=== PATIENT | male | born 1965 | race Caucasian/White ===

== ENCOUNTER 2023-07-07 13:36 | Outpatient (OUT) | payer MEDICARE, SELFPAY ==
--- NOTE | 2023-07-07 13:42 | US_ITS ---
The [address] [address] Patient Name: LIMA LOYD MRN: [id number] date: 1965 Sex: M Assigned Patient Location: US Current Patient Location: Accession/Order Number: [id number] Exam Date: 07/07/2023 13:55 Report Date: 07/07/2023 14:39 At the request of: ANTONIO ALAS Procedure: US renal BI EXAMINATION: US renal BI HISTORY: Kidney Stones COMPARISON: Ultrasound kidneys 03/03/2023 TECHNIQUE: Ultrasound examination was performed of the kidneys and urinary bladder. FINDINGS: RIGHT KIDNEY: Contains several echogenic structures favoring nonobstructing stones. Normal renal cortical parenchymal echogenicity. Color Doppler demonstrates blood flow within the kidney. Kidney: 11.7 x 6.2 x 6.0 cm LEFT KIDNEY: Contain several echogenic structures favoring nonobstructing stones. Normal renal cortical parenchymal echogenicity. Color Doppler demonstrates blood flow within the kidney. Kidney: 11.4 x 6.0 x 6.8 cm BLADDER: No visible wall thickening, mass, or calculi. US/US renal BI IMPRESSION: 1. Bilateral nonobstructing nephrolithiasis. Electronically authenticated by: RIVAS KINCAID Date: 07/07/2023 14:39
--- NOTE | 2023-07-07 13:51 | XR_ITS ---
The [address] [address] Patient Name: LIMA LOYD MRN: [id number] date: 1965 Sex: M Assigned Patient Location: US Current Patient Location: US Accession/Order Number: [id number] Exam Date: 07/07/2023 13:45 Report Date: 07/07/2023 16:13 At the request of: ANTONIO ALAS Procedure: XR abdomen 1V EXAM: XR abdomen 1V at 1352 hours HISTORY: Kidney Stones . Follow-up study. COMPARISON: 10/05/2022 TECHNIQUE: AP supine abdomen KUB x-ray FINDINGS: There is been interval removal of the left-sided ureteral stent. There are several small calcifications in the right kidney which appear a bit more numerous. There are multiple calcifications seen in the left kidney which appears smaller and fewer. No calcifications are seen along the routes of the ureters or in the pelvis. Gas and fecal material is seen throughout the colon, without evidence of obstruction or localized ileus. A fusion procedure can be seen in the lower lumbar spine. XR/XR abdomen 1V IMPRESSION: There appears to be increase in the number of small calcifications in the right kidney, and decrease in the number and size of the calcifications projecting over the left kidney. The left ureteral stent has been removed. No calcifications are seen in the pelvis. The bowel gas pattern is unremarkable without evidence of bowel obstruction or localized ileus. Degenerative and postsurgical changes are seen in the spine. Electronically authenticated by: ENRIQUETA BELLE Date: 07/07/2023 16:13
== END 2023-07-07 13:37 | disposition home or self-care (01) ==
LOC: US 13:36
PROVIDERS: PCP Family Medicine; Visit Provider Urology
DX: N20.0 Calculus of kidney (principal)
CPT/HCPCS: 74018; 76775

== ENCOUNTER 2023-12-18 08:20 | Outpatient (OUT) | payer MEDICARE, SELFPAY ==
[2023-12-18 08:52] LABS: Basophils Absolute Auto 0.1 10^3/uL (0.0-0.1); Basophils Percent Auto 0.8 % (0.2-2.0); Eosinophils Absolute Auto 0.2 10^3/uL (0.0-0.7); Eosinophils Percent Auto 2.1 % (0.9-7.0); Hemoglobin 13.8 g/dL (14.0-18.0); Immature Granulocytes Abs Auto 0.09 10^3/uL (0.00-0.03); Lymphocytes Absolute Auto 2.6 10^3/uL (1.2-3.8); Lymphocytes Percent Auto 29.7 % (20.5-60.0); Mean Corpuscular HGB Conc 31.4 g/dL (29.9-35.2); Mean Corpuscular Hemoglobin 25.1 pg (25.9-34.0); Mean Platelet Volume 9.1 fL (9.5-13.5); Monocytes Absolute Auto 0.7 10^3/uL (0.3-0.8); Neutrophils Absolute Auto 5.1 10^3/uL (1.4-6.5); Neutrophils Percent Auto 58.4 % (43.0-75.0); Platelet Count 229 10^3/uL (150-450); Red Cell Distribution Width 14.4 % (11.0-15.0); White Blood Count 8.7 10^3/uL (4.0-11.0)
[2023-12-18 09:10] LABS: Alanine Aminotransferase 30 U/L (16-63); Albumin Globulin Ratio 1.1; Albumin Level 3.8 g/dL (3.4-5.0); Alkaline Phosphatase 64 U/L (46-116); Anion Gap 11.8; Aspartate Amino Transferase 13 U/L (15-37); BUN Creatinine Ratio 8.2; Bilirubin Total 0.4 mg/dL (0.2-1.0); Calcium 8.3 mg/dL (8.5-10.1); Chloride 105 mmol/L (98-107); Chol HDL Ratio 3.3; Cholesterol 144 mg/dL (<=200); Estimated GFR (African America 59 (>=60); Estimated GFR (Non-African Ame 49 (>=60); Free T3 2.55 pg/mL (2.18-3.98); Globulin 3.6 g/dL; Glucose 160 mg/dL (74-106); HDL Cholesterol 43 mg/dL (40-60); LDL Cholesterol Calculated 88.2 mg/dL; Potassium 3.8 mmol/L (3.5-5.1); Sodium 142 mmol/L (136-145); Thyroid Stimulating Hormone 0.986 uIU/mL (0.358-3.740); Total Protein 7.4 g/dL (6.4-8.2); Triglycerides 64 mg/dL (<=150); VLDL CHOLESTEROL 12.8 mg/dL
[2023-12-18 10:29] LABS: Estimated Average Glucose 148 mg/dL; Glycohemoglobin A1C 6.8 % (4.5-6.2)
== END 2023-12-18 08:21 | disposition home or self-care (01) ==
LOC: LAB 08:22
PROVIDERS: PCP Family Medicine; Visit Provider Family Medicine
DX: M54.16 Radiculopathy, lumbar region (principal); G47.00 Insomnia, unspecified; B37.0 Candidal stomatitis; E78.9 Disorder of lipoprotein metabolism, unspecified; R73.09 Other abnormal glucose
CPT/HCPCS: 36415; 80053; 80061; 83036; 84436; 84443; 84481; 85025

== ENCOUNTER 2024-08-07 11:47 | Outpatient (OUT) | payer MEDICARE, SELFPAY ==
--- OUTSIDE RECORDS SUMMARY | 2024-08-07 12:09 | XMS_ITS | CCD ---
Author Organization [facility] Care Team Providers Care General Surgeon Name Role Phone Gaurav Scott Unavailable Tomi Leach Unavailable Jeff Terrell Primary Care Physician MD Jeff Terrell Primary Care Provider DO Gaurav Scott Attending Provider [phone] MD Tomi Leach Attending Provider [phone] MD Patito Sweet Attending Provider Ramiro George Unavailable MD Jeff Terrell Primary Care Provider DO Gaurav Scott Attending Provider MD Jeff Terrell Primary Care Provider MD Tomi Leach Attending Provider [phone] MD Patito Sweet Attending Provider MD Jeff Terrell Primary Care Provider MD Tomi Leach Attending Provider MD Jeff Terrell Primary Care Provider MD Patito Sweet Attending Provider MD Jeff Terrell Primary Care Provider MD Patito Sweet Attending Provider MD Jeff Terrell Primary Care Provider MD Patito Sweet Attending Provider GALLO Flores-MACIE Chavez Emergency Provider [phone] SRIDHAR MCLAUGHLIN Consulting Unavailable HOY ., DR TRAN Primary Care Unavailable LUE ., PATITO M Attending Unavailable LUE ., PATITO M Admitting Unavailable LUE ., PATITO M Consulting Unavailable JULES HAJI Consulting Unavailable HOY ., DR TRAN Primary Care Unavailable LUE ., PATITO M Attending Unavailable LUE ., PATITO M Admitting Unavailable ZIEBER, DR RIVAS Pires Unavailable HOY ., DR TRAN Primary Care Unavailable LUE ., PATITO M Attending Unavailable LUE ., PATTIO M Admitting Unavailable LUE ., PATITO M Consulting Unavailable HOY ., DR TRAN Consulting Unavailable HOY ., DR TRAN Primary Care Unavailable HOY ., DR TRAN Attending Unavailable HOY ., DR TRAN Admitting Unavailable ZIEBER, DR RIVAS Verdugo Consulting Unavailable HOY ., DR TRAN Primary Care Unavailable LUE ., PATITO M Attending Unavailable LUE ., PATITO M Admitting Unavailable LUE ., PATITO M Consulting Unavailable LIMA CAMPOS Consulting Unavailable HOY ., DR TRAN Primary Care Unavailable LUE ., PATITO M Attending Unavailable LUE ., PATITO M Admitting Unavailable LUE ., PATITO M Consulting Unavailable EDMUND, DR MYRA Allen Consulting Unavailable HOY ., DR TRAN Primary Care Unavailable LUE ., PATITO Juan Attending Unavailable LUE ., PATITO M Admitting Unavailable LUE ., PATITO M Consulting Unavailable HOY ., DR TRAN Consulting Unavailable HOY ., DR TRAN Primary Care Unavailable HOY ., DR TRAN Attending Unavailable HOY ., DR TRAN Admjenae Unavailable MYRA PAREDES Unavailable ZIEBER, DR RIVAS Verdugo Consulting Unavailable HOY ., DR TRAN Primary Care Unavailable LUE ., PATITO M Attending Unavailable LUE ., PATITO M Admitting Unavailable LUE ., PATITO M Consulting Unavailable HOY ., DR TRAN Consulting Unavailable HOY ., DR TRAN Primary Care Unavailable HOY ., DR TRAN Attending Unavailable HOY ., DR TRAN Admitting Unavailable LUE ., PATITO Martinez Consulting Unavailable HOY ., DR TRAN Primary Care Unavailable LUE ., PATITO M Attending Unavailable LUE ., PATITO M Admitting Unavailable MD Jeff Terrell Primary Care Provider DO Gaurav Scott Attending Provider MD Patito Sweet Other Provider MD Jeff Terrell Primary Care Provider MD Tomi Leach Attending Provider [phone] MD Jeff Terrell Primary Care Provider Self, Referral Attending Provider Unavailable DO Gaurav Scott A Attending Provider MD Jeff Terrell Primary Care Provider MD Tomi Leach Attending Provider DO Gaurav Scott Attending Provider [phone] Self, Referral Attending Provider Unavailable CHARLI Black Emergency Provider MD Patito Sweet Attending Provider Janine Maynard Unavailable Melissa Castellano Unavailable MD Jeff Terrell Primary Care Provider MD Melissa Castellano Attending Provider MD Jeff Terrell Primary Care Provider DO Gaurav Scott Attending Provider MD Jeff Terrell Primary Care Provider MD Melissa Castellano Attending Provider MD Patito Sweet Attending Provider DO Gaurav Scott A Attending Provider [phone] MD Jeff Terrell Primary Care Provider MD Jeff Terrell Primary Care Provider MD Jeff Terrell Primary Care Provider DO Gaurav Scott Attending Provider [phone] MD Patito Sweet Attending Provider Patito Sweet Attending Unavailable Patito Sweet Attending Unavailable Patito Sweet Attending Unavailable Patito Sweet Attending Unavailable JANINE GARCIA Attending Unavailable Lue, Patito M. Attending Unavailable Lue, Patito M. Attending Unavailable Garrett MICHAEL Attending Unavailable Lue, Patito M. Attending Unavailable Lue, Patito M. Referring Unavailable Lue, Patito M. Admitting Unavailable Lue, Patito M. Attending Unavailable MD Jeff Terrell Primary Care Provider [phone] DO Gaurav Scott Attending Provider DO Gaurav Scott Attending Provider [phone] Melissa Castellano Admitting Unavailable Melissa Castellano Attending Unavailable Hoy, Jeff M Primary Care Unavailable Hoy, Jeff M Primary Care Unavailable Sofia, Tony Admitting Unavailable Sofia, Tony Attending Unavailable IlanerTomi Attending Unavailable Felter Tomi Admitting Unavailable Hoy, Jeff M Primary Care Unavailable Self, Referral Admitting Unavailable Self, Referral Attending Unavailable Hoy, Jeff M Primary Care Unavailable Hoy, Jeff M Primary Care Unavailable Lue, Patito M Admitting Unavailable Lue, Patito M Attending Unavailable Davida, Gaurav A Admitting Unavailable Hoy, Jeff M Primary Care Unavailable Davida, Gaurav A Attending Unavailable Hoy, Jeff M Primary Care Unavailable Davida, Gaurav A Attending Unavailable Davida, Gaurav A Admitting Unavailable Hoy, Jeff M Primary Care Unavailable Lue, Patito M Admitting Unavailable Lue, Patito M Attending Unavailable Hoy, Jeff M Primary Care Unavailable Davida, Gaurav A Attending Unavailable Davida, Gaurav A Admitting Unavailable Hoy, Jeff M Primary Care Unavailable Davida, Gaurav A Admitting Unavailable Davida, Gaurav A Attending Unavailable Lue, Patito M Admitting Unavailable Lue, Patito M Attending Unavailable Hoy, Jeff M Primary Care Unavailable Hoy, Jeff M Primary Care Unavailable Davida, Gaurav A Admitting Unavailable Davida, Gaurav A Attending Unavailable Jeff Terrell MD Primary Care Provider [phone] VENKAT PAREDES Attending Unavailable Allergies Allergy Classification Reported Allergen(s) Allergy Type Date of Onset Reaction(s) Facility (20 sources) Amoxicillin / Clavulanate; Translations: [amoxicillin-cla vulanate] Drug Allergy hives, Unknown (qualifier value), Weal (disorder) [facility] Other Comment on above: listed as allergy on 05/26/22 pt states he has no issues with this medicaiton (20 sources) Morphine; Translations: [morphine] Drug Allergy 02-23-20 17 hives, Unknown (qualifier value), Itching [facility] Other Comment on above: all in morphine fami ly (20 sources) traMADol Drug Allergy 02-08-20 21 Unknown, Itching [facility] (20 sources) Bee/Wasp/Ant venom; Translations: [Bee Stings] Drug allergy 02-29-20 23 Swelling [facility] (20 sources) Amoxicillin Drug Allergy 02-06-20 21 [facility] (20 sources) Clavulanate Drug Allergy 02-06-20 21 [facility] (10 sources) oxyCODONE Drug Allergy 02-06-20 21 [facility] (14 sources) Ciprofloxacin; Translations: [ciprofloxacin] Drug Allergy Unknown (qualifier value) [facility] (11 sources) Amoxicillin / Clavulanate; Translations: [Augmentin] Drug Allergy 04-28-20 13 hives [facility] (2 sources) Acetaminophen / oxyCODONE Drug Allergy 11-03-19 17 [facility] (1 source) bee venom Drug allergy (disorder) [facility] (2 sources) Morphine Drug Allergy 11-03-19 17 [facility] (1 source) traMADol Drug Allergy 06-07-20 16 [facility] (2 sources) Morphine Drug Allergy [facility] Other (2 sources) Amoxicillin-Pot Clavulanate Drug Intolerance 02-23-20 17 Hives, Itching, Rash, Swelling [facility] Medications Current Medications Medication Drug Class(es) Dates Sig (Normalized) Sig (Original) acetaminophen 500 mg oral tablet (20 sources) Start: 03-04-2021 take 2 tablets by mouth every six hours as needed for pain acetaminophen 500 mg Tab 1,000 mg = 2 tab(s), Oral, q6hr, PRN as needed for pain, Refills(s) 0 Start Date: 03/04/21 Status: Ordered Start: 03-04-2021 acetaminophen 500 mg Tab Refills(s) 0 Start Date: 03/04/21 Status: Ordered Start: 02-12-2021 End: 08-12-2022 take 500 mg by mouth every six hours Acetaminophen Discontinued 500 MG PO Q6H 120 30 February 12, 2021 12:00am August 12, 2022 1:40pm Start: 02-05-2021 End: 02-12-2021 take 1000 mg by mouth every eight hours Acetaminophen Discontinued 1000 MG PO Q8H February 05, 2021 12:00am February 12, 2021 8:59am ALPRAZolam 0.25 mg oral tablet (20 sources) Benzodiazepine Start: 09-26-2023 Xanax 0.25 mg Tab 0.25 mg = 1 tab(s), Oral, PRN for anxiety Start Date: 09/26/23 Status: Ordered Start: 09-30-2022 End: 11-29-2022 take 0.25 mg by mouth once daily at bedtime Alprazolam Discontinued 0.25 MG PO Daily at bedtime September 30, 2022 1:00am November 29, 2022 10:09am Start: 09-21-2022 take 0.5-1 tablets b y mouth three times daily as needed for anxiety alprazolam 0.25 mg Tab 0.5-1 tabs, Oral, TID, PRN as needed for anxiety, Refills(s) 0 Start Date: 09/21/22 Status: Ordered Start: 09-21-2022 alprazolam 0.2 5 mg Tab 21 tab(s), Refills(s) 0 Start Date: 09/21/22 Status: Ordered Xanax Active amitriptyline hydrochloride 50 mg oral tablet (19 sources) Tricyclic Antidepressant Start: 10-30-2023 take 50 mg by mouth once daily Amitriptyline Active 50 MG PO Daily October 30, 2023 1:00am celecoxib 200 mg oral capsule (20 sources) Nonsteroidal Anti-inflammatory Drug Start: 12-02-2023 take 1 capsule by mouth twice daily at mealtime Celecoxib Active 200 MG PO December 02, 2023 1:00am FreeTextSig: TAKE ONE CAPSULE BY MOUTH TWICE A DAY WITH FOOD; Note: Source Status: Not-Taking\PRN; Refills: 3; Qty: 60 Capsule; Provider: Davida Nolasco ( ) Start: 05-09-2022 End: 11-29-2022 take 200 mg by mouth twice daily Celecoxib Discontinued 200 MG PO Twice daily July 26, 2022 12:00am November 29, 2022 10:10am clindamycin 300 mg oral capsule (2 sources) Lincosamide Antibacterial Start: 06-15-2021 Clindamycin HCl 300 MG 2 capsules Orally 1 hour before dental procedure for 1 day May, Active cyclobenzaprine hydrochloride 10 mg oral tablet (20 sources) Muscle Relaxant Start: 07-18-2024 cyclobenzaprin e (Flexeril) 10 MG tablet 07/18/2024 Active Start: 02-01-2023 take 0.5-1 tablets b y mouth every eight hours Cyclobenzaprine HCl 10 MG 1/2 to 1 tablet Orally Every 8 hours for 14 days Jan, Active Start: 08-12-2022 End: 08-15-2023 take 10-20 mg by mouth once daily at bedtime Cyclobenzaprine Discontinued 10 - 20 MG PO Daily at bedtime August 12, 2022 12:00am August 15, 2023 9:37am Start: 08-02-2022 take 1 tablet by marcela twice daily as needed Cyclobenzaprine HCl 10 MG 1 tablet as needed Orally up to twice daily as needed for 30 day(s) Nov, Not-Taking/PRN Start: 02-02-2021 End: 02-05-2021 Cyclobenzaprine Discontinued 5 MG PO As Directed February 02, 2021 12:00am February 05, 2021 6:50pm fluconazole 100 mg oral tablet (5 sources) Azole Antifungal Start: 11-03-2023 fluconazole 1 00 mg Tab Refills(s) 0 Start Date: 11/03/23 Status: Ordered Start: 10-21-2022 End: 11-04-2022 fluconazole 200 mg Tab 200 m g = 1 tab(s), Oral, Daily, Discontinue Cipro for ear infection while taking Fluconazole. Can restart Cipro once Fluconazole course is completed., X 14 day(s), # 14 tab(s), Refills(s) 0, Pharmacy: [facility] [id number], 188, cm, 09/21/22 8:23:0... Start Date: 10/21/22 Stop Date: 11/04/22 Status: Ordered furosemide 40 mg oral tablet (10 sources) Loop Diuretic Start: 10-21-2022 furosemide 40 mg Tab Refills(s) 0 Start Date: 10/21/22 Status: Ordered gabapentin 600 mg oral tablet (20 sources) Anti-epileptic Agent Start: 10-30-2023 take 1 tablet by mouth three times daily gabapentin (Neurontin) 600 MG tablet 1 tablet Orally three times daily for 30 days 10/30/2023 Active Start: 06-14-2022 End: 10-30-2023 take 300 mg by mouth twice daily Gabapentin Discontinued 300 MG PO Twice daily June 14, 2022 8:26am October 30, 2023 8:50am Start: 06-14-2022 take 600 mg by mouth twice daily Gabapentin Active 600 MG PO Twice daily June 14, 2022 8:26am Start: 06-14-2022 take 600 mg by mouth twice daily Gabapentin Active 600 MG PO Twice daily June 14, 2022 8:26am Start: 05-26-2022 take 1 tablet by marcela twice daily gabapentin 600 mg Tab 600 mg = 1 tab(s), Oral, BID, Refills(s) 0 Start Date: 05/26/22 Status: Ordered Start: 02-05-2021 End: 06-14-2022 take 300 mg by mouth three times daily Gabapentin Discontinued 300 MG PO Three times daily 90 30 February 12, 2021 12:00am June 14, 2022 8:26am Start: 09-28-2017 End: 02-05-2021 take 1200 mg by mouth at bedtime Gabapentin Discontinued 1200 MG PO Bedtime September 28, 2017 1:00am February 05, 2021 5:19pm take 2 tablets by mo [facility] every twenty-four hours Gabapentin 600 MG 2 capsule Orally Once a day Active hyoscyamine sulfate 0.125 mg oral tablet (8 sources) Start: 12-21-2022 take 1 tablet by mouth four times daily as needed for pain Levsin 0.125 mg SL Tab 0.125 mg = 1 tab(s), Oral, QID, PRN abdominal pain, # 90 tab(s), Refills(s) 2, Pharmacy: [facility] [id number], 188, cm, 12/21/22 7:44:00 EST, Height/Length Dosing, 132, kg, 12/21/22 7:44:00 EST, Weight Dosing Start Date: 12/21/22 Status: Ordered Start: 10-05-2022 take 1 tablet by marcela th four times daily as needed for pain Levsin 0.125 mg SL Tab 0.125 mg = 1 tab(s), Oral, QID, PRN abdominal pain, Refills(s) 0 Start Date: 10/05/22 Status: Ordered ibuprofen 800 mg oral tablet (5 sources) Nonsteroidal Anti-inflammatory Drug Start: 05-03-2021 take 1 tablet by mouth three times daily at mealtime as needed Ibuprofen 800 MG 1 tablet with food or milk as needed Orally Three times a day for 30 days Apr, Active irbesartan 300 mg oral tablet (20 sources) Angiotensin 2 Receptor Elli Start: 06-23-2024 irbesartan (Avapro) 300 MG tablet 06/23/2024 Active Start: 02-02-2021 End: 12-02-2023 take 300 mg by mouth once daily in the morning Irbesartan Discontinued 300 MG PO Every morning February 28, 2023 9:05am December 02, 2023 3:57pm Iron Chews (12 sources) Start: 09-21-2022 take 1 mg by mouth once daily Iron Chews mg, Oral, Daily, Refills(s) 0 Start Date: 09/21/22 Status: Ordered levoFLOXacin 500 mg oral tablet (5 sources) Quinolone Antimicrobial Start: 09-26-2023 End: 09-29-2023 take 1 tablet by mouth every twenty-four hours Levaquin 500 mg Tab 500 mg = 1 tab(s), Oral, q24hr, X 3 day(s), # 3 tab(s), Refills(s) 0, Pharmacy: [facility] [id number], 187, cm, 09/26/23 7:40:00 EST, Height/Length Dosing, 138.9, kg, 09/26/23 7:40:00 EST, Weight Dosing Start Date: 09/26/23 Stop Date: 09/29/23 Status: Ordered Start: 11-04-2022 End: 11-18-2022 take 1 tablet by mouth once daily Levaquin 500 mg Tab 500 mg = 1 tab(s), Oral, Daily, X 14 day(s), # 14 tab(s), Refills(s) 0, Pharmacy: [facility] [id number], 188, cm, 11/04/22 9:22:00 EST, Height/Length Dosing, 132, kg, 11/04/22 9:22:00 EST, Weight Dosing Start Date: 11/04/22 Stop Date: 11/18/22 Status: Ordered levoFLOXacin 750 MG (Prior Auth#:[id number]) Oral for 10 Active lidocaine 0.05 mg/mg medicated patch (6 sources) Antiarrhythmic, Amide Local Anesthetic Start: 11-18-2022 lidocaine Top 5% satinder m Patch 1 patch(es), Topical, Daily, 7 patch(es), Refill(s) 3, apply 12 hours on and 12 hours off daily, [facility] [id number], 188, cm, 11/04/22 9:22:00 EST, Height/Length Dosing, 132, kg, 11/04/22 9:22:00 EST, Weight Dosing Start Date: 11/18/22 Status: Ordered Start: 10-21-2022 End: 10-28-2022 lidocaine Top 5% film Patch 1 patch(es), Topical, Daily for 7 day(s), 7 patch(es), Refill(s) 0, Apply to affected area for up to 12 hours a day., [facility] [id number], 188, cm, 09/21/22 8:23:00 EST, Height/Length Dosing, 132, kg, 09/21/22 8:23:00 EST, Weight Dosing Start Date: 10/21/22 Stop Date: 10/28/22 Status: Ordered methylPREDNISolone 4 mg oral tablet (14 sources) Corticosteroid Start: 04-29-2024 take 1 tablet by mouth once Methylprednisolone (Medrol (Lee)) 4 mg tablets,dose pack Active 0 PO per package directions April 29, 2024 12:00am PO PER PKG DIR for 6 days Start: 10-25-2023 Medrol 4 MG as directed Orally Oct, Active Start: 05-09-2022 Medrol 4 MG as directed Orally for 6 days Apr, Active naproxen 500 mg oral tablet (17 sources) Nonsteroidal Anti-inflammatory Drug Start: 12-02-2023 take 1 tablet by mouth every twelve hours at mealtime as needed Naproxen Active 500 MG PO Every 12 hours December 02, 2023 1:00am FreeTextSi tablet with food or milk as needed Orally every 12 hrs; Note: Source Status: Taking; Refills: 1; Qty: 60 Tablet; Provider: Davida Nixon Start: 10-25-2023 take 1 tablet by marcela th every twelve hours at mealtime as needed Naproxen 500 MG 1 tablet with food or milk as needed Orally every 12 hrs for 30 days Oct, Active Start: 07-13-2023 End: 07-27-2023 take 1 tablet by mouth twice daily at mealtime naproxen 500 mg Tab 500 mg = 1 tab(s), Oral, BID, Take with food, X 2 week(s), # 28 tab(s), Refills(s) 0, Pharmacy: [facility] [id number], 188, cm, 07/13/23 9:45:00 EDT, Height/Length Dosing, 132, kg, 07/13/23 9:45:00 EDT, Weight Dosing Start Date: 07/13/23 Stop Date: 07/27/23 Status: Ordered oxybutynin chloride 5 mg oral tablet (20 sources) Cholinergic Muscarinic Antagonist Start: 09-26-2023 take 1 tablet by mouth three times daily oxybutynin 5 mg Tab 5 mg = 1 tab(s), Oral, TID, # 30 tab(s), Refills(s) 0, Pharmacy: [facility] [id number], 187, cm, 09/26/23 7:40:00 EST, Height/Length Dosing, 138.9, kg, 09/26/23 7:40:00 EST, Weight Dosing Start Date: 09/26/23 Status: Ordered Start: 11-29-2022 End: 08-15-2023 take 5 mg by mouth twice daily Oxybutynin Chloride Dis continued 5 MG PO Twice daily November 29, 2022 1:00am August 15, 2023 9:37am Start: 09-30-2022 End: 11-29-2022 take 5 mg by mouth three times daily Oxybutynin Chloride Discontinued 5 MG PO Three times daily 60 September 30, 2022 1:00am November 29, 2022 10:11am potassium citrate 10 meq extended release oral tablet (6 sources) Start: 08-18-2023 take 1 tablet by mouth twice daily potassium CITRATE 10 mEq ER Tab 10 mEq, 1 tab(s), Oral, BID, 180 tab(s), Refill(s) 3, [facility] [id number], 188, cm, 08/18/23 10:17:00 EDT, Height/Length Dosing, 132, kg, 08/18/23 10:17:00 EDT, Weight Dosing Start Date: 08/18/23 Status: Ordered Start: 05-31-2023 take 1 tablet by marcela th twice daily potassium CITRATE 10 mEq ER Tab 10 mEq, 1 tab(s), Oral, BID, 90 tab(s), Refill(s) 0, [facility] [id number], 188, cm, 05/31/23 8:37:00 EDT, Height/Length Dosing, 132, kg, 05/31/23 8:37:00 EDT, Weight Dosing Start Date: 05/31/23 Status: Ordered QUEtiapine 50 mg oral tablet (1 source) Atypical Antipsychotic Start: 08-18-2023 quetiapine 50 mg oral tablet Refills(s) 0 Start Date: 08/18/23 Status: Ordered sulfamethoxazole 800 mg / trimethoprim 160 mg oral tablet (1 source) Dihydrofolate Reductase Inhibitor Antibacterial, Sulfonamide Antimicrobial Start: 07-13-2023 End: 08-10-2023 take 1 tablet by mouth twice daily Bactrim D.S. 800 mg-160 mg Tab 1 tab(s), Oral, BID for 4 week(s), 56 tab(s), Refill(s) 0, [facility] [id number], 188, cm, 07/13/23 9:45:00 EDT, Height/Length Dosing, 132, kg, 07/13/23 9:45:00 EDT, Weight Dosing Start Date: 07/13/23 Stop Date: 08/10/23 Status: Ordered tadalafil 20 mg oral tablet (20 sources) Phosphodiesterase 5 Inhibitor Start: 05-09-2024 tadalafil (Cialis) 20 MG tablet Take 20 mg by mouth 05/09/2024 Active Start: 05-09-2024 Cialis 20 mg T ab 20 mg = 1 tab(s), Oral, As Directed, Take one tab by mouth one to two hours prior to sexual activity. Do NOT exceed 20 mg (1 tab) in 24 hours., # 30 tab(s), Refills(s) 3, Pharmacy: [facility] [id number], 188, cm, 05/09/24 10:10:00 EDT, Height/Length Dosing, 144, kg, 05/09/24 10:10:00 EDT, Weight Dosing Start Date: 05/09/24 Status: Ordered Start: 05-31-2023 take 1 tablet by marcela th every hour as needed, then take 2 tablets by mouth every twenty-four hours as needed Cialis 10 mg Tab 10 mg = 1 tab(s), Oral, As Directed, PRN for erectile dysfunction, Take one hour prior to sexual intercourse. Do not exceed 20mg within 24 hrs., # 30 tab(s), Refills(s) 0, Pharmacy: [facility] [id number], 188, cm, 05/31/23 8:37:00 EDT, Height/Length Dosing, 132, kg, 05/31/23 8:37:00 EDT, Weight Dosing Start Date: 05/31/23 Status: Ordered Start: 09-21-2022 take 1 tablet by marcela th every twenty-four hours Cialis 5 MG 1 tablet as needed Orally Once a day for 30 day(s) Nov, Active Start: 09-21-2022 End: 10-30-2023 take 1 tablet by mouth once daily in the morning Tadalafil (Cialis) 10 mg Tablet Discontinued 5 MG PO Every morning September 30, 2022 1:00am October 30, 2023 8:49am Start: 06-22-2022 take 1 mg by mouth once daily Cialis 20 mg Tab mg tab(s), Oral, Daily, Refills(s) 0 Start Date: 06/22/22 Status: Ordered temazepam 30 mg oral capsule (20 sources) Benzodiazepine Start: 12-02-2023 temazepam (Res toril) 30 MG capsule 12/02/2023 Active Start: 05-26-2022 End: 01-15-2024 take 30 mg by mouth once daily at bedtime Temazepam Discontinued 30 MG PO Daily at bedtime August 12, 2022 12:00am October 30, 2023 8:50am traMADol hydrochloride 50 mg oral tablet (20 sources) Opioid Agonist Start: 02-28-2023 End: 12-02-2023 take 50 mg by mouth every four hours Tramadol Discontinued 50 MG PO Q4H 14 August 29, 2023 1:00am October 30, 2023 8:51am Start: 02-07-2023 End: 05-20-2024 traMADol (Ultram) 50 MG tabl et Twice daily 08/18/2023 Active Start: 07-26-2022 End: 11-29-2022 Tramadol Discontinued 50 MG PO As Directed July 26, 2022 12:00am November 29, 2022 10:12am Start: 07-26-2022 End: 11-29-2022 take 1 tablet by mouth every twenty-four hours traMADol HCl 50 MG 1 tablet as needed Orally Once a day for 30 days Jul, Not-Taking/PRN Start: 07-26-2022 End: 11-29-2022 take 1 tablet by mouth every six hours traMADOL 50 mg Tab 50 mg = 1 tab(s), Oral, q6hr, # 12 tab(s), Refills(s) 0, Pharmacy: [facility] [id number], 188, cm, 11/04/22 9:22:00 EST, Height/Length Dosing, 132, kg, 11/04/22 9:22:00 EST, Weight Dosing Start Date: 11/18/22 Status: Ordered Start: 06-27-2022 take 1 tablet by marcela th every twenty-four hours traMADol HCl 50 MG 1 tablet as needed Orally Once a day for 30 days Jun, Active Start: 03-03-2021 take 1 tablet by marcela th every twenty-four hours traMADol HCl 50 MG 1 tablet as needed Orally Once a day February, Not-Taking Start: 02-12-2021 End: 06-14-2022 take 50 mg by mouth every four hours Tramadol Discontinued 50 MG PO Q4H 40 7 February 12, 2021 12:00am June 14, 2022 8:26am Start: 02-05-2021 End: 02-12-2021 take 100 mg by mouth every six hours Tramadol Discontinued 100 MG PO Q6H February 05, 2021 12:00am February 12, 2021 8:59am Completed/Discontinued Medications Medication Drug Class(es) Dates Sig (Normalized) Sig (Original) acetaminophen 325 mg / HYDROcodone bitartrate 5 mg oral tablet (20 sources) Opioid Agonist Start: 10-30-2023 End: 12-04-2023 take 1 tablet by mouth every four to six hours Hydrocodone-Acetami nophen Discontinued 1 - 2 TAB PO EVERY 4-6 HOURS 12 02October 30, 2023 December 04, 2023 9:43am Start: 09-26-2023 End: 09-29-2023 take 1 tablet by mouth every six hours for pain [place] 325 mg-5 mg oral tablet 1 tab(s), Oral, q6hr for pain for 3 day(s), 12 tab(s), Refill(s) 0, [facility] [id number], 187, cm, 09/26/23 7:40:00 EST, Height/Length Dosing, 138.9, kg, 09/26/23 7:40:00 EST, Weight Dosing Start Date: 09/26/23 Stop Date: 09/29/23 Status: Ordered Start: 04-25-2023 End: 08-15-2023 take 1 tablet by mouth every four hours Hydrocodone-Acetaminophen Discontinued 1 TAB PO Q4H 10 April 25, 2023 August 15, 2023 9:37am Start: 11-24-2022 take 1 tablet by marcela three times daily as needed HYDROcodone-Acetaminophen 5-325 MG 1 tablet as needed Orally up to three times daily as needed for 7 days Nov, Not-Taking/PRN Start: 10-21-2022 acetaminophen- hydrocodone 325 mg-5 mg oral tablet Refill(s) 0 Start Date: 10/21/22 Status: Ordered Start: 09-30-2022 End: 02-28-2023 take 1 tablet by mouth every six hours Hydrocodone-Acetaminophen Discontinued 1 TAB PO Q6H 12 January 30, 2023 February 28, 2023 9:03am Start: 01-12-2018 End: 11-24-2020 take 1 tablet by mouth every four hours as needed for pain Hydrocodone-Acetaminophen ([place]) 5-325 mg tablet Discontinued 1 TAB PO Q4H January 12, 2018 November 24, 2020 11:16am 1 or 2 p.o. q 4 hours prn pain Start: 09-28-2017 End: 11-24-2020 take 1 tablet by mouth every four to six hours Hydrocodone-Acetaminophen ([place]) 5-325 mg tablet Discontinued 1 TAB PO EVERY 4-6 HOURS September 28, 2017 November 24, 2020 11:15am ARIPiprazole 5 mg oral tablet (20 sources) Atypical Antipsychotic Start: 09-28-2017 End: 11-24-2020 take 1 tablet by mouth at bedtime Aripiprazole (Abilify) 5 mg Tablet Discontinued 5 MG PO Bedtime September 28, 2017 1:00am November 24, 2020 11:11am aspirin 81 mg delayed release oral tablet (20 sources) Platelet Aggregation Inhibitor, Nonsteroidal Anti-inflammatory Drug Start: 08-12-2022 End: 11-29-2022 take 81 mg by mouth once daily at bedtime Aspirin Discontinued 81 MG PO Daily at bedtime August 12, 2022 1:38pm November 29, 2022 10:09am Start: 03-04-2021 aspirin 81 mg Chew Tab 81 mg = 1 tab(s), Chewed, Daily, Refills(s) 0 Start Date: 03/04/21 Status: Ordered Start: 02-17-2021 aspirin 81 mg Chew Tab Refills(s) 0 Start Date: 03/04/21 Status: Ordered Start: 02-05-2021 End: 08-12-2022 take 81 mg by mouth twice daily Aspirin Discontinued 81 MG PO Twice daily February 12, 2021 8:58am August 12, 2022 1:40pm baclofen 20 mg oral tablet (20 sources) gamma-Aminobutyric Acid-ergic Agonist Start: 02-12-2021 End: 06-14-2022 take 20 mg by mouth once daily in the morning Baclofen Discontinued 20 MG PO Every morning February 12, 2021 12:00am June 14, 2022 8:25am Start: 11-24-2020 End: 06-14-2022 take 40 mg by mouth once daily at bedtime Baclofen Discontinued 40 MG PO Daily at bedtime February 12, 2021 12:00am June 14, 2022 8:26am Start: 09-28-2017 End: 02-12-2021 take 20 mg by mouth once daily in the morning Baclofen Discontinued 20 MG PO Every morning September 28, 2017 1:00am February 12, 2021 8:59am ciprofloxacin 500 mg oral tablet (20 sources) Quinolone Antimicrobial Start: 11-02-2022 End: 11-29-2022 take 1 tablet by mouth twice daily Ciprofloxacin Hcl (Cipro) 500 mg tablet Discontinued 500 MG PO Twice daily November 02, 2022 1:00am November 29, 2022 10:10am citalopram 40 mg oral tablet (20 sources) Serotonin Reuptake Inhibitor Start: 09-28-2017 End: 08-12-2022 take 40 mg by mouth at bedtime Citalopram Discontinued 40 MG PO Bedtime 30 February 12, 2021 12:00am August 12, 2022 1:40pm take 0.5 tablet by m outh every twenty-four hours CeleXA 40 MG 0.5 tablet Orally Once a day Active diclofenac potassium 50 mg oral tablet (20 sources) Nonsteroidal Anti-inflammatory Drug Start: 09-28-2017 End: 01-12-2018 Diclofenac Potassium Discontinued TABLET September 28, 2017 1:00am January 12, 2018 8:02am Voltaren 1 % dimas ly 1-2 grams to affected area Externally BID Active docusate sodium 100 mg oral capsule (20 sources) Start: 01-28-2021 End: 06-14-2022 take 1 capsule by mouth twice daily Docusate Sodium (Dok) 100 mg Capsule Discontinued 100 MG PO Twice daily 60 February 12, 2021 12:00am June 14, 2022 8:26am doxycycline hyclate 100 mg oral tablet (14 sources) Tetracycline-class Drug Start: 10-30-2023 End: 12-02-2023 take 100 mg by mouth twice daily Doxycycline Hyclate Discontinued 100 MG PO Twice daily 10 October 30, 2023 1:00am December 02, 2023 3:55pm lisinopril 20 mg oral tablet (20 sources) Angiotensin Converting Enzyme Inhibitor Start: 09-28-2017 End: 02-03-2021 take 40 mg by mouth once daily Lisinopril Discontinued 40 MG PO Daily September 28, 2017 1:00am February 03, 2021 9:28am take 1 tablet by marcela th every twenty-four hours Lisinopril 40 MG 1 tablet Orally Once a day Active meloxicam 15 mg oral tablet (20 sources) Nonsteroidal Anti-inflammatory Drug Start: 02-02-2021 End: 02-05-2021 take 15 mg by mouth once daily Meloxicam Discontinued 15 MG PO Daily February 02, 2021 12:00am February 05, 2021 5:19pm Multivitamin preparation (20 sources) Start: 11-24-2020 End: 02-12-2021 take 2 tablets by mouth once daily in the morning Multivitamin Discontinued 2 TAB PO Every morning November 24, 2020 12:00am February 12, 2021 7:59am Start: 11-24-2020 End: 02-12-2021 take 2 tablets by mouth once daily in the morning Multivitamin Discontinued 2 TAB PO Every morning November 24, 2020 1:00am February 12, 2021 8:59am Multivitamin With Folic Acid (Thera) 400 mcg Tablet (20 sources) Start: 02-12-2021 End: 11-29-2022 take 2 tablets by mouth once daily in the morning Multivitamin With Folic Acid (Thera) 400 mcg Tablet Discontinued 2 TAB PO Every morning 60 February 12, 2021 12:00am November 29, 2022 10:11am Start: 02-12-2021 End: 11-29-2022 take 2 tablets by mouth once daily in the morning Multivitamin With Folic Acid (Thera) 400 mcg Tablet Discontinued 2 TAB PO Every morning 60 February 11, 2021 11:00pm November 29, 2022 9:11am Start: 02-12-2021 take 2 tablets by mo uth once daily in the morning Multivitamin With Folic Acid (Thera) 400 mcg Tablet Active 2 TAB PO Every morning 60 February 11, 2021 11:00pm Start: 02-12-2021 take 2 tablets by mo uth once daily in the morning Multivitamin With Folic Acid (Thera) 400 mcg Tablet Active 2 TAB PO Every morning 60 February 12, 2021 12:00am nabumetone 500 mg oral tablet (20 sources) Nonsteroidal Anti-inflammatory Drug Start: 11-24-2020 End: 02-02-2021 take 1000 mg by mouth twice daily Nabumetone Discontinued 1000 MG PO Twice daily November 24, 2020 1:00am February 02, 2021 7:53am Nabumetone 500 M G (Prior Auth#:[id number]) Oral for 30 Active phentermine hydrochloride 37.5 mg oral tablet (20 sources) Sympathomimetic Amine Anorectic Start: 02-02-2021 End: 02-05-2021 take 1 tablet by mouth once daily in the morning Phentermine (Adipex-P) 37.5 mg Tablet Discontinued 37.5 MG PO Every morning February 02, 2021 12:00am February 05, 2021 5:19pm polysaccharide iron complex 150 mg oral capsule (20 sources) Start: 02-12-2021 End: 06-14-2022 Polysaccharide Iron Complex (Ferrex 150) 150 mg iron Capsule Discontinued 150 MG PO Every morning February 12, 2021 12:00am June 14, 2022 8:26am predniSONE 50 mg oral tablet (20 sources) Start: 01-30-2023 End: 02-28-2023 take 50 mg by mouth once daily at mealtime Prednisone Discontinued 50 MG PO Daily 5 January 30, 2023 12:00am February 28, 2023 9:03am administer with food or milk tamsulosin hydrochloride 0.4 mg oral capsule (20 sources) alpha-Adrenergic Elli Start: 08-23-2022 End: 11-29-2022 take 0.4 mg by mouth once daily at bedtime Tamsulosin Discontinued 0.4 MG PO Daily at bedtime September 30, 2022 1:00am November 29, 2022 10:11am Start: 02-05-2021 End: 06-14-2022 take 0.4 mg by mouth once daily in the morning Tamsulosin Discontinued 0.4 MG PO Every morning February 12, 2021 12:00am June 14, 2022 8:26am triamcinolone acetonide 40 mg/ml injectable suspension (20 sources) Corticosteroid Start: 09-20-2023 Kenalog-40 Sep, 40 mg Start: 02-20-2018 Kenalog -40 mg February, 40 mg Walker - (5 sources) Start: 12-04-2020 John - jillian ann Nov, Not-Taking Problems Active Problems Problem Classification Problem Date Documented Date Episodic/Chronic Abdominal pain (2 sources) Unspecified abdominal pain Episodic Acute and unspecified renal failure (20 sources) Injury of kidney; Translations: [Acute kidney failure, unspecified] 02-09-2021 Episodic Acute posthemorrhagic anemia (20 sources) Anemia following acute postoperative blood loss; Translations: [Acute posthemorrhagic anemia] 02-06-2021 Episodic Administrative/social admission (20 sources) Other reduced mobility; Translations: [Impaired mobility and activities of daily living] 02-06-2021 Episodic Anxiety disorders (14 sources) Anxiety 10-05-2022 Chronic Calculus of urinary tract (20 sources) Kidney stone; Translations: [Calculus of kidney] Onset: 06-22-2022 Episodic Complications of surgical procedures or medical care (20 sources) Postoperative retention of urine; Translations: [Other postprocedural complications and disorders of genitourinary system] 02-04-2021 Episodic Congestive heart failure; nonhypertensive (1 source) Unspecified diastolic (congestive) heart failure; Translations: [UNSPECIFIED DIASTOLIC HEART FAILURE] Onset: 10-03-2022 Chronic Crushing injury or internal injury (5 sources) Contusion of kidney; Translations: [Minor contusion of unspecified kidney, initial encounter] Onset: 10-13-2022 Episodic Diseases of white blood cells (20 sources) Leukocytosis; Translations: [Elevated white blood cell count, unspecified] 02-06-2021 Chronic Essential hypertension (15 sources) Hypertensive disorder; Translations: [Essential (primary) hypertension] Onset: 01-19-2023 10-05-2022 Chronic Genitourinary symptoms and ill-defined conditions (20 sources) Blood in urine; Translations: [Gross hematuria] Onset: 06-08-2022 Episodic Hyperplasia of prostate (20 sources) Benign prostatic hypertrophy with outflow obstruction; Translations: [Benign prostatic hyperplasia with lower urinary tract symptoms] Onset: 07-12-2022 Chronic Hypertension with complications and secondary hypertension (4 sources) Hypertensive heart disease with heart failure; Translations: [HTN HEART DISEASE W/HEART FAIL] Onset: 09-29-2022 Chronic Inflammatory conditions of male genital organs (6 sources) Prostatitis; Translations: [Inflammatory disease of prostate, unspecified] Onset: 07-13-2023 Episodic Joint disorders and dislocations; trauma-related (20 sources) Tear of medial meniscus of knee; Translations: [Other tear of medial meniscus, current injury, left knee, initial encounter] Episodic Mood disorders (20 sources) Depressive disorder; Translations: [Chronic depression] 03-04-2021 Chronic Mycoses (2 sources) Pain in toe; Translations: [Tinea unguium] 08-05-2024 Episodic Open wounds of extremities (18 sources) Laceration of finger; Translations: [Laceration without foreign body of unspecified finger without damage to nail, initial encounter] 2023 Episodic Open wounds of head; neck; and trunk (18 sources) Laceration - injury; Translations: [Laceration] 2023 Episodic Osteoarthritis (20 sources) Osteoarthritis of right knee joint; Translations: [Unilateral primary osteoarthritis, right knee] Onset: 02-02-2022 Resolved: 05-09-2022 Chronic Other aftercare (1 source) bed bug exterminator (current) use of aspirin; Translations: [GREENKEEPER CURRENT USE OF ASPIRIN] Onset: 01-19-2023 Episodic Other aftercare (1 source) Other [facility] (current) drug therapy; Translations: [OTH JAIL CURRENT DRUG THERAPY] Onset: 01-19-2023 Episodic Other aftercare (2 sources) Encounter for removal of sutures Episodic Other circulatory disease (14 sources) Vascular insufficiency 10-05-2022 Episodic Other congenital anomalies (20 sources) Congenital hip dysplasia; Translations: [Other specified congenital deformities of hip] Chronic Other congenital anomalies (4 sources) Other specified congenital deformities of hip Onset: 02-02-2022 Resolved: 05-09-2022 Chronic Other connective tissue disease (20 sources) History of total knee arthroplasty; Translations: [Presence of artificial knee joint, bilateral] 02-06-2021 Chronic Other connective tissue disease (4 sources) Presence of artificial knee joint, bilateral Onset: 02-02-2022 Resolved: 05-09-2022 Chronic Other connective tissue disease (12 sources) Presence of unspecified artificial knee joint; Translations: [Knee joint replacement] 03-13-2024 Chronic Other connective tissue disease (1 source) Arthrodesis status Episodic Other connective tissue disease (16 sources) Hematoma 09-21-2022 Episodic Other connective tissue disease (14 sources) Impingement syndrome of shoulder region 10-05-2022 Episodic Other connective tissue disease (13 sources) Lateral epicondylitis of left humerus; Translations: [Lateral epicondylitis, left elbow] 12-02-2023 Episodic Other connective tissue disease (12 sources) Hand pain; Translations: [Pain in right hand] 12-06-2023 Episodic Other connective tissue disease (12 sources) Triggering of digit; Translations: [Trigger finger, right middle finger] 12-06-2023 Episodic Other connective tissue disease (4 sources) Pain in right hand; Translations: [Pain in limb] 12-06-2023 Episodic Other connective tissue disease (10 sources) Trigger finger, right middle finger; Translations: [Trigger finger (acquired)] 12-06-2023 Episodic Other connective tissue disease (5 sources) Tendinitis of left quadriceps tendon; Translations: [Other specified enthesopathies of left lower limb, excluding foot] 04-29-2024 Episodic Other connective tissue disease (5 sources) Tendinitis of right quadriceps tendon; Translations: [Other specified enthesopathies of right lower limb, excluding foot] 04-29-2024 Episodic Other connective tissue disease (7 sources) Other specified enthesopathies of left lower limb, excluding foot; Translations: [Other synovitis and tenosynovitis] 04-29-2024 Episodic Other connective tissue disease (2 sources) Plantar fasciitis; Translations: [Plantar fascial fibromatosis] 08-05-2024 Episodic Other diseases of bladder and urethra (4 sources) Disorder of bladder; Translations: [Bladder disorder, unspecified] Onset: 06-22-2022 Chronic Other diseases of bladder and urethra (8 sources) Lesion of bladder 06-22-2022 Chronic Other diseases of kidney and ureters (8 sources) Hematoma of kidney 10-21-2022 Chronic Other diseases of kidney and ureters (1 source) Other specified disorders of kidney and ureter; Translations: [OTHER SPEC DISORDERS KIDNEY URETER] Onset: 01-19-2023 Chronic Other diseases of kidney and ureters (2 sources) Acquired renal cyst without neoplastic change; Translations: [Cyst of kidney, acquired] Onset: 06-22-2022 Episodic Other diseases of kidney and ureters (20 sources) Cyst of kidney 06-22-2022 Episodic Other diseases of kidney and ureters (1 source) Urinary tract obstruction; Translations: [Other obstructive and reflux uropathy] Onset: 09-26-2023 Episodic Other injuries and conditions due to external causes (20 sources) Contusion; Translations: [Other injury of unspecified body region, initial encounter] 01-12-2018 Episodic Other injuries and conditions due to external causes (1 source) Traumatic AND/OR non-traumatic injury; Translations: [Other injury of unspecified body region, initial encounter] Onset: 09-21-2022 Episodic Other male genital disorders (20 sources) Male erectile dysfunction, unspecified; Translations: [Erectile dysfunction] Onset: 06-22-2022 Chronic Other male genital disorders (2 sources) H/O: male genital disorder; Translations: [Personal history of other diseases of male genital organs] Onset: 08-17-2023 Episodic Other male genital disorders (4 sources) History of prostatitis 08-17-2023 Episodic Other nervous system disorders (20 sources) Chronic pain; Translations: [Other chronic pain] 01-29-2024 Chronic Other nervous system disorders (15 sources) Other chronic pain; Translations: [Other chronic pain] Onset: 06-27-2022 Resolved: 06-27-2022 Chronic Other nervous system disorders (20 sources) Bilateral carpal tunnel syndrome; Translations: [Carpal tunnel syndrome, bilateral upper limbs] Chronic Other nervous system disorders (20 sources) Carpal tunnel syndrome of right wrist; Translations: [Carpal tunnel syndrome, right upper limb] 12-02-2023 Chronic Other nervous system disorders (20 sources) Carpal tunnel syndrome of left wrist; Translations: [Carpal tunnel syndrome, left upper limb] 04-28-2023 Chronic Other nervous system disorders (7 sources) Carpal tunnel syndrome, left upper limb; Translations: [Carpal tunnel syndrome] Chronic Other nervous system disorders (3 sources) Carpal tunnel syndrome, right upper limb Chronic Other nervous system disorders (20 sources) Carpal tunnel syndrome; Translations: [Carpal tunnel syndrome, left upper limb] 04-28-2023 Chronic Other nervous system disorders (10 sources) Lesion of ulnar nerve, left upper limb; Translations: [Cubital tunnel syndrome, left] Chronic Other nervous system disorders (17 sources) Ulnar nerve entrapment at elbow; Translations: [Lesion of ulnar nerve, unspecified upper limb] 08-29-2023 Chronic Other nervous system disorders (6 sources) Lesion of ulnar nerve, unspecified upper limb; Translations: [Lesion of ulnar nerve] Onset: 08-29-2023 12-04-2023 Chronic Other nervous system disorders (10 sources) Neuropathy; Translations: [Polyneuropathy, unspecified] 02-01-2024 Chronic Other nervous system disorders (16 sources) Polyneuropathy, unspecified; Translations: [Mononeuritis of unspecified site] 02-01-2024 Chronic Other nervous system disorders (20 sources) Postoperative pain ; Translations: [Other acute postprocedural pain] 02-06-2021 Episodic Other nervous system disorders (14 sources) Tremor 10-05-2022 Episodic Other nervous system disorders (14 sources) Pain in limb; Translations: [Other acute postprocedural pain] 10-30-2023 Episodic Other non-traumatic joint disorders (20 sources) Pain in elbow; Translations: [Pain in left elbow] 01-30-2023 Episodic Other nutritional; endocrine; and metabolic disorders (20 sources) Body mass index 40+ - severely obese; Translations: [Body mass index (BMI) 40.0-44.9, adult] 02-06-2021 Chronic Other nutritional; endocrine; and metabolic disorders (20 sources) Severe obesity; Translations: [Morbid (severe) obesity due to excess calories] Chronic Other nutritional; endocrine; and metabolic disorders (20 sources) Body mass index 30+ - obesity; Translations: [Obesity, unspecified] Chronic Other nutritional; endocrine; and metabolic disorders (4 sources) Obesity, unspecified Onset: 02-02-2022 Resolved: 05-09-2022 Chronic Other nutritional; endocrine; and metabolic disorders (3 sources) Body mass index (BMI) 40.0-44.9, adult Chronic Other screening for suspected conditions (not mental disorders or infectious disease) (20 sources) Protein level - finding; Translations: [Other specified abnormal findings of blood chemistry] 02-06-2021 Episodic Other skin disorders (2 sources) Localized swelling, mass and lump, right upper limb Episodic Other skin disorders (14 sources) Lump on finger; Translations: [Localized swelling, mass and lump, unspecified upper limb] 10-30-2023 Episodic Residual codes; unclassified (20 sources) Patient encounter status; Translations: [Encounter for prophylactic measures, unspecified] 02-06-2021 Episodic Residual codes; unclassified (14 sources) Insomnia 10-05-2022 Episodic Residual codes; unclassified (14 sources) Poor short-term memory 10-05-2022 Episodic Residual codes; unclassified (20 sources) Other specified postprocedural states; Translations: [Other postprocedural status] Episodic Residual codes; unclassified (13 sources) Postprocedural state finding; Translations: [Other specified postprocedural states] 12-02-2023 Episodic Residual codes; unclassified (13 sources) History of operative procedure on elbow; Translations: [Other specified postprocedural states] 12-02-2023 Episodic Screening and history of mental health and substance abuse codes (14 sources) Tobacco use and exposure - finding 10-05-2022 Chronic Skin and subcutaneous tissue infections (4 sources) Paronychia of toe of left foot; Translations: [Cellulitis of left toe] 08-05-2024 Episodic Spondylosis; intervertebral disc disorders; other back problems (20 sources) Lumbar arthritis; Translations: [Spondylosis without myelopathy or radiculopathy, lumbar region] Onset: 05-09-2022 Resolved: 06-27-2022 Chronic Superficial injury; contusion (20 sources) Contusion of knee; Translations: [Contusion of left knee, initial encounter] Episodic Unclassified (1 source) Laceration without foreign body of unspecified finger without damage to nail, initial encounter; Translations: [Laceration without foreign body of unspecified finger without damage to nail, initial encounter] Onset: 2023 Urinary tract infections (17 sources) Urinary tract infectious disease; Translations: [Urinary tract infection, site not specified] Onset: 10-21-2022 Episodic Past or Other Problems Problem Classification Problem Date Documented Date Episodic/Chronic Diabetes mellitus without complication (1 source) Other abnormal glucose; Translations: [OTHER ABNORMAL GLUCOSE] Onset: 09-24-2022 Episodic Other circulatory disease (1 source) Hypotension, unspecified; Translations: [HYPOTENSION UNSPECIFIED] Onset: 09-24-2022 Episodic Other connective tissue disease (7 sources) Lateral epicondylitis, left elbow; Translations: [Lateral epicondylitis] Onset: 12-04-2023 Episodic Other connective tissue disease (1 source) Pain in unspecified limb; Translations: [Pain in unspecified limb] Onset: 10-30-2023 Episodic Other injuries and conditions due to external causes (4 sources) Other injury of unspecified body region, initial encounter; Translations: [OTHER INJURY UNS BODY REGION INIT] Onset: 09-28-2022 Episodic Other nervous system disorders (1 source) Other acute postprocedural pain; Translations: [Other acute postprocedural pain] Onset: 10-30-2023 Episodic Other non-traumatic joint disorders (4 sources) Pain in right hip Onset: 02-02-2022 Resolved: 05-09-2022 Episodic Other non-traumatic joint disorders (3 sources) Pain in left hip Onset: 02-16-2022 Resolved: 05-09-2022 Episodic Other skin disorders (11 sources) Localized swelling, mass and lump, unspecified upper limb; Translations: [Localized superficial swelling, mass, or lump] Onset: 10-30-2023 12-06-2023 Episodic Other upper respiratory infections (1 source) Acute sinusitis, unspecified; Translations: [ACUTE SINUSITIS UNSPECIFIED] Onset: 09-24-2022 Episodic Residual codes; unclassified (1 source) Insomnia, unspecified; Translations: [INSOMNIA UNSPECIFIED] Onset: 09-24-2022 Episodic Spondylosis; intervertebral disc disorders; other back problems (20 sources) Radiculopathy, lumbar region; Translations: [Spinal stenosis of lumbar region] Onset: 05-09-2022 Resolved: 05-09-2022 Episodic Unclassified (4 sources) Other low back pain M54.59 Onset: 06-27-2022 Resolved: 06-27-2022 Results Test Name Value Interpretation Reference Range Facility Reminderson 05-16-2024 Reminders Reminders From: Namita Alexander To: [facility] - Recalls Lue; Sent: 11/03/2023 10:50:57 EST Show up: 04/03/2024 11:50:00 EDT Subject: CHANTEL/KUB Due Date/Time: 05/03/2024 11:50:00 EDT Pt is to get KUB and CHANTEL done prior to appt. Called pt and advised of below message. Orders fax[place] [facility] [place] CHANTEL/KUB. Called and scheduled pt for 05/07/24 @ 10:00 AM. Pt notified. Pt seen KML on 05/09/24 to review imaging Normal [facility] Ambulatory Visit Summaryon 0 05-09-2024 Ambulatory Visit Summary Ambulatory Visit Summary LIMA LOYD :1965 Visit Date:05/09/2024 Ambulatory Visit Instructions Your Diagnosis Kidney stones BPH with urinary obstruction ED (erectile dysfunction) Tests Performed US Renal -- Results Pending -- XR Abdomen 1 View -- Results Pending -- Please visit your patient portal for your results or contact your primary care physician. Your Care Team Attending Physician - Patito Sweet MD Primary Care Physician - Jeff Terrell MD This Is Your Medications List potassium citrate (potassium CITRATE 10 mEq ER Tab) tadalafil (Cialis 20 mg Tab) Contact prescribing physician if questions or concerns alprazolam (Xanax 0.25 mg Tab) amitriptyline (amitriptyline 50 mg Tab) citalopram (citalopram 40 mg Tab) fluconazole (fluconazole 100 mg Tab) gabapentin (gabapentin 600 mg Tab) irbesartan (irbesartan 300 mg Tab) temazepam (temazepam 30 mg Cap) tramadol (traMADOL 50 mg Tab) Procedures Performed Cystoscopy (09/26/2023), Cystoscopic laser lithotripsy of ureteric calculus (11/29/2022), ESWL of kidney (08/23/2022), Cystoscopy (07/12/2022), Epidural injection of cervical spine using fluoroscopic guidance (08/17/2018), Epidural injection of cervical spine using fluoroscopic guidance (05/26/2017), Epidural injection of cervical spine using fluoroscopic guidance (09/16/2016), Back (2000), Total knee replacement, Total knee replacement. Discharge Vitals Temperature (Temporal Artery) 36 ?C Heart Rate (Peripheral) 78 Respiratory Rate 19 Blood Pressure 138/80 Height 188 cm Height 74 in Weight 144.0 kg Weight 316.8 lb BMI 40.74 What to do next Scheduled Follow-Up Appointments Monday 11:00 AM EST With: Patito Sweet MD Where: [facility] [address] [place] [address]- You Need to Schedule the Following Appointments Follow Up with Kee NAVARRO, RENATA Ghotra, URO When: Where: Medications What How Much When Instructions New tadalafil (Cialis 20 mg Tab) 1 Tablets By Mouth As Directed Refills: 3 Take one tab by mouth one to two hours prior to sexual activity. Do NOT exceed 20 mg (1 tab) in 24 hours. Pickup at [facility] [id number] Unchanged potassium citrate (potassium CITRATE 10 mEq ER Tab) 1 Tablets By Mouth 2 times a day Unchanged alprazolam (Xanax 0.25 mg Tab) 1 Tablets By Mouth As needed for for anxiety Contact prescribing physician if questions or concerns Unchanged amitriptyline (amitriptyline 50 mg Tab) By Mouth Once a day (at bedtime) Contact prescribing physician if questions or concerns Unchanged citalopram (citalopram 40 mg Tab) 1 Tablets By Mouth Every day Contact prescribing physician if questions or concerns Unchanged fluconazole (fluconazole 100 mg Tab) Contact prescribing physician if questions or concerns Unchanged gabapentin (gabapentin 600 mg Tab) 1 Tablets By Mouth 2 times a day Contact prescribing physician if questions or concerns Unchanged irbesartan (irbesartan 300 mg Tab) 1 Tablets By Mouth Every day Contact prescribing physician if questions or concerns Unchanged temazepam (temazepam 30 mg Cap) 1 Capsules By Mouth Once a day (at bedtime) as needed for for sleep Contact prescribing physician if questions or concerns Unchanged tramadol (traMADOL 50 mg Tab) Contact prescribing physician if questions or concerns Pharmacy Information [facility] [id number]: [address] [place], [place] [id number] [phone] Allergies Augmentin (Hives) Bee Stings morphine (Unknown) Problems Ongoing - Any problem that you are currently receiving treatment for. Anxiety Arthritis BPH with urinary obstruction Cervical radiculopathy Depression ED (erectile dysfunction) Gross hematuria History of prostatitis HTN (hypertension) Insomnia Kidney stones Lumbar radiculopathy Poor short term memory Prostatitis Renal cyst Shoulder impingement syndrome Thoracic spondylosis Tobacco use Tremor UTI (urinary tract infection) Venous insufficiency Historical - Any problem that you are no longer receiving treatment for. Hematoma Patient Survey You may receive a survey via text or e-mail asking about your office visit. Please share your experience with us by completing your survey. We appreciate your feedback and thank you for choosing us for your care. Education Materials Dietary Guidelines to Help Prevent Kidney Stones Kidney stones are deposits of minerals and salts that form inside your kidneys. Your risk of developing kidney stones may be greater depending on your diet, your lifestyle, the medicines you take, and whether you have certain medical conditions. Most people can lower their risks of developing kidney stones by following these dietary guidelines. Your dietitian may give you more specific instructions depending on your overall health and the type of kidney stones you tend to de (more content not included)... Normal [facility] Urology Office/Clinic Noteon 05-09-2024 Urology Office/Clinic Note Urology Office/Clinic Note Chief Complaint 6 month follow up w/ CHANTEL and KUB HPI Staff Lima is a 58 y.o. male here for 6 month w/ KUB done 05/07/24/CHANTEL done 05/07/24. BUN 10, Creatinine 1.12 done 05/07/24. Previous Dx: BPH w/ urinary obstruction, ED, gross hematuria, prostatitis, kidney stone, renal cyst, UTI. S/P cystoscopy done on 09/26/23, laser lithotripsy done on 11/29/22, ESWL done on 08/23/22. Dysuria: denies Incomplete bladder emptying: denies Hematuria: denies visible blood Frequency: denies Urgency: denies Nocturia: denies Stream: denies hesitancy Leaking: denies Post void dripping: denies Wearing pads/ Depends: denies Urge incontinence: denies Stress incontinence: denies Incontinence without Sensory Awareness: denies Abdominal pain: denies Flank pain: denies Sexual complaints: denies History of Present Illness Tests reviewed: reviewed UA, CHANTEL, KUB, BMP I have reviewed the previous health record information and history for this patient from Dr. Sweet. I have reviewed and verified the staff HPI to be accurate for this encounter. Review of Systems PHQ Score Initial Depression Screen Score: 0 SCORE ROS - Provider Constitutional: denies weight loss, denies hot flashes. Eyes: denies eye problems. Gastrointestinal: denies nausea, denies vomiting. Cardiovascular: denies chest pain or angina. Integumentary: no dryness Musculoskeletal: denies musculoskeletal symptoms. ENMT: denies otolaryngeal symptoms. Respiratory: no shortness of breath. Heme/Lymph: denies easy bleeding tendency, denies easy bruising tendency. Psychiatric: no confusion, no anxiety. Genitourinary: See HPI. Physical Exam Vitals & Measurements T: 36 ?C(Temporal Artery) HR: 78(Peripheral) RR: 19 BP: 138/80 HT: 74 in HT: 188 cm WT: 144.0 kg WT: 316.8 lb BMI: 40.74 General Appearance: alert, no distress, well nourished, well developed male. Assessment/Plan 58-year-old male here for follow up for kidney stones. Hx of BPH with worsening LUTS, kidney stones and ED. 1. Kidney stones (N20.0: Calculus of kidney) Lt ESWL 08/23/22 for 13 mm LLP stone. Known multiple stones throughout the kidney. CT AP wo con 09/28/22 - BL stones, largest L kidney 10mm. Nonobstructing 7 x 7 x 5mm stones at the UPJ S/P Cysto/Lt Stent Placement on 09/30/22. S/p Cysto, L RPG, staged L ureteroscopy, Laser Litho, stone extraction, stent exchange (> 2 cm total stone burden) 11/29/22. Stone analysis 100% Ca Ox monohydrate. KUB 12/14/22 - Left stones up to 1.3 cm, left ureteral stent. Renal US multiple foci up to 7 mm, nonobstructing nephroliths R side. L Hematoma mid pole 6.4 x 4.3 x 3.9 cm Stone analysis 01/11/23 -70% Ca Ox mono and Ca Ox di 30%. Cysto, L stent removal 01/16/23. CHANTEL 03/03/23 - Several nonobstructing R stones, largest 6 mm. Several nonobstructing L stones, largest 8 mm. Personal review: located in calyceal diverticulum. KUB 03/03/23 - Few small stones RUP/RLP and LUP (known calyceal diverticulum) Serum Uric Acid 03/31/23 - 7.9, mildly elevated (normal in urine) LithoLink 05/22/23 - Lower Volume 1.8 Liters, Mildly low citrate 414, PH 5.4, higher normal Ca. -Started on potassium citrate twice daily. Tolerated this well. potassium 4.3 on external labs 08/15/2023 CHANTEL 07/07/23 - bilateral nonobstructing nephrolithiasis. Pt passed a kidney stone the morning of scope on 07/11/23. BUN 15, Crea 1.5 - external labs 08/15/2023 -Likely due to recent Bactrim and NSAID use for prostatitis. Recommend increase hydration TODAY: CHANTEL 05/07/24 [facility] - Multiple renal stones bilaterally. No hydro. ( on review, 2-3 stones BL) KUB 05/07/24 [facility] - Bilateral renal stones, largest 5 mm R kidney. Dominant calculi seen w/in L kidney are not seen. Stone burden appears to have improved from prior KUB. (Difficult to view on KUB) 05/07/24 - BUN 10, Cre 1.12, eGFR >60. K 4.2. Ca 8.5 L. Taking Potassium Citrate 10 mEq bid. Cont wo changes. Passed some tiny stones a couple mos ago, side of a pen tip. Reviewed imaging and BMP with pt. Crea improved. K wnl however Ca L. Counseled pt on diet modifications to improve Ca. Again addressed met workup showed low volume, stressed high fluid intake. Drink a 1-2 gallons of water daily plus lemonade. Pt prefers to cont monitoring q6mos instead of yearly. Follow up 6 mos with KUB and CHANTEL or sooner if needed. Pt understands and agrees with plan. -Cont high fluid intake. -Increase dietary Ca. -Cont K citrate, refill sent today 2. BPH with urinary obstruction (N40.1: Benign prostatic hyperplasia with lower urinary tract symptoms) PSA: 12/2021 - 0.75 03/31/23 - 0.65 PVR (cc): 05/31/23 - 68 11/03/23 - 120 05/09/24 - 64 Failed Flomax due to SE of dry mouth [1] and Cialis 5 mg due to SE of indigestion [2]. S/p Urolift 7 seated 09/26/23. UA today negative for blood and infection. IPSS 2 (6). Not currently taking any BPH meds. Emptying has improved. (more content not included)... Normal [facility] Comment on above: Result Comment: Elec tronically Signed By: Patito Sweet MD\.br\Date and Time Signed: 05/09/24 11:06 EDT\.br\Electronically Co-Signed By: Katherine Harrison\.br\Date and Time Co-Signed: 05/09/24 10:37 EDT Basic Metabolic Panelon 04-16 GFR/1.73 sq M.predicted MDRD (S/P/Bld) [Vol rate/Area] mL/min/{1.73_m2} Normal [facility] Comment on above: Performed By: #### B MP #### [place] [address] [place] Calcium [Mass/volume] in Ser um or PlasmaOrdered By: Patito Sweet on 05-07-2024 Calcium [Mass/Vol] 8.5 mg/dL Low 8.6-10.3 [facility] Comment on above: Result Comment: PERF ORMED BY: [place] [address] PATHOLOGIST DIRECTOR AMBULATORY BENEDICTO WOOD M.D. Performed By: #### B MP #### [place] [address] [place] Carbon dioxide, total [Moles /volume] in Serum or PlasmaOrdered By: Patito Sweet on 05-07-2024 CO2 [Moles/Vol] 26.8 mmol/L Normal 21.0-31.0 [facility] Comment on above: Performed By: #### B MP #### [place] [address] [place] Chloride [Moles/volume] in S lilli or PlasmaOrdered By: Patito Sweet on 05-07-2024 Chloride [Moles/Vol] 105 mmol/L Normal 98-107 [facility] Comment on above: Performed By: #### B MP #### [place] [address] [place] Creatinine [Mass/volume] in Serum or PlasmaOrdered By: Patito Sweet on 05-07-2024 Creatinine [Mass/Vol] 1.12 mg/dL Normal 0.70-1.30 [facility] Comment on above: Performed By: #### B MP #### [address] Glucose [Mass/volume] in Ser um or PlasmaOrdered By: Patito Sweet on 05-07-2024 Glucose [Mass/Vol] 191 mg/dL High 70-100 [facility] Comment on above: ADA recommended refe rence rangeRandom Glucose Reference Range is dependent on time and content of last meal. Glucose of more than 200 mg/dL in a nonstressed, ambulatory subject supports the diagnosis of Diabetes Mellitus. Result Comment: [place] om Glucose Reference Range is dependent on time and content of last meal. Glucose of more than 200 mg/dL in a nonstressed, ambulatory subject supports the diagnosis of Diabetes Mellitus. ADA recommended reference range Performed By: #### B MP #### [address] No Panel InformationOrdered By: Patito Sweet on 05-07-2024 Estimated GFR (CKD-EPI) > 60.0 mL/Min [facility] Creatinine Clearance (Chem N/A [facility] Potassium [Moles/volume] in Serum or PlasmaOrdered By: Patito Sweet on 05-07-2024 Potassium [Moles/Vol] 4.2 mmol/L Normal 3.5-5.1 [facility] Comment on above: Performed By: #### B MP #### [address] Serum or plasma anion gap de terminationOrdered By: Patito Sweet on 05-07-2024 Anion gap [Moles/Vol] 9.4 mmol/L Normal 6.0-15.0 [facility] Comment on above: Performed By: #### B MP #### [address] Sodium [Moles/volume] in Ser um or PlasmaOrdered By: Patito Sweet on 05-07-2024 Sodium [Moles/Vol] 137 mmol/L Normal 136-145 [facility] Comment on above: Performed By: #### B MP #### [facility] [address] US renal BIon 05-07-2024 US renal BI [facility] [place] [address] [place] [address] Ultrasound Report Signed Patient: Lima Loyd MR#: [id number] : 1965 Acct:[id number] Age/Sex: 58 / M ADM Date: 05/07/24 Loc: Room: Type: [facility] Attending Dr: Patito Sweet MD Ordering Provider: Patito Sweet MD Date of Service: 05/07/24 US/US renal BI: N20.0 Copies to: Patito Sweet MD BILATERAL RENAL AND BLADDER ULTRASOUND CLINICAL HISTORY: History of kidney stones. COMPARISON: KUB performed today. FINDINGS: Estimation of renal size is approximately 11.3 cm on the right and 11.2 cm on the left. No hydronephrosis. Multiple echogenic foci are seen within both kidneys likely relating to stones confirmed on the KUB study. No mass. The urinary bladder is partially distended with a volume of 89.98 ml. No shadowing stone or focal lesion. US/US renal BI IMPRESSION: BILATERAL NEPHROLITHIASIS. NO HYDRONEPHROSIS TO SUGGEST OBSTRUCTION. Impression dictated by: Abad Perez Jr., D.OAlejo05/07/2024 12:10 PM Dictation Location: [place] [address] Tech: Ghislaine Roney Transcribed By: ALDEN 05/07/24 1210 Dictated By: Abad Perez Jr, DO 05/07/24 1209 Signed By: 05/07/24 1210 Normal [facility] Urea nitrogen [Mass/volume] in Serum or PlasmaOrdered By: Patito Sweet on 05-07-2024 Urea nitrogen [Mass/Vol] 10 mg/dL Normal 7- [facility] Comment on above: Performed By: #### B MP #### [facility] [address] XR abdomen 1Von 05-07-2024 XR abdomen 1V [facility] [place] [address] [place] [id number] XRay Report Signed Patient: Lima Loyd MR#: [id number] : 1965 Acct:[id number] Age/Sex: 58 / M ADM Date: 05/07/24 Loc: Room: Type: REG CLI Attending Dr: Patito Sweet MD Copies to: Patito Sweet MD Ordering Provider: Patito Sewet MD Date of Service: 05/07/24 XR/XR abdomen 1V: ALSO FOR ULTRASOUND @ 10 KUB: CLINICAL INFORMATION: Renal stone follow-up COMPARISON: KUB 09/30/2022 FINDINGS: Bilateral nephrolithiasis, largest stone measuring 5 mm within the right kidney. The dominant calculi seen within the left kidney are not seen on today's study. No definite ureteral or urinary bladder calculus. No bowel obstruction or free air. Osseous structures demonstrate degenerative change with posterior hardware changes involving L4-L5. Presumed radiation seeds are seen involving the prostate gland. XR/XR abdomen 1V IMPRESSION: BILATERAL NEPHROLITHIASIS, LARGEST STONE MEASURING 5 MM WITHIN THE RIGHT KIDNEY. DEGREE OF STONE BURDEN APPEARS TO HAVE IMPROVED SINCE THE PRIOR KUB. Impression dictated by: Abad Perez Jr., DAlejoOAlejo05/07/2024 12:11 PM Dictation Location: [place] [address] Transcribed By: [facility] 05/07/24 1211 Dictated By: Abad Perez Jr, DO 05/07/24 1210 Signed By: 05/07/24 1211 Normal [facility] XR knee LT 3V - NOT FOR ER U Stew 03-13-2024 XR knee LT 3V - NOT FOR ER USE [facility] [address] [place] [address] XRay Report Signed Patient: Lima Loyd MR#: [id number] : 1965 Acct:[id number] Age/Sex: 58 / M ADM Date: 03/13/24 Loc: [facility] Room: Type: REG CLI Attending Dr: Gaurav Scott DO Copies to: Gaurav Scott DO Ordering Provider: Gaurav Scott DO Date of Service: 03/13/24 XR/XR knee LT 3V - NOT FOR ER USE: Z96.659 - Presence of unspecified artificial knee joint LEFT KNEE - 3 views CLINICAL HISTORY: Increased left knee pain for months. COMPARISON: Knee series 02/02/2022 FINDINGS: Left TKA without radiographic complication. No acute bony process. XR/XR knee LT 3V - NOT FOR ER USE IMPRESSION: NO HARDWARE COMPLICATION. Impression dictated by: Abad Perez Jr., D.OAlejo03/13/2024 4:34 PM Dictation Location: [place] [address] Transcribed By: [facility] 03/13/24 1634 Dictated By: Abad Perez Jr, DO 03/13/24 1633 Signed By: 03/13/24 1634 Normal [facility] [place] 12-18-2023 Consent [id number] Normal [facility] Registrationon 12-18-2023 Registration [id number] Normal [facility] Lab Reportson 11-24-2023 Lab Reports [id number]#1.00TIFF Normal [facility] Basic Metabolic Panelon GFR/1.73 sq M.predicted MDRD (S/P/Bld) [Vol rate/Area] mL/min/{1.73_m2} Normal [facility] Comment on above: Performed By: #### B MP #### [address] Calcium [Mass/volume] in Ser um or PlasmaOrdered By: Patito Sweet on 11-23-2023 Calcium [Mass/Vol] 8.8 mg/dL Normal 8.6-10.3 [facility] Comment on above: Result Comment: PERF ORMED BY: [place] [address] PATHOLOGIST DIRECTOR AMBULATORY BENEDICTO WOOD M.D. Performed By: #### B MP #### [facility] [address] [place] [address] [place] Carbon dioxide, total [Moles /volume] in Serum or PlasmaOrdered By: Patito Sweet on 11-23-2023 CO2 [Moles/Vol] 28.9 mmol/L Normal 21.0-31.0 [facility] Comment on above: Performed By: #### B MP #### [facility] [address] [place] [address] [place] Chloride [Moles/volume] in S lilli or PlasmaOrdered By: Patito Sweet on 11-23-2023 Chloride [Moles/Vol] 105 mmol/L Normal 98-107 [facility] Comment on above: Performed By: #### B MP #### [address] Creatinine [Mass/volume] in Serum or PlasmaOrdered By: Patito Sweet on 11-23-2023 Creatinine [Mass/Vol] 1.15 mg/dL Normal 0.70-1.30 [facility] Comment on above: Performed By: #### B MP #### [place] [address] [place] Glucose [Mass/volume] in Ser um or PlasmaOrdered By: Patito Sweet on 11-23-2023 Glucose [Mass/Vol] 119 mg/dL High 70-100 [facility] Comment on above: ADA recommended refe rence rangeRandom Glucose Reference Range is dependent on time and content of last meal. Glucose of more than 200 mg/dL in a nonstressed, ambulatory subject supports the diagnosis of Diabetes Mellitus. Result Comment: [place] om Glucose Reference Range is dependent on time and content of last meal. Glucose of more than 200 mg/dL in a nonstressed, ambulatory subject supports the diagnosis of Diabetes Mellitus. ADA recommended reference range Performed By: #### B MP #### [address] No Panel InformationOrdered By: Patito Sweet on 11-23-2023 Estimated GFR (CKD-EPI) > 60.0 mL/Min [facility] Creatinine Clearance (Chem N/A [facility] Potassium [Moles/volume] in Serum or PlasmaOrdered By: Patito Sweet on 11-23-2023 Potassium [Moles/Vol] 4.3 mmol/L Normal 3.5-5.1 [facility] Comment on above: Performed By: #### B MP #### [facility] [address] Serum or plasma anion gap de terminationOrdered By: Patito Sweet on 11-23-2023 Anion gap [Moles/Vol] 9.4 mmol/L Normal 6.0-15.0 [facility] Comment on above: Performed By: #### B MP #### [address] Sodium [Moles/volume] in Ser um or PlasmaOrdered By: Patito Sweet on 11-23-2023 Sodium [Moles/Vol] 139 mmol/L Normal 136-145 [facility] Comment on above: Performed By: #### B MP #### [address] Urea nitrogen [Mass/volume] in Serum or PlasmaOrdered By: Patito Sweet on 11-23-2023 Urea nitrogen [Mass/Vol] 11 mg/dL Normal 7-25 [facility] Comment on above: Performed By: #### B MP #### [address] [place] 11-06-2023 Screens [id number] Normal [facility] Screens [id number]#1.00TIFF Normal [facility] Ambulatory Visit Summaryon 0 11-03-2023 Ambulatory Visit Summary LIMA LOYD :1965 Visit Date:11/03/2023 Ambulatory Visit Instructions Your Diagnosis Kidney stone BPH with urinary obstruction ED (erectile dysfunction) History of prostatitis Tests Performed Urnls Dip Stick Auto w/o Microscopy POC 27867 US Renal -- Results Pending -- XR Abdomen 1 View -- Results Pending -- Please visit your patient portal for your results or contact your primary care physician. Your Care Team Attending Physician - Patito Sweet MD Primary Care Physician - Jeff Terrell MD This Is Your Medications List Contact prescribing physician if questions or concerns alprazolam (Xanax 0.25 mg Tab) amitriptyline (amitriptyline 50 mg Tab) citalopram (citalopram 40 mg Tab) fluconazole (fluconazole 100 mg Tab) gabapentin (gabapentin 600 mg Tab) irbesartan (irbesartan 300 mg Tab) potassium citrate (potassium CITRATE 10 mEq ER Tab) temazepam (temazepam 30 mg Cap) tramadol (traMADOL 50 mg Tab) [Image Removed: STOP]Stop taking these medications oxybutynin (oxybutynin 5 mg Tab) tadalafil (Cialis 10 mg Tab) Procedures Performed Cystoscopy (09/26/2023), Cystoscopic laser lithotripsy of ureteric calculus (11/29/2022), ESWL of kidney (08/23/2022), Cystoscopy (07/12/2022), Epidural injection of cervical spine using fluoroscopic guidance (08/17/2018), Epidural injection of cervical spine using fluoroscopic guidance (05/26/2017), Epidural injection of cervical spine using fluoroscopic guidance (09/16/2016), Back (2000), Total knee replacement, Total knee replacement. Discharge Vitals Heart Rate (Peripheral) 80 Blood Pressure 128/82 Height 188 cm Height 74 in Weight 144.0 kg Weight 316.8 lb BMI 40.74 What to do next Scheduled Follow-Up Appointments 2023 10:00 AM EDT With: Patito Sweet MD Where: [facility] Patient Educationon 11-03-19 Patient Education Urology Benign Prostatic Hyperplasia Benign prostatic hyperplasia (BPH) is an enlarged prostate gland that is caused by the normal aging process. The prostate may get bigger as a man gets older. The condition is not caused by cancer. The prostate is a walnut-sized gland that is involved in the production of semen. It is located in front of the rectum and below the bladder. The bladder stores urine. The urethra carries stored urine out of the body. An enlarged prostate can press on the urethra. This can make it harder to pass urine. The buildup of urine in the bladder can cause infection. Back pressure and infection may progress to bladder damage and kidney (renal) failure. What are the causes? This condition is part of the normal aging process. However, not all men develop problems from this condition. If the prostate enlarges away from the urethra, urine flow will not be blocked. If it enlarges toward the urethra and compresses it, there will be problems passing urine. What increases the risk? This condition is more likely to develop in men older than 50 years. What are the signs or symptoms? Symptoms of this condition include: ? Getting up often during the night to urinate. ? Needing to urinate frequently during the day. ? Difficulty starting urine flow. ? Decrease in size and strength of your urine stream. ? Leaking (dribbling) after urinating. ? Inability to pass urine. This needs immediate treatment. ? Inability to completely empty your bladder. ? Pain when you pass urine. This is more common if there is also an infection. ? Urinary tract infection (UTI). How is this diagnosed? This condition is diagnosed based on your medical history, a physical exam, and your symptoms. Tests will also be done, such as: ? A post-void bladder scan. This measures any amount of urine that may remain in your bladder after you finish urinating. ? A digital rectal exam. In a rectal exam, your health care provider checks your prostate by putting a lubricated, gloved finger into your rectum to feel the back of your prostate gland. This exam detects the size of your gland and any abnormal lumps or growths. ? An exam of your urine (urinalysis). ? A prostate specific antigen (PSA) screening. This is a blood test used to screen for prostate cancer. ? An ultrasound. This test uses sound waves to electronically produce a picture of your prostate gland. Your health care provider may refer you to a specialist in kidney and prostate diseases (urologist). How is this treated? Once symptoms begin, your health care provider will monitor your condition (active surveillance or watchful waiting). Treatment for this condition will depend on the severity of your condition. Treatment may include: ? Observation and yearly exams. This may be the only treatment needed if your condition and symptoms are mild. ? Medicines to relieve your symptoms, including: ? Medicines to shrink the prostate. ? Medicines to relax the muscle of the prostate. ? Surgery in severe cases. Surgery may include: ? Prostatectomy. In this procedure, the prostate tissue is removed completely through an open incision or with a laparoscope or robotics. ? Transurethral resection of the prostate (TURP). In this procedure, a tool is inserted through the opening at the tip of the penis (urethra). It is used to cut away tissue of the inner core of the prostate. The pieces are removed through the same opening of the penis. This removes the blockage. ? Transurethral incision (TUIP). In this procedure, small cuts are made in the prostate. This lessens the prostate's pressure on the urethra. ? Transurethral microwave thermotherapy (TUMT). This procedure uses microwaves to create heat. The heat destroys and removes a small amount of prostate tissue. ? Transurethral needle ablation (TUNA). This procedure uses radio frequencies to destroy and remove a small amount of prostate tissue. ? Interstitial laser coagulation (ILC). This procedure uses a laser to destroy and remove a small amount of prostate tissue. ? Transurethral electrovaporization (TUVP). This procedure uses electrodes to destroy and remove a small amount of prostate tissue. ? Prostatic urethral lift. This procedure inserts an implant to push the lobes of the prostate away from the urethra. Follow these instructions at home: ? Take srcf-sxm-vrjlyup and prescription medicines only as told by your health care provider. ? Monitor your symptoms for any changes. Contact your health care provider with any changes. ? Avoid drinking large amounts of liquid before going to bed or out in public. ? Avoid or reduce how much caffeine or alcohol you drink. ? Give yourself time when you urinate. ? Keep all follow-up visits. This is important. Contact a health care provider if: ? You have unexplained back pain. ? Your symptoms do not get better with treatment. ? You develop side effects from the medicine (more content not included)... Normal [facility] Urology Office/Clinic Noteon 11-03-2023 Urology Office/Clinic Note Chief Complaint S/P to Cysto and PVR HPI Staff Lima is a 58 y.o. male here for 1 month follow up w/ PVR. Previous Dx: BPH w/ urinary obstruction, ED, gross hematuria, history of prostatitis, kidney stone, renal cyst, UTI. S/P UroLift done on 09/26/23.- first 3 weeks wore a pad for leaking stopped wearing pad October 16 2023 IPSS 6 ABDELRAHMAN 4 Has passed 2 stones the day of procedure, he did not catch them but he heard the stones hit the toilet PVR 120 Dysuria: _denies Incomplete bladder emptying: denies Hematuria: denies visible blood Frequency: every couple hours Urgency: denies Nocturia: once nightly Stream: denies hesitation, normal stream Leaking: denies Post void dripping: denies Wearing pads/ Depends: denies Urge incontinence: denies Stress incontinence: denies Incontinence without Sensory Awareness: denies Abdominal pain: denies Flank pain: denies Sexual complaints: denies History of Present Illness Tests reviewed: reviewed UA, PVR I have reviewed the previous health record information and history for this patient from . I have reviewed and verified the staff HPI to be accurate for this encounter. There have been no associated fever, chills, flank pain, or blood in the urine. Denies any urinary infections since last encounter. Review of Systems PHQ Score Initial Depression Screen Score: 0 SCORE ROS - Provider Constitutional: denies weight loss, denies hot flashes. Eyes: denies eye problems. Gastrointestinal: denies nausea, denies vomiting. Cardiovascular: denies chest pain or angina. Integumentary: no dryness Musculoskeletal: denies musculoskeletal symptoms. ENMT: denies otolaryngeal symptoms. Respiratory: no shortness of breath. Heme/Lymph: denies easy bleeding tendency, denies easy bruising tendency. Psychiatric: no confusion, no anxiety. Genitourinary: See HPI. Physical Exam Vitals & Measurements HR: 80(Peripheral) BP: 128/82 HT: 74 in HT: 188 cm WT: 144.0 kg WT: 316.8 lb BMI: 40.74 General Appearance: alert, no distress, well nourished, well developed male. Assessment/Plan 58-year-old male here for follow up from recent UroLift Hx of BPH with worsening LUTS, kidney stones and ED 1. Kidney stone (N20.0: Calculus of kidney) S/P Lt ESWL 08/23/22 for 13 mm LLP stone. Known multiple stones throughout the kidney. CT AP wo con 09/28/22 - BL stones, largest L kidney 10mm. Nonobstructing 7 x 7 x 5mm stones at the UPJ. S/P Cysto/Lt Stent Placement on 09/30/22. S/p Cysto, L retrograde pyelogram, staged L ureteroscopy, Laser Litho, stone extraction, stent exchange (> 2 cm total stone burden) 11/29/22. Stone analysis 100% Ca Ox monohydrate. KUB 12/14/22 - Left stones up to 1.3 cm, left ureteral stent. Renal US multiple foci up to 7 mm, nonobstructing nephroliths R side. L Hematoma mid pole 6.4 x 4.3 x 3.9 cm Stone analysis 01/11/23 -70% Ca Ox mono and Ca Ox di 30%. Cysto, L stent removal 01/16/23. CHANTEL 03/03/23 - Several nonobstructing R stones, largest 6 mm. Several nonobstructing L stones, largest 8 mm. Personal review: located in calyceal diverticulum. KUB 03/03/23 - Few small stones RUP/RLP and LUP (known calyceal diverticulum) Serum Uric Acid 03/31/23 - 7.9, mildly elevated (normal in urine) LithoLink 05/22/23 - Lower Volume 1.8 Liters, Mildly low citrate 414, PH 5.4, higher normal Ca. -Started on potassium citrate twice daily. Tolerated this well. potassium 4.3 on external labs 08/15/2023 CHANTEL 07/07/23 - bilateral nonobstructing nephrolithiasis. Pt passed a kidney stone the morning of scope on 07/11/23. BUN 15, Crea 1.5 - external labs 08/15/2023 -Likely due to recent Bactrim and NSAID use for prostatitis. Recommend increase hydration Pt is currently taking Potassium Citrate 10 mEq ER BID. Denies side effects Has passed 2 stones the day of procedure, he did not catch them but he heard the stones hit the toilet. [place] some lower abdominal pain, sat down to void, and had felt them pass. Advised pt that we will get labs done now that he has been taking the Potassium Citrate. Discussed getting imaging done to see if he has any other stones. Pt states that he has increased his water intake. Follow up in 6 mos w/KUB and CHANTEL. All questions/concerns were discussed. Pt to call the office if he encounters any issues prior. Pt acknowledges understanding. -Dietary modifications as above -increase fluid intake -Will order BMP. Pt is to get this done now to ensure K and creatinine -Will order KUB and CHANTEL to be done in 6 months. 2. BPH with urinary obstruction (N40.1: Benign prostatic hyperplasia with lower urinary tract symptoms) Cysto 07/12/22 - Moderate bilobar lateral hypertrophy, tall, minimal intravesical mass effect from prostate, no median lobe. Previously tried Tamsulosin, d/c due to SE of dry mouth. Cysto 07/11/23 - kbrmvpxi-kx-qhfnau bilobar hypertrophy, near kissing lateral lobes, 1+ trabeculations Calculated prostate volume: [address] 10/04 (more content not included)... Normal [facility] Comment on above: Result Comment: Elec tronically Signed By: Kee NAVARRO, Patito Good\.br\Date and Time Signed: 11/03/23 12:30 EST\.br\Electronically Co-Signed By: Namita Alexander\.br\Date and Time Co-Signed: 11/03/23 10:49 EST Damien 10-30-2023 L ------ Specimen: [id number] Received: 10/30/23 Status: RIK Carloz Num: [id number] Spec Type: Surgical Subm Dr: Melissa Castellano MD Tissues: A Ganglion Cyst (RT MIDDLE FINGER, GANGLION C) Procedures: HE, Gross/Micro L3 Age/ Patient Sex Location Account Attending Physician Lima Lyod 58/M [place] [id number] Melissa Castellano MD SPEC NUM: [id number] RECD: 10/30/23 STATUS: RIK PATEL NUM: [id number] JAY: 10/30/23-1033 [facility] DR: Melissa Castellano MD ENTERED: 10/30/23-1105 [facility] DR: LEANNE TYPE: Surgical DEPT: S ORDERED: HE, Gross/Micro L3 ORDERED: HE, Gross/Micro L3 Pathological Diagnosis Ganglion cyst of tendon sheath, excision:: - Ganglion cyst Clinical Information Soft tissue mass Gross Description Received in formalin labeled with the patient's name, date of and ganglion cyst of tendon sheath (middle right finger per requisition) is a 1.0 x 0.7 x 0.6 cm pickering-buckley, rubbery tissue that is inked and sectioned revealing a cystic structure containing clear, gelatinous material. Entirely submitted in one cassette labeled A1. Microscopic Description One H E slide reviewed. The microscopic examination confirms the diagnosis. CPT Codes 73747 Specimen: [id number] Received: 10/30/23 Status: LINNEADevika Patel Num: [id number] Spec Type: Surgical Subm Dr: Melissa Castellano MD Tissues: A Ganglion Cyst (RT MIDDLE FINGER, GANGLION C) Procedures: Héctor DUNLAP/Elsi L3 Patient: Lima Loyd [id number] (Continued) Signed (signature on file) Ai Redd MD 10/31/23 0909 Normal [facility] IntraOperative Documentson 1 12-13-2022 IntraOperative Documents [id number] Normal [facility] Main OR Intraoperative Recor don 10-11-2023 Main OR Intraoperative Record IntraOp Document Type FT Summary Primary Physician: Patito Sweet MD Finalized Date/Time: 10/11/23 14:28:30 Pt. Name: LIMA LOYD /Sex: 1965 Male Med Rec #: [id number] Physician: Patito Sweet MD Financial #: [id number] Pt. Type: A Room/Bed: [place] [address] Admit/Disch: 09/26/23 07:01:16 - 09/26/23 12:05:00 Institution: Case Times FT Entry 1 Patient Times In Room 09/26/23 09:45:00 Out Room 09/26/23 10:33:00 Procedure Times Start 09/26/23 10:09:00 Stop 09/26/23 10:26:00 Anesthesia Times Start 09/26/23 09:45:00 Stop 09/26/23 10:33:00 Last Modified By: Kyle RICHARD, Anais Castro 09/26/23 10:33:03 General Comments: 09/28/23 Chart opened to review and send charges [facility]oth CSFA Case Attendance FT Entry 1 Entry 2 Entry 3 Case Attendee Tish ARROYO, DISABILITY ATTORNEY, Queen Kee NAVARRO, Patito Wright RN, Anais Kumar Role Performed DISABILITY ATTORNEY Surgeon - Primary Historical Archeologist - Primary Time In 09/26/23 09:45:00 09/26/23 09:45:00 09/26/23 09:45:00 Time Out 09/26/23 10:33:00 09/26/23 10:33:00 09/26/23 10:33:00 Procedure CYSTOSCOPY(.) CYSTOSCOPY(.) CYSTOSCOPY(.) Comments dr gramajo supervising Last Modified By: Kyle RN, Anais Wright RN, Anais Wright RN, Anais Castro 09/26/23 10:33:04 09/26/23 10:33:04 09/26/23 10:33:04 Entry 4 Entry 5 Case Attendee Polo Brizuela BUTCHER HELPER, Sadie Nixon Role Performed Scrub - Primary Staff - Other Time In 09/26/23 09:45:00 09/26/23 09:45:00 Time Out 09/26/23 10:33:00 09/26/23 10:00:00 Procedure CYSTOSCOPY(.) CYSTOSCOPY(.) Comments Last Modified By: Anais Wright RN, RN, Amy J 09/26/23 10:33:04 09/26/23 10:33:04 General Comments: BREA NUÑEZ, UROLIFT EDUCATION SPECIALIST, ALSO IN ATTENDANCE. HILARY FLORESlens generating machine tender Protocols FT Pre-Care Text: Implements protective measures prior to operative or invasive procedure, confirms identity before the operative or invasive procedure, verifies operative procedure, surgical site, and laterality Entry 1 Procedure(s) CYSTOSCOPY(.) Patient Identity Birthday, ID Band Check Verified (select at least 2): Consents / H and P Anesthesia Consent, Operative Site N/A Verified HandP, Surgery/Procedure Marking Verified Consent Surgical Site Yes Laterality Verified n/a Verified Procedure Verified Yes Correct Patient Yes Position Verified Availability Equipment, Implant, Prep Dry n/a Verified (If Medication Applicable) PreOp Antibiotic Yes Time Out Tish ARROYO, KYM, Orourke Toro Kumar, Patito Sweet MD, Kyle RICHARD, Anais Castro, Polo Brizuela R, Tejinder BUTCHER HELPER, Sadie A Time Out Complete 09/26/23 10:09:00 Outcomes Met? Yes Last Modified By: Anais Wright RN 09/26/23 10:09:04 Post-Care Text: The patient is free from signs and symptoms of injury caused by extraneous objects Allergy Information FT Pre-Care Text: Verifies allergies Entry 1 Allergies Reviewed? Yes Allergies Reviewed Self/Patient With Outcomes Met? Yes Last Modified By: Anais Wright RN 09/26/23 07:58:31 Post-Care Text: The patient received appropriate medication(s) safely administered during the perioperative period Surgical Procedures FT Entry 1 Procedure Description Procedure CYSTOSCOPY Modifiers . Surgeon Description UROLIFT Primary Procedure Yes Primary Surgeon Kee NAVARRO, Patito Good Start 09/26/23 10:09:00 Stop 09/26/23 10:26:00 Anesthesia Type General Surgical Service Urology Wound Class 2 - Clean-Contaminated Last Modified By: Anais Wright RN 09/26/23 10:36:45 General Case Data FT Pre-Care Text: Classifies surgical wound, implements aseptic technique, initiates traffic control Entry 1 Case Information OR OR 1 FT Case Level Level 3 Wound Class 2 - Clean-Contaminated Specialty Urology ASA Class 3 Preop Diagnosis BPH WITH LUTS Postop Same As Preop Yes Postop Diagnosis BPH WITH LUTS Outcomes Met? Yes Last Modified By: Lissa Perales CST 09/28/23 14:41:32 Post-Care Text: The patient is free from signs and symptoms of infection Skin Assessment (Pre Procedure) FT Pre-Care Text: Implements protective measures to prevent skin/ tissue injury due to thermal or mechanical sources Evaluates for signs and symptoms of physical injury to skin and tissue Entry 1 Skin Integrity Intact, Mamers, Warm, and Skin Abnormality No Dry Outcomes Met? Yes Last Modified By: Kyle RICHADR, Anais Castro 09/26/23 09:59:04 Post-Care Text: The patient is free from signs and symptoms of injury caused by extraneous objects Patient Positioning FT Pre-Care Text: Identifies physical alterations that require additional precautions for procedure-specific positioning, verifies presence of prosthetics or corrective devices, positions the patient, evaluates the patient for signs and symptoms of injury as a result of positioning Entry 1 Procedure CYSTOSCOPY(.) Body Position Low Lithotomy Feet Uncrossed? Yes Left Arm Position Resting at Side Right Arm Position Resting at Side Left Leg Position Secured in St (more content not included)... [facility] Consent for Anesthesiaon Consent for Anesthesia [id number]#1.00TIFF [facility] Discharge Instructionson Discharge Instructions [id number]#[id number] [facility] IntraOperative Documentson 1 11-28-2022 IntraOperative Documents [id number]#1.00TIFF [facility] Preoperative Documentson Preoperative Documents [id number]#1.00TIFF [facility] COAGULATIONOrdered By: Sheree Lopez on 09-26-2023 aPTT Coag (PPP) [Time] 32.6 s Normal 25.1 - 36.5 second(s) [facility] Auto Coag Comment on above: Interpretive Data: P schuylerer 15 days - 4 weeks 1 - 5 months 6 - 11 months 1 - 5 years 6 - 10 years 11 - 17 years PTT Mean: 35.4 (27.6-45.6) Mean: 33.5 (24.8-40.7) Mean: 32.4 (25.1-40.7) Mean: 31.6 (24.0-39.2) Mean: 31.6 (26.9-38.7) Mean: 31.0 (24.6-38.4) Pediatric Reference ranges were obtained from a study by Toy Croft et alAlejo prepared from 1437 samples obtained at 7 different centers using the same coagulation reagent and instrumentation as [facility]. Currently there are no coagulation studies available worldwide for children to 14 days, and no normal ranges. Heparin therapeutic range (represented by Anti-Factor Xa activity of 0.2 - 0.4 U/mL) corresponds to PTT of 56.6 - 109.0 sec. INR Coag (PPP) [Relative time] 1.1 {INR} Invalid Interpretation Code [facility] Comment on above: Interpretive Data: I NR results are specifically intended to assess patients stabilized on long-term Anticoagulation therapy suggested INR s Less Intensive Anticoagulation 2.0 3.0 Conventional Range 3.0 4.5 PT Coag (PPP) [Time] 12.6 s High 9.4 - 1 2.5 second(s) [facility] Comment on above: Interpretive Data: 1 5 days - 4 weeks 1 - 5 months 6 -11 months 1 5 years 6 10 years 11 -17 years Mean: 11.2 (9.5 12.6) Mean: 11.0 (9.7 12.8) Mean: 11.0 (9.8 13.0) Mean: 11.3 (9.9 13.4) Mean: 11.7 (10.0 14.6) Mean: 11.8 (10.0 - 14.1) Pediatric Reference ranges were obtained from a study by carissa Dewitt prepared from 1437 samples obtained at 7 different centers using the same coagulation reagent and instrumentation as [facility]. Currently there are no coagulation studies available worldwide for children to 14 days, and no normal ranges. Consent for Procedure/Surger yon 12-12-2023 Consent for Procedure/Surgery [id number]#1.00TIFF Normal [facility] Consent for Treatmenton 09-15 Consent for Treatment [id number]#1.00TIFF Normal [facility] Discharge Instructionson Discharge Instructions LIMA LOYD :1965 Visit Date:09/26/2023 Inpatient Discharge Instructions Your Care Team Admitting Physician - Patito Sweet MD Referring Physician - Patito Sweet MD Reason for Your Visit BPH WITH LUTS Your Diagnosis BPH with urinary obstruction Other obstructive and reflux uropathy Procedure History Cystoscopic laser lithotripsy of ureteric calculus (11/29/2022), ESWL of kidney (08/23/2022), Cystoscopy (07/12/2022), Epidural injection of cervical spine using fluoroscopic guidance (08/17/2018), Epidural injection of cervical spine using fluoroscopic guidance (05/26/2017), Epidural injection of cervical spine using fluoroscopic guidance (09/16/2016), Back (2000), Total knee replacement, Total knee replacement. What to do next Instructions From Your Doctor Event Name Event Result Discharge Activity Ambulate as tolerated, Arrange for a responsible adult supervision for 24 hours, Expect mild pain, Expect minimal amount of drainage and/or bleeding Discharge Restrictions No driving for 24 hrs, Do not operate machinery or tools, Do not make important decisions for 24 hours, Do not drink alcoholic beverages for 24 hours Discharge Diet(s) Drink liquids and eat a light meal Call Your Doctor For Persistent or heavy bleeding, Temperature above 101.5 degrees, Severe pain at the operative site, Persistent vomiting Pharmacy Information [facility] Discharge Instructions Discharge Instructions New Follow Up Appointments after Discharge Follow Up with Patito Sweet When: Comments: Call for followup appointment in 1 month with PVR Where: [facility], [address] [address] [phone] Business (1) Medications What How Much When Instructions Next Dose New acetaminophen-hydrocodone (Conway 325 mg-5 mg oral tablet) 1 Tablets By Mouth Every 6 hours as needed for for pain Duration: 3 Days Pickup at [facility] [id number] New levofloxacin (Levaquin 500 mg Tab) 1 Tablets By Mouth Every 24 hours Duration: 3 Days Pickup at [facility] [id number] New oxybutynin (oxybutynin 5 mg Tab) 1 Tablets By Mouth 3 times a day Pickup at [facility] [id number] Unchanged alprazolam (Xanax 0.25 mg Tab) 1 Tablets By Mouth As needed for for anxiety Unchanged citalopram (citalopram 40 mg Tab) 1 Tablets By Mouth Every day Unchanged gabapentin (gabapentin 600 mg Tab) 1 Tablets By Mouth 2 times a day Unchanged irbesartan (irbesartan 300 mg Tab) 1 Tablets By Mouth Every day Unchanged potassium citrate (potassium CITRATE 10 mEq ER Tab) 1 Tablets By Mouth 2 times a day Unchanged tadalafil (Cialis 10 mg Tab) 1 Tablets By Mouth As Directed as needed for for erectile dysfunction Take one hour prior to sexual intercourse. Do not exceed 20mg within 24 hrs. Unchanged temazepam (temazepam 30 mg Cap) 1 Capsules By Mouth Once a day (at bedtime) as needed for for sleep Unchanged tramadol (traMADOL 50 mg Tab) Pharmacy Information [facility] [id number]: [address] [place], [place] [phone] Allergies Augmentin (Hives) Bee Stings morphine (Unknown) Devices Implanted/Removed This Visit Notice: You have devices implanted this visit that may not be MRI compatible. Implanted CYSTOSCOPY Pelvis and Genitalia IMPLANT UROLIFT SYSTEM 09/26/2023 IMPLANT UROLIFT SYSTEM (6), 09/26/2023 [employer] [facility], [place] Post-Operative Instructions for UroLift After your procedure it is normal to have: Gross Hematuria (blood in the urine) You may even notice blood clots in your urine. A small amount of blood may apppear to be a lot of blood in your urine as it is diluted. Restarting your blood thinner, increased activity and heavy lifting could increase the amount of bleeding. The bleeding may be sporadic (off and on) over the next 2-3 weeks. Ensure you are hydrating to assist in flushing the blood to prevent voiding complications. In the event you are unable to void, please reach out to our office. If the office is closed, you will need to report to the local emergency room. Blood in your semen and stool may be present. The blood in your semen is not harmful to you or your partner. This will resolve with time. Frequency/urgency/burning with urination is very common. This is due to irritation from your procedure. These symptoms do not indicate that your procedure was unsuccessful or that there is an infection. Ensure you are hydrating! You may try AZO over the counter as needed for urinary discomfort. Pain/discomfort are normal as well. There has been a non-narcotic prescription sent to your pharmacy. You may alternate this prescription with over the counter Ibuprofen. Your pain and discomfort should improve within a few days. When do I need to call the office? We ask that you reach out to the office if you experien (more content not included)... Normal [facility] Comment on above: Result Comment: Elec tronically Signed By: Karen RICHARD, Marci Aceves\.br\Date and Time Signed: 09/26/23 11:05 EST H&P Updateon 09-26-2023 H&P Update [id number] Normal [facility] Inpatient Patient Summaryon 09-26-2023 Inpatient Patient Summary [place] [id number] [facility] Clinical Discharge Instructions PERSON INFORMATION Name: LIMA LOYD PHYSICIANS Admitting Physician: Patito Sweet MD Attending Physician: Patito Sweet MD PCP: Jeff Terrell MD Discharge Diagnosis: BPH with urinary obstruction; Other obstructive and reflux uropathy Comment: PATIENT EDUCATION INFORMATION Instructions: Lue - Urolift Post-Op Instructions (CUSTOM) Medication Leaflets: Follow up: With: Address: When: Patito Sweet [address] [place] [address] [phone] Business (1) Comments: Call for followup appointment in 1 month with PVR MEDICATION LIST New Medications [facility] [id number], [address] [place] [phone], [phone] acetaminophen-hydrocodone (Conway 325 mg-5 mg oral tablet) 1 Tablets By Mouth every 6 hours as needed for pain for 3 Days. Refills: 0. levofloxacin (Levaquin 500 mg Tab) 1 Tablets By Mouth every 24 hours for 3 Days. Refills: 0. oxybutynin (oxybutynin 5 mg Tab) 1 Tablets By Mouth 3 times a day. Refills: 0. Medications to Continue with No Changes Other Medications alprazolam (Xanax 0.25 mg Tab) 1 Tablets By Mouth as needed for anxiety. citalopram (citalopram 40 mg Tab) 1 Tablets By Mouth every day. gabapentin (gabapentin 600 mg Tab) 1 Tablets By Mouth 2 times a day. irbesartan (irbesartan 300 mg Tab) 1 Tablets By Mouth every day. potassium citrate (potassium CITRATE 10 mEq ER Tab) 1 Tablets By Mouth 2 times a day. Refills: 3. tadalafil (Cialis 10 mg Tab) 1 Tablets By Mouth As Directed as needed for erectile dysfunction. Take one hour prior to sexual intercourse. Do not exceed 20mg within 24 hrs.. Refills: 0. temazepam (temazepam 30 mg Cap) 1 Capsules By Mouth once a day (at bedtime) as needed for sleep. tramadol (traMADOL 50 mg Tab) Comment: [facility] Main OR PACU I Recordon 09-15 Main OR PACU I Record PACU Phase I Docum ent Type FT Summary Primary Physician: Patito Sweet MD Finalized Date/Time: 09/26/23 11:48:18 Pt. Name: LIMA LOYD/Sex: 1965 Male Med Rec #: [id number] Physician: Patito Sweet MD Financial #: [id number] Pt. Type: A Room/Bed: [facility]/ Admit/Disch: 09/26/23 07:01:16 - Institution: Case Times PACU I FT Pre-Care Text: Identifies barriers to communication and implements measures to provide psychological support Develops individualized plan of care, and ensures continuity of care Maintains patient's dignity and privacy, and maintains patient confidentiality Identifies and reports philosophical, cultural, and spiritual beliefs and values Identifies individual values and wishes concerning care Implements aseptic technique, and administers prescribed antibiotic therapy and immunizing agents as ordered Evaluates postoperative tissue perfusion Implements thermoregulation measures, and monitors body temperature Evaluates postoperative respiratory status Evaluates postoperative cardiac status Evaluates postoperative neurological status Assesses pain control, collaborated in initiating patient-controlled analgesia and implements alternative methods of pain control Verifies allergies, administers prescribed medications and solutions, evaluates response to medications Entry 1 In PACU I 09/26/23 10:34:00 Discharge from PACU 09/26/23 11:04:00 I Outcomes Met? Yes Last Modified By: Fely Dowd RN 09/26/23 11:47:59 Post-Care Text: The patient demonstrates knowledge of the expected response to the operative or invasive procedure The patient's care is consistent with the individualized perioperative plan of care The patient's right to privacy is maintained The patient's value system, lifestyle, ethnicity, and culture are considered, respected, and incorporated into the perioperative plan of care The patient participates in decisions affecting his or her perioperative plan of care The patient is free from signs and symptoms of infection The patient has wound/tissue perfusion consistent with or improved from baseline levels established preoperatively The patient is at or returning to normothermia at the conclusion of the immediate postoperative period The patient's respiratory function is consistent with or improved from baseline levels established preoperatively The patient's cardiovascular status is consistent with or improved from baseline levels established preoperatively The patient's cardiovascular status is consistent with or improved from baseline levels established preoperatively The patient demonstrates and/or reports adequate pain control throughout the perioperative period The patient received appropriate medication(s), safely administered during the perioperative period Acuity Level PACU I FT Entry 1 Start Time 09/26/23 10:34:00 Stop Time 09/26/23 11:04:00 Acuity Level Acuity Level I Last Modified By: Fely Dowd RN 09/26/23 11:48:11 Finalized By: Fely Dowd RN Document Signatures Signed By: Fely Dowd RN 09/26/23 11:48 Normal [facility] Monitor Recordon 09-26-2023 Monitor Record [id number] Normal [facility] Operative Reporton 3 Operative Report Patient: BLANCA LOYD Age: 58 years Sex: Male : 1965 Associated Diagnoses: None Author: Patito Sweet MD Procedure Operative Information Details: Date/ Time: 09/26/2023 10:48:00. Pre-Op Dx: BPH w/ LUTS - N40.1. Post-Op Dx: Same. Anesthesia Type: Local. Procedure: Cystoscopy with UroLift Prostatic Urethral Lift. Complications: None. Risks/Benefits/Informed Consent: Surgical risks, benefits, details of the procedure have been explained to the patient, Full informed consent has been obtained. Indications: INDICATIONS: 58-year-old male with benign prostatic hyperplasia and bothersome voiding symptoms including obstruction. Specifically, the patient has an IPSS of 23, post-void residual volume (PVR) of 77 ml, and serum PSA level of 0.65 ng/ml. CT scan calculcated 40 gram prostate volume. Office cystoscopy demonstrates moderate to severe bilateral lateral lobe obstruction without median lobe component. His symptoms have failed to improve on medical therapy (alpha blockers and tadalafil). After discussion of surgical treatment options, the patient elected a prostatic urethral lift procedure in which permanent transprostatic implants are installed to create a wider channel by which to void. Other surgical alternatives were rejected due to known adverse sexual side effects. . Intraoperative Information Procedure: PROCEDURE IN DETAIL: After the risks, benefits, indications, alternatives and expectations of the procedure were reviewed with the patient and informed consent was obtained, the patient was taken to operative suite and placed in the supine position. Sequential compression devices were placed on bilateral lower extremities. General anesthesia LMA was induced and the patient was transitioned to the lithotomy position and prepped and draped in the usual sterile fashion for cystoscopy. A preoperative dose of antibiotics was given. A timeout was observed prior to initiating the procedure. Lidocaine gel was inserted into the urethra and bladder. A 20F cystoscope was inserted into the bladder. The cystoscopy bridge was replaced with a UroLift UL-2 delivery device. The first treatment site was the patient's left side approximately 1.5 cm distal to the bladder neck. The distal tip of the delivery device was then angled anterior laterally approximately 10 degrees at this position to compress the lateral lobe. The trigger was pulled, thereby deploying a needle containing the implant through the prostate. The implant was additionally compressed for total 20 degrees, trigger pulled and needle was then retracted, allowing one end of the implant to be delivered to the capsular surface of the prostate. The implant was then tensioned to assure capsular seating and removal of slack monofilament. The device was then angled back toward midline and slowly advanced proximally (typically 3 to 4 mm) until cystoscopic verification of the monofilament being centered in the delivery bay. The urethral end piece was then affixed to the monofilament thereby tailoring the size of the implant. Excess filament was then severed. The delivery device was then re-advanced into the bladder. The delivery device was then replaced with cystoscope and bridge and the implant location and opening effect was confirmed cystoscopically. The same procedure was then repeated on the right side however the implant did not seat. Reattempt with less compression was able to seat the device appropriately. Two additional implants were delivered in the mid gland on the right and left side of the prostate following a similar technique. 2 more implants were then placed just proximal to the verumontanum, again one on right and one on left side of the prostate. Cystoscopy then revealed a persistent area of obstruction, and one more implant was delivered in the mid/proximal prostate on the left. A final cystoscopy was conducted first to inspect the location and state of each implant and second, to confirm the presence of a continuous anterior channel was present through the prostatic urethra with irrigation flow turned off. All instruments were removed. The patient's bladder was left full to allow patient to void prior to discharge home. The patient tolerated the procedure well without complication. He was awakened from anesthesia and sent to PACU in stable condition. . Specimens Removed: None. Devices Implanted: 8 implants attempted, 7 seated. Attempted deployment of 2nd implant on patient's right side, implant did not properly seat and implant retracted into the device. Upon second attempt and less compression, implant seated properly, effectively addressing lateral lobe obstruction.. Postoperative Information Discharge: The patient tolerated the procedure well and was subsequently discharged home, Void prior to discharge home. Follow-up in 1 month [facility]. Normal [facility] Comment on above: Result Comment: Elec tronically Signed By: Patito Sweet MD\.br\Date and Time Signed: 09/26/23 11:00 EST Outpatient Surgery Discharge Instructionon 09-26-2023 Outpatient Surgery Discharge Instruction [place] [id number] Patient Discharge Instructions PERSON INFORMATION Name: LIMA LOYD Date of : 1965 Current Date: 09/26/2023 10:47:44 PHYSICIANS Admitting Physician: Patito Sweet MD Discharge Diagnosis: BPH with urinary obstruction; Other obstructive and reflux uropathy LIMA LOYD has been given the following list of follow-up instructions, prescriptions, and patient education materials: PATIENT FOLLOW-UP INFORMATION Diet: Drink liquids and eat a light meal Discharge Activity: Ambulate as tolerated, Arrange for a responsible adult supervision for 24 hours, Expect mild pain, Expect minimal amount of drainage and/or bleeding Discharge Restrictions: No driving for 24 hrs, Do not operate machinery or tools, Do not make important decisions for 24 hours, Do not drink alcoholic beverages for 24 hours Call Your Doctor For: Persistent or heavy bleeding, Temperature above 101.5 degrees, Severe pain at the operative site, Persistent vomiting IF UNABLE TO CONTACT YOUR PHYSICIAN AND YOU FEEL IT IS AN EMERGENCY, GO TO THE NEAREST EMERGENCY ROOM OR CALL 911 I, LIMA LOYD, have received the attached patient education materials/instructions and have verbalized understanding: May we do a follow up call? Yes No I was present when discharge instructions were given ____ Patient Signature _ Date Clinican/Nurse Signature Date Follow up: With: Address: When: [address], [address] [address] [phone] Business (1) Comments: Call for followup appointment in 1 month with [facility] Pharmacy Information: [facility] You may receive a survey from [employer] asking you to rate your care experience. Your feedback is important and will help us understand what we do well and how we can improve the quality of care we provide to you, your loved ones and our community. It?s an honor to serve you. Thank you for choosing [facility] HERE ARE THE MEDICATION CHANGES THAT OCCURRED DURING YOUR HOSPITAL STAY New Medications [facility] [id number], [address] [place], [place] [id number], [phone] acetaminophen-hydrocodone ([place] 325 mg-5 mg oral tablet) 1 Tablets By Mouth every 6 hours as needed for pain for 3 Days. Refills: 0. levofloxacin (Levaquin 500 mg Tab) 1 Tablets By Mouth every 24 hours for 3 Days. Refills: 0. oxybutynin (oxybutynin 5 mg Tab) 1 Tablets By Mouth 3 times a day. Refills: 0. Medications to Continue with No Changes Other Medications alprazolam (Xanax 0.25 mg Tab) 1 Tablets By Mouth as needed for anxiety. citalopram (citalopram 40 mg Tab) 1 Tablets By Mouth every day. gabapentin (gabapentin 600 mg Tab) 1 Tablets By Mouth 2 times a day. irbesartan (irbesartan 300 mg Tab) 1 Tablets By Mouth every day. potassium citrate (potassium CITRATE 10 mEq ER Tab) 1 Tablets By Mouth 2 times a day. Refills: 3. tadalafil (Cialis 10 mg Tab) 1 Tablets By Mouth As Directed as needed for erectile dysfunction. Take one hour prior to sexual intercourse. Do not exceed 20mg within 24 hrs.. Refills: 0. temazepam (temazepam 30 mg Cap) 1 Capsules By Mouth once a day (at bedtime) as needed for sleep. tramadol (traMADOL 50 mg Tab) PATIENT EDUCATION INFORMATION Instructions: [facility], [place] Post-Operative Instructions for UroLift After your procedure it is normal to have: Gross Hematuria (blood in the urine) You may even notice blood clots in your urine. A small amount of blood may apppear to be a lot of blood in your urine as it is diluted. Restarting your blood thinner, increased activity and heavy lifting could increase the amount of bleeding. The bleeding may be sporadic (off and on) over the next 2-3 weeks. Ensure you are hydrating to assist in flushing the blood to prevent voiding complications. In the event you are unable to void, please reach out to our office. If the office is closed, you will need to report to the local emergency room. Blood in your semen and stool may be present. The blood in your semen is not harmful to you or your partner. This will resolve with time. Frequency/urgency/burning with urination is very common. This is due to irritation from your procedure. These symptoms do not indicate that your procedure was unsuccessful or that there is an infection. Ensure you are hydrating! You may try AZO over the counter as needed for urinary discomfort. Pain/discomfort are normal as well. There has been a non-narcotic prescription sent to (more content not included)... Normal [facility] Outside Radiologyon 09-26-20 Outside Radiology [id number] Normal [facility] PT & PTTon 09-26-2023 aPTT Coag (PPP) [Time] 32.6 second(s) Normal 25.1-36.5 [facility] Comment on above: Result Comment: Para meter 15 days - 4 weeks 1 - 5 months 6 - 11 months 1 - 5 years 6 - 10 years 11 - 17 years PTT Mean: 35.4 (27.6-45.6) Mean: 33.5 (24.8-40.7) Mean: 32.4 (25.1-40.7) Mean: 31.6 (24.0-39.2) Mean: 31.6 (26.9-38.7) Mean: 31.0 (24.6-38.4) Pediatric Reference ranges were obtained from a study by carissa Dewitt prepared from 1437 samples obtained at 7 different centers using the same coagulation reagent and instrumentation as [facility]. Currently there are no coagulation studies available worldwide for children to 14 days, and no normal ranges. Heparin therapeutic range (represented by Anti-Factor Xa activity of 0.2 - 0.4 U/mL) corresponds to PTT of 56.6 - 109.0 sec. Performed By: #### 1 [id number] ####[facility] [id number] [place] [address] INR Coag (PPP) [Relative time] 1.1 {INR} Invalid Interpretation Code [facility] Comment on above: Result Comment: INR results are specifically intended to assess patients stabilized on long-term Anticoagulation therapy suggested INR?s ?Less Intensive Anticoagulation? 2.0 ? 3.0 Conventional Range 3.0 ? 4.5 Performed By: #### 1 [id number] ####[facility] [id number] [place] [address] PT Coag (PPP) [Time] 12.6 second(s) High 9.4-12.5 [facility] Comment on above: Result Comment: 15 d ays - 4 weeks 1 - 5 months 6 -11 months 1 ? 5 years 6 ? 10 years 11 -17 years Mean: 11.2 (9.5 ? 12.6) Mean: 11.0 (9.7 ? 12.8) Mean: 11.0 (9.8 ? 13.0) Mean: 11.3 (9.9 ? 13.4) Mean: 11.7 (10.0 ? 14.6) Mean: 11.8 (10.0 - 14.1) Pediatric Reference ranges were obtained from a study by carissa Dewitt prepared from 1437 samples obtained at 7 different centers using the same coagulation reagent and instrumentation as [facility]. Currently there are no coagulation studies available worldwide for children to 14 days, and no normal ranges. Performed By: #### 1 [id number] ####[facility] [address] [place] [address] Patient Education - Texton 1 11-27-2022 Patient Education - Text [facility] [place] Post-Operative Instructions for UroLift After your procedure it is normal to have: Gross Hematuria (blood in the urine) You may even notice blood clots in your urine. A small amount of blood may apppear to be a lot of blood in your urine as it is diluted. Restarting your blood thinner, increased activity and heavy lifting could increase the amount of bleeding. The bleeding may be sporadic (off and on) over the next 2-3 weeks. Ensure you are hydrating to assist in flushing the blood to prevent voiding complications. In the event you are unable to void, please reach out to our office. If the office is closed, you will need to report to the local emergency room. Blood in your semen and stool may be present. The blood in your semen is not harmful to you or your partner. This will resolve with time. Frequency/urgency/burning with urination is very common. This is due to irritation from your procedure. These symptoms do not indicate that your procedure was unsuccessful or that there is an infection. Ensure you are hydrating! You may try AZO over the counter as needed for urinary discomfort. Pain/discomfort are normal as well. There has been a non-narcotic prescription sent to your pharmacy. You may alternate this prescription with over the counter Ibuprofen. Your pain and discomfort should improve within a few days. When do I need to call the office? We ask that you reach out to the office if you experience a temperature of 100.4 ? F or higher, excessive urinary bleeding, symptoms of infection, inability to urinate or uncontrolled pain. If the office is closed, you may need to present to the local emergency department. Lee catheter If you have a catheter and will remove it at home, you may do so the next day if urine is clear and no longer red/pink in color. If urine is red, wait until clear to remove the catheter. See attached instructions for removal. Postop UroLift Instructions ? Complete your antibiotic as instructed. ? Remain on all your urinary medication until follow up. ? Take your pain madications and AZO as needed. ? Resume any blood thinners 48 hour post procedure. ? Continue to hydrate! ? Minimize your activity for 72-96 hours post procedure. ? If you are prescribed Oxybutynin for bladder spasms, you may take this medication every 8 hours as needed. This medication may cause dry mouth/eyes and constipation. Taking an over the counter stool softener and drinking plenty of water will help with side effects. Lee Catheter Removal Your healthcare provider has instructed you to remove your Lee catheter. This is a thin, flexible tube that allows urine to drain out of your bladder and into a bag. It is important to properly remove your catheter to prevent infection and other complications. If you have any questions about removing the Lee catheter, ask your healthcare provider before trying to remove it. Otherwise, follow the instructions on this sheet. Lee Catheter The Lee catheter is held in place by a small balloon that is filled with water. To remove the catheter, you must first drain the water from the balloon. This is done using a syringe and the balloon port. This is the opening in the catheter that is not attached to the bag. It allows you to get to the balloon. Instructions for Removing the Catheter Follow the directions closely. Note: If the catheter does not come out with gentle pulling, stop and call your healthcare provider right away. ? Empty the bag of urine if needed. ? Wash your hands with soap and warm water. Dry them well. ? Gather your supplies. This includes a syringe that was given to you by your healthcare provider, a wastebasket, and a towel. ? Put the syringe into the balloon port on the catheter. The syringe fits tightly into the port with a firm push and twist motion. ? Wait as the water from the balloon empties into the syringe. Depending on how large the balloon is, you may need to repeat this process several times until all of the water is out of the balloon. ? Once the balloon is emptied, gently pull out the catheter. ? Put the used catheter in the wastebasket. Throw away the syringe. ? Use the towel to wipe up any spilled water or urine if needed. ? Wash your hands again. When to Call Your Healthcare Provider Call the healthcare provider right away if: ? You have a fever of 100.4 ?F (38?C) or higher, or as directed by your healthcare provider. ? You have questions about removing the catheter. ? The catheter does not come out with gentle pulling. ? You cannot urinate within 8 hours of removing the catheter. ? Your belly (abdomen) is painful or bloated ? You have burning pain with urination that lasts for 24 hours. ? You see a lot of blood in your urine. Light bleeding for 24 ho (more content not included)... Normal [facility] Progress Note-Physicianon Progress Note-Physician Patient: LIMA LOYD Age: 58 years Sex: Male : 1965 Associated Diagnoses: None Author: Clyde Gramajo Jr., DO Postoperative Information Postoperative disposition: Postoperative disposition: Home. Optimetrix number: Optimetrix number [id number]. Anesthetic utilized: General. Physical Examination Vital Signs 09/26/2023 10:50 EST Heart Rate Monitored 80 bpm Respiratory Rate Monitored 10 br/min Systolic Blood Pressure 152 mmHg HI Diastolic Blood Pressure 94 mmHg HI Blood Pressure Location Right arm Mean Arterial Pressure, Cuff 113 mmHg SpO2 94 % 09/26/2023 10:45 EST Heart Rate Monitored 83 bpm Respiratory Rate Monitored 17 br/min Systolic Blood Pressure 156 mmHg HI Diastolic Blood Pressure 94 mmHg HI Blood Pressure Location Right arm Mean Arterial Pressure, Cuff 115 mmHg SpO2 98 % 09/26/2023 10:40 EST Heart Rate Monitored 80 bpm Respiratory Rate Monitored 10 br/min Systolic Blood Pressure 140 mmHg HI Diastolic Blood Pressure 94 mmHg HI Blood Pressure Location Right arm Mean Arterial Pressure, Cuff 109 mmHg SpO2 98 % 09/26/2023 10:34 EST Temperature Axillary 36.5 DegC Heart Rate Monitored 84 bpm Respiratory Rate Monitored 9 br/min Systolic Blood Pressure 141 mmHg HI Diastolic Blood Pressure 88 mmHg Blood Pressure Location Right arm Mean Arterial Pressure, Cuff 106 mmHg SpO2 97 % Pain Assessment: Controlled, 09/26/2023 10:34 EST Numeric Pain Scale 0 = No pain . General: Awake, Alert, Appropriate. Respiratory: Adequate air exchange, Non-labored. Cardiovascular: Stable, Normal peripheral perfusion. Neurological: Neurologic exam at baseline. No changes.. Assessment Anesthetic outcome No anesthetic complications noted. No nausea/vomiting. Review / Management Condition: Stable. Plan Transfer/Discharge: Transfer/Discharge Discharge when meets criteria ( From PACU to Ambulatory Surgery Unit, and To home ). Normal [facility] Comment on above: Result Comment: Elec tronically Signed By: Clyde Gramajo Jr., DO\.br\Date and Time Signed: 09/26/23 11:06 EST Progress Note-Physician Patient: LIMA LOYD Age: 58 years Sex: Male : 1965 Associated Diagnoses: None Author: Clyde Gramajo Jr., DO Preoperative Information Anesthesia Preop Info NPO since midnight Anesthesia history: Patient history: No prior anesthetic problems. Informed consent: Signed by patient. Re-evaluation prior to induction: Initial evaluation reviewed: No significant change. Health Status Allergies: Allergic Reactions (Selected) Severity Not Documented Augmentin- Hives. Bee Stings- No reactions were documented. Morphine- Unknown., Allergies (3) Active Reaction Augmentin Hives Bee Stings None Documented morphine Unknown Current medications: (Selected) Inpatient Medications Ordered Lactated Ringers IV Tania 1000 mL 1,000 mL: 1,000 mL, IV, 100 mL/hr, Routine, Start date 09/26/23 8:31:00 EST, 10 hour(s), Total volume (mL): 1,000, 138.9 kg, 2.69, m2 Lactated Ringers IV Tania 1000 mL 1,000 mL: 1,000 mL, IV, 150 mL/hr, Routine, Start date 09/26/23 7:30:00 EST, 6.7 hour(s), Total volume (mL): 1,000 Phenergan 25 mg/mL Injection: 12.5 mg = 0.5 mL, Injection, IV Push, q2min PRN Other (see comment) for 2 dose(s), Stop date Limited # of times, Routine, Start date 09/26/23 8:31:00 EST, 09/26/23 8:31:00 EST ciprofloxacin additive + Premix Dextrose 5% Diluent 200 mL: 400 mg = 200 mL, Soln-IV, IV Piggyback, PREOP, Routine, Start date 09/26/23 7:30:00 EST, 200 mL/hr, Infuse over 60 minute(s) morphine 4 mg/mL Inj: 4 mg = 1 mL, Injection, IV Push, q4min PRN Pain 8-10 for 5 dose(s), Stop date Limited # of times, Routine, Start date 09/26/23 8:31:00 EST, 09/26/23 8:31:00 EST Prescriptions Prescribed Cialis 10 mg Tab: 10 mg = 1 tab(s), Oral, As Directed, PRN for erectile dysfunction, Take one hour prior to sexual intercourse. Do not exceed 20mg within 24 hrs., # 30 tab(s), Refills(s) 0, Pharmacy: [facility] [id number], 188, cm, 05/31/23 8:37:00 EDT, Height/Lengt... potassium CITRATE 10 mEq ER Tab: 10 mEq, 1 tab(s), Oral, BID, 180 tab(s), Refill(s) 3, [facility] [id number], 188, cm, 08/18/23 10:17:00 EDT, Height/Length Dosing, 132, kg, 08/18/23 10:17:00 EDT, Weight Dosing Documented Medications Documented Xanax 0.25 mg Tab: 0.25 mg = 1 tab(s), Oral, PRN for anxiety citalopram 40 mg Tab: 40 mg = 1 tab(s), Oral, Daily, Refills(s) 0 gabapentin 600 mg Tab: 600 mg = 1 tab(s), Oral, BID, Refills(s) 0 irbesartan 300 mg Tab: 300 mg = 1 tab(s), Oral, Daily, Refills(s) 0 temazepam 30 mg Cap: 30 mg = 1 cap(s), Oral, Once a day (at bedtime), PRN for sleep, Refills(s) 0 traMADOL 50 mg Tab: Refills(s) 0, Home Medications (8) Active Cialis 10 mg Tab 10 mg = 1 tab(s), PRN, Oral, As Directed citalopram 40 mg Tab 40 mg = 1 tab(s), Oral, Daily gabapentin 600 mg Tab 600 mg = 1 tab(s), Oral, BID irbesartan 300 mg Tab 300 mg = 1 tab(s), Oral, Daily potassium CITRATE 10 mEq ER Tab 10 mEq = 1 tab(s), Oral, BID temazepam 30 mg Cap 30 mg = 1 cap(s), PRN, Oral, Once a day (at bedtime) traMADOL 50 mg Tab Xanax 0.25 mg Tab 0.25 mg = 1 tab(s), PRN, Oral , Medications (5) Active Scheduled: (1) ciprofloxacin + Dextrose 5% Premix Diluent 200 mL 400 mg 200 mL, IV Piggyback, PREOP Continuous: (2) Lactated Ringers 1,000 mL 1,000 mL, IV, 150 mL/hr Lactated Ringers 1,000 mL 1,000 mL, IV, 100 mL/hr PRN: (2) morphine 4 mg/mL preservative-free [F] 4 mg 1 mL, IV Push, q4min promethazine 25 mg/mL Inj [F] 12.5 mg 0.5 mL, IV Push, q2min Problem list: All Problems Anxiety / SNOMED CT 17295663 / Confirmed Arthritis / SNOMED CT 2278373 / Confirmed BPH with urinary obstruction / SNOMED CT 2974728855 / Confirmed Cervical radiculopathy / SNOMED CT 934304182 / Confirmed Depression / SNOMED CT 75529627 / Confirmed ED (erectile dysfunction) / SNOMED CT 2090835370 / Confirmed Gross hematuria / SNOMED CT 659675617 / Confirmed History of prostatitis / SNOMED CT 6068724376 / Confirmed HTN (hypertension) / SNOMED CT 5642006769 / Confirmed Insomnia / SNOMED CT 739758700 / Confirmed Kidney stone / SNOMED CT 566165155 / Confirmed Lumbar radiculopathy / SNOMED CT 082416369 / Confirmed Poor short term memory / SNOMED CT 021584208 / Confirmed Prostatitis / SNOMED CT 37169227 / Confirmed Renal cyst / SNOMED CT 2489702298 / Confirmed Shoulder impingement syndrome / SNOMED CT 089170436 / Confirmed Thoracic spondylosis / SNOMED CT 0297495760 / Confirmed Tobacco use / SNOMED CT 236054808 / Confirmed Tremor / SNOMED CT 86833145 / Confirmed UTI (urinary tract infection) / SNOMED CT 488461004 / Confirmed Venous insufficiency / SNOMED CT 646836236 / Confirmed Resolved: Hematoma / SNOMED CT 3735992155 Canceled: Balanitis / SNOMED CT 06435785 Canceled: Erectile dysfunction / SNOMED CT 5541054117 Canceled: Gross hematuria / SNOMED CT 651568946 Canceled: Lesion of bladder / SNOMED CT 658403140 Canceled: Renal hematoma / SNOMED CT 143477008 Histories Past Medical History: Resolved He (more content not included)... Normal [facility] Comment on above: Result Comment: Elec tronically Signed By: Clyde Gramajo Jr., DO\.br\Date and Time Signed: 09/26/23 10:11 EST RAD - MISCon 09-19-2023 RAD - MISC [id number]#1.00TIFF Normal [facility] XR chest 2V*on 09-15-2023 XR chest 2V* [facility] [place] [address] [place] [address] XRay Report Signed Patient: Lima Loyd MR#: [id number] : 1965 Acct:[id number] Age/Sex: 58 / M ADM Date: 09/15/23 Loc: XD Room: Type: [facility] Attending Dr: Patito Sweet MD Copies to: Patito Sweet MD Ordering Provider: Patito Sweet MD Date of Service: 09/15/23 XR/XR chest 2V*: N40.1 Plain film chest 2 view HISTORY: Presurgical testing for prostate surgery COMPARISON: 08/12/2022 FINDINGS: SUPPORT DEVICES: None POSTSURGICAL CHANGES: None HEART: Within normal limits PULMONARY [place]ENRIET[place]: Within normal limits MEDIASTINUM: Unremarkable LUNGS AND PLEURA: No acute lung process, pleural effusion or pneumothorax identified. BONY STRUCTURES: Thoracic hyperostosis. ADDITIONAL FINDINGS calcified granuloma the left lung base unchanged. XR/XR chest 2V* IMPRESSION: No acute process. Impression dictated by: Garrett Astudillo M.D.09/15/2023 2:56 PM Dictation Location: [place] [address] Transcribed By: [facility] 09/15/23 1456 Dictated By: Garrett Astudillo DO 09/15/23 145 Signed By: 09/15/231455 Normal [facility] Outside Recordson 09-04-2023 Outside Records [id number]#1.00TIFF Normal [facility] ECG 12-Leadon 08-21-2023 ECG 12-Lead [id number]#1.00TIFF Normal [facility] Lab Reportson 08-21-2023 Lab Reports [id number]#1.00TIFF Normal [facility] Screenson 08-21-2023 Screens [id number]#1.00TIFF Normal [facility] Screens [id number]#1.00TIFF Normal [facility] Ambulatory Visit Summaryon 1 10-18-2022 Ambulatory Visit Summary LIMA LOYD A :1965 Visit Date:08/18/2023 Ambulatory Visit Instructions Your Diagnosis Kidney stone BPH with urinary obstruction ED (erectile dysfunction) History of prostatitis Tests Performed Urnls Dip Stick Auto w/o Microscopy POC 29310 Your Care Team Attending Physician - Kee NAVARRO, Patito Good Primary Care Physician - Jeff Terrell MD This Is Your Medications List potassium citrate (potassium CITRATE 10 mEq ER Tab) Contact prescribing physician if questions or concerns citalopram (citalopram 40 mg Tab) gabapentin (gabapentin 600 mg Tab) irbesartan (irbesartan 300 mg Tab) quetiapine (quetiapine 50 mg oral tablet) tadalafil (Cialis 10 mg Tab) temazepam (temazepam 30 mg Cap) tramadol (traMADOL 50 mg Tab) Procedures Performed Cystoscopic laser lithotripsy of ureteric calculus (11/29/2022), ESWL of kidney (08/23/2022), Cystoscopy (07/12/2022), Epidural injection of cervical spine using fluoroscopic guidance (08/17/2018), Epidural injection of cervical spine using fluoroscopic guidance (05/26/2017), Epidural injection of cervical spine using fluoroscopic guidance (09/16/2016), Back (2000), Total knee replacement. Discharge Vitals Heart Rate (Peripheral) 72 Blood Pressure 136/81 Height 188 cm Height 74 in Weight 132 kg Weight 290.4 lb BMI 37.35 Medications What How Much When Instructions Unchanged potassium citrate (potassium CITRATE 10 mEq ER Tab) 1 Tablets By Mouth 2 times a day Unchanged citalopram (citalopram 40 mg Tab) 1 Tablets By Mouth Every day Contact prescribing physician if questions or concerns Unchanged gabapentin (gabapentin 600 mg Tab) 1 Tablets By Mouth 2 times a day Contact prescribing physician if questions or concerns Unchanged irbesartan (irbesartan 300 mg Tab) 1 Tablets By Mouth Every day Contact prescribing physician if questions or concerns Unchanged quetiapine (quetiapine 50 mg oral tablet) Contact prescribing physician if questions or concerns Unchanged tadalafil (Cialis 10 mg Tab) 1 Tablets By Mouth As Directed as needed for for erectile dysfunction Take one hour prior to sexual intercourse. Do not exceed 20mg within 24 hrs. Contact prescribing physician if questions or concerns Unchanged temazepam (temazepam 30 mg Cap) 1 Capsules By Mouth Once a day (at bedtime) as needed for for sleep Contact prescribing physician if questions or concerns Unchanged tramadol (traMADOL 50 mg Tab) Contact prescribing physician if questions or concerns Test Results Urnls Dip Stick Auto w/o Microscopy POC 60795 (08/18/2023) Bilirubin Urine Dipstick - Negative Blood Urine Dipstick - Negative Glucose Urine Dipstick - Negative Ketones Urine Dipstick - Negative Leukocytes Urine Dipstick - Negative Nitrite Urine Dipstick - Negative Protein Urine Dipstick - Negative Specific Murray Urine Dipstick - 1.010 Urine Appearance Urine Dipstick - Clear Urine Color Urine Dipstick - Yellow Urobilinogen Urine Dipstick - Normal 0.2-1 EU/dl pH Urine Dipstick - 5.5 Allergies Augmentin (Hives) Bee Stings morphine (Unknown) Problems Ongoing - Any problem that you are currently receiving treatment for. Anxiety Arthritis BPH with urinary obstruction Cervical radiculopathy Depression ED (erectile dysfunction) Gross hematuria History of prostatitis HTN (hypertension) Insomnia Kidney stone Lumbar radiculopathy Poor short term memory Prostatitis Renal cyst Shoulder impingement syndrome Thoracic spondylosis Tobacco use Tremor UTI (urinary tract infection) Venous insufficiency Historical - Any problem that you are no longer receiving treatment for. Hematoma Patient Survey You may receive a survey via text or e-mail asking about your office visit. Please share your experience with us by completing your survey. We appreciate your feedback and thank you for choosing us for your care. Clive Teague [facility] Urology Office/Clinic Noteon 08-18-2023 Urology Office/Clinic Note Chief Complaint Pt is here for PO cystoscopy HPI Staff Follow up w/BMP. Previous DX: BPH w/ urinary obstruction, ED, gross hematuria, kidney stone, renal cyst, renal hematoma, UTI. S/P cystoscopy done on 07/11/23, Laser lithotripsy done on 11/29/22, ESWL done on 08/23/22. Previous KUB done on 07/07/23. Renal US done on 07/07/23 showed bilateral nonobstructing nephrolithiasis. Pt passed a kidney stone the morning of scope on 07/11/23. PVR 77mL. Pt just finished Bactrim for Prostatitis. Dysuria: denies Incomplete bladder emptying: denies Hematuria: denies Frequency: denies Urgency: denies Nocturia: 4-5x a night Stream: weak slow stream, sometimes strong Leaking: denies Post void dripping: denies Wearing pads/ Depends: denies Urge incontinence: denies Stress incontinence: denies Incontinence without Sensory Awareness: denies Abdominal pain: denies Flank pain: bilateral flank pain, pain 6/7 on 10 scale Sexual complaints: _ History of Present Illness Tests reviewed: reviewed UA and external labs I have reviewed the previous health record information and history for this patient from . I have reviewed and verified the staff HPI to be accurate for this encounter. There have been no associated fever, chills, flank pain, or blood in the urine. Denies any urinary infections since last encounter. Review of Systems PHQ Score Initial Depression Screen Score: 0 ROS - Provider Constitutional: denies weight loss, denies hot flashes. Eyes: denies eye problems. Gastrointestinal: denies nausea, denies vomiting. Cardiovascular: denies chest pain or angina. Integumentary: no dryness Musculoskeletal: denies musculoskeletal symptoms. ENMT: denies otolaryngeal symptoms. Respiratory: no shortness of breath. Heme/Lymph: denies easy bleeding tendency, denies easy bruising tendency. Psychiatric: no confusion, no anxiety. Genitourinary: See HPI. Physical Exam Vitals & Measurements HR: 72(Peripheral) BP: 136/81 HT: 74 in HT: 188 cm WT: 132 kg WT: 290.4 lb BMI: 37.35 General Appearance: alert, no distress, well nourished, well developed male. Assessment/Plan 57-year-old male here for follow up of BPH with worsening LUTS, kidney stones and ED 1. Kidney stone (N20.0: Calculus of kidney) S/P Lt ESWL 08/23/22 for 13 mm LLP stone. Known multiple stones throughout the kidney. CT AP wo con 09/28/22 - BL stones, largest 10mm in left kidney. Nonobstructing 7 x 7 x 5mm stones at the UPJ. Prominent stranding w/in left perirenal space which may be secondary to prior hemorrhage or represent recent obstruction and decompression. S/P Cysto/Lt Stent Placement on 09/30/22. S/p Cysto, L retrograde pyelogram, staged L ureteroscopy, Laser Litho, stone extraction, stent exchange (> 2 cm total stone burden) 11/29/22. Stone analysis 100% Ca Ox monohydrate. KUB 12/14/22 - Left nephrolithiasis measuring up to 1.3 cm, left ureteral stent. Renal US multiple foci measuring up to 7 mm, nonobstructing nephroliths R side. L Hematoma mid pole 6.4 x 4.3 x 3.9 cm Stone analysis 01/11/23 -70% Ca Ox mono and Ca Ox di 30%. Cysto, L stent removal 01/16/23. CHANTEL 03/03/23 - Several nonobstructing R stones, largest 6 mm. Several nonobstructing L stones, largest 8 mm. Personal review: located in calyceal diverticulum. KUB 03/03/23 - Few small stones RUP/RLP and LUP (known calyceal diverticulum) Serum Uric Acid 03/31/23 - 7.9, mildly elevated (normal in urine) LithoLink 05/22/23 - Lower Volume 1.8 Liters, Mildly low citrate 414, PH 5.4, higher normal Ca. -Started on potassium citrate twice daily. Tolerated this well. potassium 4.3 on external labs 08/15/2023 CHANTEL 07/07/23 - bilateral nonobstructing nephrolithiasis. Pt passed a kidney stone the morning of scope on 07/11/23. BUN 15, Crea 1.5 - external labs 08/15/2023 -Likely due to recent Bactrim and NSAID use for prostatitis. Recommend increase hydration Pt states that he had no SE's from the Potassium Citrate, has not been taking it due to running out. Advised pt that he should start this again. -Dietary modifications as above -increase fluid intake -Start Potassium Citrate 10 mEq ER BID again, refills sent today. 2. BPH with urinary obstruction (N40.1: Benign prostatic hyperplasia with lower urinary tract symptoms) Cysto 07/12/22 - Moderate bilobar lateral hypertrophy, tall, minimal intravesical mass effect from prostate, no median lobe. Previously tried Tamsulosin, d/c due to SE of dry mouth. Cysto 07/11/23 - [id number] bilobar hypertrophy, near kissing lateral lobes, 1+ trabeculations Calculated prostate volume: 40gms from CT 09/2022 PSA 12/2021 - 0.75 03/31/23 - 0.65 IPSS 23(6) Pt is currently taking Cialis 5mg daily - helped initially but now with worsening sx. Pt states he has indigestion with Cialis. Straining to void, stream varies, has been weak. Urge to urinate and will go to the bathroom and will be unable to urinate at all. Pt states that he would like to g (more content not included)... Normal [facility] Comment on above: Result Comment: Elec tronically Signed By: Kee NAVARRO, Patito Champagne.br\Date and Time Signed: 08/18/23 18:11 EDT\.br\Electronically Co-Signed By: Namita Alexander.br\Date and Time Co-Signed: 08/18/23 11:08 EDT Lab Reportson 08-16-2023 Lab Reports [id number] Normal [facility] Alanine aminotransferase [En zymatic activity/volume] in Serum or PlasmaOrdered By: Gaurav Scott on 08-15-2023 ALT [Catalytic activity/Vol] 17 U/L Normal 7-52 [facility] Comment on above: Performed By: #### E BS A1C, CMP wRFX A1C, CBC #### [address] Albumin [Mass/volume] in Ser um or Plasma by Bromocresol green (BCG) dye binding methoOrdered By: Gaurav Scott on 08-15-2023 Albumin BCG dye [Mass/Vol] 4.2 g/dL 3.5-5.7 [facility] Alkaline phosphatase [Enzyma tic activity/volume] in Serum or PlasmaOrdered By: Gaurav Scott on 08-15-2023 ALP [Catalytic activity/Vol] 47 U/L Normal 34-104 [facility] Comment on above: Result Comment: PERF ORMED BY: [place] [address] PATHOLOGIST DIRECTOR AMBULATORY BENEDICTO WOOD M.D. Performed By: #### E BS A1C, CMP wRFX A1C, CBC #### [address] Aspartate aminotransferase [ Enzymatic activity/volume] in Serum or PlasmaOrdered By: Gaurav Scott on 08-15-2023 AST [Catalytic activity/Vol] 13 U/L Normal 13-39 [facility] Comment on above: Performed By: #### E BS A1C, CMP wRFX A1C, CBC #### [address] Automated basophil %Ordered By: Gaurav Scott on 08-15-2023 Basophils/100 WBC (Bld) 0.8 % Normal . [facility] Comment on above: Performed By: #### E BS A1C, CMP wRFX A1C, CBC #### [address] Automated basophil countOrde red By: Gaurav Scott on 08-15-2023 Basophils (Bld) [#/Vol] 0.1 10*3/uL Normal 0.0-0.2 [facility] Comment on above: Result Comment: PERF ORMED BY: [place] [address] PATHOLOGIST DIRECTOR AMBULATORY BENEDICTO WOOD M.D. Performed By: #### E BS A1C, CMP wRFX A1C, CBC #### [address] Automated blood monocyte cou ntOrdered By: Gaurav Scott on 08-15-2023 Monocytes (Bld) [#/Vol] 0.7 10*3/uL Normal 0.0-0.8 [facility] Comment on above: Performed By: #### E BS A1C, CMP wRFX A1C, CBC #### [address] Automated eosinophil %Ordere d By: Gaurav Scott on 08-15-2023 Eosinophils/100 WBC (Bld) 2.5 % Normal . [facility] Comment on above: Performed By: #### E BS A1C, CMP wRFX A1C, CBC #### [address] Automated eosinophil countOr dered By: Gaurav Scott on 08-15-2023 Eosinophils (Bld) [#/Vol] 0.2 10*3/uL Normal 0.0-0.45 [facility] Comment on above: Performed By: #### E BS A1C, CMP wRFX A1C, CBC #### [address] Automated monocyte %Ordered By: Gaurav Scott on 08-15-2023 Monocytes/100 WBC (Bld) 10.3 % Normal . [facility] Comment on above: Performed By: #### E BS A1C, CMP wRFX A1C, CBC #### [address] Automated neutrophil %Ordere d By: Gaurav Scott on 08-15-2023 Neutrophils/100 WBC (Bld) 56.2 % Normal . [facility] Comment on above: Performed By: #### E BS A1C, CMP wRFX A1C, CBC #### [address] Bilirubin.total [Mass/volume ] in Serum or PlasmaOrdered By: Gaurav Scott on 08-15-2023 Bilirubin [Mass/Vol] 0.4 mg/dL Normal 0.3-1.0 [facility] Comment on above: Performed By: #### E BS A1C, CMP wRFX A1C, CBC #### [facility] [address] CMP with reflex to A1Con Albumin [Mass/Vol] 4.2 g/dL Normal 3.5-5.7 [facility] Comment on above: Performed By: #### E BS A1C, CMP wRFX A1C, CBC #### [facility] [address] [place] [address] [place] GFR/1.73 sq M.predicted MDRD (S/P/Bld) [Vol rate/Area] 53.298 mL/min/{1.73_m2} Normal [facility] Comment on above: Performed By: #### E BS A1C, CMP wRFX A1C, CBC #### [facility] [address] [place] [address] [place] Calcium [Mass/volume] in Ser um or PlasmaOrdered By: Gaurav Scott on 08-15-2023 Calcium [Mass/Vol] 8.6 mg/dL Normal 8.6-10.3 [facility] Comment on above: Performed By: #### E BS A1C, CMP wRFX A1C, CBC #### [facility] [address] [place] [address] [place] Carbon dioxide, total [Moles /volume] in Serum or PlasmaOrdered By: Gaurav Scott on 08-15-2023 CO2 [Moles/Vol] 23.6 mmol/L Normal 21.0-31.0 [facility] Comment on above: Performed By: #### E BS A1C, CMP wRFX A1C, CBC #### [facility] [address] [place] [address] [place] Chloride [Moles/volume] in S lilli or PlasmaOrdered By: Gaurav Scott on 08-15-2023 Chloride [Moles/Vol] 108 mmol/L High 98-107 [facility] Comment on above: Performed By: #### E BS A1C, CMP wRFX A1C, CBC #### [facility] [address] Complete Blood Count Auto Di ffon 08-15-2023 Mean Corpuscular HGB Conc 33.5 g/dL Normal 32.5-35.6 [facility] Comment on above: Performed By: #### E BS A1C, CMP wRFX A1C, CBC #### [facility] [address] [place] [address] [place] NRBC% 0.1 /100{WBC} Normal 0-0.5 [facility] Comment on above: Performed By: #### E BS A1C, CMP wRFX A1C, CBC #### [facility] [address] Creatinine [Mass/volume] in Serum or PlasmaOrdered By: Gaurav Scott on 08-15-2023 Creatinine [Mass/Vol] 1.50 mg/dL High 0.70-1.30 [facility] Comment on above: Performed By: #### E BS A1C, CMP wRFX A1C, CBC #### [facility] [address] EBS A1C with Estimated Ave G luon 08-15-2023 Glucose [Mass/Vol] 134 mg/dL Normal [facility] Comment on above: Result Comment: PERF ORMED BY: [place] [address] PATHOLOGIST DIRECTOR AMBULATORY BENEDICTO WOOD M.D. Performed By: #### E BS A1C, CMP wRFX A1C, CBC #### [facility] [address] EBS A1C with Estimated Ave G luOrdered By: Gaurav Scott on 08-15-2023 HbA1c (Bld) [Mass fraction] 6.3 % High 4.3-5.6 [facility] Comment on above: Increased risk for d iabetes: 5.7 - 6.4diabetes: >6.4glycemic control for adults with diabetes: <7.0 Result Comment: Incr eased risk for diabetes: 5.7 - 6.4 diabetes: >6.4 glycemic control for adults with diabetes: <7.0 Performed By: #### E BS A1C, CMP wRFX A1C, CBC #### [facility] [address] ECG 12 lead ECGon 08-15-2023 ECG 12 lead ECG [facility] [place] [address] [place] [address] Electrocardiograph Report Signed Patient: Lima Loyd MR#: [id number] : 1965 Acct:[id number] Age/Sex: 57 / M ADM Date: 08/15/23 Loc: Room: Type: [facility] Attending Dr: Gaurav Scott DO Ordering Provider: Gaurav Scott DO Date of Service: 08/15/23 ECG/ECG 12 lead ECG: Pre op Copies to: Test Reason : Blood Pressure : / mmHG Vent. Rate : 084 BPM Atrial Rate : 084 BPM P-R Int : 154 ms QRS Dur : 108 ms QT Int : 382 ms P-R-T Axes : 072 029 024 degrees QTc Int : 451 ms Normal sinus rhythm Normal ECG When compared with ECG of 28-FEB-2023 08:45, No significant change was found Confirmed by ALFONSO NAVARRO [facility], [place] ([id number]) on 08/15/2023 4:40:12 PM Referred By: NIDHI SCOTT Electronically Signed By:ELENA HAMILTON MD [facility] Transcribed By: MUS Signed By Elena Hamilton MD, FAC 08/15/23 1640 Normal [facility] Erythrocyte distribution wid th [Ratio] by Automated countOrdered By: Gaurav Scott on 08-15-2023 Erythrocyte distribution width (RBC) [Ratio] 15.4 % High 12.0-14.8 [facility] Comment on above: Performed By: #### E BS A1C, CMP wRFX A1C, CBC #### [facility] [address] [place] [address] [place] Erythrocytes [#/volume] in B lood by Automated countOrdered By: Gaurav Scott on 08-15-2023 RBC (Bld) [#/Vol] 5.14 10*6/uL Normal 3.90-5.60 [facility] Comment on above: Performed By: #### E BS A1C, CMP wRFX A1C, CBC #### [facility] [address] Glucose [Mass/volume] in Ser um or PlasmaOrdered By: Gaurav Scott on 08-15-2023 Glucose [Mass/Vol] 120 mg/dL High 70-100 [facility] Comment on above: ADA recommended refe rence range Result Comment: ADA recommended reference range Performed By: #### E BS A1C, CMP wRFX A1C, CBC #### [facility] [address] Glucose mean value [Mass/vol ume] in Blood Estimated from glycated hemoglobinOrdered By: Gaurav Scott on 08-15-2023 Average glucose Estimated from glycated hemoglobin (Bld) [Mass/Vol] 134 mg/dL [facility] Hematocrit [Volume Fraction] of Blood by Automated countOrdered By: Gaurav Scott on 08-15-2023 Hematocrit (Bld) [Volume fraction] 40.0 % Normal 38.8-50.0 [facility] Comment on above: Performed By: #### E BS A1C, CMP wRFX A1C, CBC #### [facility] [address] Hemoglobin [Mass/volume] in BloodOrdered By: Gaurav Scott on 08-15-2023 Hemoglobin (Bld) [Mass/Vol] 13.4 g/dL Normal 13.0-17.0 [facility] Comment on above: Performed By: #### E BS A1C, CMP wRFX A1C, CBC #### [facility] [address] Leukocytes [#/volume] correc tremaine for nucleated erythrocytes in Blood by Automated counOrdered By: Gaurav Scott on 08-15-2023 WBC corrected for nucl RBC Auto (Bld) [#/Vol] 6.6 10*3/uL 4.1-10.5 [facility] Leukocytes [#/volume] in Blo od by Automated countOrdered By: Gaurav Scott on 08-15-2023 WBC (Bld) [#/Vol] 6.6 10*3/uL Normal 4.1-10.5 [facility] Comment on above: Performed By: #### E BS A1C, CMP wRFX A1C, CBC #### [facility] [address] [place] [address] [place] Lymphocytes [#/volume] in Bl ood by Automated countOrdered By: Gaurav Scott on 08-15-2023 Lymphocytes (Bld) [#/Vol] 2.0 10*3/uL Normal 1.00-4.8 [facility] Comment on above: Performed By: #### E BS A1C, CMP wRFX A1C, CBC #### [place] [address] [place] Lymphocytes/100 leukocytes i n Blood by Automated countOrdered By: Gaurav Scott on 08-15-2023 Lymphocytes/100 WBC (Bld) 30.2 % Normal . [facility] Comment on above: Performed By: #### E BS A1C, CMP wRFX A1C, CBC #### [place] [address] [place] MCH [Entitic mass] by Automa tremaine countOrdered By: Gaurav Scott on 08-15-2023 MCH (RBC) [Entitic mass] 26.0 pg Low 27.5-35.2 [facility] Comment on above: Performed By: #### E BS A1C, CMP wRFX A1C, CBC #### [facility] [address] [place] [address] [place] MCHC Auto (RBC) [Mass/Vol]Or dered By: Gaurav Scott on 08-15-2023 MCHC (RBC) [Mass/Vol] 33.5 g/dL 32.5-35.6 [facility] MCV [Entitic volume] by Auto mated countOrdered By: Gaurav Scott on 08-15-2023 MCV (RBC) [Entitic vol] 77.7 fL Low 83.5-101 [facility] Comment on above: Performed By: #### E BS A1C, CMP wRFX A1C, CBC #### [facility] [address] Neutrophils [#/volume] in Bl ood by Automated countOrdered By: Gaurav Scott on 08-15-2023 Neutrophils (Bld) [#/Vol] 3.7 10*3/uL Normal 1.8-7.7 [facility] Comment on above: Performed By: #### E BS A1C, CMP wRFX A1C, CBC #### [facility] [address] No Panel InformationOrdered By: Gaurav Scott on 08-15-2023 Estimated GFR (CKD-EPI) 53.298 mL/Min [facility] Creatinine Clearance (Chem N/A [facility] Nucleated erythrocytes [Pres ence] in Blood by Automated countOrdered By: Gaurav Scott on 08-15-2023 Nucleated RBC Auto Ql (Bld) 0.1 /100{WBC} 0-0.5 [facility] Platelet mean volume [Entiti c volume] in Blood by Automated countOrdered By: Gaurav Scott on 08-15-2023 Platelet mean volume (Bld) [Entitic vol] 7.2 fL Normal 6.6-10.1 [facility] Comment on above: Performed By: #### E BS A1C, CMP wRFX A1C, CBC #### [place] [address] [place] Platelets [#/volume] in Bloo d by Automated countOrdered By: Gaurav Scott on 08-15-2023 Platelets (Bld) [#/Vol] 220 10*3/uL Normal 150-450 [facility] Comment on above: Performed By: #### E BS A1C, CMP wRFX A1C, CBC #### [place] [address] [place] Potassium [Moles/volume] in Serum or PlasmaOrdered By: Gaurav Scott on 08-15-2023 Potassium [Moles/Vol] 4.3 mmol/L Normal 3.5-5.1 [facility] Comment on above: Performed By: #### E BS A1C, CMP wRFX A1C, CBC #### [facility] [address] [place] [address] Protein [Mass/volume] in Ser um or PlasmaOrdered By: Gaurav Scott on 08-15-2023 Protein [Mass/Vol] 6.5 g/dL Normal 6.4-8.9 [facility] Comment on above: Performed By: #### E BS A1C, CMP wRFX A1C, CBC #### [address] Serum globulin measurement b y calculation (mass/volume)Ordered By: Gaurav Scott on 08-15-2023 Globulin (S) [Mass/Vol] 2.3 g/dL Normal [facility] Comment on above: Performed By: #### E BS A1C, CMP wRFX A1C, CBC #### [address] Serum or plasma albumin/glob ulin mass ratioOrdered By: Gaurav Scott on 08-15-2023 Albumin/Globulin [Mass ratio] 1.8 {ratio} [facility] Comment on above: Performed By: #### E BS A1C, CMP wRFX A1C, CBC #### [address] Serum or plasma anion gap de terminationOrdered By: Gaurav Scott on 08-15-2023 Anion gap [Moles/Vol] 10.7 mmol/L Normal 6.0-15.0 [facility] Comment on above: Performed By: #### E BS A1C, CMP wRFX A1C, CBC #### [place] [address] [place] Sodium [Moles/volume] in Ser um or PlasmaOrdered By: Gaurav Scott on 08-15-2023 Sodium [Moles/Vol] 138 mmol/L Normal 136-145 [facility] Comment on above: Performed By: #### E BS A1C, CMP wRFX A1C, CBC #### [address] Urea nitrogen [Mass/volume] in Serum or PlasmaOrdered By: Gaurav Scott on 08-15-2023 Urea nitrogen [Mass/Vol] 15 mg/dL Normal 7-25 [facility] Comment on above: Performed By: #### E BS A1C, CMP wRFX A1C, CBC #### [facility] [address] [place] [id number] [facility] Urology Office/Clinic Noteon 07-16-2023 Urology Office/Clinic Note Chief Complaint Pt is here for PO cystoscopy complications HPI Staff Lima is a 57 y.o. male here for PO cystoscopy complications. Previous Dx: BPH w/ urinary obstruction, ED, gross hematuria, kidney stone, renal cyst, renal hematoma, UTI. S/P cystoscopy done on 07/11/23, Laser lithotripsy done on 11/29/22, ESWL done on 08/23/22. KUB done on 07/07/23. Renal US done on 07/07/23 showed bilateral nonobstructing nephrolithiasis. Pt states he has a pain/burning under neath scrotum between anus and scrotum. Pt passed a kidney stone the morning of scope on 07/11/23. PVR 77mL. Dysuria: denies Incomplete bladder emptying: denies Hematuria: denies Frequency: denies Urgency: denies Nocturia: 2x a night Stream: weak stream Leaking: denies Post void dripping: denies Wearing pads/ Depends: denies Urge incontinence: denies Stress incontinence: denies Incontinence without Sensory Awareness: denies Abdominal pain: denies Flank pain: bilateral flank pain on occasion Sexual complaints: _ History of Present Illness staff HPI reviewed and agree. Review of Systems PHQ Score Initial Depression Screen Score: 0 no fever, chills, malaise, myalgia. no rash/lesions. no chest pain, palpitations, or SOB. no abdominal pain, nausea, vomiting. no unilateral calf swelling, redness, pain Physical Exam Vitals & Measurements HT: 74 in HT: 188 cm WT: 132 kg WT: 290.4 lb BMI: 37.35 General: nontoxic, NAD Mouth: moist mucosa Lungs: normal respiratory effort Cardio: regular rate, good distal perfusion Abdomen: nondistended, no suprapubic distention or tenderness, no CVA tenderness Neurologic: Grossly normal Skin: No rashes or suspicious lesions CELI: not boggy but mildly tender to palpation of prostate Assessment/Plan 1. Prostatitis (N41.9: Inflammatory disease of prostate, unspecified) sp cysto 2 days ago w KML. Pt states he has pain/burning underneath scrotum between anus and scrotum. Pain w BM. Pain w urination. Not sure if pain w ejaculation (hasn't ejaculated in that time). Tender prostate on CELI. IO UA today neg. The patient likely has prostatitis. He was advised about the different possible causes of bacterial and non-bacterial prostatitis. He needs to complete the course of prescribed antibiotics. He understands that the symptoms improve if he decreases his exercise and activity level. Anti-inflammatory medicines can also be helpful, as well as frequent ejaculations. Hot baths are also helpful in easing the discomfort. -Will send Bactrim DS x 4wks and Naproxen x 2 wks. Discussed the medication side effects, and the patient will monitor closely for these, as well as for symptom improvement. If severe side effects occur, the medication should be stopped and the office notified. 2. ED (erectile dysfunction) (N52.9: Male erectile dysfunction, unspecified) had a long discussion regarding his ED. pt wants to start dating again for the first time in over a decade. has not tried the Cialis 10mg PRN yet. we discussed the proper use extensively. pt had a lot of questions regarding JEEVAN. extensive discussion regarding proper use. -pt plans to purchase JEEVAN and try the Cialis 10mg PRN dosing and discuss efficacy w KML at next f/u 3. BPH with urinary obstruction (N40.1: Benign prostatic hyperplasia with lower urinary tract symptoms) Cysto 07/12/22 - Moderate bilobar lateral hypertrophy, tall, minimal intravesical mass effect from prostate, no median lobe. Previously tried Tamsulosin, d/c due to SE of dry mouth. Cysto 07/11/23 - [id number]-[id number] bilobar hypertrophy, near kissing lateral lobes, 1% trabeculations PSA 12/2021 - 0.75 03/31/23 - 0.65 IPSS 6 (2) Pt is currently taking Cialis 5mg daily - helped initially but now with worsening sx. Pt states he has indigestion with Cialis. Straining to void, stream varies, has been weak. Urge to urinate and will go to the bathroom and will be unable to urinate at all. Pt had a lot of questions regarding Urolift as far as safety, efficacy, what to expect post-op. I went over everything in great detail and answered all his questions to his satisfaction. He is not wanting to schedule at this time but would like to think about it some more and discuss w KML at next visit. Total time spent reviewing previous notes/results/external documents, preparing the chart, conducting the encounter with the patient and family, ordering tests/medications, and documenting the encounter was 40 minutes. Follow-up With When Contact Information JANINE GARCIA PA-C, [facility] [address] [place] [address] Additional Instructions: follow up with KML sched already Patient Education Prostatitis I, Namita Alexander, personally scribed for Janine Garcia PA-C on 07/13/2023 11:00:30. . Documentation recorded by the scribe Namita Alexander accurately reflects the services(s) I performed and decisions made by me. Authentic (more content not included)... Normal [facility] Comment on above: Result Comment: Elec tronically Signed By: AJNINE GARCIA PA-C\.br\Date and Time Signed: 07/16/23 22:54 EDT\.br\Electronically Co-Signed By: Namita Alexander\.br\Date and Time Co-Signed: 07/13/23 11:00 EDT Ambulatory Visit Summaryon 0 07-13-2023 Ambulatory Visit Summary EVERTLIMA MUÑOZ A :1965 Visit Date:07/13/2023 Ambulatory Visit Instructions Your Diagnosis BPH with urinary obstruction Kidney stone ED (erectile dysfunction) Prostatitis Tests Performed Urnls Dip Stick Auto w/o Microscopy POC [address] Your Care Team Attending Physician - JANINE GARCIA PA-C Primary Care Physician - Jeff Terrell MD This Is Your Medications List potassium citrate (potassium CITRATE 10 mEq ER Tab) tadalafil (Cialis 10 mg Tab) Contact prescribing physician if questions or concerns acetaminophen-hydrocodone (acetaminophen-hydrocodone 325 mg-5 mg oral tablet) alprazolam (alprazolam 0.25 mg Tab) aspirin (aspirin 81 mg Chew Tab) carbonyl iron (Iron Chews) celecoxib (celecoxib 200 mg Cap) citalopram (citalopram 40 mg Tab) furosemide (furosemide 40 mg Tab) gabapentin (gabapentin 600 mg Tab) irbesartan (irbesartan 300 mg Tab) temazepam (temazepam 30 mg Cap) Procedures Performed Cystoscopic laser lithotripsy of ureteric calculus (11/29/2022), ESWL of kidney (08/23/2022), Cystoscopy (07/12/2022), Epidural injection of cervical spine using fluoroscopic guidance (08/17/2018), Epidural injection of cervical spine using fluoroscopic guidance (05/26/2017), Epidural injection of cervical spine using fluoroscopic guidance (09/16/2016), Back (2000), Total knee replacement. Discharge Vitals Height 188 cm Height 74 in Weight 132 kg Weight 290.4 lb BMI 37.35 What to do next Scheduled Follow-Up Appointments Monday 10:00 AM EDT With: Patito Sweet MD Where: [facility] Patient Educationon 07-13-20 Patient Education Infectious Disease Prostatitis Prostatitis is swelling or inflammation of the prostate gland, also called the prostate. This gland is about 1.5 inches wide and 1 inch high, and it is involved in making semen. The prostate is located below a man's bladder, in front of the rectum. There are four types of prostatitis: ? Chronic prostatitis (CP), also called chronic pelvic pain syndrome (CPPS). This is the most common type of prostatitis. It is associated with increased muscle tone in the area between the hip bones (pelvic area), around the prostate. This type is also known as a pelvic floor disorder. ? Chronic bacterial prostatitis. This type usually results from an acute bacterial infection in the prostate gland that keeps coming back or has not been treated properly. The symptoms are less severe than those caused by acute bacterial prostatitis, which lasts a shorter time. ? Asymptomatic inflammatory prostatitis. This type does not have symptoms and does not need treatment. This is diagnosed when tests are done for other disorders of the urinary tract or reproductive tract. ? Acute bacterial prostatitis. This type starts quickly and results from an acute bacterial infection in the prostate gland. It is usually associated with a bladder infection, high fever, and chills. This is the least common type of prostatitis. What are the causes? Bacterial prostatitis is caused by an infection from bacteria. Chronic nonbacterial prostatitis may be caused by: ? Factors related to the nervous system. This system includes thebrain, spinal cord, and nerves. ? An autoimmune response. This happens when the body's disease-fighting system attacks healthy tissue in the body by mistake. ? Psychological factors. These have to do with how the mind works. The causes of the other types of prostatitis are usually not known. What are the signs or symptoms? Symptoms of this condition depend on the type of prostatitis you have. Acute bacterial prostatitis Symptoms may include: ? Pain or burning during urination. ? Frequent and sudden urges to urinate. ? Trouble starting to urinate. ? Fever. ? Chills. ? Pain in your muscles or joints, lower back, or lower abdomen. Other types of prostatitis Symptoms may include: ? Sudden urges to urinate, or urinating often. ? Trouble starting to urinate. ? Weak urine stream. ? Dribbling after urination. ? Discharge coming from the penis. ? Pain in the testicles, the penis, or the tip of the penis. ? Pain in the area in front of the rectum and below the scrotum (perineum). ? Pain when ejaculating. How is this diagnosed? This condition may be diagnosed based on: ? A physical and medical exam. ? A digital rectal exam. For this, the health care provider may use a finger to feel the prostate. ? A urine test to check for bacteria. ? A semen sample or blood tests. ? Ultrasound. ? Urodynamic tests to check how your body handles urine. ? Cystoscopy to look inside your bladder or inside the part of your body that drains urine from the bladder (urethra). How is this treated? Treatment for this condition depends on the type of prostatitis. Treatment may involve: ? Medicines to relieve pain or inflammation, or to help relax your muscles. ? Physical therapy. ? Heat therapy. ? Biofeedback. These techniques help you control certain body functions. ? Relaxation exercises. ? Antibiotic medicine, if your condition is caused by bacteria. ? Sitz baths. These warm water baths help to relax your pelvic floor muscles, which helps to relieve pressure on the prostate. Follow these instructions at home: Medicines ? Take [id number]-alfyehk and prescription medicines only as told by your health care provider. ? If you were prescribed an antibiotic medicine, take it as told by your health care provider. Do not stop using the antibiotic even if you start to feel better. Managing pain and swelling ? Take sitz baths as directed by your health care provider. For a sitz bath, sit in warm water that is deep enough to cover your hips and buttocks. ? If directed, apply heat to the affected area as often as told by your health care provider. Use the heat source that your health care provider recommends, such as a moist heat pack or a heating pad. ? Place a towel between your skin and the heat source. ? Leave the heat on for 20?30 minutes. ? Remove the heat if your skin turns bright red. This is especially important if you are unable to feel pain, heat, or cold. You may have a greater risk of getting burned. General instructions ? Do exercises as told by your health care provider, if you were prescribed physical therapy, biofeedback, or relaxation exercises. ? Keep all follow-up visits as told by your health care provider. This is important. Where to find more information ? National [place] of Diabetes and Digestive and Kidney Diseases: (more content not included)... Normal [facility] Operative Reporton 3 Operative Report [id number]:127 Normal [facility] Reminderson 07-12-2023 Reminders - From: Namita Alexander To: TEAGAN Sweet; Sent: 06/02/2023 16:19:22 EDT Show up: 06/30/2023 16:19:00 EDT Subject: Reminder Message Due Date/Time: 07/07/2023 16:19:00 EDT Pt needs KUB and CHANTEL prior to cysto on 07/11/23. Pt still needs the CHANTEL scheduled. Pt prefers [facility]. left vm for patient to call the office to see if he had testing done CHANTEL/KUB done and reviewed. Normal [facility] RAD - Ultrasound Reporton RAD - Ultrasound Report [id number]:127 Normal [facility] RAD - MISCon 07-10-2023 RAD - MISC [id number]:127 Normal [facility] Insurance Correspondenceon 0 06-13-2023 Insurance Correspondence [id number]:127 Normal [facility] Screenson 06-01-2023 Screens [id number]:127 Normal [facility] Screens [id number]:127 Normal [facility] Urology Office/Clinic Noteon 06-01-2023 Urology Office/Clinic Note Chief Complaint issues urinating HPI Staff Pt is here today due to difficulty urinating. Last seen in our office 03/09/23 due to Renal Hematoma, Kidney Stone & BPH. *Cialis 5mg qd therapy. PSA 03/31/23- 0.650 Uric 03/31/23- 7.9 (4.4-7.6) Litholink 05/16/23 IPSS today 6, ABDELRAHMAN 7 passed a stone last week Dysuria: no Incomplete bladder emptying: feels empty pvr today is 68ml, unable to give a sample today Hematuria: no Frequency: q2-3hrs Urgency: intermittent Nocturia: 2x Stream: stream varies, has been weak states he will get the urge to urinate and will go to the bathroom and will be unable to urinate at all Leaking: no Post void dripping: no Wearing pads/ Depends: no Urge incontinence: mild intermittent Stress incontinence: no Incontinence without Sensory Awareness: no Abdominal pain: bi lateral low stomach pain Flank pain: no Sexual complaints: no History of Present Illness Tests reviewed: LithoLink and Labs I have reviewed the previous health record information and history for this patient from . I have reviewed and verified the staff HPI to be accurate for this encounter. There have been no associated fever, chills, flank pain, or blood in the urine. Denies any urinary infections since last encounter. Review of Systems PHQ Score Initial Depression Screen Score: 0 ROS - Provider Constitutional: denies weight loss, denies hot flashes. Eyes: denies eye problems. Gastrointestinal: denies nausea, denies vomiting. Cardiovascular: denies chest pain or angina. Integumentary: no dryness Musculoskeletal: denies musculoskeletal symptoms. ENMT: denies otolaryngeal symptoms. Respiratory: no shortness of breath. Heme/Lymph: denies easy bleeding tendency, denies easy bruising tendency. Psychiatric: no confusion, no anxiety. Genitourinary: See HPI. Physical Exam Vitals & Measurements HT: 74 in HT: 188 cm WT: 132 kg WT: 290.4 lb BMI: 37.35 General Appearance: alert, no distress, well nourished, well developed male. Assessment/Plan Patient presented today for follow up of kidney stones, BPH with worsening LUTS. 1. BPH with urinary obstruction (N40.1: Benign prostatic hyperplasia with lower urinary tract symptoms) Cysto 07/12/22 - Moderate bilobar lateral hypertrophy, tall, minimal intravesical mass effect from prostate, no median lobe. Previously tried Tamsulosin, d/c due to SE of dry mouth. PSA 12/2021 - 0.75 03/31/23 - 0.65 IPSS 6 (2) Pt is currently taking Cialis - helped initially but now with worsening sx. Pt states he has indigestion with Cialis. Straining to void, stream varies, has been weak. Urge to urinate and will go to the bathroom and will be unable to urinate at all. Discussed management options including repeat cysto to ensure stone fragment not contributing given recent passage and onset on sx. BPH procedures such as rezum, urolift, laser and turp also discussed. Educational pamphlets provided. - Pt will think about his options and give his decision at his cysto. - Will schedule cystoscopy. The risks and benefits for cystoscopy have been discussed. The risks include bleeding, infection, and irritation of the bladder and urinary channel, among others. The patient, after being informed of procedural details and after questions have been answered, wishes to proceed. Full informed consent has been obtained. Will order Local anesthesia. -Calculate prostate volume from recent CT scan -Cont Cialis as indigestion allows Ordered: [id number] Measure Post Void residual urine and/or bladder capacity by US- non-imaging Urology Procedure Order 2. Kidney stone (N20.0: Calculus of kidney) S/P Lt ESWL 08/23/22 for 13 mm LLP stone. Known multiple stones throughout the kidney. CT AP wo con 09/28/22 - Nonobstructing BL stones, largest 10mm in left kidney. Nonobstructing 7 x 7 x 5mm stones at the UPJ. Prominent stranding w/in left perirenal space which may be secondary to prior hemorrhage or represent recent obstruction and decompression. S/P Cysto/Lt Stent Placement on 09/30/22. S/p Cysto, L retrograde pyelogram, staged L ureteroscopy, Laser Litho, stone extraction, stent exchange (> 2 cm total stone burden) 11/29/22. Stone analysis 100% Ca Ox monohydrate. KUB 12/14/22 - Left nephrolithiasis measuring up to 1.3 cm, left ureteral stent. Renal US multiple foci measuring up to 7 mm, nonobstructing nephroliths R side. L Hematoma mid pole 6.4 x 4.3 x 3.9 cm Stone analysis 01/11/23 -70% Ca Ox mono and Ca Ox di 30%. Cysto, L stent removal 01/16/23. CHANTEL 03/03/23 - Several nonobstructing R stones, largest 6 mm. Several nonobstructing L stones, largest 8 mm. Personal review: located in calyceal diverticulum. KUB 03/03/23 - Few small stones RUP/RLP and LUP (known calyceal diverticulum) Serum Uric Acid 03/31/23 - 7.9, mildly elevated (normal in urine) LithoLink 05/22/23 - Lower Volume 1.8 Liters, Mildly low citrate 414, PH 5.4, higher normal Ca. Pt states that he had passed a k (more content not included)... Normal [facility] Comment on above: Result Comment: Elec tronically Signed By: Kee NAVARRO, Patito Champagne.br\Date and Time Signed: 06/01/23 10:44 EDT Patient Educationon 05-31-20 Patient Education Urology Benign Prostatic Hyperplasia Benign prostatic hyperplasia (BPH) is an enlarged prostate gland that is caused by the normal aging process. The prostate may get bigger as a man gets older. The condition is not caused by cancer. The prostate is a walnut-sized gland that is involved in the production of semen. It is located in front of the rectum and below the bladder. The bladder stores urine. The urethra carries stored urine out of the body. An enlarged prostate can press on the urethra. This can make it harder to pass urine. The buildup of urine in the bladder can cause infection. Back pressure and infection may progress to bladder damage and kidney (renal) failure. What are the causes? This condition is part of the normal aging process. However, not all men develop problems from this condition. If the prostate enlarges away from the urethra, urine flow will not be blocked. If it enlarges toward the urethra and compresses it, there will be problems passing urine. What increases the risk? This condition is more likely to develop in men older than 50 years. What are the signs or symptoms? Symptoms of this condition include: ? Getting up often during the night to urinate. ? Needing to urinate frequently during the day. ? Difficulty starting urine flow. ? Decrease in size and strength of your urine stream. ? Leaking (dribbling) after urinating. ? Inability to pass urine. This needs immediate treatment. ? Inability to completely empty your bladder. ? Pain when you pass urine. This is more common if there is also an infection. ? Urinary tract infection (UTI). How is this diagnosed? This condition is diagnosed based on your medical history, a physical exam, and your symptoms. Tests will also be done, such as: ? A post-void bladder scan. This measures any amount of urine that may remain in your bladder after you finish urinating. ? A digital rectal exam. In a rectal exam, your health care provider checks your prostate by putting a lubricated, gloved finger into your rectum to feel the back of your prostate gland. This exam detects the size of your gland and any abnormal lumps or growths. ? An exam of your urine (urinalysis). ? A prostate specific antigen (PSA) screening. This is a blood test used to screen for prostate cancer. ? An ultrasound. This test uses sound waves to electronically produce a picture of your prostate gland. Your health care provider may refer you to a specialist in kidney and prostate diseases (urologist). How is this treated? Once symptoms begin, your health care provider will monitor your condition (active surveillance or watchful waiting). Treatment for this condition will depend on the severity of your condition. Treatment may include: ? Observation and yearly exams. This may be the only treatment needed if your condition and symptoms are mild. ? Medicines to relieve your symptoms, including: ? Medicines to shrink the prostate. ? Medicines to relax the muscle of the prostate. ? Surgery in severe cases. Surgery may include: ? Prostatectomy. In this procedure, the prostate tissue is removed completely through an open incision or with a laparoscope or robotics. ? Transurethral resection of the prostate (TURP). In this procedure, a tool is inserted through the opening at the tip of the penis (urethra). It is used to cut away tissue of the inner core of the prostate. The pieces are removed through the same opening of the penis. This removes the blockage. ? Transurethral incision (TUIP). In this procedure, small cuts are made in the prostate. This lessens the prostate's pressure on the urethra. ? Transurethral microwave thermotherapy (TUMT). This procedure uses microwaves to create heat. The heat destroys and removes a small amount of prostate tissue. ? Transurethral needle ablation (TUNA). This procedure uses radio frequencies to destroy and remove a small amount of prostate tissue. ? Interstitial laser coagulation (ILC). This procedure uses a laser to destroy and remove a small amount of prostate tissue. ? Transurethral electrovaporization (TUVP). This procedure uses electrodes to destroy and remove a small amount of prostate tissue. ? Prostatic urethral lift. This procedure inserts an implant to push the lobes of the prostate away from the urethra. Follow these instructions at home: ? Take bapw-dsy-synigqh and prescription medicines only as told by your health care provider. ? Monitor your symptoms for any changes. Contact your health care provider with any changes. ? Avoid drinking large amounts of liquid before going to bed or out in public. ? Avoid or reduce how much caffeine or alcohol you drink. ? Give yourself time when you urinate. ? Keep all follow-up visits. This is important. Contact a health care provider if: ? You have unexplained back pain. ? Your symptoms do not get better with treatment. ? You develop side effects from the medicine (more content not included)... Normal [facility] Alanine aminotransferase [En zymatic activity/volume] in Serum or PlasmaOrdered By: Gaurav Scott on 03-31-2023 ALT [Catalytic activity/Vol] 16 U/L 7-52 [facility] Albumin [Mass/volume] in Ser um or Plasma by Bromocresol green (BCG) dye binding methoOrdered By: Gaurav Scott on 03-31-2023 Albumin BCG dye [Mass/Vol] 4.4 g/dL 3.5-5.7 [facility] Alkaline phosphatase [Enzyma tic activity/volume] in Serum or PlasmaOrdered By: Gaurav Scott on 03-31-2023 ALP [Catalytic activity/Vol] 56 U/L 34-104 [facility] Aspartate aminotransferase [ Enzymatic activity/volume] in Serum or PlasmaOrdered By: Gaurav Scott on 03-31-2023 AST [Catalytic activity/Vol] 12 U/L 13-39 [facility] Basophils Auto (Bld) [#/Vol] Ordered By: Gaurav Scott on 03-31-2023 Basophils (Bld) [#/Vol] 0.0 10*3/uL 0.0-0.2 [facility] Basophils/100 WBC Auto (Bld) Ordered By: Gaurav Scott on 03-31-2023 Basophils/100 WBC (Bld) 0.3 % . [facility] Bilirubin.total [Mass/volume ] in Serum or PlasmaOrdered By: Gaurav Scott on 03-31-2023 Bilirubin [Mass/Vol] 0.7 mg/dL 0.3-1.0 [facility] Calcium [Mass/volume] in Ser um or PlasmaOrdered By: Gaurav Scott on 03-31-2023 Calcium [Mass/Vol] 8.8 mg/dL 8.6-10.3 [facility] Carbon dioxide, total [Moles /volume] in Serum or PlasmaOrdered By: Gaurav Scott on 03-31-2023 CO2 [Moles/Vol] 26.7 mmol/L 21.0-31.0 [facility] Chloride [Moles/volume] in S lilli or PlasmaOrdered By: Gaurav Scott on 03-31-2023 Chloride [Moles/Vol] 106 mmol/L 98-107 [facility] Creatinine [Mass/volume] in Serum or PlasmaOrdered By: Gaurav Scott on 03-31-2023 Creatinine [Mass/Vol] 1.24 mg/dL 0.70-1.30 [facility] Eosinophils Auto (Bld) [#/Vo l]Ordered By: Gaurav Scott on 03-31-2023 Eosinophils (Bld) [#/Vol] 0.1 10*3/uL 0.0-0.45 [facility] Eosinophils/100 WBC Auto (Bl d)Ordered By: Gaurav Scott on 03-31-2023 Eosinophils/100 WBC (Bld) 1.0 % . [facility] Erythrocyte distribution wid th Auto (RBC) [Ratio]Ordered By: Gaurav Scott on 03-31-2023 Erythrocyte distribution width (RBC) [Ratio] 16.1 % 12.0-14.8 [facility] Globulin Calc (S) [Mass/Vol] Ordered By: Gaurav Scott on 03-31-2023 Globulin (S) [Mass/Vol] 2.1 g/dL [facility] Glucose [Mass/volume] in Ser um or PlasmaOrdered By: Gaurav Scott on 03-31-2023 Glucose [Mass/Vol] 105 mg/dL 70-100 [facility] Comment on above: ADA recommended refe rence range Glucose mean value [Mass/vol ume] in Blood Estimated from glycated hemoglobinOrdered By: Gaurav Scott on 03-31-2023 Average glucose Estimated from glycated hemoglobin (Bld) [Mass/Vol] 151 mg/dL [facility] Hematocrit Auto (Bld) [Volum e fraction]Ordered By: Gaurav Scott on 03-31-2023 Hematocrit (Bld) [Volume fraction] 41.1 % 38.8-50.0 [facility] Hemoglobin [Mass/volume] in BloodOrdered By: Gaurav Scott on 03-31-2023 Hemoglobin (Bld) [Mass/Vol] 13.8 g/dL 13.0-17.0 [facility] Laboratory - Hematology and Cell countsOrdered By: Gaurav Scott on 03-31-2023 HbA1c (Bld) [Mass fraction] 6.9 % 4.3-5.6 [facility] Comment on above: Increased risk for d iabetes: 5.7 - 6.4diabetes: >6.4glycemic control for adults with diabetes: <7.0 Leukocytes [#/volume] correc tremaine for nucleated erythrocytes in Blood by Automated counOrdered By: Gaurav Scott on 03-31-2023 WBC corrected for nucl RBC Auto (Bld) [#/Vol] 9.6 10*3/uL 4.1-10.5 [facility] Lymphocytes Auto (Bld) [#/Vo l]Ordered By: Gaurav Scott on 03-31-2023 Lymphocytes (Bld) [#/Vol] 2.1 10*3/uL 1.00-4.8 [facility] Lymphocytes/100 WBC Auto (Bl d)Ordered By: Gaurav Scott on 03-31-2023 Lymphocytes/100 WBC (Bld) 21.5 % . [facility] MCH Auto (RBC) [Entitic mass ]Ordered By: Gaurav Scott on 03-31-2023 MCH (RBC) [Entitic mass] 26.3 pg 27.5-35.2 [facility] MCHC Auto (RBC) [Mass/Vol]Or dered By: Gaurav Scott on 03-31-2023 MCHC (RBC) [Mass/Vol] 33.6 g/dL 32.5-35.6 [facility] MCV Auto (RBC) [Entitic vol] Ordered By: aGurav Scott on 03-31-2023 MCV (RBC) [Entitic vol] 78.2 fL 83.5-101 [facility] Monocytes Auto (Bld) [#/Vol] Ordered By: Gaurav Scott on 03-31-2023 Monocytes (Bld) [#/Vol] 0.7 10*3/uL 0.0-0.8 [facility] Monocytes/100 WBC Auto (Bld) Ordered By: Gaurav Scott on 03-31-2023 Monocytes/100 WBC (Bld) 7.2 % . [facility] Neutrophils Auto (Bld) [#/Vo l]Ordered By: Gaurav Scott on 03-31-2023 Neutrophils (Bld) [#/Vol] 6.7 10*3/uL 1.8-7.7 [facility] Neutrophils/100 WBC Auto (Bl d)Ordered By: Gaurav Scott on 03-31-2023 Neutrophils/100 WBC (Bld) 70.0 % . [facility] No Panel InformationOrdered By: Gaurav Scott on 03-31-2023 Estimated GFR (CKD-EPI) > 60.0 mL/Min [facility] Creatinine Clearance (Chem N/A [facility] Nucleated erythrocytes [Pres ence] in Blood by Automated countOrdered By: Gaurav Scott on 03-31-2023 Nucleated RBC Auto Ql (Bld) 0.1 /100{WBC} 0-0.5 [facility] Platelet mean volume Auto (B ld) [Entitic vol]Ordered By: Gaurav Scott on 03-31-2023 Platelet mean volume (Bld) [Entitic vol] 7.0 fL 6.6-10.1 [facility] Platelets Auto (Bld) [#/Vol] Ordered By: Gaurav Scott on 03-31-2023 Platelets (Bld) [#/Vol] 195 10*3/uL 150-450 [facility] Potassium [Moles/volume] in Serum or PlasmaOrdered By: Gaurav Scott on 03-31-2023 Potassium [Moles/Vol] 4.2 mmol/L 3.5-5.1 [facility] Prostate specific Ag [Mass/v olume] in Serum or PlasmaOrdered By: Patito Sweet on 03-31-2023 Prostate specific Ag [Mass/Vol] 0.650 ng/mL 0.000-4.00 0 [facility] Protein [Mass/volume] in Ser um or PlasmaOrdered By: Gaurav Scott on 03-31-2023 Protein [Mass/Vol] 6.5 g/dL 6.4-8.9 [facility] RBC Auto (Bld) [#/Vol]Ordere d By: Gaurav Scott on 03-31-2023 RBC (Bld) [#/Vol] 5.25 10*6/uL 3.90-5.60 [facility] Serum or plasma albumin/glob ulin mass ratioOrdered By: Gaurav Scott on 03-31-2023 Albumin/Globulin [Mass ratio] 2.1 {ratio} [facility] Serum or plasma anion gap de terminationOrdered By: Gaurav Scott on 03-31-2023 Anion gap [Moles/Vol] 11.5 mmol/L 6.0-15.0 [facility] Sodium [Moles/volume] in Ser um or PlasmaOrdered By: Gaurav Scott on 03-31-2023 Sodium [Moles/Vol] 140 mmol/L 136-145 [facility] Urate [Mass/volume] in Serum or PlasmaOrdered By: Patito Sweet on 03-31-2023 Urate [Mass/Vol] 7.9 mg/dL 4.4-7.6 [facility] Urea nitrogen [Mass/volume] in Serum or PlasmaOrdered By: Gaurav Scott on 03-31-2023 Urea nitrogen [Mass/Vol] 17 mg/dL 7-25 [facility] WBC Auto (Bld) [#/Vol]Ordere d By: Gaurav Scott on 03-31-2023 WBC (Bld) [#/Vol] 9.6 10*3/uL 4.1-10.5 [facility] Alanine aminotransferase [En zymatic activity/volume] in Serum or PlasmaOrdered By: Gaurav Scott on 02-28-2023 ALT [Catalytic activity/Vol] 11 U/L 7-52 [facility] Albumin [Mass/volume] in Ser um or Plasma by Bromocresol green (BCG) dye binding methoOrdered By: Gaurav Scott on 02-28-2023 Albumin BCG dye [Mass/Vol] 4.1 g/dL 3.5-5.7 [facility] Alkaline phosphatase [Enzyma tic activity/volume] in Serum or PlasmaOrdered By: Gaurav Scott on 02-28-2023 ALP [Catalytic activity/Vol] 55 U/L 34-104 [facility] Aspartate aminotransferase [ Enzymatic activity/volume] in Serum or PlasmaOrdered By: Gaurav Scott on 02-28-2023 AST [Catalytic activity/Vol] 8 U/L 13-39 [facility] Basophils Auto (Bld) [#/Vol] Ordered By: Gaurav Scott on 02-28-2023 Basophils (Bld) [#/Vol] 0.0 10*3/uL 0.0-0.2 [facility] Basophils/100 WBC Auto (Bld) Ordered By: Gaurav Scott on 02-28-2023 Basophils/100 WBC (Bld) 0.6 % . [facility] Bilirubin.total [Mass/volume ] in Serum or PlasmaOrdered By: Gaurav Scott on 02-28-2023 Bilirubin [Mass/Vol] 0.3 mg/dL 0.3-1.0 [facility] Calcium [Mass/volume] in Ser um or PlasmaOrdered By: Gaurav Scott on 02-28-2023 Calcium [Mass/Vol] 8.5 mg/dL 8.6-10.3 [facility] Carbon dioxide, total [Moles /volume] in Serum or PlasmaOrdered By: Gaurav Scott on 02-28-2023 CO2 [Moles/Vol] 25.3 mmol/L 21.0-31.0 [facility] Chloride [Moles/volume] in S lilli or PlasmaOrdered By: Gaurav Scott on 02-28-2023 Chloride [Moles/Vol] 109 mmol/L 98-107 [facility] Creatinine [Mass/volume] in Serum or PlasmaOrdered By: Gaurav Scott on 02-28-2023 Creatinine [Mass/Vol] 1.24 mg/dL 0.70-1.30 [facility] Eosinophils Auto (Bld) [#/Vo l]Ordered By: Gaurav Scott on 02-28-2023 Eosinophils (Bld) [#/Vol] 0.1 10*3/uL 0.0-0.45 [facility] Eosinophils/100 WBC Auto (Bl d)Ordered By: Gaurav Scott on 02-28-2023 Eosinophils/100 WBC (Bld) 1.0 % . [facility] Erythrocyte distribution wid th Auto (RBC) [Ratio]Ordered By: Gaurav Scott on 02-28-2023 Erythrocyte distribution width (RBC) [Ratio] 16.8 % 12.0-14.8 [facility] Globulin Calc (S) [Mass/Vol] Ordered By: Gaurav Scott on 02-28-2023 Globulin (S) [Mass/Vol] 2.4 g/dL [facility] Glucose [Mass/volume] in Ser um or PlasmaOrdered By: Gaurav Scott on 02-28-2023 Glucose [Mass/Vol] 131 mg/dL 70-100 [facility] Comment on above: ADA recommended refe rence range Glucose mean value [Mass/vol ume] in Blood Estimated from glycated hemoglobinOrdered By: Gaurav Scott on 02-28-2023 Average glucose Estimated from glycated hemoglobin (Bld) [Mass/Vol] 143 mg/dL [facility] Hematocrit Auto (Bld) [Volum e fraction]Ordered By: Gaurav Scott on 02-28-2023 Hematocrit (Bld) [Volume fraction] 41.1 % 38.8-50.0 [facility] Hemoglobin [Mass/volume] in BloodOrdered By: Gaurav Scott on 02-28-2023 Hemoglobin (Bld) [Mass/Vol] 13.3 g/dL 13.0-17.0 [facility] Laboratory - Hematology and Cell countsOrdered By: Gaurav Scott on 02-28-2023 HbA1c (Bld) [Mass fraction] 6.6 % 4.3-5.6 [facility] Comment on above: Increased risk for d iabetes: 5.7 - 6.4diabetes: >6.4glycemic control for adults with diabetes: <7.0 Leukocytes [#/volume] correc tremaine for nucleated erythrocytes in Blood by Automated counOrdered By: Gaurav Scott on 02-28-2023 WBC corrected for nucl RBC Auto (Bld) [#/Vol] 8.4 10*3/uL 4.1-10.5 [facility] Lymphocytes Auto (Bld) [#/Vo l]Ordered By: Gaurav Scott on 02-28-2023 Lymphocytes (Bld) [#/Vol] 2.3 10*3/uL 1.00-4.8 [facility] Lymphocytes/100 WBC Auto (Bl d)Ordered By: Gaurav Scott on 02-28-2023 Lymphocytes/100 WBC (Bld) 27.0 % . [facility] MCH Auto (RBC) [Entitic mass ]Ordered By: Gaurav Scott on 02-28-2023 MCH (RBC) [Entitic mass] 24.8 pg 27.5-35.2 [facility] MCHC Auto (RBC) [Mass/Vol]Or dered By: Gaurav Scott on 02-28-2023 MCHC (RBC) [Mass/Vol] 32.4 g/dL 32.5-35.6 [facility] MCV Auto (RBC) [Entitic vol] Ordered By: Gaurav Scott on 02-28-2023 MCV (RBC) [Entitic vol] 76.7 fL 83.5-101 [facility] Monocytes Auto (Bld) [#/Vol] Ordered By: Gaurav Scott on 02-28-2023 Monocytes (Bld) [#/Vol] 0.9 10*3/uL 0.0-0.8 [facility] Monocytes/100 WBC Auto (Bld) Ordered By: Gaurav Scott on 02-28-2023 Monocytes/100 WBC (Bld) 10.1 % . [facility] Neutrophils Auto (Bld) [#/Vo l]Ordered By: Gaurav Scott on 02-28-2023 Neutrophils (Bld) [#/Vol] 5.2 10*3/uL 1.8-7.7 [facility] Neutrophils/100 WBC Auto (Bl d)Ordered By: Gaurav Scott on 02-28-2023 Neutrophils/100 WBC (Bld) 61.3 % . [facility] No Panel InformationOrdered By: Gaurav Scott on 02-28-2023 Estimated GFR (CKD-EPI) > 60.0 mL/Min [facility] Creatinine Clearance (Chem N/A [facility] Nucleated erythrocytes [Pres ence] in Blood by Automated countOrdered By: Gaurav Scott on 02-28-2023 Nucleated RBC Auto Ql (Bld) 0.1 /100{WBC} 0-0.5 [facility] Platelet mean volume Auto (B ld) [Entitic vol]Ordered By: Gaurav Scott on 02-28-2023 Platelet mean volume (Bld) [Entitic vol] 7.2 fL 6.6-10.1 [facility] Platelets Auto (Bld) [#/Vol] Ordered By: Gaurav Scott on 02-28-2023 Platelets (Bld) [#/Vol] 239 10*3/uL 150-450 [facility] Potassium [Moles/volume] in Serum or PlasmaOrdered By: Gaurav Scott on 02-28-2023 Potassium [Moles/Vol] 3.9 mmol/L 3.5-5.1 [facility] Protein [Mass/volume] in Ser um or PlasmaOrdered By: Gaurav Scott on 02-28-2023 Protein [Mass/Vol] 6.5 g/dL 6.4-8.9 [facility] RBC Auto (Bld) [#/Vol]Ordere d By: Gaurav Scott on 02-28-2023 RBC (Bld) [#/Vol] 5.36 10*6/uL 3.90-5.60 [facility] Serum or plasma albumin/glob ulin mass ratioOrdered By: Gaurav Scott on 02-28-2023 Albumin/Globulin [Mass ratio] 1.7 {ratio} [facility] Serum or plasma anion gap de terminationOrdered By: Gaurav Scott on 02-28-2023 Anion gap [Moles/Vol] 9.6 mmol/L 6.0-15.0 [facility] Sodium [Moles/volume] in Ser um or PlasmaOrdered By: Gaurav Scott on 02-28-2023 Sodium [Moles/Vol] 140 mmol/L 136-145 [facility] Urea nitrogen [Mass/volume] in Serum or PlasmaOrdered By: Gaurav Scott on 02-28-2023 Urea nitrogen [Mass/Vol] 12 mg/dL 7-25 [facility] WBC Auto (Bld) [#/Vol]Ordere d By: Gaurav Scott on 02-28-2023 WBC (Bld) [#/Vol] 8.4 10*3/uL 4.1-10.5 [facility] CALCULI, URINARYon 3 2,8 Dihydroxyadenine Normal [facility] Comment on above: Performed By: #### C ALCULI #### [facility] [address] [address] [address] Peter Kyle Ammonium Acid Urate Normal [facility] Comment on above: Performed By: #### C ALCULI #### [facility] [address] [address] [address] Peter Kyle Bilirubin Ql (U) [facility] Comment on above: Performed By: #### C ALCULI #### [facility] [address] [address] [address] Peter Kyle Ca Oxalate Dihydrate 30 % [facility] Comment on above: Performed By: #### C ALCULI #### [facility] [address] [address] [address] Peter Kyle CaHPO4 (Brushite) [facility] Comment on above: Performed By: #### C ALCULI #### [facility] [address] [address] [address] Peter Kyle Calcium Bilirubinate [facility] Comment on above: Performed By: #### C ALCULI #### [facility] [address] [address] [address] Peter Kyle Calcium Carbonate [facility] Comment on above: Performed By: #### C ALCULI #### [facility] [address] [address] [address] Peter Kyle Calcium Oxalate Monohydrate 70 % [facility] Comment on above: Performed By: #### C ALCULI #### [facility] [address] [address] [address] Peter Kyle Calcium Palmitate [facility] Comment on above: Performed By: #### C ALCULI #### [facility] [address] [address] [address] Peter Kyle Calcium Phosphate [facility] Comment on above: Performed By: #### C ALCULI #### [facility] [address] [address] [address] Peter Kyle Calcium Stearate Normal [facility] Comment on above: Performed By: #### C ALCULI #### [facility] [address] [address] [address] Peter Kyle Carbonate Apatite Normal [facility] Comment on above: Performed By: #### C ALCULI #### [facility] [address] [address] [address] Peter Kyle Cellular Material Normal [facility] Comment on above: Performed By: #### C ALCULI #### [facility] [address] [address] [address] Peter Kyle Cholesterol [facility] Comment on above: Performed By: #### C ALCULI #### [facility] [address] [place] [address] Dr. Peter Kyle Color (U) Brown Normal [facility] Comment on above: Performed By: #### C ALCULI #### [facility] [address] [address] [address] Peter Kyle Comment [facility] Comment on above: Performed By: #### C ALCULI #### [facility] [address] [address] [address] Peter Kyle Comment Comment Normal [facility] Comment on above: Result Comment: Calc ulus received wet. Wet calculi must be dried before analysis, which delays reporting of results. Leaving calculi wet (such as water, saline, blood, urine) may lead to changes in composition. Performed By: #### C ALCULI #### [facility] [address] [address] [address] Peter Kyle Comment: Comment Normal [facility] Comment on above: Result Comment: Phys dylan questions regarding Calculi Analysis contact [facility] at: [phone]. Performed By: #### C ALCULI #### [facility] [address] [address] [address] Peter Kyle Composition Comment [facility] Comment on above: Result Comment: Perc entage (Represents the % composition) Performed By: #### C ALCULI #### [facility] [address] [address] [address] Peter Kyle Cystine Normal [facility] Comment on above: Performed By: #### C ALCULI #### [facility] [address] [address] [address] Peter Kyle Disclaimer: Comment Normal [facility] Comment on above: Result Comment: This test was developed and its performance characteristics determined by [facility]. It has not been cleared or approved by the Food and Drug Administration. Performed By: #### C ALCULI #### [facility] [address] [address] [address] Peter Kyle Dried Blood [facility] Comment on above: Performed By: #### C ALCULI #### [facility] [address] [place] [address] Dr. Peter Kyle Drug or Metabolite Normal [facility] Comment on above: Performed By: #### C ALCULI #### [facility] [address] [place] [address] Dr. Peter Kyle Hydroxyapatite [facility] Comment on above: Performed By: #### C ALCULI #### [facility] [address] [place] [address] Dr. Peter Kyle Mg NH4 PO4 (Struvite) [facility] Comment on above: Performed By: #### C ALCULI #### [facility] [address] [place] [address] Dr. Peter Kyle MgHPO4 (Newberyite) Normal [facility] Comment on above: Performed By: #### C ALCULI #### [facility] [address] [place] [address] Dr. Peter Kyle Other component(s) Normal [facility] Comment on above: Performed By: #### C ALCULI #### [facility] [address] [place] [address] Dr. Peter Kyle PDF . Normal [facility] Comment on above: Performed By: #### C ALCULI #### [facility] [address] [place] [address] Dr. Peter Kyle Photo Comment [facility] Comment on above: Result Comment: Phot ograph will follow under a separate cover Performed By: #### C ALCULI #### [facility] [address] [address] [address] Peter Kyle Please note: Comment Normal [facility] Comment on above: Result Comment: Calc melita report will follow via computer, mail or grease maker head delivery. Performed By: #### C ALCULI #### [facility] [address] [address] [address] Peter Kyle Size 3x5 [facility] Comment on above: Result Comment: Mult iple pieces received. Dimensions of the largest piece reported. Performed By: #### C ALCULI #### [facility] [address] [address] [address] Peter Kyle Sodium Acid Urate Normal [facility] Comment on above: Performed By: #### C ALCULI #### [facility] [address] [address] [address] Peter Kyle Source Comment [facility] Comment on above: Result Comment: Left Kidney Performed By: #### C ALCULI #### [facility] [address] [address] [address] Peter Kyle Triamterene [facility] Comment on above: Performed By: #### C ALCULI #### [facility] [address] [address] [address] Peter Kyle Uric Acid [facility] Comment on above: Performed By: #### C ALCULI #### [facility] [address] [address] [address] Peter Kyle Uric Acid Dihydrate Normal [facility] Comment on above: Performed By: #### C ALCULI #### [facility] [address] [address] [address] Peter Kyle Weight 61 mg [facility] Comment on above: Performed By: #### C ALCULI #### [facility] [address] [address] [address] Peter Kyle Xanthine [facility] Comment on above: Performed By: #### C ALCULI #### [facility] [address] [address] [address] Peter Kyle CALCULI, URINARYon 3 2,8 Dihydroxyadenine Normal [facility] Comment on above: Performed By: #### C BC #### [facility] [address] [address] [address] Peter Kyle Ammonium Acid Urate Normal [facility] Comment on above: Performed By: #### C BC #### [facility] [address] [address] [address] Peter Kyle Bilirubin Ql (U) [facility] Comment on above: Performed By: #### C BC #### [facility] [facility] [address] [address] [address] Peter Kyle Ca Oxalate Dihydrate 20 % [facility] Comment on above: Performed By: #### C BC #### [facility] [address] [address] [address] Peter Kyle CaHPO4 (Brushite) [facility] Comment on above: Performed By: #### C BC #### [facility] [address] [address] [address] Peter Kyle Calcium Bilirubinate [facility] Comment on above: Performed By: #### C BC #### [facility] [address] [place] [address] Dr. Peter Kyle Calcium Carbonate Normal [facility] Comment on above: Performed By: #### C BC #### [facility] [address] [address] [address] Peter Kyle Calcium Oxalate Monohydrate 80 % [facility] Comment on above: Performed By: #### C BC #### [facility] [address] [address] [address] Peter Kyle Calcium Palmitate [facility] Comment on above: Performed By: #### C BC #### [facility] [address] [place] [address] Dr. Peter Kyle Calcium Phosphate Normal [facility] Comment on above: Performed By: #### C BC #### [facility] [address] [address] [address] Peter Kyle Calcium Stearate Normal [facility] Comment on above: Performed By: #### C BC #### [facility] [address] [address] [address] Peter Kyle Carbonate Apatite Normal [facility] Comment on above: Performed By: #### C BC #### [facility] [address] [address] [address] Peter Kyle Cellular Material Normal [facility] Comment on above: Performed By: #### C BC #### [facility] [address] [address] [address] Peter Kyle Cholesterol [facility] Comment on above: Performed By: #### C BC #### [facility] [address] [place] [address] Dr. Peter Kyle Color (U) Brown Normal [facility] Comment on above: Performed By: #### C BC #### [facility] [address] [address] [address] Peter Kyle Comment [facility] Comment on above: Performed By: #### C BC #### [facility] [address] [address] [address] Peter Kyle Comment: Comment Normal [facility] Comment on above: Result Comment: Tone richardson questions regarding Calculi Analysis contact [facility] at: [phone]. Performed By: #### C BC #### [facility] [address] [address] [address] Peter Kyle Composition Comment [facility] Comment on above: Result Comment: Perc entage (Represents the % composition) Performed By: #### C BC #### [facility] [address] [place] [address] Dr. Peter Kyle Cystine [facility] Comment on above: Performed By: #### C BC #### [facility] [address] [place] [address] Dr. Peter Kyle Disclaimer: Comment Normal [facility] Comment on above: Result Comment: This test was developed and its performance characteristics determined by [employer]. It has not been cleared or approved by the Food and Drug Administration. Performed By: #### C BC #### [facility] [address] [place] [address] Dr. Peter Kyle Dried Blood [facility] Comment on above: Performed By: #### C BC #### [facility] [address] [place] [address] Dr. Peter Kyle Drug or Metabolite Normal [facility] Comment on above: Performed By: #### C BC #### [facility] [address] [place] [address] Dr. Peter Kyle Hydroxyapatite [facility] Comment on above: Performed By: #### C BC #### [facility] [address] [place] [address] Dr. Peter Kyle Mg NH4 PO4 (Struvite) [facility] Comment on above: Performed By: #### C BC #### [facility] [address] [place] [address] Dr. Peter Kyle MgHPO4 (Newberyite) Normal [facility] Comment on above: Performed By: #### C BC #### [facility] [address] [place] [address] Dr. Peter Kyle Other component(s) Normal [facility] Comment on above: Performed By: #### C BC #### [facility] [address] [place] [address] Dr. Peter Kyle PDF . Normal [facility] Comment on above: Performed By: #### C BC #### [facility] [address] [place] [address] Dr. Peter Kyle Photo Comment [facility] Comment on above: Result Comment: Phot ograph will follow under a separate cover Performed By: #### C BC #### [facility] [address] [place] [address] Dr. Peter Kyle Please note: Comment [facility] Comment on above: Result Comment: Calc melita report will follow via computer, mail or grease maker head delivery. Performed By: #### C BC #### [facility] [address] [address] [address] Peter Kyle Size 5x7 Normal [facility] Comment on above: Result Comment: Mult iple pieces received. Dimensions of the largest piece reported. Performed By: #### C BC #### [facility] [address] [address] [address] Peter Kyle Sodium Acid Urate Normal [facility] Comment on above: Performed By: #### C BC #### [facility] [address] [address] [address] Peter Kyle Source Comment [facility] Comment on above: Result Comment: Not provided Performed By: #### C BC #### [facility] [address] [place] [address] Dr. Peter Kyle Triamterene [facility] Comment on above: Performed By: #### C BC #### [facility] [address] [place] [address] Dr. Peter Kyle Uric Acid [facility] Comment on above: Performed By: #### C BC #### [facility] [address] [address] [address] Peter Kyle Uric Acid Dihydrate Normal [facility] Comment on above: Performed By: #### C BC #### [facility] [address] [place] [address] Dr. Peter Kyle Weight 138 mg [facility] Comment on above: Performed By: #### C BC #### [facility] [address] [address] [address] Peter Kyle Xanthine [facility] Comment on above: Performed By: #### C BC #### [facility] [address] [address] [address] Peter Kyle CBC AUTO DIFFon 12-30-2022 BASO # 0.1 103/ul Normal 0.0-0.1 [facility] Comment on above: Performed By: #### C BC #### [facility] [address] [place] [address] Dr. Peter Kyle Basophils/100 WBC (Bld) 0.8 % Normal 0.2-2.0 [facility] Comment on above: Performed By: #### C BC #### [facility] [address] [place] [address] Dr. Peter Kyle EO # 0.4 103/ul Normal 0.0-0.7 [facility] Comment on above: Performed By: #### C BC #### [facility] [address] [place] [address] Dr. Peter Kyle Eosinophils/100 WBC (Bld) 4.6 % Normal 0.9-7.0 [facility] Comment on above: Performed By: #### C BC #### [facility] [address] [place] [address] Dr. Peter Kyle Erythrocyte distribution width (RBC) [Ratio] 16.1 % Critically high 11.0-15.0 [facility] Comment on above: Performed By: #### C BC #### [facility] [address] [place] [address] Dr. Peter yKle Hematocrit (Bld) [Volume fraction] 42.6 % Normal 42.0-54.0 [facility] Comment on above: Performed By: #### C BC #### [facility] [address] [place] [address] Dr. Peter Kyle Hemoglobin (Bld) [Mass/Vol] 13.9 g/dL Critically low 14.0-18.0 [facility] Comment on above: Performed By: #### C BC #### [facility] [address] [place] [address] Dr. Peter Kyle IG # 0.09 10e3/ul Critically high 0.00-0.03 [facility] Comment on above: Performed By: #### C BC #### [facility] [address] [place] [address] Dr. Peter Kyle IG % 1.2 % Critically high 0.0-0.5 [facility] Comment on above: Performed By: #### C BC #### [facility] [address] [place] [address] Dr. Peter Kyle LYMPH # 2.2 103/ul Normal 1.2-3.8 [facility] Comment on above: Performed By: #### C BC #### [facility] [address] [place] [address] Dr. Peter Kyle Lymphocytes/100 WBC (Bld) 27.5 % Normal 20.5-60.0 [facility] Comment on above: Performed By: #### C BC #### [facility] [address] [place] [address] Dr. Peter Kyle MANUAL DIFF REQ NO Normal [facility] Comment on above: Performed By: #### C BC #### [facility] [address] [place] [address] Dr. Peter Kyle MCH (RBC) [Entitic mass] 24.2 pg Critically low 25.9-34.0 [facility] Comment on above: Performed By: #### C BC #### [facility] [address] [place] [address] Dr. Peter Kyle MCHC (RBC) [Mass/Vol] 32.6 g/dL Normal 29.9-35.2 [facility] Comment on above: Performed By: #### C BC #### [facility] [address] [place] [address] Dr. Peter Kyle MCV (RBC) [Entitic vol] 74.1 fL Critically low 80.0-94.0 [facility] Comment on above: Performed By: #### C BC #### [facility] [address] [place] [address] Dr. Peter Kyle MONO # 0.8 103/ul Normal 0.3-0.8 [facility] Comment on above: Performed By: #### C BC #### [facility] [address] [place] [address] Dr. Peter Kyle Monocytes/100 WBC (Bld) 10.5 % Normal 1.7-12.0 [facility] Comment on above: Performed By: #### C BC #### [facility] [address] [place] [address] Dr. Peter Kyle NEUT # 4.3 103/ul Normal 1.4-6.5 [facility] Comment on above: Performed By: #### C BC #### [facility] [address] [address] [address] Peter Kyle Neutrophils/100 WBC (Bld) 55.4 % Normal 43.0-75.0 [facility] Comment on above: Performed By: #### C BC #### [facility] [address] [address] [address] Peter Kyle Platelet mean volume (Bld) [Entitic vol] 8.6 fL Critically low 9.5-13.5 [facility] Comment on above: Performed By: #### C BC #### [facility] [address] [place] [address] Dr. Peter Kyle PLT 214 103/ul Normal 150-450 [facility] Comment on above: Performed By: #### C BC #### [facility] [address] [place] [address] Dr. Peter Kyle RBC 5.75 106/ul Normal 4.70-6.10 [facility] Comment on above: Performed By: #### C BC #### [facility] [address] [address] [address] Peter Kyle WBC 7.8 103/ul Normal 4.0-11.0 [facility] Comment on above: Performed By: #### C BC #### [facility] [address] [place] [address] Dr. Peter Kyle PROF CHEM 8 (BAS METB)on Anion gap [Moles/Vol] 14.2 mmol/L Normal [facility] Comment on above: Performed By: #### B MP #### [facility] [address] [place] [address] Dr. Peter Kyle Calcium [Mass/Vol] 8.9 mg/dL Normal 8.5-10.1 [facility] Comment on above: Performed By: #### B MP #### [facility] [address] [place] [address] Dr. Peter Kyle Chloride [Moles/Vol] 106 mmol/L Normal 98-107 [facility] Comment on above: Performed By: #### B MP #### [facility] [address] [address] [address] Peter Kyle CO2 [Moles/Vol] 26.9 mmol/L Normal 21.0-32.0 [facility] Comment on above: Performed By: #### B MP #### [facility] [address] [address] [address] Peter Kyle Creatinine [Mass/Vol] 1.03 mg/dL Normal 0.70-1.30 [facility] Comment on above: Performed By: #### B MP #### [facility] [address] [address] [address] Peter Kyle EGFR-AF SINGAPOREAN >60 Normal >=60 [facility] Comment on above: Performed By: #### B MP #### [facility] [address] [address] [address] Peter Kyle EGFR-NON AF SINGAPOREAN >60 Normal >=60 [facility] Comment on above: Performed By: #### B MP #### [facility] [address] [address] [address] Peter Kyle Glucose [Mass/Vol] 111 mg/dL Critically high 74-106 [facility] Comment on above: Performed By: #### B MP #### [facility] [address] [address] [address] Peter Kyle Potassium [Moles/Vol] 4.1 mmol/L Normal 3.5-5.1 [facility] Comment on above: Performed By: #### B MP #### [facility] [address] [address] [address] Peter Kyle Sodium [Moles/Vol] 143 mmol/L Normal 136-145 [facility] Comment on above: Performed By: #### B MP #### [facility] [address] [address] [address] Peter Kyle Urea nitrogen [Mass/Vol] 8.0 mg/dL Normal 7.0-18.0 [facility] Comment on above: Performed By: #### B MP #### [facility] [address] [place] [address] Dr. Peter Kyle Urea nitrogen/Creatinine [Mass ratio] 7.8 mg/mg Normal [facility] Comment on above: Performed By: #### B MP #### [facility] [address] [place] [address] Dr. Peter Kyle PROTIMEon 12-30-2022 INR Coag (PPP) [Relative time] 1.01 {INR} Normal [facility] Comment on above: Performed By: #### P TT, PT #### [facility] [address] [place] [address] Dr. Peter Kyle INR GUIDELINES SEE BELOW Normal [facility] Comment on above: Result Comment: ALE RED INR: 2.0 - 3.0 CONDITIONS NOT LISTED BELOW 2.5 - 3.5 FOR PROSTHETIC HEART VALVE REPLACEMENT 2.5 - 3.5 RECURRENT THROMBOSIS Performed By: #### P TT, PT #### [facility] [address] [place] [address] Dr. Peter Kyle PT Coag (PPP) [Time] 10.7 s Normal 9.0-11.6 [facility] Comment on above: Performed By: #### P TT, PT #### [facility] [address] [place] [address] Dr. Peter Kyle PTTon 12-30-2022 aPTT Coag (Bld) [Time] 29.2 s Normal 22.3-36.2 [facility] Comment on above: Performed By: #### P TT, PT #### [facility] [address] [place] [address] Dr. Peter Kyle US KIDNEYSon 12-14-2022 US KIDNEYS EXAMINATION: US KIDN EYS HISTORY: Contusion of kidney COMPARISON: No relevant comparison available. TECHNIQUE: Ultrasound examination was performed of the bladder. FINDINGS: Right Kidney: Normal in size, contour and cortical echotexture with no focal cortical mass or hydronephrosis. The cortex measures 1.5 cm. Multiple echogenic foci measuring up to 7 mm, nonobstructing nephroliths. Height: 6.2 cm Length: 11.3 cm Width: 4.9 cm Left Kidney: Normal in size, contour and cortical echotexture with no hydronephrosis. The cortex measures 1.4 cm. Multiple echogenic foci measuring up to 1.3 cm, nonobstructing nephroliths. Area of soft tissue echogenicity mid pole cortex measuring 6.4 x 4.3 x 3.9 cm Height: 7.4 cm Length: 11.4 cm Width: 6.0 cm The urinary bladder contains an echogenic focus likely calcification or passed stone. Volume 267 mL The prostate gland is lobular measuring 4.3 x 4.3 x 4.5 cm IMPRESSION: 6.4 cm soft tissue echogenicity midpole cortex, nonspecific Bilateral nonobstructing nephrolithiasis Electronically authenticated by: MYRA SHAFFER Date: 2022-12-14 17:38 Normal [facility] XR KUB 1 VIEWon 12-14-2022 XR KUB 1 VIEW EXAMINATION: XR KUB 1 VIEW HISTORY: Kidney stone COMPARISON: No relevant comparison available. FINDINGS: KIDNEY/URETER - RIGHT: No visible renal or ureteral calcifications. KIDNEY/URETER - LEFT: Left nephrolithiasis. Left ureteral stent PELVIS: No visible ureteral calcifications. Any visible calcifications favor phleboliths. BOWEL: No abnormal dilation or deviation. BONES: Moderate degenerative spondylosis OTHER: Negative. No abnormal gaseous collections. IMPRESSION: Decrease in left nephrolithiasis Left ureteral stent Electronically authenticated by: MYRA SHAFFER Date: 2022-12-14 18:10 Normal [facility] Ammonium urate crystals dete ction in stone by infrared spectroscopyOrdered By: Patito Sweet on 11-29-2022 Ammonium urate crystals Infrared spectroscopy Ql (Stone) N/A [facility] Calcium bilirubinate measure mentOrdered By: Patito Sweet on 11-29-2022 Calcium bilirubinate (Stone) [Mass fraction] N/A [facility] Calcium carbonate measuremen tOrdered By: Patito Sweet on 11-29-2022 Calcium carbonate (Stone) [Mass fraction] N/A [facility] Calcium hydrogen phosphate d ihydrate/Total in StoneOrdered By: Patito Sweet on 11-29-2022 Calcium hydrogen phosphate dihydrate (Stone) [Mass fraction] N/A [facility] Calcium oxalate dihydrate cr ystals detection in stone by infrared spectroscopyOrdered By: Patito Sweet on 11-29-2022 Calcium oxalate dihydrate crystals Infrared spectroscopy Ql (Stone) N/A [facility] Calcium oxalate monohydrate/ Total in StoneOrdered By: Patito Sweet on 11-29-2022 Calcium oxalate monohydrate (Stone) [Mass fraction] 100 % . [facility] Calcium phosphate measuremen tOrdered By: Patito Sweet on 11-29-2022 Calcium phosphate (Stone) [Mass fraction] N/A [facility] Calculus analysis interpreta tion in stoneOrdered By: Patito Sweet on 11-29-2022 Calculus analysis [Interp] N/A [facility] Calculus analysis [Interp] See comment . [facility] Comment on above: Calculus received we t. Wet calculi must be dried beforeanalysis, which delays reporting of results. Leaving calculiwet (such as water, saline, blood, urine) may lead tochanges in composition. Physician questions regarding Calculi Analysis [facility] at: [phone]. Calculi report will follow via computer, mail or courierdelivery. Calculus analysis with calcu alok photography interpretation in stoneOrdered By: Patito Sweet on 11-29-2022 Calculus analysis with calculus photography [Interp] See comment . [facility] Comment on above: Photograph will foll ow under a separate cover Cellular material measuremen t in stone by estimated (mass/mass)Ordered By: Patito Sweet on 11-29-2022 Cellular material Est (Stone) [Mass/Mass] N/A [facility] Cholesterol/Total in StoneOr dered By: Patito Sweet on 11-29-2022 Cholesterol (Stone) [Mass fraction] N/A [facility] Composition of stoneOrdered By: Patito Sweet on 11-29-2022 Composition Nom (Stone) See comment . [facility] Comment on above: Percentage (Represen ts the % composition) Creatinine and Glomerular fi ltration rate.predicted panel (S/P/Bld)Ordered By: Myra Lynne on 11-29-2022 Creatinine [Mass/Vol] 1.11 mg/dL 0.64-1.27 [facility] Cystine measurementOrdered B y: Patito Sweet on 11-29-2022 Cystine (Unsp spec) [Moles/Vol] N/A [facility] Determination of color of ca lculusOrdered By: Patito Sweet on 11-29-2022 Color (Stone) Brown . [facility] Estimated glomerular filtrat ion rate (GFR) non- AmericanOrdered By: Myra Lynne on 11-29-2022 GFR/1.73 sq M.predicted among non-blacks MDRD (S/P/Bld) [Vol rate/Area] > 60 mL/Min [facility] Hydroxyapatite [Energy Diffe rence] in 24 hour UrineOrdered By: Patito Sweet on 11-29-2022 Hydroxyapatite (24H U) [Energy diff] N/A [facility] Measurement of proportion of calculus composed of dried blood (mass/mass)Ordered By: Patito Sweet on 11-29-2022 Blood.dried (Stone) [Mass fraction] N/A [facility] Newberyite/Total in StoneOrd ered By: Patito Sweet on 11-29-2022 Newberyite (Stone) [Mass fraction] N/A [facility] No Panel InformationOrdered By: Myra Lynne on 11-29-2022 Estimated GFR () > 60 mL/Min [facility] Comment on above: GFR estimated refere nce range: According to KDOQI guidelines, <60 ml/min/1.73m2 is sufficient to diagnose a patient with chronic kidney disease. Pharmacy Creatinine Clearance (Chem 104.60 [facility] No Panel InformationOrdered By: Patito Sweet on 11-29-2022 Stone 2,8 Dihydroxyadenine N/A [facility] Stone Analysis Disclaimer See comment . [facility] Comment on above: This test was develo ped and its performance characteristicsdetermined by [employer]. It has not been cleared or approvedby the Food and Drug Administration.Performed at: [facility] Stone [id number] [place] [address] [address], [place], [place] [id number] Director: Francesco Martinez PhD, Phone: [phone] [place] Bilirubinate N/A [facility] Stone Calcium Palmitate N/A [facility] Stone Calcium Stearate N/A [facility] Stone Carbonate Apatite N/A [facility] Stone Drug or Metabolite N/A [facility] Stone Other Constituent N/A [facility] Stone Xanthine N/A [facility] Serum or plasma anion gap de terminationOrdered By: Myra Lynne on 11-29-2022 Anion gap [Moles/Vol] 12.4 mmol/L 6.0-15.0 [facility] Serum or plasma calcium dustin urement (mass/volume)Ordered By: Myra Lynne on 11-29-2022 Calcium [Mass/Vol] 8.9 mg/dL 8.2-10.2 [facility] Serum or plasma chloride justin surement (moles/volume)Ordered By: Myra Lynne on 11-29-2022 Chloride [Moles/Vol] 106 mmol/L 95-114 [facility] Serum or plasma glucose dustin urement (mass/volume)Ordered By: Myra Lynne on 11-29-2022 Glucose [Mass/Vol] 111 mg/dL 70-100 [facility] Comment on above: ADA recommended refe rence rangeRandom Glucose Reference Range is dependent on time and content of last meal. Glucose of more than 200 mg/dL in a nonstressed, ambulatory subject supports the diagnosis of Diabetes Mellitus. Serum or plasma potassium me asurement (moles/volume)Ordered By: Myra Lynne on 11-29-2022 Potassium [Moles/Vol] 3.8 mmol/L 3.5-5.1 [facility] Serum or plasma sodium measu rement (moles/volume)Ordered By: Myra Lynne on 11-29-2022 Sodium [Moles/Vol] 140 mmol/L 136-146 [facility] Serum or plasma total carbon dioxide measurement (moles/volume)Ordered By: Myra Lynne on 11-29-2022 CO2 [Moles/Vol] 25.4 mmol/L 22.0-30.0 [facility] Serum or plasma urea nitroge n measurement (mass/volume)Ordered By: Myra Lynne on 11-29-2022 Urea nitrogen [Mass/Vol] 8 mg/dL 9-23 [facility] Size [Entitic volume] of Sto neOrdered By: Patito Sweet on 11-29-2022 Size (Stone) [Entitic vol] 3x4 mm . [facility] Comment on above: Multiple pieces rece ived. Dimensions of the largest piecereported. Sodium urate crystals detect ion in stone by infrared spectroscopyOrdered By: Patito Sweet on 11-29-2022 Sodium urate crystals Infrared spectroscopy Ql (Stone) N/A [facility] Specimen source subject [Typ e]Ordered By: Patito Sweet on 11-29-2022 Specimen source subject Nom See comment . [facility] Comment on above: Left Kidney Triamterene measurement in c alculusOrdered By: Patito Sweet on 11-29-2022 Triamterene (Stone) [Mass fraction] N/A [facility] Triple phosphate/Total in St oneOrdered By: Patito Sweet on 11-29-2022 Triple phosphate (Stone) [Mass fraction] N/A [facility] Uric acid dihydrate crystals detection in stone by infrared spectroscopyOrdered By: Patito Sweet on 11-29-2022 Urate dihydrate crystals Infrared spectroscopy Ql (Stone) N/A [facility] Activated partial thrombopla stin time (aPTT) in platelet poor plasma by coagulation aOrdered By: Patito Sweet on 11-02-2022 aPTT Coag (PPP) [Time] 26.1 s 25.1-36.5 [facility] Aerobic cultureOrdered By: Esther Sweet on 11-02-2022 Bacteria identified Aer cx Nom (Unsp spec) No Growth 2 Days [facility] Bacteria identified Aer cx Nom (Unsp spec) No Growth 2 Days [facility] Anaerobic cultureOrdered By: Patito Sweet on 11-02-2022 Bacteria identified Anaer cx Nom (Unsp spec) No Anaerobes Isolated 3 Days [facility] Bacteria identified Anaer cx Nom (Unsp spec) No Anaerobes Isolated 3 Days [facility] Gram stain for investigation of transfusion reactionOrdered By: Patito Sweet on 11-02-2022 Microscopic observation Gram stain Nom (Unsp spec) [facility] Microscopic observation Gram stain Nom (Unsp spec) [facility] Laboratory - CoagulationOrde red By: Patito Sweet on 11-02-2022 PT Coag (PPP) [Time] 12.5 s 9.0-12.9 [facility] Platelet poor plasma interna tional normalized ratio (INR) by coagulation assay (relatOrdered By: Patito Sweet on 11-02-2022 INR Coag (PPP) [Relative time] 1.1 {INR} [facility] Comment on above: INR Therapeutic Rang e A) Pre- and Peroperative OAT started two weeks before surgery. NOT HIP SURGERY: 1.5 - 2.5 HIP SURGERY: 2 - 3B) Primary and secondary prevention of venous THROMBOSIS: 2 - 3C) Active venous thrombosis, pulmonary embolismand prevention of recurrent venous thrombosis: 2 - 3D) Prevention of arterial thromboembolismincluding patients with mechanical heart valves: 3 - 4.5 Platelets Auto (Bld) [#/Vol] Ordered By: Patito Sweet on 11-02-2022 Platelets (Bld) [#/Vol] 268 10*3/uL 150-450 [facility] CBC AUTO DIFFon 10-21-2022 BASO # 0.1 103/ul Normal 0.0-0.1 [facility] Comment on above: Performed By: #### C BC #### [facility] [address] [place] [address] Dr. Peter Kyle Basophils/100 WBC (Bld) 0.6 % Normal 0.2-2.0 [facility] Comment on above: Performed By: #### C BC #### [facility] [address] [address] [address] Peter Kyle EO # 0.2 103/ul Normal 0.0-0.7 [facility] Comment on above: Performed By: #### C BC #### [facility] [address] [place] [address] Dr. Peter Kyle Eosinophils/100 WBC (Bld) 2.0 % Normal 0.9-7.0 [facility] Comment on above: Performed By: #### C BC #### [facility] [address] [place] [address] Dr. Peter Kyle Erythrocyte distribution width (RBC) [Ratio] 15.9 % Critically high 11.0-15.0 [facility] Comment on above: Performed By: #### C BC #### [facility] [address] [place] [address] Dr. Peter Kyle Hematocrit (Bld) [Volume fraction] 37.0 % Critically low 42.0-54.0 [facility] Comment on above: Performed By: #### C BC #### [facility] [address] [place] [address] Dr. Peter Kyle Hemoglobin (Bld) [Mass/Vol] 11.9 g/dL Critically low 14.0-18.0 [facility] Comment on above: Performed By: #### C BC #### [facility] [address] [place] [address] Dr. Peter Kyle IG # 0.06 10e3/ul Critically high 0.00-0.03 [facility] Comment on above: Performed By: #### C BC #### [facility] [address] [place] [address] Dr. Peter Kyle IG % 0.6 % Critically high 0.0-0.5 [facility] Comment on above: Performed By: #### C BC #### [facility] [address] [place] [address] Dr. Peter Kyle LYMPH # 2.5 103/ul Normal 1.2-3.8 [facility] Comment on above: Performed By: #### C BC #### [facility] [address] [place] [address] Dr. Peter Kyle Lymphocytes/100 WBC (Bld) 25.7 % Normal 20.5-60.0 [facility] Comment on above: Performed By: #### C BC #### [facility] [address] [place] [address] Dr. Peter Kyle MANUAL DIFF REQ NO Normal [facility] Comment on above: Performed By: #### C BC #### [facility] [address] [place] [address] Dr. Peter Kyle MCH (RBC) [Entitic mass] 24.3 pg Critically low 25.9-34.0 [facility] Comment on above: Performed By: #### C BC #### [facility] [address] [address] [address] Peter Kyle MCHC (RBC) [Mass/Vol] 32.2 g/dL Normal 29.9-35.2 [facility] Comment on above: Performed By: #### C BC #### [facility] [address] [address] [address] Peter Kyle MCV (RBC) [Entitic vol] 75.5 fL Critically low 80.0-94.0 [facility] Comment on above: Performed By: #### C BC #### [facility] [address] [address] [address] Peter Kyle MONO # 0.9 103/ul Critically high 0.3-0.8 [facility] Comment on above: Performed By: #### C BC #### [facility] [address] [address] [address] Peter Kyle Monocytes/100 WBC (Bld) 9.2 % Normal 1.7-12.0 [facility] Comment on above: Performed By: #### C BC #### [facility] [address] [address] [address] Peter Kyle NEUT # 5.9 103/ul Normal 1.4-6.5 [facility] Comment on above: Performed By: #### C BC #### [facility] [address] [address] [address] Peter Kyle Neutrophils/100 WBC (Bld) 61.9 % Normal 43.0-75.0 [facility] Comment on above: Performed By: #### C BC #### [facility] [address] [address] [address] Peter Kyle Platelet mean volume (Bld) [Entitic vol] 8.7 fL Critically low 9.5-13.5 [facility] Comment on above: Performed By: #### C BC #### [facility] [address] [address] [address] Peter Kyle PLT 276 103/ul Normal 150-450 [facility] Comment on above: Performed By: #### C BC #### [facility] [address] [place], [place] [address] Dr. Peter Kyle RBC 4.90 106/ul Normal 4.70-6.10 [facility] Comment on above: Performed By: #### C BC #### [facility] [address] [place], [place] [address] Dr. Peter Kyle WBC 9.6 103/ul Normal 4.0-11.0 [facility] Comment on above: Performed By: #### C BC #### [facility] [address] [place], [place] [address] Dr. Peter Kyle US KIDNEYSon 10-21-2022 US KIDNEYS EXAM: Renal ultrasou nd: HISTORY: Gross hematuria. History of kidney stones, left renal stent, and lithotripsy. COMPARISON STUDY: Ultrasound dated 10/05/2022. FINDINGS: The right kidney measures 11.5 cm and the left kidney measures 12.3 cm. Both kidneys show a normal cortex to medullary ratio. There is no hydronephrosis on either side. Grossly stable large subcapsular fluid collection in the left kidney with grossly stable bilateral renal calcifications, left greater than right. The urinary bladder is grossly normal in appearance. IMPRESSION: Overall stable exam. There is no evidence of obstruction on either side. Electronically authenticated by: LIMA CAMPOS Date: 2022-10-21 13:25 Normal [facility] US KIDNEYSon 10-06-2022 US KIDNEYS EXAMINATION: US KIDN EYS HISTORY: Kidney stone ; left renal hematoma COMPARISON: CT abdomen pelvis 09/28/2022 TECHNIQUE: Ultrasound examination was performed of the kidneys and urinary bladder. FINDINGS: RIGHT KIDNEY: Contains several nonobstructing stones, largest is 8 mm. Incidental small benign-appearing 8 mm cyst within superior pole. No appreciable cortical thinning. Kidney: 11.4 x 5.3 x 6.1 cm LEFT KIDNEY: Thickened, heterogeneous, hypoechoic rim along lateral margin of kidney, 12.5 x 7.4 x 6.5 cm compatible with known subcapsular hematoma. Contain multiple nonobstructing stones, largest is 10 mm. Kidney: 12.6 x 8.4 x 9.4 cm BLADDER: Small focal area of echogenicity, likely related to left ureteral stent. No wall thickening or convincing stones. IMPRESSION: 1. Bilateral nonobstructing nephrolithiasis. 2. Large left renal subcapsular hematoma. Continued follow-up to document clearing is recommended. Electronically authenticated by: RIVAS KINCAID Date: 2022-10-06 07:41 Normal [facility] XR KUB 1 VIEWon 10-06-2022 XR KUB 1 VIEW EXAMINATION: XR KUB 1 VIEW HISTORY: Kidney stone ; acute left kidney stone COMPARISON: CT abdomen pelvis 09/28/2022, XR KUB 09/20/2022 FINDINGS: KIDNEY/URETER - RIGHT: Several small stones within right kidney. KIDNEY/URETER - LEFT: Left ureteral stent with numerous small and large calcifications within left kidney. 7 x 5 mm stone within proximal left ureter at ureteropelvic junction. PELVIS: No visible distal ureteral stones. BOWEL: No abnormal dilation or deviation. BONES: No acute abnormality. OTHER: Negative. No abnormal gaseous collections. IMPRESSION: 1. Bilateral nephrolithiasis. 2. Left ureteral stent with 7 x 5 mm stone likely at ureteropelvic junction; no progression compared to prior CT study. Electronically authenticated by: RIVAS KINCAID Date: 2022-10-06 07:28 Normal [facility] Basophils Auto (Bld) [#/Vol] Ordered By: Ulises Barron on 09-30-2022 Basophils (Bld) [#/Vol] 0.1 10*3/uL 0.0-0.2 [facility] Basophils/100 WBC Auto (Bld) Ordered By: Ulises Barorn on 09-30-2022 Basophils/100 WBC (Bld) 0.8 % . [facility] Creatinine and Glomerular fi ltration rate.predicted panel (S/P/Bld)Ordered By: Ulises Barron on 09-30-2022 Creatinine [Mass/Vol] 1.08 mg/dL 0.64-1.27 [facility] Eosinophils Auto (Bld) [#/Vo l]Ordered By: Ulises Barron on 09-30-2022 Eosinophils (Bld) [#/Vol] 0.2 10*3/uL 0.0-0.45 [facility] Eosinophils/100 WBC Auto (Bl d)Ordered By: Ulises Barron on 09-30-2022 Eosinophils/100 WBC (Bld) 2.5 % . [facility] Erythrocyte distribution wid th Auto (RBC) [Ratio]Ordered By: Ulises Barron on 09-30-2022 Erythrocyte distribution width (RBC) [Ratio] 17.3 % 12.0-14.8 [facility] Estimated glomerular filtrat ion rate (GFR) non- AmericanOrdered By: Ulises Barron on 09-30-2022 GFR/1.73 sq M.predicted among non-blacks MDRD (S/P/Bld) [Vol rate/Area] > 60 mL/Min [facility] Hematocrit Auto (Bld) [Volum e fraction]Ordered By: Ulises Barron on 09-30-2022 Hematocrit (Bld) [Volume fraction] 34.3 % 38.8-50.0 [facility] Hemoglobin [Mass/volume] in BloodOrdered By: Ulises Barron on 09-30-2022 Hemoglobin (Bld) [Mass/Vol] 10.9 g/dL 13.0-17.0 [facility] Leukocytes [#/volume] correc tremaine for nucleated erythrocytes in Blood by Automated counOrdered By: Ulises Barron on 09-30-2022 WBC corrected for nucl RBC Auto (Bld) [#/Vol] 7.6 10*3/uL 4.1-10.5 [facility] Lymphocytes Auto (Bld) [#/Vo l]Ordered By: Ulises Barron on 09-30-2022 Lymphocytes (Bld) [#/Vol] 1.8 10*3/uL 1.00-4.8 [facility] Lymphocytes/100 WBC Auto (Bl d)Ordered By: Ulises Barron on 09-30-2022 Lymphocytes/100 WBC (Bld) 23.4 % . [facility] MCH Auto (RBC) [Entitic mass ]Ordered By: Ulises Barron on 09-30-2022 MCH (RBC) [Entitic mass] 24.3 pg 27.5-35.2 [facility] MCHC Auto (RBC) [Mass/Vol]Or dered By: Ulises Barron on 09-30-2022 MCHC (RBC) [Mass/Vol] 31.7 g/dL 32.5-35.6 [facility] MCV Auto (RBC) [Entitic vol] Ordered By: Ulises Barron on 09-30-2022 MCV (RBC) [Entitic vol] 76.6 fL 83.5-101 [facility] Monocytes Auto (Bld) [#/Vol] Ordered By: Ulises Barron on 09-30-2022 Monocytes (Bld) [#/Vol] 0.8 10*3/uL 0.0-0.8 [facility] Monocytes/100 WBC Auto (Bld) Ordered By: Ulises Barron on 09-30-2022 Monocytes/100 WBC (Bld) 10.4 % . [facility] Neutrophils Auto (Bld) [#/Vo l]Ordered By: Ulises Barron on 09-30-2022 Neutrophils (Bld) [#/Vol] 4.8 10*3/uL 1.8-7.7 [facility] Neutrophils/100 WBC Auto (Bl d)Ordered By: Ulises Barron on 09-30-2022 Neutrophils/100 WBC (Bld) 62.9 % . [facility] No Panel InformationOrdered By: Ulises Barron on 09-30-2022 Estimated GFR () > 60 mL/Min [facility] Comment on above: GFR estimated refere nce range: According to KDOQI guidelines, <60 ml/min/1.73m2 is sufficient to diagnose a patient with chronic kidney disease. Pharmacy Creatinine Clearance (Chem 108.07 [facility] Nucleated erythrocytes [Pres ence] in Blood by Automated countOrdered By: Ulises Barron on 09-30-2022 Nucleated RBC Auto Ql (Bld) 0.1 /100{WBC} 0-0.5 [facility] Platelet mean volume Auto (B ld) [Entitic vol]Ordered By: Ulises Barron on 09-30-2022 Platelet mean volume (Bld) [Entitic vol] 6.6 fL 6.6-10.1 [facility] Platelets Auto (Bld) [#/Vol] Ordered By: Ulises Barron on 09-30-2022 Platelets (Bld) [#/Vol] 225 10*3/uL 150-450 [facility] RBC Auto (Bld) [#/Vol]Ordere d By: Ulises Barron on 09-30-2022 RBC (Bld) [#/Vol] 4.47 10*6/uL 3.90-5.60 [facility] Serum or plasma anion gap de terminationOrdered By: Ulises Barron on 09-30-2022 Anion gap [Moles/Vol] 11.2 mmol/L 6.0-15.0 [facility] Serum or plasma calcium dustin urement (mass/volume)Ordered By: Ulises Barron on 09-30-2022 Calcium [Mass/Vol] 8.7 mg/dL 8.2-10.2 [facility] Serum or plasma chloride justin surement (moles/volume)Ordered By: Ulises Barron on 09-30-2022 Chloride [Moles/Vol] 104 mmol/L 95-114 [facility] Serum or plasma glucose dustin urement (mass/volume)Ordered By: Ulises Barron on 09-30-2022 Glucose [Mass/Vol] 98 mg/dL 70-100 [facility] Comment on above: ADA recommended refe rence rangeRandom Glucose Reference Range is dependent on time and content of last meal. Glucose of more than 200 mg/dL in a nonstressed, ambulatory subject supports the diagnosis of Diabetes Mellitus. Serum or plasma potassium me asurement (moles/volume)Ordered By: Ulises Barron on 09-30-2022 Potassium [Moles/Vol] 3.9 mmol/L 3.5-5.1 [facility] Serum or plasma sodium measu rement (moles/volume)Ordered By: Ulises Barron on 09-30-2022 Sodium [Moles/Vol] 137 mmol/L 136-146 [facility] Serum or plasma total carbon dioxide measurement (moles/volume)Ordered By: Ulises Barron on 09-30-2022 CO2 [Moles/Vol] 25.7 mmol/L 22.0-30.0 [facility] Serum or plasma urea nitroge n measurement (mass/volume)Ordered By: Ulises Barron on 09-30-2022 Urea nitrogen [Mass/Vol] 9 mg/dL 9-23 [facility] WBC Auto (Bld) [#/Vol]Ordere d By: Ulises Barron on 09-30-2022 WBC (Bld) [#/Vol] 7.6 10*3/uL 4.1-10.5 [facility] BNPon 09-29-2022 Natriuretic peptide B (Bld) [Mass/Vol] 89.0 pg/mL Normal <=900.0 [facility] Comment on above: Performed By: #### C BC #### [facility] [address] [place] [address] Dr. Peter Kyle CARDIAC ITALO ADMITon 022 CK [Catalytic activity/Vol] 94 U/L Normal 39-308 [facility] Comment on above: Performed By: #### C BC #### [facility] [address] [place] [address] Dr. Peter Kyle CK.MB [Mass/Vol] 1.55 ng/mL Normal <=3.[address] [facility] Comment on above: Performed By: #### C BC #### [facility] [address] [place] [address] Dr. Peter Kyle HSTROP 12.0 pg/mL Normal 4.0-76.1 [facility] Comment on above: Result Comment: CUT- OFF POINTS HAVE BEEN ESTABLISHED BASED ON THE FOURTH UNIVERSAL DEFINITIONS OF MYOCARDIAL INFARCTION. THE UPPER REFERENCE LIMIT (URL) OF TROPONIN, DEFINED THE 99TH PERCENTILE OF cTnI DISTRIBUTION IN A REFERENCE POPULATION, HAS BEEN CONFIRMED THE DECISION THRESHOLD FOR PA DIAGNOSIS. Performed By: #### C BC #### [facility] [address] [place] [address] Dr. Peter Kyle CELIO 64 ng/mL Normal 16-96 [facility] Comment on above: Performed By: #### C BC #### [facility] [address] [place] [address] Dr. Peter Kyle CBC AUTO DIFFon 09-29-2022 BASO # 0.1 103/ul Normal 0.0-0.1 [facility] Comment on above: Performed By: #### C BC #### [facility] [address] [place] [address] Dr. Peter Kyle Basophils/100 WBC (Bld) 0.7 % Normal 0.2-2.0 [facility] Comment on above: Performed By: #### C BC #### [facility] [address] [place] [address] Dr. Peter Kyle EO # 0.2 103/ul Normal 0.0-0.7 [facility] Comment on above: Performed By: #### C BC #### [facility] [address] [place] [address] Dr. Peter Kyle Eosinophils/100 WBC (Bld) 2.8 % Normal 0.9-7.0 [facility] Comment on above: Performed By: #### C BC #### [facility] [address] [place] [address] Dr. Peter Kyel Erythrocyte distribution width (RBC) [Ratio] 16.3 % Critically high 11.0-15.0 [facility] Comment on above: Performed By: #### C BC #### [facility] [address] [place] [address] Dr. Peter Kyle Hematocrit (Bld) [Volume fraction] 34.3 % Critically low 42.0-54.0 [facility] Comment on above: Performed By: #### C BC #### [facility] [address] [place] [address] Dr. Peter Kyle Hemoglobin (Bld) [Mass/Vol] 10.7 g/dL Critically low 14.0-18.0 [facility] Comment on above: Performed By: #### C BC #### [facility] [address] [place] [address] Dr. Peter Kyle IG # 0.08 10e3/ul Critically high 0.00-0.03 [facility] Comment on above: Performed By: #### C BC #### [facility] [address] [place] [address] Dr. Peter Kyle IG % 1.1 % Critically high 0.0-0.5 [facility] Comment on above: Performed By: #### C BC #### [facility] [address] [place] [address] Dr. Peter Kyle LYMPH # 1.9 103/ul Normal 1.2-3.8 [facility] Comment on above: Performed By: #### C BC #### [facility] [address] [place] [address] Dr. Peter Kyle Lymphocytes/100 WBC (Bld) 24.8 % Normal 20.5-60.0 [facility] Comment on above: Performed By: #### C BC #### [facility] [address] [place] [address] Dr. Peter Kyle MANUAL DIFF REQ NO Normal [facility] Comment on above: Performed By: #### C BC #### [facility] [address] [place] [address] Dr. Peter Kyle MCH (RBC) [Entitic mass] 24.5 pg Critically low 25.9-34.0 [facility] Comment on above: Performed By: #### C BC #### [facility] [address] [place] [address] Dr. Peter Kyle MCHC (RBC) [Mass/Vol] 31.2 g/dL Normal 29.9-35.2 [facility] Comment on above: Performed By: #### C BC #### [facility] [address] [place] [address] Dr. Peter Kyle MCV (RBC) [Entitic vol] 78.5 fL Critically low 80.0-94.0 [facility] Comment on above: Performed By: #### C BC #### [facility] [address] [place] [address] Dr. Peter Kyle MONO # 0.8 103/ul Normal 0.3-0.8 [facility] Comment on above: Performed By: #### C BC #### [facility] [address] [place] [address] Dr. Peter Kyle Monocytes/100 WBC (Bld) 10.0 % Normal 1.7-12.0 [facility] Comment on above: Performed By: #### C BC #### [facility] [address] [place] [address] Dr. Peter Kyle NEUT # 4.6 103/ul Normal 1.4-6.5 [facility] Comment on above: Performed By: #### C BC #### [facility] [address] [place] [address] Dr. Peter Kyle Neutrophils/100 WBC (Bld) 60.6 % Normal 43.0-75.0 [facility] Comment on above: Performed By: #### C BC #### [facility] [address] [address] [address] Peter Kyle Platelet mean volume (Bld) [Entitic vol] 8.3 fL Critically low 9.5-13.5 [facility] Comment on above: Performed By: #### C BC #### [facility] [address] [address] [address] Peter Kyle PLT 203 103/ul Normal 150-450 [facility] Comment on above: Performed By: #### C BC #### [facility] [address] [address] [address] Peter Kyle RBC 4.37 106/ul Critically low 4.70-6.10 [facility] Comment on above: Performed By: #### C BC #### [facility] [address] [address] [address] Peter Kyle WBC 7.6 103/ul Normal 4.0-11.0 [facility] Comment on above: Performed By: #### C BC #### [facility] [address] [address] [address] ABD/PELVIS WO CONon 09-29 CT ABD/PELVIS WO CON EXAMINATION: CT ABD /PELVIS WO CON HISTORY: Kidney stone ; follow-up left renal hematoma post lithotripsy 1 month ago COMPARISON: No relevant comparison available. TECHNIQUE: Axial, Coronal, and Sagittal images were obtained without and/or with IV contrast as indicated by examination type. Dose reduction techniques were achieved by using automated exposure control and/or adjustment of mA and/or kV according to patient size and/or use of iterative reconstruction technique. FINDINGS: LUNG BASES: Mild atelectasis versus infiltrates within lung bases. Incidental granulomas. LIVER: No enlargement, atrophy, suspicious density, or significant focal lesion. BILIARY: No dilatation or calcification. PANCREAS: No lesion, fluid collection, or abnormal duct dilatation. SPLEEN: No enlargement or focal lesion. ADRENALS: No mass or enlargement. KIDNEYS: Numerous nonobstructing stones within right kidney, largest is 6 mm. Unremarkable ureter. Large subcapsular hematoma involving left kidney which is isodense to the kidney, and margins cannot be defined. Overall size of the kidney and hematoma combined is 12.1 x 10.6 x 9.2 cm. Several nonobstructing stones within left kidney, largest is 10 mm. Nonobstructing 7 x 7 x 5 mm stone at the ureteropelvic junction. Prominent stranding within left perirenal space which may be secondary to prior hemorrhage or represent recent obstruction and decompression. BOWEL/MESENTERY: No visible mass, obstruction, or bowel wall thickening. AORTA/VASCULAR: No aneurysm or dissection. RETROPERITONEUM: No mass or adenopathy. LYMPH NODES: No adenopathy. URINARY BLADDER: No visible focal wall thickening, lesion, or calculus. PELVIC ORGANS: No visible mass. Pelvic organs appropriate for patient age. ABDOMINAL WALL: Tiny fat filled umbilical hernia without strangulation. BONES: Intervertebral disc spacers at L4-L5. Mild loss of disc height at L5-S1. No fracture or bone lesion. OTHER: Negative. IMPRESSION: 1. Large left renal subcapsular hematoma which is isodense to renal parenchyma preventing defining of exact size. No recent correlated studies for comparison, but patient history describes known subcapsular hematoma. 2. Bilateral nephrolithiasis. 3. Large stone within left renal pelvis at the ureteropelvic junction, not currently obstructing, but given the stranding within the left perirenal space. This may have recently obstructed and decompressed. Electronically authenticated by: RIVAS KINCAID Date: 2022-09-29 07:04 Normal [facility] FREE THYROXINE INDEX T7on FTI 2.15 Normal 1.30-4.50 [facility] Comment on above: Performed By: #### C BC #### [facility] [address] [place], [place] [address] Dr. Peter Kyle T3U 33.0 % Normal 33.0-40.0 [facility] Comment on above: Performed By: #### C BC #### [facility] [address] [place], [place] [address] Dr. Peter Kyle T4 [Mass/Vol] 6.50 ug/dL Normal 4.50-12.10 [facility] Comment on above: Performed By: #### C BC #### [facility] [address] [place], [place] [address] Dr. Peter Kyle PROF 14(COMP METB)on 022 Albumin [Mass/Vol] 3.4 g/dL Normal 3.4-5.0 [facility] Comment on above: Performed By: #### C BC #### [facility] [address] [place] [address] Dr. Peter Kyle Albumin/Globulin [Mass ratio] 0.9 {ratio} Normal [facility] Comment on above: Performed By: #### C BC #### [facility] [address] [place] [address] Dr. Peter Kyle ALP [Catalytic activity/Vol] 64 U/L Normal 46-116 [facility] Comment on above: Performed By: #### C BC #### [facility] [address] [place] [address] Dr. Peter Kyle ALT [Catalytic activity/Vol] 14 U/L Critically low 16-63 [facility] Comment on above: Performed By: #### C BC #### [facility] [address] [place] [address] Dr. Peter Kyle Anion gap [Moles/Vol] 9.6 mmol/L Normal [facility] Comment on above: Performed By: #### C BC #### [facility] [address] [place] [address] Dr. Peter Kyle AST [Catalytic activity/Vol] 15 U/L Normal 15-37 [facility] Comment on above: Performed By: #### C BC #### [facility] [address] [place] [address] Dr. Peter Kyle Bilirubin [Mass/Vol] 0.5 mg/dL Normal 0.2-1.0 [facility] Comment on above: Performed By: #### C BC #### [facility] [address] [place] [address] Dr. Peter Kyle Calcium [Mass/Vol] 8.5 mg/dL Normal 8.5-10.1 [facility] Comment on above: Performed By: #### C BC #### [facility] [address] [place] [address] Dr. Peter Kyle Chloride [Moles/Vol] 105 mmol/L Normal 98-107 [facility] Comment on above: Performed By: #### C BC #### [facility] [address] [place] [address] Dr. Peter Kyle CO2 [Moles/Vol] 29.4 mmol/L Normal 21.0-32.[address] [facility] Comment on above: Performed By: #### C BC #### [facility] [address] [place] [address] [address] Peter Kyle Creatinine [Mass/Vol] 1.17 mg/dL Normal 0.70-1.30 [facility] Comment on above: Performed By: #### C BC #### [facility] [address] [place] [address] Dr. Peter Kyle EGFR-AF SINGAPOREAN >60 Normal >=[address] [facility] Comment on above: Performed By: #### C BC #### [facility] [address] [place] [address] Dr. Peter Kyle EGFR-NON AF SINGAPOREAN >60 Normal >=60 [facility] Comment on above: Performed By: #### C BC #### [facility] [address] [place] [address] Dr. Peter Kyle Globulin (S) [Mass/Vol] 4.0 g/dL Normal [facility] Comment on above: Performed By: #### C BC #### [facility] [address] [place] [address] Dr. Peter Kyle Glucose [Mass/Vol] 89 mg/dL Normal 74-106 [facility] Comment on above: Performed By: #### C BC #### [facility] [address] [place] [address] Dr. Peter Kyle Potassium [Moles/Vol] 4.0 mmol/L Normal 3.5-5.1 [facility] Comment on above: Performed By: #### C BC #### [facility] [address] [place] [address] Dr. Peter Klye Protein [Mass/Vol] 7.4 g/dL Normal 6.4-8.2 [facility] Comment on above: Performed By: #### C BC #### [facility] [address] [place] [address] [address] Peter Kyle Sodium [Moles/Vol] 140 mmol/L Normal 136-145 [facility] Comment on above: Performed By: #### C BC #### [facility] [address] [place] [address] [address] Peter Kyle Urea nitrogen [Mass/Vol] 12.0 mg/dL Normal 7.0-18.0 [facility] Comment on above: Performed By: #### C BC #### [facility] [address] [place] [address] [address] Peter Kyle Urea nitrogen/Creatinine [Mass ratio] 10.3 mg/mg Normal [facility] Comment on above: Performed By: #### C BC #### [facility] [address] [place] [address] Dr. Peter Kyle TSHon 09-29-2022 TSH 1.129 uIU/mL Normal 0.358-3.74 0 [facility] Comment on above: Performed By: #### C BC #### [facility] [address] [place] [address] Dr. Peter Kyle HEMOGLOBIN AND HEMATOCRITon 09-28-2022 Hematocrit (Bld) [Volume fraction] 34.1 % Critically low 42.0-54.0 [facility] Comment on above: Performed By: #### H GBHCT #### [facility] [address] [place] [address] Dr. Peter Kyle Hemoglobin (Bld) [Mass/Vol] 10.8 g/dL Critically low 14.0-18.0 [facility] Comment on above: Performed By: #### H GBHCT #### [facility] [address] [place] [address] Dr. Peter Kyle INSULINon 09-21-2022 Insulin 33.7 uIU/mL Critically high 2.6-24.9 [facility] Comment on above: Performed By: #### C BC #### [facility] [address] [place] [address] Dr. Peter Kyle CBC AUTO DIFFon 09-20-2022 BASO # 0.1 103/ul Normal 0.0-0.1 [facility] Comment on above: Performed By: #### P TT, PT #### [facility] [address] [place] [address] Dr. Peter Kyle Basophils/100 WBC (Bld) 0.5 % Normal 0.2-2.0 [facility] Comment on above: Performed By: #### P TT, PT #### [facility] [address] [place] [address] Dr. Peter Kyle EO # 0.3 103/ul Normal 0.0-0.7 [facility] Comment on above: Performed By: #### P TT, PT #### [facility] [address] [place] [address] Dr. Peter Kyle Eosinophils/100 WBC (Bld) 3.3 % Normal 0.9-7.0 [facility] Comment on above: Performed By: #### P TT, PT #### [facility] [address] [place] [address] Dr. Peter Kyle Erythrocyte distribution width (RBC) [Ratio] 14.7 % Normal 11.0-15.0 [facility] Comment on above: Performed By: #### P TT, PT #### [facility] [address] [place] [address] Dr. Peter Kyle Hematocrit (Bld) [Volume fraction] 33.4 % Critically low 42.0-54.0 [facility] Comment on above: Performed By: #### P TT, PT #### [facility] [address] [place] [address] Dr. Peter Kyle Hemoglobin (Bld) [Mass/Vol] 10.6 g/dL Critically low 14.0-18.0 [facility] Comment on above: Performed By: #### P TT, PT #### [facility] [address] [place] [address] Dr. Peter Kyle IG # 0.14 10e3/ul Critically high 0.00-0.03 [facility] Comment on above: Performed By: #### P TT, PT #### [facility] [address] [place] [address] [address] Peter Kyle IG % 1.5 % Critically high 0.0-0.5 [facility] Comment on above: Performed By: #### P TT, PT #### [facility] [address] [place] [address] [address] Peter Kyle LYMPH # 2.0 103/ul Normal 1.2-3.8 [facility] Comment on above: Performed By: #### P TT, PT #### [facility] [address] [place] [address] [address] Peter Kyle Lymphocytes/100 WBC (Bld) 21.8 % Normal 20.5-60.0 [facility] Comment on above: Performed By: #### P TT, PT #### [facility] [address] [place] [address] Dr. Peter Kyle MANUAL DIFF REQ NO Normal [facility] Comment on above: Performed By: #### P TT, PT #### [facility] [address] [place] [address] Dr. Peter Kyle MCH (RBC) [Entitic mass] 24.8 pg Critically low 25.9-34.0 [facility] Comment on above: Performed By: #### P TT, PT #### [facility] [address] [place] [address] Dr. Peter Kyle MCHC (RBC) [Mass/Vol] 31.7 g/dL Normal 29.9-35.2 [facility] Comment on above: Performed By: #### P TT, PT #### [facility] [address] [place] [address] Dr. Peter Kyle MCV (RBC) [Entitic vol] 78.0 fL Critically low 80.0-94.0 [facility] Comment on above: Performed By: #### P TT, PT #### [facility] [address] [place] [address] Dr. Peter Kyle MONO # 0.8 103/ul Normal 0.3-0.8 [facility] Comment on above: Performed By: #### P TT, PT #### [facility] [address] [place] [address] [address] Peter Kyle Monocytes/100 WBC (Bld) 8.6 % Normal 1.7-12.0 [facility] Comment on above: Performed By: #### P TT, PT #### [facility] [address] [place] [address] Dr. Peter Kyle NEUT # 5.9 103/ul Normal 1.4-6.5 [facility] Comment on above: Performed By: #### P TT, PT #### [facility] [address] [place] [address] Dr. Peter Kyle Neutrophils/100 WBC (Bld) 64.3 % Normal 43.0-75.0 [facility] Comment on above: Performed By: #### P TT, PT #### [facility] [address] [place] [address] Dr. Peter Kyle Platelet mean volume (Bld) [Entitic vol] 8.1 fL Critically low 9.5-13.5 [facility] Comment on above: Performed By: #### P TT, PT #### [facility] [address] [place] [address] Dr. Peter Kyle PLT 309 103/ul Normal 150-450 [facility] Comment on above: Performed By: #### P TT, PT #### [facility] [address] [place] [address] Dr. Peter Kyle RBC 4.28 106/ul Critically low 4.70-6.10 [facility] Comment on above: Performed By: #### P TT, PT #### [facility] [address] [place] [address] Dr. Peter Kyle WBC 9.2 103/ul Normal 4.0-11.0 [facility] Comment on above: Performed By: #### P TT, PT #### [facility] [address] [place] [address] Dr. Peter Kyle FREE THYROXINE INDEX T7on FTI 1.77 Normal 1.30-4.50 [facility] Comment on above: Performed By: #### T SH, T7, CMP #### [facility] [address] [place] [address] [address] Peter Kyle T3U 34.0 % Normal 33.0-40.0 [facility] Comment on above: Performed By: #### T SH, T7, CMP #### [facility] [address] [place] [address] [address] Peter Kyle T4 [Mass/Vol] 5.20 ug/dL Normal 4.50-12.10 [facility] Comment on above: Performed By: #### T EZEKIEL, T7, CMP #### [facility] [address] [place] [address] [address] Peter Kyle GLYCOHEMOGLOBIN A1Con 2021 ADA RECOMMENDATION SEE BELOW Normal [facility] Comment on above: Result Comment: ADA RECOMMENDED LIMIT 4.0 - 6.0 ADA THERAPEUTIC TARGET < 7.0 ACTION SUGGESTED > 7.0 Performed By: #### C BC #### [facility] [address] [place] [address] [address] Peter Kyle Glucose [Mass/Vol] 126 mg/dL Normal [facility] Comment on above: Performed By: #### C BC #### [facility] [address] [place] [address] [address] Peter Kyle HbA1c (Bld) [Mass fraction] 6.0 % Normal 4.5-6.2 [facility] Comment on above: Performed By: #### C BC #### [facility] [address] [place] [address] [address] Peter Kyle PROF 14(COMP METB)on 022 Albumin [Mass/Vol] 3.3 g/dL Critically low 3.4-5.0 [facility] Comment on above: Performed By: #### T SH, T7, CMP #### [facility] [address] [place] [address] Dr. Peter Kyle Albumin/Globulin [Mass ratio] 0.8 {ratio} Normal [facility] Comment on above: Performed By: #### T SH, T7, CMP #### [facility] [address] [place] [address] [address] Peter Kyle ALP [Catalytic activity/Vol] 71 U/L Normal 46-116 [facility] Comment on above: Performed By: #### T EZEKIEL, T7, CMP #### [facility] [address] [place] [address] [address] Peter Kyle ALT [Catalytic activity/Vol] 12 U/L Critically low 16-63 [facility] Comment on above: Performed By: #### T EZEKIEL, T7, CMP #### [facility] [address] [place] [address] [address] Peter Kyle Anion gap [Moles/Vol] 11.4 mmol/L Normal [facility] Comment on above: Performed By: #### T EZEKIEL, T7, CMP #### [facility] [address] [place] [address] Dr. Peter Kyle AST [Catalytic activity/Vol] 12 U/L Critically low 15-37 [facility] Comment on above: Performed By: #### T EZEKIEL, T7, CMP #### [facility] [address] [place] [address] [address] Peter Kyle Bilirubin [Mass/Vol] 0.4 mg/dL Normal 0.2-1.0 [facility] Comment on above: Performed By: #### T EZEKIEL, T7, CMP #### [facility] [address] [place] [address] Dr. Peter Kyle Calcium [Mass/Vol] 8.6 mg/dL Normal 8.5-10.1 [facility] Comment on above: Performed By: #### T EZEKIEL, T7, CMP #### [facility] [address] [place] [address] [address] Peter Kyle Chloride [Moles/Vol] 106 mmol/L Normal 98-107 [facility] Comment on above: Performed By: #### T SH, T7, CMP #### [facility] [address] [place] [address] Dr. Peter Kyle CO2 [Moles/Vol] 25.9 mmol/L Normal 21.0-32.0 [facility] Comment on above: Performed By: #### T SH, T7, CMP #### [facility] [address] [place] [address] [address] Peter Kyle Creatinine [Mass/Vol] 1.22 mg/dL Normal 0.70-1.30 [facility] Comment on above: Performed By: #### T SH, T7, CMP #### [facility] [address] [place] [address] [address] Peter Kyle EGFR-AF SINGAPOREAN >60 Normal >=60 [facility] Comment on above: Performed By: #### T SH, T7, CMP #### [facility] [address] [place] [address] [address] Peter Kyle EGFR-NON AF SINGAPOREAN >60 Normal >=60 [facility] Comment on above: Performed By: #### T SH, T7, CMP #### [facility] [address] [place] [address] [address] Peter Kyle Globulin (S) [Mass/Vol] 4.2 g/dL Normal [facility] Comment on above: Performed By: #### T SH, T7, CMP #### [facility] [address] [place] [address] [address] Peter Kyle Glucose [Mass/Vol] 111 mg/dL Critically high 74-106 [facility] Comment on above: Performed By: #### T SH, T7, CMP #### [facility] [address] [place] [address] [address] Peter Kyle Potassium [Moles/Vol] 4.3 mmol/L Normal 3.5-5.1 [facility] Comment on above: Performed By: #### T SH, T7, CMP #### [facility] [address] [address] [address] Peter Kyle Protein [Mass/Vol] 7.5 g/dL Normal 6.4-8.2 [facility] Comment on above: Performed By: #### T SH, T7, CMP #### [facility] [address] [place] [address] [address] Peter Kyle Sodium [Moles/Vol] 139 mmol/L Normal 136-145 [facility] Comment on above: Performed By: #### T SH, T7, CMP #### [facility] [address] [place] [address] [address] Peter Kyle Urea nitrogen [Mass/Vol] 8.0 mg/dL Normal 7.0-18.0 [facility] Comment on above: Performed By: #### T SH, T7, CMP #### [facility] [address] [place] [address] [address] Peter Kyle Urea nitrogen/Creatinine [Mass ratio] 6.6 mg/mg Normal [facility] Comment on above: Performed By: #### T SH, T7, CMP #### [facility] [address] [address] [address] Peter Kyle TSHon 09-20-2022 TSH 0.857 uIU/mL Normal 0.358-3.74 0 [facility] Comment on above: Performed By: #### T SH, T7, CMP #### [facility] [address] [place] [address] Dr. Peter Kyle XR KUB 1 VIEWon 09-20-2022 XR KUB 1 VIEW EXAMINATION: XR KUB 1 VIEW HISTORY: Kidney stone COMPARISON: Ultrasound kidneys and bladder 06/08/2022, CT chest abdomen pelvis 10/11/2015 FINDINGS: KIDNEY/URETER - RIGHT: Several small stones projecting over right kidney. KIDNEY/URETER - LEFT: Multiple stones projecting over left kidney, largest is 10 mm. PELVIS: 1-2 mm stone projecting over suspected location of the left ureterovesical junction. BOWEL: No abnormal dilation or deviation. BONES: No acute abnormality. OTHER: Negative. No abnormal gaseous collections. IMPRESSION: 1. Bilateral nephrolithiasis. No prior radiographs for comparison. 2. Small phleboliths versus distal left ureteral stone. No recent comparison studies of this area. Electronically authenticated by: RIVAS KINCAID Date: 2022-09-20 12:24 Normal [facility] COVID-19 Positive/NegativeOr dered By: Patito Sweet on 08-19-2022 SARS-CoV-2 (COVID-19) N gene VIMAL+probe Ql (Resp) Negative Negative [facility] Comment on above: Testing for SARS-CoV -2 by RT-PCRThis test was developed and its performance characteristics determined by [employer] ([employer]) and validated at the [facility]. This test has not been FDA cleared or approved. This test has been authorized by FDA under an Emergency Use Authorization (EUA). This test has been validated in accordance with the FDA's Guidance Document (Policy for Diagnostics Testing in Laboratories Certified to Perform High Complexity Testing under CLIA prior to Emergency Use Authorization for Coronavirus Disease-2019 during the Public Health Emergency) issued on January 16, 2020. This test is only authorized for the duration of time the declaration that circumstances exist justifying the authorization of the emergency use of in vitro diagnostic tests for detection of SARS-CoV-2 virus and/or diagnosis of COVID-19 infection under section 564(b)(1) of the Act, 21 U.S.C. 360bbb-3(b)(1), unless the authorization is terminated or revoked sooner. Activated partial thrombopla stin time (aPTT) in platelet poor plasma by coagulation aOrdered By: Patito Sweet on 08-12-2022 aPTT Coag (PPP) [Time] 30.4 s 25.1-36.5 [facility] Basophils Auto (Bld) [#/Vol] Ordered By: Patito Sweet on 08-12-2022 Basophils (Bld) [#/Vol] 0.1 10*3/uL 0.0-0.2 [facility] Basophils/100 WBC Auto (Bld) Ordered By: Patito Sweet on 08-12-2022 Basophils/100 WBC (Bld) 0.6 % . [facility] Creatinine and Glomerular fi ltration rate.predicted panel (S/P/Bld)Ordered By: Patito Sweet on 08-12-2022 Creatinine [Mass/Vol] 1.08 mg/dL 0.64-1.27 [facility] Eosinophils Auto (Bld) [#/Vo l]Ordered By: Patito Sweet on 08-12-2022 Eosinophils (Bld) [#/Vol] 0.2 10*3/uL 0.0-0.45 [facility] Eosinophils/100 WBC Auto (Bl d)Ordered By: Patito wSeet on 08-12-2022 Eosinophils/100 WBC (Bld) 1.9 % . [facility] Erythrocyte distribution wid th Auto (RBC) [Ratio]Ordered By: Patito Sweet on 08-12-2022 Erythrocyte distribution width (RBC) [Ratio] 15.0 % 12.0-14.8 [facility] Estimated glomerular filtrat ion rate (GFR) non- AmericanOrdered By: Patito Sweet on 08-12-2022 GFR/1.73 sq M.predicted among non-blacks MDRD (S/P/Bld) [Vol rate/Area] > 60 mL/Min [facility] Hematocrit Auto (Bld) [Volum e fraction]Ordered By: Patito Sweet on 08-12-2022 Hematocrit (Bld) [Volume fraction] 42.6 % 38.8-50.0 [facility] Hemoglobin [Mass/volume] in BloodOrdered By: Patito Sweet on 08-12-2022 Hemoglobin (Bld) [Mass/Vol] 13.9 g/dL 13.0-17.0 [facility] - CoagulationOrde red By: Patito Sweet on 08-12-2022 PT Coag (PPP) [Time] 14.0 s 9.0-12.9 [facility] - Hematology and Cell countsOrdered By: Patito Sweet on 08-12-2022 Nucleated RBC/100 WBC (Bld) [Ratio] 0.1 % 0-0.5 [facility] Leukocytes [#/volume] in Blo od by Automated countOrdered By: Patito Sweet on 08-12-2022 WBC (Bld) [#/Vol] 9.0 10*3/uL 4.5-11.0 [facility] Lymphocytes Auto (Bld) [#/Vo l]Ordered By: Patito Sweet on 08-12-2022 Lymphocytes (Bld) [#/Vol] 2.0 10*3/uL 1.00-4.8 [facility] Lymphocytes/100 WBC Auto (Bl d)Ordered By: Patito Sweet on 08-12-2022 Lymphocytes/100 WBC (Bld) 22.1 % . [facility] MCH Auto (RBC) [Entitic mass ]Ordered By: Patito Sweet on 08-12-2022 MCH (RBC) [Entitic mass] 25.8 pg 27.5-35.2 [facility] MCHC Auto (RBC) [Mass/Vol]Or dered By: Patito Sweet on 08-12-2022 MCHC (RBC) [Mass/Vol] 32.6 g/dL 32.5-35.6 [facility] MCV Auto (RBC) [Entitic vol] Ordered By: Patito Sweet on 08-12-2022 MCV (RBC) [Entitic vol] 79.1 fL 83.5-101 [facility] Monocytes Auto (Bld) [#/Vol] Ordered By: Patito Sweet on 08-12-2022 Monocytes (Bld) [#/Vol] 0.8 10*3/uL 0.0-0.8 [facility] Monocytes/100 WBC Auto (Bld) Ordered By: Patito Sweet on 08-12-2022 Monocytes/100 WBC (Bld) 9.2 % . [facility] Neutrophils Auto (Bld) [#/Vo l]Ordered By: Patito Sweet on 08-12-2022 Neutrophils (Bld) [#/Vol] 6.0 10*3/uL 1.8-7.7 [facility] Neutrophils/100 WBC Auto (Bl d)Ordered By: Patito Sweet on 08-12-2022 Neutrophils/100 WBC (Bld) 66.2 % . [facility] No Panel InformationOrdered By: Patito Sweet on 08-12-2022 Estimated GFR () > 60 mL/Min [facility] Comment on above: GFR estimated refere nce range: According to KDOQI guidelines, <60 ml/min/1.73m2 is sufficient to diagnose a patient with chronic kidney disease. Pharmacy Creatinine Clearance (Chem N/A [facility] Platelet mean volume Auto (B ld) [Entitic vol]Ordered By: Patito Sweet on 08-12-2022 Platelet mean volume (Bld) [Entitic vol] 7.5 fL 6.6-10.1 [facility] Platelet poor plasma interna tional normalized ratio (INR) by coagulation assay (relatOrdered By: Patito Sweet on 08-12-2022 INR Coag (PPP) [Relative time] 1.2 {INR} [facility] Comment on above: INR Therapeutic Rang e A) Pre- and Peroperative OAT started two weeks before surgery. NOT HIP SURGERY: 1.5 - 2.5 HIP SURGERY: 2 - 3B) Primary and secondary prevention of venous THROMBOSIS: 2 - 3C) Active venous thrombosis, pulmonary embolismand prevention of recurrent venous thrombosis: 2 - 3D) Prevention of arterial thromboembolismincluding patients with mechanical heart valves: 3 - 4.5 Platelets Auto (Bld) [#/Vol] Ordered By: Patito Sweet on 08-12-2022 Platelets (Bld) [#/Vol] 213 10*3/uL 150-450 [facility] RBC Auto (Bld) [#/Vol]Ordere d By: Patito Sweet on 08-12-2022 RBC (Bld) [#/Vol] 5.38 10*6/uL 3.90-5.60 [facility] Serum or plasma anion gap de terminationOrdered By: Patito Sweet on 08-12-2022 Anion gap [Moles/Vol] 15.0 mmol/L 6.0-15.0 [facility] Serum or plasma calcium dustin urement (mass/volume)Ordered By: Patito Sweet on 08-12-2022 Calcium [Mass/Vol] 9.0 mg/dL 8.2-10.2 [facility] Serum or plasma chloride justin surement (moles/volume)Ordered By: Patito Sweet on 08-12-2022 Chloride [Moles/Vol] 107 mmol/L 95-114 [facility] Serum or plasma glucose dustin urement (mass/volume)Ordered By: Patito Sweet on 08-12-2022 Glucose [Mass/Vol] 128 mg/dL 70-100 [facility] Comment on above: ADA recommended refe rence rangeRandom Glucose Reference Range is dependent on time and content of last meal. Glucose of more than 200 mg/dL in a nonstressed, ambulatory subject supports the diagnosis of Diabetes Mellitus. Serum or plasma potassium me asurement (moles/volume)Ordered By: Patito Sweet on 08-12-2022 Potassium [Moles/Vol] 4.2 mmol/L 3.5-5.1 [facility] Serum or plasma sodium measu rement (moles/volume)Ordered By: Patito Sweet on 08-12-2022 Sodium [Moles/Vol] 142 mmol/L 136-146 [facility] Serum or plasma total carbon dioxide measurement (moles/volume)Ordered By: Patito Sweet on 08-12-2022 CO2 [Moles/Vol] 24.2 mmol/L 22.0-30.0 [facility] Serum or plasma urea nitroge n measurement (mass/volume)Ordered By: Patito Sweet on 08-12-2022 Urea nitrogen [Mass/Vol] 12 mg/dL 07-08 [facility] US KIDNEYS BLADDERon 022 US KIDNEYS BLADDER EXAM: US KIDNEYS JUSTINE DDER HISTORY: . Kel hematuria . COMPARISON: None. TECHNIQUE: Grayscale and color imaging was performed FINDINGS: Scanning of the right kidney demonstrates the right kidney to measure 11.3 x 5.2 x 5.2 cm. Color-flow is noted. There are several echogenic foci within the kidney with shadowing consistent with renal calculi. The largest calculus measures approximately 8 mm. No hydronephrosis is noted. There is an 8 mm cyst involving the upper pole of the right kidney. Left kidney measures 12.7 x 5.4 x 5.3 cm. Color-flow is noted. Several echogenic foci are noted within the left kidney with shadowing consistent with renal calculi. The largest measures 1.4 cm. There is also 8 8 x 7 mm cyst involving the mid upper pole of the right kidney. No hydronephrosis is noted. There is a 1.1 x 0.9 cm cyst in the midportion of the left kidney. Scanning of the bladder demonstrates a bladder volume of 241 cc. No bladder wall thickening is noted. Within the posterior inferior aspect of the bladder along the wall there is a 1.2 x 0.8 x 0.7 cm hyperechoic lesion. This did not move with positioning. Bilateral ureteral jets were noted. IMPRESSION: 1. Right kidney demonstrates several nonobstructing calculi. There is also a 8 mm cyst involving the upper pole of the right kidney. No hydronephrosis. 2. Several nonobstructing left renal calculi. No hydronephrosis. There is a 1.1 cm cyst involving the midpole of the left kidney. 3. The latter demonstrates bilateral ureteral jets. Along the posterior inferior wall of the bladder there is a 1.2 x 0.7 cm echogenic focus. Findings could represent a bladder calculus, bladder mass with early calcifications, an inflammatory mass or possibly a neoplasm. Clinical correlation is suggested. Electronically authenticated by: MYRA PAREDES Date: 2022-06-08 08:34 Normal [facility] XR hip LT min 2V(w/wo pelvis )*on 02-16-2022 XR hip LT min 2V(w/wo pelvis)* [facility] [employer] Other XR hip LT min 2V(w/wo pelvis)* [facility] [employer] Other XR hip LT min 2V(w/wo pelvis)* [address] [facility] [employer] Other XR hip LT min 2V(w/wo pelvis)* [place] [address] [employer] Other XR hip LT min 2V(w/wo pelvis)* XRay Report [employer] Other XR hip LT min 2V(w/wo pelvis)* Signed [employer] Other XR hip LT min 2V(w/wo pelvis)* Patient: Lima Loyd MR#: [id number] [employer] Other XR hip LT min 2V(w/wo pelvis)* [id number] [facility] [employer] Other XR hip LT min 2V(w/wo pelvis)* : 1965 Acct:[id number] [employer] Other XR hip LT min 2V(w/wo pelvis)* Age/Sex: 56 / M ADM Date: 02/16/22 [employer] Other XR hip LT min 2V(w/wo pelvis)* Loc: [facility] Room: Type: [facility] [employer] Other XR hip LT min 2V(w/wo pelvis)* Attending Dr: Gaurav Scott DO [employer] Other XR hip LT min 2V(w/wo pelvis)* Ordering Provider: Gaurav Scott DO [employer] Other XR hip LT min 2V(w/wo pelvis)* Date of Service: 02/16/22 [employer] Other XR hip LT min 2V(w/wo pelvis)* XR/XR hip LT min 2V(w/wo pelvis)*: Acute pain of left hip [employer] Other XR hip LT min 2V(w/wo pelvis)* Copies to: Gaurav Scott DO [employer] Other XR hip LT min 2V(w/wo pelvis)* 2 views LEFT hip single view pelvisplain film [employer] Other XR hip LT min 2V(w/wo pelvis)* COMPARISON:02/02/22 [employer] Other XR hip LT min 2V(w/wo pelvis)* HISTORY:LEFT hip pain for months [employer] Other XR hip LT min 2V(w/wo pelvis)* No fracture, dislocation or focal soft tissue abnormality seen.Hip joint space is adequate. The [employer] Other XR hip LT min 2V(w/wo pelvis)* articular surfaces of the hips preserved. [employer] Other XR hip LT min 2V(w/wo pelvis)* XR/XR hip LT min 2V(w/wo pelvis)* [employer] Other XR hip LT min 2V(w/wo pelvis)* IMPRESSION:Unremarkable LEFT hip [employer] Other XR hip LT min 2V(w/wo pelvis)* Impression dictated by: Garrett Astudillo M.D.02/16/2022 2:21 PM [employer] Other XR hip LT min 2V(w/wo pelvis)* Dictation Location: [facility] [employer] Other XR hip LT min 2V(w/wo pelvis)* Transcribed By: PWS 02/16/22 1421 [facility] [employer] [facility] Other XR hip LT min 2V(w/wo pelvis)* Dictated By: Garrett Astudillo DO 02/16/22 1411 [employer] Other XR hip LT min 2V(w/wo pelvis)* Signed By: [employer] Other XR hip LT min 2V(w/wo pelvis)* 02/16/22 [facility] [employer] Other XR hip RT min 2V(w/wo pelvis )*on 02-02-2022 XR hip RT min 2V(w/wo pelvis)* [facility] [employer] Other XR hip RT min 2V(w/wo pelvis)* [facility] [place] [employer] Other XR hip RT min 2V(w/wo pelvis)* [address] [place] [address] [employer] Other XR hip RT min 2V(w/wo pelvis)* [place] [address] [employer] Other XR hip RT min 2V(w/wo pelvis)* XRay Report [employer] Other XR hip RT min 2V(w/wo pelvis)* Signed [employer] Other XR hip RT min 2V(w/wo pelvis)* Patient: Lima Loyd MR#: [id number] [employer] Other XR hip RT min 2V(w/wo pelvis)* [id number] [employer] Other XR hip RT min 2V(w/wo pelvis)* : 1965 Acct:[id number] [employer] Other XR hip RT min 2V(w/wo pelvis)* Age/Sex: 56 / M ADM Date: 02/02/22 [employer] Other XR hip RT min 2V(w/wo pelvis)* Loc: [facility] Room: Type: [facility] [employer] Other XR hip RT min 2V(w/wo pelvis)* Attending Dr: Gaurav Scott DO [employer] Other XR hip RT min 2V(w/wo pelvis)* Ordering Provider: Gaurav Scott DO [employer] Other XR hip RT min 2V(w/wo pelvis)* Date of Service: 02/02/22 [employer] Other XR hip RT min 2V(w/wo pelvis)* XR/XR hip RT min 2V(w/wo pelvis)*: Right hip pain [employer] Other XR hip RT min 2V(w/wo pelvis)* Copies to: Gaurav Scott DO [employer] Other XR hip RT min 2V(w/wo pelvis)* Pelvis and right hip 02/02/2022. [employer] Other XR hip RT min 2V(w/wo pelvis)* CLINICAL DATA: Right hip pain. [employer] Other XR hip RT min 2V(w/wo pelvis)* FINDINGS: A single view of the pelvis and 2 views of the right hip were obtained. [employer] Other XR hip RT min 2V(w/wo pelvis)* The right and left acetabula appear shallow. No acute fracture or dislocation is identified. 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 No bony erosion or destruction is [employer] Other XR hip RT min 2V(w/wo pelvis)* visualized. There are postsurgical changes related to L4-L5 interbody fusion. [employer] Other XR hip RT min 2V(w/wo pelvis)* XR/XR hip RT min 2V(w/wo pelvis)* [employer] Other XR hip RT min 2V(w/wo pelvis)* IMPRESSION: Shallow acetabula. Mild degenerative changes. No acute bony abnormality. [employer] Other XR hip RT min 2V(w/wo pelvis)* Impression dictated by: Junito Sims Jr., M.D.02/02/2022 11:14 AM [facility] [employer] [facility] Other XR hip RT min 2V(w/wo pelvis)* Dictation Location: [facility] [employer] Other XR hip RT min 2V(w/wo pelvis)* Transcribed By: ALDEN 02/02/22 1114 [facility] [employer] Other XR hip RT min 2V(w/wo pelvis)* Dictated By: Junito Sims Jr, MD 02/02/22 [facility] [employer] Other XR hip RT min 2V(w/wo pelvis)* Signed By: [employer] Other XR hip RT min 2V(w/wo pelvis)* 02/02/22 1114 [employer] Other XR knee BI 2Von 02-02-2022 XR knee BI 2V 65094) XR/XR knee BI 2V: Z96.653 [employer] Other XR knee BI 2V BILATERAL KNEES - 2 views each [employer] Other XR knee BI 2V CLINICAL HISTORY: Follow-up bilateral TKA [employer] Other XR knee BI 2V COMPARISON: Knee ser ies 02/02/2021 [employer] Other XR knee BI 2V FINDINGS: Bilateral knee prostheses are in place without radiographic complication. No acute bony [employer] Other XR knee BI 2V process is seen. No joint effusions. [employer] Other XR knee BI 2V X R/XR knee BI 2V [employer] Other XR knee BI 2V IMPRESSION: [employer] Other XR knee BI 2V NO EVIDENCE OF HARDW ARE COMPLICATION. [employer] Other XR knee BI 2V Impression dictated by: Abad Perez Jr., D.OAlejo02/02/2022 10:27 AM [employer] Other XR knee BI 2V Dictation Location: [place] [address] [employer] Other XR knee BI 2V Transcribed By: PWS 02/02/22 [facility] [employer] Other XR knee BI 2V Dictated By: Abad Perez Jr, DO 02/02/22 [facility] [employer] Other XR knee BI 2V Signed By: [employer] Other XR knee BI 2V 02/02/22 [facility] [employer] Other Vital Signs Date Time Vital Sign Value Performing Clinician Facility 08-05-2024 09:16-0400 Body height 188 cm Venkat Paredes DPM Work Phone: [facility] [employer] 08-05-2024 09:16-0400 Body mass index (BMI) [Ratio] 38.77 kg/m2 Venkat Paredes DPM Work Phone: [facility] [employer] 08-05-2024 09:16-0400 Body weight 136.99 kg Venkat Paredes DPM Work Phone: [facility] [employer] 08-05-2024 09:16-0400 Diastolic blood pressure 80 mm[Hg] Venkat Tyson DPM Work Phone: [facility] 08-05-2024 09:16-0400 Heart rate 88 /min Venkat Tyson DPM Work Phone: [facility] 08-05-2024 09:16-0400 Systolic blood pressure 129 mm[Hg] Venkat Paredes DPM Work Phone: [facility] 05-09-2024 09:50-0400 Blood Pressure Location Patito Lue [facility] 05-09-2024 09:50-0400 Body temperature 96.8 [degF] Patito Lue [facility] 05-09-2024 09:50-0400 Diastolic blood pressure 80 mm[Hg] Patito Lue [facility] 05-09-2024 09:50-0400 Heart rate 78 /min Patito Lue [facility] 05-09-2024 09:50-0400 Respiratory rate 19 /min Patito Lue [facility] 05-09-2024 09:50-0400 Systolic blood pressure 138 mm[Hg] Patito Lue [facility] 12-04-2023 08:47-0500 Body height 187.96 cm MD Jeff Terrell Work Phone: [facility] 12-04-2023 08:47-0500 Body mass index (BMI) [Ratio] 40.4 kg/m2 MD Jeff Terrell Work Phone: [facility] 12-04-2023 08:47-0500 Body weight 142.88 kg MD Jeff Terrell Work Phone: [facility] 11-03-2023 09:58-0500 Blood Pressure Location Patito Lue [facility] 11-03-2023 09:58-0500 Diastolic blood pressure 82 mm[Hg] Patito Lue [facility] 11-03-2023 09:58-0500 Heart rate 80 /min Patito Lue [facility] 11-03-2023 09:58-0500 Systolic blood pressure 128 mm[Hg] Patito Lue [facility] 10-30-2023 10:43-0500 Diastolic blood pressure 96 mm[Hg] MD Jeff Terrell Work Phone: [facility] 10-30-2023 10:43-0500 Heart rate 72 /min MD Jeff Terrell Work Phone: [facility] 10-30-2023 10:43-0500 Respiratory rate 18 /min MD Jeff Terrell Work Phone: [facility] 10-30-2023 10:43-0500 SaO2% (BldA) [Mass fraction] 93 % MD Jeff Terrell Work Phone: [facility] 10-30-2023 10:43-0500 Systolic blood pressure 154 mm[Hg] MD Jeff Terrell Work Phone: [facility] 10-30-2023 07:55-0500 Body height 187.96 cm MD Jeff Terrell Work Phone: [facility] 10-30-2023 07:55-0500 Body temperature 97.9 [degF] MD Jeff Terrell Work Phone: [facility] 10-30-2023 07:55-0500 Body weight 144.24 kg MD Jeff Terrell Work Phone: [facility] 10-25-2023 10:45-0500 Body height 187.96 cm MD Jeff Terrell Work Phone: [facility] 09-26-2023 11:58-0500 Diastolic blood pressure 82 mm[Hg] Patito Lue [facility] 09-26-2023 11:58-0500 Heart rate 72 /min Patito Lue [facility] 09-26-2023 11:58-0500 Mean blood pressure 104 mm[Hg] Patito Lue [facility] 09-26-2023 11:58-0500 Respiratory rate 18 /min Patito Lue [facility] 09-26-2023 11:58-0500 SaO2% (BldA) [Mass fraction] 96 % Patito Lue [facility] 09-26-2023 11:58-0500 Systolic blood pressure 148 mm[Hg] Patito Lue [facility] 09-26-2023 11:12-0500 Heart rate 80 /min Patito Lue [facility] 09-26-2023 11:12-0500 SaO2% (BldA) [Mass fraction] 94 % Patito Lue [facility] 09-26-2023 11:10-0500 Body temperature 97.7 [degF] Patito Lue [facility] 09-26-2023 11:10-0500 Respiratory rate 20 /min Patito Lue [facility] 09-26-2023 11:08-0500 Blood Pressure Location Patito Lue [facility] 12-12-2023 11:08-0500 Diastolic blood pressure 88 mm[Hg] Patito Lue [facility] 09-26-2023 11:08-0500 Mean blood pressure 112 mm[Hg] Patito Lue [facility] 09-26-2023 11:08-0500 Systolic blood pressure 160 mm[Hg] Patito Lue [facility] 09-26-2023 11:08-0500 Mean blood pressure 112 mm[Hg] Patito Lue [facility] 09-26-2023 11:00-0500 Body temperature 98.24 [degF] Patito Lue [facility] 09-26-2023 11:00-0500 Diastolic blood pressure 89 mm[Hg] Patito Lue [facility] 09-26-2023 11:00-0500 Heart rate 79 /min Patito Lue [facility] 09-26-2023 11:00-0500 Respiratory rate 11 /min Patito Lue [facility] 09-26-2023 11:00-0500 SaO2% (BldA) [Mass fraction] 93 % Patito Lue [facility] 09-26-2023 11:00-0500 Systolic blood pressure 157 mm[Hg] Patito Lue [facility] 09-26-2023 10:50-0500 Blood Pressure Location Patito Lue [facility] 09-26-2023 10:50-0500 Respiratory rate 10 /min Patito Lue [facility] 09-26-2023 10:45-0500 Respiratory rate 17 /min Patito Lue [facility] 09-26-2023 10:34-0500 Body temperature 97.7 [degF] Patito Sweet [facility] 09-26-2023 10:30-0500 Respiratory rate 16 /min Patito Christiee [facility] 09-26-2023 07:28-0500 Mean blood pressure 115 mm[Hg] Patito Christiee [facility] 09-20-2023 11:00-0500 Body height Janine Maynard Other [facility] [employer] Other 09-20-2023 11:00-0500 Body height 187.96 cm MD Jeff Terrell Work Phone: [facility] 09-06-2023 08:45-0500 Body height Gaurav Davida Other [facility] [employer] Other 09-06-2023 08:45-0500 Body height 187.96 cm MD Jeff Terrell Work Phone: [facility] 09-06-2023 08:45-0500 Body mass index (BMI) [Ratio] 39.8 kg/m2 Gaurav Scott Other [facility] [employer] Other 09-06-2023 08:45-0500 Body weight 140.62 kg Gaurav Scott Other [facility] [employer] Other 09-06-2023 08:45-0500 Body weight 140.61 kg MD Jeff Terrell Work Phone: [facility] 08-29-2023 13:10-0500 Diastolic blood pressure 86 mm[Hg] MD Jeff Terrell Work Phone: [facility] 08-29-2023 13:10-0500 Heart rate 71 /min MD Jeff Terrell Work Phone: [facility] 08-29-2023 13:10-0500 Respiratory rate 16 /min MD Jeff Terrell Work Phone: [facility] 08-29-2023 13:10-0500 SaO2% (BldA) [Mass fraction] 96 % MD Jeff Terrell Work Phone: [facility] 08-29-2023 13:10-0500 Systolic blood pressure 145 mm[Hg] MD Jeff Terrell Work Phone: [facility] 08-29-2023 12:25-0500 Inhaled oxygen flow rate 8 L/min MD Jeff Terrell Work Phone: [facility] 08-29-2023 11:16-0500 Body height 187.96 cm MD Jeff Terrell Work Phone: [facility] 08-29-2023 11:16-0500 Body mass index (BMI) [Ratio] 39.3 kg/m2 MD Jeff Terrell Work Phone: [facility] 08-29-2023 11:16-0500 Body weight 139 kg MD Jeff Terrell Work Phone: [facility] 08-29-2023 09:20-0500 Body temperature 98.5 [degF] MD Jeff Terrell Work Phone: [facility] 2023 15:32-0500 Body height 187.96 cm MD Jeff Terrell Work Phone: [facility] 2023 15:32-0500 Body temperature 98.6 [degF] MD Jeff Terrell Work Phone: [facility] 2023 15:32-0500 Body weight 139.25 kg MD Jeff Terrell Work Phone: [facility] 2023 15:32-0500 Diastolic blood pressure 92 mm[Hg] MD Jeff Terrell Work Phone: [facility] 2023 15:32-0500 Heart rate 83 /min MD Jeff Terrell Work Phone: [facility] 2023 15:32-0500 Respiratory rate 16 /min MD Jeff Terrell Work Phone: [facility] 2023 15:32-0500 SaO2% (BldA) [Mass fraction] 96 % MD Jeff Terrell Work Phone: [facility] 2023 15:32-0500 Systolic blood pressure 178 mm[Hg] MD Jeff Terrell Work Phone: [facility] 08-18-2023 10:14-0400 Diastolic blood pressure 81 mm[Hg] Patito Lue [facility] 08-18-2023 10:14-0400 Heart rate 72 /min Patito Lue [facility] 08-18-2023 10:14-0400 Systolic blood pressure 136 mm[Hg] Patito Lue [facility] 06-30-2023 09:15-0400 Body height Gauravrolly Scott Other [facility] [employer] Other 06-30-2023 09:15-0400 Body mass index (BMI) [Ratio] 36.84 kg/m2 Gaurav Scott Other [facility] [employer] Other 06-30-2023 09:15-0400 Body weight 130.18 kg Gaurav Scott Other [facility] [employer] Other 04-25-2023 10:43-0400 Diastolic blood pressure 95 mm[Hg] MD Jeff Terrell Work Phone: [facility] 04-25-2023 10:43-0400 Heart rate 71 /min MD Jeff Terrell Work Phone: [facility] 04-25-2023 10:43-0400 Respiratory rate 16 /min MD Jeff Terrell Work Phone: [facility] 04-25-2023 10:43-0400 SaO2% (BldA) [Mass fraction] 95 % MD Jeff Terrell Work Phone: [facility] 04-25-2023 10:43-0400 Systolic blood pressure 146 mm[Hg] MD Jeff Terrell Work Phone: [facility] 04-25-2023 10:13-0400 Inhaled oxygen flow rate 6 L/min MD Jeff Terrell Work Phone: [facility] 04-25-2023 09:01-0400 Body mass index (BMI) [Ratio] 39.4 kg/m2 MD Jeff Terrell Work Phone: [facility] 04-25-2023 08:57-0400 Body height 187.96 cm MD Jeff Terrell Work Phone: [facility] 04-25-2023 08:57-0400 Body weight 139.25 kg MD Jeff Terrell Work Phone: [facility] 04-25-2023 08:17-0400 Body temperature 97.6 [degF] MD Jeff Terrell Work Phone: [facility] 03-24-2023 09:45-0400 Body height Gaurav Scott Other [facility] [employer] Other 03-24-2023 09:45-0400 Body mass index (BMI) [Ratio] 36.84 kg/m2 Gaurav Scott Other [employer] Other 03-24-2023 09:45-0400 Body weight 130.18 kg Gaurav Scott Other [employer] Other 03-14-2023 15:16-0400 Diastolic blood pressure 88 mm[Hg] MD Jeff Terrell Work Phone: [facility] 03-14-2023 15:16-0400 Heart rate 76 /min MD Jeff Terrell Work Phone: [facility] 03-14-2023 15:16-0400 Respiratory rate 16 /min MD Jeff Terrell Work Phone: [facility] 03-14-2023 15:16-0400 SaO2% (BldA) [Mass fraction] 98 % MD Jeff Terrell Work Phone: [facility] 03-14-2023 15:16-0400 Systolic blood pressure 159 mm[Hg] MD Jeff Terrell Work Phone: [facility] 03-14-2023 14:32-0400 Inhaled oxygen flow rate 6 L/min MD Jeff Terrell Work Phone: [facility] 03-14-2023 13:27-0400 Body height 187.96 cm MD Jeff Terrell Work Phone: [facility] 03-14-2023 13:27-0400 Body weight 139.25 kg MD Jeff Terrell Work Phone: [facility] 03-14-2023 13:21-0400 Body mass index (BMI) [Ratio] 17.9 kg/m2 MD Jeff Terrell Work Phone: [facility] 03-14-2023 11:29-0400 Body temperature 98.5 [degF] MD Jeff Terrell Work Phone: [facility] 02-24-2023 12:15-0400 Body height Gaurav Scott Other [facility] [employer] Other 02-24-2023 12:15-0400 Body mass index (BMI) [Ratio] 36.84 kg/m2 Gaurav Scott Other [employer] Other 02-24-2023 12:15-0400 Body weight 130.18 kg Gaurav Scott Other [facility] [employer] Other 02-07-2023 17:15-0400 Body height Tomi Leach Other [facility] [employer] Other 01-30-2023 14:03-0400 Body height 187.96 cm MD Jeff Terrell Work Phone: [facility] 01-30-2023 14:03-0400 Body temperature 97.8 [degF] MD Jeff Terrell Work Phone: [facility] 01-30-2023 14:03-0400 Body weight 138 kg MD Jeff Terrell Work Phone: [facility] 01-30-2023 14:03-0400 Diastolic blood pressure 92 mm[Hg] MD Jeff Terrell Work Phone: [facility] 01-30-2023 14:03-0400 Heart rate 86 /min MD Jeff Terrell Work Phone: [facility] 01-30-2023 14:03-0400 Respiratory rate 18 /min MD Jeff Terrell Work Phone: [facility] 01-30-2023 14:03-0400 SaO2% (BldA) [Mass fraction] 95 % MD Jeff Terrell Work Phone: [facility] 01-30-2023 14:03-0400 Systolic blood pressure 186 mm[Hg] MD Jeff Terrell Work Phone: [facility] 12-21-2022 07:41-0500 Blood Pressure Location Patito Lue [facility] 12-21-2022 07:41-0500 Diastolic blood pressure 87 mm[Hg] Patito Lue [facility] 12-21-2022 07:41-0500 Heart rate 72 /min Patito Lue [facility] 12-21-2022 07:41-0500 Systolic blood pressure 137 mm[Hg] Patito Sweet [facility] 11-29-2022 15:53-0500 Diastolic blood pressure 91 mm[Hg] MD Jeff Terrell Work Phone: [facility] 11-29-2022 15:53-0500 Heart rate 95 /min MD Jeff Terrell Work Phone: [facility] 11-29-2022 15:53-0500 Respiratory rate 16 /min MD Jeff Terrell Work Phone: [facility] 11-29-2022 15:53-0500 SaO2% (BldA) [Mass fraction] 93 % MD Jeff Terrell Work Phone: [facility] 11-29-2022 15:53-0500 Systolic blood pressure 142 mm[Hg] MD Jeff Terrell Work Phone: [facility] 11-29-2022 15:00-0500 Body temperature 97.2 [degF] MD Jeff Terrell Work Phone: [facility] 11-29-2022 14:35-0500 Inhaled oxygen flow rate 8 L/min MD Jeff Terrell Work Phone: [facility] 11-29-2022 12:37-0500 Body height 187.96 cm MD Jeff Terrell Work Phone: [facility] 11-29-2022 12:37-0500 Body mass index (BMI) [Ratio] 38.1 kg/m2 MD Jeff Terrell Work Phone: [facility] 11-29-2022 12:37-0500 Body weight 134.71 kg MD Jeff Terrell Work Phone: [facility] 11-29-2022 00:00-0500 Body weight 533 mg MD Jeff Terrell Work Phone: [facility] 11-24-2022 10:00-0500 Body height Tomi Leach Other [facility] Other 11-24-2022 10:00-0500 Body mass index (BMI) [Ratio] 36.84 kg/m2 Tomi Leach Other [facility] [employer] Other 11-24-2022 10:00-0500 Body weight 130.18 kg Tomi Leach Other [facility] Other 11-02-2022 09:55-0500 Diastolic blood pressure 94 mm[Hg] MD Jeff Terrell Work Phone: [facility] 11-02-2022 09:55-0500 Heart rate 61 /min MD Jeff Terrell Work Phone: [facility] 11-02-2022 09:55-0500 Respiratory rate 18 /min MD Jeff Terrell Work Phone: [facility] 11-02-2022 09:55-0500 SaO2% (BldA) [Mass fraction] 96 % MD Jeff Terrell Work Phone: [facility] 11-02-2022 09:55-0500 Systolic blood pressure 153 mm[Hg] MD Jeff Terrell Work Phone: [facility] 11-02-2022 08:12-0500 Body height 187.96 cm MD Jeff Terrell Work Phone: [facility] 11-02-2022 08:12-0500 Body weight 134.71 kg MD Jeff Terrell Work Phone: [facility] 09-30-2022 16:42-0500 Body height 187.96 cm MD Jeff Terrell Work Phone: [facility] 09-30-2022 16:42-0500 Body mass index (BMI) [Ratio] 38.5 kg/m2 MD Jeff Terrell Work Phone: [facility] 09-30-2022 16:42-0500 Body weight 136.07 kg MD Jeff Terrell Work Phone: [facility] 09-30-2022 14:40-0500 Diastolic blood pressure 96 mm[Hg] MD Jeff Terrell Work Phone: [facility] 09-30-2022 14:40-0500 Heart rate 64 /min MD Jeff Terrell Work Phone: [facility] 09-30-2022 14:40-0500 Respiratory rate 18 /min MD Jeff Terrell Work Phone: [facility] 09-30-2022 14:40-0500 SaO2% (BldA) [Mass fraction] 96 % MD Jeff Terrell Work Phone: [facility] 09-30-2022 14:40-0500 Systolic blood pressure 148 mm[Hg] MD Jeff Terrell Work Phone: [facility] 09-30-2022 10:48-0500 Body height 187.96 cm MD Jeff Terrell Work Phone: [facility] 09-30-2022 10:48-0500 Body temperature 98.1 [degF] MD Jeff Terrell Work Phone: [facility] 09-30-2022 10:48-0500 Body weight 136.07 kg MD Jeff Terrell Work Phone: [facility] 09-21-2022 08:22-0500 Blood Pressure Location Patito Lue [facility] 09-21-2022 08:22-0500 Diastolic blood pressure 80 mm[Hg] Patito Lue [facility] 09-21-2022 08:22-0500 Heart rate 64 /min Patito Lue [facility] 09-21-2022 08:22-0500 Respiratory rate 16 /min Patito Lue [facility] 09-21-2022 08:22-0500 Systolic blood pressure 125 mm[Hg] Patito Lue [facility] 08-23-2022 17:13-0500 Diastolic blood pressure 94 mm[Hg] MD Jeff Terrell Work Phone: [facility] 08-23-2022 17:13-0500 Heart rate 70 /min MD Jeff Terrell Work Phone: [facility] 08-23-2022 17:13-0500 Respiratory rate 16 /min MD Jeff Terrell Work Phone: [facility] 08-23-2022 17:13-0500 SaO2% (BldA) [Mass fraction] 95 % MD Jeff Terrell Work Phone: [facility] 08-23-2022 17:13-0500 Systolic blood pressure 148 mm[Hg] MD Jeff Terrell Work Phone: [facility] 08-23-2022 16:16-0500 Body height 187.96 cm MD Jeff Terrell Work Phone: [facility] 08-23-2022 16:16-0500 Body mass index (BMI) [Ratio] 38.2 kg/m2 MD Jeff Terrell Work Phone: [facility] 08-23-2022 16:16-0500 Body weight 135.3 kg MD Jeff Terrell Work Phone: [facility] 08-23-2022 12:17-0500 Body temperature 99.4 [degF] MD Jeff Terrell Work Phone: [facility] 08-11-2022 09:20-0400 Body height Ramiro George Other [facility] [employer] Other 08-11-2022 09:20-0400 Body mass index (BMI) [Ratio] 37.49 kg/m2 Ramiro George Other [facility] [employer] Other 08-11-2022 09:20-0400 Body weight 132.45 kg Ramiro George Other [facility] [employer] Other 08-10-2022 09:49-0400 Blood Pressure Location Patito Lue [facility] 08-10-2022 09:49-0400 Diastolic blood pressure 87 mm[Hg] Patito Lue [facility] 08-10-2022 09:49-0400 Heart rate 76 /min Patito Lue [facility] 08-10-2022 09:49-0400 Respiratory rate 16 /min Patito Lue [facility] 08-10-2022 09:49-0400 Systolic blood pressure 134 mm[Hg] Patito Lue [facility] 08-02-2022 15:15-0400 Body height Tomi Leach Other [facility] [employer] Other 07-26-2022 08:48-0400 Diastolic blood pressure 85 mm[Hg] MD Jeff Terrell Work Phone: [facility] 07-26-2022 08:48-0400 Heart rate 69 /min MD Jeff Terrell Work Phone: [facility] 07-26-2022 08:48-0400 Respiratory rate 16 /min MD Jeff Terrell Work Phone: [facility] 07-26-2022 08:48-0400 SaO2% (BldA) [Mass fraction] 95 % MD Jeff Terrell Work Phone: [facility] 07-26-2022 08:48-0400 Systolic blood pressure 137 mm[Hg] MD Jeff Terrell Work Phone: [facility] 07-26-2022 08:05-0400 Inhaled oxygen flow rate 3 L/min MD Jeff Terrell Work Phone: [facility] 07-26-2022 06:41-0400 Body height 187.96 cm MD Jeff Terrell Work Phone: [facility] 07-26-2022 06:41-0400 Body weight 130.18 kg MD Jeff Terrell Work Phone: [facility] 07-12-2022 08:29-0400 Blood Pressure Location Patito Lue [facility] 07-12-2022 08:29-0400 Diastolic blood pressure 84 mm[Hg] Patito Lue [facility] 07-12-2022 08:29-0400 Heart rate 72 /min Patito Lue [facility] 07-12-2022 08:29-0400 Systolic blood pressure 136 mm[Hg] Patito Lue [facility] 06-23-2022 12:14-0400 Diastolic blood pressure 83 mm[Hg] Ronak Zumbar [facility] 06-23-2022 12:14-0400 Heart rate 60 /min Ronak Zumbar [facility] 06-23-2022 12:14-0400 Mean blood pressure 104 mm[Hg] Ronak Zumbar [facility] 06-23-2022 12:14-0400 Respiratory rate 16 /min Ronak Zumbar [facility] 06-23-2022 12:14-0400 Systolic blood pressure 146 mm[Hg] Ronak Zumbar [facility] 06-14-2022 10:42-0400 Diastolic blood pressure 62 mm[Hg] MD Jeff Terrell Work Phone: [facility] 06-14-2022 10:42-0400 Heart rate 65 /min MD Jeff Terrell Work Phone: [facility] 06-14-2022 10:42-0400 Respiratory rate 20 /min MD Jeff Terrell Work Phone: [facility] 06-14-2022 10:42-0400 SaO2% (BldA) [Mass fraction] 98 % MD Jeff Terrell Work Phone: [facility] 06-14-2022 10:42-0400 Systolic blood pressure 150 mm[Hg] MD Jeff Terrell Work Phone: [facility] 06-14-2022 10:01-0400 Inhaled oxygen flow rate 3 L/min MD Jeff Terrell Work Phone: [facility] 06-14-2022 08:29-0400 Body height 187.96 cm MD Jeff Terrell Work Phone: [facility] 06-14-2022 08:29-0400 Body weight 130.18 kg MD Jeff Terrell Work Phone: [facility] 05-26-2022 10:12-0400 Diastolic blood pressure 66 mm[Hg] Ronak Zumbar [facility] 05-26-2022 10:12-0400 Heart rate 70 /min Ronak Zumbar [facility] 05-26-2022 10:12-0400 Mean blood pressure 83 mm[Hg] Ronak Zumbar [facility] 05-26-2022 10:12-0400 Respiratory rate 16 /min Ronak Rao [facility] 05-26-2022 10:12-0400 Systolic blood pressure 118 mm[Hg] Ronak Rao [facility] 05-09-2022 10:30-0400 Body height Gaurav Scott Other [facility] [employer] Other 05-09-2022 10:30-0400 Body mass index (BMI) [Ratio] 37.23 kg/m2 Gaurav Davida Other [facility] Other 05-09-2022 10:30-0400 Body weight 131.54 kg Gaurav Davida Other [facility] Other 03-16-2022 13:00-0400 Body height Gaurav Davida Other [employer] Other 02-16-2022 15:00-0400 Body height Gaurav Davida Other [employer] Other 02-16-2022 15:00-0400 Body mass index (BMI) [Ratio] 39.54 kg/m2 Gaurav Davida Other [employer] Other 02-16-2022 15:00-0400 Body weight 139.71 kg Gaurav Davida Other [employer] Other 02-02-2022 09:15-0400 Body height Gaurav Davida Other [employer] Other 02-02-2022 09:15-0400 Body mass index (BMI) [Ratio] 39.54 kg/m2 Gaurav Davida Other [employer] Other 02-02-2022 09:15-0400 Body weight 139.71 kg Gaurav Scott Other [employer] Other Encounters Encounter Date Encounter Type Care Provider Facility Start: 11-08-2024 ambulatory Patito Sweet Facility:[facility] Start: 08-05-2024 End: 08-05-2024 Bamboo flowsheet Venkat Paredes DPM Work Phone: [facility] Start: 08-05-2024 End: 08-05-2024 Bamboo flowsheet Venkat Paredes DPM Work Phone: [facility] Start: 08-05-2024 End: 08-05-2024 ambulatory VENKAT PAREDES Not Available Start: 08-05-2024 End: 08-05-2024 Office outpatient new 30 minutes Venkat Paredes DPM Work Phone: [facility] Comment on above: 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 (Primary Dx); Plantar fasciitis; Paronychia, toe, left; Paronychia, toe, right Start: 07-08-2024 End: 07-08-2024 ambulatory MD Jeff Terrell Work Phone: [facility] Work Phone: Start: 07-08-2024 End: 07-08-2024 Discharged Recurring MD Jeff Terrell Work Phone: [facility] Start: 06-12-2024 End: 06-12-2024 ambulatory MD Jeff Terrell Work Phone: [facility] Work Phone: Start: 06-12-2024 End: 06-12-2024 Patient encounter procedure MD Jeff Terrell Work Phone: [facility] Work Phone: Start: 06-06-2024 Registered Recurring MD Bernie Terrell Work Phone: [facility] Start: 05-20-2024 End: 05-20-2024 ambulatory MD Jeff Terrell Work Phone: [facility] Work Phone: Start: 05-20-2024 End: 05-20-2024 Patient encounter procedure MD Jeff Terrell Work Phone: [facility] Work Phone: Start: 05-09-2024 End: 05-09-2024 ambulatory Patito Sweet Facility: [facility] Start: 05-09-2024 End: 05-09-2024 Patient encounter procedure Patito Sweet [facility] Start: 05-07-2024 End: 05-07-2024 Patient encounter procedure MD Jeff Terrell Work Phone: [facility] [place] Work Phone: Start: 05-07-2024 End: 05-07-2024 ambulatory MD Jeff Terrell Work Phone: [facility] Work Phone: Start: 04-29-2024 End: 04-29-2024 ambulatory MD Jeff Terrell Work Phone: [facility] Work Phone: Start: 04-29-2024 End: 04-29-2024 Patient encounter procedure MD Jeff Terrell Work Phone: [facility] Work Phone: Start: 03-13-2024 End: 03-13-2024 ambulatory MD Jeff Terrell Work Phone: [facility] Work Phone: Start: 03-13-2024 End: 03-13-2024 Patient encounter procedure MD Jeff Terrell Work Phone: [facility] Work Phone: Start: 03-13-2024 End: 03-13-2024 Patient encounter procedure MD Jeff Terrell Work Phone: [facility] Start: 03-13-2024 End: 03-13-2024 ambulatory MD Jeff Terrell Work Phone: [facility] Work Phone: Start: 02-19-2024 End: 02-19-2024 ambulatory MD Jeff Terrell Work Phone: [facility] Work Phone: Start: 02-19-2024 End: 02-19-2024 Patient encounter procedure MD Jeff Terrell Work Phone: [facility] Work Phone: Start: 02-19-2024 Non-patient / Non-visit [facility] Work Phone: Start: 02-01-2024 End: 02-01-2024 ambulatory MD Jeff Terrell Work Phone: [facility] Work Phone: Start: 02-01-2024 End: 02-01-2024 Patient encounter procedure MD Jeff Terrell Work Phone: [facility] Work Phone: Start: 01-10-2024 End: 01-10-2024 ambulatory MD Jeff Terrell Work Phone: [facility] Work Phone: Start: 01-10-2024 End: 01-10-2024 Patient encounter procedure MD Jeff Terrell Work Phone: [facility] Work Phone: Start: 12-18-2023 End: 12-18-2023 ambulatory Garrett MICHAEL Facility:[facility] Start: 12-06-2023 End: 12-06-2023 ambulatory MD Jeff Terrell Work Phone: [facility] Work Phone: Start: 12-06-2023 End: 12-06-2023 Patient encounter procedure MD Jeff Terrell Work Phone: [facility] Work Phone: Start: 12-04-2023 End: 12-04-2023 Patient encounter procedure MD Jeff Terrell Work Phone: [facility] Work Phone: Start: 12-04-2023 End: 12-04-2023 ambulatory MD Jeff Terrell Work Phone: [facility] Work Phone: Start: 12-04-2023 Registered Recurring MD Bernie Terrell Work Phone: [facility] Start: 11-23-2023 End: 11-23-2023 Patient encounter procedure MD Jeff Terrell Work Phone: [facility] [place] Work Phone: Start: 11-23-2023 End: 11-23-2023 ambulatory Jeff Terrell Facility:[facility] Start: 11-10-2023 End: 11-10-2023 ambulatory Melissa Castellano Other [employer] Other Start: 11-10-2023 Encounter for other preprocedural examination Melissa Castellano [facility] Start: 11-10-2023 Postop follow up vis it related to original px Melissa Castellano [facility] Start: 11-03-2023 End: 11-03-2023 ambulatory Patito Sweet Facility:[facility] Start: 11-03-2023 End: 11-03-2023 Patient encounter procedure Patito Sweet [facility] Start: 10-30-2023 End: 10-30-2023 Admission to same day surgery center MD Jeff Terrell Work Phone: [facility] [place] Start: 10-30-2023 End: 10-30-2023 ambulatory MD Jeff Terrell Work Phone: [facility] Work Phone: Start: 10-25-2023 End: 10-25-2023 ambulatory Melissa Castellano Other [facility] Other Start: 10-25-2023 Encounter for other preprocedural examination Melissa Castellano [facility] Start: 10-25-2023 Office outpatient ne w 45 minutes Melissa Castellano [facility] Start: 10-25-2023 Telephone encounter Melissa Castellano [facility] Start: 10-25-2023 End: 10-25-2023 Patient encounter procedure MD Jeff Terrell Work Phone: [facility] Work Phone: Start: 09-26-2023 End: 09-26-2023 Admission to same day surgery center Patito Sweet [facility] Start: 09-26-2023 End: 09-26-2023 ambulatory Patito Sweet Facility:[facility] Start: 09-20-2023 End: 09-20-2023 ambulatory Janine Maynard Other [facility] Other Start: 09-20-2023 Office outpatient vi sit 15 minutes Janine Maynard [facility] Start: 09-20-2023 End: 09-20-2023 Patient encounter procedure MD Jeff Terrell Work Phone: [facility] Work Phone: Start: 09-15-2023 End: 09-15-2023 Patient encounter procedure MD Jeff Terrell Work Phone: [facility] [place] Work Phone: Start: 09-15-2023 End: 09-15-2023 ambulatory MD Jeff Terrell Work Phone: [facility] Work Phone: Start: 09-06-2023 End: 09-06-2023 ambulatory Gaurav Scott Other [employer] Other Start: 09-06-2023 Postop follow up vis it related to original px Gaurav cSott [facility] Start: 09-06-2023 End: 09-06-2023 Patient encounter procedure MD Jeff Terrell Work Phone: [facility] Work Phone: Start: 08-29-2023 End: 08-29-2023 Admission to same day surgery center MD Jeff Terrell Work Phone: [facility] Start: 08-29-2023 End: 08-29-2023 ambulatory MD Jeff Terrell Work Phone: [facility] Work Phone: Start: 2023 End: 2023 Emergency department patient visit MD Jeff Terrell Work Phone: [facility]Emergency Room Work Phone: Start: 08-21-2023 End: 08-21-2023 ambulatory Referral Self Facility:[facility] Start: 08-21-2023 Registered Recurring MD Bernie Terrell Work Phone: [facility] Start: 08-18-2023 End: 08-18-2023 ambulatory Patito Sweet Facility: [facility] Start: 08-18-2023 End: 08-18-2023 Patient encounter procedure Patito Sweet [facility] Start: 08-15-2023 End: 08-15-2023 Patient encounter procedure MD Jeff Terrell Work Phone: [facility]Pre-Surgical Testing Work Phone: Start: 08-15-2023 End: 08-15-2023 ambulatory MD Jeff Terrell Work Phone: [facility] Work Phone: Start: 07-26-2023 End: 07-26-2023 ambulatory Gaurav Scott Other [facility] [employer] [facility] Other Start: 07-26-2023 Office outpatient vi sit 25 minutes Gaurav Scott [facility] Start: 07-24-2023 End: 07-24-2023 ambulatory MD Jeff Terrell Work Phone: [facility] Work Phone: Start: 07-24-2023 End: 07-24-2023 Discharged Recurring MD Jeff Terrell Work Phone: [facility] Start: 07-24-2023 Registered Recurring MD Bernie Terrell Work Phone: [facility] Start: 07-20-2023 Registered Recurring MD Bernie Terrell Work Phone: [facility] Start: 07-13-2023 End: 07-13-2023 ambulatory JANINE GARCIA Facility: [place] Start: 07-13-2023 End: 07-13-2023 Patient encounter procedure JANINE GARCIA [facility] Start: 07-11-2023 ambulatory Patito Sweet Facility:[facility] Start: 07-11-2023 End: 07-11-2023 ambulatory Patito Sweet Facility:[id number] Start: 07-06-2023 End: 07-06-2023 ambulatory Tomi Leach Other [facility] Other Start: 07-06-2023 Office outpatient vi sit 15 minutes Tomi Leach [facility] Start: 06-30-2023 End: 06-30-2023 ambulatory Gaurav Scott Other [employer] Other Start: 06-30-2023 Office outpatient vi sit 25 minutes Gaurav Scott [facility] Start: 06-12-2023 End: 06-12-2023 ambulatory Gaurav Scott Other [facility] [employer] Other Start: 06-12-2023 Postop follow up vis it related to original px Gaurav Scott [facility] Start: 06-07-2023 (Procedure) Short Tomi Leach [facility] Start: 06-07-2023 End: 06-07-2023 ambulatory Tomi Leach Other [facility] [employer] Other Start: 05-31-2023 End: 05-31-2023 ambulatory Patito Sweet Facility:[facility] Start: 05-31-2023 End: 05-31-2023 Patient encounter procedure [facility] Start: 05-25-2023 Telephone encounter Tomi Leach [facility] Start: 05-25-2023 End: 05-25-2023 ambulatory MD Jeff Terrell Work Phone: [facility] Work Phone: Start: 05-25-2023 End: 05-25-2023 Patient encounter procedure MD Jeff Terrell Work Phone: [facility] Start: 04-25-2023 End: 04-25-2023 Admission to same day surgery center MD Jeff Terrell Work Phone: [facility]gery [facility] Start: 04-25-2023 End: 04-25-2023 ambulatory MD Jeff Terrell Work Phone: [facility] Work Phone: Start: 03-31-2023 End: 03-31-2023 ambulatory MD Jeff Terrell Work Phone: [facility] Work Phone: Start: 03-31-2023 End: 03-31-2023 Patient encounter procedure MD Jeff Terrell Work Phone: [facility] [place] Work Phone: Start: 03-24-2023 End: 03-24-2023 ambulatory Gaurav Scott Other [facility] [employer] Other Start: 03-24-2023 Encounter for other preprocedural examination Gaurav Scott [facility] Start: 03-24-2023 Office outpatient vi sit 25 minutes [facility] Start: 03-14-2023 End: 03-14-2023 Admission to same day surgery center MD Jeff Terrell Work Phone: [facility] Start: 03-14-2023 End: 03-14-2023 ambulatory MD Jeff Terrell Work Phone: [facility] Work Phone: Start: 03-03-[address] JEFF TERRELL . Facili ty:[facility] Start: 02-28-2023 End: 02-28-2023 ambulatory MD Jeff Terrell Work Phone: [facility] Work Phone: Start: 02-28-2023 End: 02-28-2023 Patient encounter procedure MD Jeff Terrell Work Phone: [facility]Surgical Testing Work Phone: Start: 02-24-2023 End: 02-24-2023 ambulatory Gaurav Scott Other [facility] Other Start: 02-24-2023 Office outpatient vi sit 25 minutes Gaurav Scott [facility] Start: 02-07-2023 End: 02-07-2023 ambulatory Tomi Leach Other [facility] Other Start: 02-07-2023 Office outpatient vi sit 25 minutes Tomi Leach [facility] Start: 02-07-2023 Telephone encounter Tomi Leach [facility] Start: 02-01-2023 End: 02-01-2023 ambulatory Gaurav Scott Other [facility] [employer] [facility] Other Start: 02-01-2023 Office outpatient vi sit 25 minutes Gaurav Scott [facility] Start: 01-30-2023 End: 01-30-2023 Emergency department patient visit MD Jeff Terrell Work Phone: [facility]-Emergency Room Work Phone: Start: 01-16-2023 End: 01-16-2023 Patient encounter procedure Patito Sweet [facility] Start: 01-11-2023 End: 01-11-2023 ambulatory SRIDHAR MCLAUGHLIN Facility: Start: 01-07-2023 Encounter for preprocedural laboratory examination PATITO SWEET . [facility] Start: 01-06-2023 End: 01-06-2023 Patient encounter procedure Jeff Terrell [facility] Start: 12-30-2022 End: 12-31-2022 ambulatory PATITO CHRISTIEKathy . Facility:[facility] Start: 12-30-2022 End: 12-31-2022 Encounter for preprocedural laboratory examination PATITO Martinez PRATIKKathy . Facility:[facility] Start: 12-21-2022 End: 12-21-2022 Patient encounter procedure Patito Sweet [facility] Start: 12-14-2022 End: 12-15-[address] MYRA SHAFFER Facility:[facility] Start: 11-29-2022 End: 11-29-2022 Admission to same day surgery center MD Jeff Terrell Work Phone: [facility] [place] Start: 11-29-2022 End: 11-29-2022 ambulatory MD Jeff Terrell Work Phone: [facility] Work Phone: Start: 11-24-2022 End: 11-24-2022 ambulatory Tomi Leach Other [facility] Other Start: 11-24-2022 Office outpatient vi sit 25 minutes Tomi MURDOCK [facility] Start: 11-24-2022 Telephone encounter Tomi GONZALEZ [facility] Start: 11-08-2022 End: 11-08-2022 Patient encounter procedure Pritesh HOLLOWAY [facility] Start: 11-04-2022 End: 11-04-2022 Patient encounter procedure Patito Sweet [facility] Start: 11-02-2022 End: 11-02-2022 Admission to same day surgery center MD Jeff Terrell Work Phone: [facility] [place] Work Phone: Start: 11-02-2022 End: 11-02-2022 ambulatory MD Jeff Terrell Work Phone: [facility] Work Phone: Start: 10-26-2022 End: 10-26-2022 Lab Drop off Patito Sweet [facility] Start: 10-26-2022 End: 10-26-2022 Patient encounter procedure Patito MAlejo Christiekathy [facility] Start: 10-21-2022 End: 10-21-2022 Patient encounter procedure Patito MAlejo Sweet [facility] Start: 10-21-2022 End: 10-22-2022 ambulatory LIMA CAMPOS Facility:H1 Start: 10-05-2022 End: 10-06-[address] RIVAS KINCAID Facility:H1 Start: 09-30-2022 End: 09-30-2022 Admission to same day surgery center MD Jeff Terrell Work Phone: [facility] [place] Start: 09-30-2022 End: 09-30-2022 ambulatory MD Jeff Terrell Work Phone: [facility] Work Phone: Start: 09-29-2022 End: 09-30-[address] JEFF TERRELL . Facility:H1 Start: 09-28-2022 End: 09-29-[address] RIVAS KINCAID Facility:[facility]1 Start: 09-21-2022 End: 09-21-2022 Lab Drop off Patito JuanAlejo Sweet [facility] Start: 09-21-2022 End: 09-21-2022 Patient encounter procedure Patito JuanAlejo Sweet [facility] Start: 09-20-2022 End: 09-21-[address] JEFF TERRELL . Facility: Start: 08-29-2022 End: 08-29-2022 ambulatory Tomi Leach Other [facility] Other Start: 08-29-2022 Telephone encounter Tomi Leach [facility] Start: 08-23-2022 End: 08-23-2022 Admission to same day surgery center MD Jeff Terrell Work Phone: [facility] [place] Start: 08-23-2022 End: 08-23-2022 ambulatory MD Jeff Terrell Work Phone: [facility] Work Phone: Start: 08-19-2022 End: 08-19-2022 ambulatory MD Jeff Terrell Work Phone: [facility] Work Phone: Start: 08-19-2022 End: 08-19-2022 Patient encounter procedure MD Jeff Terrell Work Phone: [facility] Start: 08-15-2022 End: 08-15-2022 ambulatory Tomi Leach Other [facility] Other Start: 08-15-2022 Office outpatient vi sit 25 minutes Tomi Leach [facility] Start: 08-12-2022 End: 08-12-2022 ambulatory MD Jeff Terrell Work Phone: [facility] Work Phone: Start: 08-12-2022 End: 08-12-2022 Patient encounter procedure MD Jeff Terrell Work Phone: [facility] Start: 08-11-2022 End: 08-11-2022 ambulatory Ramiro George Other [facility] Other Start: 08-11-2022 Office outpatient ne w 30 minutes Ramiro George [facility] Start: 08-11-2022 Telephone encounter Ramiro George [facility] [employer] Start: 08-10-2022 End: 08-10-2022 Patient encounter procedure Patito MartinezAlejo Kee [facility] Start: 08-08-2022 End: 08-08-2022 ambulatory Tomi Leach Other [facility] Other Start: 08-08-2022 Telephone encounter Tomi [facility] Start: 08-03-2022 End: 08-03-2022 ambulatory MD Jeff Terrell Work Phone: [facility] Work Phone: Start: 08-03-2022 End: 08-03-2022 Patient encounter procedure MD Jeff Terrell Work Phone: [facility] [place] Start: 08-02-2022 End: 08-02-2022 ambulatory Tomi Leach Other [facility] Other Start: 08-02-2022 Office outpatient vi sit 25 minutes Tomi Leach [facility] Start: 07-26-2022 End: 07-26-2022 Admission to same day surgery center MD Jeff Terrell Work Phone: [facility] Start: 07-26-2022 End: 07-26-2022 ambulatory MD Jeff Terrell Work Phone: [facility] Work Phone: Start: 07-21-2022 End: 07-21-2022 ambulatory Tomi Leach Other [facility] Other Start: 07-21-2022 Telephone encounter Tomi [facility] Start: 07-18-2022 End: 07-18-2022 Patient encounter procedure Ronak Rao [facility] Start: 07-14-2022 End: 07-14-2022 Patient encounter procedure Lauri SOLIZ [facility] Start: 07-12-2022 End: 07-12-2022 Patient encounter procedure Patito Sweet [facility] Start: 06-27-2022 End: 06-27-2022 ambulatory Tomi Leach Other [facility] Other Start: 06-27-2022 Office outpatient vi sit 25 minutes Tomi Leach [facility] Start: 06-23-2022 End: 06-23-2022 Pain Management Ronak Rao [facility] Start: 06-22-2022 End: 06-22-2022 Patient encounter procedure Patito Sweet [facility] Start: 06-14-2022 (Procedure) Short Tomi Leach [facility] Start: 06-14-2022 End: 06-14-2022 ambulatory Tomi Leach Other [facility] Other Start: 06-14-2022 End: 06-14-2022 Admission to same day surgery center MD Jeff Terrell Work Phone: [facility] Start: 06-08-2022 End: 06-09-[address] JEFF TERRELL . Facility: Start: 05-26-2022 End: 05-26-2022 ambulatory Gaurav Scott Other [facility] Other Start: 05-26-2022 Telephone encounter Gaurav Maguire [facility] Start: 05-26-2022 End: 05-26-2022 Patient encounter procedure Ronak Rao [facility] Start: 05-26-2022 End: 05-26-2022 Pain Management Ronak Rao [facility] Start: 05-20-2022 End: 05-20-2022 Patient encounter procedure MD Jeff Terrell Work Phone: [facility] Start: 05-09-2022 End: 05-09-2022 ambulatory Gaurav Scott Other [facility] Other Start: 05-09-2022 Office outpatient vi sit 25 minutes Gaurav Scott [facility] Start: 05-09-2022 End: 05-09-2022 Patient encounter procedure MD Jeff Terrell Work Phone: [facility] Start: 05-05-2022 End: 05-05-2022 ambulatory Gaurav Scott Other [facility] Other Start: 05-05-2022 Telephone encounter Gaurav Maguire [facility] Start: 03-16-2022 End: 03-16-2022 ambulatory Gaurav Scott Other [facility] Other Start: 03-16-2022 Office outpatient vi sit 15 minutes Gaurav Scott [facility] [place] [facility] Start: 02-21-2022 (Procedure) Steffanie Leach [facility] Start: 02-21-2022 End: 02-21-2022 ambulatory Tomi Leach Other [facility] Other Start: 02-16-2022 End: 02-16-2022 ambulatory Gaurav Davida Other [facility] Other Start: 02-16-2022 Office outpatient vi sit 15 minutes Gaurav Scott [facility] Start: 02-02-2022 End: 02-02-2022 ambulatory Gaurav Scott Other [facility] Other Start: 02-02-2022 Office outpatient vi sit 15 minutes Gaurav Scott [facility] [place] [facility] Start: 11-04-2021 End: 11-04-2021 ambulatory Gaurav Scott Other [facility] Other Start: 11-04-2021 Telephone encounter Gaurav GONZALEZ G [facility] Procedures Date Procedure Procedure Detail Performing Clinician Start: 05-07-2024 Diagnostic radiograp hy of abdomen MD Jeff Terrell Work Phone: Start: 05-07-2024 Ultrasonography of bilateral kidneys MD Jeff Terrell Work Phone: Start: 03-13-2024 X-ray of left knee MD Levi Terrell Work Phone: Start: 10-30-2023 Release of trigger finger MD Jeff Terrell Work Phone: Start: 09-26-2023 Transurethral cystoscopy Patito Sweet Start: 09-15-2023 Plain chest X-ray MD Guzman Work Phone: Start: 08-29-2023 Decompression of med johnathan nerve MD Jeff Terrell Work Phone: Start: 05-25-2023 X-ray of cervical spine MD Jeff Terrell Work Phone: Start: 04-25-2023 Decompression of med johnathan nerve MD Jeff Terrell Work Phone: Start: 03-14-2023 Decompression of med johnathan nerve MD Jeff Terrell Work Phone: Start: 01-30-2023 Plain X-ray of left elbow MD Jeff Terrell Work Phone: Start: 11-29-2022 Cystoscopy MD Jeff Terrell Work Phone: Start: 11-29-2022 Cystoscopic laser lithotripsy of ureteric calculus Patito Lue Start: 11-02-2022 Aerobic microbial culture MD Jeff Terrell Work Phone: Start: 11-02-2022 Anaerobic microbial culture MD Jeff Terrell Work Phone: Start: 11-02-2022 Investigation of transfusion reaction MD Jeff Terrell Work Phone: Start: 11-02-2022 CT guided percutaneo us therapeutic drainage MD Jeff Terrell Work Phone: Start: 09-30-2022 Cystoscopy MD Jeff Terrell Work Phone: Start: 09-30-2022 Diagnostic radiograp hy of abdomen MD Jeff Terrell Work Phone: Start: 08-23-2022 Extracorporeal shock wave lithotripsy of calculus of kidney MD Jeff Terrell Work Phone: Start: 08-23-2022 Diagnostic radiograp hy of abdomen MD Jeff Terrell Work Phone: Start: 08-23-2022 Extracorporeal shock wave lithotripsy of calculus of kidney Patito Lue Start: 08-12-2022 Plain chest X-ray MD Guzman Work Phone: Start: 08-03-2022 CT of abdomen and pe lvis without contrast MD Jeff Terrell Work Phone: Start: 08-03-2022 Diagnostic radiograp hy of abdomen MD Jeff Terrell Work Phone: Start: 07-26-2022 Epidural injection o f lumbar spine using fluoroscopic guidance MD Jeff Terrell Work Phone: Start: 07-12-2022 Cystoscopy Patito Lue Start: 06-14-2022 Injection of spinal epidural space MD Jeff Terrell Work Phone: Start: 05-20-2022 MRI of lumbar spine with contrast MD Jeff Terrell Work Phone: Start: 05-09-2022 X-ray of lumbar spin e, four views MD Jeff Terrell Work Phone: Start: 08-17-2018 Epidural injection o f cervical spine using fluoroscopic guidance Patito Kee Comment on above: C6/[address] Bowles at [facility]. Start: 05-26-2017 Epidural injection o f cervical spine using fluoroscopic guidance Ronakmaria eugenia Rao Start: 09-16-2016 Epidural injection o f cervical spine using fluoroscopic guidance Ronak Rao Start: 10-16-2000 Back structure, excl uding neck (body structure) Ronak Terrancepatrick Comment on above: lumbar fusion History of decompres edgard of median nerve S/P carpal tunnel release MD Jeff Terrell Work Phone: Total knee replacement Rosalind lindsey Jalen Total knee replacement Patito Sweet Plan of Treatment Date Care Activity Detail Author Start: 04-29-2024 Patient referral [facility] Work Phone: Start: 03-13-2024 X-ray of left knee XR knee LT 3V - NOT FOR ER USE [facility] Start: 03-13-2024 XR Knee - left 3 Views [facility] Start: 10-30-2023 [facility] Start: 08-29-2023 [facility] Start: 08-22-2023 [facility] Start: 04-25-2023 [facility] Start: 04-24-2023 [facility] Start: 03-14-2023 [facility] Start: 03-14-2023 [facility] Start: 11-29-2022 [facility] Start: 11-29-2022 [facility] Start: 11-29-2022 [facility] Start: 11-02-2022 Aerobic Culture Aerobic Culture [facility] Start: 11-02-2022 Anaerobic Culture Anaerobic Culture [facility] Start: 11-02-2022 Microscopic observation [Identifier] in Unspecified specimen by Gram stain Gram Stain [facility] Start: 11-02-2022 [facility] Start: 11-02-2022 Microbial culture, body fluid [facility] Start: 11-02-2022 CT guided percutaneous therapeutic drainage [facility] Start: 09-30-2022 [facility] Start: 08-23-2022 End: 08-23-2022 [facility] Start: 07-26-2022 [facility] Start: 06-14-2022 [facility] Start: 06-14-2022 Injection of spinal epidural space DH Epidural Transforaminal (Right) [facility] Start: 06-14-2022 End: 06-14-2022 Admission to same day surgery center Departed Surgical Day Care [facility] Start: 05-20-2022 MRI of lumbar spine with contrast MR lumbar spine wo/w con [facility] Start: 05-20-2022 End: 05-20-2022 Patient encounter procedure Departed Clinical [facility] [place] Bacteria identified in Unspecified specimen by Aerobe culture [facility] Bacteria identified in Unspecified specimen by Anaerobe culture [facility] Bilirubin [facility] Body weight [facility] Calcium carbonate/To karie in [facility] Calcium hydrogen phosphate dihydrate/Total in [facility] Calcium oxalate monohydrate/Total in [facility] Calcium phosphate level [facility] Calculus analysis wi th calculus photography [Interpretation] in [facility] Calculus analysis, qualitative [facility] Calculus analysis, quantitative [facility] Calculus analysis, quantitative, infrared spectroscopy [facility] Cellular material [Mass/mass] of Stone by Estimated [facility] Cholesterol [Mass/vo lume] in Serum or Plasma [facility] Cystine measurement [facility] Determination of cy culus chemical composition [facility] Evaluation procedure [facility] Glucose measurement estimated from glycated hemoglobin [facility] Hemoglobin A1c measurement [facility] Hydroxyapatite [Ener gy Difference] in 24 hour Urine [facility] Laboratory data interpretation [facility] Newberyite/Total in [facility] Education [facility] Work Phone: Patient referral [facility] Work Phone: Specimen source subj ect [Type] [facility] Triamterene measurement [facility] Triple phosphate/Tot al in [facility] XR Knee - left 3 Views [facility] Immunizations Immunization Date Immunization Notes Care Provider Fa [facility] 2023 tetanus toxoid, reduced diphtheria toxoid, and acellular pertussis vaccine, adsorbed MD Jeff Terrell Work Phone: [facility] NEGATED: Highlighted row has not occurred!06-22-2022 SARS-CoV-2 mRNA (tozinameran 5y-11y) vaccine Patito Kee [facility] Payers Date Payer Category Payer Medicare (Managed Care) [employer] M EDICARE ADVANTAGE [id number] 2022 Private Health Insurance [id number] 2022 Unknown [id number] 1965 Unknown [id number] 2.16.840.1.866503.3.579.2 .593 1965 Unknown [id number] 2.16.840.1.604473.3.579.2 .593 1963 Unknown [id number] 2.16.840.1.020966.3.579.2 .593 1963 Unknown [id number] 2.16.840.1.621969.3.579.2 .593 1963 Unknown [id number] 2.16.840.1.751834.3.579.2 .593 1963 Unknown [id number] 2.16.840.1.550035.3.579.2 .593 1963 Unknown [id number] 2.16.840.1.720778.3.579.2 .593 1963 Unknown [id number] 2.16.840.1.861726.3.579.2 .593 1963 Unknown [id number] 2.16.840.1.407784.3.579.2 .593 1963 Unknown [id number] 2.16.840.1.088097.3.579.2 .593 1963 Unknown [id number] 2.16.840.1.024511.3.579.2 .593 1963 Unknown [id number] 2.16.840.1.377050.3.579.2 .727 1965 Unknown [id number] 2.16.840.1.161625.3.579.2 .727 1965 Unknown [id number] 2.16.840.1.201336.3.579.2 .727 1965 Unknown [id number] 2.16.840.1.255230.3.579.2 .727 1963 Unknown [id number] 2.16.840.1.459377.3.579.2 .727 1963 Unknown [id number] 2.16.840.1.877354.3.579.2 .727 1963 Unknown [id number] 2.16.840.1.381576.3.579.2 .727 1963 Unknown [id number] 2.16.840.1.009932.3.579.2 .727 1965 Unknown [id number] 2.16.840.1.042268.3.579.2 .727 1965 Unknown [id number] 2.16.840.1.363166.3.579.2 .1259 1961 Medicare [id number] 2.16.840.1.852305.19 1959 Medicare [id number] 2.16.840.1.962836.19 1959 Medicare [id number] 1959 Private Health Insurance [id number] 1959 Self-pay [id number] Medicaid Medicaid [id number] Unknown [place] BC/BS [id number] Worker's Compensation Care Works [facility] [id number] Social History Date Type Detail Facility Unknown if ever smoked [facility] Other Sex Assigned At [facility] Other Start: 03-04-2021 End: 08-05-2024 Tobacco smoking status Never smoked tobacco (finding) [facility] Work Phone: Start: 1965 Sex Assigned At Male [facility] Tobacco smoking status Never [facility] Tobacco smoking status NHIS Tobacco smoking consumption unknown [facility] Start: 08-04-2024 Gender identity Identifies as male gender (finding) [facility] Start: 08-04-2024 Sexual orientation Heterosexual (fin ding) [facility] Start: 08-05-2024 Tobacco use and exposure Smokeless tobacco non-user [facility] Start: 08-05-2024 Alcoholic beverage intake Defer [facility] NEGATED: Highlighted rowStart: NINF History of tobacco use Passive smoker [facility] Medical Equipment Procedure Code Equipment Code Equipment Origin al Text Equipment Identifier Dates Cystoscopy, with ureteral calculus manipulation and stent placement Polymeric ureteral stent ()[id number] FDA Start: 09-30-2022 Cystoscopy, with ureteral calculus manipulation and stent placement Polymeric ureteral stent ()[id number] FDA Start: 11-29-2022 Arthroplasty, knee, total, minimally invasive Orthopaedic cement, non-medicated ()[id number] FDA Start: 02-02-2021 Arthroplasty, knee, total, minimally invasive Polyethylene patella prosthesis ()[id number] FDA Start: 02-02-2021 Arthroplasty, knee, total, minimally invasive Uncoated knee tibia prosthesis, metallic ()[id number] FDA Start: 02-02-2021 Arthroplasty, knee, total, minimally invasive Coated knee femur prosthesis ()[id number] FDA Start: 02-02-2021 Arthroplasty, knee, total, minimally invasive Coated knee femur prosthesis ()[id number] FDA Start: 02-02-2021 Arthroplasty, knee, total, minimally invasive Tibial insert ()[id number] FDA Start: 02-02-2021 Arthroplasty, knee, total, minimally invasive Tibial insert ()[id number] FDA Start: 02-02-2021 Arthroplasty, knee, total, minimally invasive Uncoated knee tibia prosthesis, metallic ()[id number] FDA Start: 02-02-2021 Arthroplasty, knee, total, minimally invasive Polyethylene patella prosthesis ()[id number] FDA Start: 02-02-2021 CYSTOSCOPY Lue M Levi, Patito M. 09/26/23 Unknown Pelvis and Genitalia FDA Start: 09-26-2023 CYSTOSCOPY Lue M Levi, Patito M. 09/26/23 Unknown Pelvis and Genitalia FDA Start: 09-26-2023 CYSTOSCOPY Lue M Levi, Patito M. 09/26/23 Unknown Pelvis and Genitalia FDA Start: 09-26-2023 CYSTOSCOPY Lue M Levi, Patito M. 09/26/23 Unknown Pelvis and Genitalia FDA Start: 09-26-2023 CYSTOSCOPY Lue M Levi, Patito M. 09/26/23 Unknown Pelvis and Genitalia FDA Start: 09-26-2023 CYSTOSCOPY Lue M Levi, Patito M. 09/26/23 Unknown Pelvis and Genitalia FDA Start: 09-26-2023 Goals Date Patient Goal Desired Activity /State Functional Status Date Assessment Result Facility 05-09-2024 Functional Status N/A [facility] 11-03-2023 Functional Status N/A [facility] 09-25-2023 Functional Status No [facility] 08-18-2023 Functional Status N/A [facility] 07-13-2023 Functional Status N/A [facility] 05-31-2023 Functional Status N/A [facility] 01-12-2023 Functional Status N/A [facility] 12-21-2022 Functional Status N/A [facility] 11-04-2022 Functional Status N/A [facility] 09-21-2022 Functional Status N/A [facility] 08-10-2022 Functional Status N/A [facility] 07-12-2022 Functional Status N/A [facility] 06-23-2022 Functional Status N/A [facility] 06-22-2022 Functional Status N/A [facility] 05-26-2022 Functional Status N/A [facility] Clinical Notes 02-02-2022 to 08-05-2024 Venkatelinor Paredes, DPM - 08/05/2024 9:00 AM EDT Note Date & Type Note Facility 08-05-2024 History of Presen t illness Narrative Patient: Lima Loyd : 1965 PCP: Jeff Terrell MD SUBJECTIVE This is a 58 y.o. male that presents today with a CC of elongated, thick nails. Pt states nails have been elongated and thick for many years and cause pain with ambulation in shoegear. Pt has tried previous treatment with minimal relief. Pt presents today for nail care and treatment. Patient also complains of pain to bilateral feet and arch regions and pes tried different treatments including arch supports and different shoes with minimal improvement rates up to 5/10 and presents today for possible treatment options He also has history of ingrowing nails in the past has had permanent procedures with regrowth of nails in the past and would like to have permanent nail procedure in the future Allergies: Allergies Allergen Reactions Amoxicillin Hives Clavulanic Acid Hives Morphine Itching and Hives Other Reaction(s): Itching, mental problems, hives all in morphine family Amoxicillin-Pot Clavulanate Hives, Itching, Rash and Swelling listed as allergy on 05/26/22pt states he has no issues with this medicaiton Past Medical History: Past Medical History: Diagnosis Date Hypertension ([facility]) Medications: Current Outpatient Medications: cyclobenzaprine (Flexeril) 10 MG tablet, , Disp: , Rfl: gabapentin (Neurontin) 600 MG tablet, 1 tablet Orally three times daily for 30 days, Disp: , Rfl: irbesartan (Avapro) 300 MG tablet, , Disp: , Rfl: tadalafil (Cialis) 20 MG tablet, Take 20 mg by mouth, Disp: , Rfl: temazepam (Restoril) 30 MG capsule, , Disp: , Rfl: traMADol (Ultram) 50 MG tablet, Twice daily, Disp: , Rfl: Social History: Social History Socioeconomic History Marital status: Spouse name: Not on file Number of children: Not on file Years of education: Not on file Highest education level: Not on file Occupational History Not on file Tobacco Use Smoking status: Never Passive exposure: Never Smokeless tobacco: Never Vaping Use Vaping status: Unknown Substance and Sexual Activity Alcohol use: Defer Drug use: Defer Sexual activity: Defer Other Topics Concern Not on file Social History Narrative Not on file Social Drivers of Health Financial Resource Strain: Not on file Food Insecurity: Not on file Transportation Needs: Not on file Physical Activity: Not on file Stress: Not on file Social Connections: Not on file Intimate Partner Violence: Not on file Housing Stability: Not on file ROS: General: denies fever, chills, fatigue, malaise Gastrointestinal: denies abdominal pain, ulcers, or changes in appetite or bowel habits Musculoskeletal: denies arthritis, positive history of total knee replacements bilateral Cardiovascular: denies CP, palpitations, irregular rhythms OBJECTIVE LE EXAM: DERM: Elongated thick yellow crumbly nails digits 1 through 10. Positive hair growth b/l feet. Slight erythema to nail borders of 1 through 5 digits bilaterally VASC: Positive palpable pedal pulses bilaterally NEURO: Gross sensation intact to bilateral feet ORTHO: Positive pain on palpation to nails 1 through 10 Possible pain on palpation left and right mid arch region along plantar fascial bands ASSESSMENT 1. Pain due to onychomycosis of toenails of both feet 2. Plantar fasciitis 3. Paronychia, toe, left 4. Paronychia, toe, right PLAN Discussed proper foot care with patient today. Debride nails in length and thickness digits 1 through 10 Patient received [id number] inserts with power steps today and begin wearing daily Patient to continue with oral anti - inflammatories as needed for pain and recommended OTC medications such as tylenol or Ibuprofen Discussed conservative and surgical treatment options for patient today including postoperative time frame and surgical procedure in detail. Patient may continue with conservative treatments including [id number] anti-inflammatories and other treatments suggested today. Patient may want to be scheduled for surgical intervention in the near future. Patient has total permanent nail avulsions in the near future with removal of nails had surgery Center and will need preop and have Ultram for postop pain Venkat Paredes DPM documented in this encounter [facility] 05-09-2024 Hospital Discharg e instructions Patient Education 05/09/2024 10:36:01 Dietary Guidelines to Help Prevent Kidney Stones Dietary Guidelines to Help Prevent Kidney Stones Kidney stones are deposits of minerals and salts that form inside your kidneys. Your risk of developing kidney stones may be greater depending on your diet, your lifestyle, the medicines you take, and whether you have certain medical conditions. Most people can lower their risks of developing kidney stones by following these dietary guidelines. Your dietitian may give you more specific instructions depending on your overall health and the type of kidney stones you tend to develop. What are tips for following this plan? Reading food labels Choose foods with no salt added or low-salt labels. Limit your salt (sodium) intake to less than 1,500 mg a day. Choose foods with calcium for each meal and snack. Try to eat about 300 mg of calcium at each meal. Foods that contain 200 500 mg of calcium a serving include: ?8 oz (237 mL) of milk, xjsdguf-drhcojnkkypa-xdahl milk, and calcium-fortifiedfruit juice. Calcium-fortified means that calcium has been added to these drinks. ?8 oz (237 mL) of kefir, yogurt, and soy yogurt. ?4 oz (114 g) of tofu. ?1 oz (28 g) of cheese. ?1 cup (150 g) of dried figs. ?1 cup (91 g) of cooked broccoli. ?One 3 oz (85 g) can of sardines or mackerel. Most people need 1,000 1,500 mg of calcium a day. Talk to your dietitian about how much calcium is recommended for you. Shopping Buy plenty of fresh fruits and vegetables. Most people do not need to avoid fruits and vegetables, even if these foods contain nutrients that may contribute to kidney stones. When shopping for convenience foods, choose: ?Whole pieces of fruit. ?Pre-made salads with dressing on the side. ?Low-fat fruit and yogurt smoothies. Avoid buying frozen meals or prepared deli foods. These can be high in sodium. Look for foods with live cultures, such as yogurt and kefir. Choose high-fiber grains, such as whole-wheat breads, oat bran, and wheat cereals. Cooking Do not add salt to food when cooking. Place a salt shaker on the table and allow each person to add their own salt to taste. Use vegetable protein, such as beans, textured vegetable protein (TVP), or tofu, instead of meat in pasta, casseroles, and soups. Meal planning Eat less salt, if told by your dietitian. To do this: ?Avoid eating processed or pre-made food. ?Avoid eating fast food. Eat less animal protein, including cheese, meat, poultry, or fish, if told by your dietitian. To do this: ?Limit the number of times you have meat, poultry, fish, or cheese each week. Eat a diet free of meat at least 2 days a week. ?Eat only one serving each day of meat, poultry, fish, or seafood. ?When you prepare animal proteins, cut pieces into small portion sizes. For most meat and fish, one serving is about the size of the palm of your hand. Eat at least five servings of fresh fruits and vegetables each day. To do this: ?Keep fruits and vegetables on hand for snacks. ?Eat one piece of fruit or a handful of berries with breakfast. ?Have a salad and fruit at lunch. ?Have two kinds of vegetables at dinner. You may be told to limit foods that are high in a substance called oxalate. These include: ?Spinach (cooked), rhubarb, beets, sweet potatoes, and [place] chard. ?Peanuts. ?Potato chips, [place]ican fries, and baked potatoes with skin on. ?Nuts and nut products. ?Chocolate. If you regularly take a diuretic medicine, make sure to eat at least 1 or 2 servings of fruits or vegetables that are high in potassium each day. These include: ?Avocado. ?Banana. ?[place], prune, carrot, or tomato juice. ?Baked potato. ?Cabbage. ?Beans and split peas. Lifestyle Drink enough fluid to keep your urine pale yellow. This is the most important thing you can do. Spread your fluid intake throughout the day. If you drink alcohol: ?Limit how much you have to: ?0 1 drink a day for women who are not . ?0 2 drinks a day for men. ?Know how much alcohol is in your drink. In the [place] one drink equals one 12 oz bottle of beer (355 mL), one 5 oz glass of wine (148 mL), or one 1 oz glass of hard liquor (44 mL). Lose weight if told by your health care provider. Work with your dietitian to find an eating plan and weight loss strategies that work best for you. General information Talk to your health care provider and dietitian about taking daily supplements. Depending on your health and the cause of your kidney stones, you may be told: ?Do not take high-dose supplements of vitamin C (1,000 mg a day or more). ?To take a calcium supplement. ?To take a daily probiotic supplement. ?To take other supplements such as magnesium, fish oil, or vitamin B6. Take wivi-ghg-wqpalpb and prescription medicines only as told by your health care provider. These include supplements. What foods should I limit? Limit your intake of the following foods, or eat them as told by your dietitian. Vegetables Spinach. Rhubarb. Beets. Canned vegetables. Pickles. Olives. Baked potatoes with skin. Grains Wheat bran. Baked goods. Salted crackers. Cereals high in sugar. Meats and other proteins Nuts. Nut butters. Large portions of meat, poultry, or fish. Salted, precooked, or cured meats, such as sausages, meat loaves, and hot dogs. Dairy Cheeses. Beverages Regular soft drinks. Regular vegetable juice. Seasonings and condiments Seasoning blends with salt. Salad dressings. Soy sauce. Ketchup. Barbecue sauce. Other foods Canned soups. Canned pasta sauce. Casseroles. Pizza. Lasagna. Frozen meals. Potato chips. [place] fries. The items listed above may not be a complete list of foods and beverages you should limit. Contact a dietitian for more information. What foods should I avoid? Talk to your dietitian about specific foods you should avoid based on the type of kidney stones you have and your overall health. Fruits Grapefruit. The item listed above may not be a complete list of foods and beverages you should avoid. Contact a dietitian for more information. Summary Kidney stones are deposits of minerals and salts that form inside your kidneys. You can lower your risk of kidney stones by making changes to your diet. The most important thing you can do is drink enough fluid. Drink enough fluid to keep your urine pale yellow. Talk to your dietitian about how much calcium you should have each day, and eat less salt and animal protein as told by your dietitian. This information is not intended to replace advice given to you by your health care provider. Make sure you discuss any questions you have with your health care provider. Document Revised: 01/12/2023 Document Reviewed: 01/12/2023 [employer] Patient Education 2022 [employer] [place]. Follow Up Care 11/03/2023 10:48:01 With:Kee NAVARRO, RENATA Ghotra, URO Address: When: Unknown [facility] 05-09-2024 Note Patient Education Nephrology Dietary Guidelines to Help Prevent Kidney Stones Kidney stones are deposits of minerals and salts that form inside your kidneys. Your risk of developing kidney stones may be greater depending on your diet, your lifestyle, the medicines you take, and whether you have certain medical conditions. Most people can lower their risks of developing kidney stones by following these dietary guidelines. Your dietitian may give you more specific instructions depending on your overall health and the type of kidney stones you tend to develop. What are tips for following this plan? Reading food labels ? Choose foods with no salt added or low-salt labels. Limit your salt (sodium) intake to less than 1,500 mg a day. ? Choose foods with calcium for each meal and snack. Try to eat about 300 mg of calcium at each meal. Foods that contain 200?500 mg of calcium a serving include: ? 8 oz (237 mL) of milk, eulkrms-tuqfuwbpgqss-foysm milk, and calcium-fortifiedfruit juice. Calcium-fortified means that calcium has been added to these drinks. ? 8 oz (237 mL) of kefir, yogurt, and soy yogurt. ? 4 oz (114 g) of tofu. ? 1 oz (28 g) of cheese. ? 1 cup (150 g) of dried figs. ? 1 cup (91 g) of cooked broccoli. ? One 3 oz (85 g) can of sardines or mackerel. Most people need 1,000?1,500 mg of calcium a day. Talk to your dietitian about how much calcium is recommended for you. Shopping ? Buy plenty of fresh fruits and vegetables. Most people do not need to avoid fruits and vegetables, even if these foods contain nutrients that may contribute to kidney stones. ? When shopping for convenience foods, choose: ? Whole pieces of fruit. ? Pre-made salads with dressing on the side. ? Low-fat fruit and yogurt smoothies. ? Avoid buying frozen meals or prepared deli foods. These can be high in sodium. ? Look for foods with live cultures, such as yogurt and kefir. ? Choose high-fiber grains, such as whole-wheat breads, oat bran, and wheat cereals. Cooking ? Do not add salt to food when cooking. Place a salt shaker on the table and allow each person to add their own salt to taste. ? Use vegetable protein, such as beans, textured vegetable protein (TVP), or tofu, instead of meat in pasta, casseroles, and soups. Meal planning ? Eat less salt, if told by your dietitian. To do this: ? Avoid eating processed or pre-made food. ? Avoid eating fast food. ? Eat less animal protein, including cheese, meat, poultry, or fish, if told by your dietitian. To do this: ? Limit the number of times you have meat, poultry, fish, or cheese each week. Eat a diet free of meat at least 2 days a week. ? Eat only one serving each day of meat, poultry, fish, or seafood. ? When you prepare animal proteins, cut pieces into small portion sizes. For most meat and fish, one serving is about the size of the palm of your hand. ? Eat at least five servings of fresh fruits and vegetables each day. To do this: ? Keep fruits and vegetables on hand for snacks. ? Eat one piece of fruit or a handful of berries with breakfast. ? Have a salad and fruit at lunch. ? Have two kinds of vegetables at dinner. ? You may be told to limit foods that are high in a substance called oxalate. These include: ? Spinach (cooked), rhubarb, beets, sweet potatoes, and [place] chard. ? Peanuts. ? Potato chips, costa rican fries, and baked potatoes with skin on. ? Nuts and nut products. ? Chocolate. ? If you regularly take a diuretic medicine, make sure to eat at least 1 or 2 servings of fruits or vegetables that are high in potassium each day. These include: ? Avocado. ? Banana. ? [place], prune, carrot, or tomato juice. ? Baked potato. ? Cabbage. ? Beans and split peas. Lifestyle ? Drink enough fluid to keep your urine pale yellow. This is the most important thing you can do. Spread your fluid intake throughout the day. ? If you drink alcohol: ? Limit how much you have to: ? 0?1 drink a day for women who are not . ? 0?2 drinks a day for men. ? Know how much alcohol is in your drink. In the [place] one drink equals one 12 oz bottle of beer (355 mL), one 5 oz glass of wine (148 mL), or one 1? oz glass of hard liquor (44 mL). ? Lose weight if told by your health care provider. Work with your dietitian to find an eating plan and weight loss strategies that work best for you. General information ? Talk to your health care provider and dietitian about taking daily supplements. Depending on your health and the cause of your kidney stones, you may be told: ? Do not take high-dose supplements of vitamin C (1,000 mg a day or more). ? To take a calcium supplement. ? To take a daily probiotic supplement. ? To take other supplements such as magnesium, fish oil, or vitamin B6. ? Take xfph-ofw-btcphtg and prescription medicines only as told by your health care provider. These include suppleme (more content not included)... [facility] 04-29-2024 Hospital Discharg e instructions Ambulatory OrdersReferral to Neurology Time Frame: 04/29/24, Location: None [facility] Work Phone: 11-10-2023 Evaluation note Encounter Date Diagnosis Assessment Notes Oct, Finger mass, right (ICD-10 - R22.31) Oct, Pre-op exam (ICD-10 - Z01.818) [facility] Other 01-19-2024 Hospital Discharge instructions Patient Education 11/03/2023 10:46:04 Benign Prostatic Hyperplasia Benign Prostatic Hyperplasia Benign prostatic hyperplasia (BPH) is an enlarged prostate gland that is caused by the normal agingprocess. The prostate may get bigger as a man gets older. The condition is not caused by cancer. The prostate is a walnut-sized gland that is involved in the production of semen. It is located in front of the rectum and below the bladder. The bladder stores urine. The urethra carries stored urine ou t of the body. An enlarged prostate can press on the urethra. This can make it harder to pass urine. The buildup of urine in the bladder can cause infection. Back pressure and infection may progress to bladder damage and kidney (renal) failure. What are the causes? This condition is part of the normal aging process. However, not all men develop problems from thiscondition. If the prostate enlarges away from the urethra, urine flow will not be blocked. If it enlarges toward the urethra and compresses it, there will be problems passing urine. What increases the risk? This condition is more likely to develop in men older than 50 years. What are the signs or symptoms? Symptoms of this condition include: Getting up often during the night to urinate. Needing to urinate frequently during the day. Difficulty starting urine flow. Decrease in size and strength of your urine stream. Leaking (dribbling) after urinating. Inability to pass urine. This needs immediate treatment. Inability to completely empty your bladder. Pain when you pass urine. This is more common if there is also an infection. Urinary tract infection (UTI). How is this diagnosed? This condition is diagnosed based on your medical history, a physical exam, and your symptoms. Tests will also be done, such as: A post-void bladder scan. This measures any amount of urine that may remain in your bladder after you finish urinating. A digital rectal exam. In a rectal exam, your health care provider checks your prostate by putting a lubricated, gloved finger into your rectum to feel the back of your prostate gland. This exam detects the size of your gland and any abnormal lumps or growths. An exam of your urine (urinalysis). A prostate specific antigen (PSA) screening. This is a blood test used to screen for prostate cancer. An ultrasound. This test uses sound waves to electronically produce a picture of your prostate gland. Your health care provider may refer you to a specialist in kidney and prostate diseases (urologist). How is this treated? Once symptoms begin, your health care provider will monitor your condition (active surveillance or watchful waiting). Treatment for this condition will depend on the severity of your condition. Treatment may include: Observation and yearly exams. This may be the only treatment needed if your condition and symptoms are mild. Medicines to relieve your symptoms, including: ?Medicines to shrink the prostate. ?Medicines to relax the muscle of the prostate. Surgery in severe cases. Surgery may include: ?Prostatectomy. In this procedure, the prostate tissue is removed completely through an open incision or with a laparoscope or robotics. ?Transurethral resection of the prostate (TURP). In this procedure, a tool is inserted through the opening at the tip of the penis (urethra). It is used to cut away tissue of the inner core of the prostate. The pieces are removed through the same opening of the penis. This removes the blockage. ?Transurethral incision (TUIP). In this procedure, small cuts are made in the prostate. This lessens the prostate's pressure on the urethra. ?Transurethral microwave thermotherapy (TUMT). This procedure uses microwaves to create heat. The heat destroys and removes a small amount of prostate tissue. ?Transurethral needle ablation (TUNA). This procedure uses radio frequencies to destroy and remove a small amount of prostate tissue. ?Interstitial laser coagulation (ILC). This procedure uses a laser to destroy and remove a small amount of prostate tissue. ?Transurethral electrovaporization (TUVP). This procedure uses electrodes to destroy and remove a small amount of prostate tissue. ?Prostatic urethral lift. This procedure inserts an implant to push the lobes of the prostate away from the urethra. Follow these instructions at home: Take qgpr-ped-nhexxwx and prescription medicines only as told by your health care provider. Monitor your symptoms for any changes. Contact your health care provider with any changes. Avoid drinking large amounts of liquid before going to bed or out in public. Avoid or reduce how much caffeine or alcohol you drink. Give yourself time when you urinate. Keep all follow-up visits. This is important. Contact a health care provider if: You have unexplained back pain. Your symptoms do not get better with treatment. You develop side effects from the medicine you are taking. Your urine becomes very dark or has a bad smell. Your lower abdomen becomes distended and you have trouble passing urine. Get help right away if: You have a fever or chills. You suddenly cannot urinate. You feel light-headed or very dizzy, or you faint. There are large amounts of blood or clots in your urine. Your urinary problems become hard to manage. You develop moderate to severe low back or flank pain. The flank is the side of your body between the ribs and the hip. These symptoms may be an emergency. Get help right away. Call 911. Do not wait to see if the symptoms will go away. Do not drive yourself to the hospital. Summary Benign prostatic hyperplasia (BPH) is an enlarged prostate that is caused by the normal aging process. It is not caused by cancer. An enlarged prostate can press on the urethra. This can make it hard to pass urine. This condition is more likely to develop in men older than 50 years. Get help right away if you suddenly cannot urinate. This information is not intended to replace advice given to you by your health care provider. Make sure you discuss any questions you have with your health care provider. Document Revised: 04/20/2022 Document Reviewed: 04/20/2022 [employer] Patient Education 2022 [employer] [place]. Follow Up Care 09/26/2023 15:07:03 With:Kee NAVARRO, RENATA Ghotra, URO Address: When:Within 6 Month(s) Comments:britany/CHANTEL and SUMMER [facility] 01-10-2024 Evaluation note* Encounter Date Diagnosis Assessment Notes Treatment Notes Treatment Clinical Notes Oct, Finger mass, right (ICD-10 - R22.31) This may be a neuroma versus a cyst that is putting pressure on the nerve. Discussed further assessment with MRI versus surgical excision. Patient opts for surgical excision at this time. Surgical procedure, risks, recovery and restrictions discussed in detail. Patient was in understanding and wishes to proceed with local anesthesia. Oct, Pre-op exam (ICD-10 - Z01.818) [facility] Other 12-12-2023 Evaluation + Plan noteExtracted from: Title:ANES Post-operative Note - General Author: Clyde Gramajo Jr., DO Date:09/26/23 Plan Transfer/Discharge: Transfer/Discharge Discharge when meets criteria ( From PACU to Ambulatory Surgery Unit, and To home ). Extracted from: Title:ANES Pre-operative Note - Adult Author:Clyde Zee Jr., DO Date:09/26/23 Patient: LIMA LOYD Age: 58 years Sex: Male : 1965 Associated Diagnoses: None Author: Clyde Gramajo Jr., DO Preoperative Information Anesthesia Preop Info NPO since midnight Anesthesia history: Patient history: No prior anesthetic problems. Informed consent: Signed by patient. Re-evaluation prior to induction: Initial evaluation reviewed: No significant change. Health Status Allergies: Allergic Reactions (Selected) Severity Not Documented Augmentin- Hives. Bee Stings- No reactions were documented. Morphine- Unknown., Allergies (3) ActiveReaction AugmentinHives Bee StingsNone Documented morphineUnknown Current medications: (Selected) Inpatient Medications Ordered Lactated Ringers IV Tania 1000 mL 1,000 mL: 1,000 mL, IV, 100 mL/hr, Routine, Start date 09/26/23 8:31:00 EST, 10 hour(s), Total volume (mL): 1,000, 138.9 kg, 2.69, m2 Lactated Ringers IV Tania 1000 mL 1,000 mL: 1,000 mL, IV, 150 mL/hr, Routine, Start date 09/26/23 7:30:00 EST, 6.7 hour(s), Total volume (mL): 1,000 Phenergan 25 mg/mL Injection: 12.5 mg = 0.5 mL, Injection, IV Push, q2min PRN Other (see comment) for 2 dose(s), Stop date Limited # of times, Routine, Start date 09/26/23 8:31:00 EST, 09/26/23 8:31:00 EST ciprofloxacin additive + Premix Dextrose 5% Diluent 200 mL: 400 mg = 200 mL, Soln-IV, IV Piggyback, PREOP, Routine, Start date 09/26/23 7:30:00 EST, 200 mL/hr, Infuse over 60 minute(s) morphine 4 mg/mL Inj: 4 mg = 1 mL, Injection, IV Push, q4min PRN Pain 8-10 for 5 dose(s), Stop date Limited # of times, Routine, Start date 09/26/23 8:31:00 EST, 09/26/23 8:31:00 EST Prescriptions Prescribed Cialis 10 mg Tab: 10 mg = 1 tab(s), Oral, As Directed, PRN for erectile dysfunction, Take one hour prior to sexual intercourse. Do not exceed 20mg within 24 hrs., # 30 tab(s), Refills(s) 0, Pharmacy: [facility] [id number], 188, cm, 05/31/23 8:37:00 EDT, Height/Lengt... potassium CITRATE 10 mEq ER Tab: 10 mEq, 1 tab(s), Oral, BID, 180 tab(s), Refill(s) 3, [facility] [id number], 188, cm, 08/18/23 10:17:00 EDT, Height/Length Dosing, 132, kg, 08/18/23 10:17:00 EDT, Weight Dosing Documented Medications Documented Xanax 0.25 mg Tab: 0.25 mg = 1 tab(s), Oral, PRN for anxiety citalopram 40 mg Tab: 40 mg = 1 tab(s), Oral, Daily, Refills(s) 0 gabapentin 600 mg Tab: 600 mg = 1 tab(s), Oral, BID, Refills(s) 0 irbesartan 300 mg Tab: 300 mg = 1 tab(s), Oral, Daily, Refills(s) 0 temazepam 30 mg Cap: 30 mg = 1 cap(s), Oral, Once a day (at bedtime), PRN for sleep, Refills(s) 0 traMADOL 50 mg Tab: Refills(s) 0, Home Medications (8) Active Cialis 10 mg Tab 10 mg = 1 tab(s), PRN, Oral, As Directed citalopram 40 mg Tab 40 mg = 1 tab(s), Oral, Daily gabapentin 600 mg Tab 600 mg = 1 tab(s), Oral, BID irbesartan 300 mg Tab 300 mg = 1 tab(s), Oral, Daily potassium CITRATE 10 mEq ER Tab 10 mEq = 1 tab(s), Oral, BID temazepam 30 mg Cap 30 mg = 1 cap(s), PRN, Oral, Once a day (at bedtime) traMADOL 50 mg Tab Xanax 0.25 mg Tab 0.25 mg = 1 tab(s), PRN, Oral , Medications (5) Active Scheduled: (1) ciprofloxacin + Dextrose 5% Premix Diluent 200 mL 400 mg 200 mL, IV Piggyback, PREOP Continuous: (2) Lactated Ringers 1,000 mL 1,000 mL, IV, 150 mL/hr Lactated Ringers 1,000 mL 1,000 mL, IV, 100 mL/hr PRN: (2) morphine 4 mg/mL preservative-free [F] 4 mg 1 mL, IV Push, q4min promethazine 25 mg/mL Inj [F] 12.5 mg 0.5 mL, IV Push, q2min Problem list: All Problems Anxiety / SNOMED CT 07444109 / Confirmed Arthritis / SNOMED CT 3230727 / Confirmed BPH with urinary obstruction / SNOMED CT 3633569787 / Confirmed Cervical radiculopathy / SNOMED CT 010323192 / Confirmed Depression / SNOMED CT 90369264 / Confirmed ED (erectile dysfunction) / SNOMED CT 8204434907 / Confirmed Gross hematuria / SNOMED CT 548623851 / Confirmed History of prostatitis / SNOMED CT 0718293476 / Confirmed HTN (hypertension) / SNOMED CT 7357673489 / Confirmed Insomnia / SNOMED CT 039373551 / Confirmed Kidney stone / SNOMED CT 331970767 / Confirmed Lumbar radiculopathy / SNOMED CT 815604276 / Confirmed Poor short term memory / SNOMED CT 689560659 / Confirmed Prostatitis / SNOMED CT 95150150 / Confirmed Renal cyst / SNOMED CT 5063214374 / Confirmed Shoulder impingement syndrome / SNOMED CT 340863532 / Confirmed Thoracic spondylosis / SNOMED CT 6910834512 / Confirmed Tobacco use / SNOMED CT 438304396 / Confirmed Tremor / SNOMED CT 09880968 / Confirmed UTI (urinary tract infection) / SNOMED CT 009001218 / Confirmed Venous insufficiency / SNOMED CT 200099234 / Confirmed Resolved: Hematoma / SNOMED CT 8358538755 Canceled: Balanitis / SNOMED CT 43501618 Canceled: Erectile dysfunction / SNOMED CT 4836070223 Canceled: Gross hematuria / SNOMED CT 509399194 Canceled: Lesion of bladder / SNOMED CT 933828529 Canceled: Renal hematoma / SNOMED CT 273736219 Histories Past Medical History: Resolved Hematoma ([id number]): Resolved. Procedure history: Holmium Laser/Lt Stent Exchange ([id number]) on 11/29/2022 at 57 Years. ESWL of kidney ([id number]) on 08/23/2022 at 56 Years. Cystoscopy ([id number]) on 07/12/2022 at 56 Years. Epidural injection of cervical spine using fluoroscopic guidance ([id number]) on 08/17/2018 at 52 Years. Comments: 06/09/2022 13:10 CHERELLE Jolly RN, Megha C6/[address] Bowles at [facility]. Epidural injection of cervical spine using fluoroscopic guidance ([id number]) on 05/26/2017 at 51 Years. Epidural injection of cervical spine using fluoroscopic guidance ([id number]) on 09/16/2016 at 51 Years. Back- titanium cage L4-L5 ([id number]) in 2000 at 36 Years. Comments: 06/23/2022 12:26 CHERELLE Jolly RN, Megha lumbar fusion Total knee replacement ([id number]). bilateral Total knee replacement ([id number]). Social History Social & Psychosocial Habits Alcohol 08/18/2023Risk Assessment: Denies Alcohol Use Substance Abuse 08/18/2023Risk Assessment: Denies Substance Abuse Tobacco 08/18/2023 Tobacco Use: Never (less than 100 in l Smokeless tobacco use: Never . Physical Examination Vital Signs 09/26/2023 7:28 EST Heart Rate Monitored 86 bpm SpO2 95 % 09/26/2023 7:28 EST Systolic Blood Pressure 164 mmHg HI Diastolic Blood Pressure 90 mmHg HI Blood Pressure Location Right arm Mean Arterial Pressure, Monitered 115 mmHg 09/26/2023 7:27 EST Respiratory Rate 20 br/min 09/26/2023 7:27 EST Temperature Axillary 36.7 DegC Measurements from flowsheet : Measurements 09/26/2023 7:35 EST Height/Length Measured 187 cm Height/Length Dosing 187.0 cm Weight Dosing 138.9 kg BSA Measured 2.69 m2 Body Mass Index Measured 39.72 kg/m2 Weight Measured 138.9 kg 09/25/2023 17:57 EST Height/Length Measured 187 cm Weight Measured 138.9 kg Airway: Respiratory: Lungs are clear to auscultation, Respirations are non-labored. Cardiovascular: Regular rhythm. Review / Management Results review: Lab results 09/26/2023 7:46 EST PT 12.6 second(s) HI INR 1.1 NA PTT 32.6 second(s) . Interpretation: Outside results reviewed. No significant abnormalities noted.. ECG interpretation: NSR. Plan [place] [employer]esthesi[employer] (ASA) physical status classification: Class III. Anesthetic Preoperative Plan: Anesthesia General. Addendum by Clyde Gramajo Jr., DO D ec2022 10:11 EST Mallampati 3 Future Appointments Appointment Date:11/03/2023 10:15:00 AM Scheduled Provider:Patito Sweet MD Location:[facility] Appointment Type:URO Office Visit [facility]12-12-2023 Hospital Discharge instructions Patient Education 09/26/2023 11:02:55 Post Op Patient Instructions - FT (Custom) (CUSTOM) 09/26/2023 10:47:43 Lue - Urolift Post-Op Instructions (CUSTOM) [facility] [place] Post-Operative Instructions for UroLift After your procedure it is normal to have: Gross Hematuria (blood in the urine) You may even notice blood clots in your urine. A small amount of blood may apppear to be a lot of blood in your urine as it is diluted. Restarting your blood thinner, increased activity and heavy lifting could increase the amount of bleeding. The bleeding may besporadic (off and on) over the next 2-3 weeks. Ensure you are hydrating to assist in flushing the blood to prevent voiding complications. In the event you are unable to void, please reach out to our office. If the office is closed, you will need to report to the local emergency room. Blood in your semen and stool may be present. The blood in your semen is not harmful to you or your partner. This w ill resolve with time. Frequency/urgency/burning with urination is very common. This is due to irritation from your procedure. These symptoms do not indicate that your procedure was unsuccessful or that there is an infection. Ensure you are hydrating! You may try AZO over the counter as needed for urinary discomfort. Pain/discomfort are normal as well. There has been a non-narcotic prescription sent to your pharmacy. You may alternate this prescription with over the counter Ibuprofen. Your pain and discomfort should improve within a few days. When do I need to call the office? We ask that you reach out to the office if you experience a temperature of 100.4 F or higher, excessive urinary bleeding, symptoms of infection, inability to urinate or uncontrolled pain. If the office is closed, you may need to present to the local emergency department. Lee catheter If you have a catheter and will remove it at home, you may do so the next day if urine is clear and no longer red/pink in color. If urine is red, wait until clear to remove the catheter. See attached instructions for removal. Postop UroLift Instructions Complete your antibiotic as instructed. Remain on all your urinary medication until follow up. Take your pain madications and AZO as needed. Resume any blood thinners 48 hour post procedure. Continue to hydrate! Minimize your activity for 72-96 hours post procedure. If you are prescribed Oxybutynin for bladder spasms, you may take this medication every 8 hours as needed. This medication may cause dry mouth/eyes and constipation. Taking an over the counter stool softener and drinking plenty of water will help with side effects. Lee Catheter Removal Your healthcare provider has instructed you to remove your Lee catheter. This is a thin, flexibletube that allows urine to drain out of your bladder and into a bag. It is important to properly remove your catheter to prevent infection and other complications. If you have any questions about removing the Lee catheter, ask your healthcare provider before trying to remove it. Otherwise, follow the instructions on this sheet. Lee Catheter The Lee catheter is held in place by a small balloon that is filled with water. To remove the catheter, you must first drain the water from the balloon. This is done using a syringe and the balloonport. This is the opening in the catheter that is not attached to the bag. It allows you to get to the balloon. Instructions for Removing the Catheter Follow the directions closely. Note: If the catheter does not come out with gentle pulling, stop and call your healthcare provider right away. Empty the bag of urine if needed. Wash your hands with soap and warm water. Dry them well. Gather your supplies. This includes a syringe that was given to you by your healthcare provider, a wastebasket, and a towel. Put the syringe into the balloon port on the catheter. The syringe fits tightly into the port with a firm push and twist motion. Wait as the water from the balloon empties into the syringe. Depending on how large the balloon is,you may need to repeat this process several times until all of the water is out of the balloon. Once the balloon is emptied, gently pull out the catheter. Put the used catheter in the wastebasket. Throw away the syringe. Use the towel to wipe up any spilled water or urine if needed. Wash your hands again. When to Call Your Healthcare Provider Call the healthcare provider right away if: You have a fever of 100.4 F (38 C) or higher, or as directed by your healthcare provider. You have questions about removing the catheter. The catheter does not come out with gentle pulling. You cannot urinate within 8 hours of removing the catheter. Your belly (abdomen) is painful or bloated You have burning pain with urination that lasts for 24 hours. You see a lot of blood in your urine. Light bleeding for 24 hours is normal. It feels like the bladder is not emptying. Follow Up Care 08/18/2023 11:39:29 With:Patito Sweet Address: [address] [phone] Business (1) When: Unknown Comments:Call for followup appointment in 1 month with IGG[facility]12-06-2023 Evaluation note* Encounter Date Diagnosis Assessment Notes Treatment Notes Treatment Clinical Notes Sep, Cubital tunnel syndrome, left (ICD-10 - G56.22) Sep, Other specified postprocedural states (ICD-10 - Z98.890) Sep, Left lateral epicondylitis (ICD-10 - M77.12) Patient was prepped and area of left lateral epicondyle was injected under sterile conditions. Patient tolerated well with no adverse reactions. Tennis elbow strap applied. Examination and assessment of this patient was performed by Janine Maynard NP and patient will continue with the treatment plan per Dr. Scott, who initiated this treatment plan. Dr. Ruiz is present in the office today and providing supervision. [facility] Other 11-22-2023 Evaluation note* Encounter Date Diagnosis Assessment Notes Treatment Notes Treatment Clinical Notes Aug, Cubital tunnel syndrome, left (ICD-10 - G56.22) Lima is here now 1 week s/p left cubital tunnel release. He is doing well. Surgical incision and physical exam are overall benign. Sutures removed today. He has already had subjective improvement in his sensation. I explained to to him that he can return to activity slowly but without restrictions. He should continue to monitor the surgical site for any signs of infection. Will plan to see him back in 3 months if needed Sutures removed today and steri strips placed over the incision under sterile conditions. Patient tolerated well with no adverse reactions. May allow incision to get wet in clean running water, no alvarado/pablo/streams. Instructed to progress activity as tolerated. Prescription for cyclobenzaprine was sent into patients pharmacy Aug, Other specified postprocedural states (ICD-10 - Z98.890) Aug, Encounter for removal of sutures (ICD-10 - Z48.02) Aug, Other See orders for this visit as documented in the electronic medical record. [facility] Other 11-20-2023 Note [id number] 07-26-2023 Evaluation note* Encounter Date Diagnosis Assessment Notes Treatment Notes Treatment Clinical Notes Jul, Left carpal tunnel syndrome (ICD-10 - G56.02) Lima is here today s/p bilateral carpal tunnel release. He is doing well. Physical exam is overall benign. He can continue working on strengthening. Continue to monitor. Follow-up as needed Jul, Other specified postprocedural states (ICD-10 - Z98.890) Jul, Cubital tunnel syndrome, left (ICD-10 - G56.22) Today we have discussed cubital tunnel syndrome. 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 Physical exam findings have also been discussed. Electromyography and nerve conduction study findings associated with ulnar neuropathy and cubital tunnel syndrome have been discussed at length with the patient. Nonoperative treatment including NSAIDs, activity modification and elbow splinting have been discussed and offered. Operative intervention of ulnar nerve decompression with or without transposition has been discussed. Complications including recurrence of symptoms, incomplete resolution of symptoms as well as neuroma formation have been discussed specifically. At this time the patient would like to proceed with cubital tunnel release. Lima presents with EMG positive left cubital tunnel syndrome. At this juncture we have discussed the findings and diagnosis as well as reviewed appropriate imaging and performed interpretation of testing. Surgical intervention is recommended. Prior medical notes and history have been reviewed. Surgical versus non-operative management have been discussed in detail and non-operative management was given as an option. The risks of surgical intervention were given. Pre-operative optimization will be done prior to surgical procedure to limit deepti-operative risks. I have discussed the planned procedure, how and who performs the procedure, and the personnel involved. Cardiovascular, pulmonary, and other life threatening episodes can occur during surgery although there is a low risk of these happening. Surgical risks including bleeding, neurovascular injury, wound closure problems and infection were discussed. Deepti-operative risks including infection, bleeding, wound healing problems, and need for further surgery were discussed. It was discussed that there is a possibility of blood transfusion with any surgical procedure and the risks involved in receiving a blood transfusion. Possibility of, and need for, future bracing or DME use, physical or occupational therapy, mental therapy, rehabilitation, pain management and need for secondary procedures was discussed. I have warned against smoking and the use of tobacco products due to the risks associated with them, in particular, poor healing. I have advised against the mcfp use of narcotic pain medication. I have advised to follow all post-operative instructions in order to obtain the best outcome. Informed consent has been verbally affirmed and signed as indicated. Based on the patient's symptoms EMG and physical exam, it appears that they are suffering from cubital tunnel syndrome. Etiology of the symptoms were discussed with the patient. He has failed conservative treatment and would like to preceed with surgery. The risks, benefits, complications, procedure detail were discussed in length with the patient. We discussed risks including but not limited to infection, damage to nearby structures, wound healing problems, damage to vasculature, damage to nerves, risk with anesthesia. 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 This glandis about 1.5 inches wide and 1 inch high, and it is involved in making semen. The prostate is located below a man's bladder, in front of the rectum. There are four types of prostatitis: Chronic prostatitis (CP), also called chronic pelvic pain syndrome (CPPS). This is the most common type of prostatitis. It is associated with increased muscle tone in the area between the hip bones (pelvic area), around the prostate. This type is also known as a pelvic floor disorder. Chronic bacterial prostatitis. This type usually results from an acute bacterial infection in the prostate gland that keeps coming back or has not been treated properly. The symptoms are less severe than those caused by acute bacterial prostatitis, which lasts a shorter time. Asymptomatic inflammatory prostatitis. This type does not have symptoms and does not need treatment. This is diagnosed when tests are done for other disorders of the urinary tract or reproductive tract. Acute bacterial prostatitis. This type starts quickly and results from an acute bacterial infectionin the prostate gland. It is usually associated with a bladder infection, high fever, and chills. This is the least common type of prostatitis. What are the causes? Bacterial prostatitis is caused by an infection from bacteria. Chronic nonbacterial prostatitis may be caused by: Factors related to the nervous system. This system includes thebrain, spinal cord, and nerves. An autoimmune response. This happens when the body's disease-fighting system attacks healthy tissuein the body by mistake. Psychological factors. These have to do with how the mind works. The causes of the other types of prostatitis are usually not known. What are the signs or symptoms? Symptoms of this condition depend on the type of prostatitis you have. Acute bacterial prostatitis Symptoms may include: Pain or burning during urination. Frequent and sudden urges to urinate. Trouble starting to urinate. Fever. Chills. Pain in your muscles or joints, lower back, or lower abdomen. Other types of prostatitis Symptoms may include: Sudden urges to urinate, or urinating often. Trouble starting to urinate. Weak urine stream. Dribbling after urination. Discharge coming from the penis. Pain in the testicles, the penis, or the tip of the penis. Pain in the area in front of the rectum and below the scrotum (perineum). Pain when ejaculating. How is this diagnosed? This condition may be diagnosed based on: A physical and medical exam. A digital rectal exam. For this, the health care provider may use a finger to feel the prostate. A urine test to check for bacteria. A semen sample or blood tests. Ultrasound. Urodynamic tests to check how your body handles urine. Cystoscopy to look inside your bladder or inside the part of your body that drains urine from the bladder (urethra). How is this treated? Treatment for this condition depends on the type of prostatitis. Treatment may involve: Medicines to relieve pain or inflammation, or to help relax your muscles. Physical therapy. Heat therapy. Biofeedback. These techniques help you control certain body functions. Relaxation exercises. Antibiotic medicine, if your condition is caused by bacteria. Sitz baths. These warm water baths help to relax your pelvic floor muscles, which helps to relieve pressure on the prostate. Follow these instructions at home: Medicines Take hrqx-zyj-elwwzsm and prescription medicines only as told by your health care provider. If you were prescribed an antibiotic medicine, take it as told by your health care provider. Do notstop using the antibiotic even if you start to feel better. Managing pain and swelling Take sitz baths as directed by your health care provider. For a sitz bath, sit in warm water that is deep enough to cover your hips and buttocks. If directed, apply heat to the affected area as often as told by your health care provider. Use theheat source that your health care provider recommends, such as a moist heat pack or a heating pad. ?Place a towel between your skin and the heat source. ?Leave the heat on for 20 30 minutes. ?Remove the heat if your skin turns bright red. This is especially important if you are unable to feel pain, heat, or cold. You may have a greater risk of getting burned. General instructions Do exercises as told by your health care provider, if you were prescribed physical therapy, biofeedback, or relaxation exercises. Keep all follow-up visits as told by your health care provider. This is important. Where to find more information National [place] of Diabetes and Digestive and Kidney Diseases: https://www.niddk.nih.gov Contact a health care provider if: Your symptoms get worse. You have a fever. Get help right away if: You have chills. You feel light-headed or feel like you may faint. You cannot urinate. You have blood or blood clots in your urine. Summary Prostatitis is swelling or inflammation of the prostate gland. Treatment for this condition depends on the type of prostatitis. Take ezcg-bnt-poyvynh and prescription medicines only as told by your health care provider. Get help right away of you have chills, feel light-headed, feel like you may faint, cannot urinate,or have blood or blood clots in your urine. This information is not intended to replace advice given to you by your health care provider. Make sure you discuss any questions you have with your health care provider. Document Revised: 11/06/2020 Document Reviewed: 11/06/2020 [employer] Patient Education 2022 [employer] [place]. Follow Up Care 07/13/2023 09:28:59 With:JANINE GARCIA PA-C, URL Address: [address] [place] [place] [address] When: Unknown Comments:follow up with JEFFERY hernandez [facility] 09-21-2023 Evaluation note* Encounter Date Diagnosis Assessment Notes Treatment Notes Treatment Clinical Notes Jun, Sacroiliitis, not elsewhere classified (ICD-10 - M46.1) Patient denies any complaints of pain in the area at this time. He attributes this to a recent right sacroiliac joint injection. We will continue to monitor and proceed with repeat treatment to the area as needed. In the meantime, he will continue with Tramadol 50 mg to be taken as needed for breakthrough pain, very sparingly with benefit. OARRS was processed and reviewed, no discrepancies. Risks and side effects of this medication was discussed in detail with the patient who voiced understanding. He does not need a refill at this time. Anatomy of spine discussed in detail with patient in regard to patients condition. Overall, patient believes their pain is reasonably well controlled and he is in agreement with our treatment plan. Jun, Cervical arthritis (ICD-10 - M47.812) Patient continues to voice some complaints of cervical pain at this time. He was encouraged to continue with physical therapy as previously ordered as well as an upcoming EMG. Should his symptoms persist, we can consider ordering an MRI of his cervical spine. Anatomy of spine discussed in detail with patient in regards to patients condition. Jun, Other chronic pain (ICD-10 - G89.29) Jun, Other Above note writ ten by Germain Bowles MA, Car Shakeout Operator. Edited and approved by Dr. Tomi Leach MD. [facility] Other 09-15-2023 Evaluation note* Encounter Date Diagnosis Assessment Notes Treatment Notes Treatment Clinical Notes Jun, Left carpal tunnel syndrome (ICD-10 - G56.02) Lima is here today s/p bilateral carpal tunnel release. He is doing well. Physical exam is overall benign. He can continue working on strengthening. He is having some cubital tunnel symptoms on the left side but is also being treated for some cervical spine issues right now which she feels is the main culprit. He has not had any evidence of an ulnar neuropathy until he had an elbow injury but he is also complaining of neck pain. At this time we will repeat a EMG to see if we can discern from neck versus elbow pathology follow-up after EMG Jun, Other specified postprocedural states (ICD-10 - Z98.890) Jun, Contusion of left elbow, initial encounter (ICD-10 - S50.02XA) As patient continues to experience symptoms, we will order a repeat EMG at this time. Based on EMG results, may consider further work up of the cervical spine. Jun, Body mass index [BMI]40.0-44.9, adult (ICD-10 - Z68.41) Jun, Other See orders for this visit as documented in the electronic medical record. [facility] Other 08-28-2023 Evaluation note* Encounter Date Diagnosis Assessment Notes Treatment Notes Treatment Clinical Notes May, Left carpal tunnel syndrome (ICD-10 - G56.02) Lima is here today now 6 week s/p left carpal tunnel release in about 12 weeks s/p right carpal tunnel release. He is doing well. Physical exam is overall benign. He can continue working on strengthening. He is having some cubital tunnel symptoms on the left side but is also being treated for some cervical spine issues right now which she feels is the main culprit. I have asked him to continue to monitor this. His EMG did not show any cubital tunnel signs but this continues to be an issue we could possibly need to repeat his EMG. Patient will continue to monitor the pinky numbness/pain. He may need to discuss symptoms with Dr. Leach for a cervical spine work up. May, Other specified postprocedural states (ICD-10 - Z98.890) May, Contusion of left elbow, initial encounter (ICD-10 - S50.02XA) May, Body mass index [BMI]40.0-44.9, adult (ICD-10 - Z68.41) May, Other See orders for this visit as documented in the electronic medical record. [facility] Other 08-16-2023 Hospital Discharge instructions Patient Education 05/31/2023 09:47:22 Benign Prostatic Hyperplasia Benign Prostatic Hyperplasia Benign prostatic hyperplasia (BPH) is an enlarged prostate gland that is caused by the normal agingprocess. The prostate may get bigger as a man gets older. The condition is not caused by cancer. The prostate is a walnut-sized gland that is involved in the production of semen. It is located in front of the rectum and below the bladder. The bladder stores urine. The urethra carries stored urine ou t of the body. An enlarged prostate can press on the urethra. This can make it harder to pass urine. The buildup of urine in the bladder can cause infection. Back pressure and infection may progress to bladder damage and kidney (renal) failure. What are the causes? This condition is part of the normal aging process. However, not all men develop problems from thiscondition. If the prostate enlarges away from the urethra, urine flow will not be blocked. If it enlarges toward the urethra and compresses it, there will be problems passing urine. What increases the risk? This condition is more likely to develop in men older than 50 years. What are the signs or symptoms? Symptoms of this condition include: Getting up often during the night to urinate. Needing to urinate frequently during the day. Difficulty starting urine flow. Decrease in size and strength of your urine stream. Leaking (dribbling) after urinating. Inability to pass urine. This needs immediate treatment. Inability to completely empty your bladder. Pain when you pass urine. This is more common if there is also an infection. Urinary tract infection (UTI). How is this diagnosed? This condition is diagnosed based on your medical history, a physical exam, and your symptoms. Tests will also be done, such as: A post-void bladder scan. This measures any amount of urine that may remain in your bladder after you finish urinating. A digital rectal exam. In a rectal exam, your health care provider checks your prostate by putting a lubricated, gloved finger into your rectum to feel the back of your prostate gland. This exam detects the size of your gland and any abnormal lumps or growths. An exam of your urine (urinalysis). A prostate specific antigen (PSA) screening. This is a blood test used to screen for prostate cancer. An ultrasound. This test uses sound waves to electronically produce a picture of your prostate gland. Your health care provider may refer you to a specialist in kidney and prostate diseases (urologist). How is this treated? Once symptoms begin, your health care provider will monitor your condition (active surveillance or watchful waiting). Treatment for this condition will depend on the severity of your condition. Treatment may include: Observation and yearly exams. This may be the only treatment needed if your condition and symptoms are mild. Medicines to relieve your symptoms, including: ?Medicines to shrink the prostate. ?Medicines to relax the muscle of the prostate. Surgery in severe cases. Surgery may include: ?Prostatectomy. In this procedure, the prostate tissue is removed completely through an open incision or with a laparoscope or robotics. ?Transurethral resection of the prostate (TURP). In this procedure, a tool is inserted through the opening at the tip of the penis (urethra). It is used to cut away tissue of the inner core of the prostate. The pieces are removed through the same opening of the penis. This removes the blockage. ?Transurethral incision (TUIP). In this procedure, small cuts are made in the prostate. This lessens the prostate's pressure on the urethra. ?Transurethral microwave thermotherapy (TUMT). This procedure uses microwaves to create heat. The heat destroys and removes a small amount of prostate tissue. ?Transurethral needle ablation (TUNA). This procedure uses radio frequencies to destroy and remove a small amount of prostate tissue. ?Interstitial laser coagulation (ILC). This procedure uses a laser to destroy and remove a small amount of prostate tissue. ?Transurethral electrovaporization (TUVP). This procedure uses electrodes to destroy and remove a small amount of prostate tissue. ?Prostatic urethral lift. This procedure inserts an implant to push the lobes of the prostate away from the urethra. Follow these instructions at home: Take nuuq-xqx-xpoifty and prescription medicines only as told by your health care provider. Monitor your symptoms for any changes. Contact your health care provider with any changes. Avoid drinking large amounts of liquid before going to bed or out in public. Avoid or reduce how much caffeine or alcohol you drink. Give yourself time when you urinate. Keep all follow-up visits. This is important. Contact a health care provider if: You have unexplained back pain. Your symptoms do not get better with treatment. You develop side effects from the medicine you are taking. Your urine becomes very dark or has a bad smell. Your lower abdomen becomes distended and you have trouble passing urine. Get help right away if: You have a fever or chills. You suddenly cannot urinate. You feel light-headed or very dizzy, or you faint. There are large amounts of blood or clots in your urine. Your urinary problems become hard to manage. You develop moderate to severe low back or flank pain. The flank is the side of your body between the ribs and the hip. These symptoms may be an emergency. Get help right away. Call 911. Do not wait to see if the symptoms will go away. Do not drive yourself to the hospital. Summary Benign prostatic hyperplasia (BPH) is an enlarged prostate that is caused by the normal aging process. It is not caused by cancer. An enlarged prostate can press on the urethra. This can make it hard to pass urine. This condition is more likely to develop in men older than 50 years. Get help right away if you suddenly cannot urinate. This information is not intended to replace advice given to you by your health care provider. Make sure you discuss any questions you have with your health care provider. Document Revised: 04/20/2022 Document Reviewed: 04/20/2022 [employer] Patient Education 2022 [employer] [place]. Follow Up Care 05/10/2023 14:32:19 With:Kee NAVARRO, RENATA Ghotra, URO Address: When: Unknown Comments:sched Cysto [facility] 06-09-2023 Evaluation note* Encounter Date Diagnosis Assessment Notes Treatment Notes Treatment Clinical Notes Mar, Right carpal tunnel syndrome (ICD-10 - G56.01) Lima is here now 1 week s/p right carpal tunnel release. He is doing well. He has no complaints today. His surgical incision is benign and sutures been removed today. His physical exam is benign. Continue to work on strengthening of the hand at home. We discussed that this could take several months to fully recover. Verbalized understanding. We will plan to get his left carpal tunnel release done soon as possible Instructed on application of Neosporin to incision to help dryness. Sutures removed today under sterile conditions. Patient tolerated well with no adverse reactions. May allow incision to get wet in clean running water, no alvarado/pablo/stream s. Instructed on 2-5 lb weight restriction, may slowly progress as heals. Mar, Other specified postprocedural states (ICD-10 - Z98.890) Mar, Encounter for removal of sutures (ICD-10 - Z48.02) Mar, Left carpal tunnel syndrome (ICD-10 - G56.02) Plan to move forward with left carpal tunnel release in 6 weeks after injection We will plan on carpal tunnel release.The patient has stated that they do not want to live in this condition any longer and would like to proceed with surgery. I feel that this is a reasonable option at this point and we may be able to improve function and decrease pain and numbness. We have discussed the process and procedure in detail including not eating or drinking 8 hrs prior to surgery, the need for anesthesia and associated respiratory, cardiac, and patient position complications (such as nerve traction and compression). We discussed that incisional pain and continued neurologic symptoms can persist for months after surgery. The complications of infection, persistent symptoms, sensory and motor nerve injury are well known problems that can require repeat surgeries. Patient is fully aware that this wrist may never be the same. We discussed that our team will do everything we can to help achieve the best outcome. Mar, Preop examination (ICD-10 - Z01.818) Mar, Other See orders for this visit as documented in the electronic medical record. [facility] Other 05-25-2023 Hospital Discharge instructions Follow Up Care 03/09/2023 11:30:53 With:Kee NAVARRO, RENATA Ghotra, URO Address: When: Unknown Comments:[facility] 05-12-2023 Evaluation note* Encounter Date Diagnosis Assessment Notes Treatment Notes Treatment Clinical Notes February, Contusion of left elbow, initial encounter (ICD-10 - S50.02XA) Seems to be improving at this time. We will continue to monitorThe patient has been involved in our cooperative treatment plan and agrees to move forward with treatment at this time. February, Left carpal tunnel syndrome (ICD-10 - G56.02) Findings and diagnosis of carpal tunnel syndrome have been discussed at length with the patient. We have discussed how it is the most common compressive neuropathy effects up to 10% of the population. Diagnostic evaluation including physical exam as well as electromyography and nerve conduction studies were discussed. Imaging and diagnostic studies have been reviewed with the patient. Nonoperative treatment including NSAIDs, night splints as well as activity modifications along with steroid injections have been discussed. We have discussed open surgical release of the transverse carpal ligament which is performed during carpal tunnel surgery. 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 Patient verbalized understanding of our discussion. We did obtain an EMG which shows mild carpal tunnel syndrome. He wants to move forward with right followed by left carpal tunnel release. At this juncture we have discussed the findings and diagnosis as well as reviewed appropriate imaging and performed interpretation of testing. Surgical intervention is recommended. Prior medical notes and history have been reviewed. Surgical versus non-operative management have been discussed in detail and non-operative management was given as an option. The risks of surgical intervention were given. Pre-operative optimization will be done prior to surgical procedure to limit deepti-operative risks. I have discussed the planned procedure, how and who performs the procedure, and the personnel involved. Cardiovascular, pulmonary, and other life threatening episodes can occur during surgery although there is a low risk of these happening. Surgical risks including bleeding, neurovascular injury, wound closure problems and infection were discussed. Deepti-operative risks including infection, bleeding, wound healing problems, and need for further surgery were discussed. It was discussed that there is a possibility of blood transfusion with any surgical procedure and the risks involved in receiving a blood transfusion. Possibility of, and need for, future bracing or DME use, physical or occupational therapy, mental therapy, rehabilitation, pain management and need for secondary procedures was discussed. I have warned against smoking and the use of tobacco products due to the risks associated with them, in particular, poor healing. 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 I have advised to follow all post-operative instructions in order to obtain the best outcome. Informed consent has been verbally affirmed and signed as indicated. We will plan to move forward with right carpal tunnel release patient's request February, Right carpal tunnel syndrome (ICD-10 - G56.01) Lima returns to review EMG results today. This appears to be Carpal Tunnel Syndrome. We discussed the cause of this condition and the treatment options. We discussed the use of cortisone injection into the carpal tunnel can be helpful in relieving painful symptoms .We also discussed the use of wearing braces and hand occupational therapy can help with symptoms. We also discussed the option of surgical release which can eliminate the problem. Patient voiced understanding and opts to treat with carpal tunnel release. CONSENT: Pt was explained risks, benefits and alternatives to surgery including but not limited to bleeding, infection, need for further surgery, scarring, wound healing issues, and nerve injury. Pt understands these risks and wishes to proceed. [facility] Other 05-01-2023 Hospital Discharge instructions Additional Instructions Dr. Scott's discharge instructions Carpal tunnel release Maintain your postoperative dressing for 72 hours after surgery. After this time the dressing can be removed. After dressing removal you may cleanse your incision with warm soapy water. You may keep the incision covered with a Band-Aid if you wish. You should use diligent icing for the first several days after surgery as this will help with swelling. We will plan to remove the sutures at your follow-up appointment. Elevation of your hand above the level of your heart can help with swelling and inflammation. You are weightbearing as tolerated and range of motion as tolerated to the hand wrist and fingers, protect the surgical site from injury. Take medications as prescribed. You may take NSAIDs/Tylenol qrbh-bac-zrmbjvx as indicated on the bottle. Follow-up in office as scheduled, approximately one week after surgery. Call the office with any questions or concerns. Dr. Gaurav Scott [facility] [address] [place], [place] [id number] [facility] Phone: [phone]) [phone] Evaluation note* Encounter Date Diagnosis Assessment Notes Treatment Notes Treatment Clinical Notes Jan, Sacroiliitis, not elsewhere classified (ICD-10 - M46.1) We discussed treatment options for the patient's persistent low right lumbar/gluteal pain. He shows notable pain consistent with the sacroiliac joint. He has failed multiple previous conservative treatment options. Given location of pain and exam findings, patient is a candidate for right sacroiliac joint injection, which we will proceed with. Risks and benefits of procedure explained to patient; patient verbalizes understanding. In the meantime given severity of overall pain symptoms, we will prescribe Tramadol 50 mg to be taken as needed for breakthrough pain, he has taken this in the past very sparingly with benefit. OARRS was processed and reviewed, no discrepancies. Risks and side effects of this medication was discussed in detail with the patient who voiced understanding. Anatomy of spine discussed in detail with patient in regard to patients condition. Jan, Other low back pain (ICD-10 - M54.59) Jan, Other chronic pain (ICD-10 - G89.29) Jan, Other Above note writ ten by Lakshmi Lorenzo LPN, Car Shakeout Operator. Edited and approved by Dr. Tomi Leach MD. [facility] Other 04-19-2023 Evaluation note* Encounter Date Diagnosis Assessment Notes Treatment Notes Treatment Clinical Notes Jan, Contusion of left elbow, initial encounter (ICD-10 - S50.02XA) Lima presents with left elbow contusion. At this juncture we have discussed the findings and diagnosis as well as personally reviewed appropriate imaging and performed interpretation of related testing and examination with the patient in office today. Prior medical notes [facility] ED and history have been reviewed. At this time I would recommend continued conservative treatment with icing and anti-inflammatories. He was given steroids to the ED and will continue to take these until completed. I have prescribed Flexeril today. Padding as needed. We will plan for follow-up 3 weeks. The patient has been involved in our cooperative treatment plan and agrees to move forward with treatment at this time. Extensive discussion about current condition and treatment options available. Instructed on gentle motion exercises of the elbow. Sent in cyclobenzaprine and advised patient contact Dr Devika Leach for tramadol as he is under a pain contract with him. Finish oral steroid as prescribed. If no improvement may consider further evaluation and treatment options. Jan, Left carpal tunnel syndrome (ICD-10 - G56.02) Findings and diagnosis of carpal tunnel syndrome have been discussed at length with the patient. We have discussed how it is the most common compressive neuropathy effects up to 10% of the population. Diagnostic evaluation including physical exam as well as electromyography and nerve conduction studies were discussed. Imaging and diagnostic studies have been reviewed with the patient. Nonoperative treatment including NSAIDs, night splints as well as activity modifications along with steroid injections have been discussed. We have discussed open surgical release of the transverse carpal ligament which is performed during carpal tunnel surgery. 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 Patient verbalized understanding of our discussion and would like to move forward with EMG at this time. We will order EMG for further evaluation. May consider following with carpal tunnel release. Jan, Right carpal tunnel syndrome (ICD-10 - G56.01) Jan, Other See orders for this visit as documented in the electronic medical record. [facility] Other 04-03-2023 Evaluation + Plan noteExtracted from: Title:EU Local Cysto w/ L Stent Removal - FT Aut hor:Patito Sweet MD. Date:01/16/23 Patient: LIMA LOYD Age: 57 years Sex: Male : 1965 Associated Diagnoses: None Author: Patito Sweet MD Procedure Operative Information Details: Date/ Time: 01/16/2023 08:56:00. Pre-Op Dx: Foreign body in bladder ([id number] T19.1XXA, Billing Diagnosis, Medical), Kidney stone (HQR23-RN N20.0, Discharge, Medical). Post-Op Dx: Same. Anesthesia Type: Local. Procedure: Local Cystoscopy with Stent Removal, Left . Complications: None. Risks/Benefits/Informed Consent: Surgical risks, benefits, details of the procedure have been explained to the patient, Full informed consent has been obtained. Intraoperative Information Prepped: The patient was placed in supine position, The patient was prepped with the Betadine solution. Anesthesia: 2% Xylocaine Jelly per urethra. Procedure: Cystoscopy and Left Stent Removal, The flexible Cystoscope was passed in retrograde fashion into the bladder without difficulty, The bladder was viewed in entirety and found to be without tumors or stones, Mild inflammation was seen surrounding the orifice with the stent seen protruding from it, The stent was then grasped and removed in its entirety. Specimens Removed: None. Devices Implanted: None. Postoperative Information Discharge: The patient tolerated the procedure well and was subsequently discharged home. Serum metabolic workup wnl including uric acid and Ca. 24 hr urine to be done, review at follow up with renal US and KUB in 6-8 wks . Addendum by Patito Sweet MD on January 16, 2023 8:58 EDT Stone analysis from recent procedure not available yet. Prior stones were 100% CaOx mono Future Appointments Appointment Date:03/09/2023 10:15:00 AM Scheduled Provider:Patito Sweet MD Location:[facility] Appointment Type:URO Office Visit [facility]04-03-2023 Hospital Discharge instructions Patient Education 01/16/2023 08:53:16 EU - Cystoscopy with Stent Removal Discharge Instructions (CUSTOM) Cystoscopy with Stent Removal Voiding after the procedure: there may be some pain, burning, urgency, frequency and blood tinged urine following the procedure. These symptoms usually resolve within 2-5 days. Drink the amount of fluid it takes to keep the urine pink to yellow or clear in color. Drinking enough water and fluids will help to ease any discomfort after your procedure. If you are having problems that seem out of the ordinary, please call. If unable to contact your physician and you feel it is an emergency, go to the nearest emergency room or call 911 Diet you may resume your normal diet. Activity you may resume your normal activities Call if you have a fever over 100 degrees. Follow Up Care 01/12/2023 09:39:17 With:Patito Sweet Address: [address] [place] [address] [phone] Business (1) [facility] Rui Roberts [address] [address] [phone] Business (1) When: Unknown Comments:Office to schedule follow up in 6-8 wks with renal US, KUB and metabolic stone workup [facility]03-08-2023 Hospital Discharge instructions Patient Education 12/21/2022 08:06:14 Kidney Stones, Dgod-uh-Rcfn Kidney Stones Kidney stones are rock-like masses that form inside of the kidneys. Kidneys are organs that make pee (urine). A kidney stone may move into other parts of the urinary tract, including: The tubes that connect the kidneys to the bladder (ureters). The bladder. The tube that carries urine out of the body (urethra). Kidney stones can cause very bad pain and can block the flow of pee. The stone usually leaves your body (passes) through your pee. You may need to have a doctor take out the stone. What are the causes? Kidney stones may be caused by: A condition in which certain glands make too much parathyroid hormone (primary hyperparathyroidism). A buildup of a type of crystals in the bladder made of a chemical called uric acid. The body makes uric acid when you eat certain foods. Narrowing (stricture) of one or both of the ureters. A kidney blockage that you were born with. Past surgery on the kidney or the ureters, such as gastric bypass surgery. What increases the risk? You are more likely to develop this condition if: You have had a kidney stone in the past. You have a family history of kidney stones. You do not drink enough water. You eat a diet that is high in protein, salt (sodium), or sugar. You are overweight or very overweight (obese). What are the signs or symptoms? Symptoms of a kidney stone may include: Pain in the side of the belly, right below the ribs (flank pain). Pain usually spreads (radiates) to the groin. Needing to pee often or right away (urgently). Pain when going pee (urinating). Blood in your pee (hematuria). Feeling like you may vomit (nauseous). Vomiting. Fever and chills. How is this treated? Treatment depends on the size, location, and makeup of the kidney stones. The stones will often pass out of the body through peeing. You may need to: Drink more fluid to help pass the stone. In some cases, you may be given fluids through an IV tube put into one of your veins at the hospital. Take medicine for pain. Make changes in your diet to help keep kidney stones from coming back. Sometimes, medical procedures are needed to remove a kidney stone. This may involve: A procedure to break up kidney stones using a beam of light (laser) or shock waves. Surgery to remove the kidney stones. Follow these instructions at home: Medicines Take gjqc-mys-jdgqyzt and prescription medicines only as told by your doctor. Ask your doctor if the medicine prescribed to you requires you to avoid driving or using heavy machinery. Eating and drinking Drink enough fluid to keep your pee pale yellow. You may be told to drink at least 8 10 glasses of water each day. This will help you pass the stone. If told by your doctor, change your diet. This may include: ?Limiting how much salt you eat. ?Eating more fruits and vegetables. ?Limiting how much meat, poultry, fish, and eggs you eat. Follow instructions from your doctor about eating or drinking restrictions. General instructions Collect pee samples as told by your doctor. You may need to collect a pee sample: ?24 hours after a stone comes out. ?8 12 weeks after a stone comes out, and every 6 12 months after that. Strain your pee every time you pee (urinate), for as long as told. Use the strainer that your doctor recommends. Do not throw out the stone. Keep it so that it can be tested by your doctor. Keep all follow-up visits as told by your doctor. This is important. You may need follow-up tests. How is this prevented? To prevent another kidney stone: Drink enough fluid to keep your pee pale yellow. This is the best way to prevent kidney stones. Eat healthy foods. Avoid certain foods as told by your doctor. You may be told to eat less protein. Stay at a healthy weight. Where to find more information National Kidney Foundation (NKF): www.kidney.org [facility] (U[facility]): www.urologyhealth.org Contact a doctor if: You have pain that gets worse or does not get better with medicine. Get help right away if: You have a fever or chills. You get very bad pain. You get new pain in your belly (abdomen). You pass out (faint). You cannot pee. Summary Kidney stones are rock-like masses that form inside of the kidneys. Kidney stones can cause very bad pain and can block the flow of pee. The stones will often pass out of the body through peeing. Drink enough fluid to keep your pee pale yellow. This information is not intended to replace advice given to you by your health care provider. Make sure you discuss any questions you have with your health care provider. Document Released: 03/20/2009 Document Revised: 02/18/2020 Document Reviewed: 02/18/2020 [employer] Patient Education 2019 [employer] [place]. Follow Up Care 11/30/2022 15:07:22 With:Kee NAVARRO, RENATA Ghotra, URO Address: When: Unknown [facility] 02-09-2023 Evaluation note* Encounter Date Diagnosis Assessment Notes Treatment Notes Treatment Clinical Notes Nov, Sacroiliitis, not elsewhere classified (ICD-10 - M46.1) Patient is also continues to voice complaints of right sided low lumbar/gluteal pain however we will hold off on further treatment in this region until his current urology issues are resolved. Nov, Right flank pain (ICD-10 - R10.9) Patients primary complaint today is persistent right flank pain following several treatments/ procedures for multiple kidney stones. Patient was sent for a possible nerve block however he notes an upcoming surgery scheduled for next week with urology therefore we will hold off at this time. Patient is in agreement. We will see how he does with the surgery; if he has residual pain we will consider proceeding with a nerve block. Our office will reach our ro urology for further clarification. In the meantime, given the severity of his symptoms, I will prescribe a temporary supply of [place] 5-325 up to twice daily as needed. OARRS was processed and reviewed, no discrepencies. Risks and side effects of this medication was discussed in detail with the patient who voiced understanding. Additionally, Flexeril was refilled today. We will follow up with the patient after his upcoming procedure. Nov, Other chronic pain (ICD-10 - G89.29) Nov, Other Above note writ ten by Germain Bowles MA, Car Shake[employer] Operator. Edited and approved by Dr. Tomi Leach MD. [facility] Other 02-09-2023 Evaluation note* Encounter Date Diagnosis Assessment Notes Treatment Notes Treatment Clinical Notes Nov, Right flank pain (ICD-10 - R10.9) [facility] Other 01-19-2023 Hospital Discharge instructions Patient Education 11/03/2022 13:22:31 Dietary Guidelines to Help Prevent Kidney Stones Dietary Guidelines to Help Prevent Kidney Stones Kidney stones are deposits of minerals and salts that form inside your kidneys. Your risk of developing kidney stones may be greater depending on your diet, your lifestyle, the medicines you take, and whether you have certain medical conditions. Most people can reduce their chances of developing kidney stones by following the instructions below. Depending on your overall health and the type of kidney stones you tend to develop, your dietitian may give you more specific instructions. What are tips for following this plan? Reading food labels Choose foods with no salt added or low-salt labels. Limit your sodium intake to less than 1500 mg per day. Choose foods with calcium for each meal and snack. Try to eat about 300 mg of calcium at each meal.Foods that contain 200 500 mg of calcium per serving include: ?8 oz (237 ml) of milk, fortified nondairy milk, and fortified fruit juice. ?8 oz (237 ml) of kefir, yogurt, and soy yogurt. ?4 oz (118 ml) of tofu. ?1 oz of cheese. ?1 cup (300 g) of dried figs. ?1 cup (91 g) of cooked broccoli. ?1 3 oz can of sardines or mackerel. Most people need 1000 to 1500 mg of calcium each day. Talk to your dietitian about how much calciumis recommended for you. Shopping Buy plenty of fresh fruits and vegetables. Most people do not need to avoid fruits and vegetables, even if they contain nutrients that may contribute to kidney stones. When shopping for convenience foods, choose: ?Whole pieces of fruit. ?Premade salads with dressing on the side. ?Low-fat fruit and yogurt smoothies. Avoid buying frozen meals or prepared deli foods. Look for foods with live cultures, such as yogurt and kefir. Cooking Do not add salt to food when cooking. Place a salt shaker on the table and allow each person to addhis or her own salt to taste. Use vegetable protein, such as beans, textured vegetable protein (TVP), or tofu instead of meat in pasta, casseroles, and soups. Meal planning Eat less salt, if told by your dietitian. To do this: ?Avoid eating processed or premade food. ?Avoid eating fast food. Eat less animal protein, including cheese, meat, poultry, or fish, if told by your dietitian. To dothis: ?Limit the number of times you have meat, poultry, fish, or cheese each week. Eat a diet free of meat at least 2 days a week. ?Eat only one serving each day of meat, poultry, fish, or seafood. ?When you prepare animal protein, cut pieces into small portion sizes. For most meat and fish, one serving is about the size of one deck of cards. Eat at least 5 servings of fresh fruits and vegetables each day. To do this: ?Keep fruits and vegetables on hand for snacks. ?Eat 1 piece of fruit or a handful of berries with breakfast. ?Have a salad and fruit at lunch. ?Have two kinds of vegetables at dinner. Limit foods that are high in a substance called oxalate. These include: ?Spinach. ?Rhubarb. ?Beets. ?Potato chips and [place] fries. ?Nuts. If you regularly take a diuretic medicine, make sure to eat at least 1 2 fruits or vegetables high in potassium each day. These include: ?Avocado. ?Banana. ?[place], prune, carrot, or tomato juice. ?Baked potato. ?Cabbage. ?Beans and split peas. General instructions Drink enough fluid to keep your urine clear or pale yellow. This is the most important thing you can do. Talk to your health care provider and dietitian about taking daily supplements. Depending on your health and the cause of your kidney stones, you may be advised: ?Not to take supplements with vitamin C. ?To take a calcium supplement. ?To take a daily probiotic supplement. ?To take other supplements such as magnesium, fish oil, or vitamin B6. Take all medicines and supplements as told by your health care provider. Limit alcohol intake to no more than 1 drink a day for non women and 2 drinks a day for men. One drink equals 12 oz of beer, 5 oz of wine, or 1 oz of hard liquor. Lose weight if told by your health care provider. Work with your dietitian to find strategies and an eating plan that works best for you. What foods are not recommended? Limit your intake of the following foods, or as told by your dietitian. Talk to your dietitian about specific foods you should avoid based on the type of kidney stones and your overall health. Grains Breads. Bagels. Rolls. Baked goods. Salted crackers. Cereal. Pasta. Vegetables Spinach. Rhubarb. Beets. Canned vegetables. Pickles. Olives. Meats and other protein foods Nuts. Nut butters. Large portions of meat, poultry, or fish. Salted or cured meats. Deli meats. Hotdogs. Sausages. Dairy Cheese. Beverages Regular soft drinks. Regular vegetable juice. Seasonings and other foods Seasoning blends with salt. Salad dressings. Canned soups. Soy sauce. Ketchup. Barbecue sauce. Canned pasta sauce. Casseroles. Pizza. Lasagna. Frozen meals. Potato chips. [place] fries. Summary You can reduce your risk of kidney stones by making changes to your diet. The most important thing you can do is drink enough fluid. You should drink enough fluid to keep your urine clear or pale yellow. Ask your health care provider or dietitian how much protein from animal sources you should eat eachday, and also how much salt and calcium you should have each day. This information is not intended to replace advice given to you by your health care provider. Make sure you discuss any questions you have with your health care provider. Document Released: 01/27/2012 Document Revised: 01/22/2020 Document Reviewed: 09/12/2017 [employer] Patient Education 2020 [employer] [place]. Follow Up Care 11/03/2022 11:32:52 With:Patito Sweet MD, URL, URO Address: When: Unknown [facility] 01-11-2023 Evaluation + Plan note Diagnostic Tests Pending * Urine Culture 10/26/22 [facility]12-19-2022 Hospital Discharge instructions Follow Up Care 10/03/2022 10:36:41 With:Patito Sweet MD, URL, URO Address: When: Unknown [facility] 12-07-2022 Hospital Discharge instructions Patient Education 09/21/2022 09:23:11 Dietary Guidelines to Help Prevent Kidney Stones Dietary Guidelines to Help Prevent Kidney Stones Kidney stones are deposits of minerals and salts that form inside your kidneys. Your risk of developing kidney stones may be greater depending on your diet, your lifestyle, the medicines you take, and whether you have certain medical conditions. Most people can reduce their chances of developing kidney stones by following the instructions below. Depending on your overall health and the type of kidney stones you tend to develop, your dietitian may give you more specific instructions. What are tips for following this plan? Reading food labels Choose foods with no salt added or low-salt labels. Limit your sodium intake to less than 1500 mg per day. Choose foods with calcium for each meal and snack. Try to eat about 300 mg of calcium at each meal.Foods that contain 200 500 mg of calcium per serving include: ?8 oz (237 ml) of milk, fortified nondairy milk, and fortified fruit juice. ?8 oz (237 ml) of kefir, yogurt, and soy yogurt. ?4 oz (118 ml) of tofu. ?1 oz of cheese. ?1 cup (300 g) of dried figs. ?1 cup (91 g) of cooked broccoli. ?1 3 oz can of sardines or mackerel. Most people need 1000 to 1500 mg of calcium each day. Talk to your dietitian about how much calciumis recommended for you. Shopping Buy plenty of fresh fruits and vegetables. Most people do not need to avoid fruits and vegetables, even if they contain nutrients that may contribute to kidney stones. When shopping for convenience foods, choose: ?Whole pieces of fruit. ?Premade salads with dressing on the side. ?Low-fat fruit and yogurt smoothies. Avoid buying frozen meals or prepared deli foods. Look for foods with live cultures, such as yogurt and kefir. Cooking Do not add salt to food when cooking. Place a salt shaker on the table and allow each person to addhis or her own salt to taste. Use vegetable protein, such as beans, textured vegetable protein (TVP), or tofu instead of meat in pasta, casseroles, and soups. Meal planning Eat less salt, if told by your dietitian. To do this: ?Avoid eating processed or premade food. ?Avoid eating fast food. Eat less animal protein, including cheese, meat, poultry, or fish, if told by your dietitian. To dothis: ?Limit the number of times you have meat, poultry, fish, or cheese each week. Eat a diet free of meat at least 2 days a week. ?Eat only one serving each day of meat, poultry, fish, or seafood. ?When you prepare animal protein, cut pieces into small portion sizes. For most meat and fish, one serving is about the size of one deck of cards. Eat at least 5 servings of fresh fruits and vegetables each day. To do this: ?Keep fruits and vegetables on hand for snacks. ?Eat 1 piece of fruit or a handful of berries with breakfast. ?Have a salad and fruit at lunch. ?Have two kinds of vegetables at dinner. Limit foods that are high in a substance called oxalate. These include: ?Spinach. ?Rhubarb. ?Beets. ?Potato chips and [place] fries. ?Nuts. If you regularly take a diuretic medicine, make sure to eat at least 1 2 fruits or vegetables high in potassium each day. These include: ?Avocado. ?Banana. ?[place], prune, carrot, or tomato juice. ?Baked potato. ?Cabbage. ?Beans and split peas. General instructions Drink enough fluid to keep your urine clear or pale yellow. This is the most important thing you can do. Talk to your health care provider and dietitian about taking daily supplements. Depending on your health and the cause of your kidney stones, you may be advised: ?Not to take supplements with vitamin C. ?To take a calcium supplement. ?To take a daily probiotic supplement. ?To take other supplements such as magnesium, fish oil, or vitamin B6. Take all medicines and supplements as told by your health care provider. Limit alcohol intake to no more than 1 drink a day for non women and 2 drinks a day for men. One drink equals 12 oz of beer, 5 oz of wine, or 1 oz of hard liquor. Lose weight if told by your health care provider. Work with your dietitian to find strategies and an eating plan that works best for you. What foods are not recommended? Limit your intake of the following foods, or as told by your dietitian. Talk to your dietitian about specific foods you should avoid based on the type of kidney stones and your overall health. Grains Breads. Bagels. Rolls. Baked goods. Salted crackers. Cereal. Pasta. Vegetables Spinach. Rhubarb. Beets. Canned vegetables. Pickles. Olives. Meats and other protein foods Nuts. Nut butters. Large portions of meat, poultry, or fish. Salted or cured meats. Deli meats. Hotdogs. Sausages. Dairy Cheese. Beverages Regular soft drinks. Regular vegetable juice. Seasonings and other foods Seasoning blends with salt. Salad dressings. Canned soups. Soy sauce. Ketchup. Barbecue sauce. Canned pasta sauce. Casseroles. Pizza. Lasagna. Frozen meals. Potato chips. [place] fries. Summary You can reduce your risk of kidney stones by making changes to your diet. The most important thing you can do is drink enough fluid. You should drink enough fluid to keep your urine clear or pale yellow. Ask your health care provider or dietitian how much protein from animal sources you should eat eachday, and also how much salt and calcium you should have each day. This information is not intended to replace advice given to you by your health care provider. Make sure you discuss any questions you have with your health care provider. Document Released: 01/27/2012 Document Revised: 01/22/2020 Document Reviewed: 09/12/2017 [employer] Patient Education 2020 [employer] [place]. Follow Up Care 08/25/2022 10:58:56 With:Kee NAVARRO, RENATA Ghotra, URO Address: When:1 month [facility] 10-31-2022 Evaluation note* Encounter Date Diagnosis Assessment Notes Treatment Notes Treatment Clinical Notes Jul, Other spondylosis with radiculopathy, lumbar region (ICD-10 - M47.26) Jul, Sacroiliitis, not elsewhere classified (ICD-10 - M46.1) We discussed treatment options for the patient's persistent low right sided lumbar/gluteal pain. He saw neurosurgery who believes much of his pain may be related to his SI joint, the patient is in agreement to try conservative measures prior to considering further sugery. He shows notable pain consistent with the sacroiliac joint. He has failed multiple previous conservative treatment options. Given location of pain and exam findings, patient is a candidate for right sacroiliac joint injection, which we will proceed with. Risks and benefits of procedure explained to patient; patient verbalizes understanding. Finally, he has started physical therapy as well. Anatomy of spine discussed in detail with patient in regard to patients condition. Jul, Other low back pain (ICD-10 - M54.59) Jul, Other chronic pain (ICD-10 - G89.29) Jul, Other Above note writ ten by Lakshmi Lorenzo LPN, Car Shake[employer] Operator. Edited and approved by Dr. Tomi Leach MD. [facility] Other 10-27-2022 Evaluation note* Encounter Date Diagnosis Assessment Notes Treatment Notes Treatment Clinical Notes Jul, Neck pain (ICD-10 - M54.2) Jul, History of lumbar fusion (ICD-10 - Z98.1) Jul, Inflammation of right sacroiliac joint (ICD-10 - M46.1) Jul, Spinal stenosis of lumbar region, unspecified whether neurogenic claudication present (ICD-10 - M48.061) This gentleman had a lumbar fusion L4-5 20 years ago in [place]. Over the last year he has been noting buttock and leg discomfort down the back of his legs which may be claudicatory with prolonged standing and walking. He also has clinically a lot of sacroiliac pain on the right. The patient would like to try and avoid surgery as much as possible. W e will send him for physical therapy. In addition we will send him back to pain management for a sacroiliac injection on the right. We will see how he does and reevaluate him in 4 to 5 weeks. [facility] Other 10-26-2022 Hospital Discharge instructions Patient Education 08/10/2022 10:11:18 Erectile Dysfunction Erectile Dysfunction Erectile dysfunction (ED) is the inability to get or keep an erection in order to have sexual intercourse. Erectile dysfunction may include: Inability to get an erection. Lack of enough hardness of the erection to allow penetration. Loss of the erection before sex is finished. What are the causes? This condition may be caused by: Certain medicines, such as: ?Pain relievers. ?Antihistamines. ?Antidepressants. ?Blood pressure medicines. ?Water pills (diuretics). ?Ulcer medicines. ?Muscle relaxants. ?Drugs. Excessive drinking. Psychological causes, such as: ?Anxiety. ?Depression. ?Sadness. ?Exhaustion. ?Performance fear. ?Stress. Physical causes, such as: ?Artery problems. This may include diabetes, smoking, liver disease, or atherosclerosis. ?High blood pressure. ?Hormonal problems, such as low testosterone. ?Obesity. ?Nerve problems. This may include back or pelvic injuries, diabetes mellitus, multiple sclerosis, or Parkinson disease. What are the signs or symptoms? Symptoms of this condition include: Inability to get an erection. Lack of enough hardness of the erection to allow penetration. Loss of the erection before sex is finished. Normal erections at some times, but with frequent unsatisfactory episodes. Low sexual satisfaction in either partner due to erection problems. A curved penis occurring with erection. The curve may cause pain or the penis may be too curved to allow for intercourse. Never having nighttime erections. How is this diagnosed? This condition is often diagnosed by: Performing a physical exam to find other diseases or specific problems with the penis. Asking you detailed questions about the problem. Performing blood tests to check for diabetes mellitus or to measure hormone levels. Performing other tests to check for underlying health conditions. Performing an ultrasound exam to check for scarring. Performing a test to check blood flow to the penis. Doing a sleep study at home to measure nighttime erections. How is this treated? This condition may be treated by: Medicine taken by mouth to help you achieve an erection (oral medicine). Hormone replacement therapy to replace low testosterone levels. Medicine that is injected into the penis. Your health care provider may instruct you how to give yourself these injections at home. Vacuum pump. This is a pump with a ring on it. The pump and ring are placed on the penis and used to create pressure that helps the penis become erect. Penile implant surgery. In this procedure, you may receive: ?An inflatable implant. This consists of cylinders, a pump, and a reservoir. The cylinders can be inflated with a fluid that helps to create an erection, and they can be deflated after intercourse. ?A semi-rigid implant. This consists of two silicone rubber rods. The rods provide some rigidity. They are also flexible, so the penis can both curve downward in its normal position and become straight for sexual intercourse. Blood vessel surgery, to improve blood flow to the penis. During this procedure, a blood vessel from a different part of the body is placed into the penis to allow blood to flow around (bypass) damaged or blocked blood vessels. Lifestyle changes, such as exercising more, losing weight, and quitting smoking. Follow these instructions at home: Medicines Take essv-[id number] and prescription medicines only as told by your health care provider. Do not increase the dosage without first discussing it with your health care provider. If you are using self-injections, perform injections as directed by your health care provider. Makesure to avoid any veins that are on the surface of the penis. After giving an injection, apply pressure to the injection site for 5 minutes. General instructions Exercise regularly, as directed by your health care provider. Work with your health care provider to lose weight, if needed. Do not use any products that contain nicotine or tobacco, such as cigarettes and e-cigarettes. If you need help quitting, ask your health care provider. Before using a vacuum pump, read the instructions that come with the pump and discuss any questionswith your health care provider. Keep all follow-up visits as told by your health care provider. This is important. Contact a health care provider if: You feel nauseous. You vomit. Get help right away if: You are taking oral or injectable medicines and you have an erection that lasts longer than 4 hours. If your health care provider is unavailable, go to the nearest emergency room for evaluation. An erection that lasts much longer than 4 hours can result in permanent damage to your penis. You have severe pain in your groin or abdomen. You develop redness or severe swelling of your penis. You have redness spreading up into your groin or lower abdomen. You are unable to urinate. You experience chest pain or a rapid heart beat (palpitations) after taking oral medicines. Summary Erectile dysfunction (ED) is the inability to get or keep an erection during sexual intercourse. This problem can usually be treated successfully. This condition is diagnosed based on a physical exam, your symptoms, and tests to determine the cause. Treatment varies depending on the cause, and may include medicines, hormone therapy, surgery, orvacuum pump. You may need follow-up visits to make sure that you are using your medicines or devices correctly. Get help right away if you are taking or injecting medicines and you have an erection that lasts longer than 4 hours. This information is not intended to replace advice given to you by your health care provider. Make sure you discuss any questions you have with your health care provider. Document Released: 09/29/2001 Document Revised: 09/14/2018 Document Reviewed: 10/18/2017 [employer] Patient Education 2019 [employer] [place]. Follow Up Care 07/28/2022 15:43:12 With:Kee NAVARRO, RENATA Ghotra, URO Address: [address] [place] [phone] When: Unknown [facility] 10-18-2022 Evaluation note* Encounter Date Diagnosis Assessment Notes Treatment Notes Treatment Clinical Notes Jul, Other spondylosis with radiculopathy, lumbar region (ICD-10 - M47.26) Patients primary complaint today continues to be low back pain radiating into the posterior aspect of his right lower extremity, extending into his foot. He has exhausted multiple treatment options without benefit. Unfortunately, patient only experienced short term relief following a recent L5 right transforaminal and no relief following the most recent lumbar epidural. His symptoms remain consistent with neural foraminal narrowing particularly on the right side at L5-S1, seen on previous imaging. We discussed at this point I think it would be best to be evaluated by neurosurgery. In the meantime, given the severity of his symptoms, we will plan on trialing Cyclobenzaprine 10 mg as needed to try and help with spasm symptoms. Risks and side effects of this medication was discussed in detail with the patient who voiced understanding. Anatomy of spine discussed in detail with patient in regard to patients condition. Jul, Other low back pain (ICD-10 - M54.59) Jul, Other chronic pain (ICD-10 - G89.29) Jul, Other Above note writ ten by Lakshmi Lorenzo LPN, Car Shake[employer] Operator. Edited and approved by Dr. Tomi Leach MD. [facility] Other 10-06-2022 Evaluation note* Encounter Date Diagnosis Assessment Notes Treatment Notes Treatment Clinical Notes Jul, Other spondylosis with radiculopathy, lumbar region (ICD-10 - M47.26) [facility] Other 09-27-2022 Hospital Discharge instructions Patient Education 07/12/2022 09:00:15 Cystoscopy Cystoscopy Cystoscopy is a procedure that is used to help diagnose and sometimes treat conditions that affect the lower urinary tract. The lower urinary tract includes the bladder and the urethra. The urethra is the tube that drains urine from the bladder. Cystoscopy is done using a thin, tube-shaped instrument with a light and camera at the end (cystoscope). The cystoscope may be hard or flexible, depending on the goal of the procedure. The cystoscope is inserted through the urethra, into the bladder. Cystoscopy may be recommended if you have: Urinary tract infections that keep coming back. Blood in the urine (hematuria). An inability to control when you urinate (urinary incontinence) or an overactive bladder. Unusual cells found in a urine sample. A blockage in the urethra, such as a urinary stone. Painful urination. An abnormality in the bladder found during an intravenous pyelogram (IVP) or CT scan. Cystoscopy may also be done to remove a sample of tissue to be examined under a microscope (biopsy). Tell a health care provider about: Any allergies you have. All medicines you are taking, including vitamins, herbs, eye drops, creams, and eoof-fkz-vbijhuh medicines. Any problems you or family members have had with anesthetic medicines. Any blood disorders you have. Any surgeries you have had. Any medical conditions you have. Whether you are or may be . What are the risks? Generally, this is a safe procedure. However, problems may occur, including: Infection. Bleeding. Allergic reactions to medicines. Damage to other structures or organs. What happens before the procedure? Ask your health care provider about: ?Changing or stopping your regular medicines. This is especially important if you are taking diabetes medicines or blood thinners. ?Taking medicines such as aspirin and ibuprofen. These medicines can thin your blood. Do not take these medicines unless your health care provider tells you to take them. ?Taking rret-abt-reqxgqn medicines, vitamins, herbs, and supplements. Follow instructions from your health care provider about eating or drinking restrictions. Ask your health care provider what steps will be taken to help prevent infection. These may include: ?Washing skin with a germ-killing soap. ?Taking antibiotic medicine. You may have an exam or testing, such as: ? X-rays of the bladder, urethra, or kidneys. ?Urine tests to check for signs of infection. Plan to have someone take you home from the hospital or clinic. What happens during the procedure? You will be given one or more of the following: ?A medicine to help you relax (sedative). ?A medicine to numb the area (local anesthetic). The area around the opening of your urethra will be cleaned. The cystoscope will be passed through your urethra into your bladder. Germ-free (sterile) fluid will flow through the cystoscope to fill your bladder. The fluid will stretch your bladder so that your health care provider can clearly examine your bladder acevedo. Your doctor will look at the urethra and bladder. Your doctor may take a biopsy or remove stones. The cystoscope will be removed, and your bladder will be emptied. The procedure may vary among health care providers and hospitals. What can I expect after the procedure? After the procedure, it is common to have: Some soreness or pain in your abdomen and urethra. Urinary symptoms. These include: ?Mild pain or burning when you urinate. Pain should stop within a few minutes after you urinate. This may last for up to 1 week. ?A small amount of blood in your urine for several days. ?Feeling like you need to urinate but producing only a small amount of urine. Follow these instructions at home: Medicines Take rrxj-gri-pbbxulu and prescription medicines only as told by your health care provider. If you were prescribed an antibiotic medicine, take it as told by your health care provider. Do notstop taking the antibiotic even if you start to feel better. General instructions Return to your normal activities as told by your health care provider. Ask your health care provider what activities are safe for you. Do not drive for 24 hours if you were given a sedative during your procedure. Watch for any blood in your urine. If the amount of blood in your urine increases, call your healthcare provider. Follow instructions from your health care provider about eating or drinking restrictions. If a tissue sample was removed for testing (biopsy) during your procedure, it is up to you to get your test results. Ask your health care provider, or the department that is doing the test, when yourresults will be ready. Drink enough fluid to keep your urine pale yellow. Keep all follow-up visits as told by your health care provider. This is important. Contact a health care provider if you: Have pain that gets worse or does not get better with medicine, especially pain when you urinate. Have trouble urinating. Have more blood in your urine. Get help right away if you: Have blood clots in your urine. Have abdominal pain. Have a fever or chills. Are unable to urinate. Summary Cystoscopy is a procedure that is used to help diagnose and sometimes treat conditions that affect the lower urinary tract. Cystoscopy is done using a thin, tube-shaped instrument with a light and camera at the end. After the procedure, it is common to have some soreness or pain in your abdomen and urethra. Watch for any blood in your urine. If the amount of blood in your urine increases, call your healthcare provider. If you were prescribed an antibiotic medicine, take it as told by your health care provider. Do notstop taking the antibiotic even if you start to feel better. This information is not intended to replace advice given to you by your health care provider. Make sure you discuss any questions you have with your health care provider. Document Released: 09/29/2001 Document Revised: 09/24/2019 Document Reviewed: 09/24/2019 [employer] Patient Education 2020 [employer] [place]. Follow Up Care 06/22/2022 13:16:22 With:Kee NAVARRO, RENATA Ghotra, URO Address: [address] [phone] When:Within 4 Week(s) Comments:w/ CT w/o contrast [facility] 09-12-2022 Evaluation note* Encounter Date Diagnosis Assessment Notes Treatment Notes Treatment Clinical Notes Jun, Other spondylosis with radiculopathy, lumbar region (ICD-10 - M47.26) Patients primary complaint today continues to be low back pain radiating into the posterior aspect of his right lower extremity, extending into his foot. He has exhausted multiple treatment options without benefit. Unfortunately, patient only experienced short term relief following a recent L5 right transforaminal. His symptoms remain consistent with neural foraminal narrowing particularly on the right side at L5-S1, seen on previous imaging. Patient continues to want to avoid discussion of surgery at this time, I believe he would be a reasonable candidate for an interlaminar lumbar epidural steroid injection which we will proceed with. Risks and benefits of procedure explained to patient; patient verbalizes understanding. Additionally, given the severity of his symptoms, I will take over the patients current conservative regimen of Tramadol up to once daily as needed for severe pain. Patient was advised I do not wish for this to be a m[facility]p prescription. OARRS was processed and reviewed, no discrepencies. He signed an opioid contract with us today in office. Anatomy of spine discussed in detail with patient in regards to patients condition. Jun, Other low back pain (ICD-10 - M54.59) Jun, Other chronic pain (ICD-10 - G89.29) Jun, Other Above note writ ten by Germain Bowles MA, Car Shake[employer] Operator. Edited and approved by Dr. Tomi Leach MD. [facility] Other 09-07-2022 Hospital Discharge instructions Patient Education 06/22/2022 10:48:00 Kidney Stones, Oqbx-cg-Mitz Kidney Stones Kidney stones are rock-like masses that form inside of the kidneys. Kidneys are organs that make pee (urine). A kidney stone may move into other parts of the urinary tract, including: The tubes that connect the kidneys to the bladder (ureters). The bladder. The tube that carries urine out of the body (urethra). Kidney stones can cause very bad pain and can block the flow of pee. The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 to ensure your stent is removed. Failure to do so may result in recurrent infections and renal failure.[facility] Work Phone: Hospital Discharge instructions Additional Instructions Take tylenol 650 mg every 6 hours for pain relief. Oxybutynin or Levsin as needed for bladder spasms/stent pain. May cause dry mouth/eyes and constipation. Take stool softeners. You can buy AZO [id number] and use as needed for burning with urination. This will make your urine orange. Drink plenty of water and fluids You must follow up to ensure your stent is removed. Failure to do so may result in recurrent infections and renal failure.[facility] Work Phone: Hospital Discharge instructions Additional Instructions Take the prednisone once a day for 5 days May take 1 hydrocodone every 6 hours for pain May apply ice warm moist heat whichever helps the best Gentle stretching If the pain continues follow-up with either your family doctor or [place] [facility] Return to the ER for more severe pain weakness in your arm if the arm becomes red warm swollen or any other concerns[facility] Center Work Phone: Hospital Discharge instructions Additional Instructions [facility] Work [facility] Hospital Discharge instructions Additional Instructions Dr. Scott's discharge instructions Cubital tunnel release Maintain your postoperative dressing for 72 hours after surgery. After this time the dressing can be removed. After dressing removal you may cleanse your incision with warm soapy water. You may keep the incision covered with a Band-Aid if you wish. You should use diligent icing for the first several days after surgery as this will help with swelling. We will plan to remove the sutures at your follow-up appointment. Elevation of your hand above the level of your heart can help with swelling and inflammation. You are weightbearing as tolerated and range of motion as tolerated to the hand wrist and fingers, protect the surgical site from injury. Take medications as prescribed. You may take NSAIDs/Tylenol [id number] as indicated on the bottle. Follow-up in office as scheduled, approximately one week after surgery. Call the office with any questions or concerns. Dr. Gaurav Scott [facility] [place] [address] [facility] Work Phone: Hospital Discharge instructions Additional Instructions DR. CASTELLANO'S POST OP INSTRUCTIONS Take prescribed pain medication as directed and as needed to control your post- operative pain. -In addition to the prescribed medication, you may take ibuprofen (Advil, Motrin) or naproxen (Aleve/Naprosyn) to help control pain and decrease swelling. -DO NOT TAKE ibuprofen/Naprosyn/naproxen if you have a history of bleeding ulcer, are taking anticoagulation medication (Coumadin/warfarin, Eliquis, Xarelto, Plavix, Lovenox), if you have had a history of gastric bypass surgery, or if you have a history of kidney disease. Elevate the operative area as much as possible, using at least 2-3 pillows, keeping the hand higher than the elbow. Keep ice at the operative area as much as possible. It takes longer than 20 minutes for the cold to penetrate the bandages, so leave the ice bag or cold pack in place until the ice melts, then it is time to change to a fresh ice bag or cold pack. -Elevation and ice help to lessen the swelling post-operatively which helps to lessen pain so that you will need to take less pain medication, as well as maintaining better range of motion and function of your hand (more swelling, less movement). You may wiggle your fingers, bending, flexing, and move them to decrease stiffness. You may use your hands for light activities of 2-5 lbs. This is lifting your coffee cup, using your silverware, and typing on a computer or tablet. -Do NOT perform strenuous lifting or lift greater than 10 lbs until 4-6 weeks after surgery to minimize exacerbation of pain at the surgery site. You may remove your dressing on the third day after surgery, and get your surgical incision wet in the shower or when washing your hands with soap and water. -DO NOT soak your incision or submerge it under standing water such as dishwater or bathtub. -DO NOT apply perfumed moisturizers or ointments unless otherwise instructed by your physician. -Washing your incision gently with soap and water on a daily basis, helps to rid your skin of bacteria and decrease the risk of wound infections. -After showering or washing your hands, pat the incision dry, and keep covered with a clean dry gauze bandage. -You may apply Bacitracin, Neosporin, or generic triple antibiotic ointment to incision if you would like Take vitamin C 500 mg by mouth daily to help skin and incision heal Take antibiotics as directed to decrease risk of infection after surgery [facility] Work Phone: Progress note No data available for this section [facility] Chief Complaint and Reason for Visit Chief Complaint Q65.89 M54.16 Chief Complaint Q65.89 M54.16 Back Pain Chief Complaint Q65.89 M54.16 Back Pain Back Pain Chief Complaint Q65.89 M54.16 Back Pain Back Pain n32.9 n28.1 Chief Complaint M54.16 Back Pain Back Pain n32.9 n28.1 Kidney Stone Chief Complaint Back Pain Back Pain n32.9 n28.1 Kidney Stone Kidney Stone Chief Complaint Back Pain Back Pain n32.9 n28.1 Kidney Stone Kidney Stone Kidney Stone Chief Complaint Back Pain n32.9 n28.1 Kidney Stone Kidney Stone Kidney Stone Surgery Chief Complaint Kidney Stone Kidney Stone Kidney Stone Surgery left renal subcapsular hemotoma Chief Complaint Surgery left renal subcapsular hemotoma kidney stone Chief Complaint left renal subcapsul ar hemotoma kidney stone left elbow pain Chief Complaint left elbow pain carpal tunnel Chief Complaint left elbow pain carpal tunnel carpal tunnel Chief Complaint left elbow pain carpal tunnel carpal tunnel G56.02 N40.1 N20.0 Chief Complaint left elbow pain carpal tunnel carpal tunnel G56.02 N40.1 N20.0 Carpal Tunnel Chief Complaint carpal tunnel carpal tunnel G56.02 N40.1 N20.0 Carpal Tunnel Reason for Visit Left carpal tunnel s yndrome Chief Complaint m46.1 Dry needle eval Neck Pain Cubital Tunnel Chief Complaint Neck Pain Cubital Tunnel Dry needle eval R index finger lac Chief Complaint Neck Pain Cubital Tunnel Dry needle eval R index finger lac Cubital Tunnel Chief Complaint Neck Pain Cubital Tunnel Dry needle eval R index finger lac Cubital Tunnel PST/N40.1 Chief Complaint Cubital Tunnel Dry needle eval R index finger lac Cubital Tunnel PST/N40.1 Soft Tissue Mass Chief Complaint 1 Week Post Op PST/N40.1 Bishop Pt Lt Elbow Increased Pain And Swell 4-6 Weeks Soft Tissue Mass n20.0 Left Lateral Epicondylitis 6 Weeks Reason for Visit Cubital tunnel syndr ome Left lateral epicondylitis Other specified postprocedural states Chief Complaint PST/N40.1 Bishop Pt Lt Elbow Increased Pain And Swell 4-6 Weeks Soft Tissue Mass n20.0 Left Lateral Epicondylitis 6 Weeks 3-4 WEEKS Reason for Visit Cubital tunnel syndr ome Left lateral epicondylitis Other specified postprocedural states Mass of finger Other specified postprocedural states Right hand pain Trigger finger, right middle finger Chief Complaint 4-6 Weeks Soft Tissue Mass n20.0 Left Lateral Epicondylitis 6 Weeks 3-4 WEEKS 4 week recheck Reason for Visit Cubital tunnel syndr ome Left lateral epicondylitis Other specified postprocedural states Mass of finger Other specified postprocedural states Right hand pain Trigger finger, right middle finger Mass of finger Other specified postprocedural states Trigger finger, right middle finger Chief Complaint n20.0 Left Lateral Epicondylitis 6 Weeks 3-4 WEEKS 4 week recheck RECHECK BACK PAIN Reason for Visit Cubital tunnel syndr ome Left lateral epicondylitis Other specified postprocedural states Mass of finger Other specified postprocedural states Right hand pain Trigger finger, right middle finger Mass of finger Other specified postprocedural states Trigger finger, right middle finger Cervical arthritis Chronic pain Neuropathy Sacroiliitis, not elsewhere classified Chief Complaint Left Lateral Epicond ylitis 6 Weeks 3-4 WEEKS 4 week recheck RECHECK BACK PAIN RIGHT SI JOINT INJECTION /VW Reason for Visit Cubital tunnel syndr ome Left lateral epicondylitis Other specified postprocedural states Mass of finger Other specified postprocedural states Right hand pain Trigger finger, right middle finger Mass of finger Other specified postprocedural states Trigger finger, right middle finger Cervical arthritis Chronic pain Neuropathy Sacroiliitis, not elsewhere classified Chief Complaint 4 week recheck RECHECK BACK PAIN RIGHT SI JOINT INJECTION /VW Reason for Visit Mass of finger Other specified postprocedural states Trigger finger, right middle finger Cervical arthritis Chronic pain Neuropathy Sacroiliitis, not elsewhere classified Chief Complaint 4 week recheck RECHECK BACK PAIN RIGHT SI JOINT INJECTION /VW Z96.659 - Presence of unspecified artificial knee OP SP LTKA PAIN Reason for Visit Mass of finger Other specified postprocedural states Trigger finger, right middle finger Cervical arthritis Chronic pain Neuropathy Sacroiliitis, not elsewhere classified Primary osteoarthritis of left knee Primary osteoarthritis of right knee S/P total knee arthroplasty Chief Complaint RECHECK BACK PAIN RIGHT SI JOINT INJECTION /VW Z96.659 - Presence of unspecified artificial knee OP SP LTKA PAIN OP SP LT TKA PAIN Reason for Visit Cervical arthritis Chronic pain Neuropathy Sacroiliitis, not elsewhere classified Primary osteoarthritis of left knee Primary osteoarthritis of right knee S/P total knee arthroplasty Neuropathy Primary osteoarthritis of left knee Primary osteoarthritis of right knee S/P total knee arthroplasty Tendinitis of left quadriceps tendon Chief Complaint RIGHT SI JOINT INJ ECTION /VW Z96.659 - Presence of unspecified artificial knee OP SP LTKA PAIN OP SP LT TKA PAIN N20.0 Reason for Visit Primary osteoarthrit is of left knee Primary osteoarthritis of right knee S/P total knee arthroplasty Neuropathy Primary osteoarthritis of left knee Primary osteoarthritis of right knee S/P total knee arthroplasty Tendinitis of left quadriceps tendon Chief Complaint Z96.659 - Presence o f unspecified artificial knee OP SP LTKA PAIN OP SP LT TKA PAIN N20.0 F/U RIGHT SI JOINT INJECTION Reason for Visit Primary osteoarthrit is of left knee Primary osteoarthritis of right knee S/P total knee arthroplasty Neuropathy Primary osteoarthritis of left knee Primary osteoarthritis of right knee S/P total knee arthroplasty Tendinitis of left quadriceps tendon Cervical arthritis Chronic pain Neuropathy Sacroiliitis, not elsewhere classified Chief Complaint OP SP LT TKA PAIN N20.0 F/U RIGHT SI JOINT INJECTION R knee OA 6 WEEK RECHECK Reason for Visit Neuropathy Primary osteoarthritis of left knee Primary osteoarthritis of right knee S/P total knee arthroplasty Tendinitis of left quadriceps tendon Cervical arthritis Chronic pain Neuropathy Sacroiliitis, not elsewhere classified Neuropathy Primary osteoarthritis of left knee Primary osteoarthritis of right knee S/P total knee arthroplasty Tendinitis of left quadriceps tendon Chief Complaint OP SP LT TKA PAIN N20.0 F/U RIGHT SI JOINT INJECTION 6 WEEK RECHECK R knee OA Reason for Visit Neuropathy Primary osteoarthritis of left knee Primary osteoarthritis of right knee S/P total knee arthroplasty Tendinitis of left quadriceps tendon Cervical arthritis Chronic pain Neuropathy Sacroiliitis, not elsewhere classified Neuropathy Primary osteoarthritis of left knee Primary osteoarthritis of right knee S/P total knee arthroplasty Tendinitis of left quadriceps tendon Family History No Family History Records Found Relationship Condition Age at Onset Recorded Date/T rajesh brother Diabetes mellitus Unknown sister Diabetes mellitus Unknown Not Specified Diabetes mellitus Unknown father Leukemia Unknown Relationship Condition Age at Onset Recorded Date/T rajesh brother Diabetes mellitus Unknown sister Diabetes mellitus Unknown Myocardial infarction Unknown History of heart surgery Unknown Renal failure Unknown Not Specified Diabetes mellitus Unknown father Leukemia Unknown Relationship Condition Age at Onset Recorded Date/T rajesh brother Diabetes mellitus Unknown sister Diabetes mellitus Unknown Myocardial infarction Unknown History of heart surgery Unknown Renal failure Unknown Not Specified Diabetes mellitus Unknown father Leukemia Unknown father Unknown Not Specified Unknown Relationship Condition Age at Onset Recorded Date/T rajesh brother Diabetes mellitus Unknown sister Diabetes mellitus Unknown Myocardial infarction Unknown History of heart surgery Unknown Renal failure Unknown mother Diabetes mellitus Unknown father Leukemia Unknown father Unknown mother Unknown Advance Directives No Advanced Directives Records Found Advance Directive Response Recorded Date/ Time Advance Directives No September 5:16pm Advance Directive Response Recorded Date/ Time Advance Directives No September 4:16pm Reason for Referral Reason please refer to [facility] for repeat EMG bilateral upper extremity. Hx left elbow pain. Having ulnar nerve pain. Left small finger numbness. Hx bilateral carpal tunnel release Diagnosis 1 Left carpal tunnel s yndrome (G56.02) Referral Organization [facility] Referring Provider First Name Gaurav Referring Provider Last Name Davida Referring Provider Specialty Orthopedic Surgery Referred Organization [facility] Referred Provider Patti Whelan Referred Address [address] [place], [place],[address] Referred Provider Specialty Neurology Referral Priority Routine General Notes Janine Walden 11:27:31 AM >Received today, Dr. Whelan did patient's last EMG earlier this year, will refer to her again. Awaiting note to be locked from patient visit before sending out referral Reason please refer to [facility] for EMG bilateral upper extremities. assess for carpal tunnel syndrome Diagnosis 1 Left carpal tunnel s yndrome (G56.02) Referral Organization [facility] Referring Provider First Name Gaurav Referring Provider Last Name Davida Referring Provider Specialty Orthopedic Surgery Referred Organization [facility] Referred Address [address] [place] [place],[address] Referred Provider Specialty Neurology Referral Priority Routine General Notes Janine Walden 08:08:02 AM >received today, holding until Dr Scott's note is locked Janine Walden 02/03/2023 08:28:03 AM >still holding, note not locked yet Reason Evaluate and Treat B ack and Leg Pain at [facility] PT Diagnosis 1 Spinal stenosis of l umbar region, unspecified whether neurogenic claudication present (M48.061) Referral Organization [facility] Referring Provider First Name Ramiro Referring Provider Last Name Ariel Referring Provider Specialty Neurologica l Surgery Referred Organization [facility] Referred Address [address] [place],[address] Referred Provider Specialty Physical The rapist Referral Priority Routine Reason ra lower extr emity pain, no relief with epidural, history of lumbar fusion. Patient requesting referral to Dr. George Diagnosis 1 Other spondylosis wi th radiculopathy, lumbar region (M47.26) Referral Organization [facility] Referring Provider First Name Tomi Referring Provider Last Name Haylee Referring Provider Specialty Pain Medici ne Referred Organization Unknown Facility Referred Provider Ramiro George Referred Provider Specialty Neurological Surgery Referral Priority Routine General Notes Janine Walden 02:57:17 PM >p2p sent Summary Purpose Additional Source Comments REASON FOR VISIT (unrecogniz ed section and content) Reason Comments Foot Pain B/L arch pain Care Team (unrecognized sect ion and content) Team Status: Active Member Role Status Dates Jeff Terrell MD Primary Care Provider Active Team Status: Inactive Member Role Status Dates Jeff Terrell MD Primary Care Provider Active Start: March 13, 2024 End: March 13, 2024 Gaurav Scott DO Attending Provider Active S tart: March 13, 2024 End: March 13, 2024 Team Status: Inactive Member Role Status Sanket Terrell MD Primary Care Provider Active Start: April 29, 2024 End: April 29, 2024 Gaurav Scott DO Attending Provider Active S tart: April 29, 2024 End: April 29, 2024 Team Status: Inactive Member Role Status Sanket Terrell MD Primary Care Provider Active Start: May 07, 2024 End: May 07, 2024 Patito Sweet MD Attending Provider Active Start : May 07, 2024 End: May 07, 2024 Team Status: Inactive Member Role Status Sanket Terrell MD Primary Care Provider Active Start: May 20, 2024 End: May 20, 2024 Tomi Leach MD Attending Provider Active Sta rt: May 20, 2024 End: May 20, 2024 Team Status: Active Member Role Status Sanket Terrell MD Primary Care Provider Active Start: February 19, 2024 Tomi Leach MD Attending Provider Active Sta rt: February 19, 2024 Team Status: Inactive Member Role Status Sanket Terrell MD Primary Care Provider Active Start: February 19, 2024 End: February 19, 2024 Tomi Leach MD Attending Provider Active Sta rt: February 19, 2024 End: February 19, 2024 Team Status: Inactive Member Role Status Sanket Terrell MD Primary Care Provider Active Start: January 10, 2024 End: January 10, 2024 Melissa Castellano MD Attending Provider Active Start: January 10, 2024 End: January 10, 2024 Team Status: Inactive Member Role Status Sanket Terrell MD Primary Care Provider Active Start: February 01, 2024 End: February 01, 2024 Tomi Leach MD Attending Provider Active Sta rt: February 01, 2024 End: February 01, 2024 Team Status: Active Member Role Status Sanket Terrell MD Primary Care Provider Active Start: December 04, 2023 Gaurav Scott DO Attending Provider Active S tart: December 04, 2023 Team Status: Inactive Member Role Status Sanket Terrell MD Primary Care Provider Active Start: December 04, 2023 End: December 04, 2023 Gaurav Scott DO Attending Provider Active S tart: December 04, 2023 End: December 04, 2023 Team Status: Inactive Member Role Status Sanket Terrell MD Primary Care Provider Active Start: December 06, 2023 End: December 06, 2023 Melissa Castellano MD Attending Provider Active Start: December 06, 2023 End: December 06, 2023 Team Status: Inactive Member Role Status Sanket Scott DO Attending Provider Active S tart: September 06, 2023 End: September 06, 2023 Team Status: Inactive Member Role Status Sanket Terrell MD Primary Care Provider Active Start: September 15, 2023 End: September 15, 2023 Patito Sweet MD Attending Provider Active Start : September 15, 2023 End: September 15, 2023 Team Status: Inactive Member Role Status ZACH Hernandez Attending Provider Active Start: September 20, 2023 End: September 20, 2023 Team Status: Inactive Member Role Status Sanket Scott DO Attending Provider Active S tart: October 25, 2023 End: October 25, 2023 Team Status: Inactive Member Role Status Sanket Terrell MD Primary Care Provider Active Start: October 30, 2023 End: October 30, 2023 Melissa Castellano MD Attending Provider Active Start: October 30, 2023 End: October 30, 2023 Team Status: Inactive Member Role Status Sanket Terrell MD Primary Care Provider Active Start: November 23, 2023 End: November 23, 2023 Patito Sweet MD Attending Provider Active Start : November 23, 2023 End: November 23, 2023 Team Status: Active Member Role Status Sanket Terrell MD Primary Care Provider Active Referral Self Attending Provider Active Team Status: Inactive Member Role Status Sanket Terrell MD Primary Care Provider Active Gaurav Scott DO Attending Provider Active Team Status: Inactive Member Role Status aSnket Terrell MD Primary Care Provider Active Tomi Leach MD Attending Provider Active Team Status: Active Member Role Status Sanket Terrell MD Primary Care Provider Active Tomi Leach MD Attending Provider Active Team Status: Inactive Member Role Status Sanket Terrell MD Primary Care Provider Active Patito Sweet MD Attending Provider Active Team Status: Inactive Member Role Status Sanket Terrell MD Primary Care Provider Active Marina Flores [facility] Emergency Provider Active Team Status: Inactive Member Role Status Dates Jeff Terrell MD Primary Care Provider Active Gaurav Scott DO Attending Provider Active Patito Sweet MD Other Provider Active Team Status: Inactive Member Role Status Dates Jeff Terrell MD Primary Care Provider Active Tony Black APRN Emergency Provider Active Team Status: Inactive Member Role Status Dates Jeff Terrell MD Primary Care Provider Active Melissa Castellano MD Attending Provider Active Team Status: Active Member Role Status Dates Jeff Terrell MD Primary Care Provider Active Start: March 13, 2024 Gaurav Scott DO Attending Provider Active S tart: March 13, 2024 Team Status: Active Member Role Status Dates Jeff Terrell MD Primary Care Provider Active Start: June 06, 2024 Gaurav Scott DO Attending Provider Active S tart: June 06, 2024 Team Status: Inactive Member Role Status Dates Jeff Terrell MD Primary Care Provider Active Start: June 12, 2024 End: June 12, 2024 Gaurav Scott , Attending Provider Active S tart: June 12, 2024 End: June 12, 2024 Team Status: Inactive Member Role Status Dates Jeff Terrell MD Primary Care Provider Active Start: July 08, 2024 End: July 08, 2024 Gaurav Scott DO Attending Provider Active S tart: July 08, 2024 End: July 08, 2024 General Surgeon Relationship Specialty Start Date End Date Jeff Terrell MD [address] [place] [address] PCP - General Family Medicine 08/05/24 General Surgeon Relationship Specialty Start Date End Date Jeff Terrell MD [address] [place] [address] PCP - General Family Medicine 08/05/24 Goals (unrecognized section and content) Goals may be documented in a n alternate section (unrecognized sect ion and content) No Status Records FoundNo Status Records FoundNo Status Records FoundNo Status Records Found INFORMATION SOURCE (unrecogn ized section and content) DATE CREATED AUTHOR 02/25/2023 [facility] DATE CREATED AUTHOR AUTHOR'S ORGANIZ ATION 05/18/2024 [facility] DATE CREATED AUTHOR AUTHOR'S ORGANIZ ATION 07/11/2024 [facility] DATE CREATED AUTHOR AUTHOR'S ORGANIZ ATION 08/06/2024 [facility] EPIC FOR RECORDS PERTAINING TO PATIENTS WHO ARE OR HAVE BEEN ENROLLED IN A CHEMICAL DEPENDENCY/SUBSTANCEABUSE PROGRAM, SOME INFORMATION MAY BE OMITTED. This clinical summary was aggregated from multiple sources. Caution should be exercised in using it in the provision of clinical care. This summary normalizes information from multiple sources, and as a consequence, information in this document may materially change the coding, format and clinical context of patient data. In addition, data may be omitted in some cases. CLINICAL DECISIONS SHOULD BE BASED ON THE PRIMARY CLINICAL RECORDS. [facility] [employer] provides no warranty or guarantee of the accuracy or completeness of information in this document.
[2024-08-07 12:19] LABS: Basophils Absolute Auto 0.1 10^3/uL (0.0-0.1); Basophils Percent Auto 0.7 % (0.2-2.0); Eosinophils Absolute Auto 0.2 10^3/uL (0.0-0.7); Eosinophils Percent Auto 2.6 % (0.9-7.0); Hematocrit 42.1 % (42.0-54.0); Hemoglobin 13.8 g/dL (14.0-18.0); Immature Granulocytes Abs Auto 0.07 10^3/uL (0.00-0.03); Immature Granulocytes Pct Auto 0.9 % (0.0-0.5); Lymphocytes Absolute Auto 2.3 10^3/uL (1.2-3.8); Lymphocytes Percent Auto 27.8 % (20.5-60.0); Mean Corpuscular HGB Conc 32.8 g/dL (29.9-35.2); Mean Corpuscular Hemoglobin 25.8 pg (25.9-34.0); Mean Corpuscular Volume 78.8 fL (80.0-94.0); Monocytes Absolute Auto 0.8 10^3/uL (0.3-0.8); Monocytes Percent Auto 9.4 % (1.7-12.0); Neutrophils Absolute Auto 4.8 10^3/uL (1.4-6.5); Neutrophils Percent Auto 58.6 % (43.0-75.0); Platelet Count 233 10^3/uL (150-450); Red Blood Count 5.34 10^6/uL (4.70-6.10); Red Cell Distribution Width 14.1 % (11.0-15.0); White Blood Count 8.2 10^3/uL (4.0-11.0)
[2024-08-07 12:45] LABS: Alanine Aminotransferase 28 U/L (16-63); Albumin Level 3.5 g/dL (3.4-5.0); Alkaline Phosphatase 68 U/L (46-116); Anion Gap 12.5; Aspartate Amino Transferase 16 U/L (15-37); BUN Creatinine Ratio 6.6; Bilirubin Total 0.4 mg/dL (0.2-1.0); Calcium 8.8 mg/dL (8.5-10.1); Carbon Dioxide 27.5 mmol/L (21.0-32.0); Chloride 108 mmol/L (98-107); Estimated GFR (African America >60 (>=60 mL/min/1.73m^2); Estimated GFR (Non-African Ame 53 (>=60 mL/min/1.73m^2); Globulin 3.6 g/dL; Glucose 137 mg/dL (74-106); Sodium 144 mmol/L (136-145); Total Protein 7.1 g/dL (6.4-8.2)
== END 2024-08-07 11:48 | disposition home or self-care (01) ==
LOC: LAB 11:55
PROVIDERS: PCP Family Medicine; Visit Provider Family Medicine
DX: R59.1 Generalized enlarged lymph nodes (principal)
CPT/HCPCS: 36415; 80053; 85025

== ENCOUNTER 2024-08-09 14:13 | Outpatient (OUT) | payer MEDICARE, SELFPAY ==
--- NOTE | 2024-08-09 14:21 | US_ITS ---
The [address] [address] Patient Name: LIMA LOYD MRN: [id number] date: 1965 Sex: M Assigned Patient Location: US Current Patient Location: US Accession/Order Number: [id number] Exam Date: 08/09/2024 15:05 Report Date: 08/10/2024 11:48 At the request of: MARC TERRELL Procedure: US extremity nonvascular LT EXAM: US extremity nonvascular LT HISTORY: Lymphadenopathy. COMPARISON: None. TECHNIQUE: Vital-scale and color Doppler imaging was utilized. FINDINGS: Several lymph nodes were seen within the axillary region. The largest of which measures 5.7 x 1.6 x [address] scan for further evaluation. US/US extremity nonvascular LT IMPRESSION: Probable lymphadenopathy within the axillary region. Recommend CT. Electronically authenticated by: Gloria LARA Date: 08/10/2024 11:48
== END 2024-08-09 14:14 | disposition home or self-care (01) ==
LOC: US 14:16
PROVIDERS: PCP Family Medicine; Visit Provider Family Medicine
DX: R59.1 Generalized enlarged lymph nodes (principal)
CPT/HCPCS: 76882

== ENCOUNTER 2024-09-02 14:40 | Outpatient (OUT) | payer MEDICARE, SELFPAY ==
--- NOTE | 2024-09-02 14:42 | CT_ITS ---
[address] [address] Patient Name: LIMA LOYD MRN: [id number] date: 1965 Sex: M Assigned Patient Location: CT Current Patient Location: Accession/Order Number: [id number] Exam Date: 09/02/2024 14:55 Report Date: 09/03/2024 06:53 At the request of: KIKO SOSA Procedure: CT chest wo con EXAMINATION: CT chest wo con HISTORY: Enlarged Lymph Nodes In Armpit COMPARISON: CTA chest 09/14/2021 TECHNIQUE: Axial, Coronal, and Sagittal images were created without the administration of IV contrast material. Dose reduction techniques were achieved by using automated exposure control and/or adjustment of mA and/or kV according to patient size and/or use of iterative reconstruction technique. FINDINGS: LUNGS: Chronic calcified granuloma within posterior left lung base. No acute infiltrates or suspicious nodules. PLEURA: No mass, effusion, or pneumothorax. VASCULATURE: No abnormality. HENRIETTA: Calcified lymph nodes suggestive of chronic granulomatous disease. MEDIASTINUM: Anterior upper mediastinal heterogeneous mass 4.6 x 3.7 x 2.8 cm. This is inferior to the thyroid gland and appears to be separate from the thyroid gland. No mediastinal adenopathy. CARDIAC: No enlargement, pericardial thickening, or pericardial effusion. Coronary Artery calcifications: Coronary calcifications are absent. AORTA: No aneurysm or dissection. CHEST WALL: No mass or axillary adenopathy BONES: No bone lesion or fracture. LIMITED ABDOMEN: No suspicious findings. Limited images of the upper abdomen. OTHER: Negative. CT/CT chest wo con IMPRESSION: 1. No lymphadenopathy or suspicious findings within the right or left axilla. 2. Known upper anterior mediastinal heterogeneous mass of uncertain etiology which is increased slightly in size. Electronically authenticated by: RIVAS KINCAID Date: 09/03/2024 06:53
== END 2024-09-02 14:41 | disposition home or self-care (01) ==
LOC: CT 14:40
PROVIDERS: PCP Family Medicine; Visit Provider Nurse Practitioner Family
DX: R59.0 Localized enlarged lymph nodes (principal)
CPT/HCPCS: 71250

== ENCOUNTER 2024-09-13 13:54 | Outpatient (OUT) | payer MEDICARE, SELFPAY ==
--- NOTE | 2024-09-13 13:57 | US_ITS ---
The [address] [address] Patient Name: LIMA LOYD MRN: [id number] date: 1965 Sex: M Assigned Patient Location: US Current Patient Location: Accession/Order Number: [id number] Exam Date: 09/13/2024 14:00 Report Date: 09/14/2024 10:02 At the request of: MARC TERRELL Procedure: US chest EXAM: US chest HISTORY: Mediastinal mass COMPARISON: CT chest 09/02/2024 TECHNIQUE: Percutaneous ultrasound evaluation. FINDINGS: Posterior to the upper sternum is a 5.0 x 2.6 x 3.6 cm heterogeneous mass without significant vascularity. US/US chest IMPRESSION: 1. Limited ultrasound evaluation due to location of mass posterior to the sternum. 2. Heterogeneous mass posterior to the sternum which appears to be separate from the thyroid gland. No significant detectable vascularity. 3. Etiology of the mass is uncertain. Consider a nuclear medicine thyroid scan to see if this does represent ectopic thyroid tissue. Electronically authenticated by: RIVAS KINCAID Date: 09/14/2024 10:02
--- OUTSIDE RECORDS SUMMARY | 2024-09-13 13:57 | XMS_ITS | CCD ---
Author Organization [facility] Care Team Providers Care Surgical Services Coordinator Name Role Phone Gaurav Higuera Unavailable Tomi Leach Unavailable Jeff Terrell Primary Care Physician MD Jeff Terrell Primary Care Provider DO Gaurav Higuera Attending Provider MD Tomi Leach Attending Provider MD Patito Sweet Attending Provider Ramiro George Unavailable MD Jeff Terrell Primary Care Provider DO Gaurav Higuera Attending Provider MD Jeff Terrell Primary Care Provider MD Tomi Leach Attending Provider MD Patito Sweet Attending Provider MD Jeff Terrell Primary Care Provider MD Tomi Leach Attending Provider MD Jeff Terrell Primary Care Provider MD Patito Sweet Attending Provider MD Jeff Terrell Primary Care Provider MD Patito Sweet Attending Provider MD Jeff Terrell Primary Care Provider MD Patito Sweet Attending Provider GALLO Flores-MACIE Chavez Emergency Provider SRIDHAR MCLAUGHLIN Consulting Unavailable HOY ., DR [...] Unavailable MD Jeff Terrell Primary Care Provider [phone] DO Gaurav Higuera Attending Provider MD Patito Sweet Other Provider MD Jeff Terrell Primary Care Provider MD Tomi Leach Attending Provider MD Jeff Terrell Primary Care Provider Self, Referral Attending Provider Unavailable DO Gaurav Higuera A Attending Provider MD Jeff Terrell Primary Care Provider MD Tomi Leach Attending Provider DO Gaurav Higuera Attending Provider Self, Referral Attending Provider Unavailable CHARLI Black Emergency Provider MD Patito Sweet Attending Provider Janine Maynard Unavailable Melissa Castellano Unavailable MD Jeff Terrell Primary Care Provider MD Melissa Castellano Attending Provider MD Jeff Terrell Primary Care Provider DO Gaurav Higuera Attending Provider MD Jeff Terrell Primary Care Provider MD Melissa Castellano Attending Provider MD Patito Sweet Attending Provider DO Gaurav Higuera A Attending Provider [phone] MD Jeff Terrell Primary Care Provider MD Jeff Terrell Primary Care Provider MD Jeff Terrell Primary Care Provider DO Gaurav Higuera Attending Provider MD Patito Sweet Attending Provider Patito Sweet [...] Unavailable MD Jeff Terrell Primary Care Provider [phone] DO Gaurav Higuera A Attending Provider [phone] DO Gaurav Higuera Attending Provider [phone] Jeff Terrell MD Primary Care Provider MD Jeff Terrell Primary Care Provider [phone] DO Gaurav Higuera A Attending Provider [phone] NICOLAS Paredes Attending Provider [phone] Hozan Jeff Juan Primary Care Unavailable Lue, Patito M Admitting Unavailable Lue, Patito M Attending Unavailable Hoy, Jeff M Primary Care Unavailable Lue, Patito M Admitting Unavailable Lue, Patito M Attending Unavailable Davida, Gaurav A Admitting Unavailable Davida, Gaurav A Attending Unavailable Hoy, Jeff M Primary Care Unavailable Davida, Gaurav A Admitting Unavailable Davida, Gaurav A Attending Unavailable Hoy, Jeff M Primary Care Unavailable Hoy, Jeff M Primary Care Unavailable Davida, Gaurav A Admitting Unavailable Davida, Gaurav A Attending Unavailable Hoy, Jeff M Primary Care Unavailable Calvey, Melissa R Attending Unavailable Calvey, Melissa R Admitting Unavailable Sofia, Tony Admitting Unavailable Sofia, Tony Attending Unavailable Hoy, Jeff M Primary Care Unavailable Hoy, Jeff M Primary Care Unavailable Lue, Patito M Admitting Unavailable Lue, Patito M Attending Unavailable Hoy, Jeff M Primary Care Unavailable Davida, Gaurav A Attending Unavailable Davida, Gaurav A Admitting Unavailable BrownTabithas A Admitting Unavailable BrownVenkat Attending Unavailable Hoy, Jeff M Primary Care Unavailable VENKAT PAREDES Attending Unavailable VENKAT PAREDES Attending Unavailable Allergies Allergy Classification Reported Allergen(s) Allergy Type Date of Onset Reaction(s) Facility (20 sources) Amoxicillin / Clavulanate; Translations: [amoxicillin-cla vulanate] Drug Allergy hives, Unknown (qualifier value), Weal (disorder) ethology [facility] [employer] Other Comment on above: listed as allergy on 05/26/22 pt states he has no issues with this medicaiton (20 sources) Morphine; Translations: [morphine] Drug Allergy 02-23-20 17 hives, Unknown (qualifier value), Itching [facility] [employer] Other Comment on above: all in morphine fami ly (20 sources) traMADol Drug Allergy 02-08-20 21 Unknown, Itching [facility] (20 sources) Bee/Wasp/Ant venom; Translations: [Bee Stings] Drug allergy 02-29-20 23 Swelling [facility] (20 sources) Amoxicillin Drug Allergy 02-06-20 21 [facility] (20 sources) Clavulanate Drug Allergy 02-06-20 21 [facility] (10 sources) oxyCODONE Drug Allergy 02-06-20 21 [facility] (14 sources) Ciprofloxacin; Translations: [ciprofloxacin] Drug Allergy Unknown (qualifier value) [facility] (11 sources) Amoxicillin / Clavulanate; Translations: [Augmentin] Drug Allergy 04-28-20 13 hives [facility] (2 sources) Acetaminophen / oxyCODONE Drug Allergy 11-03-19 17 [facility] (1 source) bee venom Drug allergy (disorder) [facility] (2 sources) Morphine Drug Allergy 11-03-19 17 [facility] (1 source) traMADol Drug Allergy 06-07-20 16 [facility] (2 sources) Morphine Drug Allergy [facility] Audience [facility] Other (10 sources) Amoxicillin-Pot Clavulanate Drug Intolerance 02-23-20 17 [...] 500 MG PO Q6H 120 30 February 11, 2021 11:00pm August 12, 2022 12:40pm Start: 02-05-2021 End: 02-12-2021 take 1000 mg by mouth every eight hours Acetaminophen Discontinued 1000 MG PO Q8H February 04, 2021 11:00pm February 12, 2021 7:59am ALPRAZolam 0.25 mg oral tablet (20 sources) Benzodiazepine Start: 09-26-2023 Xanax 0.25 mg Tab 0.25 mg = 1 tab(s), Oral, PRN for anxiety Start Date: 09/26/23 Status: Ordered Start: 09-30-2022 End: 11-29-2022 take 0.25 mg by mouth once daily at bedtime Alprazolam Discontinued 0.25 MG PO Daily at bedtime September 30, 2022 12:00am November 29, 2022 9:09am Start: 09-21-2022 take 0.5-1 tablets b y mouth three times daily as needed for anxiety alprazolam 0.25 mg Tab 0.5-1 tabs, Oral, TID, PRN as needed for anxiety, Refills(s) 0 Start Date: 09/21/22 Status: Ordered Start: 09-21-2022 alprazolam 0.2 5 mg Tab 21 tab(s), Refills(s) 0 Start Date: 09/21/22 Status: Ordered Xanax Active amitriptyline hydrochloride 50 mg oral tablet (20 sources) Tricyclic Antidepressant Start: 10-30-2023 take 50 mg by mouth once daily Amitriptyline Active 50 MG PO Daily October 30, 2023 12:00am celecoxib 200 mg oral capsule (20 sources) Nonsteroidal Anti-inflammatory Drug Start: 12-02-2023 take 1 capsule by mouth twice daily at mealtime Celecoxib Active 200 MG PO December 02, 2023 12:00am FreeTextSig: TAKE ONE CAPSULE BY MOUTH TWICE A DAY WITH FOOD; Note: Source Status: Not-Taking\PRN; Refills: 3; Qty: 60 Capsule; Provider: Davida Nolasco ( ) Start: 05-09-2022 End: 11-29-2022 take 200 mg by mouth twice daily Celecoxib Discontinued 200 MG PO Twice daily July 25, 2022 11:00pm November 29, 2022 9:10am clindamycin 300 mg oral capsule (2 sources) [...] 20 MG PO Daily at bedtime August 11, 2022 11:00pm August 15, 2023 8:37am Start: 08-02-2022 take 1 tablet by marcela th twice daily as needed Cyclobenzaprine HCl 10 MG 1 tablet as needed Orally up to twice daily as needed for 30 day(s) Nov, Not-Taking/PRN Start: 02-02-2021 End: 02-05-2021 Cyclobenzaprine Discontinued 5 MG PO As Directed February 01, 2021 11:00pm February 05, 2021 5:50pm fluconazole 100 mg oral tablet (5 sources) [...] day(s), # 14 tab(s), Refills(s) 0, Pharmacy: [facility] [id number], 188, cm, 09/21/22 8:23:0... Start Date: 10/21/22 [...] MG PO Twice daily June 14, 2022 7:26am October 30, 2023 7:50am Start: 06-14-2022 take 600 mg by mouth [...] Discontinued 300 MG PO Three times daily February 11, 2021 11:00pm June 14, 2022 7:26am Start: 09-28-2017 End: 02-05-2021 take 1200 mg by mouth at bedtime Gabapentin Discontinued 1200 MG PO Bedtime September 28, 2017 12:00am February 05, 2021 4:19pm take 2 tablets by mo [facility] every twenty-four hours Gabapentin 600 MG 2 capsule Orally Once a day Active hyoscyamine sulfate 0.125 mg oral tablet (8 sources) Start: 12-21-2022 take 1 tablet by mouth four times daily as needed for pain Levsin 0.125 mg SL Tab 0.125 mg = 1 tab(s), Oral, QID, PRN abdominal pain, # 90 tab(s), Refills(s) 2, Pharmacy: [facility] [id number], 188, cm, 12/21/22 7:44:00 EST, Height/Length Dosing, [...] MG PO Every morning February 28, 2023 8:05am December 02, 2023 2:57pm Iron Chews (12 sources) Start: 09-21-2022 take [...] day(s), # 3 tab(s), Refills(s) 0, Pharmacy: [facility] [id number], 187, cm, 09/26/23 7:40:00 EST, Height/Length Dosing, 138.9, kg, 09/26/23 7:40:00 EST, Weight Dosing Start Date: 09/26/23 Stop Date: 09/29/23 Status: Ordered Start: 11-04-2022 End: 11-18-2022 take 1 tablet by mouth once daily Levaquin 500 mg Tab 500 mg = 1 tab(s), Oral, Daily, X 14 day(s), # 14 tab(s), Refills(s) 0, Pharmacy: [facility] [id number], 188, cm, 11/04/22 9:22:00 EST, Height/Length Dosing, 132, kg, 11/04/22 9:22:00 EST, Weight Dosing Start Date: 11/04/22 Stop Date: 11/18/22 Status: Ordered levoFLOXacin 750 MG (Prior Auth#:[id number]) Oral for 10 Active lidocaine 0.05 mg/mg medicated patch (6 sources) Antiarrhythmic, Amide Local Anesthetic Start: 11-18-2022 lidocaine Top 5% satinder m Patch 1 patch(es), Topical, Daily, 7 patch(es), Refill(s) 3, apply 12 hours on and 12 hours off daily, [facility] [id number], 188, cm, 11/04/22 9:22:00 EST, Height/Length Dosing, 132, kg, 11/04/22 9:22:00 EST, Weight Dosing Start Date: 11/18/22 Status: Ordered Start: 10-21-2022 End: 10-28-2022 lidocaine Top 5% film Patch 1 patch(es), Topical, Daily for 7 day(s), 7 patch(es), Refill(s) 0, Apply to affected area for up to 12 hours a day., [facility] [id number], 188, cm, 09/21/22 8:23:00 EST, Height/Length Dosing, 132, kg, 09/21/22 8:23:00 EST, Weight Dosing Start Date: 10/21/22 Stop Date: 10/28/22 Status: Ordered methylPREDNISolone 4 mg oral tablet (15 sources) Corticosteroid Start: 04-29-2024 take 1 tablet by mouth once Methylprednisolone (Medrol (Lee)) 4 mg tablets,dose pack Active 0 PO per package directions April 28, 2024 11:00pm PO PER PKG DIR for 6 days Start: 10-25-2023 Medrol 4 MG as directed Orally Oct, Active Start: 05-09-2022 Medrol 4 MG as directed Orally for 6 days Apr, Active naproxen 500 mg oral tablet (18 sources) Nonsteroidal Anti-inflammatory Drug Start: 12-02-2023 take 1 tablet by mouth every twelve hours at mealtime as needed Naproxen Active 500 MG PO Every 12 hours December 02, 2023 12:00am FreeTextSi tablet with food or milk as [...] week(s), # 28 tab(s), Refills(s) 0, Pharmacy: [facility] [id number], 188, cm, 07/13/23 9:45:00 EDT, Height/Length Dosing, 132, kg, 07/13/23 9:45:00 EDT, Weight Dosing Start Date: 07/13/23 Stop Date: 07/27/23 Status: Ordered oxybutynin chloride 5 mg oral tablet (20 sources) Cholinergic Muscarinic Antagonist Start: 09-26-2023 take 1 tablet by mouth three times daily oxybutynin 5 mg Tab 5 mg = 1 tab(s), Oral, TID, # 30 tab(s), Refills(s) 0, Pharmacy: [facility] [id number], 187, cm, 09/26/23 7:40:00 EST, Height/Length Dosing, 138.9, kg, 09/26/23 7:40:00 EST, Weight Dosing Start Date: 09/26/23 Status: Ordered Start: 11-29-2022 End: 08-15-2023 take 5 mg by mouth twice daily Oxybutynin Chloride Dis continued 5 MG PO Twice daily November 29, 2022 12:00am August 15, 2023 8:37am Start: 09-30-2022 End: 11-29-2022 take 5 mg by mouth three times daily Oxybutynin Chloride Discontinued 5 MG PO Three times daily 60 September 30, 2022 12:00am November 29, 2022 9:11am potassium citrate 10 meq extended release oral tablet (6 sources) Start: 08-18-2023 take 1 tablet by mouth twice daily potassium CITRATE 10 mEq ER Tab 10 mEq, 1 tab(s), Oral, BID, 180 tab(s), Refill(s) 3, [facility] [id number], 188, cm, 08/18/23 10:17:00 EDT, Height/Length Dosing, 132, kg, 08/18/23 10:17:00 EDT, Weight Dosing Start Date: 08/18/23 Status: Ordered Start: 05-31-2023 take 1 tablet by marcela th twice daily potassium CITRATE 10 mEq ER Tab 10 mEq, 1 tab(s), Oral, BID, 90 tab(s), Refill(s) 0, [facility] [id number], 188, cm, 05/31/23 8:37:00 EDT, Height/Length Dosing, [...] for 4 week(s), 56 tab(s), Refill(s) 0, [facility] [id number], 188, cm, 07/13/23 9:45:00 EDT, Height/Length Dosing, [...] hours., # 30 tab(s), Refills(s) 3, Pharmacy: [facility] [id number], 188, cm, 05/09/24 10:10:00 EDT, Height/Length Dosing, 144, kg, 05/09/24 10:10:00 EDT, Weight Dosing Start Date: 05/09/24 Status: Ordered Start: 05-31-2023 take 1 tablet by macrela th every hour as needed, then take 2 tablets by mouth every twenty-four hours as needed Cialis 10 mg Tab 10 mg = 1 tab(s), Oral, As Directed, PRN for erectile dysfunction, Take one hour prior to sexual intercourse. Do not exceed 20mg within 24 hrs., # 30 tab(s), Refills(s) 0, Pharmacy: [facility] [id number], 188, cm, 05/31/23 8:37:00 EDT, Height/Length Dosing, [...] MG PO Every morning September 30, 2022 12:00am October 30, 2023 7:49am Start: 06-22-2022 take 1 mg by mouth once daily Cialis 20 mg Tab mg tab(s), Oral, Daily, Refills(s) 0 Start Date: 06/22/22 Status: Ordered temazepam 30 mg oral capsule (20 sources) Benzodiazepine Start: 12-02-2023 temazepam (Res toril) 30 MG capsule 12/02/2023 Active Start: 05-26-2022 End: 10-30-2023 take 30 mg by mouth once daily at bedtime Temazepam Discontinued 30 MG PO Daily at bedtime August 11, 2022 11:00pm October 30, 2023 7:50am Completed/Discontinued Medications Medication Drug Class(es) Dates Sig (Normalized) Sig (Original) acetaminophen 325 mg / HYDROcodone bitartrate 5 mg oral tablet (20 sources) Opioid Agonist Start: 10-30-2023 End: 12-04-2023 take 1 tablet by mouth every four to six hours Hydrocodone-Acetami nophen Discontinued 1 - 2 TAB PO EVERY 4-6 HOURS 30 October 30, 2023 December 04, 2023 8:43am Start: 09-26-2023 End: 09-29-2023 take 1 tablet by mouth every six hours for pain [place] 325 mg-5 mg oral tablet 1 tab(s), Oral, q6hr for pain for 3 day(s), 12 tab(s), Refill(s) 0, [facility] [id number], 187, cm, 09/26/23 7:40:00 EST, Height/Length Dosing, 138.9, kg, 09/26/23 7:40:00 EST, Weight Dosing Start Date: 09/26/23 Stop Date: 09/29/23 Status: Ordered Start: 04-25-2023 End: 08-15-2023 take 1 tablet by mouth every four hours Hydrocodone-Acetaminophen Discontinued 1 TAB PO Q4H 10 7 April 25, 2023 August 15, 2023 8:37am Start: 11-24-2022 take 1 tablet by marcela th three times daily as needed HYDROcodone-Acetaminophen 5-325 [...] 12 January 30, 2023 February 28, 2023 8:03am Start: 01-12-2018 End: 11-24-2020 take 1 tablet by mouth every four hours as needed for pain Hydrocodone-Acetaminophen ([place]) 5-325 mg tablet Discontinued 1 TAB PO Q4H January 12, 2018 November 24, 2020 10:16am 1 or 2 p.o. q 4 hours prn pain Start: 09-28-2017 End: 11-24-2020 take 1 tablet by mouth every four to six hours Hydrocodone-Acetaminophen ([place]) 5-325 mg tablet Discontinued 1 TAB PO EVERY 4-6 HOURS September 28, 2017 November 24, 2020 10:15am ARIPiprazole 5 mg oral tablet (20 sources) Atypical Antipsychotic Start: 09-28-2017 End: 11-24-2020 take 1 tablet by mouth at bedtime Aripiprazole (Abilify) 5 mg Tablet Discontinued 5 MG PO Bedtime September 28, 2017 12:00am November 24, 2020 10:11am aspirin 81 mg delayed release oral tablet (20 sources) Platelet Aggregation Inhibitor, Nonsteroidal Anti-inflammatory Drug Start: 08-12-2022 End: 11-29-2022 take 81 mg by mouth once daily at bedtime Aspirin Discontinued 81 MG PO Daily at bedtime August 12, 2022 12:38pm November 29, 2022 9:09am Start: 03-04-2021 aspirin 81 mg Chew Tab 81 mg = 1 tab(s), Chewed, Daily, Refills(s) 0 Start Date: 03/04/21 Status: Ordered Start: 02-17-2021 aspirin 81 mg Chew Tab Refills(s) 0 Start Date: 03/04/21 Status: Ordered Start: 02-05-2021 End: 08-12-2022 take 81 mg by mouth twice daily Aspirin Discontinued 81 MG PO Twice daily February 12, 2021 7:58am August 12, 2022 12:40pm baclofen 20 mg oral tablet (20 sources) gamma-Aminobutyric Acid-ergic Agonist Start: 02-12-2021 End: 06-14-2022 take 20 mg by mouth once daily in the morning Baclofen Discontinued 20 MG PO Every morning February 11, 2021 11:00pm June 14, 2022 7:25am Start: 11-24-2020 End: 06-14-2022 take 40 mg by mouth once daily at bedtime Baclofen Discontinued 40 MG PO Daily at bedtime 60 February 11, 2021 11:00pm June 14, 2022 7:26am Start: 09-28-2017 End: 02-12-2021 take 20 mg by mouth once daily in the morning Baclofen Discontinued 20 MG PO Every morning September 28, 2017 12:00am February 12, 2021 7:59am ciprofloxacin 500 mg oral tablet (20 sources) Quinolone Antimicrobial Start: 11-02-2022 End: 11-29-2022 take 1 tablet by mouth twice daily Ciprofloxacin Hcl (Cipro) 500 mg tablet Discontinued 500 MG PO Twice daily November 02, 2022 12:00am November 29, 2022 9:10am citalopram 40 mg oral tablet (20 sources) Serotonin Reuptake Inhibitor Start: 09-28-2017 End: 08-12-2022 take 40 mg by mouth at bedtime Citalopram Discontinued 40 MG PO Bedtime 30 February 11, 2021 11:00pm August 12, 2022 12:40pm take 0.5 tablet by m outh every twenty-four hours CeleXA 40 MG 0.5 tablet Orally Once a day Active diclofenac potassium 50 mg oral tablet (20 sources) Nonsteroidal Anti-inflammatory Drug Start: 09-28-2017 End: 01-12-2018 Diclofenac Potassium Discontinued TABLET September 28, 2017 12:00am January 12, 2018 7:02am Voltaren 1 % dimas ly 1-2 grams to affected area Externally BID Active docusate sodium 100 mg oral capsule (20 sources) Start: 01-28-2021 End: 06-14-2022 take 1 capsule by mouth twice daily Docusate Sodium (Dok) 100 mg Capsule Discontinued 100 MG PO Twice daily 60 February 11, 2021 11:00pm June 14, 2022 7:26am doxycycline hyclate 100 mg oral tablet (15 sources) Tetracycline-class Drug Start: 10-30-2023 End: 12-02-2023 take 100 mg by mouth twice daily Doxycycline Hyclate Discontinued 100 MG PO Twice daily 10 October 30, 2023 12:00am December 02, 2023 2:55pm lisinopril 20 mg oral tablet (20 sources) Angiotensin Converting Enzyme Inhibitor Start: 09-28-2017 End: 02-03-2021 take 40 mg by mouth once daily Lisinopril Discontinued 40 MG PO Daily September 28, 2017 12:00am February 03, 2021 8:28am take 1 tablet by marcela every twenty-four hours Lisinopril 40 MG 1 tablet Orally Once a day Active meloxicam 15 mg oral tablet (20 sources) Nonsteroidal Anti-inflammatory Drug Start: 02-02-2021 End: 02-05-2021 take 15 mg by mouth once daily Meloxicam Discontinued 15 MG PO Daily February 01, 2021 11:00pm February 05, 2021 4:19pm Multivitamin preparation (20 sources) Start: 11-24-2020 End: [...] MG PO Twice daily November 24, 2020 12:00am February 02, 2021 6:53am Nabumetone 500 M G (Prior Auth#:[id number]) Oral for 30 Active phentermine hydrochloride 37.5 mg oral tablet (20 sources) Sympathomimetic Amine Anorectic Start: 02-02-2021 End: 02-05-2021 take 1 tablet by mouth once daily in the morning Phentermine (Adipex-P) 37.5 mg Tablet Discontinued 37.5 MG PO Every morning February 01, 2021 11:00pm February 05, 2021 4:19pm polysaccharide iron complex 150 mg oral capsule (20 sources) Start: 02-12-2021 End: 06-14-2022 Polysaccharide Iron Complex (Ferrex 150) 150 mg iron Capsule Discontinued 150 MG PO Every morning February 11, 2021 11:00pm June 14, 2022 7:26am predniSONE 50 mg oral tablet (20 sources) Start: 01-30-2023 End: 02-28-2023 take 50 mg by mouth once daily at mealtime Prednisone Discontinued 50 MG PO Daily 02 17January 29, 2023 11:00pm February 28, 2023 8:03am administer with food or milk tamsulosin hydrochloride 0.4 mg oral capsule (20 sources) alpha-Adrenergic Elli Start: 08-23-2022 End: 11-29-2022 take 0.4 mg by mouth once daily at bedtime Tamsulosin Discontinued 0.4 MG PO Daily at bedtime September 30, 2022 12:00am November 29, 2022 9:11am Start: 02-05-2021 End: 06-14-2022 take 0.4 mg by mouth once daily in the morning Tamsulosin Discontinued 0.4 MG PO Every morning February 11, 2021 11:00pm June 14, 2022 7:26am traMADol hydrochloride 50 mg oral tablet (20 sources) Opioid Agonist Start: 08-26-2024 End: 08-31-2024 take 1 tablet by mouth every six hours for pain traMADol (Ultram) 50 MG tablet Indications: Paronychia, toe, left , Paronychia, toe, right Take 1 tablet (50 mg) by mouth every 6 (six) hours if needed for severe pain for up to 5 days 15 tablet 08/26/2024 08/31/2024 Start: 02-28-2023 End: 12-02-2023 take 50 mg by mouth every four hours Tramadol Discontinued 50 MG PO Q4H 14 7 August 29, 2023 12:00am October 30, 2023 7:51am Start: 02-07-2023 End: 08-26-2024 traMADol (Ultram) 50 MG tabl et Twice daily 08/18/2023 08/26/2024 Discontinued (Reorder) Start: 07-26-2022 End: 11-29-2022 Tramadol Discontinued 50 MG PO As Directed July 25, 2022 11:00pm November 29, 2022 9:12am Start: 07-26-2022 End: 11-29-2022 take 1 tablet by mouth every twenty-four hours traMADol HCl 50 MG 1 tablet as needed Orally Once a day for 30 days Jul, Not-Taking/PRN Start: 06-27-2022 take 1 tablet by marcela [...] 50 MG PO Q4H 40 7 February 11, 2021 11:00pm June 14, 2022 7:26am Start: 02-05-2021 End: 02-12-2021 take 100 mg by mouth every six hours Tramadol Discontinued 100 MG PO Q6H February 04, 2021 11:00pm February 12, 2021 7:59am triamcinolone acetonide 40 mg/ml injectable suspension (20 sources) Corticosteroid Start: 09-20-2023 Kenalog-40 Sep, 40 mg Start: 02-20-2018 Kenalog -40 mg February, 40 mg Walker - (5 sources) Start: 12-04-2020 Walker Samuel brito rected Nov, Not-Taking Problems Active Problems Problem Classification [...] unguium] 08-05-2024 Episodic Open wounds of extremities (19 sources) Laceration of finger; Translations: [Laceration without foreign body of unspecified finger without damage to nail, initial encounter] 2023 Episodic Open wounds of head; neck; and trunk (19 sources) Laceration - injury; Translations: [Laceration] 2023 Episodic Osteoarthritis (20 sources) Osteoarthritis of right knee joint; Translations: [Unilateral primary osteoarthritis, right knee] Onset: 02-02-2022 Resolved: 05-09-2022 Chronic Other aftercare (1 source) penitentiary (current) use of aspirin; Translations: [NEWS LIBRARIAN CURRENT USE OF ASPIRIN] Onset: 01-19-2023 Episodic Other aftercare (1 source) Other terminal press operator (current) drug therapy; Translations: [OTH NEWS LIBRARIAN CURRENT DRUG THERAPY] Onset: 01-19-2023 Episodic Other [...] Resolved: 05-09-2022 Chronic Other connective tissue disease (13 sources) Presence of unspecified artificial knee joint; Translations: [Knee joint replacement] 03-13-2024 Chronic Other connective tissue disease (1 source) Arthrodesis status Episodic Other connective tissue disease (16 sources) Hematoma 12-07-2022 Episodic Other connective tissue disease (14 sources) Impingement syndrome of shoulder region 10-05-2022 Episodic Other connective tissue disease (14 sources) Lateral epicondylitis of left humerus; Translations: [Lateral epicondylitis, left elbow] 12-02-2023 Episodic Other connective tissue disease (13 sources) Hand pain; Translations: [Pain in right hand] 12-06-2023 Episodic Other connective tissue disease (13 sources) Triggering of digit; Translations: [Trigger finger, right middle finger] 12-06-2023 Episodic Other connective tissue disease (4 sources) Pain in right hand; Translations: [Pain in limb] 12-06-2023 Episodic Other connective tissue disease (10 sources) Trigger finger, right middle finger; Translations: [Trigger finger (acquired)] 12-06-2023 Episodic Other connective tissue disease (6 sources) Tendinitis of left quadriceps tendon; Translations: [Other specified enthesopathies of left lower limb, excluding foot] 04-29-2024 Episodic Other connective tissue disease (6 sources) Tendinitis of right quadriceps tendon; Translations: [Other specified enthesopathies of right lower limb, excluding foot] 04-29-2024 Episodic Other connective tissue disease (8 sources) Other specified enthesopathies of left lower [...] syndrome, left] Chronic Other nervous system disorders (18 sources) Ulnar nerve entrapment at elbow; Translations: [Lesion of ulnar nerve, unspecified upper limb] 08-29-2023 Chronic Other nervous system disorders (6 sources) Lesion of ulnar nerve, unspecified upper limb; Translations: [Lesion of ulnar nerve] Onset: 08-29-2023 12-04-2023 Chronic Other nervous system disorders (11 sources) Neuropathy; Translations: [Polyneuropathy, unspecified] 02-01-2024 Chronic Other nervous system disorders (17 sources) Polyneuropathy, unspecified; Translations: [Mononeuritis of unspecified site] 02-01-2024 Chronic Other nervous system disorders (20 sources) Postoperative pain ; Translations: [Other acute postprocedural pain] 02-06-2021 Episodic Other nervous system disorders (14 sources) Tremor 10-05-2022 Episodic Other nervous system disorders (15 sources) Pain in limb; Translations: [Other acute [...] right upper limb Episodic Other skin disorders (15 sources) Lump on finger; Translations: [Localized swelling, [...] [Other postprocedural status] Episodic Residual codes; unclassified (14 sources) Postprocedural state finding; Translations: [Other specified postprocedural states] 12-02-2023 Episodic Residual codes; unclassified (14 sources) History of operative procedure on elbow; Translations: [Other specified postprocedural states] 12-02-2023 Episodic Screening and history of mental health and substance abuse codes (14 sources) Tobacco use and exposure - finding 10-05-2022 Chronic Skin and subcutaneous tissue infections (12 sources) Paronychia of toe of left foot; Translations: [Cellulitis of left toe] 08-05-2024 Episodic Spondylosis; intervertebral disc disorders; other back problems (20 sources) Lumbar arthritis; Translations: [Spondylosis without myelopathy or radiculopathy, lumbar region] Onset: 05-09-2022 Resolved: 06-27-2022 Chronic Spondylosis; intervertebral disc disorders; other back problems (20 sources) Radiculopathy, lumbar region; Translations: [Spinal stenosis of lumbar region] Onset: 05-09-2022 Resolved: 05-09-2022 Episodic Superficial injury; contusion (20 sources) Contusion of [...] unspecified; Translations: [INSOMNIA UNSPECIFIED] Onset: 09-24-2022 Episodic Unclassified (4 sources) Other low back pain M54.59 Onset: 06-27-2022 Resolved: 06-27-2022 Results Test Name Value Interpretation Reference Range Facility Automated basophil %Ordered By: Venkat Paredes on 08-20-2024 Basophils/100 WBC (Bld) 0.5 % Normal . [facility] Comment on above: Performed By: #### B MP, CBC #### [address] Automated basophil countOrde red By: Venkat Paredes on 08-20-2024 Basophils (Bld) [#/Vol] 0.0 10*3/uL Normal 0.0-0.2 [facility] Comment on above: Result Comment: PERF ORMED BY: [place] [address] PATHOLOGIST GRAIN ROASTER BENEDICTO WOOD M.D. Performed By: #### B MP, CBC #### [address] Automated blood monocyte cou ntOrdered By: Venkat Paredes on 08-20-2024 Monocytes (Bld) [#/Vol] 1.0 10*3/uL High 0.0-0.8 [facility] Comment on above: Performed By: #### B MP, CBC #### [address] Automated eosinophil %Ordere d By: Venkat Paredes on 08-20-2024 Eosinophils/100 WBC (Bld) 2.3 % Normal . [facility] Comment on above: Performed By: #### B MP, CBC #### [address] Automated eosinophil countOr dered By: Venkat Paredes on 08-20-2024 Eosinophils (Bld) [#/Vol] 0.2 10*3/uL Normal 0.0-0.45 [facility] Comment on above: Performed By: #### B MP, CBC #### [address] Automated monocyte %Ordered By: Venkat Paredes on 08-20-2024 Monocytes/100 WBC (Bld) 10.8 % Normal . [facility] Comment on above: Performed By: #### B MP, CBC #### [address] Automated neutrophil %Ordere d By: Venkat Paredes on 08-20-2024 Neutrophils/100 WBC (Bld) 58.9 % Normal . [facility] Comment on above: Performed By: #### B MP, CBC #### [address] Basic Metabolic Panelon 11 GFR/1.73 sq M.predicted MDRD (S/P/Bld) [Vol rate/Area] mL/min/{1.73_m2} Normal [facility] Comment on above: Performed By: #### B MP, CBC #### [facility] [address] Basic metabolic 1998 panelon 08-20-2024 Anion gap [Moles/Vol] 11.9 mmol/L 6.0 - 15.0 [facility] Calcium [Mass/Vol] 8.6 mg/dL 8.6 - 10. 3 mg/dL [facility] Chloride [Moles/Vol] 108 mmol/L High 98 - 10 7 mmol/L [facility] CO2 [Moles/Vol] 27.5 mmol/L 21.0 - 31.0 mmol/L [facility] Creatinine (U) [Mass/Vol] 1.27 mg/dL 0.70 - 1.30 mg/dL [facility] GFR/1.73 sq M.predicted MDRD (S/P/Bld) [Vol rate/Area] mL/min/{1.73_m2} [facility] Glucose [Mass/Vol] 119 mg/dL High 70 - 100 mg/dL [facility] Comment on above: Random Glucose Refer ence Range is dependent on time and content of last meal. Glucose of more than 200 mg/dL in a nonstressed, ambulatory subject supports the diagnosis of Diabetes Mellitus. ADA recommended reference range Interpretation and review of laboratory results Abnormal [facility] Potassium [Moles/Vol] 4.4 mmol/L 3.5 - 5.1 mmol/L [facility] Sodium [Moles/Vol] 143 mmol/L 136 - 145 mmol/L [facility] Urea nitrogen [Mass/Vol] 10 mg/dL 7 - 25 mg/dL [facility] CBC W Auto Differential pane l (Bld)on 08-20-2024 Basophils (Bld) [#/Vol] 0 10*3/uL 0.0 - 0.2 10*3/uL [facility] Basophils/100 WBC Manual cnt (Syn fld) 0.5 % . [facility] Eosinophils (Bld) [#/Vol] 0.2 10*3/uL 0.0 - 0.45 10*3/uL [facility] Eosinophils/100 WBC Manual cnt (Syn fld) 2.3 % . [facility] Erythrocyte distribution width (RBC) [Ratio] 15.4 % High 12.0 - 14.8 % [facility] Hematocrit (Bld) [Volume fraction] 40.5 % 38.8 - 50.0 % [facility] Hemoglobin (Bld) [Mass/Vol] 13.5 g/dL 13.0 - 17.0 g/dL [facility] Interpretation and review of laboratory results Abnormal [facility] Lymphocytes (Bld) [#/Vol] 2.6 10*3/uL 1.00 - 4.8 10*3/uL [facility] Lymphocytes/100 WBC Manual cnt (Syn fld) 27.5 % . [facility] MCH (RBC) [Entitic mass] 25.9 pg Low 27.5 - 35.2 pg [facility] MCHC (RBC) [Mass/Vol] 33.3 g/dL 32.5 - 35.6 g/dL [facility] MCV (RBC) [Entitic vol] 77.8 fL Low 83.5 - 101 fL [facility] Monocytes (Bld) [#/Vol] 1 10*3/uL High 0.0 - 0.8 10*3/uL [facility] Monocytes+Macrophages /100 WBC Manual cnt (Syn fld) 10.8 % . [facility] Neutrophils (Bld) [#/Vol] 5.7 10*3/uL 1.8 - 7.7 10*3/uL [facility] Neutrophils/100 WBC Manual cnt (Syn fld) 58.9 % . [facility] NRBC 0.2 /100{WBC} 0 - 0.5 /100{WBC} [facility] Platelet mean volume (Bld) [Entitic vol] 7.5 fL 6.6 - 10.1 fL [facility] Platelets (Bld) [#/Vol] 217 10*3/uL 150 - 450 10*3/uL [facility] RBC LM.HPF (Urine sed) [#/Area] 5.21 /[HPF] 3.90 - 5.60 [facility] WBC (Bld) [#/Vol] 9.6 10*3/uL 4.1 - 10.5 10*3/uL [facility] WBC LM.HPF (Urine sed) [#/Area] 9.6 10*3/uL 4.1 - 10.5 10*3/uL [facility] Calcium [Mass/volume] in Ser um or PlasmaOrdered By: Venkat Paredes on 08-20-2024 Calcium [Mass/Vol] 8.6 mg/dL Normal 8.6-10.3 [facility] Comment on above: Result Comment: PERF ORMED BY: [place] [address] PATHOLOGIST GRAIN ROASTER BENEDICTO WOOD M.D. Performed By: #### B MP, CBC #### [address] Carbon dioxide, total [Moles /volume] in Serum or PlasmaOrdered By: Venkat Paredes on 08-20-2024 CO2 [Moles/Vol] 27.5 mmol/L Normal 21.0-31.0 [facility] Comment on above: Performed By: #### B MP, CBC #### [address] Chloride [Moles/volume] in S lilli or PlasmaOrdered By: Venkat Paredes on 08-20-2024 Chloride [Moles/Vol] 108 mmol/L High 98-107 [facility] Comment on above: Performed By: #### B MP, CBC #### [address] Complete Blood Count Auto Di ffon 08-20-2024 Mean Corpuscular HGB Conc 33.3 g/dL Normal 32.5-35.6 [facility] Comment on above: Performed By: #### B MP, CBC #### [address] NRBC% 0.2 /100{WBC} Normal 0-0.5 [facility] Comment on above: Performed By: #### B MP, CBC #### [address] Creatinine [Mass/volume] in Serum or PlasmaOrdered By: Venkat Paredes on 08-20-2024 Creatinine [Mass/Vol] 1.27 mg/dL Normal 0.70-1.30 [facility] Comment on above: Performed By: #### B MP, CBC #### [facility] [address] [place], [place] [id number] [facility] ECG 12 lead ECGon 08-20-2024 ECG 12 lead ECG [facility] [place] [address] [place] [address] Electrocardiograph Report Signed Patient: Lima Loyd MR#: [id number] : 1965 Acct:[id number] Age/Sex: 58 / M ADM Date: 08/20/24 Loc: Room: Type: [facility] Attending Dr: Venkat Paredes DPJuan Ordering Provider: Venkat Paredes DPM Date of Service: 08/20/24/ ECG/ECG 12 lead ECG: pst Copies to: Test Reason : Blood Pressure : */* mmHG Vent. Rate : 79 BPM Atrial Rate : 79 BPM P-R Int : 150 ms QRS Dur : 102 ms QT Int : 398 ms P-R-T Axes : -12 43 9 degrees QTcB Int : 456 ms Normal sinus rhythm Normal ECG When compared with ECG of 15-Aug-2023 09:15, No significant change was found Confirmed by ALFONSO NAVARRO [facility], ELENA ([id number]) on 08/20/2024 2:16:35 PM Referred By: Electronically Signed By: ELENA HAMILTON MD [facility] Transcribed By: MUS Signed By Elena Hamilton MD, [facility] 08/20/24 1416 Normal [facility] Erythrocyte distribution wid th [Ratio] by Automated countOrdered By: Venkat Paredes on 08-20-2024 Erythrocyte distribution width (RBC) [Ratio] 15.4 % High 12.0-14.8 [facility] Comment on above: Performed By: #### B MP, CBC #### [facility] [address] [place] [address] [place] Erythrocytes [#/volume] in B lood by Automated countOrdered By: Venkat Paredes on 08-20-2024 RBC (Bld) [#/Vol] 5.21 10*6/uL Normal 3.90-5.60 [facility] Comment on above: Performed By: #### B MP, CBC #### [facility] [address] [place] [address] [place] Glucose [Mass/volume] in Ser um or PlasmaOrdered By: Venkat Paredes on 08-20-2024 Glucose [Mass/Vol] 119 mg/dL High 70-100 [facility] Comment on above: ADA recommended refe rence rangeRandom Glucose Reference Range is dependent on time and content of last meal. Glucose of more than 200 mg/dL in a nonstressed, ambulatory subject supports the diagnosis of Diabetes Mellitus. Result Comment: [place] om Glucose Reference Range is dependent on time and content of last meal. Glucose of more than 200 mg/dL in a nonstressed, ambulatory subject supports the diagnosis of Diabetes Mellitus. ADA recommended reference range Performed By: #### B MP, CBC #### [address] Hematocrit [Volume Fraction] of Blood by Automated countOrdered By: Venkat Paredes on 08-20-2024 Hematocrit (Bld) [Volume fraction] 40.5 % Normal 38.8-50.0 [facility] Comment on above: Performed By: #### B MP, CBC #### [address] Hemoglobin [Mass/volume] in BloodOrdered By: Venkat Paredes on 08-20-2024 Hemoglobin (Bld) [Mass/Vol] 13.5 g/dL Normal 13.0-17.0 [facility] Comment on above: Performed By: #### B MP, CBC #### [address] Leukocytes [#/volume] correc tremaine for nucleated erythrocytes in Blood by Automated counOrdered By: Venkat Paredes on 08-20-2024 WBC corrected for nucl RBC Auto (Bld) [#/Vol] 9.6 10*3/uL 4.1-10.5 [facility] Leukocytes [#/volume] in Blo od by Automated countOrdered By: Venkat Paredes on 08-20-2024 WBC (Bld) [#/Vol] 9.6 10*3/uL Normal 4.1-10.5 [facility] Comment on above: Performed By: #### B MP, CBC #### [address] Lymphocytes [#/volume] in Bl ood by Automated countOrdered By: Venkat Paredes on 08-20-2024 Lymphocytes (Bld) [#/Vol] 2.6 10*3/uL Normal 1.00-4.8 [facility] Comment on above: Performed By: #### B MP, CBC #### [address] Lymphocytes/100 leukocytes i n Blood by Automated countOrdered By: Venkat Paredes on 08-20-2024 Lymphocytes/100 WBC (Bld) 27.5 % Normal . [facility] Comment on above: Performed By: #### B MP, CBC #### [address] MCH [Entitic mass] by Automa tremaine countOrdered By: Venkat Paredes on 08-20-2024 MCH (RBC) [Entitic mass] 25.9 pg Low 27.5-35.2 [facility] Comment on above: Performed By: #### B MP, CBC #### [address] MCHC Auto (RBC) [Mass/Vol]Or dered By: Venkat Paredes on 08-20-2024 MCHC (RBC) [Mass/Vol] 33.3 g/dL 32.5-35.6 [facility] MCV [Entitic volume] by Auto mated countOrdered By: Venkat Paredes on 08-20-2024 MCV (RBC) [Entitic vol] 77.8 fL Low 83.5-101 [facility] Comment on above: Performed By: #### B MP, CBC #### [place] [address] [place] Neutrophils [#/volume] in Bl ood by Automated countOrdered By: Venkat Paredes on 08-20-2024 Neutrophils (Bld) [#/Vol] 5.7 10*3/uL Normal 1.8-7.7 [facility] Comment on above: Performed By: #### B MP, CBC #### [address] No Panel InformationOrdered By: Venkat Paredes on 08-20-2024 Estimated GFR (CKD-EPI) > 60.0 mL/Min [facility] Creatinine Clearance (Chem N/A [facility] Nucleated erythrocytes [Pres ence] in Blood by Automated countOrdered By: Venkat Paredes on 08-20-2024 Nucleated RBC Auto Ql (Bld) 0.2 /100{WBC} 0-0.5 [facility] Platelet mean volume [Entiti c volume] in Blood by Automated countOrdered By: Venkat Paredes on 08-20-2024 Platelet mean volume (Bld) [Entitic vol] 7.5 fL Normal 6.6-10.1 [facility] Comment on above: Performed By: #### B MP, CBC #### [facility] [address] [place] [address] Platelets [#/volume] in Bloo d by Automated countOrdered By: Venkat Paredes on 08-20-2024 Platelets (Bld) [#/Vol] 217 10*3/uL Normal 150-450 [facility] Comment on above: Performed By: #### B MP, CBC #### [facility] [address] [place] [address] Potassium [Moles/volume] in Serum or PlasmaOrdered By: Venkat Paredes on 08-20-2024 Potassium [Moles/Vol] 4.4 mmol/L Normal 3.5-5.1 [facility] Comment on above: Performed By: #### B MP, CBC #### [address] Serum or plasma anion gap de terminationOrdered By: Venkat Paredes on 08-20-2024 Anion gap [Moles/Vol] 11.9 mmol/L Normal 6.0-15.0 [facility] Comment on above: Performed By: #### B MP, CBC #### [facility] [address] [place] [address] [place] Sodium [Moles/volume] in Ser um or PlasmaOrdered By: Venkat Paredes on 08-20-2024 Sodium [Moles/Vol] 143 mmol/L Normal 136-145 [facility] Comment on above: Performed By: #### B MP, CBC #### [facility] [address] Urea nitrogen [Mass/volume] in Serum or PlasmaOrdered By: Venkat Tyson on 08-20-2024 Urea nitrogen [Mass/Vol] 10 mg/dL Normal - [facility] Comment on above: Performed By: #### B MP, CBC #### [facility] [address] [place] [id number] [facility] Reminderson 05-16-2024 Reminders Reminders From: Namita Alexander To: TE[place] - Paula Sweet; Sent: 11/03/2023 10:50:57 EST Show up: 04/03/2024 11:50:00 EDT Subject: CHANTEL/KUB Due Date/Time: 05/03/2024 11:50:00 EDT Pt is to get KUB and CHANTEL done prior to appt. Called pt and advised of below message. Orders faxed to [facility] for CHANTEL/KUB. Called and scheduled pt for 05/07/24 @ 10:00 AM. Pt notified. Pt seen KML on 05/09/24 to review imaging Normal [facility] Ambulatory Visit Summaryon 0 05-09-2024 Ambulatory Visit [...] physician. Your Care Team Attending Physician - Kee [...] Follow-Up Appointments Monday 11:00 AM EST With: Kee NAVARRO, Patito Good [facility] [place] [address]- You Need to Schedule the Following Appointments Follow Up with Kee NAVARRO, Patito Good, URL, URO When: Where: Medications What How Much When Instructions New tadalafil (Cialis 20 mg Tab) 1 Tablets By Mouth As Directed Refills: 3 Take one tab by mouth one to two hours prior to sexual activity. Do NOT exceed 20 mg (1 tab) in 24 hours. Pickup at [facility] [id number] Unchanged potassium citrate (potassium CITRATE 10 mEq [...] physician if questions or concerns Pharmacy Information [facility] [id number]: [address] [place], [place] [id number] [phone] Allergies Augmentin (Hives) Bee Stings morphine (Unknown) [...] to de (more content not included)... Normal [facility]rology Office/Clinic Noteon 05-09-2024 Urology Office/Clinic Note [...] has improved. (more content not included)... Normal [facility] Comment on above: Result Comment: Elec tronically Signed By: Patito Sweet MD\.br\Date and Time Signed: 05/09/24 11:06 EDT\.br\Electronically Co-Signed By: Katherine Harrison\.br\Date and Time Co-Signed: 05/09/24 10:37 EDT Basic Metabolic Panelon 04-16 GFR/1.73 sq M.predicted MDRD (S/P/Bld) [Vol rate/Area] mL/min/{1.73_m2} Normal [facility] Comment on above: Performed By: #### B MP #### [address] Calcium [Mass/volume] in Ser um or PlasmaOrdered By: Patito Sweet on 05-07-2024 Calcium [Mass/Vol] 8.5 mg/dL Low 8.6-10.3 [facility] Comment on above: Result Comment: PERF ORMED BY: [place] [address] PATHOLOGIST GRAIN ROASTER BENEDICTO WOOD M.D. Performed By: #### B MP #### [place] [address] [place] Carbon dioxide, total [Moles /volume] in Serum or PlasmaOrdered By: Patito Sweet on 05-07-2024 CO2 [Moles/Vol] 26.8 mmol/L Normal 21.0-31.0 [facility] Comment on above: Performed By: #### B MP #### [place] [address] [place] Chloride [Moles/volume] in S lilli or PlasmaOrdered By: Patito Sweet on 05-07-2024 Chloride [Moles/Vol] 105 mmol/L Normal 98-107 [facility] Comment on above: Performed By: #### B MP #### [place] [address] [place] Creatinine [Mass/volume] in Serum or PlasmaOrdered By: Patito Sweet on 05-07-2024 Creatinine [Mass/Vol] 1.12 mg/dL Normal 0.70-1.30 [facility] Comment on above: Performed By: #### B MP #### [place] [address] [place] Glucose [Mass/volume] in Ser um or PlasmaOrdered By: Patito Sweet on 05-07-2024 Glucose [Mass/Vol] 191 mg/dL High 70-100 [facility] Comment on above: ADA recommended refe rence rangeRandom Glucose Reference Range is dependent on time and content of last meal. Glucose of more than 200 mg/dL in a nonstressed, ambulatory subject supports the diagnosis of Diabetes Mellitus. Result Comment: [place] om Glucose Reference Range is dependent on time and content of last meal. Glucose of more than 200 mg/dL in a nonstressed, ambulatory subject supports the diagnosis of Diabetes Mellitus. ADA recommended reference range Performed By: #### B MP #### [address] No Panel InformationOrdered By: Patito Sweet on 05-07-2024 Estimated GFR (CKD-EPI) > 60.0 mL/Min [facility] Creatinine Clearance (Chem N/A [facility] Potassium [Moles/volume] in Serum or PlasmaOrdered By: Patito Sweet on 05-07-2024 Potassium [Moles/Vol] 4.2 mmol/L Normal 3.5-5.1 [facility] Comment on above: Performed By: #### B MP #### [address] Serum or plasma anion gap de terminationOrdered By: Patito Sweet on 05-07-2024 Anion gap [Moles/Vol] 9.4 mmol/L Normal 6.0-15.0 [facility] Comment on above: Performed By: #### B MP #### [address] Sodium [Moles/volume] in Ser um or PlasmaOrdered By: Patito Sweet on 05-07-2024 Sodium [Moles/Vol] 137 mmol/L Normal 136-145 [facility] Comment on above: Performed By: #### B MP #### [address] US renal BIon 05-07-2024 US renal BI [facility] [place] [address] Ultrasound Report Signed Patient: Lima Loyd MR#: [id number] : 1965 Acct:[id number] Age/Sex: 58 / M ADM Date: 05/07/24 Loc: Room: Type: [facility] Attending Dr: Patito Sweet MD Ordering Provider: [...] Perez Jr., D.OAlejo05/07/2024 12:10 PM Dictation Location: [place] [address] Tech: Ghislaine Sim Transcribed By: ALDEN 05/07/24 1210 Dictated By: Abad Perez Jr, DO 05/07/24 1209 Signed By: 05/07/24 1210 Normal [facility] Urea nitrogen [Mass/volume] in Serum or PlasmaOrdered By: Patito Sweet on 05-07-2024 Urea nitrogen [Mass/Vol] 10 mg/dL Normal 05-09 [facility] Comment on above: Performed By: #### B MP #### [address] XR abdomen 1Von 05-07-2024 XR abdomen 1V [facility] [place] [address] [place] [address] XRay Report Signed Patient: Lima Loyd MR#: [id number] : 1965 Acct:[id number] Age/Sex: 58 / M ADM Date: 05/07/24 Loc: Room: Type: [facility] Attending Dr: Patito Sweet MD Copies to: Patito Sweet MD Ordering Provider: Patito Sweet MD Date of Service: 05/07/24 XR/XR abdomen [...] KUB. Impression dictated by: Abad Perez Jr., D.O.05/07/2024 12:11 PM Dictation Location: RADIO-PC-08 Transcribed By: PWS 05/07/24 1211 Dictated By: Abad Perez Jr, DO 05/07/24 1210 Signed By: 05/07/24 1211 Normal [facility] XR knee LT 3V - NOT FOR ER U Stew 03-13-2024 XR knee LT 3V - NOT FOR ER USE [facility] [address] [place] [address] XRay Report Signed Patient: Lima Loyd MR#: [id number] : 1965 Acct:[id number] Age/Sex: 58 / M ADM Date: 03/13/24 Loc: [facility] Room: Type: [facility] Attending Dr: Gaurav Higuera DO Copies to: Gaurav Higuera DO Ordering Provider: Gaurav Higuera DO Date of Service: 03/13/24 XR/XR knee [...] COMPLICATION. Impression dictated by: Abad Perez Jr., D.O.03/13/2024 4:34 PM Dictation Location: [facility]-08 Transcribed By: PWS 03/13/24 1634 Dictated By: Abad Perez Jr DO 03/13/24 1633 Signed By: 03/13/24 1634 Normal [facility] [place] 12-18-2023 Consent [id number] Normal [facility] Registrationon 12-18-2023 Registration [id number]#1.00TIFF Normal [facility] Lab Reportson 11-24-2023 Lab Reports [id number] Normal [facility] Basic Metabolic Panelon GFR/1.73 sq M.predicted MDRD (S/P/Bld) [Vol rate/Area] mL/min/{1.73_m2} Normal [facility] Comment on above: Performed By: #### B MP #### [place] [address] [place] Calcium [Mass/volume] in Ser um or PlasmaOrdered By: Patito Sweet on 11-23-2023 Calcium [Mass/Vol] 8.8 mg/dL Normal 8.6-10.3 [facility] Comment on above: Result Comment: PERF ORMED BY: [place] [address] PATHOLOGIST GRAIN ROASTER BENEDICTO WOOD M.D. Performed By: #### B MP #### [place] [address] [place] Carbon dioxide, total [Moles /volume] in Serum or PlasmaOrdered By: Patito Sweet on 11-23-2023 CO2 [Moles/Vol] 28.9 mmol/L Normal 21.0-31.0 [facility] Comment on above: Performed By: #### B MP #### [facility] [address] [id number] [place] Chloride [Moles/volume] in S lilli or PlasmaOrdered By: Patito Sweet on 11-23-2023 Chloride [Moles/Vol] 105 mmol/L Normal 98-107 [facility] Comment on above: Performed By: #### B MP #### [facility] [address] [place] [address] [place] Creatinine [Mass/volume] in Serum or PlasmaOrdered By: Patito Sweet on 11-23-2023 Creatinine [Mass/Vol] 1.15 mg/dL Normal 0.70-1.30 [facility] Comment on above: Performed By: #### B MP #### [facility] [address] Glucose [Mass/volume] in Ser um or PlasmaOrdered By: Patito Sweet on 11-23-2023 Glucose [Mass/Vol] 119 mg/dL High 70-100 [facility] Comment on above: ADA recommended refe rence rangeRandom Glucose Reference Range is dependent on time and content of last meal. Glucose of more than 200 mg/dL in a nonstressed, ambulatory subject supports the diagnosis of Diabetes Mellitus. Result Comment: [place] om Glucose Reference Range is dependent on time and content of last meal. Glucose of more than 200 mg/dL in a nonstressed, ambulatory subject supports the diagnosis of Diabetes Mellitus. ADA recommended reference range Performed By: #### B MP #### [address] No Panel InformationOrdered By: Patito Sweet on 11-23-2023 Estimated GFR (CKD-EPI) > 60.0 mL/Min [facility] Creatinine Clearance (Chem N/A [facility] Potassium [Moles/volume] in Serum or PlasmaOrdered By: Patito Sweet on 11-23-2023 Potassium [Moles/Vol] 4.3 mmol/L Normal 3.5-5.1 [facility] Comment on above: Performed By: #### B MP #### [address] Serum or plasma anion gap de terminationOrdered By: Patito Sweet on 11-23-2023 Anion gap [Moles/Vol] 9.4 mmol/L Normal 6.0-15.0 [facility] Comment on above: Performed By: #### B MP #### [address] Sodium [Moles/volume] in Ser um or PlasmaOrdered By: Patito Sweet on 11-23-2023 Sodium [Moles/Vol] 139 mmol/L Normal 136-145 [facility] Comment on above: Performed By: #### B MP #### [facility] [address] [id number] [facility] Urea nitrogen [Mass/volume] in Serum or PlasmaOrdered By: Patito Sweet on 11-23-2023 Urea nitrogen [Mass/Vol] 11 mg/dL Normal 7-25 [facility] Comment on above: Performed By: #### B MP #### [facility] [address] [id number] [facility] Screenson 11-06-2023 Screens [id number]#1.00TIFF Normal [facility] Screens [id number]#1.00TIFF Normal [facility] Ambulatory Visit Summaryon 0 11-03-2023 Ambulatory Visit Summary LIMA LOYD A :1965 Visit Date:11/03/2023 Ambulatory Visit Instructions Your Diagnosis Kidney stone BPH with urinary obstruction ED (erectile dysfunction) History of prostatitis Tests Performed Urnls Dip Stick Auto w/o Microscopy POC 05081 US Renal -- Results Pending -- XR [...] Follow-Up Appointments 2023 10:00 AM EDT With: Kee NAVARRO, Patito Good Where: [facility] Patient Educationon 11-03-19 Patient Education Urology [...] Follow these instructions at home: ? Take orou-zxx-fgnushb and prescription medicines only as told by [...] the medicine (more content not included)... Normal [facility] Urology Office/Clinic Noteon 11-03-2023 Urology Office/Clinic Note [...] he heard the stones hit the toilet. [place] some lower abdominal pain, sat down to [...] SE of dry mouth. Cysto 07/11/23 - jttgbcxl-sk-dsqepr bilobar hypertrophy, near kissing lateral lobes, 1+ trabeculations Calculated prostate volume: [address] 10/04 (more content not included)... Normal [facility] Comment on above: Result Comment: Elec tronically Signed By: Patito Sweet MD\.br\Date and Time Signed: 11/03/23 12:30 EST\.br\Electronically Co-Signed By: Namita Alexander\.br\Date and Time Co-Signed: 11/03/23 10:49 EST Damien 10-30-2023 L ------ Specimen: [id number] Received: 10/30/23 Status: RIK Magallanesabdelrahman Num: [id number] Spec Type: Surgical Subm Dr: Melissa Castellano MD Tissues: A Ganglion Cyst (RT MIDDLE FINGER, GANGLION C) Procedures: Héctor DUNLAP/Elsi L3 Age/ Patient Sex Location Account Attending Physician Lima Loyd 58/M NE [id number] Melissa Castellano MD SPEC NUM: [id number] RECD: 10/30/23 STATUS: RIK MAGALLANESAbdelrahman NUM: [id number] JAY: 10/30/[address] [facility] [address]: Melissa Castellano MD ENTERED: 10/30/[address] [facility] [address]: SPEC TYPE: Surgical DEPT: S ORDERED: HE, Gross/Micro [...] microscopic examination confirms the diagnosis. CPT Codes 96312 Specimen: [id number] Received: 10/30/23 Status: RIK Carloz Num: [id number] Spec Type: Surgical Subm Dr: Melissa Castellano MD Tissues: A Ganglion Cyst (RT MIDDLE FINGER, GANGLION C) Procedures: HE, Héctor/Elsi L3 Patient: Lima Loyd [id number] (Continued) Signed (signature on file) Ai Redd MD 10/31/23 0909 Normal [facility] IntraOperative Documentson 1 12-13-2022 IntraOperative Documents [id number]#1.00TIFF Normal [facility] Main OR Intraoperative Recor don 10-11-2023 Main OR Intraoperative Record IntraOp Document Type FT Summary Primary Physician: Patito Sweet MD Finalized Date/Time: 10/11/23 14:28:30 Pt. Name: LIMA LOYD D.O.B./Sex: 1965 Male Med Rec #: [id number] Physician: Patito Sweet MD Financial #: [id number] Pt. Type: A Room/Bed: [facility]/ Admit/Disch: 09/26/23 07:01:16 - 09/26/23 12:05:00 Institution: [...] 2 Entry 3 Case Attendee Tish ARROYO, ART TEACHER, Queen Kee NAVARRO, Patito Wright RN, Anais Kumar Role Performed ART TEACHER Surgeon - Primary Territory Service Representative - Primary Time In 09/26/23 09:45:00 09/26/23 09:45:00 09/26/23 09:45:00 Time Out 09/26/23 10:33:00 09/26/23 10:33:00 09/26/23 10:33:00 Procedure CYSTOSCOPY(.) CYSTOSCOPY(.) CYSTOSCOPY(.) Comments dr gramajo supervising Last Modified By: Kyle RICHARD, Anais Wright RN, Anais Wright RN, Anais Castro 09/26/23 10:33:04 09/26/23 10:33:04 09/26/23 10:33:04 Entry 4 Entry 5 Case Attendee Polo Brizuela FLAG MAKER, Sadie Nixon Role Performed Scrub - Primary Staff - Other Time In 09/26/23 09:45:00 09/26/23 09:45:00 Time Out 09/26/23 10:33:00 09/26/23 10:00:00 Procedure CYSTOSCOPY(.) CYSTOSCOPY(.) Comments Last Modified By: Kyle RICHARD, Anais Wrigth RN, Anais Castro 09/26/23 10:33:04 09/26/23 10:33:04 General Comments: BREA NUÑEZ, UROLIFT DIGITAL OPERATIONS ANALYST, ALSO IN ATTENDANCE. HILARY FLORESinteractive developer Protocols FT Pre-Care Text: Implements protective measures [...] PreOp Antibiotic Yes Time Out Tish ARROYO, ART TEACHER, Queen Toro Kumar, Kee NAVARRO, Patito Good, Anais Wright RN, Troike, Kendall R, Tejinder KENDALL, Sadie Nixon Time Out Complete 09/26/23 10:09:00 Outcomes Met? [...] and tissue Entry 1 Skin Integrity Intact, [place], Warm, and Skin Abnormality No Dry Outcomes Met? Yes Last Modified By: Anais Wright RN 09/26/23 09:59:04 Post-Care Text: The patient is [...] Secured in St (more content not included)... Normal [facility] Consent for Anesthesiaon Consent for Anesthesia [id number]#1.00TIFF Normal [facility] Discharge Instructionson Discharge Instructions [id number]#1.00TIFF [facility] IntraOperative Documentson 1 11-28-2022 IntraOperative Documents [id number]#1.00TIFF [facility] Preoperative Documentson Preoperative Documents [id number]#1.00TIFF [facility] COAGULATIONOrdered By: Sheree Lopez on 09-26-2023 aPTT Coag (PPP) [Time] 32.6 s Normal 25.1 - 36.5 second(s) [facility] Auto Coag Comment on above: Interpretive Data: P arameter 15 days - 4 weeks 1 - 5 months 6 - 11 months 1 - 5 years 6 - 10 years 11 - 17 years PTT Mean: 35.4 (27.6-45.6) Mean: 33.5 (24.8-40.7) Mean: 32.4 (25.1-40.7) Mean: 31.6 (24.0-39.2) Mean: 31.6 (26.9-38.7) Mean: 31.0 (24.6-38.4) Pediatric Reference ranges were obtained from a study by Toy Croft et al. prepared from 1437 samples obtained at 7 different centers using the same coagulation reagent and instrumentation as [facility]. Currently there are no coagulation studies available worldwide for children to 14 days, and no normal ranges. Heparin therapeutic range (represented by Anti-Factor Xa activity of 0.2 - 0.4 U/mL) corresponds to PTT of 56.6 - 109.0 sec. INR Coag (PPP) [Relative time] 1.1 {INR} Invalid Interpretation Code [facility] Auto Coag Comment on above: Interpretive Data: I NR results are specifically intended to assess patients stabilized on long-term Anticoagulation therapy suggested INR s Less Intensive Anticoagulation 2.0 3.0 Conventional Range 3.0 4.5 PT Coag (PPP) [Time] 12.6 s High 9.4 - 1 2.5 second(s) [facility] Auto Coag Comment on above: Interpretive Data: [...] from a study by Toy Croft et al. prepared from 1437 samples obtained at 7 different centers using the same coagulation reagent and instrumentation as [facility]. Currently there are no coagulation studies available worldwide for children to 14 days, and no normal ranges. Consent for Procedure/Surger yon 09-26-2023 Consent for Procedure/Surgery [id number]#1.00TIFF Normal [facility] Consent for Treatmenton 09-15 Consent for Treatment [id number]#1.00TIFF Normal [facility] Discharge Instructionson Discharge Instructions LIMA LOYD :1965 [...] appointment in 1 month with [facility] Where: [address] [place], [place] [address]dict [address] [address] [phone] Business (1) Medications What How Much When Instructions Next Dose New acetaminophen-hydrocodone ([place] 325 mg-5 mg oral tablet) 1 Tablets By Mouth Every 6 hours as needed for for pain Duration: 3 Days Pickup at [facility] [id number] New levofloxacin (Levaquin 500 mg Tab) 1 Tablets By Mouth Every 24 hours Duration: 3 Days Pickup at [facility] [id number] New oxybutynin (oxybutynin 5 mg Tab) 1 Tablets By Mouth 3 times a day Pickup at [facility] [id number] Unchanged alprazolam (Xanax 0.25 mg Tab) 1 [...] tramadol (traMADOL 50 mg Tab) Pharmacy Information [facility] [id number]: [address] [place] [phone] Allergies Augmentin (Hives) Bee Stings morphine (Unknown) Devices Implanted/Removed This Visit Notice: You have devices implanted this visit that may not be MRI compatible. Implanted CYSTOSCOPY Pelvis and Genitalia IMPLANT UROLIFT SYSTEM 09/26/2023 IMPLANT UROLIFT SYSTEM (6), 09/26/2023 Education Materials [facility] [place], [place] Post-Operative Instructions for UroLift After your [...] you experien (more content not included)... Normal [facility] Comment on above: Result Comment: Elec tronically Signed By: Karen RICHARD, Marci Aceves\.estefanía\Date and Time Signed: 09/26/23 11:05 EST H&P Updateon 09-26-2023 H&P Update [id number]#1.00TIFF Normal [facility] Inpatient Patient Summaryon 09-26-2023 Inpatient Patient Summary [address] [address] [facility] Clinical Discharge Instructions PERSON INFORMATION Name: LIMA LOYD [facility]#:[id number] PHYSICIANS Admitting Physician: Patito Sweet MD Attending Physician: Patito Sweet MD PCP: [place] NAVARRO, Jeff Discharge Diagnosis: BPH with urinary obstruction; Other obstructive and reflux uropathy Comment: PATIENT EDUCATION INFORMATION Instructions: Lue - Urolift Post-Op Instructions (CUSTOM) Medication Leaflets: Follow up: With: Address: When: Patito Sweet [address] [place], [place] [address] [phone] [facility] (1) Comments: Call for followup appointment in 1 month with [facility] MEDICATION LIST New Medications [facility] [id number], [address], [place] [phone], [phone] acetaminophen-hydrocodone ([place] 325 mg-5 mg oral tablet) 1 Tablets [...] sleep. tramadol (traMADOL 50 mg Tab) Comment: Normal [facility] Main OR PACU I Recordon 09-15 Main OR PACU I Record PACU Phase I Docum ent Type FT Summary Primary Physician: Patito Sweet MD Finalized Date/Time: 09/26/23 11:48:18 Pt. Name: EVERT LIMA Talavera./Sex: 1965 Male Med Rec #: [id number] Physician: Patito Sweet MD Financial #: [id number] Pt. Type: A Room/Bed: [facility]6/ Admit/Disch: 09/26/23 07:01:16 - Institution: Case Times [...] By: Fely Dowd RN 09/26/23 11:48 Normal [facility] Monitor Recordon 09-26-2023 Monitor Record [id number]#1.00TIFF Normal [facility] Operative Reporton 3 Operative Report Patient: BLANCA [...] The cystoscopy bridge was replaced with a [employer] UL-2 delivery device. The first treatment site [...] home. Follow-up in 1 month [facility]. Normal [facility] Comment on above: Result Comment: Elec tronically Signed By: Patito Sweet MD\.br\Date and Time Signed: 09/26/23 11:00 EST Outpatient Surgery Discharge Instructionon 09-26-2023 Outpatient Surgery Discharge Instruction [place] [id number] Patient Discharge Instructions PERSON INFORMATION Name: LIMA [...] THE NEAREST EMERGENCY ROOM OR CALL 911 EVERT Pope MICHAEL A, have received the attached patient education materials/instructions and have verbalized understanding: May we do a follow up call? Yes No I was present when discharge instructions were given ____ Patient Signature _ Date Clinican/Nurse Signature Date Follow up: With: Address: When: Patito Sweet [address] [place] [address] [address] [phone] [facility] (1) Comments: Call for followup appointment in 1 month with [facility] Pharmacy Information: [address] You may receive a survey from [employer] asking you to rate your care experience. Your feedback is important and will help us understand what we do well and how we can improve the quality of care we provide to you, your loved ones and our community. It?s an honor to serve you. Thank you for choosing [facility] HERE ARE THE MEDICATION CHANGES THAT OCCURRED DURING YOUR HOSPITAL STAY New Medications [facility] [id number], [address] [place] [id number], [phone] acetaminophen-hydrocodone ([place] 325 mg-5 mg oral tablet) 1 Tablets [...] Tab) PATIENT EDUCATION INFORMATION Instructions: [facility] [place], [place] Post-Operative Instructions for UroLift After your [...] sent to (more content not included)... Normal [facility] Outside Radiologyon 09-26-20 23 Outside Radiology [id number]#1.00TIFF Normal [facility] PT & PTTon 09-26-2023 aPTT Coag (PPP) [Time] 32.6 second(s) Normal 25.1-36.5 [facility] Comment on above: Result Comment: Para meter 15 days - 4 weeks 1 - 5 months 6 - 11 months 1 - 5 years 6 - 10 years 11 - 17 years PTT Mean: 35.4 (27.6-45.6) Mean: 33.5 (24.8-40.7) Mean: 32.4 (25.1-40.7) Mean: 31.6 (24.0-39.2) Mean: 31.6 (26.9-38.7) Mean: 31.0 (24.6-38.4) Pediatric Reference ranges were obtained from a study by Toy Croft et al. prepared from 1437 samples obtained at 7 different centers using the same coagulation reagent and instrumentation as [facility]. Currently there are no coagulation studies available worldwide for children to 14 days, and no normal ranges. Heparin therapeutic range (represented by Anti-Factor Xa activity of 0.2 - 0.4 U/mL) corresponds to PTT of 56.6 - 109.0 sec. Performed By: #### 1 [id number] ####[facility] [address] [place] [address] INR Coag (PPP) [Relative time] 1.1 {INR} Invalid Interpretation Code [facility] Comment on above: Result Comment: INR results are specifically intended to assess patients stabilized on long-term Anticoagulation therapy suggested INR?s ?Less Intensive Anticoagulation? 2.0 ? 3.0 Conventional Range 3.0 ? 4.5 Performed By: #### 1 [id number] ####[facility] [address] [place] [address] PT Coag (PPP) [Time] 12.6 second(s) High 9.4-12.5 [facility] Comment on above: Result Comment: 15 d [...] from a study by Toy Croft et al. prepared from 1437 samples obtained at 7 different centers using the same coagulation reagent and instrumentation as [facility]. Currently there are no coagulation studies available worldwide for children to 14 days, and no normal ranges. Performed By: #### 1 [id number] ####[facility] [address] [place] [address] Patient Education - Texton 1 11-27-2022 Patient Education - Text [facility] [place], [place] Post-Operative Instructions for UroLift After your [...] 24 ho (more content not included)... Normal [facility] Progress Note-Physicianon Progress Note-Physician Patient: LIMA LOYD Age: 58 years Sex: Male : 1965 Associated Diagnoses: None Author: Clyde Gramajo Jr., DO Postoperative Information Postoperative disposition: Postoperative disposition: Home. Optimetrix number: Optimetrix number [id number]. Anesthetic utilized: General. Physical Examination Vital Signs [...] Surgery Unit, and To home ). Normal [facility] Comment on above: Result Comment: Elec tronically [...] hrs., # 30 tab(s), Refills(s) 0, Pharmacy: [facility] [id number], 188, cm, 05/31/23 8:37:00 EDT, Height/Lengt... potassium CITRATE 10 mEq ER Tab: 10 mEq, 1 tab(s), Oral, BID, 180 tab(s), Refill(s) 3, [facility] [id number], 188, cm, 08/18/23 10:17:00 EDT, Height/Length Dosing, [...] list: All Problems Anxiety / SNOMED CT 70979434 / Confirmed Arthritis / SNOMED CT 0806374 / Confirmed BPH with urinary obstruction / SNOMED CT 7112581834 / Confirmed Cervical radiculopathy / SNOMED CT 323094205 / Confirmed Depression / SNOMED CT 32032329 / Confirmed ED (erectile dysfunction) / SNOMED CT 6617346802 / Confirmed Gross hematuria / SNOMED CT 115803956 / Confirmed History of prostatitis / SNOMED CT 6340098924 / Confirmed HTN (hypertension) / SNOMED CT 1360413731 / Confirmed Insomnia / SNOMED CT 166195111 / Confirmed Kidney stone / SNOMED CT 472329282 / Confirmed Lumbar radiculopathy / SNOMED CT 467655046 / Confirmed Poor short term memory / SNOMED CT 987741245 / Confirmed Prostatitis / SNOMED CT 57918898 / Confirmed Renal cyst / SNOMED CT 9835431476 / Confirmed Shoulder impingement syndrome / SNOMED CT 977749889 / Confirmed Thoracic spondylosis / SNOMED CT 7382897330 / Confirmed Tobacco use / SNOMED CT 863712633 / Confirmed Tremor / SNOMED CT 38388420 / Confirmed UTI (urinary tract infection) / SNOMED CT 631928011 / Confirmed Venous insufficiency / SNOMED CT 570245824 / Confirmed Resolved: Hematoma / SNOMED CT 4835497569 Canceled: Balanitis / SNOMED CT 40498120 Canceled: Erectile dysfunction / SNOMED CT 8892554003 Canceled: Gross hematuria / SNOMED CT 803356555 Canceled: Lesion of bladder / SNOMED CT 382823095 Canceled: Renal hematoma / SNOMED CT 759266427 Histories Past Medical History: Resolved He (more content not included)... Normal [facility] Comment on above: Result Comment: Elec tronically Signed By: Clyde Gramajo Jr., DO\.br\Date and Time Signed: 09/26/23 10:11 EST RAD - MISCon 09-19-2023 RAD - MISC [id number]#1.00TIFF Normal [facility] XR chest 2V*on 09-15-2023 XR chest 2V* [facility] Main [address] [address] XRay Report Signed Patient: Lima Loyd MR#: [id number] : 1965 Acct:[id number] Age/Sex: 58 / M ADM Date: 09/15/23 Loc: XD Room: Type: [facility] Attending Dr: Patito Sweet MD Copies to: [...] Garrett Astudillo M.D.09/15/2023 2:56 PM Dictation Location: [place] [address] Transcribed By: [facility] 09/15/23 1456 Dictated By: Garrett Astudillo DO 09/15/23 145 Signed By: 09/15/23 1456 Normal [facility] Outside Recordson 09-04-2023 Outside Records [id number]#1.00TIFF Normal [facility] ECG 12-Leadon 08-21-2023 ECG 12-Lead [id number]#1.00TIFF Normal [facility] Lab Reportson 08-21-2023 Lab Reports [id number]#1.00TIFF Normal [facility] Screenson 08-21-2023 Screens [id number]#1.00TIFF Normal [facility] Screens [id number]#1.00TIFF Normal [facility] Ambulatory Visit Summaryon 1 10-18-2022 Ambulatory Visit Summary LIMA LOYD :1965 Visit Date:08/18/2023 Ambulatory Visit Instructions Your Diagnosis Kidney stone BPH with urinary obstruction ED (erectile dysfunction) History of prostatitis Tests Performed Urnls Dip Stick Auto w/o Microscopy POC 87996 Your Care Team Attending Physician - Patito [...] Urnls Dip Stick Auto w/o Microscopy POC 99762 (08/18/2023) Bilirubin Urine Dipstick - Negative Blood Urine Dipstick - Negative Glucose Urine Dipstick - Negative Ketones Urine Dipstick - Negative Leukocytes Urine Dipstick - Negative Nitrite Urine Dipstick - Negative Protein Urine Dipstick - Negative Specific [place] Urine Dipstick - 1.010 Urine Appearance Urine [...] you for choosing us for your care. Normal [facility] Urology Office/Clinic Noteon 08-18-2023 Urology Office/Clinic Note [...] SE of dry mouth. Cysto 07/11/23 - gdktghac-vh-umajgf bilobar hypertrophy, near kissing lateral lobes, 1+ [...] to g (more content not included)... Normal [facility] Comment on above: Result Comment: Elec tronically Signed By: Kee NAVARRO, Patito Good\.br\Date and Time Signed: 08/18/23 18:11 EDT\.br\Electronically Co-Signed By: Namita Alexander\.br\Date and Time Co-Signed: 08/18/23 11:08 EDT Lab Reportson 08-16-2023 Lab Reports [id number]#1.00TIFF Normal [facility] Alanine aminotransferase [En zymatic activity/volume] in Serum or PlasmaOrdered By: Gaurav Higuera on 08-15-2023 ALT [Catalytic activity/Vol] 17 U/L 7-52 [facility] Albumin [Mass/volume] in Ser um or Plasma by Bromocresol green (BCG) dye binding methoOrdered By: Gaurav Higuera on 08-15-2023 Albumin BCG dye [Mass/Vol] 4.2 g/dL 3.5-5.7 [facility] Alkaline phosphatase [Enzyma tic activity/volume] in Serum or PlasmaOrdered By: Gaurav Higuera on 08-15-2023 ALP [Catalytic activity/Vol] 47 U/L 34-104 [facility] Aspartate aminotransferase [ Enzymatic activity/volume] in Serum or PlasmaOrdered By: Gaurav Higuera on 08-15-2023 AST [Catalytic activity/Vol] 13 U/L 13-39 [facility] Basophils Auto (Bld) [#/Vol] Ordered By: Gaurav Higuera on 08-15-2023 Basophils (Bld) [#/Vol] 0.1 10*3/uL 0.0-0.2 [facility] Basophils/100 WBC Auto (Bld) Ordered By: Gaurav Higuera on 08-15-2023 Basophils/100 WBC (Bld) 0.8 % . [facility] Bilirubin.total [Mass/volume ] in Serum or PlasmaOrdered By: Gaurav Higuera on 08-15-2023 Bilirubin [Mass/Vol] 0.4 mg/dL 0.3-1.0 [facility] Calcium [Mass/volume] in Ser um or PlasmaOrdered By: Gaurav Higuera on 08-15-2023 Calcium [Mass/Vol] 8.6 mg/dL 8.6-10.3 [facility] Carbon dioxide, total [Moles /volume] in Serum or PlasmaOrdered By: Gaurav Higuera on 08-15-2023 CO2 [Moles/Vol] 23.6 mmol/L 21.0-31.0 [facility] Chloride [Moles/volume] in S lilli or PlasmaOrdered By: Gaurav Higuera on 08-15-2023 Chloride [Moles/Vol] 108 mmol/L 98-107 [facility] Creatinine [Mass/volume] in Serum or PlasmaOrdered By: Gaurav Higuera on 08-15-2023 Creatinine [Mass/Vol] 1.50 mg/dL 0.70-1.30 [facility] Eosinophils Auto (Bld) [#/Vo l]Ordered By: Gaurav Higeura on 08-15-2023 Eosinophils (Bld) [#/Vol] 0.2 10*3/uL 0.0-0.45 [facility] Eosinophils/100 WBC Auto (Bl d)Ordered By: Gaurav Higuera on 08-15-2023 Eosinophils/100 WBC (Bld) 2.5 % . [facility] Erythrocyte distribution wid th Auto (RBC) [Ratio]Ordered By: Gaurav Higuera on 08-15-2023 Erythrocyte distribution width (RBC) [Ratio] 15.4 % 12.0-14.8 [facility] Globulin Calc (S) [Mass/Vol] Ordered By: Gaurav Higuera on 08-15-2023 Globulin (S) [Mass/Vol] 2.3 g/dL [facility] Glucose [Mass/volume] in Ser um or PlasmaOrdered By: Gaurav Higuera on 08-15-2023 Glucose [Mass/Vol] 120 mg/dL 70-100 [facility] Comment on above: ADA recommended refe rence range Glucose mean value [Mass/vol ume] in Blood Estimated from glycated hemoglobinOrdered By: Gaurav Higuera on 08-15-2023 Average glucose Estimated from glycated hemoglobin (Bld) [Mass/Vol] 134 mg/dL [facility] Hematocrit Auto (Bld) [Volum e fraction]Ordered By: Gaurav Higuera on 08-15-2023 Hematocrit (Bld) [Volume fraction] 40.0 % 38.8-50.0 [facility] Hemoglobin [Mass/volume] in BloodOrdered By: Gaurav Higuera on 08-15-2023 Hemoglobin (Bld) [Mass/Vol] 13.4 g/dL 13.0-17.0 [facility] Laboratory - Hematology and Cell countsOrdered By: Gaurav Higuera on 08-15-2023 HbA1c (Bld) [Mass fraction] 6.3 % 4.3-5.6 [facility] Comment on above: Increased risk for d iabetes: 5.7 - 6.4diabetes: >6.4glycemic control for adults with diabetes: <7.0 Leukocytes [#/volume] correc tremaine for nucleated erythrocytes in Blood by Automated counOrdered By: Gaurav Higuera on 08-15-2023 WBC corrected for nucl RBC Auto (Bld) [#/Vol] 6.6 10*3/uL 4.1-10.5 [facility] Lymphocytes Auto (Bld) [#/Vo l]Ordered By: Gaurav Higuera on 08-15-2023 Lymphocytes (Bld) [#/Vol] 2.0 10*3/uL 1.00-4.8 [facility] Lymphocytes/100 WBC Auto (Bl d)Ordered By: Gaurav Higuera on 08-15-2023 Lymphocytes/100 WBC (Bld) 30.2 % . [facility] MCH Auto (RBC) [Entitic mass ]Ordered By: Gaurav Higuera on 08-15-2023 MCH (RBC) [Entitic mass] 26.0 pg 27.5-35.2 [facility] MCHC Auto (RBC) [Mass/Vol]Or dered By: Gaurav Higuera on 08-15-2023 MCHC (RBC) [Mass/Vol] 33.5 g/dL 32.5-35.6 [facility] MCV Auto (RBC) [Entitic vol] Ordered By: Gaurav Higuera on 08-15-2023 MCV (RBC) [Entitic vol] 77.7 fL 83.5-101 [facility] Monocytes Auto (Bld) [#/Vol] Ordered By: Gaurav Higuera on 08-15-2023 Monocytes (Bld) [#/Vol] 0.7 10*3/uL 0.0-0.8 [facility] Monocytes/100 WBC Auto (Bld) Ordered By: Gaurav Higuera on 08-15-2023 Monocytes/100 WBC (Bld) 10.3 % . [facility] Neutrophils Auto (Bld) [#/Vo l]Ordered By: Gaurav Higuera on 08-15-2023 Neutrophils (Bld) [#/Vol] 3.7 10*3/uL 1.8-7.7 [facility] Neutrophils/100 WBC Auto (Bl d)Ordered By: Gaurav Higuera on 08-15-2023 Neutrophils/100 WBC (Bld) 56.2 % . [facility] No Panel InformationOrdered By: Gaurav Higuera on 08-15-2023 Estimated GFR (CKD-EPI) 53.298 mL/Min [facility]acy Creatinine Clearance (Chem N/A [facility] Nucleated erythrocytes [Pres ence] in Blood by Automated countOrdered By: Gaurav Higuera on 08-15-2023 Nucleated RBC Auto Ql (Bld) 0.1 /100{WBC} 0-0.5 [facility] Platelet mean volume Auto (B ld) [Entitic vol]Ordered By: Gaurav Higuera on 08-15-2023 Platelet mean volume (Bld) [Entitic vol] 7.2 fL 6.6-10.1 [facility] Platelets Auto (Bld) [#/Vol] Ordered By: Gaurav Higuera on 08-15-2023 Platelets (Bld) [#/Vol] 220 10*3/uL 150-450 [facility] Potassium [Moles/volume] in Serum or PlasmaOrdered By: Gaurav Higuera on 08-15-2023 Potassium [Moles/Vol] 4.3 mmol/L 3.5-5.1 [facility] Protein [Mass/volume] in Ser um or PlasmaOrdered By: Gaurav Higuera on 08-15-2023 Protein [Mass/Vol] 6.5 g/dL 6.4-8.9 [facility] RBC Auto (Bld) [#/Vol]Ordere d By: Gaurav Higuera on 08-15-2023 RBC (Bld) [#/Vol] 5.14 10*6/uL 3.90-5.60 [facility] Serum or plasma albumin/glob ulin mass ratioOrdered By: Gaurav Higuera on 08-15-2023 Albumin/Globulin [Mass ratio] 1.8 {ratio} [facility] Serum or plasma anion gap de terminationOrdered By: Gaurav Higuera on 08-15-2023 Anion gap [Moles/Vol] 10.7 mmol/L 6.0-15.0 [facility] Sodium [Moles/volume] in Ser um or PlasmaOrdered By: Gaurav Higuera on 08-15-2023 Sodium [Moles/Vol] 138 mmol/L 136-145 [facility] Urea nitrogen [Mass/volume] in Serum or PlasmaOrdered By: Gaurav Higuera on 08-15-2023 Urea nitrogen [Mass/Vol] 15 mg/dL 7-25 [facility] WBC Auto (Bld) [#/Vol]Ordere d By: Gaurav Higuera on 08-15-2023 WBC (Bld) [#/Vol] 6.6 10*3/uL 4.1-10.5 [facility] Urology Office/Clinic Noteon 07-16-2023 Urology Office/Clinic Note Chief Complaint Pt is here for PO cystoscopy complications HPI Staff Lima is a 57 y.o. male here for PO cystoscopy complications. Previous Dx: BPH w/ urinary obstruction, ED, gross hematuria, kidney stone, renal cyst, renal hematoma, UTI. S/P cystoscopy done on 07/11/23, Laser lithotripsy done on 2/14/23, ESWL done on 08/23/22. KUB done on [...] SE of dry mouth. Cysto 07/11/23 - [id number] bilobar hypertrophy, near kissing lateral lobes, 1% [...] 40 minutes. Follow-up With When Contact Information HEIDY HAMMOND, JANINE Chavez, URL [address] [place] [address] Additional Instructions: follow up with KML sched already Patient Education Prostatitis I, Namita Alexander, personally scribed for Janine Garcia PA-C on 07/13/2023 11:00:30. . Documentation recorded by the scribkathy Alexander accurately reflects the services(s) I performed and decisions made by me. Authentic (more content not included)... Normal [facility] Comment on above: Result Comment: Elec tronically Signed By: JANINE GARCIA PA-C\.br\Date and Time Signed: 07/16/23 22:54 EDT\.br\Electronically Co-Signed By: Namita Alexander\.br\Date and Time Co-Signed: 07/13/23 11:00 EDT Ambulatory Visit Summaryon 0 07-13-2023 Ambulatory Visit Summary LIMA LOYD :1965 Visit Date:07/13/2023 Ambulatory Visit Instructions Your Diagnosis BPH with urinary obstruction Kidney stone ED (erectile dysfunction) Prostatitis Tests Performed Urnls Dip Stick Auto w/o Microscopy POC 31492 Your Care Team Attending Physician - JANINE [...] Patito Sweet MD Where: [facility] Patient Educationon 07-13-20 23 Patient Education Infectious Disease Prostatitis Prostatitis is [...] these instructions at home: Medicines ? Take ilro-tfg-dlkhoxw and prescription medicines only as told by [...] Where to find more information ? National [employer] of Diabetes and Digestive and Kidney Diseases: (more content not included)... [facility] Operative Reporton Operative Report [id number]#1.00CD:127 [facility] Reminderson 07-12-2023 Reminders - From: Namita Alexander To: TEAGAN - Recalls Lukathy; Sent: 06/02/2023 16:19:22 EDT Show up: 06/30/2023 16:19:00 EDT Subject: Reminder Message Due Date/Time: 07/07/2023 16:19:00 EDT Pt needs KUB and CHANTEL prior to cysto on 07/11/23. Pt still needs the CHANTEL scheduled. Pt prefers [facility]. left vm for patient to call the office to see if he had testing done CHANTEL/KUB done and reviewed. Normal [facility] RAD - Ultrasound Reporton RAD - Ultrasound Report [id number]#1.00CD:127 [facility] RAD - MISCon 07-10-2023 RAD - MISC [id number]#1.00CD:127 [facility] Insurance Correspondenceon 0 06-13-2023 Insurance Correspondence [id number]#1.00CD:127 Normal [facility] Screenson 06-01-2023 Screens [id number]#1.00CD:127 Normal [facility] Screens [id number]#1.00CD:127 Normal [facility] Urology Office/Clinic Noteon 06-01-2023 Urology Office/Clinic Note [...] scan -Cont Cialis as indigestion allows Ordered: 09467 Measure Post Void residual urine and/or bladder [...] a k (more content not included)... Normal [facility] Comment on above: Result Comment: Elec tronically Signed By: Kee NAVARRO, Patito Good\.br\Date and Time Signed: 06/01/23 10:44 EDT Patient [...] Follow these instructions at home: ? Take ybbj-gsa-jswqerv and prescription medicines only as told by [...] the medicine (more content not included)... Normal [facility] Alanine aminotransferase [En zymatic activity/volume] in Serum or PlasmaOrdered By: Gaurav Higuera on 03-31-2023 ALT [Catalytic activity/Vol] 16 U/L [facility] Albumin [Mass/volume] in Ser um or Plasma by Bromocresol green (BCG) dye binding methoOrdered By: Gaurav Higuera on 03-31-2023 Albumin BCG dye [Mass/Vol] 4.4 g/dL 3.5-5.7 [facility] Alkaline phosphatase [Enzyma tic activity/volume] in Serum or PlasmaOrdered By: Gaurav Higuera on 03-31-2023 ALP [Catalytic activity/Vol] 56 U/L 34-104 [facility] Aspartate aminotransferase [ Enzymatic activity/volume] in Serum or PlasmaOrdered By: Gaurav Higuera on 03-31-2023 AST [Catalytic activity/Vol] 12 U/L 13-39 [facility] Basophils Auto (Bld) [#/Vol] Ordered By: Gaurav Higuera on 03-31-2023 Basophils (Bld) [#/Vol] 0.0 10*3/uL 0.0-0.2 [facility] Basophils/100 WBC Auto (Bld) Ordered By: Gaurav Higuera on 03-31-2023 Basophils/100 WBC (Bld) 0.3 % . [facility] Bilirubin.total [Mass/volume ] in Serum or PlasmaOrdered By: Gaurav Higuera on 03-31-2023 Bilirubin [Mass/Vol] 0.7 mg/dL 0.3-1.0 [facility] Calcium [Mass/volume] in Ser um or PlasmaOrdered By: Gaurav Higuera on 03-31-2023 Calcium [Mass/Vol] 8.8 mg/dL 8.6-10.3 [facility] Carbon dioxide, total [Moles /volume] in Serum or PlasmaOrdered By: Gaurav Higuera on 03-31-2023 CO2 [Moles/Vol] 26.7 mmol/L 21.0-31.0 [facility] Chloride [Moles/volume] in S lilli or PlasmaOrdered By: Gaurav Higuera on 03-31-2023 Chloride [Moles/Vol] 106 mmol/L 98-107 [facility] Creatinine [Mass/volume] in Serum or PlasmaOrdered By: Gaurav Higuera on 03-31-2023 Creatinine [Mass/Vol] 1.24 mg/dL 0.70-1.30 [facility] Eosinophils Auto (Bld) [#/Vo l]Ordered By: Gaurav Higuera on 06-16-2023 Eosinophils (Bld) [#/Vol] 0.1 10*3/uL 0.0-0.45 [facility] Eosinophils/100 WBC Auto (Bl d)Ordered By: Gaurav Higuera on 03-31-2023 Eosinophils/100 WBC (Bld) 1.0 % . [facility] Erythrocyte distribution wid th Auto (RBC) [Ratio]Ordered By: Gaurav Higuera on 03-31-2023 Erythrocyte distribution width (RBC) [Ratio] 16.1 % 12.0-14.8 [facility] Globulin Calc (S) [Mass/Vol] Ordered By: Gaurav Higuera on 03-31-2023 Globulin (S) [Mass/Vol] 2.1 g/dL [facility] Glucose [Mass/volume] in Ser um or PlasmaOrdered By: Guarav Higuera on 03-31-2023 Glucose [Mass/Vol] 105 mg/dL 70-100 [facility] Comment on above: ADA recommended refe rence range Glucose mean value [Mass/vol ume] in Blood Estimated from glycated hemoglobinOrdered By: Gaurav Higuera on 03-31-2023 Average glucose Estimated from glycated hemoglobin (Bld) [Mass/Vol] 151 mg/dL [facility] Hematocrit Auto (Bld) [Volum e fraction]Ordered By: Gaurav Higuera on 03-31-2023 Hematocrit (Bld) [Volume fraction] 41.1 % 38.8-50.0 [facility] Hemoglobin [Mass/volume] in BloodOrdered By: Gaurav Higuera on 03-31-2023 Hemoglobin (Bld) [Mass/Vol] 13.8 g/dL 13.0-17.0 [facility] Laboratory - Hematology and Cell countsOrdered By: Gaurav Higuera on 03-31-2023 HbA1c (Bld) [Mass fraction] 6.9 % 4.3-5.6 [facility] Comment on above: Increased risk for d iabetes: 5.7 - 6.4diabetes: >6.4glycemic control for adults with diabetes: <7.0 Leukocytes [#/volume] correc tremaine for nucleated erythrocytes in Blood by Automated counOrdered By: Gaurav Higuera on 03-31-2023 WBC corrected for nucl RBC Auto (Bld) [#/Vol] 9.6 10*3/uL 4.1-10.5 [facility] Lymphocytes Auto (Bld) [#/Vo l]Ordered By: Gaurav Higuera on 03-31-2023 Lymphocytes (Bld) [#/Vol] 2.1 10*3/uL 1.00-4.8 [facility] Lymphocytes/100 WBC Auto (Bl d)Ordered By: Gaurav Higuera on 03-31-2023 Lymphocytes/100 WBC (Bld) 21.5 % . [facility] MCH Auto (RBC) [Entitic mass ]Ordered By: Gaurav Higuera on 03-31-2023 MCH (RBC) [Entitic mass] 26.3 pg 27.5-35.2 [facility] MCHC Auto (RBC) [Mass/Vol]Or dered By: Gaurav Higuera on 03-31-2023 MCHC (RBC) [Mass/Vol] 33.6 g/dL 32.5-35.6 [facility] MCV Auto (RBC) [Entitic vol] Ordered By: Gaurav Higuera on 03-31-2023 MCV (RBC) [Entitic vol] 78.2 fL 83.5-101 [facility] Monocytes Auto (Bld) [#/Vol] Ordered By: Gaurav Higuera on 03-31-2023 Monocytes (Bld) [#/Vol] 0.7 10*3/uL 0.0-0.8 [facility] Monocytes/100 WBC Auto (Bld) Ordered By: Gaurav Higuera on 03-31-2023 Monocytes/100 WBC (Bld) 7.2 % . [facility] Neutrophils Auto (Bld) [#/Vo l]Ordered By: Gaurav Higuera on 03-31-2023 Neutrophils (Bld) [#/Vol] 6.7 10*3/uL 1.8-7.7 [facility] Neutrophils/100 WBC Auto (Bl d)Ordered By: Gaurav Higuera on 03-31-2023 Neutrophils/100 WBC (Bld) 70.0 % . [facility] No Panel InformationOrdered By: Gaurav Higuera on 03-31-2023 Estimated GFR (CKD-EPI) > 60.0 mL/Min [facility] Creatinine Clearance (Chem N/A [facility] Nucleated erythrocytes [Pres ence] in Blood by Automated countOrdered By: Gaurav Higuera on 03-31-2023 Nucleated RBC Auto Ql (Bld) 0.1 /100{WBC} 0-0.5 [facility] Platelet mean volume Auto (B ld) [Entitic vol]Ordered By: Gaurav Higuera on 03-31-2023 Platelet mean volume (Bld) [Entitic vol] 7.0 fL 6.6-10.1 [facility] Platelets Auto (Bld) [#/Vol] Ordered By: Gaurav Higuera on 03-31-2023 Platelets (Bld) [#/Vol] 195 10*3/uL 150-450 [facility] Potassium [Moles/volume] in Serum or PlasmaOrdered By: Gaurav Higuera on 03-31-2023 Potassium [Moles/Vol] 4.2 mmol/L 3.5-5.1 [facility] Prostate specific Ag [Mass/v olume] in Serum or PlasmaOrdered By: Patito Sweet on 03-31-2023 Prostate specific Ag [Mass/Vol] 0.650 ng/mL 0.000-4.00 0 [facility] Protein [Mass/volume] in Ser um or PlasmaOrdered By: Gaurav Higuera on 03-31-2023 Protein [Mass/Vol] 6.5 g/dL 6.4-8.9 [facility] RBC Auto (Bld) [#/Vol]Ordere d By: Gaurav Higuera on 03-31-2023 RBC (Bld) [#/Vol] 5.25 10*6/uL 3.90-5.60 [facility] Serum or plasma albumin/glob ulin mass ratioOrdered By: Gaurav Higuera on 03-31-2023 Albumin/Globulin [Mass ratio] 2.1 {ratio} [facility] Serum or plasma anion gap de terminationOrdered By: Gaurav Higuera on 03-31-2023 Anion gap [Moles/Vol] 11.5 mmol/L 6.0-15.0 [facility] Sodium [Moles/volume] in Ser um or PlasmaOrdered By: Gaurav Higuera on 03-31-2023 Sodium [Moles/Vol] 140 mmol/L 136-145 [facility] Urate [Mass/volume] in Serum or PlasmaOrdered By: Patito Sweet on 03-31-2023 Urate [Mass/Vol] 7.9 mg/dL 4.4-7.6 [facility] Urea nitrogen [Mass/volume] in Serum or PlasmaOrdered By: Gaurav Higuera on 03-31-2023 Urea nitrogen [Mass/Vol] 17 mg/dL 7-25 [facility] WBC Auto (Bld) [#/Vol]Ordere d By: Gaurav Higuera on 03-31-2023 WBC (Bld) [#/Vol] 9.6 10*3/uL 4.1-10.5 [facility] Alanine aminotransferase [En zymatic activity/volume] in Serum or PlasmaOrdered By: Gaurav Higuera on 02-28-2023 ALT [Catalytic activity/Vol] 11 U/L 7-52 [facility] Albumin [Mass/volume] in Ser um or Plasma by Bromocresol green (BCG) dye binding methoOrdered By: Gaurav Higuera on 02-28-2023 Albumin BCG dye [Mass/Vol] 4.1 g/dL 3.5-5.7 [facility] Alkaline phosphatase [Enzyma tic activity/volume] in Serum or PlasmaOrdered By: Gaurav Higuera on 02-28-2023 ALP [Catalytic activity/Vol] 55 U/L 34-104 [facility] Aspartate aminotransferase [ Enzymatic activity/volume] in Serum or PlasmaOrdered By: Gaurav Higuera on 02-28-2023 AST [Catalytic activity/Vol] 8 U/L 13-39 [facility] Basophils Auto (Bld) [#/Vol] Ordered By: Gaurav Higuera on 02-28-2023 Basophils (Bld) [#/Vol] 0.0 10*3/uL 0.0-0.2 [facility] Basophils/100 WBC Auto (Bld) Ordered By: Gaurav Higuera on 02-28-2023 Basophils/100 WBC (Bld) 0.6 % . [facility] Bilirubin.total [Mass/volume ] in Serum or PlasmaOrdered By: Gaurav Higuera on 02-28-2023 Bilirubin [Mass/Vol] 0.3 mg/dL 0.3-1.0 [facility] Calcium [Mass/volume] in Ser um or PlasmaOrdered By: Gaurav Higuera on 02-28-2023 Calcium [Mass/Vol] 8.5 mg/dL 8.6-10.3 [facility] Carbon dioxide, total [Moles /volume] in Serum or PlasmaOrdered By: Gaurav Higuera on 02-28-2023 CO2 [Moles/Vol] 25.3 mmol/L 21.0-31.0 [facility] Chloride [Moles/volume] in S lilli or PlasmaOrdered By: Gaurav Higuera on 02-28-2023 Chloride [Moles/Vol] 109 mmol/L 98-107 [facility] Creatinine [Mass/volume] in Serum or PlasmaOrdered By: Gaurav Higuera on 02-28-2023 Creatinine [Mass/Vol] 1.24 mg/dL 0.70-1.30 [facility] Eosinophils Auto (Bld) [#/Vo l]Ordered By: Gaurav Higuera on 02-28-2023 Eosinophils (Bld) [#/Vol] 0.1 10*3/uL 0.0-0.45 [facility] Eosinophils/100 WBC Auto (Bl d)Ordered By: Gaurav Higuera on 02-28-2023 Eosinophils/100 WBC (Bld) 1.0 % . [facility] Erythrocyte distribution wid th Auto (RBC) [Ratio]Ordered By: Gaurav Higuera on 02-28-2023 Erythrocyte distribution width (RBC) [Ratio] 16.8 % 12.0-14.8 [facility] Globulin Calc (S) [Mass/Vol] Ordered By: Gaurav Higuera on 02-28-2023 Globulin (S) [Mass/Vol] 2.4 g/dL [facility] Glucose [Mass/volume] in Ser um or PlasmaOrdered By: Gaurav Higuera on 02-28-2023 Glucose [Mass/Vol] 131 mg/dL 70-100 [facility] Comment on above: ADA recommended refe rence range Glucose mean value [Mass/vol ume] in Blood Estimated from glycated hemoglobinOrdered By: Gaurav Higuera on 02-28-2023 Average glucose Estimated from glycated hemoglobin (Bld) [Mass/Vol] 143 mg/dL [facility] Hematocrit Auto (Bld) [Volum e fraction]Ordered By: Gaurav Higuera on 02-28-2023 Hematocrit (Bld) [Volume fraction] 41.1 % 38.8-50.0 [facility] Hemoglobin [Mass/volume] in BloodOrdered By: Gaurav Higuera on 02-28-2023 Hemoglobin (Bld) [Mass/Vol] 13.3 g/dL 13.0-17.0 [facility] Laboratory - Hematology and Cell countsOrdered By: Gaurav Higuera on 02-28-2023 HbA1c (Bld) [Mass fraction] 6.6 % 4.3-5.6 [facility] Comment on above: Increased risk for d iabetes: 5.7 - 6.4diabetes: >6.4glycemic control for adults with diabetes: <7.0 Leukocytes [#/volume] correc tremaine for nucleated erythrocytes in Blood by Automated counOrdered By: Gaurav Higuera on 02-28-2023 WBC corrected for nucl RBC Auto (Bld) [#/Vol] 8.4 10*3/uL 4.1-10.5 [facility] Lymphocytes Auto (Bld) [#/Vo l]Ordered By: Gaurav Higuera on 02-28-2023 Lymphocytes (Bld) [#/Vol] 2.3 10*3/uL 1.00-4.8 [facility] Lymphocytes/100 WBC Auto (Bl d)Ordered By: Gaurav Higuera on 02-28-2023 Lymphocytes/100 WBC (Bld) 27.0 % . [facility] MCH Auto (RBC) [Entitic mass ]Ordered By: Gaurav Higuera on 02-28-2023 MCH (RBC) [Entitic mass] 24.8 pg 27.5-35.2 [facility] MCHC Auto (RBC) [Mass/Vol]Or dered By: Gaurav Higuera on 02-28-2023 MCHC (RBC) [Mass/Vol] 32.4 g/dL 32.5-35.6 [facility] MCV Auto (RBC) [Entitic vol] Ordered By: Gaurav Higuera on 02-28-2023 MCV (RBC) [Entitic vol] 76.7 fL 83.5-101 [facility] Monocytes Auto (Bld) [#/Vol] Ordered By: Gaurav Higuera on 02-28-2023 Monocytes (Bld) [#/Vol] 0.9 10*3/uL 0.0-0.8 [facility] Monocytes/100 WBC Auto (Bld) Ordered By: Gaurav Higuera on 02-28-2023 Monocytes/100 WBC (Bld) 10.1 % . [facility] Neutrophils Auto (Bld) [#/Vo l]Ordered By: Gaurav Higuera on 02-28-2023 Neutrophils (Bld) [#/Vol] 5.2 10*3/uL 1.8-7.7 [facility] Neutrophils/100 WBC Auto (Bl d)Ordered By: Gaurav Higuera on 02-28-2023 Neutrophils/100 WBC (Bld) 61.3 % . [facility] No Panel InformationOrdered By: Gaurav Higuera on 02-28-2023 Estimated GFR (CKD-EPI) > 60.0 mL/Min [facility] Creatinine Clearance (Chem N/A [facility] Nucleated erythrocytes [Pres ence] in Blood by Automated countOrdered By: Gaurav Higuera on 02-28-2023 Nucleated RBC Auto Ql (Bld) 0.1 /100{WBC} 0-0.5 [facility] Platelet mean volume Auto (B ld) [Entitic vol]Ordered By: Gaurav Higuera on 02-28-2023 Platelet mean volume (Bld) [Entitic vol] 7.2 fL 6.6-10.1 [facility] Platelets Auto (Bld) [#/Vol] Ordered By: Gaurav Higuera on 02-28-2023 Platelets (Bld) [#/Vol] 239 10*3/uL 150-450 [facility] Potassium [Moles/volume] in Serum or PlasmaOrdered By: Gaurav Higuera on 02-28-2023 Potassium [Moles/Vol] 3.9 mmol/L 3.5-5.1 [facility] Protein [Mass/volume] in Ser um or PlasmaOrdered By: Gaurav Higuera on 02-28-2023 Protein [Mass/Vol] 6.5 g/dL 6.4-8.9 [facility] RBC Auto (Bld) [#/Vol]Ordere d By: Gaurav Higuera on 02-28-2023 RBC (Bld) [#/Vol] 5.36 10*6/uL 3.90-5.60 [facility] Serum or plasma albumin/glob ulin mass ratioOrdered By: aGurav Higuera on 02-28-2023 Albumin/Globulin [Mass ratio] 1.7 {ratio} [facility] Serum or plasma anion gap de terminationOrdered By: Gaurav Higuera on 02-28-2023 Anion gap [Moles/Vol] 9.6 mmol/L 6.0-15.0 [facility] Sodium [Moles/volume] in Ser um or PlasmaOrdered By: Gaurav Higuera on 02-28-2023 Sodium [Moles/Vol] 140 mmol/L 136-145 [facility] Urea nitrogen [Mass/volume] in Serum or PlasmaOrdered By: Gaurav Higuera on 02-28-2023 Urea nitrogen [Mass/Vol] 12 mg/dL 7-25 [facility] WBC Auto (Bld) [#/Vol]Ordere d By: Gaurav Higuera on 02-28-2023 WBC (Bld) [#/Vol] 8.4 10*3/uL 4.1-10.5 [facility] CALCULI, URINARYon 3 2,8 Dihydroxyadenine Normal [facility] Comment on above: Performed By: #### C ALCULI #### [facility] [address] [address] [address] Peter Kyle Ammonium Acid Urate Normal [facility] Comment on above: Performed By: #### C ALCULI #### [facility] [address] [address] [address] Peter Kyle Bilirubin Ql (U) Normal [facility] Comment on above: Performed By: #### C ALCULI #### [facility] [address] [address] [address] Peter Kyle Ca Oxalate Dihydrate 30 % Normal [facility] Comment on above: Performed By: #### C ALCULI #### [facility] [address] [address] [address] Peter Kyle CaHPO4 (Brushite) Normal [facility] Comment on above: Performed By: #### C ALCULI #### [facility] [address] [address] [address] Peter Kyle Calcium Bilirubinate Normal [facility] Comment on above: Performed By: #### C ALCULI #### [facility] [address] [address] [address] Peter Kyle Calcium Carbonate [facility] Comment on above: Performed By: #### C ALCULI #### [facility] [address] [address] [address] Peter Kyle Calcium Oxalate Monohydrate 70 % [facility] Comment on above: Performed By: #### C ALCULI #### [facility] [address] [address] [address] Peter Kyle Calcium Palmitate Normal [facility] Comment on above: Performed By: #### C ALCULI #### [facility] [address] [address] [address] Peter Kyle Calcium Phosphate Normal [facility] Comment on above: Performed By: #### C ALCULI #### [facility] [address] [address] [address] Peter Kyle Calcium Stearate Normal [facility] Comment on above: Performed By: #### C ALCULI #### [facility] [address] [address] [address] Peter Kyle Carbonate Apatite [place] [facility] Comment on above: Performed By: #### C ALCULI #### [facility] [address] [address] [address] Peter Kyle Cellular Material Normal [facility] Comment on above: Performed By: #### C ALCULI #### [facility] [address] [address] [address] Peter Kyle Cholesterol [facility] Comment on above: Performed By: #### C ALCULI #### [facility] [address] [address] [address] Peter Kyle Color (U) Brown [facility] Comment on above: Performed By: #### C ALCULI #### [facility] [address] [address] [address] Peter Kyle Comment [facility] Comment on above: Performed By: #### C ALCULI #### [facility] [address] [address] [address] Peter Kyle Comment Comment [facility] Comment on above: Result Comment: Calc ulus received wet. Wet calculi must be dried before analysis, which delays reporting of results. Leaving calculi wet (such as water, saline, blood, urine) may lead to changes in composition. Performed By: #### C ALCULI #### [facility] [address] [place] [address] Dr. Peter Kyle Comment: Comment Normal [facility] Comment on above: Result Comment: Tone richardson questions regarding Calculi Analysis contact [facility] at: [phone]. Performed By: #### C ALCULI #### [facility] [address] [place] [address] Dr. Peter Kyle Composition Comment [facility] Comment on above: Result Comment: Perc entage (Represents the % composition) Performed By: #### C ALCULI #### [facility] [address] [place] [address] Dr. Peter Kyle Cystine [facility] Comment on above: Performed By: #### C ALCULI #### [facility] [address] [address] [address] Peter Kyle Disclaimer: Comment [facility] Comment on above: Result Comment: This test was developed and its performance characteristics determined by [facility]. It has not been cleared or approved by the Food and Drug Administration. Performed By: #### C ALCULI #### [facility] [address] [place] [address] Dr. Peter Kyle Dried Blood Normal [facility] Comment on above: Performed By: #### C ALCULI #### [facility] [address] [address] [address] Peter Kyle Drug or Metabolite Normal [facility] Comment on above: Performed By: #### C ALCULI #### [facility] [address] [address] [address] Peter Kyle Hydroxyapatite Normal [facility] Comment on above: Performed By: #### C ALCULI #### [facility] [address] [address] [address] Peter Kyle Mg NH4 PO4 (Struvite) [facility] Comment on above: Performed By: #### C ALCULI #### [facility] [address] [place] [address] Dr. Peter Kyle MgHPO4 (Newberyite) Normal [facility] Comment on above: Performed By: #### C ALCULI #### [facility] [address] [address] [address] Peter Kyle Other component(s) Normal [facility] Comment on above: Performed By: #### C ALCULI #### [facility] [address] [address] [address] Peter Kyle PDF . Normal [facility] Comment on above: Performed By: #### C ALCULI #### [facility] [address] [address] [address] Peter Kyle Photo Comment Normal [facility] Comment on above: Result Comment: Phot ograph will follow under a separate cover Performed By: #### C ALCULI #### [facility] [address] [address] [address] Peter Kyle Please note: Comment Normal [facility] Comment on above: Result Comment: Calc melita report will follow via computer, mail or sterile products processor delivery. Performed By: #### C ALCULI #### [facility] [address] [place] [address] Dr. Peter Kyle Size 3x5 Normal [facility] Comment on above: Result Comment: Mult iple pieces received. Dimensions of the largest piece reported. Performed By: #### C ALCULI #### [facility] [address] [address] [address] Peter Kyle Sodium Acid Urate Normal [facility] Comment on above: Performed By: #### C ALCULI #### [facility] [address] [address] [address] Peter Kyle Source Comment [facility] Comment on above: Result Comment: Left Kidney Performed By: #### C ALCULI #### [facility] [address] [address] [address] Peter Kyle Triamterene [facility] Comment on above: Performed By: #### C ALCULI #### [facility] [address] [address] [address] Peter Kyle Uric Acid [facility] Comment on above: Performed By: #### C ALCULI #### [facility] [address] [address] [address] Peter Kyle Uric Acid Dihydrate Normal [facility] Comment on above: Performed By: #### C ALCULI #### [facility] [address] [address] [address] Peter Kyle Weight 61 mg Normal [facility] Comment on above: Performed By: #### C ALCULI #### [facility] [address] [address] [address] Peter Kyle Xanthine [facility] Comment on above: Performed By: #### C ALCULI #### [facility] [address] [address] [address] Peter Kyle CALCULI, URINARYon 3 2,8 Dihydroxyadenine Normal [facility] Comment on above: Performed By: #### C BC #### [facility] [address] [address] [address] Peter Kyle Ammonium Acid Urate [facility] Comment on above: Performed By: #### C BC #### [facility] [address] [address] [address] Peter Kyle Bilirubin Ql (U) Normal [facility] Comment on above: Performed By: #### C BC #### [facility] [address] [address] [address] Peter Kyle Ca Oxalate Dihydrate 20 % Normal [facility] Comment on above: Performed By: #### C BC #### [facility] [address] [address] [address] Peter Kyle CaHPO4 (Brushite) Normal [facility] Comment on above: Performed By: #### C BC #### [facility] [address] [address] [address] Peter Kyle Calcium Bilirubinate Normal [facility] Comment on above: Performed By: #### C BC #### [facility] [address] [address] [address] Peter Kyle Calcium Carbonate Normal [facility] Comment on above: Performed By: #### C BC #### [facility] [address] [address] [address] Peter Kyle Calcium Oxalate Monohydrate 80 % [facility] Comment on above: Performed By: #### C BC #### [facility] [address] [address] [address] Peter Kyle Calcium Palmitate Normal [facility] Comment on above: Performed By: #### C BC #### [facility] [address] [place] [address] Dr. Peter Kyle Calcium Phosphate Normal [facility] Comment on above: Performed By: #### C BC #### [facility] [address] [address] [address] Peter Kyle Calcium Stearate Normal [facility] Comment on above: Performed By: #### C BC #### [facility] [address] [place] [address] Dr. Peter Kyle Carbonate Apatite Normal [facility] Comment on above: Performed By: #### C BC #### [facility] [address] [place] [address] Dr. Peter Kyle Cellular Material Normal [facility] Comment on above: Performed By: #### C BC #### [facility] [address] [address] [address] Peter Kyle Cholesterol [facility] Comment on above: Performed By: #### C BC #### [facility] [address] [address] [address] Peter Kyle Color (U) Brown Normal [facility] Comment on above: Performed By: #### C BC #### [facility] [address] [address] [address] Peter Kyle Comment Normal [facility] Comment on above: Performed By: #### C BC #### [facility] [address] [address] [address] Peter Kyle Comment: Comment Normal [facility] Comment on above: Result Comment: Tone richardson questions regarding Calculi Analysis [facility] at: [phone]. Performed By: #### C BC #### [facility] [address] [place] [address] Dr. Peter Kyle Composition Comment [facility] Comment on above: Result Comment: Perc entage (Represents the % composition) Performed By: #### C BC #### [facility] [address] [place] [address] Dr. Peter Kyle Cystine [facility] Comment on above: Performed By: #### C BC #### [facility] [address] [place] [address] Dr. Peter Kyle Disclaimer: Comment Normal [facility] Comment on above: Result Comment: This test was developed and its performance characteristics determined by [facility]. It has not been cleared or approved by the Food and Drug Administration. Performed By: #### C BC #### [facility] [address] [address] [address] Peter Kyle Dried Blood [facility] Comment on above: Performed By: #### C BC #### [facility] [address] [place] [address] Dr. Peter Kyle Drug or Metabolite Normal [facility] Comment on above: Performed By: #### C BC #### [facility] [address] [place] [address] Dr. Peter Kyle Hydroxyapatite Normal [facility] Comment on above: Performed By: #### C BC #### [facility] [address] [address] [address] Peter Kyle Mg NH4 PO4 (Struvite) [facility] Comment on above: Performed By: #### C BC #### [facility] [address] [address] [address] Peter Kyle MgHPO4 (Newberyite) Normal [facility] Comment on above: Performed By: #### C BC #### [facility] [address] [address] [address] Peter Kyle Other component(s) Normal [facility] Comment on above: Performed By: #### C BC #### [facility] [address] [place] [address] Dr. Peter Kyle PDF . Normal [facility] Comment on above: Performed By: #### C BC #### [facility] [address] [place] [address] Dr. Peter Kyle Photo Comment [facility] Comment on above: Result Comment: Phot ograph will follow under a separate cover Performed By: #### C BC #### [facility] [address] [place] [address] Dr. Peter Kyle Please note: Comment [facility] Comment on above: Result Comment: Calc melita report will follow via computer, mail or sterile products processor delivery. Performed By: #### C BC #### [facility] [address] [address] [address] Peter Kyle Size 5x7 [facility] Comment on above: Result Comment: Mult iple pieces received. Dimensions of the largest piece reported. Performed By: #### C BC #### [facility] [address] [address] [address] Peter Kyle Sodium Acid Urate Normal [facility] Comment on above: Performed By: #### C BC #### [facility] [address] [place] [address] Dr. Peter Kyle Source Comment [facility] Comment on above: Result Comment: Not provided Performed By: #### C BC #### [facility] [address] [place] [address] Dr. Peter Kyle Triamterene [facility] Comment on above: Performed By: #### C BC #### [facility] [address] [place] [address] Dr. Peter Kyle Uric Acid [facility] Comment on above: Performed By: #### C BC #### [facility] [address] [place] [address] Dr. Peter Kyle Uric Acid Dihydrate Normal [facility] Comment on above: Performed By: #### C BC #### [facility] [address] [place] [address] Dr. Peter Kyle Weight 138 mg [facility] Comment on above: Performed By: #### C BC #### [facility] [address] [place] [address] Dr. Peter Kyle Xanthine [facility] Comment on above: Performed By: #### C BC #### [facility] [address] [place] [address] Dr. Peter Kyle CBC AUTO DIFFon 12-30-2022 BASO # 0.1 103/ul Normal 0.0-0.1 [facility] Comment on above: Performed By: #### C BC #### [facility] [address] [place] [address] Dr. Peter Kyle Basophils/100 WBC (Bld) 0.8 % Normal 0.2-2.0 [facility] Comment on above: Performed By: #### C BC #### [facility] [address] [place] [address] Dr. Peter Kyle EO # 0.4 103/ul Normal 0.0-0.7 [facility] Comment on above: Performed By: #### C BC #### [facility] [address] [place] [address] Dr. Peter Kyle Eosinophils/100 WBC (Bld) 4.6 % Normal 0.9-7.0 [facility] Comment on above: Performed By: #### C BC #### [facility] [address] [address] [address] Peter Kyle Erythrocyte distribution width (RBC) [Ratio] 16.1 % Critically high 11.0-15.0 [facility] Comment on above: Performed By: #### C BC #### [facility] [address] [place] [address] Dr. Peter Kyle Hematocrit (Bld) [Volume fraction] 42.6 % Normal 42.0-54.0 [facility] Comment on above: Performed By: #### C BC #### [facility] [address] [place] [address] Dr. Peter Kyle Hemoglobin (Bld) [Mass/Vol] 13.9 g/dL Critically low 14.0-18.0 [facility] Comment on above: Performed By: #### C BC #### [facility] [address] [place] [address] Dr. Peter Kyle IG # 0.09 10e3/ul Critically high 0.00-0.03 [facility] Comment on above: Performed By: #### C BC #### [facility] [address] [place] [address] Dr. Peter Kyle IG % 1.2 % Critically high 0.0-0.5 [facility] Comment on above: Performed By: #### C BC #### [facility] [address] [place] [address] Dr. Peter Kyle LYMPH # 2.2 103/ul Normal 1.2-3.8 [facility] Comment on above: Performed By: #### C BC #### [facility] [address] [place] [address] Dr. Peter Kyle Lymphocytes/100 WBC (Bld) 27.5 % Normal 20.5-60.0 [facility] Comment on above: Performed By: #### C BC #### [facility] [address] [place] [address] Dr. Peter Kyle MANUAL DIFF REQ NO Normal [facility] Comment on above: Performed By: #### C BC #### [facility] [address] [place] [address] Dr. Peter Kyle MCH (RBC) [Entitic mass] 24.2 pg Critically low 25.9-34.0 [facility] Comment on above: Performed By: #### C BC #### [facility] [address] [place] [address] Dr. Peter Kyle MCHC (RBC) [Mass/Vol] 32.6 g/dL Normal 29.9-35.2 [facility] Comment on above: Performed By: #### C BC #### [facility] [address] [place] [address] Dr. Peter Kyle MCV (RBC) [Entitic vol] 74.1 fL Critically low 80.0-94.0 [facility] Comment on above: Performed By: #### C BC #### [facility] [address] [place] [address] Dr. Peter Kyle MONO # 0.8 103/ul Normal 0.3-0.8 [facility] Comment on above: Performed By: #### C BC #### [facility] [address] [place] [address] Dr. Peter Kyle Monocytes/100 WBC (Bld) 10.5 % Normal 1.7-12.0 [facility] Comment on above: Performed By: #### C BC #### [facility] [address] [place] [address] Dr. Peter Kyle NEUT # 4.3 103/ul Normal 1.4-6.5 [facility] Comment on above: Performed By: #### C BC #### [facility] [address] [place] [address] Dr. Peter Kyle Neutrophils/100 WBC (Bld) 55.4 % Normal 43.0-75.0 [facility] Comment on above: Performed By: #### C BC #### [facility] [address] [place] [address] Dr. Peter Kyle Platelet mean volume (Bld) [Entitic vol] 8.6 fL Critically low 9.5-13.5 [facility] Comment on above: Performed By: #### C BC #### [facility] [address] [address] [address] Peter Kyle PLT 214 103/ul Normal 150-450 [facility] Comment on above: Performed By: #### C BC #### [facility] [address] [address] [address] Peter Kyle RBC 5.75 106/ul Normal 4.70-6.10 [facility] Comment on above: Performed By: #### C BC #### [facility] [address] [address] [address] Peter Kyle WBC 7.8 103/ul Normal 4.0-11.0 [facility] Comment on above: Performed By: #### C BC #### [facility] [address] [place] [address] Dr. Peter Kyle PROF CHEM 8 (BAS METB)on Anion gap [Moles/Vol] 14.2 mmol/L Normal [facility] Comment on above: Performed By: #### B MP #### [facility] [address] [place] [address] Dr. Peter Kyle Calcium [Mass/Vol] 8.9 mg/dL Normal 8.5-10.1 [facility] Comment on above: Performed By: #### B MP #### [facility] [address] [place] [address] Dr. Peter Kyle Chloride [Moles/Vol] 106 mmol/L Normal 98-107 [facility] Comment on above: Performed By: #### B MP #### [facility] [address] [place] [address] Dr. Peter Kyle CO2 [Moles/Vol] 26.9 mmol/L Normal 21.0-32.0 [facility] Comment on above: Performed By: #### B MP #### [facility] [address] [place] [address] Dr. Peter Kyle Creatinine [Mass/Vol] 1.03 mg/dL Normal 0.70-1.30 [facility] Comment on above: Performed By: #### B MP #### [facility] [address] [address] [address] Peter Kyle EGFR-AF PORTUGUESE >60 Normal >=60 [facility] Comment on above: Performed By: #### B MP #### [facility] [address] [place] [address] Dr. Peter Kyle EGFR-NON AF PORTUGUESE >60 Normal >=60 [facility] Comment on above: Performed By: #### B MP #### [facility] [address] [address] [address] Peter Kyle Glucose [Mass/Vol] 111 mg/dL Critically high 74-106 [facility] Comment on above: Performed By: #### B MP #### [facility] [address] [place] [address] Dr. Peter Kyle Potassium [Moles/Vol] 4.1 mmol/L Normal 3.5-5.1 [facility] Comment on above: Performed By: #### B MP #### [facility] [address] [place] [address] Dr. Peter Kyle Sodium [Moles/Vol] 143 mmol/L Normal 136-145 [facility] Comment on above: Performed By: #### B MP #### [facility] [address] [place] [address] Dr. Peter Kyle Urea nitrogen [Mass/Vol] 8.0 mg/dL Normal 7.0-18.0 [facility] Comment on above: Performed By: #### B MP #### [facility] [address] [place] [address] Dr. Peter Kyle Urea nitrogen/Creatinine [Mass ratio] 7.8 mg/mg Normal [facility] Comment on above: Performed By: #### B MP #### [facility] [address] [place] [address] Dr. Peter Kyle PROTIMEon 12-30-2022 INR Coag (PPP) [Relative time] 1.01 {INR} Normal [facility] Comment on above: Performed By: #### P TT, PT #### [facility] [address] [place] [address] Dr. Peter Kyle INR GUIDELINES SEE BELOW Normal [facility] Comment on above: Result Comment: ALE RED INR: 2.0 - 3.0 CONDITIONS NOT LISTED BELOW 2.5 - 3.5 FOR PROSTHETIC HEART VALVE REPLACEMENT 2.5 - 3.5 RECURRENT THROMBOSIS Performed By: #### P TT, PT #### [facility] [address] [address] [address] Peter Kyle PT Coag (PPP) [Time] 10.7 s Normal 9.0-11.6 [facility] Comment on above: Performed By: #### P TT, PT #### [facility] [address] [address] [address] Peter Kyle PTTon 12-30-2022 aPTT Coag (Bld) [Time] 29.2 s Normal 22.3-36.2 [facility] Comment on above: Performed By: #### P TT, PT #### [facility] [address] [address] [address] Peter Kyle US KIDNEYSon 12-14-2022 US KIDNEYS EXAMINATION: [facility] HISTORY: Contusion of kidney COMPARISON: No relevant [...] MYRA SHAFFER Date: 2022-12-14 17:38 Normal [facility] XR KUB 1 VIEWon 12-14-2022 XR KUB [...] MYRA SHAFFER Date: 2022-12-14 18:10 Normal [facility] Ammonium urate crystals dete ction in stone by infrared spectroscopyOrdered By: Patito Sweet on 11-29-2022 Ammonium urate crystals Infrared spectroscopy Ql (Stone) N/A [facility] Calcium bilirubinate measure mentOrdered By: Patito Sweet on 11-29-2022 Calcium bilirubinate (Stone) [Mass fraction] N/A [facility] Calcium carbonate measuremen tOrdered By: Patito Sweet on 11-29-2022 Calcium carbonate (Stone) [Mass fraction] N/A [facility] Calcium hydrogen phosphate d ihydrate/Total in StoneOrdered By: Patito Sweet on 11-29-2022 Calcium hydrogen phosphate dihydrate (Stone) [Mass fraction] N/A [facility] Calcium oxalate dihydrate cr ystals detection in stone by infrared spectroscopyOrdered By: Patito Sweet on 11-29-2022 Calcium oxalate dihydrate crystals Infrared spectroscopy Ql (Stone) N/A [facility] Calcium oxalate monohydrate/ Total in StoneOrdered By: Patito Sweet on 11-29-2022 Calcium oxalate monohydrate (Stone) [Mass fraction] 100 % . [facility] Calcium phosphate measuremen tOrdered By: Patito Sweet on 11-29-2022 Calcium phosphate (Stone) [Mass fraction] N/A [facility] Calculus analysis interpreta tion in stoneOrdered By: Patito Sweet on 11-29-2022 Calculus analysis [Interp] N/A [facility] Calculus analysis [Interp] See comment . [facility] Comment on above: Calculus received we t. Wet calculi must be dried beforeanalysis, which delays reporting of results. Leaving calculiwet (such as water, saline, blood, urine) may lead tochanges in composition. Physician questions regarding Calculi Analysis [facility] at: [phone]. Calculi report will follow via computer, mail or courierdelivery. Calculus analysis with calcu alok photography interpretation in stoneOrdered By: Patito Sweet on 11-29-2022 Calculus analysis with calculus photography [Interp] See comment . [facility] Comment on above: Photograph will foll ow under a separate cover Cellular material measuremen t in stone by estimated (mass/mass)Ordered By: Patito Sweet on 11-29-2022 Cellular material Est (Stone) [Mass/Mass] N/A [facility] Cholesterol/Total in StoneOr dered By: Patito Sweet on 11-29-2022 Cholesterol (Stone) [Mass fraction] N/A [facility] Composition of stoneOrdered By: Patito Sweet on 11-29-2022 Composition Nom (Stone) See comment . [facility] Comment on above: Percentage (Represen ts the % composition) Creatinine and Glomerular fi ltration rate.predicted panel (S/P/Bld)Ordered By: Myra Lynne on 11-29-2022 Creatinine [Mass/Vol] 1.11 mg/dL 0.64-1.27 [facility] Cystine measurementOrdered B y: Patito Sweet on 11-29-2022 Cystine (Unsp spec) [Moles/Vol] N/A [facility] Determination of color of ca lculusOrdered By: Patito Sweet on 11-29-2022 Color (Stone) Brown . [facility] Estimated glomerular filtrat ion rate (GFR) non- AmericanOrdered By: Myra Lynne on 11-29-2022 GFR/1.73 sq M.predicted among non-blacks MDRD (S/P/Bld) [Vol rate/Area] > 60 mL/Min [facility] Hydroxyapatite [Energy Diffe rence] in 24 hour UrineOrdered By: Patito Sweet on 11-29-2022 Hydroxyapatite (24H U) [Energy diff] N/A [facility] Measurement of proportion of calculus composed of dried blood (mass/mass)Ordered By: Patito Sweet on 11-29-2022 Blood.dried (Stone) [Mass fraction] N/A [facility] Newberyite/Total in StoneOrd ered By: Patito Sweet on 11-29-2022 Newberyite (Stone) [Mass fraction] N/A [facility] No Panel InformationOrdered By: Myra Lynne on 11-29-2022 Estimated GFR () > 60 mL/Min [facility] Comment on above: GFR estimated refere nce range: According to KDOQI guidelines, <60 ml/min/1.73m2 is sufficient to diagnose a patient with chronic kidney disease. Pharmacy Creatinine Clearance (Chem 104.60 [facility] No Panel InformationOrdered By: Patito Sweet on 11-29-2022 Stone 2,8 Dihydroxyadenine N/A [facility] Stone Analysis Disclaimer See comment . [facility] Comment on above: This test was develo ped and its performance characteristicsdetermined by [facility]. It has not been cleared or approvedby the Food and Drug Administration.Performed at: [facility] Stone [address] [place] [address] Dr Mojica, [place], [place] [id number] Director: Francesco Martinez PhD, Phone: [phone] Stone Bilirubinate N/A [facility] Stone Calcium Palmitate N/A [facility] Stone Calcium Stearate N/A [facility] Stone Carbonate Apatite N/A [facility] Stone Drug or Metabolite N/A [facility] Stone Other Constituent N/A [facility] Stone Xanthine N/A [facility] Serum or plasma anion gap de terminationOrdered By: Myra Lynne on 11-29-2022 Anion gap [Moles/Vol] 12.4 mmol/L 6.0-15.0 [facility] Serum or plasma calcium dustin urement (mass/volume)Ordered By: Myra Lynne on 11-29-2022 Calcium [Mass/Vol] 8.9 mg/dL 8.2-10.2 [facility] Serum or plasma chloride justin surement (moles/volume)Ordered By: Myra Lynne on 11-29-2022 Chloride [Moles/Vol] 106 mmol/L 95-114 [facility] Serum or plasma glucose dustin urement (mass/volume)Ordered By: Myra Lynne on 11-29-2022 Glucose [Mass/Vol] 111 mg/dL 70-100 [facility] Comment on above: ADA recommended refe rence rangeRandom Glucose Reference Range is dependent on time and content of last meal. Glucose of more than 200 mg/dL in a nonstressed, ambulatory subject supports the diagnosis of Diabetes Mellitus. Serum or plasma potassium me asurement (moles/volume)Ordered By: Myra Lynne on 11-29-2022 Potassium [Moles/Vol] 3.8 mmol/L 3.5-5.1 [facility] Serum or plasma sodium measu rement (moles/volume)Ordered By: Myra Lynne on 11-29-2022 Sodium [Moles/Vol] 140 mmol/L 136-146 [facility] Serum or plasma total carbon dioxide measurement (moles/volume)Ordered By: Myra Lynne on 11-29-2022 CO2 [Moles/Vol] 25.4 mmol/L 22.0-30.0 [facility] Serum or plasma urea nitroge n measurement (mass/volume)Ordered By: Myra Lynne on 11-29-2022 Urea nitrogen [Mass/Vol] 8 mg/dL 9-23 [facility] Size [Entitic volume] of Sto neOrdered By: Patito Sweet on 11-29-2022 Size (Stone) [Entitic vol] 3x4 mm . [facility] Comment on above: Multiple pieces rece ived. Dimensions of the largest piecereported. Sodium urate crystals detect ion in stone by infrared spectroscopyOrdered By: Patito Sweet on 11-29-2022 Sodium urate crystals Infrared spectroscopy Ql (Stone) N/A [facility] Specimen source subject [Typ e]Ordered By: Patito Sweet on 11-29-2022 Specimen source subject Nom See comment . [facility] Comment on above: Left Kidney Triamterene measurement in c alculusOrdered By: Patito Sweet on 11-29-2022 Triamterene (Stone) [Mass fraction] N/A [facility] Triple phosphate/Total in St oneOrdered By: Patito Sweet on 11-29-2022 Triple phosphate (Stone) [Mass fraction] N/A [facility] Uric acid dihydrate crystals detection in stone by infrared spectroscopyOrdered By: Patito Sweet on 11-29-2022 Urate dihydrate crystals Infrared spectroscopy Ql (Stone) N/A [facility] Activated partial thrombopla stin time (aPTT) in platelet poor plasma by coagulation aOrdered By: Patito Sweet on 11-02-2022 aPTT Coag (PPP) [Time] 26.1 s 25.1-36.5 [facility] Aerobic cultureOrdered By: Esther Sweet on 11-02-2022 Bacteria identified Aer cx Nom (Unsp spec) No Growth 2 Days [facility] Bacteria identified Aer cx Nom (Unsp spec) No Growth 2 Days [facility] Anaerobic cultureOrdered By: Patito Sweet on 11-02-2022 Bacteria identified Anaer cx Nom (Unsp spec) No Anaerobes Isolated 3 Days [facility] Bacteria identified Anaer cx Nom (Unsp spec) No Anaerobes Isolated 3 Days [facility] Gram stain for investigation of transfusion reactionOrdered By: Patito Sweet on 11-02-2022 Microscopic observation Gram stain Nom (Unsp spec) [facility] Microscopic observation Gram stain Nom (Unsp spec) [facility] Laboratory - CoagulationOrde red By: Patito Sweet on 11-02-2022 PT Coag (PPP) [Time] 12.5 s 9.0-12.9 [facility] Platelet poor plasma interna tional normalized ratio (INR) by coagulation assay (relatOrdered By: Patito Sweet on 11-02-2022 INR Coag (PPP) [Relative time] 1.1 {INR} [facility] Comment on above: INR Therapeutic Rang e [...] 11-02-2022 Platelets (Bld) [#/Vol] 268 10*3/uL 150-450 [facility] CBC AUTO DIFFon 10-21-2022 BASO # 0.1 103/ul Normal 0.0-0.1 [facility] Comment on above: Performed By: #### C BC #### [facility] [address] [address] [address] Peter Kyle Basophils/100 WBC (Bld) 0.6 % Normal 0.2-2.0 [facility] Comment on above: Performed By: #### C BC #### [facility] [address] [place] [address] Dr. Peter Kyle EO # 0.2 103/ul Normal 0.0-0.7 [facility] Comment on above: Performed By: #### C BC #### [facility] [address] [address] [address] Peter Kyle Eosinophils/100 WBC (Bld) 2.0 % Normal 0.9-7.0 [facility] Comment on above: Performed By: #### C BC #### [facility] [address] [address] [address] Peter Klye Erythrocyte distribution width (RBC) [Ratio] 15.9 % Critically high 11.0-15.0 [facility] Comment on above: Performed By: #### C BC #### [facility] [address] [place] [address] Dr. Peter Kyle Hematocrit (Bld) [Volume fraction] 37.0 % Critically low 42.0-54.0 [facility] Comment on above: Performed By: #### C BC #### [facility] [address] [place] [address] Dr. Peter Kyle Hemoglobin (Bld) [Mass/Vol] 11.9 g/dL Critically low 14.0-18.0 [facility] Comment on above: Performed By: #### C BC #### [facility] [address] [address] [address] Peter Kyle IG # 0.06 10e3/ul Critically high 0.00-0.03 [facility] Comment on above: Performed By: #### C BC #### [facility] [address] [place] [address] Dr. Peter Kyle IG % 0.6 % Critically high 0.0-0.5 [facility] Comment on above: Performed By: #### C BC #### [facility] [address] [place] [address] Dr. Peter Kyle LYMPH # 2.5 103/ul Normal 1.2-3.8 [facility] Comment on above: Performed By: #### C BC #### [facility] [address] [place] [address] Dr. Peter Kyle Lymphocytes/100 WBC (Bld) 25.7 % Normal 20.5-60.0 [facility] Comment on above: Performed By: #### C BC #### [facility] [address] [place] [address] Dr. Peter Kyle MANUAL DIFF REQ NO Normal [facility] Comment on above: Performed By: #### C BC #### [facility] [address] [place] [address] Dr. Peter Kyle MCH (RBC) [Entitic mass] 24.3 pg Critically low 25.9-34.0 [facility] Comment on above: Performed By: #### C BC #### [facility] [address] [place] [address] Dr. Peter Kyle MCHC (RBC) [Mass/Vol] 32.2 g/dL Normal 29.9-35.2 [facility] Comment on above: Performed By: #### C BC #### [facility] [address] [place] [address] Dr. Peter Kyle MCV (RBC) [Entitic vol] 75.5 fL Critically low 80.0-94.0 [facility] Comment on above: Performed By: #### C BC #### [facility] [address] [address] [address] Peter Kyle MONO # 0.9 103/ul Critically high 0.3-0.8 [facility] Comment on above: Performed By: #### C BC #### [facility] [address] [address] [address] Peter Kyle Monocytes/100 WBC (Bld) 9.2 % Normal 1.7-12.0 [facility] Comment on above: Performed By: #### C BC #### [facility] [address] [place] [address] Dr. Peter Kyle NEUT # 5.9 103/ul Normal 1.4-6.5 [facility] Comment on above: Performed By: #### C BC #### [facility] [address] [place] [address] Dr. Peter Kyle Neutrophils/100 WBC (Bld) 61.9 % Normal 43.0-75.0 [facility] Comment on above: Performed By: #### C BC #### [facility] [address] [place] [address] Dr. Peter Kyle Platelet mean volume (Bld) [Entitic vol] 8.7 fL Critically low 9.5-13.5 [facility] Comment on above: Performed By: #### C BC #### [facility] [address] [place] [address] Dr. Peter Kyle PLT 276 103/ul Normal 150-450 [facility] Comment on above: Performed By: #### C BC #### [facility] [address] [place] [address] Dr. Peter Kyle RBC 4.90 106/ul Normal 4.70-6.10 [facility] Comment on above: Performed By: #### C BC #### [facility] [address] [place] [address] Dr. Peter Kyle WBC 9.6 103/ul Normal 4.0-11.0 [facility] Comment on above: Performed By: #### C BC #### [facility] [address] [place] [address] Dr. Peter Kyle US KIDNEYSon 10-21-2022 US [...] by: LIMA CAMPOS Date: 2022-10-21 13:25 Normal [facility] US KIDNEYSon 10-06-2022 US KIDNEYS EXAMINATION: US [...] by: RIVAS KINCAID Date: 2022-10-06 07:41 Normal [facility] XR KUB 1 VIEWon 10-06-2022 XR KUB [...] by: RIVAS KINCAID Date: 2022-10-06 07:28 Normal [facility] Basophils Auto (Bld) [#/Vol] Ordered By: Ulises Barron on 09-30-2022 Basophils (Bld) [#/Vol] 0.1 10*3/uL 0.0-0.2 [facility] Basophils/100 WBC Auto (Bld) Ordered By: Ulises Barron on 09-30-2022 Basophils/100 WBC (Bld) 0.8 % . [facility] Creatinine and Glomerular fi ltration rate.predicted panel (S/P/Bld)Ordered By: Ulises Barron on 09-30-2022 Creatinine [Mass/Vol] 1.08 mg/dL 0.64-1.27 [facility] Eosinophils Auto (Bld) [#/Vo l]Ordered By: Ulises Barron on 09-30-2022 Eosinophils (Bld) [#/Vol] 0.2 10*3/uL 0.0-0.45 [facility] Eosinophils/100 WBC Auto (Bl d)Ordered By: Ulises Barron on 09-30-2022 Eosinophils/100 WBC (Bld) 2.5 % . [facility] Erythrocyte distribution wid th Auto (RBC) [Ratio]Ordered By: Ulises Barron on 09-30-2022 Erythrocyte distribution width (RBC) [Ratio] 17.3 % 12.0-14.8 [facility] Estimated glomerular filtrat ion rate (GFR) non- AmericanOrdered By: Ulises Barron on 09-30-2022 GFR/1.73 sq M.predicted among non-blacks MDRD (S/P/Bld) [Vol rate/Area] > 60 mL/Min [facility] Hematocrit Auto (Bld) [Volum e fraction]Ordered By: Ulises Barron on 09-30-2022 Hematocrit (Bld) [Volume fraction] 34.3 % 38.8-50.0 [facility] Hemoglobin [Mass/volume] in BloodOrdered By: Ulises Barron on 09-30-2022 Hemoglobin (Bld) [Mass/Vol] 10.9 g/dL 13.0-17.0 [facility] Leukocytes [#/volume] correc tremaine for nucleated erythrocytes in Blood by Automated counOrdered By: Ulises Barron on 09-30-2022 WBC corrected for nucl RBC Auto (Bld) [#/Vol] 7.6 10*3/uL 4.1-10.5 [facility] Lymphocytes Auto (Bld) [#/Vo l]Ordered By: Ulises Barron on 09-30-2022 Lymphocytes (Bld) [#/Vol] 1.8 10*3/uL 1.00-4.8 [facility] Lymphocytes/100 WBC Auto (Bl d)Ordered By: Ulises Barron on 09-30-2022 Lymphocytes/100 WBC (Bld) 23.4 % . [facility] MCH Auto (RBC) [Entitic mass ]Ordered By: Ulises Barron on 09-30-2022 MCH (RBC) [Entitic mass] 24.3 pg 27.5-35.2 [facility] MCHC Auto (RBC) [Mass/Vol]Or dered By: Ulises Barron on 09-30-2022 MCHC (RBC) [Mass/Vol] 31.7 g/dL 32.5-35.6 [facility] MCV Auto (RBC) [Entitic vol] Ordered By: Ulises Barron on 09-30-2022 MCV (RBC) [Entitic vol] 76.6 fL 83.5-101 [facility] Monocytes Auto (Bld) [#/Vol] Ordered By: Ulises Barron on 09-30-2022 Monocytes (Bld) [#/Vol] 0.8 10*3/uL 0.0-0.8 [facility] Monocytes/100 WBC Auto (Bld) Ordered By: Ulises Barron on 09-30-2022 Monocytes/100 WBC (Bld) 10.4 % . [facility] Neutrophils Auto (Bld) [#/Vo l]Ordered By: Ulises Barron on 09-30-2022 Neutrophils (Bld) [#/Vol] 4.8 10*3/uL 1.8-7.7 [facility] Neutrophils/100 WBC Auto (Bl d)Ordered By: Ulises Barron on 09-30-2022 Neutrophils/100 WBC (Bld) 62.9 % . [facility] No Panel InformationOrdered By: Ulises Barron on 09-30-2022 Estimated GFR () > 60 mL/Min [facility] Comment on above: GFR estimated refere nce range: According to KDOQI guidelines, <60 ml/min/1.73m2 is sufficient to diagnose a patient with chronic kidney disease. Pharmacy Creatinine Clearance (Chem 108.07 [facility] Nucleated erythrocytes [Pres ence] in Blood by Automated countOrdered By: Ulises Barron on 09-30-2022 Nucleated RBC Auto Ql (Bld) 0.1 /100{WBC} 0-0.5 [facility] Platelet mean volume Auto (B ld) [Entitic vol]Ordered By: Ulises Barron on 09-30-2022 Platelet mean volume (Bld) [Entitic vol] 6.6 fL 6.6-10.1 [facility] Platelets Auto (Bld) [#/Vol] Ordered By: Ulises Barron on 09-30-2022 Platelets (Bld) [#/Vol] 225 10*3/uL 150-450 [facility] RBC Auto (Bld) [#/Vol]Ordere d By: Ulises Barron on 09-30-2022 RBC (Bld) [#/Vol] 4.47 10*6/uL 3.90-5.60 [facility] Serum or plasma anion gap de terminationOrdered By: Ulises Barron on 09-30-2022 Anion gap [Moles/Vol] 11.2 mmol/L 6.0-15.0 [facility] Serum or plasma calcium dustin urement (mass/volume)Ordered By: Ulises Barron on 09-30-2022 Calcium [Mass/Vol] 8.7 mg/dL 8.2-10.2 [facility] Serum or plasma chloride justin surement (moles/volume)Ordered By: Ulises Barron on 09-30-2022 Chloride [Moles/Vol] 104 mmol/L 95-114 [facility] Serum or plasma glucose dustin urement (mass/volume)Ordered By: Ulises Barron on 09-30-2022 Glucose [Mass/Vol] 98 mg/dL 70-100 [facility] Comment on above: ADA recommended refe rence rangeRandom Glucose Reference Range is dependent on time and content of last meal. Glucose of more than 200 mg/dL in a nonstressed, ambulatory subject supports the diagnosis of Diabetes Mellitus. Serum or plasma potassium me asurement (moles/volume)Ordered By: Ulises Barron on 09-30-2022 Potassium [Moles/Vol] 3.9 mmol/L 3.5-5.1 [facility] Serum or plasma sodium measu rement (moles/volume)Ordered By: Ulises Barron on 09-30-2022 Sodium [Moles/Vol] 137 mmol/L 136-146 [facility] Serum or plasma total carbon dioxide measurement (moles/volume)Ordered By: Ulises Barron on 09-30-2022 CO2 [Moles/Vol] 25.7 mmol/L 22.0-30.0 [facility] Serum or plasma urea nitroge n measurement (mass/volume)Ordered By: Ulises Barron on 09-30-2022 Urea nitrogen [Mass/Vol] 9 mg/dL 9-23 [facility] WBC Auto (Bld) [#/Vol]Ordere d By: lUises Barron on 09-30-2022 WBC (Bld) [#/Vol] 7.6 10*3/uL 4.1-10.5 [facility] BNPon 09-29-2022 Natriuretic peptide B (Bld) [Mass/Vol] 89.0 pg/mL Normal <=900.0 [facility] Comment on above: Performed By: #### C BC #### [facility] [address], [place] [address] Dr. Peter Kyle CARDIAC ITALO ADMITon 022 CK [Catalytic activity/Vol] 94 U/L Normal 39-308 [facility] Comment on above: Performed By: #### C BC #### [facility] [address], [place] [address] Dr. Peter Kyle CK.MB [Mass/Vol] 1.55 ng/mL Normal <=3.60 [facility] Comment on above: Performed By: #### C BC #### [facility] [address] [place] [address] Dr. Peter Kyle HSTROP 12.0 pg/mL Normal 4.0-76.1 [facility] Comment on above: Result Comment: CUT- OFF POINTS HAVE BEEN ESTABLISHED BASED ON THE FOURTH UNIVERSAL DEFINITIONS OF MYOCARDIAL INFARCTION. THE UPPER REFERENCE LIMIT (URL) OF TROPONIN, DEFINED THE 99TH PERCENTILE OF cTnI DISTRIBUTION IN A REFERENCE POPULATION, HAS BEEN CONFIRMED THE DECISION THRESHOLD FOR TX DIAGNOSIS. Performed By: #### C BC #### [facility] [address] [place] [address] Dr. Peter Kyle CELIO 64 ng/mL Normal 16-96 [facility] Comment on above: Performed By: #### C BC #### [facility] [address] [place] [address] Dr. Peter Kyle CBC AUTO DIFFon 09-29-2022 BASO # 0.1 103/ul Normal 0.0-0.1 [facility] Comment on above: Performed By: #### C BC #### [facility] [address] [place] [address] Dr. Peter Kyle Basophils/100 WBC (Bld) 0.7 % Normal 0.2-2.0 [facility] Comment on above: Performed By: #### C BC #### [facility] [address] [place] [address] Dr. Peter Kyle EO # 0.2 103/ul Normal 0.0-0.7 [facility] Comment on above: Performed By: #### C BC #### [facility] [address] [place] [address] Dr. Peter Kyle Eosinophils/100 WBC (Bld) 2.8 % Normal 0.9-7.0 [facility] Comment on above: Performed By: #### C BC #### [facility] [address] [place] [address] Dr. ePter Kyle Erythrocyte distribution width (RBC) [Ratio] 16.3 % Critically high 11.0-15.0 [facility] Comment on above: Performed By: #### C BC #### [facility] [address] [place] [address] Dr. Peter Kyle Hematocrit (Bld) [Volume fraction] 34.3 % Critically low 42.0-54.0 [facility] Comment on above: Performed By: #### C BC #### [facility] [address] [place] [address] Dr. Peter Kyle Hemoglobin (Bld) [Mass/Vol] 10.7 g/dL Critically low 14.0-18.0 [facility] Comment on above: Performed By: #### C BC #### [facility] [address] [place] [address] Dr. Peter Kyle IG # 0.08 10e3/ul Critically high 0.00-0.03 [facility] Comment on above: Performed By: #### C BC #### [facility] [address] [place] [address] Dr. Peter Kyle IG % 1.1 % Critically high 0.0-0.5 [facility] Comment on above: Performed By: #### C BC #### [facility] [address] [place] [address] Dr. Peter Kyle LYMPH # 1.9 103/ul Normal 1.2-3.8 [facility] Comment on above: Performed By: #### C BC #### [facility] [address] [place] [address] Dr. Peter Kyle Lymphocytes/100 WBC (Bld) 24.8 % Normal 20.5-60.0 [facility] Comment on above: Performed By: #### C BC #### [facility] [address] [place] [address] Dr. Peter Kyle MANUAL DIFF REQ NO Normal [facility] Comment on above: Performed By: #### C BC #### [facility] [address] [place] [address] Dr. Peter Kyle MCH (RBC) [Entitic mass] 24.5 pg Critically low 25.9-34.0 [facility] Comment on above: Performed By: #### C BC #### [facility] [address] [address] [address] Peter Kyle MCHC (RBC) [Mass/Vol] 31.2 g/dL Normal 29.9-35.2 [facility] Comment on above: Performed By: #### C BC #### [facility] [address] [place] [address] Dr. Peter Kyle MCV (RBC) [Entitic vol] 78.5 fL Critically low 80.0-94.0 [facility] Comment on above: Performed By: #### C BC #### [facility] [address] [place] [address] Dr. Peter Kyle MONO # 0.8 103/ul Normal 0.3-0.8 [facility] Comment on above: Performed By: #### C BC #### [facility] [address] [place] [address] Dr. Peter Kyle Monocytes/100 WBC (Bld) 10.0 % Normal 1.7-12.0 [facility] Comment on above: Performed By: #### C BC #### [facility] [address] [place] [address] Dr. Peter Kyle NEUT # 4.6 103/ul Normal 1.4-6.5 [facility] Comment on above: Performed By: #### C BC #### [facility] [address] [place] [address] Dr. Peter Kyle Neutrophils/100 WBC (Bld) 60.6 % Normal 43.0-75.0 [facility] Comment on above: Performed By: #### C BC #### [facility] [address] [place] [address] Dr. Peter Kyle Platelet mean volume (Bld) [Entitic vol] 8.3 fL Critically low 9.5-13.5 [facility] Comment on above: Performed By: #### C BC #### [facility] [address] [place] [address] Dr. Peter Kyle PLT 203 103/ul Normal 150-450 [facility] Comment on above: Performed By: #### C BC #### [facility] [address], [place] [address] Dr. Peter Kyle RBC 4.37 106/ul Critically low 4.70-6.10 [facility] Comment on above: Performed By: #### C BC #### [facility] [address], [place] [address] Dr. Peter Kyle WBC 7.6 103/ul Normal 4.0-11.0 [facility] Comment on above: Performed By: #### C BC #### [facility] [address], [place] [address] ABD/PELVIS WO CONon [...] RIVAS KINCAID Date: 2022-09-29 07:04 Normal [facility] FREE THYROXINE INDEX T7on FTI 2.15 Normal 1.30-4.50 [facility] Comment on above: Performed By: #### C BC #### [facility] [address] [place] [address] Dr. Peter Kyle T3U 33.0 % Normal 33.0-40.0 [facility] Comment on above: Performed By: #### C BC #### [facility] [address] [place] [address] Dr. Peter Kyle T4 [Mass/Vol] 6.50 ug/dL Normal 4.50-12.10 [facility] Comment on above: Performed By: #### C BC #### [facility] [address] [place] [address] Dr. Peter Kyle PROF 14(COMP METB)on 022 Albumin [Mass/Vol] 3.4 g/dL Normal 3.4-5.0 [facility] Comment on above: Performed By: #### C BC #### [facility] [address] [place] [address] Dr. Peter Kyle Albumin/Globulin [Mass ratio] 0.9 {ratio} Normal [facility] Comment on above: Performed By: #### C BC #### [facility] [address] [place] [address] Dr. Peter Kyle ALP [Catalytic activity/Vol] 64 U/L Normal 46-116 [facility] Comment on above: Performed By: #### C BC #### [facility] [address] [address] [address] Peter Kyle ALT [Catalytic activity/Vol] 14 U/L Critically low 16-63 [facility] Comment on above: Performed By: #### C BC #### [facility] [address] [address] [address] Peter Kyle Anion gap [Moles/Vol] 9.6 mmol/L Normal [facility] Comment on above: Performed By: #### C BC #### [facility] [address] [address] [address] Peter Kyle AST [Catalytic activity/Vol] 15 U/L Normal 15-37 [facility] Comment on above: Performed By: #### C BC #### [facility] [address] [place] [address] Dr. Peter Kyle Bilirubin [Mass/Vol] 0.5 mg/dL Normal 0.2-1.0 [facility] Comment on above: Performed By: #### C BC #### [facility] [address] [address] [address] Peter Kyle Calcium [Mass/Vol] 8.5 mg/dL Normal 8.5-10.1 [facility] Comment on above: Performed By: #### C BC #### [facility] [address] [address] [address] Peter Kyle Chloride [Moles/Vol] 105 mmol/L Normal 98-107 [facility] Comment on above: Performed By: #### C BC #### [facility] [address] [address] [address] Peter Kyle CO2 [Moles/Vol] 29.4 mmol/L Normal 21.0-32.0 [facility] Comment on above: Performed By: #### C BC #### [facility] [address] [address] [address] Peter Kyle Creatinine [Mass/Vol] 1.17 mg/dL Normal 0.70-1.30 [facility] Comment on above: Performed By: #### C BC #### [facility] [address] [address] [address] Peter Kyle EGFR-AF PORTUGUESE >60 Normal >=60 [facility] Comment on above: Performed By: #### C BC #### [facility] [address] [address] [address] Peter Kyle EGFR-NON AF PORTUGUESE >60 Normal >=60 [facility] Comment on above: Performed By: #### C BC #### [facility] [address] [address] [address] Peter Kyle Globulin (S) [Mass/Vol] 4.0 g/dL Normal [facility] Comment on above: Performed By: #### C BC #### [facility] [address] [address] [address] Peter yKle Glucose [Mass/Vol] 89 mg/dL Normal 74-106 [facility] Comment on above: Performed By: #### C BC #### [facility] [address] [place] [address] Dr. Peter Kyle Potassium [Moles/Vol] 4.0 mmol/L Normal 3.5-5.1 [facility] Comment on above: Performed By: #### C BC #### [facility] [address] [place] [address] Dr. Peter Kyle Protein [Mass/Vol] 7.4 g/dL Normal 6.4-8.2 [facility] Comment on above: Performed By: #### C BC #### [facility] [address] [address] [address] Peter Kyle Sodium [Moles/Vol] 140 mmol/L Normal 136-145 [facility] Comment on above: Performed By: #### C BC #### [facility] [address] [place] [address] Dr. Peter Kyle Urea nitrogen [Mass/Vol] 12.0 mg/dL Normal 7.0-18.0 [facility] Comment on above: Performed By: #### C BC #### [facility] [address] [place] [address] Dr. Peter Kyle Urea nitrogen/Creatinine [Mass ratio] 10.3 mg/mg Normal [facility] Comment on above: Performed By: #### C BC #### [facility] [address] [place] [address] Dr. Peter Kyle TSHon 09-29-2022 TSH 1.129 uIU/mL Normal 0.358-3.74 0 [facility] Comment on above: Performed By: #### C BC #### [facility] [address] [place] [address] Dr. Peter Kyle HEMOGLOBIN AND HEMATOCRITon 09-28-2022 Hematocrit (Bld) [Volume fraction] 34.1 % Critically low 42.0-54.0 [facility] Comment on above: Performed By: #### H GBHCT #### [facility] [address] [place] [address] Dr. Peter Kyle Hemoglobin (Bld) [Mass/Vol] 10.8 g/dL Critically low 14.0-18.0 [facility] Comment on above: Performed By: #### H GBHCT #### [facility] [address] [place] [address] Dr. Peter Kyle INSULINon 09-21-2022 Insulin 33.7 uIU/mL Critically high 2.6-24.9 [facility] Comment on above: Performed By: #### C BC #### [facility] [address] [place] [address] Dr. Peter Kyle CBC AUTO DIFFon 09-20-2022 BASO # 0.1 103/ul Normal 0.0-0.1 [facility] Comment on above: Performed By: #### P TT, PT #### [facility] [address] [place] [address] Dr. Peter Kyle Basophils/100 WBC (Bld) 0.5 % Normal 0.2-2.0 [facility] Comment on above: Performed By: #### P TT, PT #### [facility] [address] [place] [address] Dr. Peter Kyle EO # 0.3 103/ul Normal 0.0-0.7 [facility] Comment on above: Performed By: #### P TT, PT #### [facility] [address] [place] [address] Dr. Peter Kyle Eosinophils/100 WBC (Bld) 3.3 % Normal 0.9-7.0 [facility] Comment on above: Performed By: #### P TT, PT #### [facility] [address] [place] [address] Dr. Peter Kyle Erythrocyte distribution width (RBC) [Ratio] 14.7 % Normal 11.0-15.0 [facility] Comment on above: Performed By: #### P TT, PT #### [facility] [address] [place] [address] Dr. Peter Kyle Hematocrit (Bld) [Volume fraction] 33.4 % Critically low 42.0-54.0 [facility] Comment on above: Performed By: #### P TT, PT #### [facility] [address] [place] [address] Dr. Peter Kyle Hemoglobin (Bld) [Mass/Vol] 10.6 g/dL Critically low 14.0-18.0 [facility] Comment on above: Performed By: #### P TT, PT #### [facility] [address] [place] [address] Dr. Peter Kyle IG # 0.14 10e3/ul Critically high 0.00-0.03 [facility] Comment on above: Performed By: #### P TT, PT #### [facility] [address] [place] [address] Dr. Peter Kyle IG % 1.5 % Critically high 0.0-0.5 [facility] Comment on above: Performed By: #### P TT, PT #### [facility] [address] [place] [address] Dr. Peter Kyle LYMPH # 2.0 103/ul Normal 1.2-3.8 [facility] Comment on above: Performed By: #### P TT, PT #### [facility] [address] [place] [address] Dr. Peter Kyle Lymphocytes/100 WBC (Bld) 21.8 % Normal 20.5-60.0 [facility] Comment on above: Performed By: #### P TT, PT #### [facility] [address] [place] [address] Dr. Peter Kyle MANUAL DIFF REQ NO Normal [facility] Comment on above: Performed By: #### P TT, PT #### [facility] [address] [place] [address] Dr. Peter Kyle MCH (RBC) [Entitic mass] 24.8 pg Critically low 25.9-34.0 [facility] Comment on above: Performed By: #### P TT, PT #### [facility] [address] [place] [address] Dr. Peter Kyle MCHC (RBC) [Mass/Vol] 31.7 g/dL Normal 29.9-35.2 [facility] Comment on above: Performed By: #### P TT, PT #### [facility] [address] [place] [address] Dr. Peter Kyle MCV (RBC) [Entitic vol] 78.0 fL Critically low 80.0-94.0 [facility] Comment on above: Performed By: #### P TT, PT #### [facility] [address] [place] [address] Dr. Peter Kyle MONO # 0.8 103/ul Normal 0.3-0.8 [facility] Comment on above: Performed By: #### P TT, PT #### [facility] [address] [place] [address] Dr. Peter Kyle Monocytes/100 WBC (Bld) 8.6 % Normal 1.7-12.0 [facility] Comment on above: Performed By: #### P TT, PT #### [facility] [address] [place] [address] Dr. Peter Kyle NEUT # 5.9 103/ul Normal 1.4-6.5 [facility] Comment on above: Performed By: #### P TT, PT #### [facility] [address] [address] [address] Peter Kyle Neutrophils/100 WBC (Bld) 64.3 % Normal 43.0-75.0 [facility] Comment on above: Performed By: #### P TT, PT #### [facility] [address] [address] [address] Peter Kyle Platelet mean volume (Bld) [Entitic vol] 8.1 fL Critically low 9.5-13.5 [facility] Comment on above: Performed By: #### P TT, PT #### [facility] [address] [address] [address] Peter Kyle PLT 309 103/ul Normal 150-450 [facility] Comment on above: Performed By: #### P TT, PT #### [facility] [address] [place] [address] Dr. Peter Kyle RBC 4.28 106/ul Critically low 4.70-6.10 [facility] Comment on above: Performed By: #### P TT, PT #### [facility] [address] [address] [address] Peter Kyle WBC 9.2 103/ul Normal 4.0-11.0 [facility] Comment on above: Performed By: #### P TT, PT #### [facility] [address] [place] [address] Dr. Peter Kyle FREE THYROXINE INDEX T7on FTI 1.77 Normal 1.30-4.50 [facility] Comment on above: Performed By: #### T SH, T7, CMP #### [facility] [address] [place] [address] Dr. Peter Kyle T3U 34.0 % Normal 33.0-40.0 [facility] Comment on above: Performed By: #### T SH, T7, CMP #### [facility] [address] [place] [address] Dr. Peter Kyle T4 [Mass/Vol] 5.20 ug/dL Normal 4.50-12.10 [facility] Comment on above: Performed By: #### T SH, T7, CMP #### [facility] [address] [place] [address] Dr. Peter Kyle GLYCOHEMOGLOBIN A1Con 2021 ADA RECOMMENDATION SEE BELOW Normal [facility] Comment on above: Result Comment: ADA RECOMMENDED LIMIT 4.0 - 6.0 ADA THERAPEUTIC TARGET < 7.0 ACTION SUGGESTED > 7.0 Performed By: #### C BC #### [facility] [address] [place] [address] Dr. Peter Kyle Glucose [Mass/Vol] 126 mg/dL Normal [facility] Comment on above: Performed By: #### C BC #### [facility] [address] [place] [address] Dr. Peter Kyle HbA1c (Bld) [Mass fraction] 6.0 % Normal 4.5-6.2 [facility] Comment on above: Performed By: #### C BC #### [facility] [address] [place] [address] Dr. Peter Kyle PROF 14(COMP METB)on 022 Albumin [Mass/Vol] 3.3 g/dL Critically low 3.4-5.[address] [facility] Comment on above: Performed By: #### T SH, T7, CMP #### [facility] [address] [place] [address] Dr. Peter Kyle Albumin/Globulin [Mass ratio] 0.8 {ratio} Normal [facility] Comment on above: Performed By: #### T SH, T7, CMP #### [facility] [address] [place] [address] Dr. Peter Kyle ALP [Catalytic activity/Vol] 71 U/L Normal 46-116 [facility] Comment on above: Performed By: #### T SH, T7, CMP #### [facility] [address] [place] [address] Dr. Peter Kyle ALT [Catalytic activity/Vol] 12 U/L Critically low 16-63 [facility] Comment on above: Performed By: #### T SH, T7, CMP #### [facility] [address] [place] [address] Dr. Peter Kyle Anion gap [Moles/Vol] 11.4 mmol/L Normal [facility] Comment on above: Performed By: #### T EZEKIEL, T7, CMP #### [facility] [address] [address] [address] Peter Kyle AST [Catalytic activity/Vol] 12 U/L Critically low 15-37 [facility] Comment on above: Performed By: #### T EZEKIEL, T7, CMP #### [facility] [address] [place] [address] Dr. Peter Kyle Bilirubin [Mass/Vol] 0.4 mg/dL Normal 0.2-1.0 [facility] Comment on above: Performed By: #### T EZEKIEL, T7, CMP #### [facility] [address] [place] [address] Dr. Peter Kyle Calcium [Mass/Vol] 8.6 mg/dL Normal 8.5-10.1 [facility] Comment on above: Performed By: #### T EZEKIEL, T7, CMP #### [facility] [address] [place] [address] Dr. Peter Kyle Chloride [Moles/Vol] 106 mmol/L Normal 98-107 [facility] Comment on above: Performed By: #### T EZEKIEL, T7, CMP #### [facility] [address] [place] [address] Dr. Peter Kyle CO2 [Moles/Vol] 25.9 mmol/L Normal 21.0-32.0 [facility] Comment on above: Performed By: #### T EZEKIEL, T7, CMP #### [facility] [address] [place] [address] Dr. Peter Kyle Creatinine [Mass/Vol] 1.22 mg/dL Normal 0.70-1.30 [facility] Comment on above: Performed By: #### T EZEKIEL, T7, CMP #### [facility] [address] [place] [address] Dr. Peter Kyle EGFR-AF PORTUGUESE >60 Normal >=60 [facility] Comment on above: Performed By: #### T EZEKIEL, T7, CMP #### [facility] [address] [address] [address] Peter Kyle EGFR-NON AF PORTUGUESE >60 Normal >=60 [facility] Comment on above: Performed By: #### T EZEKIEL, T7, CMP #### [facility] [address] [place] [address] Dr. Peter Kyle Globulin (S) [Mass/Vol] 4.2 g/dL Normal [facility] Comment on above: Performed By: #### T EZEKIEL, T7, CMP #### [facility] [address] [place] [address] Dr. Peter Kyle Glucose [Mass/Vol] 111 mg/dL Critically high 74-106 [facility] Comment on above: Performed By: #### T EZEKIEL, T7, CMP #### [facility] [address] [place] [address] Dr. Peter Kyle Potassium [Moles/Vol] 4.3 mmol/L Normal 3.5-5.1 [facility] Comment on above: Performed By: #### T EZEKIEL, T7, CMP #### [facility] [address] [place] [address] Dr. Peter Kyle Protein [Mass/Vol] 7.5 g/dL Normal 6.4-8.2 [facility] Comment on above: Performed By: #### T EZEKIEL, T7, CMP #### [facility] [address] [place] [address] Dr. Peter Kyle Sodium [Moles/Vol] 139 mmol/L Normal 136-145 [facility] Comment on above: Performed By: #### T EZEKIEL, T7, CMP #### [facility] [address] [place] [address] Dr. Peter Kyle Urea nitrogen [Mass/Vol] 8.0 mg/dL Normal 7.0-18.0 [facility] Comment on above: Performed By: #### T SH, T7, CMP #### [facility] [address] [place] [address] Dr. Peter Kyle Urea nitrogen/Creatinine [Mass ratio] 6.6 mg/mg Normal [facility] Comment on above: Performed By: #### T SH, T7, CMP #### [facility] [address] [place], [place] [address] Dr. Peter Kyle TSHon 09-20-2022 TSH 0.857 uIU/mL Normal 0.358-3.74 0 [facility] Comment on above: Performed By: #### T SH, T7, CMP #### [facility] [address] [place], [place] [address] Dr. Peter Kyle XR KUB 1 VIEWon [...] by: RIVAS KINCAID Date: 2022-09-20 12:24 Normal [facility] COVID-19 Positive/NegativeOr dered By: Patito Sweet on 08-19-2022 SARS-CoV-2 (COVID-19) N gene VIMAL+probe Ql (Resp) Negative Negative [facility] Comment on above: Testing for SARS-CoV -2 by RT-PCRThis test was developed and its performance characteristics determined by [employer] and validated at the [facility]. This test has not been FDA cleared [...] aPTT Coag (PPP) [Time] 30.4 s 25.1-36.5 [facility] Basophils Auto (Bld) [#/Vol] Ordered By: Patito Sweet on 08-12-2022 Basophils (Bld) [#/Vol] 0.1 10*3/uL 0.0-0.2 [facility] Basophils/100 WBC Auto (Bld) Ordered By: Patito Sweet on 08-12-2022 Basophils/100 WBC (Bld) 0.6 % . [facility] Creatinine and Glomerular fi ltration rate.predicted panel (S/P/Bld)Ordered By: Patito Sweet on 08-12-2022 Creatinine [Mass/Vol] 1.08 mg/dL 0.64-1.27 [facility] Eosinophils Auto (Bld) [#/Vo l]Ordered By: Patito Sweet on 08-12-2022 Eosinophils (Bld) [#/Vol] 0.2 10*3/uL 0.0-0.45 [facility] Eosinophils/100 WBC Auto (Bl d)Ordered By: Patito Sweet on 08-12-2022 Eosinophils/100 WBC (Bld) 1.9 % . [facility] Erythrocyte distribution wid th Auto (RBC) [Ratio]Ordered By: Patito Sweet on 08-12-2022 Erythrocyte distribution width (RBC) [Ratio] 15.0 % 12.0-14.8 [facility] Estimated glomerular filtrat ion rate (GFR) non- AmericanOrdered By: Patito Sweet on 08-12-2022 GFR/1.73 sq M.predicted among non-blacks MDRD (S/P/Bld) [Vol rate/Area] > 60 mL/Min [facility] Hematocrit Auto (Bld) [Volum e fraction]Ordered By: Patito Sweet on 08-12-2022 Hematocrit (Bld) [Volume fraction] 42.6 % 38.8-50.0 [facility] Hemoglobin [Mass/volume] in BloodOrdered By: Patito Sweet on 08-12-2022 Hemoglobin (Bld) [Mass/Vol] 13.9 g/dL 13.0-17.0 [facility] Laboratory - CoagulationOrde red By: Patito Sweet on 08-12-2022 PT Coag (PPP) [Time] 14.0 s 9.0-12.9 [facility] - Hematology and Cell countsOrdered By: Patito Sweet on 08-12-2022 Nucleated RBC/100 WBC (Bld) [Ratio] 0.1 % 0-0.5 [facility] Leukocytes [#/volume] in Blo od by Automated countOrdered By: Patito Sweet on 08-12-2022 WBC (Bld) [#/Vol] 9.0 10*3/uL 4.5-11.0 [facility] Lymphocytes Auto (Bld) [#/Vo l]Ordered By: Patito Sweet on 08-12-2022 Lymphocytes (Bld) [#/Vol] 2.0 10*3/uL 1.00-4.8 [facility] Lymphocytes/100 WBC Auto (Bl d)Ordered By: Patito Sweet on 08-12-2022 Lymphocytes/100 WBC (Bld) 22.1 % . [facility] MCH Auto (RBC) [Entitic mass ]Ordered By: Patito Sweet on 08-12-2022 MCH (RBC) [Entitic mass] 25.8 pg 27.5-35.2 [facility] MCHC Auto (RBC) [Mass/Vol]Or dered By: Patito Sweet on 08-12-2022 MCHC (RBC) [Mass/Vol] 32.6 g/dL 32.5-35.6 [facility] MCV Auto (RBC) [Entitic vol] Ordered By: Patito Sweet on 08-12-2022 MCV (RBC) [Entitic vol] 79.1 fL 83.5-101 [facility] Monocytes Auto (Bld) [#/Vol] Ordered By: Patito Sweet on 08-12-2022 Monocytes (Bld) [#/Vol] 0.8 10*3/uL 0.0-0.8 [facility] Monocytes/100 WBC Auto (Bld) Ordered By: Patito Sweet on 08-12-2022 Monocytes/100 WBC (Bld) 9.2 % . [facility] Neutrophils Auto (Bld) [#/Vo l]Ordered By: Patito Sweet on 08-12-2022 Neutrophils (Bld) [#/Vol] 6.0 10*3/uL 1.8-7.7 [facility] Neutrophils/100 WBC Auto (Bl d)Ordered By: Patito Sweet on 08-12-2022 Neutrophils/100 WBC (Bld) 66.2 % . [facility] No Panel InformationOrdered By: Patito Sweet on 08-12-2022 Estimated GFR () > 60 mL/Min [facility] Comment on above: GFR estimated refere nce range: According to KDOQI guidelines, <60 ml/min/1.73m2 is sufficient to diagnose a patient with chronic kidney disease. Pharmacy Creatinine Clearance (Chem N/A [facility] Platelet mean volume Auto (B ld) [Entitic vol]Ordered By: Patito Sweet on 08-12-2022 Platelet mean volume (Bld) [Entitic vol] 7.5 fL 6.6-10.1 [facility] Platelet poor plasma interna tional normalized ratio (INR) by coagulation assay (relatOrdered By: Patito Sweet on 08-12-2022 INR Coag (PPP) [Relative time] 1.2 {INR} [facility] Comment on above: INR Therapeutic Rang e [...] 08-12-2022 Platelets (Bld) [#/Vol] 213 10*3/uL 150-450 [facility] RBC Auto (Bld) [#/Vol]Ordere d By: Patito Sweet on 08-12-2022 RBC (Bld) [#/Vol] 5.38 10*6/uL 3.90-5.60 [facility] Serum or plasma anion gap de terminationOrdered By: Patito Sweet on 08-12-2022 Anion gap [Moles/Vol] 15.0 mmol/L 6.0-15.0 [facility] Serum or plasma calcium dustin urement (mass/volume)Ordered By: Patito Sweet on 08-12-2022 Calcium [Mass/Vol] 9.0 mg/dL 8.2-10.2 [facility] Serum or plasma chloride justin surement (moles/volume)Ordered By: Patito Sweet on 08-12-2022 Chloride [Moles/Vol] 107 mmol/L 95-114 [facility] Serum or plasma glucose dustin urement (mass/volume)Ordered By: Patito Sweet on 08-12-2022 Glucose [Mass/Vol] 128 mg/dL 70-100 [facility] Comment on above: ADA recommended refe rence rangeRandom Glucose Reference Range is dependent on time and content of last meal. Glucose of more than 200 mg/dL in a nonstressed, ambulatory subject supports the diagnosis of Diabetes Mellitus. Serum or plasma potassium me asurement (moles/volume)Ordered By: Patito Sweet on 08-12-2022 Potassium [Moles/Vol] 4.2 mmol/L 3.5-5.1 [facility] Serum or plasma sodium measu rement (moles/volume)Ordered By: Patito Sweet on 08-12-2022 Sodium [Moles/Vol] 142 mmol/L 136-146 [facility] Serum or plasma total carbon dioxide measurement (moles/volume)Ordered By: Patito Sweet on 08-12-2022 CO2 [Moles/Vol] 24.2 mmol/L 22.0-30.0 [facility] Serum or plasma urea nitroge n measurement (mass/volume)Ordered By: Patito Sweet on 08-12-2022 Urea nitrogen [Mass/Vol] 12 mg/dL 07-08 [facility] US KIDNEYS BLADDERon 022 US KIDNEYS BLADDER [...] by: MYRA PAREDES Date: 2022-06-08 08:34 Normal [facility] XR hip LT min 2V(w/wo pelvis )*on 02-16-2022 XR hip LT min 2V(w/wo pelvis)* [facility] [employer] Other XR hip LT min 2V(w/wo pelvis)* [facility] [place] [employer] Other XR hip LT min 2V(w/wo pelvis)* [address] [facility] [employer] Other XR hip LT min 2V(w/wo pelvis)* Lynda JONEL [id number] [employer] Other XR hip LT min 2V(w/wo pelvis)* XRay Report [employer] Other XR hip LT min 2V(w/wo pelvis)* Signed [employer] Other XR hip LT min 2V(w/wo pelvis)* Patient: Lima Loyd MR#: [id number] [employer] Other XR hip LT min 2V(w/wo pelvis)* [id number] [employer] Other XR hip LT min 2V(w/wo pelvis)* : 1965 Acct:[id number] [employer] Other XR hip LT min 2V(w/wo pelvis)* Age/Sex: 56 / M ADM Date: 02/16/22 [employer] Other XR hip LT min 2V(w/wo pelvis)* Loc: [facility] [place] Room: Type: [facility] [employer] Other XR hip LT min 2V(w/wo pelvis)* Attending Dr: Gaurav Higuera DO [employer] Other XR hip LT min 2V(w/wo pelvis)* Ordering Provider: Gaurav Higuera DO [employer] Other XR hip LT min 2V(w/wo pelvis)* Date of Service: 02/16/22 [employer] Other XR hip LT min 2V(w/wo pelvis)* XR/XR hip LT min 2V(w/wo pelvis)*: Acute pain of left hip [employer] Other XR hip LT min 2V(w/wo pelvis)* Copies to: Gaurav Higuera DO [employer] Other XR hip LT min 2V(w/wo pelvis)* 2 views LEFT hip single view pelvisplain film [employer] Other XR hip LT min 2V(w/wo pelvis)* COMPARISON:02/02/22 [employer] Other XR hip LT min 2V(w/wo pelvis)* HISTORY:LEFT hip pain for months [employer] Other XR hip LT min 2V(w/wo pelvis)* No fracture, dislocation or focal soft tissue abnormality seen.Hip joint space is adequate. [employer] Other XR hip LT min 2V(w/wo pelvis)* articular surfaces of the hips preserved. [employer] Other XR hip LT min 2V(w/wo pelvis)* XR/XR hip LT min 2V(w/wo pelvis)* [employer] Other XR hip LT min 2V(w/wo pelvis)* IMPRESSION:Unremarkable LEFT hip [employer] Other XR hip LT min 2V(w/wo pelvis)* Impression dictated by: Garrett Astudillo M.D.02/16/2022 2:21 PM [employer] Other XR hip LT min 2V(w/wo pelvis)* Dictation Location: [facility] [employer] Other XR hip LT min 2V(w/wo pelvis)* Transcribed By: ALDEN 02/16/22 [facility] [employer] Other XR hip LT min 2V(w/wo pelvis)* Dictated By: Garrett Astudillo DO 02/16/22 1411 [employer] Other XR hip LT min 2V(w/wo pelvis)* Signed By: [employer] Other XR hip LT min 2V(w/wo pelvis)* 02/16/22 1421 [employer] Other XR hip RT min 2V(w/wo pelvis )*on 02-02-2022 XR hip RT min 2V(w/wo pelvis)* [facility] [employer] Other XR hip RT min 2V(w/wo pelvis)* [facility] [place] [employer] Other XR hip RT min 2V(w/wo pelvis)* [address] [facility] [employer] Other XR hip RT min 2V(w/wo pelvis)* [place] [address] [employer] Other XR hip RT min 2V(w/wo pelvis)* XRay Report [employer] Other XR hip RT min 2V(w/wo pelvis)* Signed [employer] Other XR hip RT min 2V(w/wo pelvis)* Patient: Lima Loyd MR#: [id number] [employer] Other XR hip RT min 2V(w/wo pelvis)* [id number] [employer] Other XR hip RT min 2V(w/wo pelvis)* : 1965 Acct:[id number] [employer] Other XR hip RT min 2V(w/wo pelvis)* Age/Sex: 56 / M ADM Date: 02/02/22 [employer] Other XR hip RT min 2V(w/wo pelvis)* Loc: [facility] Room: Type: [facility] [employer] Other XR hip RT min 2V(w/wo pelvis)* Attending Dr: Gaurav Higuera DO [employer] Other XR hip RT min 2V(w/wo pelvis)* Ordering Provider: Gaurav Higuera DO [employer] Other XR hip RT min 2V(w/wo pelvis)* Date of Service: 02/02/22 [employer] Other XR hip RT min 2V(w/wo pelvis)* XR/XR hip RT min 2V(w/wo pelvis)*: Right hip pain [employer] Other XR hip RT min 2V(w/wo pelvis)* Copies to: Gaurav Higuera DO [employer] Other XR hip RT min 2V(w/wo pelvis)* Pelvis and right hip 02/02/2022. [employer] Other XR hip RT min 2V(w/wo pelvis)* CLINICAL DATA: Right hip pain. [employer] Other XR hip RT min 2V(w/wo pelvis)* FINDINGS: A single view of the pelvis and 2 views of the right hip were obtained. [employer] Other XR hip RT min 2V(w/wo pelvis)* The right and left acetabula appear shallow. No acute fracture or dislocation is identified. 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 No bony erosion or destruction is [employer] Other XR hip RT min 2V(w/wo pelvis)* visualized. There are postsurgical changes related to L4-L5 interbody fusion. [employer] Other XR hip RT min 2V(w/wo pelvis)* XR/XR hip RT min 2V(w/wo pelvis)* [employer] Other XR hip RT min 2V(w/wo pelvis)* IMPRESSION: Shallow acetabula. Mild degenerative changes. No acute bony abnormality. [employer] Other XR hip RT min 2V(w/wo pelvis)* Impression dictated by: Junito Sims Jr., M.D.02/02/2022 11:14 AM [employer] Other XR hip RT min 2V(w/wo pelvis)* Dictation Location: [place] [address] [employer] Other XR hip RT min 2V(w/wo pelvis)* Transcribed By: ALDEN 02/02/22 [facility] [employer] Other XR hip RT min 2V(w/wo pelvis)* Dictated By: Junito Sims Jr, MD 02/02/22 [facility] [employer] Other XR hip RT min 2V(w/wo pelvis)* Signed By: [employer] Other XR hip RT min 2V(w/wo pelvis)* 02/02/22 [facility] [employer] Other XR knee BI 2Von 02-02-2022 XR knee BI 2V 26573) XR/XR knee BI 2V: Z96.653 [employer] Other XR knee BI 2V BILATERAL KNEES - 2 views each [employer] Other XR knee BI 2V CLINICAL HISTORY: Follow-up bilateral TKA [employer] Other XR knee BI 2V COMPARISON: Knee ser ies 02/02/2021 [employer] Other XR knee BI 2V FINDINGS: Bilateral knee prostheses are in place without radiographic complication. No acute bony [employer] Other XR knee BI 2V process is seen. No joint effusions. [employer] Other XR knee BI 2V X R/XR knee BI 2V [employer] Other XR knee BI 2V IMPRESSION: [facility] [employer] Other XR knee BI 2V NO EVIDENCE OF HARDW ARE COMPLICATION. [employer] Other XR knee BI 2V Impression dictated by: Abad Perez Jr., D.O.02/02/2022 10:27 AM [employer] Other XR knee BI 2V Dictation Location: [place] [address] [employer] Other XR knee BI 2V Transcribed By: PWS 02/02/22 [facility] [employer] Other XR knee BI 2V Dictated By: Abad Perez Jr DO 02/02/22 [facility] [employer] Other XR knee BI 2V Signed By: [employer] Other XR knee BI 2V 02/02/22 [facility] [employer] Other Vital Signs Date Time Vital Sign Value Performing Clinician Facility 09-11-2024 13:49-0500 Body height 188 cm Venkat Brown DPM Work Phone: [facility] 09-11-2024 13:49-0500 Body mass index (BMI) [Ratio] 38.77 kg/m2 Venkat Brown DPM Work Phone: [facility] 09-11-2024 13:49-0500 Body weight 136.99 kg Venkat Brown DPM Work Phone: [facility] 09-11-2024 13:49-0500 Respiratory rate 18 /min Venkat Brown DPM Work Phone: [facility] 08-26-2024 09:24-0500 Body height 188 cm Venkat Brown DPM Work Phone: [facility] 08-26-2024 09:24-0500 Body mass index (BMI) [Ratio] 38.77 kg/m2 Venkat Brown DPM Work Phone: [facility] 08-26-2024 09:24-0500 Body weight 136.99 kg Venkat Brown DPM Work Phone: [facility] 08-26-2024 09:24-0500 Diastolic blood pressure 80 mm[Hg] Venkat Tyson DPM Work Phone: [facility] 08-26-2024 09:24-0500 Heart rate 82 /min Venkat Tyson DPM Work Phone: [facility] 08-26-2024 09:24-0500 Systolic blood pressure 131 mm[Hg] Venkat Tyson DPM Work Phone: [facility] 08-05-2024 09:16-0400 Body height 188 cm Venkat Paredes DPM Work Phone: [facility] 08-05-2024 09:16-0400 Body mass index (BMI) [Ratio] 38.77 kg/m2 Venkat Tyson DPM Work Phone: [facility] 08-05-2024 09:16-0400 Body weight 136.99 kg Venkat Tyson DPM Work Phone: [facility] 08-05-2024 09:16-0400 Diastolic blood pressure 80 mm[Hg] Venkat Tyson DPM Work Phone: [facility] 08-05-2024 09:16-0400 Heart rate 88 /min Venkat Tyson DPM Work Phone: [facility] 08-05-2024 09:16-0400 Systolic blood pressure 129 mm[Hg] Venkat Brown DPM Work Phone: [facility] 05-09-2024 09:50-0400 Blood Pressure Location Patito Lue [facility] 05-09-2024 09:50-0400 Body temperature 96.8 [degF] Patito Lue [facility] 05-09-2024 09:50-0400 Diastolic blood pressure 80 mm[Hg] Patito Lue [facility] 05-09-2024 09:50-0400 Heart rate 78 /min Patito Lue [facility] 05-09-2024 09:50-0400 Respiratory rate 19 /min Patito Lue [facility] 05-09-2024 09:50-0400 Systolic blood pressure 138 mm[Hg] Patito Lue [facility] 12-04-2023 08:47-0500 Body height 187.96 cm MD Jeff Terrell Work Phone: [facility] 12-04-2023 08:47-0500 Body mass index (BMI) [Ratio] 40.4 kg/m2 MD Jeff Terrell Work Phone: [facility] 12-04-2023 08:47-0500 Body weight 142.88 kg MD Jeff Terrell Work Phone: [facility] 11-03-2023 09:58-0500 Blood Pressure Location Patito Lue [facility] 11-03-2023 09:58-0500 Diastolic blood pressure 82 mm[Hg] Patito Lue [facility] 11-03-2023 09:58-0500 Heart rate 80 /min Patito Lue [facility] 11-03-2023 09:58-0500 Systolic blood pressure 128 mm[Hg] Patito Lue [facility] 10-30-2023 10:43-0500 Diastolic blood pressure 96 mm[Hg] MD Jeff Terrell Work Phone: [facility] 10-30-2023 10:43-0500 Heart rate 72 /min MD Jeff Terrell Work Phone: [facility] 10-30-2023 10:43-0500 Respiratory rate 18 /min MD Jeff Terrell Work Phone: [facility] 10-30-2023 10:43-0500 SaO2% (BldA) [Mass fraction] 93 % MD Jeff Terrell Work Phone: [facility] 10-30-2023 10:43-0500 Systolic blood pressure 154 mm[Hg] MD Jeff Terrell Work Phone: [facility] 10-30-2023 07:55-0500 Body height 187.96 cm MD Jeff Terrell Work Phone: [facility] 10-30-2023 07:55-0500 Body temperature 97.9 [degF] MD Jfef Terrell Work Phone: [facility] 10-30-2023 07:55-0500 Body weight 144.24 kg MD Jeff Terrell Work Phone: [facility] 10-25-2023 10:45-0500 Body height 187.96 cm MD Jeff Terrell Work Phone: [facility] 09-26-2023 11:58-0500 Diastolic blood pressure 82 mm[Hg] Patito Lue [facility] 09-26-2023 11:58-0500 Heart rate 72 /min Patito Lue [facility] 09-26-2023 11:58-0500 Mean blood pressure 104 mm[Hg] Patito Lue [facility] 09-26-2023 11:58-0500 Respiratory rate 18 /min Patito Lue [facility] 09-26-2023 11:58-0500 SaO2% (BldA) [Mass fraction] 96 % Patito Lue [facility] 09-26-2023 11:58-0500 Systolic blood pressure 148 mm[Hg] Patito Lue [facility] 09-26-2023 11:12-0500 Heart rate 80 /min Patito Lue [facility] 09-26-2023 11:12-0500 SaO2% (BldA) [Mass fraction] 94 % Patito Lue [facility] 09-26-2023 11:10-0500 Body temperature 97.7 [degF] Patito Lue [facility] 09-26-2023 11:10-0500 Respiratory rate 20 /min Patito Lue [facility] 09-26-2023 11:08-0500 Blood Pressure Location Patito Lue [facility] 09-26-2023 11:08-0500 Diastolic blood pressure 88 mm[Hg] Patito Lue [facility] 09-26-2023 11:08-0500 Mean blood pressure 112 mm[Hg] Patito Lue [facility] 09-26-2023 11:08-0500 Systolic blood pressure 160 mm[Hg] Patito Lue [facility] 09-26-2023 11:08-0500 Mean blood pressure 112 mm[Hg] Patito Lue [facility] 09-26-2023 11:00-0500 Body temperature 98.24 [degF] Patito Lue [facility] 09-26-2023 11:00-0500 Diastolic blood pressure 89 mm[Hg] Patito Lue [facility] 09-26-2023 11:00-0500 Heart rate 79 /min Patito Lue [facility] 09-26-2023 11:00-0500 Respiratory rate 11 /min Patito Lue [facility] 09-26-2023 11:00-0500 SaO2% (BldA) [Mass fraction] 93 % Patito Lue [facility] 09-26-2023 11:00-0500 Systolic blood pressure 157 mm[Hg] Patito Lue [facility] 09-26-2023 10:50-0500 Blood Pressure Location Patito Lue [facility] 09-26-2023 10:50-0500 Respiratory rate 10 /min Patito Lue [facility] 09-26-2023 10:45-0500 Respiratory rate 17 /min Patito Lue [facility] 09-26-2023 10:34-0500 Body temperature 97.7 [degF] Patito Lue [facility] 09-26-2023 10:30-0500 Respiratory rate 16 /min Patito Lue [facility] 09-26-2023 07:28-0500 Mean blood pressure 115 mm[Hg] Patito Lue [facility] 09-20-2023 11:00-0500 Body height Janine Maynard Other [employer] Other 09-20-2023 11:00-0500 Body height 187.96 cm MD Jeff Terrell Work Phone: [facility] 09-06-2023 08:45-0500 Body height Gaurav Higuera Other [facility] [employer] Other 09-06-2023 08:45-0500 Body height 187.96 cm MD Jeff Terrell Work Phone: [facility] 09-06-2023 08:45-0500 Body mass index (BMI) [Ratio] 39.8 kg/m2 Gaurav Higuera Other [facility] [employer] Other 09-06-2023 08:45-0500 Body weight 140.62 kg Gaurav Higuera Other [facility] [employer] Other 09-06-2023 08:45-0500 Body weight 140.61 kg MD Jeff Terrell Work Phone: [facility] 08-29-2023 13:10-0500 Diastolic blood pressure 86 mm[Hg] MD Jeff Terrell Work Phone: [facility] 08-29-2023 13:10-0500 Heart rate 71 /min MD Jeff Terrell Work Phone: [facility] 08-29-2023 13:10-0500 Respiratory rate 16 /min MD Jeff Terrell Work Phone: [facility] 08-29-2023 13:10-0500 SaO2% (BldA) [Mass fraction] 96 % MD Jeff Terrell Work Phone: [facility] 08-29-2023 13:10-0500 Systolic blood pressure 145 mm[Hg] MD Jeff Terrell Work Phone: [facility] 08-29-2023 12:25-0500 Inhaled oxygen flow rate 8 L/min MD Jeff Terrell Work Phone: [facility] 08-29-2023 11:16-0500 Body height 187.96 cm MD Jeff Terrell Work Phone: [facility] 08-29-2023 11:16-0500 Body mass index (BMI) [Ratio] 39.3 kg/m2 MD Jeff Terrell Work Phone: [facility] 08-29-2023 11:16-0500 Body weight 139 kg MD Jeff Terrell Work Phone: [facility] 08-29-2023 09:20-0500 Body temperature 98.5 [degF] MD Jeff Terrell Work Phone: [facility] 2023 15:32-0500 Body height 187.96 cm MD Jeff Terrell Work Phone: [facility] 2023 15:32-0500 Body temperature 98.6 [degF] MD Jeff Terrell Work Phone: [facility] 2023 15:32-0500 Body weight 139.25 kg MD Jeff Terrell Work Phone: [facility] 2023 15:32-0500 Diastolic blood pressure 92 mm[Hg] MD Jeff Terrell Work Phone: [facility] 2023 15:32-0500 Heart rate 83 /min MD Jeff Terrell Work Phone: [facility] 2023 15:32-0500 Respiratory rate 16 /min MD Jeff Terrell Work Phone: [facility] 2023 15:32-0500 SaO2% (BldA) [Mass fraction] 96 % MD Jeff Terrell Work Phone: [facility] 2023 15:32-0500 Systolic blood pressure 178 mm[Hg] MD Jeff Terrell Work Phone: [facility] 08-18-2023 10:14-0400 Diastolic blood pressure 81 mm[Hg] Patito Lue [facility] 08-18-2023 10:14-0400 Heart rate 72 /min Patito Lue [facility] 08-18-2023 10:14-0400 Systolic blood pressure 136 mm[Hg] Patito Sweet [facility] 06-30-2023 09:15-0400 Body height Gaurav Higuera Other [facility] [employer] Other 06-30-2023 09:15-0400 Body mass index (BMI) [Ratio] 36.84 kg/m2 Gaurav Higuera Other [facility] [employer] Other 06-30-2023 09:15-0400 Body weight 130.18 kg Gaurav Higuera Other [facility] [employer] Other 04-25-2023 10:43-0400 Diastolic blood pressure 95 mm[Hg] MD Jeff Terrell Work Phone: [facility] 04-25-2023 10:43-0400 Heart rate 71 /min MD Jeff Terrell Work Phone: [facility] 04-25-2023 10:43-0400 Respiratory rate 16 /min MD Jeff Terrell Work Phone: [facility] 04-25-2023 10:43-0400 SaO2% (BldA) [Mass fraction] 95 % MD Jeff Terrell Work Phone: [facility] 04-25-2023 10:43-0400 Systolic blood pressure 146 mm[Hg] MD Jeff Terrell Work Phone: [facility] 04-25-2023 10:13-0400 Inhaled oxygen flow rate 6 L/min MD Jeff Terrell Work Phone: [facility] 04-25-2023 09:01-0400 Body mass index (BMI) [Ratio] 39.4 kg/m2 MD Jeff Terrell Work Phone: [facility] 04-25-2023 08:57-0400 Body height 187.96 cm MD Jeff Terrell Work Phone: [facility] 04-25-2023 08:57-0400 Body weight 139.25 kg MD Jeff Terrell Work Phone: [facility] 04-25-2023 08:17-0400 Body temperature 97.6 [degF] MD Jeff Terrell Work Phone: [facility] 03-24-2023 09:45-0400 Body height Gaurav Higuera Other [employer] Other 03-24-2023 09:45-0400 Body mass index (BMI) [Ratio] 36.84 kg/m2 Gaurav Higuera Other [employer] Other 03-24-2023 09:45-0400 Body weight 130.18 kg Gaurav Higuera Other [employer] Other 03-14-2023 15:16-0400 Diastolic blood pressure 88 mm[Hg] MD Jeff Terrell Work Phone: [facility] 03-14-2023 15:16-0400 Heart rate 76 /min MD Jeff Terrell Work Phone: [facility] 03-14-2023 15:16-0400 Respiratory rate 16 /min MD Jeff Terrell Work Phone: [facility] 03-14-2023 15:16-0400 SaO2% (BldA) [Mass fraction] 98 % MD Jeff Terrell Work Phone: [facility] 03-14-2023 15:16-0400 Systolic blood pressure 159 mm[Hg] MD Jeff Terrell Work Phone: [facility] 03-14-2023 14:32-0400 Inhaled oxygen flow rate 6 L/min MD Jeff Terrell Work Phone: [facility] 03-14-2023 13:27-0400 Body height 187.96 cm MD Jeff Terrell Work Phone: [facility] 03-14-2023 13:27-0400 Body weight 139.25 kg MD Jeff Terrell Work Phone: [facility] 03-14-2023 13:21-0400 Body mass index (BMI) [Ratio] 17.9 kg/m2 MD Jeff Terrell Work Phone: [facility] 03-14-2023 11:29-0400 Body temperature 98.5 [degF] MD Jeff Terrell Work Phone: [facility] 02-24-2023 12:15-0400 Body height Gaurav Higuera Other [facility] [employer] Other 02-24-2023 12:15-0400 Body mass index (BMI) [Ratio] 36.84 kg/m2 Gaurav Higuera Other [facility] [employer] Other 02-24-2023 12:15-0400 Body weight 130.18 kg Gaurav Higuera Other [facility] [employer] Other 02-07-2023 17:15-0400 Body height Tomi Leach Other [facility] [employer] Other 01-30-2023 14:03-0400 Body height 187.96 cm MD Jeff Terrell Work Phone: [facility] 01-30-2023 14:03-0400 Body temperature 97.8 [degF] MD Jeff Terrell Work Phone: [facility] 01-30-2023 14:03-0400 Body weight 138 kg MD Jeff Terrell Work Phone: [facility] 01-30-2023 14:03-0400 Diastolic blood pressure 92 mm[Hg] MD Jeff Terrell Work Phone: [facility] 01-30-2023 14:03-0400 Heart rate 86 /min MD Jeff Terrell Work Phone: [facility] 01-30-2023 14:03-0400 Respiratory rate 18 /min MD Jeff Terrell Work Phone: [facility] 01-30-2023 14:03-0400 SaO2% (BldA) [Mass fraction] 95 % MD Jeff Terrell Work Phone: [facility] 01-30-2023 14:03-0400 Systolic blood pressure 186 mm[Hg] MD Jeff Terrell Work Phone: [facility] 12-21-2022 07:41-0500 Blood Pressure Location Patito Lue [facility] 12-21-2022 07:41-0500 Diastolic blood pressure 87 mm[Hg] Patito Lue [facility] 12-21-2022 07:41-0500 Heart rate 72 /min Patito Lue [facility] 12-21-2022 07:41-0500 Systolic blood pressure 137 mm[Hg] Patito Lue [facility] 11-29-2022 15:53-0500 Diastolic blood pressure 91 mm[Hg] MD Jeff Terrell Work Phone: [facility] 11-29-2022 15:53-0500 Heart rate 95 /min MD Jeff Terrell Work Phone: [facility] 11-29-2022 15:53-0500 Respiratory rate 16 /min MD Jeff Terrell Work Phone: [facility] 11-29-2022 15:53-0500 SaO2% (BldA) [Mass fraction] 93 % MD Jeff Terrell Work Phone: [facility] 11-29-2022 15:53-0500 Systolic blood pressure 142 mm[Hg] MD Jeff Terrell Work Phone: [facility] 11-29-2022 15:00-0500 Body temperature 97.2 [degF] MD Jeff Terrell Work Phone: [facility] 11-29-2022 14:35-0500 Inhaled oxygen flow rate 8 L/min MD Jeff Terrell Work Phone: [facility] 11-29-2022 12:37-0500 Body height 187.96 cm MD Jeff Terrell Work Phone: [facility] 11-29-2022 12:37-0500 Body mass index (BMI) [Ratio] 38.1 kg/m2 MD Jeff Terrell Work Phone: [facility] 11-29-2022 12:37-0500 Body weight 134.71 kg MD Jeff Terrell Work Phone: [facility] 11-29-2022 00:00-0500 Body weight 533 mg MD Jeff Terrell Work Phone: [facility] 11-24-2022 10:00-0500 Body height Tomi Leach Other [employer] [facility] [employer] Other 11-24-2022 10:00-0500 Body mass index (BMI) [Ratio] 36.84 kg/m2 Tomi Leach Other [employer] Other 11-24-2022 10:00-0500 Body weight 130.18 kg Tomi Leach Other [employer] Other 11-02-2022 09:55-0500 Diastolic blood pressure 94 mm[Hg] MD Jeff Terrell Work Phone: [facility] 11-02-2022 09:55-0500 Heart rate 61 /min MD Jeff Terrell Work Phone: [facility] 11-02-2022 09:55-0500 Respiratory rate 18 /min MD Jeff Terrell Work Phone: [facility] 11-02-2022 09:55-0500 SaO2% (BldA) [Mass fraction] 96 % MD Jeff Terrell Work Phone: [facility] 11-02-2022 09:55-0500 Systolic blood pressure 153 mm[Hg] MD Jeff Terrell Work Phone: [facility] 11-02-2022 08:12-0500 Body height 187.96 cm MD Jeff Terrell Work Phone: [facility] 11-02-2022 08:12-0500 Body weight 134.71 kg MD Jeff Terrell Work Phone: [facility] 09-30-2022 16:42-0500 Body height 187.96 cm MD Jeff Terrell Work Phone: [facility] 09-30-2022 16:42-0500 Body mass index (BMI) [Ratio] 38.5 kg/m2 MD Jeff Terrell Work Phone: [facility] 09-30-2022 16:42-0500 Body weight 136.07 kg MD Jeff Terrell Work Phone: [facility] 09-30-2022 14:40-0500 Diastolic blood pressure 96 mm[Hg] MD Jeff Terrell Work Phone: [facility] 09-30-2022 14:40-0500 Heart rate 64 /min MD Jeff Terrell Work Phone: [facility] 09-30-2022 14:40-0500 Respiratory rate 18 /min MD Jeff Terrell Work Phone: [facility] 09-30-2022 14:40-0500 SaO2% (BldA) [Mass fraction] 96 % MD Jeff Terrell Work Phone: [facility] 09-30-2022 14:40-0500 Systolic blood pressure 148 mm[Hg] MD Jeff Terrell Work Phone: [facility] 09-30-2022 10:48-0500 Body height 187.96 cm MD Jeff Terrell Work Phone: [facility] 09-30-2022 10:48-0500 Body temperature 98.1 [degF] MD Jeff Terrell Work Phone: [facility] 09-30-2022 10:48-0500 Body weight 136.07 kg MD Jeff Terrell Work Phone: [facility] 09-21-2022 08:22-0500 Blood Pressure Location Patito Lue [facility] 09-21-2022 08:22-0500 Diastolic blood pressure 80 mm[Hg] Patito Lue [facility] 09-21-2022 08:22-0500 Heart rate 64 /min Patito Lue [facility] 09-21-2022 08:22-0500 Respiratory rate 16 /min Patito Lue [facility] 09-21-2022 08:22-0500 Systolic blood pressure 125 mm[Hg] Patito Lue [facility] 08-23-2022 17:13-0500 Diastolic blood pressure 94 mm[Hg] MD Jeff Terrell Work Phone: [facility] 08-23-2022 17:13-0500 Heart rate 70 /min MD Jeff Terrell Work Phone: [facility] 08-23-2022 17:13-0500 Respiratory rate 16 /min MD Jeff Terrell Work Phone: [facility] 08-23-2022 17:13-0500 SaO2% (BldA) [Mass fraction] 95 % MD Jeff Terrell Work Phone: [facility] 08-23-2022 17:13-0500 Systolic blood pressure 148 mm[Hg] MD Jeff Terrell Work Phone: [facility] 08-23-2022 16:16-0500 Body height 187.96 cm MD Jeff Terrell Work Phone: [facility] 08-23-2022 16:16-0500 Body mass index (BMI) [Ratio] 38.2 kg/m2 MD Jeff Terrell Work Phone: [facility] 08-23-2022 16:16-0500 Body weight 135.3 kg MD Jeff Terrell Work Phone: [facility] 08-23-2022 12:17-0500 Body temperature 99.4 [degF] MD Jeff Terrell Work Phone: [facility] 08-11-2022 09:20-0400 Body height Ramiro George Other ethology [facility] [employer] Other 08-11-2022 09:20-0400 Body mass index (BMI) [Ratio] 37.49 kg/m2 Ramiro George Other [employer] Other 08-11-2022 09:20-0400 Body weight 132.45 kg Ramiro George Other ethology [facility] [employer] Other 08-10-2022 09:49-0400 Blood Pressure Location Patito Lue [facility] 08-10-2022 09:49-0400 Diastolic blood pressure 87 mm[Hg] Patito Lue [facility] 08-10-2022 09:49-0400 Heart rate 76 /min Patito Lue [facility] 08-10-2022 09:49-0400 Respiratory rate 16 /min Patito Lue [facility] 08-10-2022 09:49-0400 Systolic blood pressure 134 mm[Hg] Patito Lue [facility] 08-02-2022 15:15-0400 Body height Tomi Leach Other [facility] [employer] Other 07-26-2022 08:48-0400 Diastolic blood pressure 85 mm[Hg] MD Jeff Terrell Work Phone: [facility] 07-26-2022 08:48-0400 Heart rate 69 /min MD Jeff Terrell Work Phone: [facility] 07-26-2022 08:48-0400 Respiratory rate 16 /min MD Jeff Terrell Work Phone: [facility] 07-26-2022 08:48-0400 SaO2% (BldA) [Mass fraction] 95 % MD Jeff Terrell Work Phone: [facility] 07-26-2022 08:48-0400 Systolic blood pressure 137 mm[Hg] MD Jeff Terrell Work Phone: [facility] 07-26-2022 08:05-0400 Inhaled oxygen flow rate 3 L/min MD Jeff Terrell Work Phone: [facility] 07-26-2022 06:41-0400 Body height 187.96 cm MD Jeff Terrell Work Phone: [facility] 07-26-2022 06:41-0400 Body weight 130.18 kg MD Jeff Terrell Work Phone: [facility] 07-12-2022 08:29-0400 Blood Pressure Location Patito Lue [facility] 07-12-2022 08:29-0400 Diastolic blood pressure 84 mm[Hg] Patito Lue [facility] 07-12-2022 08:29-0400 Heart rate 72 /min Patito Lue [facility] 07-12-2022 08:29-0400 Systolic blood pressure 136 mm[Hg] Patito Lue [facility] 06-23-2022 12:14-0400 Diastolic blood pressure 83 mm[Hg] Ronak Zumbar [facility] 06-23-2022 12:14-0400 Heart rate 60 /min Ronak Zumbar [facility] 06-23-2022 12:14-0400 Mean blood pressure 104 mm[Hg] Ronak Zumbar [facility] 06-23-2022 12:14-0400 Respiratory rate 16 /min Ronak Zumbar [facility] 06-23-2022 12:14-0400 Systolic blood pressure 146 mm[Hg] Ronak Zumbar [facility] 06-14-2022 10:42-0400 Diastolic blood pressure 62 mm[Hg] MD Jeff Terrell Work Phone: [facility] 06-14-2022 10:42-0400 Heart rate 65 /min MD Jeff Terrell Work Phone: [facility] 06-14-2022 10:42-0400 Respiratory rate 20 /min MD Jeff Terrell Work Phone: [facility] 06-14-2022 10:42-0400 SaO2% (BldA) [Mass fraction] 98 % MD Jeff Terrell Work Phone: [facility] 06-14-2022 10:42-0400 Systolic blood pressure 150 mm[Hg] MD Jeff Terrell Work Phone: [facility] 06-14-2022 10:01-0400 Inhaled oxygen flow rate 3 L/min MD Jeff Terrell Work Phone: [facility] 06-14-2022 08:29-0400 Body height 187.96 cm MD Jeff Terrell Work Phone: [facility] 06-14-2022 08:29-0400 Body weight 130.18 kg MD Jeff Terrell Work Phone: [facility] 05-26-2022 10:12-0400 Diastolic blood pressure 66 mm[Hg] Ronak Zumbar [facility] 05-26-2022 10:12-0400 Heart rate 70 /min Ronak Zumbar [facility] 05-26-2022 10:12-0400 Mean blood pressure 83 mm[Hg] Ronak Zumbar [facility] 05-26-2022 10:12-0400 Respiratory rate 16 /min Ronak Zumbar [facility] 05-26-2022 10:12-0400 Systolic blood pressure 118 mm[Hg] Ronak Zumbar [facility] 05-09-2022 10:30-0400 Body height Gaurav Davida Other [facility] [employer] Other 05-09-2022 10:30-0400 Body mass index (BMI) [Ratio] 37.23 kg/m2 Gaurav Higuera Other [employer] Other 05-09-2022 10:30-0400 Body weight 131.54 kg Gaurav Higuera Other [employer] Other 03-16-2022 13:00-0400 Body height Gaurav Higuera Other [employer] Other 02-16-2022 15:00-0400 Body height Gaurav Higuera Other [employer] Other 02-16-2022 15:00-0400 Body mass index (BMI) [Ratio] 39.54 kg/m2 Gaurav Higuera Other [employer] Other 02-16-2022 15:00-0400 Body weight 139.71 kg Gaurav Higuera Other [employer] Other 02-02-2022 09:15-0400 Body height Gaurav Higuera Other [employer] Other 02-02-2022 09:15-0400 Body mass index (BMI) [Ratio] 39.54 kg/m2 Gaurav Higuera Other [employer] Other 02-02-2022 09:15-0400 Body weight 139.71 kg Gaurav Higuera Other [employer] Other Encounters Encounter Date Encounter Type Care Provider Facility Start: 11-08-2024 ambulatory Patito Sweet Facility:[facility] Start: 09-11-2024 End: 09-11-2024 Office outpatient visit 15 minutes Venkat Paredes DPM Work Phone: [facility] Comment on above: Paronychia, toe, lef t (Primary Dx); Paronychia, toe, right Start: 09-11-2024 End: 09-11-2024 Bamboo flowsheet Venkat Paredes DPM Work Phone: [facility] Start: 09-11-2024 End: 09-11-2024 Bamboo flowsheet Venkat Paredes DPM Work Phone: [facility] Start: 08-26-2024 End: 08-26-2024 Bamboo flowsheet Venkat Paredes DPM Work Phone: [facility] Start: 08-26-2024 End: 08-26-2024 Bamboo flowsheet Venkat Paredes DPM Work Phone: [facility] Start: 08-26-2024 End: 08-26-2024 Office outpatient visit 25 minutes Venkat Paredes DPM Work Phone: [facility] Comment on above: Paronychia, toe, lef t (Primary Dx); Paronychia, toe, right Start: 08-26-2024 End: 08-26-2024 ambulatory VENKAT PAREDES Not Available Start: 08-20-2024 End: 08-20-2024 External Result Encounter Venkat Paredes DPM Work Phone: [facility] Unsolicited Start: 08-20-2024 End: 08-20-2024 External Result Encounter Venkat Paredes DPM Work Phone: [facility] Unsolicited Start: 08-20-2024 End: 08-20-2024 Patient encounter procedure MD Jeff Terrell Work Phone: [facility] Work Phone: Start: 08-20-2024 End: 08-20-2024 ambulatory MD Jeff Terrell Work Phone: [facility] Work Phone: Start: 08-05-2024 End: 08-05-2024 Bamboo flowsheet Venkat Paredes DPM Work Phone: [facility] Start: 08-05-2024 End: 08-05-2024 Bamboo flowsheet Venkat Paredes DPM Work Phone: [facility] Start: 08-05-2024 End: 08-05-2024 ambulatory VENKAT PAREDES Not Available Start: 08-05-2024 End: 08-05-2024 Office outpatient new 30 minutes Venkat Paredes DPM Work Phone: [facility] Comment on above: 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 (Primary Dx); Plantar fasciitis; Paronychia, toe, left; Paronychia, toe, right Start: 07-08-2024 End: 07-08-2024 ambulatory MD Jeff Terrell Work Phone: [facility] Work Phone: Start: 07-08-2024 End: 07-08-2024 Discharged Recurring MD Jeff Terrell Work Phone: [facility]Physical [facility] [place] Start: 06-12-2024 End: 06-12-2024 ambulatory MD Jeff Terrell Work Phone: [facility] Work Phone: Start: 06-12-2024 End: 06-12-2024 Patient encounter procedure MD Jeff Terrell Work Phone: [facility] Work Phone: Start: 06-06-2024 Registered Recurring MD Bernie Terrell Work Phone: [facility] [place] Start: 05-20-2024 End: 05-20-2024 ambulatory MD Jeff Terrell Work Phone: [facility] Work Phone: Start: 05-20-2024 End: 05-20-2024 Patient encounter procedure MD Jeff Terrell Work Phone: [facility] Work Phone: Start: 05-09-2024 End: 05-09-2024 ambulatory Patito Sweet Facility:[facility] Start: 05-09-2024 End: 05-09-2024 Patient encounter procedure Patito Sweet [facility] Start: 05-07-2024 End: 05-07-2024 Patient encounter procedure MD Jeff Terrell Work Phone: [facility] [place] Work Phone: Start: 05-07-2024 End: 05-07-2024 ambulatory MD Jeff Terrell Work Phone: [facility] Work Phone: Start: 04-29-2024 End: 04-29-2024 ambulatory MD Jeff Terrell Work Phone: [facility] Work Phone: Start: 04-29-2024 End: 04-29-2024 Patient encounter procedure MD Jeff Terrell Work Phone: [facility] Work Phone: Start: 03-13-2024 End: 03-13-2024 ambulatory MD Jeff Terrell Work Phone: [facility] Work Phone: Start: 03-13-2024 End: 03-13-2024 Patient encounter procedure MD Jeff Terrell Work Phone: [facility] Work Phone: Start: 03-13-2024 End: 03-13-2024 Patient encounter procedure MD Jeff Terrell Work Phone: [facility] [place] [facility] Start: 03-13-2024 End: 03-13-2024 ambulatory MD Jeff Terrell Work Phone: [facility] Work Phone: Start: 02-19-2024 End: 02-19-2024 ambulatory MD Jeff Terrell Work Phone: [facility] Work Phone: Start: 02-19-2024 End: 02-19-2024 Patient encounter procedure MD [facility] Work [facility] Start: 02-19-2024 Non-patient / Non-visit [facility] Work Phone: Start: 02-01-2024 End: 02-01-2024 ambulatory MD Jeff Terrell Work Phone: [facility] Work Phone: Start: 02-01-2024 End: 02-01-2024 Patient encounter procedure MD Jeff Terrell Work Phone: [facility] Work Phone: Start: 01-10-2024 End: 01-10-2024 ambulatory MD Jeff Terrell Work Phone: [facility] Work Phone: Start: 01-10-2024 End: 01-10-2024 Patient encounter procedure MD Jeff Terrell Work Phone: [facility] Work Phone: Start: 12-18-2023 End: 12-18-2023 ambulatory [facility] Facility:[facility] Start: 12-06-2023 End: 12-06-2023 ambulatory MD Jeff Terrell Work Phone: [facility] Work Phone: Start: 12-06-2023 End: 12-06-2023 Patient encounter procedure MD Jeff Terrell Work Phone: [facility] Work Phone: Start: 12-04-2023 End: 12-04-2023 Patient encounter procedure MD Jeff Terrell Work Phone: [facility] Work Phone: Start: 12-04-2023 End: 12-04-2023 ambulatory MD Jeff Terrell Work Phone: [facility] Work Phone: Start: 12-04-2023 Registered Recurring MD Bernie Terrell Work Phone: [facility] [place] Start: 11-23-2023 End: 11-23-2023 Patient encounter procedure MD Jeff Terrell Work Phone: [facility] [place] Work Phone: Start: 11-23-2023 End: 11-23-2023 ambulatory Jeff Terrell Facility:[facility] Start: 11-10-2023 End: 11-10-2023 ambulatory Melissa Castellano Other [employer] Other Start: 11-10-2023 Encounter for other preprocedural examination Melissalaura Castellano [facility] Start: 11-10-2023 Postop follow up vis it related to original px Melissa Castellano [facility] Start: 11-03-2023 End: 11-03-2023 ambulatory Patito Sweet Facility:[facility] Start: 11-03-2023 End: 11-03-2023 Patient encounter procedure Patito Sweet [facility] Start: 10-30-2023 End: 10-30-2023 Admission to same day surgery center MD Jeff Terrell Work Phone: [facility] [place] Start: 10-30-2023 End: 10-30-2023 ambulatory MD Jeff Terrell Work Phone: [facility] Work Phone: Start: 10-25-2023 End: 10-25-2023 ambulatory Melissa Castellano Other [employer] Other Start: 10-25-2023 Encounter for other preprocedural examination Melissalaura Castellano [facility] Start: 10-25-2023 Office outpatient ne w 45 minutes Melissa Castellano [facility] Start: 10-25-2023 Telephone encounter Melissa Sky [facility] Start: 10-25-2023 End: 10-25-2023 Patient encounter procedure MD Jeff Terrell Work Phone: [facility] [place] Work Phone: Start: 09-26-2023 End: 09-26-2023 Admission to same day surgery center Patito Sweet [facility] Start: 09-26-2023 End: 09-26-2023 ambulatory Patito Sweet Facility:[facility] Start: 09-20-2023 End: 09-20-2023 ambulatory Janine Maynard Other [employer] Other Start: 09-20-2023 Office outpatient vi sit 15 minutes Janine Maynard [facility] Start: 09-20-2023 End: 09-20-2023 Patient encounter procedure MD Jeff Terrell Work Phone: [facility] Work Phone: Start: 09-15-2023 End: 09-15-2023 Patient encounter procedure MD Jeff Terrell Work Phone: [facility] Work Phone: Start: 09-15-2023 End: 09-15-2023 ambulatory MD Jeff Terrell Work Phone: [facility] Work Phone: Start: 09-06-2023 End: 09-06-2023 ambulatory Gaurav Higuera Other [employer] Other Start: 09-06-2023 Postop follow up vis it related to original px Gaurav Higuera [facility] Start: 09-06-2023 End: 09-06-2023 Patient encounter procedure MD Jeff Terrell Work Phone: [facility] [place] Work Phone: Start: 08-29-2023 End: 08-29-2023 Admission to same day surgery center MD Jeff Terrell Work Phone: [facility] [place] Start: 08-29-2023 End: 08-29-2023 ambulatory MD Jeff Terrell Work Phone: [facility] Work Phone: Start: 2023 End: 2023 Emergency department patient visit MD Jeff Terrell Work Phone: [facility]-Emergency Room Work Phone: Start: 08-21-2023 Registered Recurring MD Bernie Terrell Work Phone: [facility] [place] Start: 08-18-2023 End: 08-18-2023 ambulatory Patito Sweet Facility:[facility] Start: 08-18-2023 End: 08-18-2023 Patient encounter procedure Patito Sweet [facility] Start: 08-15-2023 End: 08-15-2023 ambulatory MD Jeff Terrell Work Phone: [facility] Work Phone: Start: 08-15-2023 End: 08-15-2023 Patient encounter procedure MD Jeff Terrell Work Phone: [facility]-Pre-Surgical Testing Work Phone: Start: 07-26-2023 End: 07-26-2023 ambulatory Gaurav Higuera Other [employer] Other Start: 07-26-2023 Office outpatient vi sit 25 minutes Gaurav Higuera [facility] Start: 07-24-2023 End: 07-24-2023 ambulatory MD Jeff Terrell Work Phone: [facility] Work Phone: Start: 07-24-2023 End: 07-24-2023 Discharged Recurring MD Jeff Terrell Work Phone: [facility] [place] Start: 07-24-2023 Registered Recurring MD Bernie Terrell Work Phone: [facility] [place] Start: 07-20-2023 Registered Recurring MD Bernie Terrell Work Phone: [facility] [place] Start: 07-13-2023 End: 07-13-2023 ambulatory JANINE GARCIA Facility:[facility] [place] Start: 07-13-2023 End: 07-13-2023 Patient encounter procedure JANINE GARCIA [facility] [place] Start: 07-11-2023 ambulatory Patito Sweet Facility:[facility] [place] Start: 07-11-2023 End: 07-11-2023 ambulatory Patito Sweet Facility:CD:[id number] Start: 07-06-2023 End: 07-06-2023 ambulatory Tomi Leach Other [employer] Other Start: 07-06-2023 Office outpatient vi sit 15 minutes Tomi Leach [facility] [place] Start: 06-30-2023 End: 06-30-2023 ambulatory Gaurav Higuera Other [employer] Other Start: 06-30-2023 Office outpatient vi sit 25 minutes Gaurav Higuera [facility] Start: 06-12-2023 End: 06-12-2023 ambulatory Gaurav Higuera Other [employer] Other Start: 06-12-2023 Postop follow up vis it related to original px Gaurav Higuera [facility] Start: 06-07-2023 (Procedure) Short Tomi Leach [facility] Start: 06-07-2023 End: 06-07-2023 ambulatory Tomi Leach Other [facility] [employer] Other Start: 05-31-2023 End: 05-31-2023 ambulatory Patito Sweet Facility:[facility] Start: 05-31-2023 End: 05-31-2023 Patient encounter procedure Patito Sweet [facility] Start: 05-25-2023 Telephone encounter Tomi [facility] Start: 05-25-2023 End: 05-25-2023 ambulatory MD Jeff Terrell Work Phone: [facility] Work Phone: Start: 05-25-2023 End: 05-25-2023 Patient encounter procedure MD Jeff Terrell Work Phone: [facility] [place] [facility] Start: 04-25-2023 End: 04-25-2023 Admission to same day surgery center MD Jeff Terrell Work Phone: [facility] [place] Start: 04-25-2023 End: 04-25-2023 ambulatory MD Jeff Terrell Work Phone: [facility] Work Phone: Start: 03-31-2023 End: 03-31-2023 ambulatory MD Jeff Terrell Work Phone: [facility] Work Phone: Start: 03-31-2023 End: 03-31-2023 Patient encounter procedure MD Jeff Terrell Work Phone: [facility] [place] Work Phone: Start: 03-24-2023 End: 03-24-2023 ambulatory Gaurav Higuera Other [employer] Other Start: 03-24-2023 Encounter for other preprocedural examination Gaurav Higuera [facility] Start: 03-24-2023 Office outpatient vi sit 25 minutes Gaurav Higuera [facility] [place] Start: 03-14-2023 End: 03-14-2023 Admission to same day surgery center MD Jeff Terrell Work Phone: [facility] [place] Start: 03-14-2023 End: 03-14-2023 ambulatory MD Jeff Terrell Work Phone: [facility] Work Phone: Start: 03-03-[address] JEFF TERRELL . Facili ty:[facility] Start: 02-28-2023 End: 02-28-2023 ambulatory MD Jeff Terrell Work Phone: [facility] Work Phone: Start: 02-28-2023 End: 02-28-2023 Patient encounter procedure MD Jeff Terrell Work Phone: [facility]Pre-Surgical Testing Work Phone: Start: 02-24-2023 End: 02-24-2023 ambulatory Gaurav Higuera Other [employer] Other Start: 02-24-2023 Office outpatient vi sit 25 minutes Guarav Higuera [facility] Start: 02-07-2023 End: 02-07-2023 ambulatory Tomi Leach Other [employer] Other Start: 02-07-2023 Office outpatient vi sit 25 minutes Tomi Leach [facility] [place] Start: 02-07-2023 Telephone encounter Tomi Leach [facility] Start: 02-01-2023 End: 02-01-2023 ambulatory Gaurav Higuera Other [employer] Other Start: 02-01-2023 Office outpatient vi sit 25 minutes Gaurav How[facility] Start: 01-30-2023 End: 01-30-2023 Emergency department patient visit MD Jeff Terrell Work Phone: [facility]-Emergency Room Work Phone: Start: 01-16-2023 End: 01-16-2023 Patient encounter procedure Patito M. Lue [facility] Start: 01-11-2023 End: 01-11-2023 ambulatory SRIDHAR MCLAUGHLIN Facility:[facility] Start: 01-07-2023 Encounter for preprocedural laboratory examination PATITO Martinez LUE . [facility] Start: 01-06-2023 End: 01-06-2023 Patient encounter procedure Jeff Terrell [facility] Start: 12-30-2022 End: 12-31-2022 ambulatory PATITO Martinez LUE . Facility:[facility] Start: 12-30-2022 End: 12-31-2022 Encounter for preprocedural laboratory examination PATITO Martinez LUE . Facility:[facility] Start: 12-21-2022 End: 12-21-2022 Patient encounter procedure Patito M. Lue [facility] Start: 12-14-2022 End: 12-15-[address] MYRA SHAFFER Facility:[facility] Start: 11-29-2022 End: 11-29-2022 Admission to same day surgery center MD Jeff Terrell Work Phone: [facility] [place] Start: 11-29-2022 End: 11-29-2022 ambulatory MD Jeff Terrell Work Phone: [facility] Work Phone: Start: 11-24-2022 End: 11-24-2022 ambulatory Tomi Talaveraoni Other [employer] Other Start: 11-24-2022 Office outpatient vi sit 25 minutes Tomi Leach [facility] [place] Start: 11-24-2022 Telephone encounter Tomi Leach [facility] [place] Start: 11-08-2022 End: 11-08-2022 Patient encounter procedure Pritesh Kennedi HOLLOWAY [facility] [place] Start: 11-04-2022 End: 11-04-2022 Patient encounter procedure Patito Sweet [facility] [place] Start: 11-02-2022 End: 11-02-2022 Admission to same day surgery center MD Jeff Terrell Work Phone: [facility]CT [facility] [place] Work Phone: Start: 11-02-2022 End: 11-02-2022 ambulatory MD Jeff Terrell Work Phone: [facility] Work Phone: Start: 10-26-2022 End: 10-26-2022 Lab Drop off Patito Sweet [facility] Start: 10-26-2022 End: 10-26-2022 Patient encounter procedure Patito Sweet [facility] [place] Start: 10-21-2022 End: 10-21-2022 Patient encounter procedure Patito Sweet [facility] [place] Start: 10-21-2022 End: 10-22-2022 ambulatory LIMA CAMPOS Facility:[facility] Start: 10-05-2022 End: 10-06-[address] RIVAS KINCAID Facility:[facility] Start: 09-30-2022 End: 09-30-2022 Admission to same day surgery center MD Jeff Terrell [facility] [place] Start: 09-30-2022 End: 09-30-2022 ambulatory MD Jeff Terrell Work Phone: [facility] Work Phone: Start: 09-29-2022 End: 09-30-[address] JEFF TERRELL . Facility:[facility] Start: 09-28-2022 End: 09-29-[address] RIVAS KINCAID Facility:[facility] Start: 09-21-2022 End: 09-21-2022 Lab Drop off Patito Sweet [facility] Start: 09-21-2022 End: 09-21-2022 Patient encounter procedure Patito Sweet [facility] Start: 09-20-2022 End: 09-21-[address] JEFF TERRELL . Facility:[facility] Start: 08-29-2022 End: 08-29-2022 ambulatory Tomi Leach Other [employer] Other Start: 08-29-2022 Telephone encounter Tomi Maguire [facility] Start: 08-23-2022 End: 08-23-2022 Admission to same day surgery center MD Jeff [facility]rell [facility] [place] Start: 08-23-2022 End: 08-23-2022 ambulatory MD Jeff Terrell Work Phone: [facility] Work Phone: Start: 08-19-2022 End: 08-19-2022 ambulatory MD Jeff Terrell Work Phone: [facility] Work Phone: Start: 08-19-2022 End: 08-19-2022 Patient encounter procedure MD Jeff Terrell Work Phone: [facility]-Pre-Surgical Testing Start: 08-15-2022 End: 08-15-2022 ambulatory Tomi Leach Other [employer] Other Start: 08-15-2022 Office outpatient vi sit 25 minutes Tomi Leach [facility] Start: 08-12-2022 End: 08-12-2022 ambulatory MD Jeff Terrell Work Phone: [facility] Work Phone: Start: 08-12-2022 End: 08-12-2022 Patient encounter procedure MD Jeff Terrell Work Phone: [facility]Pre-Surgical Testing Start: 08-11-2022 End: 08-11-2022 ambulatory Ramiro George Other [employer] Other Start: 08-11-2022 Office outpatient ne w 30 minutes Ramiro George [facility] [place], operated by [facility] Start: 08-11-2022 Telephone encounter Ramiro George [facility] [employer] Start: 08-10-2022 End: 08-10-2022 Patient encounter procedure Patito Sweet [facility] Start: 08-08-2022 End: 08-08-2022 ambulatory Tomi Leach Other [employer] Other Start: 08-08-2022 Telephone encounter Tomi Leach [facility] Start: 08-03-2022 End: 08-03-2022 ambulatory MD Jeff Terrell Work Phone: [facility] Work Phone: Start: 08-03-2022 End: 08-03-2022 Patient encounter procedure MD Jeff Terrell Work Phone: [facility]CT [facility] [place] Start: 08-02-2022 End: 08-02-2022 ambulatory Tomi Leach Other [employer] Other Start: 08-02-2022 Office outpatient vi sit 25 minutes Tomi Leach [facility] Start: 07-26-2022 End: 07-26-2022 Admission to same day surgery center MD Jeff Terrell Work Phone: [facility]Digestive Health Start: 07-26-2022 End: 07-26-2022 ambulatory MD Jeff Terrell Work Phone: [facility] Work Phone: Start: 07-21-2022 End: 07-21-2022 ambulatory Tomi Leach Other [employer] Other Start: 07-21-2022 Telephone encounter [facility]i [facility] Start: 07-18-2022 End: 07-18-2022 Patient encounter procedure Ronak Rao [facility] Start: 07-14-2022 End: 07-14-2022 Patient encounter procedure Lauri SOLIZ [facility] Start: 07-12-2022 End: 07-12-2022 Patient encounter procedure Patito Sweet [facility] Start: 06-27-2022 End: 06-27-2022 ambulatory Tomi Leach Other [employer] Other Start: 06-27-2022 Office outpatient vi sit 25 minutes Tomi Leach [facility] Start: 06-23-2022 End: 06-23-2022 Pain Management Ronak Zumbar [facility] Start: 06-22-2022 End: 06-22-2022 Patient encounter procedure Patito Sweet [facility] Start: 06-14-2022 (Procedure) Short Tomi Leach [facility] Start: 06-14-2022 End: 06-14-2022 ambulatory Tomi Leach Other [employer] Other Start: 06-14-2022 End: 06-14-2022 Admission to same day surgery center MD Jeff Terrell Work Phone: [facility] Start: 06-08-2022 End: 06-09-[address] JEFF TERRELL . Facility: Start: 05-26-2022 End: 05-26-2022 ambulatory Gaurav Higuera Other [employer] Other Start: 05-26-2022 Telephone encounter Gaurav [facility] Start: 05-26-2022 End: 05-26-2022 Patient encounter procedure Ronak Terranceumbar [facility] Start: 05-26-2022 End: 05-26-2022 Pain Management Ronak Terranceumbar [facility] Start: 05-20-2022 End: 05-20-2022 Patient encounter procedure MD Jeff Terrell Work Phone: [facility] [place] Start: 05-09-2022 End: 05-09-2022 ambulatory Gaurav Higuera Other [employer] Other Start: 05-09-2022 Office outpatient vi sit 25 minutes Gaurav Higuera [facility] Start: 05-09-2022 End: 05-09-2022 Patient encounter procedure MD Jeff Terrell Work Phone: [facility] Start: 05-05-2022 End: 05-05-2022 ambulatory Gaurav Higuera Other [employer] Other Start: 05-05-2022 Telephone encounter Gaurav GONZALEZ [facility] Start: 03-16-2022 End: 03-16-2022 ambulatory Gaurav Higuera Other [employer] Other Start: 03-16-2022 Office outpatient vi sit 15 minutes Gaurav Higuera [facility] Start: 02-21-2022 (Procedure) Steffanie Leach [facility] Start: 02-21-2022 End: 02-21-2022 ambulatory Tomi Leach Other [employer] Other Start: 02-16-2022 End: 02-16-2022 ambulatory Gaurav Higuera Other [employer] Other Start: 02-16-2022 Office outpatient vi sit 15 minutes Gaurav Higuera [facility] Start: 02-02-2022 End: 02-02-2022 ambulatory Gaurav Higuera Other [employer] Other Start: 02-02-2022 Office outpatient vi sit 15 minutes Gaurav Higuera [facility] Start: 11-04-2021 End: 11-04-2021 ambulatory Gaurav Higuera Other [employer] Other Start: 11-04-2021 Telephone encounter Gaurav GONZALEZ [facility] Procedures Date Procedure Procedure Detail Performing Clinician Start: 08-20-2024 Basic metabolic pane l calcium total Venkat Paredes DPM Work Phone: Start: 08-20-2024 Complete blood count with white cell differential, automated Venkat Paredes DPM Work Phone: Start: 05-07-2024 Diagnostic radiograp hy of abdomen [...] Cystoscopic laser lithotripsy of ureteric calculus Patito Kee Start: 11-02-2022 Aerobic microbial culture MD Jeff Terrell Work Phone: Start: 11-02-2022 Anaerobic microbial culture MD Jeff Terrell Work Phone: Start: 11-02-2022 Investigation of transfusion reaction MD Jeff Terrell Work Phone: Start: 11-02-2022 CT guided percutaneo us therapeutic drainage MD Jeff Terrell Work Phone: Start: 09-30-2022 Cystoscopy MD Jeff Terrell Work Phone: Start: 09-30-2022 Diagnostic radiograp hy of abdomen MD Jeff Suarez Phone: Start: 08-23-2022 Extracorporeal shock wave lithotripsy of calculus of kidney MD Jeff Terrell Work Phone: Start: 08-23-2022 Diagnostic radiograp hy of abdomen MD Jeff Terrell Work Phone: Start: 08-23-2022 Extracorporeal shock wave lithotripsy of calculus of kidney Patito Sweet Start: 08-12-2022 Plain chest X-ray MD Guzman Work Phone: Start: 08-03-2022 CT of abdomen and pe lvis without contrast MD Jeff Terrell Work Phone: Start: 08-03-2022 Diagnostic radiograp hy of abdomen MD Jeff Terrell Work Phone: Start: 07-26-2022 Epidural injection o f lumbar spine using fluoroscopic guidance MD Jeff Suarez Phone: Start: 07-12-2022 Cystoscopy Patito Sweet Start: 06-14-2022 Injection of spinal epidural space MD Jeff Terrell Work Phone: Start: 05-20-2022 MRI of lumbar spine with contrast MD Jeff Suarez Phone: Start: 05-09-2022 X-ray of lumbar spin e, four views MD Jeff Terrell Work Phone: Start: 08-17-2018 Epidural injection o f cervical spine using fluoroscopic guidance Patito Sweet Comment on above: C6/[address] Bowles at [facility]. Start: 05-26-2017 Epidural injection o f cervical spine using fluoroscopic guidance Ronak Rao Start: 09-16-2016 Epidural injection o f cervical spine using fluoroscopic guidance Ronak Carlosumbhiram Start: 10-16-2000 Back structure, excl uding neck (body structure) Ronak Carlosumbhiram Comment on above: lumbar fusion History of decompres edgard of median nerve S/P carpal tunnel release MD Jeff Terrell Work Phone: Total knee replacement Rosalind Rao Total knee replacement Patito Sweet Plan of Treatment Date Care Activity Detail Author Start: 09-20-2024 End: 09-20-2024 Patient encounter procedure 09/20/2024 9:00 AM EST Office Visit [facility] [address] [place] [id number] Venkat Paredes, DPJuan [address] [address] [facility] Start: 09-11-2024 End: 09-11-2024 Patient encounter procedure [facility] Comment on above: Paronychia, toe, lef t (Primary Dx); Paronychia, toe, right Start: 08-26-2024 End: 08-26-2024 Patient encounter procedure [facility] Comment on above: Paronychia, toe, lef t (Primary Dx); Paronychia, toe, right Start: 04-29-2024 Patient referral [facility] Work Phone: Start: 03-13-2024 X-ray of left knee XR knee LT 3V - NOT FOR ER USE [facility] Start: 03-13-2024 XR Knee - left 3 Views [facility] Start: 10-30-2023 [facility] Start: 08-29-2023 [facility] Start: 08-22-2023 [facility] Start: 04-25-2023 [facility] Start: 04-24-2023 [facility] Start: 03-14-2023 [facility] Start: 03-14-2023 [facility] Start: 11-29-2022 [facility] Start: 11-29-2022 [facility] Start: 11-29-2022 [facility] Start: 11-02-2022 Aerobic Culture Aerobic Culture [facility] Start: 11-02-2022 Anaerobic Culture Anaerobic Culture [facility] Start: 11-02-2022 Microscopic observat ion [Identifier] in Unspecified specimen by Gram stain Gram Stain [facility] Start: 11-02-2022 [facility] Start: 11-02-2022 Microbial culture, b yani fluid [facility] Start: 11-02-2022 CT guided percutaneo us therapeutic drainage [facility] Start: 09-30-2022 [facility] Start: 08-23-2022 End: 08-23-2022 [facility] Start: 07-26-2022 [facility] Start: 06-14-2022 [facility] Start: 06-14-2022 Injection of spinal epidural space DH Epidural Transforaminal (Right) [facility] Start: 06-14-2022 End: 06-14-2022 Admission to same day surgery center Departed Surgical Day Care [facility] Start: 05-20-2022 MRI of lumbar spine with contrast MR lumbar spine wo/w con [facility] Start: 05-20-2022 End: 05-20-2022 Patient encounter procedure Departed Clinical [facility] [place] Bacteria identified in Unspecified specimen by Aerobe culture [facility] Bacteria identified in Unspecified specimen by Anaerobe culture [facility] Bilirubin [facility] Body weight [facility] Calcium carbonate/To karie in [facility] Calcium hydrogen phosphate dihydrate/Total in [facility] Calcium oxalate monohydrate/Total in [facility] Calcium phosphate level [facility] Calculus analysis wi th calculus photography [Interpretation] in [facility] Calculus analysis, qualitative [facility] Calculus analysis, quantitative [facility] Calculus analysis, quantitative, infrared spectroscopy [facility] Cellular material [Mass/mass] of Stone by Estimated [facility] Cholesterol [Mass/volume] in Serum or Plasma [facility] Cystine measurement [facility] Determination of calculus chemical composition [facility] Evaluation procedure [facility] Glucose measurement estimated from glycated hemoglobin [facility] Hemoglobin A1c measurement [facility] Hydroxyapatite [Ener gy Difference] in 24 hour Urine [facility] Laboratory data interpretation [facility] Newberyite/Total in [facility] Patient Education [facility] Work Phone: Patient referral [facility] Work Phone: Specimen source subj ect [Type] [facility] Triamterene measurement [facility] Triple phosphate/Tot al in [facility] XR Knee - left 3 Views [facility] Immunizations Immunization Date Immunization Notes Care Provider Fa [facility] 2023 tetanus toxoid, reduced diphtheria toxoid, and acellular pertussis vaccine, adsorbed MD Jeff Terrell Work Phone: [facility] NEGATED: Highlighted row has not occurred!06-22-2022 SARS-CoV-2 mRNA (tozinameran 5y-11y) vaccine Patito Kee [facility] Payers Date Payer Category Payer Medicare (Managed Care) ABIGAILA M EDICARE ADVANTAGE [id number] 2022 Private Health Insurance [id number] 2022 Unknown [id number] 1965 Unknown [id number] 2.16.840.1.252336.3.579.2 .593 1965 Unknown [id number] 2.16.840.1.668812.3.579.2 .593 1965 Unknown [id number] 2.16.840.1.872623.3.579.2 .593 1963 Unknown [id number] 2.16.840.1.371470.3.579.2 .593 1965 Unknown [id number] 2.16.840.1.613394.3.579.2 .593 1963 Unknown [id number] 2.16.840.1.766975.3.579.2 .593 1963 Unknown [id number] 2.16.840.1.853020.3.579.2 .593 1963 Unknown [id number] 2.16.840.1.992290.3.579.2 .593 1963 Unknown [id number] 2.16.840.1.984512.3.579.2 .593 1965 Unknown [id number] 2.16.840.1.539260.3.579.2 .593 1963 Unknown [id number] 2.16.840.1.335452.3.579.2 .593 1963 Unknown [id number] 2.16.840.1.601053.3.579.2 .727 1965 Unknown [id number] 2.16.840.1.882058.3.579.2 .727 1965 Unknown [id number] 2.16.840.1.645485.3.579.2 .727 1965 Unknown [id number] 2.16.840.1.339734.3.579.2 .727 1963 Unknown [id number] 2.16.840.1.876893.3.579.2 .727 1965 Unknown [id number] 2.16.840.1.224896.3.579.2 .727 1963 Unknown [id number] 2.16.840.1.446363.3.579.2 .727 1965 Unknown [id number] 2.16.840.1.265710.3.579.2 .727 1965 Unknown [id number] 2.16.840.1.812660.3.579.2 .727 1965 Unknown [id number] 2.16.840.1.267774.3.579.2 .1259 1965 Unknown [id number] 2.16.840.1.940510.3.579.2 .1259 1961 Medicare [id number] 2.16.840.1.659840.19 1959 Medicare [id number] 2.16.840.1.135099.19 1961 Medicare [id number] 1959 Private Health Insurance [id number] 1961 Self-pay [id number] Medicaid Medicaid [id number] Unknown [place] BC/BS [id number] Worker's Compensation [facility] [id number] Social History Date Type Detail Facility Unknown if ever smoked [employer] Other Start: 08-05-2024 End: 08-26-2024 Sex Assigned At [employer] Other Start: 03-04-2021 End: 08-05-2024 Tobacco smoking status Never smoked tobacco (finding) [facility] Work Phone: Start: 1965 Sex Assigned At Male [facility] Tobacco smoking status Never [facility] Tobacco smoking status NHIS Tobacco smoking consumption unknown [facility] Start: 08-04-2024 Gender identity Identifies as male gender (finding) [facility] Start: 08-04-2024 Sexual orientation Heterosexual (fin ding) [facility] Start: 08-05-2024 Tobacco use and exposure Smokeless tobacco non-user [facility] Start: 08-05-2024 End: 09-11-2024 Alcoholic beverage intake Defer [facility] Start: 08-05-2024 End: 08-26-2024 History of Social function [facility] NEGATED: Highlighted rowStart: NINF History of tobacco use Passive smoker [facility] Medical Equipment Procedure Code Equipment Code Equipment Origin al Text Equipment Identifier Dates Cystoscopy, with ureteral calculus manipulation and stent placement Polymeric ureteral stent [id number] FDA Start: 09-30-2022 Cystoscopy, with ureteral calculus manipulation and stent placement Polymeric ureteral stent ()[id number] FDA Start: 11-29-2022 Arthroplasty, knee, total, minimally invasive Orthopaedic cement, non-medicated ()[id number] FDA Start: 02-02-2021 Arthroplasty, knee, total, minimally invasive Polyethylene patella prosthesis ()[id number] FDA Start: 02-02-2021 Arthroplasty, knee, total, minimally invasive Uncoated knee tibia prosthesis, metallic ()[id number] FDA Start: 02-02-2021 Arthroplasty, knee, total, minimally invasive Coated knee femur prosthesis ()[id number] FDA Start: 02-02-2021 Arthroplasty, knee, total, minimally invasive Coated knee femur prosthesis ()[id number] FDA Start: 02-02-2021 Arthroplasty, knee, total, minimally invasive Tibial insert ()[id number] FDA Start: 02-02-2021 Arthroplasty, knee, total, minimally invasive Tibial insert ()[id number] FDA Start: 02-02-2021 Arthroplasty, knee, total, minimally invasive Uncoated knee tibia prosthesis, metallic ()[id number] FDA Start: 02-02-2021 Arthroplasty, knee, total, minimally invasive Polyethylene patella prosthesis ()[id number] FDA Start: 02-02-2021 CYSTOSCOPY Rhiannae Juan Sims, Patito M. 09/26/23 Unknown Pelvis and Genitalia FDA Start: 09-26-2023 CYSTOSCOPY Rhiannae Juan Sims, Patito M. 09/26/23 Unknown Pelvis and Genitalia [...] 05-09-2024 Functional Status N/A [facility] 11-03-2023 Functional Status N/A [facility] 09-25-2023 Functional Status No [facility] 08-18-2023 Functional Status N/A [facility] 07-13-2023 Functional Status N/A [facility] 05-31-2023 Functional Status N/A [facility] 01-12-2023 Functional Status N/A [facility] 12-21-2022 Functional Status N/A [facility] 11-04-2022 Functional Status N/A [facility] 09-21-2022 Functional Status N/A [facility] 08-10-2022 Functional Status N/A [facility] 07-12-2022 Functional Status N/A [facility] 06-23-2022 Functional Status N/A [facility] 06-22-2022 Functional Status N/A [facility] 05-26-2022 Functional Status N/A [facility] Clinical Notes 02-02-2022 to 09-11-2024 Venkat Paredes DPM - 09/11/2024 2:10 PM López Paredes DPM - 08/26/2024 9:30 AM López Paredes DPM - 08/05/2024 9:00 AM EDT Note Date & Type Note Facility 09-11-2024 History of Presen t illness Narrative Patient: Lima Loyd : 1965 PCP: Jeff Terrell MD SUBJECTIVE This is a 59 y.o. male that presents today 14 d s/p permanent nail avulsion with nail avulsion to the left and right 1-5 digits. Pt states that they have been following all post op instructions and have been taking antibiotic as prescribed. Pt denies n/f/v/c and has some pain at post op site. Pt states slight drainage from the postop site. Pt presents today for postoperative follow up. Allergies: Allergies Allergen Reactions Amoxicillin Hives Clavulanic Acid Hives Morphine Itching and Hives Other Reaction(s): Itching, mental problems, hives all in morphine family Amoxicillin-Pot Clavulanate Hives, Itching, Rash and Swelling listed as allergy on 05/26/22pt states he has no issues with this medicaiton Past Medical History: Past Medical History: Diagnosis Date Hypertension (CMS/HCC) Medications: Current Outpatient Medications: cyclobenzaprine (Flexeril) 10 MG tablet, , Disp: , Rfl: gabapentin (Neurontin) 600 MG tablet, 1 tablet Orally three times daily for 30 days, Disp: , Rfl: irbesartan (Avapro) 300 MG tablet, , Disp: , Rfl: tadalafil (Cialis) 20 MG tablet, Take 20 mg by mouth, Disp: , Rfl: temazepam (Restoril) 30 MG capsule, , Disp: , Rfl: ROS: General: denies fever, chills, fatigue, malaise GI: denies loose or watery stool on antibiotic OBJECTIVE LE EXAM: DERM: Negative erythema, slight serous drainage from the left and right 1-5 digits VASC: Palpable pedal pulses bilaterally NEURO: Gross sensation intact to bilateral feet ORTHO: Minimal pain on palpation to the left and right 1-10 toes. ASSESSMENT 14 d s/p permanent nail avulsion to the left 1-10 toenails 1. Paronychia, toe, left 2. Paronychia, toe, right PLAN Dry sterile dressing applied today and patient dressing dry and intact and may be full weight-bearing with return to clinic in 1 week Venkat Paredes DPM documented in this encounter [facility] 08-26-2024 History of Presen t illness Narrative Patient: Lima Loyd : 1965 PCP: Jeff Terrell MD SUBJECTIVE This is a 58 y.o. male that presents today with a CC of elongated, thick nails. Pt states nails have been elongated and thick for many years and cause pain with ambulation in shoegear. He also has history of ingrowing nails in the past has had permanent procedures with regrowth of nails in the past and would like to have permanent nail procedureTo nails 1 through 10 He is scheduled for total permanent nail avulsion in near future presents today for preoperative evaluation examination Allergies: Allergies Allergen Reactions Amoxicillin Hives Clavulanic Acid Hives Morphine Itching and Hives Other Reaction(s): Itching, mental problems, hives all in morphine family Amoxicillin-Pot Clavulanate Hives, Itching, Rash and Swelling listed as allergy on 05/26/22pt states he has no issues with this medicaiton Past Medical History: Past Medical History: Diagnosis Date Hypertension (CMS/HCC) Medications: Current Outpatient Medications: cyclobenzaprine (Flexeril) 10 [...] region along plantar fascial bands ASSESSMENT 1. Paronychia, toe, left 2. Paronychia, toe, right PLAN Patient given prescription for pain medication to be taken postoperatively. Decision for surgery today and patient medically cleared from a podiatric standpoint for surgery and to proceed with surgery. Pt to have pre op H/P per PCP for medical clearance for surgery and will be reviewed along with labs prior to surgery. Pt scheduled for TPN avulsions 1 through 10 toenails Discussed with the patient the nature of condition and operative vs nonoperative care. The surgical plans, risks, alternatives, benefits, post op complications and terminal press operator expectations were discussed including but not limited to: infection,bone infection,wound dehiscence hardware failure and irritation,wound dehiscence,delay union/mal union/non union of bone. RSDS,neuroma,duty limitations,DVT/PE, TX,nerve damage, scar, loss of sensation, swelling. Pt understands the proposed sx in detail and has agreed with proposed surgery. No guarantees were given or implied. Pt willingly consents to procedure and to have surgical procedure. Pt also understands risks including COVID-19 current risk in a surgical setting. Pt is a low acceptable risk for outpatient surgery from a podiatric standpoint with an ASA of a 2. Venkat Paredes DPM, FACFAS H&P up to date and current (date)08/26/24 Venkat Paredes DPM documented in this encounter [facility] 08-05-2024 History of Presen t illness Narrative [...] History: Past Medical History: Diagnosis Date Hypertension ([facility] Medications: Current Outpatient Medications: cyclobenzaprine (Flexeril) 10 [...] thickness digits 1 through 10 Patient received [id number] inserts with power steps today and begin wearing daily Patient to continue with oral anti - inflammatories as needed for pain and recommended OTC medications such as tylenol or Ibuprofen Discussed conservative and surgical treatment options for patient today including postoperative time frame and surgical procedure in detail. Patient may continue with conservative treatments including wnrv-mee-nnntqqy anti-inflammatories and other treatments suggested today. Patient may want to be scheduled for surgical intervention in the near future. Patient has total permanent nail avulsions in the near future with removal of nails had surgery Center and will need preop and have Ultram for postop pain Venkat Paredes DPM documented in this encounter [facility] 05-09-2024 Hospital Discharg e instructions Patient Education [...] include: ?8 oz (237 mL) of milk, kenmdvs-hlwifvbysofv-jvkqt milk, and calcium-fortifiedfruit juice. Calcium-fortified means that [...] ?Spinach (cooked), rhubarb, beets, sweet potatoes, and Niuean chard. ?Peanuts. ?Potato chips, burundian fries, and baked potatoes with skin on. ?Nuts and nut products. ?Chocolate. If you regularly take a diuretic medicine, make sure to eat at least 1 or 2 servings of fruits or vegetables that are high in potassium each day. These include: ?Avocado. ?Banana. ?[place], prune, carrot, or tomato juice. ?Baked potato. [...] magnesium, fish oil, or vitamin B6. Take dtrr-vzk-mfeaalu and prescription medicines only as told by [...] Casseroles. Pizza. Lasagna. Frozen meals. Potato chips. Thai fries. The items listed above may not [...] provider. Document Revised: 01/12/2023 Document Reviewed: 01/12/2023 [employer] Patient Education 2022 StepsAway. Follow Up Care 11/03/2023 10:48:01 With:Kee NAVARRO, Patito Good, URL, URO Address: When: Unknown [facility] [place] 05-09-2024 Note Patient Education Nephrology Dietary Guidelines [...] ? 8 oz (237 mL) of milk, hvhscha-ldgdvnptwojw-kqyuw milk, and calcium-fortifiedfruit juice. Calcium-fortified means that [...] Spinach (cooked), rhubarb, beets, sweet potatoes, and Niuean chard. ? Peanuts. ? Potato chips, burundian fries, and baked potatoes with skin on. ? Nuts and nut products. ? Chocolate. ? If you regularly take a diuretic medicine, make sure to eat at least 1 or 2 servings of fruits or vegetables that are high in potassium each day. These include: ? Avocado. ? Banana. ? [place], prune, carrot, or tomato juice. ? Baked [...] fish oil, or vitamin B6. ? Take pbjp-tmu-fvdezxi and prescription medicines only as told by your health care provider. These include suppleme (more content not included)... [facility] 04-29-2024 Hospital Discharg e instructions Ambulatory OrdersReferral to Neurology Time Frame: 04/29/24, Location: [facility] Work Phone: 11-10-2023 Evaluation note Encounter Date Diagnosis Assessment Notes Oct, Finger mass, right (ICD-10 - R22.31) Oct, Pre-op exam (ICD-10 - Z01.818) [facility] Other 01-19-2024 Hospital Discharge instructions Patient Education [...] urethra. Follow these instructions at home: Take uufl-kmb-amhlgcp and prescription medicines only as told by [...] provider. Document Revised: 04/20/2022 Document Reviewed: 04/20/2022 [employer] Patient Education 2022 StepsAway. Follow Up Care 09/26/2023 15:07:03 With:Kee NAVARRO, Patito Good, URJesse, URO Address: When:Within 6 Month(s) Comments:wHITESH and SUMMER [facility] [place] 01-10-2024 Evaluation note* Encounter Date Diagnosis Assessment [...] anesthesia. Oct, Pre-op exam (ICD-10 - Z01.818) [facility] Other 12-12-2023 Evaluation + Plan noteExtracted from: Title:ANES Post-operative Note - General Author: Clyde Gramajo Jr., DO Date:09/26/23 Plan Transfer/Discharge: Transfer/Discharge Discharge when meets criteria ( From PACU to Ambulatory Surgery Unit, and To home ). Extracted from: Title:ANES Pre-operative Note - Adult Author:Clyde Zee Jr., DO Date:09/26/23 Patient: LIMA LYOD Age: 58 years Sex: Male : 1965 [...] hrs., # 30 tab(s), Refills(s) 0, [id number], 188, cm, 05/31/23 8:37:00 EDT, Height/Lengt... 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 Cervical radiculopathy / SNOMED CT 339325893 / Confirmed Depression / SNOMED CT 56388289 / Confirmed ED (erectile dysfunction) / SNOMED CT 3529655598 / Confirmed Gross hematuria / SNOMED CT 702028712 / Confirmed History of prostatitis / SNOMED CT 2001050906 / Confirmed HTN (hypertension) / SNOMED CT 8188314062 / Confirmed Insomnia / SNOMED CT 501192105 / Confirmed Kidney stone / SNOMED CT 661593589 / Confirmed Lumbar radiculopathy / SNOMED CT 372387759 / Confirmed Poor short term memory / SNOMED CT 253245932 / Confirmed Prostatitis / SNOMED CT 52081657 / Confirmed Renal cyst / SNOMED CT 7847741807 / Confirmed Shoulder impingement syndrome / SNOMED CT 897418863 / Confirmed Thoracic spondylosis / SNOMED CT 3481748331 / Confirmed Tobacco use / SNOMED CT 531572008 / Confirmed Tremor / SNOMED CT 11016201 / Confirmed UTI (urinary tract infection) / SNOMED CT 466016199 / Confirmed Venous insufficiency / SNOMED CT 371567735 / Confirmed Resolved: Hematoma / SNOMED CT 0857740276 Canceled: Balanitis / SNOMED CT 89051059 Canceled: Erectile dysfunction / SNOMED CT 0121287841 Canceled: Gross hematuria / SNOMED CT 953414286 Canceled: Lesion of bladder / SNOMED CT 428536040 Canceled: Renal hematoma / SNOMED CT 193386317 Histories Past Medical History: Resolved Hematoma ([id number]): Resolved. Procedure history: Holmium Laser/Lt Stent Exchange ([id number]) on 11/29/2022 at 57 Years. ESWL of kidney (40462257) on 08/23/2022 at 56 Years. Cystoscopy (52148972) on 07/12/2022 at 56 Years. Epidural injection of cervical spine using fluoroscopic guidance ([id number]) on 08/17/2018 at 52 Years. Comments: 06/09/2022 13:10 CHERELLE Jolly RN, Megha C6/[address] Bowles at [facility]. Epidural injection of cervical spine using fluoroscopic guidance ([id number]) on 05/26/2017 at 51 Years. Epidural injection of cervical spine using fluoroscopic guidance (3081472095) on 09/16/2016 at 51 Years. Back- titanium cage L4-L5 (513361067) in 2000 at 36 Years. Comments: 06/23/2022 12:26 CHERELLE Jolly RN, Megha lumbar fusion Total knee replacement ([id number]). bilateral Total knee replacement (3856183682). Social History Social & Psychosocial Habits Alcohol [...] significant abnormalities noted.. ECG interpretation: NSR. Plan [place] [employer] Anesthesiologists (ASA) physical status classification: Class III. Anesthetic Preoperative Plan: Anesthesia General. Addendum by Clyde Gramajo Jr., DO ec2022 10:11 EST Mallampati 3 Future Appointments Appointment Date:11/03/2023 10:15:00 AM Scheduled Provider:Patito Sweet MD Location:[facility] Appointment Type:URO Office Visit [facility]12-12-2023 Hospital Discharge instructions Patient Education 09/26/2023 11:02:55 Post Op Patient Instructions - FT (Custom) (CUSTOM) 09/26/2023 10:47:43 Lue - Urolift Post-Op Instructions (CUSTOM) [facility] [place], [place] Post-Operative Instructions for UroLift After your [...] Up Care 08/18/2023 11:39:29 With:Patito Sweet Address: [facility] [place] [address] [address] [phone] Business (1) When: Unknown Comments:Call for followup appointment in 1 month with [facility]12-06-2023 Evaluation note* Encounter Date Diagnosis Assessment [...] continue with the treatment plan per Dr. Higuera, who initiated this treatment plan. Dr. Ruiz is present in the office today and providing supervision. [facility] Other 11-22-2023 Evaluation note* Encounter Date Diagnosis [...] as documented in the electronic medical record. [facility] Other 11-20-2023 Note [id number] [facility] 07-26-2023 Evaluation note* Encounter Date Diagnosis [...] pinky finger as well as weakness of medical scientific officer. Physical exam findings have also been discussed. [...] poor healing. I have advised against the terminal press operator use of narcotic pain medication. I have [...] mass index [BMI]40.0-44.9, adult (ICD-10 - Z68.41) [facility] Other 09-28-2023 Hospital Discharge instructions Patient Education [...] Follow these instructions at home: Medicines Take ovxe-ifg-chxasnc and prescription medicines only as told by [...] important. Where to find more information National [employer] of Diabetes and Digestive and Kidney Diseases: [...] depends on the type of prostatitis. Take spnt-fuy-ysyogdc and prescription medicines only as told by [...] provider. Document Revised: 11/06/2020 Document Reviewed: 11/06/2020 [employer] Patient Education 2022 StepsAway. Follow Up Care 07/13/2023 09:28:59 With:HEIDY HAMMOND, JANINE Chavez, URL Address: [address] [place] [address] When: Unknown Comments:follow up with JEFFERY hernandez [facility] [place] 09-21-2023 Evaluation note* Encounter Date Diagnosis [...] note writ ten by Germain Bowles MA, Executive Business Coach. Edited and approved by Dr. Tomi Leach MD. [facility] Other 09-15-2023 Evaluation note* Encounter Date Diagnosis [...] as documented in the electronic medical record. [facility] Other 08-28-2023 Evaluation note* Encounter Date Diagnosis [...] as documented in the electronic medical record. [facility] Other 08-16-2023 Hospital Discharge instructions Patient Education [...] urethra. Follow these instructions at home: Take dmbb-umo-ajhitaa and prescription medicines only as told by [...] provider. Document Revised: 04/20/2022 Document Reviewed: 04/20/2022 [employer] Patient Education 2022 StepsAway. Follow Up Care 05/10/2023 14:32:19 With:Kee NAVARRO, RENATA Ghotra, URO Address: When: Unknown Comments:sched Cysto [facility] 06-09-2023 Evaluation note* Encounter Date Diagnosis Assessment [...] as documented in the electronic medical record. [facility] Other 05-25-2023 Hospital Discharge instructions Follow Up Care 03/09/2023 11:30:53 With:Kee NAVARRO, RENATA Ghotra, URO Address: When: Unknown Comments:Sched UroLift [facility] [place] 05-12-2023 Evaluation note* Encounter Date Diagnosis Assessment [...] of pinch strength in approximately 6 weeks, medical scientific officer strength recovery at about 12 weeks, and [...] poor healing. I have advised against the intermediate use of narcotic pain medication. I have [...] understands these risks and wishes to proceed. [facility] Other 05-01-2023 Hospital Discharge instructions Additional Instructions Dr. Higuera's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 Gaurav Higuera DO Attending Provider Active S tart: December 04, 2023 End: December 04, 2023 Team Status: Inactive Member Role Status Sanket Terrell MD Primary Care Provider Active Start: December 06, 2023 End: December 06, 2023 Melissa Castellano MD Attending Provider Active Start: December 06, 2023 End: December 06, 2023 Team Status: Inactive Member Role Status Sanket Higuera DO Attending Provider Active S tart: September 06, 2023 End: September 06, 2023 Team Status: Inactive Member Role Status Sanket Terrell MD Primary Care Provider Active Start: September 15, 2023 End: September 15, 2023 Patito Sweet MD Attending Provider Active Start : September 15, 2023 End: September 15, 2023 Team Status: Inactive Member Role Status Dates ZACH Roberts Attending Provider Active Start: September 20, 2023 End: September 20, 2023 Team Status: Inactive Member Role Status Sanket Higuera DO Attending Provider Active S tart: October [...] Terrell MD Primary Care Provider Active Gaurav Higuera DO Attending Provider Active Team Status: Inactive [...] Sanket Terrell MD Primary Care Provider Active EDWARD PaulinoP- Emergency Provider Active Team Status: Inactive Member Role Status Sanket Terrell MD Primary Care Provider Active Gaurav Higuera DO Attending Provider Active Patito Sweet MD Other Provider Active Team Status: Inactive Member Role Status Sanket Terrell MD Primary Care Provider Active Tony Black APRN Emergency Provider Active Team Status: Inactive Member Role Status Sanket Terrell MD Primary Care Provider Active Melissa Castellano MD Attending Provider Active Team Status: Active Member Role Status Sanket Terrell MD Primary Care Provider Active Start: March 13, 2024 Gaurav Higuera DO Attending Provider Active S tart: March 13, 2024 Team Status: Active Member Role Status Dates Jeff Terrell MD Primary Care Provider Active Start: June 06, 2024 Gaurav Higuera DO Attending Provider Active S tart: June 06, 2024 Team Status: Inactive Member Role Status Dates Jeff Terrell MD Primary Care Provider Active Start: June 12, 2024 End: June 12, 2024 Gaurav Higuera DO Attending Provider Active S tart: June 12, 2024 End: June 12, 2024 Team Status: Inactive Member Role Status Dates Jeff Terrell MD Primary Care Provider Active Start: July 08, 2024 End: July 08, 2024 Gaurav Higuera DO Attending Provider Active S tart: July 08, 2024 End: July 08, 2024 Surgical Services Coordinator Relationship Specialty Start Date End Date Jeff Terrell MD [address] [place] [address] PCP - General Family Medicine 08/05/24 Surgical Services Coordinator Relationship Specialty Start Date End Date Jeff Terrell MD [address] [place] [address] PCP - General Family Medicine 08/05/24 Surgical Services Coordinator Relationship Specialty Start Date End Date Jeff Terrell MD [address] [place] [address] PCP - General Family Medicine 08/05/24 Team Status: Inactive Member Role Status Dates Jeff Terrell MD Primary Care Provider Active Start: August 20, 2024 End: August 20, 2024 Venkat Paredes DPM Attending Provider Active Start: August 20, 2024 End: August 20, 2024 Surgical Services Coordinator Relationship Specialty Start Date End Date Jeff Terrell MD [address] [place] [address] PCP - General Family Medicine 08/05/24 Surgical Services Coordinator Relationship Specialty Start Date End Date Jeff Terrell MD [address] [place] [address] PCP - General Family Medicine 08/05/24 Surgical Services Coordinator Relationship Specialty Start Date End Date Jeff Terrell MD [address] [place] [address] PCP - General Family Medicine 08/05/24 Goals (unrecognized section and content) Goals may be documented in a n alternate section (unrecognized sect ion and content) No Status Records FoundNo Status Records FoundNo Status Records FoundNo Status Records Found INFORMATION SOURCE (unrecogn ized section and content) DATE CREATED AUTHOR 02/25/2023 [facility] DATE CREATED AUTHOR AUTHOR'S ORGANIZ ATION 05/18/2024 [facility] DATE CREATED AUTHOR AUTHOR'S ORGANIZ ATION 08/22/2024 [facility] DATE CREATED AUTHOR AUTHOR'S ORGANIZ ATION 2024 [facility] FOR RECORDS PERTAINING TO PATIENTS WHO ARE [...] BE BASED ON THE PRIMARY CLINICAL RECORDS. [employer] provides no warranty or guarantee of the accuracy or completeness of information in this document.
== END 2024-09-13 13:55 | disposition home or self-care (01) ==
LOC: US 13:54
PROVIDERS: PCP Family Medicine; Visit Provider Family Medicine
DX: J98.59 Other diseases of mediastinum, not elsewhere classified (principal)
CPT/HCPCS: 76604

== ENCOUNTER 2024-10-03 06:52 | Outpatient (OUT) | payer MEDICARE, SELFPAY ==
--- NOTE | 2024-10-03 | NM_ITS ---
[address] [address] Patient Name: LIMA LOYD MRN: [id number] date: 1965 Sex: M Assigned Patient Location: OR Current Patient Location: Accession/Order Number: [id number] Exam Date: 10/03/2024 06:45 Report Date: 10/04/2024 11:12 At the request of: MARC TERRELL Procedure: NM thyroid w uptake EXAMINATION: NM thyroid w uptake HISTORY: THYROID NODULE COMPARISON: Ultrasound 09/13/2024 TECHNIQUE: After obtaining patient consent, 259.3 uCi I-123 was administered orally. Uptake was evaluated between 4 and 6 hours and at 24 hours. Images were acquired at 4 - 6 hours. FINDINGS: THYROID SCAN: Normal-appearing thyroid gland without enlargement or filling defect. Six-hour uptake 24.9%. 24-hour uptake 37.5% NM/NM thyroid w uptake IMPRESSION: No focal hot or cold nodule Elevated uptake at 6 and 24 hours Electronically authenticated by: MYRA SHAFFER Date: 10/04/2024 11:12
--- OUTSIDE RECORDS SUMMARY | 2024-10-03 06:55 | XMS_ITS | CCD ---
Author Organization [facility] Care Team Providers Care Perioperative Educator Name Role Phone Gaurav Higuera Unavailable Tomi Leach Unavailable Jeff Terrell Primary Care Physician MD Jeff Terrell Primary Care Provider DO Gaurav Hiugera Attending Provider MD Tomi Leach Attending Provider MD Patito Sweet Attending Provider [phone] Ramiro George Unavailable MD Jeff Terrell Primary Care Provider DO Gaurav Higuera Attending Provider MD Jeff Terrell Primary Care Provider MD Tomi Leach Attending Provider [phone] MD Patito Sweet Attending Provider MD Jeff [...] Unavailable MD Jeff Terrell Primary Care Provider [phone] DO Gaurav Higuera Attending Provider MD Patito Sweet Other Provider MD Jeff Terrell Primary Care Provider MD Tomi Leach Attending Provider [phone] MD Jeff Terrell Primary Care Provider Self, Referral Attending Provider Unavailable DO Gaurav Higuera A Attending Provider [phone] MD Jeff Terrell Primary Care Provider MD Tomi Leach Attending Provider DO Gaurav Higuera Attending Provider Self, Referral Attending Provider Unavailable CHARLI Black Emergency Provider [phone] MD Patito Sweet Attending Provider [phone] Janine Maynard Unavailable Melissa Castellano Unavailable MD Jeff Terrell Primary Care Provider MD Melissa Castellano Attending Provider MD Jeff Terrell Primary Care Provider DO Gaurav Higuera Attending Provider [phone] MD Jeff Terrell Primary Care Provider MD Melissa Castellano Attending Provider MD Patito Sweet Attending Provider DO Gaurav Higuera A Attending Provider MD [...] Unavailable MD Jeff Terrell Primary Care Provider [phone] DO Clay Higuerain A Attending Provider [phone] DO Gaurav Higuera A Attending Provider [phone] Jeff Terrell MD Primary Care Provider [phone] MD Jeff Terrell Primary Care Provider DO Gaurav Higuera A Attending Provider [phone] NICOLAS Paredes Attending Provider Hozan, Jeff M Primary Care Unavailable Lue, Patito [...] Attending Unavailable Davida, Gaurav A Admitting Unavailable Brown, Venkat A Admitting Unavailable Brown, Venkat A Attending Unavailable Hoy, Jeff M Primary Care Unavailable BROWN, VENKAT A Attending Unavailable BROWN, VENKAT A Attending Unavailable BROWN, VENKAT A Attending Unavailable BROWN, VENKAT A Attending Unavailable BROWN, VENKAT A Attending Unavailable Allergies Allergy Classification Reported Allergen(s) Allergy Type Date of Onset Reaction(s) Facility (20 sources) Amoxicillin / Clavulanate; Translations: [amoxicillin-cla vulanate] Drug Allergy hives, Unknown (qualifier value), Weal (disorder) [employer] [facility] [employer] Other Comment on above: listed as allergy on 05/26/22 pt states he has no issues with this medicaiton (20 sources) Morphine; Translations: [morphine] Drug Allergy 02-23-20 17 hives, Unknown (qualifier value), Itching [employer] [facility] [employer] Other Comment on above: all in morphine fami ly (20 sources) traMADol Drug Allergy 02-08-20 21 Unknown, Itching [facility] (20 sources) Bee/Wasp/Ant venom; Translations: [Bee Stings] Drug allergy 02-29-20 23 Swelling [facility] (20 sources) Amoxicillin Drug Allergy 02-06-20 21 [facility] (20 sources) Clavulanate Drug Allergy 02-06-20 21 [facility] (10 sources) oxyCODONE Drug Allergy 02-06-20 21 [facility] (14 sources) Ciprofloxacin; Translations: [ciprofloxacin] Drug Allergy Unknown (qualifier value) [facility] (11 sources) Amoxicillin / Clavulanate; Translations: [Augmentin] Drug Allergy 04-28-20 13 hives [facility] (2 sources) Acetaminophen / oxyCODONE Drug Allergy 11-03-19 17 [facility] (1 source) bee venom Drug allergy (disorder) [facility] (2 sources) Morphine Drug Allergy 11-03-19 17 [facility] (1 source) traMADol Drug Allergy 06-07-20 16 [facility] (2 sources) Morphine Drug Allergy [facility] [employer] [facility] Other (16 sources) Amoxicillin-Pot Clavulanate Drug Intolerance 02-23-20 17 [...] hours Acetaminophen Discontinued 500 MG PO Q6H 30 February 11, 2021 11:00pm August 12, [...] day(s), # 14 tab(s), Refills(s) 0, Pharmacy: [facility] [id number], 188, cm, 09/21/22 8:23:0... Start Date: 10/21/22 [...] 2021 4:19pm take 2 tablets by mo [facility] every twenty-four hours Gabapentin 600 MG 2 capsule Orally Once a day Active hyoscyamine sulfate 0.125 mg oral tablet (8 sources) Start: 12-21-2022 take 1 tablet by mouth four times daily as needed for pain Levsin 0.125 mg SL Tab 0.125 mg = 1 tab(s), Oral, QID, PRN abdominal pain, # 90 tab(s), Refills(s) 2, Pharmacy: [facility] [id number], 188, cm, 12/21/22 7:44:00 EST, Height/Length Dosing, [...] day(s), # 3 tab(s), Refills(s) 0, Pharmacy: [facility] [id number], 187, cm, 09/26/23 7:40:00 EST, Height/Length Dosing, 138.9, kg, 09/26/23 7:40:00 EST, Weight Dosing Start Date: 09/26/23 Stop Date: 09/29/23 Status: Ordered Start: 11-04-2022 End: 11-18-2022 take 1 tablet by mouth once daily Levaquin 500 mg Tab 500 mg = 1 tab(s), Oral, Daily, X 14 day(s), # 14 tab(s), Refills(s) 0, Pharmacy: [facility] [id number], 188, cm, 11/04/22 9:22:00 EST, Height/Length Dosing, 132, kg, 11/04/22 9:22:00 EST, Weight Dosing Start Date: 11/04/22 Stop Date: 11/18/22 Status: Ordered levoFLOXacin 750 MG (Prior Auth#:[id number]) Oral for 10 Active lidocaine 0.05 mg/mg medicated patch (6 sources) Antiarrhythmic, Amide Local Anesthetic Start: 11-18-2022 lidocaine Top 5% satinder m Patch 1 patch(es), Topical, Daily, 7 patch(es), Refill(s) 3, apply 12 hours on and 12 hours off daily, [facility] [id number], 188, cm, 11/04/22 9:22:00 EST, Height/Length Dosing, 132, kg, 11/04/22 9:22:00 EST, Weight Dosing Start Date: 11/18/22 Status: Ordered Start: 10-21-2022 End: 10-28-2022 lidocaine Top 5% film Patch 1 patch(es), Topical, Daily for 7 day(s), 7 patch(es), Refill(s) 0, Apply to affected area for up to 12 hours a day., [facility] [id number], 188, cm, 09/21/22 8:23:00 EST, Height/Length Dosing, 132, kg, 09/21/22 8:23:00 EST, Weight Dosing Start Date: 10/21/22 Stop Date: 10/28/22 Status: Ordered methylPREDNISolone (17 sources) Corticosteroid Start: 09-27-2024 methylPREDNISo lone (Medrol Dospak) 4 MG tablets Indications: Plantar fasciitis Follow schedule on MEDROL PACK package instructions to be used as directed 21 tablet 09/27/2024 Active Start: 04-29-2024 take 1 tablet by mouth once Me thylprednisolone (Medrol (Lee)) 4 mg tablets,dose pack Active [...] week(s), # 28 tab(s), Refills(s) 0, Pharmacy: [facility] [id number], 188, cm, 07/13/23 9:45:00 EDT, Height/Length Dosing, 132, kg, 07/13/23 9:45:00 EDT, Weight Dosing Start Date: 07/13/23 Stop Date: 07/27/23 Status: Ordered oxybutynin chloride 5 mg oral tablet (20 sources) Cholinergic Muscarinic Antagonist Start: 09-26-2023 take 1 tablet by mouth three times daily oxybutynin 5 mg Tab 5 mg = 1 tab(s), Oral, TID, # 30 tab(s), Refills(s) 0, Pharmacy: [facility] [id number], 187, cm, 09/26/23 7:40:00 EST, Height/Length Dosing, [...] tab(s), Oral, BID, 180 tab(s), Refill(s) 3, [facility] [id number], 188, cm, 08/18/23 10:17:00 EDT, Height/Length Dosing, 132, kg, 08/18/23 10:17:00 EDT, Weight Dosing Start Date: 08/18/23 Status: Ordered Start: 05-31-2023 take 1 tablet by marcela th twice daily potassium CITRATE 10 mEq ER Tab 10 mEq, 1 tab(s), Oral, BID, 90 tab(s), Refill(s) 0, [facility] [employer] [id number], 188, cm, 05/31/23 8:37:00 EDT, Height/Length Dosing, [...] for 4 week(s), 56 tab(s), Refill(s) 0, [facility] [id number], 188, cm, 07/13/23 9:45:00 EDT, Height/Length Dosing, [...] hours., # 30 tab(s), Refills(s) 3, Pharmacy: [facility] [id number], 188, cm, 05/09/24 10:10:00 EDT, Height/Length Dosing, [...] hrs., # 30 tab(s), Refills(s) 0, Pharmacy: [facility] [id number], 188, cm, 05/31/23 8:37:00 EDT, Height/Length Dosing, [...] 2022 12:00am October 30, 2023 7:49am Start: 09-07-2022 take 1 mg by mouth once daily [...] 11, 2022 11:00pm October 30, 2023 7:50am traMADol hydrochloride 50 mg oral tablet (20 sources) Opioid Agonist Start: 09-27-2024 End: 10-02-2024 take 1 tablet by mouth every eight hours for pain traMADol (Ultram) 50 MG tablet Indications: Peroneal tendinitis, right Take 1 tablet (50 mg) by mouth every 8 (eight) hours if needed for severe pain for up to 5 days 15 tablet 09/27/2024 10/02/2024 Active Start: 08-26-2024 End: 08-31-2024 take 1 tablet [...] Tramadol Discontinued 50 MG PO Q4H 40 February 11, 2021 11:00pm June 14, 2022 7:26am Start: 02-05-2021 End: 02-12-2021 take 100 mg by mouth every six hours Tramadol Discontinued 100 MG PO Q6H February 04, 2021 11:00pm February 12, 2021 7:59am Completed/Discontinued Medications Medication Drug Class(es) Dates Sig [...] by mouth every six hours for pain [place] 325 mg-5 mg oral tablet 1 tab(s), Oral, q6hr for pain for 3 day(s), 12 tab(s), Refill(s) 0, [facility] [id number], 187, cm, 09/26/23 7:40:00 EST, Height/Length Dosing, 138.9, kg, 09/26/23 7:40:00 EST, Weight Dosing Start Date: 09/26/23 Stop Date: 09/29/23 Status: Ordered Start: 04-25-2023 End: 08-15-2023 take 1 tablet by mouth every four hours Hydrocodone-Acetaminophen Discontinued 1 TAB PO Q4H 10 April 25, 2023 August 15, 2023 8:37am [...] hours Hydrocodone-Acetaminophen Discontinued 1 TAB PO Q6H 09 17January 30, 2023 February 28, 2023 8:03am Start: 01-12-2018 End: 11-24-2020 take 1 tablet by mouth every four hours as needed for pain Hydrocodone-Acetaminophen ([place]) 5-325 mg tablet Discontinued 1 TAB PO Q4H January 12, 2018 November 24, 2020 10:16am 1 or 2 p.o. q 4 hours prn pain Start: 09-28-2017 End: 11-24-2020 take 1 tablet by mouth every four to six hours Hydrocodone-Acetaminophen ([place]) 5-325 mg tablet Discontinued 1 TAB PO [...] Aspirin Discontinued 81 MG PO Twice daily 40 February 12, 2021 7:58am August 12, 2022 [...] 40 MG PO Daily at bedtime February 11, 2021 11:00pm June 14, 2022 [...] bedtime Citalopram Discontinued 40 MG PO Bedtime February 11, 2021 11:00pm August 12, 2022 12:40pm take 0.5 tablet by m outh every twenty-four hours CeleXA 40 MG 0.5 tablet Orally Once a day Active diclofenac potassium 50 mg oral tablet (20 sources) Nonsteroidal Anti-inflammatory Drug Start: 09-28-2017 End: 01-12-2018 Diclofenac Potassium Discontinued TABLET September 28, 2017 12:00am January 12, 2018 7:02am Voltaren 1 % dmias ly 1-2 grams to affected area Externally [...] 2021 8:28am take 1 tablet by marcela th every [...] Start: 02-12-2021 take 2 tablets by mo [facility] once daily in the morning Multivitamin With Folic Acid (Thera) 400 mcg Tablet Active 2 TAB PO Every morning 60 February 11, 2021 11:00pm Start: 02-12-2021 take 2 tablets by mo [facility] once daily in the morning Multivitamin With [...] 2021 6:53am Nabumetone 500 M G (Prior Auth#:[id number]) Oral for 30 Active phentermine hydrochloride 37.5 [...] Discontinued 50 MG PO Daily 5 January 29, 2023 11:00pm February 28, 2023 8:03am [...] 11, 2021 11:00pm June 14, 2022 7:26am triamcinolone acetonide 40 mg/ml injectable suspension (20 sources) Corticosteroid Start: 09-20-2023 Kenalog-40 Sep, 40 mg Start: 02-20-2018 Kenalog -40 mg February, 40 mg Walker - (5 sources) Start: 12-04-2020 Walker - as di rected Nov, Not-Taking Problems Active Problems Problem [...] disorder; Translations: [Chronic depression] 03-04-2021 Chronic Mycoses (4 sources) Pain in toe; Translations: [Tinea unguium] [...] knee] Onset: 02-02-2022 Resolved: 05-09-2022 Chronic Other acquired deformities (2 sources) Contracture of joint of right ankle; Translations: [Contracture, right ankle] 09-27-2024 Chronic Other aftercare (1 source) long term (current) use of aspirin; Translations: [AUDITOR/QUALITY CURRENT USE OF ASPIRIN] Onset: 01-19-2023 Episodic Other aftercare (1 source) Other care home (current) drug therapy; Translations: [OTH AUDITOR/QUALITY CURRENT DRUG THERAPY] Onset: 01-19-2023 Episodic Other [...] tenosynovitis] 04-29-2024 Episodic Other connective tissue disease (6 sources) Plantar fasciitis; Translations: [Plantar fascial fibromatosis] 08-05-2024 Episodic Other connective tissue disease (2 sources) Peroneal tendinitis of right lower limb; Translations: [Peroneal tendinitis, right leg] 09-27-2024 Episodic Other diseases of bladder and urethra [...] 10-05-2022 Chronic Skin and subcutaneous tissue infections (20 sources) Paronychia of toe of left foot; [...] Basophils/100 WBC (Bld) 0.5 % Normal . [facility] Comment on above: Performed By: #### B MP, CBC #### [address] Automated basophil countOrde red By: Venkat Paredes on 08-20-2024 Basophils (Bld) [#/Vol] 0.0 10*3/uL Normal 0.0-0.2 [facility] Comment on above: Result Comment: PERF ORMED BY: [place] [address] PATHOLOGIST CREDIT CONTROL OFFICER BENEDICTO WOOD M.D. Performed By: #### B MP, CBC #### [address] Automated blood monocyte cou ntOrdered By: Venkat Paredes on 08-20-2024 Monocytes (Bld) [#/Vol] 1.0 10*3/uL High 0.0-0.8 [facility] Comment on above: Performed By: #### B MP, CBC #### [address] Automated eosinophil %Ordere d By: Venkat Paredes on 08-20-2024 Eosinophils/100 WBC (Bld) 2.3 % Normal . [facility] Comment on above: Performed By: #### B MP, CBC #### [address] Automated eosinophil countOr dered By: Venkat Paredes on 08-20-2024 Eosinophils (Bld) [#/Vol] 0.2 10*3/uL Normal 0.0-0.45 [facility] Comment on above: Performed By: #### B MP, CBC #### [facility] [address] Automated monocyte %Ordered By: Venkat Paredes on 08-20-2024 Monocytes/100 WBC (Bld) 10.8 % Normal . [facility] Comment on above: Performed By: #### B MP, CBC #### [facility] [address] Automated neutrophil %Ordere d By: Venkat Paredes on 08-20-2024 Neutrophils/100 WBC (Bld) 58.9 % Normal . [facility] Comment on above: Performed By: #### B MP, CBC #### [facility] [address] Basic Metabolic Panelon GFR/1.73 sq M.predicted MDRD (S/P/Bld) [Vol rate/Area] mL/min/{1.73_m2} Normal [facility] Comment on above: Performed By: #### B MP, CBC #### [facility] [address] Basic metabolic 1998 panelon 08-20-2024 Anion gap [Moles/Vol] 11.9 mmol/L 6.0 - 15.0 [facility] Calcium [Mass/Vol] 8.6 mg/dL 8.6 - 10. 3 mg/dL [facility] Chloride [Moles/Vol] 108 mmol/L High 98 - 10 7 mmol/L [facility] CO2 [Moles/Vol] 27.5 mmol/L 21.0 - 31.0 mmol/L [facility] Creatinine (U) [Mass/Vol] 1.27 mg/dL 0.70 - 1.30 mg/dL [facility] GFR/1.73 sq M.predicted MDRD (S/P/Bld) [Vol rate/Area] mL/min/{1.73_m2} [facility] Glucose [Mass/Vol] 119 mg/dL High 70 - 100 mg/dL [facility] Comment on above: Random Glucose Refer ence Range is dependent on time and content of last meal. Glucose of more than 200 mg/dL in a nonstressed, ambulatory subject supports the diagnosis of Diabetes Mellitus. ADA recommended reference range Interpretation and review of laboratory results Abnormal [facility] Potassium [Moles/Vol] 4.4 mmol/L 3.5 - 5.1 mmol/L [facility] Sodium [Moles/Vol] 143 mmol/L 136 - 145 mmol/L [facility] Urea nitrogen [Mass/Vol] 10 mg/dL 7 - 25 mg/dL [facility] CBC W Auto Differential pane l (Bld)on 08-20-2024 Basophils (Bld) [#/Vol] 0 10*3/uL 0.0 - 0.2 10*3/uL [facility] Basophils/100 WBC Manual cnt (Syn fld) 0.5 % . [facility] Eosinophils (Bld) [#/Vol] 0.2 10*3/uL 0.0 - 0.45 10*3/uL [facility] Eosinophils/100 WBC Manual cnt (Syn fld) 2.3 % . [facility] Erythrocyte distribution width (RBC) [Ratio] 15.4 % High 12.0 - 14.8 % [facility] Hematocrit (Bld) [Volume fraction] 40.5 % 38.8 - 50.0 % [facility] Hemoglobin (Bld) [Mass/Vol] 13.5 g/dL 13.0 - 17.0 g/dL [facility] Interpretation and review of laboratory results Abnormal [facility] Lymphocytes (Bld) [#/Vol] 2.6 10*3/uL 1.00 - 4.8 10*3/uL [facility] Lymphocytes/100 WBC Manual cnt (Syn fld) 27.5 % . [facility] MCH (RBC) [Entitic mass] 25.9 pg Low 27.5 - 35.2 pg [facility] MCHC (RBC) [Mass/Vol] 33.3 g/dL 32.5 - 35.6 g/dL [facility] MCV (RBC) [Entitic vol] 77.8 fL Low 83.5 - 101 fL [facility] Monocytes (Bld) [#/Vol] 1 10*3/uL High 0.0 - 0.8 10*3/uL [facility] Monocytes+Macrophages /100 WBC Manual cnt (Syn fld) 10.8 % . [facility] Neutrophils (Bld) [#/Vol] 5.7 10*3/uL 1.8 - 7.7 10*3/uL [facility] Neutrophils/100 WBC Manual cnt (Syn fld) 58.9 % . [facility] NRBC 0.2 /100{WBC} 0 - 0.5 /100{WBC} [facility] Platelet mean volume (Bld) [Entitic vol] 7.5 fL 6.6 - 10.1 fL [facility] Platelets (Bld) [#/Vol] 217 10*3/uL 150 - 450 10*3/uL [facility] RBC LM.HPF (Urine sed) [#/Area] 5.21 /[HPF] 3.90 - 5.60 [facility] WBC (Bld) [#/Vol] 9.6 10*3/uL 4.1 - 10.5 10*3/uL [facility] WBC LM.HPF (Urine sed) [#/Area] 9.6 10*3/uL 4.1 - 10.5 10*3/uL [facility] Calcium [Mass/volume] in Ser um or PlasmaOrdered By: Venkat Paredes on 08-20-2024 Calcium [Mass/Vol] 8.6 mg/dL Normal 8.6-10.3 [facility] Comment on above: Result Comment: PERF ORMED BY: [place] [address] PATHOLOGIST CREDIT CONTROL OFFICER BENEDICTO WOOD M.D. Performed By: #### B JAYLEN, CBC #### [facility] [address] [place] [address] Carbon dioxide, total [Moles /volume] in Serum or PlasmaOrdered By: Venkat Paredes on 08-20-2024 CO2 [Moles/Vol] 27.5 mmol/L Normal 21.0-31.0 [facility] Comment on above: Performed By: #### B MP, CBC #### [facility] [address] [place] [address] [place] Chloride [Moles/volume] in S lilli or PlasmaOrdered By: Venkat Paredes on 08-20-2024 Chloride [Moles/Vol] 108 mmol/L High 98-107 [facility] Comment on above: Performed By: #### B MP, CBC #### [facility] [address] Complete Blood Count Auto Di ffon 08-20-2024 Mean Corpuscular HGB Conc 33.3 g/dL Normal 32.5-35.6 [facility] Comment on above: Performed By: #### B MP, CBC #### [facility] [address] NRBC% 0.2 /100{WBC} Normal 0-0.5 [facility] Comment on above: Performed By: #### B MP, CBC #### [address] Creatinine [Mass/volume] in Serum or PlasmaOrdered By: Venkat Paredes on 08-20-2024 Creatinine [Mass/Vol] 1.27 mg/dL Normal 0.70-1.30 [facility] Comment on above: Performed By: #### B MP, CBC #### [address] ECG 12 lead ECGon 08-20-2024 ECG 12 lead ECG [facility] [place] [address] [place] [address] Electrocardiograph Report Signed Patient: Lima Loyd MR#: [id number] : 1965 Acct:[id number] Age/Sex: 58 / M ADM Date: 08/20/24 Loc: Room: Type: [facility] Attending Dr: Venkat Paredes DPM Ordering Provider: Venkat Paredes DPM Date of [...] No significant change was found Confirmed by ELENA HAMILTON MD, FACC ([id number]) on 08/20/2024 2:16:35 PM Referred By: Electronically Signed By: ELENA HAMILTON MD [facility] Transcribed By: MUS Signed By Elena Hamilton MD, [facility] 08/20/24 1416 Normal [facility] Erythrocyte distribution wid th [Ratio] by Automated countOrdered By: Venkat Paredes on 08-20-2024 Erythrocyte distribution width (RBC) [Ratio] 15.4 % High 12.0-14.8 [facility] Comment on above: Performed By: #### B MP, CBC #### [facility] [address] Erythrocytes [#/volume] in B lood by Automated countOrdered By: Venkat Paredes on 08-20-2024 RBC (Bld) [#/Vol] 5.21 10*6/uL Normal 3.90-5.60 [facility] Comment on above: Performed By: #### B MP, CBC #### [facility] [address] [place] [address] [place] Glucose [Mass/volume] in Ser um or PlasmaOrdered By: Venkat Paredes on 08-20-2024 Glucose [Mass/Vol] 119 mg/dL High 70-100 [facility] Comment on above: ADA recommended refe rence rangeRandom Glucose Reference Range is dependent on time and content of last meal. Glucose of more than 200 mg/dL in a nonstressed, ambulatory subject supports the diagnosis of Diabetes Mellitus. Result Comment: [place] om Glucose Reference Range is dependent on time and content of last meal. Glucose of more than 200 mg/dL in a nonstressed, ambulatory subject supports the diagnosis of Diabetes Mellitus. ADA recommended reference range Performed By: #### B MP, CBC #### [facility] [address] [place] [id number] [place] Hematocrit [Volume Fraction] of Blood by Automated countOrdered By: Venkat Paredes on 08-20-2024 Hematocrit (Bld) [Volume fraction] 40.5 % Normal 38.8-50.0 [facility] Comment on above: Performed By: #### B MP, CBC #### [facility] [address] [place] [id number] [place] Hemoglobin [Mass/volume] in BloodOrdered By: Venkat Paredes on 08-20-2024 Hemoglobin (Bld) [Mass/Vol] 13.5 g/dL Normal 13.0-17.0 [facility] Comment on above: Performed By: #### B MP, CBC #### [address] Leukocytes [#/volume] correc tremaine for nucleated erythrocytes in Blood by Automated counOrdered By: Venkat Paredes on 08-20-2024 WBC corrected for nucl RBC Auto (Bld) [#/Vol] 9.6 10*3/uL 4.1-10.5 [facility] Leukocytes [#/volume] in Blo od by Automated countOrdered By: Venkat Paredes on 08-20-2024 WBC (Bld) [#/Vol] 9.6 10*3/uL Normal 4.1-10.5 [facility] Comment on above: Performed By: #### B MP, CBC #### [place] [address] [place] Lymphocytes [#/volume] in Bl ood by Automated countOrdered By: Venkat Paredes on 08-20-2024 Lymphocytes (Bld) [#/Vol] 2.6 10*3/uL Normal 1.00-4.8 [facility] Comment on above: Performed By: #### B MP, CBC #### [place] [address] [place] Lymphocytes/100 leukocytes i n Blood by Automated countOrdered By: Venkat Paredes on 08-20-2024 Lymphocytes/100 WBC (Bld) 27.5 % Normal . [facility] Comment on above: Performed By: #### B MP, CBC #### [place] [address] [place] MCH [Entitic mass] by Automa tremaine countOrdered By: Venkat Paredes on 08-20-2024 MCH (RBC) [Entitic mass] 25.9 pg Low 27.5-35.2 [facility] Comment on above: Performed By: #### B MP, CBC #### [place] [id number] [place] MCHC Auto (RBC) [Mass/Vol]Or dered By: Venkat Paredes on 08-20-2024 MCHC (RBC) [Mass/Vol] 33.3 g/dL 32.5-35.6 [facility] MCV [Entitic volume] by Auto mated countOrdered By: Venkat Paredes on 08-20-2024 MCV (RBC) [Entitic vol] 77.8 fL Low 83.5-101 [facility] Comment on above: Performed By: #### B MP, CBC #### [facility] [address] [place] [address] Neutrophils [#/volume] in Bl ood by Automated countOrdered By: Venkat Paredes on 08-20-2024 Neutrophils (Bld) [#/Vol] 5.7 10*3/uL Normal 1.8-7.7 [facility] Comment on above: Performed By: #### B MP, CBC #### [facility] [address] [place] [address] No Panel InformationOrdered By: Venkat Paredes on 08-20-2024 Estimated GFR (CKD-EPI) > 60.0 mL/Min [facility] Pharm[facility] Creatinine Clearance (Chem N/A [facility] Nucleated erythrocytes [Pres ence] in Blood by Automated countOrdered By: Venkat Paredes on 08-20-2024 Nucleated RBC Auto Ql (Bld) 0.2 /100{WBC} 0-0.5 [facility] Platelet mean volume [Entiti c volume] in Blood by Automated countOrdered By: Venkat Paredes on 08-20-2024 Platelet mean volume (Bld) [Entitic vol] 7.5 fL Normal 6.6-10.1 [facility] Comment on above: Performed By: #### B MP, CBC #### [facility] [address] [place] [address] Platelets [#/volume] in Bloo d by Automated countOrdered By: Venkat Paredes on 08-20-2024 Platelets (Bld) [#/Vol] 217 10*3/uL Normal 150-450 [facility] Comment on above: Performed By: #### B MP, CBC #### [address] Potassium [Moles/volume] in Serum or PlasmaOrdered By: Venkat Paredes on 08-20-2024 Potassium [Moles/Vol] 4.4 mmol/L Normal 3.5-5.1 [facility] Comment on above: Performed By: #### B MP, CBC #### [address] Serum or plasma anion gap de terminationOrdered By: Venkat Paredes on 08-20-2024 Anion gap [Moles/Vol] 11.9 mmol/L Normal 6.0-15.0 [facility] Comment on above: Performed By: #### B MP, CBC #### [address] Sodium [Moles/volume] in Ser um or PlasmaOrdered By: Venkat Paredes on 08-20-2024 Sodium [Moles/Vol] 143 mmol/L Normal 136-145 [facility] Comment on above: Performed By: #### B MP, CBC #### [address] Urea nitrogen [Mass/volume] in Serum or PlasmaOrdered By: Venkat Paredes on 08-20-2024 Urea nitrogen [Mass/Vol] 10 mg/dL Normal 7-25 [facility] Comment on above: Performed By: #### B MP, CBC #### [address] Reminderson 05-16-2024 Reminders Reminders From: Namita Alexander To: TEAGAN Sweet; Sent: 11/03/2023 10:50:57 EST Show up: 04/03/2024 11:50:00 EDT Subject: CHANTEL/KUB Due Date/Time: 05/03/2024 11:50:00 EDT Pt is to get KUB and CHANTEL done prior to appt. Called pt and advised of below message. Orders fax[facility] [place] [facility] [place] CHANTEL/KUB. Called and scheduled pt for 05/07/24 @ 10:00 AM. Pt notified. Pt seen KML on 05/09/24 to review imaging Normal [facility] Ambulatory Visit Summaryon 0 05-09-2024 Ambulatory [...] Sweet MD Where: [facility] [address] [place] [address]- You Need to Schedule the Following Appointments Follow Up with eKe NAVARRO, Patito Good, RENATA, URO When: Where: Medications What How Much When Instructions New tadalafil (Cialis 20 mg Tab) 1 Tablets By Mouth As Directed Refills: 3 Take one tab by mouth one to two hours prior to sexual activity. Do NOT exceed 20 mg (1 tab) in 24 hours. Pickup at [facility] [phone] Unchanged potassium citrate (potassium CITRATE 10 mEq [...] physician if questions or concerns Pharmacy Information [facility] [id number]: [address] [place], [place] [phone] Allergies Augmentin (Hives) Bee Stings morphine (Unknown) [...] to de (more content not included)... Normal [facility] Urology Office/Clinic Noteon 05-09-2024 Urology Office/Clinic [...] has improved. (more content not included)... Normal [facility] Comment on above: Result Comment: Elec tronically Signed By: Patito Sweet MD\.br\Date and Time Signed: 05/09/24 11:06 EDT\.br\Electronically Co-Signed By: Katherine Harrison\.br\Date and Time Co-Signed: 05/09/24 10:37 EDT Basic Metabolic Panelon 04-16 GFR/1.73 sq M.predicted MDRD (S/P/Bld) [Vol rate/Area] mL/min/{1.73_m2} Normal [facility] Comment on above: Performed By: #### B MP #### [address] Calcium [Mass/volume] in Ser um or PlasmaOrdered By: Patito Sweet on 05-07-2024 Calcium [Mass/Vol] 8.5 mg/dL Low 8.6-10.3 [facility] Comment on above: Result Comment: PERF ORMED BY: [place] [address] PATHOLOGIST CREDIT CONTROL OFFICER BENEDICTO WOOD M.D. Performed By: #### B MP #### [address] Carbon dioxide, total [Moles /volume] in Serum or PlasmaOrdered By: Patito Sweet on 05-07-2024 CO2 [Moles/Vol] 26.8 mmol/L Normal 21.0-31.0 [facility] Comment on above: Performed By: #### B MP #### [place] [address] [place] Chloride [Moles/volume] in S lilli or PlasmaOrdered By: Patito Sweet on 05-07-2024 Chloride [Moles/Vol] 105 mmol/L Normal 98-107 [facility] Comment on above: Performed By: #### B MP #### [place] [address] [place] Creatinine [Mass/volume] in Serum or PlasmaOrdered By: Patito Sweet on 05-07-2024 Creatinine [Mass/Vol] 1.12 mg/dL Normal 0.70-1.30 [facility] Comment on above: Performed By: #### B MP #### [facility] [address] Glucose [Mass/volume] in Ser um or PlasmaOrdered By: Patito Sweet on 05-07-2024 Glucose [Mass/Vol] 191 mg/dL High 70-100 [facility] Comment on above: ADA recommended refe rence rangeRandom Glucose Reference Range is dependent on time and content of last meal. Glucose of more than 200 mg/dL in a nonstressed, ambulatory subject supports the diagnosis of Diabetes Mellitus. Result Comment: [place] om Glucose Reference Range is dependent on time and content of last meal. Glucose of more than 200 mg/dL in a nonstressed, ambulatory subject supports the diagnosis of Diabetes Mellitus. ADA recommended reference range Performed By: #### B MP #### [facility] [address] No Panel InformationOrdered By: Patito Sweet on 05-07-2024 Estimated GFR (CKD-EPI) > 60.0 mL/Min [facility] Creatinine Clearance (Chem N/A [facility] Potassium [Moles/volume] in Serum or PlasmaOrdered By: Patito Sweet on 05-07-2024 Potassium [Moles/Vol] 4.2 mmol/L Normal 3.5-5.1 [facility] Comment on above: Performed By: #### B MP #### [facility] [address] Serum or plasma anion gap de terminationOrdered By: Patito Sweet on 05-07-2024 Anion gap [Moles/Vol] 9.4 mmol/L Normal 6.0-15.0 [facility] Comment on above: Performed By: #### B MP #### [facility] [address] [place] [address] [place] Sodium [Moles/volume] in Ser um or PlasmaOrdered By: Patito Sweet on 05-07-2024 Sodium [Moles/Vol] 137 mmol/L Normal 136-145 [facility] Comment on above: Performed By: #### B MP #### [facility] [address] [place] [address] US renal BIon 05-07-2024 US renal BI [facility] Main [place] [address] [place] [address] Ultrasound Report Signed Patient: Lima Loyd MR#: [id number] : 1965 Acct:[id number] Age/Sex: 58 / M ADM Date: 05/07/24 Loc: Room: Type: [facility] Attending Dr: Patito Sweet MD [...] Perez Jr., D.OAlejo05/07/2024 12:10 PM Dictation Location: [place] [address] Tech: Ghislaine Sim Transcribed By: ALDEN 05/07/24 1210 Dictated By: Abad Perez Jr, DO 05/07/24 1209 Signed By: 05/07/24 1210 Normal [facility] Urea nitrogen [Mass/volume] in Serum or PlasmaOrdered By: Patito Sweet on 05-07-2024 Urea nitrogen [Mass/Vol] 10 mg/dL Normal 7-25 [facility] Comment on above: Performed By: #### B MP #### [facility] [address] [place], [place] [id number] [facility] XR abdomen 1Von 05-07-2024 XR abdomen 1V [facility] Main [place] [address] [place] [address] XRay Report Signed Patient: Lima Loyd MR#: [id number] : 1965 Acct:[id number] Age/Sex: 58 / M ADM Date: 05/07/24 Loc: UL Room: Type: REG CLI Attending Dr: Patito [...] Perez Jr., D.O.05/07/2024 12:11 PM Dictation Location: [place] [address] Transcribed By: [facility] 05/07/24 1211 Dictated By: Abad Perez Jr, DO 05/07/24 1210 Signed By: 05/07/24 1211 Normal [facility] XR knee LT 3V - NOT FOR ER U Stew 03-13-2024 XR knee LT 3V - NOT FOR ER USE [facility] [address] [place] [address] XRay Report Signed Patient: Lima Loyd MR#: [id number] : 1965 Acct:[id number] Age/Sex: 58 / M ADM Date: 03/13/24 Loc: SOXD Room: Type: REG CLI Attending Dr: Gaurav Higuera DO Copies to: [...] Perez Jr., D.OAlejo03/13/2024 4:34 PM Dictation Location: [place] [address] Transcribed By: [facility] 03/13/24 1634 Dictated By: Abad Perez Jr, DO 03/13/24 1633 Signed By: 03/13/24 1634 Normal [facility] Consenton 12-18-2023 Consent [id number]#1.00TIFF Normal [facility] Registrationon 12-18-2023 Registration [id number]#1.00TIFF Normal [facility] Lab Reportson 11-24-2023 Lab Reports [id number]#1.00TIFF Normal [facility] Basic Metabolic Panelon GFR/1.73 sq M.predicted MDRD (S/P/Bld) [Vol rate/Area] mL/min/{1.73_m2} Normal [facility] Comment on above: Performed By: #### B MP #### [address] Calcium [Mass/volume] in Ser um or PlasmaOrdered By: Patito Sweet on 11-23-2023 Calcium [Mass/Vol] 8.8 mg/dL Normal 8.6-10.3 [facility] Comment on above: Result Comment: PERF ORMED BY: [address] [place] [address] PATHOLOGIST CREDIT CONTROL OFFICER BENEDICTO WOOD M.D. Performed By: #### B MP #### [address] Carbon dioxide, total [Moles /volume] in Serum or PlasmaOrdered By: Patito Sweet on 11-23-2023 CO2 [Moles/Vol] 28.9 mmol/L Normal 21.0-31.0 [facility] Comment on above: Performed By: #### B MP #### [address] Chloride [Moles/volume] in S lilli or PlasmaOrdered By: Patito Sweet on 11-23-2023 Chloride [Moles/Vol] 105 mmol/L Normal 98-107 [facility] Comment on above: Performed By: #### B MP #### [address] Creatinine [Mass/volume] in Serum or PlasmaOrdered By: Patito Sweet on 11-23-2023 Creatinine [Mass/Vol] 1.15 mg/dL Normal 0.70-1.30 [facility] Comment on above: Performed By: #### B MP #### [address] Glucose [Mass/volume] in Ser um or PlasmaOrdered By: Patito Sweet on 11-23-2023 Glucose [Mass/Vol] 119 mg/dL High 70-100 [facility] Comment on above: ADA recommended refe rence rangeRandom Glucose Reference Range is dependent on time and content of last meal. Glucose of more than 200 mg/dL in a nonstressed, ambulatory subject supports the diagnosis of Diabetes Mellitus. Result Comment: [place] om Glucose Reference Range is dependent on time and content of last meal. Glucose of more than 200 mg/dL in a nonstressed, ambulatory subject supports the diagnosis of Diabetes Mellitus. ADA recommended reference range Performed By: #### B MP #### [address] No Panel InformationOrdered By: Patito Sweet on 11-23-2023 Estimated GFR (CKD-EPI) > 60.0 mL/Min [facility] Creatinine Clearance (Chem N/A [facility] Potassium [Moles/volume] in Serum or PlasmaOrdered By: Patito Sweet on 11-23-2023 Potassium [Moles/Vol] 4.3 mmol/L Normal 3.5-5.1 [facility] Comment on above: Performed By: #### B MP #### [facility] [address] Serum or plasma anion gap de terminationOrdered By: Patito Sweet on 11-23-2023 Anion gap [Moles/Vol] 9.4 mmol/L Normal 6.0-15.0 [facility] Comment on above: Performed By: #### B MP #### [address] Sodium [Moles/volume] in Ser um or PlasmaOrdered By: Patito Sweet on 11-23-2023 Sodium [Moles/Vol] 139 mmol/L Normal 136-145 [facility] Comment on above: Performed By: #### B MP #### [facility] [address] [place] [address] Urea nitrogen [Mass/volume] in Serum or PlasmaOrdered By: Patito Sweet on 11-23-2023 Urea nitrogen [Mass/Vol] 11 mg/dL Normal 7-25 [facility] Comment on above: Performed By: #### B MP #### [place] [address] [place] Screenson 11-06-2023 Screens [id number]#1.00TIFF Normal [facility] Screens [id number]#1.00TIFF Normal [facility] Ambulatory Visit Summaryon 0 11-03-2023 Ambulatory Visit Summary LIMA LOYD :1965 Visit Date:11/03/2023 Ambulatory Visit Instructions Your Diagnosis Kidney stone BPH with urinary obstruction ED (erectile dysfunction) History of prostatitis Tests Performed Urnls Dip Stick Auto w/o Microscopy POC [id number] US Renal -- Results Pending -- XR [...] of [facility] Patient Educationon 11-03-19 24 Patient Education Urology Benign Prostatic Hyperplasia Benign [...] Follow these instructions at home: ? Take jyyu-vlw-hufoknr and prescription medicines only as told by [...] the medicine (more content not included)... Normal [facility] Urology Office/Clinic Noteon 11-03-2023 Urology Office/Clinic [...] he heard the stones hit the toilet. [place] some lower abdominal pain, sat down to [...] SE of dry mouth. Cysto 07/11/23 - pubvslhg-kc-vqttef bilobar hypertrophy, near kissing lateral lobes, 1+ trabeculations Calculated prostate volume: [address] 10/04 (more content not included)... Normal [facility] Comment on above: Result Comment: Elec tronically Signed By: Kee NAVARRO, Patito Good\.br\Date and Time Signed: 11/03/23 12:30 EST\.br\Electronically Co-Signed By: Namita Alexander\.br\Date and Time Co-Signed: 11/03/23 10:49 EST Damien 10-30-2023 L ------ Specimen: [id number] Received: 10/30/23 Status: RIK Carty Num: [id number] Spec Type: Surgical Subm Dr: Melissa Castellano MD Tissues: A Ganglion Cyst (RT MIDDLE FINGER, GANGLION C) Procedures: HE, Gross/Micro L3 Age/ Patient Sex Location Account Attending Physician Lima Loyd 58/[facility] [id number] Melissa Castellano MD SPEC NUM: [id number] RECD: 10/30/23 STATUS: RIK JORGE NUM: [id number] JAY: 10/30/23-[address] [facility] [address]: Melissa Castellano MD ENTERED: 10/30/23-1105 [facility] DR: LEANNE TYPE: Surgical DEPT: S ORDERED: [...] microscopic examination confirms the diagnosis. CPT Codes 69982 Specimen: [id number] Received: 10/30/23 Status: RIK Jorge Num: [id number] Spec Type: Surgical Subm Dr: Melissa Castellano MD Tissues: A Ganglion Cyst (RT MIDDLE FINGER, GANGLION C) Procedures: Héctor DUNLAP/Elsi L3 Patient: Lima Loyd [id number] (Continued) Signed (signature on file) Ai Redd MD 10/31/2309 [place] [facility] IntraOperative Documentson 12-13-2022 IntraOperative Documents [id number]#1.00TIFF [facility] Main OR Intraoperative Recor don 10-11-2023 Main OR Intraoperative Record IntraOp Document Type FT Summary Primary Physician: Patito Sweet MD Finalized Date/Time: 10/11/23 14:28:30 Pt. Name: LIMA LOYD Hussain Grace/Sex: 1965 Male Med Rec #: [id number] Physician: Patito Sweet MD Financial #: [id number] Pt. Type: A Room/Bed: [place] [address] Admit/Disch: 09/26/23 07:01:16 - 09/26/23 12:05:00 Institution: [...] 2 Entry 3 Case Attendee Tish ARROYO, HOME INSPECTOR, Queen Kee NAVARRO, Patito Wright RN, Anais Kumar Role Performed HOME INSPECTOR Surgeon - Primary School Leader - Primary Time In 09/26/23 09:45:00 09/26/23 09:45:00 09/26/23 09:45:00 Time Out 09/26/23 10:33:00 09/26/23 10:33:00 09/26/23 10:33:00 Procedure CYSTOSCOPY(.) CYSTOSCOPY(.) CYSTOSCOPY(.) Comments dr gramajo supervising Last Modified By: Kyle RN, Anais Wright RN, Anais Wright RN, Anais Castro 09/26/23 10:33:04 09/26/23 10:33:04 09/26/23 10:33:04 Entry 4 Entry 5 Case Attendee Polo Brizuela CST, Kimberly A Role Performed Scrub - Primary Staff - Other Time In 09/26/23 09:45:00 09/26/23 09:45:00 Time Out 09/26/23 10:33:00 09/26/23 10:00:00 Procedure CYSTOSCOPY(.) CYSTOSCOPY(.) Comments Last Modified By: Anais Wright RN, RN, Amy J 09/26/23 10:33:04 09/26/23 10:33:04 General Comments: BREA NUÑEZ, UROLIFT ARTS AND CRAFTS INSTRUCTOR, ALSO IN ATTENDANCE. HILARY FLORESstudio operations manager Protocols FT Pre-Care Text: Implements protective measures [...] PreOp Antibiotic Yes Time Out Tish ARROYO, HOME INSPECTOR, [facility] Kee Moss MD, Patito Good, Kyle RICHARD, Chata Hyman Kendall R, Sadie Marr CST Time Out Complete 09/26/23 10:09:00 Outcomes Met? [...] and tissue Entry 1 Skin Integrity Intact, [place], Warm, and Skin Abnormality No Dry Outcomes Met? Yes Last Modified By: Kyle RICHARD, Anais Castro 09/26/23 09:59:04 Post-Care Text: The [...] Secured in St (more content not included)... [facility] Consent for Anesthesiaon Consent for Anesthesia [id number]#1.00TIFF [facility] Discharge Instructionson Discharge Instructions [id number]#1.00TIFF [facility] IntraOperative Documentson 1 11-28-2022 IntraOperative Documents [id number]#1.00TIFF [facility] Preoperative Documentson Preoperative Documents [id number]#1.00TIFF [facility] COAGULATIONOrdered By: Sheree Lopez on 09-26-2023 aPTT Coag (PPP) [Time] 32.6 s Normal 25.1 - 36.5 second(s) [facility] Auto Coag Comment on above: Interpretive Data: Kennedi schuyleranastasiya 15 days - 4 weeks 1 - [...] the same coagulation reagent and instrumentation as [facility]. Currently there are no coagulation studies available worldwide for children to 14 days, and no normal ranges. Heparin therapeutic range (represented by Anti-Factor Xa activity of 0.2 - 0.4 U/mL) corresponds to PTT of 56.6 - 109.0 sec. INR Coag (PPP) [Relative time] 1.1 {INR} Invalid Interpretation Code [facility] Auto Coag Comment on above: Interpretive Data: I NR results are specifically intended to assess patients stabilized on long-term Anticoagulation therapy suggested INR s Less Intensive Anticoagulation 2.0 3.0 Conventional Range 3.0 4.5 PT Coag (PPP) [Time] 12.6 s High 9.4 - 1 2.5 second(s) [facility] Auto Coag Comment on above: [...] the same coagulation reagent and instrumentation as [facility]. Currently there are no coagulation studies available worldwide for children to 14 days, and no normal ranges. Consent for Procedure/Surger yon 09-26-2023 Consent for Procedure/Surgery [id number]#1.00TIFF Normal [facility] Consent for Treatmenton 09-15 Consent for Treatment [id number]#1.00TIFF Normal [facility] Discharge Instructionson Discharge Instructions LIMA LOYD [...] appointment in 1 month with PVR Where: [address], [address] [address] [phone] Business (1) Medications What How Much When Instructions Next Dose New acetaminophen-hydrocodone (P[place]mouth 325 mg-5 mg oral tablet) 1 Tablets By Mouth Every 6 hours as needed for for pain Duration: 3 Days Pickup at [facility] [id number] New levofloxacin (Levaquin 500 mg Tab) 1 Tablets By Mouth Every 24 hours Duration: 3 Days Pickup at [facility] [id number] New oxybutynin (oxybutynin 5 mg Tab) 1 Tablets By Mouth 3 times a day Pickup at [facility] [id number] Unchanged alprazolam (Xanax 0.25 mg Tab) 1 [...] tramadol (traMADOL 50 mg Tab) Pharmacy Information [facility] [id number]: [address] [place], [place] [phone] Allergies Augmentin (Hives) Bee Stings morphine (Unknown) Devices Implanted/Removed This Visit Notice: You have devices implanted this visit that may not be MRI compatible. Implanted CYSTOSCOPY Pelvis and Genitalia IMPLANT UROLIFT SYSTEM 09/26/2023 IMPLANT UROLIFT SYSTEM (6), 09/26/2023 Education Materials [facility] [place] Post-Operative Instructions for UroLift After your [...] you experien (more content not included)... Normal [facility] Comment on above: Result Comment: Elec tronically Signed By: Karen RICHARD, Marci Aceves\.br\Date and Time Signed: 09/26/23 11:05 EST H&P Updateon 09-26-2023 H&P Update [id number]#1.00TIFF Normal [facility] Inpatient Patient Summaryon 09-26-2023 Inpatient Patient Summary [place] [id number] [facility] Clinical Discharge Instructions PERSON INFORMATION Name: LIMA LOYD PHYSICIANS Admitting Physician: Patito Sweet MD Attending Physician: Patito Sweet MD PCP: Jeff Terrell MD Discharge Diagnosis: BPH with urinary obstruction; Other obstructive and reflux uropathy Comment: PATIENT EDUCATION INFORMATION Instructions: Lue - Urolift Post-Op Instructions (CUSTOM) Medication Leaflets: Follow up: With: Address: When: Patito Lue [address] [place] [address] Ave, [address], [facility] [address] [place] [address] [phone] Business (1) Comments: Call for followup appointment in 1 month with PVR MEDICATION LIST New Medications [facility] [id number], [address] [place] [id number], [phone] acetaminophen-hydrocodone (P[place]mouth 325 mg-5 mg oral tablet) 1 Tablets [...] tramadol (traMADOL 50 mg Tab) Comment: Clive [facility] Main OR PACU I Recordon 09-15 Main OR PACU I Record PACU Phase I Docum ent Type FT Summary Primary Physician: Patito Sweet MD Finalized Date/Time: 09/26/23 11:48:18 Pt. Name: LIMA LOYD/Sex: 1965 Male Med Rec #: [id number] Physician: Patito Sweet MD Financial #: [id number] Pt. Type: A Room/Bed: [facility]/ Admit/Disch: 09/26/23 07:01:16 - Institution: Case [...] Signed By: Fely Dowd RN 09/26/23 11:48 [facility] Monitor Recordon 09-26-2023 Monitor Record [id number]#1.00TIFF Normal [facility] Operative Reporton 3 Operative Report Patient: [...] home. Follow-up in 1 month PVR. Normal [facility] Comment on above: Result Comment: Elec tronically Signed By: Kee NAVARRO, Patito Good\.br\Date and Time Signed: 09/26/23 11:00 EST Outpatient Surgery Discharge Instructionon 09-26-2023 Outpatient Surgery Discharge Instruction [place] [id number] Patient Discharge Instructions PERSON INFORMATION Name: LIMA [...] THE NEAREST EMERGENCY ROOM OR CALL 911 IEVERT MICHAEL A, have received the attached patient education materials/instructions and have verbalized understanding: May we do a follow up call? Yes No I was present when discharge instructions were given ____ Patient Signature _ Date Clinican/Nurse Signature Date Follow up: With: Address: When: Patito Sweet [address], [place] [address], [address] [phone] Business (1) Comments: Call for followup appointment [...] to serve you. Thank you for choosing [facility] HERE ARE THE MEDICATION CHANGES THAT OCCURRED DURING YOUR HOSPITAL STAY New Medications [facility] [id number], [address] [place], [place] [id number], [phone] acetaminophen-hydrocodone ([place] 325 mg-5 mg oral tablet) 1 Tablets [...] Tab) PATIENT EDUCATION INFORMATION Instructions: [facility] [place] Post-Operative Instructions for UroLift After your [...] sent to (more content not included)... Normal [facility] Outside Radiologyon 09-26-20 23 Outside Radiology [id number]#[id number] Normal [facility] PT & PTTon 09-26-2023 aPTT Coag (PPP) [Time] 32.6 second(s) Normal 25.1-36.5 [facility] Comment on above: Result Comment: Para [...] the same coagulation reagent and instrumentation as [facility] Currently there are no coagulation studies available worldwide for children to 14 days, and no normal ranges. Heparin therapeutic range (represented by Anti-Factor Xa activity of 0.2 - 0.4 U/mL) corresponds to PTT of 56.6 - 109.0 sec. Performed By: #### 1 [id number] ####[facility] [address] [place] [address] INR Coag (PPP) [Relative time] 1.1 {INR} Invalid Interpretation Code [facility] Comment on above: Result Comment: INR results are specifically intended to assess patients stabilized on long-term Anticoagulation therapy suggested INR?s ?Less Intensive Anticoagulation? 2.0 ? 3.0 Conventional Range 3.0 ? 4.5 Performed By: #### 1 [id number] ####[facility] [address] [place] [address] PT Coag (PPP) [Time] 12.6 second(s) High 9.4-12.5 [facility] Comment on above: Result Comment: 15 [...] the same coagulation reagent and instrumentation as [facility] Currently there are no coagulation studies available worldwide for children to 14 days, and no normal ranges. Performed By: #### 1 [id number] ####[facility] [address] [place] [address] Patient Education - Texton 1 11-27-2022 Patient Education - Text [facility] [place] Post-Operative Instructions for UroLift After your [...] 24 ho (more content not included)... Normal [facility] Progress Note-Physicianon Progress Note-Physician Patient: LIMA LOYD Age: 58 years Sex: Male : 1965 Associated Diagnoses: None Author: Clyde Gramajo Jr., DO Postoperative Information Postoperative disposition: Postoperative disposition: Home. Optimetrix number: Optimetrix number [id number]. Anesthetic utilized: General. Physical Examination Vital Signs [...] Ambulatory Surgery Unit, and To home ). Clive [facility] Comment on above: Result Comment: Elec [...] hrs., # 30 tab(s), Refills(s) 0, Pharmacy: [facility] [id number], 188, cm, 05/31/23 8:37:00 EDT, Height/Lengt... potassium CITRATE 10 mEq ER Tab: 10 mEq, 1 tab(s), Oral, BID, 180 tab(s), Refill(s) 3, [facility] [id number], 188, cm, 08/18/23 10:17:00 EDT, Height/Length Dosing, [...] list: All Problems Anxiety / SNOMED CT 79592896 / Confirmed Arthritis / SNOMED CT 5116759 / Confirmed BPH with urinary obstruction / SNOMED CT 7803539788 / Confirmed Cervical radiculopathy / SNOMED CT 025068665 / Confirmed Depression / SNOMED CT 09340141 / Confirmed ED (erectile dysfunction) / SNOMED CT 2267998785 / Confirmed Gross hematuria / SNOMED CT 699352449 / Confirmed History of prostatitis / SNOMED CT 8004753380 / Confirmed HTN (hypertension) / SNOMED CT 3505588862 / Confirmed Insomnia / SNOMED CT 357231458 / Confirmed Kidney stone / SNOMED CT 323918523 / Confirmed Lumbar radiculopathy / SNOMED CT 791572235 / Confirmed Poor short term memory / SNOMED CT 438552843 / Confirmed Prostatitis / SNOMED CT 52222309 / Confirmed Renal cyst / SNOMED CT 0313434667 / Confirmed Shoulder impingement syndrome / SNOMED CT 459002277 / Confirmed Thoracic spondylosis / SNOMED CT 1173596358 / Confirmed Tobacco use / SNOMED CT 868113838 / Confirmed Tremor / SNOMED CT 44276373 / Confirmed UTI (urinary tract infection) / SNOMED CT 715494159 / Confirmed Venous insufficiency / SNOMED CT 740137171 / Confirmed Resolved: Hematoma / SNOMED CT 1155425576 Canceled: Balanitis / SNOMED CT 22693864 Canceled: Erectile dysfunction / SNOMED CT 5617125332 Canceled: Gross hematuria / SNOMED CT 470721220 Canceled: Lesion of bladder / SNOMED CT 301078665 Canceled: Renal hematoma / SNOMED CT 239299624 Histories Past Medical History: Resolved He (more content not included)... Normal [facility] Comment on above: Result Comment: Elec tronically Signed By: Clyde Gramajo Jr., DO\.estefanía\Date and Time Signed: 09/26/23 10:11 EST RAD - MISCon 09-19-2023 RAD - MISC [id number]#1.00TIFF Normal [facility] XR chest 2V*on 09-15-2023 XR chest 2V* [facility] [place] [address] XRay Report Signed Patient: Lima Loyd MR#: [id number] : 1965 Acct:[id number] Age/Sex: 58 / M ADM Date: 09/15/23 Loc: XD Room: Type: [facility] Attending Dr: Patito Sweet MD [...] Garrett Astudillo M.D.09/15/2023 2:56 PM Dictation Location: [place] [address] Transcribed By: [facility] 09/15/23 1456 Dictated By: Garrett Astudillo DO 09/15/23 1455 Signed By: 09/15/23 1456 Normal [facility] Outside Recordson 09-04-2023 Outside Records [id number]#1.00TIFF Normal [facility] ECG 12-Leadon 08-21-2023 ECG 12-Lead [id number]#1.00TIFF Normal [facility] Lab Reportson 08-21-2023 Lab Reports [id number]#1.00TIFF Normal [facility] Screenson 08-21-2023 Screens [id number]#1.00TIFF Normal [facility] Screens [id number]#1.00TIFF Normal [facility] Ambulatory Visit Summaryon 1 10-18-2022 Ambulatory Visit Summary LIMA LYOD :1965 Visit Date:08/18/2023 Ambulatory Visit Instructions Your Diagnosis Kidney stone BPH with urinary obstruction ED (erectile dysfunction) History of prostatitis Tests Performed Urnls Dip Stick Auto w/o Microscopy POC 62318 Your Care Team Attending Physician - Kee [...] Urnls Dip Stick Auto w/o Microscopy POC 54549 (08/18/2023) Bilirubin Urine Dipstick - Negative Blood Urine Dipstick - Negative Glucose Urine Dipstick - Negative Ketones Urine Dipstick - Negative Leukocytes Urine Dipstick - Negative Nitrite Urine Dipstick - Negative Protein Urine Dipstick - Negative Specific [place] Urine Dipstick - 1.010 Urine Appearance Urine [...] choosing us for your care. Clive [facility] Urology Office/Clinic Noteon 08-18-2023 Urology Office/Clinic Note [...] SE of dry mouth. Cysto 07/11/23 - ealkrhmh-hp-qrgrzs bilobar hypertrophy, near kissing lateral lobes, 1+ [...] to g (more content not included)... Normal [facility] Comment on above: Result Comment: Elec tronically Signed By: Patito Sweet MD.br\Date and Time Signed: 08/18/23 18:11 EDT\.br\Electronically Co-Signed By: Namita Alexander.br\Date and Time Co-Signed: 08/18/23 11:08 EDT Lab Reportson 08-16-2023 Lab Reports [id number]#1.00TIFF Normal [facility] Alanine aminotransferase [En zymatic activity/volume] in Serum or PlasmaOrdered By: Gaurav Higuera on 08-15-2023 ALT [Catalytic activity/Vol] 17 U/L 7-52 [facility] Albumin [Mass/volume] in Ser um or Plasma by Bromocresol green (BCG) dye binding methoOrdered By: Gaurav Higuera on 08-15-2023 Albumin BCG dye [Mass/Vol] 4.2 g/dL 3.5-5.7 [facility] Alkaline phosphatase [Enzyma tic activity/volume] in Serum or PlasmaOrdered By: Gaurav Higuera on 08-15-2023 ALP [Catalytic activity/Vol] 47 U/L 34-104 [facility] Aspartate aminotransferase [ Enzymatic activity/volume] in Serum or PlasmaOrdered By: Gaurav Higuera on 08-15-2023 AST [Catalytic activity/Vol] 13 U/L 13-39 [facility] Basophils Auto (Bld) [#/Vol] Ordered By: Gaurav Higuera on 08-15-2023 Basophils (Bld) [#/Vol] 0.1 10*3/uL 0.0-0.2 [facility] Basophils/100 WBC Auto (Bld) Ordered By: Gaurav Higuera on 08-15-2023 Basophils/100 WBC (Bld) 0.8 % . [facility] Bilirubin.total [Mass/volume ] in Serum or PlasmaOrdered By: Gaurav Higuera on 08-15-2023 Bilirubin [Mass/Vol] 0.4 mg/dL 0.3-1.0 [facility] Calcium [Mass/volume] in Ser um or PlasmaOrdered By: Gaurav Higuera on 08-15-2023 Calcium [Mass/Vol] 8.6 mg/dL 8.6-10.3 [facility] Carbon dioxide, total [Moles /volume] in Serum or PlasmaOrdered By: Gaurav Higuera on 08-15-2023 CO2 [Moles/Vol] 23.6 mmol/L 21.0-31.0 [facility] Chloride [Moles/volume] in S lilli or PlasmaOrdered By: Gaurav Higuera on 08-15-2023 Chloride [Moles/Vol] 108 mmol/L 98-107 [facility] Creatinine [Mass/volume] in Serum or PlasmaOrdered By: Gaurav Higuera on 08-15-2023 Creatinine [Mass/Vol] 1.50 mg/dL 0.70-1.30 [facility] Eosinophils Auto (Bld) [#/Vo l]Ordered By: Gaurav Higuera on 08-15-2023 Eosinophils (Bld) [#/Vol] 0.2 10*3/uL 0.0-0.45 [facility] Eosinophils/100 WBC Auto (Bl d)Ordered By: Gaurav Higuera on 08-15-2023 Eosinophils/100 WBC (Bld) 2.5 % . [facility] Erythrocyte distribution wid th Auto (RBC) [Ratio]Ordered By: Gaurav Higuera on 08-15-2023 Erythrocyte distribution width (RBC) [Ratio] 15.4 % 12.0-14.8 [facility] Globulin Calc (S) [Mass/Vol] Ordered By: Gaurav Higuera on 08-15-2023 Globulin (S) [Mass/Vol] 2.3 g/dL [facility] Glucose [Mass/volume] in Ser um or PlasmaOrdered By: Gaurav Higuera on 08-15-2023 Glucose [Mass/Vol] 120 mg/dL 70-100 [facility] Comment on above: ADA recommended refe rence range Glucose mean value [Mass/vol ume] in Blood Estimated from glycated hemoglobinOrdered By: Gaurav Higuera on 08-15-2023 Average glucose Estimated from glycated hemoglobin (Bld) [Mass/Vol] 134 mg/dL [facility] Hematocrit Auto (Bld) [Volum e fraction]Ordered By: Gaurav Higuera on 08-15-2023 Hematocrit (Bld) [Volume fraction] 40.0 % 38.8-50.0 [facility] Hemoglobin [Mass/volume] in BloodOrdered By: Gaurav Higuera on 08-15-2023 Hemoglobin (Bld) [Mass/Vol] 13.4 g/dL 13.0-17.0 [facility] Laboratory - Hematology and Cell countsOrdered By: Gaurav Higuera on 08-15-2023 HbA1c (Bld) [Mass fraction] 6.3 % 4.3-5.6 [facility] Comment on above: Increased risk for d iabetes: 5.7 - 6.4diabetes: >6.4glycemic control for adults with diabetes: <7.0 Leukocytes [#/volume] correc tremaine for nucleated erythrocytes in Blood by Automated counOrdered By: Gaurav Higuera on 08-15-2023 WBC corrected for nucl RBC Auto (Bld) [#/Vol] 6.6 10*3/uL 4.1-10.5 [facility] Lymphocytes Auto (Bld) [#/Vo l]Ordered By: Gaurav Higuera on 08-15-2023 Lymphocytes (Bld) [#/Vol] 2.0 10*3/uL 1.00-4.8 [facility] Lymphocytes/100 WBC Auto (Bl d)Ordered By: Gaurav Higuera on 08-15-2023 Lymphocytes/100 WBC (Bld) 30.2 % . [facility] MCH Auto (RBC) [Entitic mass ]Ordered By: Gaurav Higuera on 08-15-2023 MCH (RBC) [Entitic mass] 26.0 pg 27.5-35.2 [facility] MCHC Auto (RBC) [Mass/Vol]Or dered By: Gaurav Higuera on 08-15-2023 MCHC (RBC) [Mass/Vol] 33.5 g/dL 32.5-35.6 [facility] MCV Auto (RBC) [Entitic vol] Ordered By: Gaurav Higuera on 08-15-2023 MCV (RBC) [Entitic vol] 77.7 fL 83.5-101 [facility] Monocytes Auto (Bld) [#/Vol] Ordered By: Gaurav Higuera on 08-15-2023 Monocytes (Bld) [#/Vol] 0.7 10*3/uL 0.0-0.8 [facility] Monocytes/100 WBC Auto (Bld) Ordered By: aGurav Higuera on 08-15-2023 Monocytes/100 WBC (Bld) 10.3 % . [facility] Neutrophils Auto (Bld) [#/Vo l]Ordered By: Gaurav Higuera on 08-15-2023 Neutrophils (Bld) [#/Vol] 3.7 10*3/uL 1.8-7.7 [facility] Neutrophils/100 WBC Auto (Bl d)Ordered By: Gaurav Higuera on 08-15-2023 Neutrophils/100 WBC (Bld) 56.2 % . [facility] No Panel InformationOrdered By: Gaurav Higuera on 08-15-2023 Estimated GFR (CKD-EPI) 53.298 mL/Min [facility] Creatinine Clearance (Chem N/A [facility] Nucleated erythrocytes [Pres ence] in Blood by Automated countOrdered By: Gaurav Higuera on 08-15-2023 Nucleated RBC Auto Ql (Bld) 0.1 /100{WBC} 0-0.5 [facility] Platelet mean volume Auto (B ld) [Entitic vol]Ordered By: Gaurav Higuera on 08-15-2023 Platelet mean volume (Bld) [Entitic vol] 7.2 fL 6.6-10.1 [facility] Platelets Auto (Bld) [#/Vol] Ordered By: Gaurav Higuera on 08-15-2023 Platelets (Bld) [#/Vol] 220 10*3/uL 150-450 [facility] Potassium [Moles/volume] in Serum or PlasmaOrdered By: Gaurav Higuera on 08-15-2023 Potassium [Moles/Vol] 4.3 mmol/L 3.5-5.1 [facility] Protein [Mass/volume] in Ser um or PlasmaOrdered By: Gaurav Higuera on 08-15-2023 Protein [Mass/Vol] 6.5 g/dL 6.4-8.9 [facility] RBC Auto (Bld) [#/Vol]Ordere d By: Gaurav Higuera on 08-15-2023 RBC (Bld) [#/Vol] 5.14 10*6/uL 3.90-5.60 [facility] Serum or plasma albumin/glob ulin mass ratioOrdered By: Gaurav Higuera on 08-15-2023 Albumin/Globulin [Mass ratio] 1.8 {ratio} [facility] Serum or plasma anion gap de terminationOrdered By: Gaurav Higuera on 08-15-2023 Anion gap [Moles/Vol] 10.7 mmol/L 6.0-15.0 [facility] Sodium [Moles/volume] in Ser um or PlasmaOrdered By: Gaurav Higuera on 08-15-2023 Sodium [Moles/Vol] 138 mmol/L 136-145 [facility] Urea nitrogen [Mass/volume] in Serum or PlasmaOrdered By: Gaurav Higuera on 08-15-2023 Urea nitrogen [Mass/Vol] 15 mg/dL 7-25 [facility] WBC Auto (Bld) [#/Vol]Ordere d By: Gaurav Higuera on 08-15-2023 WBC (Bld) [#/Vol] 6.6 10*3/uL 4.1-10.5 [facility] Urology Office/Clinic Noteon 07-16-2023 Urology Office/Clinic Note [...] SE of dry mouth. Cysto 07/11/23 - ylwsvijj-ta-yaomox bilobar hypertrophy, near kissing lateral lobes, 1% [...] With When Contact Information JANINE GARCIA PA-C, RENATA [address] [place] [address] Additional Instructions: follow up with KML sched already Patient Education Prostatitis I, Namita Alexander, personally scribed for Janine Garcia PA-C on 07/13/2023 11:00:30. . Documentation recorded by the scribkathy Alexander accurately reflects the services(s) I performed and decisions made by me. Authentic (more content not included)... Normal [facility] Comment on above: Result Comment: Elec [...] Urnls Dip Stick Auto w/o Microscopy POC 86620 Your Care Team Attending Physician - JANINE [...] Follow-Up Appointments Monday 10:00 AM EDT With: Kee NAVARRO, Patito Good Where: [facility] Patient Educationon 07-13-20 23 Patient Education [...] these instructions at home: Medicines ? Take vxvj-wps-vwjhfoa and prescription medicines only as told by [...] Where to find more information ? National [place] of Diabetes and Digestive and Kidney Diseases: (more content not included)... Normal [facility] Operative Reporton Operative Report [id number]#1.00CD:127 Normal [facility] Reminderson 07-12-2023 Reminders - From: Namita Alexander To: [facility] - Recalls Lue; Sent: 06/02/2023 16:19:22 EDT Show up: 06/30/2023 16:19:00 EDT Subject: Reminder Message Due Date/Time: 07/07/2023 16:19:00 EDT Pt needs KUB and CHANTEL prior to cysto on 07/11/23. Pt still needs the CHANTEL scheduled. Pt prefers [facility]. left vm for patient to call the office to see if he had testing done CHANTEL/KUB done and reviewed. Normal [facility] RAD - Ultrasound Reporton RAD - Ultrasound Report [id number]#1.00CD:127 Normal [facility] RAD - MISCon 07-10-2023 RAD - MISC [id number]#1.00CD:127 Normal [facility] Insurance Correspondenceon 0 06-13-2023 Insurance Correspondence [id number]#[id number]:127 Normal [facility] Screenson 06-01-2023 Screens [id number]#[id number]:127 [facility] Screens [id number]#[id number]:127 Normal [facility] Urology Office/Clinic Noteon 06-01-2023 Urology Office/Clinic [...] scan -Cont Cialis as indigestion allows Ordered: 51592 Measure Post Void residual urine and/or bladder [...] a k (more content not included)... Normal [facility] Comment on above: Result Comment: Elec tronically [...] Follow these instructions at home: ? Take mnnq-pfv-vesiftm and prescription medicines only as told by [...] the medicine (more content not included)... Normal [facility] Alanine aminotransferase [En zymatic activity/volume] in Serum or PlasmaOrdered By: Gaurav Higuera on 03-31-2023 ALT [Catalytic activity/Vol] 16 U/L 7-52 [facility] Albumin [Mass/volume] in Ser um or Plasma by Bromocresol green (BCG) dye binding methoOrdered By: Gaurav Higuera on 03-31-2023 Albumin BCG dye [Mass/Vol] 4.4 g/dL 3.5-5.7 [facility] Alkaline phosphatase [Enzyma tic activity/volume] in Serum or PlasmaOrdered By: Gaurav Higuera on 03-31-2023 ALP [Catalytic activity/Vol] 56 U/L 34-104 [facility] Aspartate aminotransferase [ Enzymatic activity/volume] in Serum or PlasmaOrdered By: Gaurav Higuera on 03-31-2023 AST [Catalytic activity/Vol] 12 U/L 13-39 [facility] Basophils Auto (Bld) [#/Vol] Ordered By: Gaurav Higuera on 03-31-2023 Basophils (Bld) [#/Vol] 0.0 10*3/uL 0.0-0.2 [facility] Basophils/100 WBC Auto (Bld) Ordered By: Gaurav Higuera on 03-31-2023 Basophils/100 WBC (Bld) 0.3 % . [facility] Bilirubin.total [Mass/volume ] in Serum or PlasmaOrdered By: Gaurav Higuera on 03-31-2023 Bilirubin [Mass/Vol] 0.7 mg/dL 0.3-1.0 [facility] Calcium [Mass/volume] in Ser um or PlasmaOrdered By: Gaurav Higuera on 03-31-2023 Calcium [Mass/Vol] 8.8 mg/dL 8.6-10.3 [facility] Carbon dioxide, total [Moles /volume] in Serum or PlasmaOrdered By: Gaurav Higuera on 03-31-2023 CO2 [Moles/Vol] 26.7 mmol/L 21.0-31.0 [facility] Chloride [Moles/volume] in S lilli or PlasmaOrdered By: Gaurav Higuera on 03-31-2023 Chloride [Moles/Vol] 106 mmol/L 98-107 [facility] Creatinine [Mass/volume] in Serum or PlasmaOrdered By: Gaurav Higuera on 03-31-2023 Creatinine [Mass/Vol] 1.24 mg/dL 0.70-1.30 [facility] Eosinophils Auto (Bld) [#/Vo l]Ordered By: Gaurav Higuera on 03-31-2023 Eosinophils (Bld) [#/Vol] 0.1 10*3/uL 0.0-0.45 [facility] Eosinophils/100 WBC Auto (Bl d)Ordered By: Gaurav Higuera on 03-31-2023 Eosinophils/100 WBC (Bld) 1.0 % . [facility] Erythrocyte distribution wid th Auto (RBC) [Ratio]Ordered By: Gaurav Higuera on 03-31-2023 Erythrocyte distribution width (RBC) [Ratio] 16.1 % 12.0-14.8 [facility] Globulin Calc (S) [Mass/Vol] Ordered By: Gaurav Higuera on 03-31-2023 Globulin (S) [Mass/Vol] 2.1 g/dL [facility] Glucose [Mass/volume] in Ser um or PlasmaOrdered By: Gaurav Higuera on 03-31-2023 Glucose [Mass/Vol] 105 mg/dL 70-100 [facility] Comment on above: ADA recommended refe rence range Glucose mean value [Mass/vol ume] in Blood Estimated from glycated hemoglobinOrdered By: Gaurav Higuera on 03-31-2023 Average glucose Estimated from glycated hemoglobin (Bld) [Mass/Vol] 151 mg/dL [facility] Hematocrit Auto (Bld) [Volum e fraction]Ordered By: Gaurav Higuera on 03-31-2023 Hematocrit (Bld) [Volume fraction] 41.1 % 38.8-50.0 [facility] Hemoglobin [Mass/volume] in BloodOrdered By: Gaurav Higuera on 03-31-2023 Hemoglobin (Bld) [Mass/Vol] 13.8 g/dL 13.0-17.0 [facility] Laboratory - Hematology and Cell countsOrdered By: Gaurav Higuera on 03-31-2023 HbA1c (Bld) [Mass fraction] 6.9 % 4.3-5.6 [facility] Comment on above: Increased risk for d iabetes: 5.7 - 6.4diabetes: >6.4glycemic control for adults with diabetes: <7.0 Leukocytes [#/volume] correc tremaine for nucleated erythrocytes in Blood by Automated counOrdered By: Gaurav Higuera on 03-31-2023 WBC corrected for nucl RBC Auto (Bld) [#/Vol] 9.6 10*3/uL 4.1-10.5 [facility] Lymphocytes Auto (Bld) [#/Vo l]Ordered By: Gaurav Higuera on 03-31-2023 Lymphocytes (Bld) [#/Vol] 2.1 10*3/uL 1.00-4.8 [facility] Lymphocytes/100 WBC Auto (Bl d)Ordered By: Gaurav Higuera on 03-31-2023 Lymphocytes/100 WBC (Bld) 21.5 % . [facility] MCH Auto (RBC) [Entitic mass ]Ordered By: Gaurav Higuera on 03-31-2023 MCH (RBC) [Entitic mass] 26.3 pg 27.5-35.2 [facility] MCHC Auto (RBC) [Mass/Vol]Or dered By: Gaurav Higuera on 03-31-2023 MCHC (RBC) [Mass/Vol] 33.6 g/dL 32.5-35.6 [facility] MCV Auto (RBC) [Entitic vol] Ordered By: Gaurav Higuera on 03-31-2023 MCV (RBC) [Entitic vol] 78.2 fL 83.5-101 [facility] Monocytes Auto (Bld) [#/Vol] Ordered By: Gaurav Higuera on 03-31-2023 Monocytes (Bld) [#/Vol] 0.7 10*3/uL 0.0-0.8 [facility] Monocytes/100 WBC Auto (Bld) Ordered By: Gaurav Higuera on 03-31-2023 Monocytes/100 WBC (Bld) 7.2 % . [facility] Neutrophils Auto (Bld) [#/Vo l]Ordered By: Gaurav Higuera on 03-31-2023 Neutrophils (Bld) [#/Vol] 6.7 10*3/uL 1.8-7.7 [facility] Neutrophils/100 WBC Auto (Bl d)Ordered By: Gaurav Higuera on 03-31-2023 Neutrophils/100 WBC (Bld) 70.0 % . [facility] No Panel InformationOrdered By: Gaurav Higuera on 03-31-2023 Estimated GFR (CKD-EPI) > 60.0 mL/Min [facility] Creatinine Clearance (Chem N/A [facility] Nucleated erythrocytes [Pres ence] in Blood by Automated countOrdered By: Gaurav Higuera on 03-31-2023 Nucleated RBC Auto Ql (Bld) 0.1 /100{WBC} 0-0.5 [facility] Platelet mean volume Auto (B ld) [Entitic vol]Ordered By: Gaurav Higuera on 03-31-2023 Platelet mean volume (Bld) [Entitic vol] 7.0 fL 6.6-10.1 [facility] Platelets Auto (Bld) [#/Vol] Ordered By: Gaurav Higuera on 03-31-2023 Platelets (Bld) [#/Vol] 195 10*3/uL 150-450 [facility] Potassium [Moles/volume] in Serum or PlasmaOrdered By: Gaurav Higuera on 03-31-2023 Potassium [Moles/Vol] 4.2 mmol/L 3.5-5.1 [facility] Prostate specific Ag [Mass/v olume] in Serum or PlasmaOrdered By: Patito Sweet on 03-31-2023 Prostate specific Ag [Mass/Vol] 0.650 ng/mL 0.000-4.00 0 [facility] Protein [Mass/volume] in Ser um or PlasmaOrdered By: Gaurav Higuera on 03-31-2023 Protein [Mass/Vol] 6.5 g/dL 6.4-8.9 [facility] RBC Auto (Bld) [#/Vol]Ordere d By: Gaurav Higuera on 03-31-2023 RBC (Bld) [#/Vol] 5.25 10*6/uL 3.90-5.60 [facility] Serum or plasma albumin/glob ulin mass ratioOrdered By: Gaurav Higuera on 03-31-2023 Albumin/Globulin [Mass ratio] 2.1 {ratio} [facility] Serum or plasma anion gap de terminationOrdered By: Gaurav Higuera on 03-31-2023 Anion gap [Moles/Vol] 11.5 mmol/L 6.0-15.0 [facility] Sodium [Moles/volume] in Ser um or PlasmaOrdered By: Gaurav Higuera on 03-31-2023 Sodium [Moles/Vol] 140 mmol/L 136-145 [facility] Urate [Mass/volume] in Serum or PlasmaOrdered By: Patito Sweet on 03-31-2023 Urate [Mass/Vol] 7.9 mg/dL 4.4-7.6 [facility] Urea nitrogen [Mass/volume] in Serum or PlasmaOrdered By: Gaurav Higuera on 03-31-2023 Urea nitrogen [Mass/Vol] 17 mg/dL 7-25 [facility] WBC Auto (Bld) [#/Vol]Ordere d By: Gaurav Higuera on 03-31-2023 WBC (Bld) [#/Vol] 9.6 10*3/uL 4.1-10.5 [facility] Alanine aminotransferase [En zymatic activity/volume] in Serum or PlasmaOrdered By: Gaurav Higuera on 02-28-2023 ALT [Catalytic activity/Vol] 11 U/L 7-52 [facility] Albumin [Mass/volume] in Ser um or Plasma by Bromocresol green (BCG) dye binding methoOrdered By: Gaurav Higuera on 02-28-2023 Albumin BCG dye [Mass/Vol] 4.1 g/dL 3.5-5.7 [facility] Alkaline phosphatase [Enzyma tic activity/volume] in Serum or PlasmaOrdered By: Gaurav Higuera on 02-28-2023 ALP [Catalytic activity/Vol] 55 U/L 34-104 [facility] Aspartate aminotransferase [ Enzymatic activity/volume] in Serum or PlasmaOrdered By: Gaurav Higuera on 02-28-2023 AST [Catalytic activity/Vol] 8 U/L 13-39 [facility] Basophils Auto (Bld) [#/Vol] Ordered By: Gaurav Higuera on 02-28-2023 Basophils (Bld) [#/Vol] 0.0 10*3/uL 0.0-0.2 [facility] Basophils/100 WBC Auto (Bld) Ordered By: Gaurav Higuera on 02-28-2023 Basophils/100 WBC (Bld) 0.6 % . [facility] Bilirubin.total [Mass/volume ] in Serum or PlasmaOrdered By: Gaurav Higuera 02-28-2023 Bilirubin [Mass/Vol] 0.3 mg/dL 0.3-1.0 [facility] Calcium [Mass/volume] in Ser um or PlasmaOrdered By: Gaurav Higuera 02-28-2023 Calcium [Mass/Vol] 8.5 mg/dL 8.6-10.3 [facility] Carbon dioxide, total [Moles /volume] in Serum or PlasmaOrdered By: Gaurav Higuera 02-28-2023 CO2 [Moles/Vol] 25.3 mmol/L 21.0-31.0 [facility] Chloride [Moles/volume] in S lilli or PlasmaOrdered By: Gaurav Higuera 02-28-2023 Chloride [Moles/Vol] 109 mmol/L 98-107 [facility] Creatinine [Mass/volume] in Serum or PlasmaOrdered By: Gaurav Higuera 02-28-2023 Creatinine [Mass/Vol] 1.24 mg/dL 0.70-1.30 [facility] Eosinophils Auto (Bld) [#/Vo l]Ordered By: Gaurav Higuera on 02-28-2023 Eosinophils (Bld) [#/Vol] 0.1 10*3/uL 0.0-0.45 [facility] Eosinophils/100 WBC Auto (Bl d)Ordered By: Gaurav Higuera on 02-28-2023 Eosinophils/100 WBC (Bld) 1.0 % . [facility] Erythrocyte distribution wid th Auto (RBC) [Ratio]Ordered By: Gaurav Higuera on 02-28-2023 Erythrocyte distribution width (RBC) [Ratio] 16.8 % 12.0-14.8 [facility] Globulin Calc (S) [Mass/Vol] Ordered By: Gaurav Higuera on 02-28-2023 Globulin (S) [Mass/Vol] 2.4 g/dL [facility] Glucose [Mass/volume] in Ser um or PlasmaOrdered By: Gaurav Higuera on 02-28-2023 Glucose [Mass/Vol] 131 mg/dL 70-100 [facility] Comment on above: ADA recommended refe rence range Glucose mean value [Mass/vol ume] in Blood Estimated from glycated hemoglobinOrdered By: Gaurav Higuera on 02-28-2023 Average glucose Estimated from glycated hemoglobin (Bld) [Mass/Vol] 143 mg/dL [facility] Hematocrit Auto (Bld) [Volum e fraction]Ordered By: Gaurav Higuera on 02-28-2023 Hematocrit (Bld) [Volume fraction] 41.1 % 38.8-50.0 [facility] Hemoglobin [Mass/volume] in BloodOrdered By: Gaurav Higuera on 02-28-2023 Hemoglobin (Bld) [Mass/Vol] 13.3 g/dL 13.0-17.0 [facility] Laboratory - Hematology and Cell countsOrdered By: Gaurav Higuera on 02-28-2023 HbA1c (Bld) [Mass fraction] 6.6 % 4.3-5.6 [facility] Comment on above: Increased risk for d iabetes: 5.7 - 6.4diabetes: >6.4glycemic control for adults with diabetes: <7.0 Leukocytes [#/volume] correc tremaine for nucleated erythrocytes in Blood by Automated counOrdered By: Gaurav Higuera on 02-28-2023 WBC corrected for nucl RBC Auto (Bld) [#/Vol] 8.4 10*3/uL 4.1-10.5 [facility] Lymphocytes Auto (Bld) [#/Vo l]Ordered By: Gaurav Higuera on 02-28-2023 Lymphocytes (Bld) [#/Vol] 2.3 10*3/uL 1.00-4.8 [facility] Lymphocytes/100 WBC Auto (Bl d)Ordered By: Gaurav Higuera on 02-28-2023 Lymphocytes/100 WBC (Bld) 27.0 % . [facility] MCH Auto (RBC) [Entitic mass ]Ordered By: Gaurav Higuera on 02-28-2023 MCH (RBC) [Entitic mass] 24.8 pg 27.5-35.2 [facility] MCHC Auto (RBC) [Mass/Vol]Or dered By: Gaurav Higuera on 02-28-2023 MCHC (RBC) [Mass/Vol] 32.4 g/dL 32.5-35.6 [facility] MCV Auto (RBC) [Entitic vol] Ordered By: Gaurav Higuera on 02-28-2023 MCV (RBC) [Entitic vol] 76.7 fL 83.5-101 [facility] Monocytes Auto (Bld) [#/Vol] Ordered By: Gaurav Higuera on 02-28-2023 Monocytes (Bld) [#/Vol] 0.9 10*3/uL 0.0-0.8 [facility] Monocytes/100 WBC Auto (Bld) Ordered By: Gaurav Higuera on 02-28-2023 Monocytes/100 WBC (Bld) 10.1 % . [facility] Neutrophils Auto (Bld) [#/Vo l]Ordered By: Gaurav Higuera on 02-28-2023 Neutrophils (Bld) [#/Vol] 5.2 10*3/uL 1.8-7.7 [facility] Neutrophils/100 WBC Auto (Bl d)Ordered By: Gaurav Higuera on 02-28-2023 Neutrophils/100 WBC (Bld) 61.3 % . [facility] No Panel InformationOrdered By: Gaurav Higuera on 02-28-2023 Estimated GFR (CKD-EPI) > 60.0 mL/Min [facility] Creatinine Clearance (Chem N/A [facility] Nucleated erythrocytes [Pres ence] in Blood by Automated countOrdered By: Gaurav Higuera on 02-28-2023 Nucleated RBC Auto Ql (Bld) 0.1 /100{WBC} 0-0.5 [facility] Platelet mean volume Auto (B ld) [Entitic vol]Ordered By: Gaurav Higuera on 02-28-2023 Platelet mean volume (Bld) [Entitic vol] 7.2 fL 6.6-10.1 [facility] Platelets Auto (Bld) [#/Vol] Ordered By: Gaurav Higuera on 02-28-2023 Platelets (Bld) [#/Vol] 239 10*3/uL 150-450 [facility] Potassium [Moles/volume] in Serum or PlasmaOrdered By: Gaurav Higuera on 02-28-2023 Potassium [Moles/Vol] 3.9 mmol/L 3.5-5.1 [facility] Protein [Mass/volume] in Ser um or PlasmaOrdered By: Gaurav Higuera on 02-28-2023 Protein [Mass/Vol] 6.5 g/dL 6.4-8.9 [facility] RBC Auto (Bld) [#/Vol]Ordere d By: Gaurav Higuera on 02-28-2023 RBC (Bld) [#/Vol] 5.36 10*6/uL 3.90-5.60 [facility] Serum or plasma albumin/glob ulin mass ratioOrdered By: Gaurav Higuera on 02-28-2023 Albumin/Globulin [Mass ratio] 1.7 {ratio} [facility] Serum or plasma anion gap de terminationOrdered By: Gaurav Higuera on 02-28-2023 Anion gap [Moles/Vol] 9.6 mmol/L 6.0-15.0 [facility] Sodium [Moles/volume] in Ser um or PlasmaOrdered By: Gaurav Higuera on 02-28-2023 Sodium [Moles/Vol] 140 mmol/L 136-145 [facility] Urea nitrogen [Mass/volume] in Serum or PlasmaOrdered By: Gaurav Higuera on 02-28-2023 Urea nitrogen [Mass/Vol] 12 mg/dL 7-25 [facility] WBC Auto (Bld) [#/Vol]Ordere d By: Gaurav Higuera on 02-28-2023 WBC (Bld) [#/Vol] 8.4 10*3/uL 4.1-10.5 [facility] CALCULI, URINARYon 3 2,8 Dihydroxyadenine Normal [facility] Comment on above: Performed By: #### C ALCULI #### [facility] [address] [address] [address] Peter Kyle Ammonium Acid Urate Normal [facility] Comment on above: Performed By: #### C ALCULI #### [facility] [address] [address] [address] Peter Kyle Bilirubin Ql (U) Normal [facility] Comment on above: Performed By: #### C ALCULI #### [facility] [address] [address] [address] Peter Kyle Ca Oxalate Dihydrate 30 % [facility] Comment on above: Performed By: #### C ALCULI #### [facility] [address] [address] [address] Peter Kyle CaHPO4 (Brushite) Normal [facility] Comment on above: Performed By: #### C ALCULI #### [facility] [address] [address] [address] Peter Kyle Calcium Bilirubinate Normal [facility] Comment on above: Performed By: #### C ALCULI #### [facility] [address] [address] [address] Peter Kyle Calcium Carbonate Normal [facility] Comment on above: Performed By: #### C ALCULI #### [facility] [address] [address] [address] Peter Kyle Calcium Oxalate Monohydrate 70 % Normal [facility] Comment on above: Performed By: #### C ALCULI #### [facility] [address] [address] [address] Peter Kyle Calcium Palmitate Normal [facility] Comment on above: Performed By: #### C ALCULI #### [facility] [address] [address] [address] Peter Kyle Calcium Phosphate Normal [facility] Comment on above: Performed By: #### C ALCULI #### [facility] [address] [address] [address] Peter Kyle Calcium Stearate [facility] Comment on above: Performed By: #### C ALCULI #### [facility] [address] [address] [address] Peter Kyle Carbonate Apatite [facility] Comment on above: Performed By: #### C ALCULI #### [facility] [address] [address] [address] Peter Kyle Cellular Material [facility] Comment on above: Performed By: #### C ALCULI #### [facility] [address] [address] [address] Peter Kyle Cholesterol [facility] Comment on above: Performed By: #### C ALCULI #### [facility] [address] [address] [address] Peter Kyle Color (U) Brown Normal [facility] Comment on above: Performed By: #### C ALCULI #### [facility] [address] [address] [address] Peter Kyle Comment Normal [facility] Comment on above: Performed By: #### C ALCULI #### [facility] [address] [address] [address] Peter Kyle Comment Comment Normal [facility] Comment on above: Result Comment: Calc ulus received wet. Wet calculi must be dried before analysis, which delays reporting of results. Leaving calculi wet (such as water, saline, blood, urine) may lead to changes in composition. Performed By: #### C ALCULI #### [facility] [address] [address] [address] Peter Kyle Comment: Comment Normal [facility] Comment on above: Result Comment: Tone richardson questions regarding Calculi Analysis contact [facility] at: [phone]. Performed By: #### C ALCULI #### [facility] [address] [place] [address] Dr. Peter Kyle Composition Comment Normal [facility] Comment on above: Result Comment: Perc entage (Represents the % composition) Performed By: #### C ALCULI #### [facility] [address] [place] [address] Dr. Peter Kyle Cystine Normal [facility] Comment on above: Performed By: #### C ALCULI #### [facility] [address] [address] [address] Peter Kyle Disclaimer: Comment Normal [facility] Comment on above: Result Comment: This test was developed and its performance characteristics determined by [facility]. It has not been cleared or approved by the Food and Drug Administration. Performed By: #### C ALCULI #### [facility] [address] [place] [address] Dr. Peter Kyle Dried Blood Normal [facility] Comment on above: Performed By: #### C ALCULI #### [facility] [address] [place] [address] Dr. Peter Kyle Drug or Metabolite Normal [facility] Comment on above: Performed By: #### C ALCULI #### [facility] [address] [place] [address] Dr. Peter Kyle Hydroxyapatite Normal [facility] Comment on above: Performed By: #### C ALCULI #### [facility] [address] [place] [address] Dr. Peter Kyle Mg NH4 PO4 (Struvite) Normal [facility] Comment on above: Performed By: #### C ALCULI #### [facility] [address] [place] [address] Dr. Peter Kyle MgHPO4 (Newberyite) Normal [facility] Comment on above: Performed By: #### C ALCULI #### [facility] [address] [place] [address] Dr. Peter Klye Other component(s) Normal [facility] Comment on above: Performed By: #### C ALCULI #### [facility] [address] [address] [address] Peter Kyle PDF . Normal [facility] Comment on above: Performed By: #### C ALCULI #### [facility] [address] [address] [address] Peter Kyle Photo Comment [facility] Comment on above: Result Comment: Phot ograph will follow under a separate cover Performed By: #### C ALCULI #### [facility] [address] [address] [address] Peter Kyle Please note: Comment Normal [facility] Comment on above: Result Comment: Calc melita report will follow via computer, mail or spray blender delivery. Performed By: #### C ALCULI #### [facility] [address] [address] [address] Peter Kyle Size 3x5 Normal [facility] Comment on above: Result Comment: Mult iple pieces received. Dimensions of the largest piece reported. Performed By: #### C ALCULI #### [facility] [address] [address] [address] Peter Kyle Sodium Acid Urate Normal [facility] Comment on above: Performed By: #### C ALCULI #### [facility] [address] [address] [address] Peter Kyel Source Comment [facility] Comment on above: Result Comment: Left Kidney Performed By: #### C ALCULI #### [facility] [address] [address] [address] Peter Kyle Triamterene [facility] Comment on above: Performed By: #### C ALCULI #### [facility] [address] [address] [address] Peter Kyle Uric Acid [facility] Comment on above: Performed By: #### C ALCULI #### [facility] [address] [address] [address] Peter Kyle Uric Acid Dihydrate Normal [facility] Comment on above: Performed By: #### C ALCULI #### [facility] [address] [address] [address] Peter Kyle Weight 61 mg Normal [facility] Comment on above: Performed By: #### C ALCULI #### [facility] [address] [address] [address] Peter Kyle Xanthine [facility] Comment on above: Performed By: #### C ALCULI #### [facility] [address] [place] [address] Dr. Peter Kyle CALCULI, URINARYon 3 2,[address] [facility] Comment on above: Performed By: #### C BC #### [facility] [address] [place] [address] Dr. Peter Kyle Ammonium Acid Urate Normal [facility] Comment on above: Performed By: #### C BC #### [facility] [address] [place] [address] Dr. Peter Kyle Bilirubin Ql (U) [facility] Comment on above: Performed By: #### C BC #### [facility] [address] [place] [address] Dr. Peter Kyle Ca Oxalate Dihydrate 20 % [facility] Comment on above: Performed By: #### C BC #### [facility] [address] [place] [address] Dr. Peter Kyle CaHPO4 (Brushite) [facility] Comment on above: Performed By: #### C BC #### [facility] [address] [place] [address] Dr. Peter Kyle Calcium Bilirubinate [facility] Comment on above: Performed By: #### C BC #### [facility] [address] [address] [address] Peter Kyle Calcium Carbonate Normal [facility] Comment on above: Performed By: #### C BC #### [facility] [address] [place] [address] Dr. Peter Kyle Calcium Oxalate Monohydrate 80 % [facility] Comment on above: Performed By: #### C BC #### [facility] [address] [address] [address] Peter Kyle Calcium Palmitate Normal [facility] Comment on above: Performed By: #### C BC #### [facility] [address] [address] [address] Peter Kyle Calcium Phosphate Normal [facility] Comment on above: Performed By: #### C BC #### [facility] [address] [address] [address] Peter Kyle Calcium Stearate [facility] Comment on above: Performed By: #### C BC #### [facility] [address] [address] [address] Peter Kyle Carbonate Apatite [facility] Comment on above: Performed By: #### C BC #### [facility] [address] [address] [address] Peter Kyle Cellular Material [facility] Comment on above: Performed By: #### C BC #### [facility] [address] [address] [address] Peter Kyle Cholesterol [facility] Comment on above: Performed By: #### C BC #### [facility] [address] [address] [address] Peter Kyle Color (U) Brown [facility] Comment on above: Performed By: #### C BC #### [facility] [address] [address] [address] Peter Kyle Comment [facility] Comment on above: Performed By: #### C BC #### [facility] [address] [address] [address] Peter Kyle Comment: Comment Normal [facility] Comment on above: Result Comment: Phys dylan questions regarding Calculi Analysis contact [facility] at: [phone]. Performed By: #### C BC #### [facility] [address] [address] [address] Peter Kyle Composition Comment [facility] Comment on above: Result Comment: Perc entage (Represents the % composition) Performed By: #### C BC #### [facility] [address] [address] [address] Peter Kyle Cystine [facility] Comment on above: Performed By: #### C BC #### [facility] [address] [address] [address] Peter Kyle Disclaimer: Comment [facility] Comment on above: Result Comment: This test was developed and its performance characteristics determined by [facility]. It has not been cleared or approved by the Food and Drug Administration. Performed By: #### C BC #### [facility] [address] [address] [address] Peter Kyle Dried Blood [facility] Comment on above: Performed By: #### C BC #### [facility] [address] [place] [address] Dr. Peter Kyle Drug or Metabolite Normal [facility] Comment on above: Performed By: #### C BC #### [facility] [address] [place] [address] Dr. Peter Kyle Hydroxyapatite [facility] Comment on above: Performed By: #### C BC #### [facility] [address] [address] [address] Peter Kyle Mg NH4 PO4 (Struvite) [facility] Comment on above: Performed By: #### C BC #### [facility] [address] [place] [address] Dr. Peter Kyle MgHPO4 (Newberyite) Normal [facility] Comment on above: Performed By: #### C BC #### [facility] [address] [place] [address] Dr. Peter Kyle Other component(s) Normal [facility] Comment on above: Performed By: #### C BC #### [facility] [address] [place] [address] Dr. Peter Kyle PDF . Normal [facility] Comment on above: Performed By: #### C BC #### [facility] [address] [place] [address] Dr. Peter Kyle Photo Comment [facility] Comment on above: Result Comment: Phot ograph will follow under a separate cover Performed By: #### C BC #### [facility] [address] [address] [address] Peter Kyle Please note: Comment Normal [facility] Comment on above: Result Comment: Calc melita report will follow via computer, mail or spray blender delivery. Performed By: #### C BC #### [facility] [address] [address] [address] Peter Kyle Size 5x[address] [facility] Comment on above: Result Comment: Mult iple pieces received. Dimensions of the largest piece reported. Performed By: #### C BC #### [facility] [address] [address] [address] Peter Kyle Sodium Acid Urate [facility] Comment on above: Performed By: #### C BC #### [facility] [address] [address] [address] Peter Kyle Source Comment [facility] Comment on above: Result Comment: Not provided Performed By: #### C BC #### [facility] [address] [address] [address] Peter Kyle Triamterene [facility] Comment on above: Performed By: #### C BC #### [facility] [address] [address] [address] Peter Kyle Uric Acid [facility] Comment on above: Performed By: #### C BC #### [facility] [address] [address] [address] Peter Kyle Uric Acid Dihydrate Normal [facility] Comment on above: Performed By: #### C BC #### [facility] [address] [address] [address] Peter Kyle Weight [address] [facility] Comment on above: Performed By: #### C BC #### [facility] [address] [address] [address] Peter Kyle Xanthine [facility] Comment on above: Performed By: #### C BC #### [facility] [address] [address] [address] Peter Kyle CBC AUTO DIFFon 12-30-2022 BASO # 0.1 103/ul Normal 0.0-0.1 [facility] Comment on above: Performed By: #### C BC #### [facility] [address] [address] [address] Peter Kyle Basophils/100 WBC (Bld) 0.8 % Normal 0.2-2.0 [facility] Comment on above: Performed By: #### C BC #### [facility] [address] [address] [address] Peter Kyle EO # 0.4 103/ul Normal 0.0-0.7 [facility] Comment on above: Performed By: #### C BC #### [facility] [address] [address] [address] Peter Kyle Eosinophils/100 WBC (Bld) 4.6 % Normal 0.9-7.0 [facility] Comment on above: Performed By: #### C BC #### [facility] [address] [address] [address] Peter Kyle Erythrocyte distribution width (RBC) [Ratio] 16.1 % Critically high 11.0-15.0 [facility] Comment on above: Performed By: #### C BC #### [facility] [address] [address] [address] Peter Kyle Hematocrit (Bld) [Volume fraction] 42.6 % Normal 42.0-54.0 [facility] Comment on above: Performed By: #### C BC #### [facility] [address] [address] [address] Peter Kyle Hemoglobin (Bld) [Mass/Vol] 13.9 g/dL Critically low 14.0-18.0 [facility] Comment on above: Performed By: #### C BC #### [facility] [address] [address] [address] Peter Kyle IG # 0.09 10e3/ul Critically high 0.00-0.03 [facility] Comment on above: Performed By: #### C BC #### [facility] [address] [address] [address] Peter Kyle IG % 1.2 % Critically high 0.0-0.5 [facility] Comment on above: Performed By: #### C BC #### [facility] [address] [address] [address] Peter Kyle LYMPH # 2.2 103/ul Normal 1.2-3.8 [facility] Comment on above: Performed By: #### C BC #### [facility] [address] [place] [address] Dr. Peter Kyle Lymphocytes/100 WBC (Bld) 27.5 % Normal 20.5-60.0 [facility] Comment on above: Performed By: #### C BC #### [facility] [address] [place] [address] Dr. Peter Kyle MANUAL DIFF REQ NO Normal [facility] Comment on above: Performed By: #### C BC #### [facility] [address] [place] [address] Dr. Peter Kyle MCH (RBC) [Entitic mass] 24.2 pg Critically low 25.9-34.0 [facility] Comment on above: Performed By: #### C BC #### [facility] [address] [place] [address] Dr. Peter Kyle MCHC (RBC) [Mass/Vol] 32.6 g/dL Normal 29.9-35.2 [facility] Comment on above: Performed By: #### C BC #### [facility] [address] [place] [address] Dr. Peter Kyle MCV (RBC) [Entitic vol] 74.1 fL Critically low 80.0-94.0 [facility] Comment on above: Performed By: #### C BC #### [facility] [address] [place] [address] Dr. Peter Kyle MONO # 0.8 103/ul Normal 0.3-0.8 [facility] Comment on above: Performed By: #### C BC #### [facility] [address] [place] [address] Dr. Peter Kyle Monocytes/100 WBC (Bld) 10.5 % Normal 1.7-12.0 [facility] Comment on above: Performed By: #### C BC #### [facility] [address] [place] [address] Dr. Peter Kyle NEUT # 4.3 103/ul Normal 1.4-6.5 [facility] Comment on above: Performed By: #### C BC #### [facility] [address] [place] [address] Dr. Peter Kyle Neutrophils/100 WBC (Bld) 55.4 % Normal 43.0-75.0 [facility] Comment on above: Performed By: #### C BC #### [facility] [address] [place] [address] Dr. Peter Kyle Platelet mean volume (Bld) [Entitic vol] 8.6 fL Critically low 9.5-13.5 [facility] Comment on above: Performed By: #### C BC #### [facility] [address] [place] [address] Dr. Peter Kyle PLT 214 103/ul Normal 150-450 [facility] Comment on above: Performed By: #### C BC #### [facility] [address] [place] [address] Dr. Peter Kyle RBC 5.75 106/ul Normal 4.70-6.10 [facility] Comment on above: Performed By: #### C BC #### [facility] [address] [place] [address] Dr. Peter Kyle WBC 7.8 103/ul Normal 4.0-11.0 [facility] Comment on above: Performed By: #### C BC #### [facility] [address] [place] [address] Dr. Peter Kyle PROF CHEM 8 (BAS METB)on Anion gap [Moles/Vol] 14.2 mmol/L Normal [facility] Comment on above: Performed By: #### B MP #### [facility] [address] [place] [address] Dr. Peter Kyle Calcium [Mass/Vol] 8.9 mg/dL Normal 8.5-10.1 [facility] Comment on above: Performed By: #### B MP #### [facility] [address] [address] [address] Peter Kyle Chloride [Moles/Vol] 106 mmol/L Normal 98-107 [facility] Comment on above: Performed By: #### B MP #### [facility] [address] [address] [address] Peter Kyle CO2 [Moles/Vol] 26.9 mmol/L Normal 21.0-32.0 [facility] Comment on above: Performed By: #### B MP #### [facility] [address] [place] [address] Dr. Peter Kyle Creatinine [Mass/Vol] 1.03 mg/dL Normal 0.70-1.30 [facility] Comment on above: Performed By: #### B MP #### [facility] [address] [address] [address] Peter Kyle EGFR-AF CHADIAN >60 Normal >=60 [facility] Comment on above: Performed By: #### B MP #### [facility] [address] [place] [address] Dr. Peter Kyle EGFR-NON AF CHADIAN >60 Normal >=60 [facility] Comment on above: Performed By: #### B MP #### [facility] [address] [address] [address] Peter Kyle Glucose [Mass/Vol] 111 mg/dL Critically high 74-106 [facility] Comment on above: Performed By: #### B MP #### [facility] [address] [address] [address] Peter Kyle Potassium [Moles/Vol] 4.1 mmol/L Normal 3.5-5.1 [facility] Comment on above: Performed By: #### B MP #### [facility] [address] [place] [address] Dr. Peter Kyle Sodium [Moles/Vol] 143 mmol/L Normal 136-145 [facility] Comment on above: Performed By: #### B MP #### [facility] [address] [address] [address] Peter Kyle Urea nitrogen [Mass/Vol] 8.0 mg/dL Normal 7.0-18.0 [facility] Comment on above: Performed By: #### B MP #### [facility] [address] [address] [address] Peter Kyle Urea nitrogen/Creatinine [Mass ratio] 7.8 mg/mg Normal [facility] Comment on above: Performed By: #### B MP #### [facility] [address] [place] [address] Dr. Peter Kyle PROTIMEon 12-30-2022 INR Coag (PPP) [Relative time] 1.01 {INR} Normal [facility] Comment on above: Performed By: #### P TT, PT #### [facility] [address] [place] [address] Dr. Peter Kyle INR GUIDELINES SEE BELOW Normal [facility] Comment on above: Result Comment: ALE RED INR: 2.0 - 3.0 CONDITIONS NOT LISTED BELOW 2.5 - 3.5 FOR PROSTHETIC HEART VALVE REPLACEMENT 2.5 - 3.5 RECURRENT THROMBOSIS Performed By: #### P TT, PT #### [facility] [address] [place] [address] Dr. Peter Kyle PT Coag (PPP) [Time] 10.7 s Normal 9.0-11.6 [facility] Comment on above: Performed By: #### P TT, PT #### [facility] [address] [place] [address] Dr. Peter Kyle PTTon 12-30-2022 aPTT Coag (Bld) [Time] 29.2 s Normal 22.3-36.2 [facility] Comment on above: Performed By: #### P TT, PT #### [facility] [address] [place] [address] Dr. Peter Kyle US KIDNEYSon 12-14-2022 US [...] MYRA SHAFFER Date: 2022-12-14 17:38 Normal [facility] XR KUB 1 VIEWon 12-14-2022 XR KUB [...] MYRA SHAFFER Date: 2022-12-14 18:10 Normal [facility] Ammonium urate crystals dete ction in stone by infrared spectroscopyOrdered By: Patito Sweet on 11-29-2022 Ammonium urate crystals Infrared spectroscopy Ql (Stone) N/A [facility] Calcium bilirubinate measure mentOrdered By: Patito Sweet on 11-29-2022 Calcium bilirubinate (Stone) [Mass fraction] N/A [facility] Calcium carbonate measuremen tOrdered By: Patito Sweet on 11-29-2022 Calcium carbonate (Stone) [Mass fraction] N/A [facility] Calcium hydrogen phosphate d ihydrate/Total in StoneOrdered By: Patito Sweet on 11-29-2022 Calcium hydrogen phosphate dihydrate (Stone) [Mass fraction] N/A [facility] Calcium oxalate dihydrate cr ystals detection in stone by infrared spectroscopyOrdered By: Patito Sweet on 11-29-2022 Calcium oxalate dihydrate crystals Infrared spectroscopy Ql (Stone) N/A [facility] Calcium oxalate monohydrate/ Total in StoneOrdered By: Patito Sweet on 11-29-2022 Calcium oxalate monohydrate (Stone) [Mass fraction] 100 % . [facility] Calcium phosphate measuremen tOrdered By: Patito Sweet on 11-29-2022 Calcium phosphate (Stone) [Mass fraction] N/A [facility] Calculus analysis interpreta tion in stoneOrdered By: Patito Sweet on 11-29-2022 Calculus analysis [Interp] N/A [facility] Calculus analysis [Interp] See comment . [facility] Comment on above: Calculus received we t. Wet calculi must be dried beforeanalysis, which delays reporting of results. Leaving calculiwet (such as water, saline, blood, urine) may lead tochanges in composition. Physician questions regarding Calculi Analysis contactKi[facility] at: [phone]. Calculi report will follow via computer, mail or courierdelivery. Calculus analysis with calcu alok photography interpretation in stoneOrdered By: Patito Sweet on 11-29-2022 Calculus analysis with calculus photography [Interp] See comment . [facility] Comment on above: Photograph will foll ow under a separate cover Cellular material measuremen t in stone by estimated (mass/mass)Ordered By: Patito Sweet on 11-29-2022 Cellular material Est (Stone) [Mass/Mass] N/A [facility] Cholesterol/Total in StoneOr dered By: Patito Sweet on 11-29-2022 Cholesterol (Stone) [Mass fraction] N/A [facility] Composition of stoneOrdered By: Patito Sweet on 11-29-2022 Composition Nom (Stone) See comment . [facility] Comment on above: Percentage (Represen ts the % composition) Creatinine and Glomerular fi ltration rate.predicted panel (S/P/Bld)Ordered By: Myra Lynne on 11-29-2022 Creatinine [Mass/Vol] 1.11 mg/dL 0.64-1.27 [facility] Cystine measurementOrdered B y: Patito Sweet on 11-29-2022 Cystine (Unsp spec) [Moles/Vol] N/A [facility] Determination of color of ca lculusOrdered By: Patito Sweet on 11-29-2022 Color (Stone) Brown . [facility] Estimated glomerular filtrat ion rate (GFR) non- AmericanOrdered By: Myra Lynne on 11-29-2022 GFR/1.73 sq M.predicted among non-blacks MDRD (S/P/Bld) [Vol rate/Area] > 60 mL/Min [facility] Hydroxyapatite [Energy Diffe rence] in 24 hour UrineOrdered By: Patito Sweet on 11-29-2022 Hydroxyapatite (24H U) [Energy diff] N/A [facility] Measurement of proportion of calculus composed of dried blood (mass/mass)Ordered By: Patito Sweet on 11-29-2022 Blood.dried (Stone) [Mass fraction] N/A [facility] Newberyite/Total in StoneOrd ered By: Patito Sweet on 11-29-2022 Newberyite (Stone) [Mass fraction] N/A [facility] No Panel InformationOrdered By: Myra Lynne on 11-29-2022 Estimated GFR () > 60 mL/Min [facility] Comment on above: GFR estimated refere nce range: According to KDOQI guidelines, <60 ml/min/1.73m2 is sufficient to diagnose a patient with chronic kidney disease. Pharmacy Creatinine Clearance (Chem 104.60 [facility] No Panel InformationOrdered By: Patito Sweet on 11-29-2022 Stone 2,8 Dihydroxyadenine N/A [facility] Stone Analysis Disclaimer See comment . [facility] Comment on above: This test was develo ped and its performance characteristicsdetermined by [employer]. It has not been cleared or approvedby the Food and Drug Administration.Performed at: [facility] Stone [address] [place] [address] Dr Mojica, [place], [place] [id number] Director: Francesco Martinez PhD, Phone: [phone] Stone Bilirubinate N/A [facility] Stone Calcium Palmitate N/A [facility] Stone Calcium Stearate N/A [facility] Stone Carbonate Apatite N/A [facility] Stone Drug or Metabolite N/A [facility] Stone Other Constituent N/A [facility] Stone Xanthine N/A [facility] Serum or plasma anion gap de terminationOrdered By: Myra Lynne on 11-29-2022 Anion gap [Moles/Vol] 12.4 mmol/L 6.0-15.0 [facility] Serum or plasma calcium dustin urement (mass/volume)Ordered By: Myra Lynne on 11-29-2022 Calcium [Mass/Vol] 8.9 mg/dL 8.2-10.2 [facility] Serum or plasma chloride justin surement (moles/volume)Ordered By: Myra Lynne on 11-29-2022 Chloride [Moles/Vol] 106 mmol/L 95-114 [facility] Serum or plasma glucose dustin urement (mass/volume)Ordered By: Myra Lynne on 11-29-2022 Glucose [Mass/Vol] 111 mg/dL 70-100 [facility] Comment on above: ADA recommended refe rence rangeRandom Glucose Reference Range is dependent on time and content of last meal. Glucose of more than 200 mg/dL in a nonstressed, ambulatory subject supports the diagnosis of Diabetes Mellitus. Serum or plasma potassium me asurement (moles/volume)Ordered By: Myra Lynne on 11-29-2022 Potassium [Moles/Vol] 3.8 mmol/L 3.5-5.1 [facility] Serum or plasma sodium measu rement (moles/volume)Ordered By: Myra Lynne on 11-29-2022 Sodium [Moles/Vol] 140 mmol/L 136-146 [facility] Serum or plasma total carbon dioxide measurement (moles/volume)Ordered By: Mrya Lynne on 11-29-2022 CO2 [Moles/Vol] 25.4 mmol/L 22.0-30.0 [facility] Serum or plasma urea nitroge n measurement (mass/volume)Ordered By: Myra Lynne on 11-29-2022 Urea nitrogen [Mass/Vol] 8 mg/dL 07-08 [facility] Size [Entitic volume] of Sto neOrdered By: Patito Sweet on 11-29-2022 Size (Stone) [Entitic vol] 3x4 mm . [facility] Comment on above: Multiple pieces rece ived. Dimensions of the largest piecereported. Sodium urate crystals detect ion in stone by infrared spectroscopyOrdered By: Patito Sweet on 11-29-2022 Sodium urate crystals Infrared spectroscopy Ql (Stone) N/A [facility] Specimen source subject [Typ e]Ordered By: Patito Sweet on 11-29-2022 Specimen source subject Nom See comment . [facility] Comment on above: Left Kidney Triamterene measurement in c alculusOrdered By: Patito Sweet on 11-29-2022 Triamterene (Stone) [Mass fraction] N/A [facility] Triple phosphate/Total in St oneOrdered By: Patito Sweet on 11-29-2022 Triple phosphate (Stone) [Mass fraction] N/A [facility] Uric acid dihydrate crystals detection in stone by infrared spectroscopyOrdered By: Patito Sweet on 11-29-2022 Urate dihydrate crystals Infrared spectroscopy Ql (Stone) N/A [facility] Activated partial thrombopla stin time (aPTT) in platelet poor plasma by coagulation aOrdered By: Patito Sweet on 11-02-2022 aPTT Coag (PPP) [Time] 26.1 s 25.1-36.5 [facility] Aerobic cultureOrdered By: Esther Sweet on 11-02-2022 Bacteria identified Aer cx Nom (Unsp spec) No Growth 2 Days [facility] Bacteria identified Aer cx Nom (Unsp spec) No Growth 2 Days [facility] Anaerobic cultureOrdered By: Ptaito Sweet on 11-02-2022 Bacteria identified Anaer cx Nom (Unsp spec) No Anaerobes Isolated 3 Days [facility] Bacteria identified Anaer cx Nom (Unsp spec) No Anaerobes Isolated 3 Days [facility] Gram stain for investigation of transfusion reactionOrdered By: Patito Sweet on 11-02-2022 Microscopic observation Gram stain Nom (Unsp spec) [facility] Microscopic observation Gram stain Nom (Unsp spec) [facility] Laboratory - CoagulationOrde red By: Patito Sweet on 11-02-2022 PT Coag (PPP) [Time] 12.5 s 9.0-12.9 [facility] Platelet poor plasma interna tional normalized ratio (INR) by coagulation assay (relatOrdered By: Patito Sweet on 11-02-2022 INR Coag (PPP) [Relative time] 1.1 {INR} [facility] Comment on above: INR Therapeutic Rang e [...] 11-02-2022 Platelets (Bld) [#/Vol] 268 10*3/uL 150-450 [facility] CBC AUTO DIFFon 10-21-2022 BASO # 0.1 103/ul Normal 0.0-0.1 [facility] Comment on above: Performed By: #### C BC #### [facility] [address] [place] [address] Dr. Peter Kyle Basophils/100 WBC (Bld) 0.6 % Normal 0.2-2.0 [facility] Comment on above: Performed By: #### C BC #### [facility] [address] [place] [address] Dr. Peter Kyle EO # 0.2 103/ul Normal 0.0-0.7 [facility] Comment on above: Performed By: #### C BC #### [facility] [address] [place] [address] Dr. Peter Kyle Eosinophils/100 WBC (Bld) 2.0 % Normal 0.9-7.0 [facility] Comment on above: Performed By: #### C BC #### [facility] [address] [place] [address] Dr. Peter Kyle Erythrocyte distribution width (RBC) [Ratio] 15.9 % Critically high 11.0-15.0 [facility] Comment on above: Performed By: #### C BC #### [facility] [address] [place] [address] Dr. Peter Kyle Hematocrit (Bld) [Volume fraction] 37.0 % Critically low 42.0-54.0 [facility] Comment on above: Performed By: #### C BC #### [facility] [address] [place] [address] Dr. Peter Kyle Hemoglobin (Bld) [Mass/Vol] 11.9 g/dL Critically low 14.0-18.0 [facility] Comment on above: Performed By: #### C BC #### [facility] [address] [place] [address] Dr. Peetr Kyle IG # 0.06 10e3/ul Critically high 0.00-0.03 [facility] Comment on above: Performed By: #### C BC #### [facility] [address] [place] [address] Dr. Peter Kyle IG % 0.6 % Critically high 0.0-0.5 [facility] Comment on above: Performed By: #### C BC #### [facility] [address] [place] [address] Dr. Peter Kyle LYMPH # 2.5 103/ul Normal 1.2-3.8 [facility] Comment on above: Performed By: #### C BC #### [facility] [address] [place] [address] Dr. Peter Kyle Lymphocytes/100 WBC (Bld) 25.7 % Normal 20.5-60.0 [facility] Comment on above: Performed By: #### C BC #### [facility] [address] [place] [address] Dr. Peter Kyle MANUAL DIFF REQ NO Normal [facility] Comment on above: Performed By: #### C BC #### [facility] [facility] [address] [place] [address] Dr. Peter Kyle MCH (RBC) [Entitic mass] 24.3 pg Critically low 25.9-34.0 [facility] Comment on above: Performed By: #### C BC #### [facility] [address] [place] [address] Dr. Peter Kyle MCHC (RBC) [Mass/Vol] 32.2 g/dL Normal 29.9-35.2 [facility] Comment on above: Performed By: #### C BC #### [facility] [address] [place] [address] Dr. Peter Kyle MCV (RBC) [Entitic vol] 75.5 fL Critically low 80.0-94.0 [facility] Comment on above: Performed By: #### C BC #### [facility] [address] [place] [address] Dr. Peter Kyle MONO # 0.9 103/ul Critically high 0.3-0.8 [facility] Comment on above: Performed By: #### C BC #### [facility] [address] [place] [address] Dr. Peter Kyle Monocytes/100 WBC (Bld) 9.2 % Normal 1.7-12.0 [facility] Comment on above: Performed By: #### C BC #### [facility] [address] [place] [address] Dr. Peter Kyle NEUT # 5.9 103/ul Normal 1.4-6.5 [facility] Comment on above: Performed By: #### C BC #### [facility] [address] [place] [address] Dr. Peter Kyle Neutrophils/100 WBC (Bld) 61.9 % Normal 43.0-75.0 [facility] Comment on above: Performed By: #### C BC #### [facility] [address] [place] [address] Dr. Peter Kyle Platelet mean volume (Bld) [Entitic vol] 8.7 fL Critically low 9.5-13.5 [facility] Comment on above: Performed By: #### C BC #### [facility] [address] [address] [address] Peter Kyle PLT 276 103/ul Normal 150-450 [facility] Comment on above: Performed By: #### C BC #### [facility] [address] [address] [address] Peter Kyle RBC 4.90 106/ul Normal 4.70-6.10 [facility] Comment on above: Performed By: #### C BC #### [facility] [id number] Peter Kyle WBC 9.6 103/ul Normal 4.0-11.0 [facility] Comment on above: Performed By: #### C BC #### [facility] [address] [place] [address] Dr. Peter Kyle US KIDNEYSon 10-21-2022 US [...] LIMA CAMPOS Date: 2022-10-21 13:25 Normal The [facility] US KIDNEYSon 10-06-2022 US KIDNEYS EXAMINATION: US KIDKetan EYS HISTORY: Kidney stone ; left renal [...] RIVAS KINCAID Date: 2022-10-06 07:41 Normal The [facility] XR KUB 1 VIEWon 10-06-2022 XR KUB [...] RIVAS KINCAID Date: 2022-10-06 07:28 Normal [facility] Basophils Auto (Bld) [#/Vol] Ordered By: Ulises Barron on 09-30-2022 Basophils (Bld) [#/Vol] 0.1 10*3/uL 0.0-0.2 [facility] Basophils/100 WBC Auto (Bld) Ordered By: Ulises Barron on 09-30-2022 Basophils/100 WBC (Bld) 0.8 % . [facility] Creatinine and Glomerular fi ltration rate.predicted panel (S/P/Bld)Ordered By: Ulises Barron on 09-30-2022 Creatinine [Mass/Vol] 1.08 mg/dL 0.64-1.27 [facility] Eosinophils Auto (Bld) [#/Vo l]Ordered By: Ulises Barron on 09-30-2022 Eosinophils (Bld) [#/Vol] 0.2 10*3/uL 0.0-0.45 [facility] Eosinophils/100 WBC Auto (Bl d)Ordered By: Ulises Barron on 09-30-2022 Eosinophils/100 WBC (Bld) 2.5 % . [facility] Erythrocyte distribution wid th Auto (RBC) [Ratio]Ordered By: Ulises Barron on 09-30-2022 Erythrocyte distribution width (RBC) [Ratio] 17.3 % 12.0-14.8 [facility] Estimated glomerular filtrat ion rate (GFR) non- AmericanOrdered By: Ulises Barron on 09-30-2022 GFR/1.73 sq M.predicted among non-blacks MDRD (S/P/Bld) [Vol rate/Area] > 60 mL/Min [facility] Hematocrit Auto (Bld) [Volum e fraction]Ordered By: Ulises Barron on 09-30-2022 Hematocrit (Bld) [Volume fraction] 34.3 % 38.8-50.0 [facility] Hemoglobin [Mass/volume] in BloodOrdered By: Ulises Barron on 09-30-2022 Hemoglobin (Bld) [Mass/Vol] 10.9 g/dL 13.0-17.0 [facility] Leukocytes [#/volume] correc tremaine for nucleated erythrocytes in Blood by Automated counOrdered By: Ulises Barron on 09-30-2022 WBC corrected for nucl RBC Auto (Bld) [#/Vol] 7.6 10*3/uL 4.1-10.5 [facility] Lymphocytes Auto (Bld) [#/Vo l]Ordered By: Ulises Barron on 09-30-2022 Lymphocytes (Bld) [#/Vol] 1.8 10*3/uL 1.00-4.8 [facility] Lymphocytes/100 WBC Auto (Bl d)Ordered By: Ulises Barron on 09-30-2022 Lymphocytes/100 WBC (Bld) 23.4 % . [facility] MCH Auto (RBC) [Entitic mass ]Ordered By: Ulises Barron on 09-30-2022 MCH (RBC) [Entitic mass] 24.3 pg 27.5-35.2 [facility] MCHC Auto (RBC) [Mass/Vol]Or dered By: Ulises Barron on 09-30-2022 MCHC (RBC) [Mass/Vol] 31.7 g/dL 32.5-35.6 [facility] MCV Auto (RBC) [Entitic vol] Ordered By: Ulises Barron on 09-30-2022 MCV (RBC) [Entitic vol] 76.6 fL 83.5-101 [facility] Monocytes Auto (Bld) [#/Vol] Ordered By: Ulises Anderson on 09-30-2022 Monocytes (Bld) [#/Vol] 0.8 10*3/uL 0.0-0.8 [facility] Monocytes/100 WBC Auto (Bld) Ordered By: Ulises Anderson on 09-30-2022 Monocytes/100 WBC (Bld) 10.4 % . [facility] Neutrophils Auto (Bld) [#/Vo l]Ordered By: Ulises Anderson on 09-30-2022 Neutrophils (Bld) [#/Vol] 4.8 10*3/uL 1.8-7.7 [facility] Neutrophils/100 WBC Auto (Bl d)Ordered By: Ulises Anderson on 09-30-2022 Neutrophils/100 WBC (Bld) 62.9 % . [facility] No Panel InformationOrdered By: Ulises Barron on 09-30-2022 Estimated GFR () > 60 mL/Min [facility] Comment on above: GFR estimated refere nce range: According to KDOQI guidelines, <60 ml/min/1.73m2 is sufficient to diagnose a patient with chronic kidney disease. Pharmacy Creatinine Clearance (Chem 108.07 [facility] Nucleated erythrocytes [Pres ence] in Blood by Automated countOrdered By: Ulises Barron on 09-30-2022 Nucleated RBC Auto Ql (Bld) 0.1 /100{WBC} 0-0.5 [facility] Platelet mean volume Auto (B ld) [Entitic vol]Ordered By: Ulises Anderson on 09-30-2022 Platelet mean volume (Bld) [Entitic vol] 6.6 fL 6.6-10.1 [facility] Platelets Auto (Bld) [#/Vol] Ordered By: Ulises Barron on 09-30-2022 Platelets (Bld) [#/Vol] 225 10*3/uL 150-450 [facility] RBC Auto (Bld) [#/Vol]Ordere d By: Ulises Barron on 09-30-2022 RBC (Bld) [#/Vol] 4.47 10*6/uL 3.90-5.60 [facility] Serum or plasma anion gap de terminationOrdered By: Ulises Barron on 09-30-2022 Anion gap [Moles/Vol] 11.2 mmol/L 6.0-15.0 [facility] Serum or plasma calcium dustin urement (mass/volume)Ordered By: Ulises Barron on 09-30-2022 Calcium [Mass/Vol] 8.7 mg/dL 8.2-10.2 [facility] Serum or plasma chloride justin surement (moles/volume)Ordered By: Ulises Barron on 09-30-2022 Chloride [Moles/Vol] 104 mmol/L 95-114 [facility] Serum or plasma glucose dustin urement (mass/volume)Ordered By: Ulises Barron on 09-30-2022 Glucose [Mass/Vol] 98 mg/dL 70-100 [facility] Comment on above: ADA recommended refe rence rangeRandom Glucose Reference Range is dependent on time and content of last meal. Glucose of more than 200 mg/dL in a nonstressed, ambulatory subject supports the diagnosis of Diabetes Mellitus. Serum or plasma potassium me asurement (moles/volume)Ordered By: Ulises Barron on 09-30-2022 Potassium [Moles/Vol] 3.9 mmol/L 3.5-5.1 [facility] Serum or plasma sodium measu rement (moles/volume)Ordered By: Ulises Barron on 09-30-2022 Sodium [Moles/Vol] 137 mmol/L 136-146 [facility] Serum or plasma total carbon dioxide measurement (moles/volume)Ordered By: Ulises Barron on 09-30-2022 CO2 [Moles/Vol] 25.7 mmol/L 22.0-30.0 [facility] Serum or plasma urea nitroge n measurement (mass/volume)Ordered By: Ulises Barron on 09-30-2022 Urea nitrogen [Mass/Vol] 9 mg/dL 9- [facility] WBC Auto (Bld) [#/Vol]Ordere d By: Ulises Barron on 09-30-2022 WBC (Bld) [#/Vol] 7.6 10*3/uL 4.1-10.5 [facility] BNPon 09-29-2022 Natriuretic peptide B (Bld) [Mass/Vol] 89.0 pg/mL Normal <=900.0 [facility] Comment on above: Performed By: #### C BC #### [facility] [address] [place] [address] Dr. Peter Kyle CARDIAC ITALO ADMITon 022 CK [Catalytic activity/Vol] 94 U/L Normal 39-308 [facility] Comment on above: Performed By: #### C BC #### [facility] [address] [place] [address] Dr. Peter Kyle CK.MB [Mass/Vol] 1.55 ng/mL Normal <=3.60 [facility] Comment on above: Performed By: #### C BC #### [facility] [address] [place] [address] Dr. Peter Kyle HSTROP 12.0 pg/mL Normal 4.0-76.1 [facility] Comment on above: Result Comment: CUT- OFF POINTS HAVE BEEN ESTABLISHED BASED ON THE FOURTH UNIVERSAL DEFINITIONS OF MYOCARDIAL INFARCTION. THE UPPER REFERENCE LIMIT (URL) OF TROPONIN, DEFINED THE 99TH PERCENTILE OF cTnI DISTRIBUTION IN A REFERENCE POPULATION, HAS BEEN CONFIRMED THE DECISION THRESHOLD FOR SD DIAGNOSIS. Performed By: #### C BC #### [facility] [address] [place] [address] Dr. Peter Kyle CELIO 64 ng/mL Normal 16-96 [facility] Comment on above: Performed By: #### C BC #### [facility] [address] [place] [address] Dr. Peter Kyle CBC AUTO DIFFon 09-29-2022 BASO # 0.1 103/ul Normal 0.0-0.1 [facility] Comment on above: Performed By: #### C BC #### [facility] [address] [address] [address] Peter Kyle Basophils/100 WBC (Bld) 0.7 % Normal 0.2-2.0 [facility] Comment on above: Performed By: #### C BC #### [facility] [address] [place] [address] Dr. Peter Kyle EO # 0.2 103/ul Normal 0.0-0.7 [facility] Comment on above: Performed By: #### C BC #### [facility] [address] [place] [address] Dr. Peter Kyle Eosinophils/100 WBC (Bld) 2.8 % Normal 0.9-7.0 [facility] Comment on above: Performed By: #### C BC #### [facility] [address] [place] [address] Dr. Peter Kyle Erythrocyte distribution width (RBC) [Ratio] 16.3 % Critically high 11.0-15.0 [facility] Comment on above: Performed By: #### C BC #### [facility] [address] [place] [address] Dr. Peter Kyle Hematocrit (Bld) [Volume fraction] 34.3 % Critically low 42.0-54.0 [facility] Comment on above: Performed By: #### C BC #### [facility] [address] [place] [address] Dr. Peter Kyle Hemoglobin (Bld) [Mass/Vol] 10.7 g/dL Critically low 14.0-18.0 [facility] Comment on above: Performed By: #### C BC #### [facility] [address] [place] [address] Dr. Peter Kyle IG # 0.08 10e3/ul Critically high 0.00-0.03 [facility] Comment on above: Performed By: #### C BC #### [facility] [address] [place] [address] Dr. Peter Kyle IG % 1.1 % Critically high 0.0-0.5 [facility] Comment on above: Performed By: #### C BC #### [facility] [address] [address] [address] Peter Kyle LYMPH # 1.9 103/ul Normal 1.2-3.8 [facility] Comment on above: Performed By: #### C BC #### [facility] [address] [place] [address] Dr. Peter Kyle Lymphocytes/100 WBC (Bld) 24.8 % Normal 20.5-60.0 [facility] Comment on above: Performed By: #### C BC #### [facility] [address] [place] [address] Dr. Peter Kyle MANUAL DIFF REQ NO Normal [facility] Comment on above: Performed By: #### C BC #### [facility] [address] [place] [address] Dr. Peter Kyle MCH (RBC) [Entitic mass] 24.5 pg Critically low 25.9-34.0 [facility] Comment on above: Performed By: #### C BC #### [facility] [address] [place] [address] Dr. Peter Kyle MCHC (RBC) [Mass/Vol] 31.2 g/dL Normal 29.9-35.2 [facility] Comment on above: Performed By: #### C BC #### [facility] [address] [place] [address] Dr. Peter Kyle MCV (RBC) [Entitic vol] 78.5 fL Critically low 80.0-94.0 [facility] Comment on above: Performed By: #### C BC #### [facility] [address] [place] [address] Dr. Peter Kyle MONO # 0.8 103/ul Normal 0.3-0.8 [facility] Comment on above: Performed By: #### C BC #### [facility] [address] [place] [address] Dr. Peter Kyle Monocytes/100 WBC (Bld) 10.0 % Normal 1.7-12.0 [facility] Comment on above: Performed By: #### C BC #### [facility] [address] [place] [address] Dr. Peter Kyle NEUT # 4.6 103/ul Normal 1.4-6.5 [facility] Comment on above: Performed By: #### C BC #### [facility] [address] [place] [address] Dr. Peter Kyle Neutrophils/100 WBC (Bld) 60.6 % Normal 43.0-75.0 [facility] Comment on above: Performed By: #### C BC #### [facility] [address] [place] [address] Dr. Peter Kyle Platelet mean volume (Bld) [Entitic vol] 8.3 fL Critically low 9.5-13.5 [facility] Comment on above: Performed By: #### C BC #### [facility] [address] [place] [address] Dr. Peter Kyle PLT 203 103/ul Normal 150-450 [facility] Comment on above: Performed By: #### C BC #### [facility] [address] [place] [address] Dr. Peter Kyle RBC 4.37 106/ul Critically low 4.70-6.10 [facility] Comment on above: Performed By: #### C BC #### [facility] [address] [place] [address] Dr. Peter Kyle WBC 7.6 103/ul Normal 4.0-11.0 [facility] Comment on above: Performed By: #### C BC #### [facility] [address] [place] [address] ABD/PELVIS WO CONon [...] RIVAS KINCAID Date: 2022-09-29 07:04 Normal [facility] FREE THYROXINE INDEX T7on FTI 2.15 Normal 1.30-4.50 [facility] Comment on above: Performed By: #### C BC #### [facility] [address] [place] [address] Dr. Peter Kyle T3U 33.0 % Normal 33.0-40.0 [facility] Comment on above: Performed By: #### C BC #### [facility] [address] [address] [address] Peter Kyle T4 [Mass/Vol] 6.50 ug/dL Normal 4.50-12.10 [facility] Comment on above: Performed By: #### C BC #### [facility] [address] [address] [address] Peter Kyle PROF 14(COMP METB)on 022 Albumin [Mass/Vol] 3.4 g/dL Normal 3.4-5.0 [facility] Comment on above: Performed By: #### C BC #### [facility] [address] [place] [address] Dr. Peter Kyle Albumin/Globulin [Mass ratio] 0.9 {ratio} Normal [facility] Comment on above: Performed By: #### C BC #### [facility] [address] [place] [address] Dr. Peter Kyle ALP [Catalytic activity/Vol] 64 U/L Normal 46-116 [facility] Comment on above: Performed By: #### C BC #### [facility] [address] [place] [address] Dr. Peter Kyle ALT [Catalytic activity/Vol] 14 U/L Critically low 16-63 [facility] Comment on above: Performed By: #### C BC #### [facility] [address] [place] [address] Dr. Peter Kyle Anion gap [Moles/Vol] 9.6 mmol/L Normal [facility] Comment on above: Performed By: #### C BC #### [facility] [address] [place] [address] Dr. Peter Kyle AST [Catalytic activity/Vol] 15 U/L Normal 15-37 [facility] Comment on above: Performed By: #### C BC #### [facility] [address] [place] [address] Dr. Peter Kyle Bilirubin [Mass/Vol] 0.5 mg/dL Normal 0.2-1.0 [facility] Comment on above: Performed By: #### C BC #### [facility] [address] [address] [address] Peter Kyle Calcium [Mass/Vol] 8.5 mg/dL Normal 8.5-10.1 [facility] Comment on above: Performed By: #### C BC #### [facility] [address] [address] [address] Peter Kyle Chloride [Moles/Vol] 105 mmol/L Normal 98-107 [facility] Comment on above: Performed By: #### C BC #### [facility] [address] [address] [address] Peter Kyle CO2 [Moles/Vol] 29.4 mmol/L Normal 21.0-32.0 [facility] Comment on above: Performed By: #### C BC #### [facility] [address] [place] [address] Dr. Peter Kyle Creatinine [Mass/Vol] 1.17 mg/dL Normal 0.70-1.30 [facility] Comment on above: Performed By: #### C BC #### [facility] [address] [place] [address] Dr. Peter Kyle EGFR-AF CHADIAN >60 Normal >=60 [facility] Comment on above: Performed By: #### C BC #### [facility] [address] [place] [address] Dr. Peter Kyle EGFR-NON AF CHADIAN >60 Normal >=60 [facility] Comment on above: Performed By: #### C BC #### [facility] [address] [place] [address] Dr. Peter Kyle Globulin (S) [Mass/Vol] 4.0 g/dL Normal [facility] Comment on above: Performed By: #### C BC #### [facility] [address] [place] [address] Dr. Peter Kyle Glucose [Mass/Vol] 89 mg/dL Normal 74-106 [facility] Comment on above: Performed By: #### C BC #### [facility] [address] [place] [address] Dr. Peter Kyle Potassium [Moles/Vol] 4.0 mmol/L Normal 3.5-5.1 [facility] Comment on above: Performed By: #### C BC #### [facility] [address] [place] [address] Dr. Peter Kyle Protein [Mass/Vol] 7.4 g/dL Normal 6.4-8.2 [facility] Comment on above: Performed By: #### C BC #### [facility] [address] [place] [address] Dr. Peter Kyle Sodium [Moles/Vol] 140 mmol/L Normal 136-145 [facility] Comment on above: Performed By: #### C BC #### [facility] [address] [place] [address] Dr. Peter Kyle Urea nitrogen [Mass/Vol] 12.0 mg/dL Normal 7.0-18.0 [facility] Comment on above: Performed By: #### C BC #### [facility] [address] [place] [address] Dr. Peter Kyle Urea nitrogen/Creatinine [Mass ratio] 10.3 mg/mg Normal [facility] Comment on above: Performed By: #### C BC #### [facility] [address] [place] [address] Dr. Peter Kyle TSHon 09-29-2022 TSH 1.129 uIU/mL Normal 0.358-3.74 0 [facility] Comment on above: Performed By: #### C BC #### [facility] [address] [place] [address] Dr. Peter Kyle HEMOGLOBIN AND HEMATOCRITon 09-28-2022 Hematocrit (Bld) [Volume fraction] 34.1 % Critically low 42.0-54.0 [facility] Comment on above: Performed By: #### H GBHCT #### [facility] [address] [place] [address] Dr. Peter Kyle Hemoglobin (Bld) [Mass/Vol] 10.8 g/dL Critically low 14.0-18.0 [facility] Comment on above: Performed By: #### H GBHCT #### [facility] [address] [place] [address] Dr. Peter Kyle INSULINon 09-21-2022 Insulin 33.7 uIU/mL Critically high 2.6-24.9 [facility] Comment on above: Performed By: #### C BC #### [facility] [address] [place] [address] Dr. Peter Kyle CBC AUTO DIFFon 09-20-2022 BASO # 0.1 103/ul Normal 0.0-0.1 [facility] Comment on above: Performed By: #### P TT, PT #### [facility] [address] [place] [address] Dr. Peter Kyle Basophils/100 WBC (Bld) 0.5 % Normal 0.2-2.0 [facility] Comment on above: Performed By: #### P TT, PT #### [facility] [address] [place] [address] Dr. Peter Kyle EO # 0.3 103/ul Normal 0.0-0.7 [facility] Comment on above: Performed By: #### P TT, PT #### [facility] [address] [place] [address] Dr. Peter Kyle Eosinophils/100 WBC (Bld) 3.3 % Normal 0.9-7.0 [facility] Comment on above: Performed By: #### P TT, PT #### [facility] [address] [place] [address] Dr. Peter Kyle Erythrocyte distribution width (RBC) [Ratio] 14.7 % Normal 11.0-15.0 [facility] Comment on above: Performed By: #### P TT, PT #### [facility] [address] [place] [address] Dr. Peter Kyle Hematocrit (Bld) [Volume fraction] 33.4 % Critically low 42.0-54.0 [facility] Comment on above: Performed By: #### P TT, PT #### [facility] [address] [place] [address] Dr. Peter Kyle Hemoglobin (Bld) [Mass/Vol] 10.6 g/dL Critically low 14.0-18.0 [facility] Comment on above: Performed By: #### P TT, PT #### [facility] [address] [place] [address] Dr. Peter Kyle IG # 0.14 10e3/ul Critically high 0.00-0.03 [facility] Comment on above: Performed By: #### P TT, PT #### [facility] [address] [place] [address] Dr. Peter Kyle IG % 1.5 % Critically high 0.0-0.5 [facility] Comment on above: Performed By: #### P TT, PT #### [facility] [address] [place] [address] Dr. Peter Kyle LYMPH # 2.0 103/ul Normal 1.2-3.8 [facility] Comment on above: Performed By: #### P TT, PT #### [facility] [address] [place] [address] Dr. Peter Kyle Lymphocytes/100 WBC (Bld) 21.8 % Normal 20.5-60.0 [facility] Comment on above: Performed By: #### P TT, PT #### [facility] [address] [place] [address] Dr. Peter Kyle MANUAL DIFF REQ NO Normal [facility] Comment on above: Performed By: #### P TT, PT #### [facility] [address] [place] [address] Dr. Peter Kyle MCH (RBC) [Entitic mass] 24.8 pg Critically low 25.9-34.0 [facility] Comment on above: Performed By: #### P TT, PT #### [facility] [address] [place] [address] Dr. Peter Kyle MCHC (RBC) [Mass/Vol] 31.7 g/dL Normal 29.9-35.2 [facility] Comment on above: Performed By: #### P TT, PT #### [facility] [address] [place] [address] Dr. Peter Kyle MCV (RBC) [Entitic vol] 78.0 fL Critically low 80.0-94.0 [facility] Comment on above: Performed By: #### P TT, PT #### [facility] [address] [place] [address] Dr. Peter Kyle MONO # 0.8 103/ul Normal 0.3-0.8 [facility] Comment on above: Performed By: #### P TT, PT #### [facility] [address] [place] [address] Dr. Peter Kyle Monocytes/100 WBC (Bld) 8.6 % Normal 1.7-12.0 [facility] Comment on above: Performed By: #### P TT, PT #### [facility] [address] [place] [address] Dr. Peter Kyle NEUT # 5.9 103/ul Normal 1.4-6.5 [facility] Comment on above: Performed By: #### P TT, PT #### [facility] [address] [place] [address] Dr. Peter Kyle Neutrophils/100 WBC (Bld) 64.3 % Normal 43.0-75.0 [facility] Comment on above: Performed By: #### P TT, PT #### [facility] [address] [place] [address] Dr. Peter Kyle Platelet mean volume (Bld) [Entitic vol] 8.1 fL Critically low 9.5-13.5 [facility] Comment on above: Performed By: #### P TT, PT #### [facility] [address] [place] [address] Dr. Peter Kyle PLT 309 103/ul Normal 150-450 [facility] Comment on above: Performed By: #### P TT, PT #### [facility] [address] [place] [address] Dr. Peter Kyle RBC 4.28 106/ul Critically low 4.70-6.10 [facility] Comment on above: Performed By: #### P TT, PT #### [facility] [address] [place] [address] Dr. Peter Kyle WBC 9.2 103/ul Normal 4.0-11.0 [facility] Comment on above: Performed By: #### P TT, PT #### [facility] [address] [place] [address] Dr. Peter Kyle FREE THYROXINE INDEX T7on FTI 1.77 Normal 1.30-4.50 [facility] Comment on above: Performed By: #### T SH, T7, CMP #### [facility] [address] [place] [address] Dr. Peter Kyle T3U 34.0 % Normal 33.0-40.0 [facility] Comment on above: Performed By: #### T SH, T7, CMP #### [facility] [address] [place] [address] Dr. Peter Kyle T4 [Mass/Vol] 5.20 ug/dL Normal 4.50-12.10 [facility] Comment on above: Performed By: #### T SH, T7, CMP #### [facility] [address] [place] [address] Dr. Peter Kyle GLYCOHEMOGLOBIN A1Con 2021 ADA RECOMMENDATION SEE BELOW Normal [facility] Comment on above: Result Comment: ADA RECOMMENDED LIMIT 4.0 - 6.0 ADA THERAPEUTIC TARGET < 7.0 ACTION SUGGESTED > 7.0 Performed By: #### C BC #### [facility] [address] [place] [address] Dr. Peter Kyle Glucose [Mass/Vol] 126 mg/dL Normal [facility] Comment on above: Performed By: #### C BC #### [facility] [address] [place] [address] Dr. Peter Kyle HbA1c (Bld) [Mass fraction] 6.0 % Normal 4.5-6.2 [facility] Comment on above: Performed By: #### C BC #### [facility] [address] [place] [address] Dr. Peter Kyle PROF 14(COMP METB)on 022 Albumin [Mass/Vol] 3.3 g/dL Critically low 3.4-5.0 [facility] Comment on above: Performed By: #### T SH, T7, CMP #### [facility] [address] [address] [address] Peter Kyle Albumin/Globulin [Mass ratio] 0.8 {ratio} Normal [facility] Comment on above: Performed By: #### T SH, T7, CMP #### [facility] [address] [address] [address] Peter Kyle ALP [Catalytic activity/Vol] 71 U/L Normal 46-116 [facility] Comment on above: Performed By: #### T SH, T7, CMP #### [facility] [address] [address] [address] Peter Kyle ALT [Catalytic activity/Vol] 12 U/L Critically low 16-63 [facility] Comment on above: Performed By: #### T SH, T7, CMP #### [facility] [address] [address] [address] Peter Kyle Anion gap [Moles/Vol] 11.4 mmol/L Normal [facility] Comment on above: Performed By: #### T SH, T7, CMP #### [facility] [address] [address] [address] Peter Kyle AST [Catalytic activity/Vol] 12 U/L Critically low 15-37 [facility] Comment on above: Performed By: #### T SH, T7, CMP #### [facility] [address] [address] [address] Peter Kyle Bilirubin [Mass/Vol] 0.4 mg/dL Normal 0.2-1.0 [facility] Comment on above: Performed By: #### T SH, T7, CMP #### [facility] [address] [address] [address] Peter Kyle Calcium [Mass/Vol] 8.6 mg/dL Normal 8.5-10.1 [facility] Comment on above: Performed By: #### T SH, T7, CMP #### [facility] [address] [address] [address] Peter Kyle Chloride [Moles/Vol] 106 mmol/L Normal 98-107 [facility] Comment on above: Performed By: #### T SH, T7, CMP #### [facility] [address] [place] [address] Dr. Peter Kyle CO2 [Moles/Vol] 25.9 mmol/L Normal 21.0-32.0 [facility] Comment on above: Performed By: #### T SH, T7, CMP #### [facility] [address] [place] [address] Dr. Peter Kyle Creatinine [Mass/Vol] 1.22 mg/dL Normal 0.70-1.30 [facility] Comment on above: Performed By: #### T SH, T7, CMP #### [facility] [address] [place] [address] Dr. Peter Kyle EGFR-AF CHADIAN >60 Normal >=60 [facility] Comment on above: Performed By: #### T EZEKIEL, T7, CMP #### [facility] [address] [place] [address] Dr. Peter Kyle EGFR-NON AF CHADIAN >60 Normal >=60 [facility] Comment on above: Performed By: #### T SH, T7, CMP #### [facility] [address] [place] [address] Dr. Peter Kyle Globulin (S) [Mass/Vol] 4.2 g/dL Normal [facility] Comment on above: Performed By: #### T SH, T7, CMP #### [facility] [address] [place] [address] Dr. Peter Kyle Glucose [Mass/Vol] 111 mg/dL Critically high 74-106 [facility] Comment on above: Performed By: #### T SH, T7, CMP #### [facility] [address] [place] [address] Dr. Peter Kyle Potassium [Moles/Vol] 4.3 mmol/L Normal 3.5-5.1 [facility] Comment on above: Performed By: #### T SH, T7, CMP #### [facility] [address] [place] [address] Dr. Peter Kyle Protein [Mass/Vol] 7.5 g/dL Normal 6.4-8.2 [facility] Comment on above: Performed By: #### T EZEKIEL, T7, CMP #### [facility] [address] [address] [address] Peter Kyle Sodium [Moles/Vol] 139 mmol/L Normal 136-145 [facility] Comment on above: Performed By: #### T EZEKIEL T7, CMP #### [facility] [address] [address] [address] Peter Kyle Urea nitrogen [Mass/Vol] 8.0 mg/dL Normal 7.0-18.0 [facility] Comment on above: Performed By: #### T EZEKIEL T7, CMP #### [facility] [address] [place] [address] Dr. Peter Kyle Urea nitrogen/Creatinine [Mass ratio] 6.6 mg/mg Normal [facility] Comment on above: Performed By: #### T EZEKIEL T7, CMP #### [facility] [address] [place] [address] Dr. Peter Kyle TSHon 09-20-2022 TSH 0.857 uIU/mL Normal 0.358-3.74 0 [facility] Comment on above: Performed By: #### Devika FALCON, T7, CMP #### [facility] [address] [place] [address] Dr. Peter Kyle XR KUB 1 VIEWon [...] RIVAS KINCAID Date: 2022-09-20 12:24 Normal [facility] COVID-19 Positive/NegativeOr dered By: Patito Sweet on 08-19-2022 SARS-CoV-2 (COVID-19) N gene VIMAL+probe Ql (Resp) Negative Negative [facility] Comment on above: Testing for SARS-CoV -2 by RT-PCRThis test was developed and its performance characteristics determined by [employer] ([employer]) and validated at the [facility]. This test has not been FDA cleared [...] aPTT Coag (PPP) [Time] 30.4 s 25.1-36.5 [facility] Basophils Auto (Bld) [#/Vol] Ordered By: Patito Sweet on 08-12-2022 Basophils (Bld) [#/Vol] 0.1 10*3/uL 0.0-0.2 [facility] Basophils/100 WBC Auto (Bld) Ordered By: Patito Sweet on 08-12-2022 Basophils/100 WBC (Bld) 0.6 % . [facility] Creatinine and Glomerular fi ltration rate.predicted panel (S/P/Bld)Ordered By: Patito Sweet on 08-12-2022 Creatinine [Mass/Vol] 1.08 mg/dL 0.64-1.27 [facility] Eosinophils Auto (Bld) [#/Vo l]Ordered By: Patito Sweet on 08-12-2022 Eosinophils (Bld) [#/Vol] 0.2 10*3/uL 0.0-0.45 [facility] Eosinophils/100 WBC Auto (Bl d)Ordered By: Patito Sweet on 08-12-2022 Eosinophils/100 WBC (Bld) 1.9 % . [facility] Erythrocyte distribution wid th Auto (RBC) [Ratio]Ordered By: Patito Sweet on 08-12-2022 Erythrocyte distribution width (RBC) [Ratio] 15.0 % 12.0-14.8 [facility] Estimated glomerular filtrat ion rate (GFR) non- AmericanOrdered By: Patito Sweet on 08-12-2022 GFR/1.73 sq M.predicted among non-blacks MDRD (S/P/Bld) [Vol rate/Area] > 60 mL/Min [facility] Hematocrit Auto (Bld) [Volum e fraction]Ordered By: Patito Sweet on 08-12-2022 Hematocrit (Bld) [Volume fraction] 42.6 % 38.8-50.0 [facility] Hemoglobin [Mass/volume] in BloodOrdered By: Patito Sweet on 08-12-2022 Hemoglobin (Bld) [Mass/Vol] 13.9 g/dL 13.0-17.0 [facility] Laboratory - CoagulationOrde red By: Patito Sweet on 08-12-2022 PT Coag (PPP) [Time] 14.0 s 9.0-12.9 [facility] - Hematology and Cell countsOrdered By: Patito Sweet on 08-12-2022 Nucleated RBC/100 WBC (Bld) [Ratio] 0.1 % 0-0.5 [facility] Leukocytes [#/volume] in Blo od by Automated countOrdered By: Patito Sweet on 08-12-2022 WBC (Bld) [#/Vol] 9.0 10*3/uL 4.5-11.0 [facility] Lymphocytes Auto (Bld) [#/Vo l]Ordered By: Patito Sweet on 08-12-2022 Lymphocytes (Bld) [#/Vol] 2.0 10*3/uL 1.00-4.8 [facility] Lymphocytes/100 WBC Auto (Bl d)Ordered By: Patito Sweet on 08-12-2022 Lymphocytes/100 WBC (Bld) 22.1 % . [facility] MCH Auto (RBC) [Entitic mass ]Ordered By: Patito Sweet on 08-12-2022 MCH (RBC) [Entitic mass] 25.8 pg 27.5-35.2 [facility] MCHC Auto (RBC) [Mass/Vol]Or dered By: Patito Sweet on 08-12-2022 MCHC (RBC) [Mass/Vol] 32.6 g/dL 32.5-35.6 [facility] MCV Auto (RBC) [Entitic vol] Ordered By: Patito Sweet on 08-12-2022 MCV (RBC) [Entitic vol] 79.1 fL 83.5-101 [facility] Monocytes Auto (Bld) [#/Vol] Ordered By: Patito Sweet on 08-12-2022 Monocytes (Bld) [#/Vol] 0.8 10*3/uL 0.0-0.8 [facility] Monocytes/100 WBC Auto (Bld) Ordered By: Patito Sweet on 08-12-2022 Monocytes/100 WBC (Bld) 9.2 % . [facility] Neutrophils Auto (Bld) [#/Vo l]Ordered By: Patito Sweet on 08-12-2022 Neutrophils (Bld) [#/Vol] 6.0 10*3/uL 1.8-7.7 [facility] Neutrophils/100 WBC Auto (Bl d)Ordered By: Patito Sweet on 08-12-2022 Neutrophils/100 WBC (Bld) 66.2 % . [facility] No Panel InformationOrdered By: Patito Sweet on 08-12-2022 Estimated GFR () > 60 mL/Min [facility] Comment on above: GFR estimated refere nce range: According to KDOQI guidelines, <60 ml/min/1.73m2 is sufficient to diagnose a patient with chronic kidney disease. Pharmacy Creatinine Clearance (Chem N/A [facility] Platelet mean volume Auto (B ld) [Entitic vol]Ordered By: Patito Sweet on 08-12-2022 Platelet mean volume (Bld) [Entitic vol] 7.5 fL 6.6-10.1 [facility] Platelet poor plasma interna tional normalized ratio (INR) by coagulation assay (relatOrdered By: Patito Sweet on 08-12-2022 INR Coag (PPP) [Relative time] 1.2 {INR} [facility] Comment on above: INR Therapeutic Rang e [...] 08-12-2022 Platelets (Bld) [#/Vol] 213 10*3/uL 150-450 [facility] RBC Auto (Bld) [#/Vol]Ordere d By: Patito Sweet on 08-12-2022 RBC (Bld) [#/Vol] 5.38 10*6/uL 3.90-5.60 [facility] Serum or plasma anion gap de terminationOrdered By: Patito Sweet on 08-12-2022 Anion gap [Moles/Vol] 15.0 mmol/L 6.0-15.0 [facility] Serum or plasma calcium dustin urement (mass/volume)Ordered By: Patito wSeet on 08-12-2022 Calcium [Mass/Vol] 9.0 mg/dL 8.2-10.2 [facility] Serum or plasma chloride justin surement (moles/volume)Ordered By: Patito Sweet on 08-12-2022 Chloride [Moles/Vol] 107 mmol/L 95-114 [facility] Serum or plasma glucose dustin urement (mass/volume)Ordered By: Patito Sweet on 08-12-2022 Glucose [Mass/Vol] 128 mg/dL 70-100 [facility] Comment on above: ADA recommended refe rence rangeRandom Glucose Reference Range is dependent on time and content of last meal. Glucose of more than 200 mg/dL in a nonstressed, ambulatory subject supports the diagnosis of Diabetes Mellitus. Serum or plasma potassium me asurement (moles/volume)Ordered By: Patito Sweet on 08-12-2022 Potassium [Moles/Vol] 4.2 mmol/L 3.5-5.1 [facility] Serum or plasma sodium measu rement (moles/volume)Ordered By: Patito Sweet on 08-12-2022 Sodium [Moles/Vol] 142 mmol/L 136-146 [facility] Serum or plasma total carbon dioxide measurement (moles/volume)Ordered By: Patito Sweet on 08-12-2022 CO2 [Moles/Vol] 24.2 mmol/L 22.0-30.0 [facility] Serum or plasma urea nitroge n measurement (mass/volume)Ordered By: Patito Sweet on 08-12-2022 Urea nitrogen [Mass/Vol] 12 mg/dL 07-08 [facility] US KIDNEYS BLADDERon 022 US KIDNEYS BLADDER [...] MYRA PAREDES Date: 2022-06-08 08:34 Normal [facility] XR hip LT min 2V(w/wo pelvis )*on 02-16-2022 XR hip LT min 2V(w/wo pelvis)* [facility] [employer] Other XR hip LT min 2V(w/wo pelvis)* [facility] [employer] Other XR hip LT min 2V(w/wo pelvis)* [address] [facility] [employer] Other XR hip LT min 2V(w/wo pelvis)* [place] [address] [employer] Other XR hip LT min 2V(w/wo pelvis)* XRay Report [employer] Other XR hip LT min 2V(w/wo pelvis)* Signed [facility] Other XR hip LT min 2V(w/wo pelvis)* Patient: Lima Loyd MR#: [id number] [facility] Other XR hip LT min 2V(w/wo pelvis)* [id number] [facility] Other XR hip LT min 2V(w/wo pelvis)* : 1965 Acct:[id number] [employer] Other XR hip LT min 2V(w/wo pelvis)* Age/Sex: 56 / M ADM Date: 02/16/22 [employer] Other XR hip LT min 2V(w/wo pelvis)* Loc: [facility] Room: Type: [facility] [employer] Other XR hip LT min 2V(w/wo pelvis)* Attending Dr: Gaurav Higuera DO [employer] Other XR hip LT min 2V(w/wo pelvis)* Ordering Provider: Gaurav Higuera DO [employer] Other XR hip LT min 2V(w/wo pelvis)* Date of Service: 02/16/22 [facility] Other XR hip LT min 2V(w/wo pelvis)* XR/XR hip LT min 2V(w/wo pelvis)*: Acute pain of left hip [employer] Other XR hip LT min 2V(w/wo pelvis)* Copies to: Gaurav Higuera DO [employer] Other XR hip LT min 2V(w/wo pelvis)* 2 views LEFT hip single view pelvisplain film [employer] Other XR hip LT min 2V(w/wo pelvis)* COMPARISON:02/02/22 [facility] Other XR hip LT min 2V(w/wo pelvis)* HISTORY:LEFT hip pain for months [employer] Other XR hip LT min 2V(w/wo pelvis)* No fracture, dislocation or focal soft tissue abnormality seen.Hip joint space is adequate. The [employer] Other XR hip LT min 2V(w/wo pelvis)* articular surfaces of the hips preserved. [employer] Other XR hip LT min 2V(w/wo pelvis)* XR/XR hip LT min 2V(w/wo pelvis)* [employer] Other XR hip LT min 2V(w/wo pelvis)* IMPRESSION:Unremarkable LEFT hip [employer] Other XR hip LT min 2V(w/wo pelvis)* Impression dictated by: Garrett Astudillo M.D.02/16/2022 2:21 PM [facility] Other XR hip LT min 2V(w/wo pelvis)* Dictation Location: [facility]IO-PC-11 [employer] Other XR hip LT min 2V(w/wo pelvis)* Transcribed By: PWS 02/16/22 [facility] [employer] Other XR hip LT min 2V(w/wo pelvis)* Dictated By: Garrett Astudillo DO 02/16/22 [facility] [employer] Other XR hip LT min 2V(w/wo pelvis)* Signed By: [facility] Other XR hip LT min 2V(w/wo pelvis)* 02/16/22 [facility] [employer] Other XR hip RT min 2V(w/wo pelvis )*on 02-02-2022 XR hip RT min 2V(w/wo pelvis)* [facility] [employer] Other XR hip RT min 2V(w/wo pelvis)* [facility] [place] [employer] Other XR hip RT min 2V(w/wo pelvis)* [address] [facility] [employer] Other XR hip RT min 2V(w/wo pelvis)* [place] [address] [employer] Other XR hip RT min 2V(w/wo pelvis)* XRay Report [employer] Other XR hip RT min 2V(w/wo pelvis)* Signed [facility] Other XR hip RT min 2V(w/wo pelvis)* Patient: Lima Loyd MR#: [id number] [employer] Other XR hip RT min 2V(w/wo pelvis)* [id number] [employer] Other XR hip RT min 2V(w/wo pelvis)* : 1965 Acct:[id number] [employer] Other XR hip RT min 2V(w/wo pelvis)* Age/Sex: 56 / M ADM Date: 02/02/22 [facility] Other XR hip RT min 2V(w/wo pelvis)* [place] [facility] [place]: Type: [facility] [employer] Other XR hip RT min 2V(w/wo pelvis)* Attending Dr: Gaurav Higuera DO [employer] Other XR hip RT min 2V(w/wo pelvis)* Ordering Provider: Gaurav Higuera DO [employer] Other XR hip RT min 2V(w/wo pelvis)* Date of Service: 02/02/22 [facility] Other XR hip RT min 2V(w/wo pelvis)* XR/XR hip RT min 2V(w/wo pelvis)*: Right hip pain [employer] Other XR hip RT min 2V(w/wo pelvis)* Copies to: Gaurav Higuera DO [employer] Other XR hip RT min 2V(w/wo pelvis)* Pelvis and right hip 02/02/2022. [employer] Other XR hip RT min 2V(w/wo pelvis)* CLINICAL DATA: Right hip pain. [employer] Other XR hip RT min 2V(w/wo pelvis)* FINDINGS: A single view of the pelvis and 2 views of the right hip were obtained. [employer] Other XR hip RT min 2V(w/wo pelvis)* The right and left acetabula appear shallow. No acute fracture or dislocation is identified. 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 No bony erosion or destruction is [employer] Other XR hip RT min 2V(w/wo pelvis)* visualized. There are postsurgical changes related to L4-L5 interbody fusion. [employer] Other XR hip RT min 2V(w/wo pelvis)* XR/XR hip RT min 2V(w/wo pelvis)* [facility] Other XR hip RT min 2V(w/wo pelvis)* IMPRESSION: Shallow acetabula. Mild degenerative changes. No acute bony abnormality. [facility] Other XR hip RT min 2V(w/wo pelvis)* Impression dictated by: Junito Sims Jr., M.D.02/02/2022 11:14 AM [facility] Other XR hip RT min 2V(w/wo pelvis)* Dictation Location: [place] [address] [employer] Other XR hip RT min 2V(w/wo pelvis)* Transcribed By: ALDEN 02/02/22 1114 [facility] Other XR hip RT min 2V(w/wo pelvis)* Dictated By: Junito Sims Jr, MD 02/02/22 1104 [facility] Other XR hip RT min 2V(w/wo pelvis)* Signed By: [employer] Other XR hip RT min 2V(w/wo pelvis)* 02/02/22 1116 [facility] Other XR knee BI 2Von 02-02-2022 XR knee BI 2V [id number]) XR/XR knee BI 2V: Z96.653 [facility] Other XR knee BI 2V BILATERAL KNEES - 2 views each [facility] Other XR knee BI 2V CLINICAL HISTORY: Follow-up bilateral TKA [employer] Other XR knee BI 2V COMPARISON: Knee ser ies 02/02/2021 [facility] Other XR knee BI 2V FINDINGS: Bilateral knee prostheses are in place without radiographic complication. No acute bony [employer] Other XR knee BI 2V process is seen. No joint effusions. [facility] Other XR knee BI 2V X R/XR knee BI 2V [facility] Other XR knee BI 2V IMPRESSION: [employer] Other XR knee BI 2V NO EVIDENCE OF HARDW ARE COMPLICATION. [employer] Other XR knee BI 2V Impression dictated by: Abad Perez Jr., D.O.02/02/2022 10:27 AM [facility] Other XR knee BI 2V Dictation Location: [place] [address] [employer] Other XR knee BI 2V Transcribed By: PWS 02/02/22 [facility] [employer] Other XR knee BI 2V Dictated By: Abad Perez Jr, DO 02/02/22 [facility] [employer] Other XR knee BI 2V Signed By: [employer] Other XR knee BI 2V 02/02/22 [facility] [employer] Other Vital Signs Date Time Vital Sign Value Performing Clinician Facility 09-27-2024 08:59-0500 Body height [address] [facility] Work Phone: [facility] 09-27-2024 08:59-0500 Body mass index (BMI) [Ratio] 38.77 kg/m2 Venkat Brown DPM Work Phone: [facility] 09-27-2024 08:59-0500 Body weight 136.99 kg Venkat Brown DPM Work Phone: [facility] 09-27-2024 08:59-0500 Respiratory rate 16 /min Venkat Brown DPM Work Phone: [facility] 09-20-2024 09:09-0500 Body height 188 cm Venkat Brown DPM Work Phone: [facility] 09-20-2024 09:09-0500 Body mass index (BMI) [Ratio] 38.77 kg/m2 Venkat Brown DPM Work Phone: [facility] 09-20-2024 09:09-0500 Body weight 136.99 kg Venkat Brown DPM Work Phone: [facility] 09-20-2024 09:09-0500 Respiratory rate 16 /min Venkat Brown DPM Work Phone: [facility] 09-11-2024 13:49-0500 Body height 188 cm Venkat Brown DPM Work Phone: [facility] 09-11-2024 13:49-0500 Body mass index (BMI) [Ratio] 38.77 kg/m2 Venkat Brown DPM Work Phone: [facility] 09-11-2024 13:49-0500 Body weight 136.99 kg Venkat Brown DPM Work Phone: [facility] 09-11-2024 13:49-0500 Respiratory rate 18 /min Venkat Brown DPM Work Phone: [facility] 08-26-2024 09:24-0500 Body height 188 cm Venkat Brown DPM Work Phone: [facility] 08-26-2024 09:24-0500 Body mass index (BMI) [Ratio] 38.77 kg/m2 Venkat Brown DPM Work Phone: [facility] 08-26-2024 09:24-0500 Body weight 136.99 kg Venkat Paredes DPM Work Phone: [facility] 08-26-2024 09:24-0500 Diastolic blood pressure 80 mm[Hg] Venkat Paredes DPM Work Phone: [facility] 08-26-2024 09:24-0500 Heart rate 82 /min Venkat Paredes DPM Work Phone: [facility] 08-26-2024 09:24-0500 Systolic blood pressure 131 mm[Hg] Venkat Paredes DPM Work Phone: [facility] 08-05-2024 09:16-0400 Body height 188 cm Venkat Paredes DPM Work Phone: [facility] 08-05-2024 09:16-0400 Body mass index (BMI) [Ratio] 38.77 kg/m2 Venkat Paredes DPM Work Phone: [facility] 08-05-2024 09:16-0400 Body weight 136.99 kg Venkat Paredes DPM Work Phone: [facility] 08-05-2024 09:16-0400 Diastolic blood pressure 80 mm[Hg] Venkat Paredes DPM Work Phone: [facility] 08-05-2024 09:16-0400 Heart rate 88 /min Venkat Paredes DPM Work Phone: [facility] 08-05-2024 09:16-0400 Systolic blood pressure 129 mm[Hg] Venkat Tyson DPM Work Phone: [facility] 05-09-2024 09:50-0400 Blood Pressure Location Patito Lue [facility] 05-09-2024 09:50-0400 Body temperature 96.8 [degF] Patito Lue [facility] 05-09-2024 09:50-0400 Diastolic blood pressure 80 mm[Hg] Patito Lue [facility] 05-09-2024 09:50-0400 Heart rate 78 /min Patito Lue [facility] 05-09-2024 09:50-0400 Respiratory rate 19 /min Patito Lue [facility] 05-09-2024 09:50-0400 Systolic blood pressure 138 mm[Hg] Patito Lue [facility] 12-04-2023 08:47-0500 Body height 187.96 cm MD Jeff Terrell Work Phone: [facility] 12-04-2023 08:47-0500 Body mass index (BMI) [Ratio] 40.4 kg/m2 MD Jeff Terrell Work Phone: [facility] 12-04-2023 08:47-0500 Body weight 142.88 kg MD Jeff Terrell Work Phone: [facility] 11-03-2023 09:58-0500 Blood Pressure Location Patito Lue [facility] 11-03-2023 09:58-0500 Diastolic blood pressure 82 mm[Hg] Patito Lue [facility] 11-03-2023 09:58-0500 Heart rate 80 /min Patito Lue [facility] 11-03-2023 09:58-0500 Systolic blood pressure 128 mm[Hg] [facility] Lue [facility] 10-30-2023 10:43-0500 Diastolic blood pressure 96 mm[Hg] MD Jeff Terrell Work Phone: [facility] 10-30-2023 10:43-0500 Heart rate 72 /min MD Jeff Terrell Work Phone: [facility] 10-30-2023 10:43-0500 Respiratory rate 18 /min MD Jeff Terrell Work Phone: [facility] 10-30-2023 10:43-0500 SaO2% (BldA) [Mass fraction] 93 % MD Jeff Terrell Work Phone: [facility] 10-30-2023 10:43-0500 Systolic blood pressure 154 mm[Hg] MD Jeff Terrell Work Phone: [facility] 10-30-2023 07:55-0500 Body height 187.96 cm MD Jeff Terrell Work Phone: [facility] 10-30-2023 07:55-0500 Body temperature 97.9 [degF] MD Jeff Terrell Work Phone: [facility] 10-30-2023 07:55-0500 Body weight 144.24 kg MD Jeff Terrell Work Phone: [facility] 10-25-2023 10:45-0500 Body height 187.96 cm MD Jeff Terrell Work Phone: [facility] 09-26-2023 11:58-0500 Diastolic blood pressure 82 mm[Hg] Patito Lue [facility] 09-26-2023 11:58-0500 Heart rate 72 /min Patito Lue [facility] 09-26-2023 11:58-0500 Mean blood pressure 104 mm[Hg] Patito Lue [facility] 09-26-2023 11:58-0500 Respiratory rate 18 /min Patito Lue [facility] 09-26-2023 11:58-0500 SaO2% (BldA) [Mass fraction] 96 % Patito Lue [facility] 09-26-2023 11:58-0500 Systolic blood pressure 148 mm[Hg] Patito Lue [facility] 09-26-2023 11:12-0500 Heart rate 80 /min Patito Lue [facility] 09-26-2023 11:12-0500 SaO2% (BldA) [Mass fraction] 94 % Patito Lue [facility] 09-26-2023 11:10-0500 Body temperature 97.7 [degF] Patito Lue [facility] 09-26-2023 11:10-0500 Respiratory rate 20 /min Patito Lue [facility] 09-26-2023 11:08-0500 Blood Pressure Location Patito Lue [facility] 09-26-2023 11:08-0500 Diastolic blood pressure 88 mm[Hg] Patito Lue [facility] 09-26-2023 11:08-0500 Mean blood pressure 112 mm[Hg] Patito Lue [facility] 09-26-2023 11:08-0500 Systolic blood pressure 160 mm[Hg] Patito Lue [facility] 09-26-2023 11:08-0500 Mean blood pressure 112 mm[Hg] Patito Lue [facility] 09-26-2023 11:00-0500 Body temperature 98.24 [degF] Patito Lue [facility] 09-26-2023 11:00-0500 Diastolic blood pressure 89 mm[Hg] Patito Lue [facility] 09-26-2023 11:00-0500 Heart rate 79 /min Patito Lue [facility] 09-26-2023 11:00-0500 Respiratory rate 11 /min Patito Lue [facility] 09-26-2023 11:00-0500 SaO2% (BldA) [Mass fraction] 93 % Patito Lue [facility] 09-26-2023 11:00-0500 Systolic blood pressure 157 mm[Hg] Patito Lue [facility] 09-26-2023 10:50-0500 Blood Pressure Location Patito Lue [facility] 09-26-2023 10:50-0500 Respiratory rate 10 /min Patito Lue [facility] 09-26-2023 10:45-0500 Respiratory rate 17 /min Patito Lue [facility] 09-26-2023 10:34-0500 Body temperature 97.7 [degF] Patito Lue [facility] 09-26-2023 10:30-0500 Respiratory rate 16 /min Patito Lue [facility] 09-26-2023 07:28-0500 Mean blood pressure 115 mm[Hg] Patito Lue [facility] 09-20-2023 11:00-0500 Body height Janine Hernandezarney Other [employer] Other 09-20-2023 11:00-0500 Body height 187.96 cm MD Jeff Terrell Work Phone: [facility] 09-06-2023 08:45-0500 Body height Gaurav Higuera Other [employer] Other 09-06-2023 08:45-0500 Body height 187.96 cm MD Jeff Terrell Work Phone: [facility] 09-06-2023 08:45-0500 Body mass index (BMI) [Ratio] 39.8 kg/m2 Gaurav Higuera Other [employer] [facility] [employer] Other 09-06-2023 08:45-0500 Body weight 140.62 kg Gaurav Higuera Other [employer] [facility] [employer] Other 09-06-2023 08:45-0500 Body weight 140.61 kg MD Jeff Terrell Work Phone: [facility] 08-29-2023 13:10-0500 Diastolic blood pressure 86 mm[Hg] MD Jeff Terrell Work Phone: [facility] 08-29-2023 13:10-0500 Heart rate 71 /min MD Jeff Terrell Work Phone: [facility] 08-29-2023 13:10-0500 Respiratory rate 16 /min MD Jeff Terrell Work Phone: [facility] 08-29-2023 13:10-0500 SaO2% (BldA) [Mass fraction] 96 % MD Jeff Terrell Work Phone: [facility] 08-29-2023 13:10-0500 Systolic blood pressure 145 mm[Hg] MD Jeff Terrell Work Phone: [facility] 08-29-2023 12:25-0500 Inhaled oxygen flow rate 8 L/min MD Jeff Terrell Work Phone: [facility] 08-29-2023 11:16-0500 Body height 187.96 cm MD Jeff Terrell Work Phone: [facility] 08-29-2023 11:16-0500 Body mass index (BMI) [Ratio] 39.3 kg/m2 MD Jeff Terrell Work Phone: [facility] 08-29-2023 11:16-0500 Body weight 139 kg MD Jeff Terrell Work Phone: [facility] 08-29-2023 09:20-0500 Body temperature 98.5 [degF] MD Jeff Terrell Work Phone: [facility] 2023 15:32-0500 Body height 187.96 cm MD Jeff Terrell Work Phone: [facility] 2023 15:32-0500 Body temperature 98.6 [degF] MD Jeff Terrell Work Phone: [facility] 2023 15:32-0500 Body weight 139.25 kg MD eJff Terrell Work Phone: [facility] 2023 15:32-0500 Diastolic blood pressure 92 mm[Hg] MD Jeff Terrell Work Phone: [facility] 2023 15:32-0500 Heart rate 83 /min MD Jeff Terrell Work Phone: [facility] 2023 15:32-0500 Respiratory rate 16 /min MD Jeff Terrell Work Phone: [facility] 2023 15:32-0500 SaO2% (BldA) [Mass fraction] 96 % MD Jeff Terrell Work Phone: [facility] 2023 15:32-0500 Systolic blood pressure 178 mm[Hg] MD Jeff Terrell Work Phone: [facility] 08-18-2023 10:14-0400 Diastolic blood pressure 81 mm[Hg] Patito Sweet [facility] 08-18-2023 10:14-0400 Heart rate 72 /min Patito Lue [facility] 08-18-2023 10:14-0400 Systolic blood pressure 136 mm[Hg] Patito Lue [facility] 06-30-2023 09:15-0400 Body height Gaurav Higuera Other [facility] [employer] Other 06-30-2023 09:15-0400 Body mass index (BMI) [Ratio] 36.84 kg/m2 Gaurav Higuera Other [facility] [employer] Other 06-30-2023 09:15-0400 Body weight 130.18 kg Gaurav Higuera Other [facility] [employer] Other 04-25-2023 10:43-0400 Diastolic blood pressure 95 mm[Hg] MD Jeff Terrell Work Phone: [facility] 04-25-2023 10:43-0400 Heart rate 71 /min MD Jeff Terrell Work Phone: [facility] 04-25-2023 10:43-0400 Respiratory rate 16 /min MD Jeff Terrell Work Phone: [facility] 04-25-2023 10:43-0400 SaO2% (BldA) [Mass fraction] 95 % MD Jeff Terrell Work Phone: [facility] 04-25-2023 10:43-0400 Systolic blood pressure 146 mm[Hg] MD Jeff Terrell Work Phone: [facility] 04-25-2023 10:13-0400 Inhaled oxygen flow rate 6 L/min MD Jeff Terrell Work Phone: [facility] 04-25-2023 09:01-0400 Body mass index (BMI) [Ratio] 39.4 kg/m2 MD Jeff Terrell Work Phone: [facility] 04-25-2023 08:57-0400 Body height 187.96 cm MD Jeff Terrell Work Phone: [facility] 04-25-2023 08:57-0400 Body weight 139.25 kg MD Jeff Terrell Work Phone: [facility] 04-25-2023 08:17-0400 Body temperature 97.6 [degF] MD Jeff Terrell Work Phone: [facility] 03-24-2023 09:45-0400 Body height Gaurav Higuera Other [employer] [facility] [employer] Other 03-24-2023 09:45-0400 Body mass index (BMI) [Ratio] 36.84 kg/m2 Gaurav Higuera Other [employer] Other 03-24-2023 09:45-0400 Body weight 130.18 kg Gaurav Higuera Other [employer] Other 03-14-2023 15:16-0400 Diastolic blood pressure 88 mm[Hg] MD Jeff Terrell Work Phone: [facility] 03-14-2023 15:16-0400 Heart rate 76 /min MD Jeff Terrell Work Phone: [facility] 03-14-2023 15:16-0400 Respiratory rate 16 /min MD Jeff Terrell Work Phone: [facility] 03-14-2023 15:16-0400 SaO2% (BldA) [Mass fraction] 98 % MD Jeff Terrell Work Phone: [facility] 03-14-2023 15:16-0400 Systolic blood pressure 159 mm[Hg] MD Jeff Terrell Work Phone: [facility] 03-14-2023 14:32-0400 Inhaled oxygen flow rate 6 L/min MD Jeff Terrell Work Phone: [facility] 03-14-2023 13:27-0400 Body height 187.96 cm MD Jeff Terrell Work Phone: [facility] 03-14-2023 13:27-0400 Body weight 139.25 kg MD Jeff Terrell Work Phone: [facility] 03-14-2023 13:21-0400 Body mass index (BMI) [Ratio] 17.9 kg/m2 MD Jeff Terrell Work Phone: [facility] 03-14-2023 11:29-0400 Body temperature 98.5 [degF] MD Jeff Terrell Work Phone: [facility] 02-24-2023 12:15-0400 Body height Gaurav Davida Other [facility] [employer] Other 02-24-2023 12:15-0400 Body mass index (BMI) [Ratio] 36.84 kg/m2 Gaurav Davida Other [employer] Other 02-24-2023 12:15-0400 Body weight 130.18 kg Gaurav Davida Other [employer] Other 02-07-2023 17:15-0400 Body height Tomi Talaveraoni Other [facility] [employer] Other 01-30-2023 14:03-0400 Body height 187.96 cm MD Jeff Terrell Work Phone: [facility] 01-30-2023 14:03-0400 Body temperature 97.8 [degF] MD Jeff Terrell Work Phone: [facility] 01-30-2023 14:03-0400 Body weight 138 kg MD Jeff Terrell Work Phone: [facility] 01-30-2023 14:03-0400 Diastolic blood pressure 92 mm[Hg] MD Jeff Terrell Work Phone: [facility] 01-30-2023 14:03-0400 Heart rate 86 /min MD Jeff Terrell Work Phone: [facility] 01-30-2023 14:03-0400 Respiratory rate 18 /min MD Jeff Terrell Work Phone: [facility] 01-30-2023 14:03-0400 SaO2% (BldA) [Mass fraction] 95 % MD Jeff Terrell Work Phone: [facility] 01-30-2023 14:03-0400 Systolic blood pressure 186 mm[Hg] MD Jeff Terrell Work Phone: [facility] 12-21-2022 07:41-0500 Blood Pressure Location Patito Lue [facility] 12-21-2022 07:41-0500 Diastolic blood pressure 87 mm[Hg] Patito Lue [facility] 12-21-2022 07:41-0500 Heart rate 72 /min Patito Lue [facility] 12-21-2022 07:41-0500 Systolic blood pressure 137 mm[Hg] Patito Lue [facility] 11-29-2022 15:53-0500 Diastolic blood pressure 91 mm[Hg] MD Jeff Terrell Work Phone: [facility] 11-29-2022 15:53-0500 Heart rate 95 /min MD Jeff Terrell Work Phone: [facility] 11-29-2022 15:53-0500 Respiratory rate 16 /min MD Jeff Terrell Work Phone: [facility] 11-29-2022 15:53-0500 SaO2% (BldA) [Mass fraction] 93 % MD Jeff Terrell Work Phone: [facility] 11-29-2022 15:53-0500 Systolic blood pressure 142 mm[Hg] MD Jeff Terrell Work Phone: [facility] 11-29-2022 15:00-0500 Body temperature 97.2 [degF] MD Jeff Terrell Work Phone: [facility] 11-29-2022 14:35-0500 Inhaled oxygen flow rate 8 L/min MD Jeff Terrell Work Phone: [facility] 11-29-2022 12:37-0500 Body height 187.96 cm MD Jeff Terrell Work Phone: [facility] 11-29-2022 12:37-0500 Body mass index (BMI) [Ratio] 38.1 kg/m2 MD Jeff Terrell Work Phone: [facility] 11-29-2022 12:37-0500 Body weight 134.71 kg MD Jeff Terrell Work Phone: [facility] 11-29-2022 00:00-0500 Body weight 533 mg MD Jeff Terrell Work Phone: [facility] 11-24-2022 10:00-0500 Body height Tomi Leach Other [employer] Other 11-24-2022 10:00-0500 Body mass index (BMI) [Ratio] 36.84 kg/m2 Tomi Leach Other [employer] Other 11-24-2022 10:00-0500 Body weight 130.18 kg Tomi Leach Other [employer] Other 11-02-2022 09:55-0500 Diastolic blood pressure 94 mm[Hg] MD Jeff Terrell Work Phone: [facility] 11-02-2022 09:55-0500 Heart rate 61 /min MD Jeff Terrell Work Phone: [facility] 11-02-2022 09:55-0500 Respiratory rate 18 /min MD Jeff Terrell Work Phone: [facility] 11-02-2022 09:55-0500 SaO2% (BldA) [Mass fraction] 96 % MD Jeff Terrell Work Phone: [facility] 11-02-2022 09:55-0500 Systolic blood pressure 153 mm[Hg] MD Jeff Terrell Work Phone: [facility] 11-02-2022 08:12-0500 Body height 187.96 cm MD Jeff Terrell Work Phone: [facility] 11-02-2022 08:12-0500 Body weight 134.71 kg MD Jeff Terrell Work Phone: [facility] 09-30-2022 16:42-0500 Body height 187.96 cm MD Jeff Terrell Work Phone: [facility] 09-30-2022 16:42-0500 Body mass index (BMI) [Ratio] 38.5 kg/m2 MD Jeff Terrell Work Phone: [facility] 09-30-2022 16:42-0500 Body weight 136.07 kg MD Jeff Terrell Work Phone: [facility] 09-30-2022 14:40-0500 Diastolic blood pressure 96 mm[Hg] MD Jeff Terrell Work Phone: [facility] 09-30-2022 14:40-0500 Heart rate 64 /min MD Jeff Terrell Work Phone: [facility] 09-30-2022 14:40-0500 Respiratory rate 18 /min MD Jeff Terrell Work Phone: [facility] 09-30-2022 14:40-0500 SaO2% (BldA) [Mass fraction] 96 % MD Jeff Terrell Work Phone: [facility] 09-30-2022 14:40-0500 Systolic blood pressure 148 mm[Hg] MD Jeff Terrell Work Phone: [facility] 09-30-2022 10:48-0500 Body height 187.96 cm MD Jeff Terrell Work Phone: [facility] 09-30-2022 10:48-0500 Body temperature 98.1 [degF] MD Jeff Terrell Work Phone: [facility] 09-30-2022 10:48-0500 Body weight 136.07 kg MD Jeff Terrell Work Phone: [facility] 09-21-2022 08:22-0500 Blood Pressure Location Patito Lue [facility] 09-21-2022 08:22-0500 Diastolic blood pressure 80 mm[Hg] Patito Lue [facility] 09-21-2022 08:22-0500 Heart rate 64 /min Patito Lue [facility] 09-21-2022 08:22-0500 Respiratory rate 16 /min Patito Lue [facility] 09-21-2022 08:22-0500 Systolic blood pressure 125 mm[Hg] Patito Lue [facility] 08-23-2022 17:13-0500 Diastolic blood pressure 94 mm[Hg] MD Jeff Terrell Work Phone: [facility] 08-23-2022 17:13-0500 Heart rate 70 /min MD Jeff Terrell Work Phone: [facility] 08-23-2022 17:13-0500 Respiratory rate 16 /min MD Jeff Terrell Work Phone: [facility] 08-23-2022 17:13-0500 SaO2% (BldA) [Mass fraction] 95 % MD Jeff Terrell Work Phone: [facility] 08-23-2022 17:13-0500 Systolic blood pressure 148 mm[Hg] MD Jeff Terrell Work Phone: [facility] 08-23-2022 16:16-0500 Body height 187.96 cm MD Jeff Terrell Work Phone: [facility] 08-23-2022 16:16-0500 Body mass index (BMI) [Ratio] 38.2 kg/m2 MD Jeff Terrell Work Phone: [facility] 08-23-2022 16:16-0500 Body weight 135.3 kg MD Jeff Terrell Work Phone: [facility] 08-23-2022 12:17-0500 Body temperature 99.4 [degF] MD Jeff Terrell Work Phone: [facility] 08-11-2022 09:20-0400 Body height Ramiro George Other [employer] [facility] [employer] Other 08-11-2022 09:20-0400 Body mass index (BMI) [Ratio] 37.49 kg/m2 Ramiro George Other [employer] Other 08-11-2022 09:20-0400 Body weight 132.45 kg Ramiro George Other [employer] Other 08-10-2022 09:49-0400 Blood Pressure Location Patito Kee [facility] 08-10-2022 09:49-0400 Diastolic blood pressure 87 mm[Hg] Patito Moctezumae [facility] 08-10-2022 09:49-0400 Heart rate 76 /min Patito Lue [facility] 08-10-2022 09:49-0400 Respiratory rate 16 /min Patito Lue [facility] 08-10-2022 09:49-0400 Systolic blood pressure 134 mm[Hg] Patito Lue [facility] 08-02-2022 15:15-0400 Body height Tomi Talaveraoni Other [employer] Other 07-26-2022 08:48-0400 Diastolic blood pressure 85 mm[Hg] MD Jeff Terrell Work Phone: [facility] 07-26-2022 08:48-0400 Heart rate 69 /min MD Jeff Terrell Work Phone: [facility] 07-26-2022 08:48-0400 Respiratory rate 16 /min MD Jeff Terrell Work Phone: [facility] 07-26-2022 08:48-0400 SaO2% (BldA) [Mass fraction] 95 % MD Jeff Terrell Work Phone: [facility] 07-26-2022 08:48-0400 Systolic blood pressure 137 mm[Hg] MD Jeff Terrell Work Phone: [facility] 07-26-2022 08:05-0400 Inhaled oxygen flow rate 3 L/min MD Jeff Terrell Work Phone: [facility] 07-26-2022 06:41-0400 Body height 187.96 cm MD Jeff Terrell Work Phone: [facility] 07-26-2022 06:41-0400 Body weight 130.18 kg MD Jeff Terrell Work Phone: [facility] 07-12-2022 08:29-0400 Blood Pressure Location Patito Lue [facility] 07-12-2022 08:29-0400 Diastolic blood pressure 84 mm[Hg] Patito Lue [facility] 07-12-2022 08:29-0400 Heart rate 72 /min Patito Lue [facility] 07-12-2022 08:29-0400 Systolic blood pressure 136 mm[Hg] Patito Lue [facility] 06-23-2022 12:14-0400 Diastolic blood pressure 83 mm[Hg] Ronak Zumbar [facility] 06-23-2022 12:14-0400 Heart rate 60 /min Ronak Zumbar [facility] 06-23-2022 12:14-0400 Mean blood pressure 104 mm[Hg] Ronak Zumbar [facility] 06-23-2022 12:14-0400 Respiratory rate 16 /min Ronak Zumbar [facility] 06-23-2022 12:14-0400 Systolic blood pressure 146 mm[Hg] Ronak Zumbar [facility] 06-14-2022 10:42-0400 Diastolic blood pressure 62 mm[Hg] MD Jeff Terrell Work Phone: [facility] 06-14-2022 10:42-0400 Heart rate 65 /min MD Jeff Terrell Work Phone: [facility] 06-14-2022 10:42-0400 Respiratory rate 20 /min MD Jeff Terrell Work Phone: [facility] 06-14-2022 10:42-0400 SaO2% (BldA) [Mass fraction] 98 % MD Jeff Terrell Work Phone: [facility] 06-14-2022 10:42-0400 Systolic blood pressure 150 mm[Hg] MD Jeff Terrell Work Phone: [facility] 06-14-2022 10:01-0400 Inhaled oxygen flow rate 3 L/min MD Jeff Terrell Work Phone: [facility] 06-14-2022 08:29-0400 Body height 187.96 cm MD Jeff Terrell Work Phone: [facility] 06-14-2022 08:29-0400 Body weight 130.18 kg MD Jeff Terrell Work Phone: [facility] 05-26-2022 10:12-0400 Diastolic blood pressure 66 mm[Hg] Ronak Zumbar [facility] 05-26-2022 10:12-0400 Heart rate 70 /min Ronak Zumbar [facility] 05-26-2022 10:12-0400 Mean blood pressure 83 mm[Hg] Ronak Zumbar [facility] 05-26-2022 10:12-0400 Respiratory rate 16 /min Ronak Zumbar [facility] 05-26-2022 10:12-0400 Systolic blood pressure 118 mm[Hg] Ronak Zumbar [facility] 05-09-2022 10:30-0400 Body height Gaurav Higuera Other [facility] Other 05-09-2022 10:30-0400 Body mass index (BMI) [Ratio] 37.23 kg/m2 Gaurav Higuera Other [facility] Other 05-09-2022 10:30-0400 Body weight 131.54 kg Gaurav Higuera Other [facility] Other 03-16-2022 13:00-0400 Body height Gaurav Higuera Other [facility] Other 02-16-2022 15:00-0400 Body height Gaurav Higuera Other [facility] Other 02-16-2022 15:00-0400 Body mass index (BMI) [Ratio] 39.54 kg/m2 Gaurav Davida Other [facility] Other 02-16-2022 15:00-0400 Body weight 139.71 kg Gaurav Higuera Other [facility] Other 02-02-2022 09:15-0400 Body height Gaurav Higuera Other [facility] Other 02-02-2022 09:15-0400 Body mass index (BMI) [Ratio] 39.54 kg/m2 Gaurav Davida Other [facility] Other 02-02-2022 09:15-0400 Body weight 139.71 kg Gaurav Davida Other [facility] Other Encounters Encounter Date Encounter Type Care Provider Facility Start: 11-08-2024 ambulatory Patito Sweet Facility:[facility] [place] Start: 09-27-2024 End: 09-27-2024 Prince Paredes DPM Work Phone: [facility] Start: 09-27-2024 End: 09-27-2024 Bamboo ResoServannamarie Paredes DPM Work Phone: [facility] Start: 09-27-2024 End: 09-27-2024 Office outpatient visit 15 minutes Venkat Paredes DPM Work Phone: [facility] Comment on above: Paronychia, toe, lef t (Primary Dx); Paronychia, toe, right; Plantar fasciitis; Peroneal tendinitis, right; Contracture of right ankle Start: 09-27-2024 End: 09-27-2024 ambulatory VENKAT PAREDES Not Available Start: 09-20-2024 End: 09-20-2024 Bamboo flowsheet Venkat Paredes DPM Work Phone: [facility] Start: 09-20-2024 End: 09-20-2024 Bamboo flowsheet Venkat Hussain Paredes DPM Work Phone: [facility] Start: 09-20-2024 End: 09-20-2024 Office outpatient visit 15 minutes Venkat Paredes DPM Work Phone: [facility] Comment on above: Paronychia, toe, lef t (Primary Dx); Paronychia, toe, right; Pain due to onychomycosis of toenails of both feet; Plantar fasciitis Start: 09-20-2024 End: 09-20-2024 ambulatory VENKAT PAREDES Not Available Start: 09-11-2024 End: 09-11-2024 Office outpatient visit 15 minutes Venkat Paredes DPM Work Phone: [facility] Comment on above: Paronychia, toe, lef t (Primary Dx); Paronychia, toe, right Start: 09-11-2024 End: 09-11-2024 Bamboo flowsheet Venkat Paredes DPM Work Phone: [facility] Start: 09-11-2024 End: 09-11-2024 Bamboo flowsheet Venkat Paredes DPM Work Phone: [facility] Start: 09-11-2024 End: 09-11-2024 ambulatory VENKAT PAREDES Not Available Start: 08-26-2024 End: 08-26-2024 Bamboo flowsheet Venkat [...] encounter procedure MD Jeff Terrell Work Phone: [facility]Electrodiagnostics Work Phone: Start: 08-20-2024 End: 08-20-2024 ambulatory MD Jeff Terrell Work Phone: [facility] Work Phone: Start: 08-05-2024 End: 08-05-2024 Bamboo flowsheet Venkat Paredes DPM Work Phone: [facility] Start: 08-05-2024 End: 08-05-2024 Bamboo flowsheet Venkat Paredes DPM Work Phone: [facility] Start: 08-05-2024 End: 08-05-2024 ambulatory VENKAT PAREDES Not Available Start: 08-05-2024 End: 08-05-2024 Office outpatient new 30 minutes Venkat Paredes DPM Work Phone: [facility] Comment on above: 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 (Primary Dx); Plantar fasciitis; Paronychia, toe, left; Paronychia, toe, right Start: 07-08-2024 End: 07-08-2024 ambulatory MD Jeff Terrell Work Phone: [facility] Work Phone: Start: 07-08-2024 End: 07-08-2024 Discharged Recurring MD Jeff Terrell Work Phone: [facility] Start: 06-12-2024 End: 06-12-2024 ambulatory MD Jeff Terrell Work Phone: [facility] Work Phone: Start: 06-12-2024 End: 06-12-2024 Patient encounter procedure MD Jeff Terrell Work Phone: [facility] [place] [facility] Work Phone: Start: 06-06-2024 Registered Recurring MD Bernie Terrell Work Phone: [facility] Start: 05-20-2024 End: 05-20-2024 ambulatory MD Jeff Terrell Work Phone: [facility] Work Phone: Start: 05-20-2024 End: 05-20-2024 Patient encounter procedure MD Jeff Terrell Work Phone: [facility] Work Phone: Start: 05-09-2024 End: 05-09-2024 ambulatory Patito Sweet Facility: [facility] Start: 05-09-2024 End: 05-09-2024 Patient encounter procedure Patito Sweet [facility] Start: 05-07-2024 End: 05-07-2024 Patient encounter procedure MD Jeff Terrell Work Phone: [facility] [place] Work Phone: Start: 05-07-2024 End: 05-07-2024 ambulatory MD Jeff Terrell Work Phone: [facility] Work Phone: Start: 04-29-2024 End: 04-29-2024 ambulatory MD Jeff Terrell Work Phone: [facility] Work Phone: Start: 04-29-2024 End: 04-29-2024 Patient encounter procedure MD Jeff Terrell Work Phone: [facility] [place] [facility] Work Phone: Start: 03-13-2024 End: 03-13-2024 ambulatory MD Jeff Terrell Work Phone: [facility] Work Phone: Start: 03-13-2024 End: 03-13-2024 Patient encounter procedure MD Jeff Terrell Work Phone: [facility] Work Phone: Start: 03-13-2024 End: 03-13-2024 Patient encounter procedure MD Jeff Terrell Work Phone: [facility] [place] [facility] Start: 03-13-2024 End: 03-13-2024 ambulatory MD Jeff Terrell Work Phone: [facility] Work Phone: Start: 02-19-2024 End: 02-19-2024 ambulatory MD Jeff Terrell Work Phone: [facility] Work Phone: Start: 02-19-2024 End: 02-19-2024 Patient encounter procedure MD Jeff Terrell Work Phone: [facility] Work Phone: Start: 02-19-2024 Non-patient / Non-visit [facility] Work Phone: Start: 02-01-2024 End: 02-01-2024 ambulatory MD Jeff Terrell Work Phone: [facility] Work Phone: Start: 02-01-2024 End: 02-01-2024 Patient encounter procedure MD Jeff Terrell Work Phone: [facility] Work Phone: Start: 01-10-2024 End: 01-10-2024 ambulatory MD Jeff Terrell Work Phone: [facility] Work Phone: Start: 01-10-2024 End: 01-10-2024 Patient encounter procedure MD Jeff Terrell Work Phone: [facility] Work Phone: Start: 12-18-2023 End: 12-18-2023 ambulatory [facility] Facility:[facility] Start: 12-06-2023 End: 12-06-2023 ambulatory MD Jeff Terrell Work Phone: [facility] Work Phone: Start: 12-06-2023 End: 12-06-2023 Patient encounter procedure MD Jeff Terrell Work Phone: [facility] [place] [facility] Work Phone: Start: 12-04-2023 End: 12-04-2023 Patient encounter procedure MD Jeff Terrell Work Phone: [facility] Work Phone: Start: 12-04-2023 End: 12-04-2023 ambulatory MD Jeff Terrell Work Phone: [facility] Work Phone: Start: 12-04-2023 Registered Recurring MD Bernie Terrell Work Phone: [facility] Start: 11-23-2023 End: 11-23-2023 Patient encounter procedure MD Jeff Terrell Work Phone: [facility] [place] Work Phone: Start: 11-23-2023 End: 11-23-2023 ambulatory Jeff Terrell Facility:[facility] Start: 11-10-2023 End: 11-10-2023 ambulatory Melissa Blackmanjose a Other [facility] Other Start: 11-10-2023 Encounter for other preprocedural examination Melissa Calvey [facility] [place] [facility] Start: 11-10-2023 Postop follow up vis it related to original px Melissa Calvey [facility] [place] [facility] Start: 11-03-2023 End: 11-03-2023 ambulatory Patito Sweet Facility:[facility] Start: 11-03-2023 End: 11-03-2023 Patient encounter procedure Patito Sweet [facility] Start: 10-30-2023 End: 10-30-2023 Admission to same day surgery center MD Jeff Terrell Work Phone: [facility] [place] Start: 10-30-2023 End: 10-30-2023 ambulatory MD Jeff Terrell Work Phone: [facility] Work Phone: Start: 10-25-2023 End: 10-25-2023 ambulatory Melissa Castellano Other [facility] Other Start: 10-25-2023 Encounter for other preprocedural examination Melissa Calvey [facility] [place] [facility] Start: 10-25-2023 Office outpatient ne w 45 minutes Melissa Calvey [facility] [place] [facility] Start: 10-25-2023 Telephone encounter Melissa Sky [facility] Start: 10-25-2023 End: 10-25-2023 Patient encounter procedure MD Jeff Terrell Work Phone: [facility] [place] [facility] Work Phone: Start: 09-26-2023 End: 09-26-2023 Admission to same day surgery center Patito Sweet [facility] Start: 09-26-2023 End: 09-26-2023 ambulatory Patito Sweet [facility] Start: 09-20-2023 End: 09-20-2023 ambulatory Janine Maynard Other [facility] Other Start: 09-20-2023 Office outpatient vi sit 15 minutes Janine Maynard [facility] [place] [facility] Start: 09-20-2023 End: 09-20-2023 Patient encounter procedure MD Jeff Tererll Work Phone: [facility] [place] [facility] Work Phone: Start: 09-15-2023 End: 09-15-2023 Patient encounter procedure MD Jeff Terrell Work Phone: [facility]XRay [facility] Work Phone: Start: 09-15-2023 End: 09-15-2023 ambulatory MD Jeff Terrell Work Phone: [facility] Work Phone: Start: 09-06-2023 End: 09-06-2023 ambulatory Gaurav Higuera Other [facility] Other Start: 09-06-2023 Postop follow up vis it related to original px Gaurav Higuera [facility] Start: 09-06-2023 End: 09-06-2023 Patient encounter procedure MD Jeff Terrell Work Phone: [facility] Work Phone: Start: 08-29-2023 End: 08-29-2023 Admission to same day surgery center MD Jeff Terrell Work Phone: [facility] [place] Start: 08-29-2023 End: 08-29-2023 ambulatory MD Jeff Terrell Work Phone: [facility] Work Phone: Start: 2023 End: 2023 Emergency department patient visit MD Jeff Terrell Work Phone: [facility]-Emergency Room Work Phone: Start: 08-21-2023 Registered Recurring MD Bernie Terrell Work Phone: [facility] Start: 08-18-2023 End: 08-18-2023 ambulatory Patito Sweet Facility:[facility] Start: 08-18-2023 End: 08-18-2023 Patient encounter procedure Patito Sweet [facility] Start: 08-15-2023 End: 08-15-2023 ambulatory MD Jeff Terrell Work Phone: [facility] Work Phone: Start: 08-15-2023 End: 08-15-2023 Patient encounter procedure MD Jeff Terrell Work Phone: [facility]-Pre-Surgical Testing Work Phone: Start: 07-26-2023 End: 07-26-2023 ambulatory Gaurav Higuera Other [facility] Other Start: 07-26-2023 Office outpatient vi sit 25 minutes Gaurav Higuera [facility] [place] [facility] Start: 07-24-2023 End: 07-24-2023 ambulatory MD Jeff Terrell Work Phone: [facility] Work Phone: Start: 07-24-2023 End: 07-24-2023 Discharged Recurring MD Jeff Terrell Work Phone: [facility] Start: 07-24-2023 Registered Recurring MD Bernie Terrell Work Phone: [facility] Start: 07-20-2023 Registered Recurring MD Bernie Terrell Work Phone: [facility] Start: 07-13-2023 End: 07-13-2023 ambulatory JANINE GARCIA Facility:[facility] [place] Start: 07-13-2023 End: 07-13-2023 Patient encounter procedure JANINE GARCIA [facility] Start: 07-11-2023 ambulatory Patito Sweet Facility:[facility] Start: 07-11-2023 End: 07-11-2023 ambulatory Patito Sweet Facility:CD:[id number] Start: 07-06-2023 End: 07-06-2023 ambulatory Tomi Leach Other [facility] Other Start: 07-06-2023 Office outpatient vi sit 15 minutes Tomi Leach [facility] Start: 06-30-2023 End: 06-30-2023 ambulatory Gaurav Higuera Other [facility] Other Start: 06-30-2023 Office outpatient vi sit 25 minutes Gaurav Higuera [facility] [place] [facility] Start: 06-12-2023 End: 06-12-2023 ambulatory Gaurav Higuera Other [facility] Other Start: 06-12-2023 Postop follow up vis it related to original px Gaurav Higuera [facility] Start: 06-07-2023 (Procedure) Short Tomi Leach [facility] Start: 06-07-2023 End: 06-07-2023 ambulatory Tomi Leach Other [facility] [employer] Other Start: 05-31-2023 End: 05-31-2023 ambulatory Patito Moctezumakathy Facility:[facility] Start: 05-31-2023 End: 05-31-2023 Patient encounter procedure Patito Latisha Sweet [facility] Start: 05-25-2023 Telephone encounter Tomi Leach [facility] Start: 05-25-2023 End: 05-25-2023 ambulatory MD Jeff Terrell Work Phone: [facility] Work Phone: Start: 05-25-2023 End: 05-25-2023 Patient encounter procedure MD Jeff Terrell Work Phone: [facility] Start: 04-25-2023 End: 04-25-2023 Admission to same day surgery center MD Jeff Terrell Work Phone: [facility] [place] Start: 04-25-2023 End: 04-25-2023 ambulatory MD Jeff Terrell Work Phone: [facility] Work Phone: Start: 03-31-2023 End: 03-31-2023 ambulatory MD Jeff Terrell Work Phone: [facility] Work Phone: Start: 03-31-2023 End: 03-31-2023 Patient encounter procedure MD Jeff Terrell Work Phone: [facility] [place] Work Phone: Start: 03-24-2023 End: 03-24-2023 ambulatory Gaurav Higuera Other [facility] Other Start: 03-24-2023 Encounter for other preprocedural examination Gaurav Higuera [facility] Start: 03-24-2023 Office outpatient vi sit 25 minutes Gaurav Higuera [facility] [place] [facility] Start: 03-14-2023 End: 03-14-2023 Admission to same day surgery center MD Jeff Terrell Work Phone: [facility] [place] Start: 03-14-2023 End: 03-14-2023 ambulatory MD Jeff Terrell Work Phone: [facility] Work Phone: Start: 03-03-[address] JEFF TERRELL . Facili ty:[facility] Start: 02-28-2023 End: 02-28-2023 ambulatory MD Jeff Terrell Work Phone: [facility] Work Phone: Start: 02-28-2023 End: 02-28-2023 Patient encounter procedure MD Jeff Terrell Work Phone: [facility]-Pre-Surgical Testing Work Phone: Start: 02-24-2023 End: 02-24-2023 ambulatory Gaurav Higuera Other [facility] Other Start: 02-24-2023 Office outpatient vi sit 25 minutes Gaurav Higuera [facility] [place] [facility] Start: 02-07-2023 End: 02-07-2023 ambulatory Tomi Leach Other [facility] Other Start: 02-07-2023 Office outpatient vi sit 25 minutes Tomi Leach [facility] Start: 02-07-2023 Telephone encounter Tomi Leach [facility] Start: 02-01-2023 End: 02-01-2023 ambulatory Gaurav Higuera Other [facility] Other Start: 02-01-2023 Office outpatient vi sit 25 minutes G[facility]av [facility] Start: 01-30-2023 End: 01-30-2023 Emergency department patient visit MD Jeff Terrell Work Phone: [facility]-Emergency Room Work Phone: Start: 01-16-2023 End: 01-16-2023 Patient encounter procedure Patito Sweet [facility] Start: 01-11-2023 End: 01-11-2023 ambulatory SRIDHAR MCLAUGHLIN Facility:[facility] Start: 01-07-2023 Encounter for preprocedural laboratory examination PATITO M PRATIKKathy . [facility] Start: 01-06-2023 End: 01-06-2023 Patient encounter procedure Jeff Terrell [facility] Start: 12-30-2022 End: 12-31-2022 ambulatory PATITO SWEET . Facility:[facility] Start: 12-30-2022 End: 12-31-2022 Encounter for preprocedural laboratory examination PATITO SWEET . Facility:[facility] Start: 12-21-2022 End: 12-21-2022 Patient encounter procedure Patito MartinezAlejo Kee [facility] Start: 12-14-2022 End: 12-15-[address] MYRA SHAFFER Facility:[facility] Start: 11-29-2022 End: 11-29-2022 Admission to same day surgery center MD Jeff Terrell Work Phone: [facility] [place] Start: 11-29-2022 End: 11-29-2022 ambulatory MD Jeff Terrell Work Phone: [facility] Work Phone: Start: 11-24-2022 End: 11-24-2022 ambulatory Tomi Leach Other [facility] [employer] Other Start: 11-24-2022 Office outpatient vi sit 25 minutes Tomi MURDOCK [facility] Start: 11-24-2022 Telephone encounter Tomi GONZALEZ [facility] Start: 11-08-2022 End: 11-08-2022 Patient encounter procedure Pritesh HOLLOWAY [facility] Start: 11-04-2022 End: 11-04-2022 Patient encounter procedure Patito Sweet [facility] Start: 11-02-2022 End: 11-02-2022 Admission to same day surgery center MD Jeff Terrell Work Phone: [facility]CT Scan [facility] [place] Work Phone: Start: 11-02-2022 End: 11-02-2022 ambulatory MD Jeff Terrell Work Phone: [facility] Work Phone: Start: 10-26-2022 End: 10-26-2022 Lab Drop off Patito Sweet [facility] Start: 10-26-2022 End: 10-26-2022 Patient encounter procedure Patito Sweet [facility] Start: 10-21-2022 End: 10-21-2022 Patient encounter procedure Patito Sweet [facility] Start: 10-21-2022 End: 10-22-2022 ambulatory LIMA CAMPOS Facility: Start: 10-05-2022 End: 10-06-[address] RIVAS KINCAID Facility:[facility] Start: 09-30-2022 End: 09-30-2022 Admission to same day surgery center MD Jeff Terrell Work Phone: [facility] [place] Start: 09-30-2022 End: 09-30-2022 ambulatory MD Jeff Terrell Work Phone: [facility] Work Phone: Start: 09-29-2022 End: 09-30-[address] JEFF TERRELL . Facility:[facility] Start: 09-28-2022 End: 09-29-[address] RIVAS KINCAID Facility:[facility] Start: 09-21-2022 End: 09-21-2022 Lab Drop off Patito Sweet [facility] Start: 09-21-2022 End: 09-21-2022 Patient encounter procedure Patito Sweet [facility] Start: 09-20-2022 End: 09-21-[address] JEFF TERRELL . Facility:[facility] Start: 08-29-2022 End: 08-29-2022 ambulatory Tomi Leach Other [facility] Other Start: 08-29-2022 Telephone encounter Tomi [facility] Start: 08-23-2022 End: 08-23-2022 Admission to same day surgery center MD Jeff Terrell Work Phone: [facility] [place] Start: 08-23-2022 End: 08-23-2022 ambulatory MD Jeff Terrell Work Phone: [facility] Work Phone: Start: 08-19-2022 End: 08-19-2022 ambulatory MD Jeff Terrell Work Phone: [facility] Work Phone: Start: 08-19-2022 End: 08-19-2022 Patient encounter procedure MD Jeff Terrell Work Phone: [facility]-Pre-Surgical Testing Start: 08-15-2022 End: 08-15-2022 ambulatory Tomi Leach Other [employer] Other Start: 08-15-2022 Office outpatient vi sit 25 minutes Tomi Leach [facility] Start: 08-12-2022 End: 08-12-2022 ambulatory MD Jeff Terrell Work Phone: [facility] [employer] Work Phone: Start: 08-12-2022 End: 08-12-2022 Patient encounter procedure MD Jeff Terrell Work Phone: [facility]-Pre-Surgical Testing Start: 08-11-2022 End: 08-11-2022 ambulatory Ramiro George Other [employer] Other Start: 08-11-2022 Office outpatient ne w 30 minutes Ramiro George [facility] Start: 08-11-2022 Telephone encounter Ramiro George [facility] [employer] Start: 08-10-2022 End: 08-10-2022 Patient encounter procedure Patito Sweet [facility] Start: 08-08-2022 End: 08-08-2022 ambulatory Tomi Leach Other [employer] Other Start: 08-08-2022 Telephone encounter [facility] Start: 08-03-2022 End: 08-03-2022 ambulatory MD Jeff Terrell Work Phone: [facility] [employer] Work Phone: Start: 08-03-2022 End: 08-03-2022 Patient encounter procedure MD Jeff Terrell Work Phone: [facility]-CT Scan [facility] [place] Start: 08-02-2022 End: 08-02-2022 ambulatory Tomi Leach Other [employer] Other Start: 08-02-2022 Office outpatient vi sit 25 minutes Tomi Leach [facility] Start: 07-26-2022 End: 07-26-2022 Admission to same day surgery center MD Jeff Terrell Work Phone: [facility]-Dig[facility] Start: 07-26-2022 End: 07-26-2022 ambulatory MD Jeff Terrell Work Phone: [facility] Work Phone: Start: 07-21-2022 End: 07-21-2022 ambulatory Tomi Leach Other [employer] Other Start: 07-21-2022 Telephone encounter Tomi [facility] Start: 07-18-2022 End: 07-18-2022 Patient encounter procedure Ronak Rao [facility] Start: 07-14-2022 End: 07-14-2022 Patient encounter procedure Lauri SOLIZ [facility] Start: 07-12-2022 End: 07-12-2022 Patient encounter procedure Patito Sweet [facility] [place] Start: 06-27-2022 End: 06-27-2022 ambulatory Tomi Leach Other [facility] Other Start: 06-27-2022 Office outpatient vi sit 25 minutes Tomi Leach [facility] Start: 06-23-2022 End: 06-23-2022 Pain Management Ronak Zumbar [facility] Start: 06-22-2022 End: 06-22-2022 Patient encounter procedure Patito MartinezAlejo Kee [facility] Start: 06-14-2022 (Procedure) Short Tomi Leach [facility] Start: 06-14-2022 End: 06-14-2022 ambulatory Tomi Leach Other [employer] Other Start: 06-14-2022 End: 06-14-2022 Admission to same day surgery center MD Jeff Terrell Work Phone: [facility] Start: 06-08-2022 End: 06-09-[address] JEFF TERRELL . Facility: Start: 05-26-2022 End: 05-26-2022 ambulatory Gaurav Higuera Other [employer] [facility] [employer] Other Start: 05-26-2022 Telephone encounter [facility] Start: 05-26-2022 End: 05-26-2022 Patient encounter procedure Ronak Rao [facility] Start: 05-26-2022 End: 05-26-2022 Pain Management Ronak Rao [facility] Start: 05-20-2022 End: 05-20-2022 Patient encounter procedure MD Jeff Terrell Work Phone: [facility] [place] Start: 05-09-2022 End: 05-09-2022 ambulatory Gaurav Higuera Other [employer] Other Start: 05-09-2022 Office outpatient vi sit 25 minutes Gaurav Davida [facility] Start: 05-09-2022 End: 05-09-2022 Patient encounter procedure MD Jeff Terrell Work Phone: [facility] Start: 05-05-2022 End: 05-05-2022 ambulatory Gaurav Higuera Other [employer] Other Start: 05-05-2022 Telephone encounter Gaurav GONZALEZ [facility] Start: 03-16-2022 End: 03-16-2022 ambulatory Gaurav Higuera Other [employer] Other Start: 03-16-2022 Office outpatient vi sit 15 minutes Gaurav Higuera [facility] Start: 02-21-2022 (Procedure) Steffanie Leach [facility] Start: 02-21-2022 End: 02-21-2022 ambulatory Tomi Leach Other [employer] Other Start: 02-16-2022 End: 02-16-2022 ambulatory Gaurav Higuera Other [employer] Other Start: 02-16-2022 Office outpatient vi sit 15 minutes Gaurav Higuera [facility] Start: 02-02-2022 End: 02-02-2022 ambulatory Gaurav Higuera Other [employer] Other Start: 02-02-2022 Office outpatient vi sit 15 minutes Gaurav Higuera [facility] Start: 11-04-2021 End: 11-04-2021 ambulatory Gaurav Higuera Other [employer] Other Start: 11-04-2021 Telephone encounter Gaurav GONZALEZ [facility] Procedures Date Procedure Procedure Detail Performing Clinician Start: 08-20-2024 Basic metabolic pane l calcium total Venkat Paredes DPM Work Phone: Start: 08-20-2024 Complete blood count with white cell differential, automated Venkat Hussain Tyson [facility] Work Phone: Start: 05-07-2024 Diagnostic radiograp hy [...] 11-29-2022 Cystoscopic laser lithotripsy of ureteric calculus Patitoana m Sweet Start: 11-02-2022 Aerobic microbial culture MD Jeff [...] Terrell Work Phone: Start: 07-12-2022 Cystoscopy Patito Sweet Start: [...] C6/[address] Bowles at [facility]. Start: 05-26-2017 Epidural injection o f cervical spine using fluoroscopic guidance Ronak Rao Start: 09-16-2016 Epidural injection o f cervical spine using fluoroscopic guidance Ronak Rao Start: 10-16-2000 Back structure, excl uding neck (body structure) Ronak Rao Comment on above: lumbar fusion History of decompres edgard of median nerve S/P carpal tunnel release MD Jeff Terrell Work Phone: Total knee replacement Rosalind Rao Total knee replacement Patito Sweet Plan of Treatment Date Care Activity Detail Author Start: 10-11-2024 End: 10-11-2024 Patient encounter procedure 10/11/2024 11:10 AM EST Office Visit [facility] [address] [place] [id number] Venkat Paredes DPM [address] [address] [facility] Start: 09-27-2024 End: 09-27-2024 Patient encounter procedure [facility] Comment on above: Paronychia, toe, lef t (Primary Dx); Paronychia, toe, right; Plantar fasciitis Start: 09-20-2024 End: 09-20-2024 Patient encounter procedure [facility] Comment on above: Paronychia, toe, lef t (Primary Dx); Paronychia, toe, right; Pain due to onychomycosis of toenails of both feet; Plantar fasciitis Start: 09-11-2024 End: 09-11-2024 Patient encounter procedure [facility] Comment on above: Paronychia, toe, lef t (Primary Dx); Paronychia, toe, right Start: 08-26-2024 End: 08-26-2024 Patient encounter procedure [facility] Comment on above: Paronychia, toe, lef t (Primary Dx); Paronychia, toe, right Start: 04-29-2024 [facility] Work Phone: Start: 03-13-2024 X-ray of left knee XR knee LT 3V - NOT FOR ER USE [facility] Start: 03-13-2024 XR Knee - left 3 Views [facility] Start: 10-30-2023 [facility] Start: 08-29-2023 [facility] Start: 08-22-2023 [facility] Start: 04-25-2023 [facility] Start: 04-24-2023 [facility] Start: 03-14-2023 [facility] Start: 03-14-2023 [facility] Start: 11-29-2022 [facility] Start: 11-29-2022 [facility] Start: 11-29-2022 [facility] Start: 11-02-2022 Aerobic Culture Aerobic Culture [facility] Start: 11-02-2022 Anaerobic Culture Anaerobic Culture [facility] Start: 11-02-2022 Microscopic observat ion [Identifier] in Unspecified specimen by Gram stain Gram Stain [facility] Start: 11-02-2022 [facility] Start: 11-02-2022 Microbial culture, b yain fluid [facility] Start: 11-02-2022 CT guided percutaneo us therapeutic drainage [facility] Start: 09-30-2022 [facility] Start: 08-23-2022 End: 08-23-2022 [facility] Start: 07-26-2022 [facility] Start: 06-14-2022 [facility] Start: 06-14-2022 Injection of spinal epidural space DH Epidural Transforaminal (Right) [facility] Start: 06-14-2022 End: 06-14-2022 Admission to same day surgery center Departed Surgical Day Care [facility] Start: 05-20-2022 MRI of lumbar spine with contrast MR lumbar spine wo/w con [facility] Start: 05-20-2022 End: 05-20-2022 Patient encounter procedure Departed Clinical [facility] [place] Bacteria identified in Unspecified specimen by Aerobe culture [facility] Bacteria identified in Unspecified specimen by Anaerobe culture [facility] Bilirubin measurement [facility] nds [facility] Body weight [facility] Calcium carbonate/To karie in [facility] Calcium hydrogen phosphate dihydrate/Total in [facility] Calcium oxalate monohydrate/Total in [facility] Calcium phosphate level [facility] Calculus analysis wi th calculus photography [Interpretation] in [facility] Calculus analysis, qualitative [facility] Calculus analysis, quantitative [facility] Calculus analysis, quantitative, infrared spectroscopy [facility] Cellular material [Mass/mass] of Stone by Estimated [facility] Cholesterol [Mass/volume] in Serum or Plasma [facility] Cystine measurement [facility] Determination of calculus chemical composition [facility] Evaluation procedure [facility] Glucose measurement estimated from glycated hemoglobin [facility] Hemoglobin A1c measurement [facility] Hydroxyapatite [Ener gy Difference] in 24 hour Urine [facility] Laboratory data interpretation [facility] Newberyite/Total in [facility] Patient Education [facility] Work Phone: Patient referral [facility] Work Phone: Specimen source subj ect [Type] [facility] Triamterene measurement [facility] Triple phosphate/Tot al in [facility] XR Knee - left 3 Views [facility] Immunizations Immunization Date Immunization Notes [facility] Provider [facility] tetanus toxoid, reduced diphtheria toxoid, and acellular pertussis vaccine, adsorbed MD Jeff Terrell Work Phone: [facility] NEGATED: Highlighted row has not occurred!06-22-2022 SARS-CoV-2 mRNA (tozinameran 5y-11y) vaccine Patito Sweet [facility] Payers Date Payer Category Payer Medicare (Managed Care) ABIG[employer] Juan EDICARE ADVANTAGE Member Subscriber Plan / Payer (Effective 2024-Present) Name: Lima Loyd Relation to Subscriber: Self Name: Lima Loyd Payer ID: [id number] (NAIC) Type: Not on file Address: [place] [id number] 2022 Private Health Insurance [id number] 2022 Unknown [id number] 2.16.840.1.235689.19 1965 Unknown [id number] 2.16.840.1.555154.3.579.2 .593 1965 Unknown [id number] 2.16.840.1.838570.3.579.2 .593 1965 Unknown [id number] 2.16.840.1.614197.3.579.2 .593 1963 Unknown [id number] 2.16.840.1.046109.3.579.2 .593 1963 Unknown [id number] 2.16.840.1.817642.3.579.2 .593 1963 Unknown [id number] 2.16.840.1.138922.3.579.2 .593 1963 Unknown [id number] 2.16.840.1.710641.3.579.2 .593 1963 Unknown [id number] 2.16.840.1.102660.3.579.2 .593 1963 Unknown [id number] 2.16.840.1.366065.3.579.2 .593 1963 Unknown [id number] 2.16.840.1.869507.3.579.2 .593 1963 Unknown [id number] 2.16.840.1.496396.3.579.2 .593 1963 Unknown [id number] 2.16.840.1.492961.3.579.2 .1965 Unknown [id number] 2.16.840.1.373942.3.579.2 .1963 Unknown [id number] 2.16.840.1.359587.3.579.2 .1963 Unknown [id number] 2.16.840.1.399775.3.579.2 .1963 Unknown [id number] 2.16.840.1.076657.3.579.2 .1963 Unknown [id number] 2.16.840.1.116939.3.579.2 .1963 Unknown [id number] 2.16.840.1.565032.3.579.2 .1963 Unknown [id number] 2.16.840.1.970131.3.579.2 .1963 Unknown [id number] 2.16.840.1.262469.3.579.2 .1963 Unknown [id number] 2.16.840.1.625225.3.579.2 .1258 1963 Unknown [id number] 2.16.840.1.693270.3.579.2 .1258 1963 Unknown [id number] 2.16.840.1.759401.3.579.2 .1258 1963 Unknown [id number] 2.16.840.1.294619.3.579.2 .1258 1965 Unknown [id number] 2.16.840.1.837007.3.579.2 .1259 1961 Medicare [id number] 2.16.840.1.230676.19 1959 Medicare [id number] 2.16.840.1.853644.19 1959 Medicare [id number] 1959 Private Health Insurance [facility] [id number] 1961 Self-pay [id number] Medicaid Medicaid [id number] Unknown [place] BC/BS [id number] Worker's Compensation Care Works [facility] [id number] Social History Date Type Detail Facility Unknown if ever smoked [employer] [facility] [employer] Other Start: 08-05-2024 End: 09-27-2024 Sex Assigned At [employer] Other Start: 03-04-2021 End: 08-05-2024 Tobacco smoking status Never smoked tobacco (finding) [facility] Work Phone: Start: 1965 Sex Assigned At Male F [facility] Tobacco smoking status Never [facility] Tobacco smoking status NHIS Tobacco smoking consumption unknown [facility] Start: 08-04-2024 Gender identity Identifies as male gender (finding) [facility] Start: 08-04-2024 Sexual orientation Heterosexual (fin ding) [facility] Start: 08-05-2024 Tobacco use and exposure Smokeless tobacco non-user [facility] Start: 08-05-2024 End: 09-27-2024 Alcoholic beverage intake Defer [facility] Start: 08-05-2024 End: 09-27-2024 History of Social function [facility] NEGATED: Highlighted rowStart: NINF History of tobacco use Passive smoker [facility] Medical Equipment Procedure Code Equipment Code Equipment Origin al Text Equipment Identifier Dates Cystoscopy, with ureteral calculus manipulation and stent placement Polymeric ureteral stent [id number] FDA Start: 09-30-2022 Cystoscopy, with ureteral calculus manipulation and stent placement Polymeric ureteral stent ()[id number] FDA Start: 11-29-2022 Arthroplasty, knee, total, minimally invasive Orthopaedic cement, non-medicated ()[id number] FDA Start: 02-02-2021 Arthroplasty, knee, total, minimally invasive Polyethylene patella prosthesis ()[id number] FDA Start: 02-02-2021 Arthroplasty, knee, total, minimally invasive Uncoated knee tibia prosthesis, metallic ()[id number] FDA Start: 02-02-2021 Arthroplasty, knee, total, minimally invasive Coated knee femur prosthesis ()[id number] FDA Start: 02-02-2021 Arthroplasty, knee, total, minimally invasive Coated knee femur prosthesis ()[id number] FDA Start: 02-02-2021 Arthroplasty, knee, total, minimally invasive Tibial insert ()[id number] FDA Start: 02-02-2021 Arthroplasty, knee, total, minimally invasive Tibial insert ()[id number] FDA Start: 02-02-2021 Arthroplasty, knee, total, minimally invasive Uncoated knee tibia prosthesis, metallic ()[id number] FDA Start: 02-02-2021 Arthroplasty, knee, total, minimally invasive Polyethylene patella prosthesis ()[id number] FDA Start: 02-02-2021 CYSTOSCOPY Patito Pruitt 09/26/23 Unknown Pelvis and Genitalia FDA Start: 09-26-2023 CYSTPatito Malhotra 09/26/23 Unknown Pelvis and Genitalia FDA Start: 09-26-2023 CYSTPatito Malhotra 09/26/23 Unknown Pelvis and Genitalia FDA Start: 09-26-2023 CYSTOSCOPY Patito Pruitt 09/26/23 Unknown Pelvis and Genitalia FDA Start: 09-26-2023 CYSTOSCOPY Patito Pruitt 09/26/23 Unknown Pelvis and Genitalia FDA Start: 09-26-2023 CYSTOSCOPY Patito Pruitt 09/26/23 Unknown Pelvis and Genitalia FDA Start: 09-26-2023 Goals Date Patient Goal Desired Activity /State Functional Status Date Assessment Result Facility 05-09-2024 Functional Status N/A [facility] 11-03-2023 Functional Status N/A [facility] 09-25-2023 Functional Status No [facility] 08-18-2023 Functional Status N/A [facility] 07-13-2023 Functional Status N/A [facility] 05-31-2023 Functional Status N/A [facility] 01-12-2023 Functional Status N/A [facility] 12-21-2022 Functional Status N/A [facility] 11-04-2022 Functional Status N/A [facility] 09-21-2022 Functional Status N/A [facility] 08-10-2022 Functional Status N/A [facility] 07-12-2022 Functional Status N/A [facility] 06-23-2022 Functional Status N/A [facility] 06-22-2022 Functional Status N/A [facility] 05-26-2022 Functional Status N/A [facility] Clinical Notes 02-02-2022 to 09-27-2024 Venkat Paredes DPM - 09/27/2024 9:00 AM López Paredes DPM - 09/20/2024 9:10 AM López Hussain Tyson, DPM - 09/11/2024 2:10 PM López Hussain Tyson, ERROL - 08/26/2024 9:30 AM EST Note Date & Type Note Facility 09-27-2024 History of Presen t illness Narrative Patient: Lima Loyd : 1965 PCP: Jeff Terrell MD SUBJECTIVE This is a 59 y.o. male that presents today s/p permanent nail avulsion with nail avulsion to the left and right 1-5 digits. Pt states that they have been following all post op instructions and have been taking antibiotic as prescribed. Pt denies n/f/v/c and has some pain at post op site. Pt states minimal drainage from the postop site. Pt presents today for postoperative follow up. Patient has history of left and right plantar fasciitis in the past. Patient states he has some pain to the area and wears inserts Patient also presents today for complaints of lateral right foot pain for the past few days and states it is up to an 8/10. He denies any trauma to the area but states it is painful with ambulation and some improvement with wider shoes Allergies: Allergies Allergen Reactions Amoxicillin Hives Clavulanic Acid Hives Morphine Itching and Hives Other Reaction(s): Itching, mental problems, hives all in morphine family Amoxicillin-Pot Clavulanate Hives, Itching, Rash and Swelling listed as allergy on 05/26/22pt states he has no issues with this medicaiton Past Medical History: Past Medical History: Diagnosis Date Hypertension ([facility] Medications: Current Outpatient Medications: cyclobenzaprine (Flexeril) 10 [...] antibiotic OBJECTIVE LE EXAM: DERM: Negative erythema, negative serous drainage from the left and right 1-5 digits VASC: Palpable pedal pulses bilaterally NEURO: Gross sensation intact to bilateral feet ORTHO: Minimal pain on palpation to the left and right 1-10 toes. Positive pain on palpation to right and left plantar fascial bands Positive pain on palpation to the right peroneal tendon complex particularly near attachment of the 5th metatarsal base region 20 degrees inversion and 10 degrees eversion STJ b/l. Ankle ROM less than 10 degrees b/l. ASSESSMENT s/p permanent nail avulsion to the left 1-10 toenails 1. Paronychia, toe, left 2. Paronychia, toe, right 3. Plantar fasciitis 4. Peroneal tendinitis, right 5. Contracture of right ankle PLAN Recommended to apply ice to affected areas for 20 minutes, twice daily. Ice should not be applied directly to skin. Prescription for Medrol pack and Ultram today Pt dispensed pneumatic CAM walker ([id number]) today to maintain 90 degree foot to ankle position. Pt informed to only remove walker when at rest or bathing. ABN signed and in chart for device if warranted. The boot was assembled and adjusted liner and straps and pneumatically inflated for proper custom fitting by Venkat Paredes DPM and staff. A verbal order was given for dispensing of device. The patient is ambulatory and may benefit functionally from this device. It may be used for the following conditions as noted per medical diagnosis. Venkat Paredes DPM documented in this encounter [facility] 09-20-2024 History of Presen t illness Narrative Patient: Lima Loyd : 1965 PCP: Jeff Terrell MD SUBJECTIVE This is a 59 y.o. male that presents today 19 d s/p permanent nail avulsion with nail avulsion to the left and right 1-5 digits. Pt states that they have been following all post op instructions and have been taking antibiotic as prescribed. Pt denies n/f/v/c and has some pain at post op site. Pt states minimal drainage from the postop site. Pt presents today for postoperative follow up. Patient has history of left and right plantar fasciitis in the past. Patient states he has some pain to the area and wears inserts Allergies: Allergies Allergen Reactions Amoxicillin Hives Clavulanic [...] to the left and right 1-10 toes. Positive pain on palpation to right and left plantar fascial bands ASSESSMENT 21 d s/p permanent nail avulsion to the left 1-10 toenails 1. Paronychia, toe, left 2. Paronychia, toe, right 3. Pain due to onychomycosis of toenails of both feet 4. Plantar fasciitis PLAN Patient apply Betadine daily to the wounds Continue with orthotics and may discuss possible injections on follow up Venkat Paredes DPM documented in this encounter [facility] 09-11-2024 History of Presen t illness Narrative [...] History: Past Medical History: Diagnosis Date Hypertension ([facility] Medications: Current Outpatient Medications: cyclobenzaprine (Flexeril) 10 [...] Venkat Paredes DPM documented in this encounter [facility] 08-26-2024 History of Presen [...] History: Past Medical History: Diagnosis Date Hypertension ([facility]) Medications: Current Outpatient Medications: cyclobenzaprine (Flexeril) 10 [...] risks, alternatives, benefits, post op complications and care home expectations were discussed including but not limited to: infection,bone infection,wound dehiscence hardware failure and irritation,wound dehiscence,delay union/mal union/non union of bone. RSDS,neuroma,duty limitations,DVT/PE, SD,nerve damage, scar, loss of sensation, swelling. Pt [...] Venkat Paredes DPM documented in this encounter [facility] 08-05-2024 History of Presen [...] History: Past Medical History: Diagnosis Date Hypertension ([facility]) Medications: Current Outpatient Medications: cyclobenzaprine (Flexeril) 10 [...] thickness digits 1 through 10 Patient received brjh-cxn-zhuklfk inserts with power steps today and begin wearing daily Patient to continue with oral anti - inflammatories as needed for pain and recommended OTC medications such as tylenol or Ibuprofen Discussed conservative and surgical treatment options for patient today including postoperative time frame and surgical procedure in detail. Patient may continue with conservative treatments including labb-emf-cvtgujt anti-inflammatories and other treatments suggested today. Patient may want to be scheduled for surgical intervention in the near future. Patient has total permanent nail avulsions in the near future with removal of nails had surgery Center and will need preop and have Ultram for postop pain Venkat Paredes DPM documented in this encounter [facility] 05-09-2024 Hospital Discharg e [...] include: ?8 oz (237 mL) of milk, uvwcajx-szefggerqsjo-joonv milk, and calcium-fortifiedfruit juice. Calcium-fortified means that [...] ?Spinach (cooked), rhubarb, beets, sweet potatoes, and Anguillan chard. ?Peanuts. ?Potato chips, kosovan fries, and baked potatoes with skin on. ?Nuts and nut products. ?Chocolate. If you regularly take a diuretic medicine, make sure to eat at least 1 or 2 servings of fruits or vegetables that are high in potassium each day. These include: ?Avocado. ?Banana. ?[place], prune, carrot, or tomato juice. ?Baked potato. [...] magnesium, fish oil, or vitamin B6. Take vqqu-qxj-mbxatmr and prescription medicines only as told by [...] Casseroles. Pizza. Lasagna. Frozen meals. Potato chips. Malawian fries. The items listed above may not [...] provider. Document Revised: 01/12/2023 Document Reviewed: 01/12/2023 [email or web address] Patient Education 2022 [employer]. Follow Up Care 11/03/2023 10:48:01 With:Kee NAVARRO, RENATA Ghotra, URO Address: When: Unknown [facility] [facility] 05-09-2024 Note Patient Education Nephrology Dietary [...] ? 8 oz (237 mL) of milk, pkuvxjn-kpwyavfsiwvt-ytels milk, and calcium-fortifiedfruit juice. Calcium-fortified means that [...] Spinach (cooked), rhubarb, beets, sweet potatoes, and [place]guillan chard. ? Peanuts. ? Potato chips, kosovan fries, and baked potatoes with skin on. ? Nuts and nut products. ? Chocolate. ? If you regularly take a diuretic medicine, make sure to eat at least 1 or 2 servings of fruits or vegetables that are high in potassium each day. These include: ? Avocado. ? Banana. ? Ledgewood, prune, carrot, or tomato juice. ? Baked [...] fish oil, or vitamin B6. ? Take isqr-fmm-yvymsag and prescription medicines only as told by your health care provider. These include suppleme (more content not included)... [facility] 04-29-2024 Hospital Discharg e instructions Ambulatory OrdersReferral to Neurology Time Frame: 04/29/24, Location: None Selected [facility] Work Phone: 11-10-2023 Evaluation note Encounter Date Diagnosis Assessment Notes Oct, Finger mass, right (ICD-10 - R22.31) Oct, Pre-op exam (ICD-10 - Z01.818) [facility] Other 01-19-2024 Hospital Discharge instructions Patient Education [...] urethra. Follow these instructions at home: Take kiuv-nwf-onshpix and prescription medicines only as told by [...] provider. Document Revised: 04/20/2022 Document Reviewed: 04/20/2022 [employer] Patient Education 2022 [employer]. Follow Up Care 09/26/2023 15:07:03 With:Kee NAVARRO, Patito Good URJesse, URO Address: When:Within 6 Month(s) Comments:w/CHANTEL and [facility] 01-10-2024 Evaluation note* Encounter Date Diagnosis [...] anesthesia. Oct, Pre-op exam (ICD-10 - Z01.818) [facility] Other 12-12-2023 Evaluation + Plan noteExtracted from: [...] hrs., # 30 tab(s), Refills(s) 0, Pharmacy: [facility] [id number], 188, cm, 05/31/23 8:37:00 EDT, Height/Lengt... potassium CITRATE 10 mEq ER Tab: 10 mEq, 1 tab(s), Oral, BID, 180 tab(s), Refill(s) 3, [facility] [id number], 188, cm, 08/18/23 10:17:00 EDT, Height/Length Dosing, [...] list: All Problems Anxiety / SNOMED CT 80945947 / Confirmed Arthritis / SNOMED CT 6744718 / Confirmed BPH with urinary obstruction / SNOMED CT 3657078789 / Confirmed Cervical radiculopathy / SNOMED CT 129979817 / Confirmed Depression / SNOMED CT 30866995 / Confirmed ED (erectile dysfunction) / SNOMED CT 8433201673 / Confirmed Gross hematuria / SNOMED CT 006401301 / Confirmed History of prostatitis / SNOMED CT 2273619371 / Confirmed HTN (hypertension) / SNOMED CT 3094020586 / Confirmed Insomnia / SNOMED CT 826443691 / Confirmed Kidney stone / SNOMED CT 084648277 / Confirmed Lumbar radiculopathy / SNOMED CT 841138815 / Confirmed Poor short term memory / SNOMED CT 485045095 / Confirmed Prostatitis / SNOMED CT 71967301 / Confirmed Renal cyst / SNOMED CT 4471553199 / Confirmed Shoulder impingement syndrome / SNOMED CT 488994247 / Confirmed Thoracic spondylosis / SNOMED CT 3011226554 / Confirmed Tobacco use / SNOMED CT 285100662 / Confirmed Tremor / SNOMED CT 29389999 / Confirmed UTI (urinary tract infection) / SNOMED CT 676985092 / Confirmed Venous insufficiency / SNOMED CT 575742346 / Confirmed Resolved: Hematoma / SNOMED CT 8557518307 Canceled: Balanitis / SNOMED CT 63524916 Canceled: Erectile dysfunction / SNOMED CT 7374248742 Canceled: Gross hematuria / SNOMED CT 694375788 Canceled: Lesion of bladder / SNOMED CT 647645457 Canceled: Renal hematoma / SNOMED CT 176312804 Histories Past Medical History: Resolved Hematoma (8711375938): Resolved. Procedure history: Holmium Laser/Lt Stent Exchange ([id number]) on 11/29/2022 at 57 Years. ESWL of kidney (73846438) on 08/23/2022 at 56 Years. Cystoscopy (85667982) on 07/12/2022 at 56 Years. Epidural injection of cervical spine using fluoroscopic guidance (1238072448) on 08/17/2018 at 52 Years. Comments: 06/09/2022 13:10 CHERELLE Jolly RN, Megha C6/[address] Bowles at [facility]. Epidural injection of cervical spine using fluoroscopic guidance ([id number]) on 05/26/2017 at 51 Years. Epidural injection of cervical spine using fluoroscopic guidance (9385310259) on 09/16/2016 at 51 Years. Back- titanium cage L4-L5 (273195385) in 2000 at 36 Years. Comments: 06/23/2022 12:26 CHERELLE Jolly RN, Megha lumbar fusion Total knee replacement ([id number]). bilateral Total knee replacement (7735726179). Social History Social & Psychosocial Habits Alcohol [...] significant abnormalities noted.. ECG interpretation: NSR. Plan [place] [employer] of Anesthesiologists (ASA) physical status classification: Class III. Anesthetic Preoperative Plan: Anesthesia General. Addendum by Miguel Casas DO Ting on D ec2022 10:11 EST Mallampati 3 Future Appointments Appointment Date:11/03/2023 10:15:00 AM Scheduled Provider:Patito Sweet MD Location:[facility] Appointment Type:URO Office Visit [facility]12-12-2023 Hospital Discharge instructions Patient Education 09/26/2023 11:02:55 Post Op Patient Instructions - FT (Custom) (CUSTOM) 09/26/2023 10:47:43 Lue - Urolift Post-Op Instructions (CUSTOM) [facility] [place] [place] Post-Operative Instructions for UroLift After your [...] Up Care 08/18/2023 11:39:29 With:Patito Sweet Address: [address] [place] [address] [phone] Business (1) When: Unknown Comments:Call for followup appointment in 1 month with [facility]12-06-2023 Evaluation note* Encounter Date Diagnosis Assessment Notes [...] in the office today and providing supervision. [facility] Other 11-22-2023 Evaluation note* Encounter Date Diagnosis [...] as documented in the electronic medical record. [facility] Other 11-20-2023 Note [id number] 07-26-2023 Evaluation note* Encounter Date Diagnosis Assessment [...] pinky finger as well as weakness of leather etcher. Physical exam findings have also been discussed. [...] healing. 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 I have [...] mass index [BMI]40.0-44.9, adult (ICD-10 - Z68.41) [facility] Other 09-28-2023 Hospital Discharge instructions Patient Education [...] Follow these instructions at home: Medicines Take ewjs-htx-vhsajls and prescription medicines only as told by [...] important. Where to find more information National [place] of Diabetes and Digestive and Kidney Diseases: [...] depends on the type of prostatitis. Take pblw-tgo-cmilttz and prescription medicines only as told by [...] provider. Document Revised: 11/06/2020 Document Reviewed: 11/06/2020 [employer] Patient Education 2022 [employer]. Follow Up Care 07/13/2023 09:28:59 With:JANINE GARCIA PA-C, URL Address: [address] [place] [address] When: Unknown Comments:follow up with JEFFERY hernandez [facility] 09-21-2023 Evaluation note* Encounter Date Diagnosis Assessment [...] note writ ten by Germain Bowles MA, Technical Sales Director. Edited and approved by Dr. Tomi Leach MD. [facility] Other 09-15-2023 Evaluation note* Encounter Date Diagnosis [...] as documented in the electronic medical record. [facility] Other 08-28-2023 Evaluation note* Encounter Date Diagnosis [...] as documented in the electronic medical record. [facility] Other 08-16-2023 Hospital Discharge instructions Patient Education [...] urethra. Follow these instructions at home: Take fccq-kzn-przbvnh and prescription medicines only as told by [...] provider. Document Revised: 04/20/2022 Document Reviewed: 04/20/2022 [employer] Patient Education 2022 [employer]. Follow Up Care 05/10/2023 14:32:19 With:Kee NAVARRO, RENATA Ghotra, URO Address: When: Unknown Comments:sched Cysto [facility] [place] 06-09-2023 Evaluation note* Encounter Date Diagnosis Assessment [...] as documented in the electronic medical record. [facility] Other 05-25-2023 Hospital Discharge instructions Follow Up Care 03/09/2023 11:30:53 With:Kee NAVARRO, RENATA Ghotra, URO Address: When: Unknown Comments:Sched UroLift [facility] [place] 05-12-2023 Evaluation note* Encounter Date Diagnosis Assessment [...] of pinch strength in approximately 6 weeks, leather etcher strength recovery at about 12 weeks, and [...] poor healing. I have advised against the care home use of narcotic pain medication. I have [...] understands these risks and wishes to proceed. [facility] Other 05-01-2023 Hospital Discharge instructions Additional Instructions [...] medications as prescribed. You may take NSAIDs/Tylenol bfmd-qgt-chucmhw as indicated on the bottle. Follow-up in office as scheduled, approximately one week after surgery. Call the office with any questions or concerns. Dr. Gaurav Higuera [facility] [employer] [place] [id number] [facility] Work Phone: [phone] Evaluation note* Encounter Date Diagnosis Assessment Notes [...] note writ ten by Lakshmi Lorenzo LPN, Technical Sales Director. Edited and approved by Dr. Tomi Leach MD. [facility] Other 04-19-2023 Evaluation note* Encounter Date Diagnosis [...] patient in office today. Prior medical notes [facility] ED and history have been reviewed. At [...] of pinch strength in approximately 6 weeks, leather etcher strength recovery at about 12 weeks, and [...] as documented in the electronic medical record. [facility] Other 04-03-2023 Evaluation + Plan noteExtracted from: Title:EU Local Cysto w/ L Stent Removal - FT Aut hor:Patito Sweet MD Date:01/16/23 Patient: LIMA LOYD Age: 57 years Sex: Male : 1965 Associated Diagnoses: None Author: Patito Sweet MD Procedure Operative Information Details: Date/ Time: 01/16/2023 08:56:00. Pre-Op Dx: Foreign body in bladder ([id number] T19.1XXA, Billing Diagnosis, Medical), Kidney stone (MBT15-PN N20.0, Discharge, Medical). Post-Op Dx: Same. Anesthesia [...] Date:03/09/2023 10:15:00 AM Scheduled Provider:Patito Sweet MD Location:[facility] Appointment Type:URO Office Visit [facility]04-03-2023 Hospital Discharge instructions Patient Education [...] Up Care 01/12/2023 09:39:17 With:Patito Sweet Address: [address] [place] [address] [phone] Business (1) [address], [address] [phone] Business (1) When: Unknown Comments:Office to schedule follow up in 6-8 wks with renal US, KUB and metabolic stone workup [facility]03-08-2023 Hospital Discharge instructions Patient Education 12/21/2022 08:06:14 Kidney Stones, Qtsx-bm-Tfim Kidney Stones Kidney stones are rock-like masses [...] Follow these instructions at home: Medicines Take evba-szv-fyrlqyq and prescription medicines only as told by [...] 03/20/2009 Document Revised: 02/18/2020 Document Reviewed: 02/18/2020 [employer] Patient Education 2019 [employer]View Software. Follow Up Care 11/30/2022 15:07:22 With:Kee NAVARRO, RENATA Ghotra, URO Address: When: Unknown [facility] 02-09-2023 Evaluation note* Encounter Date Diagnosis Assessment [...] I will prescribe a temporary supply of [place] 5-325 up to twice daily as needed. OARRS was processed and reviewed, no discrepencies. Risks and side effects of this medication was discussed in detail with the patient who voiced understanding. Additionally, Flexeril was refilled today. We will follow up with the patient after his upcoming procedure. Nov, Other chronic pain (ICD-10 - G89.29) Nov, Other Above note writ ten by eGrmain Bowles MA, Technical Sales Director. Edited and approved by Dr. Tomi Leach MD. [facility] Other 02-09-2023 Evaluation note* Encounter Date Diagnosis Assessment Notes Treatment Notes Treatment Clinical Notes Nov, Right flank pain (ICD-10 - R10.9) [facility] Other 01-19-2023 Hospital Discharge instructions Patient Education [...] include: ?Spinach. ?Rhubarb. ?Beets. ?Potato chips and kosovan fries. ?Nuts. If you regularly take a diuretic medicine, make sure to eat at least 1 2 fruits or vegetables high in potassium each day. These include: ?Avocado. ?Banana. ?Ledgewood, prune, carrot, or tomato juice. ?Baked potato. [...] Casseroles. Pizza. Lasagna. Frozen meals. Potato chips. Malawian fries. Summary You can reduce your risk [...] 01/27/2012 Document Revised: 01/22/2020 Document Reviewed: 09/12/2017 [employer] Patient Education 2020 [employer]. Follow Up Care 11/03/2022 11:32:52 With:Patito Sweet MD, URL, URO Address: When: Unknown [facility] [place] 01-11-2023 Evaluation + Plan note Diagnostic Tests Pending * Urine Culture 10/26/22 [facility]12-19-2022 Hospital Discharge instructions Follow Up Care 10/03/2022 10:36:41 With:Patito Sweet MD, RENATA, URO Address: When: Unknown [facility] [place] 12-07-2022 Hospital Discharge instructions Patient Education [...] include: ?Spinach. ?Rhubarb. ?Beets. ?Potato chips and kosovan fries. ?Nuts. If you regularly take a diuretic medicine, make sure to eat at least 1 2 fruits or vegetables high in potassium each day. These include: ?Avocado. ?Banana. ?Ledgewood, prune, carrot, or tomato juice. ?Baked potato. [...] Casseroles. Pizza. Lasagna. Frozen meals. Potato chips. Malawian fries. Summary You can reduce your risk [...] 01/27/2012 Document Revised: 01/22/2020 Document Reviewed: 09/12/2017 [employer] Patient Education 2020 Elsevier Inc. Follow Up Care 08/25/2022 10:58:56 With:Kee NAVARRO, RENATA Ghotra, URO Address: When:1 month [facility] [place] 10-31-2022 Evaluation note* Encounter Date Diagnosis Assessment [...] note writ ten by Lakshmi Lorenzo LPN, Technical Sales Director. Edited and approved by Dr. Tomi Leach MD. [facility] Other 10-27-2022 Evaluation note* Encounter Date Diagnosis Assessment Notes Treatment Notes Treatment Clinical Notes Jul, Neck pain (ICD-10 - M54.2) Jul, History of lumbar fusion (ICD-10 - Z98.1) Jul, Inflammation of right sacroiliac joint (ICD-10 - M46.1) Jul, Spinal stenosis of lumbar region, unspecified whether neurogenic claudication present (ICD-10 - M48.061) This gentleman had a lumbar fusion L4-5 20 years ago in [place]. Over the last year he has been noting buttock and leg discomfort down the back of his legs which may be claudicatory with prolonged standing and walking. He also has clinically a lot of sacroiliac pain on the right. The patient would like to try and avoid surgery as much as possible. Mel chavez will send him for physical therapy. In addition we will send him back to pain management for a sacroiliac injection on the right. We will see how he does and reevaluate him in 4 to 5 weeks. [facility] Other 10-26-2022 Hospital Discharge instructions Patient Education [...] Follow these instructions at home: Medicines Take vrdr-tde-omwjxdz and prescription medicines only as told by [...] 09/29/2001 Document Revised: 09/14/2018 Document Reviewed: 10/18/2017 [employer] Patient Education 2020 [employer]. Follow Up Care 07/28/2022 15:43:12 With:Kee NAVARRO, RENATA Ghotra, URO Address: [address], [place] [phone] When: Unknown [facility] 10-18-2022 Evaluation note* Encounter Date Diagnosis Assessment [...] note writ ten by Lakshmi Lorenzo LPN, Technical Sales Director. Edited and approved by Dr. Tomi Leach MD. [facility] Other 10-06-2022 Evaluation note* Encounter Date Diagnosis Assessment Notes Treatment Notes Treatment Clinical Notes Jul, Other spondylosis with radiculopathy, lumbar region (ICD-10 - M47.26) [facility] Other 09-27-2022 Hospital Discharge instructions Patient Education [...] including vitamins, herbs, eye drops, creams, and gkct-faf-yvilgey medicines. Any problems you or family members [...] provider tells you to take them. ?Taking ucly-dlj-qpulrgu medicines, vitamins, herbs, and supplements. Follow instructions [...] Follow these instructions at home: Medicines Take sfox-rkg-otsypxt and prescription medicines only as told by [...] 09/29/2001 Document Revised: 09/24/2019 Document Reviewed: 09/24/2019 [employer] Patient Education 2020 [employer]. Follow Up Care 06/22/2022 13:16:22 With:Kee NAVARRO, Patito M., URL, URO Address: [address] [place] [address]- [phone] When:Within 4 Week(s) Comments:w/ CT w/o contrast [facility] [place] 09-12-2022 Evaluation note* Encounter Date Diagnosis [...] not wish for this to be a care home prescription. OARRS was processed and reviewed, no discrepencies. He signed an opioid contract with us today in office. Anatomy of spine discussed in detail with patient in regards to patients condition. Jun, Other low back pain (ICD-10 - M54.59) Jun, Other chronic pain (ICD-10 - G89.29) Jun, Other Above note writ ten by Germain Bowles MA, Technical Sales Director. Edited and approved by Dr. Tomi Leach MD. [facility] Other 09-07-2022 Hospital Discharge instructions Patient Education 06/22/2022 10:48:00 Kidney Stones, Vewj-jh-Rotg Kidney Stones Kidney stones are rock-like masses [...] Follow these instructions at home: Medicines Take rdph-szw-xqansse and prescription medicines only as told by [...] 03/20/2009 Document Revised: 02/18/2020 Document Reviewed: 02/18/2020 [employer] Patient Education 2020 [employer]. Follow Up Care 06/09/2022 14:30:01 With:Kee NAVARRO, RENATA Ghotra, URO Address: When: Unknown [facility] [place] 07-25-2022 Evaluation note* Encounter Date Diagnosis Assessment [...] refer to Anton Leach for possible injections. [facility] Other 06-01-2022 Evaluation note* Encounter Date Diagnosis [...] pain of left hip (ICD-10 - M25.552) [facility] Other 05-04-2022 Evaluation note* Encounter Date Diagnosis [...] injection to be done at same time. [facility] Other 04-20-2022 Evaluation note* Encounter Date Diagnosis [...] Jan, Hip dysplasia, congenital (ICD-10 - Q65.89) 20 Apr, 2022 Primary osteoarthritis of right hip (ICD-10 - [...] (BMI 35.0-39.9 without comorbidity) (ICD-10 - E66.9) [facility] Other Evaluation + Plan note Future Appointments Appointment Date:06/23/2022 12:00:00 PM Scheduled Provider:[facility] App[facility]ments Appointment Date:06/23/2022 12:00:00 PM Scheduled Provider:Ronak Rao MD Location[facility] [place] Appointment Type:Pain Management - Follow Up (FT) Appointment Date:07/12/2022 08:30:00 AM Scheduled Provider:Patito Sweet MD Location:[facility] Appointment Type:URO Procedure 15 min [facility] [place] evaluation + Plan note Future Appointments Appointment Date:07/12/2022 08:30:00 AM Scheduled Provider:Patito Sweet MD Location:[facility] [place] Appointment Type:URO [facility] App[facility]ments Appointment Date:07/18/2022 02:00:00 PM Scheduled Provider: Location:.[facility] Appointment Type:MRI Spine (FT) Appointment Date:07/29/2022 10:00:00 AM Scheduled Provider:Jennifer Kauffman PA-C Location[facility] Appointment Type:Pain Management - Follow Up (FT) Appointment Date:08/10/2022 10:00:00 AM Scheduled Provider:Patito Sweet MD Location:[facility] Appointment Type:URO Office Visit Future Scheduled Tests Radiology* MRI Spine Thoracic w/o Contrast 07/18/[address] [facility] Evaluation + Plan note Future Appointments Appointment Date:07/18/2022 02:00:00 PM Scheduled Provider: Location:.[facility] Appointment Type:MRI Spine (FT) Appointment Date:07/29/2022 10:00:00 AM Scheduled Provider:Jennifer Kauffman PA-C Location:[facility] Appointment Type:Pain Management - Follow Up (FT) Appointment Date:08/10/2022 10:00:00 AM Scheduled Provider:Patito Sweet MD Location:[facility] Appointment Type:URO Office Visit Diagnostic Tests Pending * Urine Cytology ([facility]) 07/14/22 Future Scheduled Tests Radiology* MRI Spine Thoracic w/o Contrast 07/18/[address] [facility] Evaluation + Plan note Future Appointments Appointment Date:07/29/2022 10:00:00 AM Scheduled Provider:Jennifer Kauffman PA-C Location:[facility] Appointment Type:Pain Management - Follow Up (FT) Appointment Date:08/10/2022 10:00:00 AM Scheduled Provider:Patito Sweet MD Location:[facility] Appointment Type:URO [facility] Future Appointments Appointment Date:11/02/2022 09:30:00 AM Scheduled Provider:Patito Sweet MD Location:[facility] Appointment Type:URO Office Visit Diagnostic Tests Pending * Hemoglobin and Hematocrit 09/21/22 [facility] evaluation + Plan note Future Appointments Appointment Date:11/02/2022 09:30:00 AM Scheduled Provider:Patito Sweet MD Location:[facility] Appointment Type:URO Office Visit Diagnostic Tests Pending * Urine Culture 09/21/[facility] Future Appointments Appointment Date:11/02/2022 01:20:00 PM Scheduled Provider:Lima GUTIÉRREZ MD Location:[facility] Appointment Type:[place] [address] Diagnostic Tests Pending * Urine Culture 10/21/[address] [facility] evaluation + Plan note Future Appointments Appointment Date:11/07/2022 10:00:00 AM Scheduled Provider: Location:[facility] Appointment Type:URO Nurse Visit [facility] evaluation + Plan note Future Appointments Appointment Date:11/11/2022 01:00:00 PM Scheduled Provider: Location:[facility] Appointment Type:URO Nurse Visit [facility] evaluation + Plan note Future Appointments Appointment Date:08/18/2023 10:00:00 AM Scheduled Provider:Patito Sweet MD Location:[facility] Appointment Type:URO Office Visit [facility] evaluation + Plan note Future Appointments Appointment Date:09/12/2023 07:45:00 AM Scheduled Provider: Location:[facility] Appointment Type:Surgery CALL PAT FT Appointment Date:09/26/2023 09:30:00 AM Scheduled Provider: Location:[facility] Appointment Type:Surgery FT Diagnostic Tests Pending * Basic Metabolic Panel 08/11/23 [facility] evaluation + Plan note Future Appointments Appointment Date:05/09/2024 10:00:00 AM Scheduled Provider:Patito Sweet MD Location:[facility] Appointment Type:URO Office Visit Diagnostic Tests Pending * Basic Metabolic Panel 11/03/[address] [facility] evaluation + Plan note Future Appointments Appointment Date:11/08/2024 11:00:00 AM Scheduled Provider:Patito Sweet MD Location:[facility] Appointment Type:URO Office Visit [facility] Evaluation noteNo InformationNort SMATOOS Other evaluation noteNo assessment information available [facility] Work Phone: evaluation note* Diagnosis Onset Date Resolution Status Left carpal tunnel syndrome acute [facility] Work Phone: evaluation note* Diagnosis Onset Date Resolution Status Cubital tunnel syndrome acut e Left lateral epicondylitis a cute Other specified postprocedural states acute [facility] Work Phone: evaluation note* Diagnosis Onset Date Resolution Status Cubital tunnel syndrome acut e Left lateral epicondylitis a cute Other specified postprocedural states acute Mass of finger acute Other specified postprocedural states acute Right hand pain acute Trigger finger, right middle finger acute [facility] Work Phone: evaluation note* Diagnosis Onset Date Resolution Status Cubital tunnel syndrome acut e Left lateral epicondylitis a cute Other specified postprocedural states acute Mass of finger acute Other specified postprocedural states acute Right hand pain acute Trigger finger, right middle finger acute Mass of finger acute Other specified postprocedural states acute Trigger finger, right middle finger acute [facility] Work Phone: evaluation note* Diagnosis [...] Neuropathy acute Sacroiliitis, not elsewhere classified acute [facility] Work Phone: Evaluation note* Diagnosis Onset Date Resolution Status Mass of finger acute Other specified postprocedural states acute Trigger finger, right middle finger acute Cervical arthritis acute Chronic pain acute Neuropathy acute Sacroiliitis, not elsewhere classified acute [facility] Work Phone: Evaluation note* Diagnosis Onset Date Resolution Status Mass of finger acute Other specified postprocedural states acute Trigger finger, right middle finger acute Cervical arthritis acute Chronic pain acute Neuropathy acute Sacroiliitis, not elsewhere classified acute Primary osteoarthritis of left knee acute Primary osteoarthritis of right knee acute S/P total knee arthroplasty acute [facility] Work Phone: Evaluation note* Diagnosis [...] acute Tendinitis of left quadriceps tendon acute [facility] Work Phone: evaluation note* Diagnosis Onset Date Resolution Status Primary osteoarthritis of left knee acute Primary osteoarthritis of right knee acute S/P total knee arthroplasty acute Neuropathy acute Primary osteoarthritis of left knee acute Primary osteoarthritis of right knee acute S/P total knee arthroplasty acute Tendinitis of left quadriceps tendon acute [facility] Work Phone: Evaluation note* Diagnosis Onset [...] Neuropathy acute Sacroiliitis, not elsewhere classified acute [facility] Work Phone: Evaluation note* Diagnosis [...] acute Tendinitis of left quadriceps tendon acute [facility] Work Phone: Evaluation note* Diagnosis Pain due to onychomycosis of toenails of both feet- Primary Plantar fasciitis Plantar fascial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
== END 2024-10-03 06:53 | disposition home or self-care (01) ==
LOC: NM 06:52
PROVIDERS: PCP Family Medicine; Visit Provider Family Medicine
DX: E04.1 Nontoxic single thyroid nodule (principal)
CPT/HCPCS: 78014; A9516

== ENCOUNTER 2025-08-05 09:55 | Outpatient (OUT) | payer MEDICARE, SELFPAY ==
--- OUTSIDE RECORDS SUMMARY | 2025-08-05 10:02 | XMS_ITS | Clinical Summary ---
Author Organization [facility] Address [address] [place] [address] Care Team Providers Care Cigarette Roller Name Role Phone Jeff Whitehead MD Primary Care Provider [phone] Allergies Active AllergyReactionsCriticalityNoted DtvqFplnclgbFzgmpmgdqroOtieg34/28/2024 Amoxicillin-Pot ClavulanateHives,Itching,Rash,AksdmklpSma73/10/2017 listed as allergy on 05/26/22pt states he has no issues with this medicaiton Clavulanic FvykOxzyi10/28/2024MorphineItching,Hives02/22/2017 Other Reaction(s): Itching, mental problems, hives all in morphine family Medications MedicationSigDispense QuantityRefillsLast FilledStart DateEnd DateStatus cyclobenzaprine (Flexeril) 10 MG tablet 07/18/2024ctive gabapentin (Neurontin) 600 MG tablet 1 tablet Orally three times daily for 30 days10/30/2023ctive irbesartan (Avapro) 300 MG tablet 06/23/2024ctive tadalafil (Cialis) 20 MG tablet Take 20 mg by mouth05/09/2024ctive temazepam (Restoril) 30 MG capsule 12/02/2023ctive methylPREDNISolone (Medrol Dospak) 4 MG tablets Indications:Plantar fasciitisFollow schedule on MEDROL PACK package instructions to be used as directed 21 tablet 09/27/2024ctive metroNIDAZOLE (Metrocream) 0.75 % cream Indications:Other rosaceaApply thin layer to face, once daily, 30 day supply 45 g 1105Active Active Problems No known active problems Family History Medical HistoryRelationNameCommentsMelanomaNeg HxRelationNameStatusComments FatherDeceasedMotherDeceased Social History Tobacco UseTypesPacks/DayYears UsedDateSmoking Tobacco: NeverPassive Smoke Exposure: NeverSmokeless Tobacco: Never Tobacco Cessation:Counseling Given: Yes Alcohol UseStandard Drinks/WeekCommentsDefer0 (1 standard drink = 0.6 oz pure alcohol)Sex and Gender InformationValueDate RecordedSex Assigned at BirthMale 08/04/2024 7:36 PM EDTLegal DrsQnbj6405/01/2024 12:56 PM EDTGender IdentityMale 08/04/2024 7:36 PM EDTSexual WvshzjrmpwsNhgddwuh50/20/2024 7:36 PM EDT Last Filed Vital Signs Vital SignReadingTime TakenCommentsBlood Zmzzuobn885/80110/26/2023 9:24 AM EST Wshxy169308/26/2024 9:24 AM ESTTemperature--Respiratory Frbv906210/25/2024 8:38 AM ESTOxygen Saturation--Inhaled Oxygen Concentration--Wlutad448 kg (302 lb) 10/25/2024 8:38 AM XEXXysbll097 cm (6' 2 )10/25/2024 8:38 AM ESTBody Mass Index 38.7701 8:38 AM EST Plan of Treatment DateTypeDepartmentCare Team (Latest Contact Info)Vjrjzmrrini01/20/2026 9:00 AM EDTOffice Visit [facility] [address] [place] [address] Bouchra Santiago PA [address] [place] [address] Insurance * Guarantor: Carlito Green AAccount TypeRelation to PatientDate of BirthPhone Billing AddressPersonal/RkkrykFwkj1965 [id number] [address] Care Teams Team MemberRelationshipSpecialtyStart DateEnd Jeff Whitehead MD PCP - GeneralFami Jlxctjon98/21/24
--- OUTSIDE RECORDS SUMMARY | 2025-08-05 10:02 | XMS_ITS | Patient Health Record ---
Author Organization [facility] in [place] Address [address] [place] [address] Care Team Providers Care End Touching Machine Operator Name Role Phone Julián Terrell Primary Care Provider Ivette Lucia Unavailable [phone] Allergies Allergen (clinical drug ingredient) Drug/Non Drug Allergy documented on EMR Reaction Allergy Type Onset Date Status amoxicillin / clavulanate augmentin (uncoded) Unknown A llergy Activemorphinemorphine (uncoded)UnknownAllergyActiveBee StingswellingAllergy Active Results Component Value Reference Range Notes CBC AUTO DIFF Reviewed date:08/07/2024 06:35:48 PM Interpretation: Performing Lab: Notes/Report: [facility] , White Blood Count 8.2 4.0-11.0 10 3/uL Red Blood Count5.344.70-6.10 10 6/zJNdqeiogmgo22.814.0-18.0 g/vYEvspmuskaf07.1 42.0-54.0 %Mean Corpuscular Jwxlyw98.880.0-94.0 fLMean Corpuscular Hemoglobin 25.825.9-34.0 pgMean Corpuscular HGB Conc32.829.9-35.2 g/dLRed Cell Distribution Width14.111.0-15.0 %Platelet Bgokq126130-611 10 3/uLMean Platelet Volume9.09.5- 13.5 fLNeutrophils Percent Auto58.643.0-75.0 %Lymphocytes Percent Auto27.820.5- 60.0 %Monocytes Percent Auto9.41.7-12.0 %Eosinophils Percent Auto2.60.9-7.0 % Basophils Percent Auto0.70.2-2.0 %Immature Granulocytes Pct Auto0.90.0-0.5 % Neutrophils Absolute Auto4.81.4-6.5 10 3/uLLymphocytes Absolute Auto2.31.2-3.8 10 3/uLMonocytes Absolute Auto0.80.3-0.8 10 3/uLEosinophils Absolute Auto0.20.0- 0.7 10 3/uLBasophils Absolute Auto0.10.0-0.1 10 3/uLImmature Granulocytes Abs Auto0.070.00-0.03 10 3/uLPerforming Lab:see note - [facility] LB PROF 14(COMP METB) Reviewed date:08/07/2024 06:35:48 PM Interpretation: Performing Lab: Notes/Report: [facility] ,Mlttdb007201-017 mmol/LPotassium4.03.5-5.1 mmol/DLpvoluli20435-513 mmol/LCarbon Gjypqze29.521.0-32.0 mmol/LAnion Gap12.5Npwviqn98003-906 mg/dLBlood Urea Nitrogen9.07.0-18.0 mg/dLCreatinine1.360.70-1.30 mg/dLEstimated GFR ( Gretel>60>=60 mL/min/1.73m 2Estimated GFR (Non- Ame53>=60 mL/min/1.73m 2 BUN Creatinine Ratio6.3Wpppfic4.88.5-10.1 mg/dLBilirubin Total0.40.2-1.0 mg/dL Aspartate Amino Hprrcjileqt3606-94 U/LAlanine Ouoqjeygsrbufbdu0507-28 U/L Alkaline Npntwyysswl6610-101 U/LTotal Protein7.16.4-8.2 g/dLAlbumin Level3.53.4- 5.0 g/dLGlobulin3.6Albumin Globulin Ratio1.0Performing Lab:see noteML - [facility] LBUS chest Reviewed date:09/15/2024 12:26:35 PM Interpretation: Performing Lab: Notes/Report: Source Facility: [facility]-[address] [place] [address] [place] [address] Ultrasound Report Signed Patient: LIMA LOYD MR#: [id number] : 1965 Acct:[id number] Age/Sex: 59 / M ADM Date: 09/13/24 Loc: US Attending Dr: Marc Terrell M.D. Ordering Physician: Marc Terrell M.D. Date of Service: 09/13/24 Procedure(s): US chest Accession Number(s): [id number] cc: Marc Terrell M.D. [place] [address] Patient Name: LIMA LOYD MRN: [id number] date: 1965 Sex: M Assigned Patient Location: US Current Patient Location: Accession/Order Number: [id number] Exam Date: 09/13/2024 14:00 Report Date: 09/14/2024 10:02 At the request of: MARC TERRELL Procedure: US chest EXAM: US chest HISTORY: Mediastinal mass COMPARISON: CT chest 09/02/2024 TECHNIQUE: Percutaneous ultrasound evaluation. FINDINGS: Posterior to the upper sternum is a 5.0 x 2.6 x 3.6 cm heterogeneous mass without significant vascularity. US/US chest IMPRESSION: 1. Limited ultrasound evaluation due to location of mass posterior to the sternum. 2. Heterogeneous mass posterior to the sternum which appears to be separate from the thyroid gland. No significant detectable vascularity. 3. Etiology of the mass is uncertain. Consider a nuclear medicine thyroid scan to see if this does represent ectopic thyroid tissue. Electronically authenticated by: CHAVO DECKER Date: 09/14/2024 10:02 Dictated By: Chavo Decker M.D. Signed By: 09/14/24 1004 DD/ 1002 TD/TT: Brush Machine Setter:CT chest wo homero Reviewed date:09/03/2024 08:13:43 PM Interpretation: Performing Lab: Notes/Report: Source Facility: [place] [address] [place] [address] CT Scan Report Signed Patient: LIMA LOYD MR#: [id number] : 1965 Acct:[id number] Age/Sex: 59 / M ADM Date: 09/02/24 Loc: CT Attending Dr: IVETTE LUCIA Ordering Physician: IEVTTE LUCIA Date of Service: 09/02/24 Procedure(s): CT chest wo con Accession Number(s): [id number] cc: Marc Terrell M.D. [place] [address] Patient Name: LIMA LOYD MRN: [id number] date: 1965 Sex: M Assigned Patient Location: CT Current Patient Location: Accession/Order Number: [id number] Exam Date: 09/02/2024 14:55 Report Date: 09/03/2024 06:53 At the request of: IVETTE LUCIA Procedure: CT chest wo con EXAMINATION: CT chest wo con HISTORY: Enlarged Lymph Nodes In Armpit COMPARISON: CTA chest 09/14/2021 TECHNIQUE: Axial, Coronal, and Sagittal images were created without the administration of IV contrast material. Dose reduction techniques were achieved by using automated exposure control and/or adjustment of mA and/or kV according to patient size and/or use of iterative reconstruction technique. FINDINGS: LUNGS: Chronic calcified granuloma within posterior left lung base. No acute infiltrates or suspicious nodules. PLEURA: No mass, effusion, or pneumothorax. VASCULATURE: No abnormality. HENRIETTA: Calcified lymph nodes suggestive of chronic granulomatous disease. MEDIASTINUM: Anterior upper mediastinal heterogeneous mass 4.6 x 3.7 x 2.8 cm. This is inferior to the thyroid gland and appears to be separate from the thyroid gland. No mediastinal adenopathy. CARDIAC: No enlargement, pericardial thickening, or pericardial effusion. Coronary Artery calcifications: Coronary calcifications are absent. AORTA: No aneurysm or dissection. CHEST WALL: No mass or axillary adenopathy BONES: No bone lesion or fracture. LIMITED ABDOMEN: No suspicious findings. Limited images of the upper abdomen. OTHER: Negative. CT/CT chest wo con IMPRESSION: 1. No lymphadenopathy or suspicious findings within the right or left axilla. 2. Known upper anterior mediastinal heterogeneous mass of uncertain etiology which is increased slightly in size. Electronically authenticated by: HCAVO DECKER Date: 09/03/2024 06:53 Dictated By: Chavo Decker M.D. Signed By: 09/03/24 0656 DD/ TD/TT: Brush Machine Setter: extremity nonvascular LT Reviewed date:08/12/2024 09:35:41 PM Interpretation: Performing Lab: Notes/Report: Source Facility: [place] [address] Ultrasound Report Signed Patient: LIMA LOYD MR#: [id number] : 1965 Acct:[id number] Age/Sex: 58 / M ADM Date: 08/09/24 Loc: US Attending Dr: Marc Terrell M.D. Ordering Physician: Marc Terrell M.D. Date of Service: 08/09/24 Procedure(s): US extremity nonvascular LT Accession Number(s): [id number] cc: Marc Terrell M.D. [place] [address] Patient Name: LIMA LOYD MRN: [id number] date: 1965 Sex: M Assigned Patient Location: Current Patient Location: Accession/Order Number: [id number] Exam Date: 08/09/2024 15:05 Report Date: 08/10/2024 11:48 At the request of: MARC TERRELL Procedure: US extremity nonvascular LT EXAM: US extremity nonvascular LT HISTORY: Lymphadenopathy. COMPARISON: None. TECHNIQUE: Vital-scale and color Doppler imaging was utilized. FINDINGS: Several lymph nodes were seen within the axillary region. The largest of which measures 5.7 x 1.6 x 3.[address] scan for further evaluation. US/US extremity nonvascular LT IMPRESSION: Probable lymphadenopathy within the axillary region. Recommend CT. Electronically authenticated by: Gloria FONTAINE Date: 08/10/2024 11:48 Dictated By: Gloria Fontaine M.D. Signed By: 08/10/24 1151 DD/ 1148 TD/TT: Brush Machine Setter:NM thyroid w uptake Reviewed date:12/08/2024 09:20:56 AM Interpretation: Performing Lab: Notes/Report: Source Facility: [place] [address] Nuclear Medicine Report Signed Patient: LIMA LOYD MR#: [id number] : 1965 Acct:[id number] Age/Sex: 59 / M ADM Date: 10/03/24 Loc: NM Attending Dr: Marc Terrell M.D. Ordering Physician: Marc Terrell M.D. Date of Service: 10/03/24 Procedure(s): NM thyroid w uptake Accession Number(s): [id number] cc: Marc Terrell M.D. [place] [address] Patient Name: LIMA LOYD MRN: [id number] date: 1965 Sex: M Assigned Patient Location: [place] Current Patient Location: [place] Accession/Order Number: [id number] Exam Date: 10/03/2024 06:45 Report Date: 10/04/2024 11:12 At the request of: MARC TERRELL Procedure: NM thyroid w uptake EXAMINATION: NM thyroid w uptake HISTORY: THYROID NODULE COMPARISON: Ultrasound 09/13/2024 TECHNIQUE: After obtaining patient consent, 259.3 uCi I-123 was administered orally. Uptake was evaluated between 4 and 6 hours and at 24 hours. Images were acquired at 4 - 6 hours. FINDINGS: THYROID SCAN: Normal-appearing thyroid gland without enlargement or filling defect. Six-hour uptake 24.9%. 24-hour uptake 37.5% NM/NM thyroid w uptake IMPRESSION: No focal hot or cold nodule Elevated uptake at 6 and 24 hours Electronically authenticated by: MYRA SHAFFER Date: 10/04/2024 11:12 Dictated By: Myra Shaffer M.D. Signed By: 12/05/24 1229 DD/ 1112 TD/TT: Brush Machine Setter: Reason For Referral Diagnosis 1 Screen for colon can cer (Z12.11) Referral Organization [facility] Referring Provider First Name Julián Referring Provider Last Name Ventura Referring Provider Speciality Family Med gina Referred Provider Lima Garcia Referred Provider Specialty General Surg jennifer Referral Priority Routine Medications Medication SIG (Take, Route, Frequency, Duration) Notes Start Date End Date Status Irbesartan 300 MG 1 tablet Orally Once a day; Du ration: 90 days ActiveGabapentin 600 MG2 tablet Orally bid; Duration: 30 days5Active predniSONE 20 MG3 tablets Orally Once a day; Duration: 5 days5Active Temazepam 15 MG1 capsule at bedtime as needed Orally Once a day; Duration: 30 days5ActiveCyclobenzaprine HCl 10 MGTAKE ONE TO TWO TABLETS BY MOUTH EVERY NIGHT AT BEDTIME NEEDED; Duration: 30ActiveCitalopram Hydrobromide 40 MGTAKE ONE TABLET BY MOUTH DAILY; Duration: 90ActivelevoFLOXacin 750 MG1 tablet Orally Once a day; Duration: 10 day(s)5ActivetraMADol HCl 50 MG1 tablet as needed Orally bid; Duration: 30 daysDr. Loving/ CHRISSIE4Active Social History Tobacco Use: Social History Observation Description Date Details (start date - stop date) Never Smoker NA - NA Tobacco Use/Smoking Question Answer Notes Patient is a nonsmoker Alcohol Screen (Audit-C) Question Answer Notes Did you have a drink containing alcohol in the p ast year? Yes How often did you have 6 or more drinks on one occasion in the past year?Never (0 point)How many drinks did you have on a typical day when you were drinking in the past year?1 or 2 drinks (0 point)How often did you have a drink containing alcohol in the past year?Less than monthly (1 point)Elynts4Znehsjubadwznn NegativeAUDIT-C (Standard) Question Answer Notes Did you have a drink containing alcohol in the p ast year? No Tjlivw8GxlavgcamylrlmOfhehwgp Problems Problem Type SNOMED Code ICD Code Onset Dates Problem Status W/U Status Risk Notes Problem Carpal tunnel syndrome (66635435 ) Carpal tunnel syndrome, right upper limb (G56.01) ActiveconfirmedProblemHypertension (27873262)Hypertension (I10)Activeconfirmed ProblemCarpal tunnel syndrome (26842196)Carpal tunnel syndrome on both sides (G56.01)ActiveconfirmedProblemCervical radiculopathy (66521369)Cervical radiculopathy (M54.12)ActiveconfirmedProblemObesity (725080342)Obesity (E66.9) ActiveconfirmedProblemAnxiety (51654278)Anxiety (F41.9)ActiveconfirmedProblem Tremor (11823066)Tremor (R25.1)ActiveconfirmedProblemVertigo (854936078)Vertigo (R42)ActiveconfirmedProblemOsteoarthritis of knee (224175780)Osteoarthritis of knee (M17.9)ActiveconfirmedProblemInsomnia (118243263)Insomnia (G47.00)Active confirmedProblemHypotension (62680923)Hypotension (I95.9)ActiveconfirmedProblem Lumbar radiculopathy (657428514)Lumbar radiculopathy (M54.16)Activeconfirmed ProblemKidney stone (45444559)Kidney stones (N20.0)ActiveconfirmedProblemThyroid nodule (752258853)Thyroid nodule (E04.1)ActiveconfirmedProblemLymphadenopathy (70408174)Lymphadenopathy (R59.1)ActiveconfirmedProblemLaboratory test result abnormal (119284810)Abnormal laboratory test (R89.9)ActiveconfirmedProblemThrush (29987946)Thrush (B37.0)ActiveconfirmedProblemOsteoarthritis of lumbar spine (6469539225)Osteoarthritis of lumbar spine (M47.816)ActiveconfirmedProblem Erectile dysfunction (disorder) (156178969)Impotence (N52.9)Activeconfirmed ProblemChronic venous insufficiency (78836958)Chronic venous insufficiency (I87.2)ActiveconfirmedProblemThoracic facet syndrome (386287606)Thoracic facet syndrome (M53.84)ActiveconfirmedProblemWhiplash injury (22890777)Whiplash injury (S13.4XXA)ActiveconfirmedProblemMediastinal mass (66728094)Mediastinal mass (J98.59)ActiveconfirmedProblemPoor short-term memory (210604580)Poor short-term memory (R41.3)ActiveconfirmedProblemDepression (259841408)Depression (F32.A) Activeconfirmed Vital Signs Temperature 98.3 degrees Fahrenheit 11/22/2024 Qkbaochc88 %11/22/2024lood pressure mm Hg05/19/20258102Crlsqv26 in 05/19/2025lood pressure plcldpmu041 mm Hg05/19/20251940Dfinfz298.2 lbs11/22/2024MI 39.31 kg/m211/22/2024 Encounters Encounter Location Date Provider Diagnosis [facility] [address] [facility] [place] [address] 11/22/2024 Julián Hoy Acute bronchitis, unspecified organism J20.9 [facility] [address] [facility] [place] [address] 05/19/2025 Julián Hoy Hypertension I10 [facility] [address] [facility] [place] [address] 08/07/2024 Julián Hoy Lymphadenopathy R59. 1 [facility] [address] [facility] [place] [address] 03/18/2025 Julián Hoy [facility] [facility] [place] [address] 03/18/2025[facility] [facility] [place] [address]/12/2024Doug HoyAcute bronchitis, unspecified organism [facility]20.9[facility] [facility] [place] [address]/02/2025 Julián HoyAcute bronchitis, unspecified organism J20.9[facility] [facility] [place] [address]/Doug [facility] [facility] [place] [address]/07/2025 Julián HoyScreen for colon cancer Z12.11[facility] [facility] [place] [address]/Doug [facility] [place] [address]/Doug [facility] [place] [address]/ Julián HoyAbnormal laboratory test R89.9[facility] [place] [address]/12/2024Doug [facility] [place] [address]/04/2025Doug HoyAcute bronchitis, unspecified organism J20.9[facility] [place] [address]/06/2025Doug HoyAcute bronchitis, unspecified organism J20.9[facility] [facility] [place] [address]/oug HoyMediastinal mass J98.59[facility] [facility] [place] [address]/4Doug HoyThyroid nodule E04.1BV[facility] [facility] [place] [address]/oug [facility] [facility] [place] [address]/oug [facility] [facility] [place] [address]/05/2025Doug [facility] [place] [address]/07/2025Doug [facility] [place] [address]/ Julián [facility] [place] [address]/4Pamela CramerEnlarged lymph nodes in armpit R59.0[facility] [place] [address]/09/2024 Julián HoyLumbar radiculopathy M54.16 Assessments Encounter Date Diagnosis (ICD Code) Assessment Notes Treatment Notes Treatment Clinical Notes Section Notes 08/07/2024 Lymphadenopathy (ICD-10 - R59.1) 5Acute bronchitis, unspecified organism (ICD-10 - J20.9)Rest and drink more liquids, especially water. You may use a humidifier or vaporizer to help keep the drainage moist. Teae-htu-zniazqq Nasal Saline may help the stuffy and runny nose. Use Ibuprofen and or Tylenol as needed for fever, chills, body aches or pain. Children 5 years old should not be given dnqx-ujh-nyxobnl cough and cold medications such as guaifenesin and dextromethorphan. If you're over age 5, you may try xidz-swu-vjfefns cold medications such as guaifenesin and dextromethorphan, or multi-symptom cold reliever such as Dayquil to help reduce the symptoms. Antibiotics have been prescribed. You should take these until completed and follow the directions. Antibiotics can sometimescause upset stomach, and in rare cases, serious allergic reactions or serious gastrointestinal problems. If you start having severe abdominal pain, severe vomiting, or bloody diarrhea, you should be reevaluated by your physician or urgent care immediately. Follow up with your Primary Care Provider or return to clinic if symptoms do not improve within 3-5 days. If you develop severe symptoms such as shortness of breath, repeated vomiting, coughing up blood, or chest pain you should go to the emergency room or call [phone] (ICD-10 - I10)08/12/2024Enlarged lymph nodes in armpit (ICD-10 - R59.0) 2024Lumbar radiculopathy (ICD-10 - M54.16)09/03/2024Mediastinal mass (ICD- 10 - J98.59)09/15/2024Thyroid nodule (ICD-10 - E04.1)11/14/2024bnormal laboratory test (ICD-10 - R89.9)5Acute bronchitis, unspecified organism (ICD-10 - J20.9)5Acute bronchitis, unspecified organism (ICD-10 - J20.9)5Acute bronchitis, unspecified organism (ICD-10 - J20.9) 5Acute bronchitis, unspecified organism (ICD-10 - J20.9)06/25/2025 Screen for colon cancer (ICD-10 - Z12.11) Plan Of Treatment Pending Test Test Name Order Date CMP (COMPLETE METABOLIC PANEL) 4 HEMOGLOBIN A1C (GLYCO) 11/29/2023 LIPID PANEL (CHOL/TRIG/HDL/LDL) 11/29/19 24 CBC WITH DIFF 11/29/2023 XR Cervical Spine Flex/Ext 10/30/2015 CBC AUTO DIFF 12/18/2023 PROF 14(COMP METB) 12/18/2023 CT CHEST WO CON 08/12/2024 THYROID PANEL (T4/TSH/FREE T3) 5 THYROID PANEL (T4/TSH/FREE T3) 4 US AXILLA LT 08/07/2024 US CHEST INCLUDING MEDIASTINUM 4 NM THYROID UPTAKE AND SCAN 09/15/2024 Insurance Providers Payer Name Payer Address Payer Phone Subscriber Number Group Number Insured Name Patient Relationship to Insured Coverage Start Date Coverage End Date [employer] ADV PLAN [address] [address] [place] [address] [id number] Seth Loyd - patient is the [id number] [birth year][address] OFFICE OF [place], [place] [id number] Seth Loyd - patient is the insuredFORMERLY [facility] [place] [phone] 2015Seth Loyd - patient is the insured Medical (General) History Medical History History ICD Code Carpal tunnel syndrome on both sides G56 .01 Vertigo R42 Thoracic facet syndrome M53.84 Kidney stones N20.0 Lumbar radiculopathy M54.16 Poor short-term memory R41.3 Hypotension I95.9 Insomnia G47.00 Hypertension I10 Osteoarthritis of knee M17.9 Hematuria R31.9 Cervical radiculopathy M54.12 Umbilical hernia K42.9 Chronic venous insufficiency I87.2 Impotence N52.9 Tremor R25.1 Anxiety F41.9 Depression F32.A Osteoarthritis of lumbar spine M47.816 Surgical History Surgery Date(Month/Year) lung and thyroid biopsy 11/09 Colonoscopy- Dr. Garcia 07/10/2015 Excision soft tissue mass from right fin lila 10/30/2023 left ulna entrapement 2022 Left Carpal tunnel release- Elbow cortis one Inj Kidney stone procedures, multipleFusion L4-Y2Lhmnf Carpal Tunnel Qxfyalp20/2023 Knee replacement- eljjtxpuePILYCXKSRMI6476QXNFKTCGVHFJI,UNDER 12YRS Hospitalization History Reason Date(Month/Year) see above
--- OUTSIDE RECORDS SUMMARY | 2025-08-05 10:02 | XMS_ITS | Clinical Summary ---
Author Organization [employer] tem Address [id number] [place] [address] Care Team Providers Care Crackling Press Operator Name Role Phone Jeff Whitehead MD Primary Care Provider +- Allergies Active AllergyReactionsCriticalityNoted DateCommentsAmoxicillin-Pot Clavulanate Itching,Enbymzmb21/10/3806IleuunhcYdmiabv97/10/2017Oxycodone-Acetaminophen Giayjtn2502/22/20173615Hkodndmb94/27/2017 Medications MedicationSigDispense QuantityRefillsLast FilledStart DateEnd DateStatus citalopram (CeleXA) 40 mg tablet Take 40 mg by mouth daily.Active diclofenac (VOLTAREN) 50 mg EC tablet Take 50 mg by mouth 2 (two) times a day as needed.Active acetaminophen (TYLENOL) 500 mg tablet Take 500 mg by mouth as needed for pain.Active lisinopril (PRINIVIL,ZESTRIL) 20 mg tablet Take 20 mg by mouth daily.Active gabapentin (GRALISE) 600 mg tablet extended release 24 hr Indications:Brachial neuritisTake 3 tablets (1,800 mg total) by mouth nightly. 30 day supply. 90 tablet Active baclofen (LIORESAL) 10 mg tablet Indications:Brachial neuritisTake 1 tablet (10 mg total) by mouth 2 (two) times a day. 60 tablet 5006/11/2019Active Active Problems ProblemNoted DateDiagnosed DateRadiculopathy, cervical pewbly2702/22/2017 Family History Medical HistoryRelationNameCommentsDiabetesBrotherCancerFatherDepressionMother DiabetesSisterRelationNameStatusCommentsBrotherAliveFatherAliveMotherDeceased SisterDeceased Social History Tobacco UseTypesPacks/DayYears UsedDateSmoking Tobacco: NeverSmokeless Tobacco: NeverAlcohol UseStandard Drinks/WeekCommentsYes2 (1 standard drink = 0.6 oz pure alcohol)drinks beer ocasionallyChildcareAnswerDate RecordedChildcareUnknown 03/27/2019EmploymentAnswerDate HhoytplzIzpsvxgxewHjncqin95/12/2019Purpose - Life AnswerDate RecordedPurpose and direction in yhuwFfykhgr96/11/2021Sex and Gender InformationValueDate RecordedSex Assigned at BirthNot on fileLegal SexMale 05/21/2015 11:42 AM EDTGender IdentityNot on fileSexual OrientationNot on file Last Filed Vital Signs Vital SignReadingTime TakenCommentsBlood Tnrrtzlt262/9209/20/2018 12:26 PM EST Tslud846409/20/2018 12:26 PM GSZTntaklwrgij08.8 ??C (98.2 ??F)08/17/2018 10:56 AM EDTRespiratory Hdpt703310/17/2017 11:37 AM EDTOxygen Ruoyaalyrn50%08/17/2018 11:37 AM EDTInhaled Oxygen Concentration--Obgxah402.9 kg (337 lb)09/20/2018 12:26 PM LBXCggkxx686 cm (6' 2 )03/15/2018 2:53 PM EDTBody Mass Index43.27003/15/2018 2:53 PM EDT Plan of Treatment Health MaintenanceDue DateLast DoneCommentsDepression Jkoqsfvcu99/12/1975Tobacco Ocecuktne16/12/1975Adult BMI Kqhomimjx43/12/1981DTaP,Tdap and Td Vaccines (1 - Tdap)1982Zoster (Shingles) Vaccine (1 of 2)2013Influenza Vaccine 06/16/2025 Medical Devices ImplantedTypeAreaManufacturerDevice IdentifierShelf Expiration DateModel / Serial / LotFusion HardwareDescription:L Fusion L4/5 Insurance * Guarantor: Carlito Greencomary TypeRelation to PatientDate of BirthPhone Billing AddressWorkers [id number] [facility] [address] [place] [address] MemberSubscriberPlan / Payer (Effective 2016-Present)Name:Carlito Green Relation to Subscriber:SelfName:Carlito Green Payer ID:[id number] (NAIC) Type:Not on file Address: [address] [place] [phone] Care Teams Team MemberRelationshipSpecialtyStart DateEnd Jeff Whitehead MD PCP - General04/13/17
--- OUTSIDE RECORDS SUMMARY | 2025-08-05 10:02 | XMS_ITS | Clinical Summary ---
Author Organization [facility] Address [address] [place] [address] Care Team Providers Care Investigator Narcotics Name Role Phone Jeff Whitehead MD Primary Care Provider [phone] Allergies Active AllergyReactionsCriticalityNoted DateCommentsAmoxicillin-Pot Clavulanate Hives,Itching,Rash,MxnvsdhxHzd76/10/2017 listed as allergy on 05/26/22pt states he has no issues with this medicaiton Bee Venom Protein (Honey Bee)Hives10/31/2024MorphineHives,Itching,Unknown 02/22/2017 Other Reaction(s): Itching, mental problems, hives all in morphine family all in morphine family Medications MedicationSigDispense QuantityRefillsLast FilledStart DateEnd DateStatus baclofen (Lioresal) 20 mg tablet Take 2 tablets by mouth in the evening.10/01/2019Active citalopram (CeleXA) 40 mg tablet Take 1 tablet by mouth in the morning.10/01/2019Active cyclobenzaprine (Flexeril) 10 mg tablet Take 10 mg by mouth if needed in the morning and at bedtime.07/18/2024ctive gabapentin (Neurontin) 600 mg tablet 1 tablet Orally three times daily for 30 days05/26/2022ctive irbesartan (Avapro) 300 mg tablet 05/26/2022ctive potassium citrate CR (Urocit-K-10) 10 mEq ER tablet Take 10 mEq by mouth with breakfast and with evening meal.08/18/2023ctive tadalafil (Cialis) 20 mg tablet Take 20 mg by mouth if needed each day for erectile dysfunction.05/09/2024ctive traMADol (Ultram) 50 mg tablet Take 50 mg by mouth if needed.08/18/2023ctive temazepam (Restoril) 7.5 mg capsule Take 7.5 mg by mouth if needed at bedtime for sleep.Active Family History Medical HistoryRelationNameCommentsDiabetesBrotherLeukemiaFatherDiabetesMother DiabetesSisterRelationNameStatusCommentsBrotherFatherDeceasedMotherSister Social History Tobacco UseTypesPacks/DayYears UsedDateSmoking Tobacco: NeverSmokeless Tobacco: Never Tobacco Cessation:Counseling Given: Not Answered Alcohol UseStandard Drinks/WeekCommentsNever0 (1 standard drink = 0.6 oz pure alcohol)PHQ-2AnswerDate RecordedPatient Health Questionnaire-2 Guuvr608 Sex and Gender InformationValueDate RecordedSex Assigned at BirthNot on file Legal QahTggn4910/23/2024 3:22 PM ESTGender IdentityNot on fileSexual Orientation Not on file Last Filed Vital Signs Vital SignReadingTime TakenCommentsBlood Gxnasbxe311/8311/12/2024 2:35 PM EST Dlygj530211/12/2024 2:35 PM GTJEjcvacpuwen45.7 ??C (98.1 ??F)11/12/2024 1:20 PM ESTRespiratory Zhhx241611/12/2024 2:35 PM ESTOxygen Uykauhfirb05%11/12/2024 2:35 PM ESTInhaled Oxygen Concentration--Zrhzej345 kg (308 lb 3.3 oz)11/12/2024 10:04 AM HDYHfnttv578 cm (6' 2 )11/12/2024 10:04 AM ESTBody Mass Index39.57011/12/2024 10:04 AM EST Plan of Treatment Health MaintenanceDue DateLast DoneCommentsCT Fyvdndoyxdxm1963Colonoscopy 1963Colorectal Cancer Ndaxpmtfc1963FIT-DNA1963FIT1963 FOBT1963Medicare Annual Wellness (AWV)1965 0265Ofvpaacysyvub1963 Zoster Vaccines (1 of 2)2013COVID-19 Vaccine (2023- season) 2025Influenza Vaccine (#1)2025Depression Hgbxhqyrs81/23/2026 11/07/2024dult Dvdnkby23HIB VaccinesAged OutNo longer eligible based on patient's age to complete this topicHPV VaccinesAged OutNo longer eligible based on patient's age to complete this topicIPV VaccinesAged OutNo longer eligible based on patient's age to complete this topicMeningococcal B VaccineAged OutNo longer eligible based on patient's age to complete this topicMeningococcal VaccineAged OutNo longer eligible based on patient's age to complete this topicPneumococcal Vaccine: Pediatrics (0 to 5 Years) and At-Risk Patients (6 to 64 Years)Aged OutNo longer eligible based on patient's age to complete this topicRotavirus VaccinesAged OutNo longer eligible based on patient's age to complete this topic Insurance Care Teams Team MemberRelationshipSpecialtyStart DateEnd Jeff Whitehead MD [address] [facility] [address] [address] PCP - General10/25/24
--- OUTSIDE RECORDS SUMMARY | 2025-08-05 10:08 | XMS_ITS | CCD ---
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 Name Role Phone Gaurav Higuera Unavailable Tomi Leach Unavailable Jeff Terrell Primary Care Physician MD Jeff Terrell Primary Care Provider DO Gaurav Higuera A Attending Provider MD Tomi Leach Attending Provider MD Patito Sweet Attending Provider [phone] Ramiro George Unavailable MD Jeff Terrell [...] PATITO M Admitting Unavailable ZIEBER, DR RIVAS [employer] [...] Unavailable LUE ., PATITO M Consulting Unavailable OKAY, DR MYRA Allen Consulting Unavailable HOY ., [...] Care Provider DO Gaurav Higuera Attending Provider Lue, MD Patito M Other Provider MD Jeff Terrell Primary Care Provider MD Tomi Leach Attending Provider [phone] MD Jeff Terrell Primary Care Provider Self, Referral Attending Provider Unavailable DO Davida Gaurav A Attending Provider MD Jeff Terrell Primary Care Provider MD Tomi Leach Attending Provider DO Davida Gaurav A Attending Provider Self, Referral Attending Provider Unavailable CHARLI Black Emergency Provider MD Patito Sweet Attending Provider [phone] Janine Maynard Unavailable Melissa Castellano Unavailable MD Jeff Terrell Primary Care Provider MD Melissa Castellano Attending Provider MD Jeff Terrell Primary Care Provider DO Gaurav Higuera A Attending Provider [phone] MD Jeff Terrell Primary Care Provider MD Melissa Castellano Attending Provider MD Patito Sweet Attending Provider DO Clay Higuerain A Attending Provider [phone] MD Jeff Terrell Primary Care Provider MD Jeff Terrell Primary Care Provider MD Jeff Terrell Primary Care Provider DO Gaurav Higuera A Attending Provider MD Patito Sweet Attending Provider MD Jeff Terrell Primary Care Provider DO Davida Gaurav A Attending Provider DO Davida Gaurav A Attending Provider Jeff Terrell MD Primary Care Provider [phone] MD Jeff Terrell Primary Care Provider DO Gaurav Higuera Attending Provider NICOLAS Paredes Attending Provider Jeff Terrell MD Primary Care Provider Venkat Paredes DPM Attending Provider [phone] Patito Sweet MD Attending Provider OMBALLI, MOHAMED Referring Unavailable OMBALLI, MOHAMED Attending Unavailable OMBALLI, MOHAMED Referring Unavailable OMBALLI, MOHAMED Attending Unavailable OMBALLI, MOHAMED Attending Unavailable NORTHEILINDSEY MartinezLEE Attending Unavailable BROWN, VENKAT A Attending Unavailable BROWN, VENKAT A Attending Unavailable BROWN, VENKAT A Attending Unavailable BROWN, VENKAT A Attending Unavailable BROWN, VENKAT A Attending Unavailable BROWN, VENKAT A Attending Unavailable BROWN, VENKAT A Attending Unavailable Jeff Terrell MD Primary Care Provider Patito Sweet MD Attending Provider Jeff Terrell M Primary Care Unavailable Lue, Patito M Attending Unavailable Lue, Patito M Admitting Unavailable Hoy, Jeff M Primary Care Unavailable Brown, Venkat A Attending Unavailable Brown, Venkat A Admitting Unavailable Clay Higuerain A Attending Unavailable Clay Higuerain A Admitting Unavailable Hoy, Jeff M Primary Care Unavailable Hozan, Jeff M Primary Care Unavailable Lue, Patito M Attending Unavailable Lue, Patito M Admitting Unavailable Lue, Patito M. Attending Unavailable Patito Sweet. Attending Unavailable Susy CABALLERO Attending Unavailable Jeff Terrell Referring Unavailable Lima GUTIÉRREZ Attending Unavailable Patito Sweet Attending Unavailable Allergies Allergy ClassificationReported Allergen(s)Allergy TypeDate of OnsetReaction(s) Facility (20 sources)Amoxicillin / Clavulanate; Translations: [amoxicillin-clavulanate] Drug Allergyhives, Unknown (qualifier value), Weal (disorder)[employer] Other Comment on above:listed as allergy on 05/26/22pt states he has no issues with this medicaiton (20 sources)Morphine; Translations: [morphine]Drug Xuolots62-12-8896orrld, Unknown (qualifier value), PoliglotaBoston Regional Medical CenterTsavo Media Other Comment on above:all in morphine family (20 sources)traMADolDrug Gbdphvy00-96-3030Wzmcips, [facility] (20 sources)Bee/Wasp/Ant venom; Translations: [Bee Stings]Drug wxdwylj97-16-1381 [facility] (20 sources)AmoxicillinDrug Tyecfvc61-20-8358JhakhJiabrfhffHolzer HospitalComment on above:Pt states had amoxicillin recently with no problems (20 sources)ClavulanateDrug Xqwjxog45-01-2658BfmvsFzroppudmHolzer Hospital (10 sources)oxyCODONEDrug Uikxryl10-01-8607NwynlnbsmRimvqftqpK[facility]tering Health [facility] (14 sources)Ciprofloxacin; Translations: [ciprofloxacin]Drug AllergyUnknown (qualifier value)[facility] (11 sources)Amoxicillin / Clavulanate; Translations: [Augmentin]Drug Allergy 15-35-8984bcgapYalLake County [facility] (2 sources)Acetaminophen / oxyCODONEDrug Ggyzxtq98-62-3313Ruo [facility] Repository (1 source)bee venomDrug allergy (disorder)[facility] (2 sources)MorphineDrug Uovhzwa93-32-9601Vmv [facility] Repository (1 source)traMADolDrug Kguwwnm00-05-7359Rmh [facility] Repository (2 sources)MorphineDrug AllergyHCA [facility] [employer] Other (20 sources)Amoxicillin-Pot Clavulanate; Translations: [AMOXICILLIN-POT CLAVULANATE]Drug Ybytoyjstdh71-69-3598Zuxkw, Itching, Rash, SwellingNOMS Healthcare (1 source)BEE VENOM PROTEIN (HONEY BEE); Translations: [BEE VENOM PROTEIN (HONEY BEE)]Propensity to adverse reactions to drug (disorder)77-18-6642HkphddqzdsMercy Health [facility] Medications Current Medications MedicationDrug Class(es)DatesSig (Normalized)Sig (Original)acetaminophen 500 mg oral tablet (20 sources)Start: 11-25-0053weap 2 tablets by mouth every six hours as needed for painacetaminophen 500 mg Tab 1,000 mg = 2 tab(s), Oral, q6hr, PRN as needed for pain, Refills(s) 0 Start Date: 03/04/21 Status: OrderedStart: 03-04-2021 acetaminophen 500 mg Tab Refills(s) 0 Start Date: 03/04/21 Status: OrderedStart: 02-12-2021 End: 70-05-8583bnkg 1 tablet by mouth every six hours as needed for pain Acetaminophen 500 mg Tablet Discontinued 500 MG PO Q6H as needed for Pain 120 February 12, 2021 12:00am August 12, 2022 1:40pmStart: 02-05-2021 End: 91-29-9806gfhh 2 tablets by mouth every eight hours as needed for pain Acetaminophen 500 mg Tablet Discontinued 1000 MG PO Q8H as needed for Fever Or Pain February 05, 2021 12:00am February 12, 2021 8:59amStart: 02-05-2021 End: 68-49-0440tlgy 1000 mg by mouth every eight hoursAcetaminophen Discontinued 1000 MG PO Q8H February 04, 2021 11:00pm February 12, 2021 7:59amALPRAZolam 0.25 mg oral tablet (20 sources)BenzodiazepineStart: 92-22-9490Pbuhj 0.25 mg Tab 0.25 mg = 1 tab(s), Oral, PRN for anxiety Start Date: 09/26/23 Status: Ordered Repeat number: 1 Start: 09-30-2022 End: 77-75-3204uboc 1 tablet by mouth once daily at bedtimeAlprazolam 0.25 mg tablet Discontinued 0.25 MG PO Daily at bedtime September 30, 2022 1:00am November 29, 2022 10:09amStart: 27-44-4395jpfm 0.5-1 tablets by mouth three times daily as needed for anxietyalprazolam 0.25 mg Tab 0.5-1 tabs, Oral, TID, PRN as needed for anxiety, Refills(s) 0 Start Date: 09/21/22 Status: Ordered Start: 30-48-0411txlcgbcxtx 0.25 mg Tab 21 tab(s), Refills(s) 0 Start Date: 09/21/22 Status: OrderedXanax Activeamitriptyline hydrochloride 50 mg oral tablet (20 sources)Tricyclic AntidepressantStart: 38-38-8138ssip 1 mg by mouth once daily at bedtimeamitriptyline 50 mg Tab mg tab(s), Oral, Once a day (at bedtime), Refills(s) 0 Start Date: 11/03/23 Status: Ordered Repeat number: 1 celecoxib 200 mg oral capsule (20 sources)Nonsteroidal Anti-inflammatory DrugStart: 57-17-3947murt 1 capsule by mouth twice daily at mealtimeStart: 05-09-2022 End: 19-17-4726smpb 1 capsule by mouth twice dailyCelecoxib 200 mg capsule Discontinued 200 MG PO Twice daily July 26, 2022 12:00am November 29, 2022 10:10amcitalopram 40 mg oral tablet (20 sources)Serotonin Reuptake InhibitorStart: 09-28-2017 End: 23-82-6694fqzf 1 tablet by mouth once dailycitalopram 40 mg Tab 40 mg = 1 tab(s), Oral, Daily, Refills(s) 0 Start Date: 05/26/22 Status: Ordered Repeat number: 1take 0.5 tablet by mouth every twenty-four hoursCeleXA 40 MG 0.5 tablet Orally Once a day Activeclindamycin 300 mg oral capsule (2 sources)Lincosamide AntibacterialStart: 63-85-4891Xhqpdzuseqa HCl 300 MG 2 capsules Orally 1 hour before dental procedure for 1 day May, Active cyclobenzaprine hydrochloride 10 mg oral tablet (20 sources)Muscle RelaxantStart: 65-18-4707fjhn 2 tablets by mouth at bedtime as needed for muscle spasmscyclobenzaprine 10 mg Tab 20 mg = 2 tab(s), Oral, Bedtime, PRN for spasm, Refills(s) 0 Start Date: 07/08/25 Status: Ordered Repeat number: 1Start: 24-36-8296byhjmzyequxincf (Flexeril) 10 MG tablet 07/18/2024 ActiveStart: 70-60-8540yhzz 0.5-1 tablets by mouth every eight hours Cyclobenzaprine HCl 10 MG 1/2 to 1 tablet Orally Every 8 hours for 14 days Jan, ActiveStart: 08-12-2022 End: 32-40-4661nbps 10-20 mg by mouth once daily at bedtime as needed for pain Cyclobenzaprine 10 mg tablet Discontinued 10 - 20 MG PO Daily at bedtime as needed for Pain 2021 12:00am August 15, 2023 9:37amStart: 50-20-0977kqhb 1 tablet by mouth twice daily as neededCyclobenzaprine HCl 10 MG 1 tablet as needed Orally up to twice daily as needed for 30 day(s) Nov, Not-Taking/PRNStart: 02-02-2021 End: 58-69-7999Kztzwmgqlgcsllk 5 mg Tablet Discontinued 5 MG PO As Directed as needed for Muscle Spasm January 12:00am February 05, 2021 6:50pm fluconazole 100 mg oral tablet (6 sources)Azole AntifungalStart: 61-67-1676kyggfjnihee 100 mg Tab Refills(s) 0 Start Date: 11/03/23 Status: Ordered Repeat number: 1Start: 10-21-2022 End: 08-03-3832crmastnvsiz 200 mg Tab 200 mg = 1 tab(s), Oral, Daily, Discontinue Cipro for ear infection while taking Fluconazole. Can restart Cipro once Fluconazole course is completed., X 14 day(s), # 14 tab(s),Refills(s) 0, Pharmacy: [facility] [id number], 188, , 09/21/22 8:23:0... Start Date: 10/21/22 Stop Date: 11/04/22 Status: Orderedfurosemide 40 mg oral tablet (10 sources)Loop DiureticStart: 14-40-1513dwiuywlqtm 40 mg Tab Refills(s) 0 Start Date: 10/21/22 Status: Orderedgabapentin 600 mg oral tablet (20 sources)Anti-epileptic AgentStart: 70-85-1369twkp 1 tablet by mouth three times dailyStart: 06-14-2022 End: 46-46-6374faor 1 capsule by mouth twice dailyGabapentin 300 mg capsule Discontinued 300 MG PO Twice daily June 14, 2022 8:26am October 8:50amStart: 98-89-1567irbm 600 mg by mouth twice dailyGabapentin Active 600 MG PO Twice daily June 14, 2022 8:26amStart: 43-77-5540rzkp 600 mg by mouth twice dailyGabapentin Active 600 MG PO Twice daily June 14, 2022 8:26am Start: 95-38-2794qsbl 2 tablets by mouth twice dailygabapentin 600 mg Tab 1,200 mg = 2 tab(s), Oral, BID, Refills(s) 0 Start Date: 05/26/22 Status: Ordered Repeat number: 1Start: 62-87-0227sznl 1 tablet by mouth twice dailygabapentin 600 mg Tab 600 mg = 1 tab(s), Oral, BID, Refills(s) 0 Start Date: 05/26/22 Status: Ordered Repeat number: 1Start: 02-05-2021 End: 65-80-4949tgaf 1 capsule by mouth three times dailyGabapentin 300 mg Capsule Discontinued 300 MG PO Three times daily February 12, 2021 12:00am June 14, 2022 8:26amStart: 09-28-2017 End: 23-93-1923qcmc 2 tablets by mouth at bedtimeGabapentin 600 mg Tablet Discontinued 1200 MG PO Bedtime September 28, 2017 1:00am February 05, 2021 5:19pmStart: 09-28-2017 End: 83-16-7327rkfo 1200 mg by mouth at bedtimeGabapentin Discontinued 1200 MG PO Bedtime September 28, 2017 12:00am February 05, 2021 4:19pmhyoscyamine sulfate 0.125 mg oral tablet (8 sources)Start: 49-64-1568ninw 1 tablet by mouth four times daily as needed for painLevsin 0.125 mg SL Tab 0.125 mg = 1 tab(s), Oral, QID, PRN abdominal pain, # 90 tab(s), Refills(s) 2, Pharmacy: [facility] [id number], 188, cm, 12/21/22 7:44:00 EST, Height/Length Dosing, 132, kg,12/21/22 7:44:00 EST, Weight Dosing Start Date: 12/21/22 Status: OrderedStart: 89-55-4110zbhz 1 tablet by mouth four times daily as needed for painLevsin 0.125 mg SL Tab 0.125 mg = 1 tab(s), Oral, QID, PRN abdominal pain, Refills(s) 0 Start Date:10/05/22 Status: Ordered ibuprofen 800 mg oral tablet (5 sources)Nonsteroidal Anti-inflammatory DrugStart: 34-80-7349hkgz 1 tablet by mouth three times daily at mealtime as neededIbuprofen 800 MG 1 tablet with food or milk as needed Orally Three times a day for 30 days Apr, Active irbesartan 300 mg oral tablet (20 sources)Angiotensin 2 Receptor BlockerStart: 02-02-2021 End: 33-58-6505mxzq 1 tablet by mouth once dailyirbesartan 300 mg Tab 300 mg = 1 tab(s), Oral, Daily, Refills(s) 0 Start Date: 05/26/22 Status: Ordered Repeat number: 1Iron Chews (12 sources)Start: 36-75-8420fkbq 1 mg by mouth once dailyIron Chews mg, Oral, Daily, Refills(s) 0 Start Date: 09/21/22 Status: OrderedlevoFLOXacin 500 mg oral tablet (5 sources)Quinolone AntimicrobialStart: 09-26-2023 End: 89-54-7911coto 1 tablet by mouth every twenty-four hoursLevaquin 500 mg Tab 500 mg = 1 tab(s), Oral, q24hr, X 3 day(s), # 3 tab(s), Refills(s) 0, Pharmacy: [facility] [id number], 187, cm, 09/26/23 7:40:00 EST, Height/Length Dosing, 138.9, kg, 09/26/23 7:40:00 EST, Weight Dosing Start Date: 09/26/23 Stop Date: 09/29/23 Status: OrderedStart: 11-04-2022 End: 46-47-7183cwrv 1 tablet by mouth once dailyLevaquin 500 mg Tab 500 mg = 1 tab(s), Oral, Daily, X 14 day(s), # 14 tab(s), Refills(s) 0, Pharmacy: [facility] [id number], 188, cm, 11/04/22 9:22:00 EST, Height/Length Dosing, 132, kg, 11/04/22 9:22:00 EST, Weight Dosing Start Date: 11/04/22 Stop Date: 11/18/22 Status: OrderedlevoFLOXacin 750 MG (Prior Auth#:[id number]) Oral for 10 Active lidocaine 0.05 mg/mg medicated patch (6 sources)Antiarrhythmic, Amide Local AnestheticStart: 95-32-8176bmoglvebi Top 5% film Patch 1 patch(es), Topical, Daily, 7 patch(es), Refill(s) 3, apply 12 hours on and 12 hours off daily, [id number], 188, cm, 11/04/22 9:22:00 EST, Height/Length Dosing, 132, kg, 11/04/22 9:22:00 EST, Weight Dosing Start Date: 11/18/22 Status: OrderedStart: 10-21-2022 End: 33-48-1928svqsgtfsz Top 5% film Patch 1 patch(es), Topical, Daily for 7 day(s), 7 patch(es), Refill(s) 0, Apply to affected area for up to 12 hours a day., [facility] [id number], 188, cm, 09/21/22 8:23:00 EST, Height/Length Dosing, 132, kg, 09/21/22 8:23:00 EST, Weight Dosing Start Date: 10/21/22 Stop Date:10/28/22 Status: OrderedmethylPREDNISolone (20 sources)CorticosteroidStart: 93-20-0353yaglzpPEWEXSXyebip (Medrol Dospak) 4 MG tablets Indications: Plantar fasciitis Follow schedule on MEDROL PACK package instructions to be used as directed 21 tablet 09/27/2024 ActiveStart: 04-29-2024 take 1 tablet by mouth onceStart: 06-70-5146Fjsanw 4 MG as directed Orally Oct, ActiveStart: 70-40-0032Twvdhg 4 MG as directed Orally for 6 days Apr, ActivemetroNIDAZOLE 7.5 mg/ml topical cream (1 source)Nitroimidazole AntimicrobialStart: 25-99-6476uwdybPTISCJWS (Metrocream) 0.75 % cream Indications: Other rosacea Apply thin layer to face, once daily, 30 day supply 45 g 11 01/02/2025 ActiveStart: 01-02-2025 metroNIDAZOLE (Metrocream) 0.75 % cream Indications: Other rosacea Apply thin layer to face, once daily, 30 day supply 45 g 11 01/02/2025 Activenaproxen 500 mg oral tablet (20 sources)Nonsteroidal Anti-inflammatory DrugStart: 75-01-4050pzdy 1 tablet by mouth every twelve hours at mealtime as neededStart: 97-82-1145zwxq 1 tablet by mouth every twelve hours at mealtime as neededNaproxen 500 MG 1 tablet with food or milk as needed Orally every 12 hrs for 30 days Oct, ActiveStart: 07-13-2023 End: 87-11-0095pdsp 1 tablet by mouth twice daily at mealtimenaproxen 500 mg Tab 500 mg = 1 tab(s), Oral, BID, Take with food, X 2 week(s), # 28 tab(s), Refills( s) 0, Pharmacy: [facility] [id number], 188, cm, 07/13/23 9:45:00 EDT, Height/Length Dosing, 132,kg, 07/13/23 9:45:00 EDT, Weight Dosing Start Date: 07/13/23 Stop Date: 07/27/23 Status: Orderedoxybutynin chloride 5 mg oral tablet (20 sources)Cholinergic Muscarinic AntagonistStart: 21-93-8533hbhz 1 tablet by mouth three times dailyoxybutynin 5 mg Tab 5 mg = 1 tab(s), Oral, TID, # 30 tab(s), Refills(s) 0, Pharmacy: [facility] [id number], 187, cm, 09/26/23 7:40:00 EST, Height/Length Dosing, 138.9, kg, 09/26/23 7:40:00 EST, Weight Dosing Start Date: 09/26/23 Status: OrderedStart: 11-29-2022 End: 55-37-8422jhqr 1 tablet by mouth twice daily as needed for muscle spasms Oxybutynin Chloride 5 mg tablet Discontinued 5 MG PO Twice daily as needed for bladder spasms November 29, 2022 1:00am August 15, 2023 9:37amStart: 09-30-2022 End: 38-76-0831adxo 1 tablet by mouth three times daily as needed for muscle spasmsOxybutynin Chloride 5 mg tablet Discontinued 5 MG PO Three times daily as needed for bladder peccwc61 September 30, 2022 1:00am November 29, 2022 10:11ampotassium citrate 10 meq extended release oral tablet (8 sources)Start: 03-28-2774mzis 1 tablet by mouth twice dailypotassium CITRATE 10 mEq ER Tab 10 mEq, 1 tab(s), Oral, BID, 180 tab(s), Refill(s) 3, [facility] [id number], 188, cm, 05/09/24 10:10:00 EDT, Height/Length Dosing, 144, kg, 05/09/24 10:10:00 EDT, Weight Dosing Start Date: 09/26/24 Status: Ordered Quantity: 180.0 Unit: tab(s) Repeat number: 4Start: 22-10-5786hawd 1 tablet by mouth twice dailypotassium CITRATE 10 mEq ER Tab 10 mEq, 1 tab(s), Oral, BID, 180 tab(s), Refill(s) 3, [facility] [id number], 188, cm, 08/18/23 10:17:00 EDT, Height/Length Dosing, 132, kg, 08/18/23 10:17:00 EDT, Weight Dosing Start Date: 08/18/23 Status: OrderedStart: 26-41-6085rnyb 1 tablet by mouth twice daily potassium CITRATE 10 mEq ER Tab 10 mEq, 1 tab(s), Oral, BID, 90 tab(s), Refill(s) 0, [facility] [id number], 188, cm, 05/31/23 8:37:00 EDT, Height/Length Dosing, 132, kg, 05/31/23 8:37:00 EDT, Weight Dosing Start Date: 05/31/23 Status: OrderedQUEtiapine 50 mg oral tablet (1 source)Atypical AntipsychoticStart: 35-86-3865kvujqpbvwq 50 mg oral tablet Refills(s) 0 Start Date: 08/18/23 Status: Orderedsulfamethoxazole 800 mg / trimethoprim 160 mg oral tablet (1 source)Dihydrofolate Reductase Inhibitor Antibacterial, Sulfonamide AntimicrobialStart: 07-13-2023 End: 63-70-6453zkap 1 tablet by mouth twice dailyBactrim D.S. 800 mg-160 mg Tab 1 tab(s), Oral, BID for 4 week(s), 56 tab(s), Refill(s) 0, [facility] [id number], 188, cm, 07/13/23 9:45:00 EDT, Height/Length Dosing, 132, kg, 07/13/23 9:45:00 EDT,Weight Dosing Start Date: 07/13/23 Stop Date: 08/10/23 Status: Orderedtemazepam 15 mg oral capsule (20 sources)BenzodiazepineStart: 94-71-7699jlme 1 capsule by mouth once daily at bedtimetemazepam 15 mg Cap 15 mg = 1 cap(s), Oral, Once a day (at bedtime), Refills(s) 0 Start Date: 07/08/25 Status: Ordered Repeat number: 1Start: 05-26-2022 End: 24-75-2809tvtFURau hydrochloride 50 mg oral tablet (20 sources)Opioid AgonistStart: 61-29-1551rruXYDYS 50 mg Tab 50 mg = 1 tab(s), Oral, q8hr, PRN as needed for pain, Take as needed to help with severe pain during stone passage. Not to exceed 400 mg/day., # 9 tab(s), Refills(s) 0, Pharmacy: [facility] [id number], 188, cm, 05/09/25 11:09:00 EDT, Height/Length Dosing, 137.9, kg, 05/09/25 11:09:00 EDT, Weight Dosing Start Date: 05/09/25 Status: Ordered Quantity: 9.0 Unit: tab(s) Repeat number: 1Start: 08-26-2024 End: 03-90-7051llwd 1 tablet by mouth every six hours for paintraMADol (Ultram) 50 MG tablet Indications: Paronychia, toe, left , Paronychia, toe, right Take 1 tablet (50 mg) by mouth every 6 (six) hours if needed for severe pain for up to 5 days 15 tablet 08/26/2024 08/31/2024 ExpiredStart: 02-28-2023 End: 18-32-1443qntn 1 tablet by mouth every eight hours for paintraMADol (Ultram) 50 MG tablet Indications: Peroneal tendinitis, right Take 1 tablet (50 mg) by mouth every 8 (eight) hours if needed for severe pain for up to 5 days 15 tablet 09/27/2024 10/02/2024 ActiveStart: 02-28-2023 End: 26-98-9052paxh 1 tablet by mouth every four hours as needed for pain Tramadol 50 mg tablet Discontinued 50 MG PO Q4H as needed for pain 14 August 29, 2023 1:00am October 30, 2023 8:51amStart: 02-07-2023 End: 85-31-6762mpfo 1 tablet by mouth twice daily as needed for painTramadol 50 mg tablet Discontinued 50 MG PO Twice daily as needed for pain 60 February 02, 2024 8:11am May 20, 2024 9:05amStart: 07-26-2022 End: 47-27-1419Moocvvae 50 mg tablet Discontinued 50 MG PO As Directed as needed for Pain July 26, 2022 12:00am November 29, 2022 10:12amStart: 07-26-2022 End: 36-91-6852Tsfxcrph Discontinued 50 MG PO As Directed July 25, 2022 11:00pm November 29, 2022 9:12amStart: 07-26-2022 End: 70-87-8674izuu 1 tablet by mouth every twenty-four hourstraMADol HCl 50 MG 1 tablet as needed Orally Once a day for 30 days Jul, Not-Taking/PRN Start: 49-22-9108bnkj 1 tablet by mouth every twenty-four hourstraMADol HCl 50 MG 1 tablet as needed Orally Once a day for 30 days Jun, ActiveStart: 52-03-7023vpbj 1 tablet by mouth every twenty-four hourstraMADol HCl 50 MG 1 tablet as needed Orally Once a day February, Not-TakingStart: 02-12-2021 End: 78-75-2208mmir 1 tablet by mouth every four hours as needed for pain Tramadol 50 mg Tablet Discontinued 50 MG PO Q4H as needed for severe pain (scale score 7-10) 40 7 February 12, 2021 12:00am June 14, 2022 8:26amStart: 02-05-2021 End: 46-81-6083zkza 2 tablets by mouth every six hours as needed for pain Tramadol 50 mg Tablet Discontinued 100 MG PO Q6H as needed for Pain February 05, 2021 12:00am February 12, 2021 8:59amStart: 02-05-2021 End: 21-88-3312oxht 100 mg by mouth every six hoursTramadol Discontinued 100 MG PO Q6H February 04, 2021 11:00pm February 12, 2021 7:59am Completed/Discontinued Medications MedicationDrug Class(es)DatesSig (Normalized)Sig (Original)acetaminophen 325 mg / HYDROcodone bitartrate 5 mg oral tablet (20 sources)Opioid AgonistStart: 10-30-2023 End: 71-83-0849zaly 1 tablet by mouth every four to six hours as needed for pain Hydrocodone-Acetaminophen 5-325 mg tablet Discontinued 1 - 2 TAB PO EVERY 4-6 HOURS as needed for pain 30 October 30, 2023 December 04, 2023 9:43am Start: 09-26-2023 End: 79-60-6080pfvz 1 tablet by mouth every six hours for painNorco 325 mg-5 mg oral tablet 1 tab(s), Oral, q6hr for pain for 3 day(s), 12 tab(s), Refill(s) 0, [facility] [id number], 187, cm, 09/26/23 7:40:00 EST, Height/Length Dosing, 138.9, kg, 09/26/23 7:40:00 EST, Weight Dosing Start Date: 09/26/23 Stop Date: 09/29/23 Status: OrderedStart: 04-25-2023 End: 33-51-7588bmla 1 tablet by mouth every four hours as needed for pain Hydrocodone-Acetaminophen 5-325 mg tablet Discontinued 1 TAB PO Q4H as needed for pain 10 April 25, 2023 August 15, 2023 9:37amStart: 11-21-7000jtoj 1 tablet by mouth three times daily as neededHYDROcodone-Acetaminophen 5-325 MG 1 tablet as needed Orally up to three times daily as needed for 7 days Nov, Not-Taking/PRNStart: 39-88-3918falzvlodemrfu-hydrocodone 325 mg-5 mg oral tablet Refill(s) 0 Start Date: 10/21/22 Status: OrderedStart: 09-30-2022 End: 29-09-0686aqpz 1 tablet by mouth every six hours as needed for pain Hydrocodone-Acetaminophen 5-325 mg tablet Discontinued 1 TAB PO Q6H as needed for severe pain 09 17January 30, 2023 February 28, 2023 9:03amStart: 01-12-2018 End: 09-86-6603byxi 1 tablet by mouth every four hours as needed for pain Hydrocodone-Acetaminophen ([place]) 5-325 mg tablet Discontinued 1 TAB PO Q4H as needed for pain January 12, 2018 November 24, 2020 11:16am 1 or 2 p.o. q 4 hours prn painStart: 09-28-2017 End: 94-11-7421otpm 1 tablet by mouth every four to six hours as needed for pain Hydrocodone-Acetaminophen ([place]) 5-325 mg tablet Discontinued 1 TAB PO EVERY 4- 6 HOURS as needed for pain September 28, 2017 November 24, 2020 11:15am ARIPiprazole 5 mg oral tablet (20 sources)Atypical AntipsychoticStart: 09-28-2017 End: 37-34-7299rppp 1 tablet by mouth at bedtimeAripiprazole (Abilify) 5 mg Tablet Discontinued 5 MG PO Bedtime September 28, 2017 1:00am 2020 11:11amaspirin 81 mg delayed release oral tablet (20 sources)Platelet Aggregation Inhibitor, Nonsteroidal Anti-inflammatory Drug Start: 08-12-2022 End: 47-85-3595qfph 1 tablet by mouth once daily at bedtimeAspirin 81 mg tablet,delayed release (DR/EC) Discontinued 81 MG PO Daily at bedtime August 12, 2022 1:38pm November 29, 2022 10:09amStart: 94-39-7512jbshkfm 81 mg Chew Tab 81 mg = 1 tab(s), Chewed, Daily, Refills(s) 0 Start Date: 03/04/21 Status: OrderedStart: 62-25-9145rlarhpd 81 mg Chew Tab Refills(s) 0 Start Date: 03/04/21 Status: OrderedStart: 02-05-2021 End: 80-23-8202hxpp 1 tablet by mouth twice dailyAspirin 81 mg Tablet,Delayed Release (Dr/Ec) Discontinued 81 MG PO Twice daily 40 February 12, 2021 8:58am August 12, 2022 1:40pmbaclofen 20 mg oral tablet (20 sources)gamma-Aminobutyric Acid-ergic AgonistStart: 02-12-2021 End: 43-62-1402tlit 1 tablet by mouth once daily in the morningBaclofen 20 mg Tablet Discontinued 20 MG PO Every morning 30 February 12, 2021 12:00am June 14, 2022 8:25amStart: 11-24-2020 End: 05-45-5507hrsc 2 tablets by mouth once daily at bedtimeBaclofen 20 mg Tablet Discontinued 40 MG PO Daily at bedtime 60 February 12, 2021 12:00am June 14, 2022 8:26amStart: 11-24-2020 End: 37-55-8857hrgs 40 mg by mouth once daily at bedtimeBaclofen Discontinued 40 MG PO Daily at bedtime 60 February 11, 2021 11:00pm June 14, 2022 7:26am Start: 09-28-2017 End: 44-92-0660lvii 2 tablets by mouth once daily in the morningBaclofen 10 mg Tablet Discontinued 20 MG PO Every morning September 28, 2017 1:00am February 12, 2021 8:59amStart: 09-28-2017 End: 16-82-7498mjtp 20 mg by mouth once daily in the morningBaclofen Discontinued 20 MG PO Every morning September 28, 2017 12:00am February 12, 2021 7:59amciprofloxacin 500 mg oral tablet (20 sources)Quinolone AntimicrobialStart: 11-02-2022 End: 80-39-6583bmmc 1 tablet by mouth twice dailyCiprofloxacin Hcl (Cipro) 500 mg tablet Discontinued 500 MG PO Twice daily November 02, 2022 1:00am November 29, 2022 10:10amdiclofenac potassium 50 mg oral tablet (20 sources)Nonsteroidal Anti-inflammatory DrugStart: 09-28-2017 End: 74-61-3207Lxecsynfay Potassium 50 mg Tablet Discontinued September 28, 2017 1:00am January 12, 2018 8:02amStart: 09-28-2017 End: 62-99-6057Qeftctrnva Potassium 50 mg Tablet Discontinued TABLET September 28, 2017 1:00am January 12, 2018 8:02amStart: 09-28-2017 End: 58-20-0920Gdmimagtsk Potassium Discontinued TABLET September 28, 2017 12:00am January 12, 2018 7:02amVoltaren 1 % apply 1-2 grams to affected area Externally BID Activedocusate sodium 100 mg oral capsule (20 sources)Start: 01-28-2021 End: 42-05-4777fzqu 1 capsule by mouth twice daily as needed for constipation Docusate Sodium (Dok) 100 mg Capsule Discontinued 100 MG PO Twice daily as needed for Constipation 60 February 12, 2021 12:00am June 14, 2022 8:26am doxycycline hyclate 100 mg oral tablet (18 sources)Tetracycline-class DrugStart: 10-30-2023 End: 46-15-4057tbff 1 tablet by mouth twice dailyDoxycycline Hyclate 100 mg tablet Discontinued 100 MG PO Twice daily 10 October 30, 2023 1:00amFebruary 2023 3:55pmlisinopril 20 mg oral tablet (20 sources)Angiotensin Converting Enzyme InhibitorStart: 09-28-2017 End: 28-09-6290cnce 2 tablets by mouth once dailyLisinopril 20 mg Tablet Discontinued 40 MG PO Daily September 28, 2017 1:00am February 03, 2021 9:28am Start: 09-28-2017 End: 80-62-0420aghu 40 mg by mouth once dailyLisinopril Discontinued 40 MG PO Daily September 28, 2017 12:00am February 03, 2021 8:28amtake 1 tablet by mouth every twenty-four hoursLisinopril 40 MG 1 tablet Orally Once a day Active meloxicam 15 mg oral tablet (20 sources)Nonsteroidal Anti-inflammatory DrugStart: 02-02-2021 End: 35-22-9156skwz 1 tablet by mouth once dailyMeloxicam 15 mg Tablet Discontinued 15 MG PO Daily February 02, 2021 12:00am February 05, 2021 5:19pm Multivitamin preparation (20 sources)Start: 11-24-2020 End: 26-65-6944mmbo 2 tablets by mouth once daily in the morningMultivitamin Discontinued 2 TAB PO Every morning November 24, 2020 12:00am February 12, 2021 7:59amStart: 11-24-2020 End: 60-97-7264bxrm 2 tablets by mouth once daily in the morningMultivitamin Discontinued 2 TAB PO Every morning November 24, 2020 1:00am February 12, 2021 8:59amMultivitamin Tablet (3 sources)Start: 11-24-2020 End: 79-83-2563bxrv 2 tablets by mouth once daily in the morningMultivitamin Tablet Discontinued 2 TAB PO Every morning November 24, 2020 1:00am February 12, 2021 8:59amStart: 11-24-2020 End: 47-18-5612llfa 2 tablets by mouth once daily in the morningMultivitamin Tablet Discontinued 2 TAB PO Every morning November 24, 2020 12:00am February 1217:59amMultivitamin With Folic Acid (Thera) 400 mcg Tablet (20 sources)Start: 02-12-2021 End: 88-21-3998whvb 2 tablets by mouth once daily in the morningMultivitamin With Folic Acid (Thera) 400 mcg Tablet Discontinued 2 TAB PO Every morning 60 2020 12:00am November 29, 2022 10:11amStart: 02-12-2021 End: 80-78-4160qmiq 2 tablets by mouth once daily in the morningMultivitamin With Folic Acid (Thera) 400 mcg Tablet Discontinued 2 TAB PO Every morning 60 2020 11:00pm November 29, 2022 9:11amStart: 65-01-0526mukw 2 tablets by mouth once daily in the morningMultivitamin With Folic Acid (Thera) 400 mcg Tablet Active 2 TAB PO Every morning 60 January 11:00pmStart: 65-86-9383tbws 2 tablets by mouth once daily in the morningMultivitamin With Folic Acid (Thera) 400 mcg Tablet Active 2 TAB PO Every morning 60 January 12:00amnabumetone 500 mg oral tablet (20 sources)Nonsteroidal Anti-inflammatory DrugStart: 11-24-2020 End: 66-44-9518yxfg 1 tablet by mouth twice dailyNabumetone 500 mg Tablet Discontinued 1000 MG PO Twice daily November 24, 2020 1:00am February 02, 2021 7:53amStart: 11-24-2020 End: 71-13-6193nckd 1000 mg by mouth twice dailyNabumetone Discontinued 1000 MG PO Twice daily November 24, 2020 12:00am February 02, 2021 6:53amphentermine hydrochloride 37.5 mg oral tablet (20 sources)Sympathomimetic Amine AnorecticStart: 02-02-2021 End: 26-19-4606oqji 1 tablet by mouth once daily in the morningPhentermine (Adipex-P) 37.5 mg Tablet Discontinued 37.5 MG PO Every morning February 02, 2021 12:00am February 05, 2021 5:19pmpolysaccharide iron complex 150 mg oral capsule (20 sources)Start: 02-12-2021 End: 96-18-1602Jbygxkhvlywimu Iron Complex (Ferrex 150) 150 mg iron Capsule Discontinued 150 MG PO Every morning February 12, 2021 12:00am June 14, 2022 8:26ampredniSONE 50 mg oral tablet (20 sources)Start: 01-30-2023 End: 63-66-6780kxgo 1 tablet by mouth once daily at mealtimePrednisone 50 mg tablet Discontinued 50 MG PO Daily 5 January 30, 2023 12:00am February 28, 2023 9:03am administer with food or milktadalafil 20 mg oral tablet (20 sources)Phosphodiesterase 5 InhibitorStart: 68-44-0011Ixmtsy 20 mg Tab 20 mg = 1 tab(s), Oral, As Directed, Take half tab one to two hours prior to sexual activity. Do NOT exceed 20 mg (1 full tab) in 24 hours., # 30 tab(s), Refills(s) 3, Pharmacy: [facility] [id number], 188, cm, 11/08/24 10:58:00 EST, Height/Length Dosing, 144, kg, 11/08/24 10:58:00 EST, Weight Dosing Start Date: 11/08/24 Status: Ordered Quantity: 30.0 Unit: tab(s) Repeat number:4Start: 20-60-6088uvqhfflfr (Cialis) 20 MG tablet Take 20 mg by mouth 05/09/2024 Active Start: 20-22-1015Iyqdio 20 mg Tab 20 mg = 1 tab(s), Oral, As Directed, Take one tab by mouth one to two hours prior to sexual activity. Do NOT exceed 20 mg (1 tab) in 24 hours., # 30 tab(s), Refills(s) 3, Pharmacy: [facility] [id number], 188, cm, 05/09/24 10:10:00 EDT, Height/Length Dosing, 144, kg, 05/09/24 10:10:00 EDT, Weight Dosing Start Date: 05/09/24 Status: OrderedStart: 68-34-4040ldkt 1 tablet by mouth every hour as needed, then take 2 tablets by mouth every twenty-four hours as neededCialis 10 mg Tab 10 mg = 1 tab(s), Oral, As Directed, PRN for erectile dysfunction, Take one hour prior to sexual intercourse. Do not exceed 20mg within 24 hrs., # 30 tab(s), Refills(s) 0, Pharmacy: [facility] [id number], 188, cm, 05/31/23 8:37:00 EDT, Height/Length Dosing, 132, kg, 05/31/23 8:37:00 EDT, Weight Dosing Start Date: 05/31/23 Status: OrderedStart: 37-39-9859kwcw 1 tablet by mouth every twenty-four hoursCialis 5 MG 1 tablet as needed Orally Once a day for 30 day(s) Nov, ActiveStart: 09-21-2022 End: 64-56-2776qrls 1 tablet by mouth once daily in the morningTadalafil (Cialis) 10 mg Tablet Discontinued 5 MG PO Every morning September 30, 2022 1:00am October 30, 2023 8:49amStart: 21-03-0987adjg 1 mg by mouth once daily Cialis 20 mg Tab mg tab(s), Oral, Daily, Refills(s) 0 Start Date: 06/22/22 Status: Orderedtamsulosin hydrochloride 0.4 mg oral capsule (20 sources)alpha-Adrenergic BlockerStart: 08-23-2022 End: 86-61-9074kmzy 1 capsule by mouth once daily at bedtimeTamsulosin 0.4 mg capsule Discontinued 0.4 MG PO Daily at bedtime September 30, 2022 1:00am November 29, 2022 10:11amStart: 02-05-2021 End: 44-55-1799uuji 1 capsule by mouth once daily in the morningTamsulosin 0.4 mg Capsule Discontinued 0.4 MG PO Every morning February 12, 2021 12:00am June 14, 2022 8:26amtriamcinolone acetonide 40 mg/ml injectable suspension (20 sources)CorticosteroidStart: 72-17-9109Fnldolp-40 Sep, 40 mgStart: 31-67-4528Gpkgqur -40 mg February, 40 mgWalker - (5 sources)Start: 18-42-3324Pfwycx - as directed Nov, Not-Taking Problems Active Problems Problem ClassificationProblemDateDocumented DateEpisodic/ChronicAbdominal pain (2 sources)Unspecified abdominal painEpisodicAcute and unspecified renal failure (20 sources)Injury of kidney; Translations: [Acute kidney failure, unspecified] 90-72-0733GimdfgatJwbpn posthemorrhagic anemia (20 sources)Anemia following acute postoperative blood loss; Translations: [Acute posthemorrhagic anemia]85-04-5197NfbghpyfSvyyenihglvkli/social admission (20 sources)Other reduced mobility; Translations: [Impaired mobility and activities of daily living]93-55-2758CdjjujasMgftail disorders (16 sources)Cbmhywa03-98-1410XpgxgdkBfmyhvmq of urinary tract (20 sources)Kidney stone; Translations: [Calculus of kidney]Onset: 06-22-2022 EpisodicComplications of surgical procedures or medical care (20 sources)Postoperative retention of urine; Translations: [Other postprocedural complications and disorders of genitourinary system]02-04-2021 EpisodicCongestive heart failure; nonhypertensive (1 source)Unspecified diastolic (congestive) heart failure; Translations: [UNSPECIFIED DIASTOLIC HEART FAILURE]Onset: 70-81-5131UtjgprcRqadvtzs injury or internal injury (5 sources)Contusion of kidney; Translations: [Minor contusion of unspecified kidney, initial encounter]Onset: 02-93-9146EhqgxcryUtesibgm of white blood cells (20 sources)Leukocytosis; Translations: [Elevated white blood cell count, unspecified]42-37-9489LoitgjaZjnwkcsoo hypertension (17 sources)Hypertensive disorder; Translations: [Essential (primary) hypertension]Onset: 759032-26-6173GftjzuaMybxbllrlcwyk symptoms and ill- defined conditions (20 sources)Blood in urine; Translations: [Gross hematuria]Onset: 06-08-2022 EpisodicHyperplasia of prostate (20 sources)Benign prostatic hypertrophy with outflow obstruction; Translations: [Benign prostatic hyperplasia with lower urinary tract symptoms]Onset: 12-93-9246QqqdbpuRcrbpuosgeem with complications and secondary hypertension (4 sources)Hypertensive heart disease with heart failure; Translations: [HTN HEART DISEASE W/HEART FAIL]Onset: 24-06-5187PdtexaiFignizyrsadf conditions of male genital organs (6 sources)Prostatitis; Translations: [Inflammatory disease of prostate, unspecified]Onset: 39-09-9038TdgjahpsIaqef disorders and dislocations; trauma-related (20 sources)Tear of medial meniscus of knee; Translations: [Other tear of medial meniscus, current injury, leftknee, initial encounter]EpisodicLymphadenitis (2 sources)Lymphadenopathy; Translations: [Enlarged lymph nodes, unspecified] Onset: 21-37-8541WsjjwdmdQqiz disorders (20 sources)Depressive disorder; Translations: [Chronic depression]03-04-2021 ChronicMycoses (4 sources)Pain in toe; Translations: [Tinea unguium]10-12-4020LorhsywsQqho wounds of extremities (20 sources)Laceration of finger; Translations: [Laceration without foreign body of unspecified finger without damage to nail, initial encounter]2023 EpisodicOpen wounds of head; neck; and trunk (20 sources)Laceration - injury; Translations: [Laceration]93-82-8552Fkgljuiq Osteoarthritis (20 sources)Osteoarthritis of right knee joint; Translations: [Unilateral primary osteoarthritis, right knee]Onset: 02-02-2022 Resolved: 91-16-8864HdfzqtnUtbwi acquired deformities (4 sources)Contracture of joint of right ankle; Translations: [Contracture, right ankle]09-61-5727ZgwxtodJefug aftercare (1 source)ocean transportation intermediary (current) use of aspirin; Translations: [STOCK TURNER CURRENT USE OF ASPIRIN]Onset: 25-19-6246DqkxakxcDpkay aftercare (1 source)Other intermediate teacher (current) drug therapy; Translations: [OTH STOCK TURNER CURRENT DRUG THERAPY]Onset: 01-54-7293FajazgwnSxxkr aftercare (2 sources)Encounter for removal of suturesEpisodicOther and unspecified benign neoplasm (1 source)Melanocytic nevus of trunk; Translations: [Melanocytic nevi of trunk] 19-46-0270TyigyqayTepgg circulatory disease (16 sources)Vascular cfacbblubfwfa01-58-5621HifcxlkhVdoio circulatory disease (1 source)Spider nevus; Translations: [Nevus, non-neoplastic]79-40-4196Wgxnztvq Other congenital anomalies (20 sources)Congenital hip dysplasia; Translations: [Other specified congenital deformities of hip]ChronicOther congenital anomalies (4 sources)Other specified congenital deformities of hipOnset: 02-02-2022 Resolved: 82-06-0338HgokjkaVctjr connective tissue disease (20 sources)History of total knee arthroplasty; Translations: [Presence of artificial knee joint, bilateral]11-41-2089MxvxsqbJmelk connective tissue disease (4 sources)Presence of artificial knee joint, bilateralOnset: 02-02-2022 Resolved: 92-85-0844WzgmjuxBeqlo connective tissue disease (13 sources)Presence of unspecified artificial knee joint; Translations: [Knee joint replacement]29-49-5538RkbqczcAvvnk connective tissue disease (1 source)Arthrodesis statusEpisodicOther connective tissue disease (18 sources)Xgklysvn11-38-3515PvtgusjaIgjkz connective tissue disease (15 sources)Impingement syndrome of shoulder tenfnr37-43-5883RkvaahljMnqbr connective tissue disease (6 sources)Lateral epicondylitis, left elbow; Translations: [Lateral epicondylitis]EpisodicOther connective tissue disease (17 sources)Lateral epicondylitis of left humerus; Translations: [Lateral epicondylitis, left elbow]50-36-7079PboxhbdhXtebn connective tissue disease (15 sources)Hand pain; Translations: [Pain in right hand]66-34-1550WiwarvlsNuafx connective tissue disease (18 sources)Triggering of digit; Translations: [Trigger finger, right middle finger]79-52-2913NvqpnmipBjdek connective tissue disease (4 sources)Pain in right hand; Translations: [Pain in limb]48-01-7809Wbclhzto Other connective tissue disease (11 sources)Trigger finger, right middle finger; Translations: [Trigger finger (acquired)]90-68-5850YqpuimhpWudoh connective tissue disease (9 sources)Tendinitis of left quadriceps tendon; Translations: [Other specified enthesopathies of left lower limb, excluding foot]44-76-1161EkplmuinJdsaf connective tissue disease (9 sources)Tendinitis of right quadriceps tendon; Translations: [Other specified enthesopathies of right lowerlimb, excluding foot]17-85-4341JdfbmhkuVozgb connective tissue disease (8 sources)Other specified enthesopathies of left lower limb, excluding foot; Translations: [Other synovitis and tenosynovitis]31-27-5573LqudaksyRjtrn connective tissue disease (10 sources)Plantar fasciitis; Translations: [Plantar fascial fibromatosis] 11-40-0160MrpyyqulPuhor connective tissue disease (6 sources)Peroneal tendinitis of right lower limb; Translations: [Peroneal tendinitis, right leg]35-61-8463OdoiainmUwiqi connective tissue disease (1 source)Trigger finger, left middle finger; Translations: [Trigger finger (acquired)]98-13-0797FzumyrjrMxgxc connective tissue disease (1 source)Pain in right hand; Translations: [Pain in right hand]12-06-2023 EpisodicOther diseases of bladder and urethra (4 sources)Disorder of bladder; Translations: [Bladder disorder, unspecified] Onset: 00-73-3935TovmolhEwmew diseases of bladder and urethra (8 sources)Lesion of arvikwp44-02-3980RimwubvUhiom diseases of kidney and ureters (8 sources)Hematoma of uqvmkp74-62-1919NtqwshdCsvpd diseases of kidney and ureters (1 source)Other specified disorders of kidney and ureter; Translations: [OTHER SPEC DISORDERS KIDNEY URETER]Onset: 16-41-1771EdsxphaMdjjg diseases of kidney and ureters (2 sources)Acquired renal cyst without neoplastic change; Translations: [Cyst of kidney, acquired]Onset: 49-08-1828MzyxkizqJdzuc diseases of kidney and ureters (20 sources)Cyst of uyzdrp56-56-8877HpuecacoZwnys diseases of kidney and ureters (1 source)Urinary tract obstruction; Translations: [Other obstructive and reflux uropathy]Onset: 54-90-7655QsjqkubbWaiyu inflammatory condition of skin (1 source)Rosacea; Translations: [Other rosacea]65-36-7289QxbsjqxOipsg injuries and conditions due to external causes (20 sources)Contusion; Translations: [Other injury of unspecified body region, initial encounter]30-05-1417JprmmxvaXjijk injuries and conditions due to external causes (1 source)Traumatic AND/OR non-traumatic injury; Translations: [Other injury of unspecified body region, initial encounter]Onset: 53-66-0070NzjehpqmRvpuy male genital disorders (20 sources)Male erectile dysfunction, unspecified; Translations: [Erectile dysfunction]Onset: 05-78-9437YiyaxyrWasii male genital disorders (2 sources)H/O: male genital disorder; Translations: [Personal history of other diseases of male genital organs]Onset: 89-15-4012AwuarloyOxalb male genital disorders (5 sources)History of ebulapycjou01-88-5136QutykvigOslkx nervous system disorders (20 sources)Chronic pain; Translations: [Other chronic pain]18-27-4696Rlpnkob Other nervous system disorders (15 sources)Other chronic pain; Translations: [Other chronic pain]Onset: 06-27-2022 Resolved: 46-76-3642QnpkafySclti nervous system disorders (20 sources)Bilateral carpal tunnel syndrome; Translations: [Carpal tunnel syndrome, bilateral upper limbs]65-30-9374QyvczjkWhqhk nervous system disorders (20 sources)Carpal tunnel syndrome of right wrist; Translations: [Carpal tunnel syndrome, right upper limb]20-46-6971UxtgjlaVzqmd nervous system disorders (20 sources)Carpal tunnel syndrome of left wrist; Translations: [Carpal tunnel syndrome, left upper limb]42-31-3028IczieuzBzrxj nervous system disorders (7 sources)Carpal tunnel syndrome, left upper limb; Translations: [Carpal tunnel syndrome]ChronicOther nervous system disorders (3 sources)Carpal tunnel syndrome, right upper limbChronicOther nervous system disorders (20 sources)Carpal tunnel syndrome; Translations: [Carpal tunnel syndrome, left upper limb]77-85-3087RjjdhedVxfbj nervous system disorders (10 sources)Lesion of ulnar nerve, left upper limb; Translations: [Cubital tunnel syndrome, left]ChronicOther nervous system disorders (20 sources)Ulnar nerve entrapment at elbow; Translations: [Lesion of ulnar nerve, unspecified upper limb]73-97-8164YewfbdyMghqj nervous system disorders (5 sources)Lesion of ulnar nerve, unspecified upper limb; Translations: [Lesion of ulnar nerve]79-34-9782UnhaeeuHegez nervous system disorders (14 sources)Neuropathy; Translations: [Polyneuropathy, unspecified]02-01-2024 ChronicComment on above:ra lower extremtiesOther nervous system disorders (17 sources)Polyneuropathy, unspecified; Translations: [Mononeuritis of unspecified site]82-86-2401HomggsrHepnx nervous system disorders (20 sources)Postoperative pain ; Translations: [Other acute postprocedural pain] 02-90-0946BlxeidyiYkcqs nervous system disorders (16 sources)Oankvy91-75-4893WdvzzkbsLhhjc nervous system disorders (18 sources)Pain in limb; Translations: [Other acute postprocedural pain] 86-60-3302YuxslrhnCwkhj non-traumatic joint disorders (20 sources)Pain in elbow; Translations: [Pain in left elbow]99-09-9858Msqdtnta Other nutritional; endocrine; and metabolic disorders (20 sources)Body mass index 40+ - severely obese; Translations: [Body mass index (BMI) 40.0-44.9, adult]11-69-3623LiytcrsSclil nutritional; endocrine; and metabolic disorders (20 sources)Severe obesity; Translations: [Morbid (severe) obesity due to excess calories]ChronicOther nutritional; endocrine; and metabolic disorders (20 sources)Body mass index 30+ - obesity; Translations: [Obesity, unspecified] ChronicOther nutritional; endocrine; and metabolic disorders (4 sources)Obesity, unspecifiedOnset: 02-02-2022 Resolved: 08-91-7276FmlrsaqXztgv nutritional; endocrine; and metabolic disorders (3 sources)Body mass index (BMI) 40.0-44.9, adultChronicOther screening for suspected conditions (not mental disorders or infectious disease) (20 sources)Protein level - finding; Translations: [Other specified abnormal findings of blood chemistry]Onset: 210713-31-9235QvuleoodNrrwx skin disorders (2 sources)Localized swelling, mass and lump, right upper limbEpisodicOther skin disorders (18 sources)Lump on finger; Translations: [Localized swelling, mass and lump, unspecified upper limb]63-64-7409VrmtigonJvvho skin disorders (11 sources)Localized swelling, mass and lump, unspecified upper limb; Translations: [Localized superficial swelling, mass, or lump]12-83-8821Zmkikiwi Other skin disorders (1 source)Lentigo simplex; Translations: [Other melanin hyperpigmentation] 11-65-5989ObpxqstrNrdcv skin disorders (1 source)Seborrheic keratosis; Translations: [Other seborrheic keratosis] 53-23-1903IsezgcggLfjci skin disorders (1 source)Inflamed seborrheic keratosis; Translations: [Inflamed seborrheic keratosis]26-72-9548ZssrjykrAgfov upper respiratory disease (2 sources)Other diseases of mediastinum, not elsewhere classified; Translations: [Other diseases of mediastinum, not elsewhere classified]Onset: 85-93-9558VtscxcnhSwjuwrfw codes; unclassified (20 sources)Patient encounter status; Translations: [Encounter for prophylactic measures, unspecified]68-86-5798IxhwlazlKchzlayc codes; unclassified (16 sources)Jlnwiuwo89-42-0262QyvpfpatRphfcldb codes; unclassified (16 sources)Poor short-term -20-3816NkitmuahFyujihll codes; unclassified (20 sources)Other specified postprocedural states; Translations: [Other postprocedural status]EpisodicResidual codes; unclassified (17 sources)Postprocedural state finding; Translations: [Other specified postprocedural states]53-83-5479PbtajtwbLlnlejrt codes; unclassified (17 sources)History of operative procedure on elbow; Translations: [Other specified postprocedural states]39-15-2130KurdxdhlAucxfwckv and history of mental health and substance abuse codes (16 sources)Tobacco use and exposure - esjfoik17-11-7271WpqicljUtrw and subcutaneous tissue infections (20 sources)Paronychia of toe of left foot; Translations: [Cellulitis of left toe]16-20-3695JdjsgpupXucqmapserm; intervertebral disc disorders; other back problems (20 sources)Lumbar arthritis; Translations: [Spondylosis without myelopathy or radiculopathy, lumbar region]Onset: 05-09-2022 Resolved: 16-19-1686AwzgzqkNlavgnldbbu; intervertebral disc disorders; other back problems (20 sources)Radiculopathy, lumbar region; Translations: [Spinal stenosis of lumbar region]Onset: 05-09-2022 Resolved: 06-97-3768UietwnlsGmnqmdphidn injury; contusion (20 sources)Contusion of knee; Translations: [Contusion of left knee, initial encounter]EpisodicUnclassified (1 source)Patient encounter sgcszo10-42-7415Omrhhfi tract infections (17 sources)Urinary tract infectious disease; Translations: [Urinary tract infection, site not specified]Onset: 33-90-7822Nzppetkz Past or Other Problems Problem ClassificationProblemDateDocumented DateEpisodic/ChronicDiabetes mellitus without complication (1 source)Other abnormal glucose; Translations: [OTHER ABNORMAL GLUCOSE]Onset: 00-04-6997XvkdkxnaPzxgx circulatory disease (1 source)Hypotension, unspecified; Translations: [HYPOTENSION UNSPECIFIED] Onset: 12-74-6434IoegzsgdZhmwx injuries and conditions due to external causes (4 sources)Other injury of unspecified body region, initial encounter; Translations: [OTHER INJURY UNS BODY REGION INIT]Onset: 86-38-7296GkucacnaBeehg non-traumatic joint disorders (4 sources)Pain in right hipOnset: 02-02-2022 Resolved: 04-86-4821GykielekAzduc non-traumatic joint disorders (3 sources)Pain in left hipOnset: 02-16-2022 Resolved: 55-90-4914HxtaqokvZoati upper respiratory infections (1 source)Acute sinusitis, unspecified; Translations: [ACUTE SINUSITIS UNSPECIFIED]Onset: 37-87-1070RwpjfjrqGzfuaeuu codes; unclassified (1 source)Insomnia, unspecified; Translations: [INSOMNIA UNSPECIFIED]Onset: 61-60-5347AmsopswjQdlbvmcbgqwb (4 sources)Other low back pain M54.59Onset: 06-27-2022 Resolved: 06-27-2022 Results Test NameValueInterpretationReference RangeFacilityAmbulatory Visit Summaryon [id number] Visit SummaryAmbulatory Visit Summary EVERTLIMA A :1965 Visit Date:07/23/2025 Ambulatory Visit Instructions Your Care Team Attending Physician - Lima GUTIÉRREZ MD Primary Care Physician - Jeff Terrell MD Referring Physician - Jeff Terrell MD This Is Your Medications List Contact prescribing physician if questions or concerns citalopram (citalopram 40 mg Tab) cyclobenzaprine (cyclobenzaprine 10 mg Tab) gabapentin (gabapentin 600 mg Tab) irbesartan (irbesartan 300 mg Tab) potassium citrate (potassium CITRATE 10 mEq ER Tab) tadalafil (Cialis 20 mg Tab) temazepam (temazepam 15 mg Cap) tramadol (traMADOL 50 mg Tab) Procedures Performed Cystoscopy (09/26/2023), Cystoscopic laser lithotripsy of ureteric calculus (11/29/2022), ESWL of kidney (08/23/2022), Cystoscopy (07/12/2022), Epidural injection of cervical spine using fluoroscopicguidance (08/17/2018), Epidural injection of cervical spine using fluoroscopic guidance (05/26/2017), Epidural injection of cervical spine using fluoroscopic guidance (09/16/2016), Colonoscopy (07/10/2015), Biopsy of lung, Biopsy of thyroid, Carpal tunnel release, Lumbar spinal fusion, Myringotomy,Tonsillectomy, Total knee replacement, Total knee replacement, Ulnar nerve entrapment. Discharge Vitals Heart Rate (Peripheral) 76 Respiratory Rate 16 Blood Pressure 150/88 Height 188 cm Height 74 in Weight 144.4 kg Weight 318.347 lb BMI 40.86 What to do next Scheduled Follow-Up Appointments Monday2025 11:00 AM EST With: Patito Sweet MD Where: [facility] [address] [place] [address]- Medications What How Much When Instructions Unchanged citalopram (citalopram 40 mg Tab) 1 Tablets By Mouth Every day Contact prescribing physician if questions or concerns Unchanged cyclobenzaprine (cyclobenzaprine 10 mg Tab) 2 Tablets By Mouth At bedtime as needed for for spasm Contact prescribing physician if questions or concerns Unchanged gabapentin (gabapentin 600 mg Tab) 2 Tablets By Mouth 2 times a day Contact prescribing physician if questions or concerns Unchanged irbesartan (irbesartan 300 mg Tab) 1 Tablets By Mouth Every day Contact prescribing physician if questions or concerns Unchanged potassium citrate (potassium CITRATE 10 mEq ER Tab) 1 Tablets By Mouth 2 times a day Contact prescribing physician if questions or concerns Unchanged tadalafil (Cialis 20 mg Tab) 1 Tablets By Mouth As Directed Take half tab one to two hours prior to sexual activity. Do NOT exceed 20 mg (1 full tab) in 24 hours. Contact prescribing physician if questions or concerns Unchanged temazepam (temazepam 15 mg Cap) 1 Capsules By Mouth Once a day (at bedtime) Contact prescribing physician if questions or concerns Unchanged tramadol (traMADOL 50 mg Tab) 1 Tablets By Mouth Every 8 hours as needed for as needed for pain Take as needed to help with severe pain during stone passage. Not to exceed 400 mg/ day. Contact prescribing physician if questions or concerns Allergies Augmentin (Hives) Bee Stings morphine (Unknown) Problems Ongoing - Any problem that you are currently receiving treatment for. Anxiety BMI 40.0-44.9, adult BPH with urinary obstruction Cervical radiculopathy Depression ED (erectile dysfunction) HTN (hypertension) Insomnia Kidney stones Lumbar radiculopathy Morbid obesity with BMI of 40.0-44.9, adult Poor short term memory Renal cyst Thoracic spondylosis Tobacco use Tremor Venous insufficiency Historical - Any problem that you are no longer receiving treatment for. Hematoma Patient Survey You may receive a survey via text or e-mail asking about your office visit. Please share your experience with us by completing your survey. We appreciate your feedback and thank you for choosing us for your care. Patient Portal You may access all of your results and other medical record information on our secure patient portal. If you are not signed up for this yet, please contact [employer] at [phone] to get signed up today. Language Information Language assistance services are available as needed. [facility] CenterAmb[facility] Visit Summaryon 26-11-9065Nxdpnrpxbb Visit SummaryAmbulatory Visit Summary LIMA LOYD :1965 Visit Date:05/09/2025 Ambulatory Visit Instructions Your Diagnosis Kidney stones BPH with urinary obstruction ED (erectile dysfunction) Your Care Team Attending Physician - Patito [...] (07/12/2022), Epidural injection of cervical spine using fluoroscopicguidance (08/17/2018), Epidural injection of cervical spine using fluoroscopic guidance (05/26/2017), Epidural injection of cervical spine using fluoroscopic guidance (09/16/2016), Back (2000), Totalknee replacement, Total knee replacement. Discharge Vitals Heart Rate (Peripheral) 74 Blood Pressure 160/95 Height 188 cm Height 74 in Weight 137.9 kg Weight 304.017 lb BMI 39.02 What to do next Scheduled Follow-Up Appointments Monday2025 11:00 AM EST With: Patito Sweet MD Where: [facility] [address] [place] [address]- You Need to Schedule the Following Appointments Follow Up with Patito Sweet MD, URL, URO When: Where: Medications What How Much When Instructions Unchanged potassium citrate (potassium CITRATE 10 mEq ER Tab) 1 Tablets By Mouth 2 times a day Unchanged tadalafil (Cialis 20 mg Tab) 1 Tablets By Mouth As Directed Take half tab one to two hours prior to sexual activity. Do NOT exceed 20 mg (1 full tab) in 24 hours. Unchanged alprazolam (Xanax 0.25 mg Tab) 1 [...] Once a day (at bedtime) as needed forfor sleep Contact prescribing physician if questions or concerns Unchanged tramadol (traMADOL 50 mg Tab) Contact prescribing physician if questions or concerns Allergies Augmentin (Hives) Bee Stings morphine (Unknown) Problems Ongoing - Any problem that you are currently receiving treatment for. Anxiety Arthritis BPH with urinary obstruction Cervical radiculopathy Depression ED (erectile dysfunction) Enlarged lymph node History of prostatitis HTN (hypertension) Insomnia Kidney stones Lumbar radiculopathy Poor short term memory Renal cyst Shoulder impingement syndrome Thoracic spondylosis Tobacco use Tremor Venous insufficiency Historical - Any problem that you are no longer receiving treatment for. Hematoma Patient Survey You may receive a survey via text or e-mail asking about your office visit. Please share your experience with us by completing your survey. We appreciate your feedback and thank you for choosing us for your care. Education Materials Kidney Stones Kidney stones are rock-like masses that form inside of the kidneys. Kidneys are organs that make pee (urine). A kidney stone may move into other parts of the urinary tract, including: ??? The tubes that connect the kidneys to the bladder (ureters). ??? The bladder. ??? The tube that carries urine out of the body (urethra). Kidney stones can cause very bad pain and can block the flow of pee. The stone usually leaves your body through your pee. A doctor may need to take out the stone. What are the causes? Kidney stones may be caused by: ??? Too much calcium in the body. This may be caused by too much parathyroid hormone in the blood. ??? Uric acid crystals in the bladder. The body makes uric acid when you eat certain foods. ??? Narrowing of one or both of the ureters. ??? A kidney blockage that you were born with. ??? Past surgery on the kidney or the ureters. What increases the risk? (more content not included)...[facility] CenterRemindersaint luke's [facility] [id number] From: Katherine Harrison To: EU - Recalls Lue; Sent: 05/09/2025 12:35:34 EDT Show up: 10/09/2025 11:32:00 EST Subject: 6m CHANTEL/KUB Due Date/Time: 11/09/2025 11:32:00 EST Reminder Message Please Remember to: Please call pt to schedule CHANTEL for 6 mo appt. He will also need KUB for his appt. Both orders in 05/09/25 encounter. Thanks![facility] CenterUrology Office/Clinic Noteon [id number] Office/Clinic NoteUrology Office/Clinic Note Chief Complaint fu HPI Staff 59 year old male presents for 6 month w/CHANTEL and KUB. prev dx: kidney stones, BPH, ED, Enlarged lymph node *potassium citrate BID, cialis 20 mg prn S/P UroLift done on 09/26/23, laser lithotripsy done on 11/29/22, ESWL done on 08/23/22. Patient denies any dysuria or gross hematuria. Denies any flank or abdomen pain. no symptoms Passed kidney stone 3-4 days ago History of Present Illness Tests reviewed: UA, KUB, CHANTEL I have reviewed the previous health record [...] HPI. Physical Exam Vitals & Measurements HR: 74(Peripheral) BP: 160/95 HT: 74 in HT: 188 cm WT: 137.9 kg WT: 304.017 lb BMI: 39.02 General Appearance: alert, no distress, well nourished, well developed adult. Assessment/Plan 59-year-old male with hx of BPH with worsening LUTS (s/p urolift), kidney stones, and ED, here for follow up for kidney stones. 1. Kidney stones (N20.0: Calculus of kidney) L ESWL 08/23/22 for 13 mm LLP stone. Known multiple stones throughout the kidney. CT AP wo con 09/28/22 - BL stones, largest L kidney 10mm. Nonobstructing 7 x 7 x 5mm stones at the UPJ S/P Cysto/Lt Stent Placement on 09/30/22. S/p Cysto, L RPG, staged L ureteroscopy, Laser Litho, stone extraction, stent exchange (> 2 cm total stone burden) 11/29/22. Stone analysis - 100% Ca Ox monohydrate. Stone analysis 01/11/23 - 70% Ca Ox mono and Ca Ox di 30%. CHANTEL 03/03/23 - BL stones R - largest 6 mm, L - largest 8 mm. 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 KUB 03/03/23 - Few small stones RUP/RLP and LUP (known calyceal diverticulum) Serum Uric Acid 03/31/23 - 7.9, mildly elevated (normal in urine) LithoLink 05/22/23 - Lower Volume 1.8 Liters, Mildly low citrate 414, PTH 5.4, higher normal Ca. -Started on potassium citrate twice daily. Tolerated this well. potassium 4.3 on external labs 08/15/2023 CHANTEL 07/07/23 - bilateral stones, hematoma resolved. CHANTEL 05/07/24 [facility] - Multiple BL stones. No hydro. (2-3 stones BL) KUB 05/07/24 [facility] - Bilateral renal stones, largest 5 mm R kidney. Stone burden appears to have improved from prior KUB. (Difficult to view on KUB) 05/07/24 - BUN 10, Cre 1.12, eGFR >60. K 4.2. Ca 8.5 L. 08/20/24 - K 4.4. Cre 1.27 KUB 11/06/24 [facility] - BL renal stones, largest 6 mm R kidney. Radiation seeds in prostate (urolift bands). CHANTEL 11/06/24 [facility] - BL renal stones (note measured). No hydro. CHANTEL 05/07/25 [facility] - BL renal stones, largest 6 mm R kidney. No hydro. KUB 05/07/25 [facility] - BL renal stones, largest 6 mm R kidney. Taking Potassium Citrate 10 mEq bid. Passed kidney sone 3-4 days ago. No current stone passage sx. Reviewed imaging with pt which shows stable stones. Pt prefers to cont to monitor, since they have been stable, this is reasonable. Pt knows they can pass at any time but he has passed stones on his own previously. Has enough Flomax at home but would like Tramadol rx for severe stone passage pain astylenol does not touch his pain. Will send 3 day supply. Follow up 6 mos with KUB and CHANTEL or sooner if needed. Pt understands and agrees with plan. -Tramadol 50 mg q8hr x 3 days prn for stone passage. SEs discussed. [facility] -Keep Flomax 0.4 mg qd prn for MET -High fluid intake -Pt to call or go to the ER if they were to experience fever, shaking, chills, uncontrolled nausea,vomiting, or pain 2. BPH with urinary obstruction (N40.1: Benign prostatic hyperplasia with lower urinary tract symptoms) PSA: 12/2021 - 0.75 03/31/23 - 0.65 05/07/25 - 0.78 PVR (cc): 05/31/23 - 68 11/03/23 - 120 05/09/24 - 64 Failed Flomax d/t SE of dry mouth and Cialis 5 mg d/t SE of indigestion. S/p Urolift 7 seated 09/26/23. UA neg. IPSS 6 (4). No BPH meds. PSA remains low and stable. Will cont to monitor. -PSA due 1 yr (04/2026) -Limit/avoid fluids before bed -Continue monitoring sxs -Timed voids 3. ED (erectile dysfunction) (N52.9: Male erectile dysfunction, unspecified) ABDELRAHMAN not completed (10). Cialis 20 mg prn. Not addressed today. Cont wo changes. N -If Cialis is not satisfactory, consider JEEVAN or ICI next 4. Enlarged lymph node (R59.9: Enlarged lymph nodes, unspecified) Enlarged axillary lymph node and others, Left upper chest mass. [1] Bx neg per pt Follow-up With When C (more content not included)...[facility] Comment on above:Result Comment: Electronically Signed By: Patito Sweet MD\.br\Date and Time Signed: 05/09/25 12:34EDT\.br\Electronically Co-Signed By: Katherine Harrison\.br\Date and Time Co-Signed: 05/09/25 12:24 EDTPSA Total (Not a Screen)on [id number] Total (Not a Screen)0.780 ng/mLNormal0.000-4.000The Counts Include [facility] Physician GroupComment on above:Result Comment: Serial tumor marker results determined by assays using different manufacturers or methods may not be comparable. Counts Include [facility] Laboratory content coordinator and method: QBotixEL DXI, CHEMILUMINESCENT IMMUNOASSAY. PERFORMED BY: [place] [address] PATHOLOGIST ECHO TECH YOON YEH M.D.Performed By: #### PSATOTAL #### [place] [address] USAProstate specific Ag [Mass/volume] in Serum or Plasma Ordered By: Patito Sweet on 75-91-6256Vfcacrxu specific Ag [Mass/Vol]0.780 ng/mL 0.000-4.000Ohiohealth Mansfield HospitalComment on above:Serial tumor marker results determined by assays using different manufacturers or methods may not be comparable.Counts Include [facility] Laboratory content coordinator and method:AMY UNICEL DXI, CHEMILUMINESCENT IMMUNOASSAY.US renal BIon [id number] renal [facility] Main [address] [address] Ultrasound Report Signed Patient: Lima Loyd MR#: [id number] : 1965 Acct:[id number] Age/Sex: 59 / M ADM Date: 05/07/25 Loc: Room: Type: [facility] Attending Dr: Patito Sweet MD Ordering Provider: Patito Sweet MD Date of Service: 05/07/25 US/US renal BI: N20.0, N40.1 Copies to: Patito Sweet MD BILATERAL RENAL AND BLADDER ULTRASOUND CLINICAL HISTORY: History of kidney stones. COMPARISON: None FINDINGS: Estimation of renal size is approximately 11.73 cm on the right and 11.22 cm on the left. No mass. No hydronephrosis. Shadowing calculi are seen bilaterally largest measuring 6 mm involving the right kidney. Small cyst right kidney. The urinary bladder is partially distended with a volume of 193.57 ml. No shadowing stone or focal lesion. No significant postvoid residual. US/US renal BI IMPRESSION: BILATERAL NEPHROLITHIASIS. NO HYDRONEPHROSIS. Impression dictated by: Abad Perez Jr., DAlejoOAlejo 05/07/2025 4:39 PM Dictation Location: [place] [address] Tech: Teressa Olmedo Transcribed By: ALDEN 05/07/25 1639 Dictated By: Abad Perez Jr, DO 05/07/25 1638 Signed By: 05/07/25 1639[facility] Physician GroupX-ray reportOrdered By: Abad Perez on [id number] reportFIRELANDS REGIONAL MEDICAL [place] [id number] XRay Report Signed Patient: Lima Loyd MR#: [id number] : 1965 Acct:[id number] Age/Sex: 59 / M ADM Date: 5 Loc: UL Room: Type: [facility] CLI Attending Dr: Patito Sweet MD Copies to: Patito Sweet MD~ Ordering Provider: Patito Sweet MD Date of Service: 05/07/25 XR/XR KUB: N20.0 N40.1 KUB: CLINICAL INFORMATION: Kidney stone follow-up COMPARISON: KUB 11/06/2024 FINDINGS: Multiple views of the seen within both kidneys largest measuring 6 mm involving the inferior pole the right kidney. No ureteral or urinary bladder calculus. No bowel obstruction or free air. Presumed radiation seeds are seen involving the prostate gland. XR/XR KUB IMPRESSION: BILATERAL NEPHROLITHIASIS LARGEST STONE MEASURING 6 MM INVOLVING THE RIGHT KIDNEY. Impression dictated by: Abad Perez Jr., Dmitri 05/07/2025 4:40 PM Dictation Location: [place] [address] Transcribed By: [facility] 05/07/25 1640 Dictated By: Abad Perez Jr, DO 05/07/25 1639 Signed By: 05/07/[address] [place] [address] [id number] [place] [id number] XRay Report Signed Patient: Lima Loyd MR#: [id number] : 1965 Acct:[id number] Age/Sex: 59 / M ADM Date: 05/07/25 Loc: UL Room: Type: [facility] CLI Attending Dr: Patito Sweet MD Copies to: Patito Sweet MD Ordering Provider: Patito Sweet MD Date of Service: 05/07/25 XR/XR KUB: N20.0 N40.1 KUB: CLINICAL INFORMATION: Kidney stone follow-up COMPARISON: KUB 11/06/2024 FINDINGS: Multiple views of the seen within both kidneys largest measuring 6 mm involving the inferior pole the right kidney. No ureteral or urinary bladder calculus. No bowel obstruction or free air. Presumed radiation seeds are seen involving the prostate gland. XR/XR KUB IMPRESSION: BILATERAL NEPHROLITHIASIS LARGEST STONE MEASURING 6 MM INVOLVING THE RIGHT KIDNEY. Impression dictated by: Abad Perez Jr., D.OAlejo 05/07/2025 4:40 PM Dictation Location: [facility] Transcribed By: [facility] 05/07/25 1640 Dictated By: Abad Perez Jr, DO 05/07/25 1639 Signed By: 05/07/[address] [place] [address] Physician GroupReminderson [id number] Reminders From: Katherine Harrison To: TEAGAN Sweet; Sent: 11/08/2024 11:58:38 EST Show up: 04/08/2025 12:58:00 EDT Subject: 6 m CHANTEL Due Date/Time: 05/08/2025 12:58:00 EDT Reminder Message Please Remember to:_Please call pt to schedule CHANTEL for 6 m appt. [place] [facility] He will also need KUB and PSA for his appt. All ordered today 11/08/24. Pt preferred for it to be scheduled closer to appt than IO today. PATIENT RELATED REMINDER:_ ( ) Call Patient ( ) Ask Patient to ( ) Call Relative ( ) Schedule Patient ( ) Follow up on Results ( ) Other: PROVIDER RELATED REMINDER:_ ( ) Flap Presser ( ) Call Pharmacy ( ) Call Lab ( ) Other: Special Instructions:_ Comments:_ follow up 05/09/25NoMercy Health Allen HospitalCryotherapy, skin lesion Ordered By: Deisy Deluca on [id number] [facility] Work Phone: bODY FLUID CELL DIFFERENTIALon [id number] TOTAL PER COUNTED LEUKOCYTES IN BODY FLUID BY MANUAL COUNTNormalUniversity of Corpus Christi Medical Center NorthwestComment on above:Order Comment: Differential performed on cytospinPerformed By: #### [id number] #### [facility] (BEAKER) [address] [place] [place], [place] [address]ARSFQ COUNTED TOTAL (#) IN BODY [id number] HealthcareCommclaren lapeer region on above:Order Comment: Differential performed on cytospinPerformed By: #### [id number] #### [facility] (BEAKER) [address] [place], [place] [id number] TOTAL PER COUNTED LEUKOCYTES IN BODY FLUID BY MANUAL COUNTNormalUniversUK HealthcareCommclaren lapeer region on above:Order Comment: Differential performed on cytospinPerformed By: #### [id number] #### [facility] (AKER) [address] [place], [place] [id number] TOTAL PER COUNTED LEUKOCYTES IN BODY FLUID BY MANUAL [id number]d Clinic Mentor HospitalCommclaren lapeer region on above:Order Comment: Differential performed on cytospinPerformed By: #### [id number] #### [facility] (AKER) [address] [place], [place] [address]QWGBIQAKLTX CELLS TOTAL PER COUNTED LEUKOCYTES IN BODY FLUID BY MANUAL COUNNormalUniversUK HealthcareCommclaren lapeer region on above:Order Comment: Differential performed on cytospinPerformed By: #### [id number] #### [facility] (AKER) [address] [place], [place] [address]KZWROPRJE+MACROPHAGES TOTAL PER COUNTED LEUKOCYTES IN BODY FLUID BY IUZEIW54TixuwcTxcoaizybuUK HealthcareCommclaren lapeer region on above:Order Comment: Differential performed on cytospinPerformed By: #### [id number] #### [facility] (BEAKER) [address] [place], [place] [id number] TOTAL PER COUNTED LEUKOCYTES IN BODY FLUID BY MANUAL [id number] HealthcareCommclaren lapeer region on above:Order Comment: Differential performed on cytospinPerformed By: #### [id number] #### [facility] (BEAKER) [address] [place], [place] [address]DYKEQ CELLS BODY FLUID (MANUAL)Normaliversity [facility]let[facility] HospitalCommclaren lapeer region on above:Order Comment: Differential performed on cytospin Performed By: #### [id number] #### [facility] (BEAKER) [address] [place], [place] [address]XVud [id number] Attestation signed by Shantel Becker MD at 11/12/2024 12:05 PM Re-explained the procedure to the patient along with the associated risk of pneumothorax, bleeding, hypoxia, and respiratory failure. Patient is agreeable and will proceed with the scheduled bronchoscopy and EBUS Shantel Becker MD Interventional Pulmonary Medicine Pulmonary and Critical Care Medicine [facility] Physicians History Of Present Illness Lima Loyd is a 59 y.o. male presenting with 4 cm mediastinal mass and LAD he is undergoing bronchoscopy and EBUS today, risks and benefits of the procedure were discussed and the patient with detail he is agreeable. Past Medical History He has a past medical history of Anxiety, BPH (benign prostatic hyperplasia), Brachial neuritis, CTS (carpal tunnel syndrome), Erectile dysfunction, Hypertension, Kidney stone, Mediastinal mass, Obesity, Osteoarthritis, Pericarditis, Radiculopathy, cervical region, and Shortness of breath. Surgical History He has a past surgical history that includes Back surgery; Knee surgery (Bilateral); Carpal tunnel release (Bilateral); Elbow surgery (Left); Colonoscopy; Lithotripsy; Prostate surgery; and Cystoscopy. Social History He reports that he has never smoked. He has never used smokeless tobacco. He reports that he does not drink alcohol and does not use drugs. Family History Family History Problem Relation Name Age of Onset Diabetes Mother Leukemia Father Diabetes Sister Diabetes Brother Allergies Bee venom protein (honey bee), Morphine, and Amoxicillin-pot clavulanate Medications (Not in a hospital admission) Review of Systems Last Recorded Vitals Visit Vitals BP 151/80 Pulse 95 Temp 36.6 ???C (97.9 ???F) Resp 18 Ht 1.88 m (6' 2 ) Wt (!) 140 kg (308 lb 3.3 oz) SpO2 100% BMI 39.57 kg/m??? Smoking Status Never BSA 2.7 m??? Physical Exam Constitutional: Appearance: Normal appearance. He is obese. HENT: Head: Normocephalic and atraumatic. Cardiovascular: Rate and Rhythm: Normal rate and regular rhythm. Pulses: Normal pulses. Heart sounds: No murmur heard. No gallop. Pulmonary: Effort: Pulmonary effort is normal. No respiratory distress. Breath sounds: Normal breath sounds. No stridor. No wheezing, rhonchi or rales. Chest: Chest wall: No tenderness. Abdominal: General: Bowel sounds are normal. There is no distension. Palpations: Abdomen is soft. Musculoskeletal: Cervical back: Neck supple. Relevant Lab Results No results found for: NA , K , CL , CO2 , BUN , CREATININE , GLUCOSE , CALCIUM , ANIONGAP , EGFR , BCR Relevant Imaging Results CT transfer of outside films This order has been auto-finalized and does not contain a result. Assessment/Plan Assessment & Plan Mediastinal mass Will proceed with bronchoscopy and EBUS, risks and benefits of the procedure were discussed and the patient with detail he is agreeableNormalUniversity of Corpus Christi Medical Center NorthwestNON-CUSTOM CAR BUILDER CYTOLOGY - CELLULAR EXAMon 05-29-0330YWT AP CASE REPORTNormalUniversity of Corpus Christi Medical Center NorthwestComment on above:Result Comment: Non-gynecologic Cytology Case: [id number] Authorizing Provider: Shantel Becker MD Collected: 11/12/2024 1244 Ordering Location: [facility] Main Operating Room Received: 11/12/2024 1314 Pathologist: Ameya Bucio MD Specimens: A) - Mediastinum, ANTERIOR MEDIASTINAL MASS FNA B) - Bronchoalveolar lavage, right middle lobePerformed By: #### [id number] ####[facility] (BEAKER)[address] [place], [place] [address]IOE AP CLINICAL INFORMATIONOrder DiagnosesNormalUniversity of Corpus Christi Medical Center NorthwestComment on above:Result Comment: J98.59 - Mediastinal mass [ICD-10-CM]Performed By: #### [id number] ####[facility] ([facility])[address] [place], [place] [address]CPA AP GROSS DESCRIPTIONNormalUniCleveland Clinic Mentor HospitalCommclaren lapeer region on above: Result Comment: A. 3 air-dried slides, 4 alcohol-fixed slides, 30 mL CytoLyt with hazy, red fluid and clot. B. 15 mL cloudy, red fluidPerformed By: #### [id number] ####[facility] ([facility])[address] [facility], [place] [address]NPG AP INTRAOPERATIVE CONSULTATIONA. Mediastinum.Western Reserve HospitalCommclaren lapeer region on above:Result Comment: Rapid on-site evaluation was performed by Karey Verduzco MD. The material examined during rapid on-site evaluation was deemed adequate for diagnosis. Pass #1: Adequate Pass #2: Adequate Pass #3: Defer - cell block Pass #4: Defer - cell block and Afirma Pass #5: Adequate Pass #6: Defer - cell block *Only select material is examined during the on-site evaluation. Final diagnosis is pending the review of all material submitted.*Performed By: #### [id number] ####[facility] ([facility])[address] [place], [place] [address]TTF AP MICROSCOPIC DESCRIPTIONNormalUniCleveland Clinic Mentor HospitalCommclaren lapeer region on above:Result Comment: A. Satisfactory for evaluation. Examination of the prepared smears and cell block reveals groups of benign follicular cells in a background of hemosiderin-laden macrophages, abundant colloid and blood. B. Satisfactory for evaluation. Examination of the ThinPrep slide and cell block reveals benign bronchial cells, alveolar macrophages, inflammation, rare squamous cells and debris.Performed By: #### [id number] ####[facility] ([facility])[address] [place], [place] [address]MLC AP REPORT FINAL DIAGNOSIS NARRATIVENormalUniCleveland Clinic Mentor HospitalCommclaren lapeer region on above:Result Comment: A. Anterior mediastinal mass, EBUS-guided fine needle aspiration: - Negative for malignancy. - Benign thyroid tissue. B. Lung, right middle lobe, bronchoalveolar lavage: - Negative for malignancy. Performed By: #### [id number] ####[facility] ([facility])[address] [place] [address] PATHOLOGY REVIEWon [id number] REVIEWReviewed.NormalUnMercer County Community HospitalComment on above:Result Comment: .Performed By: #### [id number] ####[facility] ([facility])[address] [place], [place] [address]EFQC GLUCOSE METER UNSOLICITED RESULTSon 52-10-1128Btnsvwz [Mass/Vol]112 mg/zYRfvq82-985NyljjbozpaMercer County Community HospitalComment on above:Order Comment: Waived Testing in the ED is performed under the ED CLIA certificate #[id number].Result Comment: [email or web address] Performed By: #### [id number] ####[facility] ([facility])[address] [place], [place] [address]XMPNRYUQCAF CULTUREon 63-21-8146PEGM STAIN RESULTNormal [facility] Perrysburg HospitalComment on above:Order Comment: >10,000 CFU/mL Colonies Consistent with Upper Respiratory FloraResult Comment: Moderate Polymorphonuclear leukocytes No organisms seenPerformed By: #### [id number] ####[facility] ([facility])[address] [place], [place] [address]Mrftmtvqjn Visit Summaryon 55-54-3792Msliwzmgdz Visit SummaryAmbulatory Visit Summary LIMA LOYD :1965 Visit Date:11/08/2024 Ambulatory Visit Instructions Your Diagnosis Kidney stones BPH with urinary obstruction ED (erectile dysfunction) Enlarged lymph node Tests Performed US Renal -- Results Pending [...] (07/12/2022), Epidural injection of cervical spine using fluoroscopicguidance (08/17/2018), Epidural injection of cervical spine using fluoroscopic guidance (05/26/2017), Epidural injection of cervical spine using fluoroscopic guidance (09/16/2016), Back (2000), Totalknee replacement, Total knee replacement. Discharge Vitals Height 188 cm Height 74 in Weight 144.0 kg Weight 317.465 lb BMI 40.74 What to do next Scheduled Follow-Up Appointments Monday 11:00 AM EDT With: Kee NAVARRO, Patito Good Where: [facility] [address] [place] [address]- You Need to Schedule the Following Appointments Follow Up with Kee NAVARRO, Patito Good, URL, URO When: Where: Medications What How Much When Instructions Changed tadalafil (Cialis 20 mg Tab) 1 Tablets By Mouth As Directed Take half tab one to two hours prior to sexual activity. Do NOT exceed 20 mg (1 full tab) in 24 hours. Pickup at [facility] [id number] Unchanged potassium citrate (potassium CITRATE 10 mEq [...] Once a day (at bedtime) as needed forfor sleep Contact prescribing physician if questions or concerns Unchanged tramadol (traMADOL 50 mg Tab) Contact prescribing physician if questions or concerns Pharmacy Information [facility] [id number]: [address] [place], [place] [id number] [phone] Allergies Augmentin (Hives) Bee Stings morphine (Unknown) Problems Ongoing - Any problem that you are currently receiving treatment for. Anxiety Arthritis BPH with urinary obstruction Cervical radiculopathy Depression ED (erectile dysfunction) Enlarged lymph node Gross hematuria History of prostatitis HTN (hypertension) [...] for following this plan? Reading food labels [Image Remove (more content not included)...[facility] Prep for Procedureon 67-15-5469Jsga for [id number] Lima Loyd 1965 M Date Provider Department Center 11/08/2024 SHANTEL FRANKLIN [facility] PREOP TX Medical C Family History Problem Relation Age of Onset Diabetes Mother Leukemia Father Diabetes Sister Diabetes Brother Family Status - Relation Status Age at Mother Father Sister BrotherNormalUniversity of Corpus Christi Medical Center NorthwestUrology Office/Clinic Noteon 45-21-1997Tayzbxn Office/Clinic NoteUrology Office/Clinic Note Chief Complaint F/U with KUB and CHANTEL HPI Staff 6 month follow up w/KUB & CHANTEL done 11/06/24. Pt. states he has passed a some kidney stones in the last couple months. Previous Dx: BPH w/ urinary obstruction, ED, gross hematuria, prostatitis, kidney stone, renal cyst, UTI. S/P UroLift done on 09/26/23, laser lithotripsy done on 11/29/22, ESWL done on 08/23/22. *Start Cialis 20 mg prn, pt. will need refill, pt. also taking potassium citrate Previous PSA 03/31/23 - 0.65 IPSS 4 Dysuria: no Incomplete bladder emptying: less than one time in five Hematuria: no Frequency: less than one time in five Urgency: no Nocturia: 1x Stream: less than one time in five Post void dripping: no Wearing pads/ Depends: no Urge incontinence: no Stress incontinence: no Incontinence without Sensory Awareness: no Abdominal pain: no Flank pain: no History of Present Illness Tests reviewed: UA, KUB, CHANTEL, external labs I have reviewed the previous [...] HT: 188 cm WT: 144.0 kg WT: 317.465 lb BMI: 40.74 General Appearance: alert, no distress, well nourished, well developed male. Assessment/Plan 59-year-old male with hx of BPH with worsening LUTS (s/p urolift), kidney stones, and ED, here for follow up for kidney stones. Pt accompanied by an adult female today. 1. Kidney stones (N20.0: Calculus of kidney) L ESWL 08/23/22 for 13 mm LLP stone. [...] 11/29/22. Stone analysis 100% Ca Ox monohydrate. Stone analysis 01/11/23 -70% Ca Ox mono and Ca Ox di 30%. CHANTEL 03/03/23 - BL stones R - largest 6 mm, L - largest 8 mm. 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 KUB 03/03/23 - Few small stones RUP/RLP and LUP (known calyceal diverticulum) Serum Uric Acid 03/31/23 - 7.9, mildly elevated (normal in urine) LithoLink 05/22/23 - Lower Volume 1.8 Liters, Mildly low citrate 414, PTH 5.4, higher normal Ca. -Started on potassium citrate twice daily. Tolerated this well. potassium 4.3 on external labs 08/15/2023 CHANTEL 07/07/23 - bilateral stones, hematoma resolved. CHANTEL 05/07/24 [facility] - Multiple BL stones. No hydro. (2-3 stones BL) KUB 05/07/24 [facility] - Bilateral renal stones, largest 5 mm R kidney. Stone burden appears to have improved from prior KUB. (Difficult to view on KUB) 05/07/24 - BUN 10, Cre 1.12, eGFR >60. K 4.2. Ca 8.5 L. TODAY: 08/20/24 - K 4.4. Cre 1.27 KUB 11/06/24 [facility] - BL renal stones, largest 6 mm R kidney. Radiation seeds in prostate (urolift bands). CHANTEL 11/06/24 [facility] - BL renal stones (note measured). No hydro. Renal function overall stable. Taking Potassium Citrate 10 mEq bid, tolerating well, would like to continue. Reviewed imaging with pt, stones passable. Has passed some kidney stones the past couple of mos. If stone burden increases, consider surgical intervention (not ESWL candidate d/t hx of significantrenal hematoma). Shares good fluid intake. Drinking 96 oz daily. Follow up 6 mos with KUB and CHANTEL or sooner if needed. Pt understands and agrees with plan. -Cont high fluid intake -Increase dietary Ca -Cont K citrate as above 2. BPH with urinary obstruction (N40.1: Benign prostatic hyperplasia with lower urinary tract symptoms) PSA: 12/2021 - 0.75 03/31/23 - 0.65 PVR (cc): 05/31/23 - 68 11/03/23 - 120 05/09/24 - 64 Failed Flomax d/t SE of dry mouth and Cialis 5 mg d/t SE of indigestion. S/p Urolift 7 seated 09/26/23. UA neg. IPSS 4 (2). Not currently taking any BPH meds. Declines changes at this time -PSA in 6 mos. -Continue monitoring sxs -Timed voids 3. ED (erectile dysfunction) (N52.9: Male erectile dysfunction, unspecified) ABDELRAHMAN not completed (10). Started Cialis 20 mg prn at prior OV, using 10 mg every couple of days. Working well for ED, also taking for BPH. Could take 5 mg qd for BPH, pt prefers current regimen. -If Cialis is not satisfactory, (more content not included)...[facility] Medical CenterComment on above:Result Comment: Electronically Signed By: Patito Sweet MD\.br\Date and Time Signed: 11/08/24 12:48EST\.br\Electronically Co- Signed By: Katherine Harrison\.br\Date and Time Co-Signed: 11/08/24 11:57 ESTHPon 01-47-6676JPJprzwkviw Telehealth Visit Note Patient: Lima Loyd Age: 59 y.o. : 1965 Account No.: [id number] Referring physician: Dr. Terrell Chief complaint: Anterior mediastinal mass Date of phone call: 11/07/2024 HPI Lima Loyd is a 59 y.o. male was seen in my clinic last week but unfortunately images were not available. Patient was referred for anterior mediastinal mass. I reviewed the images and it seems that the lesion is accessible via EBUS. Called the patient informed him about the CAT scan findings and the proposed procedure. He is agreeable. Will schedule him as soon as possible. Patient continues to deny any respiratory symptoms. No cough, sputum. No chest pain, palpitations. No fever, chills, weight loss, night sweats. History reviewed. No pertinent past medical history. Past Surgical History: Procedure Laterality Date BACK SURGERY CARPAL TUNNEL RELEASE Bilateral ELBOW SURGERY Left KNEE SURGERY Bilateral knee replacement Allergies: Bee venom protein (honey bee), Morphine, and Amoxicillin-pot clavulanate Prior to Admission medications Medication Sig Start Date End Date Taking? Authorizing Provider baclofen (Lioresal) 20 mg tablet Take 2 tablets by mouth in the evening. 10/01/19 Yes Historical Provider, citalopram (CeleXA) 40 mg tablet Take 1 tablet by mouth in the morning. 10/01/19 Yes Historical Provider, cyclobenzaprine (Flexeril) 10 mg tablet 07/18/24 Yes Historical Provider, gabapentin (Neurontin) 600 mg tablet 1 tablet Orally three times daily for 30 days 05/26/22 Yes Historical Provider, irbesartan (Avapro) 300 mg tablet 05/26/22 Yes Historical Provider, potassium citrate CR (Urocit-K-10) 10 mEq ER tablet Take 10 mEq by mouth. 08/18/23 Yes Historical Provider, tadalafil (Cialis) 20 mg tablet Take 20 mg by mouth. 05/09/24 Yes Historical Provider, traMADol (Ultram) 50 mg tablet Refills(s) 0 08/18/23 Yes Historical Provider, Social history: reports that he has never smoked. He has never used smokeless tobacco. He reports that he does not drink alcohol and does not use drugs. Family History Problem Relation Name Age of Onset Diabetes Mother Leukemia Father Diabetes Sister Diabetes Brother Review of Systems: As mentioned in the History of Present Illness. Physical examination: No physical examination was performed. Encounter was held over the phone. Labs Results: No results found for: HGB , HCT , WBC , BUN , CREATININE , NA , K , BICARB , CO2 , PH , PHART , PHVEN , UAR9UKE , JGC6HTV , QJK1BKI , PO2POC , PO2ART , PO2VEN , DDN9YMS , IHH1LHE Radiology: CT scan personally reviewed and showed a heterogenous anterior mediastinal mass at the level of the aortic arch anterior aspect of the trachea Assessment and Plan: Anterior mediastinal mass Plan: Discussed with the patient. Will proceed with the EBUS guided TBNA. He is agreeable. Instructions given. Will schedule him as soon as possible Total time spent in Medical Discussion: 5 minutes. Total 10 minutes. A link to connect to a video visit was sent to the patient and he was not able to connect. The visit was initiated by the patient and conducted iis-uyuc-jt-face with use of audio-only real time telephone communication between patient and provider for a virtual visit. Verbal consent to provide and bill for this service was obtained on 11/07/2024. Shantel Becker MD Interventional Pulmonary Medicine Pulmonary and Critical Care Medicine [facility] PhysiciansNormalUniversity of Corpus [facility] Northwest Telemedicineon [id number] Lima Loyd 1965 M Date Provider Department Center 11/07/2024 383-SHANTEL BECKER DCC ONC DCC Family History Problem Relation Age of Onset Diabetes Mother Leukemia Father Diabetes Sister Diabetes Brother Family Status - Relation Status Age at Mother Father Sister Brother Level of Service:18056 MS OFFICE/OUTPT VISIT,PROCEDURE ONLY Reason for Visit and Comments: New Patient [632] - Go over ct images; has a persistent coughNormalUniversity of Corpus Christi Medical Center NorthwestUS renal BIon 82-94-7126TA renal [facility] [place] [address] Ultrasound Report Signed Patient: Lima Loyd MR#: [id number] : 1965 Acct:[id number] Age/Sex: 59 / M ADM Date: 11/06/24 Loc: Room: Type: [facility] Attending Dr: Patito Sweet MD Ordering Provider: Patito Sweet MD Date of Service: 11/06/24 US/US renal BI: N20.0 Copies to: Patito Sweet MD BILATERAL RENAL AND BLADDER ULTRASOUND CLINICAL HISTORY: Follow-up kidney stones COMPARISON: Renal ultrasound 05/07/2024 FINDINGS: Estimation of renal size is approximately 11.58 cm on the right and 11.54 cm on the left. No contour deforming mass or hydronephrosis. Echogenic foci seen within both kidneys likely relating to underlying calculi. The urinary bladder is partially distended with a volume of 135.51 ml. No shadowing stone or focal lesion. No significant postvoid residual. US/US renal BI IMPRESSION: LIKELY NONOBSTRUCTING BILATERAL NEPHROLITHIASIS. NO HYDRONEPHROSIS TO SUGGEST OBSTRUCTION. Impression dictated by: Abad Perez Jr., D.O.11/06/2024 1:40 PM Dictation Location: [place] [address] Tech: Cindi Sanchez Transcribed By: ALDEN 11/06/24 1340 Dictated By: Abad Perez Jr, DO 11/06/24 1339 Signed By: 11/06/24 1340[facility] Physician GroupX-ray reportOrdered By: Abad Perez on 07-90-9287Rtkjv [facility] Main [place] [address] [place] [address] XRay Report Signed Patient: Lima Loyd MR#: [id number] : 1965 Acct:[id number] Age/Sex: 59 / M ADM Date: 5 Loc: Room: Type: [facility] Attending Dr: Patito Sweet MD Copies to: Patito Sweet MD~ Ordering Provider: Patito Sweet MD Date of Service: 11/06/24 XR/XR abdomen 1V: N20.0 KUB: CLINICAL INFORMATION: Renal stone follow-up COMPARISON: Ultrasound performed today. FINDINGS: Bilateral nephrolithiasis, largest stone involving 6 mm involving the right kidney. No ureteral or urinary bladder calculus. Radiation seeds are seen involving the prostate gland. No bowel obstruction or free air. XR/XR abdomen 1V IMPRESSION: BILATERAL NEPHROLITHIASIS, LARGEST MEASURING 6 MM INVOLVING THE RIGHT KIDNEY. Impression dictated by: Abad Perez Jr., D.O.11/06/2024 1:41 PM Dictation Location: RADIO-PC-23 Transcribed By: ALDEN 11/06/24 1341 Dictated By: Abad Perez Jr DO 11/06/24 1340 Signed By: 11/06/24 1341 [facility] HospitalXR abdomen 1Von 90-71-1598OY abdomen 1V [place] [address] XRay Report Signed Patient: Lima Loyd MR#: [id number] : 1965 Acct:[id number] Age/Sex: 59 / M ADM Date: 11/06/24 Loc: Room: Type: [facility] Attending Dr: Patito Sweet MD Copies to: Patito Sweet MD Ordering Provider: Patito Sweet MD Date of Service: 11/06/24 XR/XR abdomen 1V: N20.0 KUB: CLINICAL INFORMATION: Renal stone follow-up COMPARISON: Ultrasound performed today. FINDINGS: Bilateral nephrolithiasis, largest stone involving 6 mm involving the right kidney. No ureteral or urinary bladder calculus. Radiation seeds are seen involving the prostate gland. No og wel obstruction or free air. XR/XR abdomen 1V IMPRESSION: BILATERAL NEPHROLITHIASIS, LARGEST MEASURING 6 MM INVOLVING THE RIGHT KIDNEY. Impression dictated by: Abad Perez Jr., D.O.11/06/2024 1:41 PM Dictation Location: RADIO-PC-23 Transcribed By: ALDEN 11/06/24 1341 Dictated By: Abad Perez Jr, DO 11/06/24 1340 Signed By: 11/06/24 1341NoNov[facility] Physician GroupTelephoneon [id number] [id number] Lima Loyd 1965 M Date Provider Department Center 11/05/2024 LEONEL RICHARDS ONC DCC Family History Problem Relation Age of Onset Diabetes Mother Leukemia Father Diabetes Sister Diabetes Brother Family Status - Relation Status Age at Mother Father Sister BrotherNormalUniversity of Corpus Christi Medical Center NorthwestTelephoneon 97-40-6834Wmywwzvrs [id number] Lima Loyd 1965 M Date Provider Department Center 11/01/2024 910-LEONEL WONG DCC ONC DCC Family History Problem Relation Age of Onset Diabetes Mother Leukemia Father Diabetes Sister Diabetes Brother Family Status - Relation Status Age at Mother Father Sister BrotherNormalUniversity of Corpus [facility] Center NorthwestOffice Visiton 49-52-1684Cprjbi- up [id number] Lima Loyd 1965 M Date Provider Department Center 10/31/2024 383-SHANTEL BECKER DCC ONC DCC Family History Problem Relation Age of Onset Diabetes Mother Leukemia Father Diabetes Sister Diabetes Brother Family Status - Relation Status Age at Mother Father Sister Brother Level of Service:39738 MS OFFICE/OUTPATIENT NEW MODERATE MDM 45 MINUTES (GC) Reason for Visit and Comments: New Patient [632] - Lung massNormalUniversity of Corpus Christi Medical Center NorthwestAbstracton [id number] Lima Loyd 1965 M Date Provider Department Center 10/23/2024 2020-DANNY EDWARDS HVCTS UT HeartVAS No family history on fileNormBucyrus Community HospitalniCleveland Clinic Mentor HospitalAutomated basophil %Ordered By: Venkta Paredes on 87-80-8481Vjcekumwn/100 WBC (Bld)0.5 % Normal.[facility] HospitalComment on above:Performed By: #### BMP, CBC #### [facility] [address] [place] [address] USAAutomated basophil countOrdered By: Venkat Paredes on 98-22-6001Iwoskdkmz (Bld) [#/Vol]0.0 10*3/uLNormal0.0-0.2FUK HealthcareComment on above:Result Comment: PERFORMED BY: [place] [address] PATHOLOGIST ECHO TECH BENEDICTO WOOD M.D.Performed By: #### BMP, CBC #### [place] [address] USAAutomated blood monocyte countOrdered By: Venkat Paredes on 76-58-4360Jfzntfulg (Bld) [#/Vol]1.0 10*3/uLHigh0.0-0.8[facility] HospitalComment on above:Performed By: #### BMP, CBC #### [place] [address] USAAutomated eosinophil %Ordered By: Venkat Paredes on 43-86-9815Nmijzezbnxq/100 WBC (Bld)2.3 %Normal.[facility] Comment on above:Performed By: #### BMP, CBC #### [place] [address] USAAutomated eosinophil countOrdered By: Venkat Paredes on 48-20-0043Vzxhtisyxwd (Bld) [#/Vol]0.2 10*3/uLNormal0.0-0.45[facility] HospitalComment on above:Performed By: #### BMP, CBC #### [place] [address] USAAutomated monocyte %Ordered By: Venkat Paredes on 65-77-5724Pkbdupgub/100 WBC (Bld)10.8 %Normal.[facility] Comment on above:Performed By: #### BMP, CBC #### [place] [address] USAAutomated neutrophil %Ordered By: Venkat Paredes on 06-70-3617Juyuatdfkxn/100 WBC (Bld)58.9 %Normal.[facility] HospitalComment on above:Performed By: #### BMP, CBC #### [place] [address] USABasic Metabolic Panelon 96-26-4162CRR/1.73 sq M.predicted MDRD (S/P/Bld) [Vol rate/Area]mL/min/{1.73_m2}NormalThe Counts Include [address] [facility] Physician GroupComment on above:Performed By: #### BMP, CBC #### [address] [place] [address] [facility] metabolic 1998 panelon 19-32-2347Pvbwa gap [Moles/Vol]11.9 mmol/L6.0 - 15.0NOMS HealthcareCalcium [Mass/Vol]8.6 mg/dL8.6 - 10.3 mg/dLNOMS HealthcareChloride [Moles/Vol]108 mmol/LHigh98 - 107 mmol/LNOMS HealthcareCO2 [Moles/Vol]27.5 mmol/L21.0 - 31.0 mmol/LNOMS HealthcareCreatinine (U) [Mass/Vol]1.27 mg/dL0.70 - 1.30 mg/dLNOMA HealthcareGFR/1.73 sq M.predicted MDRD (S/P/Bld) [Vol rate/Area]mL/min/{1.73_m2}NOMS HealthcareGlucose [Mass/Vol] 119 mg/nEXscq82 - 100 mg/dLNOMA HealthcareComment on above:Random Glucose Reference Range is dependent on time and content of last meal. Glucose of more than 200 mg/dL in a nonstressed, ambulatory subject supports the diagnosis of Diabetes Mellitus. ADA recommended reference range Interpretation and review of laboratory resultsAbnormalNOMS HealthcarePotassium [Moles/Vol]4.4 mmol/L3.5 - 5.1 mmol/LNOMS HealthcareSodium [Moles/Vol]143 mmol/L 136 - 145 mmol/LNOMS HealthcareUrea nitrogen [Mass/Vol]10 mg/dL7 - 25 mg/dLNOMA HealthcareNOMS HealthcareBasophils Auto (Bld) [#/Vol]Ordered By: Venkat Paredes on 55-01-6821Xkpjhduys (Bld) [#/Vol]Automated basophil count0.0-0.2FUK HealthcareBasophils/100 WBC Auto (Bld)Ordered By: Venkat Paredes on 10-51-7806Ewdzurzos/100 WBC (Bld)Automated basophil %.[facility] HospitalCB W Auto Differential panel (Bld)on 72-93-3792Djlcwgjji (Bld) [#/Vol]0 10*3/uL0.0 - 0.2 10*3/uLNOMS HealthcareBasophils/100 WBC Manual cnt (Syn fld)0.5 %.[facility] HealthcareEosinophils (Bld) [#/Vol]0.2 10*3/uL0.0 - 0.45 10*3/uLNOMS HealthcareEosinophils/100 WBC Manual cnt (Syn fld)2.3 %.[facility] HealthErythrocyte distribution width (RBC) [Ratio]15.4 %High12.0 - 14.8 % [facility] HealthHematocrit (Bld) [Volume fraction]40.5 %38.8 - 50.0 %[facility] HealthHemoglobin (Bld) [Mass/Vol]13.5 g/dL13.0 - 17.0 g/dLCarondelet Health Interpretation and review of laboratory resultsAbnormalCarondelet Health Lymphocytes (Bld) [#/Vol]2.6 10*3/uL1.00 - 4.8 10*3/uLNOMA Healthcare Lymphocytes/100 WBC Manual cnt (Syn fld)27.5 %.[facility] Medical CenterH (RBC) [Entitic mass]25.9 pgLow27.5 - 35.2 pgSaint John's Breech Regional Medical CenterHC (RBC) [Mass/Vol]33.3 g/dL32.5 - 35.6 g/dLCarondelet HealthMCV (RBC) [Entitic vol]77.8 fLLow83.5 - 101 fLCarondelet HealthMonocytes (Bld) [#/Vol]1 10*3/uLHigh0.0 - 0.8 10*3/uLNOMA Healthcare Monocytes+Macrophages/100 WBC Manual cnt (Syn fld)10.8 %.[facility] Neutrophils (Bld) [#/Vol]5.7 10*3/uL1.8 - 7.7 10*3/uLNOMA Healthcare Neutrophils/100 WBC Manual cnt (Syn fld)58.9 %.[facility] HealthNRBC0.2 /100{WBC}0 - 0.5 /100{WBC}[facility] HealthPlatelet mean volume (Bld) [Entitic vol]7.5 fL6.6 - 10.1 [facility]LS[facility] HealthcarePlatelets (Bld) [#/Vol]217 10*3/uL150 - 450 10*3/uLCarondelet HealthRBC LM.HPF (Urine sed) [#/Area]5.21 /[HPF]3.90 - 5.60[facility] WBC (Bld) [#/Vol]9.6 10*3/uL4.1 - 10.5 10*3/uLNOMS HealthcareWBC LM.HPF (Urine sed) [#/Area]9.6 10*3/uL4.1 - 10.5 10*3/uLNOMS HealthcareNOMS HealthcareCalcium [Mass/volume] in Serum or PlasmaOrdered By: Venkat Paredes on 04-24-3608Ykjglad [Mass/Vol]8.6 mg/dLNormal8.6-10.3FUK HealthcareComment on above:Result Comment: PERFORMED BY: [place] [address] PATHOLOGIST ECHO TECH BENEDICTO WOOD M.D.Performed By: #### BMP, CBC #### [facility] [address] [place] [address] USACalcium [Mass/Vol]Calcium [Mass/volume] in Serum or Plasma 8.6-10.3FUK HealthcareCarbon dioxide, total [Moles/volume] in Serum or PlasmaOrdered By: Venkat Paredes on 81-70-8294PA6 [Moles/Vol]27.5 mmol/OAlviof89.0-31.0[facility] HospitalComment on above:Performed By: #### BMP, CBC #### [facility] [address] [place] [address] USACO2 [Moles/Vol]Carbon dioxide, total [Moles/volume] in Serum or Gahkoh03.0-31.0[facility] HospitalChloride [Moles/volume] in Serum or PlasmaOrdered By: Venkat Paredes on 95-91-8115Ovkmmbie [Moles/Vol] 108 mmol/VTfjf22-270DnpmfcvbyOhiohealth Mansfield HospitalComment on above:Performed By: #### BMP, CBC #### [facility] [address] [place] [address] USAChloride [Moles/Vol]Chloride [Moles/volume] in Serum or ElduqqTtyb05-180IfakzszfaOhiohealth Mansfield HospitalComplete Blood Count Auto Diff on 75-83-8484Cadj Corpuscular HGB Conc33.3 g/hUTjuobl31.5-35.6The Counts Include [address] [facility] Physician GroupComment on above:Performed By: #### BMP, CBC #### [facility] [address] [place] [address] USANRBC%0.2 /100{WBC}Normal0-0.5The Counts Include [address] [facility] At [facility] Comment on above:Performed By: #### BMP, CBC #### [facility] [address] [place] [address] USACreatinine [Mass/volume] in Serum or PlasmaOrdered By: Venkat Paredes on 23-06-0372Zzzbubpuep [Mass/Vol]1.27 mg/dLNormal0.70-1.30 [facility] HospitalComment on above:Performed By: #### BMP, CBC #### [facility] [address] [place] [address] USACreatinine [Mass/Vol]Creatinine [Mass/volume] in Serum or Plasma0.70-1.30[facility] HospitalECG 12 lead ECGon 12-16-6716AZP 12 lead [facility]MAR[facility] [place] [address] [place] [address] Electrocardiograph Report Signed Patient: Lima Loyd MR#: [id number] : 1965 Acct:[id number] Age/Sex: 58 / M ADM Date: 08/20/24 Loc: Room: Type: [facility] Attending Dr: Venkat Paredes DPM Ordering Provider: [...] By: Electronically Signed By: ELENA HAMILTON MD [facility] Transcribed By: MUS Signed By Elena Hamilton MD, [facility] 08/20/[address] [place] [address] Physician GroupEosinophils Auto (Bld) [#/Vol] Ordered By: Venkat Paredes on 28-00-9219Cmrwfebtyee (Bld) [#/Vol]Automated eosinophil count0.0-0.45Ohio[facility] HospitalEosinophils/100 WBC Auto (Bld)Ordered By: Venkat Paredes on 44-13-4174Vtolalfqquh/100 WBC (Bld) Automated eosinophil %.[facility] HospitalErythrocyte distribution width Auto (RBC) [Ratio]Ordered By: Venkat Paredes on 91-85-8868Ozdxxkmqmcp distribution width (RBC) [Ratio]Erythrocyte distribution width [Ratio] by Automated seajaXhtl36.0-14.8[facility] HospitalErythrocyte distribution width [Ratio] by Automated countOrdered By: Venkat Paredes on 84-47-1766Qblwrizkwqv distribution width (RBC) [Ratio]15.4 %High12.0-14.8 [facility] HospitalComment on above:Performed By: #### BMP, CBC #### [facility] [address] [place] [id number] USAErythrocytes [#/volume] in Blood by Automated countOrdered By: Venkat Paredes on 02-87-2517GOY (Bld) [#/Vol]5.21 10*6/uLNormal3.90-5.60 [facility] HospitalComment on above:Performed By: #### BMP, CBC #### [facility] [address] [place] [address] USAGlucose [Mass/volume] in Serum or PlasmaOrdered By: Venkat Paredes on 29-81-4827Mikpzdt [Mass/Vol]119 mg/rQFfhy90-943WjtjakwpzOhiohealth Mansfield HospitalComment on above:ADA recommended reference rangeRandom Glucose Reference Range is dependent on time and content of last meal. Glucose of more than 200 mg/dL in a nonstressed, ambulatory subject supports the diagnosisof Diabetes Mellitus.Result Comment: Random Glucose Reference Range is dependent on time and content of last meal. Glucose of more than 200 mg/dL in a nonstressed, ambulatory subject supports the diagnosis of Diabetes Mellitus. ADA recommended reference rangePerformed By: #### BMP, CBC #### [facility] [address] [place] [address] USAGlucose [Mass/Vol]Glucose [Mass/volume] in Serum or Plasma Girj06-527WvvlvnlxkOhiohealth Mansfield HospitalComment on above:ADA recommended reference rangeRandom Glucose Reference Range is dependent on time and content of last meal. Glucose of more than 200 mg/dL in a nonstressed, ambulatory subject supports the diagnosisof Diabetes Mellitus.Hematocrit Auto (Bld) [Volume fraction]Ordered By: Venkat Paredes on 99-30-4289Bxghryysze (Bld) [Volume fraction]Hematocrit [Volume Fraction] of Blood by Automated count38.8-50.0 [facility] HospitalHematocrit [Volume Fraction] of Blood by Automated countOrdered By: Venkat Paredes on 79-63-2578Crnlecajwb (Bld) [Volume fraction]40.5 %Oynjkf88.8-50.0[facility] HospitalComment on above: Performed By: #### BMP, CBC #### [facility] [address] [place] [address] USAHemoglobin [Mass/volume] in BloodOrdered By: Venkat Paredes on 39-13-4947Wfmszeggup (Bld) [Mass/Vol]13.5 g/bRQkpsjl63.0-17.0[facility] HospitalComment on above:Performed By: #### BMP, CBC #### [facility] [address] [place] [address] USAHemoglobin (Bld) [Mass/Vol]Hemoglobin [Mass/volume] in Blood13.0-17.0[facility] HospitalLeukocytes [#/volume] corrected for nucleated erythrocytes in Blood by Automated counOrdered By: Venkat Paredes on 52-21-3710CKR corrected for nucl RBC Auto (Bld) [#/Vol]9.6 10*3/uL4.1-10.5 [facility] HospitalWBC corrected for nucl RBC Auto (Bld) [#/Vol] Leukocytes [#/volume] corrected for nucleated erythrocytes in Blood by Automated coun4.1-10.5FUK HealthcareLeukocytes [#/volume] in Blood by Automated countOrdered By: Venkat Paredes on 74-51-0143MIU (Bld) [#/Vol]9.6 10*3/uLNormal4.1-10.5FUK HealthcareComment on above:Performed By: #### BMP, CBC #### [facility] [address] [place] [address] USALymphocytes Auto (Bld) [#/Vol]Ordered By: Venkat Paredes on 42-15-6689Jngjlntyvkd (Bld) [#/Vol]Lymphocytes [#/volume] in Blood by Automated count1.00-4.8[facility] HospitalLymphocytes [#/volume] in Blood by Automated countOrdered By: Venkat Paredes on 94-56-2591Dezqframesl (Bld) [#/Vol]2.6 10*3/uLNormal1.00-4.8[facility] HospitalComment on above:Performed By: #### BMP, CBC #### [place] [address] USALymphocytes/100 WBC Auto (Bld)Ordered By: Venkat Paredes on 76-47-3697Sdqyztbmhju/100 WBC (Bld)Lymphocytes/100 leukocytes in Blood by Automated count.[facility] HospitalLymphocytes/100 leukocytes in Blood by Automated countOrdered By: Venkat Paredes on 76-38-9721Ubyvxyeuvqw/100 WBC (Bld)27.5 %Normal.[facility] HospitalComment on above: Performed By: #### BMP, CBC #### [facility] [address] [place] [address] Auto (RBC) [Entitic mass]Ordered By: Venkat Paredes on 16-94-9664XSJ (RBC) [Entitic mass]MCH [Entitic mass] by Automated countLow 27.5-35.2FUK HealthcareMCH [Entitic mass] by Automated count Ordered By: Venkat Paredes on 37-67-5782CBS (RBC) [Entitic mass]25.9 pgLow 27.5-35.2FUK HealthcareComment on above:Performed By: #### BMP, CBC #### [facility] [address] [place], [place] [address]HC Auto (RBC) [Mass/Vol]Ordered By: Venkat Paredes on 94-74-9757HOLB (RBC) [Mass/Vol]33.3 g/dL32.5-35.6FTrinity Health System East CampusHC (RBC) [Mass/Vol]MCHC [Mass/volume] by Automated count32.5-35.6 [facility] HospitalV Auto (RBC) [Entitic vol]Ordered By: Venkat Paredes on 29-36-9766FLX (RBC) [Entitic vol]MCV [Entitic volume] by Automated usswbTfl14.5-101[facility] HospitalV [Entitic volume] by Automated countOrdered By: Venkat Paredes on 64-64-5080MHO (RBC) [Entitic vol]77.8 [address]LL[address] [place], [place] [address]Comment on above: Performed By: #### BMP, CBC #### [facility] [address] [place] [address] USAMonocytes Auto (Bld) [#/Vol]Ordered By: Venkat Paredes on 55-16-8249Mbrrcvlsi (Bld) [#/Vol]Automated blood monocyte countHigh0.0-0.8 [facility] HospitalMonocytes/100 WBC Auto (Bld)Ordered By: Venkat Paredes on 80-15-4831Ujdznzevs/100 WBC (Bld)Automated monocyte %. [facility] HospitalNeutrophils Auto (Bld) [#/Vol]Ordered By: Venkat Paredes on 34-32-9891Znzytfvilmb (Bld) [#/Vol]Neutrophils [#/volume] in Blood by Automated count1.8-7.7FUK HealthcareNeutrophils [#/volume] in Blood by Automated countOrdered By: Venkat Paredes on 08-20-2024 Neutrophils (Bld) [#/Vol]5.7 10*3/uLNormal1.8-7.7FUK HealthcareComment on above:Performed By: #### BMP, CBC #### [facility] [address] [place] [address] USANeutrophils/100 WBC Auto (Bld)Ordered By: Venkat Paredes on 19-65-3763Belyevdgmex/100 WBC (Bld)Automated neutrophil %.[facility] HospitalNo Panel InformationOrdered By: Venkat Paredes on 08-20-2024 Estimated GFR (CKD-EPI)> 60.0 mL/MinOhiohealth Mansfield HospitalPharmacy Creatinine Clearance (ChemN/AFUK HealthcareNucleated erythrocytes [Presence] in Blood by Automated countOrdered By: Venkat Paredes on 31-41-0002Dnnjozgsa RBC Auto Ql (Bld)0.2 /100{WBC}0-0.5FUK HealthcareNucleated RBC Auto Ql (Bld)Nucleated erythrocytes [Presence] in Blood by Automated count0-0.5FUK HealthcarePlatelet mean volume Auto (Bld) [Entitic vol]Ordered By: Venkat Paredes on 00-36-6632Aguvzkfh mean volume (Bld) [Entitic vol]Platelet mean volume [Entitic volume] in Blood by Automated count6.6-10.1FUK HealthcarePlatelet mean volume [Entitic volume] in Blood by Automated countOrdered By: Venkat Paredes on 41-13-7804Xgegeeue mean volume (Bld) [Entitic vol]7.5 fLNormal6.6-10.1FUK HealthcareComment on above:Performed By: #### BMP, CBC #### [facility] [address] [place] [id number] USAPlatelets Auto (Bld) [#/Vol]Ordered By: Venkat Paredes on 66-39-2648Fvhvggoac (Bld) [#/Vol]Platelets [#/volume] in Blood by Automated tilzh052-521UucmhbhwzOhiohealth Mansfield HospitalPlatelets [#/volume] in Blood by Automated countOrdered By: Venkat Paredes on 97-94-5760Ubhyogkwd (Bld) [#/Vol] 217 10*3/xXDyfucq001-996NbtygemvzOhiohealth Mansfield HospitalComment on above: Performed By: #### BMP, CBC #### [facility] [address] [place] [address] USAPotassium [Moles/volume] in Serum or PlasmaOrdered By: Venkat Paredes on 26-38-1251Zlkdjtico [Moles/Vol]4.4 mmol/LNormal3.5-5.1 [facility] HospitalComment on above:Performed By: #### BMP, CBC #### [facility] [address] [place] [address] USAPotassium [Moles/Vol]Potassium [Moles/volume] in Serum or Plasma3.5-5.1FUK HealthcareRBC Auto (Bld) [#/Vol]Ordered By: Venkat Paredes on 38-95-4176EPH (Bld) [#/Vol]Erythrocytes [#/volume] in Blood by Automated count3.90-5.60[facility] Hospitalerum or plasma anion gap determinationOrdered By: Venkat Paredes on 96-67-4238Prydy gap [Moles/Vol] 11.9 mmol/LNormal6.0-15.0[facility] HospitalComment on above: Performed By: #### BMP, CBC #### [facility] [address] [place] [address] USAAnion gap [Moles/Vol]Serum or plasma anion gap determination6.0-15.0[facility] Hospitalodium [Moles/volume] in Serum or PlasmaOrdered By: Venkat Paredes on 64-33-1129Hppwpw [Moles/Vol]143 mmol/JYxzlnc374-465WrvudejrsOhiohealth Mansfield HospitalComment on above:Performed By: #### BMP, CBC #### [facility] [address] [place] [address] USASodium [Moles/Vol]Sodium [Moles/volume] in Serum or Plasma 136-145Ohio[facility] HospitalUrea nitrogen [Mass/volume] in Serum or PlasmaOrdered By: Venkat Paredes on 05-72-7426Jpvj nitrogen [Mass/Vol]10 mg/dL Normal05-09[facility] HospitalComment on above:Performed By: #### BMP, CBC #### [facility] [address] [place] [id number] USAUrea nitrogen [Mass/Vol]Urea nitrogen [Mass/volume] in Serum or Plasma05-09[facility] HospitalWBC Auto (Bld) [#/Vol] Ordered By: Venkat Paredes on 88-07-5145BJD (Bld) [#/Vol]Leukocytes [#/volume] in Blood by Automated count4.1-10.5FUK HealthcareCalcium [Mass/volume] in Serum or PlasmaOrdered By: Patito Sweet on 24-98-4951Clubnse [Mass/Vol]8.5 mg/dLLow8.6-10.3FUK HealthcareCarbon dioxide, total [Moles/volume] in Serum or PlasmaOrdered By: Patito Sweet on 51-54-4220WH5 [Moles/Vol]26.8 mmol/L21.0-31.0[facility] HospitalChloride [Moles/volume] in Serum or PlasmaOrdered By: Patito Sweet on 48-10-5891Chasebwa [Moles/Vol]105 mmol/W11-633QczfllyqyOhiohealth Mansfield HospitalCreatinine [Mass/volume] in Serum or PlasmaOrdered By: Patito Sweet on 04-35-3228Gvozxftnqj [Mass/Vol]1.12 mg/dL0.70-1.30[facility] HospitalGlucose [Mass/volume] in Serum or PlasmaOrdered By: Patito Sweet on 68-49-0536Ectaeed [Mass/Vol]191 mg/kJKgel20-374EfqusflsaOhiohealth Mansfield HospitalComment on above: ADA recommended reference rangeRandom Glucose Reference Range is dependent on time and content of last meal. Glucose of more than 200 mg/dL in a nonstressed, ambulatory subject supports the diagnosisof Diabetes Mellitus.No Panel InformationOrdered By: Patito Sweet on 21-71-0789Fradfzlov GFR (CKD-EPI)> 60.0 mL/MinOhiohealth Mansfield HospitalPharmacy Creatinine Clearance (ChemN/A [facility] HospitalPotassium [Moles/volume] in Serum or Plasma Ordered By: Patito Sweet on 34-54-5998Rzwmkellx [Moles/Vol]4.2 mmol/L3.5-5.1 [facility] Hospitalerum or plasma anion gap determinationOrdered By: Patito Sweet on 61-77-8058Ckhsl gap [Moles/Vol]9.4 mmol/L6.0-15.0[facility] Hospitalodium [Moles/volume] in Serum or PlasmaOrdered By: Patito Sweet on 15-85-6959Eomypk [Moles/Vol]137 mmol/W315-022UjcdneofgOhiohealth Mansfield HospitalUrea nitrogen [Mass/volume] in Serum or PlasmaOrdered By: Patito Sweet on 41-01-8175Jlhd nitrogen [Mass/Vol]10 mg/dL7-25[facility] Calcium [Mass/volume] in Serum or PlasmaOrdered By: Patito Sweet on 11-23-2023 Calcium [Mass/Vol]8.8 mg/dL8.6-10.3FUK HealthcareCarbon dioxide, total [Moles/volume] in Serum or PlasmaOrdered By: Patito Sweet on 18-88-2820BQ6 [Moles/Vol]28.9 mmol/L21.0-31.0[facility] Chloride [Moles/volume] in Serum or PlasmaOrdered By: Patito Sweet on 11-23-2023 Chloride [Moles/Vol]105 mmol/Y34-545JtdmwbmzsOhiohealth Mansfield HospitalCreatinine [Mass/volume] in Serum or PlasmaOrdered By: Patito Sweet on 49-69-6481Jbqchisffn [Mass/Vol]1.15 mg/dL0.70-1.30[facility] HospitalGlucose [Mass/volume] in Serum or PlasmaOrdered By: Patito Sweet on 15-08-5426Hyclaiu [Mass/Vol]119 mg/dD25-807YhynzaiqdOhiohealth Mansfield HospitalComment on above:ADA recommended reference rangeRandom Glucose Reference Range is dependent on time and content of last meal. Glucose of more than 200 mg/dL in a nonstressed, ambulatory subject supports the diagnosisof Diabetes Mellitus.No Panel InformationOrdered By: Patito Sweet on 81-00-6532Mhmjmpddy GFR (CKD-EPI)> 60.0 mL/MinOhiohealth Mansfield HospitalPharmacy Creatinine Clearance (ChemN/A [facility] HospitalPotassium [Moles/volume] in Serum or Plasma Ordered By: Patito Sweet on 00-25-2321Yvmnkwhdm [Moles/Vol]4.3 mmol/L3.5-5.1 [facility] Hospitalerum or plasma anion gap determinationOrdered By: Patito Sweet on 61-14-7271Sderg gap [Moles/Vol]9.4 mmol/L6.0-15.0[facility] Hospitalodium [Moles/volume] in Serum or PlasmaOrdered By: Patito Sweet on 51-35-6594Cibaix [Moles/Vol]139 mmol/H421-300XazggsxcpOhiohealth Mansfield HospitalUrea nitrogen [Mass/volume] in Serum or PlasmaOrdered By: Patito Sweet on 78-63-9267Yyci nitrogen [Mass/Vol]11 mg/dL7-25[facility] COAGULATIONOrdered By: Ayana Lopez on 63-25-0487qCTE Coag (PPP) [Time]32.6 s Rqnrwt71.1 - 36.5 second(s)[facility] Auto CoagComment on above:Interpretive Data: Parameter 15 days - 4 weeks 1 - [...] the same coagulation reagent and instrumentation as [facility]. Currently there are no coagulation studies available worldwide for children to 14 days, andno normal ranges. Heparin therapeutic range (represented by Anti-Factor Xa activity of 0.2 - 0.4 U/mL) corresponds to PTT of 56.6 - 109.0 sec.INR Coag (PPP) [Relative time]1.1 {INR}Invalid Interpretation CodeSTILLWATER MEDICAL CENTER – [place] Auto CoagComment on above:Interpretive Data: INR results are specifically intended to assess patients stabilized on long-term Anticoagulation therapy suggested INR s Less Intensive Anticoagulation 2.0 3.0 Conventional Range 3.0 4.5PT Coag (PPP) [Time]12.6 sHigh9.4 - 12.5 second(s)[facility] Auto CoagComment on above:Interpretive Data: 15 days - 4 weeks 1 - 5 months 6 -11 months 1 5 years 6 10 years 11 -17 years Mean: 11.2 (9.5 12.6) Mean: 11.0 (9.7 12.8) Mean: 11.0 (9.8 13.0) Mean: 11.3 (9.9 13.4) Mean: 11.7 (10.0 14.6) Mean: 11.8 (10.0 - 14.1) Pediatric Reference ranges were obtained from a study by jarvis Dewitt al. prepared from 1437 samples obtained at 7 different centers using the same coagulation reagent and instrumentation as [facility]. Currently there are no coagulation studies available worldwide for children to 14 days, andno normal ranges.Alanine aminotransferase [Enzymatic activity/volume] in Serum or PlasmaOrdered By: Gaurav Higuera on 62-86-1911VJJ [Catalytic activity/Vol]17 U/L 7-52[facility] HospitalAlbumin [Mass/volume] in Serum or Plasma by Bromocresol green (BCG) dye binding methoOrdered By: Gaurav Higuera on 69-58-3728Tyiwqsq BCG dye [Mass/Vol]4.2 g/dL3.5-5.7FUK HealthcareAlkaline phosphatase [Enzymatic activity/volume] in Serum or PlasmaOrdered By: Gaurav Higuera on 09-49-7804NVQ [Catalytic activity/Vol]47 U/H10-010KjvpwhruaOhiohealth Mansfield HospitalAspartate aminotransferase [Enzymatic activity/volume] in Serum or PlasmaOrdered By: Gaurav Higuera on 13-18-8518VQF [Catalytic activity/Vol]13 U/E11-44RriezghkiOhiohealth Mansfield HospitalBasophils Auto (Bld) [#/Vol]Ordered By: Gaurav Higuera on 73-63-1305Zdaryiusv (Bld) [#/Vol]0.1 10*3/uL 0.0-0.2FUK HealthcareBasophils/100 WBC Auto (Bld)Ordered By: Gaurav Higuera on 90-28-9920Lzoyvtyhe/100 WBC (Bld)0.8 %.[facility] HospitalBilirubin.total [Mass/volume] in Serum or PlasmaOrdered By: Gaurav Higuera on 38-92-5184Ewudqptno [Mass/Vol]0.4 mg/dL0.3-1.0[facility] HospitalCalcium [Mass/volume] in Serum or PlasmaOrdered By: Gaurav Higuera on 98-27-3080Nqiqjuf [Mass/Vol]8.6 mg/dL8.6-10.3FUK HealthcareCarbon dioxide, total [Moles/volume] in Serum or PlasmaOrdered By: Gaurav Higuera on 69-59-9698ZI8 [Moles/Vol]23.6 mmol/L21.0-31.0[facility] HospitalChloride [Moles/volume] in Serum or PlasmaOrdered By: Gaurav Higuera on 35-69-7119Navluqpi [Moles/Vol]108 mmol/U84-833ShselkdfbOhiohealth Mansfield HospitalCreatinine [Mass/volume] in Serum or PlasmaOrdered By: Gaurav Higuera on 56-50-4940Qjujeurjyn [Mass/Vol]1.50 mg/dL0.70-1.30[facility] HospitalEosinophils Auto (Bld) [#/Vol]Ordered By: Gaurav Higuera on 19-11-6780Ijrvlmyymeq (Bld) [#/Vol]0.2 10*3/uL0.0-0.45[facility] HospitalEosinophils/100 WBC Auto (Bld)Ordered By: Gaurav Higuera on 08-15-2023 Eosinophils/100 WBC (Bld)2.5 %.[facility] HospitalErythrocyte distribution width Auto (RBC) [Ratio]Ordered By: Gaurav Higuera on 08-15-2023 Erythrocyte distribution width (RBC) [Ratio]15.4 %12.0-14.8[facility] HospitalGlobulin Calc (S) [Mass/Vol]Ordered By: Gaurav Higuera on 79-07-2024Bmxpvskl (S) [Mass/Vol]2.3 g/dLOhiohealth Mansfield Hospital Glucose [Mass/volume] in Serum or PlasmaOrdered By: Gaurav Higuera on 08-15-2023 Glucose [Mass/Vol]120 mg/zR97-968EpnothxswOhiohealth Mansfield HospitalComment on above:ADA recommended reference rangeGlucose mean value [Mass/volume] in Blood Estimated from glycated hemoglobinOrdered By: Gaurav Higuera on 32-38-0835Zwvcezh glucose Estimated from glycated hemoglobin (Bld) [Mass/Vol]134 mg/dLOhiohealth Mansfield HospitalHematocrit Auto (Bld) [Volume fraction]Ordered By: Gaurav Higuera on 83-19-1388Txqwmqlier (Bld) [Volume fraction]40.0 %38.8-50.0[facility] HospitalHemoglobin [Mass/volume] in BloodOrdered By: Gaurav Higuera on 64-84-7616Akvogiltwz (Bld) [Mass/Vol]13.4 g/dL13.0-17.0[facility] HospitalLaboratory - Hematology and Cell countsOrdered By: Gaurav Higuera on 57-73-7777QjZ1a (Bld) [Mass fraction]6.3 %4.3-5.6FUK HealthcareComment on above:Increased risk for diabetes: 5.7 - 6.4diabetes: >6.4glycemic control for adults with diabetes: <7.0Leukocytes [#/volume] corrected for nucleated erythrocytes in Blood by Automated counOrdered By: Gaurav Higuera on 03-42-9904SZQ corrected for nucl RBC Auto (Bld) [#/Vol]6.6 10*3/uL4.1-10.5FUK HealthcareLymphocytes Auto (Bld) [#/Vol] Ordered By: Gaurav Higuera on 76-79-5734Zvkopphehom (Bld) [#/Vol]2.0 10*3/uL 1.00-4.8[facility] HospitalLymphocytes/100 WBC Auto (Bld)Ordered By: Gaurav Higuera on 53-09-6897Zqqwmjwzpho/100 WBC (Bld)30.2 %.[facility] HospitalH Auto (RBC) [Entitic mass]Ordered By: Gaurav Higuera on 58-10-9587TDR (RBC) [Entitic mass]26.0 pg27.5-35.2FUK HealthcareMCHC Auto (RBC) [Mass/Vol]Ordered By: Gaurav Higuera on 89-73-7736ZCDQ (RBC) [Mass/Vol]33.5 g/dL32.5-35.6FUK HealthcareMCV Auto (RBC) [Entitic vol]Ordered By: Gaurav Higuera on 45-06-7045RDP (RBC) [Entitic vol]77.7 fL83.5-101Ohio[facility] HospitalMonocytes Auto (Bld) [#/Vol] Ordered By: Gaurav Higuera on 54-48-3257Okekiamdl (Bld) [#/Vol]0.7 10*3/uL0.0-0.8 [facility] HospitalMonocytes/100 WBC Auto (Bld)Ordered By: Gaurav Higuera on 01-85-6016Sykjqmgvo/100 WBC (Bld)10.3 %.[facility] HospitalNeutrophils Auto (Bld) [#/Vol]Ordered By: Gaurav Higuera on 08-15-2023 Neutrophils (Bld) [#/Vol]3.7 10*3/uL1.8-7.7[facility] Neutrophils/100 WBC Auto (Bld)Ordered By: Gaurav Higuera on 08-15-2023 Neutrophils/100 WBC (Bld)56.2 %.[facility] HospitalNo Panel InformationOrdered By: Gaurav Higuera on 85-61-6827Aiitxjiep GFR (CKD-EPI)53.298 mL/MinOhiohealth Mansfield HospitalPharmacy Creatinine Clearance (ChemN/A [facility] HospitalNucleated erythrocytes [Presence] in Blood by Automated countOrdered By: Gaurav Higuera on 39-61-3703Pjpwskkkl RBC Auto Ql (Bld)0.1 /100{WBC}0-0.5FUK HealthcarePlatelet mean volume Auto (Bld) [Entitic vol]Ordered By: Gaurav Higuera on 52-45-8138Ceqqwtbo mean volume (Bld) [Entitic vol]7.2 fL6.6-10.1[facility] Platelets Auto (Bld) [#/Vol]Ordered By: Gaurav Higuera on 18-15-7440Qifvpwpec (Bld) [#/Vol]220 10*3/bS572-806XguwubvuuOhiohealth Mansfield HospitalPotassium [Moles/volume] in Serum or PlasmaOrdered By: Gaurav Higuera on 08-15-2023 Potassium [Moles/Vol]4.3 mmol/L3.5-5.1FUK HealthcareProtein [Mass/volume] in Serum or PlasmaOrdered By: Gaurav Higuera on 27-86-8354Gqwynyq [Mass/Vol]6.5 g/dL6.4-8.9[facility] HospitalRBC Auto (Bld) [#/Vol] Ordered By: Gaurav Higuera on 26-17-6300OKZ (Bld) [#/Vol]5.14 10*6/uL3.90-5.60 [facility] Hospitalerum or plasma albumin/globulin mass ratio Ordered By: Gaurav Higuera on 14-71-9675Xtwplkw/Globulin [Mass ratio]1.8 {ratio} [facility] Hospitalerum or plasma anion gap determinationOrdered By: Gaurav Higuera on 99-41-2414Itkxu gap [Moles/Vol]10.7 mmol/L6.0-15.0[facility] Hospitalodium [Moles/volume] in Serum or PlasmaOrdered By: Gaurav Higuera on 13-81-0998Ghqlef [Moles/Vol]138 mmol/E864-596AxyxzesvvOhiohealth Mansfield HospitalUrea nitrogen [Mass/volume] in Serum or PlasmaOrdered By: Gaurav Higuera on 26-76-5595Gmmu nitrogen [Mass/Vol]15 mg/dL7-25[facility] HospitalWBC Auto (Bld) [#/Vol]Ordered By: Gaurav Higuera on 55-13-5728ZZG (Bld) [#/Vol]6.6 10*3/uL4.1-10.5FUK HealthcareAlanine aminotransferase [Enzymatic activity/volume] in Serum or PlasmaOrdered By: Gaurav Higuera on 88-13-0685JJR [Catalytic activity/Vol]16 U/L7-52[facility] HospitalAlbumin [Mass/volume] in Serum or Plasma by Bromocresol green (BCG) dye binding methoOrdered By: Gaurav Higuera on 48-40-4077Jlgarnx BCG dye [Mass/Vol]4.4 g/dL3.5-5.7FUK HealthcareAlkaline phosphatase [Enzymatic activity/volume] in Serum or PlasmaOrdered By: Gaurav Higuera on 76-91-0464YVW [Catalytic activity/Vol]56 U/K37-968MafxagvfkOhiohealth Mansfield HospitalAspartate aminotransferase [Enzymatic activity/volume] in Serum or PlasmaOrdered By: Gaurav Higuera on 33-07-9946AKQ [Catalytic activity/Vol]12 U/L 13-39[facility] HospitalBasophils Auto (Bld) [#/Vol]Ordered By: Gaurav Higuera on 72-52-3898Brbtytixd (Bld) [#/Vol]0.0 10*3/uL0.0-0.2FUK HealthcareBasophils/100 WBC Auto (Bld)Ordered By: Gaurav Higuera on 96-87-1869Qvckufcaq/100 WBC (Bld)0.3 %.[facility] Bilirubin.total [Mass/volume] in Serum or PlasmaOrdered By: Gaurav Higuera on 40-44-0458Lckjszqed [Mass/Vol]0.7 mg/dL0.3-1.0[facility] Calcium [Mass/volume] in Serum or PlasmaOrdered By: Gaurav Higuera on 03-31-2023 Calcium [Mass/Vol]8.8 mg/dL8.6-10.3F[facility] HealthcareCarbon dioxide, total [Moles/volume] in Serum or PlasmaOrdered By: Gaurav Higuera on 05-84-4395CL3 [Moles/Vol]26.7 mmol/L21.0-31.0[facility] Chloride [Moles/volume] in Serum or PlasmaOrdered By: Gaurav Higuera on 78-81-9181Uempptch [Moles/Vol]106 mmol/D35-048FpmdgdeflOhiohealth Mansfield Hospital Creatinine [Mass/volume] in Serum or PlasmaOrdered By: Gaurav Higuera on 09-16-6092Vpqvcaitdk [Mass/Vol]1.24 mg/dL0.70-1.30[facility] HospitalEosinophils Auto (Bld) [#/Vol]Ordered By: Gaurav Higuera on 03-31-2023 Eosinophils (Bld) [#/Vol]0.1 10*3/uL0.0-0.45[facility] Eosinophils/100 WBC Auto (Bld)Ordered By: Gaurav Higuera on 03-31-2023 Eosinophils/100 WBC (Bld)1.0 %.[facility] HospitalErythrocyte distribution width Auto (RBC) [Ratio]Ordered By: Gaurav Higuera on 03-31-2023 Erythrocyte distribution width (RBC) [Ratio]16.1 %12.0-14.8[facility] HospitalGlobulin Calc (S) [Mass/Vol]Ordered By: Gaurav Higuera on 24-09-8879Umidwyss (S) [Mass/Vol]2.1 g/dLOhiohealth Mansfield Hospital Glucose [Mass/volume] in Serum or PlasmaOrdered By: Gaurav Higuera on 03-31-2023 Glucose [Mass/Vol]105 mg/cW98-318UgxewdtlhOhiohealth Mansfield HospitalComment on above:ADA recommended reference rangeGlucose mean value [Mass/volume] in Blood Estimated from glycated hemoglobinOrdered By: Gaurav Higuera on 98-58-6975Hgjnnqv glucose Estimated from glycated hemoglobin (Bld) [Mass/Vol]151 mg/dLOhiohealth Mansfield HospitalHematocrit Auto (Bld) [Volume fraction]Ordered By: Gaurav Higuera on 87-96-3102Sazqawplsp (Bld) [Volume fraction]41.1 %38.8-50.0[facility] HospitalHemoglobin [Mass/volume] in BloodOrdered By: Gaurav Higuera on 36-66-4638Vqjbfmvdxb (Bld) [Mass/Vol]13.8 g/dL13.0-17.0[facility] HospitalLaboratory - Hematology and Cell countsOrdered By: Gaurav Higuera on 39-90-1188UcC9n (Bld) [Mass fraction]6.9 %4.3-5.6FUK HealthcareComment on above:Increased risk for diabetes: 5.7 - 6.4diabetes: >6.4glycemic control for adults with diabetes: <7.0Leukocytes [#/volume] corrected for nucleated erythrocytes in Blood by Automated counOrdered By: Gaurav Higuera on 27-20-5549MUQ corrected for nucl RBC Auto (Bld) [#/Vol]9.6 10*3/uL4.1-10.5FUK HealthcareLymphocytes Auto (Bld) [#/Vol] Ordered By: Gaurav Higuera on 04-42-2938Enkpliqidto (Bld) [#/Vol]2.1 10*3/uL 1.00-4.8[facility] HospitalLymphocytes/100 WBC Auto (Bld)Ordered By: Gaurav Higuera on 26-52-4958Uzqyxjfkubf/100 WBC (Bld)21.5 %.[facility] HospitalH Auto (RBC) [Entitic mass]Ordered By: Gaurav Higuera on 65-15-2672NGX (RBC) [Entitic mass]26.3 pg27.5-35.2FUK HealthcareMCHC Auto (RBC) [Mass/Vol]Ordered By: Gaurav Higuera on 41-77-3118VIDY (RBC) [Mass/Vol]33.6 g/dL32.5-35.6FUK HealthcareMCV Auto (RBC) [Entitic vol]Ordered By: Gaurav Higuera on 67-48-8452BDV (RBC) [Entitic vol]78.2 fL83.5-101[facility] HospitalMonocytes Auto (Bld) [#/Vol] Ordered By: Gaurav Higuera on 61-54-7041Sxrwwtomr (Bld) [#/Vol]0.7 10*3/uL0.0-0.8 [facility] HospitalMonocytes/100 WBC Auto (Bld)Ordered By: Gaurav Higuera on 33-28-0204Ciprpjsud/100 WBC (Bld)7.2 %.[facility] HospitalNeutrophils Auto (Bld) [#/Vol]Ordered By: Gaurav Higuera on 03-31-2023 Neutrophils (Bld) [#/Vol]6.7 10*3/uL1.8-7.7[facility] Neutrophils/100 WBC Auto (Bld)Ordered By: Gaurav Higuera on 03-31-2023 Neutrophils/100 WBC (Bld)70.0 %.[facility] HospitalNo Panel InformationOrdered By: Gaurav Higuera on 45-47-0610Ymblduvww GFR (CKD-EPI)> 60.0 mL/MinOhiohealth Mansfield HospitalPharmacy Creatinine Clearance (ChemN/A [facility] HospitalNucleated erythrocytes [Presence] in Blood by Automated countOrdered By: Gaurav Higuera on 57-27-8977Pswdyyjtc RBC Auto Ql (Bld)0.1 /100{WBC}0-0.5FUK HealthcarePlatelet mean volume Auto (Bld) [Entitic vol]Ordered By: Gaurav Higuera on 07-56-1308Vwvptbnm mean volume (Bld) [Entitic vol]7.0 fL6.6-10.1[facility] Platelets Auto (Bld) [#/Vol]Ordered By: Gaurav Higuera on 80-89-8226Cmsnvwuet (Bld) [#/Vol]195 10*3/fV870-737WuylnffmhOhiohealth Mansfield HospitalPotassium [Moles/volume] in Serum or PlasmaOrdered By: Gaurav Higuera on 03-31-2023 Potassium [Moles/Vol]4.2 mmol/L3.5-5.1[facility] HealthcareProstate specific Ag [Mass/volume] in Serum or PlasmaOrdered By: Patito Sweet on 03-31-2023 Prostate specific Ag [Mass/Vol]0.650 ng/mL0.000-4.000[facility] HospitalProtein [Mass/volume] in Serum or PlasmaOrdered By: Gaurav Higuera on 86-17-8068Smcuchb [Mass/Vol]6.5 g/dL6.4-8.9[facility] HospitalRBC Auto (Bld) [#/Vol]Ordered By: Gaurav Higuera on 72-36-7608RDK (Bld) [#/Vol]5.25 10*6/uL3.90-5.60[facility] Hospitalerum or plasma albumin/globulin mass ratioOrdered By: Gaurav Higuera on 03-31-2023 Albumin/Globulin [Mass ratio]2.1 {ratio}[facility] Hospitalerum or plasma anion gap determinationOrdered By: Gaurav Higuera on 13-30-4180Jcedy gap [Moles/Vol]11.5 mmol/L6.0-15.0[facility] Hospitalodium [Moles/volume] in Serum or PlasmaOrdered By: Gaurav Higuera on 41-51-4699Fmypcv [Moles/Vol]140 mmol/B664-631WwrntrrccOhiohealth Mansfield HospitalUrate [Mass/volume] in Serum or PlasmaOrdered By: Patito Sweet on 29-07-0245Vqnba [Mass/Vol]7.9 mg/dL 4.4-7.6[facility] HealthcareUrea nitrogen [Mass/volume] in Serum or PlasmaOrdered By: Gaurav Higuera on 88-01-1087Vvha nitrogen [Mass/Vol]17 mg/dL 7-25[facility] HospitalWBC Auto (Bld) [#/Vol]Ordered By: Gaurav Higuera on 50-41-2849VRH (Bld) [#/Vol]9.6 10*3/uL4.1-10.5[facility] HealthcareAlanine aminotransferase [Enzymatic activity/volume] in Serum or PlasmaOrdered By: Gaurav Higuera on 49-11-4187EVN [Catalytic activity/Vol]11 U/L 7-52[facility] HospitalAlbumin [Mass/volume] in Serum or Plasma by Bromocresol green (BCG) dye binding methoOrdered By: Gaurav Higuera on 62-11-6044Bzimaas BCG dye [Mass/Vol]4.1 g/dL3.5-5.7F[facility] HealthcareAlkaline phosphatase [Enzymatic activity/volume] in Serum or PlasmaOrdered By: Gaurav Higuera on 90-23-9468PFS [Catalytic activity/Vol]55 U/X12-888GyfzikgbzOhiohealth Mansfield HospitalAspartate aminotransferase [Enzymatic activity/volume] in Serum or PlasmaOrdered By: Gaurav Higuera on 89-21-4987RDT [Catalytic activity/Vol]8 U/J78-85YahgqotosOhiohealth Mansfield HospitalBasophils Auto (Bld) [#/Vol]Ordered By: Gaurav Higuera on 65-22-0280Ubxwsnbim (Bld) [#/Vol]0.0 10*3/uL 0.0-0.2[facility] HealthcareBasophils/100 WBC Auto (Bld)Ordered By: Gaurav Higuera on 37-80-8632Smfyufzhy/100 WBC (Bld)0.6 %.[facility] HospitalBilirubin.total [Mass/volume] in Serum or PlasmaOrdered By: Gaurav Higuera on 14-05-4594Yzbywaugv [Mass/Vol]0.3 mg/dL0.3-1.0[facility] HospitalCalcium [Mass/volume] in Serum or PlasmaOrdered By: Gaurav Higuera on 47-21-9555Njyjqon [Mass/Vol]8.5 mg/dL8.6-10.3F[facility] HealthcareCarbon dioxide, total [Moles/volume] in Serum or PlasmaOrdered By: Gaurav Higuera on 27-52-1851DG9 [Moles/Vol]25.3 mmol/L21.0-31.0[facility] HospitalChloride [Moles/volume] in Serum or PlasmaOrdered By: Gaurav Higuera on 59-57-1890Hdjfptxp [Moles/Vol]109 mmol/K95-989TewlollacOhiohealth Mansfield HospitalCreatinine [Mass/volume] in Serum or PlasmaOrdered By: Gaurav Higuera on 60-90-4430Zbxffgmuiz [Mass/Vol]1.24 mg/dL0.70-1.30[facility] HospitalEosinophils Auto (Bld) [#/Vol]Ordered By: Gaurav Higuera on 37-83-9706Ksnqpuzbbvy (Bld) [#/Vol]0.1 10*3/uL0.0-0.45[facility] HospitalEosinophils/100 WBC Auto (Bld)Ordered By: Gaurav Higuera on 02-28-2023 Eosinophils/100 WBC (Bld)1.0 %.[facility] HospitalErythrocyte distribution width Auto (RBC) [Ratio]Ordered By: Gaurav Higuera on 02-28-2023 Erythrocyte distribution width (RBC) [Ratio]16.8 %12.0-14.8[facility] HospitalGlobulin Calc (S) [Mass/Vol]Ordered By: Gaurav Higuera on 99-36-2699Xwxndeqm (S) [Mass/Vol]2.4 g/dLOhiohealth Mansfield Hospital Glucose [Mass/volume] in Serum or PlasmaOrdered By: Gaurav Higuera on 02-28-2023 Glucose [Mass/Vol]131 mg/wS87-308OnswzksggOhiohealth Mansfield HospitalComment on above:ADA recommended reference rangeGlucose mean value [Mass/volume] in Blood Estimated from glycated hemoglobinOrdered By: Gaurav Higuera on 32-79-3655Qiefxil glucose Estimated from glycated hemoglobin (Bld) [Mass/Vol]143 mg/dLOhiohealth Mansfield HospitalHematocrit Auto (Bld) [Volume fraction]Ordered By: Gaurav Higuera on 95-61-7453Udmhcalhjp (Bld) [Volume fraction]41.1 %38.8-50.0[facility] HospitalHemoglobin [Mass/volume] in BloodOrdered By: Gaurav Higuera on 07-59-6660Dvbgqatmxu (Bld) [Mass/Vol]13.3 g/dL13.0-17.0[facility] HospitalLaboratory - Hematology and Cell countsOrdered By: Gaurav Higuera on 10-44-1475TcO2c (Bld) [Mass fraction]6.6 %4.3-5.6F[facility] HealthcareComment on above:Increased risk for diabetes: 5.7 - 6.4diabetes: >6.4glycemic control for adults with diabetes: <7.0Leukocytes [#/volume] corrected for nucleated erythrocytes in Blood by Automated counOrdered By: Gaurav Higuera on 37-94-2854PWC corrected for nucl RBC Auto (Bld) [#/Vol]8.4 10*3/uL4.1-10.5FUK HealthcareLymphocytes Auto (Bld) [#/Vol] Ordered By: Gaurav Higuera on 23-53-5586Kslxakmntij (Bld) [#/Vol]2.3 10*3/uL 1.00-4.8[facility] HospitalLymphocytes/100 WBC Auto (Bld)Ordered By: Gaurav Higuera on 23-46-8719Wxjsvlrftio/100 WBC (Bld)27.0 %.[facility] HospitalH Auto (RBC) [Entitic mass]Ordered By: Gaurav Higuera on 48-27-7322IUD (RBC) [Entitic mass]24.8 pg27.5-35.2FUK HealthcareMCHC Auto (RBC) [Mass/Vol]Ordered By: Gaurav Higuera on 22-81-9541JLMD (RBC) [Mass/Vol]32.4 g/dL32.5-35.6FUK HealthcareMCV Auto (RBC) [Entitic vol]Ordered By: Gaurav Higuera on 68-31-4398YVF (RBC) [Entitic vol]76.7 fL83.5-101[facility] HospitalMonocytes Auto (Bld) [#/Vol] Ordered By: Gaurav Higuera on 05-82-2659Gyuzryeou (Bld) [#/Vol]0.9 10*3/uL0.0-0.8 [facility] HospitalMonocytes/100 WBC Auto (Bld)Ordered By: Gaurav Higuera on 01-92-5823Ycfbszmwr/100 WBC (Bld)10.1 %.[facility] HospitalNeutrophils Auto (Bld) [#/Vol]Ordered By: Gaurav Higuera on 02-28-2023 Neutrophils (Bld) [#/Vol]5.2 10*3/uL1.8-7.7[facility] Neutrophils/100 WBC Auto (Bld)Ordered By: Gaurav Higuera on 02-28-2023 Neutrophils/100 WBC (Bld)61.3 %.[facility] HospitalNo Panel InformationOrdered By: Gaurav Higuera on 16-23-6810Uxmtcytmf GFR (CKD-EPI)> 60.0 mL/MinOhiohealth Mansfield HospitalPharmacy Creatinine Clearance (ChemN/A [facility] HospitalNucleated erythrocytes [Presence] in Blood by Automated countOrdered By: Gaurav Higuera on 09-67-8678Gyqdnxpar RBC Auto Ql (Bld)0.1 /100{WBC}0-0.5FUK HealthcarePlatelet mean volume Auto (Bld) [Entitic vol]Ordered By: Gaurav Higuera on 02-34-6425Xvtmrulc mean volume (Bld) [Entitic vol]7.2 fL6.6-10.1[facility] Platelets Auto (Bld) [#/Vol]Ordered By: Gaurav Higuera on 07-69-9095Fgdcopgqm (Bld) [#/Vol]239 10*3/tS272-752XiyhmjwtpOhiohealth Mansfield HospitalPotassium [Moles/volume] in Serum or PlasmaOrdered By: Gaurav Higuera on 02-28-2023 Potassium [Moles/Vol]3.9 mmol/L3.5-5.1F[facility] HealthcareProtein [Mass/volume] in Serum or PlasmaOrdered By: Gaurav Higuera on 33-25-9171Bieozkj [Mass/Vol]6.5 g/dL6.4-8.9[facility] HospitalRBC Auto (Bld) [#/Vol] Ordered By: Gaurav Higuera on 47-73-9592FGG (Bld) [#/Vol]5.36 10*6/uL3.90-5.60 [facility] Hospitalerum or plasma albumin/globulin mass ratio Ordered By: Gaurav Higuera on 05-71-4332Byzcstw/Globulin [Mass ratio]1.7 {ratio} [facility] Hospitalerum or plasma anion gap determinationOrdered By: Gaurav Higuera on 39-53-9626Vefwx gap [Moles/Vol]9.6 mmol/L6.0-15.0[facility] Hospitalodium [Moles/volume] in Serum or PlasmaOrdered By: Gaurav Higuera on 21-10-6253Funvgi [Moles/Vol]140 mmol/Z556-967GfzvqagxrOhiohealth Mansfield HospitalUrea nitrogen [Mass/volume] in Serum or PlasmaOrdered By: Gaurav Higuera on 52-12-9419Chgy nitrogen [Mass/Vol]12 mg/dL7-25[facility] HospitalWBC Auto (Bld) [#/Vol]Ordered By: Gaurav Higuera on 09-67-0079BCB (Bld) [#/Vol]8.4 10*3/uL4.1-10.5FUK HealthcareCALCULI, URINARYon ,8 DihydroxyadenineNoMercy Health – The Jewish Hospital HospitalComment on above:Performed By: #### CALCULI #### [facility] [address] [address] [address] Peter KyleAmmonium Acid UrateNormalLake County Memorial Hospital - WestComment on above: Performed By: #### CALCULI #### [facility] [address] [address] [address] Peter yKleBilirubin Ql (U)[facility] HospitalComment on above: Performed By: #### CALCULI #### [facility] [address] [address] [address] Peter Masters Oxalate Lssunqmqr95 %[facility] HospitalComment on above:Performed By: #### CALCULI #### [facility] [address] [address] [address] Peter MastesrHPO4 (Brushite)[facility] Jewish HospitalComment on above: Performed By: #### CALCULI #### [facility] [address] [address] [address] Peter Jimenezium BilirubinateNormalLake County Memorial Hospital - WestComment on above: Performed By: #### CALCULI #### [facility] [address] [address] [address] Peter Jimenezium CarbonateNoGeorgetown Behavioral HospitalComment on above: Performed By: #### CALCULI #### [facility] [address] [address] [address] Peter Jimenezium Oxalate Zyelvezpzdu92 %[facility] HospitalComment on above:Performed By: #### CALCULI #### [facility] [address] [address] [address] Peter Jimenezium PalmitateThe [facility] on above: Performed By: #### CALCULI #### [facility] [address] [address] [address] Peter Jimenezium PhosphateThe Surgical Hospital [facility] Southwoods on above: Performed By: #### CALCULI #### [facility] [address] [address] [address] Peter Jimenezium StearateNormalLake County Memorial Hospital - WestCommclaren lapeer region on above: Performed By: #### CALCULI #### [facility] [address] [address] [address] Peter KyleCarbonate ApatiteThe Surgical Hospital [facility] Southwoods on above: Performed By: #### CALCULI #### [facility] [address] [address] [address] Peter KyleCellular MaterialThe Surgical Hospital [facility]woods on above: Performed By: #### CALCULI #### [facility] [address] [address] [address] Peter KyleCholesterolThe Surgical Hospital [facility] Southwoods on above:Performed By: #### CALCULI #### [facility] [address] [address] [address] Peter Heard ([facility] on above: Performed By: #### CALCULI #### [facility] [address] [address] [address] Peter WalkerHolzer Medical Center – Jackson on above:Performed By: #### CALCULI #### [facility] [address] [address] [address] Peter WadeProtestant Hospital on above:Result Comment: Calculus received wet. Wet calculi must be dried before analysis, which delays reporting of results. Leaving calculi wet (such as water, saline, blood, urine) may lead to changes in composition.Performed By: #### CALCULI #### [facility] [address] [address] [address] Peter Wade:CommentThe Surgical Hospital [facility]woods on above:Result Comment: Physician questions regarding Calculi Analysis contact LabChristian [facility] at: [phone].Performed By: #### CALCULI #### [facility] [address] [place] [address] Dr. Peter WalkerpositionComHolzer Medical Center – Jackson on above: Result Comment: Percentage (Represents the % composition)Performed By: #### CALCULI #### [facility] [address] [place] [address] Dr. Peter KyleCystineMercy Health – The Jewish HospitalCommclaren lapeer region on above:Performed By: #### CALCULI #### [facility] [address] [place] [address] Dr. Peter Akersmer:CommentThe [facility] on above: Result Comment: This test was developed and its performance characteristics determined by [facility]. It has not been cleared or approved by the Food and Drug Administration.Performed By: #### CALCULI #### [facility] [address] [place] [address] Dr. Peter Gonzalesied BloodMercy Health – The Jewish HospitalCommclaren lapeer region on above:Performed By: #### CALCULI #### [facility] [address] [place] [address] Dr. Peter KylePeak Behavioral Health Services or TriHealthCommclaren lapeer region on above: Performed By: #### CALCULI #### [facility] [address] [place] [address] Dr. Peter KyleHydroxyapatiteMercy Health – The Jewish HospitalCommclaren lapeer region on above: Performed By: #### CALCULI #### [facility] [address] [place] [address] Dr. Peter KyleMg NH4 PO4 (Struvite)[facility] Jewish HospitalComment on above: Performed By: #### CALCULI #### [facility] [address] [place] [address] Dr. Peter KyleMgHPO4 (Newberyite)[facility] HospitalComment on above: Performed By: #### CALCULI #### [facility] [address] [address] [address] Peter Lopez component(s)[facility] on above: Performed By: #### CALCULI #### [facility] [address] [address] [address] Peter Barba.[facility] on above:Performed By: #### CALCULI #### [facility] [address] [address] [address] Peter SalvadorThe [facility] on above:Result Comment: Photograph will follow under a separate coverPerformed By: #### CALCULI #### [facility] [address] [address] [address] Peter Gomez note:CommentThe Surgical Hospital at Southwoods on above: Result Comment: Calculi report will follow via computer, mail or freelance displayer delivery.Performed By: #### CALCULI #### [facility] [address] [place] [address] Dr. [address] DoshiIrigzSmvb0x5LsoielDck[address] on above:Result Comment: Multiple pieces received. Dimensions of the largest piece reported.Performed By: #### CALCULI #### [facility] [address] [place] [address] Dr. Peter Lord UrTrinity Health System West Campus on above: Performed By: #### CALCULI #### [facility] [address] [place] [address] Dr. Peter LewisThe [facility] on above:Result Comment: Left KidneyPerformed By: #### CALCULI #### [facility] [address] [address] [address] Peter LuisKeenan Private Hospital on above:Performed By: #### CALCULI #### [facility] [address] [place] [address] Dr. Peter Allison [facility] on above:Performed By: #### CALCULI #### [facility] [address] [address] [address] Peter KyleUric Acid DihydrateNormalSCCI Hospital Lima on above: Performed By: #### CALCULI #### [facility] [address] [address] [address] Peter Jain61 mgMercy Health – The Jewish HospitalCommclaren lapeer region on above:Performed By: #### CALCULI #### [facility] [address] [address] [address] Peter DotynthineThe Surgical Hospital [facility] on above:Performed By: #### CALCULI #### [facility] [address] [address] [address] Peter Duarte, URINARYon ,8 DihydroxyadenineThe Surgical Hospital at Southwoods on above:Performed By: #### CBC #### [facility] [address] [address] [address] Peter KyleAmmonium Acid UrateNFostoria City Hospital on above: Performed By: #### CBC #### [facility] [address] [address] [address] Peter Mckeonirubin Ql (U)[facility] on above: Performed By: #### CBC #### [facility] [address] [address] [address] Peter Masters Oxalate Lnvruzlhc11 %[facility] on above:Performed By: #### CBC #### [facility] [address] [address] [address] Peter MastersHPO4 (Brushite)[facility] on above: Performed By: #### CBC #### [facility] [address] [address] [address] Peter Jimenezium BilirubinateNFostoria City Hospital on above: Performed By: #### CBC #### [facility] [address] [address] [address] Peter Jimenezium CarbonateThe Surgical Hospital [facility] on above: Performed By: #### CBC #### [facility] [address] [address] [address] Peter Jimenezium Oxalate Mqqpzpidlat61 %NormalSCCI Hospital Lima on above:Performed By: #### CBC #### [facility] [address] [address] [address] Peter Jimenezium PalmitateMercy Health – The Jewish HospitalCommclaren lapeer region on above: Performed By: #### CBC #### [facility] [address] [address] [address] Peter Jimenezium PhosphateThe Surgical Hospital [facility] on above: Performed By: #### CBC #### [facility] [address] [address] [address] Peter Sharpe StearateNormalSCCI Hospital [place]ima on above: Performed By: #### CBC #### [facility] Laboratory [address] [address] [address] Peter KyleCarbonate ApatiteThe Surgical Hospital at Southwoods on above: Performed By: #### CBC #### [facility] Laboratory [address] [address] [address] Peter Wongular MaterialThe [facility]woods on above: Performed By: #### CBC #### [facility] Laboratory [address] [address] [address] Peter KyleCholesterolThe [facility] on above:Performed By: #### CBC #### [facility] Laboratory [address] [address] [address] Peter Heard (U)BrownThe [facility] on above: Performed By: #### CBC #### [facility] Laboratory [address] [address] [address] Peter WalkermentThe [facility] on above:Performed By: #### CBC #### [facility] Laboratory [address] [address] [address] Peter KyleCommilvia:CommentNormalThe South Pasadena HospitalComment on above:Result Comment: Physician questions regarding Calculi Analysis contact [facility] at: [phone].Performed By: #### CBC #### [facility] Laboratory [address] [place] [address] Dr. Peter WalkerpositionComHolzer Medical Center – Jackson on above: Result Comment: Percentage (Represents the % composition)Performed By: #### CBC #### [facility] Laboratory [address] [place] [address] Dr. Peter KyleCystineMercy Health – The Jewish HospitalComment on above:Performed By: #### CBC #### [facility] Laboratory [address] [place] [address] Dr. Peter Akersmer:CommentThe [facility] on above: Result Comment: This test was developed and its performance characteristics determined by [facility]. It has not been cleared or approved by the Food and Drug Administration.Performed By: #### CBC #### [facility] Laboratory [address] [place] [address] Dr. Peter Gonzalesied BloodThe [facility] on above:Performed By: #### CBC #### [facility] Laboratory [address] [place] [address] Dr. Peter KyleDrug or MetaboliteThe [facility] on above: Performed By: #### CBC #### [facility] Laboratory [address] [place] [address] Dr. Peter KyleHydroxyapatiteThe [facility] on above: Performed By: #### CBC #### [facility] Laboratory [address] [place] [address] Dr. Peter KyleMg NH4 PO4 (Struvite)[facility] Hospitalment on above: Performed By: #### CBC #### [facility] Laboratory [address] [place] [address] Dr. Peter KyleMgHPO4 (Newberyite)NormalLake County Memorial Hospital - WestComment on above: Performed By: #### CBC #### [facility] Laboratory [address] [place] [address] Dr. Yilan ChangOther component(s)[facility] on above: Performed By: #### CBC #### [facility] Laboratory [address] [address] [address] Peter Barba.[facility] on above:Performed By: #### CBC #### [facility] Laboratory [address] [address] [address] Peter SalvadorThe [facility] on above:Result Comment: Photograph will follow under a separate coverPerformed By: #### CBC #### [facility] Laboratory [address] [address] [address] Peter Gomez note:CommentThe [facility] Hospital [facility] on above: Result Comment: Calculi report will follow via computer, mail or freelance displayer delivery.Performed By: #### CBC #### [facility] Laboratory [address] [address] [address] TamezPbmfnSigx0y5EatplmIun[address] on above:Result Comment: Multiple pieces received. Dimensions of the largest piece reported.Performed By: #### CBC #### [facility] Laboratory [address] [address] [address] Peter Gilum Acid UrateNFostoria City Hospital on above: Performed By: #### CBC #### [facility] Laboratory [address] [address] [address] Peter LewisThe [facility] on above:Result Comment: Not providedPerformed By: #### CBC #### [facility] Laboratory [address] [address] [address] Peter LuisneThe [facility] on above:Performed By: #### CBC #### [facility] Laboratory [address] [address] [address] Peter Allison AcidThe Surgical Hospital at [facility]woods on above:Performed By: #### CBC #### [facility] Laboratory [address] [address] [address] Peter Allison Acid DihydrateNormalThe Ela HospitalComment on above: Performed By: #### CBC #### [facility] Laboratory [address] [address] [address] [place], [place] [address]Comment on above:Performed By: #### CBC #### [facility] Laboratory [address] [address] [address] Peter DotynthineMercy Health – The Jewish HospitalComment on above:Performed By: #### CBC #### [facility] Laboratory [address] [address] [address] Peter Bates AUTO DIFFon 29-77-9312JTNZ #0.1 103/ulNormal0.0-0.1The [facility] on above:Performed By: #### CBC #### [facility] Laboratory [address] [address] [address] Peter KyleBasophils/100 WBC (Bld)0.8 %Normal0.2-2.0The [facility] Comment on above:Performed By: #### CBC #### [facility] Laboratory [address] [address] [address] Peter Plaza #0.4 103/ulNormal0.0-0.7The [facility] on above: Performed By: #### CBC #### [facility] Laboratory [address] [place] [address] Dr. Peter Changosinophils/100 WBC (Bld)4.6 %Normal0.9-7.0The [facility] Comment on above:Performed By: #### CBC #### [facility] Laboratory [address] [place] [address] Dr. Peter Changrythrocyte distribution width (RBC) [Ratio]16.1 %Critically high 11.0-15.0The [facility] Campusment on above:Performed By: #### CBC #### [facility] Laboratory [address] [place] [address] Dr. Peter KyleHematocrit (Bld) [Volume fraction]42.6 %Ynirvd53.0-54.0The [facility] Medical CenterComment on above:Performed By: #### CBC #### [facility] Laboratory [address] [address] [address] Peter KyleHemoglobin (Bld) [Mass/Vol]13.9 g/dLCritically low14.0-18.0The [facility] CenterComment on above:Performed By: #### CBC #### [facility] Laboratory [address] [address] [address] Peter Ferguson #0.09 10e3/ulCritically high0.00-0.03The [facility] Comment on above:Performed By: #### CBC #### [facility] Laboratory [address] [address] [address] Peter Ferguson %1.2 %Critically high0.0-0.5The [facility] CenterComment on above:Performed By: #### CBC #### [facility] Laboratory [address] [address] [address] Peter Barnard #2.2 103/ulNormal1.2-3.8The [facility] CenterComment on above:Performed By: #### CBC #### [facility] Laboratory [address] [address] [address] Peter Gaminohocytes/100 WBC (Bld)27.5 %Emhwvk37.5-60.0The [facility] Campusment on above:Performed By: #### CBC #### [facility] Laboratory [address] [address] [address] Peter BanerjeeUAL DIFF REQNONormalThe [facility] CenterComment on above: Performed By: #### CBC #### [facility] Laboratory [address] [address] [address] Peter Bhagat (RBC) [Entitic mass]24.2 pgCritically low25.9-34.0The [facility] CenterComment on above:Performed By: #### CBC #### [facility] Laboratory [address] [address] [address] Peter Medina (RBC) [Mass/Vol]32.6 g/cJJacvzj39.9-35.2The Ela HospitalComment on above:Performed By: #### CBC #### [facility] Laboratory [address] [address] [address] Peter Townsend (RBC) [Entitic vol]74.1 fLCritically low80.0-94.0The [facility] CenterComment on above:Performed By: #### CBC #### [facility] Laboratory [address] [place] [address] Dr. Peter Obando #0.8 103/ulNormal0.3-0.8The [facility] CenterComment on above:Performed By: #### CBC #### [facility] Laboratory [address] [place] [address] Dr. Peter Cervantesocytes/100 WBC (Bld)10.5 %Normal1.7-12.0The [facility] Comment on above:Performed By: #### CBC #### [facility] Laboratory [address] [place] [address] Dr. Peter Calloway #4.3 103/ulNormal1.4-6.5The [facility] CenterComment on above:Performed By: #### CBC #### [facility] Laboratory [address] [place] [address] Dr. Peter Escalanteutrophils/100 WBC (Bld)55.4 %Dbamrt76.0-75.0The [facility] CenterComment on above:Performed By: #### CBC #### [facility] Laboratory [address] [place] [address] Dr. Peter Adenlet mean volume (Bld) [Entitic vol]8.6 fLCritically low 9.5-13.5The [facility] CenterComment on above:Performed By: #### CBC #### [facility] Laboratory [address] [place] [address] Dr. Peter FlorenceT214 103/xyHpqzuw895-133Crj [facility] CenterComment on above: Performed By: #### CBC #### [facility] Laboratory [address] [place] [address] Dr. Peter KyleRBC5.75 106/ulNormal4.70-6.10The [facility] CenterComment on above:Performed By: #### CBC #### [facility] Laboratory [address] [address] [address] Peter KyleWBC7.8 103/ulNormal4.0-11.0The [facility] CenterComment on above: Performed By: #### CBC #### [facility] Laboratory [address] [address] [address] Peter KylePROF CHEM 8 (BAS METB)on 27-54-8348Lfttp gap [Moles/Vol]14.2 mmol/LNormalThe [facility] Medical CenterComment on above:Performed By: #### BMP #### [facility] Laboratory [address] [place] [address] Dr. Peter KyleCalcium [Mass/Vol]8.9 mg/dLNormal8.5-10.1The [facility] Comment on above:Performed By: #### BMP #### [facility] Laboratory [address] [place] [address] Dr. Peter KyleChloride [Moles/Vol]106 mmol/SIuqbpc79-652Yrm [facility] Comment on above:Performed By: #### BMP #### [facility] Laboratory [address] [place] [address] Dr. Peter KyleCO2 [Moles/Vol]26.9 mmol/ISkdpxa23.0-32.0The [facility] Comment on above:Performed By: #### BMP #### [facility] Laboratory [address] [place] [address] Dr. Peter KyleCreatinine [Mass/Vol]1.03 mg/dLNormal0.70-1.30The [facility] CenterComment on above:Performed By: #### BMP #### [facility] Laboratory [address] [place] [address] Dr. Peter ChangGFR-AF MACEDONIAN>60Normal>=60The [facility] CenterComment on above:Performed By: #### BMP #### [facility] Laboratory [address] [place] [address] Dr. Peter ChangGFR-NON AF MACEDONIAN>60Normal>=60The [facility] CenterComment on above:Performed By: #### BMP #### [facility] Laboratory [address] [address] [address] Peter KyleGlucose [Mass/Vol]111 mg/dLCritically wtqv37-277Wvs [facility] Campusment on above:Performed By: #### BMP #### [facility] Laboratory [address] [address] [address] Peter KylePotassium [Moles/Vol]4.1 mmol/LNormal3.5-5.1[facility] Comment on above:Performed By: #### BMP #### [facility] Laboratory [address] [address] [address] Peter KyleSodium [Moles/Vol]143 mmol/XVgqbxi175-867UevLake County Memorial Hospital - West Comment on above:Performed By: #### BMP #### [facility] Laboratory [address] [place] [address] Dr. Peter KyleUrea nitrogen [Mass/Vol]8.0 mg/dLNormal7.0-18.0[facility] - WestComment on above:Performed By: #### BMP #### [facility] Laboratory [address] [place] [address] Dr. Peter Saba nitrogen/Creatinine [Mass ratio]7.8 mg/mgNoGeorgetown Behavioral HospitalComment on above:Performed By: #### BMP #### [facility] Laboratory [address] [place] [address] Dr. Peter KylePROTIMEon 49-00-4108CFE Coag (PPP) [Relative time]1.01 {INR} NormalLake County Memorial Hospital - WestComment on above:Performed By: #### PTT, PT #### [facility] Laboratory [address] [place] [address] Dr. Peter Spence GUIDELINESSEE BELOWMercy Health – The Jewish HospitalComment on above:Result Comment: DESIRED INR: 2.0 - 3.0 CONDITIONS NOT LISTED BELOW 2.5 - 3.5 FOR PROSTHETIC HEART VALVE REPLACEMENT 2.5 - 3.5 RECURRENT THROMBOSIS Performed By: #### PTT, PT #### [facility] Laboratory [address] [place], [place] [address] Dr. Peter Escobar Coag (PPP) [Time]10.7 sNormal9.0-11.6The [facility] Comment on above:Performed By: #### PTT, PT #### [facility] Laboratory [address] [place] [address] [address] [address] Peter EscobarTon 52-01-5482kJQV Coag (Bld) [Time]29.2 fMozsdn52.3-36.2[facility] Hospital - WestComment on above:Performed By: #### PTT, PT #### [facility] Laboratory [address], [place] [address] Dr. Peter Roblero KIDNEYSon 68-99-9091PJ KIDNEYSEXAMINATION: US KIDNEYS HISTORY: Contusion of kidney COMPARISON: No relevant [...] Electronically authenticated by: MYRA SHAFFER Date: 2022-12-14 17:38NormalThSycamore Medical CenterXR KUB 1 VIEWon 33-27-5182XL KUB 1 VIEWEXAMINATION: XR KUB 1 VIEW HISTORY: Kidney stone [...] Electronically authenticated by: MYRA SHAFFER Date: 2022-12-14 18:10[facility] Jewish HospitalAmmonium urate crystals detection in stone by infrared spectroscopyOrdered By: Patito Sweet on 61-18-9520Xrjgpfwx urate crystals Infrared spectroscopy Ql (Stone)N/[facility] HospitalCalcium bilirubinate measurementOrdered By: Patito Sweet on 50-14-1672Yenbzkb bilirubinate (Stone) [Mass fraction]N/[facility] HospitalCalcium carbonate measurement Ordered By: Patito Sweet on 55-77-3693Xoljbtz carbonate (Stone) [Mass fraction]N/A [facility] HospitalCalcium hydrogen phosphate dihydrate/Total in StoneOrdered By: Patito Sweet on 33-19-3853Tetrvnb hydrogen phosphate dihydrate (Stone) [Mass fraction]N/[facility] HospitalCalcium oxalate dihydrate crystals detection in stone by infrared spectroscopyOrdered By: Patito Sweet on 25-32-1956Ovefhqi oxalate dihydrate crystals Infrared spectroscopy Ql (Stone)N/[facility] HospitalCalcium oxalate monohydrate/Total in StoneOrdered By: Patito Sweet on 07-60-2136Zabpdcm oxalate monohydrate (Stone) [Mass fraction]100 %.Ohio[facility] HospitalCalcium phosphate measurementOrdered By: Patito Sweet on 13-34-3328Igldrqb phosphate (Stone) [Mass fraction]N/[facility] HospitalCalculus analysis interpretation in stoneOrdered By: Patito Sweet on 09-52-5767Ctgmemij analysis [Interp]N/[facility] HospitalCalculus analysis [Interp]See comment.[facility] HospitalComment on above:Calculus received wet. Wet calculi must be dried beforeanalysis, which delays reporting of results.Leaving calculiwet (such as water, saline, blood, urine) may lead tochanges in composition.Physician questions regarding Calculi Analysis contactGreenwood County HospitalCorp at: [phone].Calculi report will follow via computer, mail or courierdelivery.Calculus analysis with calculus photography interpretation in stoneOrdered By: Patito Sweet on 11-29-2022 Calculus analysis with calculus photography [Interp]See comment.[facility] HospitalComment on above:Photograph will follow under a separate coverCellular material measurement in stone by estimated (mass/mass)Ordered By: Patito Sweet on 04-23-5146Hwvslxhb material Est (Stone) [Mass/Mass]N/[facility] HospitalCholesterol/Total in StoneOrdered By: Patito Sweet on 83-87-7893Qrjrxwavhft (Stone) [Mass fraction]N/[facility] HospitalComposition of stoneOrdered By: Patito Sweet on 20-50-8302Qsgoifaxqtc Nom (Stone)See comment.[facility] HospitalComment on above:Percentage (Represents the % composition)Creatinine and Glomerular filtration rate.predicted panel (S/P/Bld)Ordered By: Myra Lynne on 60-16-6296Chpaqtgvgz [Mass/Vol]1.11 mg/dL0.64-1.27[facility] HospitalCystine measurementOrdered By: Patito Sweet on 35-57-7294Bkzntbc (Unsp spec) [Moles/Vol]N/A [facility] HospitalDetermination of color of calculusOrdered By: Patito Sweet on 62-21-6823Xgnzk (Stone)Brown.[facility] Estimated glomerular filtration rate (GFR) non- AmericanOrdered By: Myra Lynne on 93-27-3206UHO/1.73 sq M.predicted among non-blacks MDRD (S/P/Bld) [Vol rate/Area]> 60 mL/MinOhiohealth Mansfield HospitalHydroxyapatite [Energy Difference] in 24 hour UrineOrdered By: Patito Sweet on 11-29-2022 Hydroxyapatite (24H U) [Energy diff]/[facility] Measurement of proportion of calculus composed of dried blood (mass/mass)Ordered By: Patito Sweet on 83-66-4844Dxmcl.dried (Stone) [Mass fraction]N/AFirelands Regional Medical CenterNewberyite/Total in StoneOrdered By: Patito Sweet on 70-31-2097Rqjrrbpkpq (Stone) [Mass fraction]N/[facility] No Panel InformationOrdered By: Myra Lynne on 55-78-2364Pitryxqow GFR ()> 60 mL/MinOhiohealth Mansfield HospitalComment on above: GFR estimated reference range: According to KDOQI guidelines, <60 ml/min/1.73m2 is sufficient todiagnose a patient with chronic kidney disease.Pharmacy Creatinine Clearance (Qqpd239.60[facility] HospitalNo Panel InformationOrdered By: Patito Sweet on 85-74-5014Afdgo 2,8 DihydroxyadenineN/A [facility] Hospitaltone Analysis DisclaimerSee comment.[facility] HospitalComment on above:This test was developed and its performance characteristicsdetermined by [employer]. It has not been cleared or approvedby the Food and Drug Administration.Performed at: [facility] [address] [place] [address] Dr [place], [place] [id number] Director: Francesco Martinez PhD, Phone: [phone] BilirubinateN/[facility] Hospitaltone Calcium PalmitateN/[facility] Hospitaltone Calcium StearateN/[facility] Hospitaltone Carbonate ApatiteN/[facility] Hospitaltone Drug or MetaboliteN/[facility] Hospitaltone Other ConstituentN/[facility] Hospitaltone Xanthine N/[facility] County Hospitalerum or plasma anion gap determination Ordered By: Myra Lynne on 04-81-6086Gpbbk gap [Moles/Vol]12.4 mmol/L6.0-15.0 [facility] Hospitalerum or plasma calcium measurement (mass/volume)Ordered By: Myra Lynne on 84-68-2946Msnrkft [Mass/Vol]8.9 mg/dL 8.2-10.2FTrinity Health Systemerum or plasma chloride measurement (moles/volume)Ordered By: Myra Lynne on 12-51-3224Awhbtypg [Moles/Vol]106 mmol/X14-799JlooigkvbOhioHealth Van Wert Hospitalerum or plasma glucose measurement (mass/volume)Ordered By: Myra Lynne on 14-16-2298Tizewwh [Mass/Vol]111 mg/dL 70-100Ohio[facility] Mansfield HospitalComment on above:ADA recommended reference rangeRandom Glucose Reference Range is dependent on time and content of last meal. Glucose of more than 200 mg/dL in a nonstressed, ambulatory subject supports the diagnosisof Diabetes Mellitus.Serum or plasma potassium measurement (moles/volume)Ordered By: Myra Lynne on 72-45-3868Gzbsnpouv [Moles/Vol]3.8 mmol/L3.5-5.1FTrinity Health Systemerum or plasma sodium measurement (moles/volume)Ordered By: Myra Lynne on 22-12-6948Zxtpcw [Moles/Vol]140 mmol/S367-434UuxnahpjyOhioHealth Van Wert Hospitalerum or plasma total carbon dioxide measurement (moles/volume)Ordered By: Myra Lynne on 79-07-5884TD5 [Moles/Vol]25.4 mmol/L22.0-30.0[facility] Serum or plasma urea nitrogen measurement (mass/volume)Ordered By: Myra Lynne on 52-04-2736Fddy nitrogen [Mass/Vol]8 mg/dL9-23[facility] Hospitalize [Entitic volume] of StoneOrdered By: Patito Sweet on 58-93-4616Uhfz (Stone) [Entitic vol]3x4 mm.[facility] HospitalComment on above: Multiple pieces received. Dimensions of the largest piecereported.Sodium urate crystals detection in stone by infrared spectroscopyOrdered By: Patito Sweet on 09-15-3722Dyintl urate crystals Infrared spectroscopy Ql (Stone)[facility] Medical Centerpecimen source subject [Type]Ordered By: Patito Sweet on 39-93-2924Ofcmoqlg source subject NomSee comment.[facility] HospitalComment on above:Left KidneyTriamterene measurement in calculusOrdered By: Patito Sweet on 80-03-0653Ajaleyligte (Stone) [Mass fraction][facility] County HospitalTriple phosphate/Total in StoneOrdered By: Patito Sweet on 11-29-2022 Triple phosphate (Stone) [Mass fraction][facility] County HospitalUric acid dihydrate crystals detection in stone by infrared spectroscopyOrdered By: Patito Sweet on 39-90-9199Sdxcq dihydrate crystals Infrared spectroscopy Ql (Stone) N/AFUK HealthcareActivated partial thromboplastin time (aPTT) in platelet poor plasma by coagulation aOrdered By: Patito Sweet on 07-34-6457tMXO Coag (PPP) [Time]26.1 s25.1-36.5FUK HealthcareAerobic culture Ordered By: Patito Sweet on 86-79-6010Aerxsmwc identified Aer cx Nom (Unsp spec)No Growth 2 [facility] HealthBacteria identified Aer cx Nom (Unsp spec)No Growth 2 [facility] HealthAnaerobic culture Ordered By: Patito Sweet on 76-31-5047Uatxiaag identified Anaer cx Nom (Unsp spec) No Anaerobes Isolated 3 [facility] HealthBacteria identified Anaer cx Nom (Unsp spec)No Anaerobes Isolated 3 [facility] HealthGram stain for investigation of transfusion reactionOrdered By: Patito Sweet on 38-42-8711Dwkcdrzpysf observation Gram stain Nom (Unsp spec)[facility] HospitalMicroscopic observation Gram stain Nom (Unsp spec) [facility] HospitalLaboratory - CoagulationOrdered By: Patito Sweet on 17-15-8831LC Coag (PPP) [Time]12.5 s9.0-12.9[facility] Platelet poor plasma international normalized ratio (INR) by coagulation assay (relatOrdered By: Patito Sweet on 79-66-2801PWA Coag (PPP) [Relative time]1.1 {INR} [facility] HospitalComment on above:INR Therapeutic Range A) Pre- and Peroperative OAT started two weeks before surgery. NOT HIP SURGERY: 1.5 - 2.5 HIP SURGERY: 2 - 3B) Primary and secondary prevention of venous THROMBOSIS: 2 - 3C) Active venous thrombosis, pulmonary embolismand prevention of recurrent venous thrombosis: 2 - 3D) Prevention of arterial thromboembolismincluding patients with mechanical heart valves: 3 - 4.5Platelets Auto (Bld) [#/Vol] Ordered By: Patito Sweet on 76-44-5194Iiskwkxut (Bld) [#/Vol]268 10*3/sK449-354 [facility] HospitalCBC AUTO DIFFon 40-95-1629GMQZ #0.1 103/ul Normal0.0-0.1The [facility] CenterComment on above:Performed By: #### CBC #### [facility] Laboratory [address] [address] [address] Peter KyleBasophils/100 WBC (Bld)0.6 %Normal0.2-2.0The [facility] Comment on above:Performed By: #### CBC #### [facility] Laboratory [address] [address] [address] Peter Plaza #0.2 103/ulNormal0.0-0.7The [facility] CenterComment on above: Performed By: #### CBC #### [facility] Laboratory [address] [place] [address] Dr. Peter Changosinophils/100 WBC (Bld)2.0 %Normal0.9-7.0The [facility] Center Comment on above:Performed By: #### CBC #### [facility] [address] [address] [address] Peter Changrythrocyte distribution width (RBC) [Ratio]15.9 %Critically high 11.0-15.0The [facility] CenterComment on above:Performed By: #### CBC #### [facility] [address] [place] [address] Dr. Peter KyleHematocrit (Bld) [Volume fraction]37.0 %Critically low42.0-54.0 The [facility] CenterComment on above:Performed By: #### CBC #### [facility] [address] [address] [address] Peter KyleHemoglobin (Bld) [Mass/Vol]11.9 g/dLCritically low14.0-18.0The [facility] CenterComment on above:Performed By: #### CBC #### [facility] [address] [place] [address] Dr. Peter Ferguson #0.06 10e3/ulCritically high0.00-0.03The [facility] Comment on above:Performed By: #### CBC #### [facility] [address] [address] [address] Peter Ferguson %0.6 %Critically high0.0-0.5The [facility] CenterComment on above:Performed By: #### CBC #### [facility] [address] [address] [address] Peter Barnard #2.5 103/ulNormal1.2-3.8The [facility] CenterComment on above:Performed By: #### CBC #### [facility] [address] [place] [address] Dr. Peter Gaminohocytes/100 WBC (Bld)25.7 %Exhksk67.5-60.0The [facility] CenterComment on above:Performed By: #### CBC #### [facility] [address] [place] [address] Dr. Peter Sanchez DIFF REQNONormalThe [facility] CenterComment on above: Performed By: #### CBC #### [facility] [address] [place] [address] Dr. Peter Bhagat (RBC) [Entitic mass]24.3 pgCritically low25.9-34.0The [facility] CenterComment on above:Performed By: #### CBC #### [facility] [address] [place] [address] Dr. Peter Medina (RBC) [Mass/Vol]32.2 g/qKTkzcgv69.9-35.2The [facility] CenterComment on above:Performed By: #### CBC #### [facility] [address] [place] [address] Dr. Peter Medina (RBC) [Entitic vol]75.5 fLCritically low80.0-94.0The [facility] CenterComment on above:Performed By: #### CBC #### [facility] [address] [place] [address] Dr. Peter Obando #0.9 103/ulCritically high0.3-0.8The [facility] Comment on above:Performed By: #### CBC #### [facility] [address] [address] [address] Peter Cervantesocytes/100 WBC (Bld)9.2 %Normal1.7-12.0The [facility] Comment on above:Performed By: #### CBC #### [facility] [address] [place] [address] Dr. Peter EscalanteUT #5.9 103/ulNormal1.4-6.5The [facility] CenterComment on above:Performed By: #### CBC #### [facility] [address] [place] [address] Dr. Peter Escalanteutrophils/100 WBC (Bld)61.9 %Eougtd23.0-75.0The [facility] CenterComment on above:Performed By: #### CBC #### [facility] [address] [place] [address] Dr. Peter KylePlatelet mean volume (Bld) [Entitic vol]8.7 fLCritically low 9.5-13.5The [facility] CenterComment on above:Performed By: #### CBC #### [facility] [address] [place] [address] Dr. Peter KylePLT276 103/gqKnhnug681-862Ehg [facility] CenterComment on above: Performed By: #### CBC #### [facility] [address] [place] [address] Dr. Peter KyleRBC4.90 106/ulNormal4.70-6.10The [facility] CenterComment on above:Performed By: #### CBC #### [facility] [address] [place] [address] Dr. Peter KlyeWBC9.6 103/ulNormal4.0-11.0The [facility] CenterComment on above: Performed By: #### CBC #### [facility] [address] [place] [address] Dr. Peter Roblero KIDNEYSon 84-42-7072DE KIDNEYSEXAM: Renal ultrasound: HISTORY: Gross hematuria. History of kidney stones, [...] Electronically authenticated by: LIMA CAMPOS Date: 2022-10-21 13:25[facility]US KIDNEYSon [id number] KIDNEYSEXAMINATION: US KIDNEYS HISTORY: Kidney stone ; left renal hematoma [...] Electronically authenticated by: RIVAS KINCAID Date: 2022-10-06 07:41[facility] HospitalXR KUB 1 VIEWon [id number] KUB 1 VIEWEXAMINATION: XR KUB 1 VIEW HISTORY: Kidney stone [...] Electronically authenticated by: RIVAS KINCAID Date: 2022-10-06 07:28[facility] HospitalBasophils Auto (Bld) [#/Vol]Ordered By: Ulises Barron on 21-37-0938Gnffgfwyz (Bld) [#/Vol]0.1 10*3/uL0.0-0.2FUK HealthcareBasophils/100 WBC Auto (Bld)Ordered By: Ulises Barron on 09-30-2022 Basophils/100 WBC (Bld)0.8 %.[facility] HospitalCreatinine and Glomerular filtration rate.predicted panel (S/P/Bld)Ordered By: Ulises Barron on 02-84-9148Puthdzmzfv [Mass/Vol]1.08 mg/dL0.64-1.27[facility] HospitalEosinophils Auto (Bld) [#/Vol]Ordered By: Ulises Barron on 09-30-2022 Eosinophils (Bld) [#/Vol]0.2 10*3/uL0.0-0.45[facility] Eosinophils/100 WBC Auto (Bld)Ordered By: Ulises Barron on 09-30-2022 Eosinophils/100 WBC (Bld)2.5 %.[facility] HospitalErythrocyte distribution width Auto (RBC) [Ratio]Ordered By: Ulises Barron on 09-30-2022 Erythrocyte distribution width (RBC) [Ratio]17.3 %12.0-14.8[facility] HospitalEstimated glomerular filtration rate (GFR) non- Ordered By: Ulises Barron on 36-88-3143TLE/1.73 sq M.predicted among non-blacks MDRD (S/P/Bld) [Vol rate/Area]> 60 mL/MinOhiohealth Mansfield Hospital Hematocrit Auto (Bld) [Volume fraction]Ordered By: Ulises Barron on 09-30-2022 Hematocrit (Bld) [Volume fraction]34.3 %38.8-50.0[facility] HospitalHemoglobin [Mass/volume] in BloodOrdered By: Ulises Barron on 09-30-2022 Hemoglobin (Bld) [Mass/Vol]10.9 g/dL13.0-17.0[facility] Leukocytes [#/volume] corrected for nucleated erythrocytes in Blood by Automated counOrdered By: Ulises Barron on 08-04-6183BLO corrected for nucl RBC Auto (Bld) [#/Vol]7.6 10*3/uL4.1-10.5FUK HealthcareLymphocytes Auto (Bld) [#/Vol]Ordered By: Ulises Barron on 42-31-1445Sbvxtgtrily (Bld) [#/Vol]1.8 10*3/uL1.00-4.8[facility] HospitalLymphocytes/100 WBC Auto (Bld) Ordered By: Ulises Barron on 97-38-2825Ovutrakxxlb/100 WBC (Bld)23.4 %.[facility] HospitalMCH Auto (RBC) [Entitic mass]Ordered By: Ulises Barron on 62-09-8202IWB (RBC) [Entitic mass]24.3 pg27.5-35.2FUK HealthcareMCHC Auto (RBC) [Mass/Vol]Ordered By: Ulises Barron on 10-07-5965GGLC (RBC) [Mass/Vol]31.7 g/dL32.5-35.6FUK HealthcareMCV Auto (RBC) [Entitic vol]Ordered By: Ulises Barron on 82-45-8190YNF (RBC) [Entitic vol]76.6 fL 83.5-101[facility] HospitalMonocytes Auto (Bld) [#/Vol]Ordered By: Ulises Barron on 80-36-3631Izfpfvzyu (Bld) [#/Vol]0.8 10*3/uL0.0-0.8[facility] HospitalMonocytes/100 WBC Auto (Bld)Ordered By: Ulises Barron on 70-71-7448Oaipvyzzy/100 WBC (Bld)10.4 %.[facility] Neutrophils Auto (Bld) [#/Vol]Ordered By: Ulises Barron on 98-97-7331Inohixhunpz (Bld) [#/Vol]4.8 10*3/uL1.8-7.7FUK HealthcareNeutrophils/100 WBC Auto (Bld)Ordered By: Ulises Barron on 35-91-2754Fjnxhjiwcjk/100 WBC (Bld)62.9 %.[facility] HospitalNo Panel InformationOrdered By: Ulises Barron on 29-57-7043Qyfaehpuz GFR ()> 60 mL/MinOhiohealth Mansfield HospitalComment on above:GFR estimated reference range: According to KDOQI guidelines, <60 ml/min/1.73m2 is sufficient todiagnose a patient with chronic kidney disease.Pharmacy Creatinine Clearance (Sstm174.07[facility] HospitalNucleated erythrocytes [Presence] in Blood by Automated count Ordered By: Ulises Barron on 96-84-4392Vqdvryouk RBC Auto Ql (Bld)0.1 /100{WBC} 0-0.5FUK HealthcarePlatelet mean volume Auto (Bld) [Entitic vol]Ordered By: Ulises Barron on 89-94-8818Bxvkanra mean volume (Bld) [Entitic vol] 6.6 fL6.6-10.1FUK HealthcarePlatelets Auto (Bld) [#/Vol] Ordered By: Ulises Barron on 44-91-7889Hpcondtde (Bld) [#/Vol]225 10*3/uP359-954 [facility] HospitalRBC Auto (Bld) [#/Vol]Ordered By: Ulises Barron on 54-96-6007KDA (Bld) [#/Vol]4.47 10*6/uL3.90-5.60[facility] Hospitalerum or plasma anion gap determinationOrdered By: Ulises Barron on 24-97-1375Dzaqs gap [Moles/Vol]11.2 mmol/L6.0-15.0[facility] Hospitalerum or plasma calcium measurement (mass/volume)Ordered By: Ulises Anderson on 59-73-8860Bqmcoye [Mass/Vol]8.7 mg/dL8.2-10.2[facility] Serum or plasma chloride measurement (moles/volume)Ordered By: Ulises Anderson on 95-86-0153Kqgieqtc [Moles/Vol]104 mmol/C08-676ZyfjofiysOhiohealth Mansfield Hospital Serum or plasma glucose measurement (mass/volume)Ordered By: Ulises Barron on 52-93-0718Vbjhxmp [Mass/Vol]98 mg/oW96-898YesgvqnftOhiohealth Mansfield Hospital Comment on above:ADA recommended reference rangeRandom Glucose Reference Range is dependent on time and content of last meal. Glucose of more than 200 mg/dL in a nonstressed, ambulatory subject supports the diagnosisof Diabetes Mellitus. Serum or plasma potassium measurement (moles/volume)Ordered By: Ulises Barron on 92-97-9601Hydxfsufu [Moles/Vol]3.9 mmol/L3.5-5.1FTrinity Health Systemerum or plasma sodium measurement (moles/volume)Ordered By: Ulises Barron on 22-88-5708Rjgenm [Moles/Vol]137 mmol/S640-059TospknxtbOhiohealth Mansfield Hospital Serum or plasma total carbon dioxide measurement (moles/volume)Ordered By: Ulises Barron on 87-54-6481MS3 [Moles/Vol]25.7 mmol/L22.0-30.0[facility] Hospitalerum or plasma urea nitrogen measurement (mass/volume)Ordered By: Ulises Barron on 07-60-7781Exsd nitrogen [Mass/Vol]9 mg/dL9-23[facility] HospitalWBC Auto (Bld) [#/Vol]Ordered By: Ulises Barron on 16-42-0198IMI (Bld) [#/Vol]7.6 10*3/uL4.1-10.5FUK HealthcareBNPon 09-29-2022 Natriuretic peptide B (Bld) [Mass/Vol]89.0 pg/mLNormal<=900.0The [facility] CenterComment on above:Performed By: #### CBC #### [facility] [address] [place], [place] [address] Dr. Peter PUCKETT ADMITon 05-52-9590CB [Catalytic activity/Vol]94 U/L Klgygq06-594Nzm [facility] CenterComment on above:Performed By: #### CBC #### [facility] [address], [place] [address] Dr. Peter Rivera.MB [Mass/Vol]1.55 ng/mLNormal<=3.60The [facility] Comment on above:Performed By: #### CBC #### [facility] [address] [place] [address] Dr. Peter KyleHSTROP12.0 pg/mLNormal4.0-76.1[facility] Medical Centerment on above:Result Comment: CUT-OFF POINTS HAVE BEEN ESTABLISHED BASED ON THE FOURTH UNIVERSAL DEFINITIONS OF MYOCARDIAL INFARCTION. THE UPPER REFERENCE LIMIT (URL) OF TROPONIN, DEFINED THE 99TH PERCENTILE OF cTnI DISTRIBUTION IN A REFERENCE POPULATION, HAS BEEN CONFIRMED THE DECISION THRESHOLD FOR DC DIAGNOSIS.Performed By: #### CBC #### [facility] [address] [place] [address] Dr. Peter Charles64 ng/cUSisybd64-67CdhLake County Memorial Hospital - WestComment on above: Performed By: #### CBC #### [facility] [address] [place] [address] Dr. Peter Bates AUTO DIFFon 84-53-1460WFVL #0.1 103/ulNormal0.0-0.1The [facility] CenterComment on above:Performed By: #### CBC #### [facility] [address] [place] [address] Dr. Peter KyleBasophils/100 WBC (Bld)0.7 %Normal0.2-2.0[facility] Comment on above:Performed By: #### CBC #### [facility] [address] [place] [address] Dr. Peter Plaza #0.2 103/ulNormal0.0-0.7The [facility] CenterComment on above: Performed By: #### CBC #### [facility] [address] [place] [address] Dr. Peter Changosinophils/100 WBC (Bld)2.8 %Normal0.9-7.0[facility] Comment on above:Performed By: #### CBC #### [facility] [address] [place] [address] Dr. Peter Changrythrocyte distribution width (RBC) [Ratio]16.3 %Critically high 11.0-15.0The [facility] CenterComment on above:Performed By: #### CBC #### [facility] [address] [place] [address] Dr. Peter KyleHematocrit (Bld) [Volume fraction]34.3 %Critically low42.0-54.0 The [facility] CenterComment on above:Performed By: #### CBC #### [facility] [address] [place] [address] Dr. Peter KyleHemoglobin (Bld) [Mass/Vol]10.7 g/dLCritically low14.0-18.0The [facility] CenterComment on above:Performed By: #### CBC #### [facility] [address] [place] [address] Dr. Peter Ferguson #0.08 10e3/ulCritically high0.00-0.03The [facility] Comment on above:Performed By: #### CBC #### [facility] [address] [place] [address] Dr. Peter Ferguson %1.1 %Critically high0.0-0.5The [facility] CenterComment on above:Performed By: #### CBC #### [facility] [address] [place] [address] Dr. Peter Barnard #1.9 103/ulNormal1.2-3.8The [facility] CenterComment on above:Performed By: #### CBC #### [facility] [address] [place] [address] Dr. Peter Gaminohocytes/100 WBC (Bld)24.8 %Vrgfwz48.5-60.0[facility] - WestComment on above:Performed By: #### CBC #### [facility] [address] [place] [address] Dr. Peter BanerjeeUAL DIFF REQNONormalThe [facility] CenterComment on above: Performed By: #### CBC #### [facility] [address] [place] [address] Dr. Peter Bhagat (RBC) [Entitic mass]24.5 pgCritically low25.9-34.0The [facility] CenterComment on above:Performed By: #### CBC #### [facility] [address] [place] [address] Dr. Peetr Medina (RBC) [Mass/Vol]31.2 g/eVIeiixb63.9-35.2The [facility] CenterComment on above:Performed By: #### CBC #### [facility] [address] [place] [address] Dr. Peter Medina (RBC) [Entitic vol]78.5 fLCritically low80.0-94.0The [facility] CenterComment on above:Performed By: #### CBC #### [facility] [address] [place] [address] Dr. Peter Obando #0.8 103/ulNormal0.3-0.8The [facility] CenterComment on above:Performed By: #### CBC #### [facility] [address] [place] [address] Dr. Peter Cervantesocytes/100 WBC (Bld)10.0 %Normal1.7-12.0The [facility] Comment on above:Performed By: #### CBC #### [facility] [address] [place] [address] Dr. Peter Calloway #4.6 103/ulNormal1.4-6.5The [facility] CenterComment on above:Performed By: #### CBC #### [facility] [address] [place] [address] Dr. Peter Stapletonophils/100 WBC (Bld)60.6 %Jdcnuw55.0-75.0The [facility] CenterComment on above:Performed By: #### CBC #### [facility] [address] [place] [address] Dr. Peter Adenlet mean volume (Bld) [Entitic vol]8.3 fLCritically low 9.5-13.5The [facility] CenterComment on above:Performed By: #### CBC #### [facility] [address] [place] [address] Dr. Peter KylePLT203 103/dhEcneop283-767Byw [facility] CenterComment on above: Performed By: #### CBC #### [facility] [address] [place] [address] Dr. Peter KyleRBC4.37 106/ulCritically low4.70-6.10The [facility] CenterComment on above:Performed By: #### CBC #### [facility] [address] [address] [address] Peter KyleWBC7.6 103/ulNormal4.0-11.0The [facility] CenterComment on above: Performed By: #### CBC #### [facility] [address] [place] [address] Dr. Peter KyleCT ABD/PELVIS WO CONon 62-44-4479FO ABD/PELVIS WO CONEXAMINATION: CT ABD/PELVIS WO CON HISTORY: Kidney stone ; follow-up [...] Electronically authenticated by: RIVAS KINCAID Date: 2022-09-29 07:04[facility] HospitalFR THYROXINE INDEX T7on 16-71-7864JTS0.80Dovkcg9.30-4.50The [facility] CenterComment on above:Performed By: #### CBC #### [facility] [address] [address] [address] Peter KyleT3U33.0 %Xvugdr60.0-40.0The [facility] CenterComment on above: Performed By: #### CBC #### [facility] [address] [address] [address] Peter KyleT4 [Mass/Vol]6.50 ug/dLNormal4.50-12.10The [facility] Comment on above:Performed By: #### CBC #### [facility] [address] [address] [address] Peter KylePROF 14(COMP METB)on 07-26-2034Rgkrhub [Mass/Vol]3.4 g/dLNormal 3.4-5.0The [facility] CenterComment on above:Performed By: #### CBC #### [facility] [address] [address] [address] Peter KyleAlbumin/Globulin [Mass ratio]0.9 {ratio}NormalThe [facility] CenterComment on above:Performed By: #### CBC #### [facility] [address] [address] [address] Peter Argueta [Catalytic activity/Vol]64 U/LQsunzv03-593Rui [facility] CenterComment on above:Performed By: #### CBC #### [facility] [address] [address] [address] Peter Gold [Catalytic activity/Vol]14 U/LCritically knl35-15Uhe [facility] CenterComment on above:Performed By: #### CBC #### [facility] [address] [place] [address] Dr. Peter Rojason gap [Moles/Vol]9.6 mmol/LNormalThe [facility] CenterComment on above:Performed By: #### CBC #### [facility] [address] [place] [address] Dr. Peter KyleAST [Catalytic activity/Vol]15 U/YGtcscl96-29Pow [facility] Main Campusment on above:Performed By: #### CBC #### [facility] [address] [address] [address] Peter KyleBilirubin [Mass/Vol]0.5 mg/dLNormal0.2-1.0The [facility] Comment on above:Performed By: #### CBC #### [facility] [address] [address] [address] Peter KyleCalcium [Mass/Vol]8.5 mg/dLNormal8.5-10.1The [facility] Comment on above:Performed By: #### CBC #### [facility] [address] [address] [address] Peter KyleChloride [Moles/Vol]105 mmol/SFfrrkp78-515Qgi [facility] Comment on above:Performed By: #### CBC #### [facility] [address] [address] [address] Peter KyleCO2 [Moles/Vol]29.4 mmol/TLoplma80.0-32.0The [facility] Comment on above:Performed By: #### CBC #### [facility] [address] [address] [address] Peter KyleCreatinine [Mass/Vol]1.17 mg/dLNormal0.70-1.30The [facility] CenterComment on above:Performed By: #### CBC #### [facility] [address] [address] [address] Peter ChangGFR-AF MACEDONIAN>60Normal>=60The [facility] CenterComment on above:Performed By: #### CBC #### [facility] [address] [address] [address] Peter ChangGFR-NON AF MACEDONIAN>60Normal>=60[facility] - WestComment on above:Performed By: #### CBC #### [facility] [address] [address] [address] Peter KyleGlobulin (S) [Mass/Vol]4.0 g/dLNormalThe [facility] CenterComment on above:Performed By: #### CBC #### [facility] [address] [address] [address] Peter KyleGlucose [Mass/Vol]89 mg/iRDchmqg26-868UdhLake County Memorial Hospital - West Comment on above:Performed By: #### CBC #### [facility] [address] [address] [address] Peter KylePotassium [Moles/Vol]4.0 mmol/LNormal3.5-5.1The [facility] Comment on above:Performed By: #### CBC #### [facility] [address] [address] [address] Peter KyleProtein [Mass/Vol]7.4 g/dLNormal6.4-8.2The [facility] Comment on above:Performed By: #### CBC #### [facility] [address] [address] [address] Peter KyleSodium [Moles/Vol]140 mmol/QKhdvgd831-679FncLake County Memorial Hospital - West Comment on above:Performed By: #### CBC #### [facility] [address] [place] [address] Dr. Peter KyleUrea nitrogen [Mass/Vol]12.0 mg/dLNormal7.0-18.0The [facility] on above:Performed By: #### CBC #### [facility] [address] [place] [address] Dr. Peter KyleUrea nitrogen/Creatinine [Mass ratio]10.3 mg/mgNormalThe [facility] CenterComment on above:Performed By: #### CBC #### [facility] [address] [place] [address] Dr. Peter KyleTSHon 10-76-6583JIW4.129 uIU/mLNormal0.358-3.740The [facility] CenterComment on above:Performed By: #### CBC #### [facility] [address] [place] [address] Dr. Peter KyleHEMOGLOBIN AND HEMATOCRITon 80-20-8401Rlcmfjlumn (Bld) [Volume fraction]34.1 %Critically low42.0-54.0The [facility] CenterComment on above: Performed By: #### HGBHCT #### [facility] [address] [place] [address] Dr. Peter KyleHemoglobin (Bld) [Mass/Vol]10.8 g/dLCritically low14.0-18.0The [facility] CenterComment on above:Performed By: #### HGBHCT #### [facility] [address] [place] [address] Dr. Peter KyleINSULINon 48-58-6308Fdlrakc76.7 uIU/mLCritically high2.6-24.9The [facility] CenterComment on above:Performed By: #### CBC #### [facility] [address] [place] [address] Dr. Peter KyleCBC AUTO DIFFon 79-28-0527JOCS #0.1 103/ulNormal0.0-0.1The [facility] CenterComment on above:Performed By: #### PTT, PT #### [facility] [address] [address] [address] Peter KyleBasophils/100 WBC (Bld)0.5 %Normal0.2-2.0The [facility] Comment on above:Performed By: #### PTT, PT #### [facility] [address] [place] [address] Dr. Peter Plaza #0.3 103/ulNormal0.0-0.7The [facility] CenterComment on above: Performed By: #### PTT, PT #### [facility] [address] [place] [address] Dr. Peter Changosinophils/100 WBC (Bld)3.3 %Normal0.9-7.0The [facility] Comment on above:Performed By: #### PTT, PT #### [facility] [address] [place] [address] Dr. Peter Changrythrocyte distribution width (RBC) [Ratio]14.7 %Tusnyz42.0-15.0 The [facility] CenterComment on above:Performed By: #### PTT, PT #### [facility] [facility] [address] [place] [address] Dr. Peter KyleHematocrit (Bld) [Volume fraction]33.4 %Critically low42.0-54.0 The [facility] CenterComment on above:Performed By: #### PTT, PT #### [facility] [address] [place] [address] Dr. Peter KyleHemoglobin (Bld) [Mass/Vol]10.6 g/dLCritically low14.0-18.0The [facility] CenterComment on above:Performed By: #### PTT, PT #### [facility] [address] [place] [address] Dr. Peter Ferguson #0.14 10e3/ulCritically high0.00-0.03The [facility] Comment on above:Performed By: #### PTT, PT #### [facility] [address] [place] [address] Dr. Peter Ferguson %1.5 %Critically high0.0-0.5The [facility] CenterComment on above:Performed By: #### PTT, PT #### [facility] [address] [place] [address] Dr. Peter Barnard #2.0 103/ulNormal1.2-3.8The [facility] CenterComment on above:Performed By: #### PTT, PT #### [facility] [address] [place] [address] Dr. Peter Gaminohocytes/100 WBC (Bld)21.8 %Aqmgeo66.5-60.0The [facility] CenterComment on above:Performed By: #### PTT, PT #### [facility] [address] [place] [address] Dr. Peter Sanchez DIFF REQNONormalThe [facility] CenterComment on above: Performed By: #### PTT, PT #### [facility] [address] [place] [address] Dr. Peter Bhagat (RBC) [Entitic mass]24.8 pgCritically low25.9-34.0The [facility] CenterComment on above:Performed By: #### PTT, PT #### [facility] [address] [place] [address] Dr. Peter Sifuentes (RBC) [Mass/Vol]31.7 g/uKYwnonn23.9-35.2The [facility] CenterComment on above:Performed By: #### PTT, PT #### [facility] [address] [place] [address] Dr. Peter Townsend (RBC) [Entitic vol]78.0 fLCritically low80.0-94.0The [facility] CenterComment on above:Performed By: #### PTT, PT #### [facility] [address] [place] [address] Dr. Peter Obando #0.8 103/ulNormal0.3-0.8The [facility] CenterComment on above:Performed By: #### PTT, PT #### [facility] [address] [place] [address] Dr. Yilan ChangMonocytes/100 WBC (Bld)8.6 %Normal1.7-12.0[facility] Comment on above:Performed By: #### PTT, PT #### [facility] [address] [place] [address] Dr. Peter EscalanteUT #5.9 103/ulNormal1.4-6.5The [facility] CenterComment on above:Performed By: #### PTT, PT #### [facility] [address] [place] [address] Dr. Peter Escalanteutrophils/100 WBC (Bld)64.3 %Tspbfs75.0-75.0The [facility] CenterComment on above:Performed By: #### PTT, PT #### [facility] [address] [place] [address] Dr. Peter KylePlategigi mean volume (Bld) [Entitic vol]8.1 fLCritically low 9.5-13.5The [facility] CenterComment on above:Performed By: #### PTT, PT #### [facility] [address] [place] [address] Dr. Peter FlorenceT309 103/ksSqverf227-719Wso [facility] CenterComment on above: Performed By: #### PTT, PT #### [facility] [address] [place] [address] Dr. Peter KyleRBC4.28 106/ulCritically low4.70-6.10The [facility] CenterComment on above:Performed By: #### PTT, PT #### [facility] [address] [place] [address] Dr. Peter KyleWBC9.2 103/ulNormal4.0-11.0The [facility] CenterComment on above: Performed By: #### PTT, PT #### [facility] [address] [place] [address] Dr. Peter Fraire THYROXINE INDEX T7on 14-64-3055YAB0.17Rklorr4.30-4.50The [facility] CenterComment on above:Performed By: #### TSH, T7, CMP #### [facility] [address] [address] [address] Peter KyleT3U34.0 %Jswlgu82.0-40.0The [facility] CenterComment on above: Performed By: #### TSH, T7, CMP #### [facility] [address] [place] [address] Dr. Peter KyleT4 [Mass/Vol]5.20 ug/dLNormal4.50-12.10The [facility] Comment on above:Performed By: #### TSH, T7, CMP #### [facility] [address] [place] [address] Dr. Peter KyleGLYCOHEMOGLOBIN A1Con 15-83-5538SBS RECOMMENDATIONSEE BELOWNormal The [facility] CenterComment on above:Result Comment: ADA RECOMMENDED LIMIT 4.0 - 6.0 ADA THERAPEUTIC TARGET < 7.0 ACTION SUGGESTED > 7.0Performed By: #### CBC #### [facility] [address] [place] [address] Dr. Peter KyleGlucose [Mass/Vol]126 mg/dLNormalThe [facility] CenterComment on above:Performed By: #### CBC #### [facility] [address] [place] [address] Dr. Peter KyleHbA1c (Bld) [Mass fraction]6.0 %Normal4.5-6.2The [facility] CenterComment on above:Performed By: #### CBC #### [facility] [address] [place] [address] Dr. Peter KylePROF 14(COMP METB)on 03-95-6867Natrajp [Mass/Vol]3.3 g/dL Critically low3.4-5.0The [facility] CenterComment on above:Performed By: #### TSH, T7, CMP #### [facility] [address] [place] [address] Dr. Peter KyleAlbumin/Globulin [Mass ratio]0.8 {ratio}NormalThe [facility] CenterComment on above:Performed By: #### TSH, T7, CMP #### [facility] [address] [address] [address] Peter MattP [Catalytic activity/Vol]71 U/TXktirc19-618Dgi [facility] CenterComment on above:Performed By: #### TSH, T7, CMP #### [facility] [address] [place] [address] Dr. Peter MattT [Catalytic activity/Vol]12 U/LCritically ics45-61Ctn [facility] CenterComment on above:Performed By: #### TSH, T7, CMP #### [facility] [address] [place] [address] Dr. Peter Rojason gap [Moles/Vol]11.4 mmol/LNormalLake [facility] Comment on above:Performed By: #### TSH, T7, CMP #### [facility] [address] [place] [address] Dr. Peter KyleAST [Catalytic activity/Vol]12 U/LCritically ebl97-96Lnh [facility] CenterComment on above:Performed By: #### TSH, T7, CMP #### [facility] [address] [place] [address] Dr. Peter KyleBilirubin [Mass/Vol]0.4 mg/dLNormal0.2-1.0[facility] Comment on above:Performed By: #### TSH, T7, CMP #### [facility] [address] [place] [address] Dr. Peter KyleCalcium [Mass/Vol]8.6 mg/dLNormal8.5-10.1[facility] Comment on above:Performed By: #### TSH, T7, CMP #### [facility] [address] [place] [address] Dr. Peter KyleChloride [Moles/Vol]106 mmol/UTyisyx30-821Vfg [facility] Comment on above:Performed By: #### TSH, T7, CMP #### [facility] [address] [place] [address] Dr. Peter KyleCO2 [Moles/Vol]25.9 mmol/TKspwyc66.0-32.0The [facility] Comment on above:Performed By: #### TSH, T7, CMP #### [facility] [address] [address] [address] Peter KyleCreatinine [Mass/Vol]1.22 mg/dLNormal0.70-1.30The [facility] CenterComment on above:Performed By: #### TSH, T7, CMP #### [facility] [address] [address] [address] Peter ChangGFR-AF MACEDONIAN>60Normal>=60The [facility] CenterComment on above:Performed By: #### TSH, T7, CMP #### [facility] [address] [address] [address] Peter ChangGFR-NON AF MACEDONIAN>60Normal>=60The [facility] CenterComment on above:Performed By: #### TSH, T7, CMP #### [facility] [address] [address] [address] Peter KyleGlobulin (S) [Mass/Vol]4.2 g/dLNormalThe [facility] CenterComment on above:Performed By: #### TSH, T7, CMP #### [facility] [address] [address] [address] Peter KyleGlucose [Mass/Vol]111 mg/dLCritically gdde17-134Cqm [facility] on above:Performed By: #### TSH, T7, CMP #### [facility] [address] [address] [address] Peter KylePotassium [Moles/Vol]4.3 mmol/LNormal3.5-5.1The [facility] Comment on above:Performed By: #### TSH, T7, CMP #### [facility] [address] [address] [address] Peter KyleProtein [Mass/Vol]7.5 g/dLNormal6.4-8.2The [facility] Comment on above:Performed By: #### TSH, T7, CMP #### [facility] [address] [address] [address] Peter KyleSodium [Moles/Vol]139 mmol/OBeqgfy203-392Pfr [facility] Comment on above:Performed By: #### TSH, T7, CMP #### [facility] [address] [address] [address] Peter Saba nitrogen [Mass/Vol]8.0 mg/dLNormal7.0-18.0The [facility] CenterComment on above:Performed By: #### TSH, T7, CMP #### [facility] [address] [address] [address] Peter Saba nitrogen/Creatinine [Mass ratio]6.6 mg/mgNoGeorgetown Behavioral HospitalComment on above:Performed By: #### TSH, T7, CMP #### [facility] [address] [address] [address] Peter Cervantes 50-70-2673UZB8.857 uIU/mLNormal0.358-3.740The [facility] CenterComment on above:Performed By: #### STEVE, T7, CMP #### [facility] [address] [place] [address] Dr. Peter KyleXR KUB 1 VIEWon 85-01-0499ER KUB 1 VIEWEXAMINATION: XR KUB 1 VIEW HISTORY: Kidney stone [...] Electronically authenticated by: RIVAS KINCAID Date: 2022-09-20 12:24[facility] HospitalCOVID-19 Positive/NegativeOrdered By: Patito Sweet on 08-19-2022 SARS-CoV-2 (COVID-19) N gene VIMAL+probe Ql (Resp)NegativeNegativeOhiohealth Mansfield HospitalComment on above:Testing for SARS-CoV-2 by RT-PCRThis test was developed and its performance characteristics determined by [employer] and validated at the [facility]. This test has not been FDA cleared [...] unless the authorization is terminated or revoked sooner.Activated partial thromboplastin time (aPTT) in platelet poor plasma by coagulation aOrdered By: Patito Sweet on 50-89-0696bCLH Coag (PPP) [Time] 30.4 s25.1-36.5FUK HealthcareBasophils Auto (Bld) [#/Vol] Ordered By: Patito Sweet on 21-13-4387Njbmgzhhk (Bld) [#/Vol]0.1 10*3/uL0.0-0.2 [facility] HospitalBasophils/100 WBC Auto (Bld)Ordered By: Patito Sweet on 94-19-8063Ihltbqpgh/100 WBC (Bld)0.6 %.[facility] Creatinine and Glomerular filtration rate.predicted panel (S/P/Bld)Ordered By: Patito Sweet on 38-75-8986Zahwcpyvzw [Mass/Vol]1.08 mg/dL0.64-1.27[facility] HospitalEosinophils Auto (Bld) [#/Vol]Ordered By: Patito Sweet on 35-25-5972Ifiwjkounkz (Bld) [#/Vol]0.2 10*3/uL0.0-0.45[facility] HospitalEosinophils/100 WBC Auto (Bld)Ordered By: Patito Sweet on 08-12-2022 Eosinophils/100 WBC (Bld)1.9 %.[facility] HospitalErythrocyte distribution width Auto (RBC) [Ratio]Ordered By: Patito Sweet on 08-12-2022 Erythrocyte distribution width (RBC) [Ratio]15.0 %12.0-14.8[facility] HospitalEstimated glomerular filtration rate (GFR) non- Ordered By: Patito Sweet on 00-48-0910XXN/1.73 sq M.predicted among non-blacks MDRD (S/P/Bld) [Vol rate/Area]> 60 mL/MinOhiohealth Mansfield HospitalHematocrit Auto (Bld) [Volume fraction]Ordered By: Patito Sweet on 99-04-0141Hjugsgcsbo (Bld) [Volume fraction]42.6 %38.8-50.0[facility] HospitalHemoglobin [Mass/volume] in BloodOrdered By: Patito Sweet on 11-25-8037Xycdihyici (Bld) [Mass/Vol]13.9 g/dL13.0-17.0[facility] HospitalLaboratory - CoagulationOrdered By: Patito Sweet on 53-52-8945PS Coag (PPP) [Time]14.0 s9.0-12.9 [facility] HospitalLaboratory - Hematology and Cell countsOrdered By: Patito Sweet on 99-10-7635Rcgitchjl RBC/100 WBC (Bld) [Ratio]0.1 %0-0.5 [facility] HospitalLeukocytes [#/volume] in Blood by Automated countOrdered By: Patito Sweet on 12-59-3202AON (Bld) [#/Vol]9.0 10*3/uL4.5-11.0 [facility] HospitalLymphocytes Auto (Bld) [#/Vol]Ordered By: Patito Sweet on 39-28-6349Fkyjeecixze (Bld) [#/Vol]2.0 10*3/uL1.00-4.8[facility] CenterLymphocytes/100 WBC Auto (Bld)Ordered By: Patito Sweet on 08-12-2022 Lymphocytes/100 WBC (Bld)22.1 %.[facility] HospitalH Auto (RBC) [Entitic mass]Ordered By: Patito Sweet on 61-39-3867HKR (RBC) [Entitic mass]25.8 pg 27.5-35.2FUK HealthcareMCHC Auto (RBC) [Mass/Vol]Ordered By: Patito Sweet on 01-62-9569QEZG (RBC) [Mass/Vol]32.6 g/dL32.5-35.6FUK HealthcareMCV Auto (RBC) [Entitic vol]Ordered By: Patito Sweet on 08-12-2022 MCV (RBC) [Entitic vol]79.1 fL83.5-101Ohio[facility] HospitalMonocytes Auto (Bld) [#/Vol]Ordered By: Patito Sweet on 95-48-5658Gsdvnqpnc (Bld) [#/Vol]0.8 10*3/uL0.0-0.8[facility] HospitalMonocytes/100 WBC Auto (Bld) Ordered By: Patito Sweet on 91-16-7925Vxbkqefog/100 WBC (Bld)9.2 %.[facility] HospitalNeutrophils Auto (Bld) [#/Vol]Ordered By: Patito Sweet on 95-96-6828Xrojtknkpve (Bld) [#/Vol]6.0 10*3/uL1.8-7.7FUK HealthcareNeutrophils/100 WBC Auto (Bld)Ordered By: Patito Sweet on 08-12-2022 Neutrophils/100 WBC (Bld)66.2 %.[facility] HospitalNo Panel InformationOrdered By: Patito Sweet on 54-39-5579Mnohhkmbi GFR ()> 60 mL/MinOhiohealth Mansfield HospitalComment on above:GFR estimated reference range: According to KDOQI guidelines, <60 ml/min/1.73m2 is sufficient todiagnose a patient with chronic kidney disease.Pharmacy Creatinine Clearance (ChemN/[facility] HospitalPlatelet mean volume Auto (Bld) [Entitic vol]Ordered By: Patito Sweet on 70-13-8171Anqtheog mean volume (Bld) [Entitic vol]7.5 fL6.6-10.1FUK HealthcarePlatelet poor plasma international normalized ratio (INR) by coagulation assay (relatOrdered By: Patito Swete on 64-97-6662YJG Coag (PPP) [Relative time]1.2 {INR}[facility] HospitalComment on above:INR Therapeutic Range A) Pre- and Peroperative OAT started two weeks before surgery. NOT HIP SURGERY: 1.5 - 2.5 HIP SURGERY: 2 - 3B) Primary and secondary prevention of venous THROMBOSIS: 2 - 3C) Active venous thrombosis, pulmonary embolismand prevention of recurrent venous thrombosis: 2 - 3D) Prevention of arterial thromboembolismincluding patients with mechanical heart valves: 3 - 4.5Platelets Auto (Bld) [#/Vol]Ordered By: Patito Sweet on 28-86-2748Gevowevfx (Bld) [#/Vol]213 10*3/xI698-734GviyuvzkjOhiohealth Mansfield HospitalRBC Auto (Bld) [#/Vol]Ordered By: Patito Sweet on 08-12-2022 RBC (Bld) [#/Vol]5.38 10*6/uL3.90-5.60[facility] Wert Hospitalerum or plasma anion gap determinationOrdered By: Patito Sweet on 19-81-9045Mutnh gap [Moles/Vol]15.0 mmol/L6.0-15.0[facility] W[facility] Hospitalerum or plasma calcium measurement (mass/volume)Ordered By: Patito Sweet on 13-43-0835Jhmerij [Mass/Vol]9.0 mg/dL8.2-10.2FTrinity Health Systemerum or plasma chloride measurement (moles/volume)Ordered By: Patito Sweet on 72-04-4995Wszpsrni [Moles/Vol]107 mmol/C30-608TzdswzxscOhioHealth Van Wert Hospitalerum or plasma glucose measurement (mass/volume)Ordered By: Patito Sweet on 72-54-6518Pdcpnhe [Mass/Vol]128 mg/uR76-262XtcgqnhjbOhiohealth Mansfield HospitalComment on above:ADA recommended reference rangeRandom Glucose Reference Range is dependent on time and content of last meal. Glucose of more than 200 mg/dL in a nonstressed, ambulatory subject supports the diagnosisof Diabetes Mellitus.Serum or plasma potassium measurement (moles/volume)Ordered By: Patito Sweet on 61-60-5298Naaqcfquh [Moles/Vol]4.2 mmol/L3.5-5.1FTrinity Health Systemerum or plasma sodium measurement (moles/volume)Ordered By: Patito Sweet on 57-35-8516Kumwkk [Moles/Vol]142 mmol/S378-751MhlzszxkeOhioHealth Van Wert Hospitalerum or plasma total carbon dioxide measurement (moles/volume)Ordered By: Patito Sweet on 07-06-8314TP3 [Moles/Vol]24.2 mmol/L22.0-30.0[facility] Serum or plasma urea nitrogen measurement (mass/volume)Ordered By: Patito Sweet on 62-87-1862Meih nitrogen [Mass/Vol]12 mg/dL9-23[facility] US KIDNEYS BLADDERon 10-46-2445TB KIDNEYS BLADDEREXAM: US KIDNEYS BLADDER HISTORY: . Kel hematuria . COMPARISON: None. [...] Electronically authenticated by: MYRA PAREDES Date: 2022-06-08 08:34[facility] HospitalXR hip LT min 2V(w/wo pelvis)*on 38-73-0082LD hip LT min 2V(w/wo pelvis)*[facility] [employer] Other XR hip LT min 2V(w/wo pelvis)*[facility] [employer] Other XR hip LT min 2V(w/wo pelvis)*[address] [facility] [employer] Other XR hip LT min 2V(w/wo pelvis)*[place] [address]Fv[place] [employer] Other XR hip LT min 2V(w/wo pelvis)*X[facility] [place] [employer] Other XR hip LT min 2V(w/wo pelvis)*[facility] [employer] Other XR hip LT min 2V(w/wo pelvis)*Patient: Lima Loyd MR#: [id number] [employer] Other XR hip LT min 2V(w/wo pelvis)*71672[employer] Other XR hip LT min 2V(w/wo pelvis)*: 1965 Acct:[id number] Other XR hip LT min 2V(w/wo pelvis)*Age/Sex: 56 / M ADM Date: 02/16/22[place] [employer] Other XR hip LT min 2V(w/wo pelvis)*Loc: [facility] Room: Type: [facility] [employer] Other XR hip LT min 2V(w/wo pelvis)*Attending Dr: Gaurav Higuera [facility] CenterSwoop Other XR hip LT min 2V(w/wo pelvis)*Ordering Provider: Gaurav Higuera [employer] Other XR hip LT min 2V(w/wo pelvis)*Date of Service: 02/16/22[place] [employer] Other XR hip LT min 2V(w/wo pelvis)* XR/XR hip LT min 2V(w/wo pelvis)*: Acute pain of left hipTower Hill [employer] Other XR hip LT min 2V(w/wo pelvis)*Copies to: Gaurav HigueraCommon Sensing Other XR hip LT min 2V(w/wo pelvis)*2 views LEFT hip single view pelvisplain [facility] [employer] Other XR hip LT min 2V(w/wo pelvis)*COMPARISON:02/02/22[place] [employer] Other XR hip LT min 2V(w/wo pelvis)*HISTORY:LEFT hip pain for [facility] [employer] Other XR hip LT min 2V(w/wo pelvis)*No fracture, dislocation or focal soft tissue abnormality seen.Hip joint space is adequate. [facility] [employer] Other XR hip LT min 2V(w/wo pelvis)*articular surfaces of the hips preserved.[place] [employer] Other XR hip LT min 2V(w/wo pelvis)* XR/XR hip LT min 2V(w/wo pelvis)*[facility] [employer] Other XR hip LT min 2V(w/wo pelvis)*IMPRESSION:Unremarkable LEFT [facility] [employer] Other XR hip LT min 2V(w/wo pelvis)*Impression dictated by: Garrett Astudillo M.D.02/16/2022 2:21 [facility] [employer] Other XR hip LT min 2V(w/wo pelvis)*Dictation Location: [id number] [employer] Other XR hip LT min 2V(w/wo pelvis)*Transcribed By: ALDEN 02/16/[address] [place] [address] [employer] Other XR hip LT min 2V(w/wo pelvis)*Dictated By: Garrett Astudillo DO 02/16/[address] [place] [address] [employer] Other XR hip LT min 2V(w/wo pelvis)*Signed By:[facility] [employer] Other XR hip LT min 2V(w/wo pelvis)*02/16/[address] [place] [address] [employer] Other XR hip RT min 2V(w/wo pelvis)*on 32-02-1353ZD hip RT min 2V(w/wo pelvis)*[facility] [employer] Other XR hip RT min 2V(w/wo pelvis)*[facility] [employer] Other XR hip RT min 2V(w/wo pelvis)*[address] [facility] [employer] Other XR hip RT min 2V(w/wo pelvis)*JONEL Howell [address] [place] [address] [employer] Other XR hip RT min 2V(w/wo pelvis)*[facility] [employer] Other XR hip RT min 2V(w/wo pelvis)*SignedT[place] [employer] Other XR hip RT min 2V(w/wo pelvis)*Patient: Lima Loyd MR#: [id number] [employer] Other XR hip RT min 2V(w/wo pelvis)*61793Hbxid [employer] Other XR hip RT min 2V(w/wo pelvis)*: 1965 Acct:[id number] [employer] Other XR hip RT min 2V(w/wo pelvis)*Age/Sex: 56 / M ADM Date: 02/02/22[employer] Other XR hip RT min 2V(w/wo pelvis)*Loc: [place] Room: Type: [facility] [employer] Other XR hip RT min 2V(w/wo pelvis)*Attending Dr: Gaurav Higuera [employer] Other XR hip RT min 2V(w/wo pelvis)*Ordering Provider: Gaurav Higuera [employer] Other XR hip RT min 2V(w/wo pelvis)*Date of Service: 02/02/22[employer] Other XR hip RT min 2V(w/wo pelvis)* XR/XR hip RT min 2V(w/wo pelvis)*: Right hip painT[place] [employer] Other XR hip RT min 2V(w/wo pelvis)*Copies to: Gaurav Higuera, [employer] Other XR hip RT min 2V(w/wo pelvis)*Pelvis and right hip 02/02/2022.[employer] Other XR hip RT min 2V(w/wo pelvis)*CLINICAL DATA: Right hip pain.[employer] Other XR hip RT min 2V(w/wo pelvis)*FINDINGS: A single view of the pelvis and 2 views of the right hip were obtained.[employer] Other XR hip RT min 2V(w/wo pelvis)*The right and left acetabula appear shallow. No acute fracture or dislocation is identified. There [employer] Other XR hip RT min 2V(w/wo pelvis)*are mild and symmetrical arthritic changes at both hips. No bony erosion or destruction isNoCompareNetworks Other XR hip RT min 2V(w/wo pelvis)*visualized. There are postsurgical changes related to L4-L5 interbody fusion.[employer] Other XR hip RT min 2V(w/wo pelvis)* XR/XR hip RT min 2V(w/wo pelvis)*[employer] Other XR hip RT min 2V(w/wo pelvis)*IMPRESSION: Shallow acetabula. Mild degenerative changes. No acute bony abnormality.[employer] Other XR hip RT min 2V(w/wo pelvis)*Impression dictated by: Junito Sims Jr., M.D.02/02/2022 11:14 [facility] [employer] Other XR hip RT min 2V(w/wo pelvis)*Dictation Location: [address] [employer] Other XR hip RT min 2V(w/wo pelvis)*Transcribed By: ALDEN 02/02/22 [facility] HospitalTsavo Media Other XR hip RT min 2V(w/wo pelvis)*Dictated By: Junito Sims Jr, MD 02/02/22 [facility] CenterR[facility] Other XR hip RT min 2V(w/wo pelvis)*Signed By:[employer] Other XR hip RT min 2V(w/wo pelvis)*02/02/22 [facility] BiloxiR[facility] Other XR knee BI 2Von [id number] knee BI 2VAccession #: ([id number]) XR/XR knee BI 2V: Z96.653[place] [employer] Other XR knee BI 2VBILATERAL KNEES - 2 views eachTower Hill [employer] Other XR knee BI 2VCLINICAL HISTORY: Follow-up bilateral TKA [employer] Other XR knee BI 2VCOMPARISON: Knee series 02/02/2021[place] [employer] Other XR knee BI 2VFINDINGS: Bilateral knee prostheses are in place without radiographic complication. No acute bonyTower Hill [employer] Other XR knee BI 2Vprocess is seen. No joint effusions.[employer] Other XR knee BI 2VORDER #: [id number] XR/XR knee BI 2VTower [place] [employer] Other XR knee BI 2VIMPRESSION:[employer] Other XR knee BI 2VNO EVIDENCE OF HARDWARE COMPLICATION. [employer] Other XR knee BI 2VImpression dictated by: Abad Perez Jr., GeriOAlejo02/02/2022 10:27 [facility] [employer] Other XR knee BI 2VDictation Location: [id number] [employer] Other XR knee BI 2VTranscribed By: PWS 02/02/[address] [place] [address] [employer] Other XR knee BI 2VDictated By: Abad Perez Jr, DO 02/02/[address] [place] [address] [employer] Other XR knee BI 2VSigned By:[employer] Other XR knee BI 2V02/02/[address] [place] [address] [employer] Other Vital Signs Date TimeVital SignValuePerforming SirjdflanZoddrbhg31-54-3448 08:38-0500Body agytqz752 cmNicholas Brown DPM Work Phone: [facility] HealthAtydtxzhwi38-23-2140 08:38-0500Body mass index (BMI) [Ratio]38.77 kg/a4Nqullyfk Brown DPM Work Phone: 1(849)470-[address] [place], [place] [address]Jrqpvoxswa29-69-9083 08:38-0500Body jtoefj718.99 kgNicholas Brown DPM Work Phone: [facility] HealthTsstmdsokx32-45-4977 08:38-0500Respiratory rate18 /minNicholas Brown DPM Work Phone: 1(564)466-[address] [place], [place] [address]Kcnlmvsrtm90-40-0981 10:49-0500Body tzskne211 cm Venkat Brown DPM Work Phone: [facility] HealthVbdladtzvh58-35-2784 10:49-0500Body mass index (BMI) [Ratio]38.77 kg/h6Tmhhbwup Brown DPM Work Phone: [facility] HealthWhcfhbcahu64-84-6010 10:49-0500Body vpamzg773.99 kgNicholas Brown DPM Work Phone: 1(750)545-[address] [place], [place] [address]Yptpiknjpu95-41-0316 10:49-0500Respiratory rate18 /minNicholas Brown DPM Work Phone: [facility] HealthIaqiewjwug52-75-7036 08:59-0500Body lxypqq489 cm Venkat Brown DPM Work Phone: [facility] HealthPpowcuhjmw76-22-9853 08:59-0500Body mass index (BMI) [Ratio]38.77 kg/u5Stpmayun Brown DPM Work Phone: 1(913)741-[address] [place], [place] [address]Ouwppsdszg72-50-1629 08:59-0500Body ydvjxt380.99 kgNicholas Brown DPM Work Phone: [facility] HealthBdonitrkql22-39-2822 08:59-0500Respiratory rate16 /minNicholas Brown DPM Work Phone: [facility] HealthLcfnmetrdn51-24-0259 09:09-0500Body jnmvso462 cm Venkat Paredes DPM Work Phone: [facility] HealthSmnyiefyvo31-79-0663 09:09-0500Body mass index (BMI) [Ratio]38.77 kg/q6Rmpdhtzu Brown DPM Work Phone: [facility] HealthLnwzxplaan84-76-7179 09:09-0500Body .99 kgNicholas Brown DPM Work Phone: [facility] HealthLstyhndtkl48-71-6029 09:09-0500Respiratory rate16 /minNiceric Brown DPM Work Phone: [facility] HealthDobygrmjlm16-84-9085 13:49-0500Body lnceem776 cm Venkat Paredes DPM Work Phone: [facility] HealthCnszdcfnhs44-15-1505 13:49-0500Body mass index (BMI) [Ratio]38.77 kg/v3Yuxhtpzh Brown DPM Work Phone: [place] [address]Lyeydircoy74-09-5163 13:49-0500Body iblhvw548.99 kgNiceric Brown DPM Work Phone: [place] [address]Jcmtgofrqd50-88-0692 13:49-0500Respiratory rate18 /John Paredes DPM Work Phone: [facility] HealthOinciedjpg16-46-0954 09:24-0500Body vywtse401 cm Venkat Paredes DPM Work Phone: 1(114)392-[address] [place], [place] [address]Raryrajscq70-51-1172 09:24-0500Body mass index (BMI) [Ratio]38.77 kg/o0Dbxfmagp Brown DPM Work Phone: 1(381)950-[address] [place], [place] [address]Tquctfttje55-04-2047 09:24-0500Body ootyrz695.99 kgNicholas Brown DPM Work Phone: [place] [address]Vphxbqdeed19-05-2624 09:24-0500Diastolic blood zhyodhvm73 mm[Hg]Venkat Paredes DPM Work Phone: 1(264)885-[address] [place], [place] [address]Fzeqhuzguy83-25-9080 09:24-0500Heart rate82 /min Venkat Paredes DPM Work Phone: 1(515)296-[address] [place], [place] [address]Znpbfcbtah72-99-2019 09:24-0500Systolic blood gggurujz441 mm[Hg]Venkat Paredes DPM Work Phone: 1(116)947-[address] [place], [place] [address]Vgjqwsqygv96-57-6247 09:16-0400Body cm Venkat Paredes DPM Work Phone: 1(656)668-[address] [place], [place] [address]Fbyibijndy56-51-6186 09:16-0400Body mass index (BMI) [Ratio]38.77 kg/x0WqavaeffVenkat Paredes DPM Work Phone: 1(541)668-[address] [place], [place] [address]Nxilspjsaa99-78-7618 09:16-0400Body xuafie653.99 kgShanekajillian Lena DPM Work Phone: 1(038)428-[address] [place], [place] [address]Plqnppnnlt99-14-9819 09:16-0400Diastolic blood vxhnklex99 mm[Hg]Venkat Paredes DPM Work Phone: 1(005)156-[address] [place], [place] [address]Qlymrzpxro71-88-6377 09:16-0400Heart rate88 /min Venkat Paredes DPM Work Phone: 1(094)764-[address] [place], [place] [address]Zqzhjistlv58-24-4704 09:16-0400Systolic blood tiprvcxf687 mm[Hg]Venkat Paredes DPM Work Phone: 1(438)1-[address] [place], [place] [address]Aysoxyiiwy66-91-7633 09:50-0400Blood Pressure LocationKathy Lue [facility]07-25-2024 09:50-0400Body ebrzbmjihwt66.8 [degF]Patito Lue [facility]07-25-2024 09:50-0400Diastolic blood mm[Hg]Patito Lue [facility]07-25-2024 09:50-0400Heart rate78 /minKathy Lue [facility]07-25-2024 09:50-0400Respiratory rate19 /minKathy Lue [facility]07-25-2024 09:50-0400Systolic blood nsnhyrzq642 mm[Hg]Patito Lue [facility]02-19-2024 08:47-0500Body mhozql097.96 cmMD Jeff Hoy Work Phone: [facility]02-19-2024 08:47-0500 Body mass index (BMI) [Ratio]40.4 kg/m2MD Jeff Hoy Work Phone: [facility]02-19-2024 08:47-0500 Body dotfdz514.88 kgMD Jeff Hoy Work Phone: [facility]01-19-2024 09:58-0500 Blood Pressure LocationKathy Lue [facility]01-19-2024 09:58-0500Diastolic blood cyjhxdod04 mm[Hg]Patito Lue [facility]01-19-2024 09:58-0500Heart rate80 /minKathy Lue [facility]01-19-2024 09:58-0500Systolic blood heedroys200 mm[Hg]Patito Lue [facility]01-15-2024 10:43-0500Diastolic blood wcmgjotr58 mm[Hg]MD Jeff Terrell Work Phone: [facility]01-15-2024 10:43-0500 Heart rate72 /minMD Jeff Terrell Work Phone: 1(505)404-[address] [place], [place] 2981701-15-2024 10:43-0500 Respiratory rate18 /minMD Jeff Terrell Work Phone: 1(223)[address] [place], [place] 9737701-15-2024 10:43-0500 SaO2% (BldA) [Mass fraction]93 %MD Jeff Terrell Work Phone: 1(267)632-[address] [place], [place] 2981701-15-2024 10:43-0500 Systolic blood afyfndag272 mm[Hg]MD Jeff Terrell Work Phone: 1(971)[address]01-15-2024 07:55-0500 Body bzaejv611.96 cmMD Jeff Terrell Work Phone: 1(221)[address] [place], [place] 9737701-15-2024 07:55-0500 Body zfybamouebl75.9 [degF]MD Jeff Terrell Work Phone: 1(011)[address] [place], [place] 9737701-15-2024 07:55-0500 Body amzqeq481.24 kgMD Jeff Terrell Work Phone: 1(252)[address] [place], [place] 9737701-10-2024 10:45-0500 Body fijmbx906.96 cmMD Jeff Terrell Work Phone: 1(653)525-[address] [place], [place] 2981712-12-2023 11:58-0500 Diastolic blood tortkghv53 mm[Hg]Patito Lue [facility]12-12-2023 11:58-0500Heart rate72 /minKathy Lue [facility]12-12-2023 11:58-0500Mean blood rluhujpy386 mm[Hg]Patito Lue [facility]12-12-2023 11:58-0500 Respiratory rate18 /minKathy Lue [facility]12-12-2023 11:58-9588QqF8% (BldA) [Mass fraction]96 %Patito Lue [facility]12-12-2023 11:58-0500 Systolic blood cjmvghyw554 mm[Hg]Patito Lue [address] [place], [place] 2074012-12-2023 11:12-0500Heart rate80 /minKathy Lue [address] [place], [place] 2074012-12-2023 11:12-0610WbH2% (BldA) [Mass fraction]94 %Patito Lue [address] [place], [place] 2074012-12-2023 11:10-0500Body fnjyopytpmv90.7 [degF]Patito Lue [address] [place], [place] 2074012-12-2023 11:10-0500 Respiratory rate20 /minKathy Lue [address] [place], [place] 2074012-12-2023 11:08-0500Blood Pressure LocationKathy Lue [address] [place], [place] 2074012-12-2023 11:08-0500 Diastolic blood hhppursj00 mm[Hg]Patito Lue [address] [place], [place] 2074012-12-2023 11:08-0500Mean blood mmajymja905 mm[Hg]Patito Lue [address] [place], [place] 2074012-12-2023 11:08-0500 Systolic blood nqxkonmt650 mm[Hg]Patito Lue [address] [place], [place] 2074012-12-2023 11:08-0500Mean blood mm[Hg]Patito Lue [address] [place], [place] 2074012-12-2023 11:00-0500Body rbaxfuproej72.24 [degF]Patito Lue [address] [place], [place] 2074012-12-2023 11:00-0500 Diastolic blood dwlpseax53 mm[Hg]Patito Lue [facility]12-12-2023 11:00-0500Heart rate79 /minKathy Lue [facility]12-12-2023 11:00-0500 Respiratory rate11 /minKathy Lue [address] [place], [place] 7786412-12-2023 11:00-4079FuC2% (BldA) [Mass fraction]93 %Patito Lue [address] [place], [place] 2074012-12-2023 11:00-0500 Systolic blood ajxfncuo996 mm[Hg]Patito Lue [address] [place], [place] 7786412-12-2023 10:50-0500Blood Pressure LocationKathy Lue [address] [place], [place] 2074012-12-2023 10:50-0500 Respiratory rate10 /minKathy Lue [facility]12-12-2023 10:45-0500 Respiratory rate17 /minKathy Lue [facility]12-12-2023 10:34-0500Body ppvphwaxwok95.7 [degF]Patito Lue [address] [place], [place] 2074012-12-2023 10:30-0500 Respiratory rate16 /minKathy Lue [facility]12-12-2023 07:28-0500Mean blood yzahfqmh781 mm[Hg]Patito Lue [facility]12-06-2023 11:00-0500Body heightJanine Maynard Other [facility] [employer] Other 12-06-2023 11:00-0500Body edyscc560.96 cmMD Jeff Hoy Work Phone: 1(914)235-[address] [place], [place] 2981711-22-2023 08:45-0500 Body heightJustrolly Higuera Other [facility] Other 11-22-2023 08:45-0500Body vjvxsy134.96 cmMD Jeff Harrisony Work Phone: 1(445)109-[address] [place], [place] 2981711-22-2023 08:45-0500 Body mass index (BMI) [Ratio]39.8 kg/q8Cvwulymarlon Higuera Other [facility] Other 11-22-2023 08:45-0500Body ltunjd950.62 kgJustrolly Higuera Other [facility] Other 11-22-2023 08:45-0500Body airqak121.61 kgMD Jeff Harrisony Work Phone: 1(457)872-[address] [place], [place] 2981711-14-2023 13:10-0500 Diastolic blood pjaonszg97 mm[Hg]MD Jeff Terrell Work Phone: 1(295)[address]11-14-2023 13:10-0500 Heart rate71 /minMD Jeff Harrisony Work Phone: 1(551)74089 [address]11-14-2023 13:10-0500 Respiratory rate16 /minMD Jeff Harrisony Work Phone: 1(310)[facility] [place], [place] 2981711-14-2023 13:10-0500 SaO2% (BldA) [Mass fraction]96 %MD Jeff Terrell Work Phone: 1(387)70989 [address]11-14-2023 13:10-0500 Systolic blood rcxmeapg569 mm[Hg]MD Jeff Terrell Work Phone: 1(644)[address]11-14-2023 12:25-0500 Inhaled oxygen flow rate8 L/minMD Jeff Terrell Work Phone: 1(237)[address]11-14-2023 11:16-0500 Body cvieor063.96 cmMD Jeff Hoy Work Phone: 1(419)[address] [place], [place] 9737711-14-2023 11:16-0500 Body mass index (BMI) [Ratio]39.3 kg/m2MD Jeff Hoy Work Phone: 1(419)[address] [place], [place] 9737711-14-2023 11:16-0500 Body pvpzgi123 kgMD Jeff Hoy Work Phone: 1(419)[address] [place], [place] 9737711-14-2023 09:20-0500 Body jsfyjleflmx35.5 [degF]MD Jeff Terrell Work Phone: 1(419)[address] [place], [place] 9737711-12-2023 15:32-0500 Body acjtve215.96 cmMD Jeff Hoy Work Phone: 1(419)[address] [place], [place] 9737711-12-2023 15:32-0500 Body goulvlahfjj76.6 [degF]MD Jeff Terrell Work Phone: 1(419)[address] [place], [place] 9737711-12-2023 15:32-0500 Body tzxaam819.25 kgMD Jeff Hoy Work Phone: 1(419)[address] [place], [place] 9737711-12-2023 15:32-0500 Diastolic blood pbqyjyxv16 mm[Hg]MD Jeff Terrell Work Phone: 1(419)[address] [place], [place] 9737711-12-2023 15:32-0500 Heart rate83 /minMD Jeff Hoy Work Phone: 1(419)[address] [place], [place] 9737711-12-2023 15:32-0500 Respiratory rate16 /minMD Jeff Hoy Work Phone: 1(419)[address] [place], [place] 9737711-12-2023 15:32-0500 SaO2% (BldA) [Mass fraction]96 %MD Jeff Terrell Work Phone: 1(419)[address] [place], [place] 9737711-12-2023 15:32-0500 Systolic blood hxeepvav743 mm[Hg]MD Jeff Terrell Work Phone: 1(419)[address] [place], [place] 9737711-03-2023 10:14-0400 Diastolic blood mm[Hg]Patito Lue [facility] [place] 074471-03-2023 10:14-0400Heart rate72 /minKathy Lue [facility] [place] 074471-03-2023 10:14-0400Systolic blood aroqpioq918 mm[Hg]Patito Lue [facility]09-15-2023 09:15-0400Body heightJustrolly Higuera Other [facility] Other 09-15-2023 09:15-0400Body mass index (BMI) [Ratio] 36.84 kg/q6Zlguggmarlon Higuera Other [facility] Other 09-15-2023 09:15-0400Body .18 kgJumarlon Higuera Other [facility] Other 07-11-2023 10:43-0400Diastolic blood jdyitgvq35 mm[Hg] MD Jeff Terrell Work Phone: 4(666)875-[address] [place], [place] 2981707-11-2023 10:43-0400 Heart rate71 /minMD Jeff Terrell Work Phone: 1(892)056-[address] [place], [place] 2981707-11-2023 10:43-0400 Respiratory rate16 /minMD Jeff Terrell Work Phone: 1(311)228-[address] [place], [place] 2981707-11-2023 10:43-0400 SaO2% (BldA) [Mass fraction]95 %MD Jeff Terrell Work Phone: 1(006)993-[address] [place], [place] 2981707-11-2023 10:43-0400 Systolic blood mm[Hg]MD Jeff Terrell Work Phone: 1(235)405-[address] [place], [place] 2981707-11-2023 10:13-0400 Inhaled oxygen flow rate6 L/minMD Jeff Terrell Work Phone: 1(188)645-[address] [place], [place] 2981707-11-2023 09:01-0400 Body mass index (BMI) [Ratio]39.4 kg/m2MD Jeff Harrisony Work Phone: 1(203)[address]07-11-2023 08:57-0400 Body nkvqdi741.96 cmMD Jeff Terrell Work Phone: 1(109)[address]07-11-2023 08:57-0400 Body faixuc022.25 kgMD Jeff Terrell Work Phone: 1(383)[address]07-11-2023 08:17-0400 Body .6 [degF]MD Jeff Terrell Work Phone: 1(846)[address]06-09-2023 09:45-0400 Body heightJustrolly Higuera Other [facility] Other 06-09-2023 09:45-0400Body mass index (BMI) [Ratio] 36.84 kg/y7Cakuzzrolly Higuera [facility] Other 06-09-2023 09:45-0400Body wgyxdh406.18 kgJustrolly Higuera Other [facility] Other 05-30-2023 15:16-0400Diastolic blood kqutrqgu03 mm[Hg] MD Jeff Terrell Work Phone: [facility]05-30-2023 15:16-0400 Heart rate76 /minMD Jeff Terrell Work Phone: [facility]05-30-2023 15:16-0400 Respiratory rate16 /min Jeff Harrisonzan Work Phone: 1(944)851-[address] [place], [place] 2981705-30-2023 15:16-0400 SaO2% (BldA) [Mass fraction]98 %MD Jeff Terrell Work Phone: 1(429)391-[address] [place], [place] 2981705-30-2023 15:16-0400 Systolic blood xzmgsiau448 mm[Hg]MD Jeff Terrell Work Phone: 1(704)[address]05-30-2023 14:32-0400 Inhaled oxygen flow rate6 L/minMD Jeff Terrell Work Phone: 1(490)91589 [address]05-30-2023 13:27-0400 Body lwusgg204.96 cmMD Jeff Terrell Work Phone: 1(896)[address]389 [address]05-30-2023 13:27-0400 Body ddooxb340.25 kgMD Jeff Hunterzan Work Phone: 1(008)[address]189 [address]05-30-2023 13:21-0400 Body mass index (BMI) [Ratio]17.9 kg/m2MD Jeff Hunterzan Work Phone: 1(626)[address]05-30-2023 11:29-0400 Body zfjklezjxca65.5 [degF]MD Jeff Terrell Work Phone: 1(316)[address]05-12-2023 12:15-0400 Body heightJustin Davida Other [facility] Other 05-12-2023 12:15-0400Body mass index (BMI) [Ratio] 36.84 kg/u4Grqaye Davida Other [facility] Other 05-12-2023 12:15-0400Body ngpnao323.18 kgJustin Davida Other [facility] Other 04-25-2023 17:15-0400Body heightThomas Felter Other [facility] Other 04-17-2023 14:03-0400Body .96 cmMD Jeff Terrell Work Phone: 1(810)082-[address] [place], [place] 2981704-17-2023 14:03-0400 Body baocikidusl01.8 [degF]MD Jeff Terrell Work Phone: [facility]04-17-2023 14:03-0400 Body fdmjdi543 kg Jeff Terrell Work Phone: 1(230)483-[address] [place], [place] 2981704-17-2023 14:03-0400 Diastolic blood dkjsxqhe60 mm[Hg]MD Jeff Terrell Work Phone: [facility]04-17-2023 14:03-0400 Heart rate86 /minMD Jeff Ventura Work Phone: 1(211)483-[address] [place], [place] 2981704-17-2023 14:03-0400 Respiratory rate18 /minMD Jeff Terrell Work Phone: 1(395)483-[address] [place], [place] 2981704-17-2023 14:03-0400 SaO2% (BldA) [Mass fraction]95 %MD Jeff Terrell Work Phone: 1(687)483-[address] [place], [place] 2981704-17-2023 14:03-0400 Systolic blood iviojuzf517 mm[Hg]MD Jeff Terrell Work Phone: 1(219)949-[address] [place], [place] 2981703-08-2023 07:41-0500 Blood Pressure LocationKathy Lue [facility]03-08-2023 07:41-0500Diastolic blood anjmileh07 mm[Hg]Patito Lue [facility]03-08-2023 07:41-0500Heart rate72 /minKathy Lue [facility]03-08-2023 07:41-0500Systolic blood xtpalrmq247 mm[Hg]Patito Lue [facility]02-14-2023 15:53-0500Diastolic blood djqnojny57 mm[Hg]MD Jeff Terrell Work Phone: 1(124)075-[address] [place], [place] 2981702-14-2023 15:53-0500 Heart rate95 /minMD Jeff Terrell Work Phone: 1(792)133-[address] [place], [place] 2981702-14-2023 15:53-0500 Respiratory rate16 /minMD Jeff Terrell Work Phone: 1(982)[address] [place], [place] 9737702-14-2023 15:53-0500 SaO2% (BldA) [Mass fraction]93 %MD Jeff Terrell Work Phone: 1(587)[address]189 [address]02-14-2023 15:53-0500 Systolic blood donaueue327 mm[Hg]MD Jeff Terrell Work Phone: 1(136)[address]02-14-2023 15:00-0500 Body .2 [degF]MD Jeff Terrell Work Phone: 1(172)12489 [address]02-14-2023 14:35-0500 Inhaled oxygen flow rate8 L/minMD Jeff Terrell Work Phone: 1(407)616-[address] [place], [place] 2981702-14-2023 12:37-0500 Body sthnoy549.96 cmMD Jeff Terrell Work Phone: 1(872)[address] [place], [place] 9737702-14-2023 12:37-0500 Body mass index (BMI) [Ratio]38.1 kg/m2MD Jeff Terrell Work Phone: 1(778)[address]489 [address]02-14-2023 12:37-0500 Body ubhymv572.71 kgMD Jeff Terrell Work Phone: 1(178)838-[address] [place], [place] 2981702-14-2023 00:00-0500 Body mhoxio597 mgMD Jeff Terrell Work Phone: 1(706)107-[address] [place], [place] 2981702-09-2023 10:00-0500 Body heightThomas Felter Other [facility] Other 02-09-2023 10:00-0500Body mass index (BMI) [Ratio] 36.84 kg/n5Wyqysp Felter Other [facility] Other 02-09-2023 10:00-0500Body .18 kgThomas Felter Other [facility] Other 01-18-2023 09:55-0500Diastolic blood ppeisycv54 mm[Hg] MD Jeff Terrell Work Phone: 1(951)50989 [address]01-18-2023 09:55-0500 Heart rate61 /minMD Jeff Hoy Work Phone: 1(146)[address] [place], [place] 9737701-18-2023 09:55-0500 Respiratory rate18 /minMD Jeff Hoy Work Phone: 1(972)[address] [place], [place] 9737701-18-2023 09:55-0500 SaO2% (BldA) [Mass fraction]96 %MD Jeff Terrell Work Phone: 1(276)[address] [place], [place] 9737701-18-2023 09:55-0500 Systolic blood mm[Hg]MD Jeff Terrell Work Phone: 1(022)[address] [place], [place] 9737701-18-2023 08:12-0500 Body qljwip271.96 cmMD Jeff Hoy Work Phone: 1(740)[address] [place], [place] 9737701-18-2023 08:12-0500 Body abqtzj536.71 kgMD Jeff Hoy Work Phone: 1(780)[address] [place], [place] 9737712-16-2022 16:42-0500 Body xpzmke997.96 cmMD Jeff Hoy Work Phone: 1(747)[address] [place], [place] 9737712-16-2022 16:42-0500 Body mass index (BMI) [Ratio]38.5 kg/m2MD Jeff Hoy Work Phone: 1(034)[address] [place], [place] 9737712-16-2022 16:42-0500 Body .07 kgMD Jeff Hoy Work Phone: 1(703)[address] [place], [place] 9737712-16-2022 14:40-0500 Diastolic blood khhzqtlu19 mm[Hg]MD Jeff Terrell Work Phone: 1(314)102-[address] [place], [place] 2981712-16-2022 14:40-0500 Heart rate64 /minMD Jeff Terrell Work Phone: 1(801)[facility] [place], [place] 2981712-16-2022 14:40-0500 Respiratory rate18 /minMD Jeff Terrell Work Phone: 1(781)[facility] [place], [place] 2981712-16-2022 14:40-0500 SaO2% (BldA) [Mass fraction]96 %MD Jeff Terrell Work Phone: 1(755)[facility] [place], [place] 2981712-16-2022 14:40-0500 Systolic blood skhmciqe076 mm[Hg]MD Jeff Terrell Work Phone: 1(631)[address] [place], [place] 9737712-16-2022 10:48-0500 Body kswazo355.96 cmMD Jeff Terrell Work Phone: 1(504)[address] [place], [place] 9737712-16-2022 10:48-0500 Body dhooashsoxo32.1 [degF]MD Jeff Terrell Work Phone: 1(145)[facility] [place], [place] 2981712-16-2022 10:48-0500 Body jjcfep877.07 kgMD Jeff Terrell Work Phone: 1(543)[address] [place], [place] 9737712-07-2022 08:22-0500 Blood Pressure LocationKathy Lue [facility]12-07-2022 08:22-0500Diastolic blood axajdjyi19 mm[Hg]Patito Lue [facility]12-07-2022 08:22-0500Heart rate64 /minKathy Lue [facility]12-07-2022 08:22-0500Respiratory rate16 /minKathy Lue [facility]12-07-2022 08:22-0500Systolic blood uvhpsjdl406 mm[Hg]Patito Sweet [facility]11-08-2022 17:13-0500Diastolic blood qejtwkju40 mm[Hg]MD Jeff Terrell Work Phone: 1(427)132-[address] [place], [place] 2981711-08-2022 17:13-0500 Heart rate70 /minMD Jeff Terrell Work Phone: 1(952)[address] [place], [place] 9737711-08-2022 17:13-0500 Respiratory rate16 /minMD Jeff Terrell Work Phone: 1(778)[address] [place], [place] 9737711-08-2022 17:13-0500 SaO2% (BldA) [Mass fraction]95 %MD Jeff Terrell Work Phone: 1(361)[address]89 [address]11-08-2022 17:13-0500 Systolic blood fotkbxto891 mm[Hg]MD Jeff Terrell Work Phone: 1(308)[address] [place], [place] 9737711-08-2022 16:16-0500 Body eymxdy335.96 cmMD Jeff Terrell Work Phone: 1(238)[address] [place], [place] 9737711-08-2022 16:16-0500 Body mass index (BMI) [Ratio]38.2 kg/m2MD Jeff Hoy Work Phone: 1(000)[address] [place], [place] 9737711-08-2022 16:16-0500 Body .3 kgMD Jeff Terrell Work Phone: 1(698)[address] [place], [place] 9737711-08-2022 12:17-0500 Body lezicqwzqbi87.4 [degF]MD Jeff Terrell Work Phone: 1(046)98389 [address]10-27-2022 09:20-0400 Body heightDaelpidio George Other [facility] [employer] Other 10-27-2022 09:20-0400Body mass index (BMI) [Ratio] 37.49 kg/m2Dale Ariel Other [employer] Other 10-27-2022 09:20-0400Body .45 kgDale George Other [facility] Other 10-26-2022 09:49-0400Blood Pressure LocationKathy Lue [facility]10-26-2022 09:49-0400Diastolic blood mm[Hg]Patito Lue [facility]10-26-2022 09:49-0400Heart rate76 /minKathy Lue [facility]10-26-2022 09:49-0400Respiratory rate16 /minKathy Lue [facility]10-26-2022 09:49-0400Systolic blood rewuqofo129 mm[Hg]Patito Lue [facility]10-18-2022 15:15-0400Body heightThomas Felter Other [place] [facility] Other 10-11-2022 08:48-0400Diastolic blood xxzgirss89 mm[Hg] MD Jeff Terrell Work Phone: [facility]10-11-2022 08:48-0400 Heart rate69 /minMD Jeff Terrell Work Phone: [facility]10-11-2022 08:48-0400 Respiratory rate16 /minMD Jeff Terrell Work Phone: [facility]10-11-2022 08:48-0400 SaO2% (BldA) [Mass fraction]95 %MD Jeff Terrell Work Phone: [facility]10-11-2022 08:48-0400 Systolic blood oiowtftj625 mm[Hg]MD Jeff Terrell Work Phone: [phone]10-11-2022 08:05-0400 Inhaled oxygen flow rate3 L/min Jeff Harrisonzan Work Phone: [phone]10-11-2022 06:41-0400 Body oeacii401.96 cmMD Jeff Terrell Work Phone: [phone]10-11-2022 06:41-0400 Body gzjsfy763.18 kgMD Jeff Terrell Work Phone: [phone]09-27-2022 08:29-0400 Blood Pressure LocationKathy Lue [facility]09-27-2022 08:29-0400Diastolic blood eymubuqr48 mm[Hg]Patito Lue [facility]09-27-2022 08:29-0400Heart rate72 /minKathy Lue [facility]09-27-2022 08:29-0400Systolic blood vawflbkl903 mm[Hg]Patito Lue [facility]09-08-2022 12:14-0400Diastolic blood ntrgocbb03 mm[Hg]Ronak Zumbar [facility]09-08-2022 12:14-0400Heart rate60 /minZachary Zumbar [facility]09-08-2022 12:14-0400Mean blood mm[Hg][facility] [facility]09-[facility]22 12:14-0400 Respiratory rate16 /minZachary Zumbar [facility]09-08-2022 12:14-0400 Systolic blood ffvfexfw902 mm[Hg]Ronak Zumbar [facility]08-30-2022 10:42-0400 Diastolic blood ceajsggm30 mm[Hg]MD Jeff Terrell Work Phone: 1(038)153-[address] [place], [place] 2981708-30-2022 10:42-0400 Heart rate65 /minMD Gallegolas Ventura Work Phone: 1(830)693-[address] [place], [place] 2981708-30-2022 10:42-0400 Respiratory rate20 /minMD Jeff Terrell Work Phone: 1([phone])[address]08-30-2022 10:42-0400 SaO2% (BldA) [Mass fraction]98 %MD Jeff Terrell Work Phone: 1(835)671-[address] [place], [place] 2981708-30-2022 10:42-0400 Systolic blood yftfnlbk253 mm[Hg]MD Jeff Terrell Work Phone: 1(185)749-[address] [place], [place] 2981708-30-2022 10:01-0400 Inhaled oxygen flow rate3 L/min Jeff Terrell Work Phone: 1(912)[facility]-[address] [place], [place] 2981708-30-2022 08:29-0400 Body deprjv064.96 cmMD Jeff Terrell Work Phone: 1(523)[address]08-30-2022 08:29-0400 Body iggalo503.18 kgMD Jeff Hoy Work Phone: 1(780)760-[address] [place], [place] 2981708-11-2022 10:12-0400 Diastolic blood nuoqikmu63 mm[Hg]Ronak Zumbar [facility]08-11-2022 10:12-0400Heart rate70 /minZachary Zumbar [facility]08-11-2022 10:12-0400Mean blood rewxzqzm28 mm[Hg]Ronak Rao [facility]08-11-2022 10:12-0400 Respiratory rate16 /minZamaria eugenia Rao [facility]08-11-2022 10:12-0400 Systolic blood dbhnbeku355 mm[Hg]Ronak Rao [facility]07-25-2022 10:30-0400Body heightJustin Davida Other [employer] Other 07-25-2022 10:30-0400Body mass index (BMI) [Ratio] 37.23 kg/p8Cnlyzu Davida Other [employer] Other 07-25-2022 10:30-0400Body otiltf649.54 kgJustin Davida Other [employer] Other 06-01-2022 13:00-0400Body heightJustin Davida Other [employer] Other 05-04-2022 15:00-0400Body heightJustin Davida Other [employer] Other 05-04-2022 15:00-0400Body mass index (BMI) [Ratio] 39.54 kg/q6Sjyazt Davida Other [employer] Other 05-04-2022 15:00-0400Body zuzlig801.71 kgJustin Davida Other [employer] Other 04-20-2022 09:15-0400Body heightJustin Davida Other [employer] Other 04-20-2022 09:15-0400Body mass index (BMI) [Ratio] 39.54 kg/z5Tzwtadmarlon Higuera Other [facility] [employer] Other 04-20-2022 09:15-0400Body ewdkwd559.71 kgJustrolly Higuera Other [facility] [employer] Other Encounters Encounter DateEncounter TypeCare ProviderFacilityStart: 07-23-2025 End: 95-69-2420tpcursxpcsVmvygwf HoyFacility:YIMI BellevueStart: 07-23-2025 End: 12-90-5784Lkrftqn encounter procedureMicmatthewl R NILL [phone]-[facility]we[facility] [place] Start: 05-09-2025 End: 32-09-4882fwaepuiluhLzfdp M. LueFacility:TEAGAN [place]uskyStart: 05-09-2025 End: 26-96-6401Hwkmyha encounter procedurePatito Sweet [facility] Start: 05-07-2025 End: 70-91-8886Ghbsndu encounter procedurePatito Martinez MD-Ultrasound [place] Work Phone: Start: 05-07-2025 End: 01-54-0541htkanqzlrqDnmjjwe M Hoy MD Work Phone: [facility] Work Phone: Start: 02-05-2025 End: 14-81-1587qdguvnpduwXchdmcuatMadison Health Work Phone: Start: 02-05-2025 End: 80-36-1815Hgwekzt encounter procedureCounts Include [address] [facility] Work Phone: Start: 01-13-2025 End: 67-98-2919fynsubkhcyIoup T AMESFacility:[facility] Start: 01-02-2025 End: 24-05-0976Uwoqvz flowsheetClive [facility] PA Work Phone: [facility] SWS DERMStart: 01-02-2025 End: 98-66-4026Wwlofj flowsKiraEastern Missouri State Hospital PA Work Phone: [facility] SWS DERMStart: 01-02-2025 End: 91-40-2829Itjduw outpatient new [address] [facility] PA Work Phone: NOHD SWS DERMComment on above:Other rosacea (Primary Dx); Melanocytic nevus of trunk; Capillary angioma; Lentigo simplex; Seborrheic keratosis; Inflamed seborrheic keratosisStart: 01-02-2025 End: 56-75-9939jknqqjwgtjGKAXD NORTHEIMNot AvailableStart: 11-12-2024 End: 34-59-8034qudcjkkzluGDXPVFFBluffton Hospital Start: 11-08-2024 End: 67-71-3696wytkkepkibQgvuc M. LueFacility:EU SanduskyStart: 11-07-2024 ambulatoryTuscarawas Hospitaltart: 11-06-2024 End: 95-51-7089Eyhqmhe encounter procedureJeff Terrell MD Work Phone: [facility]-Ultrasound [place] Work Phone: Start: 11-06-2024 End: 46-31-8937yysgzawogoTkucbzd M Hoy MD Work Phone: [facility] Work Phone: Start: 11-01-2024 End: 24-62-1014isytgsnvunMNGAOCBFort Hamilton Hospital Start: 12-71-3262dahpwqawbdKCPAVIPBluffton Hospital Start: 10-25-2024 End: 55-14-0755Xoacwk Robert Paredes DPM Work Phone: [facility] [place] PODStart: 10-25-2024 End: 42-60-8156Yevywe flowsheetNicholas A Brown DPM Work Phone: noms [place] PODStart: 10-25-2024 End: 85-17-0822Gysldh outpatient visit 15 minutesNicholas A Brown DPM Work Phone: noms [place] PODComment on above:Paronychia, toe, left (Primary Dx); Paronychia, toe, right; Plantar fasciitis; Peroneal tendinitis, rightStart: 10-25-2024 End: 75-47-8562tozjqoyjpsHXSYOPEB A BROWNNot AvailableStart: 10-11-2024 End: 15-09-9976Igvtjw flowsheetNicholas A Brown DPM Work Phone: noMS [place] PODStart: 10-11-2024 End: 22-30-3880Wdvnzg flowsheetNicholas A Brown DPM Work Phone: [facility] [place] PODStart: 10-11-2024 End: 29-60-5393Wpgfjh outpatient visit 15 minutesNicholas A Brown DPM Work Phone: noMS [place] PODComment on above:Paronychia, toe, left (Primary Dx); Paronychia, toe, right; Plantar fasciitis; Peroneal tendinitis, right; Contracture of right ankleStart: 10-11-2024 End: 68-83-3157xyxyrtqygsSLVYRVBE Hussain PAREDESNot AvailableStart: 09-27-2024 End: 00-98-1047Dmpozr flowsheetNicholas A Brown DPM Work Phone: [facility] [place] PODStart: 09-27-2024 End: 68-33-3368Qhujvn flowsheetNicholas A Brown DPM Work Phone: [facility] [place] PODStart: 09-27-2024 End: 26-34-0781Lzjili outpatient visit 15 minutesNicholas A Brown DPM Work Phone: [facility] [place] PODComment on above:Paronychia, toe, left (Primary Dx); Paronychia, toe, right; Plantar fasciitis; Peroneal tendinitis, right; Contracture of right ankleStart: 09-27-2024 End: 47-39-0811ktwgurtvpdKZXTUVPW Hussain PAREDESNot AvailableStart: 09-20-2024 End: 95-24-9063Znvntf flowsheetNicholas A Brown DPM Work Phone: [facility] [place] PODStart: 09-20-2024 End: 81-90-9721Rmczwf flowsheetNicholas A Brown DPM Work Phone: noMS [place] PODStart: 09-20-2024 End: 16-50-6643Gtwmzb outpatient visit 15 minutesNiceric A Brown DPM Work Phone: noMS [place] PODComment on above:Paronychia, toe, left (Primary Dx); Paronychia, toe, right; Pain due to onychomycosis of toenails of both feet; Plantar fasciitisStart: 09-20-2024 End: 05-52-2741pakgopsfxbMDJSVIOG A LENANot AvailableStart: 09-11-2024 End: 28-98-6066Gcyvba outpatient visit 15 minutesNicdagoas A Brown DPM Work Phone: noMS [place] PODComment on above:Paronychia, toe, left (Primary Dx); Paronychia, toe, rightStart: 09-11-2024 End: 27-76-6857Qpexdz flowsannamarieNicdagoas A Brown DPM Work Phone: [facility] [place] PODStart: 09-11-2024 End: 25-30-2617Xfvweg flowsheetNicholas A Brown DPM Work Phone: noMS [place] PODStart: 09-11-2024 End: 85-78-1162wlbmdxkbzkOWWEABMQ A BROWNNot AvailableStart: 08-26-2024 End: 35-85-2525Hdwris flowsheetNicholas A Brown DPM Work Phone: [facility] [place] PODStart: 08-26-2024 End: 90-29-4007Nzqkxj flowsheetNiceric A Lena DPM Work Phone: [facility] [place] PODStart: 08-26-2024 End: 73-96-0250Mixbrl outpatient visit 25 minutesNiceric Paredes DPM Work Phone: noms [place] PODComment on above:Paronychia, toe, left (Primary Dx); Paronychia, toe, rightStart: 08-26-2024 End: 11-64-4294aynbubutcwRCHOPRFC A BROWNNot AvailableStart: 08-20-2024 End: 76-61-4549Mlvfvgyq Result EncounterNicdagoas Hussain Paredes DPM Work Phone: noms External Department UnsolicitedStart: 08-20-2024 End: 69-51-7929Isciizvg Result EncounterNicholas A Lena DPM Work Phone: noms External Department UnsolicitedStart: 08-20-2024 End: 78-50-0820Cszaohy encounter procedureMD Jeff Terrell Work Phone: [facility]-Electrodiagnostics Work Phone: Start: 08-20-2024 End: 29-25-2649ysapnllhpfJL Jeff Martinez Hozan Work Phone: [facility] Work Phone: Start: 08-05-2024 End: 42-22-2528Qhbryx flowsheetNicdagoas A Brown DPM Work Phone: [facility] [place] PODStart: 08-05-2024 End: 82-47-0036Hhnsaz flowsheetNicholas A Brown DPM Work Phone: [facility] [place] PODStart: 08-05-2024 End: 59-35-8044jibtwwnppxKNHVGXWM A BROWNNot AvailableStart: 08-05-2024 End: 28-41-9943Pgbiqq outpatient new 30 minutesNiceric A Lena DPM Work Phone: NOBM [place] PODComment on above:Pain due to onychomycosis of toenails of both feet (Primary Dx); Plantar fasciitis; Paronychia, toe, left; Paronychia, toe, rightStart: 07-08-2024 End: 46-19-4962umadukujvfBG Jeff M Hoy Work Phone: [facility] Work Phone: Start: 07-08-2024 End: 70-22-8544Fqygbaoffv RecurringMD Jeff Hoy Work Phone: [facility]-Physical Therapy [place]: 06-12-2024 End: 74-75-8373ydmbkgdxsaGC Jeff M Hoy Work Phone: [facility] Work Phone: Start: 06-12-2024 End: 45-05-6881Lhdkcct encounter procedureMD Jeff Hoy Work Phone: [facility] [address] [facility] Work Phone: Start: 37-10-8067Psvcxlgxnh RecurringMD Jeff Hoy Work Phone: [facility]-Physical Therapy [place]Start: 05-20-2024 End: 25-02-0030tmqmwgdyxkGI Jeff M Hoy Work Phone: [facility] Work Phone: Start: 05-20-2024 End: 21-76-1377Cbxqxdm encounter procedureMD Jeff Hoy Work Phone: [facility] [address] [facility] Work Phone: Start: 05-09-2024 End: 56-17-0055Ytmgvms encounter procedurePatito Sweet [facility] Start: 05-07-2024 End: 87-50-0272cmjehtsefxXB Jeff M Hoy Work Phone: [facility] Work Phone: Start: 05-07-2024 End: 29-93-5857Vixcqhp encounter procedureMD Jeff Hoy Work Phone: [facility]-Ultrasound [place] Work Phone: Start: 04-29-2024 End: 61-01-8600tfshdlzrjrAL Jeff M Hoy Work Phone: [facility] Work Phone: Start: 04-29-2024 End: 52-92-4092Gsccmrf encounter procedureMD Jeff Hoy Work Phone: [facility] [address] [facility] Work Phone: Start: 03-13-2024 End: 41-09-4207jlsrouubgmST Jeff M Hoy Work Phone: [facility] Work Phone: Start: 03-13-2024 End: 30-16-2853Bazvluo encounter procedureMD Jeff Hoy Work Phone: [facility] [address] [facility] Work Phone: Start: 03-13-2024 End: 12-90-7102ctzxfudlyjYU Jeff M Hoy Work Phone: [facility] Work Phone: Start: 03-13-2024 End: 86-57-0883Lxrsjfs encounter procedureMD Jeff Hoy Work Phone: [facility]-XRay [facility] Start: 02-19-2024 End: 64-20-2554bibxmskmmoGJ Jeff M Hoy Work Phone: [facility] Work Phone: Start: 02-19-2024 End: 27-08-1498Kdicogm encounter procedureMD Jeff Hoy Work Phone: [facility] [address] [facility]-Lead-[facility] Work Phone: Start: 32-86-6577Qdf-patient / Non-visitCounts Include [address] [facility]-Lead-[facility] Work Phone: Start: 02-01-2024 End: 85-32-2979rkxdddacjmHO Jeff M Hoy Work Phone: [facility] Work Phone: Start: 02-01-2024 End: 71-46-6925Szlvcvu encounter procedureMD Jeff Hoy Work Phone: [facility] [address] [facility] Work Phone: Start: 01-10-2024 End: 04-95-5202fdaaxqyycxIJ Jeff M Hoy Work Phone: [facility] Work Phone: Start: 01-10-2024 End: 78-95-2041Vrgmqpx encounter procedureMD Jeff Hoy Work Phone: [facility] [address] [facility] Work Phone: Start: 12-06-2023 End: 96-81-1960kzffkrmexlLK Jeff M Hoy Work Phone: [facility] Work Phone: Start: 12-06-2023 End: 05-51-0583Fwcnvmu encounter procedureMD Jeff Hoy Work Phone: [facility] [address] [facility] Work Phone: Start: 12-04-2023 End: 35-31-4431sianpimvbrFC Jeff M Hoy Work Phone: [facility] Work Phone: Start: 12-04-2023 End: 24-06-7220Cekauqj encounter procedureMD Jeff Hoy Work Phone: [facility] [address] [facility] Work Phone: Start: 49-40-7183Acrkownztv RecurringMD Jeff Hoy Work Phone: [facility]-Physical Therapy [place]: 11-23-2023 End: 00-89-5135Rqogqpp encounter procedureMD Jeff Hoy Work Phone: [facility]-Lab [place] Work Phone: Start: 11-10-2023 End: 42-75-5453qgliqhqjmkPkxefux Calv[employer]ose a Other [employer] Other Start: 73-87-2962Tjqijgraz for other preprocedural examinationColleen CalveyFPG [facility]opedicsStart: 09-29-0867Cnlacj follow up visit related to original pxColleen CalveyFPG [facility]opedicsStart: 11-03-2023 End: 90-51-7439Dimyaxc encounter procedurePatito Sweet [facility] Start: 10-30-2023 End: 43-42-0793Lgqawgbjd to same day surgery centerMD Jeff Hoy Work Phone: [facility]: 10-30-2023 End: 96-09-5352rqtdgpjtbxEM Jeff M Hoy Work Phone: [facility] Work Phone: Start: 10-25-2023 End: 20-24-6689fkpspuovmpMcohphm Calvjose a Other [employer] Other Start: 94-20-7874Mmklotbwq for other preprocedural examinationColleen CalveyFPG [facility]opedicsStart: 88-75-0555Obfjgn outpatient new 45 minutesColleen CalveyFPG [facility]opedicsStart: 10-25-2023 Telephone encounterColleen Katie [facility]icsStart: 10-25-2023 End: 39-84-9701Yrxovao encounter procedureMD Jeff Hoy Work Phone: [facility] [address] [facility] Work Phone: Start: 09-26-2023 End: 24-73-6769Cjraugptf to same day surgery [facility] Latisha ainsley [facility] Start: 09-20-2023 End: 58-21-8967pqcnzbahcaPfgcwlnp [place] Other [place] [employer] Other Start: 3661Hwukgu outpatient visit 15 minutes Janine CaesarMATHIEU [facility] OrthopedicsStart: 09-20-2023 End: 40-79-1443Yctowxq encounter procedureMD Jeff Hoy Work Phone: [facility] [address] [facility] Work Phone: Start: 09-15-2023 End: 56-55-3634clixdyoklbWM Jeff M Hoy Work Phone: [facility] Work Phone: Start: 09-15-2023 End: 98-85-4789Jtkspgl encounter procedureMD Jeff Hoy Work Phone: [facility] Work Phone: Start: 09-06-2023 End: 54-48-6507ngtdyuqcacEfapje Kelley Other [facility] [employer] Other Start: 22-31-1897Dpejqm follow up visit related to original pxJustrolly GilletteG [facility] OrthopedicsStart: 09-06-2023 End: 53-48-9530Xztqbhf encounter procedureMD Jeff Hoy Work Phone: [facility] [address] [facility] Work Phone: Start: 08-29-2023 End: 16-03-3813Gxkmwkbfv to same day surgery centerMD Jeff Hoy Work Phone: [facility]Start: 08-29-2023 End: 20-85-1210jtjmwhdqetFR Jeff M Hoy Work Phone: [facility] Work Phone: Start: 2023 End: 43-26-8288Zfxkutbrq department patient visitMD Jeff Hoy Work Phone: [facility]-Emergency Room Work Phone: Start: 03-67-9695Vpxdgqkqha RecurringMD Jeff Hoy Work Phone: [facility]-Physical Therapy [place]: 08-18-2023 End: 71-08-8665Uhzujoo encounter procedurePatito Sweet [facility] Start: 08-15-2023 End: 35-44-0272uatmymejdoHM Jeff M Hoy Work Phone: [facility] Work Phone: Start: 08-15-2023 End: 38-46-4765Lmhhccc encounter procedureMD Jeff Hoy Work Phone: [facility]-Pre-Surgical Testing Work Phone: Start: 07-26-2023 End: 83-34-6804zdbxklndqnTeemyj Kelley Other [facility] [employer] Other Start: 49-45-0362Lqyosb outpatient visit 25 minutes Gaurav [facility] OrthopedicsStart: 07-24-2023 End: 90-72-7862nplpnwtoyoBL Ejff M Hoy Work Phone: [facility] Work Phone: Start: 07-24-2023 End: 12-05-4435Xzmohjrcll RecurringMD Jeff Hoy Work Phone: [facility]-Physical Therapy [place]: 77-49-6749Vhkjtmllpv RecurringMD Jeff Hoy Work Phone: [facility]-Physical Therapy [place]Start: 27-12-3684Hrmgirlehu RecurringMD Jeff Hoy Work Phone: [facility]-Physical Therapy [place]: 07-13-2023 End: 83-08-9094Ymfqvoe encounter procedureJENNIFER E HEIDY [facility] Start: 07-06-2023 End: 88-01-0806sqklfjggagEcrmbi Felter Other [employer] Other Start: 56-62-4069Afnspu outpatient visit 15 minutes Tomi Fernandez [facility] Management [place]: 06-30-2023 End: 44-44-0398vjtpxvrubzWgtvuk Kelley Other [employer] Other Start: 42-82-2349Gkpiux outpatient visit 25 minutes Gaurav GilletteG [facility]opedicsStart: 06-12-2023 End: 36-31-5327wxfkzycfeyCxtdbr Davida Other [employer] Other Start: 11-76-3012Trabcm follow up visit related to original pxJustin NainG [facility]opedicsStart: 06-07-2023(Procedure) ShortThomas FelterErie [facility] CenterStart: 06-07-2023 End: 08-41-2227mghzloifdrVcbjhp Felter Other [employer] Other Start: 05-31-2023 End: 85-10-5276Nxoebpa encounter procedureLindatammi Sweet [facility] Ela start: 78-23-1007Ccbrdtbqr encounterThomas FelterFPG [facility]icsStart: 05-25-2023 End: 91-32-7122bahchufayeOC Jeff M Hoy Work Phone: [facility] Work Phone: Start: 05-25-2023 End: 34-95-9343Uvzvbby encounter procedureMD Jeff Hoy Work Phone: [facility]-XRay [facility] Start: 04-25-2023 End: 90-45-4544Tnvououfr to same day surgery centerMD Jeff Hoy Work Phone: [facility]-Surgery Center Main CampusStart: 04-25-2023 End: 20-73-7832gfltcztkqySM Jeff M Hoy Work Phone: [facility] Work Phone: Start: 03-31-2023 End: 97-12-5665wmhvvsuipvZW Jeff M Hoy Work Phone: [facility] Work Phone: Start: 03-31-2023 End: 92-44-6175Oeoasbe encounter procedureMD Jeff Hoy Work Phone: [facility]-Lab [place] Work Phone: Start: 03-24-2023 End: 38-77-4271xzxrjoidwqOttonb Davida Other [employer] Other Start: 84-50-4692Hjntyljnp for other preprocedural examinationJustin NainG [facility]opedicsStart: 23-43-5104Skowce outpatient visit 25 minutesJustin DavidaFPG [facility]icsStart: 03-14-2023 End: 99-65-9564Wgwocmxlh to same day surgery centerMD Jeff Hoy Work Phone: [facility]-Surgery Center Main CampusStart: 03-14-2023 End: 77-90-3583acmewdfktmNU Jeff M Hoy Work Phone: [facility] Work Phone: Start: 68-46-1341cberanzrlmHQ JEFF HARRISONY .Facility: Start: 02-28-2023 End: 41-28-7372wcoypeabhtJI Jeff M Hoy Work Phone: [facility] Work Phone: Start: 02-28-2023 End: 40-23-9270Ckcbhlr encounter procedureMD Jeff Hoy Work Phone: [facility]-Pre-Surgical Testing Work Phone: Start: 02-24-2023 End: 61-85-3312ktvssusjmdPcqurb Davida Other [employer] Other Start: 70-53-2290Ugknfr outpatient visit 25 minutes Gaurav Mcduffie [facility]opedicsStart: 02-07-2023 End: 56-60-2314fsimgyckytDklpsa Haylee Other [employer] Other Start: 92-39-6137Xdonta outpatient visit 25 minutes Tomi Fernandez Pain Management [place]Start: 26-97-2721Gpgznlonj encounter Tomi Navarrousky OrthopedicsStart: 02-01-2023 End: 49-75-2888rbwessczimScnhes Davida Other [employer] Other Start: 79-52-5357Wpsbhh outpatient visit 25 minutes Gaurav [facility] OrthopedicsStart: 01-30-2023 End: 42-23-8525Ydgjusgmz department patient visitMD Jeff Terrell Work Phone: [facility]-Emergency Room Work Phone: Start: 01-16-2023 End: 10-80-3764Wqfcnuu encounter procedurePatito Sweet [facility] Start: 01-11-2023 End: 81-13-1642djwbteupmmSQXGARMP GUIDOFacility:A2Cmmdd: 88-17-8809Vpwlcrxvw for preprocedural laboratory examinationPATITO SWEET .[facility]art: 01-06-2023 End: 14-65-6176Hecicfe encounter procedureDokendy Hunterzan [facility] Start: 12-30-2022 End: 77-94-5200azniqqlwwdZMAJW M LUE .Facility:X9Hnppq: 12-30-2022 End: 49-27-7888Zkednsyne for preprocedural laboratory examinationPATITO SWEET . Facility:S8Xkdto: 12-21-2022 End: 30-38-1299Fytheln encounter procedurePatito Sweet [facility] start: 12-14-2022 End: 09-56-0846whjifrxgtrSF MYRA V WESTFacility:P0Lebqc: 11-29-2022 End: 22-60-5967Mvpggutfd to same day surgery centerMD Jeff Terrell Work Phone: [facility]-Surgery Center Main CampusStart: 11-29-2022 End: 78-62-9473ripbmmoplxFD Jeff Terrell Work Phone: [facility] Work Phone: Start: 11-24-2022 End: 81-16-4793zzgdyodwkyDivrye Felter Other [place] [employer] Other Start: 43-51-8417Syouba outpatient visit 25 minutes Tomi Fernandez [facility] [place]Start: 63-89-1627Idvwukfzj encounter Tomi Fernandez [facility] Management [place]Start: 11-08-2022 End: 63-06-3715Buwrcfw encounter procedurePritesh Kolb AMIE [facility] Start: 11-04-2022 End: 06-80-6971Nvjvxmt encounter procedurePatito Sweet [facility] Start: 11-02-2022 End: 18-92-2416Dnvocatif to same day surgery centerMD Jeff Terrell Work Phone: [facility]-CT Scan [place] Work Phone: Start: 11-02-2022 End: 98-09-2074xeqtiqdaqkWN Jeff Terrell Work Phone: [facility] Work Phone: Start: 10-26-2022 End: 42-98-0734Qbm Drop offPatito Sweet [facility] Start: 10-26-2022 End: 69-42-1298Emrhtrx encounter procedurePatito Sweet [facility] Start: 10-21-2022 End: 40-53-6745Ljcldoc encounter procedurePatito Sweet [facility] Start: 10-21-2022 End: 59-02-9697xtbhexvbpdAFQVOID BARROWSFacility:D5Odkkx: 10-05-2022 End: 05-88-7216zbfgeksvskJF STEVEN R ZIEBERFacility:H8Dxuhx: 09-30-2022 End: 66-97-2970Yzdgprskj to same day surgery centerMD Jeff Hoy Work Phone: [facility]Start: 09-30-2022 End: 18-97-9564xiqvstqvngZK Jeff Juan Harrisonzan Work Phone: [facility] Work Phone: Start: 09-29-2022 End: 60-95-6308okfzbslppnCY JEFF TERRELL .Facility:C4Ifcmc: 09-28-2022 End: 86-95-2298nslqjxhxboYX STEVEN R ZIEBERFacility:X8Wexxg: 09-21-2022 End: 79-71-8518Arj Drop offPatito Sweet [facility] Start: 09-21-2022 End: 35-40-8675Srnfdel encounter procedurePatito Sweet [facility] [place] start: 09-20-2022 End: 96-54-0122vawuedgahpAX JEFF TERRELL .Facility:W4Jonlt: 08-29-2022 End: 71-21-8125exlmpftkfdMuvfgf Felter Other [place] [employer] Other Start: 91-91-3544Cmxpryvue encounterThomas FelterFPG [facility]icsStart: 08-23-2022 End: 72-19-8333Ceutyqquh to same day surgery centerMD Jeff Hoy Work Phone: [facility]-Surgery Center Main CampusStart: 08-23-2022 End: 43-04-7220bvacsqnhgrTV Jeff Martinez Hozan Work Phone: [facility] Work Phone: Start: 08-19-2022 End: 79-28-0926xpqkcvvynuTI Douglas M Hoy Work Phone: [facility] Work Phone: Start: 08-19-2022 End: 92-17-3681Qztudks encounter procedureMD Jeff Terrell Work Phone: [facility]-Pre-Surgical Testing Start: 08-15-2022 End: 22-68-3918gserdhneyeZhtqer Feltoni Other [employer] Other Start: 65-81-8395Deswas outpatient visit 25 minutes Tomi Fernandez [facility] [place]Start: 08-12-2022 End: 17-08-7390ykxrbxawaiLS Jeff Terrell Work Phone: [facility] Work Phone: Start: 08-12-2022 End: 99-02-2922Pbyzzvy encounter procedureMD Jeff Terrell Work Phone: [facility]-Pre-Surgical Testing Start: 08-11-2022 End: 97-12-3384pgouhxgxvbZtvh Braun [facility] [employer] Other start: 68-57-5799Aglgnc outpatient new 30 minutesDaelpidio Fenton [facility] NeurosurgeryStart: 99-38-4770Zdzbykzks encounterDale Ariel [facility] Referral CoordinatorStart: 08-10-2022 End: 68-02-9923Cdcrxbp encounter procedurePatito Sweet [facility] start: 08-08-2022 End: 26-68-5862eqqisllsyjDotcmv Felter Other [employer] Other Start: 96-66-3671Ewpnlspzy encounterThomas FelterFPG [facility]icsStart: 08-03-2022 End: 52-47-0929qazksjibezHD Jeff M Hozan Work Phone: [facility] Work Phone: Start: 08-03-2022 End: 30-28-2165Fqsftfu encounter procedureMD Jeff Hozan Work Phone: [facility]-CT Scan Main [place] Start: 08-02-2022 End: 46-20-0949xtagccaupoHmkrih Felter Other [employer] Other Start: 73-39-2051Mxdfdf outpatient visit 25 minutes Tomi Fernandez [facility] [place]Start: 07-26-2022 End: 03-40-6212Wxanhiece to same day surgery centerMD Jeff Hozan Work Phone: [facility] Ctr-Digestive HealthStart: 07-26-2022 End: 92-07-5519fblfecviybQW Jeff Martinez Hozan Work Phone: [facility] Work Phone: Start: 07-21-2022 End: 24-99-1364ilxzgyyqpmUdzsvi Felter Other [employer] Other Start: 26-67-8641Ycujyalxr encounterThomas FelterFPG [facility]icsStart: 07-18-2022 End: 52-57-6049Mcxrmyp encounter procedureZamaria eugenia Carlosumbar [facility] Start: 07-14-2022 End: 94-60-0208Ttlnrbl encounter procedurePasusan Kartik SOLIZ [facility] Jeremias Start: 07-12-2022 End: 53-49-4673Xascenq encounter procedureLindatammi Sweet [facility] Start: 06-27-2022 End: 87-14-6724dutgbfsdkaEfrvkp Felter Other [employer] Other Start: 42-21-6419Sbicyd outpatient visit 25 minutes Tomi Fernandez [facility] [place]Start: 06-23-2022 End: 61-80-5276Uhit ManagementZamonroe [facility] medical center Jalen [facility] Start: 06-22-2022 End: 92-29-2158Vrjgeug encounter procedureLindatammi Sweet [facility] Ela start: 06-14-2022(Procedure) ShortThomas Felter [facility] OutPtStart: 06-14-2022 End: 57-58-8423pqaorlvvgxVyreio Felter Other [employer] Other Start: 06-14-2022 End: 97-40-2235Vmjrmtajq to same day surgery centerMD Jeff Terrell Work Phone: [facility]-Digestive HealthStart: 06-08-2022 End: 70-06-1985rcsardflvjPN JEFF TERRELL .Facility:H1Takdi: 05-26-2022 End: 93-43-6834dmiwrlqezgMozcpk Kelley Other [employer] Other Start: 91-08-5976Dpvyvwzse encounterJustin TrevonosminCARLOSG [facility]icsStart: 05-26-2022 End: 04-54-7945Ebrgngr encounter procedureZachalindsey Talbotar [facility] Start: 05-26-2022 End: 37-89-5866Qjct ManagementZachalindsey Rao [facility] Start: 05-20-2022 End: 94-79-2410Yreibrj encounter procedureMD Jeff Terrell Work Phone: [facility] CampusStart: 05-09-2022 End: 58-13-2731slskvmiiglKsgaay Davida Other [employer] Other Start: 39-19-9147Ybpyws outpatient visit 25 minutes Gauravrolly Mcduffie [facility]icsStart: 05-09-2022 End: 55-87-2303Ucycync encounter procedureMD Jeff Terrell Work Phone: [facility]-XRay [facility] Start: 05-05-2022 End: 95-37-3387slbfsjjuqqNmrnpg Davida Other [employer] Other Start: 49-52-6467Juinudfad encounterJustin NainG [facility]icsStart: 03-16-2022 End: 34-80-7602eljijvvcbzTmlisr Davida Other [employer] Other Start: 35-90-3282Tnxnvr outpatient visit 15 minutes Gaurav Mcduffie [facility]icsStart: 02-21-2022(Procedure) ShortThomas FelterErie [facility] CenterStart: 02-21-2022 End: 81-22-0749hdmnhrfmttEmglqq Felter Other nort [employer] Other Start: 02-16-2022 End: 85-51-4968hduxqfxascSuuttc Davida Other [employer] Other Start: 30-49-4801Gmezwq outpatient visit 15 minutes Gaurav DavidaFPG [facility]icsStart: 02-02-2022 End: 87-94-4015eputoavkvzZecnaw Davida Other [employer] Other Start: 77-57-6902Gzqieq outpatient visit 15 minutes Gaurav DavidaFPG [facility]icsStart: 11-04-2021 End: 54-24-2915kpzxruocgvOdiqom Davida Other [employer] Other Start: 46-81-3217Agsfrrqdl encounterJustin KelleyFPG [facility] Procedures DateProcedureProcedure DetailPerforming ClinicianStart: 58-23-6898Rccurf abdominal X-rayJeff Terrell MD Work Phone: Start: 00-52-3952Fifwugkfnezzwbr of bilateral kidneys Jeff Terrell MD Work Phone: Start: 99-12-6954INGNDRTSJRW SKIN LESIONRylee [facility] Work Phone: Start: 90-34-3060Gmvna X-ray abdomenJeff Terrell MD Work Phone: Start: 90-08-0311Yzfmqfcxunvzuse of bilateral kidneys Jeff Terrell MD Work Phone: Start: 88-06-1232Gboqb metabolic panel calcium total Venkat Hussain Paredes DP Work Phone: Start: 52-50-7214Tjpynhjs blood count with white cell differential, automatedNiceric Paredes DPM Work Phone: Start: 84-57-7673Wjouyuniyj radiography of abdomenMD Jeff Hoy Work Phone: Start: 97-18-1949Elwavhrvhmqujuh of bilateral kidneys Jeff Hoy Work Phone: [phone]: 42-34-6724E-ray of left kneeMD Jeff Hoy Work Phone: [phone]-art: 06-18-5164Vmbcrap of trigger fingerMD Jeff Hoy Work Phone: [phone]: 74-20-0425Zakkxemfzeldf cystoscopyKathy Lue Start: 91-13-5946Jrfhv chest X-rayMD Jeff Hoy Work Phone: [phone]: 73-82-7324Tgchatyulfizh of median nerveMD Jeff Hoy Work Phone: [phone]-art: 69-32-3043L-ray of cervical spineMD Jeff Hoy Work Phone: [phone]-art: 48-08-9759Unqrzixtioixb of median nerveMD Jeff Hoy Work Phone: [phone]-: 68-53-7780Qgnhaphmzbfrc of median nerveMD Jeff Hoy Work Phone: [phone]-: 89-80-5200Hrasq X-ray of left elbowMD Jeff Hoy Work Phone: [phone]-art: 50-76-0697PdqdqwbfcpCA Jeff Hoy Work Phone: [phone]-art: 52-08-0269Tcneonshutk laser lithotripsy of ureteric calculusKathy Lue Start: 38-48-5913Jsdpdya microbial cultureMD Jeff Hoy Work Phone: [phone]-art: 68-63-9535Ewqblehck microbial cultureMD Jeff Hoy Work Phone: [phone]-art: 18-09-5183Iiksnbdkojesu of transfusion reaction MD Jeff Terrell Work Phone: [phone]-art: 06-86-4940FD guided percutaneous therapeutic drainageMD Jeff Hoy Work Phone: [phone]-art: 30-79-6726BkjarwfdtyDZ Jeff Hoy Work Phone: [phone]-art: 53-80-7317Nuchppgjbb radiography of abdomenMD Jeff Hoy Work Phone: [phone]-: 76-10-3091Phwhpozcbxmayr shockwave lithotripsy of calculus of kidneyMD Jeff Hoy Work Phone: [phone]-: 20-12-1655Dysumxijkx radiography of abdomenMD Jeff Hoy Work Phone: [phone]-art: 11-64-1437Rziumcojulnybo shockwave lithotripsy of calculus of kidneyKathy Lue Start: 23-78-5551Vulmr chest X-rayMD Jeff Hoy Work Phone: [phone]-: 99-67-6879MV of abdomen and pelvis without contrastMD Jeff Hoy Work Phone: [phone]-: 18-22-7966Ppukxyifyz radiography of abdomenMD Jeff Hoy Work Phone: [phone]-: 89-62-8145Iaiyazug injection of lumbar spine using fluoroscopic guidanceMD Jeff Hoy Work Phone: [phone]-: 03-61-6807OynvkqrtdqUxgla Lue Start: 40-26-3002Fyvyndasd of spinal epidural spaceMD Jeff Hoy Work Phone: [phone]-art: 39-62-8712ALH of lumbar spine with contrastMD Jeff Hoy Work Phone: [phone]-art: 13-90-5373R-ray of lumbar spine, four viewsMD Jeff Hoy Work Phone: [phone]-art: 27-97-4918Tlfkrckt injection of cervical spine using fluoroscopic guidanceKathy Lue Comment on above:C6/[address] Bowles at [facility].Start: 19-45-5549Iomoblvb injection of cervical spine using fluoroscopic guidanceZachary Zumbar start: 24-05-5611Otayqbwn injection of cervical spine using fluoroscopic guidanceZajanry Zumbar start: 63-03-8815RlawwgebyqkIgmtvdn NILL Start: 38-24-8365Mbgi structure, excluding neck (body structure)Ronak Rao comment on above:lumbar fusionBiopsy of lungMichael NILL Biopsy of thyroidMichael NILL Decompression of median nerveMichael NILL History of decompression of median nerveS/P carpal tunnel releaseMD Jeff Hoy Work Phone: Lumbar spinal fusionMichael NILL TonsillectomyMichael NILL Total knee replacementZamaria eugenia Carlosumbhiram Total knee replacementKathy Lue TympanotomyMichael NILL Ulnar nerve entrapment (disorder)Lima NILL Plan of Treatment DateCare ActivityDetailAuthorStart: 01-02-2026 End: 07-11-6310Pyyxjpi encounter ovxlmxedu87/20/2026 9:00 AM EDT Office Visit NOMBob [facility]IOS [facility] [address] [place] [address] Clive Santiago PA [address] [place] [address] BRITTANY LARIOS DERMStart: 36-85-2589dlxrzkqwfwNzfrgyscde Facility: [place]: 01-02-2025 End: 83-99-7037Rwegguw encounter /20/2025 9:10 AM EDT Office Visit BRITTANY LARIOS DERM [address] [place] [address] Clive Santiago PA [address] [place] [address] ArrivedNOMS SWS DERMComment on above:ArrivedStart: 10-25-2024 End: 28-48-5866Myyuxpf encounter procedureNOMS [place] PODComment on above: Paronychia, toe, left (Primary Dx); Paronychia, toe, right; Plantar fasciitis; Peroneal tendinitis, rightStart: 10-11-2024 End: 63-21-2415Pelkclq encounter procedureNOMS [place] PODComment on above: Paronychia, toe, left (Primary Dx); Paronychia, toe, right; Plantar fasciitis; Peroneal tendinitis, right; Contracture of right ankleStart: 09-27-2024 End: 56-21-9071Qejjnqq encounter procedureNOMS [place] PODComment on above: Paronychia, toe, left (Primary Dx); Paronychia, toe, right; Plantar fasciitisStart: 09-20-2024 End: 92-27-4737Dnlvylf encounter procedureNOMS [place] PODComment on above: Paronychia, toe, left (Primary Dx); Paronychia, toe, right; Pain due to onychomycosis of toenails of both feet; Plantar fasciitisStart: 09-11-2024 End: 56-41-6856Sljoatw encounter procedureNOMS [place] PODComment on above: Paronychia, toe, left (Primary Dx); Paronychia, toe, rightStart: 08-26-2024 End: 20-82-8846Jiviimr encounter procedureNOMS [place] PODComment on above: Paronychia, toe, left (Primary Dx); Paronychia, toe, rightStart: 29-48-2947Nloqgoa referralWilson [facility] Work Phone: Start: 58-33-6286G-ray of left kneeXR knee LT 3V - NOT FOR ER USEOhioHealth Van Wert Hospitaltart: 35-88-3568LX Knee - left 3 ViewsOhioHealth Van Wert Hospitaltart: 31-55-6177GiwehimmqOhioHealth Van Wert Hospitaltart: 26-84-7117MsvwsahdnOhioHealth Van Wert Hospitaltart: 61-70-5978RzztqthcsOhioHealth Van Wert Hospitaltart: 71-90-3622NnxriwzlpOhioHealth Van Wert Hospitaltart: 69-34-3560DwloalghfOhioHealth Van Wert Hospitaltart: 56-68-2991KrseefgdwOhioHealth Van Wert Hospitaltart: 36-58-1175ZvonlzcwuOhioHealth Van Wert Hospitaltart: 04-04-4331XscxxhaniOhioHealth Van Wert Hospitaltart: 82-09-8898FlujeyazmOhioHealth Van Wert Hospitaltart: 63-76-7268TmdlkfqwqOhioHealth Van Wert Hospitaltart: 09-00-5699Buoxrut CultureAerobic CultureOhioHealth Van Wert Hospitaltart: 53-08-5887Amneejiel CultureAnaeroc CultureOhioHealth Van Wert Hospitaltart: 16-25-4871Moxapinvgja observation [Identifier] in Unspecified specimen by Gram stainGram StainOhiohealth Mansfield Hospital Start: 10-87-7443OfjpzxqbwOhioHealth Van Wert Hospitaltart: 39-92-5073Tbttrdhef culture, body fluidOhioHealth Van Wert Hospitaltart: 69-38-0422CL guided percutaneous therapeutic drainageOhioHealth Van Wert Hospitaltart: 29-38-0460SxjxtelrbOhioHealth Van Wert Hospitaltart: 08-23-2022 End: 29-52-9593EhzhukcvzOhioHealth Van Wert Hospitaltart: 27-59-1783CqczzfddfOhioHealth Van Wert Hospitaltart: 69-08-8216ChbipksgaOhioHealth Van Wert Hospitaltart: 49-51-6727Cwffxbnfm of spinal epidural spaceDH Epidural Transforaminal (Right) [facility] Hospitaltart: 06-14-2022 End: 90-83-2269Wjydwrgnu to same day surgery centerDeparted Surgical Day Care [facility] Ctr-Digestive HealthStart: 56-79-5655AGM of lumbar spine with contrastMR lumbar spine wo/w [facility] Start: 05-20-2022 End: 39-29-7480Vwctsum encounter procedureDeparted ClinicalMercy Health [facility] Ctr-MRI Main CampusBacteria identified in Unspecified specimen by Aerobe cultureOhiohealth Mansfield HospitalBacteria identified in Unspecified specimen by Anaerobe cultureOhiohealth Mansfield HospitalBilirubin measurementOhiohealth Mansfield HospitalBody weightOhiohealth Mansfield HospitalCalcium carbonate/Total in [facility] Calcium hydrogen phosphate dihydrate/Total in [facility] CenterCalcium oxalate monohydrate/Total in [facility] CenterCalcium phosphate levelOhiohealth Mansfield HospitalCalculus analysis with calculus photography [Interpretation] in [facility] CenterCalculus analysis, qualitativeOhiohealth Mansfield HospitalCalculus analysis, quantitativeOhiohealth Mansfield HospitalCalculus analysis, quantitative, infrared spectroscopyOhiohealth Mansfield HospitalCellular material [Mass/mass] of Stone by EstimatedOhiohealth Mansfield Hospital Cholesterol [Mass/volume] in Serum or PlasmaOhiohealth Mansfield Hospital Cystine measurementOhiohealth Mansfield HospitalDetermination of calculus chemical compositionOhiohealth Mansfield HospitalEvaluation procedure [facility] HospitalGlucose measurement estimated from glycated hemoglobinOhiohealth Mansfield HospitalHemoglobin A1c measurementOhiohealth Mansfield HospitalHydroxyapatite [Energy Difference] in 24 hour Urine [facility] HospitalLaboratory data interpretationOhiohealth Mansfield HospitalNewberyite/Total in [facility] CenterPatient EducationMercy Health [facility] Ctr Work Phone: Patient referralMercy Health [facility] Ctr Work Phone: Specimen source subject [Type][facility] HospitalTriamterene measurementOhiohealth Mansfield HospitalTriple phosphate/Total in [facility] CenterXR Knee - left 3 Views [facility] Immunizations Immunization DateImmunizationNotesCare MqqeotcnKiazgeju89-69-8437vgevfua toxoid, reduced diphtheria toxoid, and acellular pertussis vaccine, adsorbedMD Jeff Harrisonzan Work Phone: [facility] HospitalNEGATED: Highlighted row has not occurred!16-74-8481CDGD-CoV-2 mRNA (tozinameran 5y-11y) vaccineKathy Lue [facility] Payers DatePayer CategoryPayerPolicy [id number] (Managed Care) [id number] 2023Medicare [id number] 2.16.840.1.371727.3.57[id number] 2.16.840.1.881581.3.57[id number] 2.16.840.1.724502.3.57[id number] 2.16.840.1.269226.3.57[id number] 2.16.840.1.416651.3.57[id number] 2.16.840.1.252790.3.57[id number] 2.16.840.1.550120.3.57[id number] 2.16.840.1.474696.3.579.[id number] 2.16.840.1.091772.3.57[id number] 2.16.840.1.104751.3.579.[id number] 2.16.840.1.468986.3.57[id number] 2.16.840.1.177561.3.579.2.[id number] 2.16.840.1.175786.3.57[id number] 2.16.840.1.246024.3.57[id number] 2.16.840.1.524477.3.579.2.855777-23-9038Czdjywp6778831 2..840.1.682937.3.579.2.349051-25-9840Otzrmmb8972395 2..840.1.639991.3.579.2.017416-71-3526Dugdkoi6237747 2.16.840.1.466936.3.579.2.767352-55-4778Umumooy8308028 2..840.1.452481.3.57[id number] 2..840.1.158986.3.579.2.39113-26-1351Rhsytxf16458066 2.16.840.1.465387.3.579.2.2[id number] 2..840.1.652174.3.57[id number] 2.840.1.136748.3.579.2.727 [id number] 2.16.840.1.843914.19 [id number] 2.16840.3.507400.274119 [id number] 37-60-9820Scjvjsw Health [id number] 29-55-7201Fdxl-[id number] 2.16.840.1.890081.19 UnknownAnthem /[id number]'s CompensationCare [employer] of [place]-[id number] Social History DateTypeDetailFacilityUnknown if ever smokedTower Hill [employer] Other Start: 08-05-2024 End: 99-55-3498Dkd Assigned At Secret LabTower Hill [employer] Other Start: 03-04-2021 End: 72-58-7259Tygbolg smoking statusNever smoked tobacco (finding)[facility] Work Phone: Start: 95-61-4113Dkh Assigned At [facility] HospitalTobacco smoking statusNeverExecutive Urology of [facility] BellevueTobacco smoking status NHISTobacco smoking consumption unknownNOMS HealthcareStart: 91-38-4203Mnblkh identityIdentifies as male gender (finding)[facility] HealthcareStart: 48-43-6063Efgkhs orientation Heterosexual (finding)[facility] HealthcareStart: 11-22-7512Tkdkctk use and exposure Smokeless tobacco non-userNOMS HealthcareStart: 08-05-2024 End: 62-24-9994Ogrpwtgbw beverage intakeDeferNOMS HealthcareStart: 08-05-2024 End: 02-32-7975Ycgsodb of Social functionNOMS HealthcareStart: 01-03-2019 End: 20-22-8016EfkBoxc (finding)[facility] Hospitalexual OrientationExecutive Urology of [facility] Jeremias NEGATED: Highlighted rowStart: NINFHistory of tobacco usePassive smokerNOMS Healthcare Medical Equipment Procedure CodeEquipment CodeEquipment Original TextEquipment IdentifierDates Cystoscopy, with ureteral calculus manipulation and stent placementPolymeric ureteral stent()[id number] FDAStart: 09-30-2022 Cystoscopy, with ureteral calculus manipulation and stent placementPolymeric ureteral stent()[id number])[id number] FDAStart: 11-29-2022 Arthroplasty, knee, total, minimally invasiveOrthopaedic cement, non-medicated ()[id number] FDAStart: 93-14-1975Kwnimprrxhpz, knee, total, minimally invasivePolyethylene patella prosthesis ()[id number])[id number])[id number] FDAStart: 25-85-6925Fhxcztyxyiln, knee, total, minimally invasiveUncoated knee tibia prosthesis, metallic ()[id number])[id number])[id number] FDAStart: 50-35-9665Thaaqrdryfdi, knee, total, minimally invasiveCoated knee femur prosthesis ()[id number])[id number](30)[id number] FDAStart: 81-97-1816Oszdzmajgdec, knee, total, minimally invasiveCoated knee femur prosthesis ()[id number])[id number])[id number] FDAStart: 86-56-4465Kxwpsjsdckxf, knee, total, minimally invasiveTibial insert()[id number] FDAStart: 80-93-9286Pwidbiuznkds, knee, total, minimally invasiveTibial insert ()[id number](17)[id number](28)[id number] FDAStart: 71-07-7747Jfqjejyhenhb, knee, total, minimally invasiveUncoated knee tibia prosthesis, metallic ()[id number](17)[id number](10)[id number] FDAStart: 24-15-4453Gyqfvrcmkkxt, knee, total, minimally invasivePolyethylene patella prosthesis [id number])[id number])[id number] FDAStart: 66-82-3506PRQBLGRSYAPatito Jensen MD 09/26/23 Unknown Pelvis and GenitaliaFDAStart: 80-75-5534ZYMGJNINVSPatito Jensen MD 09/26/23 Unknown Pelvis and GenitaliaFDAStart: 09-26-2023 CYSTOSCOPY Patito Sweet MD 09/26/23 Unknown Pelvis and GenitaliaFDAStart: 36-73-3556KXYHUKHKOEPatito Jensen MD 09/26/23 Unknown Pelvis and GenitaliaFDA Start: 38-01-9805UJNLNMXMBC Lue MD, Patito Good 09/26/23 Unknown Pelvis and GenitaliaFDAStart: 68-46-4052AGMJTDURZVPatito Jensen MD 09/26/23 Unknown Pelvis and GenitaliaFDAStart: 39-32-9790OCIWTCMDCZPatito Jensen MD 09/26/23 Unknown Pelvis and GenitaliaFDAStart: 10-41-9434KZIRKUIIGLPatito Jensen MD 09/26/23 Unknown Pelvis and GenitaliaFDAStart: 59-10-7969ELSMWIEVNTPatito Jensen MD 09/26/23 Unknown Pelvis and GenitaliaFDAStart: 22-51-4635SCQEHRRPHGPatito Jensen MD 09/26/23 Unknown Pelvis and GenitaliaFDAStart: 09-26-2023 Goals DatePatient GoalDesired Activity/State Functional Status RigvXifukematlLsdyksOuyrgngk43-79-7685Ymbahzbcpb StatusN/AExecutive [facility] of [facility]01-19-2024Functional StatusN/AExec[facility] of [place] 074472-11-2023Functional StatusNo [facility]11-03-2023Functional StatusN/AExec[facility]09-28-2023Functional StatusN/AExec[facility] of [facility]08-16-2023Functional StatusN/A [facility]03-30-2023Functional StatusN/[facility]03-08-2023Functional StatusN/A[facility]-20-2023Functional StatusN/A [facility]12-07-2022Functional StatusN/A[facility]10-26-2022 Functional StatusN/AExec[facility] 47-75-7986Aahnallvce StatusN/AExec[facility] of [facility]09-08-2022Functional StatusN/[facility]09-07-2022 Functional StatusN/AExec[facility] 96-12-0583Tckkhosvbz StatusN/[facility] Clinical Notes 02-02-2022 to 07-23-2025 Note Date & IdwsAoquQfzqqihq83-09-6102 NoteGeneral Surgery Office/Clinic Note Chief Complaint consultation for colonoscopy HPI Staff 59 year old male presents on consultation from Dr. Terrell for screening colonoscopy. Denies abdominal or rectal pain. No rectal bleeding or change in bowel habits. Denies nausea, vomiting or weight loss. Last colonoscopy completed 06/2015- normal. No known family history of colon cancer. History of Present Illness 59 yo male with h/o htn, bph, lumbar radiculopathy, nephrolithiasis, anxiety/depression, referred for colorectal screening; denies change in bms or blood in stools, no abd complaints; no abd operations; last colonoscopy 2014 wnl; no asa or NSAID use; no tobacco use; no fmhx of GI malignancy or IBD. Review of Systems PHQ Score Initial Depression Screen Score: 0 SCORE ROS - Provider Constitutional: no fever, no sweats, no weight loss. Eyes: yes glasses, no blurred vision, no visual loss. ENMT: no dentures, no hoarseness, no swallowing difficulties, no hearing loss, no ear infection(s),no nose bleeds. Cardiovascular: normal blood pressure, no chest pain, regular heartbeat, no heart murmur. Respiratory: no shortness of breath, no cough, no asthma, no wheezing. Gastrointestinal: no nausea, no vomiting, no diarrhea, no constipation, no blood in stool, no change in bowel habits, no abdominal pain, no hepatitis. Genitourinary: no kidney stones, no urine infection, no dysuria. Musculoskeletal: no pain, no weakness. Skin: no changing moles, no rash, no skin lumps. Neurologic: no seizures, no epilepsy, no headache. Psychiatric: no emotional or psychiatric problem. Heme/Lymph: no bleeding problems, no anemia, no blood clots, no transfusions. Allergy/Immunologic: no swollen lymph nodes/glands, no IV drug abuse. Other: Additional ROS info: Except as noted in the above Review of Systems and in the History of Present Illness, all other systems have been reviewed and are negative or noncontributory. Physical Exam Vitals & Measurements HR: 76(Peripheral) RR: 16 BP: 150/88 HT: 188 cm HT: 74 in WT: 144.4 kg WT: 318.347 lb BMI: 40.86 HEENT: normal conjunctiva, sclera clear, no scleral icterus, EOM intact, PERRLA, oral mucosa moist without lesions. Neck: trachea midline, no mass, symmetric, no thyromegaly or nodules, no adenopathy Respiratory: lungs CTA, respirations non labored. Cardiovascular: regular rate and rhythm, no murmur, no pedal edema or varicosities. Gastrointestinal: obese, soft, non distended, no tenderness, no masses, no palpable hernias, diastasis recti no, no hepatosplenomegaly; normal bs Musculoskeletal: normal gait, digits and nails without infection, nodes, cyanosis, clubbing. Skin: no rashes, no lesions, no ulcers, no subcutaneous nodules, induration. Psychiatric/Neuro: oriented to time, place, person, judgement normal, affect appropriate for age, insight intact, no focal deficits. Tests: , review of old records completed , Discussed surgical options, risks, and possible complications with patient. Assessment/Plan 1. Screening for malignant neoplasm of colon (Z12.11: Encounter for screening for malignant neoplasm of colon) plan colonoscopy under anesthesia, informed consent obtained. Follow-up No qualifying data available Problem List/Past Medical History Ongoing Anxiety BMI 40.0-44.9, adult BPH with urinary obstruction Cervical radiculopathy Depression ED (erectile dysfunction) HTN (hypertension) Insomnia Kidney stones Lumbar radiculopathy Morbid obesity with BMI of 40.0-44.9, adult Poor short term memory Renal cyst Screening for malignant neoplasm of colon Thoracic spondylosis Tobacco use Tremor Venous insufficiency Historical Hematoma Procedure/Surgical History Cystoscopy (09/26/2023), Cystoscopic laser lithotripsy of ureteric calculus (11/29/2022), ESWL of kidney (08/23/2022), Cystoscopy (07/12/2022), Epidural injection of cervical spine using fluoroscopicguidance (08/17/2018), Epidural injection of cervical spine using fluoroscopic guidance (05/26/2017), Epidural injection of cervical spine using fluoroscopic guidance (09/16/2016), Colonoscopy (07/10/2015), Biopsy of lung, Biopsy of thyroid, Carpal tunnel release, Lumbar spinal fusion, Myringotomy,Tonsillectomy, Total knee replacement, Total knee replacement, Ulnar nerve entrapment. Medications Cialis 20 mg Tab, 20 mg= 1 tab(s), Oral, As Directed, 3 refills citalopram 40 mg Tab, 40 mg= 1 tab(s), Oral, Daily cyclobenzaprine 10 mg Tab, 20 mg= 2 tab(s), Oral, Bedtime, PRN gabapentin 600 mg Tab, 1200 mg= 2 tab(s), Oral, BID irbesartan 300 mg Tab, 300 mg= 1 tab(s), Oral, Daily potassium CITRATE 10 mEq ER Tab, 10 mEq= 1 tab(s), Oral, BID, 3 refills temazepam 15 mg Cap, 15 mg= 1 cap(s), Oral, Once a day (at bedtime) traMADOL 50 mg Tab, 50 mg= 1 tab(s), Oral, q8hr, PRN Allergies Augmentin (Hives) Bee Stings morphine (Unknown) Social History Alcohol - Denies Alcohol Use, 05/26/2022 Never., 11/05/19 (more content not included)...[facility] Comment on above:Result Comment: Electronically Signed By: MARLA NAVARRO, Lima Aaron\Date and Time Signed: 07/23/25 14:39 [id number] Hospital Discharge instructions Patient Education 05/09/2025 11:15:12 Kidney Stones, Pjle-yr-Ntku Kidney Stones Kidney stones are rock-like masses [...] pee. The stone usually leaves your body through your pee. A doctor may need to take out the stone. What are the causes? Kidney stones may be caused by: Too much calcium in the body. This may be caused by too much parathyroid hormone in the blood. Uric acid crystals in the bladder. The body makes uric acid when you eat certain foods. Narrowing of one or both of the ureters. A kidney blockage that you were born with. Past surgery on the kidney or the ureters. What increases the risk? You are more likely to develop this condition if: You have had a kidney stone in the past. Other people in your family have had kidney stones. You do not drink enough water. You eat a diet that is high in protein, salt (sodium), or sugar. You are very overweight (obese). What are the signs or symptoms? Symptoms of a kidney stone may include: Pain in the side of the belly, right below the ribs. Pain usually spreads to the groin. Needing to pee often or right away. Pain when peeing. Blood in your pee. Feeling like you may vomit (nauseous). Vomiting. Fever and chills. How is this treated? Treatment depends on the size, location, and makeup of the kidney stones. The stones will often pass out of the body when you pee. You may need to: Drink more fluid to help pass the stone. ?In some cases, you may be given fluids through an IV tube at the hospital. Take medicine for pain. Change your diet to help keep kidney stones from coming back. Sometimes, you may need: A procedure to break up kidney stones using a beam of light (laser) or shock waves. Surgery to remove the kidney stones. Follow these instructions at home: Medicines Take jxqt-gjc-clrcuxj and prescription medicines only as told by your doctor. Ask your doctor if the medicine prescribed to you requires you to avoid driving or using machinery. Eating and drinking Drink enough fluid to keep your pee pale yellow. ?You may be told to drink at least 8 10 glasses of water each day. This will help you pass the stone. If told by your doctor, change your diet. You may be told to: ?Limit how much salt you eat. ?Eat more fruits and vegetables. ?Limit how much meat, poultry, fish, and eggs you eat. Follow instructions from your doctor about what you may eat and drink. General instructions Collect pee samples as told by your doctor. You may need to collect a pee sample: ?24 hours after a stone comes out. ?8 12 weeks after a stone comes out, and every 6 12 months after that. Strain your pee every time you pee. Use the strainer that your doctor recommends. Do not throw out the stone. Keep it so that it can be tested by your doctor. Keep all follow-up visits. You may need X-rays and ultrasounds to make sure the stone has come out. How is this prevented? To prevent another kidney stone: Drink enough fluid to keep your pee pale yellow. This is the best way to prevent kidney stones. Eat healthy foods. Avoid certain foods as told by your doctor. You may be told to eat less protein. Stay at a healthy weight. Where to find more information National Kidney Foundation (NKF): kidney.org Urology Care Foundation (UCF): urologyhealth.org Contact a doctor if: You have pain that gets worse or does not get better with medicine. Get help right away if: You have a fever or chills. You get very bad pain. You get new pain in your belly. You faint. You cannot pee. This information is not intended to replace advice given to you by your health care provider. Make sure you discuss any questions you have with your health care provider. Document Revised: 05/26/2023 Document Reviewed: 05/26/2023 ralali Patient Education 2023 Borqs. Follow Up Care 11/08/2024 12:00:41 With:Kee NAVARRO, RENATA Ghotra, URO Address: When: Unknown [facility] Jeremias 07-25-2025 NotePatient Education Urology Kidney Stones Kidney stones are rock-like masses that form inside of the kidneys. Kidneys are organs that make pee (urine). A kidney stone may move into other parts of the urinary tract, including: ??? The tubes that connect the kidneys to the bladder (ureters). ??? The bladder. ??? The tube that carries urine out of the body (urethra). Kidney stones can cause very bad pain and can block the flow of pee. The stone usually leaves your body through your pee. A doctor may need to take out the stone. What are the causes? Kidney stones may be caused by: ??? Too much calcium in the body. This may be caused by too much parathyroid hormone in the blood. ??? Uric acid crystals in the bladder. The body makes uric acid when you eat certain foods. ??? Narrowing of one or both of the ureters. ??? A kidney blockage that you were born with. ??? Past surgery on the kidney or the ureters. What increases the risk? You are more likely to develop this condition if: ??? You have had a kidney stone in the past. ??? Other people in your family have had kidney stones. ??? You do not drink enough water. ??? You eat a diet that is high in protein, salt (sodium), or sugar. ??? You are very overweight (obese). What are the signs or symptoms? Symptoms of a kidney stone may include: ??? Pain in the side of the belly, right below the ribs. Pain usually spreads to the groin. ??? Needing to pee often or right away. ??? Pain when peeing. ??? Blood in your pee. ??? Feeling like you may vomit (nauseous). ??? Vomiting. ??? Fever and chills. How is this treated? Treatment depends on the size, location, and makeup of the kidney stones. The stones will often pass out of the body when you pee. You may need to: ??? Drink more fluid to help pass the stone. ? In some cases, you may be given fluids through an IV tube at the hospital. ??? Take medicine for pain. ??? Change your diet to help keep kidney stones from coming back. Sometimes, you may need: ??? A procedure to break up kidney stones using a beam of light (laser) or shock waves. ??? Surgery to remove the kidney stones. Follow these instructions at home: Medicines ??? Take fjzf-bpc-gmrmjzm and prescription medicines only as told by your doctor. ??? Ask your doctor if the medicine prescribed to you requires you to avoid driving or using machinery. Eating and drinking ??? Drink enough fluid to keep your pee pale yellow. ? You may be told to drink at least 8?10 glasses of water each day. This will help you pass the stone. ??? If told by your doctor, change your diet. You may be told to: ? Limit how much salt you eat. ? Eat more fruits and vegetables. ? Limit how much meat, poultry, fish, and eggs you eat. ??? Follow instructions from your doctor about what you may eat and drink. General instructions ??? Collect pee samples as told by your doctor. You may need to collect a pee sample: ? 24 hours after a stone comes out. ? 8?12 weeks after a stone comes out, and every 6?12 months after that. ??? Strain your pee every time you pee. Use the strainer that your doctor recommends. ??? Do not throw out the stone. Keep it so that it can be tested by your doctor. ??? Keep all follow-up visits. You may need X-rays and ultrasounds to make sure the stone has come out. How is this prevented? To prevent another kidney stone: ??? Drink enough fluid to keep your pee pale yellow. This is the best way to prevent kidney stones. ??? Eat healthy foods. ??? Avoid certain foods as told by your doctor. You may be told to eat less protein. ??? Stay at a healthy weight. Where to find more information ??? National Kidney Foundation (NKF): kidney.org ??? Urology Care Foundation (UCF): urologyhealth.org Contact a doctor if: ??? You have pain that gets worse or does not get better with medicine. Get help right away if: ??? You have a fever or chills. ??? You get very bad pain. ??? You get new pain in your belly. ??? You faint. ??? You cannot pee. This information is not intended to replace advice given to you by your health care provider. Make sure you discuss any questions you have with your health care provider. Document Revised: 05/26/2023 Document Reviewed: 05/26/2023 Elsevier Patient Education ? 2023 Borqs.[facility] 05-07-2025 [facility] [place] [address] [place] [address] Ultrasound Report Signed Patient: Lima Loyd MR#: [id number] : 1965 Acct:[id number] Age/Sex: 59 / M ADM Date: 5 Loc: Room: Type: [facility] Attending Dr: Patito Sweet MD Ordering Provider: Patito Sweet MD Date of Service: 05/07/25 US/US renal BI: N20.0, N40.1 Copies to: Patito Sweet MD~ BILATERAL RENAL AND BLADDER ULTRASOUND CLINICAL HISTORY: History of kidney stones. COMPARISON: None FINDINGS: Estimation of renal size is approximately 11.73 cm on the right and 11.22 cm onthe left. No mass. No hydronephrosis. Shadowing calculi are seen bilaterally largest measuring 6 mm involving the right kidney. Small cyst right kidney. The urinary bladder is partially distended with a volume of 193.57 ml. No shadowing stone or focal lesion. No significant postvoid residual. US/US renal BI IMPRESSION: BILATERAL NEPHROLITHIASIS. NO HYDRONEPHROSIS. Impression dictated by: Abad Perez Jr., D.OAlejo 05/07/2025 4:39 PM Dictation Location: [place] [address] Tech: Teressa Olmedo Transcribed By: ALDEN 05/07/25 1639 Dictated By: Abad Perez Jr, DO 05/07/25 1638 Signed By: 05/07/25 1639 [facility]03-20-2025 History of Present illness Narrative * JULIANNE Paris - 01/02/2025 9:10 AM EDT Images from the original note were not included. Skin Check Location: Patient requests a skin examination from the waist up Dermatologic history: no history of skin cancer, no history of atypical moles, no family history ofmelanoma , is active outdoors, uses sunscreen regularly Last visit: first skin exam New patient Lesions: Location: arms and scalp Duration: months Quality: itchy, sore Modifying factors: none Associated symptoms: rough, enlarged Treatments: none. Patient reported he burned his left forearm on a car part years ago. All pertinent medical history, medications, and allergies were reviewed. General Exam: alert, oriented to person, place, and time, normal affect, well appearing Unaccompanied A complete skin exam was offered, pt declined. Areas not examined despite medical recommendation: From the waist down Scalp, Examined Head, Face Examined Neck Examined Chest Examined Back Examined Abdomen Examined Right arm Examined Left arm Examined Hands Examined Digits,nails: Examined Lymphatics: 1. Melanocytic nevus of trunk Torso - Posterior (Back) Scattered benign appearing, regular brown to light brown melanocytic papules and macules with similar morphology Counseled regarding these benign growths. Rarely, a nevus can develop into malignant melanoma, so any changing nevi should be promptly re-evaluated. 2. Capillary angioma Scalp Scattered higgins-red papule(s). The patient was informed that angiomas are benign growths on the the skin. No treatment is necessary. 3. Lentigo simplex scalp Scattered pickering macules in sun-exposed areas. The patient was informed that lentigines are benign pigmented lesions that occur on sun-exposed andsun-damaged skin. No treatment is necessary. Recommended regular use of broad spectrum sunscreen SPF 30 or higher 4. Other rosacea Head - Anterior (Face) Mid face erythema with telangiectasias + scattered inflammatory papules/pustules. Flaring today The patient was informed that rosacea a chronic condition that can be controlled but not cured. Theappearance of redness and pimples can often be improved with a low dose antibiotic or topical medications. The patient was informed that telangiectasia is common and can be improved with laser treatment. Start metronidazole cream apply topically to face every day until clear, safe continue to use dailyonce clear. If no improvement in 2 months or worsening despite treatment contact office. metroNIDAZOLE (Metrocream) 0.75 % cream - Head - Anterior (Face) Apply thin layer to face, once daily, 30 day supply 5. Seborrheic keratosis Left Arm Stuck on verrucous, pickering-brown papules and plaques. Patient was counseled regarding these benign growths. Removal is normally not necessary, but they may be removed if they are symptomatic or for cosmetic reasons. 6. Inflamed seborrheic keratosis (3) Left Forearm - Anterior, Left Upper Arm - Anterior, Right Upper Arm - Anterior [place] and brown stuck on verrucous scaly papule with surrounding erythema The patient was informed that symptomatic seborrheic keratoses are benign growths that become inflamed, itchy, tender, traumatized, caught on clothing, or bleed. Symptomatic lesions can be treated with cryotherapy or curretage. Thicker lesions treated with cryotherapy may require more than one treatment. The patient was instructed to notify the office if abnormal redness or tenderness develops atthe treatment site. Cryotherapy today, see procedure note. Diagnosis: Inflamed seborrheic keratosis Indication: Inflamed Consent: Verbal consent was obtained and risks were discussed, including, but not limited to risks of scarring, darker or dye house wheel operator pigmentary changes, recurrence, incomplete removal and infection. Method: Liquid nitrogen was used to treat the lesion(s) with two 5-10 second freeze-thaw cycles Number of lesions treated: 3 Post-procedure instructions: Instructions were given orally and in writing. The office will be contacted if the lesion fails to resolve despite treatment, or if a side effect develops such as abnormal crusting, scabbing, redness or tenderness Cryotherapy, skin lesion - Left Forearm - Anterior, Left Upper Arm - Anterior, Right Upper Arm - Anterior Next Visit: Recommended yearly skin exams. 1 year skin exam and follow up for rosacea documented in this encounterCarondelet [id number] NotePatient: Lima Loyd Procedure Summary Date: 11/12/24 Room / Location: [facility] Main Operating Room Anesthesia Start: 1212 Anesthesia Stop: 1322 Procedure: BRONCHOSCOPY Diagnosis: Mediastinal mass Scheduled Providers: Shantel Becker MD; Clem Rosales MD Responsible Provider: Clem Rosales MD Anesthesia Type: general ASA Status: 3 Anesthesia Type: general Vitals Value Taken Time BP 187/91 11/12/24 1418 Temp 36.7 ???C (98.1 ???F) 11/12/24 1320 Pulse 96 11/12/24 1428 Resp 15 11/12/24 1428 SpO2 96 % 11/12/24 1428 Vitals shown include unfiled device data. Anesthesia Post Evaluation Patient location during evaluation: PACU Patient participation: complete - patient participated Level of consciousness: awake and alert Pain score: 2 Pain management: adequate Airway patency: patent Cardiovascular status: acceptable Respiratory status: acceptable Hydration status: acceptable Patient is hemodynamically stable and is able to be discharged from PACU per anesthesia protocol. No notable events documented.[facility]01-28-2025 Note Airway Date/Time: 11/12/2024 12:22 PM Urgency: elective Airway not difficult General Information and Staff Patient location during procedure: OR Anesthesiologist: Clem Rosales MD Resident/BRASS WIND INSTRUMENT MAKER/CAA: Benja Canela MD Performed: resident/BRASS WIND INSTRUMENT MAKER/CAA Indications and Patient Condition Indications for airway management: anesthesia Spontaneous Ventilation: absent Sedation level: deep Preoxygenated: yes Mask difficulty assessment: 1 - vent by mask Planned trial extubation Final Airway Details Final airway type: supraglottic airway Successful airway: classic Size 4 Number of attempts at approach: 1 Ventilation between attempts: none Number of other [facility]: [facility] NotePatient: Lima Loyd Procedure Information Anesthesia Start Date/Time: 11/12/24 1212 Scheduled providers: Shantel Becker MD; Clem Rosales MD Procedure: BRONCHOSCOPY Location: [facility] Main Operating Room Relevant Problems Anesthesia (within normal limits) Cardio (within normal limits) Endo (within normal limits) GI (within normal limits) /Renal (within normal limits) Neuro/Psych (within normal limits) Pulmonary (within normal limits) Clinical information reviewed: Tobacco Allergies Meds Med Hx Surg Hx Fam Hx Soc Hx Physical Exam Airway Mallampati: IV TM distance: >3 FB Neck ROM: full Comments: Large quigley Cardiovascular Rhythm: regular Rate: normal Dental Pulmonary (+) decreased breath sounds Comments: Non labored respirations Abdominal (+) obese Other findings: Hypertension, denies CAD Denies JOSEF Has a anterior mediastinal mass, not significant, patient can lay flat without issues Anesthesia Plan ASA 3 general (General with LMA and standard ASA monitors) The patient is not a current smoker. Education provided regarding risk of obstructive sleep apnea. intravenous induction Postoperative administration of opioids is intended. Trial extubation is planned. Anesthetic plan and risks discussed with patient. Use of blood products discussed with patient who consented to blood products. Plan discussed with attending. Additional Equipment [facility]sMer[facility] Note H&P reviewed. The patient was examined and there are no changes to the H&P. Re-explained the procedure to the patient along with the associated risk of pneumothorax, bleeding, hypoxia, and respiratory failure. Patient is agreeable and will proceed with the scheduled bronchoscopy and EBUS Shantel Becker MD Interventional Pulmonary Medicine Pulmonary and Critical Care Medicine [facility]-24-[facility]25 NotePatient Education Nephrology Dietary Guidelines to Help Prevent [...] for following this plan? Reading food labels ??? Choose foods with no salt added or low-salt labels. Limit your salt (sodium) intake to lessthan 1,500 mg a day. ??? Choose foods with calcium for each meal and snack. Try to eat about 300 mg of calcium at each meal. Foods that contain 200?500 mg of calcium a serving include: ? 8 oz (237 mL) of milk, qgbhzar-ixalsdonntki-tierh milk, and calcium- fortifiedfruit juice. Calcium-fortified means that calcium has been [...] much calcium is recommended for you. Shopping ??? Buy plenty of fresh fruits and vegetables. Most people do not need to avoid fruits and vegetables, even if these foods contain nutrients that may contribute to kidney stones. ??? When shopping for convenience foods, choose: ? Whole pieces of fruit. ? Pre-made salads with dressing on the side. ? Low-fat fruit and yogurt smoothies. ??? Avoid buying frozen meals or prepared deli foods. These can be high in sodium. ??? Look for foods with live cultures, such as yogurt and kefir. ??? Choose high-fiber grains, such as whole-wheat breads, oat bran, and wheat cereals. Cooking ??? Do not add salt to food when cooking. Place a salt shaker on the table and allow each person toadd their own salt to taste. ??? Use vegetable protein, such as beans, textured vegetable protein (TVP), or tofu, instead of meat in pasta, casseroles, and soups. Meal planning ??? Eat less salt, if told by your dietitian. To do this: ? Avoid eating processed or pre-made food. ? Avoid eating fast food. ??? Eat less animal protein, including cheese, meat, [...] size of the palm of your hand. ??? Eat at least five servings of fresh fruits and vegetables each day. To do this: ? Keep fruits and vegetables on hand for snacks. ? Eat one piece of fruit or a handful of berries with breakfast. ? Have a salad and fruit at lunch. ? Have two kinds of vegetables at dinner. ??? You may be told to limit foods that are high in a substance called oxalate. These include: ? Spinach (cooked), rhubarb, beets, sweet potatoes, and [place] chard. ? Peanuts. ? Potato chips, pitcairn islander fries, and baked potatoes with skin on. ? Nuts and nut products. ? Chocolate. ??? If you regularly take a diuretic medicine, make sure to eat at least 1 or 2 servings of fruits or vegetables that are high in potassium each day. These include: ? Avocado. ? Banana. ? [place], prune, carrot, or tomato juice. ? Baked potato. ? Cabbage. ? Beans and split peas. Lifestyle ??? Drink enough fluid to keep your urine pale yellow. This is the most important thing you can do.Spread your fluid intake throughout the day. ??? If you drink alcohol: ? Limit how [...] oz glass of hard liquor (44 mL). ??? Lose weight if told by your health care provider. Work with your dietitian to find an eating plan and weight loss strategies that work best for you. General information ??? Talk to your health care provider and [...] as magnesium, fish oil, or vitamin B6. ??? Take vjad-bre-nhxyviy and prescription medicines only as told by your health (more content not included)...[facility]01-23-2025 Note Pulmonary Telehealth Visit Note Patient: Lima Loyd Age: 59 y.o. : 1965 Account No.: [id number] Referring physician: Dr. Terrell Chief complaint: Anterior mediastinal mass Date of phone call: 11/07/2024 HPI Lima Loyd is a 59 y.o. male was seen in my clinic last week but unfortunately images were not available. Patient was referred for anterior mediastinal mass. I reviewed the images and it seems that the lesion is accessible via EBUS. Called the patient informed him about the CAT scan findings and the proposed procedure. He is agreeable. Will schedule him as soon as possible. Patient continues to deny any respiratory symptoms. No cough, sputum. No chest pain, palpitations. No fever, chills, weight loss, night sweats. History reviewed. No pertinent past medical history. Past Surgical History: Procedure Laterality Date BACK SURGERY CARPAL TUNNEL RELEASE Bilateral ELBOW SURGERY Left KNEE SURGERY Bilateral knee replacement Allergies: Bee venom protein (honey bee), Morphine, and Amoxicillin-pot clavulanate Prior to Admission medications Medication Sig Start Date End Date Taking? Authorizing Provider baclofen (Lioresal) 20 mg tablet Take 2 tablets by mouth in the evening. 10/01/19 Yes Historical Provider, citalopram (CeleXA) 40 mg tablet Take 1 tablet by mouth in the morning. 10/01/19 Yes Historical Provider, cyclobenzaprine (Flexeril) 10 mg tablet 07/18/24 Yes Historical Provider, gabapentin (Neurontin) 600 mg tablet 1 tablet Orally three times daily for 30 days 05/26/22 Yes Historical Provider, irbesartan (Avapro) 300 mg tablet 05/26/22 Yes Historical Provider, potassium citrate CR (Urocit-K-10) 10 mEq ER tablet Take 10 mEq by mouth. 08/18/23 Yes Historical Provider, tadalafil (Cialis) 20 mg tablet Take 20 mg by mouth. 05/09/24 Yes Historical Provider, traMADol (Ultram) 50 mg tablet Refills(s) 0 08/18/23 Yes Historical Provider, Social history: reports that he has never smoked. He has never used smokeless tobacco. He reports that he does not drink alcohol and does not use drugs. Family History Problem Relation Name Age of Onset Diabetes Mother Leukemia Father Diabetes Sister Diabetes Brother Review of Systems: As mentioned in the History of Present Illness. Physical examination: No physical examination was performed. Encounter was held over the phone. Labs Results: No results found for: HGB , HCT , WBC , BUN , CREATININE , NA , K , BICARB , CO2 , PH , PHART , PHVEN , LSZ3RHE , PGN2MZZ , XKX0NZU , PO2POC , PO2ART , PO2VEN , AMP8CJZ , KXJ1NJM Radiology: CT scan personally reviewed and showed a heterogenous anterior mediastinal mass at the level of the aortic arch anterior aspect of the trachea Assessment and Plan: Anterior mediastinal mass Plan: Discussed with the patient. Will proceed with the EBUS guided TBNA. He is agreeable. Instructions given. Will schedule him as soon as possible Total time spent in Medical Discussion: 5 minutes. Total 10 minutes. A link to connect to a video visit was sent to the patient and he was not able to connect. The visit was initiated by the patient and conducted sez-ilha-nb-face with use of audio-only real time telephone communication between patient and provider for a virtual visit. Verbal consent to provide and bill for this service was obtained on 11/07/2024. Shantel Becker MD Interventional Pulmonary Medicine Pulmonary and Critical Care Medicine [facility]01-22-2025 [facility] [place] [address] [place] [address] Ultrasound Report Signed Patient: Lima Loyd MR#: [id number] : 1965 Acct:[id number] Age/Sex: 59 / M ADM Date: 5 Loc: Room: Type: [facility] Attending Dr: Patito Sweet MD Ordering Provider: Patito Sweet MD Date of Service: 11/06/24 US/US renal BI: N20.0 Copies to: Patito Sweet MD~ BILATERAL RENAL AND BLADDER ULTRASOUND CLINICAL HISTORY: Follow-up kidney stones COMPARISON: Renal ultrasound 05/07/2024 FINDINGS: Estimation of renal size is approximately 11.58 cm on the right and 11.54 cm onthe left. No contourdeforming mass or hydronephrosis. Echogenic foci seen within both kidneys likely relating to underlying calculi. The urinary bladder is partially distended with a volume of 135.51 ml. No shadowing stone or focal lesion. No significant postvoid residual. US/US renal BI IMPRESSION: LIKELY NONOBSTRUCTING BILATERAL NEPHROLITHIASIS. NO HYDRONEPHROSIS TO SUGGEST OBSTRUCTION. Impression dictated by: Abad Perez Jr., D.O.11/06/2024 1:40 PM Dictation Location: [place] [address] Tech: Cindi Sanchez Transcribed By: ALDEN 11/06/24 1340 Dictated By: Abad Perez Jr, DO 11/06/24 1339 Signed By: 11/06/24 1340 [facility]01-16-2025 Note Attestation signed by Shantel Becker MD at 11/04/2024 11:16 AM I have seen and examined the patient. I reviewed the resident/fellow note and I agree with the findings and plan. Shantel Becker MD Interventional Pulmonary Medicine Pulmonary and Critical Care Medicine [facility] Visit Note Patient: Lima Loyd Age: 59 y.o. : 1965 Account No.: [id number] Referring physician: Dr. Terrell Chief complaint: Anterior mediastinal mass HPI Lima Loyd is a 59 y.o. male who was referred to our office for evaluation of a 4 cm mediastinal mass and LAD on CT don in 09/2024. Patient does not have any significant past medical history. He reports that the mass was first noted during COVID pandemic when he was admitted and intubated at the hospital for hypoxic respiratory failure due to COVID-pneumonia. At that time the mass was identified however patient was lost to follow-up and no workup was done he had a follow-up scan recently which showed that the mass has grown and he also has LAD, he was referred here for further evaluation. History reviewed. No pertinent past medical history. Past Surgical History: Procedure Laterality Date BACK SURGERY CARPAL TUNNEL RELEASE Bilateral ELBOW SURGERY Left KNEE SURGERY Bilateral knee replacement Allergies: Bee venom protein (honey bee), Morphine, and Amoxicillin-pot clavulanate Prior to Admission medications Medication Sig Start Date End Date Taking? Authorizing Provider baclofen (Lioresal) 20 mg tablet Take 2 tablets by mouth in the evening. 10/01/19 Yes Historical Provider, citalopram (CeleXA) 40 mg tablet Take 1 tablet by mouth in the morning. 10/01/19 Yes Historical Provider, cyclobenzaprine (Flexeril) 10 mg tablet 07/18/24 Yes Historical Provider, gabapentin (Neurontin) 600 mg tablet 1 tablet Orally three times daily for 30 days 05/26/22 Yes Historical Provider, irbesartan (Avapro) 300 mg tablet 05/26/22 Yes Historical Provider, potassium citrate CR (Urocit-K-10) 10 mEq ER tablet Take 10 mEq by mouth. 08/18/23 Yes Historical Provider, tadalafil (Cialis) 20 mg tablet Take 20 mg by mouth. 05/09/24 Yes Historical Provider, traMADol (Ultram) 50 mg tablet Refills(s) 0 08/18/23 Yes Historical Provider, Social history: reports that he has never smoked. He has never used smokeless tobacco. He reports that he does not drink alcohol and does not use drugs. Family History Problem Relation Name Age of Onset Diabetes Mother Leukemia Father Diabetes Sister Diabetes Brother Review of Systems: As per HPI Physical examination: Vitals: BP (!) 155/93 (BP Location: Right arm, Patient Position: Sitting, BP Cuff Size: Large adult) Pulse 77 Temp 37.1 ???C (98.7 ???F) (Oral) Ht 1.88 m (6' 2 ) Wt (!) 143 kg (315 lb) SpO2 96% BMI 40.44 kg/m??? Constitutional: Vitals reviewed, HEENT: Normocephalic, Atraumatic, Moist oral mucosa Eyes: Clear conjunctiva, Pupils reactive to light Neck: Supple, No thyromegaly CV: Normal Rate and Rhythm, No murmur, No pedal edema Chest/Pulm: Normal respiratory effort, Lungs clear to auscultation Abdomen: Soft, No tenderness, No organomegaly Musculoskeletal: No clubbing or cyanosis, Normal ROM in head and neck, Lymph Nodes: no cervical adenopathy noted Skin: Warm, No rash Neuro: Alert, can move all four extremities Labs Results: No results found for: HGB , HCT , WBC , BUN , CREATININE , NA , K , BICARB , CO2 , PH , PHART , PHVEN , OOS5RVY , QJO1MTQ , BZU9OXE , PO2POC , PO2ART , PO2VEN , INX3IVF , NEJ0MVU Radiology: No Chest X-ray results found for the past [address] results found for the past 12 months Assessment and Plan: Assessment: 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 Date and time of the procedure will be determined and communicated with the patient Avis Monsalve MD Pulmonary and Critical Care Fellow [facility] 10/31[facility]24 2[facility] History of Present illness Narrative* Venkat Paredes, DPM - 10/25/2024 8:30 AM EST Patient: Lima Loyd : 1965 PCP: Jeff Terrell MD SUBJECTIVE This is a 59 y.o. male that presents today s/p permanent nail avulsion with nail avulsion to the left and right 1-5 digits. Pt states that they have been following all post op instructions . Pt denies n/f/v/c and has negative pain at post op site. Pt states negative drainage from the postop site. Pt presents today for postoperative follow up. Patient has history of left and right plantar fasciitis in the past. Patient states he has some pain to the area and wears inserts Patient also presents today for follow up of right peroneal tendinitis and has been using a walkingboot and prior steroid injection 1 with positive improvement. Patient rates pain a 1/10. Allergies: Allergies Allergen Reactions Amoxicillin Hives Clavulanic [...] 300 MG tablet, , Disp: , Rfl: methylPREDNISolone (Medrol Dospak) 4 MG tablets, Follow schedule on MEDROL PACK package instructions to be used as directed, Disp: 21 tablet, Rfl: 0 tadalafil (Cialis) 20 MG tablet, Take 20 [...] to the left and right 1-10 toes. Negative pain on palpation to right and left plantar fascial bands Minimal pain on palpation to the right peroneal tendon complex particularly near attachment of the 5th metatarsal base region 20 degrees inversion and 10 degrees eversion STJ b/l. Ankle ROM less than 10 degrees b/l. ASSESSMENT s/p permanent nail avulsion to the left 1-10 toenails 1. Paronychia, toe, left 2. Paronychia, toe, right 3. Plantar fasciitis 4. Peroneal tendinitis, right PLAN Recommended to apply ice to affected areas for 20 minutes, twice daily. Ice should not be applied directly to skin. Patient to continue with oral anti - inflammatories as needed for pain and recommended OTC medications such as tylenol or Ibuprofen Discontinue walking boot . Venkat Paredes DPM documented in this encounterCarondelet [id number] History of Present illness Narrative* Venkat Paredes, DPM - 10/11/2024 11:10 AM EST Patient: Lima Loyd : 1965 PCP: Jeff Terrell MD SUBJECTIVE This is a 59 y.o. male that presents today s/p permanent nail avulsion with nail avulsion to the left and right 1-5 digits. Pt states that they have been following all post op instructions and have been taking antibiotic asprescribed. Pt denies n/f/v/c and has some pain at post op site. Pt states negative drainage from the postop site. Pt presents today for postoperative follow up. Patient has history of left and right plantar fasciitis in the past. Patient states he has some pain to the area and wears inserts Patient also presents today for follow up of right peroneal tendinitis and has been using a walkingboot and using Medrol pack with minimal improvement Patient rates pain a 05/25. Allergies: Allergies Allergen Reactions Amoxicillin Hives Clavulanic Acid Hives Morphine Itching and Hives Other Reaction(s): Itching, mental problems, hives all in morphine family Amoxicillin-Pot Clavulanate Hives, Itching, Rash and Swelling listed as allergy on 05/26/22pt states he has no issues with this medicaiton Past Medical History: Past Medical History: Diagnosis Date Hypertension ([facility]) Medications: Current Outpatient Medications: cyclobenzaprine (Flexeril) 10 MG tablet, , Disp: , Rfl: gabapentin (Neurontin) 600 MG tablet, 1 tablet Orally three times daily for 30 days, Disp: , Rfl: irbesartan (Avapro) 300 MG tablet, , Disp: , Rfl: methylPREDNISolone (Medrol Dospak) 4 MG tablets, Follow schedule on MEDROL PACK package instructions to be used as directed, Disp: 21 tablet, Rfl: 0 tadalafil (Cialis) 20 MG tablet, Take 20 [...] to the left and right 1-10 toes. Diminished pain on palpation to right and left plantar fascial bands Positive pain on palpation to the right peroneal tendon complex particularly near attachment of the5th metatarsal base region 20 degrees inversion and 10 degrees eversion STJ b/l. Ankle ROM less than 10 degrees b/l. Ultrasound DIAGNOSTIC US REPORT - verbal order for ultrasound today The peroneal tendon of the right foot were scanned today using a 12MHz linear probe in the transverse and sagittal planes. Images were obtained. FINDINGS - US exam demonstrates hypo-echoic signal with its origin at the 5th metatarsal base. IMPRESSION - right peroneal tendonitis/bursitis ASSESSMENT s/p permanent nail avulsion to the left 1-10 toenails 1. Paronychia, toe, left 2. Paronychia, toe, right 3. Plantar fasciitis 4. Peroneal tendinitis, right 5. Contracture of right ankle PLAN Recommended to apply ice to affected areas for 20 minutes, twice daily. Ice should not be applied directly to skin. Patient to continue with oral anti - inflammatories as needed for pain and recommended OTC medications such as tylenol or Ibuprofen Continue with walking boot Reviewed ultrasound today with patient A steroid injection of 1 cc of Kenalog 10 and 1 cc of xylocaine 2% plain was injected under ultrasound guidance and to the right peroneal tendon sheath region with care being taken to avoid direct tendon injection. This is the patients 1st injection Venkat Paredes DPM documented in this [facility]12-13-2024 History of Present illness Narrative* Venkat Paredes DPM - 09/27/2024 9:00 AM EST Patient: Lima Loyd : 1965 PCP: Jeff Terrell MD SUBJECTIVE This is a 59 y.o. male that presents today s/p permanent nail avulsion with nail avulsion to the left and right 1-5 digits. Pt states that they have been following all post op instructions and have been taking antibiotic asprescribed. Pt denies n/f/v/c and has some pain [...] History: Past Medical History: Diagnosis Date Hypertension ([facility]) Medications: Current Outpatient Medications: cyclobenzaprine (Flexeril) 10 [...] peroneal tendon complex particularly near attachment of the5th metatarsal base region 20 degrees inversion and [...] and straps and pneumatically inflated for proper customfitting by Venkat Paredes DPM and staff. A verbal order was given for dispensing of device. The patient is ambulatory and may benefit functionally from this device. It may be used for the following conditions as noted per medical diagnosis. Venkat Paredes DPM documented in this encounterCarondelet [id number] History of Present illness Narrative* Venkat Paredes DPM - 09/20/2024 9:10 AM EST Patient: Lima oLyd : 1965 PCP: Jeff Terrell MD SUBJECTIVE This is a 59 y.o. male that presents today 19 d s/p permanent nail avulsion with nail avulsion to the left and right 1-5 digits. Pt states that they have been following all post op instructions and have been taking antibiotic asprescribed. Pt denies n/f/v/c and has some pain [...] History: Past Medical History: Diagnosis Date Hypertension ([facility]) Medications: Current Outpatient Medications: cyclobenzaprine (Flexeril) 10 [...] up Venkat Paredes DPM documented in this [facility]11-27-2024 History of Present illness Narrative* Venkat Paredes DPM - 09/11/2024 2:10 PM EST Patient: Lima Loyd : 1965 PCP: Jeff Terrell MD SUBJECTIVE This is a 59 y.o. male that presents today 14 d s/p permanent nail avulsion with nail avulsion to the left and right 1-5 digits. Pt states that they have been following all post op instructions and have been taking antibiotic asprescribed. Pt denies n/f/v/c and has some pain [...] History: Past Medical History: Diagnosis Date Hypertension ([facility]) Medications: Current Outpatient Medications: cyclobenzaprine (Flexeril) 10 [...] week Venkat Paredes DPM documented in this encounterCarondelet [id number] History of Present illness Narrative* Venkat Paredes DPM - 08/26/2024 9:30 AM EST Patient: Lima Loyd : 1965 PCP: Jeff [...] condition and operative vs nonoperative care. The surgicalplans, risks, alternatives, benefits, post op complications and chcf expectations were discussed including but not limited to: infection,bone infection,wound dehiscence hardware failure and irritation,wound dehiscence,delay union/mal union/non union of bone. RSDS,neuroma,duty limitations,DVT/PE, DC,nerve damage, scar, loss of sensation, swelling. Pt [...] (date)08/26/24 Venkat Paredes DPM documented in this encounterCarondelet [id number] History of Present illness Narrative* Venkat Paredes DPM - 08/05/2024 9:00 AM EDT Patient: Lima Loyd : 1965 PCP: Jeff [...] shoes with minimal improvement rates up to 02/22 and presentstoday for possible treatment options He also has [...] History: Past Medical History: Diagnosis Date Hypertension ([facility]) Medications: Current Outpatient Medications: cyclobenzaprine (Flexeril) 10 [...] thickness digits 1 through 10 Patient received kzlq-ngx-wxmtyor inserts with power steps today and begin wearing daily Patient to continue with oral anti - inflammatories as needed for pain and recommended OTC medications such as tylenol or Ibuprofen Discussed conservative and surgical treatment options for patient today including postoperative time frame and surgical procedure in detail. Patient may continue with conservative treatments including vlqa-fym-laxynsc anti- inflammatories and other treatments suggested today. Patient may want to be s cheduled for surgical intervention in the near future. Patient has total permanent nail avulsions in the near future with removal of nails had surgery Center and will need preop and have Ultram for postop pain Venkat Paredes DPM documented in this encounterCarondelet [id number] Hospital Discharge instructions Patient Education 05/09/2024 10:36:01 Dietary Guidelines [...] include: ?8 oz (237 mL) of milk, epyijft-dtsijgiwxitk-zajky milk, and calcium- fortifiedfruit juice. Calcium-fortified means that calcium has been [...] the table and allow each person to addtheir own salt to taste. Use vegetable protein, such as beans, textured vegetable protein (TVP), or tofu, instead of meat inpasta, casseroles, and soups. Meal planning Eat less [...] portion sizes. For most meat and fish, oneserving is about the size of the palm [...] ?Spinach (cooked), rhubarb, beets, sweet potatoes, and [place] chard. ?Peanuts. ?Potato chips, pitcair[place] islander fries, and baked potatoes with skin on. ?Nuts and nut products. ?Chocolate. If you regularly take a diuretic medicine, make sure to eat at least 1 or 2 servings of fruits or vegetables that are high in potassium each day. These include: ?Avocado. ?Banana. ?[place], prune, carrot, or tomato juice. ?Baked potato. [...] magnesium, fish oil, or vitamin B6. Take gebx-wnf-bppdapc and prescription medicines only as told by [...] Casseroles. Pizza. Lasagna. Frozen meals. Potato chips. [place] Islander fries. The items listed above may not be a complete list of foods and beverages you should limit. Contact a dietitian for more information. What foods should I avoid? Talk to your dietitian about specific foods you should avoid based on the type of kidney stones youhave and your overall health. Fruits Grapefruit. The item listed above may not be a complete list of foods and beverages you should avoid. Contact adietitian for more information. Summary Kidney stones are [...] provider. Document Revised: 01/12/2023 Document Reviewed: 01/12/2023 ralali Patient Education 2022 [employer] Follow Up Care 11/03/2023 10:48:01 With:Kee NAVARRO, RENATA Ghotra, URO Address: When: Unknown [facility] 07-15-2024 Hospital Discharge instructionsAmbulatory Orders* Referral to Neurology Time Frame: 04/29/24, Location: [facility] Work Phone: 1(356) 540-786201-26-2024 Evaluation note* Encounter Date Diagnosis Assessment Notes Treatment Notes Treatment Clinical Notes Oct, Finger mass, right (ICD-10 - R22 .31) Oct,re-op exam (ICD-10 - Z01.818) [employer] Other 01-19-2024 Hospital Discharge instructions Patient Education [...] urethra. Follow these instructions at home: Take dqrc-dey-shawwwj and prescription medicines only as told by [...] provider. Document Revised: 04/20/2022 Document Reviewed: 04/20/2022 ralali Patient Education 2022 [employer] Follow Up Care 09/26/2023 15:07:03 With:Kee NAVARRO, RENATA Ghotra, URO Address: When:Within 6 Month(s) Comments:britany/CHANTEL and [facility] 01-10-2024 Evaluation note* Encounter Date Diagnosis Assessment Notes Treatment Notes Treatment Clinical Notes Oct, Finger mass, right (ICD-10 - R22 .31) This may be a neuroma versus a cyst that is putting pressure on the nerve. Discussed further assessment with MRI versus surgical excision. Patient opts for surgical excision at this time. Surgical procedure, risks, recovery and restrictions discussed in detail. Patient was in understanding and wishes to proceed with local anesthesia. Oct,re-op exam (ICD-10 - Z01.818) [employer] Other 12-12-2023 Evaluation + Plan noteExtracted from:Title: ANES Post-operative Note - GeneralAuthor:Clyde Rivera Jr., DO GDate:09/26/23 Plan Transfer/Discharge: Transfer/Discharge Discharge when meets criteria ( From PACU to Ambulatory Surgery Unit, and To home ). Extracted from:Title:ANES Pre-operative Note - AdultAuthor:Clyde Rivera Jr., DO GDate:09/26/23 Patient: LIMA LOYD Age: 58 years Sex: Male : 1965 Associated Diagnoses: None Author: Clyde Rivera Jr., DO Preoperative Information Anesthesia Preop Info [...] 400 mg = 200 mL, Soln-IV, IV Piggyback,PREOP, Routine, Start date 09/26/23 7:30:00 EST, 200 mL/hr, Infuse over 60 minute(s) morphine 4 mg/mL Inj: 4 mg = 1 mL, Injection, IV Push, q4min PRN Pain 8-10 for 5 dose(s), Stop dateLimited # of times, Routine, Start date 09/26/23 8:31:00 EST, 09/26/23 8:31:00 EST Prescriptions Prescribed Cialis 10 mg Tab: 10 mg = 1 tab(s), Oral, As Directed, PRN for erectile dysfunction, Take one hour prior to sexual intercourse. Do not exceed 20mg within 24 hrs., # 30 tab(s), Refills(s) 0, Pharmacy:[facility] [id number], 188, cm, 05/31/23 8:37:00 EDT, Height/Lengt... potassium CITRATE 10 mEq ER Tab: 10 mEq, 1 tab(s), Oral, BID, 180 tab(s), Refill(s) 3, [facility] [id number], 188, cm, 08/18/23 10:17:00 EDT, Height/Length Dosing, [...] list: All Problems Anxiety / SNOMED CT 20607232 / Confirmed Arthritis / SNOMED CT 1807277 / Confirmed BPH with urinary obstruction / SNOMED CT 6026362696 / Confirmed Cervical radiculopathy / SNOMED CT 798009626 / Confirmed Depression / SNOMED CT 40847095 / Confirmed ED (erectile dysfunction) / SNOMED CT 8593646128 / Confirmed Gross hematuria / SNOMED CT 837569361 / Confirmed History of prostatitis / SNOMED CT 9119524927 / Confirmed HTN (hypertension) / SNOMED CT 2773740378 / Confirmed Insomnia / SNOMED CT 608668323 / Confirmed Kidney stone / SNOMED CT 770565527 / Confirmed Lumbar radiculopathy / SNOMED CT 833154819 / Confirmed Poor short term memory / SNOMED CT 583615130 / Confirmed Prostatitis / SNOMED CT 04893763 / Confirmed Renal cyst / SNOMED CT 5683624413 / Confirmed Shoulder impingement syndrome / SNOMED CT 197474530 / Confirmed Thoracic spondylosis / SNOMED CT 0365556438 / Confirmed Tobacco use / SNOMED CT 757606052 / Confirmed Tremor / SNOMED CT 21246721 / Confirmed UTI (urinary tract infection) / SNOMED CT 492191121 / Confirmed Venous insufficiency / SNOMED CT 800514553 / Confirmed Resolved: Hematoma / SNOMED CT 6126726976 Canceled: Balanitis / SNOMED CT 17719583 Canceled: Erectile dysfunction / SNOMED CT 7837826603 Canceled: Gross hematuria / SNOMED CT 942812793 Canceled: Lesion of bladder / SNOMED CT 590470718 Canceled: Renal hematoma / SNOMED CT 966107655 Histories Past Medical History: Resolved Hematoma ([id number]): Resolved. Procedure history: Holmium Laser/Lt Stent Exchange ([id number]) on 11/29/2022 at 57 Years. ESWL of kidney ([id number]) on 08/23/2022 at 56 Years. Cystoscopy (02235491) on 07/12/2022 at 56 Years. Epidural injection of cervical spine using fluoroscopic guidance ([id number]) on 08/17/2018 at 52 Years. Comments: 06/09/2022 13:10 Danny Maradiaga RN C6/[address] Bowles at [facility]. Epidural injection of cervical spine using fluoroscopic guidance ([id number]) on 05/26/2017 at 51 Years. Epidural injection of cervical spine using fluoroscopic guidance ([id number]) on 09/16/2016 at 51 Years. Back- titanium cage L4-L5 ([id number]) in 2000 at 36 Years. Comments: 06/23/2022 12:26 Danny Maradiaga RN lumbar fusion Total knee replacement ([id number]). bilateral Total knee replacement ([id number]). Social History Social & Psychosocial Habits Alcohol [...] significant abnormalities noted.. ECG interpretation: NSR. Plan [place] [employer] Anesthesiologists (ASA) physical status classification: Class III. Anesthetic Preoperative Plan: Anesthesia General.Addendum by Clyde Rivera Jr., DO on September 26, 2023 10:11 ESTMallampati 3 Future Appointments Appointment Date:11/03/2023 10:15:00 AM Scheduled Provider:Patito Sweet MD Location:[facility] Appointment Type:URO Office Visit [facility]12-12-2023 Hospital Discharge instructions Patient Education 09/26/2023 11:02:55 Post Op Patient Instructions - FT (Custom) (CUSTOM) 09/26/2023 10:47:43 Lue - Urolift Post-Op Instructions (CUSTOM) [facility] [place], [place] Post-Operative Instructions for UroLift After your [...] Up Care 08/18/2023 11:39:29 With:Patito Sweet Address: [facility] [address] [address] [phone] Business (1) When: Unknown Comments:Call for followup appointment in 1 month with [facility]12-06-2023 Evaluation note* Encounter Date Diagnosis Assessment Notes Treatment Notes Treatment Clinical Notes Sep, Cubital tunnel syndrome, left (I CD-10 - G56.22) Sep,Other specified postprocedural states (ICD-10 - Z98.890) Sep,Left lateral epicondylitis (ICD-10 - M77.12)Patient was prepped and area of left lateral epicondyle was injected under sterile conditions. Patient tolerated well with no adverse reactions. Tennis elbow strap applied. Examination and assessment of this patient was performed by Janine Maynard NP and patient will continue with the treatment plan per Dr. Higuera, who initiated this treatment plan. Dr. Ruiz is present in the office today and providing supervision. [employer] Other 11-22-2023 Evaluation note* Encounter Date Diagnosis Assessment Notes Treatment Notes Treatment Clinical Notes Aug, Cubital tunnel syndrome, left (I CD-10 - G56.22) Lima is here now 1 week s/p left cubital tunnel release. He is doing well. Surgical incision andphysical exam are overall benign. Sutures removed today. He has already had subjective improvement in his sensation. I explained to to him that he can return to activity slowly but without restrictions. He should continue to monitor the surgical site for any signs of infection. Will plan to see himback in 3 months if needed Sutures removed today and steri strips placed over the incision under sterile conditions. Patient tolerated well with no adverse reactions. May allow incision to get wet in clean running water, no alvarado/pablo/streams. Instructed to progress activity as tolerated. Prescription for cyclobenzaprine was sent into patients pharmacy Aug,Other specified postprocedural states (ICD-10 - Z98.890) Aug,Encounter for removal of sutures (ICD-10 - Z48.02) Aug,OtherSee orders for this visit as documented in the electronic medical record. [employer] Other 10-11-2023 Evaluation note* Encounter Date Diagnosis Assessment Notes Treatment Notes Treatment Clinical Notes Jul, Left carpal tunnel syndrome (ICD -10 - G56.02) Lima is here today s/p bilateral carpal tunnel release. He is doing well. Physical exam is overall benign. He can continue working on strengthening. Continue to monitor. Follow-up as needed Jul,Other specified postprocedural states (ICD-10 - Z98.890) Jul,ubital tunnel syndrome, left (ICD-10 - G56.22)Today we have discussed cubital tunnel syndrome. 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 We discussed the clinical changes including sensation abnormalities to the ring and pinky finger as well as weakness of director client services. Physical exam findings have also been discussed. [...] tunnel syndrome. At this juncture we have discussedthe findings and diagnosis as well as reviewed appropriate imaging and performed interpretation of testing. Surgical intervention is recommended. Prior medical notes and history have been reviewed. Surgical versus non-operative management have been discussed in detail and non- operative management was given as an option. The [...] wound closure problems and infection were discussed. Deepti- operative risks including infection, bleeding, wound healing problems, [...] the risks associated with them, in particular, poorhealing. I have advised against the intermediate teacher use of narcotic pain medication. I have advised to follow all post-operative instructions in order to obtain the best outcome. Informed consent has been v erbally affirmed and signed as indicated. Based on [...] vasculature, damage to nerves, risk with anesthesia. 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 Where to find more information [employer] [place] of [employer] and [employer]estive and Kidney Diseases: [...] depends on the type of prostatitis. Take nwtt-foe-rvzjtgh and prescription medicines only as told by [...] provider. Document Revised: 11/06/2020 Document Reviewed: 11/06/2020 ralali Patient Education 2022 Borqs. Follow Up Care 07/13/2023 09:28:59 With:JANINE MOODY PA-C, URL Address: [address] [place] [address] When: Unknown Comments:follow up with JEFFERY hernandez [facility] 09-21-2023 Evaluation note* Encounter Date Diagnosis Assessment Notes Treatment Notes Treatment Clinical Notes Jun, Sacroiliitis, not elsewhere clas sified (ICD-10 - M46.1) Patient denies any complaints [...] OARRS was processed and reviewed, no discrepancies. Risksand side effects of this medication was discussed in detail with the patient who voiced understanding. He does not need a refill at this time. Anatomy of spine discussed in detail with patient in regard to patients condition. Overall, patient believes their pain is reasonably well controlled and heis in agreement with our treatment plan. Jun,ervical arthritis (ICD-10 - M47.812)Patient continues to voice some complaints of cervical pain at this time. He was encouraged to continue with physical therapy as previously ordered as well as an upcoming EMG. Should his symptoms persist, we can consider ordering an MRI of his cervical spine. Anatomy of spine discussed in detail with patient in regards to patients condition. Jun,Other chronic pain (ICD-10 - G89.29) Jun,OtherAbove note written by Germain Bowles MA, It Infrastructure Specialist. Edited and approved by Dr. Tomi Leach MD. [place] [employer] Other 09-15-2023 Evaluation note* Encounter Date Diagnosis Assessment Notes Treatment Notes Treatment Clinical Notes Jun, Left carpal tunnel syndrome (ICD -10 - G56.02) Lima is here today s/p [...] EMG to see if we can discern fromneck versus elbow pathology follow-up after EMG Jun,Other specified postprocedural states (ICD-10 - Z98.890) Jun,ontusion of left elbow, initial encounter (ICD-10 - S50.02XA) As patient continues to experience symptoms, we will order a repeat EMG at this time. Based on EMG results, may consider further work up of the cervical spine. Jun,ody mass index [BMI]40.0-44.9, adult (ICD-10 - Z68.41) Jun,OtherSee orders for this visit as documented in the electronic medical record. [employer] Other 08-28-2023 Evaluation note* Encounter Date Diagnosis Assessment Notes Treatment Notes Treatment Clinical Notes May, Left carpal tunnel syndrome (ICD -10 - G56.02) Lima is here today now [...] main culprit. I have asked him to continueto monitor this. His EMG did not show any cubital tunnel signs but this continues to be an issue wecould possibly need to repeat his EMG. Patient will continue to monitor the pinky numbness/pain. He may need to discuss symptoms with Dr. Leach for a cervical spine work up. May,Other specified postprocedural states (ICD-10 - Z98.890) May,ontusion of left elbow, initial encounter (ICD-10 - S50.02XA) May,ody mass index [BMI]40.0-44.9, adult (ICD-10 - Z68.41) May,OtherSee orders for this visit as documented in the electronic medical record. [employer] Other 08-16-2023 Hospital Discharge instructions Patient Education [...] urethra. Follow these instructions at home: Take jqvy-lge-osdirun and prescription medicines only as told by [...] provider. Document Revised: 04/20/2022 Document Reviewed: 04/20/2022 ralali Patient Education 2022 Borqs. Follow Up Care 05/10/2023 14:32:19 With:Kee NAVARRO, Patito Good URJesse, URO Address: When: Unknown Comments:sched Cysto [facility] 06-09-2023 Evaluation note* Encounter Date Diagnosis Assessment Notes Treatment Notes Treatment Clinical Notes Mar, Right carpal tunnel syndrome (IC D-10 - G56.01) Lima is here now 1 [...] in clean running water, no alvarado/pablo/streams. Instructed on 2-5 lb weight restriction, may slowly prog ress as heals. Mar,Other specified postprocedural states (ICD-10 - Z98.890) Mar,Encounter for removal of sutures (ICD-10 - Z48.02) Mar,Left carpal tunnel syndrome (ICD-10 - G56.02)Plan to move forward with left carpal tunnel release in 6 weeks after injection We will plan on carpal tunnel release.The patient has stated that they do not want to live in this condition any longer and would like to proceed with surgery. I feel that this is a reasonable optionat this point and we may be able to improve function and decrease pain and numbness. We have discussed the process and procedure in detail including not eating or drinking 8 hrs prior to surgery, theneed for anesthesia and associated respiratory, cardiac, and patient position complications (such as nerve traction and compression). We discussed that incisional pain and continued neurologic symptoms can persist for months after surgery. The complications of infection, persistent symptoms, sensory and motor nerve injury are well known problems that can require repeat surgeries. Patient is fullyaware that this wrist may never be the same. We discussed that our team will do everything we can to help achieve the best outcome. Mar,reop examination (ICD-10 - Z01.818) Mar,OtherSee orders for this visit as documented in the electronic medical record. [employer] Other 05-25-2023 Hospital Discharge instructions Follow Up Care 03/09/2023 11:30:53 With:Kee NAVARRO, RENATA Ghotra, URO Address: When: Unknown Comments:Sched UroLift [facility] 05-12-2023 Evaluation note* Encounter Date Diagnosis Assessment Notes Treatment Notes Treatment Clinical Notes February, Contusion of left elbow, initial encounter (ICD-10 - S50.02XA) Seems to be improving at this time. We will continue to monitorThe patient has been involved in ourcooperative treatment plan and agrees to move forward with treatment at this time. February,Left carpal tunnel syndrome (ICD-10 - G56.02)Findings and diagnosis of carpal tunnel syndrome have been discussed at length with the patient. Amarilys discussed how it is the most common [...] of pinch strength in approximately 6 weeks, director client services strength recovery at about 12 weeks, and [...] management have been discussed in detail and non- operative management was given as an option. The [...] wound closure problems and infection were discussed. Deepti- operative risks including infection, bleeding, wound healing problems, [...] healing. I have advised against the intermediate teacher use of narcotic pain medication. I have advised to follow all post-operative instructions in order to obtain the best outcome. Informed consent has been verbally affirmed and signed as indicated. We will plan to move forward with right carpal tunnel release patient's request February,Right carpal tunnel syndrome (ICD-10 - G56.01) Lima returns to review EMG results today. This appears to be Carpal Tunnel Syndrome. We discussed the cause of this condition and the treatment options. We discussed the use of cortisone injectioninto the carpal tunnel can be helpful in [...] need for further surgery, scarring, wound healing issues , and nerve injury. Pt understands these risks and wishes to proceed. [employer] Other 05-01-2023 Hospital Discharge instructions Additional Instructions [...] medications as prescribed. You may take NSAIDs/Tylenol pqon-hnn-bbpckmx as indicated on the bottle. Follow-up in office as scheduled, approximately one week after surgery. Call the office with any questions or concerns. Dr. Gaurav Higuera [facility] [address] [place], [place] [id number] [facility] Work Phone: [phone]) 508-956704-25-2023 Evaluation note* Encounter Date Diagnosis Assessment Notes Treatment Notes Treatment Clinical Notes Jan, Sacroiliitis, not elsewhere clas sified (ICD-10 - M46.1) We discussed treatment options for the patient's persistent low right lumbar/gluteal pain. He showsnotable pain consistent with the sacroiliac joint. He has failed multiple previous conservative treatment options. Given location of pain and exam findings, patient is a candidate for right sacroiliac joint injection, which we will proceed with. Risks and benefits of procedure explained to patient;patient verbalizes understanding. In the meantime given severity of overall pain symptoms, we will prescribe Tramadol 50 mg to be taken as needed for breakthrough pain, he has taken this in the past very sparingly with benefit. OARRS was processed and reviewed, no discrepancies. Risks and side effects of this medication was discussed in detail with the patient who voiced understanding. Anatomy ofspine discussed in detail with patient in regard to patients condition. Jan,Other low back pain (ICD-10 - M54.59) Jan,Other chronic pain (ICD-10 - G89.29) Jan,OtherAbove note written by Lakshmi Lorenzo LPN, It [employer] Specialist. Edited and approved by Dr. Tomi Leach MD. [place] [employer] Other 04-19-2023 Evaluation note* Encounter Date Diagnosis [...] patient in office today. Prior medical notes Counts Include [facility] ED and historyhave been reviewed. At this time I would [...] may consider further evaluation and treatment options. Jan,Left carpal tunnel syndrome (ICD-10 - G56.02)Findings and diagnosis of carpal tunnel syndrome have been discussed at length with the patient. Wericve discussed how it is the most common [...] of pinch strength in approximately 6 weeks, director client services strength recovery at about 12 weeks, and the possibility of ongoing symptoms at 1 year and 20% of severe cases. Patient verbalized understanding of our discussion and would like to move forward with EMG at this time. We will order EMG for further evaluation. May consider following with carpal tunnel release. Jan,Right carpal tunnel syndrome (ICD-10 - G56.01) Jan,OtherSee orders for this visit as documented in the electronic medical record. [employer] Other 04-03-2023 Evaluation + Plan noteExtracted from:Title: EU Local Cysto w/ L Stent Removal - FTAuthor:Patito Sweet MDDate:01/16/23 Patient: LIMA LOYD Age: 57 years Sex: Male : 1965 Associated Diagnoses: None Author: Patito Sweet MD Procedure Operative Information Details: Date/ Time: 01/16/2023 08:56:00. Pre-Op Dx: Foreign body in bladder ([id number] T19.1XXA, Billing Diagnosis, Medical), Kidney stone ([id number]-VO N20.0, Discharge, Medical). Post-Op Dx: Same. Anesthesia [...] renal US and KUB in 6-8 wks .Addendum by Patito Sweet MD on January 16, 2023 8:58 EDTStone analysis from recent procedure not available yet. Prior stones were 100% CaOx mono Future Appointments Appointment Date:03/09/2023 10:15:00 AM Scheduled Provider:Patito Sweet MD Location:[facility] Appointment Type:URO Office Visit [facility]04-03-2023 Hospital Discharge instructions Patient Education [...] Up Care 01/12/2023 09:39:17 With:Patito Sweet Address: [address] [place] [phone] Business (1) [facility] [address] [address] [phone] Business (1) When: Unknown Comments:Office to schedule follow up in 6-8 wks with renal US, KUB and metabolic stone workup [facility]03-08-2023 Hospital Discharge instructions Patient Education 12/21/2022 08:06:14 Kidney Stones, Jnmr-jz-Zpwd Kidney Stones Kidney stones are rock-like masses [...] Follow these instructions at home: Medicines Take mbiw-hvu-wfycwvl and prescription medicines only as told by [...] 03/20/2009 Document Revised: 02/18/2020 Document Reviewed: 02/18/2020 ralali Patient Education 2019 Borqs. Follow Up Care 11/30/2022 15:07:22 With:Kee NAVARRO, RENATA Ghotra, URO Address: When: Unknown [facility] 02-09-2023 Evaluation note* Encounter Date Diagnosis Assessment Notes Treatment Notes Treatment Clinical Notes Nov, Sacroiliitis, not elsewhere clas sified (ICD-10 - M46.1) Patient is also continues to voice complaints of right sided low lumbar/gluteal pain however we will hold off on further treatment in this region until his current urology issues are resolved. Nov,Right flank pain (ICD-10 - R10.9)Patients primary complaint today is persistent right flank pain following several treatments/ procedures for multiple kidney stones. Patient was sent for a possible nerve block however he notes an upcoming surgery scheduled for next week with urology therefore we will hold off at this time. Patientis in agreement. We will see how he does with the surgery; if he has residual pain we will considerproceeding with a nerve block. Our office will reach our ro urology for further clarification. In the meantime, given the severity of his symptoms, I will prescribe a temporary supply of [place] 5-325 up to twice daily as needed. OARRS was processed and reviewed, no discrepencies. Risks and side effects of this medication was discussed in detail with the patient who voiced understanding. Additionally, Flexeril was refilled today. We will follow up with the patient after his upcoming procedure. Nov,Other chronic pain (ICD-10 - G89.29) Nov,OtherAbove note written by Germain Bowles MA, It Infrastructure Specialist. Edited and approved by Dr. Tomi Leach MD. [employer] Other 02-09-2023 Evaluation note* Encounter Date Diagnosis Assessment Notes Treatment Notes Treatment Clinical Notes Nov, Right flank pain (ICD-10 - R10.9 ) [employer] Other 01-19-2023 Hospital Discharge instructions Patient Education [...] include: ?Spinach. ?Rhubarb. ?Beets. ?Potato chips and pit[place] islander fries. ?Nuts. If you regularly take a diuretic medicine, make sure to eat at least 1 2 fruits or vegetables high in potassium each day. These include: ?Avocado. ?Banana. ?[place], prune, carrot, or tomato juice. ?Baked potato. [...] Casseroles. Pizza. Lasagna. Frozen meals. Potato chips. [place] fries. Summary You can reduce your [...] 01/27/2012 Document Revised: 01/22/2020 Document Reviewed: 09/12/2017 ralali Patient Education 2020 Borqs. Follow Up Care 11/03/2022 11:32:52 With:Patito Sweet MD, URL, URO Address: When: Unknown [facility] 01-11-2023 Evaluation + Plan note Diagnostic Tests Pending * Urine Culture 10/26/22 [facility]12-19-2022 Hospital Discharge instructions Follow Up Care 10/03/2022 10:36:41 With:Patito Sweet MD, URL, URO Address: When: Unknown [facility] 12-07-2022 Hospital Discharge instructions Patient Education 09/21/2022 [...] include: ?Spinach. ?Rhubarb. ?Beets. ?Potato chips and pit[place] islander fries. ?Nuts. If you regularly take a diuretic medicine, make sure to eat at least 1 2 fruits or vegetables high in potassium each day. These include: ?Avocado. ?Banana. ?[place], prune, carrot, or tomato juice. ?Baked potato. [...] Casseroles. Pizza. Lasagna. Frozen meals. Potato chips. [place] fries. Summary You can reduce your [...] 01/27/2012 Document Revised: 01/22/2020 Document Reviewed: 09/12/2017 ralali Patient Education 2020 Borqs. Follow Up Care 08/25/2022 10:58:56 With:Kee NAVARRO, RENATA Ghotar, URO Address: When:1 month [facility] 10-31-2022 Evaluation note* Encounter Date Diagnosis Assessment Notes Treatment Notes Treatment Clinical Notes Jul, Other spondylosis wi th radiculopathy, lumbar region (ICD-10 - M47.26) Jul,acroiliitis, not elsewhere classified (ICD-10 - M46.1)We discussed treatment options for the patient's persistent low right sided lumbar/gluteal pain. [place] neuro[facility] who believes much of his pain may be related to his SI joint, the patient is in agreement to try conservative measures prior to considering further sugery. He shows notable pain consistent with the sacroiliac joint. He has failed multiple previous conservative treatment options. Given location of pain and exam findings, patient is a candidate for right sacroiliac joint injection,which we will proceed with. Risks and benefits of procedure explained to patient; patient verbalizes understanding. Finally, he has started physical therapy as well. Anatomy of spine discussed in detail with patient in regard to patients condition. Jul,ther low back pain (ICD-10 - M54.59) Jul,ther chronic pain (ICD-10 - G89.29) Jul,therAbove note written by Lakshmi Lorenzo LPN, It Infrastructure Specialist. Edited and approved by Dr. Tomi Leach MD. [employer] Other 10-27-2022 Evaluation note* Encounter Date Diagnosis Assessment Notes Treatment Notes Treatment Clinical Notes Jul, Neck pain (ICD-10 - M54.2) Jul,History of lumbar fusion (ICD-10 - Z98.1) Jul,Inflammation of right sacroiliac joint (ICD-10 - M46.1) Jul,pinal stenosis of lumbar region, unspecified whether neurogenic claudication present (ICD-10 - M48.061)This gentleman had a lumbar fusion L4-5 20 years ago in [place]. Over the last year he has been noting buttock and leg discomfort down the back of his legs which may be claudicatory with prolonged s tanding and walking. He also has clinically a lot of sacroiliac pain on the right. The patient would like to try and avoid surgery as much as possible. Britany chavez will send him for physical therapy. In addition we will send him back to pain management for a sacroiliac injection on the right. We will see how he does and reevaluate him in 4 to 5 weeks. [employer] Other 10-26-2022 Hospital Discharge instructions Patient Education [...] Follow these instructions at home: Medicines Take fybt-pvn-ibrmisg and prescription medicines only as told by [...] 09/29/2001 Document Revised: 09/14/2018 Document Reviewed: 10/18/2017 ralali Patient Education 2019 [employer] Follow Up Care 07/28/2022 15:43:12 With:Kee NAVARRO, RENATA Ghotra, URO Address: [address] [place] [phone] When: Unknown [facility] Evaluation [facility]* Encounter Date Diagnosis Assessment Notes Treatment Notes Treatment Clinical Notes Jul, Other spondylosis wi th radiculopathy, lumbar region (ICD-10 - M47.26) Patients [...] narrowing particularly on the right side at L5- S1, seen on previous imaging. We discussed at [...] with patient in regard to patients condition. Jul,ther low back pain (ICD-10 - M54.59) Jul,ther chronic pain (ICD-10 - G89.29) Jul,therAbove note written by Lakshmi Lorenzo LPN, It Infrastructure Specialist. Edited and approved by Dr. Tomi Leach MD. [employer] Other 10-06-2022 Evaluation note* Encounter Date Diagnosis Assessment Notes Treatment Notes Treatment Clinical Notes Jul, Other spondylosis wi th radiculopathy, lumbar region (ICD-10 - M47.26) [employer] Other 09-27-2022 Hospital Discharge instructions Patient Education [...] including vitamins, herbs, eye drops, creams, and ddbp-ajg-saksyxx medicines. Any problems you or family members [...] provider tells you to take them. ?Taking htsr-hpw-yozwtyg medicines, vitamins, herbs, and supplements. Follow instructions [...] Follow these instructions at home: Medicines Take ducx-cbs-kfjlvuv and prescription medicines only as told by [...] 09/29/2001 Document Revised: 09/24/2019 Document Reviewed: 09/24/2019 ralali Patient Education 2020 [employer]. Follow Up Care 06/22/2022 13:16:22 With:Kee NAVARRO, RENATA Ghotra, URO Address: [address] [place] [address]- [phone] When:Within 4 Week(s) Comments:w/ CT w/o contrast [facility] 09-12-2022 Evaluation note* Encounter Date Diagnosis Assessment Notes Treatment Notes Treatment Clinical Notes Jun, Other spondylosis wi th radiculopathy, lumbar region (ICD-10 - M47.26) Patients primary complaint today continues to be low back pain radiating into the posterior aspect of his right lower extremity, extending into his foot. He has exhausted multiple treatment options without benefit. Unfortunately, patient only experienced short term relief following a recent L5 right transforaminal. His symptoms remain consistent with neural foraminal narrowing particularly on theright side at L5-S1, seen on previous imaging. Patient continues to want to avoid discussion of surgery at this time, I believe he would be a reasonable candidate for an interlaminar lumbar epidural steroid injection which we will proceed with. Risks and benefits of procedure explained to patient; patient verbalizes understanding. Additionally, given the severity of his symptoms, I will take overthe patients current conservative regimen of Tramadol up to once daily as needed for severe pain. Patient was advised I do not wish for this to be a intermediate teacher prescription. OARRS was processed and reviewed, no discrepencies. He signed an opioid contract with us today in office. Anatomy of spine disc ussed in detail with patient in regards to patients condition. 12 Jun,ther low back pain (ICD-10 - M54.59) Jun,ther chronic pain (ICD-10 - G89.29) Jun,therAbove note written by Germain Bowles MA, [employer] Specialist. Edited and approved by Dr. Tomi Leach MD. [employer] Other 09-07-2022 Hospital Discharge instructions Patient Education 06/22/2022 10:48:00 Kidney Stones, Nmox-go-Milk Kidney Stones Kidney stones are rock-like masses [...] Follow these instructions at home: Medicines Take tygn-ytq-ipcsbqp and prescription medicines only as told by [...] 03/20/2009 Document Revised: 02/18/2020 Document Reviewed: 02/18/2020 ralali Patient Education 2020 [employer]. 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 He had good relief with cortisone injections [facility] would continue to monitor this. Modify activities as needed. Anti-inflammatories as needed. Follow-up as needed. Apr,rthritis, lumbar spine (ICD-10 - M47.816) Apr,Lumbar radiculopathy (ICD-10 -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 elsewhere classified Neuropathy Primary osteoarthritis of left knee Primary osteoarthritis of right knee S/P total knee arthroplasty Tendinitis of left quadriceps tendon Chief Complaint 6 WEEK RECHECK R knee OA Z01.818Reason for VisitNeuropathy Primary osteoarthritis of left knee Primary osteoarthritis of right knee S/P total knee arthroplasty Tendinitis of left quadriceps tendon Chief Complaint Admit Date Z01.818 August 20, 2024 1 1:49am n20.0 November 06, 2024 1 0:14am Chief Complaint Admit Date OP SP RT HAND PAIN February 05, 2025 12: 44pm Reason for Visit Admit Date Mass of finger February 05, 2025 12: 44pm Other specified postprocedural states Ap ril 2024 12:44pm Trigger finger, left middle finger February 05, 2025 12:44pm Trigger finger, right middle finger Apri l 2024 12:44pm Chief Complaint Admit Date N20.0 N40.1 May 07, 2025 2:43 pm Family History No Family History Records Found Relationship Condition Age at Onset Recorded Date/T rajesh brother Diabetes mellitus Unknown sisterDiabetes mellitusUnknownNot SpecifiedDiabetes mellitusUnknownfather LeukemiaUnknown Relationship Condition Age at Onset Recorded Date/T rajesh brother Diabetes mellitus Unknown sisterDiabetes mellitusUnknownMyocardial infarctionUnknownHistory of heart surgeryUnknownRenal failureUnknownNot SpecifiedDiabetes mellitusUnknownfather LeukemiaUnknown Relationship Condition Age at Onset Recorded Date/T rajesh brother Diabetes mellitus Unknown sisterDiabetes mellitusUnknownMyocardial infarctionUnknownHistory of heart surgeryUnknownRenal failureUnknownNot SpecifiedDiabetes mellitusUnknownfather LeukemiaUnknownfatherDeceasedUnknownNot SpecifiedDeceasedUnknown Relationship Condition Age at Onset Recorded Date/T rajesh brother Diabetes mellitus Unknown sisterDiabetes mellitusUnknownMyocardial infarctionUnknownHistory of heart surgeryUnknownRenal failureUnknownmotherDiabetes mellitusUnknownfatherLeukemia UnknownfatherDeceasedUnknownmotherDeceasedUnknown Advance Directives No Advanced Directives Records Found [...] carpal tunnel s yndrome (G56.02) Referral Organization [facility] [employer] pedCommunityForce Referring Provider First Name Gaurav Referring Provider Last Name Davida Referring Provider Specialty Orthopedic Surgery Referred Organization [facility] Referred Provider Patti Whelan Referred Address [address] [place], [place],[address] Referred Provider Specialty Neurology Referral Priority Routine [...] carpal tunnel s yndrome (G56.02) Referral Organization [facility] theRightAPI Referring Provider First Name Gaurav Referring Provider Last Name Davida Referring Provider Specialty Orthopedic Surgery Referred Organization [facility] Referred Address [address] [place],[address] Referred Provider Specialty Neurology Referral Priority Routine General Notes Janine Walden 08:08:02 AM >received today, holding until Dr Higuera's note is locked Janine Walden 02/03/2023 08:28:03 AM >still holding, note not locked yet Reason Evaluate and Treat B ack and Leg Pain at [facility] [place] [facility] Diagnosis 1 Spinal stenosis of l umbar region, unspecified whether neurogenic claudication present (M48.061) Referral Organization [facility] Referring Provider First Name Ramiro Referring Provider Last Name Ariel Referring Provider Specialty Neurologica l Surgery [facility] Referred Address [address], [place],[address] Referred Provider Specialty Physical The rapist Referral Priority Routine Reason ra lower extr emity pain, no relief with epidural, history of lumbar fusion. Patient requesting referral to Dr. George Diagnosis 1 Other spondylosis wi th radiculopathy, lumbar region (M47.26) Referral Organization [facility] Referring Provider First Name Tomi Referring Provider Last Name Haylee Referring Provider Specialty Pain Medici ne Referred Organization Unknown Facility Referred Provider Ramiro George Referred Provider Specialty Neurological Surgery Referral Priority Routine General Notes Janine Walden 02:57:17 PM >p2p sent Summary Purpose Additional Source Comments REASON FOR VISIT (unrecogniz ed section and content) ReasonCommentsFoot PainB/L arch painReasonCommentsConsultSurgery consultReason CommentsPost-op1ST POST OP- 1-10 AVULSIONReasonCommentsPost-op14d s/p 1-10 cbtxbedmYagrorXbajkfxfFxje-ma3-40 tpnFollow-upRt zdSmdsdlNmkclbxhXvqudu-hm7-46 TPNPBReasonCommentsFollow-upRt pb 1ReasonCommentsSuspicious Skin LesionSkin Check Care Team (unrecognized sect ion and content) Team Status: Active Member Role Status Sanket Terrell MD Primary Care Provider Active Team Status: Inactive Member Role Status Sanket Terrell MD Primary Care Provider Active Start: March 13, 2024 End: March 13, 2024Demi Adams ProviderActiveStart: March 13, 2024 End: March 13, 2024 Team Status: Inactive Member Role Status Sanket Terrell MD Primary Care Provider Active Start: April 29, 2024 End: April 29, 2024Demi Adams ProviderActiveStart: April 29, 2024 End: April 29, 2024 Team Status: Inactive Member Role Status Sanket Terrell MD Primary Care Provider Active Start: May 07, 2024 End: May 07, 2024Richard Dinh ProviderActiveStart: May 07, 2024 End: May 07, 2024 Team Status: Inactive Member Role Status Sanket Terrell MD Primary Care Provider Active Start: May 20, 2024 End: May 20, 2024ThRichard Ramachandran ProviderActiveStart: May 20, 2024 End: May 20, 2024 Team Status: Active Member Role Status Sanket Terrell MD Primary Care Provider Active Start: February 19, 2024 Pita Messerending ProviderActiveStart: February 19, 2024 Team Status: Inactive Member Role Status Sanket Terrell MD Primary Care Provider Active Start: February 19, 2024 End: February 19, 2024Pita Messerending ProviderActiveStart: February 19, 2024 End: February 19, 2024 Team Status: Inactive Member Role Status Sanket Terrell MD Primary Care Provider Active Start: January 10, 2024 End: January 09Richard Whyte ProviderActiveStart: January 10, 2024 End: January 10, 2024 Team Status: Inactive Member Role Status Sanket Terrell MD Primary Care Provider Active Start: February 01, 2024 End: February 01, 2024Pita Messerending ProviderActiveStart: February 01, 2024 End: February 01, 2024 Team Status: Active Member Role Status Sanket Terrell MD Primary Care Provider Active Start: December 04, 2023 Demi Adams ProviderActiveStart: December 04, 2023 Team Status: Inactive Member Role Status Sanket Terrell MD Primary Care Provider Active Start: December 04, 2023 End: December 04, 2023Demi Adams ProviderActiveStart: December 04, 2023 End: December 04, 2023 Team Status: Inactive Member Role Status Sanket Terrell MD Primary Care Provider Active Start: December 06, 2023 End: December 06Pita Whyteending ProviderActiveStart: December 06, 2023 End: December 06, 2023 Team Status: Inactive Member Role Status DO Andreina Gunter Provider Active S tart: September 06, 2023 End: September 06, 2023 Team Status: Inactive Member Role Status Sanket Terrell MD Primary Care Provider Active Start: September 15, 2023 End: September 15nadege Sweet MDAttending ProviderActiveStart: September 15, 2023 End: September 15, 2023 Team Status: Inactive Member Role Status Dates Janine L [place] , PAINTING INSTRUCTOR-C Attending Provider Active Start: September 20, 2023 End: September 20, 2023 Team Status: Inactive Member Role Status DO Andreina Gunter Provider Active S tart: October 25, 2023 End: October 25, 2023 Team Status: Inactive Member Role Status Sanket Terrell MD Primary Care Provider Active Start: October 30, 2023 End: October 30Richard Whyte ProviderActiveStart: October 30, 2023 End: October 30, 2023 Team Status: Inactive Member Role Status Sanket Terrell MD Primary Care Provider Active Start: November 23, 2023 End: November 23, 2023Richard Dinh ProviderActiveStart: November 23, 2023 End: November 23, 2023 Team Status: Active Member Role Status Sanket Terrell MD Primary Care Provider Active Referral SelfAtthenry ProviderActive Team Status: Inactive Member Role Status Sanket Terrell MD Primary Care Provider Active Demi Adams ProviderActive Team Status: Inactive Member Role Status Sanket Terrell MD Primary Care Provider Active Richard Messer ProviderActive Team Status: Active Member Role Status Sanket Terrell MD Primary Care Provider Active Richard Messer ProviderActive Team Status: Inactive Member Role Status Sanket Terrell MD Primary Care Provider Active Richard Dinh ProviderActive Team Status: Inactive Member Role Status Sanket Terrell MD Primary Care Provider Active Marina Flores , SECURITY SYSTEM ENGINEER-BCEmergency ProviderActive Team Status: Inactive Member Role Status Sanket Terrell MD Primary Care Provider Active Demi Adams ProviderActivePatito Sweet MDOther ProviderActive Team Status: Inactive Member Role Status Sanket Terrell MD Primary Care Provider Active Cynthia Ornelas ProviderActive Team Status: Inactive Member Role Status Sanket Terrell MD Primary Care Provider Active Richard Chi ProviderActive Team Status: Active Member Role Status Sanket Terrell MD Primary Care Provider Active Start: March 13, 2024 Demi Adams ProviderActiveStart: March 13, 2024 Team Status: Active Member Role Status Dates Jeff Terrell MD Primary Care Provider Active Start: June 06, 2024 Gaurav Higuera DOAttending ProviderActiveStart: June 06, 2024 Team Status: Inactive Member Role Status Dates Jeff Terrell MD Primary Care Provider Active Start: June 12, 2024 End: June 12, 2024Jumarlon Higuera DOAttending ProviderActiveStart: June 12, 2024 End: June 12, 2024 Team Status: Inactive Member Role Status Dates Jeff Terrell MD Primary Care Provider Active Start: July 08, 2024 End: July 08, 2024Jumarlon Higuera DOAttending ProviderActiveStart: July 08, 2024 End: July 08, 2024Team MemberRelationshipSpecialtyStart DateEnd Date Jeff Terrell MD [address] [place] [address] PCP - [facility] Jyodimvm37/21/24Team MemberRelationshipSpecialtyStart Date End Date Jeff Terrell MD [address] [place] [address] PCP - [facility]08/05/24Team MemberRelationshipSpecialtyStart Date End Date Jeff Terrell MD [address] [place] [address] PCP - [facility]08/05/24 Team Status: Inactive Member Role Status Dates Jeff Terrell MD Primary Care Provider Active Start: August 20, 2024 End: August 20, 2024SKY Palaciostthenry ProviderActiveStart: August 20, 2024 End: August 20, 2024Team MemberRelationshipSpecialtyStart DateEnd Date Jeff Terrell MD [address] [place] [address] PCP - GeneralFamily Fwcobaon68/21/24Team MemberRelationshipSpecialtyStart Date End Date Jeff Terrell MD [address] [facility] [place] [address] PCP - GeneralFamily Hkykalsm11/21/24Team MemberRelationshipSpecialtyStart Date End Date Jeff Terrell MD [address] [place] [facility] [place] [address] PCP - GeneralFamily Srgdpcye50/21/24Team MemberRelationshipSpecialtyStart Date End Date Jeff Terrell MD [address] [facility], [facility] PCP - GeneralFamily Ccpjoqly22/21/24Team MemberRelationshipSpecialtyStart Date End Date Jeff Terrell MD [address] [facility], [facility] PCP - GeneralFamily Uuifucrh45/21/24Team MemberRelationshipSpecialtyStart Date End Date Jeff Terrell MD [address] [facility], [facility] PCP - GeneralFamily Qtcnngwf85/21/24Team MemberRelationshipSpecialtyStart Date End Date Jeff Terrell MD [address] [facility] [place] [address] PCP - GeneralFamily Sbagdxdh51/21/24Team MemberRelationshipSpecialtyStart Date End Date Jeff Terrell MD [address] [place] [address] PCP - [facility]08/05/24 Team Status: Inactive Member Role Status Dates Jeff Terrell MD Primary Care Provider Active Start: November 06, 2024 End: November 06, 2024Richard Dinh ProviderActiveStart: November 06, 2024 End: November 06, 2024Team MemberRelationshipSpecialtyStart DateEnd Date Jeff Terrell MD [address] [place] [address] PCP - [facility]08/05/24 Team Status: Inactive Member Role Status Dates Jeff Terrell MD Primary Care Provider Active Start: February 05, 2025 End: February 05Richard Whyte ProviderActiveStart: February 05, 2025 End: February 05, 2025 Team Status: Inactive Member Role Status Dates Jeff Terrell MD Primary Care Provider Active Start: May 07, 2025 End: May 07, 2025Richard Dinh ProviderActiveStart: May 07, 2025 End: May 07, 2025 Goals (unrecognized section and content) Goals may be documented in a n alternate section (unrecognized sect ion and content) No Status Records FoundNo Status Records FoundNo Status Records FoundNo Status Records FoundNo Status Records Found INFORMATION SOURCE (unrecogn ized section and content) DATE CREATED AUTHOR 02/25/2023 [facility] DATE CREATED AUTHOR AUTHOR'S ORGANIZ ATION 11/18/2024 [facility] DATE CREATED AUTHOR AUTHOR'S ORGANIZ ATION 01/04/2025 [facility] DATE CREATED AUTHOR AUTHOR'S ORGANIZ ATION 05/09/2025 [facility] [address] [facility] DATE CREATED AUTHOR AUTHOR'S ORGANIZ ATION 07/25/2025 [facility] FOR RECORDS PERTAINING TO PATIENTS WHO ARE [...] BE BASED ON THE PRIMARY CLINICAL RECORDS. [facility] [employer] [facility]. provides no warranty or guarantee of the accuracy or completeness of information in this document.
== END 2025-08-05 09:56 | disposition home or self-care (01) ==
LOC: PST 09:57
PROVIDERS: PCP Family Medicine; Visit Provider Surgery
DX: Z01.818 Encounter for other preprocedural examination (principal); Z12.11 Encounter for screening for malignant neoplasm of colon

== ENCOUNTER 2025-08-13 06:08 | Day surgery (SDC) | payer MEDICARE, SELFPAY ==
--- NOTE | 2025-08-13 | OP_ITS ---
OPERATION DATE: 08/13/2025 PREOPERATIVE DIAGNOSIS: Colorectal screening. POSTOPERATIVE DIAGNOSIS: A 3 mm ascending colon polyp. PROCEDURE: Colonoscopy to cecum with cold snare polypectomy x1 for a 3 mm ascending colon polyp. SURGEON: Carlito Garcia M.D. ANESTHESIA: Monitored anesthesia care. ESTIMATED BLOOD LOSS: Less than 1 mL. INDICATIONS AND CONSENT: Patient is a 59-year-old male, presents for colorectal screening. Indications, risks, benefits, alternatives of proceeding with colonoscopy were explained extensively to the patient, including the risks of bleeding, colon perforation or anesthetic complications. All of his questions were answered. Informed consent was obtained. PROCEDURE: Patient brought to the operating room, placed in the left lateral decubitus position. Monitored anesthesia care was provided. Rectal exam was performed which showed no masses or blood. The scope was inserted into the anal canal. Under direct visualization was advanced. It was advanced to the cecum where cecal markings were clearly identified. Upon withdrawal of the scope, mucosal surfaces were carefully examined. Within the ascending colon, there was noted to be a 3 mm sessile polyp that was removed with cold snare with good hemostasis. There were no other mass lesions or polyps noted. No significant diverticulosis. The scope was retroflexed in the anal canal. There were some prominent rectal veins, but no significant hemorrhoidal disease. The scope was then withdrawn. Patient tolerated procedure well, was sent to recovery room in good condition. Follow up colonoscopy likely in five years, but will depend on the pathology results. CC: Jeff Whitehead M.D. HIRO
[2025-08-13 06:13] VITALS: BP 168/99; PULSE 77; TEMP 36.2; O2SAT 95; BMI 39.4
--- OUTSIDE RECORDS SUMMARY | 2025-08-13 06:13 | XMS_ITS | CCD ---
Author Organization [facility] Care Team Providers Care Cook Vegetable Name Role Phone Gaurav Higuera Unavailable Tomi Leach Unavailable Jeff Terrell Primary Care Physician MD Jeff Terrell Primary Care Provider DO Gaurav Higuera A Attending Provider MD Tomi Leach Attending Provider MD Patito Sweet Attending Provider Ramiro George Unavailable MD Jeff Terrell Primary Care Provider DO Gaurav Higuera Attending Provider [phone] MD Jeff Terrell Primary Care Provider MD Tomi Leach Attending Provider MD Patito Sweet Attending Provider MD Jeff Terrell Primary Care Provider MD Tomi Leach Attending Provider MD Jeff Terrell Primary Care Provider MD Patito Sweet Attending Provider MD Jeff Terrell Primary Care Provider MD Patito Sweet Attending Provider [phone] MD Jeff Terrell Primary Care Provider MD Patito Sweet Attending Provider GALLO Flores-MACIE Chavez Emergency Provider [phone] SRIDHAR MCLAUGHLIN Consulting Unavailable HOY ., DR [...] Unavailable LUE ., PATITO M Consulting Unavailable [place], DR MYRA Allen Consulting Unavailable HOY ., [...] DR TRAN Primary Care Unavailable LUE ., PTAITO M Attending Unavailable LUE ., PATITO M [...] Care Provider DO Gaurav Higuera Attending Provider [phone] Lue, MD Patito M Other Provider MD Jeff Terrell Primary Care Provider MD Tomi Leach Attending Provider [phone] MD Jeff Terrell Primary Care Provider Self, Referral Attending Provider Unavailable DO Davida Gaurav A Attending Provider MD Jeff Terrell Primary Care Provider MD Tomi Leach Attending Provider DO Davida Gaurav A Attending Provider [phone] Self, Referral Attending Provider Unavailable CHARLI Black Emergency Provider [phone] MD Patito Sweet Attending Provider Janine Maynard Unavailable Melissa Castellano Unavailable MD Jeff Terrell Primary Care Provider MD Melissa Castellano Attending Provider MD Jeff Terrell Primary Care Provider DO Gaurav Higuera A Attending Provider [phone] MD Jeff Terrell Primary Care Provider MD Melissa Castellano Attending Provider MD Patito Sweet Attending Provider DO Clay Higuerain A Attending Provider MD Jeff Terrell Primary Care Provider MD Jeff Terrell Primary Care Provider MD Jeff Terrell Primary Care Provider DO Gaurav Higuera A Attending Provider MD Patito Sweet Attending Provider MD Jeff Terrell Primary Care Provider DO Davida Gaurav A Attending Provider [phone] DO Davida Gaurav A Attending Provider Jeff Terrell MD Primary Care Provider [phone] MD Jeff Terrell Primary Care Provider DO Gaurav Higuera Attending Provider NICOLAS Paredes Attending Provider Jeff Terrell MD Primary Care Provider Venkat Paredes DPM Attending Provider [phone] Patito Sweet MD Attending Provider [phone] OMBALLI, MOHAMED Referring Unavailable OMBALLI, MOHAMED Attending [...] Care Provider Patito Sweet MD Attending Provider [phone] Jeff Terrell M Primary Care Unavailable Lue, [...] [amoxicillin-clavulanate] Drug Allergyhives, Unknown (qualifier value), Weal (disorder)[employer] Other Comment on above:listed as allergy on 05/26/22pt states he has no issues with this medicaiton (20 sources)Morphine; Translations: [morphine]Drug Qykyxgh03-71-7570vtlvs, Unknown (qualifier value), [facility] Other Comment on above:all in morphine family (20 sources)traMADolDrug Xdfcife74-39-0255Rjidakk, [facility] (20 sources)Bee/Wasp/Ant venom; Translations: [Bee Stings]Drug vkmigjo02-13-6974 [facility] (20 sources)AmoxicillinDrug Dqlgfnt15-71-9284JfqgpYkqmhpindUniversity Hospitals Health SystemComment on above:Pt states had amoxicillin recently with no problems (20 sources)ClavulanateDrug Cjikmjl17-53-3431BcrqiGrkgmywhtUniversity Hospitals Health System (10 sources)oxyCODONEDrug Qdbvopx36-58-1207IntofbsvtNmamuzqmmLutheran Hospital (14 sources)Ciprofloxacin; Translations: [ciprofloxacin]Drug AllergyUnknown (qualifier value)[facility] (11 sources)Amoxicillin / Clavulanate; Translations: [Augmentin]Drug Allergy 23-60-7309tecebQlq Repository (2 sources)Acetaminophen / oxyCODONEDrug Zzlwrtx98-17-3521Ild [facility] Rep[facility] (1 source)bee venomDrug allergy (disorder)[facility] (2 sources)MorphineDrug Dktnaup67-46-4929Nmw [facility] Rep[facility] (1 source)traMADolDrug Hjmyilw41-15-3625Nfi [facility] (2 sources)MorphineDrug AllergyAdventHealth Apopka [employer] Other (20 sources)Amoxicillin-Pot Clavulanate; Translations: [AMOXICILLIN-POT CLAVULANATE]Drug Rpwujdbbzds46-91-3371Twlop, Itching, Rash, SwellingNOMS Healthcare (1 source)BEE VENOM PROTEIN (HONEY BEE); Translations: [BEE VENOM PROTEIN (HONEY BEE)]Propensity to adverse reactions to drug (disorder)44-99-7552JijfieczdxCleveland Clinic [facility] Rep[facility] Medications Current Medications MedicationDrug Class(es)DatesSig (Normalized)Sig (Original)acetaminophen 500 mg oral tablet (20 sources)Start: 17-34-3337cyvy 2 tablets by mouth every six hours as needed for painacetaminophen 500 mg Tab 1,000 mg = 2 tab(s), Oral, q6hr, PRN as needed for pain, Refills(s) 0 Start Date: 03/04/21 Status: OrderedStart: 03-04-2021 acetaminophen 500 mg Tab Refills(s) 0 Start Date: 03/04/21 Status: OrderedStart: 02-12-2021 End: 44-45-6473orao 1 tablet by mouth every six hours as needed for pain Acetaminophen 500 mg Tablet Discontinued 500 MG PO Q6H as needed for Pain 120 February 12, 2021 12:00am August 12, 2022 1:40pmStart: 02-05-2021 End: 49-28-7350mqbt 2 tablets by mouth every eight hours as needed for pain Acetaminophen 500 mg Tablet Discontinued 1000 MG PO Q8H as needed for Fever Or Pain February 05, 2021 12:00am February 12, 2021 8:59amStart: 02-05-2021 End: 62-06-5732gwdv 1000 mg by mouth every eight hoursAcetaminophen Discontinued 1000 MG PO Q8H February 04, 2021 11:00pm February 12, 2021 7:59amALPRAZolam 0.25 mg oral tablet (20 sources)BenzodiazepineStart: 00-01-1231Qckvr 0.25 mg Tab 0.25 mg = 1 tab(s), Oral, PRN for anxiety Start Date: 09/26/23 Status: Ordered Repeat number: 1 Start: 09-30-2022 End: 99-56-7251mpaz 1 tablet by mouth once daily at bedtimeAlprazolam 0.25 mg tablet Discontinued 0.25 MG PO Daily at bedtime September 30, 2022 1:00am November 29, 2022 10:09amStart: 17-42-0124zwzq 0.5-1 tablets by mouth three times daily as needed for anxietyalprazolam 0.25 mg Tab 0.5-1 tabs, Oral, TID, PRN as needed for anxiety, Refills(s) 0 Start Date: 09/21/22 Status: Ordered Start: 00-06-2448orciqlodtq 0.25 mg Tab 21 tab(s), Refills(s) 0 Start Date: 09/21/22 Status: OrderedXanax Activeamitriptyline hydrochloride 50 mg oral tablet (20 sources)Tricyclic AntidepressantStart: 72-35-4471fpbs 1 mg by mouth once daily at bedtimeamitriptyline 50 mg Tab mg tab(s), Oral, Once a day (at bedtime), Refills(s) 0 Start Date: 11/03/23 Status: Ordered Repeat number: 1 celecoxib 200 mg oral capsule (20 sources)Nonsteroidal Anti-inflammatory DrugStart: 31-55-1284jhgs 1 capsule by mouth twice daily at mealtimeStart: 05-09-2022 End: 12-73-5303jset 1 capsule by mouth twice dailyCelecoxib 200 mg capsule Discontinued 200 MG PO Twice daily July 26, 2022 12:00am November 29, 2022 10:10amcitalopram 40 mg oral tablet (20 sources)Serotonin Reuptake InhibitorStart: 09-28-2017 End: 63-83-1769zmkt 1 tablet by mouth once dailycitalopram 40 mg Tab 40 mg = 1 tab(s), Oral, Daily, Refills(s) 0 Start Date: 05/26/22 Status: Ordered Repeat number: 1take 0.5 tablet by mouth every twenty-four hoursCeleXA 40 MG 0.5 tablet Orally Once a day Activeclindamycin 300 mg oral capsule (2 sources)Lincosamide AntibacterialStart: 85-76-9626Gesbbhcwnfd HCl 300 MG 2 capsules Orally 1 hour before dental procedure for 1 day May, Active cyclobenzaprine hydrochloride 10 mg oral tablet (20 sources)Muscle RelaxantStart: 36-86-4693dfqr 2 tablets by mouth at bedtime as needed for muscle spasmscyclobenzaprine 10 mg Tab 20 mg = 2 tab(s), Oral, Bedtime, PRN for spasm, Refills(s) 0 Start Date: 07/08/25 Status: Ordered Repeat number: 1Start: 21-67-9944ftjeluaclyispzj (Flexeril) 10 MG tablet 07/18/2024 ActiveStart: 93-32-7826narc 0.5-1 tablets by mouth every eight hours Cyclobenzaprine HCl 10 MG 1/2 to 1 tablet Orally Every 8 hours for 14 days Jan, ActiveStart: 08-12-2022 End: 28-60-7816whgw 10-20 mg by mouth once daily at bedtime as needed for pain Cyclobenzaprine 10 mg tablet Discontinued 10 - 20 MG PO Daily at bedtime as needed for Pain 2021 12:00am August 15, 2023 9:37amStart: 52-36-8238plzs 1 tablet by mouth twice daily as neededCyclobenzaprine HCl 10 MG 1 tablet as needed Orally up to twice daily as needed for 30 day(s) Nov, Not-Taking/PRNStart: 02-02-2021 End: 48-50-1488Dvgegnukqllgoek 5 mg Tablet Discontinued 5 MG PO As Directed as needed for Muscle Spasm January 12:00am February 05, 2021 6:50pm fluconazole 100 mg oral tablet (6 sources)Azole AntifungalStart: 67-01-5000bfyolpyplqg 100 mg Tab Refills(s) 0 Start Date: 11/03/23 Status: Ordered Repeat number: 1Start: 10-21-2022 End: 20-56-4450hhuxlwbshqv 200 mg Tab 200 mg = 1 tab(s), Oral, Daily, Discontinue Cipro for ear infection while taking Fluconazole. Can restart Cipro once Fluconazole course is completed., X 14 day(s), # 14 tab(s),Refills(s) 0, Pharmacy: [facility] [id number], 188, , 09/21/22 8:23:0... Start Date: 10/21/22 Stop Date: 11/04/22 Status: Orderedfurosemide 40 mg oral tablet (10 sources)Loop DiureticStart: 85-07-1600bgamnwzhpd 40 mg Tab Refills(s) 0 Start Date: 10/21/22 Status: Orderedgabapentin 600 mg oral tablet (20 sources)Anti-epileptic AgentStart: 46-15-2387rovz 1 tablet by mouth three times dailyStart: 06-14-2022 End: 37-14-1036upoh 1 capsule by mouth twice dailyGabapentin 300 mg capsule Discontinued 300 MG PO Twice daily June 14, 2022 8:26am October 8:50amStart: 11-32-8342clka 600 mg by mouth twice dailyGabapentin Active 600 MG PO Twice daily June 14, 2022 8:26amStart: 35-31-2460cwft 600 mg by mouth twice dailyGabapentin Active 600 MG PO Twice daily June 14, 2022 8:26am Start: 19-93-4610cofb 2 tablets by mouth twice dailygabapentin 600 mg Tab 1,200 mg = 2 tab(s), Oral, BID, Refills(s) 0 Start Date: 05/26/22 Status: Ordered Repeat number: 1Start: 38-33-0164uykb 1 tablet by mouth twice dailygabapentin 600 mg Tab 600 mg = 1 tab(s), Oral, BID, Refills(s) 0 Start Date: 05/26/22 Status: Ordered Repeat number: 1Start: 02-05-2021 End: 89-57-2175xevn 1 capsule by mouth three times dailyGabapentin 300 mg Capsule Discontinued 300 MG PO Three times daily February 12, 2021 12:00am June 14, 2022 8:26amStart: 09-28-2017 End: 31-23-5794ovxu 2 tablets by mouth at bedtimeGabapentin 600 mg Tablet Discontinued 1200 MG PO Bedtime September 28, 2017 1:00am February 05, 2021 5:19pmStart: 09-28-2017 End: 15-89-5321vmts 1200 mg by mouth at bedtimeGabapentin Discontinued 1200 MG PO Bedtime September 28, 2017 12:00am February 05, 2021 4:19pmhyoscyamine sulfate 0.125 mg oral tablet (8 sources)Start: 56-52-5135kdgy 1 tablet by mouth four times daily as needed for painLevsin 0.125 mg SL Tab 0.125 mg = 1 tab(s), Oral, QID, PRN abdominal pain, # 90 tab(s), Refills(s) 2, Pharmacy: [facility] [id number], 188, cm, 12/21/22 7:44:00 EST, Height/Length Dosing, 132, kg,12/21/22 7:44:00 EST, Weight Dosing Start Date: 12/21/22 Status: OrderedStart: 84-90-1639jzsk 1 tablet by mouth four times daily as needed for painLevsin 0.125 mg SL Tab 0.125 mg = 1 tab(s), Oral, QID, PRN abdominal pain, Refills(s) 0 Start Date:10/05/22 Status: Ordered ibuprofen 800 mg oral tablet (5 sources)Nonsteroidal Anti-inflammatory DrugStart: 62-79-5091xznp 1 tablet by mouth three times daily at mealtime as neededIbuprofen 800 MG 1 tablet with food or milk as needed Orally Three times a day for 30 days Apr, Active irbesartan 300 mg oral tablet (20 sources)Angiotensin 2 Receptor BlockerStart: 02-02-2021 End: 28-76-0972nuog 1 tablet by mouth once dailyirbesartan 300 mg Tab 300 mg = 1 tab(s), Oral, Daily, Refills(s) 0 Start Date: 05/26/22 Status: Ordered Repeat number: 1Iron Chews (12 sources)Start: 67-01-6430btdp 1 mg by mouth once dailyIron Chews mg, Oral, Daily, Refills(s) 0 Start Date: 09/21/22 Status: OrderedlevoFLOXacin 500 mg oral tablet (5 sources)Quinolone AntimicrobialStart: 09-26-2023 End: 76-04-6748vbyo 1 tablet by mouth every twenty-four hoursLevaquin 500 mg Tab 500 mg = 1 tab(s), Oral, q24hr, X 3 day(s), # 3 tab(s), Refills(s) 0, Pharmacy: [facility] [id number], 187, cm, 09/26/23 7:40:00 EST, Height/Length Dosing, 138.9, kg, 09/26/23 7:40:00 EST, Weight Dosing Start Date: 09/26/23 Stop Date: 09/29/23 Status: OrderedStart: 11-04-2022 End: 03-07-3291ncmi 1 tablet by mouth once dailyLevaquin 500 mg Tab 500 mg = 1 tab(s), Oral, Daily, X 14 day(s), # 14 tab(s), Refills(s) 0, Pharmacy: [facility] [id number], 188, cm, 11/04/22 9:22:00 EST, Height/Length Dosing, 132, kg, 11/04/22 9:22:00 EST, Weight Dosing Start Date: 11/04/22 Stop Date: 11/18/22 Status: OrderedlevoFLOXacin 750 MG (Prior Auth#:[id number]) Oral for 10 Active lidocaine 0.05 mg/mg medicated patch (6 sources)Antiarrhythmic, Amide Local AnestheticStart: 49-37-3279ouwjfitjq Top 5% film Patch 1 patch(es), Topical, Daily, 7 patch(es), Refill(s) 3, apply 12 hours on and 12 hours off daily, [id number], 188, cm, 11/04/22 9:22:00 EST, Height/Length Dosing, 132, kg, 11/04/22 9:22:00 EST, Weight Dosing Start Date: 11/18/22 Status: OrderedStart: 10-21-2022 End: 36-99-0982iyfbdxsyn Top 5% film Patch 1 patch(es), Topical, Daily for 7 day(s), 7 patch(es), Refill(s) 0, Apply to affected area for up to 12 hours a day., [facility] [id number], 188, cm, 09/21/22 8:23:00 EST, Height/Length Dosing, 132, kg, 09/21/22 8:23:00 EST, Weight Dosing Start Date: 10/21/22 Stop Date:10/28/22 Status: OrderedmethylPREDNISolone (20 sources)CorticosteroidStart: 53-22-1438bjkojsIKKIQKEvyotn (Medrol Dospak) 4 MG tablets Indications: Plantar fasciitis Follow schedule on MEDROL PACK package instructions to be used as directed 21 tablet 09/27/2024 ActiveStart: 04-29-2024 take 1 tablet by mouth onceStart: 22-12-2388Cdcwxh 4 MG as directed Orally Oct, ActiveStart: 92-35-8684Cwdjyp 4 MG as directed Orally for 6 days Apr, ActivemetroNIDAZOLE 7.5 mg/ml topical cream (1 source)Nitroimidazole AntimicrobialStart: 82-72-4358orbykQAODZQSY (Metrocream) 0.75 % cream Indications: Other rosacea Apply thin layer to face, once daily, 30 day supply 45 g 11 01/02/2025 ActiveStart: 01-02-2025 metroNIDAZOLE (Metrocream) 0.75 % cream Indications: Other rosacea Apply thin layer to face, once daily, 30 day supply 45 g 11 01/02/2025 Activenaproxen 500 mg oral tablet (20 sources)Nonsteroidal Anti-inflammatory DrugStart: 78-91-8070oano 1 tablet by mouth every twelve hours at mealtime as neededStart: 34-39-5726qbpl 1 tablet by mouth every twelve hours at mealtime as neededNaproxen 500 MG 1 tablet with food or milk as needed Orally every 12 hrs for 30 days Oct, ActiveStart: 07-13-2023 End: 56-48-3678lksy 1 tablet by mouth twice daily at mealtimenaproxen 500 mg Tab 500 mg = 1 tab(s), Oral, BID, Take with food, X 2 week(s), # 28 tab(s), Refills( s) 0, Pharmacy: [facility] [id number], 188, cm, 07/13/23 9:45:00 EDT, Height/Length Dosing, 132,kg, 07/13/23 9:45:00 EDT, Weight Dosing Start Date: 07/13/23 Stop Date: 07/27/23 Status: Orderedoxybutynin chloride 5 mg oral tablet (20 sources)Cholinergic Muscarinic AntagonistStart: 85-45-2696bptv 1 tablet by mouth three times dailyoxybutynin 5 mg Tab 5 mg = 1 tab(s), Oral, TID, # 30 tab(s), Refills(s) 0, Pharmacy: [facility] [id number], 187, cm, 09/26/23 7:40:00 EST, Height/Length Dosing, 138.9, kg, 09/26/23 7:40:00 EST, Weight Dosing Start Date: 09/26/23 Status: OrderedStart: 11-29-2022 End: 75-70-8006mycf 1 tablet by mouth twice daily as needed for muscle spasms Oxybutynin Chloride 5 mg tablet Discontinued 5 MG PO Twice daily as needed for bladder spasms November 29, 2022 1:00am August 15, 2023 9:37amStart: 09-30-2022 End: 43-90-9615qesg 1 tablet by mouth three times daily as needed for muscle spasmsOxybutynin Chloride 5 mg tablet Discontinued 5 MG PO Three times daily as needed for bladder [id number] September 30, 2022 1:00am November 29, 2022 10:11ampotassium citrate 10 meq extended release oral tablet (8 sources)Start: 54-88-2570gvdh 1 tablet by mouth twice dailypotassium CITRATE 10 mEq ER Tab 10 mEq, 1 tab(s), Oral, BID, 180 tab(s), Refill(s) 3, [facility] [id number], 188, cm, 05/09/24 10:10:00 EDT, Height/Length Dosing, 144, kg, 05/09/24 10:10:00 EDT, Weight Dosing Start Date: 09/26/24 Status: Ordered Quantity: 180.0 Unit: tab(s) Repeat number: 4Start: 94-46-9940oxkx 1 tablet by mouth twice dailypotassium CITRATE 10 mEq ER Tab 10 mEq, 1 tab(s), Oral, BID, 180 tab(s), Refill(s) 3, [facility] [id number], 188, cm, 08/18/23 10:17:00 EDT, Height/Length Dosing, 132, kg, 08/18/23 10:17:00 EDT, Weight Dosing Start Date: 08/18/23 Status: OrderedStart: 03-69-3728wljk 1 tablet by mouth twice daily potassium CITRATE 10 mEq ER Tab 10 mEq, 1 tab(s), Oral, BID, 90 tab(s), Refill(s) 0, [facility] [id number], 188, cm, 05/31/23 8:37:00 EDT, Height/Length Dosing, 132, kg, 05/31/23 8:37:00 EDT, Weight Dosing Start Date: 05/31/23 Status: OrderedQUEtiapine 50 mg oral tablet (1 source)Atypical AntipsychoticStart: 61-60-4034gwdumhbrkr 50 mg oral tablet Refills(s) 0 Start Date: 08/18/23 Status: Orderedsulfamethoxazole 800 mg / trimethoprim 160 mg oral tablet (1 source)Dihydrofolate Reductase Inhibitor Antibacterial, Sulfonamide AntimicrobialStart: 07-13-2023 End: 95-95-5679xqit 1 tablet by mouth twice dailyBactrim D.S. 800 mg-160 mg Tab 1 tab(s), Oral, BID for 4 week(s), 56 tab(s), Refill(s) 0, [facility] [id number], 188, cm, 07/13/23 9:45:00 EDT, Height/Length Dosing, 132, kg, 07/13/23 9:45:00 EDT,Weight Dosing Start Date: 07/13/23 Stop Date: 08/10/23 Status: Orderedtemazepam 15 mg oral capsule (20 sources)BenzodiazepineStart: 80-11-9914jiyc 1 capsule by mouth once daily at bedtimetemazepam 15 mg Cap 15 mg = 1 cap(s), Oral, Once a day (at bedtime), Refills(s) 0 Start Date: 07/08/25 Status: Ordered Repeat number: 1Start: 05-26-2022 End: 77-57-2750booOGTzn hydrochloride 50 mg oral tablet (20 sources)Opioid AgonistStart: 65-97-3475pohJMVAP 50 mg Tab 50 mg = 1 tab(s), Oral, q8hr, PRN as needed for pain, Take as needed to help with severe pain during stone passage. Not to exceed 400 mg/day., # 9 tab(s), Refills(s) 0, Pharmacy: [facility] [id number], 188, cm, 05/09/25 11:09:00 EDT, Height/Length Dosing, 137.9, kg, 05/09/25 11:09:00 EDT, Weight Dosing Start Date: 05/09/25 Status: Ordered Quantity: 9.0 Unit: tab(s) Repeat number: 1Start: 08-26-2024 End: 73-10-4093qaty 1 tablet by mouth every six hours for paintraMADol (Ultram) 50 MG tablet Indications: Paronychia, toe, left , Paronychia, toe, right Take 1 tablet (50 mg) by mouth every 6 (six) hours if needed for severe pain for up to 5 days 15 tablet 08/26/2024 08/31/2024 ExpiredStart: 02-28-2023 End: 53-35-4585rpmw 1 tablet by mouth every eight hours for paintraMADol (Ultram) 50 MG tablet Indications: Peroneal tendinitis, right Take 1 tablet (50 mg) by mouth every 8 (eight) hours if needed for severe pain for up to 5 days 15 tablet 09/27/2024 10/02/2024 ActiveStart: 02-28-2023 End: 40-28-4082cbey 1 tablet by mouth every four hours as needed for pain Tramadol 50 mg tablet Discontinued 50 MG PO Q4H as needed for pain 14 August 29, 2023 1:00am October 30, 2023 8:51amStart: 02-07-2023 End: 19-31-2628dzvg 1 tablet by mouth twice daily as needed for painTramadol 50 mg tablet Discontinued 50 MG PO Twice daily as needed for pain 60 February 02, 2024 8:11am May 20, 2024 9:05amStart: 07-26-2022 End: 34-70-9582Gqcmgiwc 50 mg tablet Discontinued 50 MG PO As Directed as needed for Pain July 26, 2022 12:00am November 29, 2022 10:12amStart: 07-26-2022 End: 17-73-6079Oelrgigg Discontinued 50 MG PO As Directed July 25, 2022 11:00pm November 29, 2022 9:12amStart: 07-26-2022 End: 80-57-2896thji 1 tablet by mouth every twenty-four hourstraMADol HCl 50 MG 1 tablet as needed Orally Once a day for 30 days Jul, Not-Taking/PRN Start: 32-83-4353ejke 1 tablet by mouth every twenty-four hourstraMADol HCl 50 MG 1 tablet as needed Orally Once a day for 30 days Jun, ActiveStart: 76-93-7537emfc 1 tablet by mouth every twenty-four hourstraMADol HCl 50 MG 1 tablet as needed Orally Once a day February, Not-TakingStart: 02-12-2021 End: 37-92-5577vwbc 1 tablet by mouth every four hours as needed for pain Tramadol 50 mg Tablet Discontinued 50 MG PO Q4H as needed for severe pain (scale score 7-10) 40 7 February 12, 2021 12:00am June 14, 2022 8:26amStart: 02-05-2021 End: 08-85-2592okyh 2 tablets by mouth every six hours as needed for pain Tramadol 50 mg Tablet Discontinued 100 MG PO Q6H as needed for Pain February 05, 2021 12:00am February 12, 2021 8:59amStart: 02-05-2021 End: 20-44-9821rccc 100 mg by mouth every six hoursTramadol Discontinued 100 MG PO Q6H February 04, 2021 11:00pm February 12, 2021 7:59am Completed/Discontinued Medications MedicationDrug Class(es)DatesSig (Normalized)Sig (Original)acetaminophen 325 mg / HYDROcodone bitartrate 5 mg oral tablet (20 sources)Opioid AgonistStart: 10-30-2023 End: 53-67-9963zoso 1 tablet by mouth every four to six hours as needed for pain Hydrocodone-Acetaminophen 5-325 mg tablet Discontinued 1 - 2 TAB PO EVERY 4-6 HOURS as needed for pain 30 October 30, 2023 December 04, 2023 9:43am Start: 09-26-2023 End: 40-65-0703ghex 1 tablet by mouth every six hours for painNorco 325 mg-5 mg oral tablet 1 tab(s), Oral, q6hr for pain for 3 day(s), 12 tab(s), Refill(s) 0, [facility] [id number], 187, cm, 09/26/23 7:40:00 EST, Height/Length Dosing, 138.9, kg, 09/26/23 7:40:00 EST, Weight Dosing Start Date: 09/26/23 Stop Date: 09/29/23 Status: OrderedStart: 04-25-2023 End: 62-10-9651pwfn 1 tablet by mouth every four hours as needed for pain Hydrocodone-Acetaminophen 5-325 mg tablet Discontinued 1 TAB PO Q4H as needed for pain 10 April 25, 2023 August 15, 2023 9:37amStart: 97-19-5311jmts 1 tablet by mouth three times daily as neededHYDROcodone-Acetaminophen 5-325 MG 1 tablet as needed Orally up to three times daily as needed for 7 days Nov, Not-Taking/PRNStart: 58-01-7746dzzwmozvdbull-hydrocodone 325 mg-5 mg oral tablet Refill(s) 0 Start Date: 10/21/22 Status: OrderedStart: 09-30-2022 End: 01-20-7460fpky 1 tablet by mouth every six hours as needed for pain Hydrocodone-Acetaminophen 5-325 mg tablet Discontinued 1 TAB PO Q6H as needed for severe pain 09 17January 30, 2023 February 28, 2023 9:03amStart: 01-12-2018 End: 01-80-2911kzlh 1 tablet by mouth every four hours as needed for pain Hydrocodone-Acetaminophen ([place]) 5-325 mg tablet Discontinued 1 TAB PO Q4H as needed for pain January 12, 2018 November 24, 2020 11:16am 1 or 2 p.o. q 4 hours prn painStart: 09-28-2017 End: 49-08-4694dexq 1 tablet by mouth every four to six hours as needed for pain Hydrocodone-Acetaminophen ([place]) 5-325 mg tablet Discontinued 1 TAB PO EVERY 4- 6 HOURS as needed for pain September 28, 2017 November 24, 2020 11:15am ARIPiprazole 5 mg oral tablet (20 sources)Atypical AntipsychoticStart: 09-28-2017 End: 70-23-4732bpmw 1 tablet by mouth at bedtimeAripiprazole (Abilify) 5 mg Tablet Discontinued 5 MG PO Bedtime September 28, 2017 1:00am 2020 11:11amaspirin 81 mg delayed release oral tablet (20 sources)Platelet Aggregation Inhibitor, Nonsteroidal Anti-inflammatory Drug Start: 08-12-2022 End: 37-57-3800bxvw 1 tablet by mouth once daily at bedtimeAspirin 81 mg tablet,delayed release (DR/EC) Discontinued 81 MG PO Daily at bedtime August 12, 2022 1:38pm November 29, 2022 10:09amStart: 11-75-6563ryrikfa 81 mg Chew Tab 81 mg = 1 tab(s), Chewed, Daily, Refills(s) 0 Start Date: 03/04/21 Status: OrderedStart: 19-49-0746exrgnym 81 mg Chew Tab Refills(s) 0 Start Date: 03/04/21 Status: OrderedStart: 02-05-2021 End: 48-26-2921qjbo 1 tablet by mouth twice dailyAspirin 81 mg Tablet,Delayed Release (Dr/Ec) Discontinued 81 MG PO Twice daily 40 February 12, 2021 8:58am August 12, 2022 1:40pmbaclofen 20 mg oral tablet (20 sources)gamma-Aminobutyric Acid-ergic AgonistStart: 02-12-2021 End: 70-18-0839bcar 1 tablet by mouth once daily in the morningBaclofen 20 mg Tablet Discontinued 20 MG PO Every morning 30 February 12, 2021 12:00am June 14, 2022 8:25amStart: 11-24-2020 End: 91-91-2492uclw 2 tablets by mouth once daily at bedtimeBaclofen 20 mg Tablet Discontinued 40 MG PO Daily at bedtime 60 February 12, 2021 12:00am June 14, 2022 8:26amStart: 11-24-2020 End: 21-65-1666hsrs 40 mg by mouth once daily at bedtimeBaclofen Discontinued 40 MG PO Daily at bedtime 60 February 11, 2021 11:00pm June 14, 2022 7:26am Start: 09-28-2017 End: 92-73-9670cnbr 2 tablets by mouth once daily in the morningBaclofen 10 mg Tablet Discontinued 20 MG PO Every morning September 28, 2017 1:00am February 12, 2021 8:59amStart: 09-28-2017 End: 20-47-1822kqdv 20 mg by mouth once daily in the morningBaclofen Discontinued 20 MG PO Every morning September 28, 2017 12:00am February 12, 2021 7:59amciprofloxacin 500 mg oral tablet (20 sources)Quinolone AntimicrobialStart: 11-02-2022 End: 02-15-8013fdox 1 tablet by mouth twice dailyCiprofloxacin Hcl (Cipro) 500 mg tablet Discontinued 500 MG PO Twice daily November 02, 2022 1:00am November 29, 2022 10:10amdiclofenac potassium 50 mg oral tablet (20 sources)Nonsteroidal Anti-inflammatory DrugStart: 09-28-2017 End: 30-70-6649Sauatoepiq Potassium 50 mg Tablet Discontinued September 28, 2017 1:00am January 12, 2018 8:02amStart: 09-28-2017 End: 75-58-0671Opzkdgpkxw Potassium 50 mg Tablet Discontinued TABLET September 28, 2017 1:00am January 12, 2018 8:02amStart: 09-28-2017 End: 15-19-3586Qbxepxlzqq Potassium Discontinued TABLET September 28, 2017 12:00am January 12, 2018 7:02amVoltaren 1 % apply 1-2 grams to affected area Externally BID Activedocusate sodium 100 mg oral capsule (20 sources)Start: 01-28-2021 End: 63-66-4318zuhn 1 capsule by mouth twice daily as needed for constipation Docusate Sodium (Dok) 100 mg Capsule Discontinued 100 MG PO Twice daily as needed for Constipation 60 February 12, 2021 12:00am June 14, 2022 8:26am doxycycline hyclate 100 mg oral tablet (18 sources)Tetracycline-class DrugStart: 10-30-2023 End: 30-65-0964hhab 1 tablet by mouth twice dailyDoxycycline Hyclate 100 mg tablet Discontinued 100 MG PO Twice daily 10 October 30, 2023 1:00amFebruary 2023 3:55pmlisinopril 20 mg oral tablet (20 sources)Angiotensin Converting Enzyme InhibitorStart: 09-28-2017 End: 08-56-3948gqyk 2 tablets by mouth once dailyLisinopril 20 mg Tablet Discontinued 40 MG PO Daily September 28, 2017 1:00am February 03, 2021 9:28am Start: 09-28-2017 End: 46-27-4105kazj 40 mg by mouth once dailyLisinopril Discontinued 40 MG PO Daily September 28, 2017 12:00am February 03, 2021 8:28amtake 1 tablet by mouth every twenty-four hoursLisinopril 40 MG 1 tablet Orally Once a day Active meloxicam 15 mg oral tablet (20 sources)Nonsteroidal Anti-inflammatory DrugStart: 02-02-2021 End: 59-23-7495ezsq 1 tablet by mouth once dailyMeloxicam 15 mg Tablet Discontinued 15 MG PO Daily February 02, 2021 12:00am February 05, 2021 5:19pm Multivitamin preparation (20 sources)Start: 11-24-2020 End: 26-00-3946wbpn 2 tablets by mouth once daily in the morningMultivitamin Discontinued 2 TAB PO Every morning November 24, 2020 12:00am February 12, 2021 7:59amStart: 11-24-2020 End: 13-42-7102poez 2 tablets by mouth once daily in the morningMultivitamin Discontinued 2 TAB PO Every morning November 24, 2020 1:00am February 12, 2021 8:59amMultivitamin Tablet (3 sources)Start: 11-24-2020 End: 55-06-5009nkub 2 tablets by mouth once daily in the morningMultivitamin Tablet Discontinued 2 TAB PO Every morning November 24, 2020 1:00am February 12, 2021 8:59amStart: 11-24-2020 End: 11-26-3699crur 2 tablets by mouth once daily in the morningMultivitamin Tablet Discontinued 2 TAB PO Every morning November 24, 2020 12:00am February 1217:59amMultivitamin With Folic Acid (Thera) 400 mcg Tablet (20 sources)Start: 02-12-2021 End: 14-47-5900istz 2 tablets by mouth once daily in the morningMultivitamin With Folic Acid (Thera) 400 mcg Tablet Discontinued 2 TAB PO Every morning 60 2020 12:00am November 29, 2022 10:11amStart: 02-12-2021 End: 31-21-1470cpnw 2 tablets by mouth once daily in the morningMultivitamin With Folic Acid (Thera) 400 mcg Tablet Discontinued 2 TAB PO Every morning 60 2020 11:00pm November 29, 2022 9:11amStart: 74-43-0095wimo 2 tablets by mouth once daily in the morningMultivitamin With Folic Acid (Thera) 400 mcg Tablet Active 2 TAB PO Every morning 60 January 11:00pmStart: 85-75-3270mzla 2 tablets by mouth once daily in the morningMultivitamin With Folic Acid (Thera) 400 mcg Tablet Active 2 TAB PO Every morning 60 January 12:00amnabumetone 500 mg oral tablet (20 sources)Nonsteroidal Anti-inflammatory DrugStart: 11-24-2020 End: 94-96-4506lzqh 1 tablet by mouth twice dailyNabumetone 500 mg Tablet Discontinued 1000 MG PO Twice daily November 24, 2020 1:00am February 02, 2021 7:53amStart: 11-24-2020 End: 89-01-3416hjzm 1000 mg by mouth twice dailyNabumetone Discontinued 1000 MG PO Twice daily November 24, 2020 12:00am February 02, 2021 6:53amphentermine hydrochloride 37.5 mg oral tablet (20 sources)Sympathomimetic Amine AnorecticStart: 02-02-2021 End: 93-55-2031rxcg 1 tablet by mouth once daily in the morningPhentermine (Adipex-P) 37.5 mg Tablet Discontinued 37.5 MG PO Every morning February 02, 2021 12:00am February 05, 2021 5:19pmpolysaccharide iron complex 150 mg oral capsule (20 sources)Start: 02-12-2021 End: 07-12-4026Flhseimvfhxpon Iron Complex (Ferrex 150) 150 mg iron Capsule Discontinued 150 MG PO Every morning February 12, 2021 12:00am June 14, 2022 8:26ampredniSONE 50 mg oral tablet (20 sources)Start: 01-30-2023 End: 82-79-8964tkqa 1 tablet by mouth once daily at mealtimePrednisone 50 mg tablet Discontinued 50 MG PO Daily 5 January 30, 2023 12:00am February 28, 2023 9:03am administer with food or milktadalafil 20 mg oral tablet (20 sources)Phosphodiesterase 5 InhibitorStart: 03-90-7649Mnnqau 20 mg Tab 20 mg = 1 tab(s), Oral, As Directed, Take half tab one to two hours prior to sexual activity. Do NOT exceed 20 mg (1 full tab) in 24 hours., # 30 tab(s), Refills(s) 3, Pharmacy: [facility] [id number], 188, cm, 11/08/24 10:58:00 EST, Height/Length Dosing, 144, kg, 11/08/24 10:58:00 EST, Weight Dosing Start Date: 11/08/24 Status: Ordered Quantity: 30.0 Unit: tab(s) Repeat number:4Start: 31-23-7101hkyaomvuy (Cialis) 20 MG tablet Take 20 mg by mouth 05/09/2024 Active Start: 55-98-6678Vyvbwm 20 mg Tab 20 mg = 1 tab(s), Oral, As Directed, Take one tab by mouth one to two hours prior to sexual activity. Do NOT exceed 20 mg (1 tab) in 24 hours., # 30 tab(s), Refills(s) 3, Pharmacy: [facility] [id number], 188, cm, 05/09/24 10:10:00 EDT, Height/Length Dosing, 144, kg, 05/09/24 10:10:00 EDT, Weight Dosing Start Date: 05/09/24 Status: OrderedStart: 06-68-1112elyp 1 tablet by mouth every hour as needed, then take 2 tablets by mouth every twenty-four hours as neededCialis 10 mg Tab 10 mg = 1 tab(s), Oral, As Directed, PRN for erectile dysfunction, Take one hour prior to sexual intercourse. Do not exceed 20mg within 24 hrs., # 30 tab(s), Refills(s) 0, Pharmacy: [facility] [id number], 188, cm, 05/31/23 8:37:00 EDT, Height/Length Dosing, 132, kg, 05/31/23 8:37:00 EDT, Weight Dosing Start Date: 05/31/23 Status: OrderedStart: 20-33-9049pted 1 tablet by mouth every twenty-four hoursCialis 5 MG 1 tablet as needed Orally Once a day for 30 day(s) Nov, ActiveStart: 09-21-2022 End: 51-83-9992rymh 1 tablet by mouth once daily in the morningTadalafil (Cialis) 10 mg Tablet Discontinued 5 MG PO Every morning September 30, 2022 1:00am October 30, 2023 8:49amStart: 27-51-8824jivz 1 mg by mouth once daily Cialis 20 mg Tab mg tab(s), Oral, Daily, Refills(s) 0 Start Date: 06/22/22 Status: Orderedtamsulosin hydrochloride 0.4 mg oral capsule (20 sources)alpha-Adrenergic BlockerStart: 08-23-2022 End: 63-39-4070sajg 1 capsule by mouth once daily at bedtimeTamsulosin 0.4 mg capsule Discontinued 0.4 MG PO Daily at bedtime September 30, 2022 1:00am November 29, 2022 10:11amStart: 02-05-2021 End: 96-87-5761hovt 1 capsule by mouth once daily in the morningTamsulosin 0.4 mg Capsule Discontinued 0.4 MG PO Every morning February 12, 2021 12:00am June 14, 2022 8:26amtriamcinolone acetonide 40 mg/ml injectable suspension (20 sources)CorticosteroidStart: 62-72-8605Bskbuwf-40 Sep, 40 mgStart: 01-92-3570Ttecevk -40 mg February, 40 mgWalker - (5 sources)Start: 94-44-0278Qnbdzo - as directed Nov, Not-Taking Problems Active Problems Problem ClassificationProblemDateDocumented DateEpisodic/ChronicAbdominal pain (2 sources)Unspecified abdominal painEpisodicAcute and unspecified renal failure (20 sources)Injury of kidney; Translations: [Acute kidney failure, unspecified] 53-41-9109YpjnqwadYsbqs posthemorrhagic anemia (20 sources)Anemia following acute postoperative blood loss; Translations: [Acute posthemorrhagic anemia]93-80-3002CqkhzvpyDtpxoeegvwexta/social admission (20 sources)Other reduced mobility; Translations: [Impaired mobility and activities of daily living]21-01-6987GzdtyktnDfcjmla disorders (16 sources)Uvbuujg30-80-8236RmihvpjDqxbqhbp of urinary tract (20 sources)Kidney stone; Translations: [Calculus of kidney]Onset: 06-22-2022 EpisodicComplications of surgical procedures or medical care (20 sources)Postoperative retention of urine; Translations: [Other postprocedural complications and disorders of genitourinary system]02-04-2021 EpisodicCongestive heart failure; nonhypertensive (1 source)Unspecified diastolic (congestive) heart failure; Translations: [UNSPECIFIED DIASTOLIC HEART FAILURE]Onset: 13-57-7776LazcrukUfnqrypt injury or internal injury (5 sources)Contusion of kidney; Translations: [Minor contusion of unspecified kidney, initial encounter]Onset: 52-85-5429PkugamtvNgxqcngx of white blood cells (20 sources)Leukocytosis; Translations: [Elevated white blood cell count, unspecified]89-97-3625FfjgknfWwjhjzoqn hypertension (17 sources)Hypertensive disorder; Translations: [Essential (primary) hypertension]Onset: 581544-60-5736JejsaebIqpvlbvwsoboc symptoms and ill- defined conditions (20 sources)Blood in urine; Translations: [Gross hematuria]Onset: 06-08-2022 EpisodicHyperplasia of prostate (20 sources)Benign prostatic hypertrophy with outflow obstruction; Translations: [Benign prostatic hyperplasia with lower urinary tract symptoms]Onset: 01-88-0754TcieinmYbcjxaulvveu with complications and secondary hypertension (4 sources)Hypertensive heart disease with heart failure; Translations: [HTN HEART DISEASE W/HEART FAIL]Onset: 50-73-5349JmszvkkEmccpdwkgvqk conditions of male genital organs (6 sources)Prostatitis; Translations: [Inflammatory disease of prostate, unspecified]Onset: 82-74-8490TplvsduuZycbe disorders and dislocations; trauma-related (20 sources)Tear of medial meniscus of knee; Translations: [Other tear of medial meniscus, current injury, leftknee, initial encounter]EpisodicLymphadenitis (2 sources)Lymphadenopathy; Translations: [Enlarged lymph nodes, unspecified] Onset: 46-63-2562DmtuuhifMcih disorders (20 sources)Depressive disorder; Translations: [Chronic depression]03-04-2021 ChronicMycoses (4 sources)Pain in toe; Translations: [Tinea unguium]96-98-0158BxicifcrOpdh wounds of extremities (20 sources)Laceration of finger; Translations: [Laceration without foreign body of unspecified finger without damage to nail, initial encounter]2023 EpisodicOpen wounds of head; neck; and trunk (20 sources)Laceration - injury; Translations: [Laceration]63-77-9921Iviokcpl Osteoarthritis (20 sources)Osteoarthritis of right knee joint; Translations: [Unilateral primary osteoarthritis, right knee]Onset: 02-02-2022 Resolved: 47-88-9873CubhuupFwgvl acquired deformities (4 sources)Contracture of joint of right ankle; Translations: [Contracture, right ankle]66-13-7547BdhxawwNwrsm aftercare (1 source)termite helper (current) use of aspirin; Translations: [COIN TELLER CURRENT USE OF ASPIRIN]Onset: 72-99-2407KccxqksjIvcam aftercare (1 source)Other terminal operator (current) drug therapy; Translations: [OTH COIN TELLER CURRENT DRUG THERAPY]Onset: 59-38-4729TrobjvzhNglmx aftercare (2 sources)Encounter for removal of suturesEpisodicOther and unspecified benign neoplasm (1 source)Melanocytic nevus of trunk; Translations: [Melanocytic nevi of trunk] 48-68-1956RkaqqlseSuquo circulatory disease (16 sources)Vascular smzpoarrmnxmz69-92-8491TthxugzrYsrfp circulatory disease (1 source)Spider nevus; Translations: [Nevus, non-neoplastic]02-36-0327Kmbvgfeh Other congenital anomalies (20 sources)Congenital hip dysplasia; Translations: [Other specified congenital deformities of hip]ChronicOther congenital anomalies (4 sources)Other specified congenital deformities of hipOnset: 02-02-2022 Resolved: 76-73-9344LoepbqfPoqfv connective tissue disease (20 sources)History of total knee arthroplasty; Translations: [Presence of artificial knee joint, bilateral]65-39-6879LiswagdLzrct connective tissue disease (4 sources)Presence of artificial knee joint, bilateralOnset: 02-02-2022 Resolved: 87-92-6682OzdqatyLusql connective tissue disease (13 sources)Presence of unspecified artificial knee joint; Translations: [Knee joint replacement]68-19-3486CwovoquFzakm connective tissue disease (1 source)Arthrodesis statusEpisodicOther connective tissue disease (18 sources)Mhkvhbcs42-16-8817TmrlgdwtIskzy connective tissue disease (15 sources)Impingement syndrome of shoulder zsczva84-85-7353MyitfloyMgero connective tissue disease (6 sources)Lateral epicondylitis, left elbow; Translations: [Lateral epicondylitis]EpisodicOther connective tissue disease (17 sources)Lateral epicondylitis of left humerus; Translations: [Lateral epicondylitis, left elbow]19-44-5479EtvugbjiEayhm connective tissue disease (15 sources)Hand pain; Translations: [Pain in right hand]17-99-0995DgsxenhpOtcyc connective tissue disease (18 sources)Triggering of digit; Translations: [Trigger finger, right middle finger]92-75-4577YjsagfwmFaicb connective tissue disease (4 sources)Pain in right hand; Translations: [Pain in limb]56-48-1555Jwbqlxek Other connective tissue disease (11 sources)Trigger finger, right middle finger; Translations: [Trigger finger (acquired)]89-74-6629VjnhwyiqKjlbz connective tissue disease (9 sources)Tendinitis of left quadriceps tendon; Translations: [Other specified enthesopathies of left lower limb, excluding foot]90-20-5646PuxkuvapVeqsm connective tissue disease (9 sources)Tendinitis of right quadriceps tendon; Translations: [Other specified enthesopathies of right lowerlimb, excluding foot]13-45-6654KyayvpopBjpcu connective tissue disease (8 sources)Other specified enthesopathies of left lower limb, excluding foot; Translations: [Other synovitis and tenosynovitis]73-83-9800YcamucmwNjmtw connective tissue disease (10 sources)Plantar fasciitis; Translations: [Plantar fascial fibromatosis] 56-82-4410WdapyqvsEetpe connective tissue disease (6 sources)Peroneal tendinitis of right lower limb; Translations: [Peroneal tendinitis, right leg]84-89-7430OnyfzobhBtmju connective tissue disease (1 source)Trigger finger, left middle finger; Translations: [Trigger finger (acquired)]45-21-7598KariggajOpdvk connective tissue disease (1 source)Pain in right hand; Translations: [Pain in right hand]12-06-2023 EpisodicOther diseases of bladder and urethra (4 sources)Disorder of bladder; Translations: [Bladder disorder, unspecified] Onset: 45-33-5778TjremloAgszv diseases of bladder and urethra (8 sources)Lesion of -63-0754MomhrbqEjrks diseases of kidney and ureters (8 sources)Hematoma of unwpgd50-77-3965MvkjusiOxhrl diseases of kidney and ureters (1 source)Other specified disorders of kidney and ureter; Translations: [OTHER SPEC DISORDERS KIDNEY URETER]Onset: 88-02-7879EtrojhpOfsgh diseases of kidney and ureters (2 sources)Acquired renal cyst without neoplastic change; Translations: [Cyst of kidney, acquired]Onset: 60-96-9252YfitjtcvPadmu diseases of kidney and ureters (20 sources)Cyst of nwnuvu23-08-4765KonejpopXhqra diseases of kidney and ureters (1 source)Urinary tract obstruction; Translations: [Other obstructive and reflux uropathy]Onset: 25-50-6622JijhjdciYxxvb inflammatory condition of skin (1 source)Rosacea; Translations: [Other rosacea]08-17-2398TtthndrSxgfo injuries and conditions due to external causes (20 sources)Contusion; Translations: [Other injury of unspecified body region, initial encounter]28-05-5040NlspvfabPrqoq injuries and conditions due to external causes (1 source)Traumatic AND/OR non-traumatic injury; Translations: [Other injury of unspecified body region, initial encounter]Onset: 03-13-4980HzqwufyeEyezo male genital disorders (20 sources)Male erectile dysfunction, unspecified; Translations: [Erectile dysfunction]Onset: 08-58-7007AtlootzCdbeh male genital disorders (2 sources)H/O: male genital disorder; Translations: [Personal history of other diseases of male genital organs]Onset: 74-34-4276DdgyyuolHynux male genital disorders (5 sources)History of lydqzluowfl59-61-7762NtnaffbjDftwf nervous system disorders (20 sources)Chronic pain; Translations: [Other chronic pain]57-36-2349Lpzungd Other nervous system disorders (15 sources)Other chronic pain; Translations: [Other chronic pain]Onset: 06-27-2022 Resolved: 70-09-4908LbjkwabZvwuj nervous system disorders (20 sources)Bilateral carpal tunnel syndrome; Translations: [Carpal tunnel syndrome, bilateral upper limbs]86-13-8725IylrpcyKrhsj nervous system disorders (20 sources)Carpal tunnel syndrome of right wrist; Translations: [Carpal tunnel syndrome, right upper limb]51-26-0736NfmhptgKjkol nervous system disorders (20 sources)Carpal tunnel syndrome of left wrist; Translations: [Carpal tunnel syndrome, left upper limb]92-90-0839UziooqwVwfhr nervous system disorders (7 sources)Carpal tunnel syndrome, left upper limb; Translations: [Carpal tunnel syndrome]ChronicOther nervous system disorders (3 sources)Carpal tunnel syndrome, right upper limbChronicOther nervous system disorders (20 sources)Carpal tunnel syndrome; Translations: [Carpal tunnel syndrome, left upper limb]81-96-4345PvfuddoBlssy nervous system disorders (10 sources)Lesion of ulnar nerve, left upper limb; Translations: [Cubital tunnel syndrome, left]ChronicOther nervous system disorders (20 sources)Ulnar nerve entrapment at elbow; Translations: [Lesion of ulnar nerve, unspecified upper limb]56-78-5771HhljtlaYbejs nervous system disorders (5 sources)Lesion of ulnar nerve, unspecified upper limb; Translations: [Lesion of ulnar nerve]69-09-2580GpbzjuzOkysk nervous system disorders (14 sources)Neuropathy; Translations: [Polyneuropathy, unspecified]02-01-2024 ChronicComment on above:ra lower extremtiesOther nervous system disorders (17 sources)Polyneuropathy, unspecified; Translations: [Mononeuritis of unspecified site]03-39-6564SbshdcyLxrzt nervous system disorders (20 sources)Postoperative pain ; Translations: [Other acute postprocedural pain] 39-02-1283HbrfknmgKzcvl nervous system disorders (16 sources)Uguivw66-16-8472FynihunrNhzrg nervous system disorders (18 sources)Pain in limb; Translations: [Other acute postprocedural pain] 47-75-5698KvnoxhajEwesq non-traumatic joint disorders (20 sources)Pain in elbow; Translations: [Pain in left elbow]28-97-8785Fdrbhphh Other nutritional; endocrine; and metabolic disorders (20 sources)Body mass index 40+ - severely obese; Translations: [Body mass index (BMI) 40.0-44.9, adult]66-46-0094UqjizmeOtxaa nutritional; endocrine; and metabolic disorders (20 sources)Severe obesity; Translations: [Morbid (severe) obesity due to excess calories]ChronicOther nutritional; endocrine; and metabolic disorders (20 sources)Body mass index 30+ - obesity; Translations: [Obesity, unspecified] ChronicOther nutritional; endocrine; and metabolic disorders (4 sources)Obesity, unspecifiedOnset: 02-02-2022 Resolved: 32-21-5443LdoqhnvXyhri nutritional; endocrine; and metabolic disorders (3 sources)Body mass index (BMI) 40.0-44.9, adultChronicOther screening for suspected conditions (not mental disorders or infectious disease) (20 sources)Protein level - finding; Translations: [Other specified abnormal findings of blood chemistry]Onset: 612864-45-6452DmmzffyfUjjml skin disorders (2 sources)Localized swelling, mass and lump, right upper limbEpisodicOther skin disorders (18 sources)Lump on finger; Translations: [Localized swelling, mass and lump, unspecified upper limb]96-24-3036IoufdmayKxibq skin disorders (11 sources)Localized swelling, mass and lump, unspecified upper limb; Translations: [Localized superficial swelling, mass, or lump]98-38-7280Xoqhmlow Other skin disorders (1 source)Lentigo simplex; Translations: [Other melanin hyperpigmentation] 65-46-0441KlqfyzwjMtiun skin disorders (1 source)Seborrheic keratosis; Translations: [Other seborrheic keratosis] 77-59-3770OdknhzylNsrbo skin disorders (1 source)Inflamed seborrheic keratosis; Translations: [Inflamed seborrheic keratosis]40-35-6676MjywlfzaRdeaq upper respiratory disease (2 sources)Other diseases of mediastinum, not elsewhere classified; Translations: [Other diseases of mediastinum, not elsewhere classified]Onset: 50-47-2138JyiwslgdEggmgxam codes; unclassified (20 sources)Patient encounter status; Translations: [Encounter for prophylactic measures, unspecified]31-26-3648PbjejemtKeivywth codes; unclassified (16 sources)Ikilagrq64-58-5295AninlftgQdydzjeg codes; unclassified (16 sources)Poor short-term -67-0136EmqvjbhpAibcdyds codes; unclassified (20 sources)Other specified postprocedural states; Translations: [Other postprocedural status]EpisodicResidual codes; unclassified (17 sources)Postprocedural state finding; Translations: [Other specified postprocedural states]59-65-1099WtfoskeeRpxeqnrk codes; unclassified (17 sources)History of operative procedure on elbow; Translations: [Other specified postprocedural states]05-35-8029GrinlzqhFoqtiusdw and history of mental health and substance abuse codes (16 sources)Tobacco use and exposure - xetjtfe13-81-0103HcgpsdsRgcx and subcutaneous tissue infections (20 sources)Paronychia of toe of left foot; Translations: [Cellulitis of left toe]41-48-2015HrcjkwccUfirprphneh; intervertebral disc disorders; other back problems (20 sources)Lumbar arthritis; Translations: [Spondylosis without myelopathy or radiculopathy, lumbar region]Onset: 05-09-2022 Resolved: 90-41-9617WuaynywJfkxtcsuqcn; intervertebral disc disorders; other back problems (20 sources)Radiculopathy, lumbar region; Translations: [Spinal stenosis of lumbar region]Onset: 05-09-2022 Resolved: 63-87-2507JvpblbscCxfrdjwaoqe injury; contusion (20 sources)Contusion of knee; Translations: [Contusion of left knee, initial encounter]EpisodicUnclassified (1 source)Patient encounter ryzqwl34-88-8601Fqepzlh tract infections (17 sources)Urinary tract infectious disease; Translations: [Urinary tract infection, site not specified]Onset: 90-85-6086Dohxywqm Past or Other Problems Problem ClassificationProblemDateDocumented DateEpisodic/ChronicDiabetes mellitus without complication (1 source)Other abnormal glucose; Translations: [OTHER ABNORMAL GLUCOSE]Onset: 58-73-6163FkrhdbnkIpirq circulatory disease (1 source)Hypotension, unspecified; Translations: [HYPOTENSION UNSPECIFIED] Onset: 86-22-3977WvifhjylDuuly injuries and conditions due to external causes (4 sources)Other injury of unspecified body region, initial encounter; Translations: [OTHER INJURY UNS BODY REGION INIT]Onset: 64-78-4285NthkknbsItjpi non-traumatic joint disorders (4 sources)Pain in right hipOnset: 02-02-2022 Resolved: 63-71-6883IpwyezghYbnnw non-traumatic joint disorders (3 sources)Pain in left hipOnset: 02-16-2022 Resolved: 54-23-2713TvparbkrQbnyn upper respiratory infections (1 source)Acute sinusitis, unspecified; Translations: [ACUTE SINUSITIS UNSPECIFIED]Onset: 07-63-4723OpzwboveVdwzyowz codes; unclassified (1 source)Insomnia, unspecified; Translations: [INSOMNIA UNSPECIFIED]Onset: 32-75-4485StowvibbXaudozaltlcd (4 sources)Other low back pain M54.59Onset: 06-27-2022 Resolved: 06-27-2022 Results Test NameValueInterpretationReference RangeFacilityAmbulatory Visit Summaryon 88-48-4090Wskdzxmexi Visit SummaryAmbulatory Visit Summary EVERTLIMA A :1965 [...] Patito Sweet MD Where: [facility] [place] [address] [place] [address]- Medications What How Much When Instructions Unchanged [...] signed up for this yet, please contact [email or web address] Management at [phone] to get signed up today. Language Information Language assistance services are available as needed. [facility] CenterAmbulatory Visit Summaryon 53-30-9736Oafgajzykr Visit SummaryAmbulatory Visit Summary LIMA LOYD :1965 [...] Patito Sweet MD Where: [facility] [place] [address] [place] [address]- You Need to Schedule the Following Appointments [...] What increases the risk? (more content not included)...[facility] CenterRemindermissouri baptist hospital-s[facility] 01-55-5362OipbfrjjqOavuurvbe From: Katherine Harrison To: EU - Recalls Lue; Sent: 05/09/2025 12:35:34 EDT Show up: 10/09/2025 11:32:00 EST Subject: 6m CHANTEL/KUB Due Date/Time: 11/09/2025 11:32:00 EST Reminder Message Please Remember to: Please call pt to schedule CHANTEL for 6 mo appt. He will also need KUB for his appt. Both orders in 05/09/25 encounter. Thanks![facility] Medical CenterUrology Office/Clinic Noteon 93-80-4356Udcdzkj Office/Clinic NoteUrology Office/Clinic Note Chief Complaint fu [...] for stone passage. [facility]. [facility] -Keep Flomax 0.4 mg qd prn for [...] Follow-up With When C (more content not included)...[facility] Comment on above:Result Comment: Electronically Signed By: Patito Sweet MD\.br\Date and Time Signed: 05/09/25 12:34EDT\.br\Electronically Co-Signed By: Katherine Harrison\.br\Date and Time Co-Signed: 05/09/25 12:24 EDTPSA Total (Not a Screen)on 57-21-9872TDQ Total (Not a Screen)0.780 ng/mLNormal0.000-4.000The [facility] Physician GroupComment on above:Result Comment: Serial tumor marker results determined by assays using different manufacturers or methods may not be comparable. [facility] model maker apprentice and method: YongCheEL DXI, CHEMILUMINESCENT IMMUNOASSAY. PERFORMED BY: [place] [address] PATHOLOGIST GEODETIC TECHNICIAN YOON YEH M.D.Performed By: #### PSATOTAL #### [place] [address] USAProstate specific Ag [Mass/volume] in Serum or Plasma Ordered By: Patito Sweet on 38-50-7351Cooaofsq specific Ag [Mass/Vol]0.780 ng/mL 0.000-4.000Togus Va Medical CenterComment on above:Serial tumor marker results determined by assays using different manufacturers or methods may not be comparable.[facility] model maker apprentice and method:AMY UNICEL DXI, CHEMILUMINESCENT IMMUNOASSAY.US renal BIon 74-37-1565SW renal [facility] Main [address] [address] Ultrasound Report Signed Patient: Lima Loyd MR#: [id number] : 1965 Acct:[id number] Age/Sex: 59 / M ADM Date: 05/07/25 Loc: Room: Type: [facility] Attending Dr: Patito Sweet MD [...] Jr., DAlejoOAlejo 05/07/2025 4:39 PM Dictation Location: [place] [address] Tech: Teressa Olmedo Transcribed By: ALDEN 05/07/25 1639 Dictated By: Abad Perez Jr, DO 05/07/25 1638 Signed By: 05/07/25 1639[facility] Physician GroupX-ray reportOrdered By: Abad Perez on 56-55-1252Ttvqo reportFIRELANDS REGIONAL MEDICAL [place] [id number] XRay Report Signed Patient: Lima Loyd MR#: [id number] : 1965 Acct:[id number] Age/Sex: 59 / M ADM Date: 5 Loc: UL Room: Type: [facility] CLI Attending Dr: Patito Sweet MD Copies [...] Jr., Dmitri 05/07/2025 4:40 PM Dictation Location: [place] [address] Transcribed By: [facility] 05/07/25 1640 Dictated By: Abad Perez Jr, DO 05/07/25 1639 Signed By: 05/07/[address] [place] [address] 37-69-8558BQ [place] [id number] XRay Report Signed Patient: Lima Loyd MR#: [id number] : 1965 Acct:[id number] Age/Sex: 59 / M ADM Date: 05/07/25 Loc: UL Room: Type: [facility] CLI Attending Dr: Patito Sweet MD Copies [...] Jr., D.OAlejo 05/07/2025 4:40 PM Dictation Location: [facility] Transcribed By: [facility] 05/07/25 1640 Dictated By: Abad Perez Jr, DO 05/07/25 1639 Signed By: 05/07/[address] [place] [address] Physician GroupReminderson 96-58-9035Wanonngnj Reminders From: Katherine Harrison To: TEAGAN Sweet; Sent: 11/08/2024 11:58:38 EST Show up: 04/08/2025 12:58:00 EDT Subject: 6 m CHANTEL Due Date/Time: 05/08/2025 12:58:00 EDT Reminder Message Please Remember to:_Please call pt to schedule CHANTEL for 6 m appt. Typically [facility]. He will also need KUB and PSA for his appt. All ordered today 11/08/24. Pt preferred for it to be scheduled closer to appt than IO today. PATIENT RELATED REMINDER:_ ( ) Call Patient ( ) Ask Patient to ( ) Call Relative ( ) Schedule Patient ( ) Follow up on Results ( ) Other: PROVIDER RELATED REMINDER:_ ( ) Dobby Looms Pegger ( ) Call Pharmacy ( ) Call Lab ( ) Other: Special Instructions:_ Comments:_ follow up 05/09/25NoOhioHealth Shelby HospitalCryotherapy, skin lesion Ordered By: Deisy Deluca on 62-31-9724FDQC [employer] Work Phone: bODY FLUID CELL DIFFERENTIALon 61-36-9069ICZWJXAOS TOTAL PER COUNTED LEUKOCYTES IN BODY FLUID BY MANUAL COUNTNormalUniversity of Baylor Scott & White Medical Center – Round RockComment on above:Order Comment: Differential performed on cytospinPerformed By: #### [id number] #### [facility] (BEAKER) [address], [place] [address]IQMXP COUNTED TOTAL (#) IN BODY [id number]ring Health Main CampusComhawthorn center on above:Order Comment: Differential performed on cytospinPerformed By: #### [id number] #### [facility] (BEAKER) [address] [place], [place] [address]SDMJXCVXOEX TOTAL PER COUNTED LEUKOCYTES IN BODY FLUID BY MANUAL COUNTNormalUniversKettering Health Main CampusComhawthorn center on above:Order Comment: Differential performed on cytospinPerformed By: #### [id number] #### [facility] (AKER) [address] [place], [place] [address]AIKWUBQZMEW TOTAL PER COUNTED LEUKOCYTES IN BODY FLUID BY MANUAL KKGLD80MchpecBhxdbhtogvKnox Community HospitalComhawthorn center on above:Order Comment: Differential performed on cytospinPerformed By: #### [id number] #### [facility] (AKER) [address] [place], [place] [address]LQDBKPZHXNC CELLS TOTAL PER COUNTED LEUKOCYTES IN BODY FLUID BY MANUAL COUNNormalUniversKettering Health Main CampusComhawthorn center on above:Order Comment: Differential performed on cytospinPerformed By: #### [id number] #### [facility] (AKER) [address] [place], [place] [address]NCHQJTBZN+MACROPHAGES TOTAL PER COUNTED LEUKOCYTES IN BODY FLUID BY LFCMUB52JsudvlTvhizpzozyKettering Health Main CampusComhawthorn center on above:Order Comment: Differential performed on cytospinPerformed By: #### [id number] #### [facility] (BEAKER) [address] [place], [place] [address]TWOVAPXTVXQ TOTAL PER COUNTED LEUKOCYTES IN BODY FLUID BY MANUAL EPOEV09WueigwLyccezdlkcKettering Health Main CampusComhawthorn center on above:Order Comment: Differential performed on cytospinPerformed By: #### [id number] #### [facility] (BEAKER) [address] [place], [place] [address]LLWXK CELLS BODY FLUID (MANUAL)Normaliversity Adena Pike Medical CenterComhawthorn center on above:Order Comment: Differential performed on cytospin Performed By: #### [id number] #### [facility] (BEAKER) [address] [place], [place] [address]CWbj 81-83-4992QU Attestation signed by Shantel Becker MD at 11/12/2024 12:05 PM Re-explained the procedure to the patient along with the associated risk of pneumothorax, bleeding, hypoxia, and respiratory failure. Patient is agreeable and will proceed with the scheduled bronchoscopy and EBUS Shantel Becker MD Interventional Pulmonary Medicine Pulmonary and Critical Care Medicine [facility] History Of Present Illness Lima Loyd [...] patient with detail he is agreeableNormalUniversity of Baylor Scott & White Medical Center – Round RockNON-SOLE RUFFER CYTOLOGY - CELLULAR EXAMon 59-44-2714JYO AP CASE REPORTNormalUniversity of Baylor Scott & White Medical Center – Round RockComment on above:Result Comment: Non-gynecologic Cytology Case: [id number] Authorizing Provider: Shantel Becker MD Collected: 11/12/2024 1244 Ordering Location: [facility] Main Operating Room Received: 11/12/2024 1314 Pathologist: Ameya Bucio MD Specimens: A) - Mediastinum, ANTERIOR MEDIASTINAL MASS FNA B) - Bronchoalveolar lavage, right middle lobePerformed By: #### [id number] ####[facility] (BEAKER)[address] [place], [place] [address]RFD AP CLINICAL INFORMATIONOrder DiagnosesNormalUniversity of Baylor Scott [facility] White Medical Center – Round RockComment on above:Result Comment: J98.59 - Mediastinal mass [ICD-10-CM]Performed By: #### [id number] ####[facility] ([facility])[address] [place], [place] [address]YBQ AP GROSS DESCRIPTIONNormalUniKnox Community HospitalComhawthorn center on above: Result Comment: A. 3 air-dried slides, 4 alcohol-fixed slides, 30 mL CytoLyt with hazy, red fluid and clot. B. 15 mL cloudy, red fluidPerformed By: #### [id number] ####[facility] ([facility])[address] [facility], [place] [address]OOZ AP INTRAOPERATIVE CONSULTATIONA. Mediastinum.[facility] HospitalComhawthorn center on above:Result Comment: Rapid on-site evaluation was [...] of all material submitted.*Performed By: #### [id number] ####[facility] ([facility])[address] [place], [place] [address]FTI AP MICROSCOPIC DESCRIPTIONNormalUniKnox Community HospitalComhawthorn center on above:Result Comment: A. Satisfactory for evaluation. Examination of the prepared smears and cell block reveals groups of benign follicular cells in a background of hemosiderin-laden macrophages, abundant colloid and blood. B. Satisfactory for evaluation. Examination of the ThinPrep slide and cell block reveals benign bronchial cells, alveolar macrophages, inflammation, rare squamous cells and debris.Performed By: #### [id number] ####[facility] ([facility])[address] [place], [place] [address]OAZ AP REPORT FINAL DIAGNOSIS NARRATIVENormalUniKnox Community HospitalComhawthorn center on above:Result Comment: A. Anterior mediastinal mass, EBUS-guided fine needle aspiration: - Negative for malignancy. - Benign thyroid tissue. B. Lung, right middle lobe, bronchoalveolar lavage: - Negative for malignancy. Performed By: #### [id number] ####[facility] ([facility])[address] [place] [address] PATHOLOGY REVIEWon 35-18-0664SKPGUMKUS REVIEWReviewed.NormalUnDayton Children's HospitalComment on above:Result Comment: .Performed By: #### [id number] ####[facility] ([facility])[address] [place], [place] [address]SQFH GLUCOSE METER UNSOLICITED RESULTSon 68-08-2495Sfnkaky [Mass/Vol]112 mg/xRKlbx87-564QqnlfzfenjDayton Children's HospitalComment on above:Order Comment: Waived Testing in the ED is performed under the ED CLIA certificate #[id number].Result Comment: asoria3 Performed By: #### [id number] ####[facility] ([facility])[address] [place], [place] [address]YGEVOZPUQTR CULTUREon 50-27-3041SPWN STAIN RESULTNormal [facility] for RehabilitationComment on above:Order Comment: >10,000 CFU/mL Colonies Consistent with Upper Respiratory FloraResult Comment: Moderate Polymorphonuclear leukocytes No organisms seenPerformed By: #### [id number] ####[facility] ([facility])[address] [place], [place] [address]Bqorttulmr Visit Summaryon 90-49-1067Uatipuklnt Visit SummaryAmbulatory Visit Summary LIMA LOYD :1965 [...] NAVARRO, Patito Good Where: [facility] [place] [address] [address] [place] [address]- You Need to Schedule the Following Appointments Follow Up with Kee NAVARRO, Patito Good, URL, URO When: Where: Medications What How Much When Instructions Changed tadalafil (Cialis 20 mg Tab) 1 Tablets By Mouth As Directed Take half tab one to two hours prior to sexual activity. Do NOT exceed 20 mg (1 full tab) in 24 hours. Pickup at [facility] [phone] Unchanged potassium citrate (potassium CITRATE 10 mEq [...] physician if questions or concerns Pharmacy Information [facility] [id number]: [address] [place], [place] [phone] Allergies Augmentin (Hives) Bee Stings morphine (Unknown) [...] food labels [Image Remove (more content not included)...[facility] Prep for Procedureon 85-84-6820Ynum for [id number] Lima Loyd 1965 M Date Provider Department Center 11/08/2024 SHANTEL FRANKLIN [facility] PREOP [place] Medical C Family History Problem Relation Age of Onset Diabetes Mother Leukemia Father Diabetes Sister Diabetes Brother Family Status - Relation Status Age at Mother Father Sister BrotherNormalUniversity of Baylor Scott & White Medical Center – Round RockUrology Office/Clinic Noteon 68-33-6424Gebpbii Office/Clinic NoteUrology Office/Clinic Note Chief Complaint F/U [...] Cialis is not satisfactory, (more content not included)...[facility] Medical CenterComment on above:Result Comment: Electronically Signed By: Patito Sweet MD\.br\Date and Time Signed: 11/08/24 12:48EST\.br\Electronically Co- Signed By: Katherine Harrison\.br\Date and Time Co-Signed: 11/08/24 11:57 ESTHPon 72-23-0304MAHgyllcxmd Telehealth Visit Note Patient: Lima Loyd Age: 59 y.o. : 1965 Account No.: [id number] Referring physician: Dr. Terrell Chief complaint: Anterior [...] , PH , PHART , PHVEN , GMG0UTF , ASA8MLF , MNI6CCN , PO2POC , PO2ART , PO2VEN , BJB4OAO , HXV9OSK Radiology: CT scan personally reviewed and showed [...] was initiated by the patient and conducted xsh-toyd-ln-face with use of audio-only real time telephone communication between patient and provider for a virtual visit. Verbal consent to provide and bill for this service was obtained on 11/07/2024. Shantel Becker MD Interventional Pulmonary Medicine Pulmonary and Critical Care Medicine [facility] PhysiciansNormalUniversity of [facility] Telemedicineon [id number] Lima Loyd 1965 M Date Provider Department Center 11/07/2024 383-SHANTEL BECKER DCC ONC DCC Family History Problem Relation Age of Onset Diabetes Mother Leukemia Father Diabetes Sister Diabetes Brother Family Status - Relation Status Age at Mother Father Sister Brother Level of Service:35978 PA OFFICE/OUTPT VISIT,PROCEDURE ONLY Reason for Visit and Comments: New Patient [632] - Go over ct images; has a persistent coughNormalUniversity of Baylor Scott & White Medical Center – Round RockUS renal BIon 49-85-4881QK renal [facility] [place] [address] Ultrasound Report Signed Patient: Lima Loyd MR#: [id number] : 1965 Acct:[id number] Age/Sex: 59 / M ADM Date: 11/06/24 Loc: Room: Type: [facility] Attending Dr: Patito Sweet MD [...] Perez Jr., D.O.11/06/2024 1:40 PM Dictation Location: [place] [address] Tech: Cindi Sanchez Transcribed By: ALDEN 11/06/24 1340 Dictated By: Abad Perez Jr, DO 11/06/24 1339 Signed By: 11/06/24 1340[facility] Physician GroupX-ray reportOrdered By: Abad Perez on 45-94-4223[facility] [place] [address] [place] [address] XRay Report Signed Patient: Lima Loyd MR#: [id number] : 1965 Acct:[id number] Age/Sex: 59 / M ADM Date: 5 Loc: Room: Type: [facility] Attending Dr: Patito Sweet MD [...] DO 11/06/24 1340 Signed By: 11/06/24 1341 [facility] Va Medical CenterXR abdomen 1Von 73-27-2441ZO abdomen 1V [facility] [place] [address] XRay Report Signed Patient: Lima Loyd MR#: [id number] : 1965 Acct:[id number] Age/Sex: 59 / M ADM Date: 11/06/24 Loc: Room: Type: [facility] Attending Dr: Patito Sweet MD [...] 1:41 PM Dictation Location: RADIO-PC-23 Transcribed By: ADLEN 11/06/24 1341 Dictated By: Abad Perez Jr, DO 11/06/24 1340 Signed By: 11/06/24 1341NoAt[facility] Health [facility] Physician GroupTelephoneon 40-44-3186Yexrrkcbc [id number] Lima Loyd 1965 M Date Provider Department Center 11/05/2024 LEONEL RICHARDS ONC DCC Family History Problem Relation Age of Onset Diabetes Mother Leukemia Father Diabetes Sister Diabetes Brother Family Status - Relation Status Age at Mother Father Sister BrotherNormalUniversity of Baylor Scott & White Medical Center – Round RockTelephoneon 32-06-9233Dqxcguutb [id number] Lima Loyd 1965 M Date Provider Department Center 11/01/2024 910-LEONEL WONG DCC ONC DCC Family History Problem Relation Age of Onset Diabetes Mother Leukemia Father Diabetes Sister Diabetes Brother Family Status - Relation Status Age at Mother Father Sister BrotherNormalUniversity of Baylor Scott & White Medical Center – Round RockOffice Visiton 46-46-3328Gzyrlp- up [id number] Lima Loyd 1965 M Date Provider Department Center 10/31/2024 383-SHANTEL BECKER DCC ONC DCC Family History Problem Relation Age of Onset Diabetes Mother Leukemia Father Diabetes Sister Diabetes Brother Family Status - Relation Status Age at Mother Father Sister Brother Level of Service:47062 PA OFFICE/OUTPATIENT NEW MODERATE MDM 45 MINUTES (GC) Reason for Visit and Comments: New Patient [632] - Lung massNormalUniversity of Baylor Scott & White Medical Center – Round RockAbstracton [id number] Lima Loyd 1965 M Date Provider Department Center 10/23/2024 2020-DANNY EDWARDS HVCTS UT HeartVAS No family history on fileNormMagruder Memorial HospitalniKnox Community HospitalAutomated basophil %Ordered By: Venkat Paredes on 17-80-8555Gwistmeak/100 WBC (Bld)0.5 % Normal.[facility] Va Medical CenterComment on above:Performed By: #### BMP, CBC #### [facility] [address] [place] [address] USAAutomated basophil countOrdered By: Venkat Paredes on 71-53-2292Tidfogvku (Bld) [#/Vol]0.0 10*3/uLNormal0.0-0.2FMemorial HospitalComment on above:Result Comment: PERFORMED BY: [place] [address] PATHOLOGIST GEODETIC TECHNICIAN BENEDICTO WODO M.D.Performed By: #### BMP, CBC #### [place] [address] USAAutomated blood monocyte countOrdered By: Venkat Paredes on 16-72-4087Dvlfngzes (Bld) [#/Vol]1.0 10*3/uLHigh0.0-0.8Tog[facility] Va Medical CenterComment on above:Performed By: #### BMP, CBC #### [place] [address] USAAutomated eosinophil %Ordered By: Venkat Paredes on 46-08-6539Rslzpmbgqff/100 WBC (Bld)2.3 %Normal.[facility] Comment on above:Performed By: #### BMP, CBC #### [place] [address] USAAutomated eosinophil countOrdered By: Venkat Paredes on 89-22-6269Hswwgstgihz (Bld) [#/Vol]0.2 10*3/uLNormal0.0-0.45Tog[facility] Va Medical CenterComment on above:Performed By: #### BMP, CBC #### [place] [address] USAAutomated monocyte %Ordered By: Venkat Paredes on 66-59-6588Gcmsayokq/100 WBC (Bld)10.8 %Normal.[facility] Comment on above:Performed By: #### BMP, CBC #### [place] [address] USAAutomated neutrophil %Ordered By: Venkat Paredes on 98-01-8423Jzwvfjxsxys/100 WBC (Bld)58.9 %Normal.[facility] Va Medical CenterComment on above:Performed By: #### BMP, CBC #### [place] [address] USABasic Metabolic Panelon 59-35-2368IBZ/1.73 sq M.predicted MDRD (S/P/Bld) [Vol rate/Area]mL/min/{1.73_m2}NormalThe Mission Hospital Mcdowell Physician GroupComment on above:Performed By: #### BMP, CBC #### [address] [place] [address] [facility] metabolic 1998 panelon 23-19-5432Nnvoz gap [Moles/Vol]11.9 mmol/L6.0 - 15.0NOMS HealthcareCalcium [Mass/Vol]8.6 mg/dL8.6 - 10.3 mg/dLNOMS HealthcareChloride [Moles/Vol]108 mmol/LHigh98 - 107 mmol/LNOMS HealthcareCO2 [Moles/Vol]27.5 mmol/L21.0 - 31.0 mmol/LNOMS HealthcareCreatinine (U) [Mass/Vol]1.27 mg/dL0.70 - 1.30 mg/dLNOGA HealthcareGFR/1.73 sq M.predicted MDRD (S/P/Bld) [Vol rate/Area]mL/min/{1.73_m2}NOMS HealthcareGlucose [Mass/Vol] 119 mg/tXUdnv11 - 100 mg/dLNOGA HealthcareComment on above:Random Glucose Reference Range is dependent on time and content of last meal. Glucose of more than 200 mg/dL in a nonstressed, ambulatory subject supports the diagnosis of Diabetes Mellitus. ADA recommended reference range Interpretation and review of laboratory resultsAbnormalNOMS HealthcarePotassium [Moles/Vol]4.4 mmol/L3.5 - 5.1 mmol/LNOMS HealthcareSodium [Moles/Vol]143 mmol/L 136 - 145 mmol/LNOMS HealthcareUrea nitrogen [Mass/Vol]10 mg/dL7 - 25 mg/dLNOGA HealthcareNOMS HealthcareBasophils Auto (Bld) [#/Vol]Ordered By: Venkat Paredes on 51-69-8715Yxdopspum (Bld) [#/Vol]Automated basophil count0.0-0.2FMemorial HospitalBasophils/100 WBC Auto (Bld)Ordered By: Venkat Paredes on 38-75-0848Qsgekydqg/100 WBC (Bld)Automated basophil %.T[facility] Va Medical CenterCB W Auto Differential panel (Bld)on 85-39-8388Wecbftoee (Bld) [#/Vol]0 10*3/uL0.0 - 0.2 10*3/uLNOMS HealthcareBasophils/100 WBC Manual cnt (Syn fld)0.5 %.[facility] HealthcareEosinophils (Bld) [#/Vol]0.2 10*3/uL0.0 - 0.45 10*3/uLNOMS HealthcareEosinophils/100 WBC Manual cnt (Syn fld)2.3 %.[facility]Pointe HospitalErythrocyte distribution width (RBC) [Ratio]15.4 %High12.0 - 14.8 % [facility] HospitalHematocrit (Bld) [Volume fraction]40.5 %38.8 - 50.0 %[facility]Po[facility] HospitalHemoglobin (Bld) [Mass/Vol]13.5 g/dL13.0 - 17.0 g/dLSouthPointe Hospital Interpretation and review of laboratory resultsAbnormalSouthPointe Hospital Lymphocytes (Bld) [#/Vol]2.6 10*3/uL1.00 - 4.8 10*3/uLNOGA Healthcare Lymphocytes/100 WBC Manual cnt (Syn fld)27.5 %.[facility] HealthH (RBC) [Entitic mass]25.9 pgLow27.5 - 35.2 pgCarondelet HealthHC (RBC) [Mass/Vol]33.3 g/dL32.5 - 35.6 g/dLSouthPointe HospitalMCV (RBC) [Entitic vol]77.8 fLLow83.5 - 101 fLSouthPointe HospitalMonocytes (Bld) [#/Vol]1 10*3/uLHigh0.0 - 0.8 10*3/uLNOGA Healthcare Monocytes+Macrophages/100 WBC Manual cnt (Syn fld)10.8 %.[facility] Neutrophils (Bld) [#/Vol]5.7 10*3/uL1.8 - 7.7 10*3/uLNOGA Healthcare Neutrophils/100 WBC Manual cnt (Syn fld)58.9 %.[facility]Pointe HospitalNRBC0.2 /100{WBC}0 - 0.5 /100{WBC}[facility]Pointe HospitalPlatelet mean volume (Bld) [Entitic vol]7.5 fL6.6 - 10.1 fLMOUNTAIN POINT MEDICAL CENTER HealthcarePlatelets (Bld) [#/Vol]217 10*3/uL150 - 450 10*3/uLSouthPointe HospitalRBC LM.HPF (Urine sed) [#/Area]5.21 /[HPF]3.90 - 5.60NOMS Healthcare WBC (Bld) [#/Vol]9.6 10*3/uL4.1 - 10.5 10*3/uLNOMS HealthcareWBC LM.HPF (Urine sed) [#/Area]9.6 10*3/uL4.1 - 10.5 10*3/uLNOMS HealthcareNOMS HealthcareCalcium [Mass/volume] in Serum or PlasmaOrdered By: Venkat Paredes on 56-86-0874Edbxkcn [Mass/Vol]8.6 mg/dLNormal8.6-10.3FMemorial HospitalComment on above:Result Comment: PERFORMED BY: [place] [address] PATHOLOGIST GEODETIC TECHNICIAN BENEDICTO WOOD M.D.Performed By: #### BMP, CBC #### [facility] [address] [place] [address] USACalcium [Mass/Vol]Calcium [Mass/volume] in Serum or Plasma 8.6-10.3FMemorial HospitalCarbon dioxide, total [Moles/volume] in Serum or PlasmaOrdered By: Venkat Paredes on 82-01-0324HL0 [Moles/Vol]27.5 mmol/HFpkxmg24.0-31.0Tog[facility] Va Medical CenterComment on above:Performed By: #### BMP, CBC #### [facility] [address] [place] [address] USACO2 [Moles/Vol]Carbon dioxide, total [Moles/volume] in Serum or Vwqtlf78.0-31.0Togus Va Medical CenterChloride [Moles/volume] in Serum or PlasmaOrdered By: Venkat Paredes on 54-75-4432Kuyjjfut [Moles/Vol] 108 mmol/YRvjx32-765JhavzzzuaTogus Va Medical CenterComment on above:Performed By: #### BMP, CBC #### [facility] [address] [place] [address] USAChloride [Moles/Vol]Chloride [Moles/volume] in Serum or XcsatuYdnl97-985FggahekbwTogus Va Medical CenterComplete Blood Count Auto Diff on 15-74-7501Fhke Corpuscular HGB Conc33.3 g/uVGssowj62.5-35.6[facility] Physician GroupComment on above:Performed By: #### BMP, CBC #### [facility] [address] [place] [address] USANRBC%0.2 /100{WBC}Normal0-0.5[facility] Comment on above:Performed By: #### BMP, CBC #### [facility] [address] [place] [address] USACreatinine [Mass/volume] in Serum or PlasmaOrdered By: Venkat Paredes on 75-09-1365Iigduzjpol [Mass/Vol]1.27 mg/dLNormal0.70-1.30 [facility] CenterComment on above:Performed By: #### BMP, CBC #### [facility] [address] [place] [address] USACreatinine [Mass/Vol]Creatinine [Mass/volume] in Serum or Plasma0.70-1.30[facility] Medical CenterECG 12 lead ECGon 02-09-2594NOD 12 lead [facility]AS[facility] Main [place] [address] [place] [address] Electrocardiograph Report Signed Patient: Lima Loyd MR#: [id number] : 1965 Acct:[id number] Age/Sex: 58 / M ADM Date: 08/20/24 Loc: Room: Type: [facility] Attending Dr: Venkat Paredes DPM [...] By: Electronically Signed By: ELENA HAMILTON MD [facility] Transcribed By: MUS Signed By Elena Hamilton MD, [facility] 08/20/[address] [place] [address] Physician GroupEosinophils Auto (Bld) [#/Vol] Ordered By: Venkat Paredes on 47-70-7506Laxtaasxegj (Bld) [#/Vol]Automated eosinophil count0.0-0.45[facility] Medical CenterEosinophils/100 WBC Auto (Bld)Ordered By: Venkat Paredes on 08-68-2538Epwwfgdlfjg/100 WBC (Bld) Automated eosinophil %.[facility] Medical CenterErythrocyte distribution width Auto (RBC) [Ratio]Ordered By: Venkat Paredes on 97-81-1083Lksmjrwuynb distribution width (RBC) [Ratio]Erythrocyte distribution width [Ratio] by Automated hodfuHdfl28.0-14.8[facility] CenterErythrocyte distribution width [Ratio] by Automated countOrdered By: Venkat Paredes on 99-69-7311Wnwqdxkjuse distribution width (RBC) [Ratio]15.4 %High12.0-14.8 [facility] CenterComment on above:Performed By: #### BMP, CBC #### [facility] [address] [place] [id number] USAErythrocytes [#/volume] in Blood by Automated countOrdered By: Venkat Paredes on 79-40-0682QYD (Bld) [#/Vol]5.21 10*6/uLNormal3.90-5.60 [facility] CenterComment on above:Performed By: #### BMP, CBC #### [facility] [address] [place] [address] USAGlucose [Mass/volume] in Serum or PlasmaOrdered By: Venkat Paredes on 88-06-6708Bouqrfv [Mass/Vol]119 mg/eGEont58-823JqoiijxqvTogus Va Medical CenterComment on above:ADA recommended reference rangeRandom Glucose Reference [...] reference rangePerformed By: #### BMP, CBC #### [facility] [address] [place] [address] USAGlucose [Mass/Vol]Glucose [Mass/volume] in Serum or Plasma Nphk06-293JoqfcuqepTogus Va Medical CenterComment on above:ADA recommended reference rangeRandom Glucose Reference Range is dependent on time and content of last meal. Glucose of more than 200 mg/dL in a nonstressed, ambulatory subject supports the diagnosisof Diabetes Mellitus.Hematocrit Auto (Bld) [Volume fraction]Ordered By: Venkat Paredes on 09-24-7797Ykbsmptvfk (Bld) [Volume fraction]Hematocrit [Volume Fraction] of Blood by Automated count38.8-50.0 [facility] CenterHematocrit [Volume Fraction] of Blood by Automated countOrdered By: Venkat Paredes on 62-44-6964Jspnvxewgt (Bld) [Volume fraction]40.5 %Dzzevk77.8-50.0[facility] CenterComment on above: Performed By: #### BMP, CBC #### [facility] [address] [place] [address] USAHemoglobin [Mass/volume] in BloodOrdered By: Venkat Paredes on 88-17-7976Kdhidqyhse (Bld) [Mass/Vol]13.5 g/gVZfotww19.0-17.0[facility] CenterComment on above:Performed By: #### BMP, CBC #### [facility] [address] [place] [address] USAHemoglobin (Bld) [Mass/Vol]Hemoglobin [Mass/volume] in Blood13.0-17.0[facility] Medical CenterLeukocytes [#/volume] corrected for nucleated erythrocytes in Blood by Automated counOrdered By: Venkat Paredes on 94-69-1900TUE corrected for nucl RBC Auto (Bld) [#/Vol]9.6 10*3/uL4.1-10.5 [facility] CenterWBC corrected for nucl RBC Auto (Bld) [#/Vol] Leukocytes [#/volume] corrected for nucleated erythrocytes in Blood by Automated coun4.1-10.5FMemorial HospitalLeukocytes [#/volume] in Blood by Automated countOrdered By: Venkat Paredes on 64-69-6217TLS (Bld) [#/Vol]9.6 10*3/uLNormal4.1-10.5FMemorial HospitalComment on above:Performed By: #### BMP, CBC #### [facility] [address] [place] [address] USALymphocytes Auto (Bld) [#/Vol]Ordered By: Venkat Paredes on 35-02-2772Ngqbniurfuu (Bld) [#/Vol]Lymphocytes [#/volume] in Blood by Automated count1.00-4.8[facility] Medical CenterLymphocytes [#/volume] in Blood by Automated countOrdered By: Venkat Paredes on 12-89-2150Fpcrhylpcmy (Bld) [#/Vol]2.6 10*3/uLNormal1.00-4.8[facility] CenterComment on above:Performed By: #### BMP, CBC #### [place] [address] USALymphocytes/100 WBC Auto (Bld)Ordered By: Venkat Paredes on 92-56-4618Qjgpajjoiov/100 WBC (Bld)Lymphocytes/100 leukocytes in Blood by Automated count.[facility] Medical CenterLymphocytes/100 leukocytes in Blood by Automated countOrdered By: Venkat Paredes on 78-48-1290Bejyifnvoai/100 WBC (Bld)27.5 %Normal.[facility] CenterComment on above: Performed By: #### BMP, CBC #### [facility] [address] [place] [address] Auto (RBC) [Entitic mass]Ordered By: Venkat Paredes on 18-28-5463UTW (RBC) [Entitic mass]MCH [Entitic mass] by Automated countLow 27.5-35.2FMemorial HospitalMCH [Entitic mass] by Automated count Ordered By: Venkat Paredes on 51-95-1683DKP (RBC) [Entitic mass]25.9 pgLow 27.5-35.2FMemorial HospitalComment on above:Performed By: #### BMP, CBC #### [facility] [address] [place], [place] [address]HC Auto (RBC) [Mass/Vol]Ordered By: Venkat Paredes on 20-73-0111DXSF (RBC) [Mass/Vol]33.3 g/dL32.5-35.6FWooster Community HospitalHC (RBC) [Mass/Vol]MCHC [Mass/volume] by Automated count32.5-35.6 [facility] CenterV Auto (RBC) [Entitic vol]Ordered By: Venkat Paredes on 68-94-8207TAA (RBC) [Entitic vol]MCV [Entitic volume] by Automated lcgoePka82.5-101[facility] CenterV [Entitic volume] by Automated countOrdered By: Venkat Paredes on 70-95-5836WAN (RBC) [Entitic vol]77.8 fLLow[address] [place], [place] [address]Comment on above: Performed By: #### BMP, CBC #### [facility] [address] [place] [address] USAMonocytes Auto (Bld) [#/Vol]Ordered By: Venkat Paredes on 59-75-0560Fnopqhdcw (Bld) [#/Vol]Automated blood monocyte countHigh0.0-0.8 [facility] CenterMonocytes/100 WBC Auto (Bld)Ordered By: Venkat Paredes on 65-97-9231Wozlqahsv/100 WBC (Bld)Automated monocyte %. [facility] Medical CenterNeutrophils Auto (Bld) [#/Vol]Ordered By: Venkat Paredes on 26-65-4859Dbyzsjrkceb (Bld) [#/Vol]Neutrophils [#/volume] in Blood by Automated count1.8-7.7FMemorial HospitalNeutrophils [#/volume] in Blood by Automated countOrdered By: Venkat Paredes on 08-20-2024 Neutrophils (Bld) [#/Vol]5.7 10*3/uLNormal1.8-7.7FMemorial HospitalComment on above:Performed By: #### BMP, CBC #### [facility] [address] [place] [address] USANeutrophils/100 WBC Auto (Bld)Ordered By: Venkat Paredes on 70-25-4679Njgpkpflavd/100 WBC (Bld)Automated neutrophil %.[facility] CenterNo Panel InformationOrdered By: Venkat Paredes on 08-20-2024 Estimated GFR (CKD-EPI)> 60.0 mL/MinTogus Va Medical CenterPharmacy Creatinine Clearance (ChemN/AFMemorial HospitalNucleated erythrocytes [Presence] in Blood by Automated countOrdered By: Venkat Paredes on 13-91-4440Kzodfhyef RBC Auto Ql (Bld)0.2 /100{WBC}0-0.5FMemorial HospitalNucleated RBC Auto Ql (Bld)Nucleated erythrocytes [Presence] in Blood by Automated count0-0.5FMemorial HospitalPlatelet mean volume Auto (Bld) [Entitic vol]Ordered By: Venkat Paredes on 76-47-5297Nhnnyzqt mean volume (Bld) [Entitic vol]Platelet mean volume [Entitic volume] in Blood by Automated count6.6-10.1FMemorial HospitalPlatelet mean volume [Entitic volume] in Blood by Automated countOrdered By: Venkat Paredes on 78-65-9359Cjodwsko mean volume (Bld) [Entitic vol]7.5 fLNormal6.6-10.1FMemorial HospitalComment on above:Performed By: #### BMP, CBC #### [facility] [address] [place] [address] USAPlatelets Auto (Bld) [#/Vol]Ordered By: Venkat Paredes on 44-89-4935Uvjinagqi (Bld) [#/Vol]Platelets [#/volume] in Blood by Automated bwqoi996-645VlfxcyerpTogus Va Medical CenterPlatelets [#/volume] in Blood by Automated countOrdered By: Venkat Paredes on 74-29-0344Utvvexvoq (Bld) [#/Vol] 217 10*3/uAGyegkd596-713UjtsuppnsTogus Va Medical CenterComment on above: Performed By: #### BMP, CBC #### [facility] [address] [place] [address] USAPotassium [Moles/volume] in Serum or PlasmaOrdered By: Venkat Paredes on 46-41-4295Krghafwef [Moles/Vol]4.4 mmol/LNormal3.5-5.1 [facility] CenterComment on above:Performed By: #### BMP, CBC #### [facility] [address] [place] [address] USAPotassium [Moles/Vol]Potassium [Moles/volume] in Serum or Plasma3.5-5.1FMemorial HospitalRBC Auto (Bld) [#/Vol]Ordered By: Venkat Paredes on 52-23-9330NYJ (Bld) [#/Vol]Erythrocytes [#/volume] in Blood by Automated count3.90-5.60[facility] Hospitalerum or plasma anion gap determinationOrdered By: Venkat Paredes on 37-41-5369Hmqzt gap [Moles/Vol] 11.9 mmol/LNormal6.0-15.0[facility] CenterComment on above: Performed By: #### BMP, CBC #### [facility] [address] [place] [address] USAAnion gap [Moles/Vol]Serum or plasma anion gap determination6.0-15.0[facility] Hospitalodium [Moles/volume] in Serum or PlasmaOrdered By: Venkat Paredes on 92-13-9198Penkzu [Moles/Vol]143 mmol/KPgwbre860-664MikaswmsqTogus Va Medical CenterComment on above:Performed By: #### BMP, CBC #### [facility] [address] [place] [address] USASodium [Moles/Vol]Sodium [Moles/volume] in Serum or Plasma 136-145[facility] Medical CenterUrea nitrogen [Mass/volume] in Serum or PlasmaOrdered By: Venkat Paredes on 38-63-4298Idoj nitrogen [Mass/Vol]10 mg/dL Normal05-09[facility] Medical CenterComment on above:Performed By: #### BMP, CBC #### [facility] [address] [place] [address] USAUrea nitrogen [Mass/Vol]Urea nitrogen [Mass/volume] in Serum or Plasma05-09[facility] Medical CenterWBC Auto (Bld) [#/Vol] Ordered By: Venkat Paredes on 54-33-9674JQS (Bld) [#/Vol]Leukocytes [#/volume] in Blood by Automated count4.1-10.5FMemorial HospitalCalcium [Mass/volume] in Serum or PlasmaOrdered By: Patito Sweet on 92-94-7331Uyfmtwe [Mass/Vol]8.5 mg/dLLow8.6-10.3FMemorial HospitalCarbon dioxide, total [Moles/volume] in Serum or PlasmaOrdered By: Patito Sweet on 35-24-6962QP9 [Moles/Vol]26.8 mmol/L21.0-31.0[facility] Medical CenterChloride [Moles/volume] in Serum or PlasmaOrdered By: Patito Sweet on 49-33-9801Cdeftwat [Moles/Vol]105 mmol/W01-409SxkgtmlplTogus Va Medical CenterCreatinine [Mass/volume] in Serum or PlasmaOrdered By: Patito Sweet on 15-37-2567Kvhmcmvjlo [Mass/Vol]1.12 mg/dL0.70-1.30[facility] Medical CenterGlucose [Mass/volume] in Serum or PlasmaOrdered By: Patito Sweet on 68-74-9999Dkunfmc [Mass/Vol]191 mg/vBCvet03-491BqikhfwqwTogus Va Medical CenterComment on above: ADA recommended reference rangeRandom Glucose Reference Range is dependent on time and content of last meal. Glucose of more than 200 mg/dL in a nonstressed, ambulatory subject supports the diagnosisof Diabetes Mellitus.No Panel InformationOrdered By: Patito Sweet on 63-65-8897Rrrvpyoiz GFR (CKD-EPI)> 60.0 mL/MinTogus Va Medical CenterPharmacy Creatinine Clearance (ChemN/A [facility] CenterPotassium [Moles/volume] in Serum or Plasma Ordered By: Patito Sweet on 69-62-1071Vpatanmew [Moles/Vol]4.2 mmol/L3.5-5.1 [facility] Hospitalerum or plasma anion gap determinationOrdered By: Patito Sweet on 13-59-3827Hnuyo gap [Moles/Vol]9.4 mmol/L6.0-15.0[facility] Hospitalodium [Moles/volume] in Serum or PlasmaOrdered By: Patito Sweet on 92-27-1232Paubnq [Moles/Vol]137 mmol/E799-290QbehzwvphTogus Va Medical CenterUrea nitrogen [Mass/volume] in Serum or PlasmaOrdered By: Patito Sweet on 22-81-5659Ezeh nitrogen [Mass/Vol]10 mg/dL7-25[facility] Calcium [Mass/volume] in Serum or PlasmaOrdered By: Patito Sweet on 11-23-2023 Calcium [Mass/Vol]8.8 mg/dL8.6-10.3FMemorial HospitalCarbon dioxide, total [Moles/volume] in Serum or PlasmaOrdered By: Patito Sweet on 20-12-8866TS3 [Moles/Vol]28.9 mmol/L21.0-31.0[facility] Chloride [Moles/volume] in Serum or PlasmaOrdered By: Patito Sweet on 11-23-2023 Chloride [Moles/Vol]105 mmol/Y05-481GibibxahcTogus Va Medical CenterCreatinine [Mass/volume] in Serum or PlasmaOrdered By: Patito Sweet on 46-71-9441Nwzylunzng [Mass/Vol]1.15 mg/dL0.70-1.30[facility] CenterGlucose [Mass/volume] in Serum or PlasmaOrdered By: Patito Sweet on 08-79-2828Vvojhak [Mass/Vol]119 mg/rV36-988GzanhufflTogus Va Medical CenterComment on above:ADA recommended reference rangeRandom Glucose Reference Range is dependent on time and content of last meal. Glucose of more than 200 mg/dL in a nonstressed, ambulatory subject supports the diagnosisof Diabetes Mellitus.No Panel InformationOrdered By: Patito Sweet on 67-46-1302Tdvsosmah GFR (CKD-EPI)> 60.0 mL/MinTogus Va Medical CenterPharmacy Creatinine Clearance (ChemN/A [facility] CenterPotassium [Moles/volume] in Serum or Plasma Ordered By: Patito Sweet on 80-37-2795Vjryhwwsv [Moles/Vol]4.3 mmol/L3.5-5.1 [facility] Hospitalerum or plasma anion gap determinationOrdered By: Patito Sweet on 51-37-7615Mjehw gap [Moles/Vol]9.4 mmol/L6.0-15.0[facility] Hospitalodium [Moles/volume] in Serum or PlasmaOrdered By: Patito Sweet on 84-32-1727Rbpupv [Moles/Vol]139 mmol/R742-718WvqpichxdTogus Va Medical CenterUrea nitrogen [Mass/volume] in Serum or PlasmaOrdered By: Patito Sweet on 43-47-8536Vnvc nitrogen [Mass/Vol]11 mg/dL7-25[facility] COAGULATIONOrdered By: Ayana Lopez on 79-83-6612qDUR Coag (PPP) [Time]32.6 s Yoasdj37.1 - 36.5 second(s)[facility] [place] Auto CoagComment on above:Interpretive Data: Parameter 15 [...] the same coagulation reagent and instrumentation as [facility] [place] Currently there are no coagulation studies available worldwide for children to 14 days, andno normal ranges. Heparin therapeutic range (represented by Anti-Factor Xa activity of 0.2 - 0.4 U/mL) corresponds to PTT of 56.6 - 109.0 sec.INR Coag (PPP) [Relative time]1.1 {INR}Invalid Interpretation CodeMERCY HOSPITAL [facility] [place] Auto CoagComment on above:Interpretive Data: INR results are specifically intended to assess patients stabilized on long-term Anticoagulation therapy suggested INR s Less Intensive Anticoagulation 2.0 3.0 Conventional Range 3.0 4.5PT Coag (PPP) [Time]12.6 sHigh9.4 - 12.5 second(s)[facility] [place] Auto CoagComment on above:Interpretive Data: 15 days [...] the same coagulation reagent and instrumentation as [facility]. Currently there are no coagulation studies available worldwide for children to 14 days, andno normal ranges.Alanine aminotransferase [Enzymatic activity/volume] in Serum or PlasmaOrdered By: Gaurav Higuera on 02-29-6006ERV [Catalytic activity/Vol]17 U/L 7-52[facility] Medical CenterAlbumin [Mass/volume] in Serum or Plasma by Bromocresol green (BCG) dye binding methoOrdered By: Gaurav Higuera on 48-65-7182Uyzwacf BCG dye [Mass/Vol]4.2 g/dL3.5-5.7FMemorial HospitalAlkaline phosphatase [Enzymatic activity/volume] in Serum or PlasmaOrdered By: Gaurav Higuera on 58-33-7047HGC [Catalytic activity/Vol]47 U/P54-101RkgcxqvoiTogus Va Medical CenterAspartate aminotransferase [Enzymatic activity/volume] in Serum or PlasmaOrdered By: Gaurav Higuera on 77-61-5587LUL [Catalytic activity/Vol]13 U/B26-25FkeebqiluTogus Va Medical CenterBasophils Auto (Bld) [#/Vol]Ordered By: Gaurav Higuera on 50-06-8293Rawyidfsg (Bld) [#/Vol]0.1 10*3/uL 0.0-0.2FMemorial HospitalBasophils/100 WBC Auto (Bld)Ordered By: Gaurav Higuera on 52-96-6383Xszaknazj/100 WBC (Bld)0.8 %.[facility] Medical CenterBilirubin.total [Mass/volume] in Serum or PlasmaOrdered By: Gaurav Higeura on 45-12-5719Gxuhpkrfa [Mass/Vol]0.4 mg/dL0.3-1.0[facility] CenterCalcium [Mass/volume] in Serum or PlasmaOrdered By: Gaurav Higuera on 15-62-7495Yyxdfpt [Mass/Vol]8.6 mg/dL8.6-10.3FMemorial HospitalCarbon dioxide, total [Moles/volume] in Serum or PlasmaOrdered By: Gaurav Higuera on 27-78-1982QP3 [Moles/Vol]23.6 mmol/L21.0-31.0[facility] CenterChloride [Moles/volume] in Serum or PlasmaOrdered By: Gaurav Higuera on 54-07-7576Hlidstyz [Moles/Vol]108 mmol/C34-733WhuzaoipdTogus Va Medical CenterCreatinine [Mass/volume] in Serum or PlasmaOrdered By: Gaurav Higuera on 98-55-5242Shxbjfiplr [Mass/Vol]1.50 mg/dL0.70-1.30[facility] Medical CenterEosinophils Auto (Bld) [#/Vol]Ordered By: Gaurav Higuera on 98-36-3146Yoghcdsmocz (Bld) [#/Vol]0.2 10*3/uL0.0-0.45[facility] CenterEosinophils/100 WBC Auto (Bld)Ordered By: Gaurav Higuera on 08-15-2023 Eosinophils/100 WBC (Bld)2.5 %.[facility] Medical CenterErythrocyte distribution width Auto (RBC) [Ratio]Ordered By: Gaurav Higuera on 08-15-2023 Erythrocyte distribution width (RBC) [Ratio]15.4 %12.0-14.8[facility] Medical CenterGlobulin Calc (S) [Mass/Vol]Ordered By: Gaurav Higuera on 97-32-6510Qijoycqv (S) [Mass/Vol]2.3 g/dLTogus Va Medical Center Glucose [Mass/volume] in Serum or PlasmaOrdered By: Gaurav Higuera on 08-15-2023 Glucose [Mass/Vol]120 mg/sV13-661IifxgcntmTogus Va Medical CenterComment on above:ADA recommended reference rangeGlucose mean value [Mass/volume] in Blood Estimated from glycated hemoglobinOrdered By: Gaurav Higuera on 73-20-9155Xtawjce glucose Estimated from glycated hemoglobin (Bld) [Mass/Vol]134 mg/dLTogus Va Medical CenterHematocrit Auto (Bld) [Volume fraction]Ordered By: Gaurav Higuera on 51-46-7398Ewnqmsvaca (Bld) [Volume fraction]40.0 %38.8-50.0[facility] Medical CenterHemoglobin [Mass/volume] in BloodOrdered By: Gaurav Higuera on 90-98-2697Ibftssdcyi (Bld) [Mass/Vol]13.4 g/dL13.0-17.0[facility] CenterLaboratory - Hematology and Cell countsOrdered By: Gaurav Higuera on 33-28-0255FwS4y (Bld) [Mass fraction]6.3 %4.3-5.6FMemorial HospitalComment on above:Increased risk for diabetes: 5.7 - 6.4diabetes: >6.4glycemic control for adults with diabetes: <7.0Leukocytes [#/volume] corrected for nucleated erythrocytes in Blood by Automated counOrdered By: Gaurav Higuera on 43-05-8840SOD corrected for nucl RBC Auto (Bld) [#/Vol]6.6 10*3/uL4.1-10.5FMemorial HospitalLymphocytes Auto (Bld) [#/Vol] Ordered By: Gaurav Higuera on 31-22-4105Oiqvjobexld (Bld) [#/Vol]2.0 10*3/uL 1.00-4.8[facility] Medical CenterLymphocytes/100 WBC Auto (Bld)Ordered By: Gaurav Higuera on 19-33-8008Bbzgidlxwxa/100 WBC (Bld)30.2 %.[facility] CenterH Auto (RBC) [Entitic mass]Ordered By: Gaurav Higuera on 34-61-4698GXP (RBC) [Entitic mass]26.0 pg27.5-35.2FMemorial HospitalMCHC Auto (RBC) [Mass/Vol]Ordered By: Gaurav Higuera on 84-00-1753SZNW (RBC) [Mass/Vol]33.5 g/dL32.5-35.6FMemorial HospitalMCV Auto (RBC) [Entitic vol]Ordered By: Gaurav Higuera on 56-33-2599BBF (RBC) [Entitic vol]77.7 fL83.5-101[facility] Medical CenterMonocytes Auto (Bld) [#/Vol] Ordered By: Gaurav Higuera on 93-03-0913Dxguwtfqk (Bld) [#/Vol]0.7 10*3/uL0.0-0.8 [facility] CenterMonocytes/100 WBC Auto (Bld)Ordered By: Gaurav Higuera on 39-33-0679Psyhmnipo/100 WBC (Bld)10.3 %.[facility] Medical CenterNeutrophils Auto (Bld) [#/Vol]Ordered By: Gaurav Higuera on 08-15-2023 Neutrophils (Bld) [#/Vol]3.7 10*3/uL1.8-7.7FMemorial Hospital Neutrophils/100 WBC Auto (Bld)Ordered By: Gaurav Higuera on 08-15-2023 Neutrophils/100 WBC (Bld)56.2 %.[facility] CenterNo Panel InformationOrdered By: Gaurav Higuera on 15-52-2212Wccrnfddk GFR (CKD-EPI)53.298 mL/MinTogus Va Medical CenterPharmacy Creatinine Clearance (ChemN/A [facility] CenterNucleated erythrocytes [Presence] in Blood by Automated countOrdered By: Gaurav Higuera on 91-83-1726Bdzjigxtp RBC Auto Ql (Bld)0.1 /100{WBC}0-0.5FMemorial HospitalPlatelet mean volume Auto (Bld) [Entitic vol]Ordered By: Gaurav Higuera on 25-66-6993Rmuhegfb mean volume (Bld) [Entitic vol]7.2 fL6.6-10.1FMemorial Hospital Platelets Auto (Bld) [#/Vol]Ordered By: Gaurav Higuera on 30-35-3275Avqxxqucv (Bld) [#/Vol]220 10*3/tJ596-098VllxcyvjrTogus Va Medical CenterPotassium [Moles/volume] in Serum or PlasmaOrdered By: Gaurav Higuera on 08-15-2023 Potassium [Moles/Vol]4.3 mmol/L3.5-5.1FMemorial HospitalProtein [Mass/volume] in Serum or PlasmaOrdered By: Gaurav Higuera on 34-46-5375Kdornvu [Mass/Vol]6.5 g/dL6.4-8.9[facility] Medical CenterRBC Auto (Bld) [#/Vol] Ordered By: Gaurav Higuera on 05-55-2318MEU (Bld) [#/Vol]5.14 10*6/uL3.90-5.60 [facility] Hospitalerum or plasma albumin/globulin mass ratio Ordered By: Gaurav Higuera on 19-11-5161Bhvvnfl/Globulin [Mass ratio]1.8 {ratio} [facility] Hospitalerum or plasma anion gap determinationOrdered By: Gaurav Higuera on 33-92-2162Snvqh gap [Moles/Vol]10.7 mmol/L6.0-15.0[facility] Hospitalodium [Moles/volume] in Serum or PlasmaOrdered By: Gaurav Higuera on 10-38-6226Pblari [Moles/Vol]138 mmol/V392-054EnblxpigdTogus Va Medical CenterUrea nitrogen [Mass/volume] in Serum or PlasmaOrdered By: Gaurav Higuera on 51-78-3250Jout nitrogen [Mass/Vol]15 mg/dL7-25[facility] Medical CenterWBC Auto (Bld) [#/Vol]Ordered By: Gaurav Higuera on 42-35-1375EUU (Bld) [#/Vol]6.6 10*3/uL4.1-10.5FMemorial HospitalAlanine aminotransferase [Enzymatic activity/volume] in Serum or PlasmaOrdered By: Gaurav Higuera on 76-10-1314FAU [Catalytic activity/Vol]16 U/L7-52[facility] Medical CenterAlbumin [Mass/volume] in Serum or Plasma by Bromocresol green (BCG) dye binding methoOrdered By: Gaurav Higuera on 24-61-6334Ptxdjkg BCG dye [Mass/Vol]4.4 g/dL3.5-5.7FMemorial HospitalAlkaline phosphatase [Enzymatic activity/volume] in Serum or PlasmaOrdered By: Gaurav Higuera on 02-53-0141WUD [Catalytic activity/Vol]56 U/A98-187FhiiajvxxTogus Va Medical CenterAspartate aminotransferase [Enzymatic activity/volume] in Serum or PlasmaOrdered By: Gaurav Higuera on 27-04-6750AKM [Catalytic activity/Vol]12 U/L 13-39[facility] Medical CenterBasophils Auto (Bld) [#/Vol]Ordered By: Gaurav Higuera on 21-11-5318Obhwwrdqr (Bld) [#/Vol]0.0 10*3/uL0.0-0.2FMemorial HospitalBasophils/100 WBC Auto (Bld)Ordered By: Gaurav Higuera on 85-77-2971Rhwzlztjk/100 WBC (Bld)0.3 %.[facility] Bilirubin.total [Mass/volume] in Serum or PlasmaOrdered By: Gaurav Higuera on 02-40-1042Srmisxanf [Mass/Vol]0.7 mg/dL0.3-1.0[facility] Calcium [Mass/volume] in Serum or PlasmaOrdered By: Gaurav Higuera on 03-31-2023 Calcium [Mass/Vol]8.8 mg/dL8.6-10.3FMemorial HospitalCarbon dioxide, total [Moles/volume] in Serum or PlasmaOrdered By: Gaurav Higuera on 00-83-5094MH7 [Moles/Vol]26.7 mmol/L21.0-31.0[facility] Chloride [Moles/volume] in Serum or PlasmaOrdered By: Gaurav Higuera on 55-63-5681Sbpdtxhg [Moles/Vol]106 mmol/L98-544DnwkromevTogus Va Medical Center Creatinine [Mass/volume] in Serum or PlasmaOrdered By: Gaurav Higuera on 28-05-6073Oqbkbwtgyd [Mass/Vol]1.24 mg/dL0.70-1.30[facility] CenterEosinophils Auto (Bld) [#/Vol]Ordered By: Gaurav Higuera on 03-31-2023 Eosinophils (Bld) [#/Vol]0.1 10*3/uL0.0-0.45[facility] Eosinophils/100 WBC Auto (Bld)Ordered By: Gaurav Higuera on 03-31-2023 Eosinophils/100 WBC (Bld)1.0 %.[facility] CenterErythrocyte distribution width Auto (RBC) [Ratio]Ordered By: Gaurav Higuera on 03-31-2023 Erythrocyte distribution width (RBC) [Ratio]16.1 %12.0-14.8[facility] CenterGlobulin Calc (S) [Mass/Vol]Ordered By: Gaurav Higuera on 00-64-3288Wkbolvxd (S) [Mass/Vol]2.1 g/dLTogus Va Medical Center Glucose [Mass/volume] in Serum or PlasmaOrdered By: Gaurav Higuera on 03-31-2023 Glucose [Mass/Vol]105 mg/kI00-506JrtlxpstiTogus Va Medical CenterComment on above:ADA recommended reference rangeGlucose mean value [Mass/volume] in Blood Estimated from glycated hemoglobinOrdered By: Gaurav Higuera on 20-02-3627Qrnlmtk glucose Estimated from glycated hemoglobin (Bld) [Mass/Vol]151 mg/dLTogus Va Medical CenterHematocrit Auto (Bld) [Volume fraction]Ordered By: Gaurav Higuera on 93-16-3056Ltkdonwmzq (Bld) [Volume fraction]41.1 %38.8-50.0[facility] Medical CenterHemoglobin [Mass/volume] in BloodOrdered By: Gaurav Higuera on 30-92-1830Oyctkucrio (Bld) [Mass/Vol]13.8 g/dL13.0-17.0[facility] CenterLaboratory - Hematology and Cell countsOrdered By: Gaurav Higuera on 74-96-7344QlJ2k (Bld) [Mass fraction]6.9 %4.3-5.6FMemorial HospitalComment on above:Increased risk for diabetes: 5.7 - 6.4diabetes: >6.4glycemic control for adults with diabetes: <7.0Leukocytes [#/volume] corrected for nucleated erythrocytes in Blood by Automated counOrdered By: Gaurav Higuera on 51-38-3259NNL corrected for nucl RBC Auto (Bld) [#/Vol]9.6 10*3/uL4.1-10.5FMemorial HospitalLymphocytes Auto (Bld) [#/Vol] Ordered By: Gaurav Higuera on 42-05-4768Gqhlochyiwf (Bld) [#/Vol]2.1 10*3/uL 1.00-4.8[facility] Medical CenterLymphocytes/100 WBC Auto (Bld)Ordered By: Gaurav Higuera on 08-23-6346Lzrvxzchads/100 WBC (Bld)21.5 %.[facility] CenterH Auto (RBC) [Entitic mass]Ordered By: Gaurav Higuera on 47-53-1527FEQ (RBC) [Entitic mass]26.3 pg27.5-35.2FMemorial HospitalMCHC Auto (RBC) [Mass/Vol]Ordered By: Gaurav Higuera on 72-96-7380NSKM (RBC) [Mass/Vol]33.6 g/dL32.5-35.6FMemorial HospitalMCV Auto (RBC) [Entitic vol]Ordered By: Gaurav Higuera on 58-92-5629SFN (RBC) [Entitic vol]78.2 fL83.5-101[facility] CenterMonocytes Auto (Bld) [#/Vol] Ordered By: Gaurav Higuera on 27-06-6168Jdidmkgkq (Bld) [#/Vol]0.7 10*3/uL0.0-0.8 [facility] CenterMonocytes/100 WBC Auto (Bld)Ordered By: Gaurav Higuera on 12-43-8018Mpzxeyecq/100 WBC (Bld)7.2 %.[facility] CenterNeutrophils Auto (Bld) [#/Vol]Ordered By: Gaurav Higuera on 03-31-2023 Neutrophils (Bld) [#/Vol]6.7 10*3/uL1.8-7.7FMemorial Hospital Neutrophils/100 WBC Auto (Bld)Ordered By: Gaurav Higuera on 03-31-2023 Neutrophils/100 WBC (Bld)70.0 %.[facility] CenterNo Panel InformationOrdered By: Gaurav Higuera on 21-49-6653Cexorehlu GFR (CKD-EPI)> 60.0 mL/MinTogus Va Medical CenterPharmacy Creatinine Clearance (ChemN/A [facility] CenterNucleated erythrocytes [Presence] in Blood by Automated countOrdered By: Gaurav Higuera on 27-47-3355Xebncvqpi RBC Auto Ql (Bld)0.1 /100{WBC}0-0.5FMemorial HospitalPlatelet mean volume Auto (Bld) [Entitic vol]Ordered By: Gaurav Higuera on 88-10-3223Ehfnkdav mean volume (Bld) [Entitic vol]7.0 fL6.6-10.1FMemorial Hospital Platelets Auto (Bld) [#/Vol]Ordered By: Gaurav Higuera on 83-29-3309Xfvjlkxmj (Bld) [#/Vol]195 10*3/hW298-849CrvzkcsynTogus Va Medical CenterPotassium [Moles/volume] in Serum or PlasmaOrdered By: Gaurav Higuera on 03-31-2023 Potassium [Moles/Vol]4.2 mmol/L3.5-5.1FMemorial HospitalProstate specific Ag [Mass/volume] in Serum or PlasmaOrdered By: Patito Sweet on 03-31-2023 Prostate specific Ag [Mass/Vol]0.650 ng/mL0.000-4.000[facility] CenterProtein [Mass/volume] in Serum or PlasmaOrdered By: Gaurav Higuera on 42-61-3154Hwzxppj [Mass/Vol]6.5 g/dL6.4-8.9[facility] Medical CenterRBC Auto (Bld) [#/Vol]Ordered By: Gaurav Higuera on 51-25-1443FFF (Bld) [#/Vol]5.25 10*6/uL3.90-5.60[facility] Hospitalerum or plasma albumin/globulin mass ratioOrdered By: Gaurav Higuera on 03-31-2023 Albumin/Globulin [Mass ratio]2.1 {ratio}[facility] Hospitalerum or plasma anion gap determinationOrdered By: Gaurav Higuera on 65-09-3531Ovsou gap [Moles/Vol]11.5 mmol/L6.0-15.0[facility] Hospitalodium [Moles/volume] in Serum or PlasmaOrdered By: Gaurav Higuera on 35-99-6725Qcxumf [Moles/Vol]140 mmol/T580-316RzafbvldiTogus Va Medical CenterUrate [Mass/volume] in Serum or PlasmaOrdered By: Patito Sweet on 62-80-1602Csmjz [Mass/Vol]7.9 mg/dL 4.4-7.6FMemorial HospitalUrea nitrogen [Mass/volume] in Serum or PlasmaOrdered By: Gaurav Higuera on 04-63-3168Nubj nitrogen [Mass/Vol]17 mg/dL 7-25[facility] CenterWBC Auto (Bld) [#/Vol]Ordered By: Gaurav Higuera on 60-45-7571ULR (Bld) [#/Vol]9.6 10*3/uL4.1-10.5FMemorial HospitalAlanine aminotransferase [Enzymatic activity/volume] in Serum or PlasmaOrdered By: Gaurav Higuera on 58-32-4445FAE [Catalytic activity/Vol]11 U/L 7-52[facility] CenterAlbumin [Mass/volume] in Serum or Plasma by Bromocresol green (BCG) dye binding methoOrdered By: Gaurav Higuera on 24-27-3613Qkjfqcu BCG dye [Mass/Vol]4.1 g/dL3.5-5.7FMemorial HospitalAlkaline phosphatase [Enzymatic activity/volume] in Serum or PlasmaOrdered By: Gaurav Higuera on 13-80-0059DGT [Catalytic activity/Vol]55 U/N56-132DifxlfkkuTogus Va Medical CenterAspartate aminotransferase [Enzymatic activity/volume] in Serum or PlasmaOrdered By: Gaurav Higuera on 91-44-7010CKD [Catalytic activity/Vol]8 U/A27-09FxgxwhumuTogus Va Medical CenterBasophils Auto (Bld) [#/Vol]Ordered By: Gaurav Higuera on 26-22-7598Rttcpfvjz (Bld) [#/Vol]0.0 10*3/uL 0.0-0.2FMemorial HospitalBasophils/100 WBC Auto (Bld)Ordered By: Gaurav Higuera on 25-25-5520Lrtvmlahc/100 WBC (Bld)0.6 %.[facility] CenterBilirubin.total [Mass/volume] in Serum or PlasmaOrdered By: Gaurav Higuera on 84-87-3402Jchohlzcv [Mass/Vol]0.3 mg/dL0.3-1.0[facility] CenterCalcium [Mass/volume] in Serum or PlasmaOrdered By: Gaurav Higuera on 68-96-3458Ecmhoxw [Mass/Vol]8.5 mg/dL8.6-10.3FMemorial HospitalCarbon dioxide, total [Moles/volume] in Serum or PlasmaOrdered By: Gaurav Higuera on 50-61-9108NP1 [Moles/Vol]25.3 mmol/L21.0-31.0[facility] CenterChloride [Moles/volume] in Serum or PlasmaOrdered By: Gaurav Higuera on 04-86-1264Rdwybcdq [Moles/Vol]109 mmol/M92-236ByxmfxpmeTogus Va Medical CenterCreatinine [Mass/volume] in Serum or PlasmaOrdered By: Gaurav Higuera on 41-00-1246Kbfuksicsq [Mass/Vol]1.24 mg/dL0.70-1.30[facility] CenterEosinophils Auto (Bld) [#/Vol]Ordered By: Gaurav Higuera on 69-50-2951Divhbqwumhx (Bld) [#/Vol]0.1 10*3/uL0.0-0.45[facility] CenterEosinophils/100 WBC Auto (Bld)Ordered By: Gaurav Higuera on 02-28-2023 Eosinophils/100 WBC (Bld)1.0 %.[facility] CenterErythrocyte distribution width Auto (RBC) [Ratio]Ordered By: Gaurav Higuera on 02-28-2023 Erythrocyte distribution width (RBC) [Ratio]16.8 %12.0-14.8[facility] Medical CenterGlobulin Calc (S) [Mass/Vol]Ordered By: Gaurav Higuera on 47-92-9279Czhekvvc (S) [Mass/Vol]2.4 g/dLTogus Va Medical Center Glucose [Mass/volume] in Serum or PlasmaOrdered By: Gaurav Higuera on 02-28-2023 Glucose [Mass/Vol]131 mg/oI81-695CzfirjbkkTogus Va Medical CenterComment on above:ADA recommended reference rangeGlucose mean value [Mass/volume] in Blood Estimated from glycated hemoglobinOrdered By: Gaurav Higuera on 31-35-7247Vwggzyo glucose Estimated from glycated hemoglobin (Bld) [Mass/Vol]143 mg/dLTogus Va Medical CenterHematocrit Auto (Bld) [Volume fraction]Ordered By: Gaurav Higuera on 70-78-8130Bvhcgavehy (Bld) [Volume fraction]41.1 %38.8-50.0[facility] CenterHemoglobin [Mass/volume] in BloodOrdered By: Gaurav Higuera on 01-36-6130Dtiebdxwun (Bld) [Mass/Vol]13.3 g/dL13.0-17.0[facility] CenterLaboratory - Hematology and Cell countsOrdered By: Gaurav Higuera on 67-53-0957PxW3r (Bld) [Mass fraction]6.6 %4.3-5.6FMemorial HospitalComment on above:Increased risk for diabetes: 5.7 - 6.4diabetes: >6.4glycemic control for adults with diabetes: <7.0Leukocytes [#/volume] corrected for nucleated erythrocytes in Blood by Automated counOrdered By: Gaurav Higuera on 03-49-1326BKN corrected for nucl RBC Auto (Bld) [#/Vol]8.4 10*3/uL4.1-10.5FMemorial HospitalLymphocytes Auto (Bld) [#/Vol] Ordered By: Gaurav Higuera on 58-42-9059Pbajbkqtfyp (Bld) [#/Vol]2.3 10*3/uL 1.00-4.8[facility] CenterLymphocytes/100 WBC Auto (Bld)Ordered By: Gaurav Higuera on 05-97-1308Kqskwkrqdqh/100 WBC (Bld)27.0 %.[facility] CenterH Auto (RBC) [Entitic mass]Ordered By: Gaurav Higuera on 59-35-8451IKY (RBC) [Entitic mass]24.8 pg27.5-35.2FMemorial HospitalMCHC Auto (RBC) [Mass/Vol]Ordered By: Gaurav Higuera on 59-36-3170UCBS (RBC) [Mass/Vol]32.4 g/dL32.5-35.6FMemorial HospitalMCV Auto (RBC) [Entitic vol]Ordered By: Gaurav Higuera on 83-87-7125CQL (RBC) [Entitic vol]76.7 fL83.5-101[facility] CenterMonocytes Auto (Bld) [#/Vol] Ordered By: Gaurav Higuera on 72-44-5298Upnqtkhjq (Bld) [#/Vol]0.9 10*3/uL0.0-0.8 [facility] CenterMonocytes/100 WBC Auto (Bld)Ordered By: Gaurav Higuera on 87-51-3497Fushmgwfa/100 WBC (Bld)10.1 %.[facility] CenterNeutrophils Auto (Bld) [#/Vol]Ordered By: Gaurav Higuera on 02-28-2023 Neutrophils (Bld) [#/Vol]5.2 10*3/uL1.8-7.7FMemorial Hospital Neutrophils/100 WBC Auto (Bld)Ordered By: Gaurav Higuera on 02-28-2023 Neutrophils/100 WBC (Bld)61.3 %.[facility] CenterNo Panel InformationOrdered By: Gaurav Higuera on 80-11-7861Nbvwvqqzn GFR (CKD-EPI)> 60.0 mL/MinTogus Va Medical CenterPharmacy Creatinine Clearance (ChemN/A [facility] CenterNucleated erythrocytes [Presence] in Blood by Automated countOrdered By: Gaurav Higuera on 06-36-9368Klctxkqhy RBC Auto Ql (Bld)0.1 /100{WBC}0-0.5FMemorial HospitalPlatelet mean volume Auto (Bld) [Entitic vol]Ordered By: Gaurav Higuera on 59-34-0294Jzupakwg mean volume (Bld) [Entitic vol]7.2 fL6.6-10.1FMemorial Hospital Platelets Auto (Bld) [#/Vol]Ordered By: Gaurav Higuera on 81-32-7199Gyhmhiibe (Bld) [#/Vol]239 10*3/sF896-062VqslojnzbTogus Va Medical CenterPotassium [Moles/volume] in Serum or PlasmaOrdered By: Gaurav Higuera on 02-28-2023 Potassium [Moles/Vol]3.9 mmol/L3.5-5.1FMemorial HospitalProtein [Mass/volume] in Serum or PlasmaOrdered By: Gaurav Higuera on 20-10-8019Bcwmwmg [Mass/Vol]6.5 g/dL6.4-8.9[facility] CenterRBC Auto (Bld) [#/Vol] Ordered By: Gaurav Higuera on 83-23-4136KDB (Bld) [#/Vol]5.36 10*6/uL3.90-5.60 [facility] Hospitalerum or plasma albumin/globulin mass ratio Ordered By: Gaurav Higuera on 43-91-5351Tbstagz/Globulin [Mass ratio]1.7 {ratio} [facility] Hospitalerum or plasma anion gap determinationOrdered By: Gaurav Higuera on 46-16-4405Gtvba gap [Moles/Vol]9.6 mmol/L6.0-15.0[facility] Hospitalodium [Moles/volume] in Serum or PlasmaOrdered By: Gaurav Higuera on 46-33-0889Lgnhvg [Moles/Vol]140 mmol/B725-628FzdeenjanTogus Va Medical CenterUrea nitrogen [Mass/volume] in Serum or PlasmaOrdered By: Gaurav Higuera on 13-48-0933Qfok nitrogen [Mass/Vol]12 mg/dL7-25T[facility] Medical CenterWBC Auto (Bld) [#/Vol]Ordered By: Gaurav Higuera on 35-40-9495XZH (Bld) [#/Vol]8.4 10*3/uL4.1-10.5FMemorial HospitalCALCULI, URINARYon ,8 DihydroxyadenineNoMount Carmel Health System HospitalComment on above:Performed By: #### CALCULI #### [facility] [address] [address] [address] Peter KyleAmmonium Acid UrateNormalComment on above: Performed By: #### CALCULI #### [facility] [address] [address] [address] Peter KyleBilirubin Ql (U)[facility] NorthComment on above: Performed By: #### CALCULI #### [facility] [address] [address] [address] Peter Masters Oxalate Odxttmsml05 %[facility] NorthComment on above:Performed By: #### CALCULI #### [facility] [address] [address] [address] Peter MastersHPO4 (Brushite)[facility] NorthComment on above: Performed By: #### CALCULI #### [facility] [address] [address] [address] Peter Jimenezium BilirubinateNormalComment on above: Performed By: #### CALCULI #### [facility] [address] [address] [address] Peter Jimenezium CarbonateNoTriHealth Good Samaritan HospitalComment on above: Performed By: #### CALCULI #### [facility] [address] [address] [address] Peter Jimenezium Oxalate Godtuxffklm63 %[facility] NorthComment on above:Performed By: #### CALCULI #### [facility] [address] [address] [address] Peter Jimenezium PalmitateProMedica Memorial Hospital on above: Performed By: #### CALCULI #### [facility] [address] [address] [address] Peter Jimenezium PhosphateProMedica Memorial Hospital on above: Performed By: #### CALCULI #### [facility] [address] [address] [address] Peter Jimenezium StearateNormalComhawthorn center on above: Performed By: #### CALCULI #### [facility] [address] [address] [address] Peter KyleCarbonate ApatiteProMedica Memorial Hospital on above: Performed By: #### CALCULI #### [facility] [address] [address] [address] Peter KyleCellular MaterialProMedica Memorial Hospital on above: Performed By: #### CALCULI #### [facility] [address] [address] [address] Peter KyleCholesterolProMedica Memorial Hospital on above:Performed By: #### CALCULI #### [facility] [address] [address] [address] Peter Heard ([facility] on above: Performed By: #### CALCULI #### [facility] [address] [address] [address] Peter WalkerKettering Health on above:Performed By: #### CALCULI #### [facility] [address] [address] [address] Peter WadeElyria Memorial Hospital on above:Result Comment: Calculus received wet. Wet calculi must be dried before analysis, which delays reporting of results. Leaving calculi wet (such as water, saline, blood, urine) may lead to changes in composition.Performed By: #### CALCULI #### [facility] [address] [address] [address] Peter Wade:CommentProMedica Memorial Hospital on above:Result Comment: Physician questions regarding Calculi Analysis contact LabKindred Hospital at: [phone].Performed By: #### CALCULI #### [facility] [address] [place] [address] Dr. Peter WalkerpositionComKettering Health on above: Result Comment: Percentage (Represents the % composition)Performed By: #### CALCULI #### [facility] [address] [place] [address] Dr. Peter KyleCystinePremier Health Miami Valley Hospital NorthComhawthorn center on above:Performed By: #### CALCULI #### [facility] [address] [place] [address] Dr. Peter Akersmer:CommentProMedica Memorial Hospital on above: Result Comment: This test was developed and its performance characteristics determined by [facility]. It has not been cleared or approved by the Food and Drug Administration.Performed By: #### CALCULI #### [facility] [address] [place] [address] Dr. Peter Gonzalesied BloodPremier Health Miami Valley Hospital NorthComhawthorn center on above:Performed By: #### CALCULI #### [facility] [address] [place] [address] Dr. Peter KyleMesilla Valley Hospital or Berger HospitalComhawthorn center on above: Performed By: #### CALCULI #### [facility] [address] [place] [address] Dr. Peter KyleHydroxyapatitePremier Health Miami [facility] Hospital NorthComhawthorn center on above: Performed By: #### CALCULI #### [facility] [address] [place] [address] Dr. Peter KyleMg NH4 PO4 (Struvite)[facility] NorthComment on above: Performed By: #### CALCULI #### [facility] [address] [place] [address] Dr. Peter KyleMgHPO4 (Newberyite)[facility] NorthComment on above: Performed By: #### CALCULI #### [facility] [address] [address] [address] Peter Lopez component(s)[facility] on above: Performed By: #### CALCULI #### [facility] [address] [address] [address] Peter Barba.[facility] on above:Performed By: #### CALCULI #### [facility] [address] [address] [address] Peter SalvadorProMedica Memorial Hospital on above:Result Comment: Photograph will follow under a separate coverPerformed By: #### CALCULI #### [facility] [address] [address] [address] Peter Gomez note:CommentProMedica Memorial Hospital on above: Result Comment: Calculi report will follow via computer, mail or temperature logging operator delivery.Performed By: #### CALCULI #### [facility] [address] [place] [address] Dr. [address] DoshiRaoxwVjvm[address]ftY[address] on above:Result Comment: Multiple pieces received. Dimensions of the largest piece reported.Performed By: #### CALCULI #### [facility] [address] [place] [address] Dr. Peter Lord UrCleveland Clinic Foundation on above: Performed By: #### CALCULI #### [facility] [address] [place] [address] Dr. Peter LewisProMedica Memorial Hospital on above:Result Comment: Left KidneyPerformed By: #### CALCULI #### [facility] [address] [address] [address] Peter LuisMemorial Health System [facility] on above:Performed By: #### CALCULI #### [facility] [address] [place] [address] Dr. Peter Allison [facility] on above:Performed By: #### CALCULI #### [facility] [address] [address] [address] Peter KyleUric Acid DihydrateNormalOhioHealth Shelby Hospital on above: Performed By: #### CALCULI #### [facility] [address] [address] [address] Peter Jain61 mgPremier Health Miami Valley Hospital NorthComhawthorn center on above:Performed By: #### CALCULI #### [facility] [address] [address] [address] Peter DotynthineProMedica Memorial Hospital on above:Performed By: #### CALCULI #### [facility] [address] [address] [address] Peter Duarte, URINARYon ,8 DihydroxyadenineProMedica Memorial Hospital on above:Performed By: #### CBC #### [facility] [address] [address] [address] Peter KyleAmmonium Acid UrateNCorey Hospital on above: Performed By: #### CBC #### [facility] [address] [address] [address] Peter Mckeonirubin Ql (U)[facility] on above: Performed By: #### CBC #### [facility] [address] [address] [address] Peter Masters Oxalate Xtpuwhnuc55 %[facility] on above:Performed By: #### CBC #### [facility] [address] [address] [address] Peter MastersHPO4 (Brushite)[facility] on above: Performed By: #### CBC #### [facility] [address] [address] [address] Peter Jimenezium BilirubinateNCorey Hospital on above: Performed By: #### CBC #### [facility] [address] [address] [address] Peter Jimenezium CarbonateProMedica Memorial Hospital on above: Performed By: #### CBC #### [facility] [address] [address] [address] Peter Jimenezium Oxalate Rrfhgwdkzhh20 %NormalOhioHealth Shelby Hospital on above:Performed By: #### CBC #### [facility] [address] [address] [address] Peter Jimenezium PalmitatePremier Health [facility] Hospital NorthComhawthorn center on above: Performed By: #### CBC #### [facility] [address] [address] [address] Peter Jimenezium PhosphateProMedica Memorial Hospital on above: Performed By: #### CBC #### [facility] [address] [address] [address] Peter Sharpe StearateNormalOhioHealth Shelby Hospital on above: Performed By: #### CBC #### [facility] [address] [address] [address] Peter KyleCarbonate ApatiteProMedica Memorial Hospital on above: Performed By: #### CBC #### [facility] [address] [address] [address] Peter Wongular MaterialProMedica Memorial Hospital on above: Performed By: #### CBC #### [facility] [address] [address] [address] Peter KyleCholesterolProMedica Memorial Hospital on above:Performed By: #### CBC #### [facility] [address] [address] [address] Peter Heard (U)BrownProMedica Memorial Hospital on above: Performed By: #### CBC #### [facility] [address] [address] [address] Peter WalkermentProMedica Memorial Hospital on above:Performed By: #### CBC #### [facility] [address] [address] [address] Peter KyleCommilvia:CommentNormalThe Rosanky HospitalComment on above:Result Comment: Physician questions regarding Calculi Analysis contact LabKindred Hospital at: [phone].Performed By: #### CBC #### [facility] [address] [place] [address] Dr. Peter WalkerpositionComKettering Health on above: Result Comment: Percentage (Represents the % composition)Performed By: #### CBC #### [facility] [address] [place] [address] Dr. Peter KyleCystinePremier Health Miami Valley Hospital NorthComment on above:Performed By: #### CBC #### [facility] [address] [place] [address] Dr. Peter Akersmer:CommentProMedica Memorial Hospital on above: Result Comment: This test was developed and its performance characteristics determined by [facility]. It has not been cleared or approved by the Food and Drug Administration.Performed By: #### CBC #### [facility] [address] [place] [address] Dr. Peter Gonzalesied BloodProMedica Memorial Hospital on above:Performed By: #### CBC #### [facility] [address] [place] [address] Dr. Peter KyleDrug or MetaboliteProMedica Memorial Hospital on above: Performed By: #### CBC #### [facility] [address] [place] [address] Dr. Peter KyleHydroxyapatiteProMedica Memorial Hospital on above: Performed By: #### CBC #### [facility] [address] [place] [address] Dr. Peter KyleMg NH4 PO4 (Struvite)[facility] Hospitalment on above: Performed By: #### CBC #### [facility] [address] [place] [address] Dr. Peter KyleMgHPO4 (Newberyite)NormalComment on above: Performed By: #### CBC #### [facility] [address] [place] [address] Dr. Yilan ChangOther component(s)[facility] on above: Performed By: #### CBC #### [facility] [address] [address] [address] Peter Barba.[facility] on above:Performed By: #### CBC #### [facility] [address] [address] [address] Peter SalvadorProMedica Memorial Hospital on above:Result Comment: Photograph will follow under a separate coverPerformed By: #### CBC #### [facility] [address] [address] [address] Peter Gomez note:CommentProMedica Memorial Hospital on above: Result Comment: Calculi report will follow via computer, mail or temperature logging operator delivery.Performed By: #### CBC #### [facility] [address] [address] [address] Peter TamezPuuftKcli5l4VzljpkBcr[address] on above:Result Comment: Multiple pieces received. Dimensions of the largest piece reported.Performed By: #### CBC #### [facility] [address] [address] [address] Peter Gilum Acid UrateNCorey Hospital on above: Performed By: #### CBC #### [facility] [address] [address] [address] Peter LewisProMedica Memorial Hospital on above:Result Comment: Not providedPerformed By: #### CBC #### [facility] [address] [address] [address] Peter LuisneProMedica Memorial Hospital on above:Performed By: #### CBC #### [facility] [address] [address] [address] Peter Allison AcidProMedica Memorial Hospital on above:Performed By: #### CBC #### [facility] [address] [address] [address] Peter Allison Acid DihydrateNormalThe Ela HospitalComment on above: Performed By: #### CBC #### [facility] [address] [address] [address] [place], [place] [address]Comment on above:Performed By: #### CBC #### [facility] [address] [address] [address] Peter DotynthinePremier Health Miami Valley Hospital NorthComment on above:Performed By: #### CBC #### [facility] [address] [address] [address] Peter Bates AUTO DIFFon [id number] #0.1 103/ulNormal0.0-0.1[facility] on above:Performed By: #### CBC #### [facility] [address] [address] [address] Peter KyleBasophils/100 WBC (Bld)0.8 %Normal0.2-2.0[facility] Comment on above:Performed By: #### CBC #### [facility] [address] [address] [address] Peter Plaza #0.4 103/ulNormal0.0-0.7[facility] on above: Performed By: #### CBC #### [facility] [address] [place] [address] Dr. Peter Changosinophils/100 WBC (Bld)4.6 %Normal0.9-7.0[facility] Comment on above:Performed By: #### CBC #### [facility] [address] [place] [address] Dr. Peter Changrythrocyte distribution width (RBC) [Ratio]16.1 %Critically high 11.0-15.0The [facility] [place] on above:Performed By: #### CBC #### [facility] [address] [place] [address] Dr. Peter KyleHematocrit (Bld) [Volume fraction]42.6 %Zwknnp92.0-54.0The [facility] HospitalComment on above:Performed By: #### CBC #### [facility] [address] [address] [address] Peter KyleHemoglobin (Bld) [Mass/Vol]13.9 g/dLCritically low14.0-18.0The [facility] HospitalComment on above:Performed By: #### CBC #### [facility] [address] [address] [address] Peter Ferguson #0.09 10e3/ulCritically high0.00-0.03The [facility] Comment on above:Performed By: #### CBC #### [facility] [address] [address] [address] Peter Ferguson %1.2 %Critically high0.0-0.5The [facility] HospitalComment on above:Performed By: #### CBC #### [facility] [address] [address] [address] Peter Barnard #2.2 103/ulNormal1.2-3.8The [facility] HospitalComment on above:Performed By: #### CBC #### [facility] [address] [address] [address] Peter Gaminohocytes/100 WBC (Bld)27.5 %Hudhbd06.5-60.0The [facility] [place] on above:Performed By: #### CBC #### [facility] [address] [address] [address] Peter BanerjeeUAL DIFF REQNONormalThe [facility] St. Mary HospitalComment on above: Performed By: #### CBC #### [facility] [address] [address] [address] Peter Bhagat (RBC) [Entitic mass]24.2 pgCritically low25.9-34.0The [facility] HospitalComment on above:Performed By: #### CBC #### [facility] [address] [address] [address] Peter Medina (RBC) [Mass/Vol]32.6 g/pRTzcczj31.9-35.2The [facility] HospitalComment on above:Performed By: #### CBC #### [facility] [address] [address] [address] Peter Townsend (RBC) [Entitic vol]74.1 fLCritically low80.0-94.0The [facility] HospitalComment on above:Performed By: #### CBC #### [facility] [address] [place] [address] Dr. Peter Obando #0.8 103/ulNormal0.3-0.8The [facility] HospitalComment on above:Performed By: #### CBC #### [facility] [address] [place] [address] Dr. Peter Cervantesocytes/100 WBC (Bld)10.5 %Normal1.7-12.0[facility] Comment on above:Performed By: #### CBC #### [facility] [address] [place] [address] Dr. Peter Calloway #4.3 103/ulNormal1.4-6.5The [facility] HospitalComment on above:Performed By: #### CBC #### [facility] [address] [place] [address] Dr. Peter Escalanteutrophils/100 WBC (Bld)55.4 %Lrcjsk93.0-75.0The [facility] HospitalComment on above:Performed By: #### CBC #### [facility] [address] [place] [address] Dr. Peter Adenlet mean volume (Bld) [Entitic vol]8.6 fLCritically low 9.5-13.5The [facility] HospitalComment on above:Performed By: #### CBC #### [facility] [address] [place] [address] Dr. Peter FlorenceT214 103/vmFimyyc556-632Zrl [facility] HospitalComment on above: Performed By: #### CBC #### [facility] [address] [place] [address] Dr. Peter KyleRBC5.75 106/ulNormal4.70-6.10The [facility] HospitalComment on above:Performed By: #### CBC #### [facility] [address] [address] [address] Peter KyleWBC7.8 103/ulNormal4.0-11.0The [facility] HospitalComment on above: Performed By: #### CBC #### [facility] [address] [address] [address] Peter KylePROF CHEM 8 (BAS METB)on 05-57-1768Lypbz gap [Moles/Vol]14.2 mmol/LNormalThe [facility] St. Mary HospitalComment on above:Performed By: #### BMP #### [facility] [address] [place] [address] Dr. Peter KyleCalcium [Mass/Vol]8.9 mg/dLNormal8.5-10.1[facility] Comment on above:Performed By: #### BMP #### [facility] [address] [place] [address] Dr. Peter KyleChloride [Moles/Vol]106 mmol/FBwgexz21-065Akh [facility] Comment on above:Performed By: #### BMP #### [facility] [address] [place] [address] Dr. Peter KyleCO2 [Moles/Vol]26.9 mmol/ZXihwpc67.0-32.0[facility] Comment on above:Performed By: #### BMP #### [facility] [address] [place] [address] Dr. Peter KyleCreatinine [Mass/Vol]1.03 mg/dLNormal0.70-1.30The [facility] HospitalComment on above:Performed By: #### BMP #### [facility] [address] [place] [address] Dr. Peter ChangGFR-AF HUNGARIAN>60Normal>=60The [facility] HospitalComment on above:Performed By: #### BMP #### [facility] [address] [place] [address] Dr. Peter ChangGFR-NON AF HUNGARIAN>60Normal>=60The [facility] HospitalComment on above:Performed By: #### BMP #### [facility] [address] [address] [address] Peter KyleGlucose [Mass/Vol]111 mg/dLCritically ojkw55-675Jtg [facility] [place] on above:Performed By: #### BMP #### [facility] [address] [address] [address] Peter KylePotassium [Moles/Vol]4.1 mmol/LNormal3.5-5.1 Comment on above:Performed By: #### BMP #### [facility] [address] [address] [address] Peter KyleSodium [Moles/Vol]143 mmol/CQztwev020-033Myw Comment on above:Performed By: #### BMP #### [facility] [address] [place] [address] Dr. Peter KyleUrea nitrogen [Mass/Vol]8.0 mg/dLNormal7.0-18.0Comment on above:Performed By: #### BMP #### [facility] [address] [place] [address] Dr. Peter Saba nitrogen/Creatinine [Mass ratio]7.8 mg/mgNoTriHealth Good Samaritan HospitalComment on above:Performed By: #### BMP #### [facility] [address] [place] [address] Dr. Peter KylePROTIMEon 17-09-5399DAH Coag (PPP) [Relative time]1.01 {INR} NormalComment on above:Performed By: #### PTT, PT #### [facility] [address] [place] [address] Dr. Peter Spence GUIDELINESSEE BELOWPremier Health Miami Valley Hospital NorthComment on above:Result Comment: DESIRED INR: 2.0 - 3.0 CONDITIONS NOT LISTED BELOW 2.5 - 3.5 FOR PROSTHETIC HEART VALVE REPLACEMENT 2.5 - 3.5 RECURRENT THROMBOSIS Performed By: #### PTT, PT #### [facility] [address] [place], [place] [address] Dr. Peter Escobar Coag (PPP) [Time]10.7 sNormal9.0-11.6The [facility] Comment on above:Performed By: #### PTT, PT #### [facility] [address] [place] [address] [address] [address] Peter EscobarTon 09-47-4976uLOI Coag (Bld) [Time]29.2 mExaamm17.3-36.2Comment on above:Performed By: #### PTT, PT #### [facility] [address] [place], [place] [address] Dr. Peter Roblero KIDNEYSon [id number] KIDNEYSEXAMINATION: US KIDNEYS HISTORY: Contusion of kidney [...] Electronically authenticated by: MYRA SHAFFER Date: 2022-12-14 17:38NormalThMarymount HospitalXR KUB 1 VIEWon [id number] KUB 1 VIEWEXAMINATION: XR KUB 1 VIEW [...] Electronically authenticated by: MYRA SHAFFER Date: 2022-12-14 18:10[facility] NorthAmmonium urate crystals detection in stone by infrared spectroscopyOrdered By: Patito Sweet on 80-06-3411Xjcftdlb urate crystals Infrared spectroscopy Ql (Stone)N/[facility]HealthCalcium bilirubinate measurementOrdered By: Patito Sweet on 20-02-7085Azbpcbi bilirubinate (Stone) [Mass fraction]N/[facility]HealthCalcium carbonate measurement Ordered By: Patito Sweet on 18-17-8358Llosbni carbonate (Stone) [Mass fraction]N/A [facility] Medical CenterCalcium hydrogen phosphate dihydrate/Total in StoneOrdered By: Patito Sweet on 90-23-1250Idpajfq hydrogen phosphate dihydrate (Stone) [Mass fraction]N/[facility]HealthCalcium oxalate dihydrate crystals detection in stone by infrared spectroscopyOrdered By: Patito Sweet on 96-96-9450Rjlseoo oxalate dihydrate crystals Infrared spectroscopy Ql (Stone)N/[facility]HealthCalcium oxalate monohydrate/Total in StoneOrdered By: Patito Sweet on 99-12-6547Yotjrpr oxalate monohydrate (Stone) [Mass fraction]100 %.[facility] CenterCalcium phosphate measurementOrdered By: Patito Sweet on 47-45-9281Wadodic phosphate (Stone) [Mass fraction]N/[place]HealthCalculus analysis interpretation in stoneOrdered By: Patito Sweet on 24-26-7477Dsnvfnys analysis [Interp]N/[facility]HealthCalculus analysis [Interp]See comment.[facility] Medical CenterComment on above:Calculus received wet. Wet calculi must be dried beforeanalysis, which delays reporting of results.Leaving calculiwet (such as water, saline, blood, urine) may lead tochanges in composition.Physician questions regarding Calculi Analysis contactGreenwood County HospitalCorp at: [phone].Calculi report will follow via computer, mail or courierdelivery.Calculus analysis with calculus photography interpretation in stoneOrdered By: Patito Sweet on 11-29-2022 Calculus analysis with calculus photography [Interp]See comment.[facility] Medical CenterComment on above:Photograph will follow under a separate coverCellular material measurement in stone by estimated (mass/mass)Ordered By: Patito Sweet on 19-42-5965Qpspssxs material Est (Stone) [Mass/Mass]N/[place]HealthCholesterol/Total in StoneOrdered By: Patito Sweet on 52-33-8133Gwwfoojlppt (Stone) [Mass fraction]N/[place]HealthComposition of stoneOrdered By: Patito Sweet on 78-29-4836Wbrzlfnomel Nom (Stone)See comment.[facility] CenterComment on above:Percentage (Represents the % composition)Creatinine and Glomerular filtration rate.predicted panel (S/P/Bld)Ordered By: Myra Lynne on 80-31-2361Leuyhruavu [Mass/Vol]1.11 mg/dL0.64-1.27[facility] Medical CenterCystine measurementOrdered By: Patito Sweet on 36-87-2721Ipmlvcm (Unsp spec) [Moles/Vol]N/A [facility] CenterDetermination of color of calculusOrdered By: Patito Sweet on 32-65-3212Zkirp (Stone)Brown.[facility] Estimated glomerular filtration rate (GFR) non- AmericanOrdered By: Myra Lynne on 03-05-3459HBT/1.73 sq M.predicted among non-blacks MDRD (S/P/Bld) [Vol rate/Area]> 60 mL/MinTogus Va Medical CenterHydroxyapatite [Energy Difference] in 24 hour UrineOrdered By: Patito Sweet on 11-29-2022 Hydroxyapatite (24H U) [Energy diff]/[facility] Measurement of proportion of calculus composed of dried blood (mass/mass)Ordered By: Patito Sweet on 79-51-3380Fofix.dried (Stone) [Mass fraction]N/AFirelands Regional Medical CenterNewberyite/Total in StoneOrdered By: Patito Sweet on 46-52-9947Eggnlkriqr (Stone) [Mass fraction]N/[facility] No Panel InformationOrdered By: Myra Lynne on 57-19-5625Xpizrdugt GFR ()> 60 mL/MinTogus Va Medical CenterComment on above: GFR estimated reference range: According to KDOQI guidelines, <60 ml/min/1.73m2 is sufficient todiagnose a patient with chronic kidney disease.Pharmacy Creatinine Clearance (Xnmd824.60[facility] CenterNo Panel InformationOrdered By: Patito Sweet on 95-01-5429Bqcii 2,8 DihydroxyadenineN/A [facility] Hospitaltone Analysis DisclaimerSee comment.[facility] Medical CenterComment on above:This test was developed and its performance characteristicsdetermined by [employer]. It has not been cleared or approvedby the Food and Drug Administration.Performed at: [facility] [address] [place] [address] Dr [address]jicaDurant, [place] [id number] Director: Francesco Martinez PhD, Phone: [phone] BilirubinateN/[facility] Hospitaltone Calcium PalmitateN/[facility] Hospitaltone Calcium StearateN/[facility] Hospitaltone Carbonate ApatiteN/[facility] Hospitaltone Drug or MetaboliteN/[facility] Hospitaltone Other ConstituentN/[facility] Hospitaltone Xanthine N/[facility]ina Hospitalerum or plasma anion gap determination Ordered By: Myra Lynne on 27-30-3399Gqhyv gap [Moles/Vol]12.4 mmol/L6.0-15.0 [facility] Hospitalerum or plasma calcium measurement (mass/volume)Ordered By: Myra Lynne on 85-73-7378Fssrnqu [Mass/Vol]8.9 mg/dL 8.2-10.2FDunlap Memorial Hospitalerum or plasma chloride measurement (moles/volume)Ordered By: Myra Lynne on 11-35-9568Ddtvtsnn [Moles/Vol]106 mmol/M75-817GkpswyrpdLancaster Municipal Hospitalerum or plasma glucose measurement (mass/volume)Ordered By: Myra Lynne on 09-88-0401Xrlrafr [Mass/Vol]111 mg/dL 70-100[facility] Medical CenterComment on above:ADA recommended reference rangeRandom Glucose Reference Range is dependent on time and content of last meal. Glucose of more than 200 mg/dL in a nonstressed, ambulatory subject supports the diagnosisof Diabetes Mellitus.Serum or plasma potassium measurement (moles/volume)Ordered By: Myra Lynne on 16-60-0759Swzkbgssq [Moles/Vol]3.8 mmol/L3.5-5.1FDunlap Memorial Hospitalerum or plasma sodium measurement (moles/volume)Ordered By: Myra Lynne on 85-01-9524Vyggth [Moles/Vol]140 mmol/M112-736XynjoshhlLancaster Municipal Hospitalerum or plasma total carbon dioxide measurement (moles/volume)Ordered By: Myra Lynne on 57-41-9578XX4 [Moles/Vol]25.4 mmol/L22.0-30.0[facility] Serum or plasma urea nitrogen measurement (mass/volume)Ordered By: Myra Lynne on 19-26-3681Qitk nitrogen [Mass/Vol]8 mg/dL9-23L[facility] Hospitalize [Entitic volume] of StoneOrdered By: Patito Sweet on 50-05-6862Ostg (Stone) [Entitic vol]3x4 mm.[facility] Medical CenterComment on above: Multiple pieces received. Dimensions of the largest piecereported.Sodium urate crystals detection in stone by infrared spectroscopyOrdered By: Patito Sweet on 64-04-9660Fexwmp urate crystals Infrared spectroscopy Ql (Stone)[facility] Hospitalpecimen source subject [Type]Ordered By: Patito Sweet on 25-83-2710Mmjxvlgk source subject NomSee comment.[facility] Medical CenterComment on above:Left KidneyTriamterene measurement in calculusOrdered By: Patito Sweet on 47-88-7940Zradqqlfybh (Stone) [Mass fraction][facility] HospitalTriple phosphate/Total in StoneOrdered By: Patito Sweet on 11-29-2022 Triple phosphate (Stone) [Mass fraction][facility]ultman HospitalUric acid dihydrate crystals detection in stone by infrared spectroscopyOrdered By: Patito Sweet on 21-14-8880Rejgs dihydrate crystals Infrared spectroscopy Ql (Stone) N/AFMemorial HospitalActivated partial thromboplastin time (aPTT) in platelet poor plasma by coagulation aOrdered By: Patito Sweet on 78-92-6605aACE Coag (PPP) [Time]26.1 s25.1-36.5FMemorial HospitalAerobic culture Ordered By: Patito Sweet on 51-59-2963Ishxlaab identified Aer cx Nom (Unsp spec)No Growth 2 [facility] HospitalBacteria identified Aer cx Nom (Unsp spec)No Growth 2 [facility] HospitalAnaerobic culture Ordered By: Patito Sweet on 25-40-8869Qxvtxetr identified Anaer cx Nom (Unsp spec) No Anaerobes Isolated 3 [facility] HospitalBacteria identified Anaer cx Nom (Unsp spec)No Anaerobes Isolated 3 [facility] HospitalGram stain for investigation of transfusion reactionOrdered By: Patito Sweet on 93-12-7444Mlltkhofodu observation Gram stain Nom (Unsp spec)[facility] CenterMicroscopic observation Gram stain Nom (Unsp spec) [facility] CenterLaboratory - CoagulationOrdered By: Patito Sweet on 25-93-0897TX Coag (PPP) [Time]12.5 s9.0-12.9[facility] Platelet poor plasma international normalized ratio (INR) by coagulation assay (relatOrdered By: Patito Sweet on 83-69-0691UYO Coag (PPP) [Relative time]1.1 {INR} [facility] Medical CenterComment on above:INR Therapeutic Range A) Pre- and [...] (Bld) [#/Vol] Ordered By: Patito Sweet on 08-92-4966Jsumepmyu (Bld) [#/Vol]268 10*3/mW070-759 [facility] Medical CenterCBC AUTO DIFFon 61-28-3605RDIG #0.1 103/ul Normal0.0-0.1The [facility] HospitalComment on above:Performed By: #### CBC #### [facility] [address] [address] [address] Peter KyleBasophils/100 WBC (Bld)0.6 %Normal0.2-2.0[facility] Comment on above:Performed By: #### CBC #### [facility] [address] [address] [address] Peter Plaza #0.2 103/ulNormal0.0-0.7The [facility] HospitalComment on above: Performed By: #### CBC #### [facility] [address] [place] [address] Dr. Peter Changosinophils/100 WBC (Bld)2.0 %Normal0.9-7.0[facility] Comment on above:Performed By: #### CBC #### [facility] [address] [address] [address] Peter Changrythrocyte distribution width (RBC) [Ratio]15.9 %Critically high 11.0-15.0The [facility] HospitalComment on above:Performed By: #### CBC #### [facility] [address] [place] [address] Dr. Peter KyleHematocrit (Bld) [Volume fraction]37.0 %Critically low42.0-54.[address] [facility] HospitalComment on above:Performed By: #### CBC #### [facility] [address] [address] [address] Peter KyleHemoglobin (Bld) [Mass/Vol]11.9 g/dLCritically low14.0-18.0The [facility] HospitalComment on above:Performed By: #### CBC #### [facility] [address] [place] [address] Dr. Peter Ferguson #0.06 10e3/ulCritically high0.00-0.03[facility] Comment on above:Performed By: #### CBC #### [facility] [address] [address] [address] Peter Ferguson %0.6 %Critically high0.0-0.5The [facility] HospitalComment on above:Performed By: #### CBC #### [facility] [address] [address] [address] Peter Barnard #2.5 103/ulNormal1.2-3.8The [facility] HospitalComment on above:Performed By: #### CBC #### [facility] [address] [place] [address] Dr. Peter Gaminohocytes/100 WBC (Bld)25.7 %Wlghpd67.5-60.0The [facility] HospitalComment on above:Performed By: #### CBC #### [facility] [address] [place] [address] Dr. Peter Sanchez DIFF REQNONormalThe [facility] St. Mary HospitalComment on above: Performed By: #### CBC #### [facility] [address] [place] [address] Dr. Peter Bhagat (RBC) [Entitic mass]24.3 pgCritically low25.9-34.0The [facility] HospitalComment on above:Performed By: #### CBC #### [facility] [address] [place] [address] Dr. Peter Medina (RBC) [Mass/Vol]32.2 g/rJZjcfsm30.9-35.2The [facility] HospitalComment on above:Performed By: #### CBC #### [facility] [address] [place] [address] Dr. Peter Medina (RBC) [Entitic vol]75.5 fLCritically low80.0-94.0The [facility] HospitalComment on above:Performed By: #### CBC #### [facility] [address] [place] [address] Dr. Peter Obando #0.9 103/ulCritically high0.3-0.8[facility] Comment on above:Performed By: #### CBC #### [facility] [address] [address] [address] Peter Cervantesocytes/100 WBC (Bld)9.2 %Normal1.7-12.0[facility] Comment on above:Performed By: #### CBC #### [facility] [address] [place] [address] Dr. Peter EscalanteUT #5.9 103/ulNormal1.4-6.5The [facility] HospitalComment on above:Performed By: #### CBC #### [facility] [address] [place] [address] Dr. Peter Escalanteutrophils/100 WBC (Bld)61.9 %Fwywii46.0-75.0The [facility] HospitalComment on above:Performed By: #### CBC #### [facility] [address] [place] [address] Dr. Peter KylePlatelet mean volume (Bld) [Entitic vol]8.7 fLCritically low 9.5-13.5The [facility] HospitalComment on above:Performed By: #### CBC #### [facility] [address] [place] [address] Dr. Peter KylePLT276 103/hnOmwwnk836-283Xzm [facility] HospitalComment on above: Performed By: #### CBC #### [facility] [address] [place] [address] Dr. Peter KyleRBC4.90 106/ulNormal4.70-6.10The [facility] HospitalComment on above:Performed By: #### CBC #### [facility] [address] [place] [address] Dr. Peter KyleWBC9.6 103/ulNormal4.0-11.0The [facility] HospitalComment on above: Performed By: #### CBC #### [facility] [address] [place] [address] Dr. Peter Roblero KIDNEYSon [id number] KIDNEYSEXAM: Renal ultrasound: HISTORY: Gross hematuria. History [...] Electronically authenticated by: LIMA CAMPOS Date: 2022-10-21 13:25[facility] NorthUS KIDNEYSon [id number] KIDNEYSEXAMINATION: US KIDNEYS HISTORY: Kidney stone ; [...] Electronically authenticated by: RIVAS KINCAID Date: 2022-10-06 07:41[facility] NorthXR KUB 1 VIEWon [id number] KUB 1 VIEWEXAMINATION: XR KUB 1 VIEW [...] Electronically authenticated by: RIVAS KINCAID Date: 2022-10-06 07:28[facility] NorthBasophils Auto (Bld) [#/Vol]Ordered By: Ulises Barron on 01-88-5848Xphrnlfxb (Bld) [#/Vol]0.1 10*3/uL0.0-0.2FMemorial HospitalBasophils/100 WBC Auto (Bld)Ordered By: Ulises Barron on 09-30-2022 Basophils/100 WBC (Bld)0.8 %.[facility] CenterCreatinine and Glomerular filtration rate.predicted panel (S/P/Bld)Ordered By: Ulises Barron on 02-18-0495Xxzxhdumjr [Mass/Vol]1.08 mg/dL0.64-1.27[facility] Medical CenterEosinophils Auto (Bld) [#/Vol]Ordered By: Ulises Barron on 09-30-2022 Eosinophils (Bld) [#/Vol]0.2 10*3/uL0.0-0.45[facility] Eosinophils/100 WBC Auto (Bld)Ordered By: Ulises Barron on 09-30-2022 Eosinophils/100 WBC (Bld)2.5 %.[facility] Medical CenterErythrocyte distribution width Auto (RBC) [Ratio]Ordered By: Ulises Barron on 09-30-2022 Erythrocyte distribution width (RBC) [Ratio]17.3 %12.0-14.8[facility] Medical CenterEstimated glomerular filtration rate (GFR) non- Ordered By: Ulises Barron on 17-21-5316ZSZ/1.73 sq M.predicted among non-blacks MDRD (S/P/Bld) [Vol rate/Area]> 60 mL/MinTogus Va Medical Center Hematocrit Auto (Bld) [Volume fraction]Ordered By: Ulises Barron on 09-30-2022 Hematocrit (Bld) [Volume fraction]34.3 %38.8-50.0[facility] Medical CenterHemoglobin [Mass/volume] in BloodOrdered By: Ulises Barron on 09-30-2022 Hemoglobin (Bld) [Mass/Vol]10.9 g/dL13.0-17.0[facility] Leukocytes [#/volume] corrected for nucleated erythrocytes in Blood by Automated counOrdered By: Ulises Barron on 28-37-7360RCE corrected for nucl RBC Auto (Bld) [#/Vol]7.6 10*3/uL4.1-10.5FMemorial HospitalLymphocytes Auto (Bld) [#/Vol]Ordered By: Ulises Barron on 90-85-4406Wnaaifeoobr (Bld) [#/Vol]1.8 10*3/uL1.00-4.8[facility] Va Medical CenterLymphocytes/100 WBC Auto (Bld) Ordered By: Ulises Barron on 14-20-1881Ssoostnlgsd/100 WBC (Bld)23.4 %.[facility] Va Medical CenterMCH Auto (RBC) [Entitic mass]Ordered By: Ulises Barron on 46-01-8124NIJ (RBC) [Entitic mass]24.3 pg27.5-35.2FMemorial HospitalMCHC Auto (RBC) [Mass/Vol]Ordered By: Ulises Barron on 12-60-0515OEWE (RBC) [Mass/Vol]31.7 g/dL32.5-35.6FMemorial HospitalMCV Auto (RBC) [Entitic vol]Ordered By: Ulises Barron on 41-07-2347YBE (RBC) [Entitic vol]76.6 fL 83.5-101[facility] Medical CenterMonocytes Auto (Bld) [#/Vol]Ordered By: Ulises Barron on 01-22-0910Uawsnrari (Bld) [#/Vol]0.8 10*3/uL0.0-0.8[facility] Medical CenterMonocytes/100 WBC Auto (Bld)Ordered By: Ulises Barron on 25-86-6698Oywesbzjk/100 WBC (Bld)10.4 %.[facility] Neutrophils Auto (Bld) [#/Vol]Ordered By: Ulises Barron on 12-64-1137Nzpramvxorl (Bld) [#/Vol]4.8 10*3/uL1.8-7.7FMemorial HospitalNeutrophils/100 WBC Auto (Bld)Ordered By: Ulises Barron on 24-32-4454Zzdfvlnzpny/100 WBC (Bld)62.9 %.[facility] CenterNo Panel InformationOrdered By: Ulises Barron on 90-89-5880Hrevrfcsu GFR ()> 60 mL/MinTogus Va Medical CenterComment on above:GFR estimated reference range: According to KDOQI guidelines, <60 ml/min/1.73m2 is sufficient todiagnose a patient with chronic kidney disease.Pharmacy Creatinine Clearance (Wctd763.07[facility] Medical CenterNucleated erythrocytes [Presence] in Blood by Automated count Ordered By: Ulises Barron on 49-91-8856Mzweeqlry RBC Auto Ql (Bld)0.1 /100{WBC} 0-0.5FMemorial HospitalPlatelet mean volume Auto (Bld) [Entitic vol]Ordered By: Ulises Barron on 28-90-5966Orkkzuwh mean volume (Bld) [Entitic vol] 6.6 fL6.6-10.1FMemorial HospitalPlatelets Auto (Bld) [#/Vol] Ordered By: Ulises Barron on 47-02-3860Jjptupwgp (Bld) [#/Vol]225 10*3/kP009-296 [facility] Medical CenterRBC Auto (Bld) [#/Vol]Ordered By: Ulises Barron on 32-94-8727RHL (Bld) [#/Vol]4.47 10*6/uL3.90-5.60[facility] Hospitalerum or plasma anion gap determinationOrdered By: Ulises Barron on 21-85-2924Bgddj gap [Moles/Vol]11.2 mmol/L6.0-15.0[facility] Hospitalerum or plasma calcium measurement (mass/volume)Ordered By: Ulises Anderson on 67-06-3586Uoytgjd [Mass/Vol]8.7 mg/dL8.2-10.2FMemorial Hospital Serum or plasma chloride measurement (moles/volume)Ordered By: Ulises Anderson on 82-31-4672Gljxkzda [Moles/Vol]104 mmol/C65-849QdiluykipTogus Va Medical Center Serum or plasma glucose measurement (mass/volume)Ordered By: Ulises Barron on 02-82-9318Jpcvhnq [Mass/Vol]98 mg/bZ58-746HzulgrozlTogus Va Medical Center Comment on above:ADA recommended reference rangeRandom Glucose Reference Range is dependent on time and content of last meal. Glucose of more than 200 mg/dL in a nonstressed, ambulatory subject supports the diagnosisof Diabetes Mellitus. Serum or plasma potassium measurement (moles/volume)Ordered By: Ulises Barron on 21-40-5273Waytftluk [Moles/Vol]3.9 mmol/L3.5-5.1FDunlap Memorial Hospitalerum or plasma sodium measurement (moles/volume)Ordered By: Ulises Barron on 30-18-1693Jocfio [Moles/Vol]137 mmol/M138-118SzqvlqaxoTogus Va Medical Center Serum or plasma total carbon dioxide measurement (moles/volume)Ordered By: Ulises Barron on 89-65-4534RZ8 [Moles/Vol]25.7 mmol/L22.0-30.0[facility] Hospitalerum or plasma urea nitrogen measurement (mass/volume)Ordered By: Ulises Barron on 42-56-9263Irnf nitrogen [Mass/Vol]9 mg/dL9-23[facility] CenterWBC Auto (Bld) [#/Vol]Ordered By: Ulises Barron on 45-30-6673WEV (Bld) [#/Vol]7.6 10*3/uL4.1-10.5FMemorial HospitalBNPon 09-29-2022 Natriuretic peptide B (Bld) [Mass/Vol]89.0 pg/mLNormal<=900.0The [facility] Mary HospitalComment on above:Performed By: #### CBC #### [facility] [address] [place], [place] [address] Dr. Peter PUCKETT ADMITon 17-17-4827FV [Catalytic activity/Vol]94 U/L Ezqyqz66-601Cwo [facility] Mary HospitalComment on above:Performed By: #### CBC #### [facility] [address] [place], [place] [address] Dr. Peter Rivera.MB [Mass/Vol]1.55 ng/mLNormal<=3.60[facility] Comment on above:Performed By: #### CBC #### [facility] [address] [place] [address] Dr. Peter KyleHSTROP12.0 pg/mLNormal4.0-76.1[facility] Campusment on above:Result Comment: CUT-OFF POINTS HAVE BEEN ESTABLISHED BASED ON THE FOURTH UNIVERSAL DEFINITIONS OF MYOCARDIAL INFARCTION. THE UPPER REFERENCE LIMIT (URL) OF TROPONIN, DEFINED THE 99TH PERCENTILE OF cTnI DISTRIBUTION IN A REFERENCE POPULATION, HAS BEEN CONFIRMED THE DECISION THRESHOLD FOR [place] DIAGNOSIS.Performed By: #### CBC #### [facility] [address] [place] [address] Dr. Peter Charles64 ng/sQNyrjjo26-28PcxComment on above: Performed By: #### CBC #### [facility] [address] [place] [address] Dr. Peter Bates AUTO DIFFon 52-71-8067ZJZN #0.1 103/ulNormal0.0-0.1The [facility] Mary HospitalComment on above:Performed By: #### CBC #### [facility] [address] [place] [address] Dr. Peter KyleBasophils/100 WBC (Bld)0.7 %Normal0.2-2.0 Comment on above:Performed By: #### CBC #### [facility] [address] [place] [address] Dr. Peter Plaza #0.2 103/ulNormal0.0-0.7The [facility] Mary HospitalComment on above: Performed By: #### CBC #### [facility] [address] [place] [address] Dr. Peter Changosinophils/100 WBC (Bld)2.8 %Normal0.9-7.0 Comment on above:Performed By: #### CBC #### [facility] [address] [place] [address] Dr. Peter Changrythrocyte distribution width (RBC) [Ratio]16.3 %Critically high 11.0-15.0The [facility] Mary HospitalComment on above:Performed By: #### CBC #### [facility] [address] [place] [address] Dr. Peter KyleHematocrit (Bld) [Volume fraction]34.3 %Critically low42.0-54.[address] [facility] HospitalComment on above:Performed By: #### CBC #### [facility] [address] [place] [address] Dr. Peter KyleHemoglobin (Bld) [Mass/Vol]10.7 g/dLCritically low14.0-18.0The [facility] HospitalComment on above:Performed By: #### CBC #### [facility] [address] [place] [address] Dr. Peter Ferguson #0.08 10e3/ulCritically high0.00-0.03The [facility] Comment on above:Performed By: #### CBC #### [facility] [address] [place] [address] Dr. Peter Ferguson %1.1 %Critically high0.0-0.5The [facility] HospitalComment on above:Performed By: #### CBC #### [facility] [address] [place] [address] Dr. Peter Barnard #1.9 103/ulNormal1.2-3.8The [facility] HospitalComment on above:Performed By: #### CBC #### [facility] [address] [place] [address] Dr. Peter Gaminohocytes/100 WBC (Bld)24.8 %Loemsk91.5-60.0Comment on above:Performed By: #### CBC #### [facility] [address] [place] [address] Dr. Peter BanerjeeUAL DIFF REQNONormalThe [facility] St. Mary HospitalComment on above: Performed By: #### CBC #### [facility] [address] [place] [address] Dr. Peter Bhagat (RBC) [Entitic mass]24.5 pgCritically low25.9-34.0The [facility] HospitalComment on above:Performed By: #### CBC #### [facility] [address] [place] [address] Dr. Peter Medina (RBC) [Mass/Vol]31.2 g/jGLwxqnd92.9-35.2The [facility] HospitalComment on above:Performed By: #### CBC #### [facility] [address] [place] [address] Dr. Peter Medina (RBC) [Entitic vol]78.5 fLCritically low80.0-94.0The [facility] HospitalComment on above:Performed By: #### CBC #### [facility] [address] [place] [address] Dr. Peter Obando #0.8 103/ulNormal0.3-0.8The [facility] HospitalComment on above:Performed By: #### CBC #### [facility] [address] [place] [address] Dr. Peter Cervantesocytes/100 WBC (Bld)10.0 %Normal1.7-12.0The [facility] Comment on above:Performed By: #### CBC #### [facility] [address] [place] [address] Dr. Peter Calloway #4.6 103/ulNormal1.4-6.5The [facility] HospitalComment on above:Performed By: #### CBC #### [facility] [address] [place] [address] Dr. Peter Stapletonophils/100 WBC (Bld)60.6 %Skervn99.0-75.0The [facility] HospitalComment on above:Performed By: #### CBC #### [facility] [address] [place] [address] Dr. Peter Adenlet mean volume (Bld) [Entitic vol]8.3 fLCritically low 9.5-13.5The [facility] HospitalComment on above:Performed By: #### CBC #### [facility] [address] [place] [address] Dr. Peter KylePLT203 103/dpTjgzuy042-944Gbr [facility] HospitalComment on above: Performed By: #### CBC #### [facility] [address] [place] [address] Dr. Peter KyleRBC4.37 106/ulCritically low4.70-6.10The [facility] HospitalComment on above:Performed By: #### CBC #### [facility] [address] [place] [address] [address] Peter KyleWBC7.6 103/ulNormal4.0-11.0The [facility] HospitalComment on above: Performed By: #### CBC #### [facility] [address] [place] [address] Dr. Peter KyleCT ABD/PELVIS WO CONon 04-14-8070LQ ABD/PELVIS WO CONEXAMINATION: CT ABD/PELVIS WO CON [...] Electronically authenticated by: RIVAS KINCAID Date: 2022-09-29 07:04[facility] NorthFR THYROXINE INDEX T7on 79-20-9806GGN4.93Jbeiur8.30-4.50The [facility] HospitalComment on above:Performed By: #### CBC #### [facility] [address] [place] [address] [address] Peter KyleT3U33.0 %Whwrms34.0-40.0The [facility] HospitalComment on above: Performed By: #### CBC #### [facility] [address] [place] [address] [address] Peter KyleT4 [Mass/Vol]6.50 ug/dLNormal4.50-12.10The [facility] Comment on above:Performed By: #### CBC #### [facility] [address] [place] [address] [address] Peter KylePROF 14(COMP METB)on 76-60-4535Qamspvs [Mass/Vol]3.4 g/dLNormal 3.4-5.0The [facility] HospitalComment on above:Performed By: #### CBC #### [facility] [address] [place] [address] [address] Peter KyleAlbumin/Globulin [Mass ratio]0.9 {ratio}NormalThe [facility] St. Mary HospitalComment on above:Performed By: #### CBC #### [facility] [address] [place] [address] [address] Peter Argueta [Catalytic activity/Vol]64 U/ECemmet10-976Qds [facility] HospitalComment on above:Performed By: #### CBC #### [facility] [address] [place] [address] [address] Peter Gold [Catalytic activity/Vol]14 U/LCritically iwb05-38Tho [facility] HospitalComment on above:Performed By: #### CBC #### [facility] [address] [place] [address] Dr. Peter Rojason gap [Moles/Vol]9.6 mmol/LNormalThe [facility] St. Mary HospitalComment on above:Performed By: #### CBC #### [facility] [address] [place] [address] Dr. Peter KyleAST [Catalytic activity/Vol]15 U/CMzbwob32-17Suk [facility] Avonment on above:Performed By: #### CBC #### [facility] [address] [place] [address] [address] Peter KyleBilirubin [Mass/Vol]0.5 mg/dLNormal0.2-1.0The [facility] Comment on above:Performed By: #### CBC #### [facility] [address] [place] [address] [address] Peter KyleCalcium [Mass/Vol]8.5 mg/dLNormal8.5-10.1The [facility] Comment on above:Performed By: #### CBC #### [facility] [address] [place] [address] [address] Peter KyleChloride [Moles/Vol]105 mmol/AEvajii38-207Sgb [facility] Comment on above:Performed By: #### CBC #### [facility] [address] [place] [address] [address] Peter KyleCO2 [Moles/Vol]29.4 mmol/BXvgdhn59.0-32.0The [facility] Comment on above:Performed By: #### CBC #### [facility] [address] [place] [address] [address] Peter KyleCreatinine [Mass/Vol]1.17 mg/dLNormal0.70-1.30The [facility] HospitalComment on above:Performed By: #### CBC #### [facility] [address] [place] [address] [address] Peter ChangGFR-AF HUNGARIAN>60Normal>=60The [facility] HospitalComment on above:Performed By: #### CBC #### [facility] [address] [place] [address] [address] Peter ChangGFR-NON AF HUNGARIAN>60Normal>=60Comment on above:Performed By: #### CBC #### [facility] [address] [place] [address] [address] Peter KyleGlobulin (S) [Mass/Vol]4.0 g/dLNormalThe [facility] St[facility] HospitalComment on above:Performed By: #### CBC #### [facility] [address] [place] [address] [address] Peter KyleGlucose [Mass/Vol]89 mg/lMKcwncr90-077Kpr Comment on above:Performed By: #### CBC #### [facility] [address] [place] [address] [address] Peter KylePotassium [Moles/Vol]4.0 mmol/LNormal3.5-5.1The [facility] Comment on above:Performed By: #### CBC #### [facility] [address] [place] [address] [address] Peter KyleProtein [Mass/Vol]7.4 g/dLNormal6.4-8.2The [facility] Comment on above:Performed By: #### CBC #### [facility] [address] [place] [address] [address] Peter KyleSodium [Moles/Vol]140 mmol/YRyaqbo261-956Ahn Comment on above:Performed By: #### CBC #### [facility] [address] [place] [address] Dr. Peter KyleUrea nitrogen [Mass/Vol]12.0 mg/dLNormal7.0-18.0[facility] on above:Performed By: #### CBC #### [facility] [address] [place] [address] Dr. Peter KyleUrea nitrogen/Creatinine [Mass ratio]10.3 mg/mgNormalThe [facility] St[facility] HospitalComment on above:Performed By: #### CBC #### [facility] [address] [place] [address] Dr. Peter KyleTSHon 06-15-7300SXZ5.129 uIU/mLNormal0.358-3.740The [facility] HospitalComment on above:Performed By: #### CBC #### [facility] [address] [place] [address] Dr. Peter KyleHEMOGLOBIN AND HEMATOCRITon 15-76-5871Ihyeobziob (Bld) [Volume fraction]34.1 %Critically low42.0-54.0The [facility] HospitalComment on above: Performed By: #### HGBHCT #### [facility] [address] [place] [address] Dr. Peter KyleHemoglobin (Bld) [Mass/Vol]10.8 g/dLCritically low14.0-18.0The [facility] HospitalComment on above:Performed By: #### HGBHCT #### [facility] [address] [place] [address] Dr. Peter KyleINSULINon 00-75-4447Ahvxnfs96.7 uIU/mLCritically high2.6-24.9The [facility] HospitalComment on above:Performed By: #### CBC #### [facility] [address] [place] [address] Dr. Peter KyleCBC AUTO DIFFon 25-50-8423MKHX #0.1 103/ulNormal0.0-0.1The [facility] HospitalComment on above:Performed By: #### PTT, PT #### [facility] [address] [place] [address] [address] Peter KyleBasophils/100 WBC (Bld)0.5 %Normal0.2-2.0The [facility] Comment on above:Performed By: #### PTT, PT #### [facility] [address] [place] [address] Dr. Peter Plaza #0.3 103/ulNormal0.0-0.7The [facility] HospitalComment on above: Performed By: #### PTT, PT #### [facility] [address] [place] [address] Dr. Peter Changosinophils/100 WBC (Bld)3.3 %Normal0.9-7.0The [facility] Comment on above:Performed By: #### PTT, PT #### [facility] [address] [place] [address] Dr. Peter Changrythrocyte distribution width (RBC) [Ratio]14.7 %Ggrwnz26.0-15.[address] [facility] HospitalComment on above:Performed By: #### PTT, PT #### [facility] [address] [place] [address] Dr. ePter KyleHematocrit (Bld) [Volume fraction]33.4 %Critically low42.0-54.[address] [facility] HospitalComment on above:Performed By: #### PTT, PT #### [facility] [address] [place] [address] Dr. Peter KyleHemoglobin (Bld) [Mass/Vol]10.6 g/dLCritically low14.0-18.0The [facility] HospitalComment on above:Performed By: #### PTT, PT #### [facility] [address] [place] [address] Dr. Peter Ferguson #0.14 10e3/ulCritically high0.00-0.03The [facility] Comment on above:Performed By: #### PTT, PT #### [facility] [address] [place] [address] Dr. Peter Ferguson %1.5 %Critically high0.0-0.5The [facility] HospitalComment on above:Performed By: #### PTT, PT #### [facility] [address] [place] [address] Dr. Peter Barnard #2.0 103/ulNormal1.2-3.8The [facility] HospitalComment on above:Performed By: #### PTT, PT #### [facility] [address] [place] [address] Dr. Peter Gaminohocytes/100 WBC (Bld)21.8 %Dsrhzg45.5-60.0The [facility] HospitalComment on above:Performed By: #### PTT, PT #### [facility] [address] [place] [address] Dr. Peter Sanchez DIFF REQNONormalThe [facility] St. Mary HospitalComment on above: Performed By: #### PTT, PT #### [facility] [address] [place] [address] Dr. Peter Bhagat (RBC) [Entitic mass]24.8 pgCritically low25.9-34.0The [facility] HospitalComment on above:Performed By: #### PTT, PT #### [facility] [address] [place] [address] Dr. Peter Sifuentes (RBC) [Mass/Vol]31.7 g/eUKusjur30.9-35.2The [facility] HospitalComment on above:Performed By: #### PTT, PT #### [facility] [address] [place] [address] Dr. Peter Townsend (RBC) [Entitic vol]78.0 fLCritically low80.0-94.0The [facility] HospitalComment on above:Performed By: #### PTT, PT #### [facility] [address] [place] [address] Dr. Peter Obando #0.8 103/ulNormal0.3-0.8The [facility] HospitalComment on above:Performed By: #### PTT, PT #### [facility] [address] [place] [address] Dr. Yilan ChangMonocytes/100 WBC (Bld)8.6 %Normal1.7-12.0The [facility] Comment on above:Performed By: #### PTT, PT #### [facility] [address] [place] [address] Dr. Peter EscalanteUT #5.9 103/ulNormal1.4-6.5The [facility] HospitalComment on above:Performed By: #### PTT, PT #### [facility] [address] [place] [address] Dr. Peter Escalanteutrophils/100 WBC (Bld)64.3 %Phmlrt78.0-75.0The [facility] HospitalComment on above:Performed By: #### PTT, PT #### [facility] [address] [place] [address] Dr. Peter KylePlategigi mean volume (Bld) [Entitic vol]8.1 fLCritically low 9.5-13.5The [facility] HospitalComment on above:Performed By: #### PTT, PT #### [facility] [address] [place] [address] Dr. Peter FlorenceT309 103/khAbluca706-845Ahw [facility] HospitalComment on above: Performed By: #### PTT, PT #### [facility] [address] [place] [address] Dr. Peter KyleRBC4.28 106/ulCritically low4.70-6.10The [facility] HospitalComment on above:Performed By: #### PTT, PT #### [facility] [address] [place] [address] Dr. Peter KyleWBC9.2 103/ulNormal4.0-11.0The [facility] HospitalComment on above: Performed By: #### PTT, PT #### [facility] [address] [place] [address] Dr. Peter Fraire THYROXINE INDEX T7on 20-20-4249LSJ7.22Fkutpi6.30-4.50The [facility] HospitalComment on above:Performed By: #### TSH, T7, CMP #### [facility] [address] [place] [address] [address] Peter KyleT3U34.0 %Dnqdbd46.0-40.0The [facility] HospitalComment on above: Performed By: #### TSH, T7, CMP #### [facility] [address] [place] [address] Dr. Peter KyleT4 [Mass/Vol]5.20 ug/dLNormal4.50-12.10The [facility] Comment on above:Performed By: #### TSH, T7, CMP #### [facility] [address] [place] [address] Dr. Peter KyleGLYCOHEMOGLOBIN A1Con 48-65-0150JRW RECOMMENDATIONSEE BELOWNormal The [facility] HospitalComment on above:Result Comment: ADA RECOMMENDED LIMIT 4.0 - 6.0 ADA THERAPEUTIC TARGET < 7.0 ACTION SUGGESTED > 7.0Performed By: #### CBC #### [facility] [address] [place] [address] Dr. Peter KyleGlucose [Mass/Vol]126 mg/dLNormalThe [facility] St[facility] HospitalComment on above:Performed By: #### CBC #### [facility] [address] [place] [address] Dr. Peter KyleHbA1c (Bld) [Mass fraction]6.0 %Normal4.5-6.2The [facility] HospitalComment on above:Performed By: #### CBC #### [facility] [address] [place] [address] Dr. Peter KylePROF 14(COMP METB)on 02-88-0231Ierpnxn [Mass/Vol]3.3 g/dL Critically low3.4-5.0The [facility] HospitalComment on above:Performed By: #### TSH, T7, CMP #### [facility] [address] [place] [address] Dr. Peter KyleAlbumin/Globulin [Mass ratio]0.8 {ratio}NormalThe [facility] St. [facility] HospitalComment on above:Performed By: #### TSH, T7, CMP #### [facility] [address] [place] [address] [address] Peter MattP [Catalytic activity/Vol]71 U/BFzjhrt98-356Nva [facility] HospitalComment on above:Performed By: #### TSH, T7, CMP #### [facility] [address] [place] [address] Dr. Peter MattT [Catalytic activity/Vol]12 U/LCritically vdw04-04Iun [facility] HospitalComment on above:Performed By: #### TSH, T7, CMP #### [facility] [address] [place] [address] Dr. Peter Rojason gap [Moles/Vol]11.4 mmol/LNormal Comment on above:Performed By: #### TSH, T7, CMP #### [facility] [address] [place] [address] Dr. Peter KyleAST [Catalytic activity/Vol]12 U/LCritically eas50-41Hfw [facility] HospitalComment on above:Performed By: #### TSH, T7, CMP #### [facility] [address] [place] [address] Dr. Peter KyleBilirubin [Mass/Vol]0.4 mg/dLNormal0.2-1.0 Comment on above:Performed By: #### TSH, T7, CMP #### [facility] [address] [place] [address] Dr. Peter KyleCalcium [Mass/Vol]8.6 mg/dLNormal8.5-10.1 Comment on above:Performed By: #### TSH, T7, CMP #### [facility] [address] [place] [address] Dr. Peter KyleChloride [Moles/Vol]106 mmol/WQjxbgu73-935Dat [facility] Comment on above:Performed By: #### TSH, T7, CMP #### [facility] [address] [place] [address] Dr. Peter KyleCO2 [Moles/Vol]25.9 mmol/NSpkqlf53.0-32.0The [facility] Comment on above:Performed By: #### TSH, T7, CMP #### [facility] [address] [place] [address] [address] Peter KyleCreatinine [Mass/Vol]1.22 mg/dLNormal0.70-1.30The [facility] HospitalComment on above:Performed By: #### TSH, T7, CMP #### [facility] [address] [address] [address] Peter ChangGFR-AF HUNGARIAN>60Normal>=60The [facility] HospitalComment on above:Performed By: #### TSH, T7, CMP #### [facility] [address] [address] [address] Peter ChangGFR-NON AF HUNGARIAN>60Normal>=60The [facility] HospitalComment on above:Performed By: #### TSH, T7, CMP #### [facility] [address] [address] [address] Peter KyleGlobulin (S) [Mass/Vol]4.2 g/dLNormalThe [facility] HospitalComment on above:Performed By: #### TSH, T7, CMP #### [facility] [address] [address] [address] Peter KyleGlucose [Mass/Vol]111 mg/dLCritically pcdx32-922[facility] on above:Performed By: #### TSH, T7, CMP #### [facility] [address] [address] [address] Peter KylePotassium [Moles/Vol]4.3 mmol/LNormal3.5-5.1The [facility] Comment on above:Performed By: #### TSH, T7, CMP #### [facility] [address] [address] [address] Peter KyleProtein [Mass/Vol]7.5 g/dLNormal6.4-8.2The [facility] Comment on above:Performed By: #### TSH, T7, CMP #### [facility] [address] [address] [address] Peter KyleSodium [Moles/Vol]139 mmol/ZPgtmvj973-960Kxn [facility] Comment on above:Performed By: #### TSH, T7, CMP #### [facility] [address] [address] [address] Peter Saba nitrogen [Mass/Vol]8.0 mg/dLNormal7.0-18.0The [facility] HospitalComment on above:Performed By: #### TSH, T7, CMP #### [facility] [address] [address] [address] Peter Saba nitrogen/Creatinine [Mass ratio]6.6 mg/mgNoTriHealth Good Samaritan HospitalComment on above:Performed By: #### TSH, T7, CMP #### [facility] [address] [address] [address] Peter Cervantes 13-09-7757DQZ2.857 uIU/mLNormal0.358-3.740The [facility] St. Mary HospitalComment on above:Performed By: #### STEVE, T7, CMP #### [facility] [address] [place] [address] Dr. Peter KyleXR KUB 1 VIEWon 26-33-8857YW KUB 1 VIEWEXAMINATION: XR KUB 1 VIEW [...] Electronically authenticated by: RIVAS KINCAID Date: 2022-09-20 12:24[facility] NorthCOVID-19 Positive/NegativeOrdered By: Patito Sweet on 08-19-2022 SARS-CoV-2 (COVID-19) N gene VIMAL+probe Ql (Resp)NegativeNegativeTogus Va Medical CenterComment on above:Testing for SARS-CoV-2 by RT-PCRThis test was developed and its performance characteristics determined by [employer] ([employer]) and validated at the [facility]. This test has not been FDA cleared [...] by coagulation aOrdered By: Patito Sweet on 03-11-5849hZBS Coag (PPP) [Time] 30.4 s25.1-36.5FMemorial HospitalBasophils Auto (Bld) [#/Vol] Ordered By: Patito Sweet on 50-98-8902Ygyqafrlk (Bld) [#/Vol]0.1 10*3/uL0.0-0.2 [facility] CenterBasophils/100 WBC Auto (Bld)Ordered By: Patito Sweet on 50-38-3287Uoxbalksu/100 WBC (Bld)0.6 %.[facility] Creatinine and Glomerular filtration rate.predicted panel (S/P/Bld)Ordered By: Patito Sweet on 33-63-4087Vvqfbltezj [Mass/Vol]1.08 mg/dL0.64-1.27T[facility] Medical CenterEosinophils Auto (Bld) [#/Vol]Ordered By: Patito Sweet on 67-14-0096Szdfyoziyju (Bld) [#/Vol]0.2 10*3/uL0.0-0.45[facility] Medical CenterEosinophils/100 WBC Auto (Bld)Ordered By: Patito Sweet on 08-12-2022 Eosinophils/100 WBC (Bld)1.9 %.[facility] Medical CenterErythrocyte distribution width Auto (RBC) [Ratio]Ordered By: Patito Sweet on 08-12-2022 Erythrocyte distribution width (RBC) [Ratio]15.0 %12.0-14.8[facility] Va Medical CenterEstimated glomerular filtration rate (GFR) non- Ordered By: Patito Sweet on 36-82-1568HCG/1.73 sq M.predicted among non-blacks MDRD (S/P/Bld) [Vol rate/Area]> 60 mL/MinTogus Va Medical CenterHematocrit Auto (Bld) [Volume fraction]Ordered By: Patito Sweet on 95-44-1232Rysysfgrqw (Bld) [Volume fraction]42.6 %38.8-50.0[facility] Medical CenterHemoglobin [Mass/volume] in BloodOrdered By: Patito Sweet on 44-39-4285Umamdahtsh (Bld) [Mass/Vol]13.9 g/dL13.0-17.0[facility] CenterLaboratory - CoagulationOrdered By: Patito Sweet on 13-75-3383LF Coag (PPP) [Time]14.0 s9.0-12.9 [facility] CenterLaboratory - Hematology and Cell countsOrdered By: Patito Sweet on 05-12-5830Vqyffdozx RBC/100 WBC (Bld) [Ratio]0.1 %0-0.5 [facility] CenterLeukocytes [#/volume] in Blood by Automated countOrdered By: Patito Sweet on 31-56-7169IJJ (Bld) [#/Vol]9.0 10*3/uL4.5-11.0 [facility] CenterLymphocytes Auto (Bld) [#/Vol]Ordered By: Patito Sweet on 81-94-5605Bcqzxuzktxj (Bld) [#/Vol]2.0 10*3/uL1.00-4.8[facility] CenterLymphocytes/100 WBC Auto (Bld)Ordered By: Patito Sweet on 08-12-2022 Lymphocytes/100 WBC (Bld)22.1 %.[facility] CenterH Auto (RBC) [Entitic mass]Ordered By: Patito Sweet on 19-74-1956JWI (RBC) [Entitic mass]25.8 pg 27.5-35.2FMemorial HospitalMCHC Auto (RBC) [Mass/Vol]Ordered By: Patito Sweet on 38-68-2770JPJE (RBC) [Mass/Vol]32.6 g/dL32.5-35.6FMemorial HospitalMCV Auto (RBC) [Entitic vol]Ordered By: Patito Sweet on 08-12-2022 MCV (RBC) [Entitic vol]79.1 fL83.5-101T[facility] Medical CenterMonocytes Auto (Bld) [#/Vol]Ordered By: Patito Sweet on 55-41-0761Qaatwzjbs (Bld) [#/Vol]0.8 10*3/uL0.0-0.8[facility] Medical CenterMonocytes/100 WBC Auto (Bld) Ordered By: Patito Sweet on 23-38-3092Dhnjabeqj/100 WBC (Bld)9.2 %.[facility] Medical CenterNeutrophils Auto (Bld) [#/Vol]Ordered By: Patito Sweet on 70-73-7853Lmatynplbxq (Bld) [#/Vol]6.0 10*3/uL1.8-7.7FMemorial HospitalNeutrophils/100 WBC Auto (Bld)Ordered By: Patito Sweet on 08-12-2022 Neutrophils/100 WBC (Bld)66.2 %.[facility] Medical CenterNo Panel InformationOrdered By: Patiot Sweet on 34-95-5786Nwhgjjghx GFR ()> 60 mL/MinTogus Va Medical CenterComment on above:GFR estimated reference range: According to KDOQI guidelines, <60 ml/min/1.73m2 is sufficient todiagnose a patient with chronic kidney disease.Pharmacy Creatinine Clearance (ChemN/[facility]HealthPlatelet mean volume Auto (Bld) [Entitic vol]Ordered By: Patito Sweet on 46-57-9237Qyeutzii mean volume (Bld) [Entitic vol]7.5 fL6.6-10.1FMemorial HospitalPlatelet poor plasma international normalized ratio (INR) by coagulation assay (relatOrdered By: Patito Sweet on 17-08-0613AMR Coag (PPP) [Relative time]1.2 {INR}[facility] Medical CenterComment on above:INR Therapeutic Range A) Pre- and [...] Auto (Bld) [#/Vol]Ordered By: Patito Sweet on 57-48-3863Wghstyosq (Bld) [#/Vol]213 10*3/zP150-745GrxiyneugTogus Va Medical CenterRBC Auto (Bld) [#/Vol]Ordered By: Patito Sweet on 08-12-2022 RBC (Bld) [#/Vol]5.38 10*6/uL3.90-5.60[facility] Hospitalerum or plasma anion gap determinationOrdered By: Patito Sweet on 85-82-2285Avizk gap [Moles/Vol]15.0 mmol/L6.0-15.0[facility] Hospitalerum or plasma calcium measurement (mass/volume)Ordered By: Patito Sweet on 71-47-1871Ngtpomg [Mass/Vol]9.0 mg/dL8.2-10.2FDunlap Memorial Hospitalerum or plasma chloride measurement (moles/volume)Ordered By: Patito Sweet on 73-98-5106Flyclpnp [Moles/Vol]107 mmol/V47-866VebhfyyafLancaster Municipal Hospitalerum or plasma glucose measurement (mass/volume)Ordered By: Patito Sweet on 89-71-9074Zhsxgvt [Mass/Vol]128 mg/sF18-047BhgeimildTogus Va Medical CenterComment on above:ADA recommended reference rangeRandom Glucose Reference Range is dependent on time and content of last meal. Glucose of more than 200 mg/dL in a nonstressed, ambulatory subject supports the diagnosisof Diabetes Mellitus.Serum or plasma potassium measurement (moles/volume)Ordered By: Patito Sweet on 57-58-0204Fdhcttdtl [Moles/Vol]4.2 mmol/L3.5-5.1FDunlap Memorial Hospitalerum or plasma sodium measurement (moles/volume)Ordered By: Patito Sweet on 79-73-7471Rdopfi [Moles/Vol]142 mmol/E976-653EwrevkuxkLancaster Municipal Hospitalerum or plasma total carbon dioxide measurement (moles/volume)Ordered By: Patito Sweet on 36-09-9087TQ6 [Moles/Vol]24.2 mmol/L22.0-30.0[facility] Serum or plasma urea nitrogen measurement (mass/volume)Ordered By: Patito Sweet on 59-04-1873Hlfe nitrogen [Mass/Vol]12 mg/dL9-23[facility] US KIDNEYS BLADDERon 28-42-8748PH KIDNEYS BLADDEREXAM: US KIDNEYS BLADDER HISTORY: . [...] Electronically authenticated by: MYRA PAREDES Date: 2022-06-08 08:34[facility] NorthXR hip LT min 2V(w/wo pelvis)*on 72-73-7027ET hip LT min 2V(w/wo pelvis)*[facility] [employer] Other XR hip LT min 2V(w/wo pelvis)*[facility] [employer] Other XR hip LT min 2V(w/wo pelvis)*[facility] [employer] Other XR hip LT min 2V(w/wo pelvis)*[place] [address]Dye[place] [employer] Other XR hip LT min 2V(w/wo pelvis)*XRay ReportSaint Charles [employer] Other XR hip LT min 2V(w/wo pelvis)*[facility] [employer] Other XR hip LT min 2V(w/wo pelvis)*Patient: Lima Loyd MR#: [id number] [employer] Other XR hip LT min 2V(w/wo pelvis)*69857[employer] Other XR hip LT min 2V(w/wo pelvis)*: 1965 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 Other XR hip LT min 2V(w/wo pelvis)*Age/Sex: 56 / M ADM Date: 02/16/22[facility] [employer] Other XR hip LT min 2V(w/wo pelvis)*Loc: [facility] Room: Type: [facility] [employer] Other XR hip LT min 2V(w/wo pelvis)*Attending Dr: Gaurav Higuera [facility] HospitalLabochema Other XR hip LT min 2V(w/wo pelvis)*Ordering Provider: Gaurav Higuera [employer] Other XR hip LT min 2V(w/wo pelvis)*Date of Service: 02/16/22[facility] [employer] Other XR hip LT min 2V(w/wo pelvis)* XR/XR hip LT min 2V(w/wo pelvis)*: Acute pain of left hipSaint Charles [employer] Other XR hip LT min 2V(w/wo pelvis)*Copies to: Gaurav HigueraCloudius Systems Other XR hip LT min 2V(w/wo pelvis)*2 views LEFT hip single view pelvisplain [facility] [employer] Other XR hip LT min 2V(w/wo pelvis)*COMPARISON:02/02/22[facility] [employer] Other XR hip LT min 2V(w/wo pelvis)*HISTORY:LEFT hip pain for [facility] [employer] Other XR hip LT min 2V(w/wo pelvis)*No fracture, dislocation or focal soft tissue abnormality seen.Hip joint space is adequate. [facility] [employer] Other XR hip LT min 2V(w/wo pelvis)*articular surfaces of the hips preserved.[facility] [employer] Other XR hip LT min 2V(w/wo pelvis)* XR/XR hip LT min 2V(w/wo pelvis)*[facility] [employer] Other XR hip LT min 2V(w/wo pelvis)*IMPRESSION:Unremarkable LEFT [facility] [employer] Other XR hip LT min 2V(w/wo pelvis)*Impression dictated by: Garrett Astudillo M.D.02/16/2022 2:21 [facility] [employer] Other XR hip LT min 2V(w/wo pelvis)*Dictation Location: [id number] [employer] Other XR hip LT min 2V(w/wo pelvis)*Transcribed By: ALDEN 02/16/[address] [place] [address] [employer] Other XR hip LT min 2V(w/wo pelvis)*Dictated By: Garrett Astudillo DO 02/16/[address] [place] [address] [employer] Other XR hip LT min 2V(w/wo pelvis)*Signed By:[facility] [employer] Other XR hip LT min 2V(w/wo pelvis)*02/16/[address] [place] [address] [employer] Other XR hip RT min 2V(w/wo pelvis)*on 82-95-2012KH hip RT min 2V(w/wo pelvis)*[facility] [employer] Other XR hip RT min 2V(w/wo pelvis)*[facility] [employer] Other XR hip RT min 2V(w/wo pelvis)*[facility] [employer] Other XR hip RT min 2V(w/wo pelvis)*JONEL Howell [address] [place] [address] [employer] Other XR hip RT min 2V(w/wo pelvis)*[facility] [employer] Other XR hip RT min 2V(w/wo pelvis)*SignedSaint Charles [employer] Other XR hip RT min 2V(w/wo pelvis)*Patient: Lima Loyd MR#: [id number] [employer] Other XR hip RT min 2V(w/wo pelvis)*55153Ubmcr [employer] Other XR hip RT min 2V(w/wo pelvis)*: 1965 Acct:[id number] [employer] Other XR hip RT min 2V(w/wo pelvis)*Age/Sex: 56 / M ADM Date: 02/02/22[employer] Other XR hip RT min 2V(w/wo pelvis)*Loc: [facility] Room: Type: [facility] [employer] Other XR hip RT min 2V(w/wo pelvis)*Attending Dr: Gaurav Higuera [employer] Other XR hip RT min 2V(w/wo pelvis)*Ordering Provider: Gaurav Higuera [employer] Other XR hip RT min 2V(w/wo pelvis)*Date of Service: 02/02/22[employer] Other XR hip RT min 2V(w/wo pelvis)* XR/XR hip RT min 2V(w/wo pelvis)*: Right hip painSaint Charles [employer] Other XR hip RT min 2V(w/wo pelvis)*Copies to: Gaurav Higuera, [employer] Other XR hip RT min 2V(w/wo pelvis)*Pelvis and right hip 02/02/2022.[employer] Other XR hip RT min 2V(w/wo pelvis)*CLINICAL DATA: Right hip pain.[employer] Other XR hip RT min 2V(w/wo pelvis)*FINDINGS: A single view of the pelvis and 2 views of the right hip were obtained.[employer] Other XR hip RT min 2V(w/wo pelvis)*The right and left acetabula appear shallow. No acute fracture or dislocation is identified. There [employer] Other XR hip RT min 2V(w/wo pelvis)*are mild and symmetrical arthritic changes at both hips. No bony erosion or destruction isNoBest Teacher Other XR hip RT min 2V(w/wo pelvis)*visualized. There are postsurgical changes related to L4-L5 interbody fusion.[employer] Other XR hip RT min 2V(w/wo pelvis)* XR/XR hip RT min 2V(w/wo pelvis)*[employer] Other XR hip RT min 2V(w/wo pelvis)*IMPRESSION: Shallow acetabula. Mild degenerative changes. No acute bony abnormality.[employer] Other XR hip RT min 2V(w/wo pelvis)*Impression dictated by: Junito Sims Jr., M.D.02/02/2022 11:14 [facility] [employer] Other XR hip RT min 2V(w/wo pelvis)*Dictation Location: [address] [employer] Other XR hip RT min 2V(w/wo pelvis)*Transcribed By: ALDEN 02/02/22 [facility] HospitalVIS [facility] Other XR hip RT min 2V(w/wo pelvis)*Dictated By: Junito Sims Jr, MD 02/02/22 [facility]Convert[facility] Other XR hip RT min 2V(w/wo pelvis)*Signed By:[employer] Other XR hip RT min 2V(w/wo pelvis)*02/02/22 [facility] HospitalConvert[facility] Other XR knee BI 2Von 67-50-9925VR knee BI 2VAccession #: ([id number]) XR/XR knee BI 2V: Z96.653[facility] [employer] Other XR knee BI 2VBILATERAL KNEES - 2 views eachSaint Charles [employer] Other XR knee BI 2VCLINICAL HISTORY: Follow-up bilateral TKA [employer] Other XR knee BI 2VCOMPARISON: Knee series 02/02/2021[facility] [employer] Other XR knee BI 2VFINDINGS: Bilateral knee prostheses are in place without radiographic complication. No acute bonySaint Charles [employer] Other XR knee BI 2Vprocess is seen. No joint effusions.[employer] Other XR knee BI 2VORDER #: [id number] XR/XR knee BI 2VSaint Charles [employer] Other XR knee BI 2VIMPRESSION:[employer] Other XR knee BI 2VNO EVIDENCE OF HARDWARE COMPLICATION. [employer] Other XR knee BI 2VImpression dictated by: Abad Perez Jr., GeriOAlejo02/02/2022 10:27 [facility] [employer] Other XR knee BI 2VDictation Location: [id number] [employer] Other XR knee BI 2VTranscribed By: PWS 02/02/[address] [place] [address] [employer] Other XR knee BI 2VDictated By: Abad Perez Jr, DO 02/02/[address] [place] [address] [employer] Other XR knee BI 2VSigned By:[employer] Other XR knee BI 2V02/02/[address] [place] [address] [employer] Other Vital Signs Date TimeVital SignValuePerforming IbrozynyrKglizkms88-56-5929 08:38-0500Body cmNicholas Brown DPM Work Phone: [facility] HospitalEayqpzxawb64-14-4327 08:38-0500Body mass index (BMI) [Ratio]38.77 kg/l0Alnjxwpv Brown DPM Work Phone: [phone] [place], [place] [address]Jyxrzwbbdo55-17-7260 08:38-0500Body .99 kgNicholas Brown DPM Work Phone: [facility] HospitalDekkdjmflj26-45-9201 08:38-0500Respiratory rate18 /minNicholas Brown DPM Work Phone: [phone] [place], [place] [address]Ykgxfxtlbm80-04-1268 10:49-0500Body zilyvw862 cm Venkat Brown DPM Work Phone: [facility] HospitalWnsxjpaliv88-03-0315 10:49-0500Body mass index (BMI) [Ratio]38.77 kg/a5Enanosyd Brown DPM Work Phone: [facility] HospitalOnawoqnryp78-05-4908 10:49-0500Body uujbhs980.99 kgNicholas Brown DPM Work Phone: [phone] [place], [place] [address]Eyiupgywpt97-21-2491 10:49-0500Respiratory rate18 /minNicholas Brown DPM Work Phone: [facility] HospitalQtmhykhqyy90-02-2647 08:59-0500Body zgvtvo014 cm Venkat Brown DPM Work Phone: [facility] HospitalPnfbzgtsvh48-48-5547 08:59-0500Body mass index (BMI) [Ratio]38.77 kg/e6Pjxcwgxd Brown DPM Work Phone: [phone] [place], [place] [address]Xlddorhzev76-38-5929 08:59-0500Body spthwi754.99 kgNicholas Brown DPM Work Phone: [facility] HospitalDtvijoqejl82-44-9993 08:59-0500Respiratory rate16 /minNicholas Brown DPM Work Phone: [facility] HospitalPqtswpxkle09-17-0256 09:09-0500Body asbuea465 cm Venkat Paredes DPM Work Phone: [facility] HospitalFkiatsbcsd00-94-4923 09:09-0500Body mass index (BMI) [Ratio]38.77 kg/v0Abjauqnf Brown DPM Work Phone: [facility] HospitalLzwnccfjii03-56-5258 09:09-0500Body icplzi218.99 kgNicholas Brown DPM Work Phone: [facility] HospitalInwbuitzjm03-52-6820 09:09-0500Respiratory rate16 /minNiceric Brown DPM Work Phone: [facility] HospitalOkwivcpznt41-96-4120 13:49-0500Body dpynmy223 cm Venkat Paredes DPM Work Phone: [facility] HospitalUlwsdlnvtv38-82-9190 13:49-0500Body mass index (BMI) [Ratio]38.77 kg/x4Bmmnmlca Brown DPM Work Phone: [place] [address]Otsnttcefx23-81-7730 13:49-0500Body .99 kgNiceric Brown DPM Work Phone: [place] [address]Umdccndvrb54-74-6381 13:49-0500Respiratory rate18 /John Paredes DPM Work Phone: [facility] HospitalQkixgbtwdh87-94-0980 09:24-0500Body cm Venkat Paredes DPM Work Phone: [phone] [place], [place] [address]Jejarymviy36-73-8340 09:24-0500Body mass index (BMI) [Ratio]38.77 kg/x3Rnhmolnh Brown DPM Work Phone: [phone] [place], [place] [address]Fkoegjlrnw87-70-6825 09:24-0500Body wibdsn050.99 kgNicholas Brown DPM Work Phone: [place] [address]Ggdbkfxftd42-24-2151 09:24-0500Diastolic blood mimwtlah68 mm[Hg]Venkat Paredes DPM Work Phone: [phone] [place], [place] [address]Aqidgfvcfc58-98-8812 09:24-0500Heart rate82 /min Venkat Paredes DPM Work Phone: [phone] [place], [place] [address]Quizriojhg37-95-1728 09:24-0500Systolic blood rydpyvgg943 mm[Hg]Venkta Paredes DPM Work Phone: [phone] [place], [place] [address]Xidkmhvdhc04-74-9200 09:16-0400Body ydashx187 cm Venkat Paredes DPM Work Phone: [phone] [place], [place] [address]Pqbobmklti44-36-0152 09:16-0400Body mass index (BMI) [Ratio]38.77 kg/b6UujmimjtVenkat Paredes DPM Work Phone: [phone] [place], [place] [address]Upujpkrjra40-06-1922 09:16-0400Body yzpdum144.99 kgShanekajillian Lena DPM Work Phone: [phone] [place], [place] [address]Hmmtojuewm85-34-0993 09:16-0400Diastolic blood ahqsvfla96 mm[Hg]Venkat Paredes DPM Work Phone: [phone] [place], [place] [address]Rrwpqdfbvr52-55-5390 09:16-0400Heart rate88 /min Venkat Paredes DPM Work Phone: [phone] [place], [place] [address]Juaqgpbrbo77-46-8834 09:16-0400Systolic blood mozarnwg082 mm[Hg]Venkat Paredes DPM Work Phone: [phone] [place], [place] [address]Oamcjekksf94-16-0946 09:50-0400Blood Pressure LocationKathy Lue [facility]07-25-2024 09:50-0400Body uzfuhjpbzmj69.8 [degF]Patito Lue [facility]07-25-2024 09:50-0400Diastolic blood embabmai84 mm[Hg]Patito Lue [facility]07-25-2024 09:50-0400Heart rate78 /minKathy Lue [facility]07-25-2024 09:50-0400Respiratory rate19 /minKathy Lue [facility]07-25-2024 09:50-0400Systolic blood mm[Hg]Patito Lue [facility]02-19-2024 08:47-0500Body imkljn980.96 cmMD Jeff Hoy Work Phone: [facility]02-19-2024 08:47-0500 Body mass index (BMI) [Ratio]40.4 kg/m2MD Jeff Hoy Work Phone: [facility]02-19-2024 08:47-0500 Body dniwlh265.88 kgMD Jeff Hoy Work Phone: [facility]01-19-2024 09:58-0500 Blood Pressure LocationKathy Lue [facility]01-19-2024 09:58-0500Diastolic blood nqcwupma77 mm[Hg]Patito Lue [facility]01-19-2024 09:58-0500Heart rate80 /minKathy Lue [facility]01-19-2024 09:58-0500Systolic blood yeqvcjio991 mm[Hg]Patito Lue [facility]01-15-2024 10:43-0500Diastolic blood sunfuccm84 mm[Hg]MD Jeff Terrell Work Phone: [facility]01-15-2024 10:43-0500 Heart rate72 /minMD Jeff Terrell Work Phone: [phone])174-[address] [place], [place] [address]01-15-2024 10:43-0500 Respiratory rate18 /minMD Jeff Terrell Work Phone: [phone] [place], [place] 4603801-15-2024 10:43-0500 SaO2% (BldA) [Mass fraction]93 %MD Jeff Terrell Work Phone: 1([phone])601-[address] [place], [place] 24[address]01-15-2024 10:43-0500 Systolic blood msggojde259 mm[Hg]MD Jeff Terrell Work Phone: [phone]01-15-2024 07:55-0500 Body gfmnyl320.96 cmMD Jeff Terrell Work Phone: [phone])[address] [place], [place] 4603801-15-2024 07:55-0500 Body opnxuwmplbm99.9 [degF]MD Jeff Terrell Work Phone: [phone])[address] [place], [place] 460[address]01-15-2024 07:55-0500 Body vxtxac177.24 kgMD Jeff Terrell Work Phone: [phone] [place], [place] 4603801-10-2024 10:45-0500 Body hwyrel514.96 cmMD Jeff Terrell Work Phone: 1(687)624-[address] [place], [place] 24[address]12-12-2023 11:58-0500 Diastolic blood ogydhqjw39 mm[Hg]Patito Lue [facility]12-12-2023 11:58-0500Heart rate72 /minKathy Lue [facility]12-12-2023 11:58-0500Mean blood fohtzuyu002 mm[Hg]Patito Lue [facility]12-12-2023 11:58-0500 Respiratory rate18 /minKathy Lue [facility]12-12-2023 11:58-1728ZcZ4% (BldA) [Mass fraction]96 %Patito Lue [facility]12-12-2023 11:58-0500 Systolic blood mm[Hg]Patito Lue [address] [place], [place] 1861712-12-2023 11:12-0500Heart rate80 /minKathy Lue [address] [place], [place] 1861712-12-2023 11:12-8384QvY4% (BldA) [Mass fraction]94 %Patito Lue [address] [place], [place] 1861712-12-2023 11:10-0500Body qtncofhgvam33.7 [degF]Patito Lue [address] [place], [place] 1861712-12-2023 11:10-0500 Respiratory rate20 /minKathy Lue [address] [place], [place] 1861712-12-2023 11:08-0500Blood Pressure LocationKathy Lue [address] [place], [place] 1861712-12-2023 11:08-0500 Diastolic blood vjctouou97 mm[Hg]Patito Lue [address] [place], [place] 1861712-12-2023 11:08-0500Mean blood lajzvgub658 mm[Hg]Patito Lue [address] [place], [place] 1861712-12-2023 11:08-0500 Systolic blood igglbcie306 mm[Hg]Patito Lue [address] [place], [place] 1861712-12-2023 11:08-0500Mean blood ulxskovp819 mm[Hg]Patito Lue [address] [place], [place] 1861712-12-2023 11:00-0500Body cqzowmdoodv65.24 [degF]Patito Lue [address] [place], [place] 1861712-12-2023 11:00-0500 Diastolic blood ivzdvjim33 mm[Hg]Patito Lue [facility]12-12-2023 11:00-0500Heart rate79 /minKathy Lue [facility]12-12-2023 11:00-0500 Respiratory rate11 /minKathy Lue [address] [place], [place] 1693212-12-2023 11:00-6330CsT5% (BldA) [Mass fraction]93 %Patito Lue [address] [place], [place] 1861712-12-2023 11:00-0500 Systolic blood upjkmqfl214 mm[Hg]Patito Lue [address] [place], [place] 1693212-12-2023 10:50-0500Blood Pressure LocationKathy Lue [address] [place], [place] 1861712-12-2023 10:50-0500 Respiratory rate10 /minKathy Lue [facility]12-12-2023 10:45-0500 Respiratory rate17 /minKathy Lue [facility]12-12-2023 10:34-0500Body rxvzmdnkjho17.7 [degF]Patito Lue [address] [place], [place] 1861712-12-2023 10:30-0500 Respiratory rate16 /minKathy Lue [facility]12-12-2023 07:28-0500Mean blood xnapdiem168 mm[Hg]Patito Lue [facility]12-06-2023 11:00-0500Body heightJanine Maynard Other [facility] [employer] Other 12-06-2023 11:00-0500Body yrvfub266.96 cmMD Jeff Hoy Work Phone: 1(870)158-[address] [place], [place] 24[address]11-22-2023 08:45-0500 Body heightJustrolly Higuera Other [facility] [employer] Other 11-22-2023 08:45-0500Body mmafwb271.96 cmMD Jeff Harrisony Work Phone: [phone] [place], [place] 2417411-22-2023 08:45-0500 Body mass index (BMI) [Ratio]39.8 kg/e8Cdidsrmarlon Higuera Other [facility] [employer] Other 11-22-2023 08:45-0500Body fliabl743.62 kgJustrolly Higuera Other [facility] [employer] Other 11-22-2023 08:45-0500Body ecndjv068.61 kgMD Jeff Harrisony Work Phone: [phone] [place], [place] 2417411-14-2023 13:10-0500 Diastolic blood aesncknb86 mm[Hg]MD Jeff Terrell Work Phone: [phone]11-14-2023 13:10-0500 Heart rate71 /minMD Jeff Harrisony Work Phone: [phone]11-14-2023 13:10-0500 Respiratory rate16 /minMD Jeff Harrisony Work Phone: [phone] [place], [place] 2417411-14-2023 13:10-0500 SaO2% (BldA) [Mass fraction]96 %MD Jeff Terrell Work Phone: [phone]11-14-2023 13:10-0500 Systolic blood xfomudfr446 mm[Hg]MD Jeff Terrell Work Phone: 1(164)44426 [address]11-14-2023 12:25-0500 Inhaled oxygen flow rate8 L/minMD Jeff Terrell Work Phone: 1(666)07426 [address]11-14-2023 11:16-0500 Body demwur196.96 cmMD Jeff Hoy Work Phone: 1(419)[address] [place], [place] 4603811-14-2023 11:16-0500 Body mass index (BMI) [Ratio]39.3 kg/m2MD Jeff Hoy Work Phone: 1(419)[address] [place], [place] 4603811-14-2023 11:16-0500 Body futzsl529 kgMD Jeff Hoy Work Phone: 1(419)[address] [place], [place] 4603811-14-2023 09:20-0500 Body uluvhzfxiuq25.5 [degF]MD Jeff Terrell Work Phone: 1(419)[address] [place], [place] 4603811-12-2023 15:32-0500 Body qrcxfo328.96 cmMD Jeff Hoy Work Phone: 1(419)[address] [place], [place] 4603811-12-2023 15:32-0500 Body dioleogjjed39.6 [degF]MD Jeff Terrell Work Phone: 1(419)[address] [place], [place] 4603811-12-2023 15:32-0500 Body thucej055.25 kgMD Jeff Hoy Work Phone: 1(419)[address] [place], [place] 4603811-12-2023 15:32-0500 Diastolic blood pqccusbs21 mm[Hg]MD Jeff Terrell Work Phone: 1(419)[address] [place], [place] 4603811-12-2023 15:32-0500 Heart rate83 /minMD Jeff Hoy Work Phone: 1(419)[address] [place], [place] 4603811-12-2023 15:32-0500 Respiratory rate16 /minMD Jeff Hoy Work Phone: 1(419)[address] [place], [place] 4603811-12-2023 15:32-0500 SaO2% (BldA) [Mass fraction]96 %MD Jeff Terrell Work Phone: 1(419)[address] [place], [place] 4603811-12-2023 15:32-0500 Systolic blood mbfzfemo437 mm[Hg]MD Jeff Terrell Work Phone: 1(419)[address] [place], [place] 4603811-03-2023 10:14-0400 Diastolic blood mfrfhiiu03 mm[Hg]Patito Lue [facility] 552761-03-2023 10:14-0400Heart rate72 /minKathy Lue [facility] 552761-03-2023 10:14-0400Systolic blood baohodhc356 mm[Hg]Patito Lue [facility]09-15-2023 09:15-0400Body heightJustrolly Higuera Other [facility] [employer] Other 09-15-2023 09:15-0400Body mass index (BMI) [Ratio] 36.84 kg/v2Uzvcxqmarlon Higuera Other [facility] [employer] Other 09-15-2023 09:15-0400Body rmgjee513.18 kgJumarlon Higuera Other [facility] [employer] Other 07-11-2023 10:43-0400Diastolic blood mm[Hg] MD Jeff Terrell Work Phone: 3(029)629-[address] [place], [place] 2417407-11-2023 10:43-0400 Heart rate71 /minMD Jeff Terrell Work Phone: 1(703)800-[address] [place], [place] 2417407-11-2023 10:43-0400 Respiratory rate16 /minMD Jeff Terrell Work Phone: 1(448)900-[address] [place], [place] 2417407-11-2023 10:43-0400 SaO2% (BldA) [Mass fraction]95 %MD Jeff Terrell Work Phone: 1(924)187-[address] [place], [place] 2417407-11-2023 10:43-0400 Systolic blood xvgggbaj956 mm[Hg]MD eJff Terrell Work Phone: 1(216)321-[address] [place], [place] 2417407-11-2023 10:13-0400 Inhaled oxygen flow rate6 L/minMD Jeff Terrell Work Phone: 1(236)203-[address] [place], [place] 2417407-11-2023 09:01-0400 Body mass index (BMI) [Ratio]39.4 kg/m2MD Jeff Harrisony Work Phone: 1(650)[address]07-11-2023 08:57-0400 Body .96 cmMD Jeff Terrell Work Phone: 1(098)[address]07-11-2023 08:57-0400 Body dqefnz902.25 kgMD Jeff Terrell Work Phone: 1(928)[address]07-11-2023 08:17-0400 Body igqqaxnqhtl72.6 [degF]MD Jeff Terrell Work Phone: 1(951)[address]126 [address]06-09-2023 09:45-0400 Body heightJustrolly Higuera Other [facility] [employer] Other 06-09-2023 09:45-0400Body mass index (BMI) [Ratio] 36.84 kg/k5Tpovjjrolly Higuera Other [facility] Other 06-09-2023 09:45-0400Body liefae525.18 kgJustrolly Higuera Other [facility] [employer] Other 05-30-2023 15:16-0400Diastolic blood elevghcm67 mm[Hg] MD Jeff Terrell Work Phone: [facility]05-30-2023 15:16-0400 Heart rate76 /minMD Jeff Terrell Work Phone: [facility]05-30-2023 15:16-0400 Respiratory rate16 /min Jeff Harrisonzan Work Phone: 1(081)104-[address] [place], [place] 2417405-30-2023 15:16-0400 SaO2% (BldA) [Mass fraction]98 %MD Jeff Terrell Work Phone: 1(266)048-[address] [place], [place] 2417405-30-2023 15:16-0400 Systolic blood yfpbdidx649 mm[Hg]MD Jeff Terrell Work Phone: 1(900)[address]05-30-2023 14:32-0400 Inhaled oxygen flow rate6 L/minMD Jeff Terrell Work Phone: 1(151)[address]05-30-2023 13:27-0400 Body sfvhaa411.96 cmMD Jeff Terrell Work Phone: 1(614)78126 [address]05-30-2023 13:27-0400 Body aohwni851.25 kgMD Jeff Hunterzan Work Phone: 1(531)[address]05-30-2023 13:21-0400 Body mass index (BMI) [Ratio]17.9 kg/m2MD Jeff Hunterzan Work Phone: 1(633)57426 [address]05-30-2023 11:29-0400 Body rpvbgbniszm88.5 [degF]MD Jeff Terrell Work Phone: 1(458)71226 [address]05-12-2023 12:15-0400 Body heightJustin Davida Other [facility] [employer] Other 05-12-2023 12:15-0400Body mass index (BMI) [Ratio] 36.84 kg/n3Kcqyhx Davida Other [facility] [employer] Other 05-12-2023 12:15-0400Body nkzlfe773.18 kgJustin Davida Other [facility] [employer] Other 04-25-2023 17:15-0400Body heightThomas Felter Other [facility] [employer] Other 04-17-2023 14:03-0400Body .96 cmMD Jeff Terrell Work Phone: 1(747)148-[address] [place], [place] 2417404-17-2023 14:03-0400 Body zwumqjlkepw77.8 [degF]MD Jeff Terrell Work Phone: [facility]04-17-2023 14:03-0400 Body rvcfoe834 kg Jeff Terrell Work Phone: 1(171)483-[address] [place], [place] 2417404-17-2023 14:03-0400 Diastolic blood dobtavxp47 mm[Hg]MD Jeff Terrell Work Phone: [facility]04-17-2023 14:03-0400 Heart rate86 /minMD Jeff Ventura Work Phone: 1(211)483-[address] [place], [place] 2417404-17-2023 14:03-0400 Respiratory rate18 /minMD Jeff Terrell Work Phone: 1(642)483-[address] [place], [place] 2417404-17-2023 14:03-0400 SaO2% (BldA) [Mass fraction]95 %MD Jeff Terrell Work Phone: 1(429)483-[address] [place], [place] 2417404-17-2023 14:03-0400 Systolic blood ntpmjsaa999 mm[Hg]MD Jeff Terrell Work Phone: 1(928)654-[address] [place], [place] 2417403-08-2023 07:41-0500 Blood Pressure LocationKathy Lue [facility]03-08-2023 07:41-0500Diastolic blood newsnyku96 mm[Hg]Patito Lue [facility]03-08-2023 07:41-0500Heart rate72 /minKathy Lue [facility]03-08-2023 07:41-0500Systolic blood ranwztfq529 mm[Hg]Patito Lue [facility]02-14-2023 15:53-0500Diastolic blood wehgtjun91 mm[Hg]MD Jeff Terrell Work Phone: 1(819)805-[address] [place], [place] 2417402-14-2023 15:53-0500 Heart rate95 /minMD Jeff Terrell Work Phone: 1(595)588-[address] [place], [place] 2417402-14-2023 15:53-0500 Respiratory rate16 /minMD Jeff Terrell Work Phone: 1(745)[address] [place], [place] 4603802-14-2023 15:53-0500 SaO2% (BldA) [Mass fraction]93 %MD Jeff Terrell Work Phone: 1(180)[address]26 [address]02-14-2023 15:53-0500 Systolic blood asvgbqfw932 mm[Hg]MD Jeff Terrell Work Phone: 1(647)[address]02-14-2023 15:00-0500 Body cxyqabbpmmo03.2 [degF]MD Jeff Terrell Work Phone: 1(626)55526 [address]02-14-2023 14:35-0500 Inhaled oxygen flow rate8 L/minMD Jeff Terrell Work Phone: 1(679)559-[address] [place], [place] 2417402-14-2023 12:37-0500 Body mkzdha856.96 cmMD Jeff Terrell Work Phone: 1(254)[address] [place], [place] 4603802-14-2023 12:37-0500 Body mass index (BMI) [Ratio]38.1 kg/m2MD Jeff Terrell Work Phone: 1(917)[address]02-14-2023 12:37-0500 Body cfqiae700.71 kgMD Jeff Terrell Work Phone: 1(714)458-[address] [place], [place] 2417402-14-2023 00:00-0500 Body qojsaz068 mgMD Jeff Terrell Work Phone: 1(042)454-[address] [place], [place] 2417402-09-2023 10:00-0500 Body heightThomas Felter Other [facility] [employer] Other 02-09-2023 10:00-0500Body mass index (BMI) [Ratio] 36.84 kg/s9Dxdmsv Felter Other [facility] [employer] Other 02-09-2023 10:00-0500Body wlcowd534.18 kgThomas Felter Other [facility] [employer] Other 01-18-2023 09:55-0500Diastolic blood uqkgshna15 mm[Hg] MD Jeff Terrell Work Phone: 1(529)[address]26 [address]01-18-2023 09:55-0500 Heart rate61 /minMD Jeff Hoy Work Phone: 1(040)[address] [place], [place] 4603801-18-2023 09:55-0500 Respiratory rate18 /minMD Jeff Hoy Work Phone: 1(145)[address] [place], [place] 4603801-18-2023 09:55-0500 SaO2% (BldA) [Mass fraction]96 %MD Jeff Terrell Work Phone: 1(154)[address] [place], [place] 4603801-18-2023 09:55-0500 Systolic blood mm[Hg]MD Jeff Terrell Work Phone: 1(206)[address] [place], [place] 4603801-18-2023 08:12-0500 Body yoygbz511.96 cmMD Jeff Hoy Work Phone: 1(900)[address] [place], [place] 4603801-18-2023 08:12-0500 Body vpmliq603.71 kgMD Jeff Hoy Work Phone: 1(423)[address] [place], [place] 4603812-16-2022 16:42-0500 Body kczaev057.96 cmMD Jeff Hoy Work Phone: 1(547)[address] [place], [place] 4603812-16-2022 16:42-0500 Body mass index (BMI) [Ratio]38.5 kg/m2MD Jeff Hoy Work Phone: 1(923)[address] [place], [place] 4603812-16-2022 16:42-0500 Body .07 kgMD Jeff Hoy Work Phone: 1(065)[address] [place] 4603812-16-2022 14:40-0500 Diastolic blood njneurin50 mm[Hg]MD Jeff Terrell Work Phone: 1(733)488-[address] [place], [place] 2417412-16-2022 14:40-0500 Heart rate64 /minMD Jeff Terrell Work Phone: 1(909)[facility] [place], [place] 2417412-16-2022 14:40-0500 Respiratory rate18 /minMD Jeff Terrell Work Phone: 1(459)[facility] [place], [place] 2417412-16-2022 14:40-0500 SaO2% (BldA) [Mass fraction]96 %MD Jeff Terrell Work Phone: 1(881)[facility] [place], [place] 2417412-16-2022 14:40-0500 Systolic blood gbacigot396 mm[Hg]MD Jeff Terrell Work Phone: 1(317)[address] [place], [place] 4603812-16-2022 10:48-0500 Body .96 cmMD Jeff Terrell Work Phone: 1(407)[address] [place], [place] 4603812-16-2022 10:48-0500 Body uvjxnizctca12.1 [degF]MD Jeff Terrell Work Phone: 1(364)[facility] [place], [place] 2417412-16-2022 10:48-0500 Body .07 kgMD Jeff Terrell Work Phone: 1(254)[address] [place], [place] 4603812-07-2022 08:22-0500 Blood Pressure LocationKathy Lue [facility]12-07-2022 08:22-0500Diastolic blood itascpix96 mm[Hg]Patito Lue [facility]12-07-2022 08:22-0500Heart rate64 /minKathy Lue [facility]12-07-2022 08:22-0500Respiratory rate16 /minKathy Lue [facility]12-07-2022 08:22-0500Systolic blood ghlbbekc001 mm[Hg]Patito Sweet [facility]11-08-2022 17:13-0500Diastolic blood xcboniqr32 mm[Hg]MD Jeff Terrell Work Phone: 1(821)731-[address] [place], [place] 2417411-08-2022 17:13-0500 Heart rate70 /minMD Jeff Terrell Work Phone: 1(252)[address] [place], [place] 4603811-08-2022 17:13-0500 Respiratory rate16 /minMD Jeff Terrell Work Phone: 1(273)[address] [place], [place] 4603811-08-2022 17:13-0500 SaO2% (BldA) [Mass fraction]95 %MD Jeff Terrell Work Phone: 1(917)[address]11-08-2022 17:13-0500 Systolic blood xeokdoia714 mm[Hg]MD Jeff Terrell Work Phone: 1(508)[address] [place], [place] 4603811-08-2022 16:16-0500 Body .96 cmMD Jeff Terrell Work Phone: 1(876)[address] [place], [place] 4603811-08-2022 16:16-0500 Body mass index (BMI) [Ratio]38.2 kg/m2MD Jeff Hoy Work Phone: 1(867)[address] [place], [place] 4603811-08-2022 16:16-0500 Body pohyto449.3 kgMD Jeff Terrell Work Phone: 1(064)[address] [place], [place] 4603811-08-2022 12:17-0500 Body sxqwokuphba62.4 [degF]MD Jeff Terrell Work Phone: 1(198)[address]10-27-2022 09:20-0400 Body heightDaelpidio George Other [facility] [employer] Other 10-27-2022 09:20-0400Body mass index (BMI) [Ratio] 37.49 kg/m2Dale Ariel Other [employer] Other 10-27-2022 09:20-0400Body oovvzp131.45 kgDale George Other [facility] [employer] Other 10-26-2022 09:49-0400Blood Pressure LocationKathy Lue [facility]10-26-2022 09:49-0400Diastolic blood wrqcviaj66 mm[Hg]Patito Lue [facility]10-26-2022 09:49-0400Heart rate76 /minKathy Lue [facility]10-26-2022 09:49-0400Respiratory rate16 /minKathy Lue [facility]10-26-2022 09:49-0400Systolic blood ezjadbmn149 mm[Hg]Patito Lue [facility]10-18-2022 15:15-0400Body heightThomas Felter Other [facility] [employer] Other 10-11-2022 08:48-0400Diastolic blood rczjszei49 mm[Hg] MD Jeff Terrell Work Phone: [facility]10-11-2022 08:48-0400 Heart rate69 /minMD Jeff Terrell Work Phone: [facility]10-11-2022 08:48-0400 Respiratory rate16 /minMD Jeff Terrell Work Phone: [facility]10-11-2022 08:48-0400 SaO2% (BldA) [Mass fraction]95 %MD Jeff Terrell Work Phone: [facility]10-11-2022 08:48-0400 Systolic blood nacujgev254 mm[Hg]MD Jeff Terrell Work Phone: 1(067)6931990[facility]10-11-2022 08:05-0400 Inhaled oxygen flow rate3 L/min Jeff Harrisonzan Work Phone: 1(960)9311990[facility]10-11-2022 06:41-0400 Body drlujh468.96 cmMD Jeff Terrell Work Phone: 1(338)1431990[facility]10-11-2022 06:41-0400 Body efoygn948.18 kgMD Jeff Terrell Work Phone: 1(141)1941990[facility]09-27-2022 08:29-0400 Blood Pressure LocationKathy Lue [facility]09-27-2022 08:29-0400Diastolic blood uqbcpusl40 mm[Hg]Patito Lue [facility]09-27-2022 08:29-0400Heart rate72 /minKathy Lue [facility]09-27-2022 08:29-0400Systolic blood mm[Hg]Patito Lue [facility]09-08-2022 12:14-0400Diastolic blood mm[Hg]Ronak Zumbar [facility]09-08-2022 12:14-0400Heart rate60 /minZachary Zumbar [facility]09-08-2022 12:14-0400Mean blood ljzuvcuo125 mm[Hg]Ronak Zumbar [facility]09-08-2022 12:14-0400 Respiratory rate16 /minZachary Zumbar [facility]09-08-2022 12:14-0400 Systolic blood iaxdutdm359 mm[Hg]Ronak Zumbar [facility]08-30-2022 10:42-0400 Diastolic blood rojczigb77 mm[Hg]MD Jeff Terrell Work Phone: 1(965)463-[address] [place], [place] 2417408-30-2022 10:42-0400 Heart rate65 /minMD Gallegolas Ventura Work Phone: 1(214)795-[address] [place], [place] 2417408-30-2022 10:42-0400 Respiratory rate20 /minMD Jeff Terrell Work Phone: 1(005)[address]226 [address]08-30-2022 10:42-0400 SaO2% (BldA) [Mass fraction]98 %MD Jeff Terrell Work Phone: 1(495)744-[address] [place], [place] 2417408-30-2022 10:42-0400 Systolic blood ugnhvwws373 mm[Hg]MD Jeff Terrell Work Phone: 1(039)254-[address] [place], [place] 2417408-30-2022 10:01-0400 Inhaled oxygen flow rate3 L/min Jeff Terrell Work Phone: 1(993)[facility]-[address] [place], [place] 2417408-30-2022 08:29-0400 Body afxjcd279.96 cmMD Jeff Terrell Work Phone: 1(677)[address]26 [address]08-30-2022 08:29-0400 Body tizsis011.18 kgMD Jeff Hoy Work Phone: 1(051)781-[address] [place], [place] 2417408-11-2022 10:12-0400 Diastolic blood ybohocpn33 mm[Hg]Ronak Zumbar [facility]08-11-2022 10:12-0400Heart rate70 /minZachary Zumbar [facility]08-11-2022 10:12-0400Mean blood ouyiverz86 mm[Hg]Ronak Rao [facility]08-11-2022 10:12-0400 Respiratory rate16 /minZamaria eugenia Rao [facility]08-11-2022 10:12-0400 Systolic blood qsmcesnv270 mm[Hg]Ronak Rao [facility]07-25-2022 10:30-0400Body heightJustin Davida Other [employer] Other 07-25-2022 10:30-0400Body mass index (BMI) [Ratio] 37.23 kg/u6Spjjyy Davida Other [employer] Other 07-25-2022 10:30-0400Body sljagj484.54 kgJustin Davida Other [employer] Other 06-01-2022 13:00-0400Body heightJustin Davida Other [employer] Other 05-04-2022 15:00-0400Body heightJustin Davida Other [employer] Other 05-04-2022 15:00-0400Body mass index (BMI) [Ratio] 39.54 kg/g3Eskbhd Davida Other [employer] Other 05-04-2022 15:00-0400Body .71 kgJustin Davida Other [employer] Other 04-20-2022 09:15-0400Body heightJustin Davida Other [employer] Other 04-20-2022 09:15-0400Body mass index (BMI) [Ratio] 39.54 kg/k5Bqodbdmarlon Higuera Other [facility] [employer] Other 04-20-2022 09:15-0400Body .71 kgJustrolly Higuera Other [facility] [employer] Other Encounters Encounter DateEncounter TypeCare ProviderFacilityStart: 07-23-2025 End: 43-14-8638abnaklazglXflhbqz HoyFacility:YIMI BellevueStart: 07-23-2025 End: 04-21-2916Mamlgta encounter procedureMicmatthewl R NILL [phone]-TqakeMer[facility] Rosanky Start: 05-09-2025 End: 84-30-4406qxwdbsrbgoIwauw M. LueFacility:TEAGAN [place]kyStart: 05-09-2025 End: 33-62-2963Dxjpxru encounter procedurePatito Sweet [facility] Start: 05-07-2025 End: 57-55-2460Kapizqq encounter procedurePatito Martinez MD-Ultrasound [facility] [place] Work Phone: Start: 05-07-2025 End: 11-33-0149vpafoktmbrDgtrfdp M Hoy MD Work Phone: [facility] Work Phone: Start: 02-05-2025 End: 92-79-6487wyvmoomcqrPkuztqdsrEast [facility] Hospital Work Phone: Start: 02-05-2025 End: 39-74-2354Ynktudh encounter procedureM[facility] GroupC[facility] Work Phone: Start: 01-13-2025 End: 33-18-3898gkwrrhmkobHues T AMESFacility:[facility] Start: 01-02-2025 End: 94-90-6542Ytqlkc flowsheetClive [facility]usk [facility] PA Work Phone: NOMS SWS DERMStart: 01-02-2025 End: 39-56-4245Uzkuem flowsKiraSaint John's Regional Health Center PA Work Phone: [facility] SWS DERMStart: 01-02-2025 End: 43-01-7763Khtwlq outpatient new 45 minutesRyainsley Rusk [facility] PA Work Phone: NOXQ SWS DERMComment on above:Other rosacea (Primary Dx); Melanocytic nevus of trunk; Capillary angioma; Lentigo simplex; Seborrheic keratosis; Inflamed seborrheic keratosisStart: 01-02-2025 End: 94-39-9103btzrakunyeVPUSW NORTHEIMNot AvailableStart: 11-12-2024 End: 30-18-9834zdaauvbpvdQPFTTOCCleveland Clinic Foundation Start: 11-08-2024 End: 54-61-3933jzoeojwpsoGbcfa M. LueFacility:EU SanduskyStart: 11-07-2024 ambulatorySelect Medical TriHealth Rehabilitation Hospitaltart: 11-06-2024 End: 94-47-3530Mbvlanv encounter procedureJeff Terrell MD Work Phone: [facility] [place] Work Phone: Start: 11-06-2024 End: 81-92-8964tusasezkfeRoacxew M Hoy MD Work Phone: [facility] Work Phone: Start: 11-01-2024 End: 25-18-4622rrztsgjedeARDNQTACleveland Clinic Foundation Start: 93-99-0619osohkrdvacWYWNQBNCleveland Clinic Foundation Start: 10-25-2024 End: 02-06-0843Ukzhzi Robert Paredes DPM Work Phone: NOBJ DE PODStart: 10-25-2024 End: 31-72-4912Bonvzw flowsheetNicholas A Brown DPM Work Phone: noms DE PODStart: 10-25-2024 End: 27-20-0485Axpqfg outpatient visit 15 minutesNicholas A Brown DPM Work Phone: noms DE PODComment on above:Paronychia, toe, left (Primary Dx); Paronychia, toe, right; Plantar fasciitis; Peroneal tendinitis, rightStart: 10-25-2024 End: 89-99-4337hzbxtbmueoKKVFWNIP A BROWNNot AvailableStart: 10-11-2024 End: 18-50-7881Eymxad flowsheetNicholas A Brown DPM Work Phone: noMS DE PODStart: 10-11-2024 End: 03-86-4720Tauove flowsheetNicholas A Brown DPM Work Phone: NOMS DE PODStart: 10-11-2024 End: 47-97-0317Cmants outpatient visit 15 minutesNicholas A Brown DPM Work Phone: noMS DE PODComment on above:Paronychia, toe, left (Primary Dx); Paronychia, toe, right; Plantar fasciitis; Peroneal tendinitis, right; Contracture of right ankleStart: 10-11-2024 End: 23-93-6026lqgoeexubdSSKGCHAW Hussain PAREDESNot AvailableStart: 09-27-2024 End: 54-46-1192Ivhqku flowsheetNicholas A Brown DPM Work Phone: NOMS DE PODStart: 09-27-2024 End: 65-68-5880Fcqqjr flowsheetNicholas A Brown DPM Work Phone: NOMS DE PODStart: 09-27-2024 End: 48-42-9137Ddqwpo outpatient visit 15 minutesNicholas A Brown DPM Work Phone: NOMS DE PODComment on above:Paronychia, toe, left (Primary Dx); Paronychia, toe, right; Plantar fasciitis; Peroneal tendinitis, right; Contracture of right ankleStart: 09-27-2024 End: 01-63-8473ruptqsqocnTACIAANK Hussain PAREDESNot AvailableStart: 09-20-2024 End: 16-38-0688Kbeeud flowsheetNicholas A Brown DPM Work Phone: NOMS DE PODStart: 09-20-2024 End: 64-62-8420Wdgqao flowsheetNicholas A Brown DPM Work Phone: noMS DE PODStart: 09-20-2024 End: 38-55-3512Iviulc outpatient visit 15 minutesNiceric A Brown DPM Work Phone: noMS DE PODComment on above:Paronychia, toe, left (Primary Dx); Paronychia, toe, right; Pain due to onychomycosis of toenails of both feet; Plantar fasciitisStart: 09-20-2024 End: 46-49-1726nvdphmdkngJYOCKQPU A LENANot AvailableStart: 09-11-2024 End: 98-43-7184Zynxzf outpatient visit 15 minutesNicdagoas A Brown DPM Work Phone: noMS DE PODComment on above:Paronychia, toe, left (Primary Dx); Paronychia, toe, rightStart: 09-11-2024 End: 33-40-4691Hxwbvu flowsannamarieNicdagoas A Brown DPM Work Phone: NOMS DE PODStart: 09-11-2024 End: 02-41-9219Hptsas flowsheetNicholas A Brown DPM Work Phone: noMS DE PODStart: 09-11-2024 End: 77-03-6479kfmbociwlkXKETINWR A BROWNNot AvailableStart: 08-26-2024 End: 45-59-8660Mpigry flowsheetNicholas A Brown DPM Work Phone: noms DE PODStart: 08-26-2024 End: 53-09-1611Dqizrd flowsheetNiceric A Lena DPM Work Phone: noms DE PODStart: 08-26-2024 End: 58-61-8397Orqqga outpatient visit 25 minutesNiceric Paredes DPM Work Phone: noms DE PODComment on above:Paronychia, toe, left (Primary Dx); Paronychia, toe, rightStart: 08-26-2024 End: 38-34-0676rclzafuqklHPBSYFGU A BROWNNot AvailableStart: 08-20-2024 End: 40-21-0219Vxedigfe Result EncounterNicdagoas Hussain Paredes DPM Work Phone: noms External Department UnsolicitedStart: 08-20-2024 End: 81-01-2156Lptoistk Result EncounterNicholas A Lena DPM Work Phone: noms External Department UnsolicitedStart: 08-20-2024 End: 41-91-9274Wrgcblo encounter procedureMD Jeff Terrell Work Phone: [facility]-Electrodiagnostics Work Phone: Start: 08-20-2024 End: 56-38-0567eytpippxcfJT Jeff Martinez Hozan Work Phone: [facility] Work Phone: Start: 08-05-2024 End: 56-70-4318Slwjut flowsheetNicdagoas A Brown DPM Work Phone: noms [place] PODStart: 08-05-2024 End: 89-56-6927Projxg flowsheetNicholas A Brown DPM Work Phone: noms [place] PODStart: 08-05-2024 End: 79-55-0020usixiboyjuKUGBXRAD A BROWNNot AvailableStart: 08-05-2024 End: 39-72-4692Byngwn outpatient new 30 minutesNiceric A Lena DPM Work Phone: NOKK DE PODComment on above:Pain due to onychomycosis of toenails of both feet (Primary Dx); Plantar fasciitis; Paronychia, toe, left; Paronychia, toe, rightStart: 07-08-2024 End: 52-31-3289xsbzeyyhkvVC Jeff M Hoy Work Phone: [facility] Work Phone: Start: 07-08-2024 End: 71-89-9184Pwwdsvvvza RecurringMD Jeff Hoy Work Phone: [facility] [place]Start: 06-12-2024 End: 15-39-1266uwkvwblrnjZP Jeff M Hoy Work Phone: [facility] Work Phone: Start: 06-12-2024 End: 82-27-1432Qobudxh encounter procedureMD Jeff Hoy Work Phone: [facility] Work Phone: Start: 64-67-8054Ulaxvwplst RecurringMD Jeff Hoy Work Phone: [facility]-Physical Therapy [place]: 05-20-2024 End: 93-16-2713wrbobhzqxwFT Jeff M Hoy Work Phone: [facility] Work Phone: Start: 05-20-2024 End: 67-87-4558Zwpbtma encounter procedureMD Jeff Hoy Work Phone: [facility] Work Phone: Start: 05-09-2024 End: 90-48-3249Cmhmwac encounter procedurePatito Sweet [facility] Start: 05-07-2024 End: 34-20-3414iqvihnhedjKT Jeff M Hoy Work Phone: [facility] Work Phone: Start: 05-07-2024 End: 67-22-4028Bpzbshr encounter procedureMD Jeff Hoy Work Phone: [facility]-Ultrasound [facility] [place] Work Phone: Start: 04-29-2024 End: 90-26-7284vrzyjkuvigAD Jeff M Hoy Work Phone: [facility] Work Phone: Start: 04-29-2024 End: 99-35-0948Fyzozeh encounter procedureMD Jeff Hoy Work Phone: [facility] Work Phone: Start: 03-13-2024 End: 09-12-0859vpfsthizreHT Jeff M Hoy Work Phone: [facility] Work Phone: Start: 03-13-2024 End: 99-08-3714Pxkunhp encounter procedureMD Jeff Hoy Work Phone: [facility] Work Phone: Start: 03-13-2024 End: 92-99-2015argxoibivcWE Jeff M Hoy Work Phone: [facility] Work Phone: Start: 03-13-2024 End: 64-88-4435Fsiscmd encounter procedureMD Jeff Hoy Work Phone: [facility] Start: 02-19-2024 End: 74-16-4626ucecnsnmwuAL Jeff M Hoy Work Phone: [facility] Work Phone: Start: 02-19-2024 End: 04-76-9358Xilnsnk encounter procedureMD Jeff Hoy Work Phone: [facility] Work Phone: Start: 33-43-2103Ufe-patient / Non-[facility] Work Phone: Start: 02-01-2024 End: 36-66-9512hbwwujhxtqFC Jeff M Hoy Work Phone: [facility] Work Phone: Start: 02-01-2024 End: 27-90-2409Zyftfgr encounter procedureMD Jeff Hoy Work Phone: [facility] Work Phone: Start: 01-10-2024 End: 20-59-8444rdnwskslffVM Jeff M Hoy Work Phone: [facility] Work Phone: Start: 01-10-2024 End: 38-49-2942Tchkriv encounter procedureMD Jeff Hoy Work Phone: [facility] Work Phone: Start: 12-06-2023 End: 45-29-5277mtltfpbgntWP Jeff M Hoy Work Phone: [facility] Work Phone: Start: 12-06-2023 End: 62-67-3934Spdpihd encounter procedureMD Jeff Hoy Work Phone: [facility] Work Phone: Start: 12-04-2023 End: 03-37-7871vkzwxqjxdlCU Jeff M Hoy Work Phone: [facility] Work Phone: Start: 12-04-2023 End: 18-09-5189Xfaosyo encounter procedureMD Jeff Hoy Work Phone: [facility] Work Phone: Start: 22-56-2331Bbjdxqqdwx RecurringMD Jeff Hoy Work Phone: [facility]-Physical Therapy [place]: 11-23-2023 End: 84-39-6543Juytomm encounter procedureMD Jeff Hoy Work Phone: [facility]-Lab [facility] [place] Work Phone: Start: 11-10-2023 End: 20-01-4436uczfawdymePsxisdf Calvjose a Other [employer] Other Start: 64-96-2285Wvcbumqmt for other preprocedural examinationColleen CalveyFPG [facility] OrthopedicsStart: 55-89-3915Jnkyit follow up visit related to original pxColleen CalveyFPG [facility]icsStart: 11-03-2023 End: 96-93-5142Lcypduz encounter procedurePatito Sweet [facility] Start: 10-30-2023 End: 33-55-6289Vpetutfaf to same day surgery centerMD Jeff Hoy Work Phone: [facility]: 10-30-2023 End: 62-86-5243tgqufbuqmnPJ Jeff M Hoy Work Phone: [facility] Work Phone: Start: 10-25-2023 End: 55-65-2184decxcilvgiJbhbkat Calvjose a Other [employer] Other Start: 34-34-5884Cwsexhzfd for other preprocedural examinationColleen CalveyFPG [facility] OrthopedicsStart: 36-67-9579Rybeco outpatient new 45 minutesColleen CalveyFPG [facility]icsStart: 10-25-2023 Telephone encounterColleen Katie [facility]icsStart: 10-25-2023 End: 38-50-0979Mnobkzw encounter procedureMD Jeff Hoy Work Phone: [facility] Work Phone: Start: 09-26-2023 End: 22-54-9812Zmgiqyshk to same day surgery [facility] Latisha ainsley [facility] Start: 09-20-2023 End: 53-24-9859wgzhuycjtmMtacdttu [place] Other [place] [employer] Other Start: 44-30-1072Nphapi outpatient visit 15 minutes Janine CaesarMATHIEU [facility]icsStart: 09-20-2023 End: 50-48-2363Bswbeww encounter procedureMD Jeff Hoy Work Phone: [facility] Work Phone: Start: 09-15-2023 End: 53-57-6900ovbrpmwdipKG Jeff M Hoy Work Phone: [facility] Work Phone: Start: 09-15-2023 End: 33-90-4592Ecqmmeg encounter procedureMD Jeff Hoy Work Phone: [facility] Work Phone: Start: 09-06-2023 End: 67-17-2413uiuaabfiuoQeqtbj Kelley Other [facility] [employer] Other Start: 50-44-7483Veyvck follow up visit related to original pxJustrolly GilletteG [facility]icsStart: 09-06-2023 End: 85-92-3853Linmsvl encounter procedureMD Jeff Hoy Work Phone: [facility]-[employer] [facility] [facility] Work Phone: Start: 08-29-2023 End: 23-49-6961Ekiptmbhd to same day surgery centerMD Jeff Hoy Work Phone: [facility]: 08-29-2023 End: 70-05-9767dtwktyomavMP Jeff M Hoy Work Phone: [facility] Work Phone: Start: 2023 End: 01-70-0275Cxgrqasgl department patient visitMD Jeff Hoy Work Phone: [facility]-Emergency Room Work Phone: Start: 46-90-3656Ysnvwlvfre RecurringMD Jeff Hoy Work Phone: [facility]-Physical Therapy [place]: 08-18-2023 End: 34-47-6345Ndmuorv encounter procedurePatito Sweet [facility] Start: 08-15-2023 End: 25-95-9343ulcrhohdvtOW Jeff M Hoy Work Phone: [facility] Work Phone: Start: 08-15-2023 End: 42-99-5122Ihtjqwh encounter procedureMD Jeff Hoy Work Phone: [facility]-Pre-Surgical Testing Work Phone: Start: 07-26-2023 End: 14-48-4749exahyliqqfEadyko Kelley Other [facility] [employer] Other Start: 17-76-1705Vityxa outpatient visit 25 minutes Gaurav [facility]icsStart: 07-24-2023 End: 26-99-6348lvrjozpazzBH Jeff M Hoy Work Phone: [facility] Work Phone: Start: 07-24-2023 End: 35-26-4861Dmdqohrvon RecurringMD Jeff Hoy Work Phone: [facility]-Physical Therapy [place]: 68-37-5321Dmztrwplqc RecurringMD Jeff Hoy Work Phone: [facility]-Physical Therapy [place]Start: 61-66-2662Dpxqqozujy RecurringMD Jeff Hoy Work Phone: [facility]-Physical Therapy [place]: 07-13-2023 End: 92-80-6992Azxivqk encounter procedureJENNIFER E HEIDY [facility] Start: 07-06-2023 End: 44-46-1140uwukzfphuiRslfhl Felter Other [employer] Other Start: 52-49-3837Rbavym outpatient visit 15 minutes Tomi Fernandez [facility] [place]Start: 06-30-2023 End: 09-73-0214ceciowqljwAizvhk Kelley Other [employer] Other Start: 12-63-7885Tmmyzl outpatient visit 25 minutes Gaurav GilletteG [facility]icsStart: 06-12-2023 End: 72-00-0565taxhtdyhjbWzimfm Davida Other [employer] Other Start: 90-51-5291Vrbdzj follow up visit related to original pxJustin NainG [facility]icsStart: 06-07-2023(Procedure) ShortThomas FelterErie [facility] CenterStart: 06-07-2023 End: 77-30-1745aprjwolaltRfhwwj Felter Other [employer] Other Start: 05-31-2023 End: 25-31-8052Fczwgmu encounter procedureLindatammi Sweet [facility] start: 27-85-8406Ivnvmjlre encounterThomas FelterFPG [facility]icsStart: 05-25-2023 End: 76-31-9688tvvvmdnysiFX Jeff M Hoy Work Phone: [facility] Work Phone: Start: 05-25-2023 End: 41-17-1020Ofkfqdd encounter procedureMD Jeff Hoy Work Phone: [facility] Start: 04-25-2023 End: 44-26-7692Immjquuko to same day surgery centerMD Jeff Hoy Work Phone: [facility] CampusStart: 04-25-2023 End: 85-83-6901ipnmqjujnaSX Jeff M Hoy Work Phone: [facility] Work Phone: Start: 03-31-2023 End: 56-35-6826xqiyvtulmkXO Jeff M Hoy Work Phone: [facility] Work Phone: Start: 03-31-2023 End: 62-71-6053Bekwfrk encounter procedureMD Jeff Hoy Work Phone: [facility]-Lab [facility] [place] Work Phone: Start: 03-24-2023 End: 16-93-1944vrpdbuvymbUsevwc Davida Other [employer] Other Start: 06-83-7681Ivulzhawi for other preprocedural examinationJustin NainG [facility]icsStart: 85-26-9435Obkvdc outpatient visit 25 minutesJustin DavidaFPG [facility]icsStart: 03-14-2023 End: 69-63-0505Grwptamlf to same day surgery centerMD Jeff Hoy Work Phone: [facility]-Surgery Center Main CampusStart: 03-14-2023 End: 87-15-5433czhbxfhbxyFM Jeff M Hoy Work Phone: [facility] Work Phone: Start: 36-99-3991ytkfsaeygcKO JEFF HARRISONY .Facility: Start: 02-28-2023 End: 85-64-0034qdqgewrdcpCR Jeff M Hoy Work Phone: [facility] Work Phone: Start: 02-28-2023 End: 40-27-8257Fswnkmq encounter procedureMD Jeff Hoy Work Phone: [facility]-Pre-Surgical Testing Work Phone: Start: 02-24-2023 End: 37-94-7896dfhstxtoqrVvoefz Davida Other [employer] Other Start: 41-10-1597Xwbemi outpatient visit 25 minutes Gaurav Mcduffie [facility]Start: 02-07-2023 End: 67-99-4161rzbmtmrfnqWnkbyq Haylee Other [employer] Other Start: 86-11-9557Dnkkkq outpatient visit 25 minutes Tomi Fernandez [facility] [place]Start: 30-16-4772Utcqtgdop encounter Tomi Navarrousky OrthopedicsStart: 02-01-2023 End: 79-71-5845ollxgobsglAqdvxy Davida Other [employer] Other Start: 84-77-1399Hpubqm outpatient visit 25 minutes Gaurav [facility]icsStart: 01-30-2023 End: 09-07-0044Cxehcmdxe department patient visitMD Jeff Terrell Work Phone: [facility]-Emergency Room Work Phone: Start: 01-16-2023 End: 38-10-2741Bdhslys encounter procedurePatito Sweet [facility] Start: 01-11-2023 End: 18-46-6246itplobefmqYUUZBECA GUIDOFacility:T0Krrmg: 92-79-7761Nhkreyaxd for preprocedural laboratory examinationPATITO SWEET .[facility] 01-06-2023 End: 26-00-3094Gjimyzu encounter procedureDokendy Hunterzan [facility] Start: 12-30-2022 End: 07-96-7527yqtxiyldngSWKHV M LUE .Facility:G5Zojiq: 12-30-2022 End: 89-54-6996Faaycepka for preprocedural laboratory examinationPATITO SWEET . Facility:Z9Nraos: 12-21-2022 End: 76-14-5548Oamdcnh encounter procedurePatito Sweet [facility] start: 12-14-2022 End: 53-02-3427mgboqtizyiHF MYRA V WESTFacility:S5Vvjfp: 11-29-2022 End: 52-99-0133Pigqgepsr to same day surgery centerMD Jeff Terrell Work Phone: [facility]-Surgery Center Main CampusStart: 11-29-2022 End: 98-28-3020sfobjwrbbgZV Jeff Terrell Work Phone: [facility] Work Phone: Start: 11-24-2022 End: 33-91-3604ugopuqaqexOxgqtj Felter Other [place] [employer] Other Start: 37-72-7691Ligdnd outpatient visit 25 minutes Tomi Fernandez [facility] [place]Start: 58-51-8734Lkpbzdegw encounter Tomi Fernandez [facility] [place]Start: 11-08-2022 End: 74-66-4311Iiphscr encounter procedurePritesh Kolb AMIE [facility] Start: 11-04-2022 End: 11-59-8829Wsqpydl encounter procedurePatito Sweet [facility] Start: 11-02-2022 End: 22-68-6505Egpjfxhvv to same day surgery centerMD Jeff Terrell Work Phone: [facility]-CT Scan [facility] [place] Work Phone: Start: 11-02-2022 End: 89-63-8976ddpnujetqnUY Jeff Terrell Work Phone: [facility] Work Phone: Start: 10-26-2022 End: 99-94-4339Knj Drop offPatito Sweet [facility] Start: 10-26-2022 End: 79-22-8954Qbtgkne encounter procedurePatito Sweet [facility] Start: 10-21-2022 End: 81-90-4791Atmcexy encounter procedurePatito Sweet [facility] Start: 10-21-2022 End: 51-35-5514swavdfuftbARVDGXJ BARROWSFacility:K6Jddwv: 10-05-2022 End: 69-57-6933xmqcuxcdxaZV STEVEN R ZIEBERFacility:Q6Ehkxg: 09-30-2022 End: 30-09-5934Xsyxifbxe to same day surgery centerMD Jeff Hoy Work Phone: [facility]: 09-30-2022 End: 04-51-7978vfrbmtpmioLN Jeff Juan Harrisonzan Work Phone: [facility] Work Phone: Start: 09-29-2022 End: 45-22-7829qgkofnryoaHK JEFF TERRELL .Facility:S0Nhckd: 09-28-2022 End: 40-10-2590jvludmfxezTZ STEVEN R ZIEBERFacility:V8Pdkof: 09-21-2022 End: 52-01-9553Jkw Drop offPatito Sweet [facility] Start: 09-21-2022 End: 68-34-1705Wryibvw encounter procedurePatito Sweet [facility] Rosanky start: 09-20-2022 End: 88-99-3133eislfzdxwmXP JEFF TERRELL .Facility:Y7Ocjfp: 08-29-2022 End: 53-32-4507mmevxxhrrlPclxag Felter Other [employer] Other Start: 81-64-1863Segcuuvyo encounterThomas FelterFPG [facility]icsStart: 08-23-2022 End: 94-88-8722Dlsgvzuhx to same day surgery centerMD Jeff Hoy Work Phone: [facility]-Surgery Center Main CampusStart: 08-23-2022 End: 54-10-0297ausweeucjzJX Jeff Martinez Hozan Work Phone: [facility] Work Phone: Start: 08-19-2022 End: 04-02-8115trqdrzpmnyKP Douglas M Hoy Work Phone: [facility] Work Phone: Start: 08-19-2022 End: 02-16-7871Ueepquk encounter procedureMD Jeff Terrell Work Phone: [facility]-Pre-Surgical Testing Start: 08-15-2022 End: 16-96-5051mkjctnzvejCuayjl Feltoni Other [employer] Other Start: 45-09-1939Ydncgz outpatient visit 25 minutes Tomi Fern[facility] [place]: 08-12-2022 End: 99-12-4553hkkfwiacspSZ Jeff Terrell Work Phone: [facility] Work Phone: Start: 08-12-2022 End: 24-68-4982Aiwzeyr encounter procedureMD Jeff Terrell Work Phone: [facility]-Pre-Surgical Testing Start: 08-11-2022 End: 33-00-0600wlhkqhvdzuIsxg Braun Other [facility] [employer] Other start: 59-78-6046Cucrvj outpatient new 30 minutesDaelpidio Fenton [facility] NeurosurgeryStart: 43-82-8821Apstpuonf encounterDale Ariel [employer] [facility] [facility] Referral CoordinatorStart: 08-10-2022 End: 74-95-2751Urqehpd encounter procedurePatito Sweet [facility] start: 08-08-2022 End: 90-63-0534choclswjarVgroif Felter Other [employer] Other Start: 72-76-6044Qepieqxbc encounterThomas FelterFPG [facility]icsStart: 08-03-2022 End: 37-75-2198cecylsusqpZV Jeff M Hozan Work Phone: [facility] Work Phone: Start: 08-03-2022 End: 31-05-3993Kkwetep encounter procedureMD Jeff Hozan Work Phone: [facility]-CT Scan [facility] [place] Start: 08-02-2022 End: 06-11-3267iymbpiqwhgWwqded Felter Other [employer] Other Start: 11-23-7637Gmrsbn outpatient visit 25 minutes Tomi Fernandez [facility] [place]: 07-26-2022 End: 88-61-0832Aebofckfo to same day surgery centerMD Jeff Hozan Work Phone: [facility]-Digestive HealthStart: 07-26-2022 End: 55-13-5150cvrdztcphnIG Jeff Martinez Hozan Work Phone: [facility] Work Phone: Start: 07-21-2022 End: 53-82-2162jditusxcauWkafxc Felter Other [employer] Other Start: 31-71-3239Doroofrkj encounterThomas FelterFPG [facility]icsStart: 07-18-2022 End: 30-30-5887Ktevwky encounter procedureZamaria eugenia Carlosumbar [facility] Start: 07-14-2022 End: 73-59-7669Juwgpbi encounter procedurePasusan Kartik SOLIZ [facility] Start: 07-12-2022 End: 00-58-2488Owojqao encounter procedureLindatammi Sweet [facility] Start: 06-27-2022 End: 24-99-7297psowzklgicDzvhyo Felter Other [employer] Other Start: 92-52-9429Oawkxe outpatient visit 25 minutes Tomi Fernandez [facility] [place]: 06-23-2022 End: 34-67-4301Uggk ManagementZasaint elizabeth edgewood Jalen [facility] Start: 06-22-2022 End: 34-36-1323Tghztku encounter procedureLindatammi Sweet [facility] [place] start: 06-14-2022(Procedure) ShortThomas Felter [facility] OutPtStart: 06-14-2022 End: 77-15-7431xrbeumxkonLxeccd Felter Other [employer] Other Start: 06-14-2022 End: 96-80-5358Qaqwidncy to same day surgery centerMD Jeff Terrell Work Phone: [facility]-Digestive HealthStart: 06-08-2022 End: 35-73-7605drbfkapwwbGQ JEFF TERRELL .Facility:K5Uvsmb: 05-26-2022 End: 39-26-0039ebcswmwdlaYaplxw Kelley Other [employer] Other Start: 25-24-1206Cgaievuzk encounterJustin TrevonosminCARLOSG [facility]icsStart: 05-26-2022 End: 78-31-1579Jwhmtre encounter procedureZachalindsey Talbotar [facility] Start: 05-26-2022 End: 71-30-5157Iqom ManagementZachalindsey Rao [facility] Start: 05-20-2022 End: 36-47-3189Wjstbtd encounter procedureMD Jeff Terrell Work Phone: [facility]Start: 05-09-2022 End: 72-17-2702qgudejhvgpUxhpkg Davida Other [employer] Other Start: 12-87-4406Judxin outpatient visit 25 minutes Gauravrolly Mcduffie [facility]Start: 05-09-2022 End: 19-13-0028Hbpfleb encounter procedureMD Jeff Terrell Work Phone: [facility] Start: 05-05-2022 End: 29-22-5033hdacvnhvtgEnyawf Davida Other [employer] Other Start: 74-75-4745Txufrxxxn encounterJustin NainG [facility]icsStart: 03-16-2022 End: 50-39-9011pfvvozqwumWclsji Davida Other [employer] Other Start: 10-80-7127Ubfmsh outpatient visit 15 minutes Gaurav Mcduffie [facility]icsStart: 02-21-2022(Procedure) ShortThomas FelterErie [facility] CenterStart: 02-21-2022 End: 07-46-1856rovkbvuvsrQfdebp Felter Other [employer] Other Start: 02-16-2022 End: 68-21-1340fjcwksgrwvZdlpst Davida Other [employer] Other Start: 93-23-7200Ebplov outpatient visit 15 minutes Gaurav DavidaFPG [facility]icsStart: 02-02-2022 End: 15-79-7179avzuiascnuXjagyq Davida Other [employer] Other Start: 31-78-1901Febzwf outpatient visit 15 minutes Gaurav DavidaFPG [facility]icsStart: 11-04-2021 End: 00-47-1706tpwghbdtelMcbclj Davida Other [employer] Other Start: 83-81-8191Dndcntpqh encounterJustin KelleyFPG [facility] Procedures DateProcedureProcedure DetailPerforming ClinicianStart: 32-90-8191Vdigdl abdominal X-rayJeff Terrell MD Work Phone: Start: 44-74-4924Gfewubmdbutffny of bilateral kidneys Jeff Terrell MD Work Phone: Start: 79-70-0091IGCBXSSUEBW SKIN LESIONRylee [facility] Work Phone: Start: 47-84-3285Qqyxg X-ray abdomenJeff Terrell MD Work Phone: Start: 81-01-4901Ibcpujfteoelodp of bilateral kidneys Jeff Terrell MD Work Phone: Start: 53-88-2928Ctclb metabolic panel calcium total Venkat Hussain Paredes DP Work Phone: Start: 64-92-4538Bjnmzhjp blood count with white cell differential, automatedNiceric Paredes DPM Work Phone: Start: 82-80-4226Bwgexhbzjc radiography of abdomenMD Jeff Hoy Work Phone: Start: 58-55-1858Zhkoxsqihxqqrey of bilateral kidneys Jeff Hoy Work Phone: [phone]: 61-16-6081B-ray of left kneeMD Jeff Hoy Work Phone: [phone]-art: 52-56-1476Bzjqgth of trigger fingerMD Jeff Hoy Work Phone: [phone]: 48-40-5288Ekczwrxpjpjgn cystoscopyKathy Lue Start: 67-13-8638Elqwk chest X-rayMD Jeff Hoy Work Phone: [phone]: 08-36-8898Ophxvaeyyfoyz of median nerveMD Jeff Hoy Work Phone: [phone]-art: 97-87-5818R-ray of cervical spineMD Jeff Hoy Work Phone: [phone]-art: 61-69-0340Gfbxjnjaotrjc of median nerveMD Jeff Hoy Work Phone: [phone]-: 87-01-3104Ipttzdgilrtea of median nerveMD Jeff Hoy Work Phone: [phone]-: 92-92-6840Ybhyj X-ray of left elbowMD Jeff Hoy Work Phone: [phone]-art: 69-70-5977WnkwxlaxboAX Jeff Hoy Work Phone: [phone]-art: 78-44-3676Flgatsnmlxh laser lithotripsy of ureteric calculusKathy Lue Start: 53-77-6438Jhbzjng microbial cultureMD Jeff Hoy Work Phone: [phone]-art: 49-45-4283Rgyldbdfc microbial cultureMD Jeff Hoy Work Phone: [phone]-art: 02-81-3026Zgdimmfmtfznr of transfusion reaction MD Jeff Terrell Work Phone: [phone]-art: 58-17-4756DK guided percutaneous therapeutic drainageMD Jeff Hoy Work Phone: [phone]-art: 92-45-4423YwoypsewqwRE Jeff Hoy Work Phone: [phone]-art: 24-89-8903Ahxgetecel radiography of abdomenMD Jeff Hoy Work Phone: [phone]-: 84-23-6257Zuooqrtnpyfjju shockwave lithotripsy of calculus of kidneyMD Jeff Hoy Work Phone: [phone]-: 27-84-6151Srzwlucemz radiography of abdomenMD Jeff Hoy Work Phone: [phone]-art: 25-49-3774Mlassotacoooum shockwave lithotripsy of calculus of kidneyKathy Lue Start: 91-12-0297Liprq chest X-rayMD Jeff Hoy Work Phone: [phone]-: 69-95-1740SJ of abdomen and pelvis without contrastMD Jeff Hoy Work Phone: [phone]-: 70-08-0437Cpnjacagcz radiography of abdomenMD Jeff Hoy Work Phone: [phone]-: 80-32-9676Igqmeehj injection of lumbar spine using fluoroscopic guidanceMD Jeff Hoy Work Phone: [phone]-: 59-17-9453ZclpazkobjGdlqu Lue Start: 12-30-8064Ztzzlfvvm of spinal epidural spaceMD Jeff Hoy Work Phone: [phone]-art: 27-89-1944JPR of lumbar spine with contrastMD Jeff Hoy Work Phone: [phone]-art: 66-02-7839C-ray of lumbar spine, four viewsMD Jeff Hoy Work Phone: [phone]-art: 88-59-6531Uwqevusf injection of cervical spine using fluoroscopic guidanceKathy Lue Comment on above:C6/[address] Bowles at [facility].Start: 78-92-6799Pgdvozsm injection of cervical spine using fluoroscopic guidanceZachary Zumbar start: 47-03-7748Vilnbirm injection of cervical spine using fluoroscopic guidanceZajanry Zumbar start: 22-78-6359KlrjyftcjtuXywcjfz NILL Start: 77-51-8594Rlfn structure, excluding neck (body structure)Ronak Rao comment [...] Plan of Treatment DateCare ActivityDetailAuthorStart: 01-02-2026 End: 07-85-6717Kaymfrv encounter amazqocjw64/20/2026 9:00 AM EDT Office Visit NOMBob LARIOS DERM [address] [place] [address] Clive Santiago PA [address] [place] [address] BRITTANY LARIOS DERMStart: 13-52-1455njbcyaqqffRuaiyhpqjg [place]: 01-02[place]20[place] End: 92-76-0453Ljyihwo encounter ajuiagnpe52/20/2025 9:10 AM EDT Office Visit BRITTANY LARIOS DERM [address] [address] [place] [address] Clive Santiago PA [address] [place] [address] ArrivedNOMS SWS DERMComment on above:ArrivedStart: 10-25-2024 End: 15-80-6864Evvlwyb encounter procedureNOMS SC PODComment on above: Paronychia, toe, left (Primary Dx); Paronychia, toe, right; Plantar fasciitis; Peroneal tendinitis, rightStart: 10-11-2024 End: 36-78-9049Eqeejtt encounter procedureNOMS SC PODComment on above: Paronychia, toe, left (Primary Dx); Paronychia, toe, right; Plantar fasciitis; Peroneal tendinitis, right; Contracture of right ankleStart: 09-27-2024 End: 75-76-8349Lqbyaoz encounter procedureNOMS SC PODComment on above: Paronychia, toe, left (Primary Dx); Paronychia, toe, right; Plantar fasciitisStart: 09-20-2024 End: 34-79-4648Gmhqqiq encounter procedureNOMS SC PODComment on above: Paronychia, toe, left (Primary Dx); Paronychia, toe, right; Pain due to onychomycosis of toenails of both feet; Plantar fasciitisStart: 09-11-2024 End: 07-80-7146Wdnlurr encounter procedureNOMS SC PODComment on above: Paronychia, toe, left (Primary Dx); Paronychia, toe, rightStart: 08-26-2024 End: 88-82-0231Virqgnv encounter procedureNOMS SC PODComment on above: Paronychia, toe, left (Primary Dx); Paronychia, toe, rightStart: 56-72-3636Wdjnojv referralAcmc Healthcare System Work Phone: Start: 48-96-9833S-ray of left kneeXR knee LT 3V - NOT FOR ER USELancaster Municipal Hospitaltart: 28-35-5468HW Knee - left 3 ViewsLancaster Municipal Hospitaltart: 50-27-6162CsgqohqlcLancaster Municipal Hospitaltart: 35-26-5341XklpjequbLancaster Municipal Hospitaltart: 62-96-4354AwnopbrofLancaster Municipal Hospitaltart: 74-72-5089MrxnepkacLancaster Municipal Hospitaltart: 01-37-9207OnuqzdpyiLancaster Municipal Hospitaltart: 27-09-8521LfwdxwrfbLancaster Municipal Hospitaltart: 58-03-8208RksamyyjoLancaster Municipal Hospitaltart: 70-11-1736FzhjplybnLancaster Municipal Hospitaltart: 02-12-3855UxnebwldaLancaster Municipal Hospitaltart: 57-53-2366WwqzpmtrpLancaster Municipal Hospitaltart: 27-93-9788Eqhglin CultureAerobic CultureLancaster Municipal Hospitaltart: 00-72-9763Qwyfxdggz CultureAnaeroc CultureLancaster Municipal Hospitaltart: 77-08-6108Oefqedbauln observation [Identifier] in Unspecified specimen by Gram stainGram StainTogus Va Medical Center Start: 16-28-0085ZitzrikpsLancaster Municipal Hospitaltart: 20-58-4017Rqspbtzum culture, body fluidLancaster Municipal Hospitaltart: 05-23-9381KO guided percutaneous therapeutic drainageLancaster Municipal Hospitaltart: 01-78-9881NqbijhlbrLancaster Municipal Hospitaltart: 08-23-2022 End: 37-13-4542AsywxktleLancaster Municipal Hospitaltart: 56-53-2505PbvazufhqLancaster Municipal Hospitaltart: 63-15-8014UsjknllswLancaster Municipal Hospitaltart: 95-77-7803Fshijczlf of spinal epidural spaceDH Epidural Transforaminal (Right) [facility] Hospitaltart: 06-14-2022 End: 27-05-5103Khtycuomc to same day surgery centerDeparted Surgical Day Care [facility]-Digestive HealthStart: 44-92-6396KBN of lumbar spine with contrastMR lumbar spine wo/w [facility] Start: 05-20-2022 End: 12-28-3068Dyttqhp encounter procedureDeparted ClinicalDoctors Hospital Ctr-MRI Main CampusBacteria identified in Unspecified specimen by Aerobe cultureTogus Va Medical CenterBacteria identified in Unspecified specimen by Anaerobe cultureTogus Va Medical CenterBilirubin measurementTogus Va Medical CenterBody weightTogus Va Medical CenterCalcium carbonate/Total in [facility] Calcium hydrogen phosphate dihydrate/Total in [facility] HospitalCalcium oxalate monohydrate/Total in [facility] HospitalCalcium phosphate levelTogus Va Medical CenterCalculus analysis with calculus photography [Interpretation] in [facility] HospitalCalculus analysis, qualitativeTogus Va Medical CenterCalculus analysis, quantitativeTogus Va Medical CenterCalculus analysis, quantitative, infrared spectroscopyTogus Va Medical CenterCellular material [Mass/mass] of Stone by EstimatedTogus Va Medical Center Cholesterol [Mass/volume] in Serum or PlasmaTogus Va Medical Center Cystine measurementTogus Va Medical CenterDetermination of calculus chemical compositionTogus Va Medical CenterEvaluation procedure [facility] CenterGlucose measurement estimated from glycated hemoglobinTogus Va Medical CenterHemoglobin A1c measurementTogus Va Medical CenterHydroxyapatite [Energy Difference] in 24 hour Urine [facility] CenterLaboratory data interpretationTogus Va Medical CenterNewberyite/Total in [facility] HospitalPatient EducationDoctors Hospital Ctr Work Phone: Patient referralDoctors Hospital Ctr Work Phone: Specimen source subject [Type][facility] Medical CenterTriamterene measurementTogus Va Medical CenterTriple phosphate/Total in [facility] HospitalXR Knee - left 3 Views [facility] Immunizations Immunization DateImmunizationNotesCare GkozmdgbYujbzrdc76-04-8595nzknwcv toxoid, reduced diphtheria toxoid, and acellular pertussis vaccine, adsorbedMD Jeff Harrisonzan Work Phone: T[facility] Va Medical CenterNEGATED: Highlighted row has not occurred!32-08-9683ELTW-CoV-2 mRNA (tozinameran 5y-11y) vaccineKathy Lue [facility] Payers DatePayer CategoryPayerPolicy [id number] (Managed Care) [id number] 2023Medicare [id number] 2.16.840.1.697309.3.57[id number] 2.16.840.1.839199.3.57[id number] 2.16.840.1.406150.3.57[id number] 2.16.840.1.466280.3.57[id number] 2.16.840.1.783334.3.57[id number] 2.16.840.1.665740.3.57[id number] 2.16.840.1.333090.3.579.2.22085-99-7869Pffumgj5962440 2.16.840.1.152387.3.579.2.32654-89-7113Amonbvg1028187 2.16.840.1.467955.3.57[id number] 2.16.840.1.580304.3.57[id number] 2.16.840.1.300191.3.57[id number] 2.16.840.1.943536.3.579.2.376314-97-2610Zfhlauk3510824 2.16.840.1.911466.3.57[id number] 2.16.840.1.509299.3.57[id number] 2.16.840.1.570790.3.579.2.491984-99-3221Ojcptsc6283824 2..840.1.606839.3.579.2.857107-05-2652Kxvslsf2310255 2..840.1.230503.3.579.2.093631-88-1602Vekvfzz6027788 2.16.840.1.434417.3.579.2.918185-86-0380Eiwpyjj9629114 2..840.1.848886.3.579.2.034726-26-2477Kcjxvrt58070719 2..840.1.697155.3.579.[id number] 2.16.840.1.250966.3.579.2.70564-00-4806Zwmmbyj81706341 2..840.1.713710.3.57[id number] 2.840.1.601775.3.579.2.727 [id number] 2.16.840.1.802256.19 [id number] 2.16840.1.482661.153619 [id number] 77-12-6729Zsraobu Health [id number] 82-51-4216Fxzb-[id number] 2.16.840.1.723474.19 UnknownAnthem /[id number]'s CompensationCare [employer] [place]-[id number] Social History DateTypeDetailFacilityUnknown if ever smokedSaint Charles [employer] Other Start: 08-05-2024 End: 34-70-6234Nti Assigned At Ampri[facility]Saint [facility] [employer] Other Start: 03-04-2021 End: 81-58-5938Sgeqjtn smoking statusNever smoked tobacco (finding)[facility] Work Phone: Start: 85-05-7312Kwv Assigned At [facility] CenterTobacco smoking statusNeverExecutive [facility] of [facility] BellevueTobacco smoking status NHISTobacco smoking consumption unknownNOMS HealthcareStart: 61-38-7038Qxomfq identityIdentifies as male gender (finding)NOMS HealthcareStart: 01-87-9433Lnidvu orientation Heterosexual (finding)NOMS HealthcareStart: 53-18-4416Ocgghaj use and exposure Smokeless tobacco non-userNOMS HealthcareStart: 08-05-2024 End: 47-04-1145Qnipfccig beverage intakeDeferNOMS HealthcareStart: 08-05-2024 End: 85-58-8628Efkphza of Social functionNOMS HealthcareStart: 01-03-2019 End: 92-71-6008YfmUkqc (finding)[facility] Hospitalexual OrientationExecutive [facility] of [facility] [place] NEGATED: Highlighted rowStart: NINFHistory of tobacco usePassive smokerNOMS Healthcare Medical Equipment Procedure CodeEquipment CodeEquipment Original TextEquipment IdentifierDates Cystoscopy, with ureteral calculus manipulation and stent placementPolymeric ureteral stent()[id number] FDAStart: 09-30-2022 Cystoscopy, with ureteral calculus manipulation and stent placementPolymeric ureteral stent()[id number] FDAStart: 11-29-2022 Arthroplasty, knee, total, minimally invasiveOrthopaedic cement, non-medicated ()[id number] FDAStart: 14-47-7800Mghwhmztdyvy, knee, total, minimally invasivePolyethylene patella prosthesis ()[id number])[id number] FDAStart: 68-20-9805Iqqarvpimkvi, knee, total, minimally invasiveUncoated knee tibia prosthesis, metallic ()[id number])[id number] FDAStart: 04-77-0718Zyxawyfifpmu, knee, total, minimally invasiveCoated knee femur prosthesis ()[id number](17)583637([id number] FDAStart: 19-96-9377Ixxhvgbcmukb, knee, total, minimally invasiveCoated knee femur prosthesis ()[id number](17)[id number])[id number] FDAStart: 91-01-7336Rgjvufbnfrov, knee, total, minimally invasiveTibial insert()[id number](17)[id number](88)[id number] FDAStart: 10-70-8312Hbevvmjgdygc, knee, total, minimally invasiveTibial insert ()[id number](17)[id number](63)[id number] FDAStart: 99-64-9321Uchvyoetyyyb, knee, total, minimally invasiveUncoated knee tibia prosthesis, metallic ()[id number](17)[id number]([id number] FDAStart: 79-93-6347Ykvebxgqgoqb, knee, total, minimally invasivePolyethylene patella prosthesis [id number])[id number])[id number] FDAStart: 99-81-1044LJHAHMSJHMPatito Jensen MD 09/26/23 Unknown Pelvis and GenitaliaFDAStart: 04-61-3338XKBRDAGVRQPatito Jensen MD 09/26/23 Unknown Pelvis and GenitaliaFDAStart: 09-26-2023 CYSTOSCOPY Patito Sweet MD 09/26/23 Unknown Pelvis and GenitaliaFDAStart: 51-31-5412ATELYYYKGWPatito Jensen MD 09/26/23 Unknown Pelvis and GenitaliaFDA Start: 62-18-3911TCXFDMGLOD Lue MD, Patito Good 09/26/23 Unknown Pelvis and GenitaliaFDAStart: 85-34-9151AEESFERONDPatito Jensen MD 09/26/23 Unknown Pelvis and GenitaliaFDAStart: 21-09-5237GRSKISKHNKPatito Jensen MD 09/26/23 Unknown Pelvis and GenitaliaFDAStart: 61-48-6623TAPYMWIJSSPatito Jensen MD 09/26/23 Unknown Pelvis and GenitaliaFDAStart: 98-59-0777KJJFAEMYRSPatito Jensen MD 09/26/23 Unknown Pelvis and GenitaliaFDAStart: 50-48-8673IKHFEOAXKIPatito Jensen MD 09/26/23 Unknown Pelvis and GenitaliaFDAStart: 09-26-2023 Goals DatePatient GoalDesired Activity/State Functional Status HzykGbaeepowssXinfrcLvzfqifb70-18-2847Higxxxepti StatusN/AExec[facility] of [facility]01-19-2024Functional StatusN/A[facility] of [place] 552762-11-2023Functional StatusNo [facility]11-03-2023Functional StatusN/A[facility]09-28-2023Functional StatusN/A[facility]08-16-2023Functional StatusN/A [facility]03-30-2023Functional StatusN/AFCl[facility]03-08-2023Functional StatusN/A[facility]01-20-2023Functional StatusN/A [facility]12-07-2022Functional StatusN/A[facility]10-26-2022 Functional StatusN/A[facility] 53-07-8226Leokcbwlfv StatusN/AExec[facility] Centery09-08-2022Functional StatusN/[facility]09-07-2022 Functional StatusN/A[facility] 86-17-2960Rlwhhilbqe StatusN/[facility] Clinical Notes 02-02-2022 to 07-23-2025 Note Date & FtwvQwsaFitbtamu47-22-9918 NoteGeneral Surgery Office/Clinic Note Chief Complaint consultation [...] Use, 05/26/2022 Never., 11/05/19 (more content not included)...[facility] Comment on above:Result Comment: Electronically Signed By: MARLA NAVARRO, Lima Aaron\Date and Time Signed: 07/23/25 14:39 BJX11-07-3916 Hospital Discharge instructions Patient Education 05/09/2025 11:15:12 Kidney Stones, Uzae-yf-Kndm Kidney Stones Kidney stones are rock-like masses [...] Follow these instructions at home: Medicines Take wojp-omj-gbxtrab and prescription medicines only as told by [...] provider. Document Revised: 05/26/2023 Document Reviewed: 05/26/2023 [email or web address] Patient Education 2023 [employer]. Follow Up Care 11/08/2024 12:00:41 With:Kee NAVARRO, RENATA Ghotra, URO Address: When: Unknown [facility] [place] 07-25-2025 NotePatient Education Urology Kidney Stones [...] these instructions at home: Medicines ??? Take twxh-hna-ytxxcjx and prescription medicines only as told by [...] Reviewed: 05/26/2023 Elsevier Patient Education ? 2023 Klarna.[facility] 05-07-2025 Radiology [facility]ASHT[facility] Main [place] [address] [place] [address] Ultrasound Report Signed Patient: Lima Loyd MR#: [id number] : 1965 Acct:[id number] Age/Sex: 59 / M ADM Date: 5 Loc: Room: Type: [facility] Attending Dr: Patito Sweet MD [...] Jr., D.OAlejo 05/07/2025 4:39 PM Dictation Location: [place] [address] Tech: Teressa Olmedo Transcribed By: ALDEN 05/07/25 1639 Dictated By: Abad Perez Jr, DO 05/07/25 1638 Signed By: 05/07/25 1639 [facility]03-20-2025 History of Present illness Narrative * JULIANNE [...] - Anterior, Right Upper Arm - Anterior [place] and brown stuck on verrucous scaly papule [...] limited to risks of scarring, darker or patient ambassador pigmentary changes, recurrence, incomplete removal and infection. [...] follow up for rosacea documented in this encounterSouthPointe HospitalVnusxurjsj57-51-5122 NotePatient: Lima Loyd Procedure Summary Date: 11/12/24 Room / Location: [facility] Main Operating Room Anesthesia Start: [...] PACU per anesthesia protocol. No notable events documented.[facility]01-28-2025 Note Airway Date/Time: 11/12/2024 12:22 PM Urgency: elective Airway not difficult General Information and Staff Patient location during procedure: OR Anesthesiologist: Clem Rosales MD Resident/WAREHOUSE SHIFT SUPERVISOR/CAA: Benja Canela MD Performed: resident/WAREHOUSE SHIFT SUPERVISOR/CAA Indications and Patient Condition Indications for airway management: anesthesia Spontaneous Ventilation: absent Sedation level: deep Preoxygenated: yes Mask difficulty assessment: 1 - vent by mask Planned trial extubation Final Airway Details Final airway type: supraglottic airway Successful airway: classic Size 4 Number of attempts at approach: 1 Ventilation between attempts: none Number of other approaches attempted: 0UnDayton [facility] 11-12-2024 NotePatient: Lima Loyd Procedure Information Anesthesia Start Date/Time: 11/12/24 1212 Scheduled providers: Shantel Becker MD; Clem Rosaels MD Procedure: BRONCHOSCOPY Location: [facility] Main Operating Room Relevant Problems [...] products. Plan discussed with attending. Additional Equipment RequestsCleveland Clinic Children's Hospital for Rehabilitation01-28-2025 Note H&P reviewed. The patient was examined and there are no changes to the H&P. Re-explained the procedure to the patient along with the associated risk of pneumothorax, bleeding, hypoxia, and respiratory failure. Patient is agreeable and will proceed with the scheduled bronchoscopy and EBUS Shantel Becker MD Interventional Pulmonary Medicine Pulmonary and Critical Care Medicine [facility]iciansC[facility]01-24-2025 NotePatient Education Nephrology Dietary Guidelines to Help [...] ? 8 oz (237 mL) of milk, egyncfk-tikxvalqrbfi-jyoxv milk, and calcium- fortifiedfruit juice. Calcium-fortified means [...] Spinach (cooked), rhubarb, beets, sweet potatoes, and Bruneian chard. ? Peanuts. ? Potato chips, venezuelan fries, and baked potatoes with skin on. ? Nuts and nut products. ? Chocolate. ??? If you regularly take a diuretic medicine, make sure to eat at least 1 or 2 servings of fruits or vegetables that are high in potassium each day. These include: ? Avocado. ? Banana. ? [place], prune, carrot, or tomato juice. ? Baked [...] fish oil, or vitamin B6. ??? Take zcip-ync-wldyjpz and prescription medicines only as told by your health (more content not included)...[facility]01-23-2025 Note Pulmonary Telehealth Visit Note Patient: Lima Loyd Age: 59 y.o. : 1965 Account No.: [id number] Referring physician: Dr. Terrell Chief complaint: Anterior [...] , PH , PHART , PHVEN , IWS6ZNI , EJT5KQO , EGG9ZQR , PO2POC , PO2ART , PO2VEN , AVN3OGG , BEN0DSN Radiology: CT scan personally reviewed and showed [...] was initiated by the patient and conducted ire-dswi-il-face with use of audio-only real time telephone communication between patient and provider for a virtual visit. Verbal consent to provide and bill for this service was obtained on 11/07/2024. Shantel Becker MD Interventional Pulmonary Medicine Pulmonary and Critical Care Medicine [facility]01-22-2025 Radiology Diagnostic study [facility]ASHTABULA [facility] Main [place] [address] [place] [address] Ultrasound Report Signed Patient: Lima Loyd MR#: [id number] : 1965 Acct:[id number] Age/Sex: 59 / M ADM Date: 5 Loc: Room: Type: [facility] Attending Dr: Patito Sweet MD [...] Perez Jr., D.O.11/06/2024 1:40 PM Dictation Location: [place] [address] Tech: Cindi Sanchez Transcribed By: ALDEN 11/06/24 1340 Dictated By: Abad Perez Jr, DO 11/06/24 1339 Signed By: 11/06/24 1340 [facility]01-16-2025 Note Attestation signed by Shantel Becker MD at 11/04/2024 11:16 AM I have seen and examined the patient. I reviewed the resident/fellow note and I agree with the findings and plan. Shantel Becker MD Interventional Pulmonary Medicine Pulmonary and Critical Care Medicine [facility] Visit Note Patient: Lima Loyd Age: 59 y.o. : 1965 Account No.: [id number] Referring physician: Dr. Terrell Chief complaint: Anterior [...] , PH , PHART , PHVEN , AKP0FUH , VYU5KFP , KYP8UAT , PO2POC , PO2ART , PO2VEN , BUB2VOQ , RWB4KKJ Radiology: No Chest X-ray results found for [...] CAT scan however we touched base with [facility] and we were able to obtain imaging, [...] Monsalve MD Pulmonary and Critical Care Fellow [facility] 10/31/24 2:41 PMUnDayton Children's Hospital01-10-2025 History of Present illness Narrative* Venkat [...] . Venkat Paredes DPM documented in this encounterSouthPointe HospitalLovzxdsqot70-64-6507 History of Present illness Narrative* Venkat Paredes, [...] History: Past Medical History: Diagnosis Date Hypertension ([facility]) Medications: Current Outpatient Medications: cyclobenzaprine (Flexeril) 10 [...] injection Venkat Paredes DPM documented in this [facility]12-13-2024 History of Present illness Narrative* Venkat Paredes [...] History: Past Medical History: Diagnosis Date Hypertension ([facility]) Medications: Current Outpatient Medications: cyclobenzaprine (Flexeril) 10 [...] diagnosis. Venkat Paredes DPM documented in this encounterSouthPointe HospitalHgduzlzhpt73-37-1482 History of Present illness Narrative* Venkat Paredes DPM - 09/20/2024 9:10 AM EST Patient: Lima Loyd : 1965 [...] History: Past Medical History: Diagnosis Date Hypertension ([facility]) Medications: Current Outpatient Medications: cyclobenzaprine (Flexeril) 10 [...] up Venkat Paredes DPM documented in this [facility]11-27-2024 History of Present illness Narrative* Venkat Paredes [...] History: Past Medical History: Diagnosis Date Hypertension ([facility]) Medications: Current Outpatient Medications: cyclobenzaprine (Flexeril) 10 [...] week Venkat Paredes DPM documented in this encounterSouthPointe HospitalZftcmqwbkk52-80-5342 History of Present illness Narrative* Venkat Paredes [...] risks, alternatives, benefits, post op complications and assisted expectations were discussed including but not limited to: infection,bone infection,wound dehiscence hardware failure and irritation,wound dehiscence,delay union/mal union/non union of bone. RSDS,neuroma,duty limitations,DVT/PE, [place],nerve damage, scar, loss of sensation, swelling. Pt [...] (date)08/26/24 Venkat Paredes DPM documented in this encounterSouthPointe HospitalHnmwzzohvf40-33-9244 History of Present illness Narrative* Venkat Paredes [...] History: Past Medical History: Diagnosis Date Hypertension ([facility]) Medications: Current Outpatient Medications: cyclobenzaprine (Flexeril) 10 [...] thickness digits 1 through 10 Patient received mgwe-dmp-etmrxpq inserts with power steps today and begin wearing daily Patient to continue with oral anti - inflammatories as needed for pain and recommended OTC medications such as tylenol or Ibuprofen Discussed conservative and surgical treatment options for patient today including postoperative time frame and surgical procedure in detail. Patient may continue with conservative treatments including rpeh-yjj-pffdacg anti- inflammatories and other treatments suggested today. Patient may want to be s cheduled for surgical intervention in the near future. Patient has total permanent nail avulsions in the near future with removal of nails had surgery Center and will need preop and have Ultram for postop pain Venkat Paredes DPM documented in this encounterSouthPointe HospitalWmuitkqefs93-80-8576 Hospital Discharge instructions Patient Education 05/09/2024 10:36:01 [...] include: ?8 oz (237 mL) of milk, iaxlkxq-kzvwpisciysa-pfbuw milk, and calcium- fortifiedfruit juice. Calcium-fortified means [...] ?Spinach (cooked), rhubarb, beets, sweet potatoes, and Bruneian chard. ?Peanuts. ?Potato chips, venezuelan fries, and baked potatoes with skin on. ?Nuts and nut products. ?Chocolate. If you regularly take a diuretic medicine, make sure to eat at least 1 or 2 servings of fruits or vegetables that are high in potassium each day. These include: ?Avocado. ?Banana. ?[place], prune, carrot, or tomato juice. ?Baked potato. [...] magnesium, fish oil, or vitamin B6. Take yujp-hyx-mxxvzty and prescription medicines only as told by [...] Casseroles. Pizza. Lasagna. Frozen meals. Potato chips. Afghan fries. The items listed above may not [...] provider. Document Revised: 01/12/2023 Document Reviewed: 01/12/2023 [email or web address] Patient Education 2022 [employer]. Follow Up Care 11/03/2023 10:48:01 With:Kee NAVARRO, RENATA Ghotra, URO Address: When: Unknown [facility] 07-15-2024 Hospital Discharge instructionsAmbulatory Orders* Referral to Neurology Time Frame: 04/29/24, Location: [facility] Work Phone: [phone] 346-580001-26-2024 Evaluation note* Encounter Date Diagnosis Assessment Notes Treatment Notes Treatment Clinical Notes Oct, Finger mass, right (ICD-10 - R22 .31) Oct,re-op exam (ICD-10 - Z01.818) [employer] Other 01-19-2024 Hospital Discharge instructions Patient Education [...] urethra. Follow these instructions at home: Take usxw-owz-frptrdh and prescription medicines only as told by [...] provider. Document Revised: 04/20/2022 Document Reviewed: 04/20/2022 [email or web address] Patient Education 2022 Klarna. Follow Up Care 09/26/2023 15:07:03 With:Kee NAVARRO, RENATA Ghotra, URO Address: When:Within 6 Month(s) Comments:britany/CHANTEL and [facility] 01-10-2024 Evaluation note* Encounter Date Diagnosis [...] local anesthesia. Oct,re-op exam (ICD-10 - Z01.818) [employer] Other 12-12-2023 Evaluation + Plan noteExtracted from:Title: [...] 24 hrs., # 30 tab(s), Refills(s) 0, Pharmacy:[facility] [id number], 188, cm, 05/31/23 8:37:00 EDT, Height/Lengt... potassium CITRATE 10 mEq ER Tab: 10 mEq, 1 tab(s), Oral, BID, 180 tab(s), Refill(s) 3, [facility] [id number], 188, cm, 08/18/23 10:17:00 EDT, Height/Length Dosing, [...] list: All Problems Anxiety / SNOMED CT 28905262 / Confirmed Arthritis / SNOMED CT 6584346 / Confirmed BPH with urinary obstruction / SNOMED CT 5328884146 / Confirmed Cervical radiculopathy / SNOMED CT 342178879 / Confirmed Depression / SNOMED CT 51882120 / Confirmed ED (erectile dysfunction) / SNOMED CT 9815400203 / Confirmed Gross hematuria / SNOMED CT 906041782 / Confirmed History of prostatitis / SNOMED CT 1573424692 / Confirmed HTN (hypertension) / SNOMED CT 6418809401 / Confirmed Insomnia / SNOMED CT 179988967 / Confirmed Kidney stone / SNOMED CT 311503807 / Confirmed Lumbar radiculopathy / SNOMED CT 225997276 / Confirmed Poor short term memory / SNOMED CT 024577440 / Confirmed Prostatitis / SNOMED CT 32063087 / Confirmed Renal cyst / SNOMED CT 5361920397 / Confirmed Shoulder impingement syndrome / SNOMED CT 081172591 / Confirmed Thoracic spondylosis / SNOMED CT 9373872112 / Confirmed Tobacco use / SNOMED CT 718403881 / Confirmed Tremor / SNOMED CT 32524338 / Confirmed UTI (urinary tract infection) / SNOMED CT 787743710 / Confirmed Venous insufficiency / SNOMED CT 864702535 / Confirmed Resolved: Hematoma / SNOMED CT 2183811657 Canceled: Balanitis / SNOMED CT 17802767 Canceled: Erectile dysfunction / SNOMED CT 6469527531 Canceled: Gross hematuria / SNOMED CT 269925764 Canceled: Lesion of bladder / SNOMED CT 699093200 Canceled: Renal hematoma / SNOMED CT 342278693 Histories Past Medical History: Resolved Hematoma (8236314339): Resolved. Procedure history: Holmium Laser/Lt Stent Exchange ([id number]) on 11/29/2022 at 57 Years. ESWL of kidney ([id number]) on 08/23/2022 at 56 Years. Cystoscopy (66075209) on 07/12/2022 at 56 Years. Epidural injection of cervical spine using fluoroscopic guidance ([id number]) on 08/17/2018 at 52 Years. Comments: 06/09/2022 13:10 Danny Maradiaga RN C6/[address] Bowles at [facility]. Epidural injection of cervical spine using fluoroscopic guidance (6844511664) on 05/26/2017 at 51 Years. Epidural injection of cervical spine using fluoroscopic guidance ([id number]) on 09/16/2016 at 51 Years. Back- titanium cage L4-L5 (402763095) in 2000 at 36 Years. Comments: 06/23/2022 12:26 Danny Maradiaga RN lumbar fusion Total knee replacement (4126045463). bilateral Total knee replacement (7879965778). Social History Social & Psychosocial Habits Alcohol [...] significant abnormalities noted.. ECG interpretation: NSR. Plan [place] [employer] Anesthesiologists (ASA) physical status classification: Class III. Anesthetic Preoperative Plan: Anesthesia General.Addendum by Clyde Rivera Jr., DO on September 26, 2023 10:11 ESTMallampati 3 Future Appointments Appointment Date:11/03/2023 10:15:00 AM Scheduled Provider:Patito Sweet MD Location:[facility] Appointment Type:URO Office Visit [facility]12-12-2023 Hospital Discharge instructions Patient Education 09/26/2023 11:02:55 Post Op Patient Instructions - FT (Custom) (CUSTOM) 09/26/2023 10:47:43 Lue - Urolift Post-Op Instructions (CUSTOM) [facility] [place], [place] Post-Operative Instructions for UroLift After your [...] Up Care 08/18/2023 11:39:29 With:Patito Sweet Address: [facility] [address] [phone] Business (1) When: Unknown Comments:Call for followup appointment in 1 month with [facility]12-06-2023 Evaluation note* Encounter Date Diagnosis Assessment [...] in the office today and providing supervision. [employer] Other 11-22-2023 Evaluation note* Encounter Date Diagnosis [...] as documented in the electronic medical record. [employer] Other 10-11-2023 Evaluation note* Encounter Date Diagnosis [...] pinky finger as well as weakness of waist cutter. Physical exam findings have also been discussed. [...] particular, poorhealing. I have advised against the terminal operator use of narcotic pain medication. I [...] mass index [BMI]40.0-44.9, adult (ICD-10 - Z68.41) [employer] Other 09-28-2023 Hospital Discharge instructions Patient Education [...] Follow these instructions at home: Medicines Take gzxv-edo-rnzlghx and prescription medicines only as told by [...] important. Where to find more information [employer] [place] of Diabetes and Digestive and Kidney Diseases: [...] depends on the type of prostatitis. Take mkmk-vhs-pqphddq and prescription medicines only as told by [...] provider. Document Revised: 11/06/2020 Document Reviewed: 11/06/2020 [email or web address] Patient Education 2022 Klarna. Follow Up Care 07/13/2023 09:28:59 With:JNAINE MOODY PA-C, URL Address: [address] [place] [address] When: Unknown Comments:follow up with JEFFERY hernandez [facility] 09-21-2023 Evaluation note* Encounter Date Diagnosis [...] Jun,OtherAbove note written by Germain Bowles MA, Gate Keeper. Edited and approved by Dr. Tomi Leach MD. [facility] [employer] Other 09-15-2023 Evaluation note* Encounter Date Diagnosis [...] as documented in the electronic medical record. [employer] Other 08-28-2023 Evaluation note* Encounter Date Diagnosis [...] may need to discuss symptoms with Dr. eLach for a cervical spine work up. May,Other specified postprocedural states (ICD-10 - Z98.890) May,ontusion of left elbow, initial encounter (ICD-10 - S50.02XA) May,ody mass index [BMI]40.0-44.9, adult (ICD-10 - Z68.41) May,OtherSee orders for this visit as documented in the electronic medical record. [employer] Other 08-16-2023 Hospital Discharge instructions Patient Education [...] urethra. Follow these instructions at home: Take ukly-mth-vdmxuhp and prescription medicines only as told by [...] provider. Document Revised: 04/20/2022 Document Reviewed: 04/20/2022 [email or web address] Patient Education 2022 Klarna. Follow Up Care 05/10/2023 14:32:19 With:Kee NAVARRO, Patito Good URJesse, URO Address: When: Unknown Comments:sched Cysto [facility] 06-09-2023 Evaluation note* Encounter Date Diagnosis [...] as documented in the electronic medical record. [employer] Other 05-25-2023 Hospital Discharge instructions Follow Up Care 03/09/2023 11:30:53 With:Kee NAVARRO, RENATA Ghotra, URO Address: When: Unknown Comments:Sched UroLift [facility] [place] 05-12-2023 Evaluation note* Encounter Date Diagnosis Assessment [...] of pinch strength in approximately 6 weeks, waist cutter strength recovery at about 12 weeks, and [...] healing. I have advised against the terminal operator use of narcotic pain medication. I [...] understands these risks and wishes to proceed. [employer] Other 05-01-2023 Hospital Discharge instructions Additional Instructions [...] medications as prescribed. You may take NSAIDs/Tylenol ssoc-bsi-zcwudwx as indicated on the bottle. Follow-up in office as scheduled, approximately one week after surgery. Call the office with any questions or concerns. Dr. Gaurav Higuera [facility] [address] [place], [place] [id number] [facility] Work Phone: [phone] 600-195404-25-2023 Evaluation note* Encounter Date Diagnosis Assessment Notes [...] Jan,OtherAbove note written by Lakshmi Lorenzo LPN, Gate Keeper. Edited and approved by Dr. Tomi Leach MD. [facility] [employer] Other 04-19-2023 Evaluation note* Encounter Date Diagnosis [...] patient in office today. Prior medical notes [facility] ED and historyhave been reviewed. At this [...] of pinch strength in approximately 6 weeks, waist cutter strength recovery at about 12 weeks, and [...] as documented in the electronic medical record. [employer] Other 04-03-2023 Evaluation + Plan noteExtracted from:Title: EU Local Cysto w/ L Stent Removal - FTAuthor:Patito Sweet MDDate:01/16/23 Patient: LIMA LOYD Age: 57 years Sex: Male : 1965 Associated Diagnoses: None Author: Patito Sweet MD Procedure Operative Information Details: Date/ Time: 01/16/2023 08:56:00. Pre-Op Dx: Foreign body in bladder (QLA62-DR T19.1XXA, Billing Diagnosis, Medical), Kidney stone (LGH47-VF N20.0, Discharge, Medical). Post-Op Dx: Same. Anesthesia [...] Date:03/09/2023 10:15:00 AM Scheduled Provider:Patito Sweet MD Location:[facility] Appointment Type:URO Office Visit [facility]04-03-2023 Hospital Discharge instructions Patient Education 01/16/2023 08:53:16 [...] Up Care 01/12/2023 09:39:17 With:Patito Sweet Address: [address] [place] [place] [phone] Business (1) [facility] Rui Roberts [address] [phone] Business (1) When: Unknown Comments:Office to schedule follow up in 6-8 wks with renal US, KUB and metabolic stone workup [facility]03-08-2023 Hospital Discharge instructions Patient Education 12/21/2022 08:06:14 Kidney Stones, Ekgz-xn-Jemg Kidney Stones Kidney stones are rock-like masses [...] Follow these instructions at home: Medicines Take bumn-ptk-ttdnndv and prescription medicines only as told by [...] 03/20/2009 Document Revised: 02/18/2020 Document Reviewed: 02/18/2020 [email or web address] Patient Education 2019 Klarna. Follow Up Care 11/30/2022 15:07:22 With:Kee NAVARRO, RENATA Ghotra, URO Address: When: Unknown [facility] [place] 02-09-2023 Evaluation note* Encounter Date Diagnosis [...] I will prescribe a temporary supply of [place] 5-325 up to twice daily as needed. OARRS was processed and reviewed, no discrepencies. Risks and side effects of this medication was discussed in detail with the patient who voiced understanding. Additionally, Flexeril was refilled today. We will follow up with the patient after his upcoming procedure. Nov,Other chronic pain (ICD-10 - G89.29) Nov,OtherAbove note written by Germain Bowles MA, Gate Keeper. Edited and approved by Dr. Tomi Leach MD. [employer] Other 02-09-2023 Evaluation note* Encounter Date Diagnosis Assessment Notes Treatment Notes Treatment Clinical Notes Nov, Right flank pain (ICD-10 - R10.9 ) [employer] Other 01-19-2023 Hospital Discharge instructions Patient Education [...] include: ?Spinach. ?Rhubarb. ?Beets. ?Potato chips and venezuelan fries. ?Nuts. If you regularly take a diuretic medicine, make sure to eat at least 1 2 fruits or vegetables high in potassium each day. These include: ?Avocado. ?Banana. ?Cibola, prune, carrot, or tomato juice. ?Baked potato. [...] Casseroles. Pizza. Lasagna. Frozen meals. Potato chips. Afghan fries. Summary You can reduce your risk [...] 01/27/2012 Document Revised: 01/22/2020 Document Reviewed: 09/12/2017 [email or web address] Patient Education 2020 Klarna. Follow Up Care 11/03/2022 11:32:52 With:Patito Sweet MD, URL, URO Address: When: Unknown [facility] 01-11-2023 Evaluation + Plan note Diagnostic Tests Pending * Urine Culture 10/26/22 [facility]12-19-2022 Hospital Discharge instructions Follow Up Care 10/03/2022 10:36:41 With:Patito Sweet MD, URL, URO Address: When: Unknown [facility] 12-07-2022 Hospital Discharge instructions Patient Education 09/21/2022 [...] include: ?Spinach. ?Rhubarb. ?Beets. ?Potato chips and venezuelan fries. ?Nuts. If you regularly take a diuretic medicine, make sure to eat at least 1 2 fruits or vegetables high in potassium each day. These include: ?Avocado. ?Banana. ?[place]ib[place], prune, carrot, or tomato juice. ?Baked potato. [...] Casseroles. Pizza. Lasagna. Frozen meals. Potato chips. Afghan fries. Summary You can reduce your risk [...] 01/27/2012 Document Revised: 01/22/2020 Document Reviewed: 09/12/2017 [email or web address] Patient Education 2020 Klarna. Follow Up Care 08/25/2022 10:58:56 With:Kee NAVARRO, RENATA Ghotra, URO Address: When:1 month [facility] 10-31-2022 Evaluation note* Encounter Date Diagnosis [...] Jul,therAbove note written by Lakshmi Lorenzo LPN, Gate Keeper. Edited and approved by Dr. Tomi Leach MD. [employer] Other 10-27-2022 Evaluation note* Encounter Date Diagnosis Assessment Notes Treatment Notes Treatment Clinical Notes Jul, Neck pain (ICD-10 - M54.2) Jul,History of lumbar fusion (ICD-10 - Z98.1) Jul,Inflammation of right sacroiliac joint (ICD-10 - M46.1) Jul,pinal stenosis of lumbar region, unspecified whether neurogenic claudication present (ICD-10 - M48.061)This gentleman had a lumbar fusion L4-5 20 years ago in [place]. Over the last year he has been [...] reevaluate him in 4 to 5 weeks. [employer] Other 10-26-2022 Hospital Discharge instructions Patient Education [...] Follow these instructions at home: Medicines Take xsyr-vtg-uczyinl and prescription medicines only as told by [...] 09/29/2001 Document Revised: 09/14/2018 Document Reviewed: 10/18/2017 [email or web address] Patient Education 2019 Klarna. Follow Up Care 07/28/2022 15:43:12 With:Kee NAVARRO, RENATA Ghotra, URO Address: [address] [place] [phone] When: Unknown [facility] 10-18-2022 Evaluation note* Encounter Date Diagnosis Assessment [...] Jul,therAbove note written by Lakshmi Lorenzo LPN, Gate Keeper. Edited and approved by Dr. Tomi Leach MD. [employer] Other 10-06-2022 Evaluation note* Encounter Date Diagnosis Assessment Notes Treatment Notes Treatment Clinical Notes Jul, Other spondylosis wi th radiculopathy, lumbar region (ICD-10 - M47.26) [employer] Other 09-27-2022 Hospital Discharge instructions Patient Education [...] including vitamins, herbs, eye drops, creams, and kpfw-zqk-yfnscwh medicines. Any problems you or family members [...] provider tells you to take them. ?Taking yuao-pov-jwobmop medicines, vitamins, herbs, and supplements. Follow instructions [...] Follow these instructions at home: Medicines Take wxzr-uaw-toutajq and prescription medicines only as told by [...] 09/29/2001 Document Revised: 09/24/2019 Document Reviewed: 09/24/2019 [email or web address] Patient Education 2020 Klarna. Follow Up Care 06/22/2022 13:16:22 With:Kee NAVARRO, RENATA Ghotra, URO Address: [address] [place] [phone] When:Within 4 Week(s) Comments:w/ CT w/o contrast [facility] 09-12-2022 Evaluation note* Encounter Date Diagnosis Assessment [...] not wish for this to be a terminal operator prescription. OARRS was processed and reviewed, no discrepencies. He signed an opioid contract with us today in office. Anatomy of spine disc ussed in detail with patient in regards to patients condition. 12 Jun,ther low back pain (ICD-10 - M54.59) Jun,ther chronic pain (ICD-10 - G89.29) Jun,therAbove note written by Germain Bowles MA, Gate Keeper. Edited and approved by Dr. Tomi Leach MD. [employer] Other 09-07-2022 Hospital Discharge instructions Patient Education 06/22/2022 10:48:00 Kidney Stones, Yujq-jk-Czsu Kidney Stones Kidney stones are rock-like masses [...] Follow these instructions at home: Medicines Take puki-kox-ygosozq and prescription medicines only as told by [...] 03/20/2009 Document Revised: 02/18/2020 Document Reviewed: 02/18/2020 [email or web address] Patient Education 2020 Klarna. Follow Up Care 06/09/2022 14:30:01 With:Kee NAVARRO, RENATA Ghotra, URO Address: When: Unknown [facility] 07-25-2022 Evaluation note* Encounter Date Diagnosis [...] refer to Anton Leach for possible injections. [employer] Other 06-01-2022 Evaluation note* Encounter Date Diagnosis [...] pain of left hip (ICD-10 - M25.552) [employer] Other 05-04-2022 Evaluation note* Encounter Date Diagnosis [...] injection to be done at same time. [employer] Other 04-20-2022 Evaluation note* Encounter Date Diagnosis [...] (BMI 35.0-39.9 without comorbidity) (ICD-10 - E66.9) [employer] Other Evaluation + Plan note Future Appointments Appointment Date:06/23/2022 12:00:00 PM Scheduled Provider:Ronak Rao MD Location:[facility] App[facility] Future Appointments Appointment Date:06/23/2022 12:00:00 PM Scheduled Provider:Ronak Rao MD Location:[facility] Appointment Type:Pain Management - Follow Up (FT) Appointment Date:07/12/2022 08:30:00 AM Scheduled Provider:Patito Sweet MD Location:[facility] Appointment Type:URO Procedure 15 min [facility] evaluation + Plan note Future Appointments Appointment Date:07/12/2022 08:30:00 AM Scheduled Provider:Patito Sweet MD Location:[facility] Appointment Type:URO Procedure [facility] Future Appointments Appointment Date:07/18/2022 02:00:00 PM Scheduled Provider: Location:.MRI Appointment Type:MRI Spine (FT) Appointment Date:07/29/2022 10:00:00 AM Scheduled Provider:Jennifer Kauffman PA-C Location[facility] Appointment Type:Pain Management - Follow Up (FT) Appointment Date:08/10/2022 10:00:00 AM Scheduled Provider:Patito Sweet MD Location:[facility] Appointment Type:URO Office Visit Future Scheduled Tests Radiology* MRI Spine Thoracic w/o Contrast 07/18/22 [facility] Evaluation + Plan note Future Appointments Appointment Date:07/18/2022 02:00:00 PM Scheduled Provider: Location:.MRI Appointment Type:MRI Spine (FT) Appointment Date:07/29/2022 10:00:00 AM Scheduled Provider:Jennifer Kauffman PA-C [facility] Type:Pain Management - Follow Up (FT) Appointment Date:08/10/2022 10:00:00 AM Scheduled Provider:Patito Sweet MD Location:[facility] Appointment Type:URO Office Visit Diagnostic Tests Pending * Urine Cytology ([facility]) 07/14/22 Future Scheduled Tests Radiology* MRI Spine Thoracic w/o Contrast 07/18/22 [facility] Evaluation + Plan note Future Appointments Appointment Date:07/29/2022 10:00:00 AM Scheduled Provider:Jennifer Kauffman PA-C [facility] Type:Pain Management - Follow Up (FT) Appointment Date:08/10/2022 10:00:00 AM Scheduled Provider:Patito Sweet MD Location:[facility] Appointment Type:URO [facility] Future Appointments Appointment Date:11/02/2022 09:30:00 AM Scheduled Provider:Patito Sweet MD Location:[facility] Appointment Type:URO Office Visit Diagnostic Tests Pending * Hemoglobin and Hematocrit 09/21/22 [facility] evaluation + Plan note Future Appointments Appointment Date:11/02/2022 09:30:00 AM Scheduled Provider:Patito Sweet MD Location:[facility] Appointment Type:URO Office Visit Diagnostic Tests Pending * Urine Culture 09/21/22 [facility] Future Appointments Appointment Date:11/02/2022 01:20:00 PM Scheduled Provider:Lima GUTIÉRREZ MD Location:[facility] Appointment Type:[place] [address] Diagnostic Tests Pending * Urine Culture 10/21/22 [facility] Evaluation + Plan note Future Appointments Appointment Date:11/07/2022 10:00:00 AM Scheduled Provider: Location:[facility] Appointment Type:URO Nurse Visit [facility] Evaluation + Plan note Future Appointments Appointment Date:11/11/2022 01:00:00 PM Scheduled Provider: Location:[facility] Appointment Type:URO Nurse Visit [facility] Evaluation + Plan note Future Appointments Appointment Date:08/18/2023 10:00:00 AM Scheduled Provider:Patito Sweet MD Location:[facility] Appointment Type:URO Office Visit [facility] evaluation + Plan note Future Appointments Appointment Date:09/12/2023 07:45:00 AM Scheduled Provider: Location:[facility] Appointment Type:Surgery CALL PAT FT Appointment Date:09/26/2023 09:30:00 AM Scheduled Provider: Location:[facility] Appointment Type:Surgery FT Diagnostic Tests Pending * Basic Metabolic Panel 08/11/23 [facility] evaluation + Plan note Future Appointments Appointment Date:05/09/2024 10:00:00 AM Scheduled Provider:Patito Sweet MD Location:[facility] Appointment Type:URO Office Visit Diagnostic Tests Pending * Basic Metabolic Panel 11/03/23 [facility] Evaluation + Plan note Future Appointments Appointment Date:11/08/2024 11:00:00 AM Scheduled Provider:Patito Sweet MD Location:[facility] Appointment Type:URO Office Visit [facility] evaluation + Plan note Future Appointments Appointment Date:11/07/2025 11:00:00 AM Scheduled Provider:Patito Sweet MD Location:[facility] Appointment Type:URO Office Visit [facility] Evaluation noteNo InformationNorth [employer] Other Evaluation noteNo assessment information available [facility] Work Phone: Evaluation note* Diagnosis Onset Date Resolution Status Left carpal tunnel syndrome acute [facility] Work Phone: Evaluation note* Diagnosis Onset Date Resolution Status Cubital tunnel syndrome acuteLeft lateral epicondylitisacuteOther specified postprocedural statesacute [facility] Work Phone: Evaluation note* Diagnosis Onset Date Resolution Status Cubital tunnel syndrome acuteLeft lateral epicondylitisacuteOther specified postprocedural statesacute Mass of fingeracuteOther specified postprocedural statesacuteRight hand pain acuteTrigger finger, right middle fingeracute [facility] Work Phone: Evaluation note* Diagnosis Onset Date Resolution Status Cubital tunnel syndrome acuteLeft lateral epicondylitisacuteOther specified postprocedural statesacute Mass of fingeracuteOther specified postprocedural statesacuteRight hand pain acuteTrigger finger, right middle fingeracuteMass of fingeracuteOther specified postprocedural statesacuteTrigger finger, right middle fingeracute [facility] Work Phone: Evaluation note* Diagnosis Onset Date Resolution Status Cubital tunnel syndrome acuteLeft lateral epicondylitisacuteOther specified postprocedural statesacute Mass of fingeracuteOther specified postprocedural statesacuteRight hand pain acuteTrigger finger, right middle fingeracuteMass of fingeracuteOther specified postprocedural statesacuteTrigger finger, right middle fingeracuteCervical arthritisacuteChronic painacuteNeuropathyacuteSacroiliitis, not elsewhere classifiedacute [facility] Work Phone: Evaluation note* Diagnosis Onset Date Resolution Status Mass of finger acuteOther specified postprocedural statesacuteTrigger finger, right middle fingeracuteCervical arthritisacuteChronic painacuteNeuropathyacuteSacroiliitis, not elsewhere classifiedacute [facility] Work Phone: Evaluation note* Diagnosis Onset Date Resolution Status Mass of finger acuteOther specified postprocedural statesacuteTrigger finger, right middle fingeracuteCervical arthritisacuteChronic painacuteNeuropathyacuteSacroiliitis, not elsewhere classifiedacutePrimary osteoarthritis of left kneeacutePrimary osteoarthritis of right kneeacuteS/P total knee arthroplastyacute [facility] Work Phone: Evaluation note* Diagnosis Onset Date Resolution Status Cervical arthritis acuteChronic painacuteNeuropathyacuteSacroiliitis, not elsewhere classifiedacute Primary osteoarthritis of left kneeacutePrimary osteoarthritis of right knee acuteS/P total knee arthroplastyacuteNeuropathyacutePrimary osteoarthritis of left kneeacutePrimary osteoarthritis of right kneeacuteS/P total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
[2025-08-13 07:47] VITALS: BP 113/49; PULSE 68; TEMP 36.6; O2SAT 92
[2025-08-13 08:02] VITALS: BP 116/58; PULSE 76; O2SAT 93
[2025-08-13 08:16] VITALS: BP 137/76; PULSE 74; O2SAT 95
== END 2025-08-13 08:17 | disposition home or self-care (01) ==
LOC: SURGOUT 06:09
PROVIDERS: PCP Family Medicine; Visit Provider Surgery
PROC: (CPT 45385; principal; 2025-08-13 07:30)
DX: Z12.11 Encounter for screening for malignant neoplasm of colon (principal); D12.2 Benign neoplasm of ascending colon; I10 Essential (primary) hypertension; M54.16 Radiculopathy, lumbar region; Z87.442 Personal history of urinary calculi; F41.9 Anxiety disorder, unspecified; F32.A Depression, unspecified; N40.0 Benign prostatic hyperplasia without lower urinary tract symptoms; E66.01 Morbid (severe) obesity due to excess calories; Z68.41 Body mass index [BMI] 40.0-44.9, adult; Z96.659 Presence of unspecified artificial knee joint; K21.9 Gastro-esophageal reflux disease without esophagitis; M19.90 Unspecified osteoarthritis, unspecified site
CPT/HCPCS: 45385; 88305; J2704